=== PATIENT | male | born 1955 | race Caucasian/White ===

== ENCOUNTER 2021-07-31 11:10 | Inpatient (IN) | payer OTHER ==
[~2021-07-31] VITALS: Ht 188 cm; Wt 92.6 kg
[2021-07-31] VITALS (18 sets, daily range): BP systolic 95–112; BP diastolic 47–74
--- NOTE | 2021-07-31 11:30 | NUR ---
Around 1100, patient admitted to ICU by EMS with a blood pressure of 98/47, heart rate of 63, temp 97.6, respiratory rate of 27 and O2 saturation of 97%. No belongings present with patient upon admission. Orders received, will continue to monitor.
[2021-07-31 12:07] LABS: BASE EXCESS ABG 3 mmol/L (-3-3); HCO3 ABG 27 mmol/L (21-28); PCO2 ABG 39 mmHg (35-46); PO2 ABG 91 mmHg (65-108); SAT O2 ABG 97 % (92-99)
[2021-07-31 12:09] LABS: FIO2 ABG 100/AC24 450 100 +8
[2021-07-31] MEDS ORDERED: MIDAZOLAM HCL/PF 5 MG/5 ML VIAL. IVP PRN (12:15)
[2021-07-31] MEDS ORDERED: POLYVINYL ALCOHOL 1.4% OPHTH SOLUTION 15ML BOTTLE. OU PRN (12:15)
[2021-07-31] MEDS ORDERED: VECURONIUM BOLUS 10 MG VIAL. IV PRN (12:15)
[2021-07-31] MEDS ORDERED: IV NORMAL SALINE 500ML BAG 500 ML IV PRN (12:15)
[2021-07-31] MEDS ORDERED: ATROPINE 0.5 MG/5 ML DISP.SYRINGE. IV PRN (12:15)
--- NOTE | 2021-07-31 12:16 | CONS ---
DATE OF CONSULTATION: 07/31/2021 PULMONARY CONSULTATION ATTENDING PHYSICIAN: Lawson Dangelo MD REASON FOR CONSULTATION: Respiratory failure, COVID-19 pneumonia, ARDS. HISTORY OF PRESENT ILLNESS: The patient is a 65-year-old male who has past medical history of pneumonia and possible fibrosis. The patient was brought into [facility] Emergency Room with complaint of shortness of breath and a cough and loss of taste and smell with nausea and vomiting. He was placed on a nonrebreather mask due to severity of hypoxia. He had bilateral infiltrates on his chest x-ray. His BNP was also elevated. The patient left against medical advice at that time. He then returned to the Emergency Department later. He was noted to be severely hypoxic with room air saturation of 61%. The patient was initially tried on noninvasive ventilation and was subsequently intubated. He waited for 24 hours before finding a bed at [facility] ICU. The patient is now transferred to our facility. He was tested positive for COVID. His chest x-ray reviewed, it shows diffuse bilateral interstitial infiltrates. I also reviewed the patient's CT chest, which was done on 07/29. The patient has diffuse bilateral infiltrates. There are areas of emphysematous changes, worse in the upper lobes. There are some ground glass infiltrates. There is some pleural thickening on the right side. There is tiny pleural effusion on the right lower lobe. There is some component of fibrosis. No old x-rays are available on him. Consultation requested for further evaluation and management. His ABGs are pending. PAST MEDICAL HISTORY: Significant for pneumonia. Questionable underlying fibrosis. SURGERIES: None. ALLERGIES: None reported. REVIEW OF SYSTEMS: Unable to obtain from the patient. MEDICATIONS: Upon transfer were reviewed. SOCIAL HISTORY: Unable to obtain from the patient. PHYSICAL EXAMINATION: His vital signs were reviewed. His blood pressure in the 110s. Pulse ox is 98%. Currently sedated on mechanical ventilation. He is on assist control rate of 20, tidal volume 450, 100% FiO2 and 8 of PEEP. Visual exam done due to COVID-19. No paradoxical breathing. He is synchronized with the ventilator. No leg edema. No skin rash. LABORATORY DATA: Reviewed. His white cell count 18.4, hemoglobin 19.1 and platelets are normal. Total protein 5.8. His potassium 5.2, sodium 123. ABGs with a pH of 7.43, pCO2 of 43 and a pO2 of 72. IMPRESSION: 1. Acute hypoxic respiratory failure secondary to COVID-19 pneumonia, acute respiratory distress syndrome and possible underlying fibrosis and emphysema. 2. Abnormal CT chest with diffuse pulmonary infiltrates with some ground glass infiltrates as well as evidence of the emphysema. May have a component of underlying fibrosis as well. No pulmonary embolism seen. 3. Hyponatremia. 4. Suspected underlying severe chronic obstructive pulmonary disease. 5. COVID-19 viral pneumonia. RECOMMENDATIONS: 1. Discussed with respiratory therapist and RN. We will continue with present assist control mode. We will keep the tidal volume low. The patient is at high risk for pneumothorax due to emphysematous blebs, especially in the upper lobes. 2. Follow ABGs and make necessary adjustments. 3. Empiric antibiotics. 4. Dexamethasone. 5. SubQ heparin for DVT prophylaxis. 6. Stress ulcer prophylaxis. 7. The patient is too late for remdesivir. 8. The patient is critically ill. Prognosis is guarded. Chart reviewed, imaging studies reviewed. Total critical care time [address]: Miriam TID: [id number]
[2021-07-31 12:56] LABS: BASO # 0.1 x10^3/uL (0.0-0.2); BASO % 1 % (0-3); EOS % 0 % (0-3); HEMATOCRIT 39.5 % (36.0-47.0); HEMOGLOBIN 13.1 g/dL (12.0-15.5); LYMPH # 0.5 x10^3/uL (1.0-4.8); LYMPH % 3 % (24-48); MEAN CORPUSCULAR HEMOGLOBIN 29 pg (25-35); MEAN CORPUSCULAR HGB CONC 33 g/dL (31-37); MEAN CORPUSCULAR VOLUME 89 fL (79-100); MONO % 7 % (0-9); NEUT # 13.3 x10^3/uL (1.8-7.7); NEUT % 89 % (31-73); PLATELET COUNT 424 x10^3/uL (140-400); RED BLOOD COUNT 4.47 x10^6/uL (3.50-5.40); RED CELL DISTRIBUTION WIDTH 13.5 % (11.5-14.5); WHITE BLOOD COUNT 14.9 x10^3/uL (4.0-11.0)
[2021-07-31 13:21] LABS: CALCIUM 7.6 mg/dL (8.5-10.1); CREATININE 0.8 mg/dL (0.6-1.0); GFR 72.4; POTASSIUM 4.4 mmol/L (3.5-5.1)
[2021-07-31 13:31] LABS: % BANDS 5 % (0-9); % LYMPHS 2 % (24-48); % MONOS 9 % (0-10); % SEGS 84 % (35-66); PLT ESTIMATE INCREASED (ADEQUATE)
[2021-07-31] MEDS: MIDAZOLAM 100mg/100ml NS BAG 100 ML IV PRN (14:24)
[2021-07-31] MEDS: FAMOTIDINE 20 MG/2 ML VIAL IVP SCH ×2 (14:25→20:36)
[2021-07-31] MEDS: HEPARIN for SUB-Q USE 5,000 UNIT/ML VIAL. SQ SCH ×2 (14:25→20:38)
[2021-07-31] MEDS ORDERED: PIP/TAZO PER PHARMACY MC PRN (15:15)
[2021-07-31] MEDS: PROPOFOL 100 ML IV PRN ×2 (15:39→19:57)
[2021-07-31] MEDS: fentaNYL HIGH DOSE PCA 55 ML IV PRN (16:19)
[2021-07-31] MEDS: PIPERACILLIN/TAZOBACTAM 3.375 GM in IV NORMAL SALINE 50ML 50 ML IV SCH (18:22)
[2021-07-31] MEDS ORDERED: FAMOTIDINE 20 MG/2 ML VIAL IVP SCH (21:00)
[2021-08-01] VITALS (35 sets, daily range): BP systolic 91–110; BP diastolic 51–67
[2021-08-01] MEDS: PIPERACILLIN/TAZOBACTAM 3.375 GM in IV NORMAL SALINE 50ML 50 ML IV SCH ×5 (00:30→23:57)
[2021-08-01] MEDS: MIDAZOLAM 100mg/100ml NS BAG 100 ML IV PRN ×3 (00:50→23:55)
[2021-08-01] MEDS: PROPOFOL 100 ML IV PRN ×4 (02:24→20:56)
[2021-08-01] MEDS: HEPARIN for SUB-Q USE 5,000 UNIT/ML VIAL. SQ SCH ×3 (06:08→20:54)
--- NOTE | 2021-08-01 06:22 | RAD ---
Single view chest dated 08/01/2021 6:17 AM: COMPARISON: 07/31/2021 Clinical Indication: Intubation. Findings: Single upright portable exam of the chest was performed. Heart size is mildly enlarged. Endotracheal tube, nasogastric tube and right internal jugular catheter in place, unchanged. Complete opacificatio n the left lung, increased from prior study. There is patchy airspace disease in the right, unchanged . No pneumothorax. IMPRESSION: 1. Complete opacification of the left hemithorax, new from prior study. This could be related to muco us plugging or developing pleural effusion or interval progression of asymmetric airspace disease. Mi lder airspace disease on the right, stable. 2. Stable position of tubes and lines. Electronically signed by: Jose Santos MD (08/01/2021 6:19 AM) XAVIER
[2021-08-01 08:07] LABS: BASE EXCESS ABG 2 mmol/L (-3-3); HCO3 ABG 28 mmol/L (21-28); PCO2 ABG 51 mmHg (35-46); PO2 ABG 105 mmHg (65-108); SAT O2 ABG 98 % (92-99)
[2021-08-01] MEDS: FAMOTIDINE 20 MG/2 ML VIAL IVP SCH ×2 (08:21→20:53)
[2021-08-01] MEDS: DEXAMETHASONE SOD PHOS 4 MG/ML VIAL IVP SCH (08:22)
--- NOTE | 2021-08-01 09:47 | PN ---
DATE: 08/01/2021 SUBJECTIVE: The patient is continued to be sedated on Versed, Precedex and propofol. He is intubated, mechanically ventilated, maintaining his oxygen saturation at 96% on FiO2 of 100%. PHYSICAL EXAMINATION: GENERAL: When I examined him, he looked well and was clearly in no apparent respiratory distress. There is no pallor, jaundice, cyanosis. No lymphadenopathy, no thyromegaly, no jugular venous distention. No lower limb edema. VITAL SIGNS: His heart rate was 62, blood pressure was 98/59, temperature was 98, respiratory rate was 24 and oxygen saturation was 96% on FiO2 of 100%. HEAD, EYES, EARS, NOSE AND THROAT: Normocephalic, atraumatic. He has orotracheal and orogastric tube in place. Has a triple lumen catheter in the right internal jugular vein. HEART: Showed normal first and second heart sounds. No gallop or murmur. CHEST: Shows central trachea, equal bilateral chest expansion air entry, vesicular breath sounds. I could not appreciate any crepitation or rhonchi. ABDOMEN: Distended, soft, nontender. NEUROLOGIC: He is heavily sedated. His intake and output are incompletely recorded. LABORATORY DATA: Showed a white cell count 14,900, hemoglobin 13, hematocrit 39, MCV 89 and platelet count 424,000 with an automated differential showed 89% polymorphs, 3% lymphocytes, 7% monocytes. His chemistry showed his serum sodium has improved further to 131 mEq per liter, potassium 4.4, chloride 95, bicarbonate 29, anion gap of 7, BUN 19, creatinine 0.8. Estimated GFR was 72 mL per minute. His glucose was 131 and calcium was 7.6. His chest x-ray showed the patient has complete opacification of the left hemithorax, new from prior study, this could be related to mucus plugging or developing pleural effusion or interval progression of the asymmetric airspace disease; mild airspace disease on the right side, stable; stable position of the tubes and lines. ASSESSMENT: In summary, this is a 65-year-old male patient with: 1. Acute hypoxic respiratory failure. 2. COVID-19 pneumonia with possible superimposed community-acquired pneumonia. 3. Adult respiratory distress syndrome. 4. Possible underlying emphysema and pulmonary fibrosis. 5. Severe hyponatremia that is improving. 6. Chronic obstructive pulmonary disease. PLAN: Obviously to continue with sedation. Continue with IV antibiotic in the form of piperacillin, tazobactam. Continue with dexamethasone. Continue with heparin for DVT prophylaxis. KWAN DR: Vannessa TID: [id number]
[2021-08-01 09:53] LABS: FIO2 ABG 100% AC 24 400 7
--- NOTE | 2021-08-01 10:20 | PDOC ---
PULMONARY PROGRESS NOTES DATE: 08/01/21 TIME: 10:15 Subjective Remains on assist control mode. Oxygen requirement mildly improved. Sedated Vitals Vital Signs Date Time Temp Pulse Resp B/P (MAP) Pulse Ox O2 Delivery O2 Flow Rate FiO2 08/01/21 07:58 100 Ventilator 08/01/21 06:00 62 24 98/59 08/01/21 04:00 98.0 98.0 Comments Visual exam done due to COVID-19. No paradoxical breathing. No skin rash no leg edema Labs Laboratory Tests Test 07/31/21 11:50 07/31/21 12:45 07/31/21 18:10 08/01/21 07:55 O2 Saturation 97 % (92-99) 98 % (92-99) Arterial Blood pH 7.45 (7.35-7.45) 7.36 (7.35-7.45) Arterial Blood pCO2 at Patient Temp 39 mmHg (35-46) 51 mmHg (35-46) Arterial Blood pO2 at Patient Temp 91 mmHg (65-108) 105 mmHg (65-108) Arterial Blood HCO3 27 mmol/L (21-28) 28 mmol/L (21-28) Arterial Blood Base Excess 3 mmol/L (-3-3) 2 mmol/L (-3-3) FiO2 100/ac24 450 100 +8 100% ac 24 400 7 White Blood Count 14.9 x10^3/uL (4.0-11.0) Red Blood Count 4.47 x10^6/uL (3.50-5.40) Hemoglobin 13.1 g/dL (12.0-15.5) Hematocrit 39.5 % (36.0-47.0) Mean Corpuscular Volume 89 fL (79-100) Mean Corpuscular Hemoglobin 29 pg (25-35) Mean Corpuscular Hemoglobin Concent 33 g/dL (31-37) Red Cell Distribution Width 13.5 % (11.5-14.5) Platelet Count 424 x10^3/uL (140-400) Neutrophils (%) (Auto) 89 % (31-73) Lymphocytes (%) (Auto) 3 % (24-48) Monocytes (%) (Auto) 7 % (0-9) Eosinophils (%) (Auto) 0 % (0-3) Basophils (%) (Auto) 1 % (0-3) Neutrophils # (Auto) 13.3 x10^3/uL (1.8-7.7) Lymphocytes # (Auto) 0.5 x10^3/uL (1.0-4.8) Monocytes # (Auto) 1.0 x10^3/uL (0.0-1.1) Eosinophils # (Auto) 0.0 x10^3/uL (0.0-0.7) Basophils # (Auto) 0.1 x10^3/uL (0.0-0.2) Segmented Neutrophils % 84 % (35-66) Band Neutrophils % 5 % (0-9) Lymphocytes % 2 % (24-48) Monocytes % 9 % (0-10) Platelet Estimate Increased (ADEQUATE) Large Platelets Occ Sodium Level 131 mmol/L (136-145) Potassium Level 4.4 mmol/L (3.5-5.1) Chloride Level 95 mmol/L (98-107) Carbon Dioxide Level 29 mmol/L (21-32) Anion Gap 7 (6-14) Blood Urea Nitrogen 19 mg/dL (7-20) Creatinine 0.8 mg/dL (0.6-1.0) Estimated GFR (Cockcroft-Gault) 72.4 Glucose Level 131 mg/dL (70-99) Calcium Level 7.6 mg/dL (8.5-10.1) Glucose (Fingerstick) 140 mg/dL (70-99) Laboratory Tests Test 07/31/21 11:50 07/31/21 12:45 07/31/21 18:10 08/01/21 07:55 O2 Saturation 97 % (92-99) 98 % (92-99) Arterial Blood pH 7.45 (7.35-7.45) 7.36 (7.35-7.45) Arterial Blood pCO2 at Patient Temp 39 mmHg (35-46) 51 mmHg (35-46) Arterial Blood pO2 at Patient Temp 91 mmHg (65-108) 105 mmHg (65-108) Arterial Blood HCO3 27 mmol/L (21-28) 28 mmol/L (21-28) Arterial Blood Base Excess 3 mmol/L (-3-3) 2 mmol/L (-3-3) FiO2 100/ac24 450 100 +8 100% ac 24 400 7 White Blood Count 14.9 x10^3/uL (4.0-11.0) Red Blood Count 4.47 x10^6/uL (3.50-5.40) Hemoglobin 13.1 g/dL (12.0-15.5) Hematocrit 39.5 % (36.0-47.0) Mean Corpuscular Volume 89 fL (79-100) Mean Corpuscular Hemoglobin 29 pg (25-35) Mean Corpuscular Hemoglobin Concent 33 g/dL (31-37) Red Cell Distribution Width 13.5 % (11.5-14.5) Platelet Count 424 x10^3/uL (140-400) Neutrophils (%) (Auto) 89 % (31-73) Lymphocytes (%) (Auto) 3 % (24-48) Monocytes (%) (Auto) 7 % (0-9) Eosinophils (%) (Auto) 0 % (0-3) Basophils (%) (Auto) 1 % (0-3) Neutrophils # (Auto) 13.3 x10^3/uL (1.8-7.7) Lymphocytes # (Auto) 0.5 x10^3/uL (1.0-4.8) Monocytes # (Auto) 1.0 x10^3/uL (0.0-1.1) Eosinophils # (Auto) 0.0 x10^3/uL (0.0-0.7) Basophils # (Auto) 0.1 x10^3/uL (0.0-0.2) Segmented Neutrophils % 84 % (35-66) Band Neutrophils % 5 % (0-9) Lymphocytes % 2 % (24-48) Monocytes % 9 % (0-10) Platelet Estimate Increased (ADEQUATE) Large Platelets Occ Sodium Level 131 mmol/L (136-145) Potassium Level 4.4 mmol/L (3.5-5.1) Chloride Level 95 mmol/L (98-107) Carbon Dioxide Level 29 mmol/L (21-32) Anion Gap 7 (6-14) Blood Urea Nitrogen 19 mg/dL (7-20) Creatinine 0.8 mg/dL (0.6-1.0) Estimated GFR (Cockcroft-Gault) 72.4 Glucose Level 131 mg/dL (70-99) Calcium Level 7.6 mg/dL (8.5-10.1) Glucose (Fingerstick) 140 mg/dL (70-99) Comments Chest x-ray reviewed 08/01/2019 . There is worsening infiltrates and volume loss in the left lung. Likely combination of parenchymal lung disease and some component of mucous plugging. Impression . 1. Acute hypoxic respiratory failure secondary to COVID-19 pneumonia, acute respiratory distress syndrome and possible underlying fibrosis and emphysema. 2. Abnormal CT chest with diffuse pulmonary infiltrates with some ground glass infiltrates as well as evidence of the emphysema. May have a component of underlying fibrosis as well. No pulmonary embolism seen. May also have pneumatoceles related to COVID-19 3. Hyponatremia. 4. Suspected underlying severe chronic obstructive pulmonary disease. 5. COVID-19 viral pneumonia. Plan . Updated 08/01/2019 1. Discussed with respiratory therapist and RN. We will continue with present assist control mode. We will keep the tidal volume low. The patient is at high risk for pneumothorax due to emphysematous blebs, especially in the upper lobes. 2. Follow ABGs and make necessary adjustments. 3. Empiric antibiotics. 4. Dexamethasone. 5. SubQ heparin for DVT prophylaxis. 6. Stress ulcer prophylaxis. 7. The patient is too late for remdesivir. 8. Empiric antibiotics 9. chest x-ray from today reviewed. There is some component of mucous plugging in addition to the worsening parenchymal infiltrates. We will do tracheal suct ioning. And monitor chest x-rays. May consider bronchoscopy in future Discussed with RN and RT and Dr. Dangelo Total critical care time 30 mi RECOMMENDATIONS: 1. Discussed with respiratory therapist and RN. We will continue with present assist control mode. We will keep the tidal volume low. The patient is at high risk for pneumothorax due to emphysematous blebs, especially in the upper lobes. 2. Follow ABGs and make necessary adjustments. 3. Empiric antibiotics. 4. Dexamethasone. 5. SubQ heparin for DVT prophylaxis. 6. Stress ulcer prophylaxis. 7. The patient is too late for remdesivir. 8. The patient is critically ill. Prognosis is guarded. Chart reviewed, imaging studies reviewed. Total critical care time 39 minutes. MICHELLE KNOWLES MD Aug 01, 2021 10:20
--- NOTE | 2021-08-01 11:35 | NUR ---
SS following for discharge planning. SS reviewed pt chart and discussed with pt RN. Pt is currently on the vent at 90%. COVID19 positive. Pt on IV Decadron and IV Zosyn. Pt on Versed, Propofol, and Fentanyl. Not stable. SS will continue to follow for discharge planning. Addendum: 08/01/21 at 1137 by MARLENA NEELY SS Pt is from home.
--- NOTE | 2021-08-01 11:57 | HP ---
DATE OF SERVICE: 08/01/2021 ADMIT DATE: 07/31/2021 HISTORY OF PRESENT ILLNESS: The patient is a 65-year-old male patient who was seen at the Emergency Room of [facility] on 07/29/2021 with a complaint of shortness of breath. He stated also he has a nonproductive cough, loss of taste and smell together with nausea and vomiting. He was placed on a nonrebreather mask and due to hypoxia, he had bilateral infiltrate with hyponatremia, lactic acidosis and apparently he was also in congestive heart failure with markedly elevated BNP and leukocytosis indicating sepsis. The patient chose to sign against medical advice at that time; however, he returned to the Emergency Department with exacerbation of his symptoms; however, he denied any chest pain. By the time he arrived to the Emergency Room, his oxygen saturation was only 61%. He was again placed on a nonrebreather mask and his oxygen saturation has risen to 92-93%. He was extensively investigated in the Emergency Room and has had lab work and imaging studies. His lab work showed that he has marked leukocytosis with a white cell count of 19,000, thrombocytosis, arterial blood gases. On the showed a pH of 7.45, pCO2 of 31, pO2 of 58, bicarbonate 22 and oxygen saturation was 92% on FiO2 of 100%. On 07/30/2021, arterial blood gas showed a pH of 7.21, a pCO2 of 72, pO2 of 71, bicarbonate 29, oxygen saturation was 89% on FiO2 of 95%. His chemistry showed he has severe hyponatremia with a serum sodium of only 114 mEq per liter with lactic acidosis; however, his TSH and serum cortisol were well within the normal range. Apparently, his condition has steadily worsened and he was intubated and eventually he was transferred to [facility] ICU to continue mechanical ventilation. He has tested positive for COVID and his chest x-ray showed diffuse bilateral interstitial infiltrate. The CT scan of the chest done on 07/29 also showed diffuse bilateral infiltrate. There are areas of edematous changes, worse in the upper lobes. There are some ground glass infiltrates and pleural thickening on the right side. Tiny pleural effusion on the right lower lobe. There is some component of fibrosis; however, there are no old x-rays available for comparison. PAST SURGICAL HISTORY: Significant for chronic obstructive pulmonary disease. FAMILY HISTORY: Noncontributory. SOCIAL HISTORY: He apparently was a heavy smoker and also a heavy alcohol drinker. ALLERGIES: He has no known drug allergies. MEDICATIONS: The patient was on azithromycin 250 mg once a day, Augmentin 875/125 one tablet twice a day. He was also on albuterol sulfate and dexamethasone. He was sent home and he decided to leave against medical advice on 07/29. PHYSICAL EXAMINATION: GENERAL: On arrival to the Emergency Room, he was tachypneic, but there is no pallor, jaundice, cyanosis, no lymphadenopathy, no thyromegaly, no jugular venous distention. No lower limb edema. VITAL SIGNS: His heart rate was 94, blood pressure was 143/81, temperature was 97.3, respiratory rate 24, oxygen saturation was actually 66% on room air, improved to 95% on 15 liters of oxygen. HEAD, EYES, EARS, NOSE, AND THROAT: Normocephalic, atraumatic. NECK: Supple. HEART: Showed normal first and second heart sounds. No gallop, rub or murmur. CHEST: Shows central trachea, equal bilateral chest expansion, air entry, vesicular breath sounds. I could not appreciate any crepitation or rhonchi. ABDOMEN: Distended, soft, nontender. NEUROLOGIC: He was grossly intact. He was initially put on BiPAP machine and he was eventually intubated on 07/30/2021 and was transferred to [facility] ICU. LABORATORY DATA: On admission showed a white cell count was 19,000, hemoglobin 15.9, hematocrit 46, MCV 90 and platelet count 491,000. His arterial blood gases on arrival initially showed a pH of 7.45, pCO2 of 31, pO2 of 58, bicarbonate 22 and oxygen saturation was 92% on FiO2 of 100%. On the day he was transferred to [facility], his pH was 7.43, a pCO2 of 43, pO2 of 80, bicarbonate 29, oxygen saturation was 96% on FiO2 of 80%. His chemistry showed that his sodium has steadily improved from 114-125, potassium was 5.2, chloride 89, bicarbonate 24, anion gap of 12, BUN 18, creatinine 0.8. Estimated GFR was 97 mL per minute. Her glucose was 119 and calcium was 7.2. While in the Emergency Room of [facility], he was treated with ceftriaxone, Zithromax as well as dexamethasone and Lovenox. He was also sedated with propofol, fentanyl and Versed as well as Precedex. He was admitted to the ICU with acute hypoxic respiratory failure, COVID-19 pneumonia, severe hyponatremia, severe protein-calorie malnutrition with serum albumin is only 1.9, questionable underlying chronic obstructive pulmonary disease. VEL/MANUELA DR: Vannessa TID: [id number]
[2021-08-01] MEDS: fentaNYL HIGH DOSE PCA 55 ML IV PRN (17:30)
[2021-08-01] MEDS ORDERED: DEXTROSE 50% 25 GM / 50ML DISP.SYRIN. IV PRN (23:00)
[2021-08-02] VITALS (30 sets, daily range): BP systolic 85–113; BP diastolic 52–65
--- NOTE | 2021-08-02 04:00 | RAD ---
Single view chest dated 08/02/2021 3:56 AM: COMPARISON: 08/01/2021 Clinical Indication: Intubation. Findings: Single upright portable exam of the chest was performed. Endotracheal tube, nasogastric tube and righ t internal jugular catheter in place, unchanged. Heart and mediastinal contours are stable. There is widespread airspace disease throughout both lungs, somewhat increased on the right and somewhat impro rocky on the left. Blunting of left costophrenic sulcus. No pneumothorax. IMPRESSION: 1. Widespread airspace disease, mildly increased on the right and somewhat improved on the left. 2. Stable position of tubes and lines. Electronically signed by: Jose Santos MD (08/02/2021 3:57 AM) [facility]
[2021-08-02] MEDS: PROPOFOL 100 ML IV PRN ×4 (04:30→21:46)
[2021-08-02 05:03] LABS: HEMATOCRIT 40.3 % (36.0-47.0); HEMOGLOBIN 13.3 g/dL (12.0-15.5); RED BLOOD COUNT 4.45 x10^6/uL (3.50-5.40); RED CELL DISTRIBUTION WIDTH 14.1 % (11.5-14.5); WHITE BLOOD COUNT 11.5 x10^3/uL (4.0-11.0)
[2021-08-02] MEDS: HEPARIN for SUB-Q USE 5,000 UNIT/ML VIAL. SQ SCH ×3 (05:49→21:44)
[2021-08-02] MEDS: PIPERACILLIN/TAZOBACTAM 3.375 GM in IV NORMAL SALINE 50ML 50 ML IV SCH ×3 (05:49→18:34)
[2021-08-02 05:52] LABS: ALBUMIN 1.5 g/dL (3.4-5.0); ALBUMIN/GLOBULIN RATIO 0.3 (1.0-1.7); CALCIUM 7.9 mg/dL (8.5-10.1); CREATININE 0.8 mg/dL (0.6-1.0); GFR 72.4; POTASSIUM 4.4 mmol/L (3.5-5.1); TOTAL BILIRUBIN 0.6 mg/dL (0.2-1.0)
[2021-08-02] MEDS: INSULIN LISPRO 300 UNITS/3 ML VIAL. SQ SCH ×3 (06:00→18:00)
[2021-08-02 08:48] LABS: BASE EXCESS ABG 3 mmol/L (-3-3); HCO3 ABG 30 mmol/L (21-28); PCO2 ABG 56 mmHg (35-46); PO2 ABG 79 mmHg (65-108); SAT O2 ABG 95 % (92-99)
[2021-08-02 08:51] LABS: FIO2 ABG 80
[2021-08-02] MEDS: DEXAMETHASONE SOD PHOS 4 MG/ML VIAL IVP SCH (09:43)
[2021-08-02] MEDS: FAMOTIDINE 20 MG/2 ML VIAL IVP SCH ×2 (09:43→21:42)
--- NOTE | 2021-08-02 10:06 | PDOC ---
PULMONARY PROGRESS NOTES DATE: 08/02/21 TIME: 10:05 Subjective Remains on assist control mode. Oxygen requirement mildly improved. Sedated Vitals Vital Signs Date Time Temp Pulse Resp B/P (MAP) Pulse Ox O2 Delivery O2 Flow Rate FiO2 08/02/21 09:02 65 24 101/58 98 Ventilator 08/02/21 07:00 97.7 97.7 Comments Visual exam done due to COVID-19. No paradoxical breathing. No skin rash no leg edema Labs Laboratory Tests Test 07/31/21 11:50 07/31/21 12:45 07/31/21 18:10 08/01/21 07:55 O2 Saturation 97 % (92-99) 98 % (92-99) Arterial Blood pH 7.45 (7.35-7.45) 7.36 (7.35-7.45) Arterial Blood pCO2 at Patient Temp 39 mmHg (35-46) 51 mmHg (35-46) Arterial Blood pO2 at Patient Temp 91 mmHg (65-108) 105 mmHg (65-108) Arterial Blood HCO3 27 mmol/L (21-28) 28 mmol/L (21-28) Arterial Blood Base Excess 3 mmol/L (-3-3) 2 mmol/L (-3-3) FiO2 100/ac24 450 100 +8 100% ac 24 400 7 White Blood Count 14.9 x10^3/uL (4.0-11.0) Red Blood Count 4.47 x10^6/uL (3.50-5.40) Hemoglobin 13.1 g/dL (12.0-15.5) Hematocrit 39.5 % (36.0-47.0) Mean Corpuscular Volume 89 fL (79-100) Mean Corpuscular Hemoglobin 29 pg (25-35) Mean Corpuscular Hemoglobin Concent 33 g/dL (31-37) Red Cell Distribution Width 13.5 % (11.5-14.5) Platelet Count 424 x10^3/uL (140-400) Neutrophils (%) (Auto) 89 % (31-73) Lymphocytes (%) (Auto) 3 % (24-48) Monocytes (%) (Auto) 7 % (0-9) Eosinophils (%) (Auto) 0 % (0-3) Basophils (%) (Auto) 1 % (0-3) Neutrophils # (Auto) 13.3 x10^3/uL (1.8-7.7) Lymphocytes # (Auto) 0.5 x10^3/uL (1.0-4.8) Monocytes # (Auto) 1.0 x10^3/uL (0.0-1.1) Eosinophils # (Auto) 0.0 x10^3/uL (0.0-0.7) Basophils # (Auto) 0.1 x10^3/uL (0.0-0.2) Segmented Neutrophils % 84 % (35-66) Band Neutrophils % 5 % (0-9) Lymphocytes % 2 % (24-48) Monocytes % 9 % (0-10) Platelet Estimate Increased (ADEQUATE) Large Platelets Occ Sodium Level 131 mmol/L (136-145) Potassium Level 4.4 mmol/L (3.5-5.1) Chloride Level 95 mmol/L (98-107) Carbon Dioxide Level 29 mmol/L (21-32) Anion Gap 7 (6-14) Blood Urea Nitrogen 19 mg/dL (7-20) Creatinine 0.8 mg/dL (0.6-1.0) Estimated GFR (Cockcroft-Gault) 72.4 Glucose Level 131 mg/dL (70-99) Calcium Level 7.6 mg/dL (8.5-10.1) Glucose (Fingerstick) 140 mg/dL (70-99) Test 08/02/21 04:56 08/02/21 08:00 White Blood Count 11.5 x10^3/uL (4.0-11.0) Red Blood Count 4.45 x10^6/uL (3.50-5.40) Hemoglobin 13.3 g/dL (12.0-15.5) Hematocrit 40.3 % (36.0-47.0) Mean Corpuscular Volume 91 fL (79-100) Mean Corpuscular Hemoglobin 30 pg (25-35) Mean Corpuscular Hemoglobin Concent 33 g/dL (31-37) Red Cell Distribution Width 14.1 % (11.5-14.5) Platelet Count 399 x10^3/uL (140-400) Sodium Level 136 mmol/L (136-145) Potassium Level 4.4 mmol/L (3.5-5.1) Chloride Level 102 mmol/L (98-107) Carbon Dioxide Level 31 mmol/L (21-32) Anion Gap 3 (6-14) Blood Urea Nitrogen 21 mg/dL (7-20) Creatinine 0.8 mg/dL (0.6-1.0) Estimated GFR (Cockcroft-Gault) 72.4 BUN/Creatinine Ratio 26 (6-20) Glucose Level 97 mg/dL (70-99) Calcium Level 7.9 mg/dL (8.5-10.1) Total Bilirubin 0.6 mg/dL (0.2-1.0) Aspartate Amino Transf (AST/SGOT) 57 U/L (15-37) Alanine Aminotransferase (ALT/SGPT) 39 U/L (14-59) Alkaline Phosphatase 97 U/L (46-116) Total Protein 6.0 g/dL (6.4-8.2) Albumin 1.5 g/dL (3.4-5.0) Albumin/Globulin Ratio 0.3 (1.0-1.7) O2 Saturation 95 % (92-99) Arterial Blood pH 7.34 (7.35-7.45) Arterial Blood pCO2 at Patient Temp 56 mmHg (35-46) Arterial Blood pO2 at Patient Temp 79 mmHg (65-108) Arterial Blood HCO3 30 mmol/L (21-28) Arterial Blood Base Excess 3 mmol/L (-3-3) FiO2 80 Laboratory Tests Test 08/02/21 04:56 08/02/21 08:00 White Blood Count 11.5 x10^3/uL (4.0-11.0) Red Blood Count 4.45 x10^6/uL (3.50-5.40) Hemoglobin 13.3 g/dL (12.0-15.5) Hematocrit 40.3 % (36.0-47.0) Mean Corpuscular Volume 91 fL (79-100) Mean Corpuscular Hemoglobin 30 pg (25-35) Mean Corpuscular Hemoglobin Concent 33 g/dL (31-37) Red Cell Distribution Width 14.1 % (11.5-14.5) Platelet Count 399 x10^3/uL (140-400) Sodium Level 136 mmol/L (136-145) Potassium Level 4.4 mmol/L (3.5-5.1) Chloride Level 102 mmol/L (98-107) Carbon Dioxide Level 31 mmol/L (21-32) Anion Gap 3 (6-14) Blood Urea Nitrogen 21 mg/dL (7-20) Creatinine 0.8 mg/dL (0.6-1.0) Estimated GFR (Cockcroft-Gault) 72.4 BUN/Creatinine Ratio 26 (6-20) Glucose Level 97 mg/dL (70-99) Calcium Level 7.9 mg/dL (8.5-10.1) Total Bilirubin 0.6 mg/dL (0.2-1.0) Aspartate Amino Transf (AST/SGOT) 57 U/L (15-37) Alanine Aminotransferase (ALT/SGPT) 39 U/L (14-59) Alkaline Phosphatase 97 U/L (46-116) Total Protein 6.0 g/dL (6.4-8.2) Albumin 1.5 g/dL (3.4-5.0) Albumin/Globulin Ratio 0.3 (1.0-1.7) O2 Saturation 95 % (92-99) Arterial Blood pH 7.34 (7.35-7.45) Arterial Blood pCO2 at Patient Temp 56 mmHg (35-46) Arterial Blood pO2 at Patient Temp 79 mmHg (65-108) Arterial Blood HCO3 30 mmol/L (21-28) Arterial Blood Base Excess 3 mmol/L (-3-3) FiO2 80 Comments Chest x-ray reviewed 08/02/2021 Diffuse bilateral interstitial infiltrates. There is improved aeration of left upper lobe suggesting resolution of mucous plugging chest x-ray reviewed 08/01/2019 . There is worsening infiltrates and volume loss in the left lung. Likely combination of parenchymal lung disease and some component of mucous plugging. Impression . 1. Acute hypoxic respiratory failure secondary to COVID-19 pneumonia, acute respiratory distress syndrome and possible underlying fibrosis and emphysema. 2. Abnormal CT chest with diffuse pulmonary infiltrates with some ground glass infiltrates as well as evidence of the emphysema. May have a component of underlying fibrosis as well. No pulmonary embolism seen. May also have pneumatoceles related to COVID-19 3. Hyponatremia. 4. Suspected underlying severe chronic obstructive pulmonary disease. 5. COVID-19 viral pneumonia. Plan . Updated 08/02 1. Discussed with respiratory therapist and RN. We will continue with present assist control mode. We will keep the tidal volume low. The patient is at high risk for pneumothorax due to emphysematous blebs, especially in the upper lobes. 2. Follow ABGs and make necessary adjustments. 3. Empiric antibiotics. 4. Dexamethasone. 5. SubQ heparin for DVT prophylaxis. 6. Stress ulcer prophylaxis. 7. The patient is too late for remdesivir. 8. Empiric antibiotics 9. chest x-ray from today reviewed. component of mucous plugging has improved with tracheal suctioning. Bilateral diffuse interstitial infiltrates secondary to COVID pneumonia persist Discussed with RN and RT Updated 08/01/2019 1. Discussed with respiratory therapist and RN. We will continue with present assist control mode. We will keep the tidal volume low. The patient is at high risk for pneumothorax due to emphysematous blebs, especially in the upper lobes. 2. Follow ABGs and make necessary adjustments. 3. Empiric antibiotics. 4. Dexamethasone. 5. SubQ heparin for DVT prophylaxis. 6. Stress ulcer prophylaxis. 7. The patient is too late for remdesivir. 8. Empiric antibiotics 9. chest x-ray from today reviewed. There is some component of mucous plugging in addition to the worsening parenchymal infiltrates. We will do tracheal suctioning. And monitor chest x-rays. May consider bronchoscopy in future Discussed with RN and RT and Dr. Dangelo Total critical care time 30 mi RECOMMENDATIONS: 1. Discussed with respiratory therapist and RN. We will continue with present assist control mode. We will keep the tidal volume low. The patient is at high risk for pneumothorax due to emphysematous blebs, especially in the upper lobes. 2. Follow ABGs and make necessary adjustments. 3. Empiric antibiotics. 4. Dexamethasone. 5. SubQ heparin for DVT prophylaxis. 6. Stress ulcer prophylaxis. 7. The patient is too late for remdesivir. 8. The patient is critically ill. Prognosis is guarded. Chart reviewed, imaging studies reviewed. Total critical care time 39 minutes. MICHELLE KNOWLES MD Aug 02, 2021 10:06
--- NOTE | 2021-08-02 12:49 | PN ---
DATE: 08/02/2021 SUBJECTIVE: The patient continued to be sedated, intubated and mechanically ventilated. He is maintaining his oxygen saturation at 98% on FiO2 of 80%. Nursing staff did not voice any concerns that he had an eventful night. PHYSICAL EXAMINATION: GENERAL: When I examined him, he looked pale, not jaundiced, cyanosis or thyromegaly. No jugular venous distention. No limb edema. VITAL SIGNS: His heart rate was 62, blood pressure was 99/57, temperature was 97.7, respiratory rate was 16 and oxygen saturation was 98% on FiO2 of 80%. HEAD, EYES, EARS, NOSE, AND THROAT: Normocephalic, atraumatic. NECK: Supple. HEART: Normal first and second heart sounds, no gallop or murmur. CHEST: Showed central trachea with good chest expansion with air entry on the right side, reduced chest expansion with air entry on the left side. ABDOMEN: Soft, nontender. NEUROLOGIC: He is heavily sedated. LABORATORY DATA: His intake over the last 24 hours was 721, output was 1725. As of this morning, his white cell count is 11,500, hemoglobin 13, hematocrit 40, MCV 91, and anion gap was 17. His chemistry done this morning showed a serum sodium 136, potassium 4.4, chloride 102, bicarbonate 31, anion gap of 3, BUN 21, creatinine 0.8. Estimated GFR was 72 mL per minute. His glucose was 97, calcium was 7.9. Total bilirubin, AST, ALT, alkaline phosphatase were normal. Total protein was 6, albumin was 1.5. ASSESSMENT: 1. Acute hypoxic respiratory failure. 2. COVID-19 pneumonia with possible superimposed community-acquired pneumonia. 3. Possible underlying emphysema and pulmonary fibrosis. 4. Chronic obstructive pulmonary disease with questionable pulmonary fibrosis. PLAN: To continue with sedation, mechanical ventilation. Continue IV antibiotic. Continue with dexamethasone. Continue with DVT and GI prophylaxis. PARESH/ATTILA DR: Vannessa TID: [id number]
[2021-08-02] MEDS: MIDAZOLAM 100mg/100ml NS BAG 100 ML IV PRN ×2 (13:21→21:45)
--- NOTE | 2021-08-02 16:16 | NUR ---
SS following up with discharge planning. SS reviewed pt chart and discussed with pt RN. Pt is currently on the vent at 80%. COVID19 positive. Pt on IV Zosyn and IV Decadron. Pt on Versed, Propofol, and Fentanyl. Not ready. SS will continue to follow for discharge planning.
[2021-08-02] MEDS: fentaNYL HIGH DOSE PCA 55 ML IV PRN (18:51)
[2021-08-03] VITALS (24 sets, daily range): BP systolic 92–116; BP diastolic 53–70
[2021-08-03] MEDS: PIPERACILLIN/TAZOBACTAM 3.375 GM in IV NORMAL SALINE 50ML 50 ML IV SCH ×5 (01:25→23:40)
[2021-08-03] MEDS: PROPOFOL 100 ML IV PRN ×4 (03:09→22:26)
[2021-08-03 07:50] LABS: ALBUMIN 1.4 g/dL (3.4-5.0); ALBUMIN/GLOBULIN RATIO 0.3 (1.0-1.7); CALCIUM 7.8 mg/dL (8.5-10.1); CREATININE 0.8 mg/dL (0.7-1.3); GFR 97.6; POTASSIUM 4.4 mmol/L (3.5-5.1); TOTAL BILIRUBIN 0.5 mg/dL (0.2-1.0); TOTAL PROTEIN 5.6 g/dL (6.4-8.2)
[2021-08-03] MEDS: INSULIN LISPRO 300 UNITS/3 ML VIAL. SQ SCH ×4 (07:50→17:20)
--- NOTE | 2021-08-03 07:54 | NUR ---
Non administration of 0000 sliding scale insulin. Computer, printer, phone systems were down at the time. Patients blood sugar 107 at 0600. Non administered 0600 S/S insulin at that time also d/t contraindicated by lab value. Will monitor.
[2021-08-03 07:58] LABS: HEMATOCRIT 38.5 % (39.0-53.0); HEMOGLOBIN 12.7 g/dL (13.0-17.5); RED BLOOD COUNT 4.3 x10^6/uL (4.30-5.70); RED CELL DISTRIBUTION WIDTH 13.9 % (11.5-14.5); WHITE BLOOD COUNT 10.4 x10^3/uL (4.0-11.0)
--- NOTE | 2021-08-03 08:13 | RAD ---
Study: XR CHEST 1V Indication: Intubation. Comparison: 08/02/2021 Findings: Endotracheal tube tip is at the clavicles approximate 7 cm above the sabino. Enteric tube tip is to t he right of midline projecting within the stomach. Central venous catheter projects within the SVC. Redemonstration of left more so than right airspace infiltrates. Improved aeration at the infrahilar right lower lung. Slightly less confluent opacification at the subpleural right lung. There is again obscuration of the left costophrenic angle. No pneumothorax. Unchanged cardiomediastinal silhouette. Impression: 1. Support device positioning as above. 2. Similar to mildly improved bilateral airspace opacities. Electronically signed by: DOROTHY CALDERON MD (08/03/2021 8:11 AM) [facility]
[2021-08-03 09:50] LABS: BASE EXCESS ABG 4 mmol/L (-3-3); HCO3 ABG 28 mmol/L (21-28); PCO2 ABG 44 mmHg (35-46); PO2 ABG 92 mmHg (65-108); SAT O2 ABG 97 % (92-99)
--- NOTE | 2021-08-03 10:10 | PDOC ---
PULMONARY PROGRESS NOTES DATE: 08/03/21 TIME: 10:09 Subjective Remains on assist control mode. Oxygen requirement mildly improved. Sedated Vitals Vital Signs Date Time Temp Pulse Resp B/P (MAP) Pulse Ox O2 Delivery O2 Flow Rate FiO2 08/03/21 09:53 99 Ventilator 08/03/21 07:00 58 23 109/59 08/03/21 00:01 98.6 98.6 Comments Visual exam done due to COVID-19. No paradoxical breathing. No skin rash no leg edema Labs Laboratory Tests Test 08/02/21 04:56 08/02/21 08:00 08/02/21 13:12 08/02/21 13:15 White Blood Count 11.5 x10^3/uL (4.0-11.0) Red Blood Count 4.45 x10^6/uL (3.50-5.40) Hemoglobin 13.3 g/dL (12.0-15.5) Hematocrit 40.3 % (36.0-47.0) Mean Corpuscular Volume 91 fL (79-100) Mean Corpuscular Hemoglobin 30 pg (25-35) Mean Corpuscular Hemoglobin Concent 33 g/dL (31-37) Red Cell Distribution Width 14.1 % (11.5-14.5) Platelet Count 399 x10^3/uL (140-400) Sodium Level 136 mmol/L (136-145) Potassium Level 4.4 mmol/L (3.5-5.1) Chloride Level 102 mmol/L (98-107) Carbon Dioxide Level 31 mmol/L (21-32) Anion Gap 3 (6-14) Blood Urea Nitrogen 21 mg/dL (7-20) Creatinine 0.8 mg/dL (0.6-1.0) Estimated GFR (Cockcroft-Gault) 72.4 BUN/Creatinine Ratio 26 (6-20) Glucose Level 97 mg/dL (70-99) Calcium Level 7.9 mg/dL (8.5-10.1) Total Bilirubin 0.6 mg/dL (0.2-1.0) Aspartate Amino Transf (AST/SGOT) 57 U/L (15-37) Alanine Aminotransferase (ALT/SGPT) 39 U/L (14-59) Alkaline Phosphatase 97 U/L (46-116) Total Protein 6.0 g/dL (6.4-8.2) Albumin 1.5 g/dL (3.4-5.0) Albumin/Globulin Ratio 0.3 (1.0-1.7) O2 Saturation 95 % (92-99) Arterial Blood pH 7.34 (7.35-7.45) Arterial Blood pCO2 at Patient Temp 56 mmHg (35-46) Arterial Blood pO2 at Patient Temp 79 mmHg (65-108) Arterial Blood HCO3 30 mmol/L (21-28) Arterial Blood Base Excess 3 mmol/L (-3-3) FiO2 80 Glucose (Fingerstick) 44 mg/dL (70-99) 83 mg/dL (70-99) Test 08/03/21 05:00 08/03/21 05:51 08/03/21 06:00 White Blood Count 10.4 x10^3/uL (4.0-11.0) Red Blood Count 4.30 x10^6/uL (4.30-5.70) Hemoglobin 12.7 g/dL (13.0-17.5) Hematocrit 38.5 % (39.0-53.0) Mean Corpuscular Volume 90 fL (79-100) Mean Corpuscular Hemoglobin 30 pg (25-35) Mean Corpuscular Hemoglobin Concent 33 g/dL (31-37) Red Cell Distribution Width 13.9 % (11.5-14.5) Platelet Count 350 x10^3/uL (140-400) Glucose (Fingerstick) 107 mg/dL (70-99) Sodium Level 143 mmol/L (136-145) Potassium Level 4.4 mmol/L (3.5-5.1) Chloride Level 107 mmol/L (98-107) Carbon Dioxide Level 34 mmol/L (21-32) Anion Gap 2 (6-14) Blood Urea Nitrogen 23 mg/dL (8-26) Creatinine 0.8 mg/dL (0.7-1.3) Estimated GFR (Cockcroft-Gault) 97.6 BUN/Creatinine Ratio 29 (6-20) Glucose Level 102 mg/dL (70-99) Calcium Level 7.8 mg/dL (8.5-10.1) Total Bilirubin 0.5 mg/dL (0.2-1.0) Aspartate Amino Transf (AST/SGOT) 59 U/L (15-37) Alanine Aminotransferase (ALT/SGPT) 50 U/L (16-63) Alkaline Phosphatase 107 U/L (46-116) Total Protein 5.6 g/dL (6.4-8.2) Albumin 1.4 g/dL (3.4-5.0) Albumin/Globulin Ratio 0.3 (1.0-1.7) Laboratory Tests Test 08/02/21 13:12 08/02/21 13:15 08/03/21 05:00 08/03/21 05:51 Glucose (Fingerstick) 44 mg/dL (70-99) 83 mg/dL (70-99) 107 mg/dL (70-99) White Blood Count 10.4 x10^3/uL (4.0-11.0) Red Blood Count 4.30 x10^6/uL (4.30-5.70) Hemoglobin 12.7 g/dL (13.0-17.5) Hematocrit 38.5 % (39.0-53.0) Mean Corpuscular Volume 90 fL (79-100) Mean Corpuscular Hemoglobin 30 pg (25-35) Mean Corpuscular Hemoglobin Concent 33 g/dL (31-37) Red Cell Distribution Width 13.9 % (11.5-14.5) Platelet Count 350 x10^3/uL (140-400) Test 08/03/21 06:00 Sodium Level 143 mmol/L (136-145) Potassium Level 4.4 mmol/L (3.5-5.1) Chloride Level 107 mmol/L (98-107) Carbon Dioxide Level 34 mmol/L (21-32) Anion Gap 2 (6-14) Blood Urea Nitrogen 23 mg/dL (8-26) Creatinine 0.8 mg/dL (0.7-1.3) Estimated GFR (Cockcroft-Gault) 97.6 BUN/Creatinine Ratio 29 (6-20) Glucose Level 102 mg/dL (70-99) Calcium Level 7.8 mg/dL (8.5-10.1) Total Bilirubin 0.5 mg/dL (0.2-1.0) Aspartate Amino Transf (AST/SGOT) 59 U/L (15-37) Alanine Aminotransferase (ALT/SGPT) 50 U/L (16-63) Alkaline Phosphatase 107 U/L (46-116) Total Protein 5.6 g/dL (6.4-8.2) Albumin 1.4 g/dL (3.4-5.0) Albumin/Globulin Ratio 0.3 (1.0-1.7) Comments Chest x-ray reviewed 08/02/2021 Diffuse bilateral interstitial infiltrates. There is improved aeration of left upper lobe suggesting resolution of mucous plugging chest x-ray reviewed 08/01/2019 . There is worsening infiltrates and volume loss in the left lung. Likely combination of parenchymal lung disease and some component of mucous plugging. Impression . 1. Acute hypoxic respiratory failure secondary to COVID-19 pneumonia, acute respiratory distress syndrome and possible underlying fibrosis and emphysema. 2. Abnormal CT chest with diffuse pulmonary infiltrates with some ground glass infiltrates as well as evidence of the emphysema. May have a component of underlying fibrosis as well. No pulmonary embolism seen. May also have pneumatoceles related to COVID-19 3. Hyponatremia. 4. Suspected underlying severe chronic obstructive pulmonary disease. 5. COVID-19 viral pneumonia. Plan . Updated 08/03 1. Discussed with respiratory therapist and RN. We will continue with present assist control mode. We will keep the tidal volume low. The patient is at high risk for pneumothorax due to emphysematous blebs, especially in the upper lobes. 2. Follow ABGs and make necessary adjustments. Currently down to 80% FiO2. 3. Empiric antibiotics. 4. Dexamethasone. 5. SubQ heparin for DVT prophylaxis. 6. Stress ulcer prophylaxis. 7. The patient is too late for remdesivir. 8. Empiric antibiotics 9. chest x-ray from today reviewed 08/03/2021. component of mucous plugging has improved with tracheal suctioning. Bilateral diffuse interstitial infiltrates secondary to COVID pneumonia persist Discussed with RN and RT Updated 08/02 1. Discussed with respiratory therapist and RN. We will continue with present assist control mode. We will keep the tidal volume low. The patient is at high risk for pneumothorax due to emphysematous blebs, especially in the upper lobes. 2. Follow ABGs and make necessary adjustments. 3. Empiric antibiotics. 4. Dexamethasone. 5. SubQ heparin for DVT prophylaxis. 6. Stress ulcer prophylaxis. 7. The patient is too late for remdesivir. 8. Empiric antibiotics 9. chest x-ray from today reviewed. component of mucous plugging has improved with tracheal suctioning. Bilateral diffuse interstitial infiltrates secondary to COVID pneumonia persist Discussed with RN and RT Updated 08/01/2019 1. Discussed with respiratory therapist and RN. We will continue with present assist control mode. We will keep the tidal volume low. The patient is at high risk for pneumothorax due to emphysematous blebs, especially in the upper lobes. 2. Follow ABGs and make necessary adjustments. 3. Empiric antibiotics. 4. Dexamethasone. 5. SubQ heparin for DVT prophylaxis. 6. Stress ulcer prophylaxis. 7. The patient is too late for remdesivir. 8. Empiric antibiotics 9. chest x-ray from today reviewed. There is some component of mucous plugging in addition to the worsening parenchymal infiltrates. We will do tracheal suctioning. And monitor chest x-rays. May consider bronchoscopy in future Discussed with RN and RT and Dr. Dangelo Total critical care time 30 mi RECOMMENDATIONS: 1. Discussed with respiratory therapist and RN. We will continue with present assist control mode. We will keep the tidal volume low. The patient is at high risk for pneumothorax due to emphysematous blebs, especially in the upper lobes. 2. Follow ABGs and make necessary adjustments. 3. Empiric antibiotics. 4. Dexamethasone. 5. SubQ heparin for DVT prophylaxis. 6. Stress ulcer prophylaxis. 7. The patient is too late for remdesivir. 8. The patient is critically ill. Prognosis is guarded. Chart reviewed, imaging studies reviewed. Total critical care time 39 minutes. MICHELLE KNOWLES MD Aug 03, 2021 10:10
[2021-08-03] MEDS: FAMOTIDINE 20 MG/2 ML VIAL IVP SCH ×2 (10:26→20:56)
[2021-08-03] MEDS: HEPARIN for SUB-Q USE 5,000 UNIT/ML VIAL. SQ SCH ×3 (10:27→21:48)
[2021-08-03] MEDS: DEXAMETHASONE SOD PHOS 4 MG/ML VIAL IVP SCH (10:27)
[2021-08-03] MEDS: MIDAZOLAM 100mg/100ml NS BAG 100 ML IV PRN ×2 (10:29→17:40)
[2021-08-03 14:14] LABS: FIO2 ABG 75
--- NOTE | 2021-08-03 15:38 | NUR ---
SS following up with discharge planning. SS reviewed pt chart and discussed with pt RN. Pt is currently on the vent at 75%. COVID19 positive. Pt on IV Zosyn and IV Decadron. Pt on Versed, Propofol, and Fentanyl. Not ready. SS will continue to follow for discharge planning.
--- NOTE | 2021-08-03 16:54 | PN ---
DATE: 08/03/2021 SUBJECTIVE: The patient is continued to be heavily sedated, intubated and mechanically ventilated. He is maintaining his oxygen saturation at 99% on FiO2 of 80%. Nursing staff did not voice any concerns that he had an uneventful night. PHYSICAL EXAMINATION: GENERAL: When I examined him he looked somewhat pale, but no jaundice, cyanosis, no lymphadenopathy, no thyromegaly. No jugular venous distention. No lower limb edema. VITAL SIGNS: His heart rate was 58, blood pressure was 109/59, his temperature was 98.6, respiratory rate was 23 and oxygen saturation was 99% on FiO2 of 80%. HEAD, EYES, EARS, NOSE, AND THROAT: Normocephalic, atraumatic. Has orotracheal and orogastric tube. NECK: Supple. HEART: Normal first and second heart sounds. No gallop or murmur. CHEST: Shows central trachea, good air entry and chest expansion on the right side. Reduced chest expansion and reduced air entry on the left side. ABDOMEN: Scaphoid, soft, nontender. NEUROLOGIC: He is heavily sedated. His intake was 1370, output was 1375. LABORATORY DATA: This morning showed a white cell count 10,400, hemoglobin 13, hematocrit 39, MCV 90 and platelet count 250,000. His chemistry this morning showed a serum sodium of 143, potassium 4.4, chloride 107, bicarbonate 34, anion gap of 2, BUN 23, creatinine 0.8. Estimated GFR was 97 mL per minute. His glucose 102, calcium was 7.8. Total bilirubin, AST, ALT, alkaline phosphatase were normal. Total protein 5.6, albumin was 1.4. His chest x-ray showed that endotracheal tube tip is at the clavicle approximately 7 cm above the sabino. Enteric tube tip to the right of the midline projecting within the stomach. Central venous catheter projects within the superior vena cava. There is redemonstration of the left more so than right airspace infiltrate, improved aeration of the inferior right lower lobe, slight confluent opacification at the subpleural right lung. There is again obscuration of the left costophrenic angle, no pneumothorax, unchanged cardiomediastinal silhouette. ASSESSMENT: 1. Acute hypoxic respiratory failure. 2. COVID-19 pneumonia with possible superimposed community-acquired pneumonia. 3. Possible underlying emphysema and pulmonary fibrosis. 4. Chronic obstructive pulmonary disease with questionable pulmonary fibrosis. PLAN: To continue with sedation. Continue with mechanical ventilation. Continue with IV antibiotic. Continue with dexamethasone. Continue with DVT and GI prophylaxis. ALIZA/LEWIS/ATTILA DR: Vannessa TID: [id number]
[2021-08-03] MEDS: fentaNYL HIGH DOSE PCA 55 ML IV PRN (20:20)
[2021-08-04] VITALS (24 sets, daily range): BP systolic 103–140; BP diastolic 62–77
[2021-08-04] MEDS: PROPOFOL 100 ML IV PRN ×3 (03:03→18:27)
[2021-08-04] MEDS: MIDAZOLAM 100mg/100ml NS BAG 100 ML IV PRN ×2 (03:04→13:15)
[2021-08-04] MEDS: INSULIN LISPRO 300 UNITS/3 ML VIAL. SQ SCH ×5 (06:00→23:39)
[2021-08-04] MEDS: PIPERACILLIN/TAZOBACTAM 3.375 GM in IV NORMAL SALINE 50ML 50 ML IV SCH ×4 (06:30→23:39)
[2021-08-04] MEDS: HEPARIN for SUB-Q USE 5,000 UNIT/ML VIAL. SQ SCH ×3 (06:31→21:32)
[2021-08-04] MEDS: DEXAMETHASONE SOD PHOS 4 MG/ML VIAL IVP SCH (08:02)
[2021-08-04] MEDS: FAMOTIDINE 20 MG/2 ML VIAL IVP SCH ×2 (08:03→21:31)
--- NOTE | 2021-08-04 08:49 | PN ---
DATE: 08/04/2021 SUBJECTIVE: The patient is resting, slightly propped up in bed, in no apparent distress. He continued to be heavily sedated on Precedex, propofol as well as Versed. He is intubated and mechanically ventilated, maintaining his oxygen saturation at 100% on FiO2 of 75%. The nursing staff did not voice any concerns and that he had an uneventful night. PHYSICAL EXAMINATION: GENERAL: When I examined him, there was no pallor, jaundice, cyanosis, no lymphadenopathy, no thyromegaly, no jugular venous distention. No lower limb edema. VITAL SIGNS: His heart rate was 58, blood pressure was 109/67, his temperature was 98.6, respiratory rate 23 and oxygen saturation was 100% on FiO2 of 75%. HEAD, EYES, EARS, NOSE AND THROAT: Head is normocephalic, atraumatic. Has orotracheal and orogastric tube. He has a triple lumen catheter to the right internal jugular vein. HEART: Showed normal first and second heart sounds. No gallop, rub or murmur. CHEST: Clear to auscultation, no crepitation or rhonchi. The air entry is actually much better on the right than left. I could not appreciate any crepitation or rhonchi. ABDOMEN: Distended, soft, nontender. NEUROLOGIC: He was heavily sedated. His intake over the last 24 hours was 875, output was 975. LABORATORY DATA: Has no lab work done this morning. As of yesterday, his serum sodium was 143, potassium 4.4, chloride 107, bicarbonate 34, anion gap of 2, BUN 23, creatinine 0.8. Estimated GFR was 97 mL per minute. His glucose 102, calcium was 7.8. Total bilirubin, AST, ALT, alkaline phosphatase were normal. Total protein 5.6, albumin was 1.4. White cell count was 10,000, hemoglobin 12.7, hematocrit 38.5, MCV 90 and platelet count 350,000. As of yesterday, his pH was 7.43, a pCO2 of 44, pO2 of 92, bicarbonate 28 and oxygen saturation was 97% on FiO2 of 75%. DIAGNOSTIC DATA: His chest x-ray showed similar to mildly improved bilateral airspace opacities. ASSESSMENT: 1. Acute hypoxic respiratory failure. 2. COVID-19 pneumonia with possible superimposed community-acquired pneumonia. 3. Possible underlying emphysema and pulmonary fibrosis. 4. Chronic obstructive pulmonary disease. PLAN: To continue with sedation, mechanical ventilation. Continue IV antibiotic. Continue with dexamethasone. Continue with DVT and GI prophylaxis. ALIZA/BARRY DR: Vannessa TID: [id number]
[2021-08-04 09:10] LABS: BASE EXCESS ABG 5 mmol/L (-3-3); HCO3 ABG 31 mmol/L (21-28); PCO2 ABG 54 mmHg (35-46); PO2 ABG 79 mmHg (65-108); SAT O2 ABG 95 % (92-99)
[2021-08-04 09:21] LABS: FIO2 ABG 75
--- NOTE | 2021-08-04 11:07 | PDOC ---
PULMONARY PROGRESS NOTES DATE: 08/04/21 TIME: 11:06 Subjective Remains on assist control mode. Oxygen requirement mildly improved. Sedated Vitals Vital Signs Date Time Temp Pulse Resp B/P (MAP) Pulse Ox O2 Delivery O2 Flow Rate FiO2 08/04/21 10:00 60 24 111/68 100 Ventilator 08/04/21 08:00 97.9 97.9 Comments Visual exam done due to COVID-19. No paradoxical breathing. No skin rash no leg edema Labs Laboratory Tests Test 08/02/21 13:12 08/02/21 13:15 08/03/21 05:00 08/03/21 05:51 Glucose (Fingerstick) 44 mg/dL (70-99) 83 mg/dL (70-99) 107 mg/dL (70-99) White Blood Count 10.4 x10^3/uL (4.0-11.0) Red Blood Count 4.30 x10^6/uL (4.30-5.70) Hemoglobin 12.7 g/dL (13.0-17.5) Hematocrit 38.5 % (39.0-53.0) Mean Corpuscular Volume 90 fL (79-100) Mean Corpuscular Hemoglobin 30 pg (25-35) Mean Corpuscular Hemoglobin Concent 33 g/dL (31-37) Red Cell Distribution Width 13.9 % (11.5-14.5) Platelet Count 350 x10^3/uL (140-400) Test 08/03/21 06:00 08/03/21 09:40 08/03/21 12:11 08/03/21 17:18 Sodium Level 143 mmol/L (136-145) Potassium Level 4.4 mmol/L (3.5-5.1) Chloride Level 107 mmol/L (98-107) Carbon Dioxide Level 34 mmol/L (21-32) Anion Gap 2 (6-14) Blood Urea Nitrogen 23 mg/dL (8-26) Creatinine 0.8 mg/dL (0.7-1.3) Estimated GFR (Cockcroft-Gault) 97.6 BUN/Creatinine Ratio 29 (6-20) Glucose Level 102 mg/dL (70-99) Calcium Level 7.8 mg/dL (8.5-10.1) Total Bilirubin 0.5 mg/dL (0.2-1.0) Aspartate Amino Transf (AST/SGOT) 59 U/L (15-37) Alanine Aminotransferase (ALT/SGPT) 50 U/L (16-63) Alkaline Phosphatase 107 U/L (46-116) Total Protein 5.6 g/dL (6.4-8.2) Albumin 1.4 g/dL (3.4-5.0) Albumin/Globulin Ratio 0.3 (1.0-1.7) O2 Saturation 97 % (92-99) Arterial Blood pH 7.43 (7.35-7.45) Arterial Blood pCO2 at Patient Temp 44 mmHg (35-46) Arterial Blood pO2 at Patient Temp 92 mmHg (65-108) Arterial Blood HCO3 28 mmol/L (21-28) Arterial Blood Base Excess 4 mmol/L (-3-3) FiO2 75 Glucose (Fingerstick) 104 mg/dL (70-99) 130 mg/dL (70-99) Test 08/04/21 09:00 O2 Saturation 95 % (92-99) Arterial Blood pH 7.38 (7.35-7.45) Arterial Blood pCO2 at Patient Temp 54 mmHg (35-46) Arterial Blood pO2 at Patient Temp 79 mmHg (65-108) Arterial Blood HCO3 31 mmol/L (21-28) Arterial Blood Base Excess 5 mmol/L (-3-3) FiO2 75 Laboratory Tests Test 08/03/21 12:11 08/03/21 17:18 08/04/21 09:00 Glucose (Fingerstick) 104 mg/dL (70-99) 130 mg/dL (70-99) O2 Saturation 95 % (92-99) Arterial Blood pH 7.38 (7.35-7.45) Arterial Blood pCO2 at Patient Temp 54 mmHg (35-46) Arterial Blood pO2 at Patient Temp 79 mmHg (65-108) Arterial Blood HCO3 31 mmol/L (21-28) Arterial Blood Base Excess 5 mmol/L (-3-3) FiO2 75 Comments Chest x-ray reviewed 08/02/2021 Diffuse bilateral interstitial infiltrates. There is improved aeration of left upper lobe suggesting resolution of mucous plugging chest x-ray reviewed 08/01/2019 . There is worsening infiltrates and volume loss in the left lung. Likely combination of parenchymal lung disease and some component of mucous plugging. Impression . 1. Acute hypoxic respiratory failure secondary to COVID-19 pneumonia, acute respiratory distress syndrome and possible underlying fibrosis and emphysema. 2. Abnormal CT chest with diffuse pulmonary infiltrates with some ground glass infiltrates as well as evidence of the emphysema. May have a component of underlying fibrosis as well. No pulmonary embolism seen. May also have pneumatoceles related to COVID-19 3. Hyponatremia. 4. Suspected underlying severe chronic obstructive pulmonary disease. 5. COVID-19 viral pneumonia. Plan . Updated 08/04 1. Discussed with respiratory therapist and RN. We will continue with present assist control mode. We will keep the tidal volume low. The patient is at high risk for pneumothorax due to emphysematous blebs, especially in the upper lobes. 2. Follow ABGs and make necessary adjustments. Currently down to 80% FiO2. 3. Empiric antibiotics. 4. Dexamethasone. 5. SubQ heparin for DVT prophylaxis. 6. Stress ulcer prophylaxis. 7. The patient is too late for remdesivir. 8. Empiric antibiotics 9. chest x-ray from today reviewed 08/03/2021. component of mucous plugging has improved with tracheal suctioning. Bilateral diffuse interstitial infiltrates secondary to COVID pneumonia persist Discussed with RN and RT Updated 08/03 1. Discussed with respiratory therapist and RN. We will continue with present assist control mode. We will keep the tidal volume low. The patient is at high risk for pneumothorax due to emphysematous blebs, especially in the upper lobes. 2. Follow ABGs and make necessary adjustments. Currently down to 80% FiO2. 3. Empiric antibiotics. 4. Dexamethasone. 5. SubQ heparin for DVT prophylaxis. 6. Stress ulcer prophylaxis. 7. The patient is too late for remdesivir. 8. Empiric antibiotics 9. chest x-ray from today reviewed 08/03/2021. component of mucous plugging has improved with tracheal suctioning. Bilateral diffuse interstitial infiltrates secondary to COVID pneumonia persist Discussed with RN and RT Updated 08/02 1. Discussed with respiratory therapist and RN. We will continue with present assist control mode. We will keep the tidal volume low. The patient is at high risk for pneumothorax due to emphysematous blebs, especially in the upper lobes. 2. Follow ABGs and make necessary adjustments. 3. Empiric antibiotics. 4. Dexamethasone. 5. SubQ heparin for DVT prophylaxis. 6. Stress ulcer prophylaxis. 7. The patient is too late for remdesivir. 8. Empiric antibiotics 9. chest x-ray from today reviewed. component of mucous plugging has improved with tracheal suctioning. Bilateral diffuse interstitial infiltrates secondary to COVID pneumonia persist Discussed with RN and RT Updated 08/01/2019 1. Discussed with respiratory therapist and RN. We will continue with present assist control mode. We will keep the tidal volume low. The patient is at high risk for pneumothorax due to emphysematous blebs, especially in the upper lobes. 2. Follow ABGs and make necessary adjustments. 3. Empiric antibiotics. 4. Dexamethasone. 5. SubQ heparin for DVT prophylaxis. 6. Stress ulcer prophylaxis. 7. The patient is too late for remdesivir. 8. Empiric antibiotics 9. chest x-ray from today reviewed. There is some component of mucous plugging in addition to the worsening parenchymal infiltrates. We will do tracheal suctioning. And monitor chest x-rays. May consider bronchoscopy in future Discussed with RN and RT and Dr. Dangelo Total critical care time 30 mi RECOMMENDATIONS: 1. Discussed with respiratory therapist and RN. We will continue with present assist control mode. We will keep the tidal volume low. The patient is at high risk for pneumothorax due to emphysematous blebs, especially in the upper lobes. 2. Follow ABGs and make necessary adjustments. 3. Empiric antibiotics. 4. Dexamethasone. 5. SubQ heparin for DVT prophylaxis. 6. Stress ulcer prophylaxis. 7. The patient is too late for remdesivir. 8. The patient is critically ill. Prognosis is guarded. Chart reviewed, imaging studies reviewed. Total critical care time 39 minutes. MICHELLE KNOWLES MD Aug 04, 2021 11:07
[2021-08-04] MEDS: fentaNYL HIGH DOSE PCA 55 ML IV PRN (21:32)
[2021-08-05] VITALS (24 sets, daily range): BP systolic 105–142; BP diastolic 62–82
[2021-08-05] MEDS: MIDAZOLAM 100mg/100ml NS BAG 100 ML IV PRN ×2 (03:37→13:15)
[2021-08-05] MEDS: PROPOFOL 100 ML IV PRN ×4 (03:38→17:12)
[2021-08-05] MEDS: HEPARIN for SUB-Q USE 5,000 UNIT/ML VIAL. SQ SCH ×3 (05:46→22:14)
[2021-08-05] MEDS: PIPERACILLIN/TAZOBACTAM 3.375 GM in IV NORMAL SALINE 50ML 50 ML IV SCH ×3 (05:46→17:11)
[2021-08-05] MEDS: INSULIN LISPRO 300 UNITS/3 ML VIAL. SQ SCH ×3 (05:46→17:10)
[2021-08-05 06:05] LABS: HEMATOCRIT 38.6 % (39.0-53.0); HEMOGLOBIN 12.6 g/dL (13.0-17.5); RED BLOOD COUNT 4.26 x10^6/uL (4.30-5.70); RED CELL DISTRIBUTION WIDTH 13.8 % (11.5-14.5); WHITE BLOOD COUNT 11.6 x10^3/uL (4.0-11.0)
[2021-08-05 06:18] LABS: ALBUMIN 1.5 g/dL (3.4-5.0); ALBUMIN/GLOBULIN RATIO 0.3 (1.0-1.7); CREATININE 0.7 mg/dL (0.7-1.3); GFR 113.9; POTASSIUM 4.5 mmol/L (3.5-5.1); TOTAL BILIRUBIN 0.4 mg/dL (0.2-1.0); TOTAL PROTEIN 5.9 g/dL (6.4-8.2)
[2021-08-05 08:17] LABS: BASE EXCESS ABG 3 mmol/L (-3-3); HCO3 ABG 28 mmol/L (21-28); PCO2 ABG 47 mmHg (35-46); PO2 ABG 74 mmHg (65-108); SAT O2 ABG 95 % (92-99)
[2021-08-05] MEDS: FAMOTIDINE 20 MG/2 ML VIAL IVP SCH ×2 (08:24→21:10)
[2021-08-05] MEDS: DEXAMETHASONE SOD PHOS 4 MG/ML VIAL IVP SCH (08:24)
[2021-08-05 08:34] LABS: FIO2 ABG 75
--- NOTE | 2021-08-05 09:37 | PDOC ---
PULMONARY PROGRESS NOTES DATE: 08/05/21 TIME: 09:34 Subjective Remains on assist control mode. Oxygen requirement mildly improved. still 75% fio2 and 7 peep Sedated Vitals Vital Signs Date Time Temp Pulse Resp B/P (MAP) Pulse Ox O2 Delivery O2 Flow Rate FiO2 08/05/21 08:20 98 Ventilator 08/05/21 08:00 98.4 62 24 115/67 98.4 Comments Visual exam done due to COVID-19. No paradoxical breathing. No skin rash no leg edema Labs Laboratory Tests Test 08/03/21 09:40 08/03/21 12:11 08/03/21 17:18 08/04/21 09:00 O2 Saturation 97 % (92-99) 95 % (92-99) Arterial Blood pH 7.43 (7.35-7.45) 7.38 (7.35-7.45) Arterial Blood pCO2 at Patient Temp 44 mmHg (35-46) 54 mmHg (35-46) Arterial Blood pO2 at Patient Temp 92 mmHg (65-108) 79 mmHg (65-108) Arterial Blood HCO3 28 mmol/L (21-28) 31 mmol/L (21-28) Arterial Blood Base Excess 4 mmol/L (-3-3) 5 mmol/L (-3-3) FiO2 75 75 Glucose (Fingerstick) 104 mg/dL (70-99) 130 mg/dL (70-99) Test 08/04/21 18:20 08/04/21 23:33 08/05/21 05:45 08/05/21 08:05 Glucose (Fingerstick) 122 mg/dL (70-99) 116 mg/dL (70-99) White Blood Count 11.6 x10^3/uL (4.0-11.0) Red Blood Count 4.26 x10^6/uL (4.30-5.70) Hemoglobin 12.6 g/dL (13.0-17.5) Hematocrit 38.6 % (39.0-53.0) Mean Corpuscular Volume 91 fL (79-100) Mean Corpuscular Hemoglobin 30 pg (25-35) Mean Corpuscular Hemoglobin Concent 33 g/dL (31-37) Red Cell Distribution Width 13.8 % (11.5-14.5) Platelet Count 308 x10^3/uL (140-400) Sodium Level 138 mmol/L (136-145) Potassium Level 4.5 mmol/L (3.5-5.1) Chloride Level 105 mmol/L (98-107) Carbon Dioxide Level 32 mmol/L (21-32) Anion Gap 1 (6-14) Blood Urea Nitrogen 25 mg/dL (8-26) Creatinine 0.7 mg/dL (0.7-1.3) Estimated GFR (Cockcroft-Gault) 113.9 BUN/Creatinine Ratio 36 (6-20) Glucose Level 111 mg/dL (70-99) Calcium Level 8.0 mg/dL (8.5-10.1) Total Bilirubin 0.4 mg/dL (0.2-1.0) Aspartate Amino Transf (AST/SGOT) 59 U/L (15-37) Alanine Aminotransferase (ALT/SGPT) 56 U/L (16-63) Alkaline Phosphatase 111 U/L (46-116) Total Protein 5.9 g/dL (6.4-8.2) Albumin 1.5 g/dL (3.4-5.0) Albumin/Globulin Ratio 0.3 (1.0-1.7) O2 Saturation 95 % (92-99) Arterial Blood pH 7.40 (7.35-7.45) Arterial Blood pCO2 at Patient Temp 47 mmHg (35-46) Arterial Blood pO2 at Patient Temp 74 mmHg (65-108) Arterial Blood HCO3 28 mmol/L (21-28) Arterial Blood Base Excess 3 mmol/L (-3-3) FiO2 75 Laboratory Tests Test 08/04/21 18:20 08/04/21 23:33 08/05/21 05:45 08/05/21 08:05 Glucose (Fingerstick) 122 mg/dL (70-99) 116 mg/dL (70-99) White Blood Count 11.6 x10^3/uL (4.0-11.0) Red Blood Count 4.26 x10^6/uL (4.30-5.70) Hemoglobin 12.6 g/dL (13.0-17.5) Hematocrit 38.6 % (39.0-53.0) Mean Corpuscular Volume 91 fL (79-100) Mean Corpuscular Hemoglobin 30 pg (25-35) Mean Corpuscular Hemoglobin Concent 33 g/dL (31-37) Red Cell Distribution Width 13.8 % (11.5-14.5) Platelet Count 308 x10^3/uL (140-400) Sodium Level 138 mmol/L (136-145) Potassium Level 4.5 mmol/L (3.5-5.1) Chloride Level 105 mmol/L (98-107) Carbon Dioxide Level 32 mmol/L (21-32) Anion Gap 1 (6-14) Blood Urea Nitrogen 25 mg/dL (8-26) Creatinine 0.7 mg/dL (0.7-1.3) Estimated GFR (Cockcroft-Gault) 113.9 BUN/Creatinine Ratio 36 (6-20) Glucose Level 111 mg/dL (70-99) Calcium Level 8.0 mg/dL (8.5-10.1) Total Bilirubin 0.4 mg/dL (0.2-1.0) Aspartate Amino Transf (AST/SGOT) 59 U/L (15-37) Alanine Aminotransferase (ALT/SGPT) 56 U/L (16-63) Alkaline Phosphatase 111 U/L (46-116) Total Protein 5.9 g/dL (6.4-8.2) Albumin 1.5 g/dL (3.4-5.0) Albumin/Globulin Ratio 0.3 (1.0-1.7) O2 Saturation 95 % (92-99) Arterial Blood pH 7.40 (7.35-7.45) Arterial Blood pCO2 at Patient Temp 47 mmHg (35-46) Arterial Blood pO2 at Patient Temp 74 mmHg (65-108) Arterial Blood HCO3 28 mmol/L (21-28) Arterial Blood Base Excess 3 mmol/L (-3-3) FiO2 75 Comments Chest x-ray reviewed 08/02/2021 Diffuse bilateral interstitial infiltrates. There is improved aeration of left upper lobe suggesting resolution of mucous plugging chest x-ray reviewed 08/01/2019 . There is worsening infiltrates and volume loss in the left lung. Likely combination of parenchymal lung disease and some component of mucous plugging. Impression . 1. Acute hypoxic respiratory failure secondary to COVID-19 pneumonia, acute respiratory distress syndrome and possible underlying fibrosis and emphysema. 2. Abnormal CT chest with diffuse pulmonary infiltrates with some ground glass infiltrates as well as evidence of the emphysema. May have a component of underlying fibrosis as well. No pulmonary embolism seen. May also have pneumatoceles related to COVID-19 3. Hyponatremia. 4. Suspected underlying severe chronic obstructive pulmonary disease. 5. COVID-19 viral pneumonia. Plan . Updated 08/05 1. Discussed with respiratory therapist and RN. We will continue with present assist control mode. We will keep the tidal volume low. The patient is at high risk for pneumothorax due to emphysematous blebs, especially in the upper lobes. 2. Follow ABGs and make necessary adjustments. Currently down to 75% FiO2. 3. Empiric antibiotics. 4. Dexamethasone. 5. SubQ heparin for DVT prophylaxis. 6. Stress ulcer prophylaxis. 7. The patient is too late for remdesivir. 8. Empiric antibiotics 9. chest x-ray from today reviewed 08/03/2021. component of mucous plugging has improved with tracheal suctioning. Bilateral diffuse interstitial infiltrates secondary to COVID pneumonia persist Discussed with RN and RT Updated 08/04 1. Discussed with respiratory therapist and RN. We will continue with present assist control mode. We will keep the tidal volume low. The patient is at high risk for pneumothorax due to emphysematous blebs, especially in the upper lobes. 2. Follow ABGs and make necessary adjustments. Currently down to 80% FiO2. 3. Empiric antibiotics. 4. Dexamethasone. 5. SubQ heparin for DVT prophylaxis. 6. Stress ulcer prophylaxis. 7. The patient is too late for remdesivir. 8. Empiric antibiotics 9. chest x-ray from today reviewed 08/03/2021. component of mucous plugging has improved with tracheal suctioning. Bilateral diffuse interstitial infiltrates secondary to COVID pneumonia persist Discussed with RN and RT Updated 08/03 1. Discussed with respiratory therapist and RN. We will continue with present assist control mode. We will keep the tidal volume low. The patient is at high risk for pneumothorax due to emphysematous blebs, especially in the upper lobes. 2. Follow ABGs and make necessary adjustments. Currently down to 80% FiO2. 3. Empiric antibiotics. 4. Dexamethasone. 5. SubQ heparin for DVT prophylaxis. 6. Stress ulcer prophylaxis. 7. The patient is too late for remdesivir. 8. Empiric antibiotics 9. chest x-ray from today reviewed 08/03/2021. component of mucous plugging has improved with tracheal suctioning. Bilateral diffuse interstitial infiltrates secondary to COVID pneumonia persist Discussed with RN and RT Updated 08/02 1. Discussed with respiratory therapist and RN. We will continue with present assist control mode. We will keep the tidal volume low. The patient is at high risk for pneumothorax due to emphysematous blebs, especially in the upper lobes. 2. Follow ABGs and make necessary adjustments. 3. Empiric antibiotics. 4. Dexamethasone. 5. SubQ heparin for DVT prophylaxis. 6. Stress ulcer prophylaxis. 7. The patient is too late for remdesivir. 8. Empiric antibiotics 9. chest x-ray from today reviewed. component of mucous plugging has improved with tracheal suctioning. Bilateral diffuse interstitial infiltrates secondary to COVID pneumonia persist Discussed with RN and RT Updated 08/01/2019 1. Discussed with respiratory therapist and RN. We will continue with present assist control mode. We will keep the tidal volume low. The patient is at high risk for pneumothorax due to emphysematous blebs, especially in the upper lobes. 2. Follow ABGs and make necessary adjustments. 3. Empiric antibiotics. 4. Dexamethasone. 5. SubQ heparin for DVT prophylaxis. 6. Stress ulcer prophylaxis. 7. The patient is too late for remdesivir. 8. Empiric antibiotics 9. chest x-ray from today reviewed. There is some component of mucous plugging in addition to the worsening parenchymal infiltrates. We will do tracheal suctioning. And monitor chest x-rays. May consider bronchoscopy in future Discussed with RN and RT and Dr. Dangelo Total critical care time 30 mi RECOMMENDATIONS: 1. Discussed with respiratory therapist and RN. We will continue with present assist control mode. We will keep the tidal volume low. The patient is at high risk for pneumothorax due to emphysematous blebs, especially in the upper lobes. 2. Follow ABGs and make necessary adjustments. 3. Empiric antibiotics. 4. Dexamethasone. 5. SubQ heparin for DVT prophylaxis. 6. Stress ulcer prophylaxis. 7. The patient is too late for remdesivir. 8. The patient is critically ill. Prognosis is guarded. Chart reviewed, imaging studies reviewed. Total critical care time 39 minutes. MICHELLE KNOWLES MD Aug 05, 2021 09:37
[2021-08-06] VITALS (24 sets, daily range): BP systolic 92–122; BP diastolic 50–72
[2021-08-06] MEDS: PIPERACILLIN/TAZOBACTAM 3.375 GM in IV NORMAL SALINE 50ML 50 ML IV SCH ×4 (00:11→17:52)
[2021-08-06] MEDS: fentaNYL HIGH DOSE PCA 55 ML IV PRN ×2 (00:59→21:36)
[2021-08-06] MEDS: PROPOFOL 100 ML IV PRN ×5 (02:12→20:48)
[2021-08-06] MEDS: MIDAZOLAM 100mg/100ml NS BAG 100 ML IV PRN ×3 (02:12→23:04)
[2021-08-06] MEDS: INSULIN LISPRO 300 UNITS/3 ML VIAL. SQ SCH ×5 (06:00→23:52)
[2021-08-06] MEDS: HEPARIN for SUB-Q USE 5,000 UNIT/ML VIAL. SQ SCH ×3 (06:05→22:11)
--- NOTE | 2021-08-06 06:31 | RAD ---
XR CHEST 1V Clinical Indication: Reason: RF / Comparison: AP chest, 3 days ago. Findings: Endotracheal tube tip is at the level of the clavicles. Enteric tube remains in the stomach. Right IJ central line tip in mid SVC. Left upper lung airspace opacities are worse. Continued obscuration of left hemidiaphragm. Right lung airspace opacities are unchanged. The cardiomediastinal silhouette is probably stable. There is no p neumothorax. Bones appear stable. IMPRESSION: 1. Life support devices as above. 2. Left upper lung airspace opacities are worse. Pulmonary findings are otherwise unchanged. Electronically signed by: Moise Rehman MD (08/06/2021 6:29 AM) [facility]
[2021-08-06] MEDS: FAMOTIDINE 20 MG/2 ML VIAL IVP SCH ×2 (07:55→20:48)
[2021-08-06] MEDS: DEXAMETHASONE SOD PHOS 4 MG/ML VIAL IVP SCH (07:55)
[2021-08-06 09:32] LABS: BASE EXCESS ABG 5 mmol/L (-3-3); HCO3 ABG 31 mmol/L (21-28); PCO2 ABG 55 mmHg (35-46); PO2 ABG 76 mmHg (65-108); SAT O2 ABG 94 % (92-99)
[2021-08-06 09:34] LABS: FIO2 ABG 75
--- NOTE | 2021-08-06 09:59 | PN ---
DATE: 08/05/2021 SUBJECTIVE: The patient is resting, slightly propped up in bed, in no apparent respiratory distress. He is heavily sedated on propofol, Versed and fentanyl. He is maintaining his oxygen saturation at 99% on FiO2 of 75%. Nursing staff did not voice any concerns that he has an uneventful night. PHYSICAL EXAMINATION: GENERAL: When I examined him, there was no pallor, jaundice, cyanosis or thyromegaly. No jugular venous distention. No lower limb edema. VITAL SIGNS: His heart rate was 55, blood pressure is 112/67, temperature was 99.1, respiratory rate 24, and oxygen saturation was 99%. HEAD, EYES, EARS, NOSE AND THROAT: Normocephalic, atraumatic. Has orotracheal and orogastric tube. NECK: Supple. HEART: Normal first and second heart sounds. No gallop, rub or murmur. CHEST: Showed central trachea. Good chest expansion with air entry on the right side. Chest expansion air entry is much less on the left side. ABDOMEN: Soft, nontender. NEUROLOGIC: He was heavily sedated. His intake over the last 24 hours was 1927, output was 1355. LABORATORY DATA: This morning showed a white cell count 11,600, hemoglobin 12.6, hematocrit 38, MCV 91, and platelet count 308,000. Serum sodium 138, potassium 4.5, chloride 105, bicarbonate 32, anion gap of 1, BUN 25, creatinine 0.7. Estimated GFR was 113 mL per minute. His glucose 111, calcium was 8. Total bilirubin, AST, ALT, alkaline phosphatase are normal. His total protein was 5.9, albumin was 1.5. His arterial blood gases still pending at the time of this dictation. As of yesterday, his pH was 7.38, pCO2 of 54, pO2 of 79, bicarbonate of 31, oxygen saturation was 95% on FiO2 of 75%. ASSESSMENT: 1. COVID-19 pneumonia with possible superimposed community-acquired pneumonia. 2. Acute hypoxic respiratory failure. 3. Possible underlying emphysema and pulmonary fibrosis. 4. Chronic obstructive pulmonary disease exacerbation. PLAN: To continue sedation, mechanical ventilation. Continue IV antibiotic. Continue with dexamethasone. Continue with DVT and GI prophylaxis. ALIZA/YOLANDA/GHADA DR: ALIZA/marcio TID: [id number]
--- NOTE | 2021-08-06 10:59 | PDOC ---
PULMONARY PROGRESS NOTES DATE: 08/06/21 TIME: 10:56 Subjective Remains on assist control mode. Oxygen requirement mildly improved. still 75% fio2 and 7 peep Sedated Vitals Vital Signs Date Time Temp Pulse Resp B/P (MAP) Pulse Ox O2 Delivery O2 Flow Rate FiO2 08/06/21 10:00 52 24 98/55 99 Ventilator 08/06/21 08:00 98.4 98.4 Comments Visual exam done due to COVID-19. No paradoxical breathing. No skin rash no leg edema Labs Laboratory Tests Test 08/04/21 18:20 08/04/21 23:33 08/05/21 05:45 08/05/21 08:05 Glucose (Fingerstick) 122 mg/dL (70-99) 116 mg/dL (70-99) White Blood Count 11.6 x10^3/uL (4.0-11.0) Red Blood Count 4.26 x10^6/uL (4.30-5.70) Hemoglobin 12.6 g/dL (13.0-17.5) Hematocrit 38.6 % (39.0-53.0) Mean Corpuscular Volume 91 fL (79-100) Mean Corpuscular Hemoglobin 30 pg (25-35) Mean Corpuscular Hemoglobin Concent 33 g/dL (31-37) Red Cell Distribution Width 13.8 % (11.5-14.5) Platelet Count 308 x10^3/uL (140-400) Sodium Level 138 mmol/L (136-145) Potassium Level 4.5 mmol/L (3.5-5.1) Chloride Level 105 mmol/L (98-107) Carbon Dioxide Level 32 mmol/L (21-32) Anion Gap 1 (6-14) Blood Urea Nitrogen 25 mg/dL (8-26) Creatinine 0.7 mg/dL (0.7-1.3) Estimated GFR (Cockcroft-Gault) 113.9 BUN/Creatinine Ratio 36 (6-20) Glucose Level 111 mg/dL (70-99) Calcium Level 8.0 mg/dL (8.5-10.1) Total Bilirubin 0.4 mg/dL (0.2-1.0) Aspartate Amino Transf (AST/SGOT) 59 U/L (15-37) Alanine Aminotransferase (ALT/SGPT) 56 U/L (16-63) Alkaline Phosphatase 111 U/L (46-116) Total Protein 5.9 g/dL (6.4-8.2) Albumin 1.5 g/dL (3.4-5.0) Albumin/Globulin Ratio 0.3 (1.0-1.7) O2 Saturation 95 % (92-99) Arterial Blood pH 7.40 (7.35-7.45) Arterial Blood pCO2 at Patient Temp 47 mmHg (35-46) Arterial Blood pO2 at Patient Temp 74 mmHg (65-108) Arterial Blood HCO3 28 mmol/L (21-28) Arterial Blood Base Excess 3 mmol/L (-3-3) FiO2 75 Test 08/05/21 17:07 08/05/21 23:40 08/06/21 06:09 08/06/21 09:00 Glucose (Fingerstick) 135 mg/dL (70-99) 118 mg/dL (70-99) 120 mg/dL (70-99) O2 Saturation 94 % (92-99) Arterial Blood pH 7.37 (7.35-7.45) Arterial Blood pCO2 at Patient Temp 55 mmHg (35-46) Arterial Blood pO2 at Patient Temp 76 mmHg (65-108) Arterial Blood HCO3 31 mmol/L (21-28) Arterial Blood Base Excess 5 mmol/L (-3-3) FiO2 75 Laboratory Tests Test 08/05/21 17:07 08/05/21 23:40 08/06/21 06:09 08/06/21 09:00 Glucose (Fingerstick) 135 mg/dL (70-99) 118 mg/dL (70-99) 120 mg/dL (70-99) O2 Saturation 94 % (92-99) Arterial Blood pH 7.37 (7.35-7.45) Arterial Blood pCO2 at Patient Temp 55 mmHg (35-46) Arterial Blood pO2 at Patient Temp 76 mmHg (65-108) Arterial Blood HCO3 31 mmol/L (21-28) Arterial Blood Base Excess 5 mmol/L (-3-3) FiO2 75 Comments Chest x-ray reviewed 08/06/2021. Bilateral diffuse infiltrates, slightly worse in the left upper lobe. Chest x-ray reviewed 08/02/2021 Diffuse bilateral interstitial infiltrates. There is improved aeration of left upper lobe suggesting resolution of mucous plugging chest x-ray reviewed 08/01/2019 . There is worsening infiltrates and volume loss in the left lung. Likely combination of parenchymal lung disease and some component of mucous plugging. Impression . 1. Acute hypoxic respiratory failure secondary to COVID-19 pneumonia, acute respiratory distress syndrome and possible underlying fibrosis and emphysema. 2. Abnormal CT chest with diffuse pulmonary infiltrates with some ground glass infiltrates as well as evidence of the emphysema. May have a component of underlying fibrosis as well. No pulmonary embolism seen. May also have pneumatoceles related to COVID-19 3. Hyponatremia. 4. Suspected underlying severe chronic obstructive pulmonary disease. 5. COVID-19 viral pneumonia. 6. Abnormal chest x-ray with bilateral diffuse infiltrates related to COVID-19 viral pneumonia. Plan . Updated 08/06 1. Discussed with respiratory therapist and RN. We will continue with present assist control mode. We will keep the tidal volume low. The patient is at high risk for pneumothorax due to emphysematous blebs, especially in the upper lobes. 2. Follow ABGs and make necessary adjustments. Wean FiO2 to 70%. 3. Empiric antibiotics. 4. Dexamethasone. 5. SubQ heparin for DVT prophylaxis. 6. Stress ulcer prophylaxis. 7. The patient is too late for remdesivir. 8. Empiric antibiotics 9. Chest x-ray 08/06/2021 shows slight increase in left upper lobe infiltrates. Currently on gram-negative antibiotic coverage. We will monitor closely. Discussed with RN and RT Updated 08/05 1. Discussed with respiratory therapist and RN. We will continue with present assist control mode. We will keep the tidal volume low. The patient is at high risk for pneumothorax due to emphysematous blebs, especially in the upper lobes. 2. Follow ABGs and make necessary adjustments. Currently down to 75% FiO2. 3. Empiric antibiotics. 4. Dexamethasone. 5. SubQ heparin for DVT prophylaxis. 6. Stress ulcer prophylaxis. 7. The patient is too late for remdesivir. 8. Empiric antibiotics 9. chest x-ray from today reviewed 08/03/2021. component of mucous plugging has improved with tracheal suctioning. Bilateral diffuse interstitial infiltrates secondary to COVID pneumonia persist Discussed with RN and RT MICHELLE KNOWLES MD Aug 06, 2021 10:59
[2021-08-06] MEDS ORDERED: VECURONIUM BOLUS 10 MG VIAL. IV ONE (13:34)
[2021-08-06] MEDS: VECURONIUM BOLUS 10 MG VIAL. IV PRN (13:44)
--- NOTE | 2021-08-06 15:15 | NUR ---
SS following up with discharge planning. SS reviewed pt chart and discussed with pt RN. Pt is currently on the vent at 70%. COVID19 positive. Pt on IV Zosyn and IV Decadron. Pt on Versed, Propofol, and Fentanyl. Not ready. SS will continue to follow for discharge planning.
--- NOTE | 2021-08-06 16:25 | PN ---
DATE: 08/06/2021 SUBJECTIVE: The patient continues to be heavily sedated, intubated and mechanically ventilated. He is maintaining his oxygen saturation at 100% on FiO2 of 75%. The nursing staff did not voice any concerns. He stated that he had an uneventful night. PHYSICAL EXAMINATION: GENERAL: When I examined him, he looked somewhat pale, not jaundiced, cyanosed, no lymphadenopathy, no thyromegaly, no jugular venous distention. No limb edema. VITAL SIGNS: His heart rate was 50, blood pressure was 116/71, temperature was 98.2, respiratory rate was 24 and oxygen saturation was 100% on FiO2 75%. HEAD, EYES, EARS, NOSE, AND THROAT: Normocephalic, atraumatic. Has orotracheal and orogastric tube. NECK: Supple. HEART: Showed normal first and second heart sounds. No gallop, rub or murmur. CHEST: Showed central trachea. Good air entry, chest expansion of the right side. Chest expansion, air entry is less on the left side. ABDOMEN: His abdomen is soft, nontender. NEUROLOGIC: He is heavily sedated. His intake over the last 24 hours was 2650, output was 1425. LABORATORY DATA: As of this morning, his blood sugar seems to be well within normal range. His chemistry yesterday was well within normal range and his white cell count was 11,600, hemoglobin 13, hematocrit 39, MCV 91, and platelet count 308,000. ASSESSMENT: 1. Acute hypoxic respiratory failure. 2. COVID-19 pneumonia. 3. Superimposed community-acquired pneumonia. 4. Possible underlying emphysema and pulmonary fibrosis. 5. Chronic obstructive pulmonary disease. PLAN: Plan is to continue with sedation, mechanical ventilation. Continue IV antibiotic. Continue with dexamethasone. Continue with DVT and GI prophylaxis. ALIZA/CHAN/MANUELA DR: Vannessa TID: [id number]
[2021-08-07] VITALS (24 sets, daily range): BP systolic 103–130; BP diastolic 58–73
[2021-08-07] MEDS: PIPERACILLIN/TAZOBACTAM 3.375 GM in IV NORMAL SALINE 50ML 50 ML IV SCH ×3 (00:09→11:20)
[2021-08-07] MEDS: PROPOFOL 100 ML IV PRN ×6 (01:03→21:53)
[2021-08-07] MEDS: INSULIN LISPRO 300 UNITS/3 ML VIAL. SQ SCH (06:00)
[2021-08-07] MEDS: HEPARIN for SUB-Q USE 5,000 UNIT/ML VIAL. SQ SCH ×3 (06:05→21:54)
[2021-08-07] MEDS: DEXAMETHASONE SOD PHOS 4 MG/ML VIAL IVP SCH (07:25)
[2021-08-07] MEDS: FAMOTIDINE 20 MG/2 ML VIAL IVP SCH ×2 (07:25→21:52)
[2021-08-07] MEDS: MIDAZOLAM 100mg/100ml NS BAG 100 ML IV PRN ×2 (07:36→22:03)
[2021-08-07 08:07] LABS: BASE EXCESS ABG 6 mmol/L (-3-3); HCO3 ABG 32 mmol/L (21-28); PCO2 ABG 52 mmHg (35-46); PO2 ABG 65 mmHg (65-108); SAT O2 ABG 93 % (92-99)
[2021-08-07 08:10] LABS: FIO2 ABG 70% ac 24 400 7
--- NOTE | 2021-08-07 08:36 | PN ---
DATE: 08/07/2021 SUBJECTIVE: The patient continued to be heavily sedated, intubated, mechanically ventilated. He is now maintaining his oxygen saturation at 100% on FiO2 of 70%. According to the nursing staff, his blood sugar has been well within normal range and did not require any insulin coverage. PHYSICAL EXAMINATION: GENERAL: When I examined him this morning, he was resting slightly propped up in bed, in no apparent distress. There was no pallor, jaundice, cyanosis. No lymphadenopathy, no thyromegaly, no jugular venous distention. No limb edema. VITAL SIGNS: His heart rate was 45, blood pressure was 109/63, temperature was 99.5, respiratory rate was 24 and oxygen saturation was 100% on FiO2 of 70%. HEAD, EYES, EARS, NOSE AND THROAT: Normocephalic, atraumatic. He has orotracheal and orogastric tube. NECK: Supple. Has a triple lumen catheter to the right internal jugular vein. HEART: Showed normal first and second heart sounds. No gallop, rub or murmur. CHEST: Shows central trachea, equal bilateral chest expansion air entry, vesicular breath sounds. No crepitation or rhonchi. ABDOMEN: Distended, soft, nontender. NEUROLOGIC: He was heavily sedated. His intake was 2600, output was 1525. LABORATORY DATA: His most recent chemistry showed a serum sodium 138, potassium 4.5, chloride 105, bicarbonate 32, anion gap of 1, a BUN of 25, creatinine 0.7. Estimated GFR was 113 mL per minute. His glucose was 111, calcium was 8. Total bilirubin, AST, ALT, alkaline phosphatase were normal. Total protein 5.9, albumin was 1.5. His white cell count was 11,600, hemoglobin 12.6, hematocrit 38.6, MCV 91 and platelet count 308,000. ASSESSMENT: 1. Acute hypoxic respiratory failure. 2. COVID-19 pneumonia. 3. Superimposed community-acquired pneumonia. 4. Possible underlying emphysema and pulmonary fibrosis. 5. Chronic obstructive pulmonary disease. PLAN: To continue sedation, mechanical ventilation. Continue with IV antibiotic. Continue with dexamethasone. Continue with DVT and GI prophylaxis. I will discontinue the Accu-Cheks and sliding scale insulin. ALIZA/TAMANNA DR: Vannessa TID: [id number]
--- NOTE | 2021-08-07 09:26 | PDOC ---
PULMONARY PROGRESS NOTES DATE: 08/07/21 TIME: 09:26 Subjective Sedated, currently on 70% FiO2 7 of PEEP Vitals Vital Signs Date Time Temp Pulse Resp B/P (MAP) Pulse Ox O2 Delivery O2 Flow Rate FiO2 08/07/21 09:00 45 24 115/67 100 Ventilator 08/07/21 08:00 97.9 97.9 Comments Visual exam done due to COVID-19. No paradoxical breathing. No skin rash no leg edema Labs Laboratory Tests Test 08/05/21 17:07 08/05/21 23:40 08/06/21 06:09 08/06/21 09:00 Glucose (Fingerstick) 135 mg/dL (70-99) 118 mg/dL (70-99) 120 mg/dL (70-99) O2 Saturation 94 % (92-99) Arterial Blood pH 7.37 (7.35-7.45) Arterial Blood pCO2 at Patient Temp 55 mmHg (35-46) Arterial Blood pO2 at Patient Temp 76 mmHg (65-108) Arterial Blood HCO3 31 mmol/L (21-28) Arterial Blood Base Excess 5 mmol/L (-3-3) FiO2 75 Test 08/06/21 12:05 08/06/21 16:02 08/06/21 23:45 08/07/21 05:30 Glucose (Fingerstick) 125 mg/dL (70-99) 143 mg/dL (70-99) 110 mg/dL (70-99) 108 mg/dL (70-99) Test 08/07/21 07:55 O2 Saturation 93 % (92-99) Arterial Blood pH 7.40 (7.35-7.45) Arterial Blood pCO2 at Patient Temp 52 mmHg (35-46) Arterial Blood pO2 at Patient Temp 65 mmHg (65-108) Arterial Blood HCO3 32 mmol/L (21-28) Arterial Blood Base Excess 6 mmol/L (-3-3) FiO2 70% ac 24 400 7 Laboratory Tests Test 08/06/21 12:05 08/06/21 16:02 08/06/21 23:45 08/07/21 05:30 Glucose (Fingerstick) 125 mg/dL (70-99) 143 mg/dL (70-99) 110 mg/dL (70-99) 108 mg/dL (70-99) Test 08/07/21 07:55 O2 Saturation 93 % (92-99) Arterial Blood pH 7.40 (7.35-7.45) Arterial Blood pCO2 at Patient Temp 52 mmHg (35-46) Arterial Blood pO2 at Patient Temp 65 mmHg (65-108) Arterial Blood HCO3 32 mmol/L (21-28) Arterial Blood Base Excess 6 mmol/L (-3-3) FiO2 70% ac 24 400 7 Comments Chest x-ray reviewed 08/06/2021. Bilateral diffuse infiltrates, slightly worse in the left upper lobe. Reviewed Impression . 1. Acute hypoxic respiratory failure secondary to COVID-19 pneumonia, acute respiratory distress syndrome and possible underlying fibrosis and emphysema. 2. Abnormal CT chest with diffuse pulmonary infiltrates with some ground glass infiltrates as well as evidence of the emphysema. May have a component of underlying fibrosis as well. No pulmonary embolism seen. May also have pneumatoceles related to COVID-19 3. Hyponatremia. 4. Suspected underlying severe chronic obstructive pulmonary disease. 5. COVID-19 viral pneumonia. 6. Abnormal chest x-ray with bilateral diffuse infiltrates related to COVID-19 viral pneumonia. Plan . Updated 08/07 Labs reviewed ABG noted PaO2 of 65 Dexamethasone Empiric antibiotics, finish course DVT prophylaxis GI prophylaxis Nutritional support When improves will obtain CT chest CCT 30 minutes Updated 08/06 1. Discussed with respiratory therapist and RN. We will continue with present assist control mode. We will keep the tidal volume low. The patient is at high risk for pneumothorax due to emphysematous blebs, especially in the upper lobes. 2. Follow ABGs and make necessary adjustments. Wean FiO2 to 70%. 3. Empiric antibiotics. 4. Dexamethasone. 5. SubQ heparin for DVT prophylaxis. 6. Stress ulcer prophylaxis. 7. The patient is too late for remdesivir. 8. Empiric antibiotics 9. Chest x-ray 08/06/2021 shows slight increase in left upper lobe infiltrates. Currently on gram-negative antibiotic coverage. We will monitor closely. Discussed with RN and RT REBECCA DUGGAN MD Aug 07, 2021 09:26
[2021-08-07] MEDS: fentaNYL HIGH DOSE PCA 55 ML IV PRN (14:28)
[2021-08-08] VITALS (24 sets, daily range): BP systolic 92–131; BP diastolic 56–75
[2021-08-08] MEDS: PROPOFOL 100 ML IV PRN ×4 (02:27→21:53)
[2021-08-08] MEDS: HEPARIN for SUB-Q USE 5,000 UNIT/ML VIAL. SQ SCH ×3 (05:26→21:08)
[2021-08-08 05:42] LABS: HEMATOCRIT 37.8 % (39.0-53.0); HEMOGLOBIN 12.7 g/dL (13.0-17.5); RED BLOOD COUNT 4.16 x10^6/uL (4.30-5.70); RED CELL DISTRIBUTION WIDTH 14.3 % (11.5-14.5); WHITE BLOOD COUNT 7.8 x10^3/uL (4.0-11.0)
[2021-08-08 06:21] LABS: ALBUMIN 1.7 g/dL (3.4-5.0); ALBUMIN/GLOBULIN RATIO 0.5 (1.0-1.7); CALCIUM 7.7 mg/dL (8.5-10.1); CREATININE 0.7 mg/dL (0.7-1.3); GFR 113.9; POTASSIUM 4.3 mmol/L (3.5-5.1); TOTAL BILIRUBIN 0.4 mg/dL (0.2-1.0); TOTAL PROTEIN 5.3 g/dL (6.4-8.2)
--- NOTE | 2021-08-08 06:44 | RAD ---
XR CHEST 1V Clinical Indication: Reason: RF / Comparison: AP chest, 2 days ago. Findings: Endotracheal tube tip is 8.7 cm superior to the sabino. Enteric tube remains in the stomach. Right IJ central line tip in mid SVC. Left lung airspace opacities are mildly improved. Right lung airspace opacities are unchanged. The ca rdiomediastinal silhouette is stable. There is no pneumothorax. Bones appear stable. IMPRESSION: 1. Life support devices as above. 2. Left lung airspace opacities are mildly improved. Right pulmonary opacities are unchanged. Electronically signed by: Moise Rehman MD (08/08/2021 6:42 AM) [facility]
[2021-08-08 08:14] LABS: BASE EXCESS ABG 5 mmol/L (-3-3); HCO3 ABG 30 mmol/L (21-28); PCO2 ABG 47 mmHg (35-46); PO2 ABG 90 mmHg (65-108); SAT O2 ABG 97 % (92-99)
[2021-08-08] MEDS: MIDAZOLAM 100mg/100ml NS BAG 100 ML IV PRN ×2 (08:16→18:47)
[2021-08-08 08:20] LABS: FIO2 ABG 70% ac 24 400 7
[2021-08-08] MEDS: fentaNYL HIGH DOSE PCA 55 ML IV PRN (08:34)
--- NOTE | 2021-08-08 09:39 | PDOC ---
PULMONARY PROGRESS NOTES DATE: 08/08/21 TIME: 09:39 Subjective Patient remains critically ill, currently on 80% FiO2 7 of PEEP Sedated Afebrile Vitals Vital Signs Date Time Temp Pulse Resp B/P (MAP) Pulse Ox O2 Delivery O2 Flow Rate FiO2 08/08/21 09:19 Ventilator 08/08/21 09:00 43 24 92/56 100 08/08/21 08:00 97.8 97.8 Comments Visual exam done due to COVID-19. No paradoxical breathing. No skin rash no leg edema Labs Laboratory Tests Test 08/06/21 12:05 08/06/21 16:02 08/06/21 23:45 08/07/21 05:30 Glucose (Fingerstick) 125 mg/dL (70-99) 143 mg/dL (70-99) 110 mg/dL (70-99) 108 mg/dL (70-99) Test 08/07/21 07:55 08/08/21 05:15 08/08/21 08:15 O2 Saturation 93 % (92-99) 97 % (92-99) Arterial Blood pH 7.40 (7.35-7.45) 7.43 (7.35-7.45) Arterial Blood pCO2 at Patient Temp 52 mmHg (35-46) 47 mmHg (35-46) Arterial Blood pO2 at Patient Temp 65 mmHg (65-108) 90 mmHg (65-108) Arterial Blood HCO3 32 mmol/L (21-28) 30 mmol/L (21-28) Arterial Blood Base Excess 6 mmol/L (-3-3) 5 mmol/L (-3-3) FiO2 70% ac 24 400 7 70% ac 24 400 7 White Blood Count 7.8 x10^3/uL (4.0-11.0) Red Blood Count 4.16 x10^6/uL (4.30-5.70) Hemoglobin 12.7 g/dL (13.0-17.5) Hematocrit 37.8 % (39.0-53.0) Mean Corpuscular Volume 91 fL (79-100) Mean Corpuscular Hemoglobin 30 pg (25-35) Mean Corpuscular Hemoglobin Concent 34 g/dL (31-37) Red Cell Distribution Width 14.3 % (11.5-14.5) Platelet Count 315 x10^3/uL (140-400) Sodium Level 140 mmol/L (136-145) Potassium Level 4.3 mmol/L (3.5-5.1) Chloride Level 104 mmol/L (98-107) Carbon Dioxide Level 34 mmol/L (21-32) Anion Gap 2 (6-14) Blood Urea Nitrogen 24 mg/dL (8-26) Creatinine 0.7 mg/dL (0.7-1.3) Estimated GFR (Cockcroft-Gault) 113.9 BUN/Creatinine Ratio 34 (6-20) Glucose Level 105 mg/dL (70-99) Calcium Level 7.7 mg/dL (8.5-10.1) Total Bilirubin 0.4 mg/dL (0.2-1.0) Aspartate Amino Transf (AST/SGOT) 30 U/L (15-37) Alanine Aminotransferase (ALT/SGPT) 48 U/L (16-63) Alkaline Phosphatase 104 U/L (46-116) Total Protein 5.3 g/dL (6.4-8.2) Albumin 1.7 g/dL (3.4-5.0) Albumin/Globulin Ratio 0.5 (1.0-1.7) Laboratory Tests Test 08/08/21 05:15 08/08/21 08:15 White Blood Count 7.8 x10^3/uL (4.0-11.0) Red Blood Count 4.16 x10^6/uL (4.30-5.70) Hemoglobin 12.7 g/dL (13.0-17.5) Hematocrit 37.8 % (39.0-53.0) Mean Corpuscular Volume 91 fL (79-100) Mean Corpuscular Hemoglobin 30 pg (25-35) Mean Corpuscular Hemoglobin Concent 34 g/dL (31-37) Red Cell Distribution Width 14.3 % (11.5-14.5) Platelet Count 315 x10^3/uL (140-400) Sodium Level 140 mmol/L (136-145) Potassium Level 4.3 mmol/L (3.5-5.1) Chloride Level 104 mmol/L (98-107) Carbon Dioxide Level 34 mmol/L (21-32) Anion Gap 2 (6-14) Blood Urea Nitrogen 24 mg/dL (8-26) Creatinine 0.7 mg/dL (0.7-1.3) Estimated GFR (Cockcroft-Gault) 113.9 BUN/Creatinine Ratio 34 (6-20) Glucose Level 105 mg/dL (70-99) Calcium Level 7.7 mg/dL (8.5-10.1) Total Bilirubin 0.4 mg/dL (0.2-1.0) Aspartate Amino Transf (AST/SGOT) 30 U/L (15-37) Alanine Aminotransferase (ALT/SGPT) 48 U/L (16-63) Alkaline Phosphatase 104 U/L (46-116) Total Protein 5.3 g/dL (6.4-8.2) Albumin 1.7 g/dL (3.4-5.0) Albumin/Globulin Ratio 0.5 (1.0-1.7) O2 Saturation 97 % (92-99) Arterial Blood pH 7.43 (7.35-7.45) Arterial Blood pCO2 at Patient Temp 47 mmHg (35-46) Arterial Blood pO2 at Patient Temp 90 mmHg (65-108) Arterial Blood HCO3 30 mmol/L (21-28) Arterial Blood Base Excess 5 mmol/L (-3-3) FiO2 70% ac 24 400 7 Comments Chest x-ray reviewed 08/06/2021. Bilateral diffuse infiltrates, slightly worse in the left upper lobe. Reviewed Impression . 1. Acute hypoxic respiratory failure secondary to COVID-19 pneumonia, acute respiratory distress syndrome and possible underlying fibrosis and emphysema. 2. Abnormal CT chest with diffuse pulmonary infiltrates with some ground glass infiltrates as well as evidence of the emphysema. May have a component of underlying fibrosis as well. No pulmonary embolism seen. May also have pneumatoceles related to COVID-19 3. Hyponatremia. 4. Suspected underlying severe chronic obstructive pulmonary disease. 5. COVID-19 viral pneumonia. 6. Abnormal chest x-ray with bilateral diffuse infiltrates related to COVID-19 viral pneumonia. Plan . Updated 08/08 Continue current support Prognosis is dismal Labs reviewed Chest x-ray reviewed, no significant change Empiric antibiotics, finished course Nutritional support Dexamethasone CCT 30 minutes Updated 08/07 Labs reviewed ABG noted PaO2 of 65 Dexamethasone Empiric antibiotics, finish course DVT prophylaxis GI prophylaxis Nutritional support When improves will obtain CT chest CCT 30 minutes REBECCA DUGGAN MD Aug 08, 2021 09:39
[2021-08-08] MEDS: FAMOTIDINE 20 MG/2 ML VIAL IVP SCH ×2 (09:47→21:08)
[2021-08-08] MEDS: DEXAMETHASONE SOD PHOS 4 MG/ML VIAL IVP SCH (09:47)
--- NOTE | 2021-08-08 10:45 | PN ---
DATE: 08/08/2021 SUBJECTIVE: The patient continued to be sedated, intubated and mechanically ventilated. He is now maintaining his oxygen saturation is 100% on FiO2 of 70%. The nursing staff did not voice any concerns that he had an eventful night. PHYSICAL EXAMINATION: GENERAL: When I examined him, he was somewhat pale, not jaundiced, cyanosed, no lymphadenopathy, no thyromegaly, no jugular venous distention. No limb edema. VITAL SIGNS: His heart rate was 41, blood pressure was 98/61, temperature 97.8, respiratory rate was 24 and oxygen saturation was 100% on FiO2 of 70%. HEAD, EYES, EARS, NOSE AND THROAT: Normocephalic, atraumatic. He has an orotracheal and orogastric tube. NECK: Supple, with no lymphadenopathy, no thyromegaly. HEART: Showed normal first and second heart sounds. No gallop or murmur. CHEST: Shows central trachea, equal bilateral expansion, air entry, vesicular breath sounds. No crepitation or rhonchi. ABDOMEN: Soft, nontender. NEUROLOGIC: He is heavily sedated. He has an indwelling Berumen catheter. His intake over the last 24 hours was 2600, output was 1690. LABORATORY DATA: This morning showed a white cell count 7800, hemoglobin 13, hematocrit 38, MCV 91, and platelet count 315,000. Serum sodium 140, potassium 4.3, chloride 104, bicarbonate 34, anion gap of 2, BUN 24, creatinine 0.7. Estimated GFR was 113 mL per minute. His glucose 105, calcium was 7.7. Total bilirubin, AST, ALT, alkaline phosphatase were normal. Total protein 5.3, albumin was 1.7. His arterial blood gas this morning showed a pH of 7.43, a pCO2 of 47, pO2 of 90, bicarbonate 30 and oxygen saturation was 97% on FiO2 of 70%. His chest x-ray showed that the endotracheal tube tip is 8.7 cm superior to the sabino. Enteric tube remains in the stomach, right internal jugular central line tip in the mid superior vena cava, left lung airspace opacities are mildly improved, right lung airspace opacities are unchanged. The cardiomediastinal silhouette is stable. There is no pneumothorax. Bones appear stable. ASSESSMENT: 1. Acute hypoxic respiratory failure. 2. COVID-19 pneumonia. 3. Superimposed community-acquired pneumonia. 4. Possible underlying pulmonary fibrosis. 5. Chronic obstructive pulmonary disease. PLAN: To continue with sedation, mechanical ventilation and wean as tolerated. Continue with IV antibiotic. Continue with dexamethasone. Continue with DVT and GI prophylaxis. His blood sugar has been well within normal range and therefore his Accu-Cheks and insulin sliding were discontinued. PLACIDO DR: Vannessa TID: [id number]
--- NOTE | 2021-08-08 14:43 | NUR ---
SS following up with discharge planning. SS reviewed pt chart and discussed with pt RN. Pt is currently on the vent at 60%. COVID19 positive. Pt on IV Decadron. Pt on Versed, Propofol, and Fentanyl. Not ready. SS will continue to follow for discharge planning.
[2021-08-09] VITALS (27 sets, daily range): BP systolic 93–122; BP diastolic 54–77
[2021-08-09] MEDS: PROPOFOL 100 ML IV PRN ×6 (02:24→23:20)
[2021-08-09] MEDS: fentaNYL HIGH DOSE PCA 55 ML IV PRN ×2 (02:28→20:13)
[2021-08-09] MEDS: MIDAZOLAM 100mg/100ml NS BAG 100 ML IV PRN ×2 (05:47→16:23)
[2021-08-09] MEDS: HEPARIN for SUB-Q USE 5,000 UNIT/ML VIAL. SQ SCH ×3 (06:02→21:03)
[2021-08-09 07:36] LABS: BASE EXCESS ABG 2 mmol/L (-3-3); HCO3 ABG 28 mmol/L (21-28); PCO2 ABG 50 mmHg (35-46); PO2 ABG 65 mmHg (65-108); SAT O2 ABG 93 % (92-99)
[2021-08-09 07:42] LABS: FIO2 ABG 60
[2021-08-09] MEDS: DEXAMETHASONE SOD PHOS 4 MG/ML VIAL IVP SCH (09:50)
[2021-08-09] MEDS: FAMOTIDINE 20 MG/2 ML VIAL IVP SCH ×2 (09:50→21:03)
--- NOTE | 2021-08-09 10:08 | PN ---
DATE: 08/09/2021 SUBJECTIVE: The patient has continued to be heavily sedated on fentanyl and Precedex as well as propofol and midazolam. He is now maintaining his oxygen saturation at 98% on FiO2 of 60%. Nursing staff did not voice any concerns that he had an eventful night. PHYSICAL EXAMINATION: GENERAL: When I examined him, he looked well and was clearly in no apparent respiratory distress. There is no pallor, jaundice, cyanosis or thyromegaly. No jugular venous distention. No lower limb edema. VITAL SIGNS: Her heart rate was 59, blood pressure is 104/66, temperature was 97.5, respiratory rate was 24 and oxygen saturation was 98% on FiO2 of 60%. HEAD, EYES, EARS, NOSE, AND THROAT: Normocephalic, atraumatic. Has orotracheal and orogastric tube. NECK: Supple. HEART: Normal first and second heart sounds. No gallop or murmur. CHEST: Shows central trachea with good chest expansion with air entry on the right side more than left. I could not appreciate any crepitation or rhonchi anteriorly. ABDOMEN: Distended, soft, nontender. NEUROLOGIC: He is heavily sedated. His intake over the last 24 hours was 2850, output was 1625. His chemistry and CBC were stable. LABORATORY DATA: His arterial blood gas this morning showed a pH of 7.37, a pCO2 of 50, pO2 of 65, bicarbonate 28 and oxygen saturation was 93% on FiO2 of 60%. ASSESSMENT: 1. Acute hypoxic respiratory failure. 2. COVID-19 pneumonia. 3. Superimposed community-acquired pneumonia. 4. Possible underlying pulmonary fibrosis. 5. Chronic obstructive pulmonary disease. PLAN: 1. Continue sedation, mechanical ventilation and wean as tolerated. 2. Continue IV antibiotics. 3. Continue with dexamethasone. 4. Continue with DVT and GI prophylaxis. Given that his blood sugar has been well within normal range, a decision was made to discontinue his Accu-Cheks and insulin sliding scale. ALIZA/JAN DR: ALIZA/marcio TID: [id number]
--- NOTE | 2021-08-09 11:14 | PDOC ---
PULMONARY PROGRESS NOTES DATE: 08/09/21 TIME: 11:12 Subjective No overnight events patient remains critically ill, currently on 60% FiO2 7 of PEEP Sedated on prop, fent, versed Afebrile Vitals Vital Signs Date Time Temp Pulse Resp B/P (MAP) Pulse Ox O2 Delivery O2 Flow Rate FiO2 08/09/21 10:16 98 Ventilator 08/09/21 09:00 59 24 104/66 08/09/21 08:00 97.5 97.5 Comments Visual exam done due to COVID-19. No paradoxical breathing. No skin rash no leg edema Labs Laboratory Tests Test 08/08/21 05:15 08/08/21 08:15 08/09/21 07:30 White Blood Count 7.8 x10^3/uL (4.0-11.0) Red Blood Count 4.16 x10^6/uL (4.30-5.70) Hemoglobin 12.7 g/dL (13.0-17.5) Hematocrit 37.8 % (39.0-53.0) Mean Corpuscular Volume 91 fL (79-100) Mean Corpuscular Hemoglobin 30 pg (25-35) Mean Corpuscular Hemoglobin Concent 34 g/dL (31-37) Red Cell Distribution Width 14.3 % (11.5-14.5) Platelet Count 315 x10^3/uL (140-400) Sodium Level 140 mmol/L (136-145) Potassium Level 4.3 mmol/L (3.5-5.1) Chloride Level 104 mmol/L (98-107) Carbon Dioxide Level 34 mmol/L (21-32) Anion Gap 2 (6-14) Blood Urea Nitrogen 24 mg/dL (8-26) Creatinine 0.7 mg/dL (0.7-1.3) Estimated GFR (Cockcroft-Gault) 113.9 BUN/Creatinine Ratio 34 (6-20) Glucose Level 105 mg/dL (70-99) Calcium Level 7.7 mg/dL (8.5-10.1) Total Bilirubin 0.4 mg/dL (0.2-1.0) Aspartate Amino Transf (AST/SGOT) 30 U/L (15-37) Alanine Aminotransferase (ALT/SGPT) 48 U/L (16-63) Alkaline Phosphatase 104 U/L (46-116) Total Protein 5.3 g/dL (6.4-8.2) Albumin 1.7 g/dL (3.4-5.0) Albumin/Globulin Ratio 0.5 (1.0-1.7) O2 Saturation 97 % (92-99) 93 % (92-99) Arterial Blood pH 7.43 (7.35-7.45) 7.37 (7.35-7.45) Arterial Blood pCO2 at Patient Temp 47 mmHg (35-46) 50 mmHg (35-46) Arterial Blood pO2 at Patient Temp 90 mmHg (65-108) 65 mmHg (65-108) Arterial Blood HCO3 30 mmol/L (21-28) 28 mmol/L (21-28) Arterial Blood Base Excess 5 mmol/L (-3-3) 2 mmol/L (-3-3) FiO2 70% ac 24 400 7 60 Laboratory Tests Test 08/09/21 07:30 O2 Saturation 93 % (92-99) Arterial Blood pH 7.37 (7.35-7.45) Arterial Blood pCO2 at Patient Temp 50 mmHg (35-46) Arterial Blood pO2 at Patient Temp 65 mmHg (65-108) Arterial Blood HCO3 28 mmol/L (21-28) Arterial Blood Base Excess 2 mmol/L (-3-3) FiO2 60 Comments Chest x-ray reviewed 08/06/2021. Bilateral diffuse infiltrates, slightly worse in the left upper lobe. Reviewed Impression . 1. Acute hypoxic respiratory failure secondary to COVID-19 pneumonia, acute respiratory distress syndrome and possible underlying fibrosis and emphysema. 2. Abnormal CT chest with diffuse pulmonary infiltrates with some ground glass infiltrates as well as evidence of the emphysema. May have a component of underlying fibrosis as well. No pulmonary embolism seen. May also have pneumatoceles related to COVID-19 3. Hyponatremia. 4. Suspected underlying severe chronic obstructive pulmonary disease. 5. COVID-19 viral pneumonia. 6. Abnormal chest x-ray with bilateral diffuse infiltrates related to COVID-19 viral pneumonia. Plan . Updated 08/09 We will continue current vent settings Dexamethasone Empiric antibiotics, finish the course Labs and chest x-ray reviewed Nutritional support DVT GI prophylaxis Updated 08/08 Continue current support Prognosis is dismal Labs reviewed Chest x-ray reviewed, no significant change Empiric antibiotics, finished course Nutritional support Dexamethasone CCT 30 minutes REBECCA DUGGAN MD Aug 09, 2021 11:14
[2021-08-10] VITALS (29 sets, daily range): BP systolic 94–136; BP diastolic 60–77
[2021-08-10] MEDS: PROPOFOL 100 ML IV PRN ×5 (03:09→19:32)
[2021-08-10] MEDS: MIDAZOLAM 100mg/100ml NS BAG 100 ML IV PRN ×3 (03:10→23:27)
[2021-08-10] MEDS: HEPARIN for SUB-Q USE 5,000 UNIT/ML VIAL. SQ SCH ×3 (06:14→21:17)
[2021-08-10 08:25] LABS: BASE EXCESS ABG 1 mmol/L (-3-3); HCO3 ABG 26 mmol/L (21-28); PCO2 ABG 39 mmHg (35-46); PO2 ABG 83 mmHg (65-108); SAT O2 ABG 96 % (92-99)
--- NOTE | 2021-08-10 08:26 | RAD ---
EXAM: Chest, single view. HISTORY: Respiratory failure. COMPARISON: 08/08/2021 FINDINGS: A frontal view of the chest is obtained. There has been interval increase in partially cons olidated lower lobe infiltrate superimposed on bilateral diffuse interstitial infiltrate. There is a small left pleural effusion. The heart is stable in size. There is an endotracheal tube within the mi d trachea. There is a nasogastric tube within the stomach. There is a right internal jugular catheter with the tip overlying expected location of the superior cavoatrial junction. There is no pneumothor ax. IMPRESSION: 1. Slight interval increase in partially consolidated lower lobe infiltrate superimposed on diffuse b ilateral interstitial infiltrate. 2. Support lines and tubes, described above. Electronically signed by: Ellen Castro MD (08/10/2021 8:24 AM) [id number]
[2021-08-10] MEDS: FAMOTIDINE 20 MG/2 ML VIAL IVP SCH ×2 (08:28→21:00)
[2021-08-10] MEDS: DEXAMETHASONE SOD PHOS 4 MG/ML VIAL IVP SCH (08:29)
--- NOTE | 2021-08-10 08:36 | PN ---
DATE: 08/10/2021 SUBJECTIVE: The patient continued to be heavily sedated on midazolam and propofol. Continued to be intubated and mechanically ventilated. He is now maintaining his oxygen saturation at 99% on FiO2 of 60%. The nursing staff did not voice any concerns that he has an eventful night. PHYSICAL EXAMINATION: GENERAL: When I examined him, he looked well with no pallor, jaundice, cyanosis, no lymphadenopathy, no thyromegaly, no jugular venous distention. No lower limb edema. VITAL SIGNS: His heart rate was 46, blood pressure was 97/61, temperature was 98, respiratory rate was 24 and oxygen saturation was 98% on FiO2 of 60%. HEAD, EYES, EARS, NOSE, AND THROAT: Normocephalic, atraumatic. He has orotracheal and orogastric tube. NECK: Supple. HEART: Normal first and second heart sounds, no gallop or murmur. CHEST: Clear to auscultation, no crepitation or rhonchi. With slightly better air entry on the right side. ABDOMEN: Scaphoid, soft, nontender. NEUROLOGIC: He is heavily sedated. His intake over the last 24 hours was 2288, output was 1800. LABORATORY DATA: His most recent lab, white cell count was 7800, hemoglobin 13, hematocrit 38, MCV 91 and platelet count 315,000. His chemistry showed a serum sodium of 140, potassium 4.3, chloride 104, bicarbonate 34, anion gap of 2, BUN 24, creatinine 0.7. Estimated GFR was 113 mL per minute. His glucose 105, calcium was 7.7. Total bilirubin, AST, ALT, alkaline phosphatase were normal. His total protein 5.3, albumin was 1.7. ASSESSMENT: 1. Acute hypoxic respiratory failure. 2. COVID-19 pneumonia. 3. Possible superimposed community-acquired pneumonia. 4. Possible underlying pulmonary fibrosis. 5. Chronic obstructive pulmonary disease. 6. Severe protein-calorie malnutrition. PLAN: To continue with sedation, mechanical ventilation, wean as tolerated. Continue IV antibiotic. Continue with dexamethasone. We will continue with DVT and GI prophylaxis. ALIZA/RODERICK DR: Vannessa TID: [id number]
--- NOTE | 2021-08-10 09:25 | PDOC ---
PULMONARY PROGRESS NOTES DATE: 08/10/21 TIME: 09:24 Subjective Remains critically ill, no overnight events Sedated on prop, fent, versed Afebrile Vitals Vital Signs Date Time Temp Pulse Resp B/P (MAP) Pulse Ox O2 Delivery O2 Flow Rate FiO2 08/10/21 08:15 99 Ventilator 08/10/21 06:00 46 24 97/61 08/10/21 04:00 98.0 98.0 Comments Visual exam done due to COVID-19. No paradoxical breathing. No skin rash no leg edema Labs Laboratory Tests Test 08/09/21 07:30 08/10/21 04:44 08/10/21 08:17 O2 Saturation 93 % (92-99) 96 % (92-99) Arterial Blood pH 7.37 (7.35-7.45) 7.43 (7.35-7.45) Arterial Blood pCO2 at Patient Temp 50 mmHg (35-46) 39 mmHg (35-46) Arterial Blood pO2 at Patient Temp 65 mmHg (65-108) 83 mmHg (65-108) Arterial Blood HCO3 28 mmol/L (21-28) 26 mmol/L (21-28) Arterial Blood Base Excess 2 mmol/L (-3-3) 1 mmol/L (-3-3) FiO2 60 60% vent Triglycerides Level 222 mg/dL (0-150) Laboratory Tests Test 08/10/21 04:44 08/10/21 08:17 Triglycerides Level 222 mg/dL (0-150) O2 Saturation 96 % (92-99) Arterial Blood pH 7.43 (7.35-7.45) Arterial Blood pCO2 at Patient Temp 39 mmHg (35-46) Arterial Blood pO2 at Patient Temp 83 mmHg (65-108) Arterial Blood HCO3 26 mmol/L (21-28) Arterial Blood Base Excess 1 mmol/L (-3-3) FiO2 60% vent Impression . 1. Acute hypoxic respiratory failure secondary to COVID-19 pneumonia, acute respiratory distress syndrome and possible underlying fibrosis and emphysema. 2. Abnormal CT chest with diffuse pulmonary infiltrates with some ground glass infiltrates as well as evidence of the emphysema. May have a component of underlying fibrosis as well. No pulmonary embolism seen. May also have pneumatoceles related to COVID-19 3. Hyponatremia. 4. Suspected underlying severe chronic obstructive pulmonary disease. 5. COVID-19 viral pneumonia. 6. Abnormal chest x-ray with bilateral diffuse infiltrates related to COVID-19 viral pneumonia. Plan . Updated 08/10 ABG noted oxygenating better Continue current support Finish course of antibiotics Nutritional support Chest x-ray reviewed, slightly worse Updated 08/09 We will continue current vent settings Dexamethasone Empiric antibiotics, finish the course Labs and chest x-ray reviewed Nutritional support DVT GI prophylaxis REBECCA DUGGAN MD Aug 10, 2021 09:25
[2021-08-10] MEDS: fentaNYL HIGH DOSE PCA 55 ML IV PRN (13:24)
--- NOTE | 2021-08-10 15:33 | NUR ---
SS following up with discharge planning. SS reviewed pt chart and discussed with pt RN. Pt is currently on the vent at 60%. COVID19 positive. Pt on Versed, Propofol, and Fentanyl. Not ready. SS will continue to follow for discharge planning.
[2021-08-11] VITALS (24 sets, daily range): BP systolic 87–163; BP diastolic 54–94
[2021-08-11] MEDS: PROPOFOL 100 ML IV PRN ×4 (00:30→22:31)
[2021-08-11] MEDS: HEPARIN for SUB-Q USE 5,000 UNIT/ML VIAL. SQ SCH ×3 (05:16→21:11)
[2021-08-11] MEDS: fentaNYL HIGH DOSE PCA 55 ML IV PRN (07:26)
[2021-08-11 08:06] LABS: BASE EXCESS ABG 6 mmol/L (-3-3); HCO3 ABG 33 mmol/L (21-28); PCO2 ABG 54 mmHg (35-46); PO2 ABG 68 mmHg (65-108); SAT O2 ABG 94 % (92-99)
[2021-08-11] MEDS: FAMOTIDINE 20 MG/2 ML VIAL IVP SCH ×2 (08:51→21:11)
[2021-08-11 09:15] LABS: FIO2 ABG 60% VENT
--- NOTE | 2021-08-11 09:26 | PDOC ---
PULMONARY PROGRESS NOTES DATE: 08/11/21 TIME: 09:24 Subjective Discussed with RN Continue current vent settings Sedated on prop, fent, versed Afebrile Vitals Vital Signs Date Time Temp Pulse Resp B/P (MAP) Pulse Ox O2 Delivery O2 Flow Rate FiO2 08/11/21 07:26 97 50.0 08/11/21 06:00 44 24 91/55 Ventilator 08/11/21 04:00 98.1 98.1 Lungs: Crackles Cardiovascular: S1, S2 Abdomen: Soft, Non-tender Extremities: No Edema Skin: Warm Labs Laboratory Tests Test 08/10/21 04:44 08/10/21 08:17 08/11/21 08:00 Triglycerides Level 222 mg/dL (0-150) O2 Saturation 96 % (92-99) 94 % (92-99) Arterial Blood pH 7.43 (7.35-7.45) 7.40 (7.35-7.45) Arterial Blood pCO2 at Patient Temp 39 mmHg (35-46) 54 mmHg (35-46) Arterial Blood pO2 at Patient Temp 83 mmHg (65-108) 68 mmHg (65-108) Arterial Blood HCO3 26 mmol/L (21-28) 33 mmol/L (21-28) Arterial Blood Base Excess 1 mmol/L (-3-3) 6 mmol/L (-3-3) FiO2 60% vent 60% vent Laboratory Tests Test 08/11/21 08:00 O2 Saturation 94 % (92-99) Arterial Blood pH 7.40 (7.35-7.45) Arterial Blood pCO2 at Patient Temp 54 mmHg (35-46) Arterial Blood pO2 at Patient Temp 68 mmHg (65-108) Arterial Blood HCO3 33 mmol/L (21-28) Arterial Blood Base Excess 6 mmol/L (-3-3) FiO2 60% vent Impression . 1. Acute hypoxic respiratory failure secondary to COVID-19 pneumonia, acute respiratory distress syndrome and possible underlying fibrosis and emphysema. 2. Abnormal CT chest with diffuse pulmonary infiltrates with some ground glass infiltrates as well as evidence of the emphysema. May have a component of underlying fibrosis as well. No pulmonary embolism seen. 3. Hyponatremia. 4. Suspected underlying severe chronic obstructive pulmonary disease. 5. COVID-19 viral pneumonia. 6. Abnormal chest x-ray with bilateral diffuse infiltrates related to COVID-19 viral pneumonia. Plan . Updated 08/11 ABG noted oxygenating better, discussed with RT Continue current support Finish course of antibiotics Nutritional support DVT GI prophylaxis May require trach next week REBECCA DUGGAN MD Aug 11, 2021 09:26
[2021-08-11] MEDS: MIDAZOLAM 100mg/100ml NS BAG 100 ML IV PRN ×2 (11:45→22:30)
[2021-08-12] VITALS (24 sets, daily range): BP systolic 97–159; BP diastolic 46–93
[2021-08-12] MEDS: fentaNYL HIGH DOSE PCA 55 ML IV PRN (05:05)
[2021-08-12] MEDS: HEPARIN for SUB-Q USE 5,000 UNIT/ML VIAL. SQ SCH ×3 (05:53→22:14)
[2021-08-12] MEDS: PROPOFOL 100 ML IV PRN ×2 (05:54→18:29)
[2021-08-12 06:01] LABS: HEMATOCRIT 42.1 % (39.0-53.0); HEMOGLOBIN 13.9 g/dL (13.0-17.5); RED BLOOD COUNT 4.66 x10^6/uL (4.30-5.70); RED CELL DISTRIBUTION WIDTH 14.6 % (11.5-14.5); WHITE BLOOD COUNT 13.5 x10^3/uL (4.0-11.0)
[2021-08-12 06:28] LABS: ALBUMIN 2.1 g/dL (3.4-5.0); ALBUMIN/GLOBULIN RATIO 0.5 (1.0-1.7); CREATININE 0.7 mg/dL (0.7-1.3); GFR 113.9; TOTAL BILIRUBIN 0.6 mg/dL (0.2-1.0); TOTAL PROTEIN 6.4 g/dL (6.4-8.2)
[2021-08-12 08:14] LABS: BASE EXCESS ABG 7 mmol/L (-3-3); HCO3 ABG 32 mmol/L (21-28); PCO2 ABG 51 mmHg (35-46); PO2 ABG 98 mmHg (65-108); SAT O2 ABG 98 % (92-99)
[2021-08-12] MEDS: FAMOTIDINE 20 MG/2 ML VIAL IVP SCH ×2 (08:38→20:31)
--- NOTE | 2021-08-12 08:43 | PN ---
DATE: 08/12/2021 SUBJECTIVE: The patient continued to be sedated, intubated and mechanically ventilated. He is now maintaining his oxygen saturation 100% on FiO2 of 60%. Nursing staff stated that they are cutting down on his sedation and that weaning trials can be started. PHYSICAL EXAMINATION: GENERAL: When I examined him, he looked well and was clearly in no apparent respiratory distress. There was no pallor, jaundice, cyanosis or thyromegaly. No jugular venous distention. No limb edema. VITAL SIGNS: His heart rate was 70, blood pressure was 97/46, temperature was 99.3, respiratory rate was 24 and oxygen saturation was 99% on FiO2 of 60%. HEAD, EYES, EARS, NOSE, AND THROAT: Head is normocephalic, atraumatic. Has orotracheal and orogastric tube in place. NECK: Supple. HEART: Normal first and second heart sounds. No gallop or murmur. CHEST: Shows central trachea. Good chest expansion, air entry on the right side, this extended on the left side. ABDOMEN: Soft, nontender. NEUROLOGIC: He was heavily sedated. His intake over the last 24 hours was 2800, output was 1875. LABORATORY DATA: As of this morning, his white cell count was up to 13,500, hemoglobin 14, hematocrit 42, MCV 90 and platelet count 359,000. His chemistry showed a serum sodium 137, potassium 4, chloride 101, bicarbonate 31, anion gap of 5, BUN 28, creatinine 0.7. Estimated GFR was 113 mL per minute. His glucose was 100, calcium was 8. Total bilirubin, AST, ALT were normal. Alkaline phosphatase slightly elevated. Total protein 6.4, albumin was 2.1. ASSESSMENT: 1. Acute hypoxic respiratory failure. 2. COVID-19 pneumonia. 3. Possible superimposed community-acquired pneumonia. 4. Possible underlying pulmonary fibrosis. 5. Chronic obstructive pulmonary disease. 6. Severe protein-calorie malnutrition. PLAN: To continue with sedation, mechanical ventilation, wean as tolerated. Continue with the IV antibiotic. Continue GI and DVT prophylaxis. ALIZA/BARRY DR: Vannessa TID: [id number]
--- NOTE | 2021-08-12 09:19 | PDOC ---
PULMONARY PROGRESS NOTES DATE: 08/12/21 TIME: 09:18 Subjective No overnight events Continue current vent settings currently on 60% 7 of PEEP Discussed with RN, decrease sedation Sedated on prop, fent, versed Afebrile Vitals Vital Signs Date Time Temp Pulse Resp B/P (MAP) Pulse Ox O2 Delivery O2 Flow Rate FiO2 08/12/21 08:18 100 Ventilator 08/12/21 06:00 70 24 97/46 08/12/21 04:00 99.3 99.3 08/11/21 07:56 50.0 Lungs: Crackles Cardiovascular: S1, S2 Abdomen: Soft, Non-tender Extremities: No Edema Skin: Warm Labs Laboratory Tests Test 08/11/21 08:00 08/12/21 00:05 08/12/21 05:20 08/12/21 05:22 O2 Saturation 94 % (92-99) Arterial Blood pH 7.40 (7.35-7.45) Arterial Blood pCO2 at Patient Temp 54 mmHg (35-46) Arterial Blood pO2 at Patient Temp 68 mmHg (65-108) Arterial Blood HCO3 33 mmol/L (21-28) Arterial Blood Base Excess 6 mmol/L (-3-3) FiO2 60% vent Glucose (Fingerstick) 116 mg/dL (70-99) 106 mg/dL (70-99) White Blood Count 13.5 x10^3/uL (4.0-11.0) Red Blood Count 4.66 x10^6/uL (4.30-5.70) Hemoglobin 13.9 g/dL (13.0-17.5) Hematocrit 42.1 % (39.0-53.0) Mean Corpuscular Volume 90 fL (79-100) Mean Corpuscular Hemoglobin 30 pg (25-35) Mean Corpuscular Hemoglobin Concent 33 g/dL (31-37) Red Cell Distribution Width 14.6 % (11.5-14.5) Platelet Count 359 x10^3/uL (140-400) Sodium Level 137 mmol/L (136-145) Potassium Level 4.0 mmol/L (3.5-5.1) Chloride Level 101 mmol/L (98-107) Carbon Dioxide Level 31 mmol/L (21-32) Anion Gap 5 (6-14) Blood Urea Nitrogen 28 mg/dL (8-26) Creatinine 0.7 mg/dL (0.7-1.3) Estimated GFR (Cockcroft-Gault) 113.9 BUN/Creatinine Ratio 40 (6-20) Glucose Level 100 mg/dL (70-99) Calcium Level 8.0 mg/dL (8.5-10.1) Total Bilirubin 0.6 mg/dL (0.2-1.0) Aspartate Amino Transf (AST/SGOT) 31 U/L (15-37) Alanine Aminotransferase (ALT/SGPT) 59 U/L (16-63) Alkaline Phosphatase 135 U/L (46-116) Total Protein 6.4 g/dL (6.4-8.2) Albumin 2.1 g/dL (3.4-5.0) Albumin/Globulin Ratio 0.5 (1.0-1.7) Laboratory Tests Test 08/12/21 00:05 08/12/21 05:20 08/12/21 05:22 Glucose (Fingerstick) 116 mg/dL (70-99) 106 mg/dL (70-99) White Blood Count 13.5 x10^3/uL (4.0-11.0) Red Blood Count 4.66 x10^6/uL (4.30-5.70) Hemoglobin 13.9 g/dL (13.0-17.5) Hematocrit 42.1 % (39.0-53.0) Mean Corpuscular Volume 90 fL (79-100) Mean Corpuscular Hemoglobin 30 pg (25-35) Mean Corpuscular Hemoglobin Concent 33 g/dL (31-37) Red Cell Distribution Width 14.6 % (11.5-14.5) Platelet Count 359 x10^3/uL (140-400) Sodium Level 137 mmol/L (136-145) Potassium Level 4.0 mmol/L (3.5-5.1) Chloride Level 101 mmol/L (98-107) Carbon Dioxide Level 31 mmol/L (21-32) Anion Gap 5 (6-14) Blood Urea Nitrogen 28 mg/dL (8-26) Creatinine 0.7 mg/dL (0.7-1.3) Estimated GFR (Cockcroft-Gault) 113.9 BUN/Creatinine Ratio 40 (6-20) Glucose Level 100 mg/dL (70-99) Calcium Level 8.0 mg/dL (8.5-10.1) Total Bilirubin 0.6 mg/dL (0.2-1.0) Aspartate Amino Transf (AST/SGOT) 31 U/L (15-37) Alanine Aminotransferase (ALT/SGPT) 59 U/L (16-63) Alkaline Phosphatase 135 U/L (46-116) Total Protein 6.4 g/dL (6.4-8.2) Albumin 2.1 g/dL (3.4-5.0) Albumin/Globulin Ratio 0.5 (1.0-1.7) Impression . 1. Acute hypoxic respiratory failure secondary to COVID-19 pneumonia, acute respiratory distress syndrome and possible underlying fibrosis and emphysema. 2. Abnormal CT chest with diffuse pulmonary infiltrates with some ground glass infiltrates as well as evidence of the emphysema. May have a component of underlying fibrosis as well. No pulmonary embolism seen. 3. Hyponatremia. 4. Suspected underlying severe chronic obstructive pulmonary disease. 5. COVID-19 viral pneumonia. 6. Abnormal chest x-ray with bilateral diffuse infiltrates related to COVID-19 viral pneumonia. Plan . Updated 08/12 Creatinine noted to be normal ABG noted oxygenating better, discussed with RT Continue current support Finish course of antibiotics Nutritional support DVT GI prophylaxis May require trach next week REBECCA DUGGAN MD Aug 12, 2021 09:19
[2021-08-12 09:28] LABS: FIO2 ABG 60
[2021-08-12] MEDS ORDERED: STERILE WATER for RESP 1,000 ML BAG. INH PRN (09:45)
[2021-08-12] MEDS: MIDAZOLAM 100mg/100ml NS BAG 100 ML IV PRN (12:30)
--- NOTE | 2021-08-12 22:37 | PN ---
DATE: 08/11/2021 SUBJECTIVE: The patient continued to be paralyzed, continued to be heavily sedated on fentanyl, propofol and Versed. He continued to be intubated and mechanically ventilated, maintaining his oxygen saturation at 99% on FiO2 of 60%. PHYSICAL EXAMINATION: GENERAL: When I examined him, he was pale, not jaundiced or cyanosed. No lymphadenopathy, no thyromegaly, no jugular venous distention. No limb edema. VITAL SIGNS: His heart rate was 44, blood pressure 91/55, temperature 98.1, respiratory rate was 24 and oxygen saturation was 99% on FiO2 of 60%. HEAD, EYES, EARS, NOSE AND THROAT: Normocephalic, atraumatic. NECK: Supple. HEART: Showed normal first and second heart sounds. No gallop or murmur. CHEST: Shows central trachea. Good chest expansion with air entry on the right side. [ chest expansion with air entry on the left side. ABDOMEN: Distended, soft, nontender. NEUROLOGIC: He was heavily sedated. His intake was 3280, output was 2500. LABORATORY DATA: His most recent white cell count was 7800, hemoglobin 12.7, hematocrit 38, MCV 91, and platelet count 315,000. His most recent serum sodium was 140, potassium 4.3, chloride 104, bicarbonate 34, anion gap of 2, BUN 24, creatinine 0.7. Estimated GFR was 113 mL per minute. Glucose 105, calcium was 7.7. Total bilirubin, AST, ALT, alkaline phosphatase were normal. Total protein 5.3, albumin was 1.7. ASSESSMENT: 1. Acute hypoxic respiratory failure. 2. COVID-19 pneumonia. 3. Possible superimposed community-acquired pneumonia. 4. Possible underlying pulmonary fibrosis. 5. Chronic obstructive pulmonary disease. 6. Severe protein-calorie malnutrition. PLAN: To continue with sedation and mechanical ventilation, wean as tolerated. Continue with IV antibiotic. Continue with dexamethasone. Continue with DVT and GI prophylaxis. VEL/ATTILA DR: ALIZA/marcio TID: [id number]
[2021-08-13] VITALS (24 sets, daily range): BP systolic 85–161; BP diastolic 52–96
[2021-08-13] MEDS: PROPOFOL 100 ML IV PRN ×4 (00:35→20:37)
[2021-08-13] MEDS: MIDAZOLAM 100mg/100ml NS BAG 100 ML IV PRN ×2 (02:40→17:48)
[2021-08-13] MEDS: HEPARIN for SUB-Q USE 5,000 UNIT/ML VIAL. SQ SCH ×3 (05:30→22:26)
[2021-08-13 08:07] LABS: BASE EXCESS ABG 5 mmol/L (-3-3); HCO3 ABG 31 mmol/L (21-28); PCO2 ABG 51 mmHg (35-46); PO2 ABG 67 mmHg (65-108); SAT O2 ABG 93 % (92-99)
--- NOTE | 2021-08-13 08:09 | RAD ---
EXAMINATION: Chest radiograph. VIEWS: 1 COMPARISON: 01/08/2022 INDICATION:65 years, Male, respiratory failure. FINDINGS: Normal cardiomediastinal silhouette. Essentially unchanged diffuse bilateral pulmonary infiltrates. N o pleural effusion or pneumothorax. No acute osseous process. Endotracheal tube tip locates approxima tely 7.7 cm proximal to the sabino. Enteric tube tip is off image, presumably in the stomach. Right I J central venous catheter remains unchanged in position. IMPRESSION: Essentially unchanged diffuse bilateral pulmonary infiltrates. Electronically signed by: Luis Matute MD (08/13/2021 8:06 AM) [id number]
[2021-08-13 08:10] LABS: FIO2 ABG 40
[2021-08-13] MEDS: FAMOTIDINE 20 MG/2 ML VIAL IVP SCH ×2 (08:47→20:38)
--- NOTE | 2021-08-13 08:49 | PDOC ---
PULMONARY PROGRESS NOTES DATE: 08/13/21 TIME: 08:49 Subjective Discussed with RN and RT Currently on 40% FiO2, 7 of PEEP Vitals Vital Signs Date Time Temp Pulse Resp B/P (MAP) Pulse Ox O2 Delivery O2 Flow Rate FiO2 08/13/21 07:49 100 Ventilator 08/13/21 07:00 80 27 94/64 08/13/21 04:00 99.9 99.9 Lungs: Crackles Cardiovascular: S1, S2 Abdomen: Soft, Non-tender Extremities: No Edema Skin: Warm Labs Laboratory Tests Test 08/12/21 00:05 08/12/21 05:20 08/12/21 05:22 08/12/21 08:02 Glucose (Fingerstick) 116 mg/dL (70-99) 106 mg/dL (70-99) White Blood Count 13.5 x10^3/uL (4.0-11.0) Red Blood Count 4.66 x10^6/uL (4.30-5.70) Hemoglobin 13.9 g/dL (13.0-17.5) Hematocrit 42.1 % (39.0-53.0) Mean Corpuscular Volume 90 fL (79-100) Mean Corpuscular Hemoglobin 30 pg (25-35) Mean Corpuscular Hemoglobin Concent 33 g/dL (31-37) Red Cell Distribution Width 14.6 % (11.5-14.5) Platelet Count 359 x10^3/uL (140-400) Sodium Level 137 mmol/L (136-145) Potassium Level 4.0 mmol/L (3.5-5.1) Chloride Level 101 mmol/L (98-107) Carbon Dioxide Level 31 mmol/L (21-32) Anion Gap 5 (6-14) Blood Urea Nitrogen 28 mg/dL (8-26) Creatinine 0.7 mg/dL (0.7-1.3) Estimated GFR (Cockcroft-Gault) 113.9 BUN/Creatinine Ratio 40 (6-20) Glucose Level 100 mg/dL (70-99) Calcium Level 8.0 mg/dL (8.5-10.1) Total Bilirubin 0.6 mg/dL (0.2-1.0) Aspartate Amino Transf (AST/SGOT) 31 U/L (15-37) Alanine Aminotransferase (ALT/SGPT) 59 U/L (16-63) Alkaline Phosphatase 135 U/L (46-116) Total Protein 6.4 g/dL (6.4-8.2) Albumin 2.1 g/dL (3.4-5.0) Albumin/Globulin Ratio 0.5 (1.0-1.7) O2 Saturation 98 % (92-99) Arterial Blood pH 7.42 (7.35-7.45) Arterial Blood pCO2 at Patient Temp 51 mmHg (35-46) Arterial Blood pO2 at Patient Temp 98 mmHg (65-108) Arterial Blood HCO3 32 mmol/L (21-28) Arterial Blood Base Excess 7 mmol/L (-3-3) FiO2 60 Test 08/13/21 08:00 O2 Saturation 93 % (92-99) Arterial Blood pH 7.40 (7.35-7.45) Arterial Blood pCO2 at Patient Temp 51 mmHg (35-46) Arterial Blood pO2 at Patient Temp 67 mmHg (65-108) Arterial Blood HCO3 31 mmol/L (21-28) Arterial Blood Base Excess 5 mmol/L (-3-3) FiO2 40 Laboratory Tests Test 08/13/21 08:00 O2 Saturation 93 % (92-99) Arterial Blood pH 7.40 (7.35-7.45) Arterial Blood pCO2 at Patient Temp 51 mmHg (35-46) Arterial Blood pO2 at Patient Temp 67 mmHg (65-108) Arterial Blood HCO3 31 mmol/L (21-28) Arterial Blood Base Excess 5 mmol/L (-3-3) FiO2 40 Impression . 1. Acute hypoxic respiratory failure secondary to COVID-19 pneumonia, acute respiratory distress syndrome and possible underlying fibrosis and emphysema. 2. Abnormal CT chest with diffuse pulmonary infiltrates with some ground glass infiltrates as well as evidence of the emphysema. May have a component of underlying fibrosis as well. No pulmonary embolism seen. 3. Hyponatremia. 4. Suspected underlying severe chronic obstructive pulmonary disease. 5. COVID-19 viral pneumonia. 6. Abnormal chest x-ray with bilateral diffuse infiltrates related to COVID-19 viral pneumonia. Plan . Updated 08/13 Unable to wean, will proceed with tracheotomy tube Creatinine noted to be normal ABG noted, PaO2 67 Continue current support Finish course of antibiotics Nutritional support DVT GI prophylaxis CCT 30 minutes REBECCA DUGGAN MD Aug 13, 2021 08:49
--- NOTE | 2021-08-13 09:11 | PN ---
DATE: 08/13/2021 SUBJECTIVE: The patient continued to be sedated, intubated and mechanically ventilated; however, attempts on cutting down his sedation, he becomes very agitated, restless, fighting the ventilator. PHYSICAL EXAMINATION: GENERAL: When I saw him this morning, he looked well and was clearly in no apparent respiratory distress. There was no pallor, jaundice, cyanosis, no lymphadenopathy, no thyromegaly, no jugular venous distention. No lower limb edema. VITAL SIGNS: His heart rate was 80, blood pressure was 94/64, temperature was 99.9, respiratory rate 27 and oxygen saturation was 100% on FiO2 of 40%. HEAD, EYES, EARS, NOSE AND THROAT: Head is normocephalic, atraumatic. Has orotracheal and orogastric tube. NECK: Supple. HEART: Showed normal first and second heart sounds. No gallop, rub or murmur. CHEST: Clear to auscultation, no crepitation or rhonchi. ABDOMEN: Distended, soft. NEUROLOGIC: He was heavily sedated. His intake was 2550, output was 1500. LABORATORY DATA: Shows mostly stable. His blood gases done this morning showed a pH of 7.40, a pCO2 of 51, pO2 of 67, bicarbonate 31, oxygen saturation was 93% on FiO2 of 40%. DIAGNOSTIC DATA: His chest x-ray showed normal cardiomediastinal silhouette that is essentially unchanged, diffuse bilateral pulmonary infiltrate, no pleural effusion or pneumothorax. No acute osseous process. His endotracheal tube tip located approximately 7.7 cm proximal to the sabino. Enteric tube tip off image, presumably in the stomach. Right internal jugular central venous catheter remains unchanged in position. ASSESSMENT: 1. Acute hypoxic respiratory failure. 2. COVID-19 pneumonia. 3. Presumably superimposed community-acquired pneumonia. 4. Possible underlying pulmonary fibrosis. 5. Chronic obstructive pulmonary disease. 6. Severe protein-calorie malnutrition. PLAN: To continue taking him off sedation and attempt to wean him as tolerated. Continue with IV antibiotic. Continue with dexamethasone. Continue with DVT and GI prophylaxis. ALIZA/BARRY DR: Vannessa TID: [id number]
--- NOTE | 2021-08-13 15:51 | NUR ---
SS following up with discharge planning. SS reviewed pt chart and discussed with pt RN. Pt is currently on the vent at 40%. COVID19 positive. Pt on Versed, Propofol, and Fentanyl. Not ready. SS will continue to follow for discharge planning.
--- NOTE | 2021-08-13 17:05 | NUR ---
Wound/Ostomy Care Wound Type/Assessment: Wound care consult for left 2nd toe PU unsteageable and left lateral plantar foot DTI. Pt is covid positive and intubated at this time. No other wounds noted on head to toe assessment, pt was briefly turned and no wounds noted on his back or buttocks, pt tolerating turning okay, pt left turned to his left side. All wounds cleansed and assessed. Wound care recommendations left in room. Treatment Recommendations/Plan: Cleanse wounds and pat dry. Left 2nd toe: paint with Betadine daily. Left lateral plantar foot: paint with Betadine and cover with foam, change every 2-3 days. Heel-medix boots to bilateral feet. Avoid pt putting pressure on feet, keep feet off end of the bed, elevate legs on pillows. Education provided: intubated, unable to educate Offloading surface/device: heel medix boots, pillows, purple wedge. Recommended Referrals/Tests: n/a Discharge Recommendations for dressings: same as above.
[2021-08-13] MEDS: fentaNYL HIGH DOSE PCA 55 ML IV PRN (17:47)
[2021-08-13] MEDS: DEXMEDETOMIDINE 400 MCG in IV NORMAL SALINE 100ML 96 ML IV PRN (23:07)
[2021-08-14] VITALS (24 sets, daily range): BP systolic 88–151; BP diastolic 60–86
[2021-08-14] MEDS: DEXMEDETOMIDINE 400 MCG in IV NORMAL SALINE 100ML 96 ML IV PRN ×4 (02:17→22:51)
[2021-08-14] MEDS: HEPARIN for SUB-Q USE 5,000 UNIT/ML VIAL. SQ SCH ×3 (06:20→21:10)
[2021-08-14 08:23] LABS: BASE EXCESS ABG 3 mmol/L (-3-3); HCO3 ABG 28 mmol/L (21-28); PCO2 ABG 42 mmHg (35-46); PO2 ABG 75 mmHg (65-108); SAT O2 ABG 95 % (92-99)
[2021-08-14 08:28] LABS: FIO2 ABG 40/AC24 400 40% +7
[2021-08-14] MEDS: FAMOTIDINE 20 MG/2 ML VIAL IVP SCH ×2 (08:32→21:11)
--- NOTE | 2021-08-14 08:42 | PN ---
DATE: 08/14/2021 SUBJECTIVE: The patient is resting, slightly propped up in bed, in no apparent distress. He continued to be sedated, mechanically ventilated, maintaining his oxygen saturation at 99% on FiO2 of 40%. Nursing staff did not voice any concerns that he had an eventful night. PHYSICAL EXAMINATION: GENERAL: When I examined him, he looked well with no pallor, jaundice, cyanosis or thyromegaly. No jugular venous distention. No limb edema. VITAL SIGNS: His heart rate was 87, blood pressure was 140/77, temperature 98.7, respiratory rate was 24 and oxygen saturation was 99% on FiO2 of 40%. HEAD, EYES, EARS, NOSE AND THROAT: Showed he is normocephalic, atraumatic. He has orotracheal and orogastric tube in place. NECK: Supple. HEART: Showed normal first and second heart sounds. No gallop, rub or murmur. CHEST: Shows central trachea with good chest expansion with air entry on the right side. The air entry expansion is much less on the left side. ABDOMEN: Soft, nontender. NEUROLOGIC: He is heavily sedated. His intake was 2525, output 2175. No lab works were done. His chest x-ray yesterday showed that the patient has normal cardiomediastinal silhouette, essentially unchanged, diffuse bilateral pulmonary infiltrate, no pleural effusion or pneumothorax. No acute osseous abnormality. Endotracheal tube tip located approximately 7.7 cm proximal to the sabino. Enteric tube tip is off image, presumably in the stomach. Right internal jugular central venous catheter remains unchanged in position. ASSESSMENT: 1. Acute hypoxic respiratory failure. 2. COVID-19 pneumonia. 3. Presumed superimposed community-acquired pneumonia. 4. Possible underlying pulmonary fibrosis. 5. Chronic obstructive pulmonary disease. 6. Severe protein-calorie malnutrition. PLAN: Continue with mechanical ventilation, wean as tolerated. Continue with IV antibiotic. Continue with DVT and GI prophylaxis. ALIZA/RODERICK BARONE: Vannessa TID: [id number]
--- NOTE | 2021-08-14 14:55 | PDOC2 ---
CONSULT Date of Consult Date of Consult DATE: 08/14/21 TIME: 14:51 Reason for Consult Reason for Consult: Respiratory failure Referring Physician Referring Physician: Dr. Reed Identification/Chief Complaint Chief Complaint none Source Source: Chart review History of Present Illness Reason for Visit: 65 yo M with respiratory failure. Unable to wean at this point. Pt sedated. Past Medical History Pulmonary: COPD Past Surgical History Past Surgical History: No pertinent history Family History Family History: Family History Unknown Social History 1 pack per day ALCOHOL: heavy Current Medications Current Medications Current Medications Dexamethasone Sodium Phosphate (Decadron) 6 mg DAILY IVP Last administered on 08/10/21at 08:29; Start 08/01/21 at 09:00; Stop 08/10/21 at 09:01; Status DC Heparin Sodium (Porcine) (Heparin Sodium) 5,000 unit Q8HRS SQ Last administered on 08/14/21at 13:06; Start 07/31/21 at 14:00 Famotidine (Pepcid Vial) 20 mg BID IVP Last administered on 08/14/21at 08:32; Start 07/31/21 at 14:00 Fentanyl Citrate 30 ml @ 2.5 mls/hr CONT PRN IV SEE PROTOCOL Last administered on 07/31/21at 12:49; Start 07/31/21 at 12:15; Stop 07/31/21 at 16:19; Status DC Midazolam HCl 100 ml @ 1 mls/hr CONT PRN IV SEE PROTOCOL Last administered on 08/13/21at 17:48; Start 07/31/21 at 12:15 Propofol 100 ml @ 3.45 mls/hr CONT PRN IV PER PROTOCOL Last administered on 08/13/21at 20:37; Start 07/31/21 at 12:15 Vecuronium Fowler (Norcuron Bolus) 6 mg PRN 1X PRN IV VENT INDUCTION; Start 07/31/21 at 12:15; Stop 08/01/21 at 12:14; Status DC Glycerin/ Hypromellose/ Polyethylene (Artificial Tears) 1 drop PRN Q1HR PRN OU DRY EYE; Start 07/31/21 at 12:15 Dexmedetomidine HCl 400 mcg/ Sodium Chloride 100 ml @ 5.75 mls/hr CONT PRN IV PER PROTOCOL Last administered on 08/14/21at 09:42; Start 07/31/21 at 12:15 Midazolam HCl (Versed) 5 mg PRN 1X PRN IVP VENT INDUCTION; Start 07/31/21 at 12:15; Stop 08/01/21 at 12:14; Status DC Sodium Chloride 500 ml @ 500 mls/hr 1X PRN PRN IV SEE COMMENTS; Start 07/31/21 at 12:15 Atropine Sulfate (ATROPINE 0.5mg SYRINGE) 0.5 mg PRN Q5MIN PRN IV SEE COMMENTS; Start 07/31/21 at 12:15 Famotidine (Pepcid Vial) 20 mg BID IVP ; Start 07/31/21 at 21:00; Status UNV Piperacillin Sod/ Tazobactam Sod (Zosyn Per Pharmacy) 1 each PRN DAILY PRN MC SEE COMMENTS; Start 07/31/21 at 15:15; Stop 08/08/21 at 12:29; Status DC Piperacillin Sod/ Tazobactam Sod 3.375 gm/Sodium Chloride 50 ml @ 100 mls/hr Q6HRS IV Last administered on 08/07/21at 11:20; Start 07/31/21 at 18:00; Stop 08/07/21 at 17:59; Status DC Fentanyl Citrate 55 ml @ 1 mls/hr CONT PRN IV SEE PROTOCOL Last administered on 08/13/21at 17:47; Start 07/31/21 at 15:45 Insulin Human Lispro (HumaLOG) 0-7 UNITS Q6HRS SQ ; Start 08/02/21 at 06:00; Stop 08/07/21 at 08:09; Status DC Dextrose (Dextrose 50%-Water Syringe) 12.5 gm PRN Q15MIN PRN IV SEE COMMENTS; Start 08/01/21 at 23:00 Vecuronium Fowler (Norcuron Bolus) 6 mg PRN Q6HRS PRN IV VENTILATOR COMPLIANCE Last administered on 08/06/21at 13:44; Start 08/06/21 at 13:45 Vecuronium Fowler (Norcuron Bolus) 10 mg STK-MED ONCE IV ; Start 08/06/21 at 13:34; Stop 08/07/21 at 13:38; Status DC Sterile Water (WATER for RESP) 1,000 ml CONT PRN INH VIA VAPOTHERM DEVICE; Start 08/12/21 at 09:45; Status Cancel Allergies Allergies: Coded Allergies: No Known Drug Allergies (Unverified , 1/18/22) ROS Review of System unobtainable Physical Exam General: No acute distress HEENT: Atraumatic Lungs: Normal air movement Abdomen: Soft Extremities: No clubbing, No cyanosis Vitals VITALS Vital Signs Date Time Temp Pulse Resp B/P (MAP) Pulse Ox O2 Delivery O2 Flow Rate FiO2 08/14/21 14:00 76 24 109/60 100 Ventilator 08/14/21 12:00 98.0 98.0 08/13/21 18:17 50.0 Labs Labs Laboratory Tests Test 08/13/21 08:00 08/14/21 08:00 O2 Saturation 93 % (92-99) 95 % (92-99) Arterial Blood pH 7.40 (7.35-7.45) 7.43 (7.35-7.45) Arterial Blood pCO2 at Patient Temp 51 mmHg (35-46) 42 mmHg (35-46) Arterial Blood pO2 at Patient Temp 67 mmHg (65-108) 75 mmHg (65-108) Arterial Blood HCO3 31 mmol/L (21-28) 28 mmol/L (21-28) Arterial Blood Base Excess 5 mmol/L (-3-3) 3 mmol/L (-3-3) FiO2 40 40/ac24 400 40% +7 Laboratory Tests Test 08/14/21 08:00 O2 Saturation 95 % (92-99) Arterial Blood pH 7.43 (7.35-7.45) Arterial Blood pCO2 at Patient Temp 42 mmHg (35-46) Arterial Blood pO2 at Patient Temp 75 mmHg (65-108) Arterial Blood HCO3 28 mmol/L (21-28) Arterial Blood Base Excess 3 mmol/L (-3-3) FiO2 40/ac24 400 40% +7 Images Images CXR bilateral infiltrates Assessment/Plan Assessment/Plan Respiratory failure ameena follow for possible tracheostomy. Thanks for consult! TERESA ODEN MD Aug 14, 2021 14:55
--- NOTE | 2021-08-14 15:52 | PDOC ---
PULMONARY PROGRESS NOTES DATE: 08/14/21 TIME: 15:51 Subjective Currently on 6 of PEEP decreased from 8 40% FiO2 Discussed with RT and RN Vitals Vital Signs Date Time Temp Pulse Resp B/P (MAP) Pulse Ox O2 Delivery O2 Flow Rate FiO2 08/14/21 15:22 100 Ventilator 08/14/21 14:00 76 24 109/60 08/14/21 12:00 98.0 98.0 08/13/21 18:17 50.0 Lungs: Crackles Cardiovascular: S1, S2 Abdomen: Soft, Non-tender Extremities: No Edema Skin: Warm Labs Laboratory Tests Test 08/13/21 08:00 08/14/21 08:00 O2 Saturation 93 % (92-99) 95 % (92-99) Arterial Blood pH 7.40 (7.35-7.45) 7.43 (7.35-7.45) Arterial Blood pCO2 at Patient Temp 51 mmHg (35-46) 42 mmHg (35-46) Arterial Blood pO2 at Patient Temp 67 mmHg (65-108) 75 mmHg (65-108) Arterial Blood HCO3 31 mmol/L (21-28) 28 mmol/L (21-28) Arterial Blood Base Excess 5 mmol/L (-3-3) 3 mmol/L (-3-3) FiO2 40 40/ac24 400 40% +7 Laboratory Tests Test 08/14/21 08:00 O2 Saturation 95 % (92-99) Arterial Blood pH 7.43 (7.35-7.45) Arterial Blood pCO2 at Patient Temp 42 mmHg (35-46) Arterial Blood pO2 at Patient Temp 75 mmHg (65-108) Arterial Blood HCO3 28 mmol/L (21-28) Arterial Blood Base Excess 3 mmol/L (-3-3) FiO2 40/ac24 400 40% +7 Impression . 1. Acute hypoxic respiratory failure secondary to COVID-19 pneumonia, acute respiratory distress syndrome and possible underlying fibrosis and emphysema. 2. Abnormal CT chest with diffuse pulmonary infiltrates with some ground glass infiltrates as well as evidence of the emphysema. May have a component of underlying fibrosis as well. No pulmonary embolism seen. 3. Hyponatremia. 4. Suspected underlying severe chronic obstructive pulmonary disease. 5. COVID-19 viral pneumonia. 6. Abnormal chest x-ray with bilateral diffuse infiltrates related to COVID-19 viral pneumonia. Plan . Updated 2/[address] Swenson Unable to wean, will proceed with tracheotomy tube Continue current support Finish course of antibiotics Nutritional support DVT GI prophylaxis CCT 30 minutes REBECCA DUGGAN MD Aug 14, 2021 15:52
[2021-08-15] VITALS (25 sets, daily range): BP systolic 83–161; BP diastolic 50–91
[2021-08-15] MEDS: MIDAZOLAM 100mg/100ml NS BAG 100 ML IV PRN ×2 (01:13→17:19)
[2021-08-15] MEDS: DEXMEDETOMIDINE 400 MCG in IV NORMAL SALINE 100ML 96 ML IV PRN ×3 (01:14→16:25)
[2021-08-15] MEDS: HEPARIN for SUB-Q USE 5,000 UNIT/ML VIAL. SQ SCH ×3 (05:47→21:32)
[2021-08-15 06:23] LABS: BASO # 0.1 x10^3/uL (0.0-0.2); BASO % 1 % (0-3); EOS # 0.4 x10^3/uL (0.0-0.7); EOS % 4 % (0-3); HEMATOCRIT 34.6 % (39.0-53.0); HEMOGLOBIN 11.5 g/dL (13.0-17.5); LYMPH # 1.3 x10^3/uL (1.0-4.8); LYMPH % 14 % (24-48); MEAN CORPUSCULAR HEMOGLOBIN 30 pg (25-35); MEAN CORPUSCULAR HGB CONC 33 g/dL (31-37); MEAN CORPUSCULAR VOLUME 90 fL (79-100); MONO # 0.6 x10^3/uL (0.0-1.1); MONO % 7 % (0-9); NEUT # 7.1 x10^3/uL (1.8-7.7); NEUT % 75 % (31-73); PLATELET COUNT 289 x10^3/uL (140-400); RED BLOOD COUNT 3.83 x10^6/uL (4.30-5.70); RED CELL DISTRIBUTION WIDTH 14.2 % (11.5-14.5); WHITE BLOOD COUNT 9.5 x10^3/uL (4.0-11.0)
--- NOTE | 2021-08-15 06:41 | RAD ---
EXAM: CHEST ONE VIEW. HISTORY: Intubated, respiratory failure. COMPARISON: 08/13/2021. FINDINGS: A frontal view of the chest is obtained. An endotracheal tube has its tip 5 cm above the ca jeffrey. A nasogastric tube has its tip below the inferior margin of the view. A right internal jugular central venous catheter has its tip in the superior cavoatrial junction. Interstitial and airspace infiltrates on the left greater than right are not clearly changed. A compo nent of left volume loss is stable. There is no pneumothorax or clear pleural effusion. The heart is mildly enlarged. IMPRESSION: 1. Stable left greater than right infiltrates with left volume loss. Electronically signed by: Elizabeth Alfaro MD (08/15/2021 6:38 AM) [id number]
[2021-08-15 06:54] LABS: ALBUMIN 1.8 g/dL (3.4-5.0); ALBUMIN/GLOBULIN RATIO 0.5 (1.0-1.7); CALCIUM 7.8 mg/dL (8.5-10.1); CREATININE 0.6 mg/dL (0.7-1.3); GFR 136.1; TOTAL BILIRUBIN 0.9 mg/dL (0.2-1.0); TOTAL PROTEIN 5.5 g/dL (6.4-8.2)
[2021-08-15] MEDS: FAMOTIDINE 20 MG/2 ML VIAL IVP SCH ×2 (08:24→21:32)
--- NOTE | 2021-08-15 14:10 | PDOC ---
PROGRESS NOTES Date of Service: DATE: 08/15/21 TIME: 14:08 Subjective Subjective Pt seen in ICU for Dr Dangelo Objective Objective Vital Signs Date Time Temp Pulse Resp B/P (MAP) Pulse Ox O2 Delivery O2 Flow Rate FiO2 08/15/21 11:14 100 Ventilator 08/15/21 10:33 98.7 79 128/65 50.0 98.7 08/15/21 10:00 26 Intake and Output 08/15/21 07:00 Intake Total 1695 ml Output Total 1545 ml Balance 150 ml Intake IV Total 272 ml Tube Feeding 1109 ml Other 314 ml Output Urine Total 1545 ml Physical Exam Physical Exam on vent Abdomen: Soft Extremities: No clubbing, No cyanosis General: No acute distress HEENT: Atraumatic Lungs: Normal air movement Skin: No significant lesion Assessment Assessment ASSESSMENT: 1. Acute hypoxic respiratory failure. 2. COVID-19 pneumonia. 3. Presumed superimposed community-acquired pneumonia. 4. Possible underlying pulmonary fibrosis. 5. Chronic obstructive pulmonary disease. 6. Severe protein-calorie malnutrition. PLAN: Continue with mechanical ventilation, wean as tolerated. Continue with IV antibiotic. Continue with DVT and GI prophylaxis. spoke with RN. labs good Comment Review of Relevant I have reviewed the following items shey (where applicable) has been applied. Labs Laboratory Tests Test 08/15/21 05:40 White Blood Count 9.5 x10^3/uL (4.0-11.0) Red Blood Count 3.83 x10^6/uL (4.30-5.70) Hemoglobin 11.5 g/dL (13.0-17.5) Hematocrit 34.6 % (39.0-53.0) Mean Corpuscular Volume 90 fL (79-100) Mean Corpuscular Hemoglobin 30 pg (25-35) Mean Corpuscular Hemoglobin Concent 33 g/dL (31-37) Red Cell Distribution Width 14.2 % (11.5-14.5) Platelet Count 289 x10^3/uL (140-400) Neutrophils (%) (Auto) 75 % (31-73) Lymphocytes (%) (Auto) 14 % (24-48) Monocytes (%) (Auto) 7 % (0-9) Eosinophils (%) (Auto) 4 % (0-3) Basophils (%) (Auto) 1 % (0-3) Neutrophils # (Auto) 7.1 x10^3/uL (1.8-7.7) Lymphocytes # (Auto) 1.3 x10^3/uL (1.0-4.8) Monocytes # (Auto) 0.6 x10^3/uL (0.0-1.1) Eosinophils # (Auto) 0.4 x10^3/uL (0.0-0.7) Basophils # (Auto) 0.1 x10^3/uL (0.0-0.2) Sodium Level 136 mmol/L (136-145) Potassium Level 4.0 mmol/L (3.5-5.1) Chloride Level 102 mmol/L (98-107) Carbon Dioxide Level 29 mmol/L (21-32) Anion Gap 5 (6-14) Blood Urea Nitrogen 29 mg/dL (8-26) Creatinine 0.6 mg/dL (0.7-1.3) Estimated GFR (Cockcroft-Gault) 136.1 BUN/Creatinine Ratio 48 (6-20) Glucose Level 120 mg/dL (70-99) Calcium Level 7.8 mg/dL (8.5-10.1) Total Bilirubin 0.9 mg/dL (0.2-1.0) Aspartate Amino Transf (AST/SGOT) 18 U/L (15-37) Alanine Aminotransferase (ALT/SGPT) 35 U/L (16-63) Alkaline Phosphatase 127 U/L (46-116) Total Protein 5.5 g/dL (6.4-8.2) Albumin 1.8 g/dL (3.4-5.0) Albumin/Globulin Ratio 0.5 (1.0-1.7) Vitals/I & O Vital Sign - Last 24 Hours 08/14/21 08/14/21 08/14/21 08/14/21 15:00 15:22 16:00 17:00 Temp 98.3 98.3 Pulse 78 82 81 Resp 24 24 24 B/P (MAP) 142/85 149/83 151/82 Pulse Ox 100 100 100 98 O2 Delivery Ventilator Ventilator Ventilator Ventilator 08/14/21 08/14/21 08/14/21 08/14/21 18:00 19:00 20:00 20:00 Pulse 76 73 65 Resp 24 24 24 B/P (MAP) 138/85 130/82 149/82 Pulse Ox 98 90 100 O2 Delivery Ventilator Ventilator Ventilator Mechanical Ventilator 08/14/21 08/14/21 08/14/21 08/14/21 20:16 21:00 22:00 22:30 Temp 98.4 98.4 Pulse 78 78 Resp 24 B/P (MAP) 96/60 107/65 Pulse Ox 99 99 99 98 O2 Delivery Ventilator Ventilator Ventilator Ventilator 08/14/21 08/15/21 08/15/21 08/15/21 23:00 00:00 01:00 01:00 Temp 98.1 98.1 Pulse 77 78 74 Resp 24 24 B/P (MAP) 95/62 161/78 155/91 Pulse Ox 99 99 99 99 O2 Delivery Ventilator Ventilator Ventilator Ventilator 08/15/21 08/15/21 08/15/21 08/15/21 02:00 03:00 04:00 04:00 Pulse 58 56 56 Resp B/P (MAP) 101/55 98/56 92/53 Pulse Ox 99 99 100 99 O2 Delivery Ventilator Ventilator Ventilator Ventilator 08/15/21 08/15/21 08/15/21 08/15/21 05:00 05:58 08:00 08:00 Temp 98.5 98.7 98.5 98.7 Pulse 69 79 69 Resp B/P (MAP) 102/55 128/65 102/55 Pulse Ox 99 99 99 O2 Delivery Ventilator Ventilator Ventilator Mechanical Ventilator 08/15/21 08/15/21 08/15/21 08/15/21 08:27 09:00 10:00 10:33 Temp 98.7 98.7 Pulse 79 79 79 Resp B/P (MAP) 128/65 128/65 128/65 Pulse Ox 99 99 99 99 O2 Delivery Ventilator Ventilator Ventilator O2 Flow Rate 50.0 08/15/21 11:14 Pulse Ox 100 O2 Delivery Ventilator Intake and Output 08/14/21 08/14/21 08/15/21 15:00 23:00 07:00 Intake Total 215 ml 1008 ml 472 ml Output Total 600 ml 500 ml 445 ml Balance -385 ml 508 ml 27 ml Justifications for Admission Other Justification MARY CORDOVA MD Aug 15, 2021 14:10
[2021-08-15 14:14] LABS: BASE EXCESS ABG 4 mmol/L (-3-3); HCO3 ABG 29 mmol/L (21-28); PCO2 ABG 45 mmHg (35-46); PO2 ABG 87 mmHg (65-108); SAT O2 ABG 96 % (92-99)
[2021-08-15] MEDS: fentaNYL HIGH DOSE PCA 55 ML IV PRN (15:05)
--- NOTE | 2021-08-15 15:48 | PDOC ---
PULMONARY PROGRESS NOTES DATE: 08/15/21 TIME: 15:47 Subjective No significant change overnight remains on assist control ventilation 40% FiO2 Discussed with RT and RN Vitals Vital Signs Date Time Temp Pulse Resp B/P (MAP) Pulse Ox O2 Delivery O2 Flow Rate FiO2 08/15/21 15:05 100 50.0 08/15/21 15:00 79 26 128/65 Ventilator 08/15/21 12:00 98.5 98.5 Lungs: Crackles Cardiovascular: S1, S2 Abdomen: Soft, Non-tender Extremities: No Edema Skin: Warm Labs Laboratory Tests Test 08/14/21 08:00 08/15/21 05:40 O2 Saturation 95 % (92-99) Arterial Blood pH 7.43 (7.35-7.45) Arterial Blood pCO2 at Patient Temp 42 mmHg (35-46) Arterial Blood pO2 at Patient Temp 75 mmHg (65-108) Arterial Blood HCO3 28 mmol/L (21-28) Arterial Blood Base Excess 3 mmol/L (-3-3) FiO2 40/ac24 400 40% +7 White Blood Count 9.5 x10^3/uL (4.0-11.0) Red Blood Count 3.83 x10^6/uL (4.30-5.70) Hemoglobin 11.5 g/dL (13.0-17.5) Hematocrit 34.6 % (39.0-53.0) Mean Corpuscular Volume 90 fL (79-100) Mean Corpuscular Hemoglobin 30 pg (25-35) Mean Corpuscular Hemoglobin Concent 33 g/dL (31-37) Red Cell Distribution Width 14.2 % (11.5-14.5) Platelet Count 289 x10^3/uL (140-400) Neutrophils (%) (Auto) 75 % (31-73) Lymphocytes (%) (Auto) 14 % (24-48) Monocytes (%) (Auto) 7 % (0-9) Eosinophils (%) (Auto) 4 % (0-3) Basophils (%) (Auto) 1 % (0-3) Neutrophils # (Auto) 7.1 x10^3/uL (1.8-7.7) Lymphocytes # (Auto) 1.3 x10^3/uL (1.0-4.8) Monocytes # (Auto) 0.6 x10^3/uL (0.0-1.1) Eosinophils # (Auto) 0.4 x10^3/uL (0.0-0.7) Basophils # (Auto) 0.1 x10^3/uL (0.0-0.2) Sodium Level 136 mmol/L (136-145) Potassium Level 4.0 mmol/L (3.5-5.1) Chloride Level 102 mmol/L (98-107) Carbon Dioxide Level 29 mmol/L (21-32) Anion Gap 5 (6-14) Blood Urea Nitrogen 29 mg/dL (8-26) Creatinine 0.6 mg/dL (0.7-1.3) Estimated GFR (Cockcroft-Gault) 136.1 BUN/Creatinine Ratio 48 (6-20) Glucose Level 120 mg/dL (70-99) Calcium Level 7.8 mg/dL (8.5-10.1) Total Bilirubin 0.9 mg/dL (0.2-1.0) Aspartate Amino Transf (AST/SGOT) 18 U/L (15-37) Alanine Aminotransferase (ALT/SGPT) 35 U/L (16-63) Alkaline Phosphatase 127 U/L (46-116) Total Protein 5.5 g/dL (6.4-8.2) Albumin 1.8 g/dL (3.4-5.0) Albumin/Globulin Ratio 0.5 (1.0-1.7) Laboratory Tests Test 08/15/21 05:40 White Blood Count 9.5 x10^3/uL (4.0-11.0) Red Blood Count 3.83 x10^6/uL (4.30-5.70) Hemoglobin 11.5 g/dL (13.0-17.5) Hematocrit 34.6 % (39.0-53.0) Mean Corpuscular Volume 90 fL (79-100) Mean Corpuscular Hemoglobin 30 pg (25-35) Mean Corpuscular Hemoglobin Concent 33 g/dL (31-37) Red Cell Distribution Width 14.2 % (11.5-14.5) Platelet Count 289 x10^3/uL (140-400) Neutrophils (%) (Auto) 75 % (31-73) Lymphocytes (%) (Auto) 14 % (24-48) Monocytes (%) (Auto) 7 % (0-9) Eosinophils (%) (Auto) 4 % (0-3) Basophils (%) (Auto) 1 % (0-3) Neutrophils # (Auto) 7.1 x10^3/uL (1.8-7.7) Lymphocytes # (Auto) 1.3 x10^3/uL (1.0-4.8) Monocytes # (Auto) 0.6 x10^3/uL (0.0-1.1) Eosinophils # (Auto) 0.4 x10^3/uL (0.0-0.7) Basophils # (Auto) 0.1 x10^3/uL (0.0-0.2) Sodium Level 136 mmol/L (136-145) Potassium Level 4.0 mmol/L (3.5-5.1) Chloride Level 102 mmol/L (98-107) Carbon Dioxide Level 29 mmol/L (21-32) Anion Gap 5 (6-14) Blood Urea Nitrogen 29 mg/dL (8-26) Creatinine 0.6 mg/dL (0.7-1.3) Estimated GFR (Cockcroft-Gault) 136.1 BUN/Creatinine Ratio 48 (6-20) Glucose Level 120 mg/dL (70-99) Calcium Level 7.8 mg/dL (8.5-10.1) Total Bilirubin 0.9 mg/dL (0.2-1.0) Aspartate Amino Transf (AST/SGOT) 18 U/L (15-37) Alanine Aminotransferase (ALT/SGPT) 35 U/L (16-63) Alkaline Phosphatase 127 U/L (46-116) Total Protein 5.5 g/dL (6.4-8.2) Albumin 1.8 g/dL (3.4-5.0) Albumin/Globulin Ratio 0.5 (1.0-1.7) Impression . 1. Acute hypoxic respiratory failure secondary to COVID-19 pneumonia, acute respiratory distress syndrome and possible underlying fibrosis and emphysema. 2. Abnormal CT chest with diffuse pulmonary infiltrates with some ground glass infiltrates as well as evidence of the emphysema. May have a component of underlying fibrosis as well. No pulmonary embolism seen. 3. Hyponatremia. 4. Suspected underlying severe chronic obstructive pulmonary disease. 5. COVID-19 viral pneumonia. 6. Abnormal chest x-ray with bilateral diffuse infiltrates related to COVID-19 viral pneumonia. Plan . Updated 08/15 Awaiting trach Discussed with RN and RT Continue current support Finish course of antibiotics Nutritional support DVT GI prophylaxis REBECCA DUGGAN MD Aug 15, 2021 15:48
[2021-08-15 16:08] LABS: FIO2 ABG 40/AC 24 400 6
--- NOTE | 2021-08-15 18:21 | NUR ---
see [facility] for assessment. pt will awaken, move arms noted when lightened-after a while pt tachypnic/Hr 90's. cont on Precedex, fentanyl and Versed as ordered, Hypotensive with sedation, MAP>60. Vent cont at .40 and peep 5-strong cough effort with suction. Keren TF. Abdomen looking distended, remains soft. Good u.o. Remains in Enhanced precautions. Spoke with pt So-sugar. cont plan of care
--- NOTE | 2021-08-15 19:47 | PDOC ---
SURGICAL PROGRESS NOTE DATE: 08/15/21 TIME: 19:45 Subjective Pt intubated and sedated Vital Signs Vital Signs Date Time Temp Pulse Resp B/P (MAP) Pulse Ox O2 Delivery O2 Flow Rate FiO2 08/15/21 18:00 54 26 84/52 99 Ventilator 08/15/21 16:00 98.5 98.5 08/15/21 15:35 40.0 I&O Intake and Output 08/15/21 07:00 Intake Total 1695 ml Output Total 1545 ml Balance 150 ml Intake IV Total 272 ml Tube Feeding 1109 ml Other 314 ml Output Urine Total 1545 ml General: No acute distress HEENT: Other (orally intubated) Labs Laboratory Tests Test 08/14/21 08:00 08/15/21 05:40 08/15/21 08:00 O2 Saturation 95 % (92-99) 96 % (92-99) Arterial Blood pH 7.43 (7.35-7.45) 7.43 (7.35-7.45) Arterial Blood pCO2 at Patient Temp 42 mmHg (35-46) 45 mmHg (35-46) Arterial Blood pO2 at Patient Temp 75 mmHg (65-108) 87 mmHg (65-108) Arterial Blood HCO3 28 mmol/L (21-28) 29 mmol/L (21-28) Arterial Blood Base Excess 3 mmol/L (-3-3) 4 mmol/L (-3-3) FiO2 40/ac24 400 40% +7 40/ac 24 400 6 White Blood Count 9.5 x10^3/uL (4.0-11.0) Red Blood Count 3.83 x10^6/uL (4.30-5.70) Hemoglobin 11.5 g/dL (13.0-17.5) Hematocrit 34.6 % (39.0-53.0) Mean Corpuscular Volume 90 fL (79-100) Mean Corpuscular Hemoglobin 30 pg (25-35) Mean Corpuscular Hemoglobin Concent 33 g/dL (31-37) Red Cell Distribution Width 14.2 % (11.5-14.5) Platelet Count 289 x10^3/uL (140-400) Neutrophils (%) (Auto) 75 % (31-73) Lymphocytes (%) (Auto) 14 % (24-48) Monocytes (%) (Auto) 7 % (0-9) Eosinophils (%) (Auto) 4 % (0-3) Basophils (%) (Auto) 1 % (0-3) Neutrophils # (Auto) 7.1 x10^3/uL (1.8-7.7) Lymphocytes # (Auto) 1.3 x10^3/uL (1.0-4.8) Monocytes # (Auto) 0.6 x10^3/uL (0.0-1.1) Eosinophils # (Auto) 0.4 x10^3/uL (0.0-0.7) Basophils # (Auto) 0.1 x10^3/uL (0.0-0.2) Sodium Level 136 mmol/L (136-145) Potassium Level 4.0 mmol/L (3.5-5.1) Chloride Level 102 mmol/L (98-107) Carbon Dioxide Level 29 mmol/L (21-32) Anion Gap 5 (6-14) Blood Urea Nitrogen 29 mg/dL (8-26) Creatinine 0.6 mg/dL (0.7-1.3) Estimated GFR (Cockcroft-Gault) 136.1 BUN/Creatinine Ratio 48 (6-20) Glucose Level 120 mg/dL (70-99) Calcium Level 7.8 mg/dL (8.5-10.1) Total Bilirubin 0.9 mg/dL (0.2-1.0) Aspartate Amino Transf (AST/SGOT) 18 U/L (15-37) Alanine Aminotransferase (ALT/SGPT) 35 U/L (16-63) Alkaline Phosphatase 127 U/L (46-116) Total Protein 5.5 g/dL (6.4-8.2) Albumin 1.8 g/dL (3.4-5.0) Albumin/Globulin Ratio 0.5 (1.0-1.7) Laboratory Tests Test 08/15/21 05:40 08/15/21 08:00 White Blood Count 9.5 x10^3/uL (4.0-11.0) Red Blood Count 3.83 x10^6/uL (4.30-5.70) Hemoglobin 11.5 g/dL (13.0-17.5) Hematocrit 34.6 % (39.0-53.0) Mean Corpuscular Volume 90 fL (79-100) Mean Corpuscular Hemoglobin 30 pg (25-35) Mean Corpuscular Hemoglobin Concent 33 g/dL (31-37) Red Cell Distribution Width 14.2 % (11.5-14.5) Platelet Count 289 x10^3/uL (140-400) Neutrophils (%) (Auto) 75 % (31-73) Lymphocytes (%) (Auto) 14 % (24-48) Monocytes (%) (Auto) 7 % (0-9) Eosinophils (%) (Auto) 4 % (0-3) Basophils (%) (Auto) 1 % (0-3) Neutrophils # (Auto) 7.1 x10^3/uL (1.8-7.7) Lymphocytes # (Auto) 1.3 x10^3/uL (1.0-4.8) Monocytes # (Auto) 0.6 x10^3/uL (0.0-1.1) Eosinophils # (Auto) 0.4 x10^3/uL (0.0-0.7) Basophils # (Auto) 0.1 x10^3/uL (0.0-0.2) Sodium Level 136 mmol/L (136-145) Potassium Level 4.0 mmol/L (3.5-5.1) Chloride Level 102 mmol/L (98-107) Carbon Dioxide Level 29 mmol/L (21-32) Anion Gap 5 (6-14) Blood Urea Nitrogen 29 mg/dL (8-26) Creatinine 0.6 mg/dL (0.7-1.3) Estimated GFR (Cockcroft-Gault) 136.1 BUN/Creatinine Ratio 48 (6-20) Glucose Level 120 mg/dL (70-99) Calcium Level 7.8 mg/dL (8.5-10.1) Total Bilirubin 0.9 mg/dL (0.2-1.0) Aspartate Amino Transf (AST/SGOT) 18 U/L (15-37) Alanine Aminotransferase (ALT/SGPT) 35 U/L (16-63) Alkaline Phosphatase 127 U/L (46-116) Total Protein 5.5 g/dL (6.4-8.2) Albumin 1.8 g/dL (3.4-5.0) Albumin/Globulin Ratio 0.5 (1.0-1.7) O2 Saturation 96 % (92-99) Arterial Blood pH 7.43 (7.35-7.45) Arterial Blood pCO2 at Patient Temp 45 mmHg (35-46) Arterial Blood pO2 at Patient Temp 87 mmHg (65-108) Arterial Blood HCO3 29 mmol/L (21-28) Arterial Blood Base Excess 4 mmol/L (-3-3) FiO2 40/ac 24 400 6 Problem List Assessment/Plan Respiratory failure will plan trach tomorrow Justicifation of Admission Dx: Justifications for Admission: Justification of Admission Dx: N/A TERESA ODEN MD Aug 15, 2021 19:47
[2021-08-16] VITALS (24 sets, daily range): BP systolic 80–155; BP diastolic 47–86
[2021-08-16] MEDS: DEXMEDETOMIDINE 400 MCG in IV NORMAL SALINE 100ML 96 ML IV PRN ×3 (02:17→23:33)
[2021-08-16] MEDS: MIDAZOLAM 100mg/100ml NS BAG 100 ML IV PRN (02:18)
--- NOTE | 2021-08-16 04:14 | NUR ---
304 patient became very anxious and tachypenic, gave 1 mg iv Ativan as ordered. 318 patient yelled out. nurse entered room. patient initially responsive then became unresponsive agonal breathing. patient then cally to apneic. Code called- see code sheet. daughter called. straight to . Unable to leave message- full Addendum: 08/16/21 at 0439 by JAKUB MULLIGAN RN error wrong chart
[2021-08-16] MEDS: HEPARIN for SUB-Q USE 5,000 UNIT/ML VIAL. SQ SCH ×3 (06:22→21:08)
[2021-08-16 07:50] LABS: BASE EXCESS ABG 3 mmol/L (-3-3); HCO3 ABG 28 mmol/L (21-28); PCO2 ABG 44 mmHg (35-46); PO2 ABG 85 mmHg (65-108); SAT O2 ABG 96 % (92-99)
[2021-08-16] MEDS: FAMOTIDINE 20 MG/2 ML VIAL IVP SCH ×2 (08:31→21:08)
[2021-08-16 09:13] LABS: FIO2 ABG 40/VENT
--- NOTE | 2021-08-16 09:17 | PDOC ---
PULMONARY PROGRESS NOTES DATE: 08/16/21 TIME: 09:16 Subjective Patient scheduled for a tracheotomy no significant change overnight remains on assist control ventilation 40% FiO2 Discussed with RT and RN Vitals Vital Signs Date Time Temp Pulse Resp B/P (MAP) Pulse Ox O2 Delivery O2 Flow Rate FiO2 08/16/21 07:37 99 Ventilator 08/16/21 07:00 58 28 112/65 08/16/21 04:00 98.3 98.3 08/15/21 15:35 40.0 Lungs: Crackles Cardiovascular: S1, S2 Abdomen: Soft, Non-tender Extremities: No Edema Skin: Warm Labs Laboratory Tests Test 08/15/21 05:40 08/15/21 08:00 08/16/21 07:30 White Blood Count 9.5 x10^3/uL (4.0-11.0) Red Blood Count 3.83 x10^6/uL (4.30-5.70) Hemoglobin 11.5 g/dL (13.0-17.5) Hematocrit 34.6 % (39.0-53.0) Mean Corpuscular Volume 90 fL (79-100) Mean Corpuscular Hemoglobin 30 pg (25-35) Mean Corpuscular Hemoglobin Concent 33 g/dL (31-37) Red Cell Distribution Width 14.2 % (11.5-14.5) Platelet Count 289 x10^3/uL (140-400) Neutrophils (%) (Auto) 75 % (31-73) Lymphocytes (%) (Auto) 14 % (24-48) Monocytes (%) (Auto) 7 % (0-9) Eosinophils (%) (Auto) 4 % (0-3) Basophils (%) (Auto) 1 % (0-3) Neutrophils # (Auto) 7.1 x10^3/uL (1.8-7.7) Lymphocytes # (Auto) 1.3 x10^3/uL (1.0-4.8) Monocytes # (Auto) 0.6 x10^3/uL (0.0-1.1) Eosinophils # (Auto) 0.4 x10^3/uL (0.0-0.7) Basophils # (Auto) 0.1 x10^3/uL (0.0-0.2) Sodium Level 136 mmol/L (136-145) Potassium Level 4.0 mmol/L (3.5-5.1) Chloride Level 102 mmol/L (98-107) Carbon Dioxide Level 29 mmol/L (21-32) Anion Gap 5 (6-14) Blood Urea Nitrogen 29 mg/dL (8-26) Creatinine 0.6 mg/dL (0.7-1.3) Estimated GFR (Cockcroft-Gault) 136.1 BUN/Creatinine Ratio 48 (6-20) Glucose Level 120 mg/dL (70-99) Calcium Level 7.8 mg/dL (8.5-10.1) Total Bilirubin 0.9 mg/dL (0.2-1.0) Aspartate Amino Transf (AST/SGOT) 18 U/L (15-37) Alanine Aminotransferase (ALT/SGPT) 35 U/L (16-63) Alkaline Phosphatase 127 U/L (46-116) Total Protein 5.5 g/dL (6.4-8.2) Albumin 1.8 g/dL (3.4-5.0) Albumin/Globulin Ratio 0.5 (1.0-1.7) O2 Saturation 96 % (92-99) 96 % (92-99) Arterial Blood pH 7.43 (7.35-7.45) 7.42 (7.35-7.45) Arterial Blood pCO2 at Patient Temp 45 mmHg (35-46) 44 mmHg (35-46) Arterial Blood pO2 at Patient Temp 87 mmHg (65-108) 85 mmHg (65-108) Arterial Blood HCO3 29 mmol/L (21-28) 28 mmol/L (21-28) Arterial Blood Base Excess 4 mmol/L (-3-3) 3 mmol/L (-3-3) FiO2 40/ac 24 400 6 40/vent Laboratory Tests Test 08/16/21 07:30 O2 Saturation 96 % (92-99) Arterial Blood pH 7.42 (7.35-7.45) Arterial Blood pCO2 at Patient Temp 44 mmHg (35-46) Arterial Blood pO2 at Patient Temp 85 mmHg (65-108) Arterial Blood HCO3 28 mmol/L (21-28) Arterial Blood Base Excess 3 mmol/L (-3-3) FiO2 40/vent Impression . 1. Acute hypoxic respiratory failure secondary to COVID-19 pneumonia, acute respiratory distress syndrome and possible underlying fibrosis and emphysema. 2. Abnormal CT chest with diffuse pulmonary infiltrates with some ground glass infiltrates as well as evidence of the emphysema. May have a component of underlying fibrosis as well. No pulmonary embolism seen. 3. Hyponatremia. 4. Suspected underlying severe chronic obstructive pulmonary disease. 5. COVID-19 viral pneumonia. 6. Abnormal chest x-ray with bilateral diffuse infiltrates related to COVID-19 viral pneumonia. Plan . Updated 2/3 Tracheotomy per surgeon Chest x-ray from yesterday reviewed, no significant change Remains hemodynamically stable Currently on 40% FiO2 5 of PEEP Discussed with RN and RT Continue current support Finish course of antibiotics Nutritional support DVT GI prophylaxis REBECCA DUGGAN MD Aug 16, 2021 09:17
[2021-08-16] MEDS: PROPOFOL 100 ML IV PRN ×3 (09:33→23:30)
--- NOTE | 2021-08-16 09:40 | PDOC ---
PROGRESS NOTES Date of Service: DATE: 08/16/21 TIME: 09:40 Subjective Subjective Seen in ICU for Objective Objective Vital Signs Date Time Temp Pulse Resp B/P (MAP) Pulse Ox O2 Delivery O2 Flow Rate FiO2 08/16/21 09:00 74 28 133/71 99 Ventilator 08/16/21 08:00 98.9 98.9 08/15/21 15:35 40.0 Intake and Output 08/16/21 07:00 Intake Total 1896 ml Output Total 1475 ml Balance 421 ml Intake IV Total 265 ml Tube Feeding 1390 ml Other 241 ml Output Urine Total 1475 ml Physical Exam Physical Exam on vent Abdomen: Soft Extremities: No clubbing, No cyanosis General: No acute distress HEENT: Other (orally intubated) Lungs: Normal air movement Skin: No significant lesion Assessment Assessment ASSESSMENT: 1. Acute hypoxic respiratory failure. 2. COVID-19 pneumonia. 3. Presumed superimposed community-acquired pneumonia. 4. Possible underlying pulmonary fibrosis. 5. Chronic obstructive pulmonary disease. 6. Severe protein-calorie malnutrition. PLAN: Continue with mechanical ventilation, Continue with IV antibiotic. Continue with DVT and GI prophylaxis. spoke with RN. labs good, wbc 9.0 down from 14 Comment Review of Relevant I have reviewed the following items shey (where applicable) has been applied. Labs Laboratory Tests Test 08/16/21 07:30 O2 Saturation 96 % (92-99) Arterial Blood pH 7.42 (7.35-7.45) Arterial Blood pCO2 at Patient Temp 44 mmHg (35-46) Arterial Blood pO2 at Patient Temp 85 mmHg (65-108) Arterial Blood HCO3 28 mmol/L (21-28) Arterial Blood Base Excess 3 mmol/L (-3-3) FiO2 40/vent Vitals/I & O Vital Sign - Last 24 Hours 08/15/21 08/15/21 08/15/21 08/15/21 10:00 10:33 11:00 11:14 Temp 98.7 98.7 Pulse 79 79 79 Resp 26 26 B/P (MAP) 128/65 128/65 128/65 Pulse Ox 99 99 99 100 O2 Delivery Ventilator Ventilator Ventilator O2 Flow Rate 50.0 08/15/21 08/15/21 08/15/21 08/15/21 12:00 13:00 14:00 15:00 Temp 98.5 98.5 Pulse 79 79 79 79 Resp B/P (MAP) 128/65 128/65 128/65 128/65 Pulse Ox 99 99 99 99 O2 Delivery Ventilator Ventilator Ventilator Ventilator 08/15/21 08/15/21 08/15/21 08/15/21 15:05 15:35 16:00 16:14 Temp 98.5 98.5 Pulse 56 B/P (MAP) 83/51 Pulse Ox 100 99 99 99 O2 Delivery Ventilator Ventilator O2 Flow Rate 50.0 40.0 08/15/21 08/15/21 08/15/21 08/15/21 17:00 18:00 19:00 20:00 Temp 98.4 98.4 Pulse 54 54 54 Resp B/P (MAP) 84/51 84/52 84/52 Pulse Ox 99 99 99 O2 Delivery Ventilator Ventilator Ventilator Mechanical Ventilator 08/15/21 08/15/21 08/15/21 08/15/21 20:00 21:00 21:02 22:00 Pulse 54 54 87 Resp B/P (MAP) 83/50 89/51 118/67 Pulse Ox 100 100 99 100 O2 Delivery Ventilator Ventilator Ventilator Ventilator 08/15/21 08/15/21 08/16/21 08/16/21 23:00 23:59 00:20 01:00 Temp 98.3 98.3 Pulse 90 95 65 Resp B/P (MAP) 124/68 126/73 126/73 Pulse Ox 99 98 97 99 O2 Delivery Ventilator Ventilator Ventilator Ventilator 08/16/21 08/16/21 08/16/21 08/16/21 02:00 03:00 04:00 04:00 Temp 98.3 98.3 Pulse 55 52 54 Resp B/P (MAP) 96/51 90/53 90/53 Pulse Ox 99 99 99 99 O2 Delivery Ventilator Ventilator Ventilator Ventilator 08/16/21 08/16/21 08/16/21 08/16/21 05:00 06:00 07:00 07:37 Pulse 54 52 58 Resp B/P (MAP) 84/47 101/62 112/65 Pulse Ox 99 99 98 99 O2 Delivery Ventilator Ventilator Ventilator Ventilator 08/16/21 08/16/21 08:00 09:00 Temp 98.9 98.9 Pulse 62 74 Resp 28 28 B/P (MAP) 93/53 133/71 Pulse Ox 98 99 O2 Delivery Ventilator Ventilator Intake and Output 08/15/21 08/15/21 08/16/21 15:00 23:00 07:00 Intake Total 200 ml 1231 ml 465 ml Output Total 1150 ml 325 ml Balance 200 ml 81 ml 140 ml Justifications for Admission Other Justification MARY CORDOVA MD Aug 16, 2021 09:40
[2021-08-16] MEDS ORDERED: DEXAMETHASONE SOD PHOS 20 MG/5 ML VIAL. IV ONE (12:30)
--- NOTE | 2021-08-16 13:18 | PDOC ---
SURGICAL PROGRESS NOTE DATE: 08/16/21 TIME: 13:16 Subjective d/w nurse Vital Signs Vital Signs Date Time Temp Pulse Resp B/P (MAP) Pulse Ox O2 Delivery O2 Flow Rate FiO2 08/16/21 13:00 58 25 87/48 98 Ventilator 08/16/21 12:00 99.1 99.1 08/15/21 15:35 40.0 I&O Intake and Output 08/16/21 07:00 Intake Total 1896 ml Output Total 1475 ml Balance 421 ml Intake IV Total 265 ml Tube Feeding 1390 ml Other 241 ml Output Urine Total 1475 ml Lungs: Other (vent) Labs Laboratory Tests Test 08/15/21 05:40 08/15/21 08:00 08/16/21 07:30 White Blood Count 9.5 x10^3/uL (4.0-11.0) Red Blood Count 3.83 x10^6/uL (4.30-5.70) Hemoglobin 11.5 g/dL (13.0-17.5) Hematocrit 34.6 % (39.0-53.0) Mean Corpuscular Volume 90 fL (79-100) Mean Corpuscular Hemoglobin 30 pg (25-35) Mean Corpuscular Hemoglobin Concent 33 g/dL (31-37) Red Cell Distribution Width 14.2 % (11.5-14.5) Platelet Count 289 x10^3/uL (140-400) Neutrophils (%) (Auto) 75 % (31-73) Lymphocytes (%) (Auto) 14 % (24-48) Monocytes (%) (Auto) 7 % (0-9) Eosinophils (%) (Auto) 4 % (0-3) Basophils (%) (Auto) 1 % (0-3) Neutrophils # (Auto) 7.1 x10^3/uL (1.8-7.7) Lymphocytes # (Auto) 1.3 x10^3/uL (1.0-4.8) Monocytes # (Auto) 0.6 x10^3/uL (0.0-1.1) Eosinophils # (Auto) 0.4 x10^3/uL (0.0-0.7) Basophils # (Auto) 0.1 x10^3/uL (0.0-0.2) Sodium Level 136 mmol/L (136-145) Potassium Level 4.0 mmol/L (3.5-5.1) Chloride Level 102 mmol/L (98-107) Carbon Dioxide Level 29 mmol/L (21-32) Anion Gap 5 (6-14) Blood Urea Nitrogen 29 mg/dL (8-26) Creatinine 0.6 mg/dL (0.7-1.3) Estimated GFR (Cockcroft-Gault) 136.1 BUN/Creatinine Ratio 48 (6-20) Glucose Level 120 mg/dL (70-99) Calcium Level 7.8 mg/dL (8.5-10.1) Total Bilirubin 0.9 mg/dL (0.2-1.0) Aspartate Amino Transf (AST/SGOT) 18 U/L (15-37) Alanine Aminotransferase (ALT/SGPT) 35 U/L (16-63) Alkaline Phosphatase 127 U/L (46-116) Total Protein 5.5 g/dL (6.4-8.2) Albumin 1.8 g/dL (3.4-5.0) Albumin/Globulin Ratio 0.5 (1.0-1.7) O2 Saturation 96 % (92-99) 96 % (92-99) Arterial Blood pH 7.43 (7.35-7.45) 7.42 (7.35-7.45) Arterial Blood pCO2 at Patient Temp 45 mmHg (35-46) 44 mmHg (35-46) Arterial Blood pO2 at Patient Temp 87 mmHg (65-108) 85 mmHg (65-108) Arterial Blood HCO3 29 mmol/L (21-28) 28 mmol/L (21-28) Arterial Blood Base Excess 4 mmol/L (-3-3) 3 mmol/L (-3-3) FiO2 40/ac 24 400 6 40/vent Laboratory Tests Test 08/16/21 07:30 O2 Saturation 96 % (92-99) Arterial Blood pH 7.42 (7.35-7.45) Arterial Blood pCO2 at Patient Temp 44 mmHg (35-46) Arterial Blood pO2 at Patient Temp 85 mmHg (65-108) Arterial Blood HCO3 28 mmol/L (21-28) Arterial Blood Base Excess 3 mmol/L (-3-3) FiO2 40/vent Problem List trach plan early next week Justicifation of Admission Dx: Justifications for Admission: Justification of Admission Dx: N/A 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
[2021-08-16] MEDS: fentaNYL HIGH DOSE PCA 55 ML IV PRN (13:26)
--- NOTE | 2021-08-16 16:22 | NUR ---
SS following up with discharge planning. SS reviewed pt chart and discussed with pt RN. Pt is currently on the vent at 40%. COVID19 positive. Pt on Versed, Precedex, Fentanyl. and Propofol. Dr. Peralta consulted for Trach. Tentative trach placement scheduled for Friday or Friday. Not ready. SS will continue to follow for discharge planning.
[2021-08-17] VITALS (24 sets, daily range): BP systolic 77–162; BP diastolic 48–96
[2021-08-17] MEDS: ACETAMINOPHEN 650 MG/20.3 ML SOLUTION. PEG PRN (00:24)
[2021-08-17] MEDS: VECURONIUM BOLUS 10 MG VIAL. IV PRN (02:35)
[2021-08-17] MEDS: HEPARIN for SUB-Q USE 5,000 UNIT/ML VIAL. SQ SCH ×3 (05:27→22:01)
--- NOTE | 2021-08-17 06:44 | RAD ---
EXAM: CHEST ONE VIEW. HISTORY: Intubated, respiratory failure. COMPARISON: 08/15/2021. FINDINGS: A frontal view of the chest is obtained. An endotracheal tube has its tip just below the th oracic inlet, 9 cm above the sabino. A nasogastric tube has its tip below the inferior margin of the view. A right internal jugular central venous catheter has its tip in the superior cavoatrial junctio n. Left greater than right interstitial and airspace infiltrates are mildly increased. There is no pneum othorax or clear pleural effusion. The heart is not enlarged. IMPRESSION: 1. Endotracheal tube just below the thoracic inlet. Check placement. 2. Bilateral diffuse infiltrates are mildly increased. Electronically signed by: Elizabeth Alfaro MD (08/17/2021 6:42 AM) [id number]
[2021-08-17] MEDS: PROPOFOL 100 ML IV PRN ×4 (07:37→22:45)
[2021-08-17] MEDS: FAMOTIDINE 20 MG/2 ML VIAL IVP SCH ×2 (07:57→21:09)
--- NOTE | 2021-08-17 08:18 | PDOC ---
PULMONARY PROGRESS NOTES DATE: 08/17/21 TIME: 08:18 Subjective Remains hemodynamically stable no significant change overnight remains on assist control ventilation 40% FiO2 Discussed with RT and RN Vitals Vital Signs Date Time Temp Pulse Resp B/P (MAP) Pulse Ox O2 Delivery O2 Flow Rate FiO2 08/17/21 07:36 97 Ventilator 08/17/21 07:00 75 26 154/83 08/17/21 04:00 98.4 98.4 Lungs: Crackles Cardiovascular: S1, S2 Abdomen: Soft, Non-tender Extremities: No Edema Skin: Warm Labs Laboratory Tests Test 08/15/21 11:12 08/16/21 07:30 Glucose (Fingerstick) 128 mg/dL (70-99) O2 Saturation 96 % (92-99) Arterial Blood pH 7.42 (7.35-7.45) Arterial Blood pCO2 at Patient Temp 44 mmHg (35-46) Arterial Blood pO2 at Patient Temp 85 mmHg (65-108) Arterial Blood HCO3 28 mmol/L (21-28) Arterial Blood Base Excess 3 mmol/L (-3-3) FiO2 40/vent Impression . 1. Acute hypoxic respiratory failure secondary to COVID-19 pneumonia, acute respiratory distress syndrome and possible underlying fibrosis and emphysema. 2. Abnormal CT chest with diffuse pulmonary infiltrates with some ground glass infiltrates as well as evidence of the emphysema. May have a component of underlying fibrosis as well. No pulmonary embolism seen. 3. Hyponatremia. 4. Suspected underlying severe chronic obstructive pulmonary disease. 5. COVID-19 viral pneumonia. 6. Abnormal chest x-ray with bilateral diffuse infiltrates related to COVID-19 viral pneumonia. Plan . Updated 08/17 Tracheotomy per surgeon Chest x-ray from yesterday reviewed, no significant change Remains hemodynamically stable Currently on 40% FiO2 5 of PEEP Discussed with RN and RT Continue current support Finish course of antibiotics Nutritional support DVT GI prophylaxis REBECCA DUGGAN MD Aug 17, 2021 08:18
[2021-08-17] MEDS ORDERED: DEXAMETHASONE SOD PHOS 4 MG/ML VIAL IVP SCH (09:00)
--- NOTE | 2021-08-17 11:20 | PDOC ---
PROGRESS NOTES Date of Service: DATE: 08/17/21 TIME: 11:18 Subjective Subjective seen in ICU for DR Dangelo Objective Objective Vital Signs Date Time Temp Pulse Resp B/P (MAP) Pulse Ox O2 Delivery O2 Flow Rate FiO2 08/17/21 11:10 98 Ventilator 08/17/21 09:00 63 24 162/96 08/17/21 08:00 98.7 98.7 Intake and Output 08/17/21 07:00 Intake Total 2378 ml Output Total 1440 ml Balance 938 ml Intake IV Total 582 ml Tube Feeding 1596 ml Other 200 ml Output Urine Total 1440 ml Physical Exam Physical Exam on vent Abdomen: Soft Extremities: No clubbing, No cyanosis General: No acute distress HEENT: Other (orally intubated) Lungs: Other (vent) Skin: No significant lesion Assessment Assessment ASSESSMENT: 1. Acute hypoxic respiratory failure. 2. COVID-19 pneumonia. 3. Presumed superimposed community-acquired pneumonia. 4. Possible underlying pulmonary fibrosis. 5. Chronic obstructive pulmonary disease. 6. Severe protein-calorie malnutrition. PLAN: pt scheduled for Tracheostomy next week. Continue with mechanical ventilation, Continue with IV antibiotic. Continue with DVT and GI prophylaxis. spoke with RN. labs good, wbc 9.0 down from 14 Comment Review of Relevant I have reviewed the following items shey (where applicable) has been applied. Medications Current Medications Acetaminophen (Tylenol) 650 mg PRN Q6HRS PRN PEG MILD PAIN / TEMP > 100.3'F Last administered on 08/17/21at 00:24; Start 08/17/21 at 00:15 Dexamethasone Sodium Phosphate (Decadron) 6 mg DAILY IVP ; Start 08/17/21 at 09:00; Stop 08/16/21 at 13:31; Status DC Dexamethasone Sodium Phosphate (Decadron) 10 mg 1X ONCE IV ; Start 08/16/21 at 12:30; Stop 08/16/21 at 13:31; Status DC Vitals/I & O Vital Sign - Last 24 Hours 08/16/21 08/16/21 08/16/21 08/16/21 12:00 12:14 13:00 13:26 Temp 99.1 99.1 Pulse 74 58 Resp 26 25 25 B/P (MAP) 139/81 87/48 Pulse Ox 97 97 98 98 O2 Delivery Ventilator Ventilator Ventilator BiPAP/CPAP 08/16/21 08/16/21 08/16/21 08/16/21 13:56 14:00 15:00 15:51 Pulse 74 78 Resp 24 B/P (MAP) 128/78 130/86 Pulse Ox 99 99 99 97 O2 Delivery Ventilator Ventilator Ventilator Ventilator 08/16/21 08/16/21 08/16/21 08/16/21 16:00 17:00 18:00 19:00 Temp 98.9 98.9 Pulse 64 68 76 84 Resp 24 B/P (MAP) 86/49 137/78 145/82 154/80 Pulse Ox 100 99 98 98 O2 Delivery Ventilator Ventilator Ventilator Ventilator 08/16/21 08/16/21 08/16/21 08/16/21 20:00 20:00 20:15 21:00 Temp 98.8 98.8 Pulse 84 77 Resp B/P (MAP) 155/78 92/58 Pulse Ox 98 97 98 O2 Delivery Mechanical Ventilator Ventilator Ventilator Ventilator 08/16/21 08/16/21 08/16/21 08/17/21 22:00 23:00 23:59 00:36 Temp 99.0 99.0 Pulse 83 82 82 Resp B/P (MAP) 145/77 138/74 135/82 Pulse Ox 99 99 99 98 O2 Delivery Ventilator Ventilator Ventilator Ventilator 08/17/21 08/17/21 08/17/21 08/17/21 01:00 02:00 02:18 03:00 Pulse 80 96 74 Resp B/P (MAP) 128/68 114/72 109/52 100/57 Pulse Ox 99 99 99 O2 Delivery Ventilator Ventilator Ventilator 08/17/21 08/17/21 08/17/21 08/17/21 04:00 04:20 05:00 05:56 Temp 98.4 98.4 Pulse 76 77 63 Resp B/P (MAP) 127/65 140/65 125/72 Pulse Ox 99 96 99 99 O2 Delivery Ventilator Ventilator Ventilator Ventilator 08/17/21 08/17/21 08/17/21 08/17/21 07:00 07:36 08:00 08:00 Temp 98.7 98.7 Pulse 75 76 Resp B/P (MAP) 154/83 122/72 Pulse Ox 100 97 93 O2 Delivery Ventilator Ventilator Mechanical Ventilator Ventilator 08/17/21 08/17/21 09:00 11:10 Pulse 63 Resp 24 B/P (MAP) 162/96 Pulse Ox 98 98 O2 Delivery Ventilator Ventilator Intake and Output 08/16/21 08/16/21 08/17/21 15:00 23:00 07:00 Intake Total 230 ml 1285 ml 863 ml Output Total 790 ml 400 ml 250 ml Balance -560 ml 885 ml 613 ml Justifications for Admission Other Justification MARY CORDOVA MD Aug 17, 2021 11:20
[2021-08-17] MEDS: DEXMEDETOMIDINE 400 MCG in IV NORMAL SALINE 100ML 96 ML IV PRN (12:55)
--- NOTE | 2021-08-17 14:02 | PDOC ---
SURGICAL PROGRESS NOTE DATE: 08/17/21 TIME: 14:01 Subjective Pt intubated and sedated Vital Signs Vital Signs Date Time Temp Pulse Resp B/P (MAP) Pulse Ox O2 Delivery O2 Flow Rate FiO2 08/17/21 11:10 98 Ventilator 08/17/21 11:00 80 24 119/68 08/17/21 08:00 98.7 98.7 I&O Intake and Output 08/17/21 07:00 Intake Total 2378 ml Output Total 1440 ml Balance 938 ml Intake IV Total 582 ml Tube Feeding 1596 ml Other 200 ml Output Urine Total 1440 ml General: No acute distress HEENT: Other (orally intubated) Labs Laboratory Tests Test 08/16/21 07:30 O2 Saturation 96 % (92-99) Arterial Blood pH 7.42 (7.35-7.45) Arterial Blood pCO2 at Patient Temp 44 mmHg (35-46) Arterial Blood pO2 at Patient Temp 85 mmHg (65-108) Arterial Blood HCO3 28 mmol/L (21-28) Arterial Blood Base Excess 3 mmol/L (-3-3) FiO2 40/vent Problem List Respiratory failure pt to convert to covid recovery on 08/19. Will plan trach in OR on 08/21. Justicifation of Admission Dx: Justifications for Admission: Justification of Admission Dx: N/A TERESA ODEN MD Aug 17, 2021 14:02
[2021-08-17] MEDS: fentaNYL HIGH DOSE PCA 55 ML IV PRN (15:47)
[2021-08-17] MEDS: MIDAZOLAM 100mg/100ml NS BAG 100 ML IV PRN (18:20)
[2021-08-18] VITALS (24 sets, daily range): BP systolic 73–160; BP diastolic 46–88
[2021-08-18 06:04] LABS: BASO # 0.1 x10^3/uL (0.0-0.2); BASO % 1 % (0-3); EOS # 0.6 x10^3/uL (0.0-0.7); EOS % 8 % (0-3); HEMATOCRIT 36.7 % (39.0-53.0); HEMOGLOBIN 12.2 g/dL (13.0-17.5); LYMPH # 1.2 x10^3/uL (1.0-4.8); LYMPH % 16 % (24-48); MEAN CORPUSCULAR HEMOGLOBIN 30 pg (25-35); MEAN CORPUSCULAR HGB CONC 33 g/dL (31-37); MEAN CORPUSCULAR VOLUME 89 fL (79-100); MONO # 0.5 x10^3/uL (0.0-1.1); MONO % 7 % (0-9); NEUT # 5.4 x10^3/uL (1.8-7.7); NEUT % 68 % (31-73); PLATELET COUNT 320 x10^3/uL (140-400); RED BLOOD COUNT 4.11 x10^6/uL (4.30-5.70); RED CELL DISTRIBUTION WIDTH 14.6 % (11.5-14.5); WHITE BLOOD COUNT 7.9 x10^3/uL (4.0-11.0)
[2021-08-18] MEDS: HEPARIN for SUB-Q USE 5,000 UNIT/ML VIAL. SQ SCH ×3 (06:09→22:19)
[2021-08-18] MEDS: PROPOFOL 100 ML IV PRN ×4 (06:10→22:20)
[2021-08-18 06:13] LABS: CREATININE 0.6 mg/dL (0.7-1.3); GFR 136.1; POTASSIUM 4.3 mmol/L (3.5-5.1)
--- NOTE | 2021-08-18 07:30 | PDOC ---
PULMONARY PROGRESS NOTES DATE: 08/18/21 TIME: 07:30 Subjective No overnight events Remains hemodynamically stable no significant change overnight remains on assist control ventilation 40% FiO2 Discussed with RT and RN Vitals Vital Signs Date Time Temp Pulse Resp B/P (MAP) Pulse Ox O2 Delivery O2 Flow Rate FiO2 08/18/21 07:00 94 26 160/85 100 Ventilator 08/18/21 04:00 99.4 99.4 Lungs: Crackles Cardiovascular: S1, S2 Abdomen: Soft, Non-tender Extremities: No Edema Skin: Warm Labs Laboratory Tests Test 08/18/21 05:30 White Blood Count 7.9 x10^3/uL (4.0-11.0) Red Blood Count 4.11 x10^6/uL (4.30-5.70) Hemoglobin 12.2 g/dL (13.0-17.5) Hematocrit 36.7 % (39.0-53.0) Mean Corpuscular Volume 89 fL (79-100) Mean Corpuscular Hemoglobin 30 pg (25-35) Mean Corpuscular Hemoglobin Concent 33 g/dL (31-37) Red Cell Distribution Width 14.6 % (11.5-14.5) Platelet Count 320 x10^3/uL (140-400) Neutrophils (%) (Auto) 68 % (31-73) Lymphocytes (%) (Auto) 16 % (24-48) Monocytes (%) (Auto) 7 % (0-9) Eosinophils (%) (Auto) 8 % (0-3) Basophils (%) (Auto) 1 % (0-3) Neutrophils # (Auto) 5.4 x10^3/uL (1.8-7.7) Lymphocytes # (Auto) 1.2 x10^3/uL (1.0-4.8) Monocytes # (Auto) 0.5 x10^3/uL (0.0-1.1) Eosinophils # (Auto) 0.6 x10^3/uL (0.0-0.7) Basophils # (Auto) 0.1 x10^3/uL (0.0-0.2) Sodium Level 139 mmol/L (136-145) Potassium Level 4.3 mmol/L (3.5-5.1) Chloride Level 102 mmol/L (98-107) Carbon Dioxide Level 31 mmol/L (21-32) Anion Gap 6 (6-14) Blood Urea Nitrogen 18 mg/dL (8-26) Creatinine 0.6 mg/dL (0.7-1.3) Estimated GFR (Cockcroft-Gault) 136.1 Glucose Level 104 mg/dL (70-99) Calcium Level 8.0 mg/dL (8.5-10.1) Laboratory Tests Test 08/18/21 05:30 White Blood Count 7.9 x10^3/uL (4.0-11.0) Red Blood Count 4.11 x10^6/uL (4.30-5.70) Hemoglobin 12.2 g/dL (13.0-17.5) Hematocrit 36.7 % (39.0-53.0) Mean Corpuscular Volume 89 fL (79-100) Mean Corpuscular Hemoglobin 30 pg (25-35) Mean Corpuscular Hemoglobin Concent 33 g/dL (31-37) Red Cell Distribution Width 14.6 % (11.5-14.5) Platelet Count 320 x10^3/uL (140-400) Neutrophils (%) (Auto) 68 % (31-73) Lymphocytes (%) (Auto) 16 % (24-48) Monocytes (%) (Auto) 7 % (0-9) Eosinophils (%) (Auto) 8 % (0-3) Basophils (%) (Auto) 1 % (0-3) Neutrophils # (Auto) 5.4 x10^3/uL (1.8-7.7) Lymphocytes # (Auto) 1.2 x10^3/uL (1.0-4.8) Monocytes # (Auto) 0.5 x10^3/uL (0.0-1.1) Eosinophils # (Auto) 0.6 x10^3/uL (0.0-0.7) Basophils # (Auto) 0.1 x10^3/uL (0.0-0.2) Sodium Level 139 mmol/L (136-145) Potassium Level 4.3 mmol/L (3.5-5.1) Chloride Level 102 mmol/L (98-107) Carbon Dioxide Level 31 mmol/L (21-32) Anion Gap 6 (6-14) Blood Urea Nitrogen 18 mg/dL (8-26) Creatinine 0.6 mg/dL (0.7-1.3) Estimated GFR (Cockcroft-Gault) 136.1 Glucose Level 104 mg/dL (70-99) Calcium Level 8.0 mg/dL (8.5-10.1) Impression . 1. Acute hypoxic respiratory failure secondary to COVID-19 pneumonia, acute respiratory distress syndrome and possible underlying fibrosis and emphysema. 2. Abnormal CT chest with diffuse pulmonary infiltrates with some ground glass infiltrates as well as evidence of the emphysema. May have a component of underlying fibrosis as well. No pulmonary embolism seen. 3. Hyponatremia. 4. Suspected underlying severe chronic obstructive pulmonary disease. 5. COVID-19 viral pneumonia. 6. Abnormal chest x-ray with bilateral diffuse infiltrates related to COVID-19 viral pneumonia. Plan . Updated / Timing of tracheotomy, per surgeon Continue current support Chest x-ray from yesterday reviewed, no significant change Remains hemodynamically stable Currently on 40% FiO2 5 of PEEP Discussed with RN and RT Finish course of antibiotics Nutritional support DVT GI prophylaxis REBECCA DUGGAN MD Aug 18, 2021 07:30
[2021-08-18] MEDS: FAMOTIDINE 20 MG/2 ML VIAL IVP SCH ×2 (08:59→22:19)
--- NOTE | 2021-08-18 11:45 | PDOC ---
PROGRESS NOTES Date of Service: DATE: 08/18/21 TIME: 11:43 Subjective Subjective Pr seen in ICU for Dr Dangelo Objective Objective Vital Signs Date Time Temp Pulse Resp B/P (MAP) Pulse Ox O2 Delivery O2 Flow Rate FiO2 08/18/21 11:00 101 26 143/83 99 Ventilator 08/18/21 08:00 99.1 99.1 Intake and Output 08/18/21 07:00 Intake Total 2894.6 ml Output Total 1865 ml Balance 1029.6 ml Intake Oral 0 ml IV Total 677.6 ml Tube Feeding 1826 ml Other 391 ml Output Urine Total 1865 ml Physical Exam Physical Exam Pt is on vent Abdomen: Soft Extremities: No clubbing, No cyanosis General: No acute distress HEENT: Other (orally intubated) Lungs: Other (vent) Skin: No significant lesion Assessment Assessment ASSESSMENT: 1. Acute hypoxic respiratory failure. 2. COVID-19 pneumonia. 3. Presumed superimposed community-acquired pneumonia. 4. Possible underlying pulmonary fibrosis. 5. Chronic obstructive pulmonary disease. 6. Severe protein-calorie malnutrition. PLAN: spoke with pts girlfriend at bedside pt scheduled for Tracheostomy next Friday Continue with mechanical ventilation, Continue with IV antibiotic. Continue with DVT and GI prophylaxis. spoke with RN. labs good. Comment Review of Relevant I have reviewed the following items shey (where applicable) has been applied. Labs Laboratory Tests Test 08/18/21 05:30 White Blood Count 7.9 x10^3/uL (4.0-11.0) Red Blood Count 4.11 x10^6/uL (4.30-5.70) Hemoglobin 12.2 g/dL (13.0-17.5) Hematocrit 36.7 % (39.0-53.0) Mean Corpuscular Volume 89 fL (79-100) Mean Corpuscular Hemoglobin 30 pg (25-35) Mean Corpuscular Hemoglobin Concent 33 g/dL (31-37) Red Cell Distribution Width 14.6 % (11.5-14.5) Platelet Count 320 x10^3/uL (140-400) Neutrophils (%) (Auto) 68 % (31-73) Lymphocytes (%) (Auto) 16 % (24-48) Monocytes (%) (Auto) 7 % (0-9) Eosinophils (%) (Auto) 8 % (0-3) Basophils (%) (Auto) 1 % (0-3) Neutrophils # (Auto) 5.4 x10^3/uL (1.8-7.7) Lymphocytes # (Auto) 1.2 x10^3/uL (1.0-4.8) Monocytes # (Auto) 0.5 x10^3/uL (0.0-1.1) Eosinophils # (Auto) 0.6 x10^3/uL (0.0-0.7) Basophils # (Auto) 0.1 x10^3/uL (0.0-0.2) Sodium Level 139 mmol/L (136-145) Potassium Level 4.3 mmol/L (3.5-5.1) Chloride Level 102 mmol/L (98-107) Carbon Dioxide Level 31 mmol/L (21-32) Anion Gap 6 (6-14) Blood Urea Nitrogen 18 mg/dL (8-26) Creatinine 0.6 mg/dL (0.7-1.3) Estimated GFR (Cockcroft-Gault) 136.1 Glucose Level 104 mg/dL (70-99) Calcium Level 8.0 mg/dL (8.5-10.1) Vitals/I & O Vital Sign - Last 24 Hours 08/17/21 08/17/21 08/17/21 08/17/21 12:00 13:00 14:00 15:00 Temp 98.9 98.9 Pulse 80 78 64 58 Resp 26 25 24 26 B/P (MAP) 122/68 122/72 77/48 79/50 Pulse Ox 98 98 99 100 O2 Delivery Ventilator Ventilator Ventilator Ventilator 08/17/21 08/17/21 08/17/21 08/17/21 15:35 15:47 16:00 17:00 Temp 99.0 99.0 Pulse 76 80 Resp 26 24 B/P (MAP) 135/74 139/82 Pulse Ox 97 97 97 99 O2 Delivery Ventilator Ventilator Ventilator Ventilator 08/17/21 08/17/21 08/17/21 08/17/21 17:21 17:43 18:00 19:00 Pulse 79 90 Resp 26 28 30 B/P (MAP) 107/81 144/83 Pulse Ox 97 97 99 92 O2 Delivery Ventilator Ventilator Ventilator Ventilator 08/17/21 08/17/21 08/17/2122 20:00 20:00 20:00 21:00 Temp 99.4 99.4 Pulse 88 88 Resp B/P (MAP) 149/87 134/69 Pulse Ox 94 99 94 O2 Delivery Mechanical Ventilator Ventilator Ventilator Ventilator 08/17/21 08/17/21 08/18/21 08/18/21 22:00 23:00 00:00 00:01 Temp 100.2 100.2 Pulse 78 66 52 Resp B/P (MAP) 111/67 82/54 74/47 Pulse Ox 99 99 99 100 O2 Delivery Ventilator Ventilator Ventilator Ventilator 08/18/21 08/18/21 08/18/21 08/18/21 01:00 02:00 03:00 04:00 Temp 99.4 99.4 Pulse 70 54 89 100 Resp 29 30 B/P (MAP) 84/50 73/47 140/88 119/81 Pulse Ox 98 100 100 100 O2 Delivery Ventilator Ventilator Ventilator Ventilator 08/18/21 08/18/21 08/18/21 08/18/21 04:00 05:00 06:00 07:00 Pulse 95 89 94 Resp B/P (MAP) 135/87 157/75 160/85 Pulse Ox 99 100 100 100 O2 Delivery Ventilator Ventilator Ventilator Ventilator 08/18/21 08/18/21 08/18/21 08/18/21 08:00 08:00 09:00 09:02 Temp 99.1 99.1 Pulse 97 88 Resp 24 B/P (MAP) 148/82 138/69 Pulse Ox 100 98 98 O2 Delivery Mechanical Ventilator Ventilator Ventilator Ventilator 08/18/21 08/18/21 10:00 11:00 Pulse 88 101 Resp B/P (MAP) 138/69 143/83 Pulse Ox 98 99 O2 Delivery Ventilator Ventilator Intake and Output 08/17/21 08/17/21 08/18/21 15:00 23:00 07:00 Intake Total 245 ml 1247 ml 1402.6 ml Output Total 650 ml 725 ml 490 ml Balance -405 ml 522 ml 912.6 ml Justifications for Admission Other Justification MARY CORDOVA MD Aug 18, 2021 11:45
[2021-08-18] MEDS: MIDAZOLAM 100mg/100ml NS BAG 100 ML IV PRN (11:55)
[2021-08-18] MEDS: fentaNYL HIGH DOSE PCA 55 ML IV PRN (17:31)
[2021-08-19] VITALS (27 sets, daily range): BP systolic 72–180; BP diastolic 47–102
[2021-08-19] MEDS: MIDAZOLAM 100mg/100ml NS BAG 100 ML IV PRN (05:45)
[2021-08-19] MEDS: HEPARIN for SUB-Q USE 5,000 UNIT/ML VIAL. SQ SCH ×3 (05:46→21:54)
[2021-08-19] MEDS: PROPOFOL 100 ML IV PRN ×3 (05:46→21:53)
--- NOTE | 2021-08-19 08:37 | PDOC ---
PULMONARY PROGRESS NOTES DATE: 08/19/21 TIME: 08:36 Subjective No overnight events Remains hemodynamically stable no significant change overnight remains on assist control ventilation 40% FiO2 Discussed with RT and RN Vitals Vital Signs Date Time Temp Pulse Resp B/P (MAP) Pulse Ox O2 Delivery O2 Flow Rate FiO2 08/19/21 08:00 Mechanical Ventilator 08/19/21 08:00 98.6 90 26 125/87 99 98.6 Lungs: Crackles Cardiovascular: S1, S2 Abdomen: Soft, Non-tender Extremities: No Edema Skin: Warm Labs Laboratory Tests Test 08/18/21 05:30 White Blood Count 7.9 x10^3/uL (4.0-11.0) Red Blood Count 4.11 x10^6/uL (4.30-5.70) Hemoglobin 12.2 g/dL (13.0-17.5) Hematocrit 36.7 % (39.0-53.0) Mean Corpuscular Volume 89 fL (79-100) Mean Corpuscular Hemoglobin 30 pg (25-35) Mean Corpuscular Hemoglobin Concent 33 g/dL (31-37) Red Cell Distribution Width 14.6 % (11.5-14.5) Platelet Count 320 x10^3/uL (140-400) Neutrophils (%) (Auto) 68 % (31-73) Lymphocytes (%) (Auto) 16 % (24-48) Monocytes (%) (Auto) 7 % (0-9) Eosinophils (%) (Auto) 8 % (0-3) Basophils (%) (Auto) 1 % (0-3) Neutrophils # (Auto) 5.4 x10^3/uL (1.8-7.7) Lymphocytes # (Auto) 1.2 x10^3/uL (1.0-4.8) Monocytes # (Auto) 0.5 x10^3/uL (0.0-1.1) Eosinophils # (Auto) 0.6 x10^3/uL (0.0-0.7) Basophils # (Auto) 0.1 x10^3/uL (0.0-0.2) Sodium Level 139 mmol/L (136-145) Potassium Level 4.3 mmol/L (3.5-5.1) Chloride Level 102 mmol/L (98-107) Carbon Dioxide Level 31 mmol/L (21-32) Anion Gap 6 (6-14) Blood Urea Nitrogen 18 mg/dL (8-26) Creatinine 0.6 mg/dL (0.7-1.3) Estimated GFR (Cockcroft-Gault) 136.1 Glucose Level 104 mg/dL (70-99) Calcium Level 8.0 mg/dL (8.5-10.1) Impression . 1. Acute hypoxic respiratory failure secondary to COVID-19 pneumonia, acute respiratory distress syndrome and possible underlying fibrosis and emphysema. 2. Abnormal CT chest with diffuse pulmonary infiltrates with some ground glass infiltrates as well as evidence of the emphysema. May have a component of underlying fibrosis as well. No pulmonary embolism seen. 3. Hyponatremia. 4. Suspected underlying severe chronic obstructive pulmonary disease. 5. COVID-19 viral pneumonia. 6. Abnormal chest x-ray with bilateral diffuse infiltrates related to COVID-19 viral pneumonia. Plan . Updated 08/19 Discussed with RT and RN, discontinue sedation, attempt spontaneous trials for pressure support Timing of tracheotomy, per surgeon Continue current support Chest x-ray from yesterday reviewed, no significant change Remains hemodynamically stable Currently on 40% FiO2 5 of PEEP Discussed with RN and RT Finish course of antibiotics Nutritional support DVT GI prophylaxis CCT 30 minutes REBECCA DUGGAN MD Aug 19, 2021 08:37
[2021-08-19] MEDS: FAMOTIDINE 20 MG/2 ML VIAL IVP SCH ×2 (08:58→20:50)
--- NOTE | 2021-08-19 11:07 | PDOC ---
PROGRESS NOTES Date of Service: DATE: 08/19/21 TIME: 11:05 Subjective Subjective seen in ICU for ,pt on vent Objective Objective Vital Signs Date Time Temp Pulse Resp B/P (MAP) Pulse Ox O2 Delivery O2 Flow Rate FiO2 08/19/21 10:00 80 29 162/86 98 Ventilator 08/19/21 08:00 98.6 98.6 Intake and Output 08/19/21 07:00 Intake Total 1931.4 ml Output Total 2040 ml Balance -108.6 ml IV Total 275.4 ml Tube Feeding 1266 ml Other 390 ml Output Urine Total 2040 ml Physical Exam Physical Exam Pt is on vent Abdomen: Soft Extremities: No clubbing, No cyanosis General: No acute distress HEENT: Other (orally intubated) Lungs: Other (vent) Skin: No significant lesion Assessment Assessment ASSESSMENT: 1. Acute hypoxic respiratory failure. 2. COVID-19 pneumonia. 3. Presumed superimposed community-acquired pneumonia. 4. Possible underlying pulmonary fibrosis. 5. Chronic obstructive pulmonary disease. 6. Severe protein-calorie malnutrition. PLAN: wean off sedation vent weaning trials. spoke with pts girlfriend at bedside. pt scheduled for Tracheostomy next Friday Continue with mechanical ventilation, Continue with IV antibiotic. Continue with DVT and GI prophylaxis. spoke with RN. labs good. Comment Review of Relevant I have reviewed the following items shey (where applicable) has been applied. Vitals/I & O Vital Sign - Last 24 Hours 08/18/21 08/18/21 08/18/21 08/18/21 11:52 12:00 13:00 14:00 Temp 99.2 99.2 Pulse 98 101 101 Resp 24 24 25 B/P (MAP) 128/83 142/88 150/83 Pulse Ox 98 99 98 99 O2 Delivery Ventilator Ventilator Ventilator Ventilator 08/18/21 08/18/21 08/18/21 08/18/21 14:08 15:00 15:51 16:00 Temp 99.0 99.0 Pulse 92 96 Resp 24 24 B/P (MAP) 142/79 119/74 Pulse Ox 98 99 98 97 O2 Delivery Ventilator Ventilator Ventilator Ventilator 08/18/21 08/18/21 08/18/21 08/18/21 16:55 17:00 17:31 18:00 Pulse 92 91 Resp 24 24 24 B/P (MAP) 138/78 148/80 Pulse Ox 99 99 97 99 O2 Delivery Ventilator Ventilator Ventilator Ventilator 08/18/21 08/18/21 08/18/21 08/18/21 18:01 19:00 19:30 20:00 Pulse 77 Resp 20 26 B/P (MAP) 148/80 Pulse Ox 97 100 100 O2 Delivery Ventilator Ventilator Ventilator Mechanical Ventilator 08/18/21 08/18/21 08/18/21 08/18/21 20:00 21:00 22:00 23:00 Temp 98.1 98.1 Pulse 74 74 74 Resp 27 28 25 B/P (MAP) 148/80 87/56 78/49 Pulse Ox 99 99 99 99 O2 Delivery Ventilator Ventilator Ventilator Ventilator 08/18/21 08/19/21 08/19/21 08/19/21 23:00 00:01 01:00 02:00 Temp 98.4 98.4 Pulse 74 74 66 61 Resp 24 24 24 24 B/P (MAP) 82/46 72/47 81/53 79/49 Pulse Ox 99 99 99 99 O2 Delivery Ventilator Ventilator Ventilator Ventilator 08/19/21 08/19/21 08/19/21 08/19/21 03:00 03:00 04:00 05:00 Temp 99.2 99.2 Pulse 61 61 61 Resp 24 30 24 B/P (MAP) 136/82 112/68 108/64 Pulse Ox 95 100 97 100 O2 Delivery Ventilator Ventilator Ventilator Ventilator 08/19/21 08/19/21 08/19/21 08/19/21 06:00 07:00 08:00 08:00 Temp 98.6 98.6 Pulse 61 80 90 Resp 24 24 26 B/P (MAP) 138/58 117/77 125/87 Pulse Ox 100 98 99 O2 Delivery Ventilator Ventilator Ventilator Mechanical Ventilator 08/19/21 08/19/21 08/19/21 08:55 09:00 10:00 Pulse 80 80 Resp 24 29 B/P (MAP) 155/91 162/86 Pulse Ox 97 98 98 O2 Delivery Ventilator Ventilator Ventilator Intake and Output 08/18/21 08/18/21 08/19/21 15:00 23:00 07:00 Intake Total 843 ml 828.4 ml 260 ml Output Total 820 ml 740 ml 480 ml Balance 23 ml 88.4 ml -220 ml Justifications for Admission Other Justification MARY CORDOVA MDb 6, 2022 11:07
[2021-08-19 11:31] LABS: BASE EXCESS ABG 3 mmol/L (-3-3); HCO3 ABG 27 mmol/L (21-28); PCO2 ABG 39 mmHg (35-46); PO2 ABG 79 mmHg (65-108); SAT O2 ABG 96 % (92-99)
[2021-08-19 11:33] LABS: FIO2 ABG 40 cpap trial
[2021-08-19] MEDS: fentaNYL HIGH DOSE PCA 55 ML IV PRN (18:38)
[2021-08-20] VITALS (23 sets, daily range): BP systolic 94–188; BP diastolic 47–104
[2021-08-20] MEDS: MIDAZOLAM 100mg/100ml NS BAG 100 ML IV PRN (00:41)
[2021-08-20] MEDS: PROPOFOL 100 ML IV PRN (03:08)
[2021-08-20] MEDS: ACETAMINOPHEN 650 MG/20.3 ML SOLUTION. PEG PRN (03:50)
[2021-08-20] MEDS: HEPARIN for SUB-Q USE 5,000 UNIT/ML VIAL. SQ SCH (05:41)
--- NOTE | 2021-08-20 06:03 | RAD ---
XR CHEST 1V Clinical History: Follow-up intubated Technique: AP view of the chest was obtained at 08/20/2021 5:19 AM. Comparison: August 17, 2021. Findings: The heart is top normal limits in size. There is patchy opacification of the lungs bilaterally. The p ortal vessels not well seen. The endotracheal tube and enteric tube are again seen unchanged. The rig ht jugular line is removed. Impression: Diffuse pulmonary infiltrates is moderately improved. Electronically signed by: Khang Arellano III, MD (08/20/2021 6:01 AM) [facility]
--- NOTE | 2021-08-20 08:23 | PDOC ---
PULMONARY PROGRESS NOTES DATE: 08/20/21 TIME: 08:21 Subjective Discussed with RT, continue to wean as tolerated No overnight events Remains hemodynamically stable no significant change overnight remains on assist control ventilation 40% FiO2 Vitals Vital Signs Date Time Temp Pulse Resp B/P (MAP) Pulse Ox O2 Delivery O2 Flow Rate FiO2 08/20/21 07:52 99 Ventilator 08/20/21 06:00 97 21 98/47 08/20/21 05:00 98.8 98.8 08/19/21 21:14 40.0 Lungs: Crackles Cardiovascular: S1, S2 Abdomen: Soft, Non-tender Extremities: No Edema Skin: Warm Labs Laboratory Tests Test 08/19/21 11:20 08/19/21 11:43 O2 Saturation 96 % (92-99) Arterial Blood pH 7.45 (7.35-7.45) Arterial Blood pCO2 at Patient Temp 39 mmHg (35-46) Arterial Blood pO2 at Patient Temp 79 mmHg (65-108) Arterial Blood HCO3 27 mmol/L (21-28) Arterial Blood Base Excess 3 mmol/L (-3-3) FiO2 40 cpap trial Glucose (Fingerstick) 219 mg/dL (70-99) Laboratory Tests Test 08/19/21 11:20 08/19/21 11:43 O2 Saturation 96 % (92-99) Arterial Blood pH 7.45 (7.35-7.45) Arterial Blood pCO2 at Patient Temp 39 mmHg (35-46) Arterial Blood pO2 at Patient Temp 79 mmHg (65-108) Arterial Blood HCO3 27 mmol/L (21-28) Arterial Blood Base Excess 3 mmol/L (-3-3) FiO2 40 cpap trial Glucose (Fingerstick) 219 mg/dL (70-99) Impression . 1. Acute hypoxic respiratory failure secondary to COVID-19 pneumonia, acute respiratory distress syndrome and possible underlying fibrosis and emphysema. 2. Abnormal CT chest with diffuse pulmonary infiltrates with some ground glass infiltrates as well as evidence of the emphysema. May have a component of underlying fibrosis as well. No pulmonary embolism seen. 3. Hyponatremia. 4. Suspected underlying severe chronic obstructive pulmonary disease. 5. COVID-19 viral pneumonia. 6. Abnormal chest x-ray with bilateral diffuse infiltrates related to COVID-19 viral pneumonia. Plan . Updated 08/20 Chest x-ray reviewed, improving infiltrates Discussed with RN and RT Pressure support throughout the day Timing of tracheotomy, per surgeon Continue current support Nutritional support Remains hemodynamically stable Currently on 40% FiO2 5 of PEEP Finish course of antibiotics DVT GI prophylaxis CCT 30 minutes REBECCA DUGGAN MD Aug 20, 2021 08:23
--- NOTE | 2021-08-20 08:33 | PDOC ---
PARKER SANTOS [employer] 08/20/2133: SURGICAL PROGRESS NOTE DATE: 08/20/21 TIME: 08:31 Subjective wean trial today planned did not awaken yesterday with sedation off Vital Signs Vital Signs Date Time Temp Pulse Resp B/P (MAP) Pulse Ox O2 Delivery O2 Flow Rate FiO2 08/20/21 08:21 99 Ventilator 08/20/21 06:00 97 21 98/47 08/20/21 05:00 98.8 98.8 08/19/21 21:14 40.0 I&O Intake and Output 08/20/21 07:00 Intake Total 2869.5 ml Output Total 1491 ml Balance 1378.5 ml IV Total 460.5 ml Tube Feeding 1659 ml Other 750 ml Output Urine Total 1490 ml Stool Total 1 ml General: Other (shifting frequently in bed ) HEENT: Other (vent) Abdomen: Soft Labs Laboratory Tests Test 08/19/21 11:20 08/19/21 11:43 O2 Saturation 96 % (92-99) Arterial Blood pH 7.45 (7.35-7.45) Arterial Blood pCO2 at Patient Temp 39 mmHg (35-46) Arterial Blood pO2 at Patient Temp 79 mmHg (65-108) Arterial Blood HCO3 27 mmol/L (21-28) Arterial Blood Base Excess 3 mmol/L (-3-3) FiO2 40 cpap trial Glucose (Fingerstick) 219 mg/dL (70-99) Laboratory Tests Test 08/19/21 11:20 08/19/21 11:43 O2 Saturation 96 % (92-99) Arterial Blood pH 7.45 (7.35-7.45) Arterial Blood pCO2 at Patient Temp 39 mmHg (35-46) Arterial Blood pO2 at Patient Temp 79 mmHg (65-108) Arterial Blood HCO3 27 mmol/L (21-28) Arterial Blood Base Excess 3 mmol/L (-3-3) FiO2 40 cpap trial Glucose (Fingerstick) 219 mg/dL (70-99) Problem List tentative plan for trach in AM if still requiring Justicifation of Admission Dx: Justifications for Admission: Justification of Admission Dx: N/A TERESA ODEN MD 08/20/212053: SURGICAL PROGRESS NOTE Assessment/Plan Pt seen and examined. Agree with Ms. Santos's note Pt is now extubated. Will hold trach at this time. PARKER SANTOS APRN Aug 20, 2021 08:33 TERESA ODEN MD Aug 20, 2021 20:54
--- NOTE | 2021-08-20 09:25 | PDOC ---
PROGRESS NOTES Date of Service: DATE: 08/20/21 TIME: 09:23 Subjective Subjective Pt seen in ICU for Dr Dangelo Objective Objective Vital Signs Date Time Temp Pulse Resp B/P (MAP) Pulse Ox O2 Delivery O2 Flow Rate FiO2 08/20/21 08:21 99 Ventilator 08/20/21 06:00 97 21 98/47 08/20/21 05:00 98.8 98.8 08/19/21 21:14 40.0 Intake and Output0 08/20/21 07:00 Intake Total 2869.5 ml Output Total 1491 ml Balance 1378.5 ml IV Total 460.5 ml Tube Feeding 1659 ml Other 750 ml Output Urine Total 1490 ml Stool Total 1 ml Physical Exam Physical Exam Pt is on vent Abdomen: Soft Extremities: No clubbing, No cyanosis General: Other (shifting frequently in bed ) HEENT: Other (vent) Lungs: Other (vent) Skin: No significant lesion Assessment Assessment ASSESSMENT: 1. Acute hypoxic respiratory failure. 2. COVID-19 pneumonia. 3. Presumed superimposed community-acquired pneumonia. 4. Possible underlying pulmonary fibrosis. 5. Chronic obstructive pulmonary disease. 6. Severe protein-calorie malnutrition. PLAN: wean off sedation vent weaning trials. spoke with pts girlfriend at bedside. pt scheduled for Tracheostomy Friday Continue with mechanical ventilation, completed IV antibiotic. Continue with DVT and GI prophylaxis. spoke with RN. Comment Review of Relevant I have reviewed the following items shey (where applicable) has been applied. Labs Laboratory Tests Test 08/19/21 11:20 08/19/21 11:43 O2 Saturation 96 % (92-99) Arterial Blood pH 7.45 (7.35-7.45) Arterial Blood pCO2 at Patient Temp 39 mmHg (35-46) Arterial Blood pO2 at Patient Temp 79 mmHg (65-108) Arterial Blood HCO3 27 mmol/L (21-28) Arterial Blood Base Excess 3 mmol/L (-3-3) FiO2 40 cpap trial Glucose (Fingerstick) 219 mg/dL (70-99) Medications Current Medications Heparin Sodium (Porcine) (Heparin Sodium) 5,000 unit Q8HRS SQ ; Start 08/22/21 at 06:00 Vitals/I & O Vital Sign - Last 24 Hours 08/19/21 08/19/21 08/19/21 08/19/21 10:00 11:00 11:14 12:00 Temp 98.9 98.9 Pulse 80 115 118 Resp 29 30 32 B/P (MAP) 162/86 157/99 179/89 Pulse Ox 98 98 99 100 O2 Delivery Ventilator Ventilator Ventilator Ventilator 08/19/21 08/19/21 08/19/21 08/19/21 13:00 13:30 13:45 13:51 Pulse 115 121 107 Resp 33 34 27 B/P (MAP) 172/88 180/75 118/65 Pulse Ox 98 98 99 99 O2 Delivery Ventilator Ventilator 08/19/21 08/19/21 08/19/21 08/19/21 14:00 15:04 15:36 16:00 Temp 99.1 99.1 Pulse 108 108 105 Resp 25 27 24 B/P (MAP) 148/90 131/96 149/102 Pulse Ox 99 100 100 100 O2 Delivery Ventilator Ventilator Ventilator Ventilator 08/19/21 08/19/21 08/19/21 08/19/21 17:00 17:57 18:00 18:38 Pulse 67 67 Resp 24 24 24 B/P (MAP) 132/94 109/69 Pulse Ox 100 100 100 99 O2 Delivery Ventilator Ventilator Ventilator Ventilator 08/19/21 08/19/21 08/19/21 08/19/21 19:00 20:00 20:00 20:00 Temp 98.9 98.9 Pulse 60 63 Resp 24 24 B/P (MAP) 82/50 86/67 Pulse Ox 99 98 99 O2 Delivery Ventilator Mechanical Ventilator Ventilator Ventilator 08/19/21 08/19/21 08/19/21 08/19/21 21:00 21:14 22:00 23:00 Pulse 62 75 66 Resp 24 24 24 B/P (MAP) 100/65 101/61 92/59 Pulse Ox 99 99 99 99 O2 Delivery Ventilator Ventilator Ventilator O2 Flow Rate 40.0 08/19/21 08/20/21 08/20/21 08/20/21 23:59 00:00 01:00 02:00 Temp 99.0 99.0 Pulse 72 65 66 Resp 24 24 25 B/P (MAP) 90/56 94/62 139/62 Pulse Ox 99 99 99 99 O2 Delivery Ventilator Ventilator Ventilator Ventilator 08/20/21 08/20/21 08/20/21 08/20/21 03:00 03:00 04:10 05:00 Temp 98.8 98.8 Pulse 77 79 61 Resp 25 25 26 B/P (MAP) 132/72 131/74 99/65 Pulse Ox 99 100 99 100 O2 Delivery Ventilator Ventilator Ventilator Ventilator 08/20/21 08/20/21 08/20/21 06:00 07:52 08:21 Pulse 97 Resp 21 B/P (MAP) 98/47 Pulse Ox 99 99 99 O2 Delivery Ventilator Ventilator Ventilator Intake and Output 08/19/21 08/19/21 08/20/21 15:00 23:00 07:00 Intake Total 260 ml 1283.5 ml 1326 ml Output Total 781 ml 485 ml 225 ml Balance -521 ml 798.5 ml 1101 ml Justifications for Admission Other Justification MARY CORDOVA MD Aug 20, 2021 09:25
[2021-08-20] MEDS: FAMOTIDINE 20 MG/2 ML VIAL IVP SCH ×2 (09:27→21:02)
--- NOTE | 2021-08-20 15:34 | NUR ---
SS following up with discharge planning. SS reviewed pt chart and discussed with pt RN. Pt extubated today and is currently requiring oxygen at four liters nasal canula. COVID19 recovered. No sedation. PT/OT/ST when medically ready to participate. Not ready. SS will continue to follow for discharge planning.
[2021-08-21] VITALS (13 sets, daily range): BP systolic 131–173; BP diastolic 76–99
[2021-08-21] MEDS ORDERED: fentaNYL PF VIAL 100 MCG/2 ML VIAL IVP PRN ×2 (06:00)
[2021-08-21] MEDS ORDERED: PROCHLORPERAZINE 10 MG/2 ML VIAL. IVP PRN (06:00)
[2021-08-21] MEDS ORDERED: HYDROmorphone 2 MG/ML INJ. IVP PRN (06:00)
[2021-08-21] MEDS ORDERED: MORPHINE SULFATE 2 MG/ML INJ. IVP PRN (06:00)
[2021-08-21] MEDS ORDERED: IV RINGERS,LACTATED 1000ML 1,000 ML IV SCH (06:00)
[2021-08-21 06:11] LABS: CALCIUM 8.7 mg/dL (8.5-10.1); CREATININE 0.7 mg/dL (0.7-1.3); GFR 113.9; POTASSIUM 4.2 mmol/L (3.5-5.1)
[2021-08-21 06:14] LABS: BASO # 0.1 x10^3/uL (0.0-0.2); BASO % 1 % (0-3); EOS # 0.1 x10^3/uL (0.0-0.7); EOS % 1 % (0-3); LYMPH # 0.9 x10^3/uL (1.0-4.8); LYMPH % 9 % (24-48); MEAN CORPUSCULAR HEMOGLOBIN 30 pg (25-35); MEAN CORPUSCULAR HGB CONC 34 g/dL (31-37); MEAN CORPUSCULAR VOLUME 89 fL (79-100); MONO # 0.4 x10^3/uL (0.0-1.1); MONO % 5 % (0-9); NEUT # 7.8 x10^3/uL (1.8-7.7); NEUT % 84 % (31-73); PLATELET COUNT 453 x10^3/uL (140-400); RED BLOOD COUNT 4.63 x10^6/uL (4.30-5.70); RED CELL DISTRIBUTION WIDTH 14.2 % (11.5-14.5); WHITE BLOOD COUNT 9.2 x10^3/uL (4.0-11.0)
--- NOTE | 2021-08-21 08:58 | PDOC ---
PULMONARY PROGRESS NOTES DATE: 08/21/21 TIME: 08:58 Subjective Patient did well yesterday extubated after spontaneous trial Currently somewhat confused Quit tobacco 15 years ago Does not wear oxygen at home Vitals Vital Signs Date Time Temp Pulse Resp B/P (MAP) Pulse Ox O2 Delivery O2 Flow Rate FiO2 08/21/21 06:00 105 30 166/76 (106) 96 Nasal Cannula 4.0 08/21/21 04:00 98.4 98.4 Lungs: Crackles Cardiovascular: S1, S2 Abdomen: Soft, Non-tender Extremities: No Edema Skin: Warm Labs Laboratory Tests Test 08/19/21 11:20 08/19/21 11:43 08/21/21 05:20 O2 Saturation 96 % (92-99) Arterial Blood pH 7.45 (7.35-7.45) Arterial Blood pCO2 at Patient Temp 39 mmHg (35-46) Arterial Blood pO2 at Patient Temp 79 mmHg (65-108) Arterial Blood HCO3 27 mmol/L (21-28) Arterial Blood Base Excess 3 mmol/L (-3-3) FiO2 40 cpap trial Glucose (Fingerstick) 219 mg/dL (70-99) White Blood Count 9.2 x10^3/uL (4.0-11.0) Red Blood Count 4.63 x10^6/uL (4.30-5.70) Hemoglobin 14.0 g/dL (13.0-17.5) Hematocrit 41.0 % (39.0-53.0) Mean Corpuscular Volume 89 fL (79-100) Mean Corpuscular Hemoglobin 30 pg (25-35) Mean Corpuscular Hemoglobin Concent 34 g/dL (31-37) Red Cell Distribution Width 14.2 % (11.5-14.5) Platelet Count 453 x10^3/uL (140-400) Neutrophils (%) (Auto) 84 % (31-73) Lymphocytes (%) (Auto) 9 % (24-48) Monocytes (%) (Auto) 5 % (0-9) Eosinophils (%) (Auto) 1 % (0-3) Basophils (%) (Auto) 1 % (0-3) Neutrophils # (Auto) 7.8 x10^3/uL (1.8-7.7) Lymphocytes # (Auto) 0.9 x10^3/uL (1.0-4.8) Monocytes # (Auto) 0.4 x10^3/uL (0.0-1.1) Eosinophils # (Auto) 0.1 x10^3/uL (0.0-0.7) Basophils # (Auto) 0.1 x10^3/uL (0.0-0.2) Sodium Level 143 mmol/L (136-145) Potassium Level 4.2 mmol/L (3.5-5.1) Chloride Level 102 mmol/L (98-107) Carbon Dioxide Level 27 mmol/L (21-32) Anion Gap 14 (6-14) Blood Urea Nitrogen 16 mg/dL (8-26) Creatinine 0.7 mg/dL (0.7-1.3) Estimated GFR (Cockcroft-Gault) 113.9 Glucose Level 113 mg/dL (70-99) Calcium Level 8.7 mg/dL (8.5-10.1) Laboratory Tests Test 08/21/21 05:20 White Blood Count 9.2 x10^3/uL (4.0-11.0) Red Blood Count 4.63 x10^6/uL (4.30-5.70) Hemoglobin 14.0 g/dL (13.0-17.5) Hematocrit 41.0 % (39.0-53.0) Mean Corpuscular Volume 89 fL (79-100) Mean Corpuscular Hemoglobin 30 pg (25-35) Mean Corpuscular Hemoglobin Concent 34 g/dL (31-37) Red Cell Distribution Width 14.2 % (11.5-14.5) Platelet Count 453 x10^3/uL (140-400) Neutrophils (%) (Auto) 84 % (31-73) Lymphocytes (%) (Auto) 9 % (24-48) Monocytes (%) (Auto) 5 % (0-9) Eosinophils (%) (Auto) 1 % (0-3) Basophils (%) (Auto) 1 % (0-3) Neutrophils # (Auto) 7.8 x10^3/uL (1.8-7.7) Lymphocytes # (Auto) 0.9 x10^3/uL (1.0-4.8) Monocytes # (Auto) 0.4 x10^3/uL (0.0-1.1) Eosinophils # (Auto) 0.1 x10^3/uL (0.0-0.7) Basophils # (Auto) 0.1 x10^3/uL (0.0-0.2) Sodium Level 143 mmol/L (136-145) Potassium Level 4.2 mmol/L (3.5-5.1) Chloride Level 102 mmol/L (98-107) Carbon Dioxide Level 27 mmol/L (21-32) Anion Gap 14 (6-14) Blood Urea Nitrogen 16 mg/dL (8-26) Creatinine 0.7 mg/dL (0.7-1.3) Estimated GFR (Cockcroft-Gault) 113.9 Glucose Level 113 mg/dL (70-99) Calcium Level 8.7 mg/dL (8.5-10.1) Impression . 1. Acute hypoxic respiratory failure secondary to COVID-19 pneumonia, acute respiratory distress syndrome and possible underlying fibrosis and emphysema. 2. Abnormal CT chest with diffuse pulmonary infiltrates with some ground glass infiltrates as well as evidence of the emphysema. May have a component of underlying fibrosis as well. No pulmonary embolism seen. 3. Hyponatremia. 4. Suspected underlying severe chronic obstructive pulmonary disease. 5. COVID-19 viral pneumonia. 6. Abnormal chest x-ray with bilateral diffuse infiltrates related to COVID-19 viral pneumonia. Plan . Updated 08/21 Extubated 08/20 Discussed with significant other at the bedside Continue current support Patient does not wear oxygen at home Patient quit tobacco 15 years ago Nutritional support Finished course of steroids and antibiotics REBECCA DUGGAN MD Aug 21, 2021 08:58
[2021-08-21] MEDS: FAMOTIDINE 20 MG/2 ML VIAL IVP SCH ×2 (09:00→20:56)
--- NOTE | 2021-08-21 09:25 | PDOC ---
PROGRESS NOTES Date of Service: DATE: 08/21/21 TIME: 09:22 Subjective Subjective Seen in ICU for . Pt was extubated yesterday Objective Objective Vital Signs Date Time Temp Pulse Resp B/P (MAP) Pulse Ox O2 Delivery O2 Flow Rate FiO2 08/21/21 06:00 105 30 166/76 (106) 96 Nasal Cannula 4.0 08/21/21 04:00 98.4 98.4 Intake and Output 08/21/21 07:00 Intake Total 1069 ml Output Total 1655 ml Balance -586 ml IV Total 102 ml Tube Feeding 706 ml Other 261 ml Output Urine Total 1655 ml Physical Exam Abdomen: Soft Extremities: No clubbing, No cyanosis General: Other (shifting frequently in bed ) HEENT: Other (vent) Lungs: Other (ventimask) Psych/Mental Status: Other (confused) Skin: No significant lesion Assessment Assessment ASSESSMENT: 1. Acute hypoxic respiratory failure. 2. COVID-19 pneumonia. 3. Presumed superimposed community-acquired pneumonia. 4. Possible underlying pulmonary fibrosis. 5. Chronic obstructive pulmonary disease. 6. Severe protein-calorie malnutrition. PLAN: Pt was extubated 08/20/21. on Ventimask. labs good. spoke with pts girlfriend at bedside. completed IV antibiotic. Continue with DVT and GI prophylaxis. spoke with RN. Comment Review of Relevant I have reviewed the following items shey (where applicable) has been applied. Labs Laboratory Tests Test 08/21/21 05:20 White Blood Count 9.2 x10^3/uL (4.0-11.0) Red Blood Count 4.63 x10^6/uL (4.30-5.70) Hemoglobin 14.0 g/dL (13.0-17.5) Hematocrit 41.0 % (39.0-53.0) Mean Corpuscular Volume 89 fL (79-100) Mean Corpuscular Hemoglobin 30 pg (25-35) Mean Corpuscular Hemoglobin Concent 34 g/dL (31-37) Red Cell Distribution Width 14.2 % (11.5-14.5) Platelet Count 453 x10^3/uL (140-400) Neutrophils (%) (Auto) 84 % (31-73) Lymphocytes (%) (Auto) 9 % (24-48) Monocytes (%) (Auto) 5 % (0-9) Eosinophils (%) (Auto) 1 % (0-3) Basophils (%) (Auto) 1 % (0-3) Neutrophils # (Auto) 7.8 x10^3/uL (1.8-7.7) Lymphocytes # (Auto) 0.9 x10^3/uL (1.0-4.8) Monocytes # (Auto) 0.4 x10^3/uL (0.0-1.1) Eosinophils # (Auto) 0.1 x10^3/uL (0.0-0.7) Basophils # (Auto) 0.1 x10^3/uL (0.0-0.2) Sodium Level 143 mmol/L (136-145) Potassium Level 4.2 mmol/L (3.5-5.1) Chloride Level 102 mmol/L (98-107) Carbon Dioxide Level 27 mmol/L (21-32) Anion Gap 14 (6-14) Blood Urea Nitrogen 16 mg/dL (8-26) Creatinine 0.7 mg/dL (0.7-1.3) Estimated GFR (Cockcroft-Gault) 113.9 Glucose Level 113 mg/dL (70-99) Calcium Level 8.7 mg/dL (8.5-10.1) Medications Current Medications Fentanyl Citrate (Fentanyl 2ml Vial) 25 mcg PRN Q5MIN PRN IVP MILD PAIN 1-3; Start 08/21/21 at 06:00; Stop 08/22/21 at 05:59 Fentanyl Citrate (Fentanyl 2ml Vial) 50 mcg PRN Q5MIN PRN IVP MODERATE PAIN 4- 6; Start 08/21/21 at 06:00; Stop 08/22/21 at 05:59 Heparin Sodium (Porcine) (Heparin Sodium) 5,000 unit Q8HRS SQ ; Start 08/22/21 at 06:00 Hydromorphone HCl (Dilaudid) 0.5 mg PRN Q10MIN PRN IVP SEVERE PAIN 7-10, 2nd CHOICE; Start 08/21/21 at 06:00; Stop 08/22/21 at 05:59 Morphine Sulfate (Morphine Sulfate) 1 mg PRN Q10MIN PRN IVP SEVERE PAIN 7-10; Start 08/21/21 at 06:00; Stop 08/22/21 at 05:59 Prochlorperazine Edisylate (Compazine) 5 mg PACU PRN PRN IVP NAUSEA, MRX1; Start 08/21/21 at 06:00; Stop 08/22/21 at 05:59 Ringer's Solution 1,000 ml @ 30 mls/hr Q24H IV ; Start 08/21/21 at 06:00; Stop 08/21/21 at 17:59 Vitals/I & O Vital Sign - Last 24 Hours 08/20/21 08/20/21 08/20/21 08/20/21 10:00 11:00 11:37 12:00 Temp 99.6 99.6 Pulse 97 97 108 Resp 22 B/P (MAP) 151/94 150/85 172/96 Pulse Ox 98 98 98 99 O2 Delivery Ventilator Ventilator Ventilator C-pap trial 08/20/21 08/20/21 08/20/21 08/20/21 13:00 14:00 15:00 16:00 Temp 99.2 99.2 Pulse 97 97 97 109 Resp 17 18 20 20 B/P (MAP) 188/100 170/88 160/104 172/100 Pulse Ox 99 99 99 100 O2 Delivery C-pap trial Nasal Cannula Nasal Cannula Nasal Cannula O2 Flow Rate 4.0 4.0 4.0 08/20/21 08/20/21 08/20/21 08/20/21 17:00 18:00 19:00 20:00 Temp 98.2 98.2 Pulse 97 104 115 116 Resp 20 20 24 30 B/P (MAP) 161/96 160/96 161/94 (116) 151/81 (104) Pulse Ox 99 98 96 96 O2 Delivery Nasal Cannula Nasal Cannula Nasal Cannula Nasal Cannula O2 Flow Rate 4.0 4.0 4.0 4.0 08/20/21 08/20/21 08/20/21 08/20/21 20:00 21:00 22:00 23:00 Pulse 109 106 110 Resp 30 28 27 B/P (MAP) 145/92 (109) 163/93 (116) 154/94 (114) Pulse Ox 96 99 97 O2 Delivery Nasal Cannula Nasal Cannula Nasal Cannula Nasal Cannula O2 Flow Rate 4.0 4.0 4.0 4.0 08/21/21 08/21/21 08/21/21 08/21/21 00:00 01:00 02:00 03:00 Temp 99.0 99.0 Pulse 99 107 103 107 Resp 23 21 29 30 B/P (MAP) 151/95 (113) 141/96 (111) 140/82 (101) 150/89 (109) Pulse Ox 97 99 98 99 O2 Delivery Nasal Cannula Nasal Cannula Nasal Cannula Nasal Cannula O2 Flow Rate 4.0 4.0 4.0 4.0 08/21/21 08/21/21 08/21/21 04:00 05:00 06:00 Temp 98.4 98.4 Pulse 101 109 105 Resp 28 30 30 B/P (MAP) 156/90 (112) 131/88 (102) 166/76 (106) Pulse Ox 99 96 96 O2 Delivery Nasal Cannula Nasal Cannula Nasal Cannula O2 Flow Rate 4.0 4.0 4.0 Intake and Output 08/20/21 08/20/21 08/21/21 15:00 23:00 07:00 Intake Total 492 ml 577 ml Output Total 700 ml 480 ml 475 ml Balance -208 ml 97 ml -475 ml Justifications for Admission Other Justification MARY CORDOVA MD Aug 21, 2021 09:25
[2021-08-21] MEDS: HEPARIN for SUB-Q USE 5,000 UNIT/ML VIAL. SQ SCH ×2 (16:34→21:27)
[2021-08-22] VITALS (13 sets, daily range): BP systolic 123–189; BP diastolic 71–98
[2021-08-22] MEDS: HEPARIN for SUB-Q USE 5,000 UNIT/ML VIAL. SQ SCH ×3 (05:38→20:57)
[2021-08-22] MEDS: FAMOTIDINE 20 MG/2 ML VIAL IVP SCH ×2 (09:00→20:56)
--- NOTE | 2021-08-22 09:39 | PDOC ---
PULMONARY PROGRESS NOTES DATE: 08/22/21 TIME: 09:38 Subjective Patient knows that he is in the hospital Not short of breath Was not drinking alcohol on a regular basis prior to admission Patient at times is delirious and confused patient did well yesterday extubated after spontaneous trial Currently somewhat confused Quit tobacco 15 years ago Does not wear oxygen at home Vitals Vital Signs Date Time Temp Pulse Resp B/P (MAP) Pulse Ox O2 Delivery O2 Flow Rate FiO2 08/22/21 08:00 99.4 99 32 160/95 (116) 86 Venturi Mask 99.4 08/21/21 07:00 4.0 Lungs: Crackles Cardiovascular: S1, S2 Abdomen: Soft, Non-tender Extremities: No Edema Skin: Warm Labs Laboratory Tests Test 08/21/21 05:20 White Blood Count 9.2 x10^3/uL (4.0-11.0) Red Blood Count 4.63 x10^6/uL (4.30-5.70) Hemoglobin 14.0 g/dL (13.0-17.5) Hematocrit 41.0 % (39.0-53.0) Mean Corpuscular Volume 89 fL (79-100) Mean Corpuscular Hemoglobin 30 pg (25-35) Mean Corpuscular Hemoglobin Concent 34 g/dL (31-37) Red Cell Distribution Width 14.2 % (11.5-14.5) Platelet Count 453 x10^3/uL (140-400) Neutrophils (%) (Auto) 84 % (31-73) Lymphocytes (%) (Auto) 9 % (24-48) Monocytes (%) (Auto) 5 % (0-9) Eosinophils (%) (Auto) 1 % (0-3) Basophils (%) (Auto) 1 % (0-3) Neutrophils # (Auto) 7.8 x10^3/uL (1.8-7.7) Lymphocytes # (Auto) 0.9 x10^3/uL (1.0-4.8) Monocytes # (Auto) 0.4 x10^3/uL (0.0-1.1) Eosinophils # (Auto) 0.1 x10^3/uL (0.0-0.7) Basophils # (Auto) 0.1 x10^3/uL (0.0-0.2) Sodium Level 143 mmol/L (136-145) Potassium Level 4.2 mmol/L (3.5-5.1) Chloride Level 102 mmol/L (98-107) Carbon Dioxide Level 27 mmol/L (21-32) Anion Gap 14 (6-14) Blood Urea Nitrogen 16 mg/dL (8-26) Creatinine 0.7 mg/dL (0.7-1.3) Estimated GFR (Cockcroft-Gault) 113.9 Glucose Level 113 mg/dL (70-99) Calcium Level 8.7 mg/dL (8.5-10.1) Impression . 1. Acute hypoxic respiratory failure secondary to COVID-19 pneumonia, acute respiratory distress syndrome and possible underlying fibrosis and emphysema. 2. Abnormal CT chest with diffuse pulmonary infiltrates with some ground glass infiltrates as well as evidence of the emphysema. May have a component of underlying fibrosis as well. No pulmonary embolism seen. 3. Hyponatremia. 4. Suspected underlying severe chronic obstructive pulmonary disease. 5. COVID-19 viral pneumonia. 6. Abnormal chest x-ray with bilateral diffuse infiltrates related to COVID-19 viral pneumonia. Plan . Updated 08/22 Discussed with ROLAND Khan scheduled, incentive spirometry, speech eval Possible BiPAP Extubated 08/20 Discussed with significant other at the bedside Continue current support Patient does not wear oxygen at home Patient quit tobacco 15 years ago, quit alcohol many years ago Nutritional support Finished course of steroids and antibiotics REBECCA DUGGAN MD Aug 22, 2021 09:39
[2021-08-22] MEDS ORDERED: HALOPERIDOL LACTATE 5 MG/ML VIAL. IVP PRN (10:45)
[2021-08-22] MEDS: HALOPERIDOL LACTATE 5 MG/ML VIAL. IVP SCH ×3 (10:50→20:55)
[2021-08-22] MEDS ORDERED: ACETAMINOPHEN 650 MG SUPP.RECT. PR ONE (11:30)
[2021-08-22] MEDS ORDERED: PIP/TAZO PER PHARMACY MC PRN (11:30)
[2021-08-22] MEDS: PIPERACILLIN/TAZOBACTAM 4.5 GM in IV DEXTROSE 5% 100ML 100 ML IV SCH ×3 (11:45→23:32)
[2021-08-22 12:01] LABS: BILIRUBIN,URINE MODERATE (NEG); COLOR,URINE AMBER; NITRITE,URINE NEGATIVE (NEG); PROTEIN,URINE 30 mg/dL (NEG-TRACE)
[2021-08-22 12:02] LABS: BASO # 0.1 x10^3/uL (0.0-0.2); BASO % 1 % (0-3); EOS % 0 % (0-3); HEMATOCRIT 37.9 % (39.0-53.0); HEMOGLOBIN 12.6 g/dL (13.0-17.5); LYMPH # 0.8 x10^3/uL (1.0-4.8); LYMPH % 7 % (24-48); MEAN CORPUSCULAR HEMOGLOBIN 29 pg (25-35); MEAN CORPUSCULAR HGB CONC 33 g/dL (31-37); MEAN CORPUSCULAR VOLUME 88 fL (79-100); MONO # 0.7 x10^3/uL (0.0-1.1); MONO % 6 % (0-9); NEUT # 10.6 x10^3/uL (1.8-7.7); NEUT % 87 % (31-73); PLATELET COUNT 449 x10^3/uL (140-400); RED BLOOD COUNT 4.32 x10^6/uL (4.30-5.70); RED CELL DISTRIBUTION WIDTH 14.5 % (11.5-14.5); WHITE BLOOD COUNT 12.2 x10^3/uL (4.0-11.0)
[2021-08-22 12:08] LABS: CLARITY,URINE HAZY
--- NOTE | 2021-08-22 12:09 | RAD ---
EXAM: Chest, single view. HISTORY: Increased oxygen demand. COMPARISON: 08/20/2021 FINDINGS: A frontal view of the chest is obtained. There has been interval increase in diffuse inters titial infiltrate. There are stable small pleural effusions. There is a stable cardiac silhouette. Th ere has been removal of a nasogastric tube and endotracheal tube. IMPRESSION: Increased diffuse interstitial infiltrate. Stable small pleural effusions. Electronically signed by: Ellen Castro MD (08/22/2021 12:06 PM) [id number]
[2021-08-22 12:10] LABS: BACTERIA,URINE 0 /HPF (0-FEW)
[2021-08-22 12:11] LABS: AMORPHOUS SEDIMENT,UR PRESENT /HPF
[2021-08-22 12:29] LABS: ALBUMIN 2.4 g/dL (3.4-5.0); ALBUMIN/GLOBULIN RATIO 0.6 (1.0-1.7); CALCIUM 8.4 mg/dL (8.5-10.1); CREATININE 0.7 mg/dL (0.7-1.3); GFR 113.9; POTASSIUM 3.7 mmol/L (3.5-5.1); TOTAL BILIRUBIN 0.9 mg/dL (0.2-1.0); TOTAL PROTEIN 6.4 g/dL (6.4-8.2)
[2021-08-22] MEDS: VANCOMYCIN PER PHARMACY MC PRN (12:43)
--- NOTE | 2021-08-22 12:43 | NUR ---
Pharmacy Vancomycin Dosing Note S:Consulted to monitor and dose vancomycin started 08/22/21. O:JAYY JEFFRIES is a 65 year old M with Sepsis. Height: 6 feet, 2 inches Weight: 96.9 kg [place] Body Weight: 82.20 Adjusted Body Weight: 88.08 Dosing Weight: Actual Other Antibiotics: zosyn 4.5 gm q6hrs LABS: Last BUN: 16 Last Creatinine: 0.7 Creatinine Clearance: > 100 mL/min Last WBC: 12.2 Last Procalcitonin: -- Tmax (past 24 hours): 101.4 Microbiology: 08/22 blood cx pending I/O: 500 / 800 Last dose given 08/22/21 at 1234 Vancomycin Dosing: Loading Dose: 2000 mg x1 Dosing Weight: Actual Target Trough: 15-20 A: Based on: patient's age, weight and renal function. P: 1. Begin Vancomycin 1000 mg IV q8h after initial loading dose. 2. Follow up Trough level on 08/23/21 at 1130 3. Pharmacy will continue to monitor, follow and adjust therapy as needed. VLADIMIR ADIAR RPH, 08/22/21 [id number]
[2021-08-22] MEDS ORDERED: VANCOMYCIN 2 GM in IV NORMAL SALINE 500ML BAG 500 ML IV ONE (13:00)
[2021-08-22] MEDS: IV DEXTROSE 5%-LACT RINGERS 1,000 ML IV SCH (13:34)
--- NOTE | 2021-08-22 14:59 | PN ---
DATE: 08/22/2021 SUBJECTIVE: The patient was successfully extubated yesterday. He is now on Ventimask, maintaining his oxygen saturation at 96% on FiO2 of 50%. He has been nonstop talking according to nursing staff since yesterday. PHYSICAL EXAMINATION: GENERAL: When I examined him, he was pale, not jaundiced or cyanosed, no lymphadenopathy, no thyromegaly, no jugular venous distention. No limb edema. VITAL SIGNS: His heart rate was 99, blood pressure was 160/95, temperature was 99.4, respiratory rate was 32 and oxygen saturation was 91% on FiO2 of 50% by Venturi mask. HEAD, EYES, EARS, NOSE, AND THROAT: Normocephalic, atraumatic. NECK: Supple. HEART: Showed normal first and second heart sounds. No gallop, rub or murmur. CHEST: Showed central trachea, equal bilateral chest expansion, air entry, vesicular breath sounds with bilateral basal crepitation. I could not appreciate any rhonchi. ABDOMEN: Distended, soft, nontender. NEUROLOGIC: He is awake, alert, but confused. All his cranial nerves are intact. He moves extremities without difficulty. His intake is 1069, output was 1655. LABORATORY DATA: As of yesterday showed a white cell count 9200, hemoglobin 14, hematocrit 41, MCV 89 and platelet count 453,000. Serum sodium 143, potassium 4.2, chloride 102, bicarbonate 27, anion gap of 14, BUN 16, creatinine 0.7. Estimated GFR was 113 mL per minute. His calcium was 85. ASSESSMENT: 1. Acute hypoxic respiratory failure. 2. COVID-19 pneumonia. 3. Presumed superimposed community-acquired pneumonia. 4. Possible underlying pulmonary fibrosis. 5. Chronic obstructive pulmonary disease. 6. Severe protein-calorie malnutrition. PLAN: To continue with oxygen supplementation. Continue with DVT and GI prophylaxis. The patient is extremely talkative and confused. He has Haldol 5 mg IV every 8 hours. We will obviously continue with physical, occupational and speech therapy. ALIZA/JAN/MANUELA DR: Vannessa TID: [id number]
[2021-08-22] MEDS: ACETAMINOPHEN 650 MG SUPP.RECT. PR PRN ×2 (16:09→23:32)
--- NOTE | 2021-08-22 17:22 | NUR ---
Wound Care Wound Type/Assessment: Follow up wound assessment for L 2nd toe and L plantar foot. L plantar toe is dark, dry, stable eschar. L plantar foot intact, blood-filled blister, ST III pressure injury. No other wounds present on head to toe inspection. Pictured and measured. present at bedside. Treatment Recommendations/Plan: L 2nd toe/plantar foot: [place] with betadine daily and cover with a foam dressing for protection. Education provided: Educated to wear offloading heel medics boots and turn often to prevent new skin breakdown. Offloading surface/device: ICU bed, heel medics, purple wedge turn Left Recommended Referrals/Tests: NA Discharge Recommendations for dressings: As above
[2021-08-22] MEDS: VANCOMYCIN 1 GM in IV NORMAL SALINE 250ML 250 ML IV SCH (20:53)
[2021-08-23] VITALS (27 sets, daily range): BP systolic 87–187; BP diastolic 63–98
[2021-08-23] MEDS: ACETAMINOPHEN 650 MG SUPP.RECT. PR PRN (00:22)
[2021-08-23] MEDS: IV DEXTROSE 5%-LACT RINGERS 1,000 ML IV SCH ×2 (01:15→13:45)
[2021-08-23] MEDS: VANCOMYCIN 1 GM in IV NORMAL SALINE 250ML 250 ML IV SCH ×3 (03:33→19:57)
[2021-08-23] MEDS: HALOPERIDOL LACTATE 5 MG/ML VIAL. IVP SCH ×3 (05:38→22:00)
[2021-08-23] MEDS: PIPERACILLIN/TAZOBACTAM 4.5 GM in IV DEXTROSE 5% 100ML 100 ML IV SCH ×3 (05:38→19:10)
[2021-08-23] MEDS: HEPARIN for SUB-Q USE 5,000 UNIT/ML VIAL. SQ SCH ×2 (05:39→14:00)
[2021-08-23 07:11] LABS: CREATININE 0.8 mg/dL (0.7-1.3); GFR 97.6
[2021-08-23 08:02] LABS: BASE EXCESS ABG 3 mmol/L (-3-3); HCO3 ABG 26 mmol/L (21-28); PCO2 ABG 37 mmHg (35-46); PO2 ABG 175 mmHg (65-108); SAT O2 ABG 99 % (92-99)
--- NOTE | 2021-08-23 08:04 | RAD ---
EXAMINATION: Chest radiograph. VIEWS: 1 COMPARISON: 08/22/2021 INDICATION:65 years, Male, increased O2 requirement. FINDINGS: Normal cardiomediastinal silhouette. Stable to slightly worsening diffuse bilateral pulmonary infiltr ates. Stable trace bilateral pleural effusions. No pneumothorax. No acute osseous process. IMPRESSION: Stable to slightly worsening diffuse bilateral pulmonary infiltrates. Electronically signed by: Luis Matute MD (08/23/2021 8:02 AM) [id number]
[2021-08-23] MEDS: FAMOTIDINE 20 MG/2 ML VIAL IVP SCH ×2 (09:07→21:01)
--- NOTE | 2021-08-23 10:39 | PDOC ---
PULMONARY PROGRESS NOTES DATE: 08/23/21 TIME: 10:39 Subjective Patient knows that he is in the hospital Not short of breath Was not drinking alcohol on a regular basis prior to admission Patient at times is delirious and confused patient did well yesterday extubated after spontaneous trial Currently somewhat confused Quit tobacco 15 years ago Does not wear oxygen at home Vitals Vital Signs Date Time Temp Pulse Resp B/P (MAP) Pulse Ox O2 Delivery O2 Flow Rate FiO2 08/23/21 10:00 71 30 160/76 (104) 98 BiPAP/CPAP 08/23/21 08:00 100.1 100.1 Lungs: Crackles Cardiovascular: S1, S2 Abdomen: Soft, Non-tender Extremities: No Edema Skin: Warm Labs Laboratory Tests Test 08/22/21 11:35 08/22/21 11:45 08/23/21 04:40 08/23/21 08:00 Urine Collection Type Unknown Urine Color Katiana Urine Clarity Hazy Urine pH 6.0 (<5.0-8.0) Urine Specific [place] >=1.030 (1.000-1.030) Urine Protein 30 mg/dL (NEG-TRACE) Urine Glucose (UA) Negative mg/dL (NEG) Urine Ketones (Stick) >=80 mg/dL (NEG) Urine Blood Negative (NEG) Urine Nitrite Negative (NEG) Urine Bilirubin Moderate (NEG) Urine Urobilinogen Dipstick 1.0 mg/dL (0.2 mg/dL) Urine Leukocyte Esterase Negative (NEG) Urine RBC 1-2 /HPF (0-2) Urine WBC 1-4 /HPF (0-4) Urine Squamous Epithelial Cells Few /LPF Urine Amorphous Sediment Present /HPF Urine Bacteria 0 /HPF (0-FEW) Urine Mucus Marked /LPF White Blood Count 12.2 x10^3/uL (4.0-11.0) Red Blood Count 4.32 x10^6/uL (4.30-5.70) Hemoglobin 12.6 g/dL (13.0-17.5) Hematocrit 37.9 % (39.0-53.0) Mean Corpuscular Volume 88 fL (79-100) Mean Corpuscular Hemoglobin 29 pg (25-35) Mean Corpuscular Hemoglobin Concent 33 g/dL (31-37) Red Cell Distribution Width 14.5 % (11.5-14.5) Platelet Count 449 x10^3/uL (140-400) Neutrophils (%) (Auto) 87 % (31-73) Lymphocytes (%) (Auto) 7 % (24-48) Monocytes (%) (Auto) 6 % (0-9) Eosinophils (%) (Auto) 0 % (0-3) Basophils (%) (Auto) 1 % (0-3) Neutrophils # (Auto) 10.6 x10^3/uL (1.8-7.7) Lymphocytes # (Auto) 0.8 x10^3/uL (1.0-4.8) Monocytes # (Auto) 0.7 x10^3/uL (0.0-1.1) Eosinophils # (Auto) 0.0 x10^3/uL (0.0-0.7) Basophils # (Auto) 0.1 x10^3/uL (0.0-0.2) Sodium Level 145 mmol/L (136-145) Potassium Level 3.7 mmol/L (3.5-5.1) Chloride Level 107 mmol/L (98-107) Carbon Dioxide Level 25 mmol/L (21-32) Anion Gap 13 (6-14) Blood Urea Nitrogen 24 mg/dL (8-26) Creatinine 0.7 mg/dL (0.7-1.3) 0.8 mg/dL (0.7-1.3) Estimated GFR (Cockcroft-Gault) 113.9 97.6 BUN/Creatinine Ratio 34 (6-20) Glucose Level 112 mg/dL (70-99) Lactic Acid Level 1.0 mmol/L (0.4-2.0) Calcium Level 8.4 mg/dL (8.5-10.1) Total Bilirubin 0.9 mg/dL (0.2-1.0) Aspartate Amino Transf (AST/SGOT) 48 U/L (15-37) Alanine Aminotransferase (ALT/SGPT) 49 U/L (16-63) Alkaline Phosphatase 132 U/L (46-116) Total Protein 6.4 g/dL (6.4-8.2) Albumin 2.4 g/dL (3.4-5.0) Albumin/Globulin Ratio 0.6 (1.0-1.7) Procalcitonin 0.17 ng/mL (0.00-0.10) O2 Saturation 99 % (92-99) Arterial Blood pH 7.48 (7.35-7.45) Arterial Blood pCO2 at Patient Temp 37 mmHg (35-46) Arterial Blood pO2 at Patient Temp 175 mmHg (65-108) Arterial Blood HCO3 26 mmol/L (21-28) Arterial Blood Base Excess 3 mmol/L (-3-3) FiO2 100% bipap Laboratory Tests Test 08/22/21 11:35 08/22/21 11:45 08/23/21 04:40 08/23/21 08:00 Urine Collection Type Unknown Urine Color Katiana Urine Clarity Hazy Urine pH 6.0 (<5.0-8.0) Urine Specific [place] >=1.030 (1.000-1.030) Urine Protein 30 mg/dL (NEG-TRACE) Urine Glucose (UA) Negative mg/dL (NEG) Urine Ketones (Stick) >=80 mg/dL (NEG) Urine Blood Negative (NEG) Urine Nitrite Negative (NEG) Urine Bilirubin Moderate (NEG) Urine Urobilinogen Dipstick 1.0 mg/dL (0.2 mg/dL) Urine Leukocyte Esterase Negative (NEG) Urine RBC 1-2 /HPF (0-2) Urine WBC 1-4 /HPF (0-4) Urine Squamous Epithelial Cells Few /LPF Urine Amorphous Sediment Present /HPF Urine Bacteria 0 /HPF (0-FEW) Urine Mucus Marked /LPF White Blood Count 12.2 x10^3/uL (4.0-11.0) Red Blood Count 4.32 x10^6/uL (4.30-5.70) Hemoglobin 12.6 g/dL (13.0-17.5) Hematocrit 37.9 % (39.0-53.0) Mean Corpuscular Volume 88 fL (79-100) Mean Corpuscular Hemoglobin 29 pg (25-35) Mean Corpuscular Hemoglobin Concent 33 g/dL (31-37) Red Cell Distribution Width 14.5 % (11.5-14.5) Platelet Count 449 x10^3/uL (140-400) Neutrophils (%) (Auto) 87 % (31-73) Lymphocytes (%) (Auto) 7 % (24-48) Monocytes (%) (Auto) 6 % (0-9) Eosinophils (%) (Auto) 0 % (0-3) Basophils (%) (Auto) 1 % (0-3) Neutrophils # (Auto) 10.6 x10^3/uL (1.8-7.7) Lymphocytes # (Auto) 0.8 x10^3/uL (1.0-4.8) Monocytes # (Auto) 0.7 x10^3/uL (0.0-1.1) Eosinophils # (Auto) 0.0 x10^3/uL (0.0-0.7) Basophils # (Auto) 0.1 x10^3/uL (0.0-0.2) Sodium Level 145 mmol/L (136-145) Potassium Level 3.7 mmol/L (3.5-5.1) Chloride Level 107 mmol/L (98-107) Carbon Dioxide Level 25 mmol/L (21-32) Anion Gap 13 (6-14) Blood Urea Nitrogen 24 mg/dL (8-26) Creatinine 0.7 mg/dL (0.7-1.3) 0.8 mg/dL (0.7-1.3) Estimated GFR (Cockcroft-Gault) 113.9 97.6 BUN/Creatinine Ratio 34 (6-20) Glucose Level 112 mg/dL (70-99) Lactic Acid Level 1.0 mmol/L (0.4-2.0) Calcium Level 8.4 mg/dL (8.5-10.1) Total Bilirubin 0.9 mg/dL (0.2-1.0) Aspartate Amino Transf (AST/SGOT) 48 U/L (15-37) Alanine Aminotransferase (ALT/SGPT) 49 U/L (16-63) Alkaline Phosphatase 132 U/L (46-116) Total Protein 6.4 g/dL (6.4-8.2) Albumin 2.4 g/dL (3.4-5.0) Albumin/Globulin Ratio 0.6 (1.0-1.7) Procalcitonin 0.17 ng/mL (0.00-0.10) O2 Saturation 99 % (92-99) Arterial Blood pH 7.48 (7.35-7.45) Arterial Blood pCO2 at Patient Temp 37 mmHg (35-46) Arterial Blood pO2 at Patient Temp 175 mmHg (65-108) Arterial Blood HCO3 26 mmol/L (21-28) Arterial Blood Base Excess 3 mmol/L (-3-3) FiO2 100% bipap Impression . 1. Acute hypoxic respiratory failure secondary to COVID-19 pneumonia, acute respiratory distress syndrome and possible underlying fibrosis and emphysema., Extubated 08/20, reintubated 08/[address] chest with diffuse pulmonary infiltrates with some ground glass infiltrates as well as evidence of the emphysema. May have a component of underlying fibrosis as well. No pulmonary embolism seen. From admission early July 3. Hyponatremia. 4. Suspected underlying severe chronic obstructive pulmonary disease. 5. COVID-19 viral pneumonia. 6. Abnormal chest x-ray with bilateral diffuse infiltrates related to COVID-19 viral pneumonia. 7. Patient reintubated 08/23, CODE BLUE see below 8. Abnormal x-ray from 08/15, possible ARDS, possible pulmonary edema, possible aspiration CODE REPORT CODE REPORT This physician respond to CODE BLUE up in ICU. Per nursing report, patient was admitted to the hospital due to COVID-19 infection. Patient was found unresponsive, he was in V. tach, CODE BLUE was activated. Patient was resuscitated per ACLS protocol. Patient was shocked 1 time. He was converted to sinus rhythm, he was still not able to protect his airway, agonal breathing, therefore decision was made to intubate the patient. Patient was intubated by this physician via rapid sequence the patient. Patient was given etomidate 20 mg, 100 mg of succinylcholine IV bolus. Patient was intubated using glide scope assist, ET tube #7 and half. ET tube was secured 24 at the lip, positive color changes on CO2 detector. Post intubation chest x-ray show ET tube in the right place. Plan . Updated 08/23 Patient coded initially saturations started to drop, heart rate started to drop then he went into V. fib, ACLS protocol followed see CODE BLUE sheet Chest x-ray reviewed, will now cover for possible aspiration, pulmonary edema, ARDS Repeat PCR testing for Covid Discussed with and daughter at the bedside Repeat arterial blood gas Echocardiogram ESR Total cumulative critical care time of 30 minutes Updated 08/22 Discussed with ROLAND Khan scheduled, incentive spirometry, speech eval Possible BiPAP Extubated 08/20 Discussed with significant other at the bedside Continue current support Patient does not wear oxygen at home Patient quit tobacco 15 years ago, quit alcohol many years ago Nutritional support Finished course of steroids and antibiotics REBECCA DUGGAN MD Aug 23, 2021 10:39
--- NOTE | 2021-08-23 11:11 | PN ---
DATE: 08/23/2021 SUBJECTIVE: The patient is resting, propped up extremely tachypneic, had an episode of marked desaturation with oxygen saturation dropped down to 70% despite being on BiPAP machine. PHYSICAL EXAMINATION: GENERAL: When I saw him, there was no pallor, jaundice, cyanosis or thyromegaly. No jugular venous distention. No limb edema. VITAL SIGNS: His heart rate was 71, blood pressure was 160/76, temperature was 100.1, respiratory rate was 30 and oxygen saturation was 98% on FiO2 of 70%. HEAD, EYES, EARS, NOSE, AND THROAT: Normocephalic, atraumatic. NECK: Supple. HEART: Showed normal first and second heart sounds. No gallop or murmur. CHEST: Shows central trachea, equal bilateral chest expansion, air entry, vesicular breath sounds with bilateral basal crepitation. I could not appreciate any rhonchi. ABDOMEN: Distended, soft, nontender. NEUROLOGIC: He is awake, alert, seemed to be more lucid today. All his cranial nerves seem to be grossly intact. He moves all extremities without difficulty. His intake over the last 24 hours was 1550, output was 800. LABORATORY DATA: As of yesterday, his white cell count was 12,200, hemoglobin 12.6, hematocrit 37.9, MCV 88 and platelet count of 449,000. His chemistry as of yesterday showed his serum sodium was 145, potassium 3.7, chloride 107, bicarbonate 25, anion gap of 13, BUN 24, creatinine 0.7. Estimated GFR was 113 mL per minute. His glucose 112. Lactic acid was 1, calcium was 8.4. Total bilirubin, AST, ALT, alkaline phosphatase slightly elevated. His total protein was 6.7, albumin was 2.4 and his procalcitonin was 0.17. His blood gases done this morning showed a pH of 7.48, pCO2 of 37, pO2 of 175, bicarbonate 26, oxygen saturation was 99% on FiO2 of 100% on BiPAP machine. His chest x-ray this morning showed that the patient has normal cardiomediastinal silhouette stable to slightly worsening, diffuse bilateral pulmonary infiltrate, stable trace bilateral pleural effusion; no pneumothorax, no acute osseous abnormality. His blood culture has grown gram-positive cocci in clusters in 1 out of 4 bottles anaerobic. ASSESSMENT: 1. Acute hypoxic respiratory failure. The patient is now on BiPAP machine, maintaining his oxygen saturation at 98% on FiO2 of 70%, definitely more tachypneic, afebrile. His chest x-ray showed some worsening. 2. COVID-19 pneumonia. He is off isolation now. 3. Presumed superimposed community-acquired pneumonia, treated with IV antibiotic. 4. Possible underlying pulmonary fibrosis. 5. Chronic obstructive pulmonary disease exacerbation. 6. Severe protein-calorie malnutrition. PLAN: To continue with BiPAP machine. Continue with DVT and GI prophylaxis. Continue with IV antibiotic in the form of vancomycin and Zosyn as his blood culture has grown gram-positive cocci in clusters, 1/4 bottles. Continue with Haldol for restlessness and agitation. I believe this patient probably will require tracheostomy tube placement, he will be intubated again and once that was done, the patient can be transferred to [facility]. ALIZA/JAN DR: Vannessa TID: [id number]
[2021-08-23] MEDS ORDERED: SUCCINYLCHOLINE 200 MG/10 ML VIAL. ONE (11:25)
[2021-08-23] MEDS ORDERED: ETOMIDATE 20 MG/10 ML VIAL. IV ONE ×2 (11:25→12:15)
[2021-08-23] MEDS: MIDAZOLAM 100mg/100ml NS BAG 100 ML IV PRN ×2 (11:30→21:42)
[2021-08-23] MEDS: fentaNYL HIGH DOSE PCA 55 ML IV PRN (11:35)
[2021-08-23 11:43] LABS: BASO # 0.1 x10^3/uL (0.0-0.2); BASO % 1 % (0-3); EOS # 0.2 x10^3/uL (0.0-0.7); EOS % 1 % (0-3); HEMATOCRIT 38.9 % (39.0-53.0); HEMOGLOBIN 12.1 g/dL (13.0-17.5); LYMPH # 4.9 x10^3/uL (1.0-4.8); LYMPH % 22 % (24-48); MEAN CORPUSCULAR HEMOGLOBIN 28 pg (25-35); MEAN CORPUSCULAR HGB CONC 31 g/dL (31-37); MEAN CORPUSCULAR VOLUME 91 fL (79-100); MONO # 1.1 x10^3/uL (0.0-1.1); MONO % 5 % (0-9); NEUT # 16.4 x10^3/uL (1.8-7.7); NEUT % 72 % (31-73); PLATELET COUNT 592 x10^3/uL (140-400); RED BLOOD COUNT 4.26 x10^6/uL (4.30-5.70); RED CELL DISTRIBUTION WIDTH 14.7 % (11.5-14.5); WHITE BLOOD COUNT 22.7 x10^3/uL (4.0-11.0)
[2021-08-23 11:57] LABS: CALCIUM 7.8 mg/dL (8.5-10.1); GFR 75.5
[2021-08-23 12:03] LABS: ALBUMIN 2.2 g/dL (3.4-5.0); ALBUMIN/GLOBULIN RATIO 0.6 (1.0-1.7); MAGNESIUM 2.2 mg/dL (1.8-2.4); TOTAL BILIRUBIN 0.9 mg/dL (0.2-1.0); TOTAL PROTEIN 6.2 g/dL (6.4-8.2)
[2021-08-23 12:05] LABS: VANC TR 13.9 mcg/mL (10.0-20.0)
--- NOTE | 2021-08-23 12:09 | RAD ---
EXAM: Chest, single view. HISTORY: Intubation. Nasogastric tube placement. COMPARISON: 08/23/2021 FINDINGS: A frontal view of the chest is obtained. There is an endotracheal tube within the mid trach ea. There is a nasogastric tube within the proximal stomach with the side-port likely at the gastroes ophageal junction. There is stable diffuse infiltrate and small pleural effusions. There is a stable cardiac silhouette. IMPRESSION: 1. Endotracheal tube within the mid trachea and nasogastric tube within the proximal stomach. The larisa ogastric tube side-port is likely at the gastroesophageal junction. 2. Stable diffuse infiltrate and small pleural effusions. Electronically signed by: Ellen Castro MD (08/23/2021 12:07 PM) [id number]
[2021-08-23] MEDS ORDERED: SUCCINYLCHOLINE 200 MG/10 ML VIAL. IV ONE (12:15)
--- NOTE | 2021-08-23 12:16 | NUR ---
At 0730 patient SPO2 started trending down into the 80's. Went to patients bedside. Patient was alert and responsive. Patients color was found to be dusky and appeared blue and purple around the lips and cheeks. Patients SPO2 quickly dropping at this point and Bipap FiO2 was increased from 50% to 100% patients SPO2 was in the 60's at this point. Patient was in a NSR to bradycardic at this time. Patient coughed very weak and his SPO2 increased to 100%. Began titrating O2 down gradually as patients blood gas looked ok and PO2 was high on gas. Patient was titrated down to 70% FIo2. 1103 Patient's family is at bedside and patient began staring off according to family. Patient SPO2 began to drop quickly and patient went into vfib on the monitor. Patient still had a pulse at this time and was initiating his own breaths. 1105 Patient lost pulse and code blue was initiated. See code blue sheet for full report.
[2021-08-23] MEDS: VECURONIUM BOLUS 10 MG VIAL. IV PRN ×2 (12:21→18:29)
[2021-08-23] MEDS: VANCOMYCIN PER PHARMACY MC PRN (12:21)
--- NOTE | 2021-08-23 12:22 | NUR ---
Pharmacy Vancomycin Dosing Note S: Consulted to monitor and dose vancomycin started 08/22/21. O: JAYY JEFFRIES is a 65 year old M with Sepsis. Other Antibiotics: zosyn 4.5 gm q6hrs LABS: Last BUN: 21 Last Creatinine: 1 Creatinine Clearance: > 100 mL/min Last WBC: 22.7 Last Procalcitonin: 0.17 Tmax (past 24 hours): 100.9 Microbiology: 08/22 blood cx (1/4 bottles) gram positive cocci in clusters I/O: 4401/7064 Drug Levels: Last Trough level: 13.9 on 08/23/21 at 1130 Last dose given 08/23/21 at 0333 Vancomycin Dosing: Dosing Weight: Actual Target Trough: 15-20 A: Based on: patient's trough level and renal function. P: 1. Continue Vancomycin 1000 mg IV q8h. 2. Follow up Trough level as needed. 3. Pharmacy will continue to monitor, follow and adjust therapy as needed. VLADIMIR ADAIR RPH, 08/23/21 [id number]
[2021-08-23] MEDS ORDERED: ATROPINE 1 MG/10 ML DISP.SYRINGE. ONE (12:32)
--- NOTE | 2021-08-23 12:32 | PDOC5 ---
CODE REPORT CODE REPORT This physician respond to CODE BLUE up in ICU. Per nursing report, patient was admitted to the hospital due to COVID-19 infection. Patient was found unresponsive, he was in V. tach, CODE BLUE was activated. Patient was resuscitated per ACLS protocol. Patient was shocked 1 time. He was converted to sinus rhythm, he was still not able to protect his airway, agonal breathing, therefore decision was made to intubate the patient. Patient was intubated by this physician via rapid sequence the patient. Patient was given etomidate 20 mg, 100 mg of succinylcholine IV bolus. Patient was intubated using glide scope assist, ET tube #7 and half. ET tube was secured 24 at the lip, positive color changes on CO2 detector. Post intubation chest x-ray show ET tube in the right place. DORETHA COOK DO Aug 23, 2021 12:32
[2021-08-23] MEDS ORDERED: FUROSEMIDE 40 MG/4 ML VIAL. IVP ONE (12:45)
[2021-08-23 13:22] LABS: BASE EXCESS ABG 0 mmol/L (-3-3); HCO3 ABG 31 mmol/L (21-28); PO2 ABG 134 mmHg (65-108); SAT O2 ABG 98 % (92-99)
[2021-08-23 13:23] LABS: PCO2 ABG 85 mmHg (35-46)
[2021-08-23] MEDS: methylPREDNISolone SOD SUCC PF 125 MG/2 ML VIAL. IV SCH ×2 (14:00→22:05)
--- NOTE | 2021-08-23 15:09 | NUR ---
SS following up with discharge planning. SS reviewed pt chart and discussed with pt RN. Pt intubated this morning and is currently on the vent at 80%. COVID19 recovered. Pt on Versed and Fentanyl. Pt on IV Vancomycin, IV Zosyn, and IV Solu-Medrol. Not stable. SS will continue to follow for discharge planning.
[2021-08-23] MEDS ORDERED: DIGOXIN IV 500 MCG/2 ML AMPUL. IV ONE (15:30)
--- NOTE | 2021-08-23 15:35 | PDOC2 ---
ISIS GARCIA RESEARCH GEOLOGIST 08/23/21 1535: CARDIAC CONSULT DATE OF CONSULT Date of Consult DATE: 08/23/21 TIME: 15:12 REASON FOR CONSULT Reason for Consult: tachycardia, hypotension REFERRING PHYSICIAN Referring Physician: Antolin SOURCE Source: Chart review HISTORY OF PRESENT ILLNESS HISTORY OF PRESENT ILLNESS This is a 65 yo male admitted initially at [facility] ED on 07/29/2021 and noted with hyponatremia. He also was complaining of SOA at that time with nausea and vomiting with anosmia and ageusia. It was then confirmed that he has covid-19. He left AMA at that time time only to come back on 07/31/2021 since he could not breath. He was not progressing and transferred PMC. Further evaluation revealed severe COPD, covid-19 pneumonia, ARDS requiring intubation. He was then extubated on 08/20 and reintubated today after code blue noted with VT shock delivered x1. I evaluated him and presently intubated and in AFIB RVR PAST MEDICAL HISTORY Pulmonary: COPD, Pneumonia PAST SURGICAL HISTORY Past Surgical History: No pertinent history FAMILY HISTORY Family History: Family History Unknown SOCIAL HISTORY Smoke: Quit (heavy use) ALCOHOL: other (hx of heavy ETOH use) CURRENT MEDICATIONS CURRENT MEDICATIONS Current Medications Medications (Trade) Dose Ordered Sig/Kenneth Route PRN Reason Start Time Stop Time Status Last Admin Dose Admin Vancomycin HCl 1 gm/Sodium Chloride 250 ml @ 250 mls/hr Q8H IV 08/22/21 20:00 08/23/21 13:20 Etomidate (Amidate) 20 mg 1X ONCE IV 08/23/21 12:15 08/23/21 12:16 DC 08/23/21 12:21 Succinylcholine Chloride (Anectine) 100 mg 1X ONCE IV 08/23/21 12:15 08/23/21 12:16 DC 08/23/21 12:21 Furosemide (Lasix) 40 mg 1X ONCE IVP 08/23/21 12:45 08/23/21 12:56 DC 08/23/21 13:19 ALLERGIES ALLERGIES: Coded Allergies: No Known Drug Allergies (Unverified , 07/31/21) ROS Review of System unobtainable, intubated PHYSICAL EXAM General: Other (sedated) HEENT: Atraumatic, Mucous membr. moist/pink Lungs: Other (intubated with MC, diminished throughout) Heart: Other (AFIB RVRl distatn heart sounds) Abdomen: Soft Extremities: No cyanosis, No edema Skin: No rashes Psych/Mental Status: Other (sedated) MUSCULOSKELETAL: Osteoarthritic changes both hands VITALS/I&O VITALS/I&O: Vital Signs Date Time Temp Pulse Resp B/P (MAP) Pulse Ox O2 Delivery O2 Flow Rate FiO2 08/23/21 15:00 174 23 187/70 (109) 97 BiPAP/CPAP 08/23/21 12:05 4.0 08/23/21 12:00 99.8 99.8 I & O 08/22/21 08/22/21 08/23/21 15:00 23:00 07:00 Intake Total 882 ml 1575 ml Output Total 150 ml 600 ml 925 ml Balance -150 ml 282 ml 650 ml LABS Lab: Laboratory Tests Test 08/23/21 04:40 08/23/21 08:00 08/23/21 11:30 08/23/21 12:45 Creatinine 0.8 mg/dL (0.7-1.3) 1.0 mg/dL (0.7-1.3) Estimated GFR (Cockcroft-Gault) 97.6 75.5 O2 Saturation 99 % (92-99) Arterial Blood pH 7.48 (7.35-7.45) H Arterial Blood pCO2 at Patient Temp 37 mmHg (35-46) Arterial Blood pO2 at Patient Temp 175 mmHg (65-108) H Arterial Blood HCO3 26 mmol/L (21-28) Arterial Blood Base Excess 3 mmol/L (-3-3) FiO2 100% bipap White Blood Count 22.7 x10^3/uL (4.0-11.0) H Red Blood Count 4.26 x10^6/uL (4.30-5.70) L Hemoglobin 12.1 g/dL (13.0-17.5) L Hematocrit 38.9 % (39.0-53.0) L Mean Corpuscular Volume 91 fL (79-100) Mean Corpuscular Hemoglobin 28 pg (25-35) Mean Corpuscular Hemoglobin Concent 31 g/dL (31-37) Red Cell Distribution Width 14.7 % (11.5-14.5) H Platelet Count 592 x10^3/uL (140-400) H Neutrophils (%) (Auto) 72 % (31-73) Lymphocytes (%) (Auto) 22 % (24-48) L Monocytes (%) (Auto) 5 % (0-9) Eosinophils (%) (Auto) 1 % (0-3) Basophils (%) (Auto) 1 % (0-3) Neutrophils # (Auto) 16.4 x10^3/uL (1.8-7.7) H Lymphocytes # (Auto) 4.9 x10^3/uL (1.0-4.8) H Monocytes # (Auto) 1.1 x10^3/uL (0.0-1.1) Eosinophils # (Auto) 0.2 x10^3/uL (0.0-0.7) Basophils # (Auto) 0.1 x10^3/uL (0.0-0.2) Erythrocyte Sedimentation Rate 68 (0-15) H Sodium Level 151 mmol/L (136-145) H Potassium Level 4.0 mmol/L (3.5-5.1) Chloride Level 111 mmol/L (98-107) H Carbon Dioxide Level 29 mmol/L (21-32) Anion Gap 11 (6-14) Blood Urea Nitrogen 21 mg/dL (8-26) BUN/Creatinine Ratio 21 (6-20) H Glucose Level 191 mg/dL (70-99) H Calcium Level 7.8 mg/dL (8.5-10.1) L Magnesium Level 2.2 mg/dL (1.8-2.4) Total Bilirubin 0.9 mg/dL (0.2-1.0) Aspartate Amino Transferase (AST) 42 U/L (15-37) H Alanine Aminotransferase (ALT) 46 U/L (16-63) Alkaline Phosphatase 133 U/L (46-116) H Total Protein 6.2 g/dL (6.4-8.2) L Albumin 2.2 g/dL (3.4-5.0) L Albumin/Globulin Ratio 0.6 (1.0-1.7) L Vancomycin Level Trough 13.9 mcg/mL (10.0-20.0) Vancomycin Last Dose Date 08/23/21 Vancomycin Last Dose Time 0400 Troponin I High Sensitivity 850 ng/L (4-75) H Test 08/23/21 12:55 O2 Saturation 98 % (92-99) Arterial Blood pH 7.18 (7.35-7.45) *L Arterial Blood pCO2 at Patient Temp 85 mmHg (35-46) *H Arterial Blood pO2 at Patient Temp 134 mmHg (65-108) H Arterial Blood HCO3 31 mmol/L (21-28) H Arterial Blood Base Excess 0 mmol/L (-3-3) Laboratory Tests 08/23/21 11:30 Laboratory Tests 08/23/21 04:40 08/23/21 11:30 ASSESSMENT/PLAN ASSESSMENT/PLAN 1. S/P code blue: cardiac arrest likely from hypoxia associated covid-19 PNA/ARDS s/p reintubation. Could not completely rule out PE. Noted with VT shock x1. Strip reviewed noted with torsades. approximately <3 min to ROSC 2. Acute on chronic respiratory failure with ARDS/PNA/COPD 3. AECOPD 4. Covid-19 Pneumonia: noted+ 07/29/2021 5. Hypernatremia: was hyponatremic upon admission 6. AFIB RVR 7. Inferior STEMI: EKG obtained upon cardiac evaluation. No prior hx of CAD 8. Shock: multifactorial Recommendations 1. Emergent LHC, discussed with lina Callahan and will proceed. 2. ASA 3. stat TTE 4. Perform synchronized CVN x2 with amiodarone drip. AFIB persistent at 120s. Digoxin was also given earlier. 5. Will start on heparin drip post LHC 6. Follow up labs pending, CMP, INR, Mg 7. Will start on pressors per BP trend. IVF. TEDDY ANGLIN MD 08/23/21 6753: CARDIAC CONSULT ASSESSMENT/PLAN ASSESSMENT/PLAN Patient seen and examined. Agree with above nurse practitioner note. 65-year-old critically ill male has been in the hospital for almost 3 weeks for coronavirus pneumonia. He was recently extubated but unfortunately had to be reintubated this morning due to persistent hypoxic respiratory failure. Earlier today he had a cardiac arrest and was appropriately resuscitated. Cardiology was asked to evaluate him due to acute changes in rhythm and elevated troponin. Upon initial EKG evaluation did reveal that he had a ST elevation ND. After discussion with the patient's next of kin he was emergently taken to the catheterization laboratory. 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 There was moderate 50% proximal and 90% mid stenosis appeared to have significant thrombotic burden with ectasia and dilation of the coronary artery. The patient required inotropic support and was also initiated on intra-aortic balloon pump therapy. Multiple attempts were made to traverse the distal thrombotic occlusions and due to the significantly distal nature of these thrombi balloon angioplasty was deferred out of concern for perforation. The more proximal stenosis was not intervened upon due to risk of significant embolic occlusions. Therefore, patient was treated with intravenous anticoagulant and antiplatelet therapy. Discussion was held with the patient's family regarding goals of care and prognosis. Transferred to the ICU and continue to monitor. ISIS GARCIA APRN Aug 23, 2021 15:35 TEDDY ANGLIN MD Aug 23, 2021 18:23
--- NOTE | 2021-08-23 15:50 | EKG ---
[facility] [address] [place] [address] Test Date: 2021-08-23 Test Time: 15:47:15 Pat Name: JAYY JEFFRIES Department: Room: 109 1 Gender: M Non Destructive Testing Supervisor: : 1955 Requested By: TEDDY ANGLIN Order Number: [id number] Reading MD: Teddy Anglin MD Measurements Intervals [facility] Rate: 162 P: NE: QRS: 58 QRSD: 80 T: 83 QT: 286 QTc: 477 Interpretive Statements INFERIOR STEMI PROBABLE ATRIAL FIBRILLATION Electronically Signed On 08-27-2021 8:34:52 SLOOP CAPTAIN by Teddy Anglin MD
--- NOTE | 2021-08-23 15:54 | RAD ---
EXAM: Chest, single view. HISTORY: EKG changes. COMPARISON: 08/23/2021 FINDINGS: Frontal views of the chest are obtained. There is a right PICC with the tip overlying the e xpected location of the superior cavoatrial junction. There is an endotracheal tube within the trache a. There is a nasogastric tube within the proximal stomach. There is an additional catheter overlying the thoracic spine to terminate at T5. There is diffuse infiltrate. There is no pneumothorax. The he art is normal in size. There are epicardial pacing leads. IMPRESSION: 1. Right PICC with the tip overlying expected location of the superior vena cava. 2. Stable diffuse infiltrate in remaining support lines and tubes. Electronically signed by: Ellen Castro MD (08/23/2021 3:52 PM) [id number]
[2021-08-23] MEDS ORDERED: LIDOCAINE 1% Multi-Dose 20 ML VIAL. ONE (16:00)
[2021-08-23] MEDS ORDERED: AMIODARONE 150 MG in IV DEXTROSE 5% 100ML 100 ML IV ONE (16:00)
[2021-08-23] MEDS ORDERED: IODIXANOL 320 MG/ML 100 ML VIAL. ONE ×2 (16:00→17:07)
[2021-08-23] MEDS ORDERED: HEPARIN for ARTERIAL LINE 1,500 ML ONE (16:00)
[2021-08-23] MEDS ORDERED: AMIODARONE 150 MG/3 ML VIAL ONE (16:01)
[2021-08-23] MEDS ORDERED: ASPIRIN CHEWABLE 81 MG TABLET. ONE (16:06)
[2021-08-23] MEDS: AMIODARONE 450 MG in IV DEXTROSE 5% 250 ML IV PRN (16:06)
[2021-08-23] MEDS ORDERED: ASPIRIN CHEWABLE 81 MG TABLET. PO ONE (16:15)
[2021-08-23] MEDS ORDERED: AMIODARONE 150 MG/3 ML VIAL IVP ONE (16:15)
[2021-08-23] MEDS ORDERED: HEPARIN for IV BOLUS 10,000 UNIT/10 ML VIAL. ONE ×2 (16:23→16:47)
[2021-08-23] MEDS ORDERED: VERAPAMIL 5 MG/2 ML VIAL. ONE (16:23)
[2021-08-23] MEDS ORDERED: NITROGLYCERIN 200 MCG/2 ML SYRINGE FOR CATH/VASC LAB. ONE (16:23)
[2021-08-23] MEDS ORDERED: PHENYLEPHRINE in 0.9% NACL PF 1 MG/10 ML SYRINGE. IV ONE (16:41)
[2021-08-23] MEDS ORDERED: PHENYLEPHRINE INJ 50 MG in IV NS 250 ML IV PRN (16:45)
[2021-08-23] MEDS ORDERED: SODIUM BICARB ADULT 8.4% 50 MEQ/50 ML DISP.SYRIN. ONE (17:00)
[2021-08-23] MEDS ORDERED: EPINEPHrine SYRINGE 1 MG/10 ML SYRINGE. ONE (17:00)
[2021-08-23] MEDS ORDERED: NITROGLYCERIN 200 MCG/2 ML SYRINGE FOR CATH/VASC LAB. IART ONE (17:15)
[2021-08-23] MEDS ORDERED: HEPARIN for IV BOLUS 10,000 UNIT/10 ML VIAL. IART ONE (17:15)
[2021-08-23] MEDS ORDERED: HEPARIN for IV BOLUS 10,000 UNIT/10 ML VIAL. INT CAT ONE (17:15)
[2021-08-23] MEDS ORDERED: VERAPAMIL 5 MG/2 ML VIAL. IART ONE (17:15)
[2021-08-23] MEDS ORDERED: IODIXANOL 320 MG/ML 100 ML VIAL. IART ONE (17:15)
[2021-08-23] MEDS ORDERED: TIROFIBAN 12.5MG -0.9% NS 250 ML IV ONE (17:18)
[2021-08-23] MEDS: NOREPINEPHRINE VIAL 8 MG in IV DEXTROSE 5% 250 ML IV PRN ×2 (17:38→21:06)
--- NOTE | 2021-08-23 17:41 | NUR ---
NKDA BUN 21 Cr 1.02 Platelets 592 Blood culture done Y blood culture results Gram Positive Cocci 08/22/21 Order Verified Y Consent signed Y, family Previous PICC placement N Past Medical/Surgical history and current diagnosis reviewed Y Patient Medical /Surgical History Related to PICC line placement Arrhythmias Diabetes Infectious Disease consult Past central line Septicemia/Bacteremia Special considerations for PICC line placement None PICC placement indication Caustic medication class drug usage, long-term antibiotic usage, Poor peripheral intravenous access Brian WATKINS Addendum: 08/23/21 at 1747 by ANA MCKEON RN Amended: Links added.
[2021-08-23] MEDS ORDERED: TIROFIBAN 12.5MG -0.9% NS 250 ML IV PRN (17:45)
--- NOTE | 2021-08-23 17:46 | NUR ---
Procedure: Following complete explanation of the PICC procedure including the indications, risks, and potential complications, informed consent was obtained. The possibility for infection was discussed along with signs, symptoms, and prevention. All the questions were answered. Written and verbal patient education was provided. Hand hygiene performed. Standardized central line checklist was utilized. The patient was placed in the supine position, the arm was prepped with chlorhexidine and patient draped with maximum sterile barrier. 1 mL 1% lidocaine was infiltrated into the skin to provide local anesthesia. A thorough assessment of RIGHT upper extremity completed. Using real-time ultrasound guidance and standardized micro puncture set, the BASILLIC vein was punctured and a peel away sheath was placed using the modified Seldinger technique. A tip location device was used to ensure adequate catheter placement. The catheter was secured using a securement device and an antimicrobial patch was applied directly on the insertion site followed by a transparent dressing. All ports withdraw blood and flush without resistance. Patient tolerated the procedure without apparent complication(s). TRIPLE Lumen Power PICC placement successful and uncomplicated. Placement verified by EKG tip confirmation system and/or chest x-ray. Tip located in the CAJ Complications: NONE Addendum: 08/23/21 at 1747 by ANA MCKEON RN Amended: Links added.
[2021-08-23] MEDS ORDERED: HEPARIN for IV BOLUS 10,000 UNIT/10 ML VIAL. IV ONE (18:30)
--- NOTE | 2021-08-23 18:58 | CARD ---
MR#: [id number] Date of Study: 08/23/2021 Ordering Physician: REBECCA DUGGAN, Referring Physician: Eidlberto PERAZA: Khang Ramos [facility] APPROVED REPORT EXAM: LIMITED Two-dimensional and M-mode echocardiogram with Doppler and color Doppler. Other Information Quality : FairHR: 155bpm Rhythm : Atrial FibrillationTechnically limited study due to Limited study due to other procedures. INDICATION Status post Code Blue. Evaluate ejection fraction. RISK FACTORS S/P Covid 19 infection, COPD 2D DIMENSIONS Left Atrium(2D)4.3 (1.6-4.0cm)IVSd1.2 (0.7-1.1cm) Aortic Root(2D)3.3 (2.0-3.7cm)LVDd3.4 (3.9-5.9cm) LVOT Diameter2.2 (1.8-2.4cm)PWd1.2 (0.7-1.1cm) LVDs3.0 (2.5-4.0cm)FS (%) 11.9 % SV12.1 ml Pulmonary Valve PV Peak Swxnzjmt420.2cm/s Tricuspid Valve TR P. [id number] Peak Gr.26mmHg LEFT VENTRICLE The left ventricle is normal size. There is mild concentric left ventricular hypertrophy. The ejectio n fraction is moderately decreased. LV ejection fraction is 35 to 40%. There is inferior septal hyp okinesis. Diastolic function not assessed due to atrial fibrillation. No left ventricle thrombus note d on this study. There is no ventricular septal defect visualized. There is no left ventricular aneur ysm. There is no mass noted in the left ventricle. RIGHT VENTRICLE The right ventricle is mildly dilated. There is normal right ventricular wall thickness. Systolic fun ction is moderately reduced. ATRIA The left atrium is mildly dilated. The right atrium is mildly dilated. The interatrial septum is inta ct with no evidence for an atrial septal defect or patent foramen ovale as noted on 2-D or Doppler im aging. AORTIC VALVE The aortic valve is thickened but opens well. Doppler and Color Flow revealed no significant aortic r egurgitation. There is no significant aortic valvular stenosis. There is no aortic valvular vegetatio n. MITRAL VALVE The mitral valve is normal in structure and function. There is no evidence of mitral valve prolapse. There is no mitral valve stenosis. Doppler and Color Flow revealed mild mitral valve regurgitation. TRICUSPID VALVE The tricuspid valve is normal in structure and function. Doppler and Color Flow revealed mild tricusp id regurgitation. The PA pressure was estimated at 34 mmHg. There is no tricuspid valve prolapse or v egetation. There is no tricuspid valve stenosis. PULMONIC VALVE The pulmonary valve is normal in structure and function. Doppler and Color Flow revealed no pulmonic valvular regurgitation. There is no pulmonic valvular stenosis. GREAT VESSELS The aortic root is normal in size. The ascending aorta is normal in size. The pulmonary artery is nor mal. IVC is not well visualized. PERICARDIAL EFFUSION There is no pleural effusion. There is no evidence of significant pericardial effusion. Critical Notification Critical Value: No <Conclusion> The left ventricle is normal size. The ejection fraction is moderately decreased. LV ejection fraction is 35 to 40%. There is inferior septal hypokinesis. There is mild concentric left ventricular hypertrophy. Doppler and Color Flow revealed no significant aortic regurgitation. There is no significant aortic valvular stenosis. Doppler and Color Flow revealed mild mitral valve regurgitation. Doppler and Color Flow revealed mild tricuspid regurgitation. The PA pressure was estimated at 34 mmHg. Signed by : Chaparro Alanis MD Electronically Approved : 08/23/2021 18:58:05
[2021-08-23] MEDS: HEPARIN 25,000UTS/250ML PREMIX 250 ML IV PRN (19:17)
--- NOTE | 2021-08-23 20:20 | NUR ---
Pt has returned to sinus rhythm with frequent PVC's. Heart rate in the 80's.
[2021-08-23 20:37] LABS: PROTHROMBIN TIME PATIENT 16.3 SEC (11.7-14.0)
[2021-08-23 20:41] LABS: BASE EXCESS ABG -4 mmol/L (-3-3); HCO3 ABG 24 mmol/L (21-28); PO2 ABG 80 mmHg (65-108); SAT O2 ABG 94 % (92-99)
[2021-08-23 20:42] LABS: FIO2 ABG 100; PCO2 ABG 61 mmHg (35-46)
[2021-08-23 20:48] LABS: ALBUMIN/GLOBULIN RATIO 0.4 (1.0-1.7); CALCIUM 7.6 mg/dL (8.5-10.1); CREATININE 1.1 mg/dL (0.7-1.3); GFR 67.6; MAGNESIUM 1.9 mg/dL (1.8-2.4); POTASSIUM 3.3 mmol/L (3.5-5.1); TOTAL PROTEIN 6.5 g/dL (6.4-8.2)
[2021-08-23] MEDS: POTASSIUM CHLORIDE 20MEQ 100 ML IV SCH ×2 (22:09→23:10)
[2021-08-23] MEDS ORDERED: CLOPIDOGREL BISULFATE 75 MG TABLET PO ONE (22:30)
[2021-08-24] VITALS (24 sets, daily range): BP systolic 81–135; BP diastolic 43–81
[2021-08-24] MEDS: PIPERACILLIN/TAZOBACTAM 4.5 GM in IV DEXTROSE 5% 100ML 100 ML IV SCH ×5 (00:03→23:46)
[2021-08-24] MEDS: POTASSIUM CHLORIDE 20MEQ 100 ML IV SCH ×2 (00:49→02:00)
[2021-08-24] MEDS: AMIODARONE 450 MG in IV DEXTROSE 5% 250 ML IV PRN (01:22)
[2021-08-24] MEDS: HEPARIN for IV BOLUS 10,000 UNIT/10 ML VIAL. IV PRN ×2 (01:49→11:11)
[2021-08-24] MEDS: NOREPINEPHRINE VIAL 8 MG in IV DEXTROSE 5% 250 ML IV PRN (02:08)
[2021-08-24] MEDS: IV DEXTROSE 5%-LACT RINGERS 1,000 ML IV SCH ×2 (02:15→14:45)
[2021-08-24] MEDS: VANCOMYCIN 1 GM in IV NORMAL SALINE 250ML 250 ML IV SCH (04:00)
[2021-08-24] MEDS: methylPREDNISolone SOD SUCC PF 125 MG/2 ML VIAL. IV SCH ×3 (05:56→20:28)
[2021-08-24] MEDS: HALOPERIDOL LACTATE 5 MG/ML VIAL. IVP SCH ×2 (06:00→13:46)
[2021-08-24 06:21] LABS: BASO % 0 % (0-3); EOS % 0 % (0-3); HEMATOCRIT 33.6 % (39.0-53.0); HEMOGLOBIN 10.8 g/dL (13.0-17.5); LYMPH # 0.7 x10^3/uL (1.0-4.8); LYMPH % 4 % (24-48); MEAN CORPUSCULAR HEMOGLOBIN 29 pg (25-35); MEAN CORPUSCULAR HGB CONC 32 g/dL (31-37); MEAN CORPUSCULAR VOLUME 91 fL (79-100); MONO # 0.2 x10^3/uL (0.0-1.1); MONO % 1 % (0-9); NEUT # 15.6 x10^3/uL (1.8-7.7); NEUT % 94 % (31-73); PLATELET COUNT 443 x10^3/uL (140-400); RED BLOOD COUNT 3.69 x10^6/uL (4.30-5.70); RED CELL DISTRIBUTION WIDTH 14.6 % (11.5-14.5); WHITE BLOOD COUNT 16.6 x10^3/uL (4.0-11.0)
[2021-08-24 06:27] LABS: ALBUMIN 1.8 g/dL (3.4-5.0); ALBUMIN/GLOBULIN RATIO 0.5 (1.0-1.7); CALCIUM 7.4 mg/dL (8.5-10.1); CREATININE 1.1 mg/dL (0.7-1.3); GFR 67.6; POTASSIUM 5.1 mmol/L (3.5-5.1); TOTAL BILIRUBIN 0.8 mg/dL (0.2-1.0); TOTAL PROTEIN 5.7 g/dL (6.4-8.2)
[2021-08-24 06:28] LABS: CHOLESTEROL/HDL RATIO 8.4
[2021-08-24] MEDS: FAMOTIDINE 20 MG/2 ML VIAL IVP SCH ×2 (07:24→20:28)
[2021-08-24] MEDS: ASPIRIN CHEWABLE 81 MG TABLET. PO SCH (07:24)
[2021-08-24 07:54] LABS: BASE EXCESS ABG -1 mmol/L (-3-3); HCO3 ABG 26 mmol/L (21-28); PCO2 ABG 57 mmHg (35-46); PO2 ABG 123 mmHg (65-108); SAT O2 ABG 98 % (92-99)
[2021-08-24 07:55] LABS: FIO2 ABG 100
--- NOTE | 2021-08-24 07:58 | PDOC ---
PULMONARY PROGRESS NOTES DATE: 08/24/21 TIME: 07:57 Subjective Patient reintubated on 08/23 Cardiac arrest, EKG showed ST ST segment elevation [place] Currently on intra-aortic balloon pump Percent FiO2 7 of PEEP Vitals Vital Signs Date Time Temp Pulse Resp B/P (MAP) Pulse Ox O2 Delivery O2 Flow Rate FiO2 08/24/21 07:30 98 Ventilator 08/24/21 07:00 52 30 116/49 08/24/21 04:00 98.9 98.9 08/23/21 12:05 4.0 Lungs: Crackles Cardiovascular: S1, S2 Abdomen: Soft, Non-tender Extremities: No Edema Skin: Warm Labs Laboratory Tests Test 08/22/21 11:35 08/22/21 11:45 08/23/21 04:40 08/23/21 08:00 Urine Collection Type Unknown Urine Color Katiana Urine Clarity Hazy Urine pH 6.0 (<5.0-8.0) Urine Specific [place] >=1.030 (1.000-1.030) Urine Protein 30 mg/dL (NEG-TRACE) Urine Glucose (UA) Negative mg/dL (NEG) Urine Ketones (Stick) >=80 mg/dL (NEG) Urine Blood Negative (NEG) Urine Nitrite Negative (NEG) Urine Bilirubin Moderate (NEG) Urine Urobilinogen Dipstick 1.0 mg/dL (0.2 mg/dL) Urine Leukocyte Esterase Negative (NEG) Urine RBC 1-2 /HPF (0-2) Urine WBC 1-4 /HPF (0-4) Urine Squamous Epithelial Cells Few /LPF Urine Amorphous Sediment Present /HPF Urine Bacteria 0 /HPF (0-FEW) Urine Mucus Marked /LPF White Blood Count 12.2 x10^3/uL (4.0-11.0) Red Blood Count 4.32 x10^6/uL (4.30-5.70) Hemoglobin 12.6 g/dL (13.0-17.5) Hematocrit 37.9 % (39.0-53.0) Mean Corpuscular Volume 88 fL (79-100) Mean Corpuscular Hemoglobin 29 pg (25-35) Mean Corpuscular Hemoglobin Concent 33 g/dL (31-37) Red Cell Distribution Width 14.5 % (11.5-14.5) Platelet Count 449 x10^3/uL (140-400) Neutrophils (%) (Auto) 87 % (31-73) Lymphocytes (%) (Auto) 7 % (24-48) Monocytes (%) (Auto) 6 % (0-9) Eosinophils (%) (Auto) 0 % (0-3) Basophils (%) (Auto) 1 % (0-3) Neutrophils # (Auto) 10.6 x10^3/uL (1.8-7.7) Lymphocytes # (Auto) 0.8 x10^3/uL (1.0-4.8) Monocytes # (Auto) 0.7 x10^3/uL (0.0-1.1) Eosinophils # (Auto) 0.0 x10^3/uL (0.0-0.7) Basophils # (Auto) 0.1 x10^3/uL (0.0-0.2) Sodium Level 145 mmol/L (136-145) Potassium Level 3.7 mmol/L (3.5-5.1) Chloride Level 107 mmol/L (98-107) Carbon Dioxide Level 25 mmol/L (21-32) Anion Gap 13 (6-14) Blood Urea Nitrogen 24 mg/dL (8-26) Creatinine 0.7 mg/dL (0.7-1.3) 0.8 mg/dL (0.7-1.3) Estimated GFR (Cockcroft-Gault) 113.9 97.6 BUN/Creatinine Ratio 34 (6-20) Glucose Level 112 mg/dL (70-99) Lactic Acid Level 1.0 mmol/L (0.4-2.0) Calcium Level 8.4 mg/dL (8.5-10.1) Total Bilirubin 0.9 mg/dL (0.2-1.0) Aspartate Amino Transf (AST/SGOT) 48 U/L (15-37) Alanine Aminotransferase (ALT/SGPT) 49 U/L (16-63) Alkaline Phosphatase 132 U/L (46-116) Total Protein 6.4 g/dL (6.4-8.2) Albumin 2.4 g/dL (3.4-5.0) Albumin/Globulin Ratio 0.6 (1.0-1.7) Procalcitonin 0.17 ng/mL (0.00-0.10) O2 Saturation 99 % (92-99) Arterial Blood pH 7.48 (7.35-7.45) Arterial Blood pCO2 at Patient Temp 37 mmHg (35-46) Arterial Blood pO2 at Patient Temp 175 mmHg (65-108) Arterial Blood HCO3 26 mmol/L (21-28) Arterial Blood Base Excess 3 mmol/L (-3-3) FiO2 100% bipap Test 08/23/21 11:30 08/23/21 12:45 08/23/21 12:55 08/23/21 20:20 White Blood Count 22.7 x10^3/uL (4.0-11.0) Red Blood Count 4.26 x10^6/uL (4.30-5.70) Hemoglobin 12.1 g/dL (13.0-17.5) Hematocrit 38.9 % (39.0-53.0) Mean Corpuscular Volume 91 fL (79-100) Mean Corpuscular Hemoglobin 28 pg (25-35) Mean Corpuscular Hemoglobin Concent 31 g/dL (31-37) Red Cell Distribution Width 14.7 % (11.5-14.5) Platelet Count 592 x10^3/uL (140-400) Neutrophils (%) (Auto) 72 % (31-73) Lymphocytes (%) (Auto) 22 % (24-48) Monocytes (%) (Auto) 5 % (0-9) Eosinophils (%) (Auto) 1 % (0-3) Basophils (%) (Auto) 1 % (0-3) Neutrophils # (Auto) 16.4 x10^3/uL (1.8-7.7) Lymphocytes # (Auto) 4.9 x10^3/uL (1.0-4.8) Monocytes # (Auto) 1.1 x10^3/uL (0.0-1.1) Eosinophils # (Auto) 0.2 x10^3/uL (0.0-0.7) Basophils # (Auto) 0.1 x10^3/uL (0.0-0.2) Erythrocyte Sedimentation Rate 68 (0-15) Sodium Level 151 mmol/L (136-145) 147 mmol/L (136-145) Potassium Level 4.0 mmol/L (3.5-5.1) 3.3 mmol/L (3.5-5.1) Chloride Level 111 mmol/L (98-107) 107 mmol/L (98-107) Carbon Dioxide Level 29 mmol/L (21-32) 30 mmol/L (21-32) Anion Gap 11 (6-14) 10 (6-14) Blood Urea Nitrogen 21 mg/dL (8-26) 24 mg/dL (8-26) Creatinine 1.0 mg/dL (0.7-1.3) 1.1 mg/dL (0.7-1.3) Estimated GFR (Cockcroft-Gault) 75.5 67.6 BUN/Creatinine Ratio 21 (6-20) 22 (6-20) Glucose Level 191 mg/dL (70-99) 205 mg/dL (70-99) Calcium Level 7.8 mg/dL (8.5-10.1) 7.6 mg/dL (8.5-10.1) Magnesium Level 2.2 mg/dL (1.8-2.4) 1.9 mg/dL (1.8-2.4) Total Bilirubin 0.9 mg/dL (0.2-1.0) 1.0 mg/dL (0.2-1.0) Aspartate Amino Transf (AST/SGOT) 42 U/L (15-37) 175 U/L (15-37) Alanine Aminotransferase (ALT/SGPT) 46 U/L (16-63) 75 U/L (16-63) Alkaline Phosphatase 133 U/L (46-116) 136 U/L (46-116) Total Protein 6.2 g/dL (6.4-8.2) 6.5 g/dL (6.4-8.2) Albumin 2.2 g/dL (3.4-5.0) 2.0 g/dL (3.4-5.0) Albumin/Globulin Ratio 0.6 (1.0-1.7) 0.4 (1.0-1.7) Vancomycin Level Trough 13.9 mcg/mL (10.0-20.0) Vancomycin Last Dose Date 08/23/21 Vancomycin Last Dose Time 0400 Troponin I High Sensitivity 850 ng/L (4-75) 49859 ng/L (4-75) O2 Saturation 98 % (92-99) Arterial Blood pH 7.18 (7.35-7.45) Arterial Blood pCO2 at Patient Temp 85 mmHg (35-46) Arterial Blood pO2 at Patient Temp 134 mmHg (65-108) Arterial Blood HCO3 31 mmol/L (21-28) Arterial Blood Base Excess 0 mmol/L (-3-3) Prothrombin Time 16.3 SEC (11.7-14.0) Prothromb Time International Ratio 1.3 (0.8-1.1) Test 08/23/21 20:28 08/24/21 01:25 08/24/21 05:30 08/24/21 07:30 O2 Saturation 94 % (92-99) 98 % (92-99) Arterial Blood pH 7.22 (7.35-7.45) 7.28 (7.35-7.45) Arterial Blood pCO2 at Patient Temp 61 mmHg (35-46) 57 mmHg (35-46) Arterial Blood pO2 at Patient Temp 80 mmHg (65-108) 123 mmHg (65-108) Arterial Blood HCO3 24 mmol/L (21-28) 26 mmol/L (21-28) Arterial Blood Base Excess -4 mmol/L (-3-3) -1 mmol/L (-3-3) FiO2 100 100 Heparin Anti-Xa Act, Unfractionated < 0.10 IU/mL (0.30-0.70) White Blood Count 16.6 x10^3/uL (4.0-11.0) Red Blood Count 3.69 x10^6/uL (4.30-5.70) Hemoglobin 10.8 g/dL (13.0-17.5) Hematocrit 33.6 % (39.0-53.0) Mean Corpuscular Volume 91 fL (79-100) Mean Corpuscular Hemoglobin 29 pg (25-35) Mean Corpuscular Hemoglobin Concent 32 g/dL (31-37) Red Cell Distribution Width 14.6 % (11.5-14.5) Platelet Count 443 x10^3/uL (140-400) Neutrophils (%) (Auto) 94 % (31-73) Lymphocytes (%) (Auto) 4 % (24-48) Monocytes (%) (Auto) 1 % (0-9) Eosinophils (%) (Auto) 0 % (0-3) Basophils (%) (Auto) 0 % (0-3) Neutrophils # (Auto) 15.6 x10^3/uL (1.8-7.7) Lymphocytes # (Auto) 0.7 x10^3/uL (1.0-4.8) Monocytes # (Auto) 0.2 x10^3/uL (0.0-1.1) Eosinophils # (Auto) 0.0 x10^3/uL (0.0-0.7) Basophils # (Auto) 0.0 x10^3/uL (0.0-0.2) Sodium Level 146 mmol/L (136-145) Potassium Level 5.1 mmol/L (3.5-5.1) Chloride Level 111 mmol/L (98-107) Carbon Dioxide Level 29 mmol/L (21-32) Anion Gap 6 (6-14) Blood Urea Nitrogen 25 mg/dL (8-26) Creatinine 1.1 mg/dL (0.7-1.3) Estimated GFR (Cockcroft-Gault) 67.6 BUN/Creatinine Ratio 23 (6-20) Glucose Level 178 mg/dL (70-99) Calcium Level 7.4 mg/dL (8.5-10.1) Total Bilirubin 0.8 mg/dL (0.2-1.0) Aspartate Amino Transf (AST/SGOT) 323 U/L (15-37) Alanine Aminotransferase (ALT/SGPT) 85 U/L (16-63) Alkaline Phosphatase 120 U/L (46-116) Total Protein 5.7 g/dL (6.4-8.2) Albumin 1.8 g/dL (3.4-5.0) Albumin/Globulin Ratio 0.5 (1.0-1.7) Triglycerides Level 155 mg/dL (0-150) Cholesterol Level 160 mg/dL (0-200) LDL Cholesterol, Calculated 110 mg/dL (0-100) VLDL Cholesterol, Calculated 31 mg/dL (0-40) Non-HDL Cholesterol Calculated 141 mg/dL (0-129) HDL Cholesterol 19 mg/dL (40-60) Cholesterol/HDL Ratio 8.4 Laboratory Tests Test 08/23/21 08:00 08/23/21 11:30 08/23/21 12:45 08/23/21 12:55 O2 Saturation 99 % (92-99) 98 % (92-99) Arterial Blood pH 7.48 (7.35-7.45) 7.18 (7.35-7.45) Arterial Blood pCO2 at Patient Temp 37 mmHg (35-46) 85 mmHg (35-46) Arterial Blood pO2 at Patient Temp 175 mmHg (65-108) 134 mmHg (65-108) Arterial Blood HCO3 26 mmol/L (21-28) 31 mmol/L (21-28) Arterial Blood Base Excess 3 mmol/L (-3-3) 0 mmol/L (-3-3) FiO2 100% bipap White Blood Count 22.7 x10^3/uL (4.0-11.0) Red Blood Count 4.26 x10^6/uL (4.30-5.70) Hemoglobin 12.1 g/dL (13.0-17.5) Hematocrit 38.9 % (39.0-53.0) Mean Corpuscular Volume 91 fL (79-100) Mean Corpuscular Hemoglobin 28 pg (25-35) Mean Corpuscular Hemoglobin Concent 31 g/dL (31-37) Red Cell Distribution Width 14.7 % (11.5-14.5) Platelet Count 592 x10^3/uL (140-400) Neutrophils (%) (Auto) 72 % (31-73) Lymphocytes (%) (Auto) 22 % (24-48) Monocytes (%) (Auto) 5 % (0-9) Eosinophils (%) (Auto) 1 % (0-3) Basophils (%) (Auto) 1 % (0-3) Neutrophils # (Auto) 16.4 x10^3/uL (1.8-7.7) Lymphocytes # (Auto) 4.9 x10^3/uL (1.0-4.8) Monocytes # (Auto) 1.1 x10^3/uL (0.0-1.1) Eosinophils # (Auto) 0.2 x10^3/uL (0.0-0.7) Basophils # (Auto) 0.1 x10^3/uL (0.0-0.2) Erythrocyte Sedimentation Rate 68 (0-15) Sodium Level 151 mmol/L (136-145) Potassium Level 4.0 mmol/L (3.5-5.1) Chloride Level 111 mmol/L (98-107) Carbon Dioxide Level 29 mmol/L (21-32) Anion Gap 11 (6-14) Blood Urea Nitrogen 21 mg/dL (8-26) Creatinine 1.0 mg/dL (0.7-1.3) Estimated GFR (Cockcroft-Gault) 75.5 BUN/Creatinine Ratio 21 (6-20) Glucose Level 191 mg/dL (70-99) Calcium Level 7.8 mg/dL (8.5-10.1) Magnesium Level 2.2 mg/dL (1.8-2.4) Total Bilirubin 0.9 mg/dL (0.2-1.0) Aspartate Amino Transf (AST/SGOT) 42 U/L (15-37) Alanine Aminotransferase (ALT/SGPT) 46 U/L (16-63) Alkaline Phosphatase 133 U/L (46-116) Total Protein 6.2 g/dL (6.4-8.2) Albumin 2.2 g/dL (3.4-5.0) Albumin/Globulin Ratio 0.6 (1.0-1.7) Vancomycin Level Trough 13.9 mcg/mL (10.0-20.0) Vancomycin Last Dose Date 08/23/21 Vancomycin Last Dose Time 0400 Troponin I High Sensitivity 850 ng/L (4-75) Test 08/23/21 20:20 08/23/21 20:28 08/24/21 01:25 08/24/21 05:30 Prothrombin Time 16.3 SEC (11.7-14.0) Prothromb Time International Ratio 1.3 (0.8-1.1) Sodium Level 147 mmol/L (136-145) 146 mmol/L (136-145) Potassium Level 3.3 mmol/L (3.5-5.1) 5.1 mmol/L (3.5-5.1) Chloride Level 107 mmol/L (98-107) 111 mmol/L (98-107) Carbon Dioxide Level 30 mmol/L (21-32) 29 mmol/L (21-32) Anion Gap 10 (6-14) 6 (6-14) Blood Urea Nitrogen 24 mg/dL (8-26) 25 mg/dL (8-26) Creatinine 1.1 mg/dL (0.7-1.3) 1.1 mg/dL (0.7-1.3) Estimated GFR (Cockcroft-Gault) 67.6 67.6 BUN/Creatinine Ratio 22 (6-20) 23 (6-20) Glucose Level 205 mg/dL (70-99) 178 mg/dL (70-99) Calcium Level 7.6 mg/dL (8.5-10.1) 7.4 mg/dL (8.5-10.1) Magnesium Level 1.9 mg/dL (1.8-2.4) Total Bilirubin 1.0 mg/dL (0.2-1.0) 0.8 mg/dL (0.2-1.0) Aspartate Amino Transf (AST/SGOT) 175 U/L (15-37) 323 U/L (15-37) Alanine Aminotransferase (ALT/SGPT) 75 U/L (16-63) 85 U/L (16-63) Alkaline Phosphatase 136 U/L (46-116) 120 U/L (46-116) Troponin I High Sensitivity 28430 ng/L (4-75) Total Protein 6.5 g/dL (6.4-8.2) 5.7 g/dL (6.4-8.2) Albumin 2.0 g/dL (3.4-5.0) 1.8 g/dL (3.4-5.0) Albumin/Globulin Ratio 0.4 (1.0-1.7) 0.5 (1.0-1.7) O2 Saturation 94 % (92-99) Arterial Blood pH 7.22 (7.35-7.45) Arterial Blood pCO2 at Patient Temp 61 mmHg (35-46) Arterial Blood pO2 at Patient Temp 80 mmHg (65-108) Arterial Blood HCO3 24 mmol/L (21-28) Arterial Blood Base Excess -4 mmol/L (-3-3) FiO2 100 Heparin Anti-Xa Act, Unfractionated < 0.10 IU/mL (0.30-0.70) White Blood Count 16.6 x10^3/uL (4.0-11.0) Red Blood Count 3.69 x10^6/uL (4.30-5.70) Hemoglobin 10.8 g/dL (13.0-17.5) Hematocrit 33.6 % (39.0-53.0) Mean Corpuscular Volume 91 fL (79-100) Mean Corpuscular Hemoglobin 29 pg (25-35) Mean Corpuscular Hemoglobin Concent 32 g/dL (31-37) Red Cell Distribution Width 14.6 % (11.5-14.5) Platelet Count 443 x10^3/uL (140-400) Neutrophils (%) (Auto) 94 % (31-73) Lymphocytes (%) (Auto) 4 % (24-48) Monocytes (%) (Auto) 1 % (0-9) Eosinophils (%) (Auto) 0 % (0-3) Basophils (%) (Auto) 0 % (0-3) Neutrophils # (Auto) 15.6 x10^3/uL (1.8-7.7) Lymphocytes # (Auto) 0.7 x10^3/uL (1.0-4.8) Monocytes # (Auto) 0.2 x10^3/uL (0.0-1.1) Eosinophils # (Auto) 0.0 x10^3/uL (0.0-0.7) Basophils # (Auto) 0.0 x10^3/uL (0.0-0.2) Triglycerides Level 155 mg/dL (0-150) Cholesterol Level 160 mg/dL (0-200) LDL Cholesterol, Calculated 110 mg/dL (0-100) VLDL Cholesterol, Calculated 31 mg/dL (0-40) Non-HDL Cholesterol Calculated 141 mg/dL (0-129) HDL Cholesterol 19 mg/dL (40-60) Cholesterol/HDL Ratio 8.4 Test 08/24/21 07:30 O2 Saturation 98 % (92-99) Arterial Blood pH 7.28 (7.35-7.45) Arterial Blood pCO2 at Patient Temp 57 mmHg (35-46) Arterial Blood pO2 at Patient Temp 123 mmHg (65-108) Arterial Blood HCO3 26 mmol/L (21-28) Arterial Blood Base Excess -1 mmol/L (-3-3) FiO2 100 Impression . 1. Acute hypoxic respiratory failure secondary to COVID-19 pneumonia, acute respiratory distress syndrome and possible underlying fibrosis and emphysema., Extubated 08/20, reintubated 08/23 status post CODE BLUE 2. Abnormal CT chest 3. Hyponatremia. 4. Suspected underlying severe chronic obstructive pulmonary disease. 5. COVID-19 viral pneumonia. 6. Abnormal chest x-ray with bilateral diffuse infiltrates related to COVID-19 viral pneumonia. 7. Patient reintubated 08/23, CODE BLUE see below 8. Abnormal x-ray from 08/15, possible ARDS, possible pulmonary edema, possible aspiration 9. ST elevation [place] status post intra-aortic balloon pump 10. Emergent cardiac catheterization revealing 90% stenotic lesion 11. Echocardiogram revealing ejection fraction of 35 to 40% pulmonary artery pressure of 34 inferior septal wall hypokinesis 12. Bacteremia per cardiology CODE REPORT CODE REPORT This physician respond to CODE BLUE up in ICU. Per nursing report, patient was admitted to the hospital due to COVID-19 infection. Patient was found unresponsive, he was in V. tach, CODE BLUE was activated. Patient was resuscitated per ACLS protocol. Patient was shocked 1 time. He was converted to sinus rhythm, he was still not able to protect his airway, agonal breathing, therefore decision was made to intubate the patient. Patient was intubated by this physician via rapid sequence the patient. Patient was given etomidate 20 mg, 100 mg of succinylcholine IV bolus. Patient was intubated using glide scope assist, ET tube #7 and half. ET tube was secured 24 at the lip, positive color changes on CO2 detector. Post intubation chest x-ray show ET tube in the right place. Plan . Updated to Patient underwent emergent cardiac catheterization CAD: LHC revealed thrombotic distal right posterior descending artery and right posterior lateral artery occlusion. There was moderate 50% proximal and 90% mid stenosis appeared to have significant thrombotic burden with ectasia and dil ation of the coronary artery Continue current support assist-control 100% FiO2 7 of PEEP Continue intra-aortic balloon pump Follow cardiology input Discussed with at the bedside Prognosis is dismal Discontinue Haldol, to avoid cardiac arrhythmias Antibiotics per cardiology Follow-up on cultures Updated 08/23 Patient coded initially saturations started to drop, heart rate started to drop then he went into V. fib, ACLS protocol followed see CODE BLUE sheet Chest x-ray reviewed, will now cover for possible aspiration, pulmonary edema, ARDS Repeat PCR testing for Covid Discussed with and daughter at the bedside Repeat arterial blood gas Echocardiogram ESR Total cumulative critical care time of 30 minutes REBECCA DUGGAN MD Aug 24, 2021 07:57
[2021-08-24] MEDS ORDERED: FUROSEMIDE 40 MG/4 ML VIAL. IVP SCH (09:00)
--- NOTE | 2021-08-24 09:49 | CONS ---
DATE OF CONSULTATION: 08/24/2021 REFERRING PHYSICIAN: Lawson Dangelo MD REASON FOR CONSULTATION: Positive blood cultures. HISTORY OF PRESENT ILLNESS: A 65-year-old male who presented earlier at [facility] on 07/29/2021 and was noted to have hyponatremia, also had complaints of shortness of breath, nausea, vomiting, anosmia and ageusia. COVID-19 was positive. The patient left AMA and came back on 07/31 with worsening shortness of breath. He was intubated on 07/31, currently is intubated. History obtained from chart and medical staff. He was on Zosyn initially along with supportive care per Pulmonary team. On 08/20/2021, he was extubated. He started requiring BiPAP on 08/22/2021. He had AFib with RVR with code torsades to V-fib, was defibrillated, given epinephrine and bicarbonate drip. He was reintubated. 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 He underwent an IABP, currently on pressors, sedation and fentanyl. Blood cultures, 08/22/2021 positive for GPC. The patient is currently on IV vancomycin and Zosyn. ID consultation has been requested for antibiotic management. White count was 22.7, currently 16.6, hemoglobin of 10.8, platelets of 443, creatinine of 1.1. Sodium of 146. LFTs are elevated. Lactate of 1.0. PAST MEDICAL HISTORY: COPD, pneumonia, COVID positive at outside facility. PAST SURGICAL HISTORY: As per HPI. FAMILY HISTORY: As per HPI. SOCIAL HISTORY: Quit smoking, history of heavy use alcohol. CURRENT MEDICATIONS: IV vancomycin and Zosyn. Other medications reviewed in medication list, Levophed. ALLERGIES: No known drug allergies. REVIEW OF SYSTEMS: Unable to obtain. PHYSICAL EXAMINATION: VITAL SIGNS: Temperature 97.9, pulse 57, respiratory rate 31, blood pressure 125/56, oxygen saturation 98% on FiO2 of 100%. GENERAL: Intubated and sedated, opens eyes transiently to verbal stimuli. HEENT: No conjunctival petechia. ETT, OGT tube present. NECK: Supple. LUNGS: Coarse breath sounds in the bases, otherwise clear. HEART: S1, S2, irregular. I could not appreciate any murmurs. ABDOMEN: Soft, nontender, nondistended. Bowel sounds present. GENITOURINARY: Berumen in place. EXTREMITIES: No edema, no cyanosis. Right groin catheter site clean. Right upper extremity PICC line placed on 08/23/2021. DERMATOLOGIC: Warm, dry, no generalized rash. NEUROLOGIC: Unable to assess. PSYCHIATRIC: Unable to assess. MUSCULOSKELETAL: Changes suggestive of DJD. LABORATORY DATA: WBC 16.6 was 22.7, hemoglobin 10.8 was 12.1, platelets of 443. Sodium 146, potassium 5.1, chloride 111, bicarbonate 29, BUN 25, creatinine 1.1, glucose 178. Lactate 1.0. AST 323, ALT 85, alkaline phosphatase 120. Troponin 40,671, albumin 1.8. UA showed moderate bilirubin, 1-4 wbc's, leukocyte esterase negative. Toxicology; vancomycin trough is 13.9. INR 1.3. Heparin antibody less than 0.10. MICRO: Blood culture 2/4 bottles, 08/22/2021, positive for GPC. IMAGING: Chest x-ray shows a right PICC with tip overlying the expected location of the superior vena cava, stable diffuse infiltrates in the remaining support lines and tubes. IMPRESSION: 1. Gram-positive bacteremia, 2/4 bottles, 08/22/2021. 2. Acute hypoxic respiratory failure. 3. COVID-19 pneumonia. 4. Chronic obstructive pulmonary disease with possible underlying pulmonary fibrosis, aspiration pneumonia. 5. Status post code atrial fibrillation with rapid ventricular response, ventricular fibrillation, status post defibrillation, epinephrine, bicarbonate drip, status post cardiac catheterization. IABP placement. 6. Severe protein-calorie malnutrition. 7. Abnormal liver function tests, likely shock liver. 8. Anemia. RECOMMENDATIONS: 1. Discontinue vancomycin as he is requiring more than 3 grams a day. 2. Start daptomycin and Zyvox. 3. Continue Zosyn. 4. Repeat blood cultures in a.m. 5. Follow up GPC in blood cultures. 6. Follow up labs and cultures. 7. Continue supportive care. 8. PICC line was placed on 08/23/2021. 9. If repeat blood cultures are positive, the patient will need PICC line removal. 10. Critically ill. 11. Prognosis is guarded. Discussed with significant other at bedside. Discussed with RN. Thank you, Dr. Dangelo for consulting Infectious Disease to participate in this patient's care. If you have any questions, do not hesitate to contact me. CCT: 35 minutes. UNA/JJOO/MANUELA DR: Diana TID: [id number]
--- NOTE | 2021-08-24 10:25 | PN ---
DATE: 08/24/2021 SUBJECTIVE: The patient has apparently coded yesterday and he was resuscitated per ACLS protocol. He was shocked one time. He was converted to sinus rhythm and he was unable to protect his airways with agonal breathing and therefore he was intubated and put back on mechanical ventilation. He developed tachycardia and was in atrial fibrillation with rapid ventricular response. He was apparently shocked and he was taken to the electronic lab technician where he was found to have totally occluded right coronary artery and attempt to open the coronary artery has failed. He has an intraaortic balloon pump. He is now on a heparin drip. He continued to be sedated with Versed and fentanyl and requires also Levophed, although other vasopressors were discontinued. PHYSICAL EXAMINATION: GENERAL: When I saw him this morning, he was resting flat in bed, continued to be somewhat tachypneic; however, there was no pallor, jaundice, cyanosis. No lymphadenopathy, no thyromegaly, no jugular venous distention. No lower limb edema. VITAL SIGNS: His heart rate was 55, blood pressure was 115/81, temperature was 97.9, respiratory rate 30, and oxygen saturation was 98% on FiO2 of 100%. HEAD, EYES, EARS, NOSE, AND THROAT: Normocephalic, atraumatic. He has orotracheal and orogastric tube in place. NECK: Supple. HEART: Showed normal first and second heart sounds. No gallop, rub or murmur. CHEST: Shows central trachea, equal bilateral expansion, air entry, vesicular breath sounds. No crepitation or rhonchi. ABDOMEN: Distended, soft, nontender. NEUROLOGIC: He was heavily sedated. His intake was 2450, output was 1675. LABORATORY DATA: This morning showed a white cell count of 16,600, hemoglobin 11, hematocrit 33, MCV 91, and platelet count of 443,000. His chemistry this morning showed a serum sodium 146, potassium 5.1, chloride was 111, bicarbonate 29, anion gap of 6, BUN 25, creatinine 1.1. Estimated GFR was 67 mL per minute. His glucose 178, calcium was 7.5. Total bilirubin is normal. AST, ALT, alkaline phosphatase slightly elevated. His total protein was 5.7, albumin was 1.8. His total bilirubin was normal. His serum triglycerides 155. Total cholesterol was 160, LDL was 110, VLDL was 31, HDL was 19 and the ratio was 8.4. He has 2 sets of cardiac enzymes showed initial troponin to be 850, the second was 40,671. His blood culture has grown gram-positive cocci in clusters in 2/4 bottles and he is already on antibiotic and we did consult the Infectious Disease to assist with antibiotic management. ASSESSMENT: 1. In summary, this is a 65-year-old male patient who is status post code blue cardiac arrest, likely from hypoxia associated with COVID. He also has an acute myocardial infarction. He went into ventricular tachycardia, that was shocked and he has also went into atrial fibrillation with rapid ventricular response with return of spontaneous circulation. 2. Acute on chronic hypoxic respiratory failure, acute respiratory distress syndrome, pneumonia and chronic obstructive pulmonary disease. 3. Acute exacerbation of chronic obstructive pulmonary disease. 4. COVID-19 pneumonia. 5. Mild hypernatremia. 6. Atrial fibrillation with rapid ventricular response. 7. Inferior ST elevation myocardial infarction. EKG obtained upon cardiac evaluation. No prior history of coronary artery disease. 8. Shock, multifactorial including cardiogenic as well as septic. The patient underwent emergent left heart catheterization and was basically found to have totally occluded right coronary artery. He apparently has moderate 50%, proximal 90% mid stenosis, appeared to have significant thrombotic burden with ectasia and dilatation of the coronary artery. He has also had thrombotic distal right posterior descending artery and right posterolateral artery occlusion and apparently multiple attempts were made to traverse the distal thrombotic occlusion. Due to the significantly distal nature of these thrombi, balloon angioplasty was deferred out of concern for perforation. The more proximal stenosis was not intervened upon due to risk of significant embolic occlusion and therefore, the patient was treated with intravenous anticoagulant antiplatelet therapy. The patient was transferred to ICU. PLAN: Obviously to continue with IV antibiotic. He is now on daptomycin as well as linezolid and piperacillin/tazobactam. Continue with heparin drip. Continue with Tirofiban drip. Continue with Levophed. His amiodarone drip was discontinued as he has developed bradycardia. He has also what seemed to be seizure activity while in the electronic lab technician and was started on Keppra. His overall prognosis is poor. VEL DR: Vannessa TID: [id number]
[2021-08-24] MEDS: LINEZOLID 600 MG TABLET PO SCH ×2 (10:26→20:28)
[2021-08-24] MEDS: DAPTOmycin (GENERIC) IVPB 520 MG in IV NORMAL SALINE 50ML 50 ML IV SCH (10:37)
--- NOTE | 2021-08-24 11:26 | PDOC ---
ISIS GARCIA [facility] DIRECT[facility] 08/24/21 1125: CARDIO Progress Notes Date and Time Date of Service 08/24/2021 Time of Evaluation 1040 Subjective Subjective: Other (intubated) Vitals Vitals Vital Signs Date Time Temp Pulse Resp B/P (MAP) Pulse Ox O2 Delivery O2 Flow Rate FiO2 08/24/21 10:00 57 30 115/52 98 Ventilator 08/24/21 08:00 97.9 97.9 08/23/21 12:05 4.0 Weight Weight [ ] Input and Output Intake and Output Intake and Output 08/24/21 07:00 Intake Total 2391 ml Output Total 2014 ml Balance 376 ml IV Total 2391 ml Output Urine Total 2015 ml # Bowel Movements 1 Laboratory Labs Laboratory Tests Test 08/23/21 11:30 08/23/21 12:45 08/23/21 12:55 08/23/21 20:20 White Blood Count 22.7 x10^3/uL (4.0-11.0) Red Blood Count 4.26 x10^6/uL (4.30-5.70) Hemoglobin 12.1 g/dL (13.0-17.5) Hematocrit 38.9 % (39.0-53.0) Mean Corpuscular Volume 91 fL (79-100) Mean Corpuscular Hemoglobin 28 pg (25-35) Mean Corpuscular Hemoglobin Concent 31 g/dL (31-37) Red Cell Distribution Width 14.7 % (11.5-14.5) Platelet Count 592 x10^3/uL (140-400) Neutrophils (%) (Auto) 72 % (31-73) Lymphocytes (%) (Auto) 22 % (24-48) Monocytes (%) (Auto) 5 % (0-9) Eosinophils (%) (Auto) 1 % (0-3) Basophils (%) (Auto) 1 % (0-3) Neutrophils # (Auto) 16.4 x10^3/uL (1.8-7.7) Lymphocytes # (Auto) 4.9 x10^3/uL (1.0-4.8) Monocytes # (Auto) 1.1 x10^3/uL (0.0-1.1) Eosinophils # (Auto) 0.2 x10^3/uL (0.0-0.7) Basophils # (Auto) 0.1 x10^3/uL (0.0-0.2) Erythrocyte Sedimentation Rate 68 (0-15) Sodium Level 151 mmol/L (136-145) 147 mmol/L (136-145) Potassium Level 4.0 mmol/L (3.5-5.1) 3.3 mmol/L (3.5-5.1) Chloride Level 111 mmol/L (98-107) 107 mmol/L (98-107) Carbon Dioxide Level 29 mmol/L (21-32) 30 mmol/L (21-32) Anion Gap 11 (6-14) 10 (6-14) Blood Urea Nitrogen 21 mg/dL (8-26) 24 mg/dL (8-26) Creatinine 1.0 mg/dL (0.7-1.3) 1.1 mg/dL (0.7-1.3) Estimated GFR (Cockcroft-Gault) 75.5 67.6 BUN/Creatinine Ratio 21 (6-20) 22 (6-20) Glucose Level 191 mg/dL (70-99) 205 mg/dL (70-99) Calcium Level 7.8 mg/dL (8.5-10.1) 7.6 mg/dL (8.5-10.1) Magnesium Level 2.2 mg/dL (1.8-2.4) 1.9 mg/dL (1.8-2.4) Total Bilirubin 0.9 mg/dL (0.2-1.0) 1.0 mg/dL (0.2-1.0) Aspartate Amino Transf (AST/SGOT) 42 U/L (15-37) 175 U/L (15-37) Alanine Aminotransferase (ALT/SGPT) 46 U/L (16-63) 75 U/L (16-63) Alkaline Phosphatase 133 U/L (46-116) 136 U/L (46-116) Total Protein 6.2 g/dL (6.4-8.2) 6.5 g/dL (6.4-8.2) Albumin 2.2 g/dL (3.4-5.0) 2.0 g/dL (3.4-5.0) Albumin/Globulin Ratio 0.6 (1.0-1.7) 0.4 (1.0-1.7) Vancomycin Level Trough 13.9 mcg/mL (10.0-20.0) Vancomycin Last Dose Date 08/23/21 Vancomycin Last Dose Time 0400 Troponin I High Sensitivity 850 ng/L (4-75) 20498 ng/L (4-75) O2 Saturation 98 % (92-99) Arterial Blood pH 7.18 (7.35-7.45) Arterial Blood pCO2 at Patient Temp 85 mmHg (35-46) Arterial Blood pO2 at Patient Temp 134 mmHg (65-108) Arterial Blood HCO3 31 mmol/L (21-28) Arterial Blood Base Excess 0 mmol/L (-3-3) Prothrombin Time 16.3 SEC (11.7-14.0) Prothromb Time International Ratio 1.3 (0.8-1.1) Test 08/23/21 20:28 08/24/21 01:25 08/24/21 05:30 08/24/21 07:30 O2 Saturation 94 % (92-99) 98 % (92-99) Arterial Blood pH 7.22 (7.35-7.45) 7.28 (7.35-7.45) Arterial Blood pCO2 at Patient Temp 61 mmHg (35-46) 57 mmHg (35-46) Arterial Blood pO2 at Patient Temp 80 mmHg (65-108) 123 mmHg (65-108) Arterial Blood HCO3 24 mmol/L (21-28) 26 mmol/L (21-28) Arterial Blood Base Excess -4 mmol/L (-3-3) -1 mmol/L (-3-3) FiO2 100 100 Heparin Anti-Xa Act, Unfractionated < 0.10 IU/mL (0.30-0.70) White Blood Count 16.6 x10^3/uL (4.0-11.0) Red Blood Count 3.69 x10^6/uL (4.30-5.70) Hemoglobin 10.8 g/dL (13.0-17.5) Hematocrit 33.6 % (39.0-53.0) Mean Corpuscular Volume 91 fL (79-100) Mean Corpuscular Hemoglobin 29 pg (25-35) Mean Corpuscular Hemoglobin Concent 32 g/dL (31-37) Red Cell Distribution Width 14.6 % (11.5-14.5) Platelet Count 443 x10^3/uL (140-400) Neutrophils (%) (Auto) 94 % (31-73) Lymphocytes (%) (Auto) 4 % (24-48) Monocytes (%) (Auto) 1 % (0-9) Eosinophils (%) (Auto) 0 % (0-3) Basophils (%) (Auto) 0 % (0-3) Neutrophils # (Auto) 15.6 x10^3/uL (1.8-7.7) Lymphocytes # (Auto) 0.7 x10^3/uL (1.0-4.8) Monocytes # (Auto) 0.2 x10^3/uL (0.0-1.1) Eosinophils # (Auto) 0.0 x10^3/uL (0.0-0.7) Basophils # (Auto) 0.0 x10^3/uL (0.0-0.2) Sodium Level 146 mmol/L (136-145) Potassium Level 5.1 mmol/L (3.5-5.1) Chloride Level 111 mmol/L (98-107) Carbon Dioxide Level 29 mmol/L (21-32) Anion Gap 6 (6-14) Blood Urea Nitrogen 25 mg/dL (8-26) Creatinine 1.1 mg/dL (0.7-1.3) Estimated GFR (Cockcroft-Gault) 67.6 BUN/Creatinine Ratio 23 (6-20) Glucose Level 178 mg/dL (70-99) Calcium Level 7.4 mg/dL (8.5-10.1) Total Bilirubin 0.8 mg/dL (0.2-1.0) Aspartate Amino Transf (AST/SGOT) 323 U/L (15-37) Alanine Aminotransferase (ALT/SGPT) 85 U/L (16-63) Alkaline Phosphatase 120 U/L (46-116) Total Protein 5.7 g/dL (6.4-8.2) Albumin 1.8 g/dL (3.4-5.0) Albumin/Globulin Ratio 0.5 (1.0-1.7) Triglycerides Level 155 mg/dL (0-150) Cholesterol Level 160 mg/dL (0-200) LDL Cholesterol, Calculated 110 mg/dL (0-100) VLDL Cholesterol, Calculated 31 mg/dL (0-40) Non-HDL Cholesterol Calculated 141 mg/dL (0-129) HDL Cholesterol 19 mg/dL (40-60) Cholesterol/HDL Ratio 8.4 Test 08/24/21 08:24 Heparin Anti-Xa Act, Unfractionated < 0.10 IU/mL (0.30-0.70) Microbiology Micro Microbiology 08/22/21 Blood Culture - Final, Complete Physical Exam HEENT: Neck Supple W Full Motion Chest: Symmetric LUNGS: Other (diminished; intubated with MV) Heart: RRR (SR/SB) Abdomen: Other (soft) Extremities: No Edema, Other (dopllerable pedal pulses) Neurology: other (sedated) Other Exams right groin arteriotomy site intact without swelling or erythema. Catheter intact Assessment Assessment 1. S/P code blue: cardiac arrest likely from hypoxia associated covid-19 PNA/ARDS s/p reintubation. Could not completely rule out PE. Noted with VT shock x1. Strip reviewed noted with torsades. approximately <3 min to ROSC 2. Acute on chronic respiratory failure with ARDS/PNA/COPD 3. AECOPD 4. Covid-19 Pneumonia: noted+ 07/29/2021 5. Hypernatremia: was hyponatremic upon admission. Improved 6. AFIB RVR: converted to SR overnight. Presently SR/SB lowest 40s 7. Inferior STEMI: EKG obtained upon cardiac evaluation. No prior hx of CAD 8. Shock: multifactorial. Gram-positive bacteremia, 2/4 bottles 9. CAD: LHC revealed thrombotic distal right posterior descending artery and right posterior lateral artery occlusion. There was moderate 50% proximal and 90% mid stenosis appeared to have significant thrombotic burden with ectasia and dilation of the coronary artery 10. ICM: EF at 35-40% 11. Bacteremia: Gram-positive bacteremia, 2/4 bottles, 08/22/2021. ID following 12. Shock liver 13. Encephalopathy with possible seizure 14. Acute systolic CHF 15. Black distal phalanx to left 2nd toe: possibly r/t to covid-19 Recommendations 1. Multiple attempts to traverse to distal occlusions but was not able to and eventually deferred due to risk of perforation. The more proximal stenosis was not intervened upon due to risk of significant embolic occlusions. Will have neuro evaluate. Continue heparin drip and antiplatelet therapy and reevaluate for possible intervention next week 3. Continue IABP 1:1 currently. BP stable with levophed 4. Renal function is stable. adequate UOP. Continue lasix therapy 5. Will start amiodarone per OG will check with pulmonary for detention use. 6. Will optimize meds per HF GDMT as tolerated 7. Secondary prevention measures, adjust statin per LFTs 8. Consult neurology 9. Arterial duplex to LLE Justicifation of Admission Dx: Justifications for Admission: Justification of Admission Dx: N/A TEDDY ANGLIN MD 08/24/21 1830: CARDIO Progress Notes Plan Plan Patient seen and examined. Agree with above nurse practitioner note. We will plan for continued aggressive measures and wean vasopressors as tolerated. When vasopressors are weaned off completely we will then remove the balloon pump. Plan for staged PCI of the proximal RCA after neurologic and pulmonary recovery. We will repeat echocardiogram next week depending on patient clinical status. ISIS GARCIA APRN Aug 24, 2021 11:25 TEDDY ANGLIN MD Aug 24, 2021 18:30
[2021-08-24] MEDS ORDERED: CLOPIDOGREL BISULFATE 75 MG TABLET PO ONE (11:30)
--- NOTE | 2021-08-24 12:17 | PDOC2 ---
NEUROLOGY CONSULT Date of Service DOS: DATE: 08/24/21 TIME: 12:09 Reason for Consult Reason for Consult: Postcode, possible seizure activity Referring Physician Referring Physician: Dr. Dangelo Source Source: Caregiver (Significant other, children), Chart review History of Present Illness History of Present Illness The patient is a 65-year-old right-handed male originally admitted on 07/29/2021 with dyspnea, cough, loss of taste, found to have Covid. He was not vaccinated for Covid. He left AGAINST MEDICAL ADVICE, then return on 08/01 with worsening symptoms. He was intubated for 2 weeks with Covid pneumonia, just extubated on 08/20. He was doing fairly well until yesterday when he had respiratory arrest code he then had ventricular tachycardia x1. He was taken to the [facility] where he was diagnosed with inferior ST elevation myocardial infarction. He had thrombotic distal right posterior descending artery and right posterior lateral artery occlusion, moderate 50% and 90% mid stenosis with significant thrombotic burden with ectasia and dilation of the coronary artery, ejection fraction was 35-40%. He also has atrial fibrillation, hyponatremia, bacteremia, shock liver. He was observed to have some possible seizure activity and was started on Keppra. He is on a balloon pump. Past Medical History Cardiovascular: AFIB, CAD Psych: Addictions, Depression Past Surgical History Past Surgical History: Other (Cardiac catheterization) Family History Family History: CAD Social History Social History Has significant other, quit smoking, continues to use alcohol heavily prior to admission, retired Current Medications Current Medications Current Medications Dexamethasone Sodium Phosphate (Decadron) 6 mg DAILY IVP Last administered on 08/10/21at 08:29; Start 08/01/21 at 09:00; Stop 08/10/21 at 09:01; Status DC Heparin Sodium (Porcine) (Heparin Sodium) 5,000 unit Q8HRS SQ Last administered on 08/20/21at 05:41; Start 07/31/21 at 14:00; Stop 08/20/21 at 08:37; Status DC Famotidine (Pepcid Vial) 20 mg BID IVP Last administered on 08/24/21at 07:24; Start 07/31/21 at 14:00 Fentanyl Citrate 30 ml @ 2.5 mls/hr CONT PRN IV SEE PROTOCOL Last administered on 07/31/21at 12:49; Start 07/31/21 at 12:15; Stop 07/31/21 at 16:19; Status DC Midazolam HCl 100 ml @ 1 mls/hr CONT PRN IV SEE PROTOCOL Last administered on 08/23/21at 21:42; Start 07/31/21 at 12:15 Propofol 100 ml @ 3.45 mls/hr CONT PRN IV PER PROTOCOL Last administered on 08/20/21at 03:08; Start 07/31/21 at 12:15 Vecuronium Furman (Norcuron Bolus) 6 mg PRN 1X PRN IV VENT INDUCTION; Start 07/31/21 at 12:15; Stop 08/01/21 at 12:14; Status DC Glycerin/ Hypromellose/ Polyethylene (Artificial Tears) 1 drop PRN Q1HR PRN OU DRY EYE; Start 07/31/21 at 12:15 Dexmedetomidine HCl 400 mcg/ Sodium Chloride 100 ml @ 0 mls/hr CONT PRN IV PER PROTOCOL Last administered on 08/17/21at 12:55; Start 07/31/21 at 12:15 Midazolam HCl (Versed) 5 mg PRN 1X PRN IVP VENT INDUCTION; Start 07/31/21 at 12:15; Stop 08/01/21 at 12:14; Status DC Sodium Chloride 500 ml @ 500 mls/hr 1X PRN PRN IV SEE COMMENTS; Start 07/31/21 at 12:15 Atropine Sulfate (ATROPINE 0.5mg SYRINGE) 0.5 mg PRN Q5MIN PRN IV SEE COMMENTS; Start 07/31/21 at 12:15 Famotidine (Pepcid Vial) 20 mg BID IVP ; Start 07/31/21 at 21:00; Status UNV Piperacillin Sod/ Tazobactam Sod (Zosyn Per Pharmacy) 1 each PRN DAILY PRN MC SEE COMMENTS; Start 07/31/21 at 15:15; Stop 08/08/21 at 12:29; Status DC Piperacillin Sod/ Tazobactam Sod 3.375 gm/Sodium Chloride 50 ml @ 100 mls/hr Q6HRS IV Last administered on 08/07/21at 11:20; Start 07/31/21 at 18:00; Stop 08/07/21 at 17:59; Status DC Fentanyl Citrate 55 ml @ 1 mls/hr CONT PRN IV SEE PROTOCOL Last administered on 08/23/21at 11:35; Start 07/31/21 at 15:45 Insulin Human Lispro (HumaLOG) 0-7 UNITS Q6HRS SQ ; Start 08/02/21 at 06:00; Stop 08/07/21 at 08:09; Status DC Dextrose (Dextrose 50%-Water Syringe) 12.5 gm PRN Q15MIN PRN IV SEE COMMENTS; Start 08/01/21 at 23:00 Vecuronium Furman (Norcuron Bolus) 6 mg PRN Q6HRS PRN IV VENTILATOR COMPLIANCE Last administered on 08/23/21at 18:29; Start 08/06/21 at 13:45 Vecuronium Furman (Norcuron Bolus) 10 mg STK-MED ONCE IV ; Start 08/06/21 at 13:34; Stop 08/07/21 at 13:38; Status DC Sterile Water (WATER for RESP) 1,000 ml CONT PRN INH VIA VAPOTHERM DEVICE; Start 08/12/21 at 09:45; Status Cancel Dexamethasone Sodium Phosphate (Decadron) 6 mg DAILY IVP ; Start 08/17/21 at 09:00; Stop 08/16/21 at 13:31; Status DC Dexamethasone Sodium Phosphate (Decadron) 10 mg 1X ONCE IV ; Start 08/16/21 at 12:30; Stop 08/16/21 at 13:31; Status DC Acetaminophen (Tylenol) 650 mg PRN Q6HRS PRN PEG MILD PAIN / TEMP > 100.3'F Last administered on 08/20/21at 03:50; Start 08/17/21 at 00:15 Heparin Sodium (Porcine) (Heparin Sodium) 5,000 unit Q8HRS SQ Last administered on 08/23/21at 05:39; Start 08/21/21 at 14:00; Stop 08/23/21 at 18:33; Status DC Fentanyl Citrate (Fentanyl 2ml Vial) 25 mcg PRN Q5MIN PRN IVP MILD PAIN 1-3; Start 08/21/21 at 06:00; Stop 08/22/21 at 05:59; Status DC Fentanyl Citrate (Fentanyl 2ml Vial) 50 mcg PRN Q5MIN PRN IVP MODERATE PAIN 4- 6; Start 08/21/21 at 06:00; Stop 08/22/21 at 05:59; Status DC Morphine Sulfate (Morphine Sulfate) 1 mg PRN Q10MIN PRN IVP SEVERE PAIN 7-10; Start 08/21/21 at 06:00; Stop 08/22/21 at 05:59; Status DC Ringer's Solution 1,000 ml @ 30 mls/hr Q24H IV ; Start 08/21/21 at 06:00; Stop 08/21/21 at 17:59; Status DC Hydromorphone HCl (Dilaudid) 0.5 mg PRN Q10MIN PRN IVP SEVERE PAIN 7-10, 2nd CHOICE; Start 08/21/21 at 06:00; Stop 08/22/21 at 05:59; Status DC Prochlorperazine Edisylate (Compazine) 5 mg PACU PRN PRN IVP NAUSEA, MRX1; Start 08/21/21 at 06:00; Stop 08/22/21 at 05:59; Status DC Haloperidol Lactate (Haldol Inj) 5 mg PRN Q8HRS PRN IVP AGITATION; Start 08/22/21 at 10:45; Stop 08/22/21 at 10:45; Status DC Haloperidol Lactate (Haldol Inj) 5 mg Q8HRS IVP Last administered on 08/23/21at 05:38; Start 08/22/21 at 11:00 Acetaminophen (Tylenol Supp) 650 mg Q4H ONCE ID Last administered on 08/22/21at 11:45; Start 08/22/21 at 11:30; Stop 08/22/21 at 11:31; Status DC Vancomycin HCl (Vanco Per Pharmacy) 1 each PRN DAILY PRN MC SEE COMMENTS Last administered on 08/23/21at 12:21; Start 08/22/21 at 11:30; Stop 08/24/21 at 09:14; Status DC Piperacillin Sod/ Tazobactam Sod (Zosyn Per Pharmacy) 1 each PRN DAILY PRN MC SEE COMMENTS; Start 08/22/21 at 11:30 Piperacillin Sod/ Tazobactam Sod 4.5 gm/Dextrose 100 ml @ 200 mls/hr Q6HRS IV Last administered on 08/24/21at 05:56; Start 08/22/21 at 12:00 Vancomycin HCl 2 gm/Sodium Chloride 500 ml @ 250 mls/hr 1X ONCE IV Last administered on 08/22/21at 12:34; Start 08/22/21 at 13:00; Stop 08/22/21 at 14:59; Status DC Acetaminophen (Tylenol Supp) 650 mg PRN Q4HRS PRN ID MILD PAIN / TEMP > 100.3'F Last administered on 08/22/21at 23:32; Start 08/22/21 at 11:45 Dextrose/Lactated Ringer's 1,000 ml @ 80 mls/hr [id number] IV Last administered on 08/23/21at 01:15; Start 08/22/21 at 12:45 Vancomycin HCl 1 gm/Sodium Chloride 250 ml @ 250 mls/hr Q8H IV Last administered on 08/24/21at 04:00; Start 08/22/21 at 20:00; Stop 08/24/21 at 09:14; Status DC Vancomycin HCl (Vancomycin Trough Level) 1 each 1X ONCE MC ; Start 08/23/21 at 11:30; Stop 08/24/21 at 09:14; Status DC Etomidate (Amidate) 20 mg STK-MED ONCE IV ; Start 08/23/21 at 11:25; Stop 08/23/21 at 11:25; Status DC Succinylcholine Chloride (Anectine) 200 mg STK-MED ONCE .ROUTE ; Start 08/23/21 at 11:25; Stop 08/23/21 at 11:26; Status DC Etomidate (Amidate) 20 mg 1X ONCE IV Last administered on 08/23/21at 12:21; Start 08/23/21 at 12:15; Stop 08/23/21 at 12:16; Status DC Succinylcholine Chloride (Anectine) 100 mg 1X ONCE IV Last administered on 08/23/21at 12:21; Start 08/23/21 at 12:15; Stop 08/23/21 at 12:16; Status DC Methylprednisolone Sodium Succinate (SOLU-Medrol 125MG VIAL) 125 mg Q8HRS IV Last administered on 08/24/21at 05:56; Start 08/23/21 at 14:00 Furosemide (Lasix) 40 mg 1X ONCE IVP Last administered on 08/23/21at 13:19; Start 08/23/21 at 12:45; Stop 08/23/21 at 12:56; Status DC Furosemide (Lasix) 40 mg DAILY IVP Last administered on 08/24/21at 07:24; Start 08/24/21 at 09:00; Stop 08/24/21 at 11:24; Status DC Digoxin (Lanoxin) 500 mcg 1X ONCE IV Last administered on 08/23/21at 15:16; Start 08/23/21 at 15:30; Stop 08/23/21 at 15:31; Status DC Amiodarone HCl 150 mg/Dextrose 103 ml @ 600 mls/hr 1X ONCE IV ; Start 08/23/21 at 16:00; Stop 08/23/21 at 16:10; Status DC Amiodarone HCl 450 mg/Dextrose 259 ml @ 33 mls/hr CONT PRN IV SEE I/O RECORD Last administered on 08/24/21at 01:22; Start 08/23/21 at 16:00; Stop 08/24/21 at 15:59 Iodixanol (Visipaque 320) 100 ml STK-MED ONCE .ROUTE ; Start 08/23/21 at 16:00; Stop 08/23/21 at 16:00; Status DC Lidocaine HCl (Lidocaine 1% 20ml Vial) 20 ml STK-MED ONCE .ROUTE ; Start 08/23/21 at 16:00; Stop 08/23/21 at 16:00; Status DC Heparin Sodium/ Sodium Chloride 1,500 ml @ As Directed STK-MED ONCE .ROUTE ; Start 08/23/21 at 16:00; Stop 08/23/21 at 16:00; Status DC Amiodarone HCl (Cordarone) 150 mg STK-MED ONCE .ROUTE ; Start 08/23/21 at 16:01; Stop 08/23/21 at 16:01; Status DC Amiodarone HCl (Cordarone) 150 mg 1X ONCE IVP Last administered on 08/23/21at 16:23; Start 08/23/21 at 16:15; Stop 08/23/21 at 16:16; Status DC Aspirin (Aspirin Chewable) 324 mg 1X ONCE PO Last administered on 08/23/21at 16:07; Start 08/23/21 at 16:15; Stop 08/23/21 at 16:16; Status DC Aspirin (Aspirin Chewable) 81 mg STK-MED ONCE .ROUTE ; Start 08/23/21 at 16:06; Stop 08/23/21 at 16:06; Status DC Heparin Sodium (Porcine) (Heparin Sodium) 10,000 unit STK-MED ONCE .ROUTE ; Start 08/23/21 at 16:23; Stop 08/23/21 at 16:24; Status DC Verapamil HCl (Verapamil) 5 mg STK-MED ONCE .ROUTE ; Start 08/23/21 at 16:23; Stop 08/23/21 at 16:24; Status DC Nitroglycerin (Nitroglycerin) 200 mcg STK-MED ONCE .ROUTE ; Start 08/23/21 at 16:23; Stop 08/23/21 at 16:24; Status DC Aspirin (Aspirin Chewable) 81 mg DAILYWBKFT PO Last administered on 08/24/21at 07:24; Start 08/24/21 at 08:00 Phenylephrine HCl 50 mg/Sodium Chloride 255 ml @ 14.351 mls/ hr CONT PRN IV PER PROTOCOL Last administered on 08/23/21at 16:42; Start 08/23/21 at 16:45 Phenylephrine HCl (PHENYLEPHRINE in 0.9% NACL PF) 1 mg STK-MED ONCE IV ; Start 08/23/21 at 16:41; Stop 08/23/21 at 16:41; Status DC Heparin Sodium (Porcine) (Heparin Sodium) 10,000 unit STK-MED ONCE .ROUTE ; Start 08/23/21 at 16:47; Stop 08/23/21 at 16:47; Status DC Norepinephrine Bitartrate 8 mg/ Dextrose 258 ml @ 18.15 mls/ hr CONT PRN IV PER PROTOCOL Last administered on 08/24/21at 02:08; Start 08/23/21 at 17:00 Iodixanol (Visipaque 320) 100 ml STK-MED ONCE .ROUTE ; Start 08/23/21 at 17:07; Stop 08/23/21 at 17:07; Status DC Nitroglycerin (Nitroglycerin) 200 mcg 1X ONCE IART Last administered on 08/23/21at 16:35; Start 08/23/21 at 17:15; Stop 08/23/21 at 17:16; Status DC Verapamil HCl (Verapamil) 2.5 mg 1X ONCE IART Last administered on 08/23/21at 16:35; Start 08/23/21 at 17:15; Stop 08/23/21 at 17:16; Status DC Heparin Sodium (Porcine) (Heparin Sodium) 2,500 unit 1X ONCE IART Last administered on 08/23/21at 16:42; Start 08/23/21 at 17:15; Stop 08/23/21 at 17:16; Status DC Heparin Sodium/ Sodium Chloride (HEPARIN for ARTERIAL LINE FLUSH) 1,000 unit 1X ONCE IART Last administered on 08/23/21at 17:15; Start 08/23/21 at 17:15; Stop 08/23/21 at 17:16; Status DC Heparin Sodium/ Sodium Chloride (HEPARIN for ARTERIAL LINE FLUSH) 4,000 unit 1X ONCE IV Last administered on 08/23/21at 17:15; Start 08/23/21 at 17:15; Stop 08/23/21 at 17:16; Status DC Iodixanol (Visipaque 320) 100 ml 1X ONCE IART Last administered on 08/23/21at 17:15; Start 08/23/21 at 17:15; Stop 08/23/21 at 17:16; Status DC Heparin Sodium (Porcine) (Heparin Sodium) 5,000 unit 1X ONCE INT CAT Last administered on 08/23/21at 16:52; Start 08/23/21 at 17:15; Stop 08/23/21 at 17:16; Status DC Tirofiban/Sodium Chloride 250 ml @ As Directed STK-MED ONCE IV ; Start 08/23/21 at 17:18; Stop 08/23/21 at 17:18; Status DC Tirofiban/Sodium Chloride 250 ml @ 16.884 mls/ hr CONT PRN IV PER PROTOCOL Last administered on 08/23/21at 17:16; Start 08/23/21 at 17:45; Stop 08/24/21 at 11:44; Status DC Heparin Sodium (Porcine) (Heparin Sodium) 5,000 unit 1X ONCE IV Last administe red on 08/23/21at 17:09; Start 08/23/21 at 18:30; Stop 08/23/21 at 18:31; Status DC Levetiracetam 100 ml @ 400 mls/hr Q12HR IV Last administered on 08/24/21at 07:25; Start 08/23/21 at 21:00 Heparin Sodium/ Dextrose 250 ml @ 11.256 mls/ hr CONT PRN IV PER PROTOCOL Last administered on 08/23/21at 19:17; Start 08/23/21 at 18:45 Heparin Sodium (Porcine) (Heparin Sodium) 2,350 unit PRN Q6HRS PRN IV FOR UFH LEVEL LESS THAN 0.2 Last administered on 08/24/21at 11:11; Start 08/23/21 at 18:45 Clopidogrel Bisulfate (Plavix) 600 mg 1X ONCE PO Last administered on 08/23/21at 22:06; Start 08/23/21 at 22:30; Stop 08/23/21 at 22:31; Status DC Potassium Chloride/Water 100 ml @ 100 mls/hr Q1H IV Last administered on 08/24/21at 02:00; Start 08/23/21 at 22:00; Stop 08/24/21 at 01:59; Status DC Daptomycin 520 mg/ Sodium Chloride 50 ml @ 100 mls/hr Q24H IV Last administered on 08/24/21at 10:37; Start 08/24/21 at 11:00 Linezolid (Zyvox) 600 mg BID PO Last administered on 08/24/21at 10:26; Start 08/24/21 at 10:00 Amiodarone HCl (Cordarone) 200 mg DAILY PO ; Start 08/24/21 at 12:00 Furosemide (Lasix) 40 mg DAILY IVP ; Start 08/25/21 at 09:00 Atorvastatin Calcium (Lipitor) 20 mg QHS PO ; Start 08/24/21 at 21:00 Clopidogrel Bisulfate (Plavix) 75 mg 1X ONCE PO ; Start 08/24/21 at 11:30; Stop 08/24/21 at 11:31; Status UNV Clopidogrel Bisulfate (Plavix) 75 mg DAILYWBKFT PO ; Start 08/24/21 at 12:00 Allergies Allergies: Coded Allergies: No Known Drug Allergies (Unverified , 07/31/21) ROS Review of System Negative for fever, chills, weight loss, shortness of breath, chest pain, indige stion, hematochezia, melena, and dysuria. Full 14-point review of systems is negative. Physical Exam Physical Examination General: Well-developed, well-nourished white male in no acute distress HEENT: Normocephalic andatraumatic. Temporal arteriespulsatile and nontender. Neck: Supple without bruit, no meningismus Musculoskeletal: Stability:see neurologic. Gait exam:see neurologic. Tone:see neurologic.Strength:see neurologic. Neurological: Mental Status:Eyes open slightly to painful stimulation, no response to voice, no understanding of commands. Cranial Nerves:Pupils equal and reactive to light. There is no facial asymmetry.Reflexes:2+ and symmetric with flexor plantar responses. Motor:No withdrawal to pain. Coordination and gait:Not testable. Sensory:Not testable. Vitals VITALS Vital Signs Date Time Temp Pulse Resp B/P (MAP) Pulse Ox O2 Delivery O2 Flow Rate FiO2 08/24/21 11:24 99 Ventilator 08/24/21 11:00 51 30 115/51 08/24/21 08:00 97.9 97.9 08/23/21 12:05 4.0 Labs Labs Laboratory Tests Test 08/23/21 04:40 08/23/21 08:00 08/23/21 11:30 08/23/21 12:45 Creatinine 0.8 mg/dL (0.7-1.3) 1.0 mg/dL (0.7-1.3) Estimated GFR (Cockcroft-Gault) 97.6 75.5 O2 Saturation 99 % (92-99) Arterial Blood pH 7.48 (7.35-7.45) Arterial Blood pCO2 at Patient Temp 37 mmHg (35-46) Arterial Blood pO2 at Patient Temp 175 mmHg (65-108) Arterial Blood HCO3 26 mmol/L (21-28) Arterial Blood Base Excess 3 mmol/L (-3-3) FiO2 100% bipap White Blood Count 22.7 x10^3/uL (4.0-11.0) Red Blood Count 4.26 x10^6/uL (4.30-5.70) Hemoglobin 12.1 g/dL (13.0-17.5) Hematocrit 38.9 % (39.0-53.0) Mean Corpuscular Volume 91 fL (79-100) Mean Corpuscular Hemoglobin 28 pg (25-35) Mean Corpuscular Hemoglobin Concent 31 g/dL (31-37) Red Cell Distribution Width 14.7 % (11.5-14.5) Platelet Count 592 x10^3/uL (140-400) Neutrophils (%) (Auto) 72 % (31-73) Lymphocytes (%) (Auto) 22 % (24-48) Monocytes (%) (Auto) 5 % (0-9) Eosinophils (%) (Auto) 1 % (0-3) Basophils (%) (Auto) 1 % (0-3) Neutrophils # (Auto) 16.4 x10^3/uL (1.8-7.7) Lymphocytes # (Auto) 4.9 x10^3/uL (1.0-4.8) Monocytes # (Auto) 1.1 x10^3/uL (0.0-1.1) Eosinophils # (Auto) 0.2 x10^3/uL (0.0-0.7) Basophils # (Auto) 0.1 x10^3/uL (0.0-0.2) Erythrocyte Sedimentation Rate 68 (0-15) Sodium Level 151 mmol/L (136-145) Potassium Level 4.0 mmol/L (3.5-5.1) Chloride Level 111 mmol/L (98-107) Carbon Dioxide Level 29 mmol/L (21-32) Anion Gap 11 (6-14) Blood Urea Nitrogen 21 mg/dL (8-26) BUN/Creatinine Ratio 21 (6-20) Glucose Level 191 mg/dL (70-99) Calcium Level 7.8 mg/dL (8.5-10.1) Magnesium Level 2.2 mg/dL (1.8-2.4) Total Bilirubin 0.9 mg/dL (0.2-1.0) Aspartate Amino Transf (AST/SGOT) 42 U/L (15-37) Alanine Aminotransferase (ALT/SGPT) 46 U/L (16-63) Alkaline Phosphatase 133 U/L (46-116) Total Protein 6.2 g/dL (6.4-8.2) Albumin 2.2 g/dL (3.4-5.0) Albumin/Globulin Ratio 0.6 (1.0-1.7) Vancomycin Level Trough 13.9 mcg/mL (10.0-20.0) Vancomycin Last Dose Date 08/23/21 Vancomycin Last Dose Time 0400 Troponin I High Sensitivity 850 ng/L (4-75) Test 08/23/21 12:55 08/23/21 20:20 08/23/21 20:28 08/24/21 01:25 O2 Saturation 98 % (92-99) 94 % (92-99) Arterial Blood pH 7.18 (7.35-7.45) 7.22 (7.35-7.45) Arterial Blood pCO2 at Patient Temp 85 mmHg (35-46) 61 mmHg (35-46) Arterial Blood pO2 at Patient Temp 134 mmHg (65-108) 80 mmHg (65-108) Arterial Blood HCO3 31 mmol/L (21-28) 24 mmol/L (21-28) Arterial Blood Base Excess 0 mmol/L (-3-3) -4 mmol/L (-3-3) Prothrombin Time 16.3 SEC (11.7-14.0) Prothromb Time International Ratio 1.3 (0.8-1.1) Sodium Level 147 mmol/L (136-145) Potassium Level 3.3 mmol/L (3.5-5.1) Chloride Level 107 mmol/L (98-107) Carbon Dioxide Level 30 mmol/L (21-32) Anion Gap 10 (6-14) Blood Urea Nitrogen 24 mg/dL (8-26) Creatinine 1.1 mg/dL (0.7-1.3) Estimated GFR (Cockcroft-Gault) 67.6 BUN/Creatinine Ratio 22 (6-20) Glucose Level 205 mg/dL (70-99) Calcium Level 7.6 mg/dL (8.5-10.1) Magnesium Level 1.9 mg/dL (1.8-2.4) Total Bilirubin 1.0 mg/dL (0.2-1.0) Aspartate Amino Transf (AST/SGOT) 175 U/L (15-37) Alanine Aminotransferase (ALT/SGPT) 75 U/L (16-63) Alkaline Phosphatase 136 U/L (46-116) Troponin I High Sensitivity 00739 ng/L (4-75) Total Protein 6.5 g/dL (6.4-8.2) Albumin 2.0 g/dL (3.4-5.0) Albumin/Globulin Ratio 0.4 (1.0-1.7) FiO2 100 Heparin Anti-Xa Act, Unfractionated < 0.10 IU/mL (0.30-0.70) Test 08/24/21 05:30 08/24/21 07:30 08/24/21 08:24 White Blood Count 16.6 x10^3/uL (4.0-11.0) Red Blood Count 3.69 x10^6/uL (4.30-5.70) Hemoglobin 10.8 g/dL (13.0-17.5) Hematocrit 33.6 % (39.0-53.0) Mean Corpuscular Volume 91 fL (79-100) Mean Corpuscular Hemoglobin 29 pg (25-35) Mean Corpuscular Hemoglobin Concent 32 g/dL (31-37) Red Cell Distribution Width 14.6 % (11.5-14.5) Platelet Count 443 x10^3/uL (140-400) Neutrophils (%) (Auto) 94 % (31-73) Lymphocytes (%) (Auto) 4 % (24-48) Monocytes (%) (Auto) 1 % (0-9) Eosinophils (%) (Auto) 0 % (0-3) Basophils (%) (Auto) 0 % (0-3) Neutrophils # (Auto) 15.6 x10^3/uL (1.8-7.7) Lymphocytes # (Auto) 0.7 x10^3/uL (1.0-4.8) Monocytes # (Auto) 0.2 x10^3/uL (0.0-1.1) Eosinophils # (Auto) 0.0 x10^3/uL (0.0-0.7) Basophils # (Auto) 0.0 x10^3/uL (0.0-0.2) Sodium Level 146 mmol/L (136-145) Potassium Level 5.1 mmol/L (3.5-5.1) Chloride Level 111 mmol/L (98-107) Carbon Dioxide Level 29 mmol/L (21-32) Anion Gap 6 (6-14) Blood Urea Nitrogen 25 mg/dL (8-26) Creatinine 1.1 mg/dL (0.7-1.3) Estimated GFR (Cockcroft-Gault) 67.6 BUN/Creatinine Ratio 23 (6-20) Glucose Level 178 mg/dL (70-99) Calcium Level 7.4 mg/dL (8.5-10.1) Total Bilirubin 0.8 mg/dL (0.2-1.0) Aspartate Amino Transf (AST/SGOT) 323 U/L (15-37) Alanine Aminotransferase (ALT/SGPT) 85 U/L (16-63) Alkaline Phosphatase 120 U/L (46-116) Total Protein 5.7 g/dL (6.4-8.2) Albumin 1.8 g/dL (3.4-5.0) Albumin/Globulin Ratio 0.5 (1.0-1.7) Triglycerides Level 155 mg/dL (0-150) Cholesterol Level 160 mg/dL (0-200) LDL Cholesterol, Calculated 110 mg/dL (0-100) VLDL Cholesterol, Calculated 31 mg/dL (0-40) Non-HDL Cholesterol Calculated 141 mg/dL (0-129) HDL Cholesterol 19 mg/dL (40-60) Cholesterol/HDL Ratio 8.4 O2 Saturation 98 % (92-99) Arterial Blood pH 7.28 (7.35-7.45) Arterial Blood pCO2 at Patient Temp 57 mmHg (35-46) Arterial Blood pO2 at Patient Temp 123 mmHg (65-108) Arterial Blood HCO3 26 mmol/L (21-28) Arterial Blood Base Excess -1 mmol/L (-3-3) FiO2 100 Heparin Anti-Xa Act, Unfractionated < 0.10 IU/mL (0.30-0.70) Laboratory Tests Test 08/23/21 12:45 08/23/21 12:55 08/23/21 20:20 08/23/21 20:28 Troponin I High Sensitivity 850 ng/L (4-75) 31710 ng/L (4-75) O2 Saturation 98 % (92-99) 94 % (92-99) Arterial Blood pH 7.18 (7.35-7.45) 7.22 (7.35-7.45) Arterial Blood pCO2 at Patient Temp 85 mmHg (35-46) 61 mmHg (35-46) Arterial Blood pO2 at Patient Temp 134 mmHg (65-108) 80 mmHg (65-108) Arterial Blood HCO3 31 mmol/L (21-28) 24 mmol/L (21-28) Arterial Blood Base Excess 0 mmol/L (-3-3) -4 mmol/L (-3-3) Prothrombin Time 16.3 SEC (11.7-14.0) Prothromb Time International Ratio 1.3 (0.8-1.1) Sodium Level 147 mmol/L (136-145) Potassium Level 3.3 mmol/L (3.5-5.1) Chloride Level 107 mmol/L (98-107) Carbon Dioxide Level 30 mmol/L (21-32) Anion Gap 10 (6-14) Blood Urea Nitrogen 24 mg/dL (8-26) Creatinine 1.1 mg/dL (0.7-1.3) Estimated GFR (Cockcroft-Gault) 67.6 BUN/Creatinine Ratio 22 (6-20) Glucose Level 205 mg/dL (70-99) Calcium Level 7.6 mg/dL (8.5-10.1) Magnesium Level 1.9 mg/dL (1.8-2.4) Total Bilirubin 1.0 mg/dL (0.2-1.0) Aspartate Amino Transf (AST/SGOT) 175 U/L (15-37) Alanine Aminotransferase (ALT/SGPT) 75 U/L (16-63) Alkaline Phosphatase 136 U/L (46-116) Total Protein 6.5 g/dL (6.4-8.2) Albumin 2.0 g/dL (3.4-5.0) Albumin/Globulin Ratio 0.4 (1.0-1.7) FiO2 100 Test 08/24/21 01:25 08/24/21 05:30 08/24/21 07:30 08/24/21 08:24 Heparin Anti-Xa Act, Unfractionated < 0.10 IU/mL (0.30-0.70) < 0.10 IU/mL (0.30-0.70) White Blood Count 16.6 x10^3/uL (4.0-11.0) Red Blood Count 3.69 x10^6/uL (4.30-5.70) Hemoglobin 10.8 g/dL (13.0-17.5) Hematocrit 33.6 % (39.0-53.0) Mean Corpuscular Volume 91 fL (79-100) Mean Corpuscular Hemoglobin 29 pg (25-35) Mean Corpuscular Hemoglobin Concent 32 g/dL (31-37) Red Cell Distribution Width 14.6 % (11.5-14.5) Platelet Count 443 x10^3/uL (140-400) Neutrophils (%) (Auto) 94 % (31-73) Lymphocytes (%) (Auto) 4 % (24-48) Monocytes (%) (Auto) 1 % (0-9) Eosinophils (%) (Auto) 0 % (0-3) Basophils (%) (Auto) 0 % (0-3) Neutrophils # (Auto) 15.6 x10^3/uL (1.8-7.7) Lymphocytes # (Auto) 0.7 x10^3/uL (1.0-4.8) Monocytes # (Auto) 0.2 x10^3/uL (0.0-1.1) Eosinophils # (Auto) 0.0 x10^3/uL (0.0-0.7) Basophils # (Auto) 0.0 x10^3/uL (0.0-0.2) Sodium Level 146 mmol/L (136-145) Potassium Level 5.1 mmol/L (3.5-5.1) Chloride Level 111 mmol/L (98-107) Carbon Dioxide Level 29 mmol/L (21-32) Anion Gap 6 (6-14) Blood Urea Nitrogen 25 mg/dL (8-26) Creatinine 1.1 mg/dL (0.7-1.3) Estimated GFR (Cockcroft-Gault) 67.6 BUN/Creatinine Ratio 23 (6-20) Glucose Level 178 mg/dL (70-99) Calcium Level 7.4 mg/dL (8.5-10.1) Total Bilirubin 0.8 mg/dL (0.2-1.0) Aspartate Amino Transf (AST/SGOT) 323 U/L (15-37) Alanine Aminotransferase (ALT/SGPT) 85 U/L (16-63) Alkaline Phosphatase 120 U/L (46-116) Total Protein 5.7 g/dL (6.4-8.2) Albumin 1.8 g/dL (3.4-5.0) Albumin/Globulin Ratio 0.5 (1.0-1.7) Triglycerides Level 155 mg/dL (0-150) Cholesterol Level 160 mg/dL (0-200) LDL Cholesterol, Calculated 110 mg/dL (0-100) VLDL Cholesterol, Calculated 31 mg/dL (0-40) Non-HDL Cholesterol Calculated 141 mg/dL (0-129) HDL Cholesterol 19 mg/dL (40-60) Cholesterol/HDL Ratio 8.4 O2 Saturation 98 % (92-99) Arterial Blood pH 7.28 (7.35-7.45) Arterial Blood pCO2 at Patient Temp 57 mmHg (35-46) Arterial Blood pO2 at Patient Temp 123 mmHg (65-108) Arterial Blood HCO3 26 mmol/L (21-28) Arterial Blood Base Excess -1 mmol/L (-3-3) FiO2 100 Assessment/Plan Assessment/Plan Impression: Anoxic encephalopathy, CODE BLUE, in the setting of Covid pneumonia with respiratory failure, hyponatremia, atrial fibrillation, multiorgan damage Recommendations: Too unstable to undergo head CT I understand he is going back to the [facility] [employer] [facility] today If he survives, we can check an electroencephalogram next week. Thank you for letting me help with the unfortunate patient's care. DEREK TELLEZ MD Aug 24, 2021 12:16
[2021-08-24] MEDS: fentaNYL HIGH DOSE PCA 55 ML IV PRN (12:57)
[2021-08-24] MEDS: CLOPIDOGREL BISULFATE 75 MG TABLET PO SCH (12:59)
[2021-08-24] MEDS: AMIODARONE HCL 200 MG TABLET. PO SCH (12:59)
--- NOTE | 2021-08-24 15:43 | NUR ---
SS following up with discharge planning. SS reviewed pt chart and discussed with pt RN. Pt is currently on the vent at 100%. COVID19 recovered. Pt on Fentanyl, Versed, and Heparin. Pt on IV Daptomycin, PO Zyvox, IV Zosyn, IV Lasix, IV Keppra, and IV Solu-Medrol. Not stable. SS will continue to follow for discharge planning.
[2021-08-24] MEDS: HEPARIN 25,000UTS/250ML PREMIX 250 ML IV PRN (15:52)
--- NOTE | 2021-08-24 16:00 | RAD ---
MR#: [id number] Date of Study: 08/24/2021 Ordering Physician: ISIS GARCIA, Referring Physician: ISIS GARCIA, Tech: John Balderas MBA, RDMS, RVT, RDCS, RTR APPROVED REPORT Patient Location: OUT-PATIENT Indications PAD VELOCITY AND DOPPLER WAVEFORM ANALYSIS RIGHT cm/secWaveformSeverity LEFT cm/secWaveform Severity dCFA dCFA 108.0 Prof Fem Art. Prof Fem Art. 71.0 Fem Art Prox. Fem Art Prox. 79.0 Fem Art Mid. Fem Art Mid. 96.0 Fem Art Dist. Fem Art Dist. 105.0 Pop Art(Fossa) Pop Art(AK) 94.0 SIEBEL ARCHITECT Prox. SIEBEL ARCHITECT Prox. 90.0 SIEBEL ARCHITECT Dist. SIEBEL ARCHITECT Dist. 112.0 Per Art Mid. Per Art Mid. 76.0 GRACE Prox. GRACE Prox. 72.0 DPA DPA 51 Findings Grayscale images of the left lower extremity arterial vessels demonstrates mild diffuse atheroscleros is. Spectral waveforms are notable for mostly biphasic waveforms without any obvious stenosis noted. Wav eforms are partially distorted due to aortic balloon pump placement but otherwise no focal stenosis i dentified. Critical Notification Critical Value: No <Conclusion> 1. No significant left lower extremity occlusive disease. Signed by : Javier Julian, Electronically Approved : 08/24/2021 15:59:59
[2021-08-24] MEDS: MIDAZOLAM 100mg/100ml NS BAG 100 ML IV PRN (17:50)
--- NOTE | 2021-08-24 18:50 | CARD ---
MR#: [id number] Date of Study: 08/23/2021 Ordering Physician: TEDDY JULIAN, Referring Physician: TEDDY JULIAN, Tech: RT Mehdi(R)() APPROVED REPORT Technologist: Preethi Palacio RT(R)() Nurse: Gala Cedillo RN Procedure(s) performed: FLUORO TIME:31.9 MIN DOSE: 172.54 Gycm Contrast: 197cc Class IV Left heart catheterization, coronary angiography, attempted PCI of the RCA, intra-aortic balloon pump placement [facility] Clinical Frailty Scale [facility] Clinical Frailty Scale: Severely Frail Heart Failure Heart Failure: Yes If Yes, Newly Diagnosed: No If Yes, HF Type: Diastolic Systolic CASE TECHNIQUE During this case, Fluoroscopy and low osmolar contrast were used for imaging. Specimen(s) Removed: N/ A Estimated Blood loss: 15 cc's. PROCEDURE NARRATIVE Clinical information: 65-year-old male who was been admitted to the hospital for several weeks in the setting of coronaviru s pneumonia developed acute tachyarrhythmia and subsequent to further evaluation he was found to have inferior ST elevations and therefore was taken emergently to the cardiac catheterization laboratory. Procedure details: After appropriate informed consent from the family the right wrist and right groin were prepped and d raped in usual sterile fashion. Prior to obtaining arterial access the patient began to have hypoten lacey and required initiation of phenylephrine drip. He was also noted to be tachycardic with heart r ates over 120. Under 1% lidocaine local anesthesia a 6 Salvadorean sheath was placed in the right radial artery. Diagnostic angiography was then performed with a 6 Salvadorean TIG catheter. A left ventricular end-diastolic pressure was obtained with a TIG catheter and a pullback was performed. Findings: Aorta 100/50 LVEDP 20 mmHg No LV to aortic pullback gradient Coronary angiography: Left main is a large-caliber vessel with normal angiographic appearance LAD is a moderate caliber vessel with a proximal 50% stenosis D1 is a small caliber vessel with proximal diffuse 70% stenosis Left circumflex is a small caliber nondominant vessel with mild luminal irregularities RCA is a very large caliber dominant vessel with a proximal 90% stenosis followed by distal embolic o cclusions in the posterior descending and RPL branches. Interventional technique: Heparin and tirofiban were used for anticoagulation. Prior to initiation of the PCI a intervertebral pump was placed through the right groin. Under 1% lidocaine local anesthesia a 8 Salvadorean sheath was placed in the right common femoral artery and a 5 Salvadorean sheath was placed in the right common femora l vein via the modified Seldinger technique. Next, a 7.5 Salvadorean 40 cc intra-aortic balloon pump was placed with one-to-one augmentation. Multiple guide catheters including AL-1, AL 0.75, JR4 did not p rovide adequate support and ultimately a CASH guide catheter was used to engage the right coronary art silvana. A prowater wire was initially unable to traverse the distal RPDA stenosis which was diffusely d iseased and thrombotic. Next there was a significant tortuosity involving access into the RPL branch and after multiple attempts with a Prowater wire, 2.0 mm balloon and a Corsair catheter a Choice PT wire was ultimately able to be wired into the RPL branch using a hairpin technique. Next, despite ef forts with a Prowater and Choice PT wire the distal RPL occlusion could not be traversed. Given risk of perforation further intervention was deferred. The proximal RCA lesion was not stented due to co ncern for lack of outflow. At case completion the catheters and sheaths were removed. Intervertebra l pump counterpulsation was continued and the patient was in critical but stable condition and moved to the ICU on 2 vasopressors. No acute complications. Conclusion 1. Inferior STEMI secondary to embolic occlusion likely in the setting of coronavirus pneumonia 2. Two-vessel coronary artery disease involving the LAD and RCA 3. Acute decompensated systolic and diastolic heart failure with cardiogenic shock requiring initiat ion of inotropic support and successful placement of a 40 cc intra-aortic balloon pump via the right common femoral artery 4. Failed right coronary artery revascularization secondary to excessive thrombotic burden Recommendations 1. Continue anticoagulation with heparin drip 2. Continue antiplatelet therapy with aspirin and Plavix. 3. Depending on patient's neurologic recovery given his critically ill status we will reconsider PCI of the proximal RCA and reevaluation in 48 to 72 hours. Signed by : Teddy Julian, Electronically Approved : 08/24/2021 18:50:09
[2021-08-24] MEDS: ATORVASTATIN CALCIUM 20 MG TABLET PO SCH (20:28)
[2021-08-25] VITALS (24 sets, daily range): BP systolic 97–150; BP diastolic 45–68
[2021-08-25] MEDS: PIPERACILLIN/TAZOBACTAM 4.5 GM in IV DEXTROSE 5% 100ML 100 ML IV SCH ×4 (05:42→23:49)
[2021-08-25] MEDS: methylPREDNISolone SOD SUCC PF 125 MG/2 ML VIAL. IV SCH ×3 (05:42→22:06)
[2021-08-25 06:17] LABS: HEMATOCRIT 28.7 % (39.0-53.0); HEMOGLOBIN 9.5 g/dL (13.0-17.5); RED BLOOD COUNT 3.17 x10^6/uL (4.30-5.70); RED CELL DISTRIBUTION WIDTH 14.2 % (11.5-14.5); WHITE BLOOD COUNT 8.6 x10^3/uL (4.0-11.0)
[2021-08-25 06:35] LABS: ALBUMIN 1.7 g/dL (3.4-5.0); ALBUMIN/GLOBULIN RATIO 0.5 (1.0-1.7); CALCIUM 7.3 mg/dL (8.5-10.1); CREATININE 1.2 mg/dL (0.7-1.3); GFR 61.1; POTASSIUM 3.4 mmol/L (3.5-5.1); TOTAL BILIRUBIN 0.5 mg/dL (0.2-1.0); TOTAL PROTEIN 5.1 g/dL (6.4-8.2)
[2021-08-25] MEDS: FAMOTIDINE 20 MG/2 ML VIAL IVP SCH ×2 (07:56→21:21)
[2021-08-25] MEDS: FUROSEMIDE 40 MG/4 ML VIAL. IVP SCH (07:56)
[2021-08-25] MEDS: AMIODARONE HCL 200 MG TABLET. PO SCH (07:57)
[2021-08-25] MEDS: ASPIRIN CHEWABLE 81 MG TABLET. PO SCH (07:58)
[2021-08-25] MEDS: CLOPIDOGREL BISULFATE 75 MG TABLET PO SCH (07:58)
[2021-08-25] MEDS: MIDAZOLAM 100mg/100ml NS BAG 100 ML IV PRN ×2 (08:02→16:35)
[2021-08-25] MEDS: HEPARIN 25,000UTS/250ML PREMIX 250 ML IV PRN (08:04)
[2021-08-25] MEDS: LINEZOLID 600 MG TABLET PO SCH ×2 (08:04→21:21)
[2021-08-25 08:22] LABS: BASE EXCESS ABG -2 mmol/L (-3-3); HCO3 ABG 25 mmol/L (21-28); PCO2 ABG 53 mmHg (35-46); PO2 ABG 118 mmHg (65-108); SAT O2 ABG 98 % (92-99)
[2021-08-25 08:33] LABS: FIO2 ABG 100/AC30 400 +7
--- NOTE | 2021-08-25 08:51 | RAD ---
EXAM: Chest, single view. HISTORY: Respiratory failure. COMPARISON: 08/23/2021 FINDINGS: Frontal views of the chest are obtained. Similar right PICC with the tip overlying the expe cted location of the superior cavoatrial junction. Similar positioned endotracheal tube within the tr achea. Nasogastric tube terminates outside the field of view likely terminating within the stomach. S imilar diffuse bilateral infiltrates. There is no pneumothorax. Stable cardiac silhouette. No sizable pleural effusion. No acute osseous process. IMPRESSION: 1. Stable support tubes and lines. 2. Similar diffuse airspace disease. Electronically signed by: Lukasz Madrid DO (08/25/2021 8:49 AM) [facility]
--- NOTE | 2021-08-25 09:02 | PN ---
DATE: 08/25/2021 SUBJECTIVE: The patient continues to be intubated and mechanically ventilated and sedated. He is off pressor agents. However, he continued to have intraaortic balloon pump. PHYSICAL EXAMINATION: GENERAL: When I examined him, he was pale, no jaundice, cyanosis or thyromegaly. No jugular venous distention. No limb edema. VITAL SIGNS: His heart rate was 63, blood pressure 144/62, temperature was 97.8, respiratory rate was 30 and oxygen saturation was 100% on FiO2 of 90%. HEAD, EYES, EARS, NOSE, AND THROAT: Showed normocephalic, atraumatic. Has orotracheal and orogastric tube in place. NECK: Supple. HEART: Normal first and second heart sounds. No gallop or murmur. CHEST: Central trachea with equal bilateral chest expansion, air entry, vesicular breath sounds. No crepitation or rhonchi anteriorly. ABDOMEN: Distended, soft, nontender. NEUROLOGIC: He is actually more awake, alert, responding appropriately. He moves all extremities spontaneously. His intake over the last 24 hours was 2400, output was 2000. LABORATORY DATA: As of this morning, his white cell count was 8600, hemoglobin 9.5, hematocrit 28.7, MCV 91, and platelet count 283,000. Serum sodium was 150, potassium 3.4, chloride 113, bicarbonate 29, anion gap of 8, BUN 36, creatinine 1.2. Estimated GFR was 61 mL per minute. His glucose was 155, calcium was 7.3. Total bilirubin is normal. AST, ALT, alkaline phosphatase slightly elevated, but trending down. His CK was 376. Total protein 5.1, albumin was 1.7. ASSESSMENT: 1. Status post code blue cardiac arrest, likely from hypoxia associated with COVID and acute myocardial infarction. He went into ventricular tachycardia that was shocked and he also went into ventricular fibrillation, treated with one round of epinephrine with return of spontaneous circulation. 2. Acute on chronic hypoxic respiratory failure, acute respiratory distress and pneumonia, together with chronic obstructive pulmonary disease. 3. Acute exacerbation of chronic obstructive pulmonary disease. 4. COVID-19 pneumonia. 5. Mild hyponatremia. 6. Atrial fibrillation with rapid ventricular response. 7. Inferior ST segment myocardial infarction. Apparently, the patient has no prior history of coronary artery disease. 8. Shock, multifactorial including cardiogenic as well as septic. 9. The patient underwent emergent left heart catheterization and was found to have occluded right coronary artery. No intervention. Apparently multiple attempts were made to traverse the distal thrombotic occlusion without success due to the significant risk for rupture of the thrombotic, balloon angioplasty was out of concern for perforation. The more proximal stenosis was not intervened upon due to risk of significant embolic occlusion and therefore, the patient was treated with intravenous anticoagulant and antiplatelet therapy. PLAN: 1. To continue obviously with IV antibiotic. He is now on daptomycin as well as linezolid and piperacillin/tazobactam. Continue with heparin drip. 2. Continue with tirofiban drip. 3. He is off now Levophed. Amiodarone drip was discontinued as he became bradycardic. He has also what seems to be seizure disorder for which he was started on Keppra. ALEJANDRO DR: Vannessa TID: [id number]
--- NOTE | 2021-08-25 09:10 | PDOC ---
PULMONARY PROGRESS NOTES DATE: 08/25/21 TIME: 09:02 Subjective Patient remains intubated, and sedated, on heparin drip and IABP 1:1 Status post cardiac arrest/intubated on 08/23/2021 Patient is currently off vasopressors medication No overnight concerns from nursing Vitals Vital Signs Date Time Temp Pulse Resp B/P (MAP) Pulse Ox O2 Delivery O2 Flow Rate FiO2 08/25/21 07:57 63 104/62 08/25/21 07:39 100 Ventilator 08/25/21 07:00 30 08/25/21 04:00 97.8 97.8 Comments Patient remains intubated and sedated, unable to report review of systems at this time. Lungs: Crackles Cardiovascular: S1, S2 Abdomen: Soft, Non-tender Extremities: No Edema Skin: Warm Labs Laboratory Tests Test 08/23/21 11:30 08/23/21 12:45 08/23/21 12:55 08/23/21 20:20 White Blood Count 22.7 x10^3/uL (4.0-11.0) Red Blood Count 4.26 x10^6/uL (4.30-5.70) Hemoglobin 12.1 g/dL (13.0-17.5) Hematocrit 38.9 % (39.0-53.0) Mean Corpuscular Volume 91 fL (79-100) Mean Corpuscular Hemoglobin 28 pg (25-35) Mean Corpuscular Hemoglobin Concent 31 g/dL (31-37) Red Cell Distribution Width 14.7 % (11.5-14.5) Platelet Count 592 x10^3/uL (140-400) Neutrophils (%) (Auto) 72 % (31-73) Lymphocytes (%) (Auto) 22 % (24-48) Monocytes (%) (Auto) 5 % (0-9) Eosinophils (%) (Auto) 1 % (0-3) Basophils (%) (Auto) 1 % (0-3) Neutrophils # (Auto) 16.4 x10^3/uL (1.8-7.7) Lymphocytes # (Auto) 4.9 x10^3/uL (1.0-4.8) Monocytes # (Auto) 1.1 x10^3/uL (0.0-1.1) Eosinophils # (Auto) 0.2 x10^3/uL (0.0-0.7) Basophils # (Auto) 0.1 x10^3/uL (0.0-0.2) Erythrocyte Sedimentation Rate 68 (0-15) Sodium Level 151 mmol/L (136-145) 147 mmol/L (136-145) Potassium Level 4.0 mmol/L (3.5-5.1) 3.3 mmol/L (3.5-5.1) Chloride Level 111 mmol/L (98-107) 107 mmol/L (98-107) Carbon Dioxide Level 29 mmol/L (21-32) 30 mmol/L (21-32) Anion Gap 11 (6-14) 10 (6-14) Blood Urea Nitrogen 21 mg/dL (8-26) 24 mg/dL (8-26) Creatinine 1.0 mg/dL (0.7-1.3) 1.1 mg/dL (0.7-1.3) Estimated GFR (Cockcroft-Gault) 75.5 67.6 BUN/Creatinine Ratio 21 (6-20) 22 (6-20) Glucose Level 191 mg/dL (70-99) 205 mg/dL (70-99) Calcium Level 7.8 mg/dL (8.5-10.1) 7.6 mg/dL (8.5-10.1) Magnesium Level 2.2 mg/dL (1.8-2.4) 1.9 mg/dL (1.8-2.4) Total Bilirubin 0.9 mg/dL (0.2-1.0) 1.0 mg/dL (0.2-1.0) Aspartate Amino Transf (AST/SGOT) 42 U/L (15-37) 175 U/L (15-37) Alanine Aminotransferase (ALT/SGPT) 46 U/L (16-63) 75 U/L (16-63) Alkaline Phosphatase 133 U/L (46-116) 136 U/L (46-116) Total Protein 6.2 g/dL (6.4-8.2) 6.5 g/dL (6.4-8.2) Albumin 2.2 g/dL (3.4-5.0) 2.0 g/dL (3.4-5.0) Albumin/Globulin Ratio 0.6 (1.0-1.7) 0.4 (1.0-1.7) Vancomycin Level Trough 13.9 mcg/mL (10.0-20.0) Vancomycin Last Dose Date 08/23/21 Vancomycin Last Dose Time 0400 Troponin I High Sensitivity 850 ng/L (4-75) 15149 ng/L (4-75) O2 Saturation 98 % (92-99) Arterial Blood pH 7.18 (7.35-7.45) Arterial Blood pCO2 at Patient Temp 85 mmHg (35-46) Arterial Blood pO2 at Patient Temp 134 mmHg (65-108) Arterial Blood HCO3 31 mmol/L (21-28) Arterial Blood Base Excess 0 mmol/L (-3-3) Prothrombin Time 16.3 SEC (11.7-14.0) Prothromb Time International Ratio 1.3 (0.8-1.1) Test 08/23/21 20:28 08/24/21 01:25 08/24/21 05:30 08/24/21 05:50 O2 Saturation 94 % (92-99) Arterial Blood pH 7.22 (7.35-7.45) Arterial Blood pCO2 at Patient Temp 61 mmHg (35-46) Arterial Blood pO2 at Patient Temp 80 mmHg (65-108) Arterial Blood HCO3 24 mmol/L (21-28) Arterial Blood Base Excess -4 mmol/L (-3-3) FiO2 100 Heparin Anti-Xa Act, Unfractionated < 0.10 IU/mL (0.30-0.70) White Blood Count 16.6 x10^3/uL (4.0-11.0) Red Blood Count 3.69 x10^6/uL (4.30-5.70) Hemoglobin 10.8 g/dL (13.0-17.5) Hematocrit 33.6 % (39.0-53.0) Mean Corpuscular Volume 91 fL (79-100) Mean Corpuscular Hemoglobin 29 pg (25-35) Mean Corpuscular Hemoglobin Concent 32 g/dL (31-37) Red Cell Distribution Width 14.6 % (11.5-14.5) Platelet Count 443 x10^3/uL (140-400) Neutrophils (%) (Auto) 94 % (31-73) Lymphocytes (%) (Auto) 4 % (24-48) Monocytes (%) (Auto) 1 % (0-9) Eosinophils (%) (Auto) 0 % (0-3) Basophils (%) (Auto) 0 % (0-3) Neutrophils # (Auto) 15.6 x10^3/uL (1.8-7.7) Lymphocytes # (Auto) 0.7 x10^3/uL (1.0-4.8) Monocytes # (Auto) 0.2 x10^3/uL (0.0-1.1) Eosinophils # (Auto) 0.0 x10^3/uL (0.0-0.7) Basophils # (Auto) 0.0 x10^3/uL (0.0-0.2) Sodium Level 146 mmol/L (136-145) Potassium Level 5.1 mmol/L (3.5-5.1) Chloride Level 111 mmol/L (98-107) Carbon Dioxide Level 29 mmol/L (21-32) Anion Gap 6 (6-14) Blood Urea Nitrogen 25 mg/dL (8-26) Creatinine 1.1 mg/dL (0.7-1.3) Estimated GFR (Cockcroft-Gault) 67.6 BUN/Creatinine Ratio 23 (6-20) Glucose Level 178 mg/dL (70-99) Calcium Level 7.4 mg/dL (8.5-10.1) Total Bilirubin 0.8 mg/dL (0.2-1.0) Aspartate Amino Transf (AST/SGOT) 323 U/L (15-37) Alanine Aminotransferase (ALT/SGPT) 85 U/L (16-63) Alkaline Phosphatase 120 U/L (46-116) Total Protein 5.7 g/dL (6.4-8.2) Albumin 1.8 g/dL (3.4-5.0) Albumin/Globulin Ratio 0.5 (1.0-1.7) Triglycerides Level 155 mg/dL (0-150) Cholesterol Level 160 mg/dL (0-200) LDL Cholesterol, Calculated 110 mg/dL (0-100) VLDL Cholesterol, Calculated 31 mg/dL (0-40) Non-HDL Cholesterol Calculated 141 mg/dL (0-129) HDL Cholesterol 19 mg/dL (40-60) Cholesterol/HDL Ratio 8.4 Coronavirus (COVID-19)(PCR) Positive (NOT DETECTD) Test 08/24/21 07:30 08/24/21 08:24 08/24/21 15:38 08/24/21 21:30 O2 Saturation 98 % (92-99) Arterial Blood pH 7.28 (7.35-7.45) Arterial Blood pCO2 at Patient Temp 57 mmHg (35-46) Arterial Blood pO2 at Patient Temp 123 mmHg (65-108) Arterial Blood HCO3 26 mmol/L (21-28) Arterial Blood Base Excess -1 mmol/L (-3-3) FiO2 100 Heparin Anti-Xa Act, Unfractionated < 0.10 IU/mL (0.30-0.70) 0.30 IU/mL (0.30-0.70) 0.30 IU/mL (0.30-0.70) Test 08/25/21 05:40 08/25/21 08:00 White Blood Count 8.6 x10^3/uL (4.0-11.0) Red Blood Count 3.17 x10^6/uL (4.30-5.70) Hemoglobin 9.5 g/dL (13.0-17.5) Hematocrit 28.7 % (39.0-53.0) Mean Corpuscular Volume 91 fL (79-100) Mean Corpuscular Hemoglobin 30 pg (25-35) Mean Corpuscular Hemoglobin Concent 33 g/dL (31-37) Red Cell Distribution Width 14.2 % (11.5-14.5) Platelet Count 283 x10^3/uL (140-400) Heparin Anti-Xa Act, Unfractionated 0.22 IU/mL (0.30-0.70) Sodium Level 150 mmol/L (136-145) Potassium Level 3.4 mmol/L (3.5-5.1) Chloride Level 113 mmol/L (98-107) Carbon Dioxide Level 29 mmol/L (21-32) Anion Gap 8 (6-14) Blood Urea Nitrogen 36 mg/dL (8-26) Creatinine 1.2 mg/dL (0.7-1.3) Estimated GFR (Cockcroft-Gault) 61.1 BUN/Creatinine Ratio 30 (6-20) Glucose Level 155 mg/dL (70-99) Calcium Level 7.3 mg/dL (8.5-10.1) Total Bilirubin 0.5 mg/dL (0.2-1.0) Aspartate Amino Transf (AST/SGOT) 155 U/L (15-37) Alanine Aminotransferase (ALT/SGPT) 67 U/L (16-63) Alkaline Phosphatase 100 U/L (46-116) Creatine Kinase 376 U/L (39-308) Total Protein 5.1 g/dL (6.4-8.2) Albumin 1.7 g/dL (3.4-5.0) Albumin/Globulin Ratio 0.5 (1.0-1.7) O2 Saturation 98 % (92-99) Arterial Blood pH 7.29 (7.35-7.45) Arterial Blood pCO2 at Patient Temp 53 mmHg (35-46) Arterial Blood pO2 at Patient Temp 118 mmHg (65-108) Arterial Blood HCO3 25 mmol/L (21-28) Arterial Blood Base Excess -2 mmol/L (-3-3) FiO2 100/ac30 400 +7 Laboratory Tests Test 08/24/21 15:38 08/24/21 21:30 08/25/21 05:40 08/25/21 08:00 Heparin Anti-Xa Act, Unfractionated 0.30 IU/mL (0.30-0.70) 0.30 IU/mL (0.30-0.70) 0.22 IU/mL (0.30-0.70) White Blood Count 8.6 x10^3/uL (4.0-11.0) Red Blood Count 3.17 x10^6/uL (4.30-5.70) Hemoglobin 9.5 g/dL (13.0-17.5) Hematocrit 28.7 % (39.0-53.0) Mean Corpuscular Volume 91 fL (79-100) Mean Corpuscular Hemoglobin 30 pg (25-35) Mean Corpuscular Hemoglobin Concent 33 g/dL (31-37) Red Cell Distribution Width 14.2 % (11.5-14.5) Platelet Count 283 x10^3/uL (140-400) Sodium Level 150 mmol/L (136-145) Potassium Level 3.4 mmol/L (3.5-5.1) Chloride Level 113 mmol/L (98-107) Carbon Dioxide Level 29 mmol/L (21-32) Anion Gap 8 (6-14) Blood Urea Nitrogen 36 mg/dL (8-26) Creatinine 1.2 mg/dL (0.7-1.3) Estimated GFR (Cockcroft-Gault) 61.1 BUN/Creatinine Ratio 30 (6-20) Glucose Level 155 mg/dL (70-99) Calcium Level 7.3 mg/dL (8.5-10.1) Total Bilirubin 0.5 mg/dL (0.2-1.0) Aspartate Amino Transf (AST/SGOT) 155 U/L (15-37) Alanine Aminotransferase (ALT/SGPT) 67 U/L (16-63) Alkaline Phosphatase 100 U/L (46-116) Creatine Kinase 376 U/L (39-308) Total Protein 5.1 g/dL (6.4-8.2) Albumin 1.7 g/dL (3.4-5.0) Albumin/Globulin Ratio 0.5 (1.0-1.7) O2 Saturation 98 % (92-99) Arterial Blood pH 7.29 (7.35-7.45) Arterial Blood pCO2 at Patient Temp 53 mmHg (35-46) Arterial Blood pO2 at Patient Temp 118 mmHg (65-108) Arterial Blood HCO3 25 mmol/L (21-28) Arterial Blood Base Excess -2 mmol/L (-3-3) FiO2 100/ac30 400 +7 Impression . 1. Acute hypoxic respiratory failure secondary to COVID-19 pneumonia, acute respiratory distress syndrome and possible underlying fibrosis and emphysema., Extubated 08/20, reintubated 08/23 status post CODE BLUE 2. Abnormal CT chest 3. Hypernatremia 4. Suspected underlying severe chronic obstructive pulmonary disease. 5. COVID-19 viral pneumonia.--- Covid recovered 6. Abnormal chest x-ray with bilateral diffuse infiltrates related to COVID-19 viral pneumonia.--- Covid recovered 7. Patient reintubated 08/23, status post CODE BLUE 8. Abnormal x-ray from 08/15, possible ARDS, possible pulmonary edema, possible aspiration 9. ST elevation CO status post intra-aortic balloon pump--08/23/2021 10. Emergent cardiac catheterization revealing 90% stenotic lesion 11. Echocardiogram revealing ejection fraction of 35 to 40% pulmonary artery pressure of 34 inferior septal wall hypokinesis 12. Bacteremia Staph epidermidis Plan . Updated 08/25/2021 Continue current ventilatory support, assist-control 30/400./6/90% Follow chest x-ray/ABG, make changes as indicated Status post emergent cardiac catheterization with intra-aortic balloon pump 1:1, follow cardiology recommendations, continue heparin drip Cardiac catheterization showed: revealed thrombotic distal right posterior descending artery and right posterior lateral artery occlusion. There was moderate 50% proximal and 90% mid stenosis appeared to have significant thrombotic burden with ectasia and dilation of the coronary artery Continue diuresis per cardiology Continue vasopressor medications as needed to keep systolic blood pressure greater than 90 and MAP greater than 65, patient is currently off pressors at this time. Continue daptomycin, follow infectious disease recommendations in regards to bacteremia Follow neurology recommendations Start tube feeding, consult dietitian for recommendations DVT/GI prophylaxis: Pepcid/heparin drip Critical Care time 35 minutes CODE STATUS: Full Disposition: Overall prognosis/meaningful recovery is poor at this time. Updated to 11 Patient underwent emergent cardiac catheterization CAD: LHC revealed thrombotic distal right posterior descending artery and right posterior lateral artery occlusion. There was moderate 50% proximal and 90% mid stenosis appeared to have significant thrombotic burden with ectasia and dilation of the coronary artery Continue current support assist-control 100% FiO2 7 of PEEP Continue intra-aortic balloon pump Follow cardiology input Discussed with at the bedside Prognosis is dismal Discontinue Haldol, to avoid cardiac arrhythmias Antibiotics per cardiology Follow-up on cultures Updated 08/23 Patient coded initially saturations started to drop, heart rate started to drop then he went into V. fib, ACLS protocol followed see CODE BLUE sheet Chest x-ray reviewed, will now cover for possible aspiration, pulmonary edema, ARDS Repeat PCR testing for Covid Discussed with and daughter at the bedside Repeat arterial blood gas Echocardiogram ESR Total cumulative critical care time of 30 minutes REBECCA DUGGAN MD Aug 25, 2021 09:10
[2021-08-25] MEDS: POTASSIUM CHLORIDE 20MEQ 100 ML IV SCH ×3 (09:48→13:32)
[2021-08-25] MEDS: IV DEXTROSE 5%-LACT RINGERS 1,000 ML IV SCH (09:49)
[2021-08-25] MEDS: fentaNYL HIGH DOSE PCA 55 ML IV PRN (10:53)
[2021-08-25] MEDS: DAPTOmycin (GENERIC) IVPB 520 MG in IV NORMAL SALINE 50ML 50 ML IV SCH (12:44)
--- NOTE | 2021-08-25 13:20 | PDOC ---
Infectious Disease Note Subjective: Subjective Patient intubated/sedated Discussed with RN Vital Signs: Vital Signs Vital Signs Date Time Temp Pulse Resp B/P (MAP) Pulse Ox O2 Delivery O2 Flow Rate FiO2 08/25/21 13:00 60 30 115/53 99 Ventilator 08/25/21 12:00 97.9 97.9 Physical Exam: PHYSICAL EXAM GENERAL: Intubated and sedated, opens eyes transiently to verbal stimuli. Does not follow any commands HEENT: No conjunctival petechia. ETT, OGT tube present. NECK: Supple. LUNGS: Coarse breath sounds in the bases, otherwise clear. HEART: S1, S2, irregular. I could not appreciate any murmurs. ABDOMEN: Soft, nontender, nondistended. Bowel sounds present. GENITOURINARY: Berumen in place. EXTREMITIES: No edema, no cyanosis. Right groin catheter site clean. Right upper extremity PICC line placed on 08/23/2021. DERMATOLOGIC: Warm, dry, no generalized rash. NEUROLOGIC: Unable to assess. Medications: Inpatient Meds: Medications reviewed. Labs: Lab Laboratory Tests Test 08/24/21 15:38 08/24/21 21:30 08/25/21 05:40 08/25/21 08:00 Heparin Anti-Xa Act, Unfractionated 0.30 IU/mL (0.30-0.70) 0.30 IU/mL (0.30-0.70) 0.22 IU/mL (0.30-0.70) White Blood Count 8.6 x10^3/uL (4.0-11.0) Red Blood Count 3.17 x10^6/uL (4.30-5.70) Hemoglobin 9.5 g/dL (13.0-17.5) Hematocrit 28.7 % (39.0-53.0) Mean Corpuscular Volume 91 fL (79-100) Mean Corpuscular Hemoglobin 30 pg (25-35) Mean Corpuscular Hemoglobin Concent 33 g/dL (31-37) Red Cell Distribution Width 14.2 % (11.5-14.5) Platelet Count 283 x10^3/uL (140-400) Sodium Level 150 mmol/L (136-145) Potassium Level 3.4 mmol/L (3.5-5.1) Chloride Level 113 mmol/L (98-107) Carbon Dioxide Level 29 mmol/L (21-32) Anion Gap 8 (6-14) Blood Urea Nitrogen 36 mg/dL (8-26) Creatinine 1.2 mg/dL (0.7-1.3) Estimated GFR (Cockcroft-Gault) 61.1 BUN/Creatinine Ratio 30 (6-20) Glucose Level 155 mg/dL (70-99) Calcium Level 7.3 mg/dL (8.5-10.1) Total Bilirubin 0.5 mg/dL (0.2-1.0) Aspartate Amino Transf (AST/SGOT) 155 U/L (15-37) Alanine Aminotransferase (ALT/SGPT) 67 U/L (16-63) Alkaline Phosphatase 100 U/L (46-116) Creatine Kinase 376 U/L (39-308) Total Protein 5.1 g/dL (6.4-8.2) Albumin 1.7 g/dL (3.4-5.0) Albumin/Globulin Ratio 0.5 (1.0-1.7) O2 Saturation 98 % (92-99) Arterial Blood pH 7.29 (7.35-7.45) Arterial Blood pCO2 at Patient Temp 53 mmHg (35-46) Arterial Blood pO2 at Patient Temp 118 mmHg (65-108) Arterial Blood HCO3 25 mmol/L (21-28) Arterial Blood Base Excess -2 mmol/L (-3-3) FiO2 100/ac30 400 +7 Test 08/25/21 12:15 Heparin Anti-Xa Act, Unfractionated 0.31 IU/mL (0.30-0.70) Objective: Assessment: Fever multifactorial s/p code ,possible aspiration pattern improved 1. Gram-positive bacteremia,MRSE 08/22/2021.Central line removed 2. Acute hypoxic respiratory failure. 3. COVID-19 pneumonia. 4. Chronic obstructive pulmonary disease with possible underlying pulmonary fibrosis, aspiration pneumonia. 5. Status post code atrial fibrillation with rapid ventricular response, ventricular fibrillation, status post defibrillation, epinephrine, bicarbonate drip, status post cardiac catheterization. IABP placement. 6. Severe protein-calorie malnutrition. 7. Abnormal liver function tests, likely shock liver. 8. Anemia. 9. Encephalopathy likely anoxic 10.Electrolyte abn 11.Leucocytosis improving Plan: Plan of Care cont daptomycin,Zyvox,Zosyn. CPK 376 likely multifactorial monitor closely f/u Repeat blood cultures in a.m. Follow up labs and cultures. Continue supportive care. Central lihe had been pulled out earlier during this hosp per staff PICC line was placed on 08/23/2021. If repeat blood cultures are positive, the patient will need PICC line removal. Remvove Groin line if able Critically ill. Prognosis is guarded. Discussed with significant other at bedside Discussed with RN. SOFIA LOWERY MD Aug 25, 2021 13:20
--- NOTE | 2021-08-25 17:12 | PDOC ---
CARDIOLOGY PROGRESS NOTE SUBJECTIVE: No acute events overnight. Patient has been able to tolerate complete weaning of vasopressor support He remains alert and oriented this morning and is responding quite well. FiO2 has been decreased. OBJECTIVE: Vital Signs/I&O: Vital Signs Date Time Temp Pulse Resp B/P (MAP) Pulse Ox O2 Delivery O2 Flow Rate FiO2 08/25/21 16:00 59 30 109/52 98 Ventilator 08/25/21 12:00 97.9 97.9 I & O 08/24/21 08/24/21 08/25/21 15:00 23:00 07:00 Intake Total 640.2 ml 421 ml Output Total 950 ml 215 ml 270 ml Balance -950 ml 425.2 ml 151 ml Objective: In general he is alert and oriented Despite significant sedation he is awake likely due to his alcohol history Head and neck exam is unremarkable Cardiac regular rate and rhythm without any obvious murmurs Lungs are clear to auscultation bilaterally anteriorly although the lung bases are not well auscultated Abdomen is soft nontender Right groin site is clean, dry and intact as well as the right radial artery site No significant lower extremity edema No focal neurologic deficits CURRENT MEDICATIONS: Atorvastatin, aspirin, amiodarone, Plavix and heparin drip DIAGNOSTIC TESTING: Laboratory studies reviewed Labs: Laboratory Tests 08/25/21 05:40 Laboratory Tests Test 08/24/21 21:30 08/25/21 05:40 08/25/21 08:00 08/25/21 12:15 Heparin Anti-Xa Act, Unfractionated 0.30 IU/mL (0.30-0.70) 0.22 IU/mL (0.30-0.70) L 0.31 IU/mL (0.30-0.70) White Blood Count 8.6 x10^3/uL (4.0-11.0) Red Blood Count 3.17 x10^6/uL (4.30-5.70) L Hemoglobin 9.5 g/dL (13.0-17.5) L Hematocrit 28.7 % (39.0-53.0) L Mean Corpuscular Volume 91 fL (79-100) Mean Corpuscular Hemoglobin 30 pg (25-35) Mean Corpuscular Hemoglobin Concent 33 g/dL (31-37) Red Cell Distribution Width 14.2 % (11.5-14.5) Platelet Count 283 x10^3/uL (140-400) Sodium Level 150 mmol/L (136-145) H Potassium Level 3.4 mmol/L (3.5-5.1) L Chloride Level 113 mmol/L (98-107) H Carbon Dioxide Level 29 mmol/L (21-32) Anion Gap 8 (6-14) Blood Urea Nitrogen 36 mg/dL (8-26) H Creatinine 1.2 mg/dL (0.7-1.3) Estimated GFR (Cockcroft-Gault) 61.1 BUN/Creatinine Ratio 30 (6-20) H Glucose Level 155 mg/dL (70-99) H Calcium Level 7.3 mg/dL (8.5-10.1) L Total Bilirubin 0.5 mg/dL (0.2-1.0) Aspartate Amino Transf (AST/SGOT) 155 U/L (15-37) H Alkaline Phosphatase 100 U/L (46-116) Creatine Kinase 376 U/L (39-308) H Total Protein 5.1 g/dL (6.4-8.2) L Albumin 1.7 g/dL (3.4-5.0) L Albumin/Globulin Ratio 0.5 (1.0-1.7) L O2 Saturation 98 % (92-99) Arterial Blood pH 7.29 (7.35-7.45) L Arterial Blood pCO2 at Patient Temp 53 mmHg (35-46) H Arterial Blood pO2 at Patient Temp 118 mmHg (65-108) H Arterial Blood HCO3 25 mmol/L (21-28) Arterial Blood Base Excess -2 mmol/L (-3-3) FiO2 100/ac30 400 +7 ASSESSMENT: 1. COVID-19 pneumonia and respiratory failure 2. Acute inferolateral ST elevation HI 3. Dyslipidemia 4. Alcohol abuse PLAN: 1. We will plan for removal of the intra-aortic balloon pump tomorrow if he has no further hemodynamic instability 2. Continue current medical therapy 3. Once his oxygenation status has been improved we will plan for a repeat c ardiac catheterization to evaluate the right coronary artery and likely 48 to 72 hours. Thank you for this consultation. Discussed with family at bedside and nursing staff. Justicifation of Admission Dx: Justifications for Admission: Justification of Admission Dx: N/A TEDDY ANGLIN MD Aug 25, 2021 17:12
--- NOTE | 2021-08-25 17:48 | PDOC ---
PROGRESS NOTES DOS: DATE: 08/25/21 TIME: 17:48 Plan Anoxic encephalopathy,, atrial fibrillation, multiorgan damage No new clinical seizures S/p CODE BLUE, cardiac arrest, acute on chronic respiratory failure, hyponatremia, A. fib, myocardial infarction, shock, Covid pneumonia, on antibiotics, on Keppra, prognosis guarded, continue medical management. unstable to undergo head CT no new clinical seizures, Thank you for allowing me to take part in this patient's care. Please not hesitate to contact me with questions. Transcribed using dictation device. The dictation could contain irregularities inherent in the voice to text conversion software, which may not be detected during the document review process. Please contact our office in case of any confusion or for any clarification, as needed. Subjective Patient is intubated sedated no new clinical seizures Objective Vital Signs Date Time Temp Pulse Resp B/P (MAP) Pulse Ox O2 Delivery O2 Flow Rate FiO2 08/25/21 17:00 98.1 67 30 150/67 97 Ventilator 98.1 Intake and Output 08/25/21 07:00 Intake Total 1061.2 ml Output Total 1435 ml Balance -373.8 ml IV Total 1061.2 ml Output Urine Total 1435 ml PHYSICAL EXAM Physical Examination General: Well-developed, well-nourished white male in no acute distress HEENT: Normocephalic andatraumatic. Temporal arteriespulsatile and nontender. Neck: Supple without bruit, no meningismus Musculoskeletal: Stability:see neurologic. Gait exam:see neurologic. Tone:see neurologic.Strength:see neurologic. Neurological: Mental Status:Intubated, no response to voice, no understanding of commands. Cranial Nerves:Pupils equal and reactive to light. There is no facial asymmetry.Reflexes:1-2 and symmetric with flexor plantar responses. Motor:No withdrawal to pain. Coordination and gait:Not testable. Sensory:Not testable. Review of Relevant I have reviewed the following items shey (where applicable) has been applied. Labs Laboratory Tests Test 08/23/21 20:20 08/23/21 20:28 08/24/21 01:25 08/24/21 05:30 Prothrombin Time 16.3 SEC (11.7-14.0) Prothromb Time International Ratio 1.3 (0.8-1.1) Sodium Level 147 mmol/L (136-145) 146 mmol/L (136-145) Potassium Level 3.3 mmol/L (3.5-5.1) 5.1 mmol/L (3.5-5.1) Chloride Level 107 mmol/L (98-107) 111 mmol/L (98-107) Carbon Dioxide Level 30 mmol/L (21-32) 29 mmol/L (21-32) Anion Gap 10 (6-14) 6 (6-14) Blood Urea Nitrogen 24 mg/dL (8-26) 25 mg/dL (8-26) Creatinine 1.1 mg/dL (0.7-1.3) 1.1 mg/dL (0.7-1.3) Estimated GFR (Cockcroft-Gault) 67.6 67.6 BUN/Creatinine Ratio 22 (6-20) 23 (6-20) Glucose Level 205 mg/dL (70-99) 178 mg/dL (70-99) Calcium Level 7.6 mg/dL (8.5-10.1) 7.4 mg/dL (8.5-10.1) Magnesium Level 1.9 mg/dL (1.8-2.4) Total Bilirubin 1.0 mg/dL (0.2-1.0) 0.8 mg/dL (0.2-1.0) Aspartate Amino Transf (AST/SGOT) 175 U/L (15-37) 323 U/L (15-37) Alanine Aminotransferase (ALT/SGPT) 75 U/L (16-63) 85 U/L (16-63) Alkaline Phosphatase 136 U/L (46-116) 120 U/L (46-116) Troponin I High Sensitivity 53575 ng/L (4-75) Total Protein 6.5 g/dL (6.4-8.2) 5.7 g/dL (6.4-8.2) Albumin 2.0 g/dL (3.4-5.0) 1.8 g/dL (3.4-5.0) Albumin/Globulin Ratio 0.4 (1.0-1.7) 0.5 (1.0-1.7) O2 Saturation 94 % (92-99) Arterial Blood pH 7.22 (7.35-7.45) Arterial Blood pCO2 at Patient Temp 61 mmHg (35-46) Arterial Blood pO2 at Patient Temp 80 mmHg (65-108) Arterial Blood HCO3 24 mmol/L (21-28) Arterial Blood Base Excess -4 mmol/L (-3-3) FiO2 100 Heparin Anti-Xa Act, Unfractionated < 0.10 IU/mL (0.30-0.70) White Blood Count 16.6 x10^3/uL (4.0-11.0) Red Blood Count 3.69 x10^6/uL (4.30-5.70) Hemoglobin 10.8 g/dL (13.0-17.5) Hematocrit 33.6 % (39.0-53.0) Mean Corpuscular Volume 91 fL (79-100) Mean Corpuscular Hemoglobin 29 pg (25-35) Mean Corpuscular Hemoglobin Concent 32 g/dL (31-37) Red Cell Distribution Width 14.6 % (11.5-14.5) Platelet Count 443 x10^3/uL (140-400) Neutrophils (%) (Auto) 94 % (31-73) Lymphocytes (%) (Auto) 4 % (24-48) Monocytes (%) (Auto) 1 % (0-9) Eosinophils (%) (Auto) 0 % (0-3) Basophils (%) (Auto) 0 % (0-3) Neutrophils # (Auto) 15.6 x10^3/uL (1.8-7.7) Lymphocytes # (Auto) 0.7 x10^3/uL (1.0-4.8) Monocytes # (Auto) 0.2 x10^3/uL (0.0-1.1) Eosinophils # (Auto) 0.0 x10^3/uL (0.0-0.7) Basophils # (Auto) 0.0 x10^3/uL (0.0-0.2) Triglycerides Level 155 mg/dL (0-150) Cholesterol Level 160 mg/dL (0-200) LDL Cholesterol, Calculated 110 mg/dL (0-100) VLDL Cholesterol, Calculated 31 mg/dL (0-40) Non-HDL Cholesterol Calculated 141 mg/dL (0-129) HDL Cholesterol 19 mg/dL (40-60) Cholesterol/HDL Ratio 8.4 Test 08/24/21 05:50 08/24/21 07:30 08/24/21 08:24 08/24/21 15:38 Coronavirus (COVID-19)(PCR) Positive (NOT DETECTD) O2 Saturation 98 % (92-99) Arterial Blood pH 7.28 (7.35-7.45) Arterial Blood pCO2 at Patient Temp 57 mmHg (35-46) Arterial Blood pO2 at Patient Temp 123 mmHg (65-108) Arterial Blood HCO3 26 mmol/L (21-28) Arterial Blood Base Excess -1 mmol/L (-3-3) FiO2 100 Heparin Anti-Xa Act, Unfractionated < 0.10 IU/mL (0.30-0.70) 0.30 IU/mL (0.30-0.70) Test 08/24/21 21:30 08/25/21 05:40 08/25/21 08:00 08/25/21 12:15 Heparin Anti-Xa Act, Unfractionated 0.30 IU/mL (0.30-0.70) 0.22 IU/mL (0.30-0.70) 0.31 IU/mL (0.30-0.70) White Blood Count 8.6 x10^3/uL (4.0-11.0) Red Blood Count 3.17 x10^6/uL (4.30-5.70) Hemoglobin 9.5 g/dL (13.0-17.5) Hematocrit 28.7 % (39.0-53.0) Mean Corpuscular Volume 91 fL (79-100) Mean Corpuscular Hemoglobin 30 pg (25-35) Mean Corpuscular Hemoglobin Concent 33 g/dL (31-37) Red Cell Distribution Width 14.2 % (11.5-14.5) Platelet Count 283 x10^3/uL (140-400) Sodium Level 150 mmol/L (136-145) Potassium Level 3.4 mmol/L (3.5-5.1) Chloride Level 113 mmol/L (98-107) Carbon Dioxide Level 29 mmol/L (21-32) Anion Gap 8 (6-14) Blood Urea Nitrogen 36 mg/dL (8-26) Creatinine 1.2 mg/dL (0.7-1.3) Estimated GFR (Cockcroft-Gault) 61.1 BUN/Creatinine Ratio 30 (6-20) Glucose Level 155 mg/dL (70-99) Calcium Level 7.3 mg/dL (8.5-10.1) Total Bilirubin 0.5 mg/dL (0.2-1.0) Aspartate Amino Transf (AST/SGOT) 155 U/L (15-37) Alanine Aminotransferase (ALT/SGPT) 67 U/L (16-63) Alkaline Phosphatase 100 U/L (46-116) Creatine Kinase 376 U/L (39-308) Total Protein 5.1 g/dL (6.4-8.2) Albumin 1.7 g/dL (3.4-5.0) Albumin/Globulin Ratio 0.5 (1.0-1.7) O2 Saturation 98 % (92-99) Arterial Blood pH 7.29 (7.35-7.45) Arterial Blood pCO2 at Patient Temp 53 mmHg (35-46) Arterial Blood pO2 at Patient Temp 118 mmHg (65-108) Arterial Blood HCO3 25 mmol/L (21-28) Arterial Blood Base Excess -2 mmol/L (-3-3) FiO2 100/ac30 400 +7 Laboratory Tests Test 08/24/21 21:30 08/25/21 05:40 08/25/21 08:00 08/25/21 12:15 Heparin Anti-Xa Act, Unfractionated 0.30 IU/mL (0.30-0.70) 0.22 IU/mL (0.30-0.70) 0.31 IU/mL (0.30-0.70) White Blood Count 8.6 x10^3/uL (4.0-11.0) Red Blood Count 3.17 x10^6/uL (4.30-5.70) Hemoglobin 9.5 g/dL (13.0-17.5) Hematocrit 28.7 % (39.0-53.0) Mean Corpuscular Volume 91 fL (79-100) Mean Corpuscular Hemoglobin 30 pg (25-35) Mean Corpuscular Hemoglobin Concent 33 g/dL (31-37) Red Cell Distribution Width 14.2 % (11.5-14.5) Platelet Count 283 x10^3/uL (140-400) Sodium Level 150 mmol/L (136-145) Potassium Level 3.4 mmol/L (3.5-5.1) Chloride Level 113 mmol/L (98-107) Carbon Dioxide Level 29 mmol/L (21-32) Anion Gap 8 (6-14) Blood Urea Nitrogen 36 mg/dL (8-26) Creatinine 1.2 mg/dL (0.7-1.3) Estimated GFR (Cockcroft-Gault) 61.1 BUN/Creatinine Ratio 30 (6-20) Glucose Level 155 mg/dL (70-99) Calcium Level 7.3 mg/dL (8.5-10.1) Total Bilirubin 0.5 mg/dL (0.2-1.0) Aspartate Amino Transf (AST/SGOT) 155 U/L (15-37) Alanine Aminotransferase (ALT/SGPT) 67 U/L (16-63) Alkaline Phosphatase 100 U/L (46-116) Creatine Kinase 376 U/L (39-308) Total Protein 5.1 g/dL (6.4-8.2) Albumin 1.7 g/dL (3.4-5.0) Albumin/Globulin Ratio 0.5 (1.0-1.7) O2 Saturation 98 % (92-99) Arterial Blood pH 7.29 (7.35-7.45) Arterial Blood pCO2 at Patient Temp 53 mmHg (35-46) Arterial Blood pO2 at Patient Temp 118 mmHg (65-108) Arterial Blood HCO3 25 mmol/L (21-28) Arterial Blood Base Excess -2 mmol/L (-3-3) FiO2 100/ac30 400 +7 Microbiology 08/24/21 Blood Culture - Preliminary, Resulted NO GROWTH AFTER 1 DAY 08/23/21 Respiratory Culture Gram Stain - Final, Complete 08/23/21 Respiratory Culture - Final, Complete Medications Current Medications Dexamethasone Sodium Phosphate (Decadron) 6 mg DAILY IVP Last administered on 08/10/21at 08:29; Start 08/01/21 at 09:00; Stop 08/10/21 at 09:01; Status DC Heparin Sodium (Porcine) (Heparin Sodium) 5,000 unit Q8HRS SQ Last administered on 08/20/21at 05:41; Start 07/31/21 at 14:00; Stop 08/20/21 at 08:37; Status DC Famotidine (Pepcid Vial) 20 mg BID IVP Last administered on 08/25/21at 07:56; Start 07/31/21 at 14:00 Fentanyl Citrate 30 ml @ 2.5 mls/hr CONT PRN IV SEE PROTOCOL Last administered on 07/31/21at 12:49; Start 07/31/21 at 12:15; Stop 07/31/21 at 16:19; Status DC Midazolam HCl 100 ml @ 1 mls/hr CONT PRN IV SEE PROTOCOL Last administered on 08/25/21at 16:35; Start 07/31/21 at 12:15 Propofol 100 ml @ 3.45 mls/hr CONT PRN IV PER PROTOCOL Last administered on 08/20/21at 03:08; Start 07/31/21 at 12:15 Vecuronium Hanalei (Norcuron Bolus) 6 mg PRN 1X PRN IV VENT INDUCTION; Start 07/31/21 at 12:15; Stop 08/01/21 at 12:14; Status DC Glycerin/ Hypromellose/ Polyethylene (Artificial Tears) 1 drop PRN Q1HR PRN OU DRY EYE; Start 07/31/21 at 12:15 Dexmedetomidine HCl 400 mcg/ Sodium Chloride 100 ml @ 0 mls/hr CONT PRN IV PER PROTOCOL Last administered on 08/17/21at 12:55; Start 07/31/21 at 12:15 Midazolam HCl (Versed) 5 mg PRN 1X PRN IVP VENT INDUCTION; Start 07/31/21 at 12:15; Stop 08/01/21 at 12:14; Status DC Sodium Chloride 500 ml @ 500 mls/hr 1X PRN PRN IV SEE COMMENTS; Start 07/31/21 at 12:15 Atropine Sulfate (ATROPINE 0.5mg SYRINGE) 0.5 mg PRN Q5MIN PRN IV SEE COMMENTS; Start 07/31/21 at 12:15 Famotidine (Pepcid Vial) 20 mg BID IVP ; Start 07/31/21 at 21:00; Status UNV Piperacillin Sod/ Tazobactam Sod (Zosyn Per Pharmacy) 1 each PRN DAILY PRN MC SEE COMMENTS; Start 07/31/21 at 15:15; Stop 08/08/21 at 12:29; Status DC Piperacillin Sod/ Tazobactam Sod 3.375 gm/Sodium Chloride 50 ml @ 100 mls/hr Q6HRS IV Last administered on 08/07/21at 11:20; Start 07/31/21 at 18:00; Stop 08/07/21 at 17:59; Status DC Fentanyl Citrate 55 ml @ 1 mls/hr CONT PRN IV SEE PROTOCOL Last administered on 08/25/21at 10:53; Start 07/31/21 at 15:45 Insulin Human Lispro (HumaLOG) 0-7 UNITS Q6HRS SQ ; Start 08/02/21 at 06:00; Stop 08/07/21 at 08:09; Status DC Dextrose (Dextrose 50%-Water Syringe) 12.5 gm PRN Q15MIN PRN IV SEE COMMENTS; Start 08/01/21 at 23:00 Vecuronium Hanalei (Norcuron Bolus) 6 mg PRN Q6HRS PRN IV VENTILATOR COMPLIANCE Last administered on 08/23/21at 18:29; Start 08/06/21 at 13:45 Vecuronium Hanalei (Norcuron Bolus) 10 mg STK-MED ONCE IV ; Start 08/06/21 at 13:34; Stop 08/07/21 at 13:38; Status DC Sterile Water (WATER for RESP) 1,000 ml CONT PRN INH VIA VAPOTHERM DEVICE; Start 08/12/21 at 09:45; Status Cancel Dexamethasone Sodium Phosphate (Decadron) 6 mg DAILY IVP ; Start 08/17/21 at 09:00; Stop 08/16/21 at 13:31; Status DC Dexamethasone Sodium Phosphate (Decadron) 10 mg 1X ONCE IV ; Start 08/16/21 at 12:30; Stop 08/16/21 at 13:31; Status DC Acetaminophen (Tylenol) 650 mg PRN Q6HRS PRN PEG MILD PAIN / TEMP > 100.3'F Last administered on 08/20/21at 03:50; Start 08/17/21 at 00:15 Heparin Sodium (Porcine) (Heparin Sodium) 5,000 unit Q8HRS SQ Last administered on 08/23/21at 05:39; Start 08/21/21 at 14:00; Stop 08/23/21 at 18:33; Status DC Fentanyl Citrate (Fentanyl 2ml Vial) 25 mcg PRN Q5MIN PRN IVP MILD PAIN 1-3; Start 08/21/21 at 06:00; Stop 08/22/21 at 05:59; Status DC Fentanyl Citrate (Fentanyl 2ml Vial) 50 mcg PRN Q5MIN PRN IVP MODERATE PAIN 4- 6; Start 08/21/21 at 06:00; Stop 08/22/21 at 05:59; Status DC Morphine Sulfate (Morphine Sulfate) 1 mg PRN Q10MIN PRN IVP SEVERE PAIN 7-10; Start 08/21/21 at 06:00; Stop 08/22/21 at 05:59; Status DC Ringer's Solution 1,000 ml @ 30 mls/hr Q24H IV ; Start 08/21/21 at 06:00; Stop 08/21/21 at 17:59; Status DC Hydromorphone HCl (Dilaudid) 0.5 mg PRN Q10MIN PRN IVP SEVERE PAIN 7-10, 2nd CHOICE; Start 08/21/21 at 06:00; Stop 08/22/21 at 05:59; Status DC Prochlorperazine Edisylate (Compazine) 5 mg PACU PRN PRN IVP NAUSEA, MRX1; Start 08/21/21 at 06:00; Stop 08/22/21 at 05:59; Status DC Haloperidol Lactate (Haldol Inj) 5 mg PRN Q8HRS PRN IVP AGITATION; Start 08/22/21 at 10:45; Stop 08/22/21 at 10:45; Status DC Haloperidol Lactate (Haldol Inj) 5 mg Q8HRS IVP Last administered on 08/23/21at 05:38; Start 08/22/21 at 11:00; Stop 08/24/21 at 13:52; Status DC Acetaminophen (Tylenol Supp) 650 mg Q4H ONCE SD Last administered on 08/22/21at 11:45; Start 08/22/21 at 11:30; Stop 08/22/21 at 11:31; Status DC Vancomycin HCl (Vanco Per Pharmacy) 1 each PRN DAILY PRN MC SEE COMMENTS Last administered on 08/23/21at 12:21; Start 08/22/21 at 11:30; Stop 08/24/21 at 09:14; Status DC Piperacillin Sod/ Tazobactam Sod (Zosyn Per Pharmacy) 1 each PRN DAILY PRN MC SEE COMMENTS; Start 08/22/21 at 11:30 Piperacillin Sod/ Tazobactam Sod 4.5 gm/Dextrose 100 ml @ 200 mls/hr Q6HRS IV Last administered on 08/25/21at 11:46; Start 08/22/21 at 12:00 Vancomycin HCl 2 gm/Sodium Chloride 500 ml @ 250 mls/hr 1X ONCE IV Last administered on 08/22/21at 12:34; Start 08/22/21 at 13:00; Stop 08/22/21 at 14:59; Status DC Acetaminophen (Tylenol Supp) 650 mg PRN Q4HRS PRN SD MILD PAIN / TEMP > 100.3'F Last administered on 08/22/21at 23:32; Start 08/22/21 at 11:45 Dextrose/Lactated Ringer's 1,000 ml @ 80 mls/hr [id number] IV Last administered on 08/25/21at 09:49; Start 08/22/21 at 12:45 Vancomycin HCl 1 gm/Sodium Chloride 250 ml @ 250 mls/hr Q8H IV Last administered on 08/24/21at 04:00; Start 08/22/21 at 20:00; Stop 08/24/21 at 09:14; Status DC Vancomycin HCl (Vancomycin Trough Level) 1 each 1X ONCE MC ; Start 08/23/21 at 11:30; Stop 08/24/21 at 09:14; Status DC Etomidate (Amidate) 20 mg STK-MED ONCE IV ; Start 08/23/21 at 11:25; Stop 08/23/21 at 11:25; Status DC Succinylcholine Chloride (Anectine) 200 mg STK-MED ONCE .ROUTE ; Start 08/23/21 at 11:25; Stop 08/23/21 at 11:26; Status DC Etomidate (Amidate) 20 mg 1X ONCE IV Last administered on 08/23/21at 12:21; Start 08/23/21 at 12:15; Stop 08/23/21 at 12:16; Status DC Succinylcholine Chloride (Anectine) 100 mg 1X ONCE IV Last administered on 08/23/21at 12:21; Start 08/23/21 at 12:15; Stop 08/23/21 at 12:16; Status DC Methylprednisolone Sodium Succinate (SOLU-Medrol 125MG VIAL) 125 mg Q8HRS IV Last administered on 08/25/21at 14:24; Start 08/23/21 at 14:00 Furosemide (Lasix) 40 mg 1X ONCE IVP Last administered on 08/23/21at 13:19; Start 08/23/21 at 12:45; Stop 08/23/21 at 12:56; Status DC Furosemide (Lasix) 40 mg DAILY IVP Last administered on 08/24/21at 07:24; Start 08/24/21 at 09:00; Stop 08/24/21 at 11:24; Status DC Digoxin (Lanoxin) 500 mcg 1X ONCE IV Last administered on 08/23/21at 15:16; Start 08/23/21 at 15:30; Stop 08/23/21 at 15:31; Status DC Amiodarone HCl 150 mg/Dextrose 103 ml @ 600 mls/hr 1X ONCE IV ; Start 08/23/21 at 16:00; Stop 08/23/21 at 16:10; Status DC Amiodarone HCl 450 mg/Dextrose 259 ml @ 33 mls/hr CONT PRN IV SEE I/O RECORD Last administered on 08/24/21at 01:22; Start 08/23/21 at 16:00; Stop 08/24/21 at 15:59; Status DC Iodixanol (Visipaque 320) 100 ml STK-MED ONCE .ROUTE ; Start 08/23/21 at 16:00; Stop 08/23/21 at 16:00; Status DC Lidocaine HCl (Lidocaine 1% 20ml Vial) 20 ml STK-MED ONCE .ROUTE ; Start 08/23/21 at 16:00; Stop 08/23/21 at 16:00; Status DC Heparin Sodium/ Sodium Chloride 1,500 ml @ As Directed STK-MED ONCE .ROUTE ; Start 08/23/21 at 16:00; Stop 08/23/21 at 16:00; Status DC Amiodarone HCl (Cordarone) 150 mg STK-MED ONCE .ROUTE ; Start 08/23/21 at 16:01; Stop 08/23/21 at 16:01; Status DC Amiodarone HCl (Cordarone) 150 mg 1X ONCE IVP Last administered on 08/23/21at 16:23; Start 08/23/21 at 16:15; Stop 08/23/21 at 16:16; Status DC Aspirin (Aspirin Chewable) 324 mg 1X ONCE PO Last administered on 08/23/21at 16:07; Start 08/23/21 at 16:15; Stop 08/23/21 at 16:16; Status DC Aspirin (Aspirin Chewable) 81 mg STK-MED ONCE .ROUTE ; Start 08/23/21 at 16:06; Stop 08/23/21 at 16:06; Status DC Heparin Sodium (Porcine) (Heparin Sodium) 10,000 unit STK-MED ONCE .ROUTE ; Start 08/23/21 at 16:23; Stop 08/23/21 at 16:24; Status DC Verapamil HCl (Verapamil) 5 mg STK-MED ONCE .ROUTE ; Start 08/23/21 at 16:23; Stop 08/23/21 at 16:24; Status DC Nitroglycerin (Nitroglycerin) 200 mcg STK-MED ONCE .ROUTE ; Start 08/23/21 at 16:23; Stop 08/23/21 at 16:24; Status DC Aspirin (Aspirin Chewable) 81 mg DAILYWBKFT PO Last administered on 08/25/21at 07:58; Start 08/24/21 at 08:00 Phenylephrine HCl 50 mg/Sodium Chloride 255 ml @ 14.351 mls/ hr CONT PRN IV PER PROTOCOL Last administered on 08/23/21at 16:42; Start 08/23/21 at 16:45 Phenylephrine HCl (PHENYLEPHRINE in 0.9% NACL PF) 1 mg STK-MED ONCE IV ; Start 08/23/21 at 16:41; Stop 08/23/21 at 16:41; Status DC Heparin Sodium (Porcine) (Heparin Sodium) 10,000 unit STK-MED ONCE .ROUTE ; Start 08/23/21 at 16:47; Stop 08/23/21 at 16:47; Status DC Norepinephrine Bitartrate 8 mg/ Dextrose 258 ml @ 18.15 mls/ hr CONT PRN IV PER PROTOCOL Last administered on 08/24/21at 02:08; Start 08/23/21 at 17:00 Iodixanol (Visipaque 320) 100 ml STK-MED ONCE .ROUTE ; Start 08/23/21 at 17:07; Stop 08/23/21 at 17:07; Status DC Nitroglycerin (Nitroglycerin) 200 mcg 1X ONCE IART Last administered on 08/23/21at 16:35; Start 08/23/21 at 17:15; Stop 08/23/21 at 17:16; Status DC Verapamil HCl (Verapamil) 2.5 mg 1X ONCE IART Last administered on 08/23/21at 16:35; Start 08/23/21 at 17:15; Stop 08/23/21 at 17:16; Status DC Heparin Sodium (Porcine) (Heparin Sodium) 2,500 unit 1X ONCE IART Last administered on 08/23/21at 16:42; Start 08/23/21 at 17:15; Stop 08/23/21 at 17:16; Status DC Heparin Sodium/ Sodium Chloride (HEPARIN for ARTERIAL LINE FLUSH) 1,000 unit 1X ONCE IART Last administered on 08/23/21at 17:15; Start 08/23/21 at 17:15; Stop 08/23/21 at 17:16; Status DC Heparin Sodium/ Sodium Chloride (HEPARIN for ARTERIAL LINE FLUSH) 4,000 unit 1X ONCE IV Last administered on 08/23/21at 17:15; Start 08/23/21 at 17:15; Stop 08/23/21 at 17:16; Status DC Iodixanol (Visipaque 320) 100 ml 1X ONCE IART Last administered on 08/23/21at 17:15; Start 08/23/21 at 17:15; Stop 08/23/21 at 17:16; Status DC Heparin Sodium (Porcine) (Heparin Sodium) 5,000 unit 1X ONCE INT CAT Last administered on 08/23/21at 16:52; Start 08/23/21 at 17:15; Stop 08/23/21 at 17:16; Status DC Tirofiban/Sodium Chloride 250 ml @ As Directed STK-MED ONCE IV ; Start 08/23/21 at 17:18; Stop 08/23/21 at 17:18; Status DC Tirofiban/Sodium Chloride 250 ml @ 16.884 mls/ hr CONT PRN IV PER PROTOCOL Last administered on 08/23/21at 17:16; Start 08/23/21 at 17:45; Stop 08/24/21 at 11:44; Status DC Heparin Sodium (Porcine) (Heparin Sodium) 5,000 unit 1X ONCE IV Last administered on 08/23/21at 17:09; Start 08/23/21 at 18:30; Stop 08/23/21 at 18:31; Status DC Levetiracetam 100 ml @ 400 mls/hr Q12HR IV Last administered on 08/25/21at 08:00; Start 08/23/21 at 21:00 Heparin Sodium/ Dextrose 250 ml @ 11.256 mls/ hr CONT PRN IV PER PROTOCOL Last administered on 08/25/21at 08:04; Start 08/23/21 at 18:45 Heparin Sodium (Porcine) (Heparin Sodium) 2,350 unit PRN Q6HRS PRN IV FOR UFH LEVEL LESS THAN 0.2 Last administered on 08/24/21at 11:11; Start 08/23/21 at 18:45 Clopidogrel Bisulfate (Plavix) 600 mg 1X ONCE PO Last administered on 08/23/21at 22:06; Start 08/23/21 at 22:30; Stop 08/23/21 at 22:31; Status DC Potassium Chloride/Water 100 ml @ 100 mls/hr Q1H IV Last administered on 08/24/21at 02:00; Start 08/23/21 at 22:00; Stop 08/24/21 at 01:59; Status DC Daptomycin 520 mg/ Sodium Chloride 50 ml @ 100 mls/hr Q24H IV Last administered on 08/25/21at 12:44; Start 08/24/21 at 11:00 Linezolid (Zyvox) 600 mg BID PO Last administered on 08/25/21 08:04; Start 08/24/21 at 10:00 Amiodarone HCl (Cordarone) 200 mg DAILY PO Last administered on 08/25/21at 07:57; Start 08/24/21 at 12:00 Furosemide (Lasix) 40 mg DAILY IVP Last administered on 08/25/21at 07:56; Start 08/25/21 at 09:00 Atorvastatin Calcium (Lipitor) 20 mg QHS PO Last administered on 08/24/21at 20:28; Start 08/24/21 at 21:00 Clopidogrel Bisulfate (Plavix) 75 mg 1X ONCE PO ; Start 08/24/21 at 11:30; Stop 08/24/21 at 11:31; Status UNV Clopidogrel Bisulfate (Plavix) 75 mg DAILYWBKFT PO Last administered on 08/25/21at 07:58; Start 08/24/21 at 12:00 Epinephrine HCl (EPINEPHrine SYRINGE) 1 mg STK-MED ONCE .ROUTE ; Start 08/23/21 at 17:00; Stop 08/24/21 at 12:21; Status DC Sodium Bicarbonate (Sodium Bicarb Adult 8.4% Syr) 50 meq STK-MED ONCE .ROUTE ; Start 08/23/21 at 17:00; Stop 08/24/21 at 12:21; Status DC Potassium Chloride/Water 100 ml @ 100 mls/hr Q1H IV Last administered on 08/25/21at 13:32; Start 08/25/21 at 10:00; Stop 08/25/21 at 12:59; Status DC Vitals/I & O Vital Sign - Last 24 Hours 08/24/21 08/24/21 08/24/21 08/24/21 18:00 19:00 20:00 20:00 Temp 97.6 97.6 Pulse 55 52 54 Resp 30 30 30 B/P (MAP) 96/47 97/46 94/48 Pulse Ox 98 98 100 98 O2 Delivery Ventilator Ventilator Ventilator Ventilator 08/24/21 08/24/21 08/24/21 08/24/21 20:00 21:00 22:00 23:00 Pulse 55 57 50 Resp 30 30 30 B/P (MAP) 99/45 99/55 111/53 Pulse Ox 97 98 98 O2 Delivery Mechanical Ventilator Ventilator Ventilator Ventilator 08/25/21 08/25/21 08/25/21 08/25/21 00:00 00:00 01:00 02:00 Temp 97.7 97.7 Pulse 53 51 54 Resp 30 30 30 B/P (MAP) 97/45 108/49 113/52 Pulse Ox 98 100 97 98 O2 Delivery Ventilator Ventilator Ventilator Ventilator 08/25/21 08/25/21 08/25/21 08/25/21 03:00 03:27 04:00 05:00 Temp 97.8 97.8 Pulse 54 58 Resp 30 30 B/P (MAP) 105/49 132/59 Pulse Ox 98 99 99 100 O2 Delivery Ventilator Ventilator Ventilator Ventilator 08/25/21 08/25/21 08/25/21 08/25/21 05:00 06:00 07:00 07:39 Pulse 61 61 62 Resp 30 30 30 B/P (MAP) 140/67 141/65 144/62 Pulse Ox 99 100 100 100 O2 Delivery Ventilator Ventilator Ventilator Ventilator 08/25/21 08/25/21 08/25/21 08/25/21 07:57 08:00 08:00 09:00 Temp 97.8 97.8 Pulse 63 60 62 Resp 30 34 B/P (MAP) 104/62 122/56 146/64 Pulse Ox 100 96 O2 Delivery Mechanical Ventilator Ventilator Ventilator 08/25/21 08/25/21 08/25/21 08/25/21 10:00 10:00 10:53 11:00 Pulse 64 60 Resp 30 34 B/P (MAP) 146/64 120/52 Pulse Ox 99 100 100 99 O2 Delivery Ventilator Ventilator Ventilator Ventilator 08/25/21 08/25/21 08/25/21 08/25/21 11:27 11:29 12:00 13:00 Temp 97.9 97.9 Pulse 63 60 Resp 30 30 B/P (MAP) 132/60 115/53 Pulse Ox 99 99 97 99 O2 Delivery Ventilator Ventilator Ventilator Ventilator 08/25/21 08/25/21 08/25/21 08/25/21 13:41 14:00 15:00 15:50 Pulse 63 57 Resp 30 30 B/P (MAP) 144/68 103/57 Pulse Ox 97 98 98 97 O2 Delivery Ventilator Ventilator Ventilator Ventilator 08/25/21 08/25/21 16:00 17:00 Temp 98.1 98.1 Pulse 59 67 Resp 30 30 B/P (MAP) 109/52 150/67 Pulse Ox 98 97 O2 Delivery Ventilator Ventilator Intake and Output 08/24/21 08/24/21 08/25/21 15:00 23:00 07:00 Intake Total 640.2 ml 421 ml Output Total 950 ml 215 ml 270 ml Balance -950 ml 425.2 ml 151 ml Justicifation of Admission Dx: Justifications for Admission: Justification of Admission Dx: N/A MICHELLE CISNEROS MD Aug 25, 2021 17:48
[2021-08-25] MEDS: ATORVASTATIN CALCIUM 20 MG TABLET PO SCH (21:21)
[2021-08-26] VITALS (24 sets, daily range): BP systolic 89–151; BP diastolic 48–93
[2021-08-26] MEDS: MIDAZOLAM 100mg/100ml NS BAG 100 ML IV PRN ×3 (01:45→16:44)
[2021-08-26] MEDS: fentaNYL HIGH DOSE PCA 55 ML IV PRN ×2 (01:47→16:43)
[2021-08-26] MEDS: HEPARIN 25,000UTS/250ML PREMIX 250 ML IV PRN (01:48)
[2021-08-26] MEDS: IV DEXTROSE 5%-LACT RINGERS 1,000 ML IV SCH ×2 (04:56→22:03)
[2021-08-26 04:58] LABS: HEMATOCRIT 27.9 % (39.0-53.0); RED BLOOD COUNT 3.07 x10^6/uL (4.30-5.70); RED CELL DISTRIBUTION WIDTH 14.3 % (11.5-14.5); WHITE BLOOD COUNT 7.3 x10^3/uL (4.0-11.0)
[2021-08-26 05:27] LABS: ALBUMIN 1.5 g/dL (3.4-5.0); ALBUMIN/GLOBULIN RATIO 0.4 (1.0-1.7); CALCIUM 7.1 mg/dL (8.5-10.1); CREATININE 1.2 mg/dL (0.7-1.3); GFR 61.1; POTASSIUM 3.4 mmol/L (3.5-5.1); TOTAL BILIRUBIN 0.4 mg/dL (0.2-1.0); TOTAL PROTEIN 5.4 g/dL (6.4-8.2)
--- NOTE | 2021-08-26 06:06 | RAD ---
XR CHEST 1V INDICATION: RF. COMPARISON STUDY: 08/25/2021. FINDINGS: Life Support Devices: Stable endotracheal tube, enteric tube, right PICC. Lungs: Normal lung volume. Stable diffuse bilateral opacities. Pleura: No pleural effusion or pneumothorax. Heart and Mediastinum: Stable cardiomediastinal silhouette and great vessels. Bones and Soft Tissues: Stable regional skeleton and soft tissues. IMPRESSION: 1. Stable life support devices. 2. Stable diffuse bilateral opacities. Electronically signed by: Yifan Samson MD (08/26/2021 6:03 AM) [facility]
[2021-08-26] MEDS: PIPERACILLIN/TAZOBACTAM 4.5 GM in IV DEXTROSE 5% 100ML 100 ML IV SCH ×3 (06:20→18:11)
[2021-08-26] MEDS: methylPREDNISolone SOD SUCC PF 125 MG/2 ML VIAL. IV SCH ×3 (06:22→22:08)
[2021-08-26 08:24] LABS: BASE EXCESS ABG 1 mmol/L (-3-3); HCO3 ABG 27 mmol/L (21-28); PCO2 ABG 51 mmHg (35-46); PO2 ABG 76 mmHg (65-108); SAT O2 ABG 95 % (92-99)
[2021-08-26] MEDS: FAMOTIDINE 20 MG/2 ML VIAL IVP SCH ×2 (08:25→22:08)
[2021-08-26] MEDS: ASPIRIN CHEWABLE 81 MG TABLET. PO SCH (08:26)
[2021-08-26] MEDS: FUROSEMIDE 40 MG/4 ML VIAL. IVP SCH (08:26)
[2021-08-26] MEDS: AMIODARONE HCL 200 MG TABLET. PO SCH (08:26)
[2021-08-26] MEDS: LINEZOLID 600 MG TABLET PO SCH ×2 (08:26→22:04)
[2021-08-26] MEDS: CLOPIDOGREL BISULFATE 75 MG TABLET PO SCH (08:26)
--- NOTE | 2021-08-26 08:52 | PN ---
DATE: 08/26/2021 SUBJECTIVE: The patient continued to be sedated, intubated and mechanically ventilated. He is off Levophed. Continues to have intraaortic balloon pump in place. He remains alert and oriented and responding quite well. His FiO2 is down to 80%. PHYSICAL EXAMINATION: GENERAL: When I examined him, he was somewhat pale, not jaundiced or cyanosed. No lymphadenopathy, no thyromegaly, no jugular venous distention. No limb edema. VITAL SIGNS: His heart rate was 62, blood pressure was 136/73, temperature was 96.5, respiratory rate was 30 and oxygen saturation was 99% on FiO2 of 80%. HEAD, EYES, EARS, NOSE, AND THROAT: Normocephalic, atraumatic. Has orotracheal and orogastric tube. NECK: Supple. HEART: Normal first and second heart sounds. No gallop, rub or murmur. CHEST: Clear to auscultation, no crepitation or rhonchi. ABDOMEN: Distended, soft, nontender. NEUROLOGIC: He was awake, alert, responding appropriately. He moves all extremities without difficulty. His intake over the last 24 hours was 1000, output was 1435. LABORATORY DATA: As of this morning, his white cell count was 7300, hemoglobin 9, hematocrit 27, MCV 91, and platelet count 314,000. His serum sodium was 146, potassium 3.4, chloride 109, bicarbonate 31, anion gap of 6, BUN 35, creatinine was 1.2. Estimated GFR was 61 mL per minute. His glucose 171, calcium was 7.1. Total bilirubin, AST, ALT, alkaline phosphatase are normal. Total protein 5.4, albumin is 1.5. ASSESSMENT: 1. Status post code blue cardiac arrest, likely from hypoxia associated with COVID and acute myocardial infarction. Apparently the patient went into ventricular tachycardia and was shocked and he also went into ventricular fibrillation, treated with one round of epinephrine with return of spontaneous circulation. 2. Acute on chronic hypoxic respiratory failure, acute respiratory distress and pneumonia together with chronic obstructive pulmonary disease exacerbation. 3. Acute exacerbation of chronic obstructive pulmonary disease. 4. COVID-19 pneumonia. 5. Mild . 6. Atrial fibrillation with rapid ventricular response. 7. Inferior ST segment myocardial infarction, apparently the patient has no prior history of coronary artery disease. 8. Shock, multifactorial including cardiogenic as well as septic. 9. The patient underwent emergent left heart catheterization, which was found to have occluded right coronary artery. No intervention. Apparently, multiple attempts were made to traverse the total thrombotic occlusion without success. PLAN: Obviously continue with IV antibiotic. He is now on daptomycin as well as linezolid and piperacillin/tazobactam. Continue with heparin drip. Continue with Tirofiban drip. He is off Levophed. Amiodarone drip was discontinued as he became bradycardic. For his seizure he was started also on Keppra. ALIZA/JAN DR: Vannessa TID: [id number]
[2021-08-26 08:59] LABS: FIO2 ABG 80/AC 30 400 +6
[2021-08-26] MEDS: POTASSIUM CHLORIDE 20MEQ 100 ML IV SCH ×3 (09:04→10:28)
[2021-08-26] MEDS ORDERED: POTASSIUM BICARB 20 MEQ EFFERVESCENT TABLET. PO ONE (10:30)
--- NOTE | 2021-08-26 11:22 | PDOC ---
PULMONARY PROGRESS NOTES DATE: 08/26/21 TIME: 11:20 Subjective Hemodynamically stable overnight Currently on assist control ventilation Patient remains intubated, and sedated, on heparin drip and IABP 1:1 Status post cardiac arrest/intubated on 08/23/2021 Patient is currently off vasopressors medication Vitals Vital Signs Date Time Temp Pulse Resp B/P (MAP) Pulse Ox O2 Delivery O2 Flow Rate FiO2 08/26/21 11:07 92 Ventilator 08/26/21 10:00 68 32 123/63 08/26/21 08:00 97.7 97.7 Comments Patient remains intubated and sedated, unable to report review of systems at this time. Lungs: Crackles Cardiovascular: S1, S2 Abdomen: Soft, Non-tender Extremities: No Edema Skin: Warm Labs Laboratory Tests Test 08/24/21 15:38 08/24/21 21:30 08/25/21 05:40 08/25/21 08:00 Heparin Anti-Xa Act, Unfractionated 0.30 IU/mL (0.30-0.70) 0.30 IU/mL (0.30-0.70) 0.22 IU/mL (0.30-0.70) White Blood Count 8.6 x10^3/uL (4.0-11.0) Red Blood Count 3.17 x10^6/uL (4.30-5.70) Hemoglobin 9.5 g/dL (13.0-17.5) Hematocrit 28.7 % (39.0-53.0) Mean Corpuscular Volume 91 fL (79-100) Mean Corpuscular Hemoglobin 30 pg (25-35) Mean Corpuscular Hemoglobin Concent 33 g/dL (31-37) Red Cell Distribution Width 14.2 % (11.5-14.5) Platelet Count 283 x10^3/uL (140-400) Sodium Level 150 mmol/L (136-145) Potassium Level 3.4 mmol/L (3.5-5.1) Chloride Level 113 mmol/L (98-107) Carbon Dioxide Level 29 mmol/L (21-32) Anion Gap 8 (6-14) Blood Urea Nitrogen 36 mg/dL (8-26) Creatinine 1.2 mg/dL (0.7-1.3) Estimated GFR (Cockcroft-Gault) 61.1 BUN/Creatinine Ratio 30 (6-20) Glucose Level 155 mg/dL (70-99) Calcium Level 7.3 mg/dL (8.5-10.1) Total Bilirubin 0.5 mg/dL (0.2-1.0) Aspartate Amino Transf (AST/SGOT) 155 U/L (15-37) Alanine Aminotransferase (ALT/SGPT) 67 U/L (16-63) Alkaline Phosphatase 100 U/L (46-116) Creatine Kinase 376 U/L (39-308) Total Protein 5.1 g/dL (6.4-8.2) Albumin 1.7 g/dL (3.4-5.0) Albumin/Globulin Ratio 0.5 (1.0-1.7) O2 Saturation 98 % (92-99) Arterial Blood pH 7.29 (7.35-7.45) Arterial Blood pCO2 at Patient Temp 53 mmHg (35-46) Arterial Blood pO2 at Patient Temp 118 mmHg (65-108) Arterial Blood HCO3 25 mmol/L (21-28) Arterial Blood Base Excess -2 mmol/L (-3-3) FiO2 100/ac30 400 +7 Test 08/25/21 12:15 08/25/21 18:35 08/26/21 00:25 08/26/21 04:30 Heparin Anti-Xa Act, Unfractionated 0.31 IU/mL (0.30-0.70) 0.35 IU/mL (0.30-0.70) 0.34 IU/mL (0.30-0.70) White Blood Count 7.3 x10^3/uL (4.0-11.0) Red Blood Count 3.07 x10^6/uL (4.30-5.70) Hemoglobin 9.0 g/dL (13.0-17.5) Hematocrit 27.9 % (39.0-53.0) Mean Corpuscular Volume 91 fL (79-100) Mean Corpuscular Hemoglobin 29 pg (25-35) Mean Corpuscular Hemoglobin Concent 32 g/dL (31-37) Red Cell Distribution Width 14.3 % (11.5-14.5) Platelet Count 314 x10^3/uL (140-400) Sodium Level 146 mmol/L (136-145) Potassium Level 3.4 mmol/L (3.5-5.1) Chloride Level 109 mmol/L (98-107) Carbon Dioxide Level 31 mmol/L (21-32) Anion Gap 6 (6-14) Blood Urea Nitrogen 35 mg/dL (8-26) Creatinine 1.2 mg/dL (0.7-1.3) Estimated GFR (Cockcroft-Gault) 61.1 BUN/Creatinine Ratio 29 (6-20) Glucose Level 171 mg/dL (70-99) Calcium Level 7.1 mg/dL (8.5-10.1) Magnesium Level 2.1 mg/dL (1.8-2.4) Total Bilirubin 0.4 mg/dL (0.2-1.0) Aspartate Amino Transf (AST/SGOT) 71 U/L (15-37) Alanine Aminotransferase (ALT/SGPT) 57 U/L (16-63) Alkaline Phosphatase 99 U/L (46-116) Creatine Kinase 107 U/L (39-308) Total Protein 5.4 g/dL (6.4-8.2) Albumin 1.5 g/dL (3.4-5.0) Albumin/Globulin Ratio 0.4 (1.0-1.7) Test 08/26/21 08:00 O2 Saturation 95 % (92-99) Arterial Blood pH 7.34 (7.35-7.45) Arterial Blood pCO2 at Patient Temp 51 mmHg (35-46) Arterial Blood pO2 at Patient Temp 76 mmHg (65-108) Arterial Blood HCO3 27 mmol/L (21-28) Arterial Blood Base Excess 1 mmol/L (-3-3) FiO2 80/ac 30 400 +6 Laboratory Tests Test 08/25/21 12:15 08/25/21 18:35 08/26/21 00:25 08/26/21 04:30 Heparin Anti-Xa Act, Unfractionated 0.31 IU/mL (0.30-0.70) 0.35 IU/mL (0.30-0.70) 0.34 IU/mL (0.30-0.70) White Blood Count 7.3 x10^3/uL (4.0-11.0) Red Blood Count 3.07 x10^6/uL (4.30-5.70) Hemoglobin 9.0 g/dL (13.0-17.5) Hematocrit 27.9 % (39.0-53.0) Mean Corpuscular Volume 91 fL (79-100) Mean Corpuscular Hemoglobin 29 pg (25-35) Mean Corpuscular Hemoglobin Concent 32 g/dL (31-37) Red Cell Distribution Width 14.3 % (11.5-14.5) Platelet Count 314 x10^3/uL (140-400) Sodium Level 146 mmol/L (136-145) Potassium Level 3.4 mmol/L (3.5-5.1) Chloride Level 109 mmol/L (98-107) Carbon Dioxide Level 31 mmol/L (21-32) Anion Gap 6 (6-14) Blood Urea Nitrogen 35 mg/dL (8-26) Creatinine 1.2 mg/dL (0.7-1.3) Estimated GFR (Cockcroft-Gault) 61.1 BUN/Creatinine Ratio 29 (6-20) Glucose Level 171 mg/dL (70-99) Calcium Level 7.1 mg/dL (8.5-10.1) Magnesium Level 2.1 mg/dL (1.8-2.4) Total Bilirubin 0.4 mg/dL (0.2-1.0) Aspartate Amino Transf (AST/SGOT) 71 U/L (15-37) Alanine Aminotransferase (ALT/SGPT) 57 U/L (16-63) Alkaline Phosphatase 99 U/L (46-116) Creatine Kinase 107 U/L (39-308) Total Protein 5.4 g/dL (6.4-8.2) Albumin 1.5 g/dL (3.4-5.0) Albumin/Globulin Ratio 0.4 (1.0-1.7) Test 08/26/21 08:00 O2 Saturation 95 % (92-99) Arterial Blood pH 7.34 (7.35-7.45) Arterial Blood pCO2 at Patient Temp 51 mmHg (35-46) Arterial Blood pO2 at Patient Temp 76 mmHg (65-108) Arterial Blood HCO3 27 mmol/L (21-28) Arterial Blood Base Excess 1 mmol/L (-3-3) FiO2 80/ac 30 400 +6 Impression . 1. Acute hypoxic respiratory failure secondary to COVID-19 pneumonia, acute respiratory distress syndrome and possible underlying fibrosis and emphysema., Extubated 08/20, reintubated 08/23 status post CODE BLUE 2. Abnormal CT chest 3. Hypernatremia 4. Suspected underlying severe chronic obstructive pulmonary disease. 5. COVID-19 viral pneumonia.--- Covid recovered 6. Abnormal chest x-ray with bilateral diffuse infiltrates related to COVID-19 viral pneumonia.--- Covid recovered 7. Patient reintubated 08/23, status post CODE BLUE 8. Abnormal x-ray from 08/15, possible ARDS, possible pulmonary edema, possible aspiration 9. ST elevation MA status post intra-aortic balloon pump--08/23/2021 10. Emergent cardiac catheterization revealing 90% stenotic lesion 11. Echocardiogram revealing ejection fraction of 35 to 40% pulmonary artery pressure of 34 inferior septal wall hypokinesis 12. Bacteremia Staph epidermidis Plan . Updated 08/26 Continue assist-control ventilation, wean FiO2 down Intra-aortic balloon pump per cardiology Diurese Possible repeat cardiac catheterization in 48 to 72 hours Antibiotics per ID Repeat blood cultures negative Continue heparin drip Discussed with at the bedside, CCT 30 minutes Updated 08/25/2021 Continue current ventilatory support, assist-control 30/400./6/90% Follow chest x-ray/ABG, make changes as indicated Status post emergent cardiac catheterization with intra-aortic balloon pump 1:1, follow cardiology recommendations, continue heparin drip Cardiac catheterization showed: revealed thrombotic distal right posterior descending artery and right posterior lateral artery occlusion. There was moderate 50% proximal and 90% mid stenosis appeared to have significant thrombotic burden with ectasia and dilation of the coronary artery Continue diuresis per cardiology Continue vasopressor medications as needed to keep systolic blood pressure greater than 90 and MAP greater than 65, patient is currently off pressors at this time. Continue daptomycin, follow infectious disease recommendations in regards to bacteremia Follow neurology recommendations Start tube feeding, consult dietitian for recommendations DVT/GI prophylaxis: Pepcid/heparin drip Critical Care time 35 minutes CODE STATUS: Full Disposition: Overall prognosis/meaningful recovery is poor at this time. REBECCA DUGGAN MD Aug 26, 2021 11:22
--- NOTE | 2021-08-26 11:47 | PDOC ---
Infectious Disease Note Subjective: Subjective Patient intubated/sedated Does open eyes to verbal stimuli Discussed with RN Vital Signs: Vital Signs Vital Signs Date Time Temp Pulse Resp B/P (MAP) Pulse Ox O2 Delivery O2 Flow Rate FiO2 08/26/21 11:07 92 Ventilator 08/26/21 11:00 62 30 95/61 08/26/21 08:00 97.7 97.7 Physical Exam: PHYSICAL EXAM GENERAL: Intubated and sedated, opens eyes to verbal stimuli HEENT: No conjunctival petechia. ETT, OGT tube present. NECK: Supple. LUNGS: Coarse breath sounds in the bases, otherwise clear. HEART: S1, S2, irregular. I could not appreciate any murmurs. ABDOMEN: Soft, nontender, nondistended. Bowel sounds present. GENITOURINARY: Berumen in place. EXTREMITIES: Present no cyanosis. Right groin catheter removed, right upper extremity PICC line placed on 08/23/2021. DERMATOLOGIC: Warm, dry, no generalized rash. NEUROLOGIC: Unable to assess. Medications: Inpatient Meds: Medications reviewed. Labs: Lab Laboratory Tests Test 08/25/21 12:15 08/25/21 18:35 08/26/21 00:25 08/26/21 04:30 Heparin Anti-Xa Act, Unfractionated 0.31 IU/mL (0.30-0.70) 0.35 IU/mL (0.30-0.70) 0.34 IU/mL (0.30-0.70) White Blood Count 7.3 x10^3/uL (4.0-11.0) Red Blood Count 3.07 x10^6/uL (4.30-5.70) Hemoglobin 9.0 g/dL (13.0-17.5) Hematocrit 27.9 % (39.0-53.0) Mean Corpuscular Volume 91 fL (79-100) Mean Corpuscular Hemoglobin 29 pg (25-35) Mean Corpuscular Hemoglobin Concent 32 g/dL (31-37) Red Cell Distribution Width 14.3 % (11.5-14.5) Platelet Count 314 x10^3/uL (140-400) Sodium Level 146 mmol/L (136-145) Potassium Level 3.4 mmol/L (3.5-5.1) Chloride Level 109 mmol/L (98-107) Carbon Dioxide Level 31 mmol/L (21-32) Anion Gap 6 (6-14) Blood Urea Nitrogen 35 mg/dL (8-26) Creatinine 1.2 mg/dL (0.7-1.3) Estimated GFR (Cockcroft-Gault) 61.1 BUN/Creatinine Ratio 29 (6-20) Glucose Level 171 mg/dL (70-99) Calcium Level 7.1 mg/dL (8.5-10.1) Magnesium Level 2.1 mg/dL (1.8-2.4) Total Bilirubin 0.4 mg/dL (0.2-1.0) Aspartate Amino Transf (AST/SGOT) 71 U/L (15-37) Alanine Aminotransferase (ALT/SGPT) 57 U/L (16-63) Alkaline Phosphatase 99 U/L (46-116) Creatine Kinase 107 U/L (39-308) Total Protein 5.4 g/dL (6.4-8.2) Albumin 1.5 g/dL (3.4-5.0) Albumin/Globulin Ratio 0.4 (1.0-1.7) Test 08/26/21 08:00 O2 Saturation 95 % (92-99) Arterial Blood pH 7.34 (7.35-7.45) Arterial Blood pCO2 at Patient Temp 51 mmHg (35-46) Arterial Blood pO2 at Patient Temp 76 mmHg (65-108) Arterial Blood HCO3 27 mmol/L (21-28) Arterial Blood Base Excess 1 mmol/L (-3-3) FiO2 80/ac 30 400 +6 Objective: Assessment: Fever multifactorial s/p code ,possible aspiration pattern improved 1. Gram-positive bacteremia,MRSE 08/22/2021.Central line was pulled out 2. Acute hypoxic respiratory failure. 3. COVID-19 pneumonia. 4. Chronic obstructive pulmonary disease with possible underlying pulmonary fibrosis, aspiration pneumonia. 5. Status post code atrial fibrillation with rapid ventricular response, ventricular fibrillation, status post defibrillation, epinephrine, bicarbonate drip, status post cardiac catheterization. IABP placement. 6. Severe protein-calorie malnutrition. 7. Abnormal liver function tests, likely shock liver. 8. Anemia. 9. Encephalopathy likely anoxic 10.Electrolyte abn 11.Leucocytosis improving Plan: Plan of Care cont daptomycin,Zyvox,Zosyn. CPK 376 ,repeat 107 monitor closely f/u Repeat blood cultures neg so far Follow up labs and cultures. Continue supportive care. Central lihe had been pulled out earlier during this hosp per staff PICC line was placed on 08/23/2021. If repeat blood cultures are positive, the patient will need PICC line removal. Remvoe Groin line if able Critically ill. Prognosis guarded. Discussed with [id number] at bedside Discussed with RN. SOFIA LOWERY MD Aug 26, 2021 11:47
[2021-08-26] MEDS: DAPTOmycin (GENERIC) IVPB 520 MG in IV NORMAL SALINE 50ML 50 ML IV SCH (12:57)
--- NOTE | 2021-08-26 15:56 | PDOC ---
CARDIOLOGY PROGRESS NOTE SUBJECTIVE: No acute events overnight. Off vasopressors for more than 24 hours. Vent settings improving. No arrhythmias on tele Discussed with family and nursing at bedside. OBJECTIVE: Vital Signs/I&O: Vital Signs Date Time Temp Pulse Resp B/P (MAP) Pulse Ox O2 Delivery O2 Flow Rate FiO2 08/26/21 15:00 70 30 89/58 97 Ventilator 08/26/21 12:00 98.0 98.0 I & O 08/25/21 08/25/21 08/26/21 15:00 23:00 07:00 Intake Total 1884.5 ml 1867 ml Output Total 1160 ml 400 ml 390 ml Balance -1160 ml 1484.5 ml 1477 ml Objective: GEN.: No apparent distress. Sedated. HEENT: Head is normocephalic, atraumatic NECK: Supple. LUNGS: Clear to auscultation. HEART: RRR, S1, S2 present. Peripheral pulses intact ABDOMEN: Soft, nontender. Positive bowel sounds. EXTREMITIES: Without any cyanosis. Right groin access site is c/d/i. NEUROLOGIC: Sedated. PSYCHIATRIC: Sedated SKIN: No ulcerations CURRENT MEDICATIONS: Lasix 40mg IVP bid. Amiodarone 200mg daily Atorvastatin 40mg daily Plavix 75mg daily ASA 81mg daily Hep gtt DIAGNOSTIC TESTING: labs reviewed. ASSESSMENT: 1. Covid 19 PNA 2. Inferior STEMI with embolic disease. 3. Resp failure 4. Cardiogenic shock requiring IABP -removed today 5 .Dyslipidemia 6. HTN PLAN: 1. IABP removed today. 2. Restart heparin this evening. 3. Discussed with family, when vent settings are at baseline, then we will plan for repeat cardiac cath. Until then continue current meds. Supportive care. Justicifation of Admission Dx: Justifications for Admission: Justification of Admission Dx: N/A TEDDY ANGLIN MD Aug 26, 2021 15:56
--- NOTE | 2021-08-26 19:45 | PDOC ---
PROGRESS NOTES DOS: DATE: 08/26/21 TIME: 19:45 Plan Anoxic encephalopathy,, atrial fibrillation, multiorgan damage No new clinical seizures S/p CODE BLUE, cardiac arrest, acute on chronic respiratory failure, hyponatremia, A. fib, myocardial infarction, shock, Covid pneumonia, on antibiotics, on Keppra, prognosis guarded, continue medical management. unstable to undergo head CT no new clinical seizures, Thank you for allowing me to take part in this patient's care. Please not hesitate to contact me with questions. Transcribed using dictation device. The dictation could contain irregularities inherent in the voice to text conversion software, which may not be detected during the document review process. Please contact our office in case of any confusion or for any clarification, as needed. Subjective Patient is intubated sedated no new clinical seizures Objective Vital Signs Date Time Temp Pulse Resp B/P (MAP) Pulse Ox O2 Delivery O2 Flow Rate FiO2 08/26/21 18:00 68 30 151/90 100 Ventilator 08/26/21 16:00 98.8 98.8 Intake and Output 08/26/21 07:00 Intake Total 3751.5 ml Output Total 1950 ml Balance 1801.5 ml Intake Oral 0 ml IV Total 2759.5 ml Tube Feeding 472 ml Other 520 ml Output Urine Total 1950 ml PHYSICAL EXAM General: Well-developed, well-nourished white male in no acute distress HEENT: Normocephalic andatraumatic. Temporal arteriespulsatile and nontender. Neck: Supple without bruit, no meningismus Musculoskeletal: Stability:see neurologic. Gait exam:see neurologic. Tone:see neurologic.Strength:see neurologic. Neurological: Mental Status:Intubated, no response to voice, no understanding of commands. Cranial Nerves:Pupils equal and reactive to light. There is no facial asymmetry.Reflexes:1-2 and symmetric with flexor plantar responses. Motor:No withdrawal to pain. Coordination and gait:Not testable. Sensory:Not testable. Review of Relevant I have reviewed the following items shey (where applicable) has been applied. Labs Laboratory Tests Test 08/24/21 21:30 08/25/21 05:40 08/25/21 08:00 08/25/21 12:15 Heparin Anti-Xa Act, Unfractionated 0.30 IU/mL (0.30-0.70) 0.22 IU/mL (0.30-0.70) 0.31 IU/mL (0.30-0.70) White Blood Count 8.6 x10^3/uL (4.0-11.0) Red Blood Count 3.17 x10^6/uL (4.30-5.70) Hemoglobin 9.5 g/dL (13.0-17.5) Hematocrit 28.7 % (39.0-53.0) Mean Corpuscular Volume 91 fL (79-100) Mean Corpuscular Hemoglobin 30 pg (25-35) Mean Corpuscular Hemoglobin Concent 33 g/dL (31-37) Red Cell Distribution Width 14.2 % (11.5-14.5) Platelet Count 283 x10^3/uL (140-400) Sodium Level 150 mmol/L (136-145) Potassium Level 3.4 mmol/L (3.5-5.1) Chloride Level 113 mmol/L (98-107) Carbon Dioxide Level 29 mmol/L (21-32) Anion Gap 8 (6-14) Blood Urea Nitrogen 36 mg/dL (8-26) Creatinine 1.2 mg/dL (0.7-1.3) Estimated GFR (Cockcroft-Gault) 61.1 BUN/Creatinine Ratio 30 (6-20) Glucose Level 155 mg/dL (70-99) Calcium Level 7.3 mg/dL (8.5-10.1) Total Bilirubin 0.5 mg/dL (0.2-1.0) Aspartate Amino Transf (AST/SGOT) 155 U/L (15-37) Alanine Aminotransferase (ALT/SGPT) 67 U/L (16-63) Alkaline Phosphatase 100 U/L (46-116) Creatine Kinase 376 U/L (39-308) Total Protein 5.1 g/dL (6.4-8.2) Albumin 1.7 g/dL (3.4-5.0) Albumin/Globulin Ratio 0.5 (1.0-1.7) O2 Saturation 98 % (92-99) Arterial Blood pH 7.29 (7.35-7.45) Arterial Blood pCO2 at Patient Temp 53 mmHg (35-46) Arterial Blood pO2 at Patient Temp 118 mmHg (65-108) Arterial Blood HCO3 25 mmol/L (21-28) Arterial Blood Base Excess -2 mmol/L (-3-3) FiO2 100/ac30 400 +7 Test 08/25/21 18:35 08/26/21 00:25 08/26/21 04:30 08/26/21 08:00 Heparin Anti-Xa Act, Unfractionated 0.35 IU/mL (0.30-0.70) 0.34 IU/mL (0.30-0.70) White Blood Count 7.3 x10^3/uL (4.0-11.0) Red Blood Count 3.07 x10^6/uL (4.30-5.70) Hemoglobin 9.0 g/dL (13.0-17.5) Hematocrit 27.9 % (39.0-53.0) Mean Corpuscular Volume 91 fL (79-100) Mean Corpuscular Hemoglobin 29 pg (25-35) Mean Corpuscular Hemoglobin Concent 32 g/dL (31-37) Red Cell Distribution Width 14.3 % (11.5-14.5) Platelet Count 314 x10^3/uL (140-400) Sodium Level 146 mmol/L (136-145) Potassium Level 3.4 mmol/L (3.5-5.1) Chloride Level 109 mmol/L (98-107) Carbon Dioxide Level 31 mmol/L (21-32) Anion Gap 6 (6-14) Blood Urea Nitrogen 35 mg/dL (8-26) Creatinine 1.2 mg/dL (0.7-1.3) Estimated GFR (Cockcroft-Gault) 61.1 BUN/Creatinine Ratio 29 (6-20) Glucose Level 171 mg/dL (70-99) Calcium Level 7.1 mg/dL (8.5-10.1) Magnesium Level 2.1 mg/dL (1.8-2.4) Total Bilirubin 0.4 mg/dL (0.2-1.0) Aspartate Amino Transf (AST/SGOT) 71 U/L (15-37) Alanine Aminotransferase (ALT/SGPT) 57 U/L (16-63) Alkaline Phosphatase 99 U/L (46-116) Creatine Kinase 107 U/L (39-308) Total Protein 5.4 g/dL (6.4-8.2) Albumin 1.5 g/dL (3.4-5.0) Albumin/Globulin Ratio 0.4 (1.0-1.7) O2 Saturation 95 % (92-99) Arterial Blood pH 7.34 (7.35-7.45) Arterial Blood pCO2 at Patient Temp 51 mmHg (35-46) Arterial Blood pO2 at Patient Temp 76 mmHg (65-108) Arterial Blood HCO3 27 mmol/L (21-28) Arterial Blood Base Excess 1 mmol/L (-3-3) FiO2 80/ac 30 400 +6 Laboratory Tests Test 08/26/21 00:25 08/26/21 04:30 08/26/21 08:00 Heparin Anti-Xa Act, Unfractionated 0.34 IU/mL (0.30-0.70) White Blood Count 7.3 x10^3/uL (4.0-11.0) Red Blood Count 3.07 x10^6/uL (4.30-5.70) Hemoglobin 9.0 g/dL (13.0-17.5) Hematocrit 27.9 % (39.0-53.0) Mean Corpuscular Volume 91 fL (79-100) Mean Corpuscular Hemoglobin 29 pg (25-35) Mean Corpuscular Hemoglobin Concent 32 g/dL (31-37) Red Cell Distribution Width 14.3 % (11.5-14.5) Platelet Count 314 x10^3/uL (140-400) Sodium Level 146 mmol/L (136-145) Potassium Level 3.4 mmol/L (3.5-5.1) Chloride Level 109 mmol/L (98-107) Carbon Dioxide Level 31 mmol/L (21-32) Anion Gap 6 (6-14) Blood Urea Nitrogen 35 mg/dL (8-26) Creatinine 1.2 mg/dL (0.7-1.3) Estimated GFR (Cockcroft-Gault) 61.1 BUN/Creatinine Ratio 29 (6-20) Glucose Level 171 mg/dL (70-99) Calcium Level 7.1 mg/dL (8.5-10.1) Magnesium Level 2.1 mg/dL (1.8-2.4) Total Bilirubin 0.4 mg/dL (0.2-1.0) Aspartate Amino Transf (AST/SGOT) 71 U/L (15-37) Alanine Aminotransferase (ALT/SGPT) 57 U/L (16-63) Alkaline Phosphatase 99 U/L (46-116) Creatine Kinase 107 U/L (39-308) Total Protein 5.4 g/dL (6.4-8.2) Albumin 1.5 g/dL (3.4-5.0) Albumin/Globulin Ratio 0.4 (1.0-1.7) O2 Saturation 95 % (92-99) Arterial Blood pH 7.34 (7.35-7.45) Arterial Blood pCO2 at Patient Temp 51 mmHg (35-46) Arterial Blood pO2 at Patient Temp 76 mmHg (65-108) Arterial Blood HCO3 27 mmol/L (21-28) Arterial Blood Base Excess 1 mmol/L (-3-3) FiO2 80/ac 30 400 +6 Microbiology 08/24/21 Blood Culture - Preliminary, Resulted NO GROWTH AFTER 2 DAYS 08/23/21 Respiratory Culture Gram Stain - Final, Complete 08/23/21 Respiratory Culture - Final, Complete Medications Current Medications Dexamethasone Sodium Phosphate (Decadron) 6 mg DAILY IVP Last administered on 08/10/21at 08:29; Start 08/01/21 at 09:00; Stop 08/10/21 at 09:01; Status DC Heparin Sodium (Porcine) (Heparin Sodium) 5,000 unit Q8HRS SQ Last administered on 08/20/21at 05:41; Start 07/31/21 at 14:00; Stop 08/20/21 at 08:37; Status DC Famotidine (Pepcid Vial) 20 mg BID IVP Last administered on 08/26/21at 08:25; Start 07/31/21 at 14:00 Fentanyl Citrate 30 ml @ 2.5 mls/hr CONT PRN IV SEE PROTOCOL Last administered on 07/31/21at 12:49; Start 07/31/21 at 12:15; Stop 07/31/21 at 16:19; Status DC Midazolam HCl 100 ml @ 1 mls/hr CONT PRN IV SEE PROTOCOL Last administered on 08/26/21at 16:44; Start 07/31/21 at 12:15 Propofol 100 ml @ 3.45 mls/hr CONT PRN IV PER PROTOCOL Last administered on 08/20/21at 03:08; Start 07/31/21 at 12:15 Vecuronium [place] (Norcuron Bolus) 6 mg PRN 1X PRN IV VENT INDUCTION; Start 07/31/21 at 12:15; Stop 08/01/21 at 12:14; Status DC Glycerin/ Hypromellose/ Polyethylene (Artificial Tears) 1 drop PRN Q1HR PRN OU DRY EYE; Start 07/31/21 at 12:15 Dexmedetomidine HCl 400 mcg/ Sodium Chloride 100 ml @ 0 mls/hr CONT PRN IV PER PROTOCOL Last administered on 08/17/21at 12:55; Start 07/31/21 at 12:15 Midazolam HCl (Versed) 5 mg PRN 1X PRN IVP VENT INDUCTION; Start 07/31/21 at 12:15; Stop 08/01/21 at 12:14; Status DC Sodium Chloride 500 ml @ 500 mls/hr 1X PRN PRN IV SEE COMMENTS; Start 07/31/21 at 12:15 Atropine Sulfate (ATROPINE 0.5mg SYRINGE) 0.5 mg PRN Q5MIN PRN IV SEE COMMENTS; Start 07/31/21 at 12:15 Famotidine (Pepcid Vial) 20 mg BID IVP ; Start 07/31/21 at 21:00; Status UNV Piperacillin Sod/ Tazobactam Sod (Zosyn Per Pharmacy) 1 each PRN DAILY PRN MC SEE COMMENTS; Start 07/31/21 at 15:15; Stop 08/08/21 at 12:29; Status DC Piperacillin Sod/ Tazobactam Sod 3.375 gm/Sodium Chloride 50 ml @ 100 mls/hr Q6HRS IV Last administered on 08/07/21at 11:20; Start 07/31/21 at 18:00; Stop 08/07/21 at 17:59; Status DC Fentanyl Citrate 55 ml @ 1 mls/hr CONT PRN IV SEE PROTOCOL Last administered on 08/26/21at 16:43; Start 07/31/21 at 15:45 Insulin Human Lispro (HumaLOG) 0-7 UNITS Q6HRS SQ ; Start 08/02/21 at 06:00; Stop 08/07/21 at 08:09; Status DC Dextrose (Dextrose 50%-Water Syringe) 12.5 gm PRN Q15MIN PRN IV SEE COMMENTS; Start 08/01/21 at 23:00 Vecuronium [place] (Norcuron Bolus) 6 mg PRN Q6HRS PRN IV VENTILATOR COMPLIANCE Last administered on 08/23/21at 18:29; Start 08/06/21 at 13:45 Vecuronium [place] (Norcuron Bolus) 10 mg STK-MED ONCE IV ; Start 08/06/21 at 13:34; Stop 08/07/21 at 13:38; Status DC Sterile Water (WATER for RESP) 1,000 ml CONT PRN INH VIA VAPOTHERM DEVICE; Start 08/12/21 at 09:45; Status Cancel Dexamethasone Sodium Phosphate (Decadron) 6 mg DAILY IVP ; Start 08/17/21 at 09:00; Stop 08/16/21 at 13:31; Status DC Dexamethasone Sodium Phosphate (Decadron) 10 mg 1X ONCE IV ; Start 08/16/21 at 12:30; Stop 08/16/21 at 13:31; Status DC Acetaminophen (Tylenol) 650 mg PRN Q6HRS PRN PEG MILD PAIN / TEMP > 100.3'F Last administered on 08/20/21at 03:50; Start 08/17/21 at 00:15 Heparin Sodium (Porcine) (Heparin Sodium) 5,000 unit Q8HRS SQ Last administered on 08/23/21at 05:39; Start 08/21/21 at 14:00; Stop 08/23/21 at 18:33; Status DC Fentanyl Citrate (Fentanyl 2ml Vial) 25 mcg PRN Q5MIN PRN IVP MILD PAIN 1-3; Start 08/21/21 at 06:00; Stop 08/22/21 at 05:59; Status DC Fentanyl Citrate (Fentanyl 2ml Vial) 50 mcg PRN Q5MIN PRN IVP MODERATE PAIN 4- 6; Start 08/21/21 at 06:00; Stop 08/22/21 at 05:59; Status DC Morphine Sulfate (Morphine Sulfate) 1 mg PRN Q10MIN PRN IVP SEVERE PAIN 7-10; Start 08/21/21 at 06:00; Stop 08/22/21 at 05:59; Status DC Ringer's Solution 1,000 ml @ 30 mls/hr Q24H IV ; Start 08/21/21 at 06:00; Stop 08/21/21 at 17:59; Status DC Hydromorphone HCl (Dilaudid) 0.5 mg PRN Q10MIN PRN IVP SEVERE PAIN 7-10, 2nd CHOICE; Start 08/21/21 at 06:00; Stop 08/22/21 at 05:59; Status DC Prochlorperazine Edisylate (Compazine) 5 mg PACU PRN PRN IVP NAUSEA, MRX1; Start 08/21/21 at 06:00; Stop 08/22/21 at 05:59; Status DC Haloperidol Lactate (Haldol Inj) 5 mg PRN Q8HRS PRN IVP AGITATION; Start 08/22/21 at 10:45; Stop 08/22/21 at 10:45; Status DC Haloperidol Lactate (Haldol Inj) 5 mg Q8HRS IVP Last administered on 08/23/21at 05:38; Start 08/22/21 at 11:00; Stop 08/24/21 at 13:52; Status DC Acetaminophen (Tylenol Supp) 650 mg Q4H ONCE MD Last administered on 08/22/21at 11:45; Start 08/22/21 at 11:30; Stop 08/22/21 at 11:31; Status DC Vancomycin HCl (Vanco Per Pharmacy) 1 each PRN DAILY PRN MC SEE COMMENTS Last administered on 08/23/21at 12:21; Start 08/22/21 at 11:30; Stop 08/24/21 at 09:14; Status DC Piperacillin Sod/ Tazobactam Sod (Zosyn Per Pharmacy) 1 each PRN DAILY PRN MC SEE COMMENTS; Start 08/22/21 at 11:30 Piperacillin Sod/ Tazobactam Sod 4.5 gm/Dextrose 100 ml @ 200 mls/hr Q6HRS IV Last administered on 08/26/21at 18:11; Start 08/22/21 at 12:00 Vancomycin HCl 2 gm/Sodium Chloride 500 ml @ 250 mls/hr 1X ONCE IV Last administered on 08/22/21at 12:34; Start 08/22/21 at 13:00; Stop 08/22/21 at 14:59; Status DC Acetaminophen (Tylenol Supp) 650 mg PRN Q4HRS PRN MD MILD PAIN / TEMP > 100.3'F Last administered on 08/22/21at 23:32; Start 08/22/21 at 11:45 Dextrose/Lactated Ringer's 1,000 ml @ 80 mls/hr [id number] IV Last administered on 08/26/21at 04:56; Start 08/22/21 at 12:45 Vancomycin HCl 1 gm/Sodium Chloride 250 ml @ 250 mls/hr Q8H IV Last administered on 08/24/21at 04:00; Start 08/22/21 at 20:00; Stop 08/24/21 at 09:14; Status DC Vancomycin HCl (Vancomycin Trough Level) 1 each 1X ONCE MC ; Start 08/23/21 at 11:30; Stop 08/24/21 at 09:14; Status DC Etomidate (Amidate) 20 mg STK-MED ONCE IV ; Start 08/23/21 at 11:25; Stop 08/23/21 at 11:25; Status DC Succinylcholine Chloride (Anectine) 200 mg STK-MED ONCE .ROUTE ; Start 08/23/21 at 11:25; Stop 08/23/21 at 11:26; Status DC Etomidate (Amidate) 20 mg 1X ONCE IV Last administered on 08/23/21at 12:21; Start 08/23/21 at 12:15; Stop 08/23/21 at 12:16; Status DC Succinylcholine Chloride (Anectine) 100 mg 1X ONCE IV Last administered on at 12:21; Start 08/23/21 at 12:15; Stop 08/23/21 at 12:16; Status DC Methylprednisolone Sodium Succinate (SOLU-Medrol 125MG VIAL) 125 mg Q8HRS IV Last administered on 08/26/21at 14:54; Start 08/23/21 at 14:00 Furosemide (Lasix) 40 mg 1X ONCE IVP Last administered on 08/23/21at 13:19; Start 08/23/21 at 12:45; Stop 08/23/21 at 12:56; Status DC Furosemide (Lasix) 40 mg DAILY IVP Last administered on 08/24/21at 07:24; Start 08/24/21 at 09:00; Stop 08/24/21 at 11:24; Status DC Digoxin (Lanoxin) 500 mcg 1X ONCE IV Last administered on 08/23/21at 15:16; Start 08/23/21 at 15:30; Stop 08/23/21 at 15:31; Status DC Amiodarone HCl 150 mg/Dextrose 103 ml @ 600 mls/hr 1X ONCE IV ; Start 08/23/21 at 16:00; Stop 08/23/21 at 16:10; Status DC Amiodarone HCl 450 mg/Dextrose 259 ml @ 33 mls/hr CONT PRN IV SEE I/O RECORD Last administered on 08/24/21at 01:22; Start 08/23/21 at 16:00; Stop 08/24/21 at 15:59; Status DC Iodixanol (Visipaque 320) 100 ml STK-MED ONCE .ROUTE ; Start 08/23/21 at 16:00; Stop 08/23/21 at 16:00; Status DC Lidocaine HCl (Lidocaine 1% 20ml Vial) 20 ml STK-MED ONCE .ROUTE ; Start 08/23/21 at 16:00; Stop 08/23/21 at 16:00; Status DC Heparin Sodium/ Sodium Chloride 1,500 ml @ As Directed STK-MED ONCE .ROUTE ; Start 08/23/21 at 16:00; Stop 08/23/21 at 16:00; Status DC Amiodarone HCl (Cordarone) 150 mg STK-MED ONCE .ROUTE ; Start 08/23/21 at 16:01; Stop 08/23/21 at 16:01; Status DC Amiodarone HCl (Cordarone) 150 mg 1X ONCE IVP Last administered on 08/23/21at 16:23; Start 08/23/21 at 16:15; Stop 08/23/21 at 16:16; Status DC Aspirin (Aspirin Chewable) 324 mg 1X ONCE PO Last administered on 08/23/21at 16:07; Start 08/23/21 at 16:15; Stop 08/23/21 at 16:16; Status DC Aspirin (Aspirin Chewable) 81 mg STK-MED ONCE .ROUTE ; Start 08/23/21 at 16:06; Stop 08/23/21 at 16:06; Status DC Heparin Sodium (Porcine) (Heparin Sodium) 10,000 unit STK-MED ONCE .ROUTE ; Start 08/23/21 at 16:23; Stop 08/23/21 at 16:24; Status DC Verapamil HCl (Verapamil) 5 mg STK-MED ONCE .ROUTE ; Start 08/23/21 at 16:23; Stop 08/23/21 at 16:24; Status DC Nitroglycerin (Nitroglycerin) 200 mcg STK-MED ONCE .ROUTE ; Start 08/23/21 at 16:23; Stop 08/23/21 at 16:24; Status DC Aspirin (Aspirin Chewable) 81 mg DAILYWBKFT PO Last administered on 08/26/21at 08:26; Start 08/24/21 at 08:00 Phenylephrine HCl 50 mg/Sodium Chloride 255 ml @ 14.351 mls/ hr CONT PRN IV PER PROTOCOL Last administered on 08/23/21at 16:42; Start 08/23/21 at 16:45 Phenylephrine HCl (PHENYLEPHRINE in 0.9% NACL PF) 1 mg STK-MED ONCE IV ; Start 08/23/21 at 16:41; Stop 08/23/21 at 16:41; Status DC Heparin Sodium (Porcine) (Heparin Sodium) 10,000 unit STK-MED ONCE .ROUTE ; Start 08/23/21 at 16:47; Stop 08/23/21 at 16:47; Status DC Norepinephrine Bitartrate 8 mg/ Dextrose 258 ml @ 18.15 mls/ hr CONT PRN IV PER PROTOCOL Last administered on 08/24/21at 02:08; Start 08/23/21 at 17:00 Iodixanol (Visipaque 320) 100 ml STK-MED ONCE .ROUTE ; Start 08/23/21 at 17:07; Stop 08/23/21 at 17:07; Status DC Nitroglycerin (Nitroglycerin) 200 mcg 1X ONCE IART Last administered on 08/23/21at 16:35; Start 08/23/21 at 17:15; Stop 08/23/21 at 17:16; Status DC Verapamil HCl (Verapamil) 2.5 mg 1X ONCE IART Last administered on 08/23/21at 16:35; Start 08/23/21 at 17:15; Stop 08/23/21 at 17:16; Status DC Heparin Sodium (Porcine) (Heparin Sodium) 2,500 unit 1X ONCE IART Last administered on 08/23/21at 16:42; Start 08/23/21 at 17:15; Stop 08/23/21 at 17:16; Status DC Heparin Sodium/ Sodium Chloride (HEPARIN for ARTERIAL LINE FLUSH) 1,000 unit 1X ONCE IART Last administered on 08/23/21at 17:15; Start 08/23/21 at 17:15; Stop 08/23/21 at 17:16; Status DC Heparin Sodium/ Sodium Chloride (HEPARIN for ARTERIAL LINE FLUSH) 4,000 unit 1X ONCE IV Last administered on 08/23/21at 17:15; Start 08/23/21 at 17:15; Stop 08/23/21 at 17:16; Status DC Iodixanol (Visipaque 320) 100 ml 1X ONCE IART Last administered on 08/23/21at 17:15; Start 08/23/21 at 17:15; Stop 08/23/21 at 17:16; Status DC Heparin Sodium (Porcine) (Heparin Sodium) 5,000 unit 1X ONCE INT CAT Last administered on 08/23/21at 16:52; Start 08/23/21 at 17:15; Stop 08/23/21 at 17:16; Status DC Tirofiban/Sodium Chloride 250 ml @ As Directed STK-MED ONCE IV ; Start 08/23/21 at 17:18; Stop 08/23/21 at 17:18; Status DC Tirofiban/Sodium Chloride 250 ml @ 16.884 mls/ hr CONT PRN IV PER PROTOCOL Last administered on 08/23/21at 17:16; Start 08/23/21 at 17:45; Stop 08/24/21 at 11:44; Status DC Heparin Sodium (Porcine) (Heparin Sodium) 5,000 unit 1X ONCE IV Last administered on 08/23/21at 17:09; Start 08/23/21 at 18:30; Stop 08/23/21 at 18:31; Status DC Levetiracetam 100 ml @ 400 mls/hr Q12HR IV Last administered on 08/26/21at 11:29; Start 08/23/21 at 21:00 Heparin Sodium/ Dextrose 250 ml @ 11.256 mls/ hr CONT PRN IV PER PROTOCOL Last administered on 08/26/21at 01:48; Start 08/23/21 at 18:45 Heparin Sodium (Porcine) (Heparin Sodium) 2,350 unit PRN Q6HRS PRN IV FOR UFH LEVEL LESS THAN 0.2 Last administered on 08/24/21at 11:11; Start 08/23/21 at 18:45 Clopidogrel Bisulfate (Plavix) 600 mg 1X ONCE PO Last administered on 08/23/21at 22:06; Start 08/23/21 at 22:30; Stop 08/23/21 at 22:31; Status DC Potassium Chloride/Water 100 ml @ 100 mls/hr Q1H IV Last administered on 08/24/21at 02:00; Start 08/23/21 at 22:00; Stop 08/24/21 at 01:59; Status DC Daptomycin 520 mg/ Sodium Chloride 50 ml @ 100 mls/hr Q24H IV Last administered on 08/26/21at 12:57; Start 08/24/21 at 11:00 Linezolid (Zyvox) 600 mg BID PO Last administered on 08/26/21 08:26; Start 08/24/21 at 10:00 Amiodarone HCl (Cordarone) 200 mg DAILY PO Last administered on 08/26/21at 08:26; Start 08/24/21 at 12:00 Furosemide (Lasix) 40 mg DAILY IVP Last administered on 08/26/21at 08:26; Start 08/25/21 at 09:00 Atorvastatin Calcium (Lipitor) 20 mg QHS PO Last administered on 08/25/21at 21:21; Start 08/24/21 at 21:00 Clopidogrel Bisulfate (Plavix) 75 mg 1X ONCE PO ; Start 08/24/21 at 11:30; Stop 08/24/21 at 11:31; Status UNV Clopidogrel Bisulfate (Plavix) 75 mg DAILYWBKFT PO Last administered on 08/26/21at 08:26; Start 08/24/21 at 12:00 Epinephrine HCl (EPINEPHrine SYRINGE) 1 mg STK-MED ONCE .ROUTE ; Start 08/23/21 at 17:00; Stop 08/24/21 at 12:21; Status DC Sodium Bicarbonate (Sodium Bicarb Adult 8.4% Syr) 50 meq STK-MED ONCE .ROUTE ; Start 08/23/21 at 17:00; Stop 08/24/21 at 12:21; Status DC Potassium Chloride/Water 100 ml @ 100 mls/hr Q1H IV Last administered on 08/25/21at 13:32; Start 08/25/21 at 10:00; Stop 08/25/21 at 12:59; Status DC Potassium Chloride/Water 100 ml @ 100 mls/hr Q1H IV Last administered on 08/26/21at 10:05; Start 08/26/21 at 09:00; Stop 08/26/21 at 11:59; Status DC Potassium Bicarbonate (Potassium Effervescent Tablet) 60 meq 1X ONCE PO Last administered on 08/26/21at 13:51; Start 08/26/21 at 10:30; Stop 08/26/21 at 10:31; Status DC Vitals/I & O Vital Sign - Last 24 Hours 08/25/21 08/25/21 08/25/21 08/25/21 20:00 20:00 21:00 22:00 Temp 97.5 97.5 Pulse 60 58 54 Resp 30 30 30 B/P (MAP) 102/50 114/48 106/46 Pulse Ox 96 97 96 O2 Delivery Mechanical Ventilator Ventilator Ventilator Ventilator 08/25/21 08/26/21 08/26/21 08/26/21 23:00 00:00 00:07 01:00 Temp 96.9 96.9 Pulse 56 58 58 Resp 30 30 30 B/P (MAP) 120/50 122/52 114/48 Pulse Ox 97 98 97 97 O2 Delivery Ventilator Ventilator Ventilator Ventilator 08/26/21 08/26/21 08/26/21 08/26/21 02:00 03:00 04:00 04:15 Temp 96.5 96.5 Pulse 58 60 60 Resp 30 30 30 B/P (MAP) 120/52 124/52 118/52 Pulse Ox 96 98 97 97 O2 Delivery Ventilator Ventilator Ventilator Ventilator 08/26/21 08/26/21 08/26/21 08/26/21 05:00 06:00 07:00 07:43 Pulse 62 62 66 Resp 30 30 30 B/P (MAP) 136/56 124/62 146/73 Pulse Ox 98 98 99 97 O2 Delivery Ventilator Ventilator Ventilator Ventilator 08/26/21 08/26/21 08/26/21 08/26/21 08:00 08:00 08:26 09:00 Temp 97.7 97.7 Pulse 68 68 73 Resp 30 32 B/P (MAP) 139/72 139/72 130/71 Pulse Ox 100 93 O2 Delivery Ventilator Mechanical Ventilator Ventilator 08/26/21 08/26/21 08/26/21 08/26/21 10:00 11:00 11:07 12:00 Temp 98.0 98.0 Pulse 68 62 63 Resp 32 30 30 B/P (MAP) 123/63 95/61 121/75 Pulse Ox 96 94 92 94 O2 Delivery Ventilator Ventilator Ventilator Ventilator 08/26/21 08/26/21 08/26/21 08/26/21 13:00 13:44 14:00 15:00 Pulse 60 64 70 Resp 30 30 30 B/P (MAP) 90/58 95/61 89/58 Pulse Ox 98 92 97 97 O2 Delivery Ventilator Ventilator Ventilator Ventilator 08/26/21 08/26/21 08/26/21 08/26/21 15:50 16:00 16:43 17:00 Temp 98.8 98.8 Pulse 61 68 Resp 30 30 B/P (MAP) 103/68 145/93 Pulse Ox 97 96 96 100 O2 Delivery Ventilator Ventilator Ventilator Ventilator 08/26/21 08/26/21 08/26/21 17:15 17:29 18:00 Pulse 68 Resp 30 B/P (MAP) 151/90 Pulse Ox 100 100 100 O2 Delivery Ventilator Ventilator Ventilator Intake and Output 08/25/21 08/25/21 08/26/21 15:00 23:00 07:00 Intake Total 1884.5 ml 1867 ml Output Total 1160 ml 400 ml 390 ml Balance -1160 ml 1484.5 ml 1477 ml Justicifation of Admission Dx: Justifications for Admission: Justification of Admission Dx: N/A MICHELLE CISNEROS MD Aug 26, 2021 19:45
[2021-08-26] MEDS: levETIRAcetam 500 MG in IV DEXTROSE 5% 100ML 100 ML IV SCH (21:59)
[2021-08-26] MEDS: ATORVASTATIN CALCIUM 20 MG TABLET PO SCH (22:04)
[2021-08-27] VITALS (24 sets, daily range): BP systolic 99–159; BP diastolic 61–92
[2021-08-27] MEDS: PIPERACILLIN/TAZOBACTAM 4.5 GM in IV DEXTROSE 5% 100ML 100 ML IV SCH ×5 (00:17→23:58)
[2021-08-27] MEDS: HEPARIN for IV BOLUS 10,000 UNIT/10 ML VIAL. IV PRN (01:28)
[2021-08-27] MEDS: MIDAZOLAM 100mg/100ml NS BAG 100 ML IV PRN ×3 (04:17→17:48)
[2021-08-27] MEDS: HEPARIN 25,000UTS/250ML PREMIX 250 ML IV PRN (05:30)
--- NOTE | 2021-08-27 06:02 | RAD ---
XR CHEST 1V INDICATION: RF COMPARISON STUDY: 08/26/2021. FINDINGS: Life Support Devices: Stable endotracheal tube, enteric tube, right PICC. Lungs: Normal lung volume. Stable diffuse bilateral opacities. Pleura: No pleural effusion or pneumothorax. Heart and Mediastinum: Stable cardiomediastinal silhouette and great vessels. Bones and Soft Tissues: Stable regional skeleton and soft tissues. IMPRESSION: 1. Stable life support devices. 2. Stable diffuse bilateral opacities. Electronically signed by: Yifan Samson MD (08/27/2021 6:00 AM) [facility]
[2021-08-27] MEDS: methylPREDNISolone SOD SUCC PF 125 MG/2 ML VIAL. IV SCH ×3 (06:19→21:58)
[2021-08-27] MEDS: ASPIRIN CHEWABLE 81 MG TABLET. PO SCH (08:00)
[2021-08-27 08:11] LABS: BASE EXCESS ABG 5 mmol/L (-3-3); HCO3 ABG 31 mmol/L (21-28); PCO2 ABG 53 mmHg (35-46); PO2 ABG 86 mmHg (65-108); SAT O2 ABG 96 % (92-99)
--- NOTE | 2021-08-27 08:15 | PDOC ---
Infectious Disease Note Subjective Subjective Patient intubated/sedated Does open eyes to verbal stimuli Discussed with ROLAND CERVANTES no n/v/d/ Vital Sign Vital Signs Vital Signs Date Time Temp Pulse Resp B/P (MAP) Pulse Ox O2 Delivery O2 Flow Rate FiO2 08/27/21 08:00 98.1 66 32 128/76 100 Ventilator 98.1 Physical Exam PHYSICAL EXAM GENERAL: Intubated and sedated, opens eyes to verbal stimuli HEENT: No conjunctival petechia. ETT, OGT tube present. NECK: Supple. LUNGS: Coarse breath sounds in the bases, otherwise clear. HEART: S1, S2, irregular. I could not appreciate any murmurs. ABDOMEN: Soft, nontender, nondistended. Bowel sounds present. GENITOURINARY: Berumen in place. EXTREMITIES: Present no cyanosis. Right groin catheter removed, right upper extremity PICC line placed on 08/23/2021. DERMATOLOGIC: Warm, dry, no generalized rash. NEUROLOGIC: Unable to assess. Labs Lab Laboratory Tests Test 08/27/21 00:15 Heparin Anti-Xa Act, Unfractionated 0.14 IU/mL (0.30-0.70) Micro Microbiology 08/24/21 Blood Culture - Preliminary, Resulted NO GROWTH AFTER 2 DAYS 08/23/21 Respiratory Culture Gram Stain - Final, Complete 08/23/21 Respiratory Culture - Final, Complete Objective Assessment Fever multifactorial s/p code ,possible aspiration pattern improved 1. Gram-positive bacteremia,MRSE 08/22/2021.Central line was pulled out 2. Acute hypoxic respiratory failure. 3. COVID-19 pneumonia. 4. Chronic obstructive pulmonary disease with possible underlying pulmonary fibrosis, aspiration pneumonia. 5. Status post code atrial fibrillation with rapid ventricular response, ventricular fibrillation, status post defibrillation, epinephrine, bicarbonate drip, status post cardiac catheterization. IABP placement. 6. Severe protein-calorie malnutrition. 7. Abnormal liver function tests, likely shock liver. 8. Anemia. 9. Encephalopathy likely anoxic 10.Electrolyte abn 11.Leucocytosis improving Plan Plan of Care cont Zyvox,Zosyn. CPK 376 ,repeat 107 monitor closely f/u Repeat blood cultures neg so far Follow up labs and cultures. Continue supportive care. Central lihe had been pulled out earlier during this hosp per staff PICC line was placed on 08/23/2021. If repeat blood cultures are positive, the patient will need PICC line removal. Remvoe Groin line if able Critically ill. Prognosis guarded. Discussed with [id number] at bedside Discussed with RN. BERNARD LOWERY MD Aug 27, 2021 08:15
[2021-08-27] MEDS: LINEZOLID 600 MG TABLET PO SCH ×2 (08:33→22:21)
[2021-08-27] MEDS: CLOPIDOGREL BISULFATE 75 MG TABLET PO SCH (08:33)
[2021-08-27] MEDS: AMIODARONE HCL 200 MG TABLET. PO SCH (08:34)
[2021-08-27] MEDS: FUROSEMIDE 40 MG/4 ML VIAL. IVP SCH (08:34)
[2021-08-27] MEDS: FAMOTIDINE 20 MG/2 ML VIAL IVP SCH ×2 (08:34→22:18)
[2021-08-27] MEDS: levETIRAcetam 500 MG in IV DEXTROSE 5% 100ML 100 ML IV SCH ×2 (08:35→21:57)
[2021-08-27] MEDS: IV DEXTROSE 5%-LACT RINGERS 1,000 ML IV SCH ×2 (08:35→17:38)
[2021-08-27] MEDS: fentaNYL HIGH DOSE PCA 55 ML IV PRN ×3 (08:42→23:58)
[2021-08-27 09:01] LABS: HEMATOCRIT 30.8 % (39.0-53.0); HEMOGLOBIN 9.9 g/dL (13.0-17.5); RED BLOOD COUNT 3.46 x10^6/uL (4.30-5.70); RED CELL DISTRIBUTION WIDTH 14.5 % (11.5-14.5); WHITE BLOOD COUNT 8.2 x10^3/uL (4.0-11.0)
[2021-08-27 09:03] LABS: FIO2 ABG 70
--- NOTE | 2021-08-27 09:15 | PDOC ---
PULMONARY PROGRESS NOTES DATE: 08/27/21 TIME: 09:15 Subjective Hemodynamically stable overnight Currently on assist control ventilation Patient remains intubated, and sedated, on heparin drip and IABP 1:1 Status post cardiac arrest/intubated on 08/23/2021 Patient is currently off vasopressors medication Vitals Vital Signs Date Time Temp Pulse Resp B/P (MAP) Pulse Ox O2 Delivery O2 Flow Rate FiO2 08/27/21 08:42 30 100 Ventilator 08/27/21 08:34 57 128/76 08/27/21 08:00 98.1 98.1 Comments Patient remains intubated and sedated, unable to report review of systems at this time. Lungs: Crackles Cardiovascular: S1, S2 Abdomen: Soft, Non-tender Extremities: No Edema Skin: Warm Labs Laboratory Tests Test 08/25/21 12:15 08/25/21 18:35 08/26/21 00:25 08/26/21 04:30 Heparin Anti-Xa Act, Unfractionated 0.31 IU/mL (0.30-0.70) 0.35 IU/mL (0.30-0.70) 0.34 IU/mL (0.30-0.70) White Blood Count 7.3 x10^3/uL (4.0-11.0) Red Blood Count 3.07 x10^6/uL (4.30-5.70) Hemoglobin 9.0 g/dL (13.0-17.5) Hematocrit 27.9 % (39.0-53.0) Mean Corpuscular Volume 91 fL (79-100) Mean Corpuscular Hemoglobin 29 pg (25-35) Mean Corpuscular Hemoglobin Concent 32 g/dL (31-37) Red Cell Distribution Width 14.3 % (11.5-14.5) Platelet Count 314 x10^3/uL (140-400) Sodium Level 146 mmol/L (136-145) Potassium Level 3.4 mmol/L (3.5-5.1) Chloride Level 109 mmol/L (98-107) Carbon Dioxide Level 31 mmol/L (21-32) Anion Gap 6 (6-14) Blood Urea Nitrogen 35 mg/dL (8-26) Creatinine 1.2 mg/dL (0.7-1.3) Estimated GFR (Cockcroft-Gault) 61.1 BUN/Creatinine Ratio 29 (6-20) Glucose Level 171 mg/dL (70-99) Calcium Level 7.1 mg/dL (8.5-10.1) Magnesium Level 2.1 mg/dL (1.8-2.4) Total Bilirubin 0.4 mg/dL (0.2-1.0) Aspartate Amino Transf (AST/SGOT) 71 U/L (15-37) Alanine Aminotransferase (ALT/SGPT) 57 U/L (16-63) Alkaline Phosphatase 99 U/L (46-116) Creatine Kinase 107 U/L (39-308) Total Protein 5.4 g/dL (6.4-8.2) Albumin 1.5 g/dL (3.4-5.0) Albumin/Globulin Ratio 0.4 (1.0-1.7) Test 08/26/21 08:00 08/27/21 00:15 08/27/21 08:05 08/27/21 08:24 O2 Saturation 95 % (92-99) 96 % (92-99) Arterial Blood pH 7.34 (7.35-7.45) 7.39 (7.35-7.45) Arterial Blood pCO2 at Patient Temp 51 mmHg (35-46) 53 mmHg (35-46) Arterial Blood pO2 at Patient Temp 76 mmHg (65-108) 86 mmHg (65-108) Arterial Blood HCO3 27 mmol/L (21-28) 31 mmol/L (21-28) Arterial Blood Base Excess 1 mmol/L (-3-3) 5 mmol/L (-3-3) FiO2 80/ac 30 400 +6 70 Heparin Anti-Xa Act, Unfractionated 0.14 IU/mL (0.30-0.70) 0.92 IU/mL (0.30-0.70) White Blood Count 8.2 x10^3/uL (4.0-11.0) Red Blood Count 3.46 x10^6/uL (4.30-5.70) Hemoglobin 9.9 g/dL (13.0-17.5) Hematocrit 30.8 % (39.0-53.0) Mean Corpuscular Volume 89 fL (79-100) Mean Corpuscular Hemoglobin 29 pg (25-35) Mean Corpuscular Hemoglobin Concent 32 g/dL (31-37) Red Cell Distribution Width 14.5 % (11.5-14.5) Platelet Count 330 x10^3/uL (140-400) Laboratory Tests Test 08/27/21 00:15 08/27/21 08:05 08/27/21 08:24 Heparin Anti-Xa Act, Unfractionated 0.14 IU/mL (0.30-0.70) 0.92 IU/mL (0.30-0.70) O2 Saturation 96 % (92-99) Arterial Blood pH 7.39 (7.35-7.45) Arterial Blood pCO2 at Patient Temp 53 mmHg (35-46) Arterial Blood pO2 at Patient Temp 86 mmHg (65-108) Arterial Blood HCO3 31 mmol/L (21-28) Arterial Blood Base Excess 5 mmol/L (-3-3) FiO2 70 White Blood Count 8.2 x10^3/uL (4.0-11.0) Red Blood Count 3.46 x10^6/uL (4.30-5.70) Hemoglobin 9.9 g/dL (13.0-17.5) Hematocrit 30.8 % (39.0-53.0) Mean Corpuscular Volume 89 fL (79-100) Mean Corpuscular Hemoglobin 29 pg (25-35) Mean Corpuscular Hemoglobin Concent 32 g/dL (31-37) Red Cell Distribution Width 14.5 % (11.5-14.5) Platelet Count 330 x10^3/uL (140-400) Impression . 1. Acute hypoxic respiratory failure secondary to COVID-19 pneumonia, acute respiratory distress syndrome and possible underlying fibrosis and emphysema., Extubated 08/20, reintubated 08/23 status post CODE BLUE 2. Abnormal CT chest 3. Hypernatremia 4. Suspected underlying severe chronic obstructive pulmonary disease. 5. COVID-19 viral pneumonia.--- Covid recovered 6. Abnormal chest x-ray with bilateral diffuse infiltrates related to COVID-19 viral pneumonia.--- Covid recovered 7. Patient reintubated 08/23, status post CODE BLUE 8. Abnormal x-ray from 08/15, possible ARDS, possible pulmonary edema, possible aspiration 9. ST elevation TN status post intra-aortic balloon pump--08/23/2021 10. Emergent cardiac catheterization revealing 90% stenotic lesion 11. Echocardiogram revealing ejection fraction of 35 to 40% pulmonary artery pressure of 34 inferior septal wall hypokinesis 12. Bacteremia Staph epidermidis Plan . Updated 08/26 Continue assist-control ventilation, wean FiO2 down Intra-aortic balloon pump per cardiology Diurese Possible repeat cardiac catheterization in 48 to 72 hours Antibiotics per ID Repeat blood cultures negative Continue heparin drip Discussed with at the bedside, CCT 30 minutes Updated 08/25/2021 Continue current ventilatory support, assist-control 30/400./6/90% Follow chest x-ray/ABG, make changes as indicated Status post emergent cardiac catheterization with intra-aortic balloon pump 1:1, follow cardiology recommendations, continue heparin drip Cardiac catheterization showed: revealed thrombotic distal right posterior descending artery and right posterior lateral artery occlusion. There was moderate 50% proximal and 90% mid stenosis appeared to have significant thrombotic burden with ectasia and dilation of the coronary artery Continue diuresis per cardiology Continue vasopressor medications as needed to keep systolic blood pressure greater than 90 and MAP greater than 65, patient is currently off pressors at this time. Continue daptomycin, follow infectious disease recommendations in regards to bacteremia Follow neurology recommendations Start tube feeding, consult dietitian for recommendations DVT/GI prophylaxis: Pepcid/heparin drip Critical Care time 35 minutes CODE STATUS: Full Disposition: Overall prognosis/meaningful recovery is poor at this time. REBECCA DUGGAN MD Aug 27, 2021 09:15
[2021-08-27 10:30] LABS: ALBUMIN 1.9 g/dL (3.4-5.0); ALBUMIN/GLOBULIN RATIO 0.5 (1.0-1.7); CALCIUM 8.1 mg/dL (8.5-10.1); CREATININE 1.1 mg/dL (0.7-1.3); GFR 67.6; POTASSIUM 3.9 mmol/L (3.5-5.1); TOTAL BILIRUBIN 0.5 mg/dL (0.2-1.0); TOTAL PROTEIN 5.4 g/dL (6.4-8.2)
[2021-08-27] MEDS: POTASSIUM BICARB 20 MEQ EFFERVESCENT TABLET. PO SCH ×3 (10:40→22:25)
--- NOTE | 2021-08-27 10:48 | PDOC ---
TETO DIAZ [employer] 08/27/21 1048: CARDIO Progress Notes Date and Time Date of Service 08/27/21 Time of Evaluation 1030 Subjective Subjective: Other (intubated ) Vitals Vitals Vital Signs Date Time Temp Pulse Resp B/P (MAP) Pulse Ox O2 Delivery O2 Flow Rate FiO2 08/27/21 08:42 30 100 Ventilator 08/27/21 08:34 57 128/76 08/27/21 08:00 98.1 98.1 Weight Weight [ ] Input and Output Intake and Output Intake and Output 08/27/21 07:00 Intake Total 3102 ml Output Total 2490 ml Balance 612 ml Intake Oral 0 ml IV Total 1412 ml Tube Feeding 1130 ml Other 560 ml Output Urine Total 2490 ml Laboratory Labs Laboratory Tests Test 08/27/21 00:15 08/27/21 08:05 08/27/21 08:24 Heparin Anti-Xa Act, Unfractionated 0.14 IU/mL (0.30-0.70) 0.92 IU/mL (0.30-0.70) O2 Saturation 96 % (92-99) Arterial Blood pH 7.39 (7.35-7.45) Arterial Blood pCO2 at Patient Temp 53 mmHg (35-46) Arterial Blood pO2 at Patient Temp 86 mmHg (65-108) Arterial Blood HCO3 31 mmol/L (21-28) Arterial Blood Base Excess 5 mmol/L (-3-3) FiO2 70 White Blood Count 8.2 x10^3/uL (4.0-11.0) Red Blood Count 3.46 x10^6/uL (4.30-5.70) Hemoglobin 9.9 g/dL (13.0-17.5) Hematocrit 30.8 % (39.0-53.0) Mean Corpuscular Volume 89 fL (79-100) Mean Corpuscular Hemoglobin 29 pg (25-35) Mean Corpuscular Hemoglobin Concent 32 g/dL (31-37) Red Cell Distribution Width 14.5 % (11.5-14.5) Platelet Count 330 x10^3/uL (140-400) Sodium Level 147 mmol/L (136-145) Potassium Level 3.9 mmol/L (3.5-5.1) Chloride Level 107 mmol/L (98-107) Carbon Dioxide Level 33 mmol/L (21-32) Anion Gap 7 (6-14) Blood Urea Nitrogen 33 mg/dL (8-26) Creatinine 1.1 mg/dL (0.7-1.3) Estimated GFR (Cockcroft-Gault) 67.6 BUN/Creatinine Ratio 30 (6-20) Glucose Level 165 mg/dL (70-99) Calcium Level 8.1 mg/dL (8.5-10.1) Total Bilirubin 0.5 mg/dL (0.2-1.0) Aspartate Amino Transf (AST/SGOT) 50 U/L (15-37) Alanine Aminotransferase (ALT/SGPT) 59 U/L (16-63) Alkaline Phosphatase 112 U/L (46-116) Total Protein 5.4 g/dL (6.4-8.2) Albumin 1.9 g/dL (3.4-5.0) Albumin/Globulin Ratio 0.5 (1.0-1.7) Microbiology Micro Microbiology 08/24/21 Blood Culture - Preliminary, Resulted NO GROWTH AFTER 3 DAYS 08/23/21 Respiratory Culture Gram Stain - Final, Complete 08/23/21 Respiratory Culture - Final, Complete Physical Exam HEENT: Other (supple ) Chest: Symmetric LUNGS: Other (MV) Heart: RRR (SR/SB) Abdomen: Other (soft ) Extremities: No Edema, Other (no edema. Eschar to left foot, second toe) Neurology: other Assessment Assessment 1. S/P cardiac arrest; multifactorial. Noted with VT shock x1. approximately <3 min to ROSC 2. Acute on chronic respiratory failure with COVID PNA, ARDS 3. Inferior STEMI with embolic disease. 4. CAD: LHC revealed thrombotic distal right posterior descending artery and right posterior lateral artery occlusion. There was moderate 50% proximal and 90% mid stenosis appeared to have significant thrombotic burden with ectasia and dilation of the coronary artery 5. Cardiogenic shock; improved. IABP removed 6. Acute on chronic systolic CHF, ICM: EF at 35-40% 7. AFIB RVR: presently SR/SB 8. Hypertension; controlled 9. Hyperlipidemia 10. Bacteremia: Gram-positive bacteremia. repeat blood cultures negative so far 11. Shock liver; improved 12. Encephalopathy with possible seizure; on Keppra 13. Black distal phalanx to left 2nd toe: possibly r/t to covid-19 Recommendations Secondary prevention Continue heparin gtt Stain, Plavix therapy Amiodarone for rhythm maintenance HF optimization; continue Lasix Aldactone, losartan. Consider transitioning ARB to Entresto upon discharge No BB with bradycardia Repeat cath in near future Ongoing support, pulmonary optimization Justicifation of Admission Dx: Justifications for Admission: Justification of Admission Dx: N/A TEDDY ANGLIN MD 08/27/21 1903: CARDIO Progress Notes Plan Plan The patient was seen and interviewed as well as examined at the bedside. The chart was reviewed. The case was discussed. Agree with the plan of care. TETO DIAZ APRN Aug 27, 2021 10:48 TEDDY ANGLIN MD Aug 27, 2021 19:03
--- NOTE | 2021-08-27 12:44 | PDOC ---
PROGRESS NOTES Date of Service DATE: 08/27/21 TIME: 12:40 Assessment Patient status post myocardial infarction and cardiac arrest. He had Covid on July 29, 2021. He was on a balloon pump but this has been discontinued. Patient with observed possible seizure activity currently on levetiracetam without any further apparent seizure activity. Patient is currently sedated with midazolam and propofol. He is still able to wake up and opens eyes briefly but does not follow commands. Plan Prognosis is guarded given the series of events that have occurred. I will be able to perform a more valid exam as sedation can be lifted. I will continue to follow. Subjective Nonverbal Objective Vital Signs Date Time Temp Pulse Resp B/P (MAP) Pulse Ox O2 Delivery O2 Flow Rate FiO2 08/27/21 11:30 100 Ventilator 08/27/21 11:00 60 30 123/77 08/27/21 08:00 98.1 98.1 Intake and Output 08/27/21 07:00 Intake Total 3102 ml Output Total 2490 ml Balance 612 ml Intake Oral 0 ml IV Total 1412 ml Tube Feeding 1130 ml Other 560 ml Output Urine Total 2490 ml PHYSICAL EXAM He was intubated, ventilated and heavily sedated. He did awake with noxious stimulation. He was not able to follow commands or look up to command. He had edema of all 4 extremities. He did not respond to visual threat but did seem to blink to loud clap. Nailbed pressure did not provoke a response in the upper extremities. He may have had a hint of withdrawal of the left lower extremity to nailbed pressure. The right toe may have been briefly upgoing to nailbed pressure. Review of Relevant I have reviewed the following items shey (where applicable) has been applied. Labs Laboratory Tests Test 08/25/21 18:35 08/26/21 00:25 08/26/21 04:30 08/26/21 08:00 Heparin Anti-Xa Act, Unfractionated 0.35 IU/mL (0.30-0.70) 0.34 IU/mL (0.30-0.70) White Blood Count 7.3 x10^3/uL (4.0-11.0) Red Blood Count 3.07 x10^6/uL (4.30-5.70) Hemoglobin 9.0 g/dL (13.0-17.5) Hematocrit 27.9 % (39.0-53.0) Mean Corpuscular Volume 91 fL (79-100) Mean Corpuscular Hemoglobin 29 pg (25-35) Mean Corpuscular Hemoglobin Concent 32 g/dL (31-37) Red Cell Distribution Width 14.3 % (11.5-14.5) Platelet Count 314 x10^3/uL (140-400) Sodium Level 146 mmol/L (136-145) Potassium Level 3.4 mmol/L (3.5-5.1) Chloride Level 109 mmol/L (98-107) Carbon Dioxide Level 31 mmol/L (21-32) Anion Gap 6 (6-14) Blood Urea Nitrogen 35 mg/dL (8-26) Creatinine 1.2 mg/dL (0.7-1.3) Estimated GFR (Cockcroft-Gault) 61.1 BUN/Creatinine Ratio 29 (6-20) Glucose Level 171 mg/dL (70-99) Calcium Level 7.1 mg/dL (8.5-10.1) Magnesium Level 2.1 mg/dL (1.8-2.4) Total Bilirubin 0.4 mg/dL (0.2-1.0) Aspartate Amino Transf (AST/SGOT) 71 U/L (15-37) Alanine Aminotransferase (ALT/SGPT) 57 U/L (16-63) Alkaline Phosphatase 99 U/L (46-116) Creatine Kinase 107 U/L (39-308) Total Protein 5.4 g/dL (6.4-8.2) Albumin 1.5 g/dL (3.4-5.0) Albumin/Globulin Ratio 0.4 (1.0-1.7) O2 Saturation 95 % (92-99) Arterial Blood pH 7.34 (7.35-7.45) Arterial Blood pCO2 at Patient Temp 51 mmHg (35-46) Arterial Blood pO2 at Patient Temp 76 mmHg (65-108) Arterial Blood HCO3 27 mmol/L (21-28) Arterial Blood Base Excess 1 mmol/L (-3-3) FiO2 80/ac 30 400 +6 Test 08/27/21 00:15 08/27/21 08:05 08/27/21 08:24 Heparin Anti-Xa Act, Unfractionated 0.14 IU/mL (0.30-0.70) 0.92 IU/mL (0.30-0.70) O2 Saturation 96 % (92-99) Arterial Blood pH 7.39 (7.35-7.45) Arterial Blood pCO2 at Patient Temp 53 mmHg (35-46) Arterial Blood pO2 at Patient Temp 86 mmHg (65-108) Arterial Blood HCO3 31 mmol/L (21-28) Arterial Blood Base Excess 5 mmol/L (-3-3) FiO2 70 White Blood Count 8.2 x10^3/uL (4.0-11.0) Red Blood Count 3.46 x10^6/uL (4.30-5.70) Hemoglobin 9.9 g/dL (13.0-17.5) Hematocrit 30.8 % (39.0-53.0) Mean Corpuscular Volume 89 fL (79-100) Mean Corpuscular Hemoglobin 29 pg (25-35) Mean Corpuscular Hemoglobin Concent 32 g/dL (31-37) Red Cell Distribution Width 14.5 % (11.5-14.5) Platelet Count 330 x10^3/uL (140-400) Sodium Level 147 mmol/L (136-145) Potassium Level 3.9 mmol/L (3.5-5.1) Chloride Level 107 mmol/L (98-107) Carbon Dioxide Level 33 mmol/L (21-32) Anion Gap 7 (6-14) Blood Urea Nitrogen 33 mg/dL (8-26) Creatinine 1.1 mg/dL (0.7-1.3) Estimated GFR (Cockcroft-Gault) 67.6 BUN/Creatinine Ratio 30 (6-20) Glucose Level 165 mg/dL (70-99) Calcium Level 8.1 mg/dL (8.5-10.1) Total Bilirubin 0.5 mg/dL (0.2-1.0) Aspartate Amino Transf (AST/SGOT) 50 U/L (15-37) Alanine Aminotransferase (ALT/SGPT) 59 U/L (16-63) Alkaline Phosphatase 112 U/L (46-116) Total Protein 5.4 g/dL (6.4-8.2) Albumin 1.9 g/dL (3.4-5.0) Albumin/Globulin Ratio 0.5 (1.0-1.7) Laboratory Tests Test 08/27/21 00:15 08/27/21 08:05 08/27/21 08:24 Heparin Anti-Xa Act, Unfractionated 0.14 IU/mL (0.30-0.70) 0.92 IU/mL (0.30-0.70) O2 Saturation 96 % (92-99) Arterial Blood pH 7.39 (7.35-7.45) Arterial Blood pCO2 at Patient Temp 53 mmHg (35-46) Arterial Blood pO2 at Patient Temp 86 mmHg (65-108) Arterial Blood HCO3 31 mmol/L (21-28) Arterial Blood Base Excess 5 mmol/L (-3-3) FiO2 70 White Blood Count 8.2 x10^3/uL (4.0-11.0) Red Blood Count 3.46 x10^6/uL (4.30-5.70) Hemoglobin 9.9 g/dL (13.0-17.5) Hematocrit 30.8 % (39.0-53.0) Mean Corpuscular Volume 89 fL (79-100) Mean Corpuscular Hemoglobin 29 pg (25-35) Mean Corpuscular Hemoglobin Concent 32 g/dL (31-37) Red Cell Distribution Width 14.5 % (11.5-14.5) Platelet Count 330 x10^3/uL (140-400) Sodium Level 147 mmol/L (136-145) Potassium Level 3.9 mmol/L (3.5-5.1) Chloride Level 107 mmol/L (98-107) Carbon Dioxide Level 33 mmol/L (21-32) Anion Gap 7 (6-14) Blood Urea Nitrogen 33 mg/dL (8-26) Creatinine 1.1 mg/dL (0.7-1.3) Estimated GFR (Cockcroft-Gault) 67.6 BUN/Creatinine Ratio 30 (6-20) Glucose Level 165 mg/dL (70-99) Calcium Level 8.1 mg/dL (8.5-10.1) Total Bilirubin 0.5 mg/dL (0.2-1.0) Aspartate Amino Transf (AST/SGOT) 50 U/L (15-37) Alanine Aminotransferase (ALT/SGPT) 59 U/L (16-63) Alkaline Phosphatase 112 U/L (46-116) Total Protein 5.4 g/dL (6.4-8.2) Albumin 1.9 g/dL (3.4-5.0) Albumin/Globulin Ratio 0.5 (1.0-1.7) Microbiology 08/24/21 Blood Culture - Preliminary, Resulted NO GROWTH AFTER 3 DAYS 08/23/21 Respiratory Culture Gram Stain - Final, Complete 08/23/21 Respiratory Culture - Final, Complete Medications Current Medications Dexamethasone Sodium Phosphate (Decadron) 6 mg DAILY IVP Last administered on 08/10/21at 08:29; Start 08/01/21 at 09:00; Stop 08/10/21 at 09:01; Status DC Heparin Sodium (Porcine) (Heparin Sodium) 5,000 unit Q8HRS SQ Last administered on 08/20/21at 05:41; Start 07/31/21 at 14:00; Stop 08/20/21 at 08:37; Status DC Famotidine (Pepcid Vial) 20 mg BID IVP Last administered on 08/27/21at 08:34; Start 07/31/21 at 14:00 Fentanyl Citrate 30 ml @ 2.5 mls/hr CONT PRN IV SEE PROTOCOL Last administered on 07/31/21at 12:49; Start 07/31/21 at 12:15; Stop 07/31/21 at 16:19; Status DC Midazolam HCl 100 ml @ 1 mls/hr CONT PRN IV SEE PROTOCOL Last administered on 08/27/21at 10:39; Start 07/31/21 at 12:15 Propofol 100 ml @ 3.45 mls/hr CONT PRN IV PER PROTOCOL Last administered on 08/20/21at 03:08; Start 07/31/21 at 12:15 Vecuronium [place] (Norcuron Bolus) 6 mg PRN 1X PRN IV VENT INDUCTION; Start 07/31/21 at 12:15; Stop 08/01/21 at 12:14; Status DC Glycerin/ Hypromellose/ Polyethylene (Artificial Tears) 1 drop PRN Q1HR PRN OU DRY EYE; Start 07/31/21 at 12:15 Dexmedetomidine HCl 400 mcg/ Sodium Chloride 100 ml @ 0 mls/hr CONT PRN IV PER PROTOCOL Last administered on 08/17/21at 12:55; Start 07/31/21 at 12:15 Midazolam HCl (Versed) 5 mg PRN 1X PRN IVP VENT INDUCTION; Start 07/31/21 at 12:15; Stop 08/01/21 at 12:14; Status DC Sodium Chloride 500 ml @ 500 mls/hr 1X PRN PRN IV SEE COMMENTS; Start 07/31/21 at 12:15 Atropine Sulfate (ATROPINE 0.5mg SYRINGE) 0.5 mg PRN Q5MIN PRN IV SEE COMMENTS; Start 07/31/21 at 12:15 Famotidine (Pepcid Vial) 20 mg BID IVP ; Start 07/31/21 at 21:00; Status UNV Piperacillin Sod/ Tazobactam Sod (Zosyn Per Pharmacy) 1 each PRN DAILY PRN MC SEE COMMENTS; Start 07/31/21 at 15:15; Stop 08/08/21 at 12:29; Status DC Piperacillin Sod/ Tazobactam Sod 3.375 gm/Sodium Chloride 50 ml @ 100 mls/hr Q6HRS IV Last administered on 08/07/21at 11:20; Start 07/31/21 at 18:00; Stop 08/07/21 at 17:59; Status DC Fentanyl Citrate 55 ml @ 1 mls/hr CONT PRN IV SEE PROTOCOL Last administered on 08/27/21at 08:42; Start 07/31/21 at 15:45 Insulin Human Lispro (HumaLOG) 0-7 UNITS Q6HRS SQ ; Start 08/02/21 at 06:00; Stop 08/07/21 at 08:09; Status DC Dextrose (Dextrose 50%-Water Syringe) 12.5 gm PRN Q15MIN PRN IV SEE COMMENTS; Start 08/01/21 at 23:00 Vecuronium [place] (Norcuron Bolus) 6 mg PRN Q6HRS PRN IV VENTILATOR COMPLIANCE Last administered on 08/23/21at 18:29; Start 08/06/21 at 13:45 Vecuronium [place] (Norcuron Bolus) 10 mg STK-MED ONCE IV ; Start 08/06/21 at 13:34; Stop 08/07/21 at 13:38; Status DC Sterile Water (WATER for RESP) 1,000 ml CONT PRN INH VIA VAPOTHERM DEVICE; Start 08/12/21 at 09:45; Status Cancel Dexamethasone Sodium Phosphate (Decadron) 6 mg DAILY IVP ; Start 08/17/21 at 09:00; Stop 08/16/21 at 13:31; Status DC Dexamethasone Sodium Phosphate (Decadron) 10 mg 1X ONCE IV ; Start 08/16/21 at 12:30; Stop 08/16/21 at 13:31; Status DC Acetaminophen (Tylenol) 650 mg PRN Q6HRS PRN PEG MILD PAIN / TEMP > 100.3'F Last administered on 08/20/21at 03:50; Start 08/17/21 at 00:15 Heparin Sodium (Porcine) (Heparin Sodium) 5,000 unit Q8HRS SQ Last administered on 08/23/21at 05:39; Start 08/21/21 at 14:00; Stop 08/23/21 at 18:33; Status DC Fentanyl Citrate (Fentanyl 2ml Vial) 25 mcg PRN Q5MIN PRN IVP MILD PAIN 1-3; Start 08/21/21 at 06:00; Stop 08/22/21 at 05:59; Status DC Fentanyl Citrate (Fentanyl 2ml Vial) 50 mcg PRN Q5MIN PRN IVP MODERATE PAIN 4- 6; Start 08/21/21 at 06:00; Stop 08/22/21 at 05:59; Status DC Morphine Sulfate (Morphine Sulfate) 1 mg PRN Q10MIN PRN IVP SEVERE PAIN 7-10; Start 08/21/21 at 06:00; Stop 08/22/21 at 05:59; Status DC Ringer's Solution 1,000 ml @ 30 mls/hr Q24H IV ; Start 08/21/21 at 06:00; Stop 08/21/21 at 17:59; Status DC Hydromorphone HCl (Dilaudid) 0.5 mg PRN Q10MIN PRN IVP SEVERE PAIN 7-10, 2nd CHOICE; Start 08/21/21 at 06:00; Stop 08/22/21 at 05:59; Status DC Prochlorperazine Edisylate (Compazine) 5 mg PACU PRN PRN IVP NAUSEA, MRX1; Start 08/21/21 at 06:00; Stop 08/22/21 at 05:59; Status DC Haloperidol Lactate (Haldol Inj) 5 mg PRN Q8HRS PRN IVP AGITATION; Start 08/22/21 at 10:45; Stop 08/22/21 at 10:45; Status DC Haloperidol Lactate (Haldol Inj) 5 mg Q8HRS IVP Last administered on 08/23/21at 05:38; Start 08/22/21 at 11:00; Stop 08/24/21 at 13:52; Status DC Acetaminophen (Tylenol Supp) 650 mg Q4H ONCE MA Last administered on 08/22/21at 11:45; Start 08/22/21 at 11:30; Stop 08/22/21 at 11:31; Status DC Vancomycin HCl (Vanco Per Pharmacy) 1 each PRN DAILY PRN MC SEE COMMENTS Last administered on 08/23/21at 12:21; Start 08/22/21 at 11:30; Stop 08/24/21 at 09:14; Status DC Piperacillin Sod/ Tazobactam Sod (Zosyn Per Pharmacy) 1 each PRN DAILY PRN MC SEE COMMENTS; Start 08/22/21 at 11:30 Piperacillin Sod/ Tazobactam Sod 4.5 gm/Dextrose 100 ml @ 200 mls/hr Q6HRS IV Last administered on 08/27/21at 11:23; Start 08/22/21 at 12:00 Vancomycin HCl 2 gm/Sodium Chloride 500 ml @ 250 mls/hr 1X ONCE IV Last administered on 08/22/21at 12:34; Start 08/22/21 at 13:00; Stop 08/22/21 at 14:59; Status DC Acetaminophen (Tylenol Supp) 650 mg PRN Q4HRS PRN MA MILD PAIN / TEMP > 100.3'F Last administered on 08/22/21at 23:32; Start 08/22/21 at 11:45 Dextrose/Lactated Ringer's 1,000 ml @ 80 mls/hr [id number] IV Last administered on 08/27/21at 08:35; Start 08/22/21 at 12:45 Vancomycin HCl 1 gm/Sodium Chloride 250 ml @ 250 mls/hr Q8H IV Last administered on 08/24/21at 04:00; Start 08/22/21 at 20:00; Stop 08/24/21 at 09:14; Status DC Vancomycin HCl (Vancomycin Trough Level) 1 each 1X ONCE MC ; Start 08/23/21 at 11:30; Stop 08/24/21 at 09:14; Status DC Etomidate (Amidate) 20 mg STK-MED ONCE IV ; Start 08/23/21 at 11:25; Stop 08/23/21 at 11:25; Status DC Succinylcholine Chloride (Anectine) 200 mg STK-MED ONCE .ROUTE ; Start 08/23/21 at 11:25; Stop 08/23/21 at 11:26; Status DC Etomidate (Amidate) 20 mg 1X ONCE IV Last administered on 08/23/21at 12:21; Start 08/23/21 at 12:15; Stop 08/23/21 at 12:16; Status DC Succinylcholine Chloride (Anectine) 100 mg 1X ONCE IV Last administered on 08/23/21at 12:21; Start 08/23/21 at 12:15; Stop 08/23/21 at 12:16; Status DC Methylprednisolone Sodium Succinate (SOLU-Medrol 125MG VIAL) 125 mg Q8HRS IV Last administered on 08/27/21at 06:19; Start 08/23/21 at 14:00 Furosemide (Lasix) 40 mg 1X ONCE IVP Last administered on 08/23/21at 13:19; Start 08/23/21 at 12:45; Stop 08/23/21 at 12:56; Status DC Furosemide (Lasix) 40 mg DAILY IVP Last administered on 08/24/21at 07:24; Start 08/24/21 at 09:00; Stop 08/24/21 at 11:24; Status DC Digoxin (Lanoxin) 500 mcg 1X ONCE IV Last administered on 08/23/21at 15:16; Start 08/23/21 at 15:30; Stop 08/23/21 at 15:31; Status DC Amiodarone HCl 150 mg/Dextrose 103 ml @ 600 mls/hr 1X ONCE IV ; Start 08/23/21 at 16:00; Stop 08/23/21 at 16:10; Status DC Amiodarone HCl 450 mg/Dextrose 259 ml @ 33 mls/hr CONT PRN IV SEE I/O RECORD Last administered on 08/24/21at 01:22; Start 08/23/21 at 16:00; Stop 08/24/21 at 15:59; Status DC Iodixanol (Visipaque 320) 100 ml STK-MED ONCE .ROUTE ; Start 08/23/21 at 16:00; Stop 08/23/21 at 16:00; Status DC Lidocaine HCl (Lidocaine 1% 20ml Vial) 20 ml STK-MED ONCE .ROUTE ; Start 08/14 at 16:00; Stop 08/23/21 at 16:00; Status DC Heparin Sodium/ Sodium Chloride 1,500 ml @ As Directed STK-MED ONCE .ROUTE ; Start 08/23/21 at 16:00; Stop 08/23/21 at 16:00; Status DC Amiodarone HCl (Cordarone) 150 mg STK-MED ONCE .ROUTE ; Start 08/23/21 at 16:01; Stop 08/23/21 at 16:01; Status DC Amiodarone HCl (Cordarone) 150 mg 1X ONCE IVP Last administered on 08/23/21at 1 6:23; Start 08/23/21 at 16:15; Stop 08/23/21 at 16:16; Status DC Aspirin (Aspirin Chewable) 324 mg 1X ONCE PO Last administered on 08/23/21at 16:07; Start 08/23/21 at 16:15; Stop 08/23/21 at 16:16; Status DC Aspirin (Aspirin Chewable) 81 mg STK-MED ONCE .ROUTE ; Start 08/23/21 at 16:06; Stop 08/23/21 at 16:06; Status DC Heparin Sodium (Porcine) (Heparin Sodium) 10,000 unit STK-MED ONCE .ROUTE ; Start 08/23/21 at 16:23; Stop 08/23/21 at 16:24; Status DC Verapamil HCl (Verapamil) 5 mg STK-MED ONCE .ROUTE ; Start 08/23/21 at 16:23; Stop 08/23/21 at 16:24; Status DC Nitroglycerin (Nitroglycerin) 200 mcg STK-MED ONCE .ROUTE ; Start 08/23/21 at 16:23; Stop 08/23/21 at 16:24; Status DC Aspirin (Aspirin Chewable) 81 mg DAILYWBKFT PO Last administered on 08/27/21at 08:00; Start 08/24/21 at 08:00 Phenylephrine HCl 50 mg/Sodium Chloride 255 ml @ 14.351 mls/ hr CONT PRN IV PER PROTOCOL Last administered on 08/23/21at 16:42; Start 08/23/21 at 16:45 Phenylephrine HCl (PHENYLEPHRINE in 0.9% NACL PF) 1 mg STK-MED ONCE IV ; Start 08/23/21 at 16:41; Stop 08/23/21 at 16:41; Status DC Heparin Sodium (Porcine) (Heparin Sodium) 10,000 unit STK-MED ONCE .ROUTE ; Start 08/23/21 at 16:47; Stop 08/23/21 at 16:47; Status DC Norepinephrine Bitartrate 8 mg/ Dextrose 258 ml @ 18.15 mls/ hr CONT PRN IV PER PROTOCOL Last administered on 08/24/21at 02:08; Start 08/23/21 at 17:00 Iodixanol (Visipaque 320) 100 ml STK-MED ONCE .ROUTE ; Start 08/23/21 at 17:07; Stop 08/23/21 at 17:07; Status DC Nitroglycerin (Nitroglycerin) 200 mcg 1X ONCE IART Last administered on 08/23/21at 16:35; Start 08/23/21 at 17:15; Stop 08/23/21 at 17:16; Status DC Verapamil HCl (Verapamil) 2.5 mg 1X ONCE IART Last administered on 08/23/21at 16:35; Start 08/23/21 at 17:15; Stop 08/23/21 at 17:16; Status DC Heparin Sodium (Porcine) (Heparin Sodium) 2,500 unit 1X ONCE IART Last administered on 08/23/21at 16:42; Start 08/23/21 at 17:15; Stop 08/23/21 at 17:16; Status DC Heparin Sodium/ Sodium Chloride (HEPARIN for ARTERIAL LINE FLUSH) 1,000 unit 1X ONCE IART Last administered on 08/23/21at 17:15; Start 08/23/21 at 17:15; Stop 08/23/21 at 17:16; Status DC Heparin Sodium/ Sodium Chloride (HEPARIN for ARTERIAL LINE FLUSH) 4,000 unit 1X ONCE IV Last administered on 08/23/21at 17:15; Start 08/23/21 at 17:15; Stop 08/23/21 at 17:16; Status DC Iodixanol (Visipaque 320) 100 ml 1X ONCE IART Last administered on 08/23/21at 17:15; Start 08/23/21 at 17:15; Stop 08/23/21 at 17:16; Status DC Heparin Sodium (Porcine) (Heparin Sodium) 5,000 unit 1X ONCE INT CAT Last ad ministered on 08/23/21at 16:52; Start 08/23/21 at 17:15; Stop 08/23/21 at 17:16; Status DC Tirofiban/Sodium Chloride 250 ml @ As Directed STK-MED ONCE IV ; Start 08/23/21 at 17:18; Stop 08/23/21 at 17:18; Status DC Tirofiban/Sodium Chloride 250 ml @ 16.884 mls/ hr CONT PRN IV PER PROTOCOL Last administered on 08/23/21at 17:16; Start 08/23/21 at 17:45; Stop 08/24/21 at 11:44; Status DC Heparin Sodium (Porcine) (Heparin Sodium) 5,000 unit 1X ONCE IV Last administered on 08/23/21at 17:09; Start 08/23/21 at 18:30; Stop 08/23/21 at 18:31; Status DC Levetiracetam 100 ml @ 400 mls/hr Q12HR IV Last administered on 08/26/21at 11:29; Start 08/23/21 at 21:00; Stop 08/26/21 at 21:06; Status DC Heparin Sodium/ Dextrose 250 ml @ 11.256 mls/ hr CONT PRN IV PER PROTOCOL Last administered on 08/27/21at 05:30; Start 08/23/21 at 18:45 Heparin Sodium (Porcine) (Heparin Sodium) 2,350 unit PRN Q6HRS PRN IV FOR UFH LEVEL LESS THAN 0.2 Last administered on 08/27/21at 01:28; Start 08/23/21 at 18:45 Clopidogrel Bisulfate (Plavix) 600 mg 1X ONCE PO Last administered on 08/23/21at 22:06; Start 08/23/21 at 22:30; Stop 08/23/21 at 22:31; Status DC Potassium Chloride/Water 100 ml @ 100 mls/hr Q1H IV Last administered on 08/24/21at 02:00; Start 08/23/21 at 22:00; Stop 08/24/21 at 01:59; Status DC Daptomycin 520 mg/ Sodium Chloride 50 ml @ 100 mls/hr Q24H IV Last administered on 08/26/21at 12:57; Start 08/24/21 at 11:00; Stop 08/27/21 at 08:17; Status DC Linezolid (Zyvox) 600 mg BID PO Last administered on 08/27/21at 08:33; Start 08/24/21 at 10:00 Amiodarone HCl (Cordarone) 200 mg DAILY PO Last administered on 08/27/21at 08:34; Start 08/24/21 at 12:00 Furosemide (Lasix) 40 mg DAILY IVP Last administered on 08/27/21at 08:34; Start 08/25/21 at 09:00 Atorvastatin Calcium (Lipitor) 20 mg QHS PO Last administered on 08/26/21at 22:04; Start 08/24/21 at 21:00 Clopidogrel Bisulfate (Plavix) 75 mg 1X ONCE PO ; Start 08/24/21 at 11:30; Stop 08/24/21 at 11:31; Status UNV Clopidogrel Bisulfate (Plavix) 75 mg DAILYWBKFT PO Last administered on 08/27/21at 08:33; Start 08/24/21 at 12:00 Epinephrine HCl (EPINEPHrine SYRINGE) 1 mg STK-MED ONCE .ROUTE ; Start 08/23/21 at 17:00; Stop 08/24/21 at 12:21; Status DC Sodium Bicarbonate (Sodium Bicarb Adult 8.4% Syr) 50 meq STK-MED ONCE .ROUTE ; Start 08/23/21 at 17:00; Stop 08/24/21 at 12:21; Status DC Potassium Chloride/Water 100 ml @ 100 mls/hr Q1H IV Last administered on 08/25/21at 13:32; Start 08/25/21 at 10:00; Stop 08/25/21 at 12:59; Status DC Potassium Chloride/Water 100 ml @ 100 mls/hr Q1H IV Last administered on 08/26/21at 10:05; Start 08/26/21 at 09:00; Stop 08/26/21 at 11:59; Status DC Potassium Bicarbonate (Potassium Effervescent Tablet) 60 meq 1X ONCE PO Last administered on 08/26/21at 13:51; Start 08/26/21 at 10:30; Stop 08/26/21 at 1 0:31; Status DC Levetiracetam 500 mg/Dextrose 105 ml @ 100 mls/hr Q12HR IV Last administered on 08/27/21at 08:35; Start 08/26/21 at 21:30 Potassium Bicarbonate (Potassium Effervescent Tablet) 20 meq TID PO Last administered on 08/27/21at 10:40; Start 08/27/21 at 09:30 Vitals/I & O Vital Sign - Last 24 Hours 08/26/21 08/26/21 08/26/21 08/26/21 13:00 13:44 14:00 15:00 Pulse 60 64 70 Resp 30 30 30 B/P (MAP) 90/58 95/61 89/58 Pulse Ox 98 92 97 97 O2 Delivery Ventilator Ventilator Ventilator Ventilator 08/26/21 08/26/21 08/26/21 08/26/21 15:50 16:00 16:43 17:00 Temp 98.8 98.8 Pulse 61 68 Resp 30 30 B/P (MAP) 103/68 145/93 Pulse Ox 97 96 96 100 O2 Delivery Ventilator Ventilator Ventilator Ventilator 08/26/21 08/26/21 08/26/21 08/26/21 17:15 17:29 18:00 19:00 Pulse 68 62 Resp 30 30 B/P (MAP) 151/90 103/67 Pulse Ox 100 100 100 100 O2 Delivery Ventilator Ventilator Ventilator Ventilator 08/26/21 08/26/21 08/26/21 08/26/21 20:00 20:00 20:18 21:00 Temp 98.4 98.4 Pulse 74 62 Resp 30 30 B/P (MAP) 147/82 105/64 Pulse Ox 100 100 100 O2 Delivery Ventilator Mechanical Ventilator Ventilator Ventilator 08/26/21 08/26/21 08/27/21 08/27/21 22:00 23:00 00:00 00:16 Temp 98.9 98.9 Pulse 62 60 60 Resp 30 30 30 B/P (MAP) 107/67 101/64 106/65 Pulse Ox 100 100 100 100 O2 Delivery Ventilator Ventilator Ventilator Ventilator 08/27/21 08/27/21 08/27/21 08/27/21 01:00 02:00 03:00 04:00 Temp 99.1 99.1 Pulse 60 60 72 68 Resp 30 30 30 30 B/P (MAP) 106/65 116/74 121/75 99/61 Pulse Ox 100 100 100 100 O2 Delivery Ventilator Ventilator Ventilator Ventilator 08/27/21 08/27/21 08/27/2122 04:15 05:00 06:00 07:00 Pulse 59 59 70 Resp 30 30 30 B/P (MAP) 111/69 118/76 130/81 Pulse Ox 100 100 100 93 O2 Delivery Ventilator Ventilator Ventilator Ventilator 08/27/21 08/27/21 08/27/21 08/27/21 08:00 08:00 08:06 08:34 Temp 98.1 98.1 Pulse 66 57 Resp 32 B/P (MAP) 128/76 128/76 Pulse Ox 100 100 O2 Delivery Ventilator Mechanical Ventilator Ventilator 08/27/21 08/27/21 08/27/21 08/27/21 08:42 09:00 09:30 10:00 Pulse 62 59 Resp 30 30 30 30 B/P (MAP) 121/78 116/75 Pulse Ox 100 100 100 100 O2 Delivery Ventilator Ventilator Ventilator Ventilator 08/27/21 08/27/21 11:00 11:30 Pulse 60 Resp 30 B/P (MAP) 123/77 Pulse Ox 100 100 O2 Delivery Ventilator Ventilator Intake and Output 08/26/21 08/26/21 08/27/21 15:00 23:00 07:00 Intake Total 940 ml 1706 ml 456 ml Output Total 1300 ml 625 ml 565 ml Balance -360 ml 1081 ml -109 ml Justicifation of Admission Dx: Justifications for Admission: Justification of Admission Dx: N/A KEKE ARREAGA MD Aug 27, 2021 12:43
[2021-08-27] MEDS: SPIRONOLACTONE 25 MG TABLET PO SCH (14:36)
[2021-08-27] MEDS: LOSARTAN POTASSIUM 25 MG TABLET. PO SCH (14:37)
--- NOTE | 2021-08-27 17:11 | PN ---
DATE: 08/27/2021 SUBJECTIVE: The patient is resting, slightly propped up in bed, continues to be sedated, intubated and mechanically ventilated. His intra-aortic balloon pump was removed. He is off pressors. His blood culture has grown Staphylococcus epidermidis in 4 out of 4 bottles. PHYSICAL EXAMINATION: GENERAL: When I saw him this morning, he looked somewhat pale, but not jaundiced or cyanosed. No lymphadenopathy, no thyromegaly, no jugular venous distention. Mild bilateral lower limb edema. VITAL SIGNS: His heart rate was 67, blood pressure was 128/76, temperature 98.1, respiratory rate was 30 and oxygen saturation was 100% on FiO2 of 65%. HEAD, EYES, EARS, NOSE, AND THROAT: Normocephalic, atraumatic. Has orotracheal and orogastric tube. NECK: Supple. HEART: Showed normal first and second heart sounds. No gallop or murmur. CHEST: Clear to auscultation. No crepitation or rhonchi. ABDOMEN: Distended, soft, nontender. NEUROLOGIC: He is sedated; however, he is moving all extremities without difficulty. His intake was 3750, output was 1950. LABORATORY DATA: His lab workup as of this morning showed white cell count of 8200, hemoglobin 10, hematocrit 30, MCV 89 and platelet count of 330,000. His chemistry showed a serum sodium 146, potassium 3.4, chloride 109, bicarbonate 31, anion gap of 6, BUN 35, creatinine 1.2, estimated GFR was 61 mL per minute, his glucose 171, calcium was 7.1, magnesium was 2.1. Total bilirubin, AST, ALT, alkaline phosphatase were normal. CK was down to 107. Total protein 5.4, albumin was 1.5. ASSESSMENT: 1. Status post code blue cardiac arrest, likely from hypoxia associated with COVID and acute myocardial infarction. Apparently, the patient went into ventricular tachycardia and was shocked and he also went into ventricular fibrillation, treated with one round of epinephrine with return of spontaneous circulation. 2. Acute on chronic hypoxic respiratory failure, acute respiratory distress syndrome together with chronic obstructive pulmonary disease exacerbation. 3. Acute exacerbation of chronic obstructive pulmonary disease, COVID-19 pneumonia. 4. Atrial fibrillation with rapid ventricular response. 5. Inferior ST segment elevation myocardial infarction. 6. Shock, multifactorial including cardiogenic as well as septic. 7. The patient underwent emergent left heart catheterization and was found to have occluded right coronary artery. No intervention was attempted. Apparently, multiple attempts were made to traverse the total thrombotic occlusion without success. Therefore, the patient was treated medically. PLAN: To continue with IV antibiotic as recommended by the Infectious Disease specialist. Continue with heparin drip. His amiodarone drip was discontinued given he had become bradycardic. For his seizure disorder, continue with Keppra. Continue with nutritional support. Continue with mechanical ventilation wean as tolerated. SOHAIL DR: Vannessa TID: [id number]
[2021-08-27] MEDS: ATORVASTATIN CALCIUM 40 MG TABLET. PO SCH (22:21)
[2021-08-28] VITALS (24 sets, daily range): BP systolic 91–163; BP diastolic 55–99
[2021-08-28] MEDS: HEPARIN 25,000UTS/250ML PREMIX 250 ML IV PRN ×2 (01:02→18:24)
[2021-08-28] MEDS: VECURONIUM BOLUS 10 MG VIAL. IV PRN (02:57)
[2021-08-28] MEDS: IV DEXTROSE 5%-LACT RINGERS 1,000 ML IV SCH ×2 (04:45→18:23)
[2021-08-28] MEDS: PIPERACILLIN/TAZOBACTAM 4.5 GM in IV DEXTROSE 5% 100ML 100 ML IV SCH ×4 (06:02→23:58)
[2021-08-28] MEDS: methylPREDNISolone SOD SUCC PF 125 MG/2 ML VIAL. IV SCH ×3 (06:05→21:57)
[2021-08-28] MEDS: MIDAZOLAM 100mg/100ml NS BAG 100 ML IV PRN ×3 (06:33→15:20)
[2021-08-28 06:39] LABS: HEMATOCRIT 33.9 % (39.0-53.0); HEMOGLOBIN 11.2 g/dL (13.0-17.5); RED BLOOD COUNT 3.84 x10^6/uL (4.30-5.70); WHITE BLOOD COUNT 13.8 x10^3/uL (4.0-11.0)
--- NOTE | 2021-08-28 06:47 | RAD ---
XR CHEST 1V INDICATION: RF 109 . COMPARISON STUDY: 08/27/2021. FINDINGS: Life Support Devices: Stable endotracheal tube, enteric tube, right PICC. Lungs: Normal lung volume. Stable diffuse bilateral opacities. Pleura: Stable pleural spaces. Heart and Mediastinum: Stable cardiomediastinal silhouette and great vessels. Bones and Soft Tissues: Stable regional skeleton and soft tissues. IMPRESSION: 1. Stable life support devices. 2. Stable diffuse bilateral opacities. Electronically signed by: Yifan Samson MD (08/28/2021 6:45 AM) [facility]
[2021-08-28] MEDS: SPIRONOLACTONE 25 MG TABLET PO SCH (07:46)
[2021-08-28] MEDS: FAMOTIDINE 20 MG/2 ML VIAL IVP SCH ×2 (07:46→21:58)
[2021-08-28] MEDS: CLOPIDOGREL BISULFATE 75 MG TABLET PO SCH (07:47)
[2021-08-28] MEDS: ASPIRIN CHEWABLE 81 MG TABLET. PO SCH (07:47)
[2021-08-28] MEDS: POTASSIUM BICARB 20 MEQ EFFERVESCENT TABLET. PO SCH ×3 (07:47→21:57)
[2021-08-28] MEDS: LINEZOLID 600 MG TABLET PO SCH ×2 (07:47→21:57)
[2021-08-28] MEDS: AMIODARONE HCL 200 MG TABLET. PO SCH (07:47)
[2021-08-28] MEDS: FUROSEMIDE 40 MG/4 ML VIAL. IVP SCH (07:47)
[2021-08-28] MEDS: LOSARTAN POTASSIUM 25 MG TABLET. PO SCH (07:48)
[2021-08-28] MEDS: PROPOFOL 100 ML IV PRN ×3 (07:50→23:59)
--- NOTE | 2021-08-28 08:11 | PDOC ---
Infectious Disease Note Subjective Subjective Patient intubated/sedated Does open eyes to verbal stimuli Discussed with ROLAND CERVANTES no n/v/d/ Vital Sign Vital Signs Vital Signs Date Time Temp Pulse Resp B/P (MAP) Pulse Ox O2 Delivery O2 Flow Rate FiO2 08/28/21 07:48 75 158/86 08/28/21 06:00 30 100 Ventilator 08/28/21 04:00 98.2 98.2 Physical Exam PHYSICAL EXAM GENERAL: Intubated and sedated, opens eyes to verbal stimuli HEENT: No conjunctival petechia. ETT, OGT tube present. NECK: Supple. LUNGS: Coarse breath sounds in the bases, otherwise clear. HEART: S1, S2, irregular. I could not appreciate any murmurs. ABDOMEN: Soft, nontender, nondistended. Bowel sounds present. GENITOURINARY: Berumen in place. EXTREMITIES: Present no cyanosis. Right groin catheter removed, right upper extremity PICC line placed on 08/23/2021. DERMATOLOGIC: Warm, dry, no generalized rash. NEUROLOGIC: Unable to assess. Labs Lab Laboratory Tests Test 08/27/21 08:24 08/27/21 17:04 08/28/21 06:20 White Blood Count 8.2 x10^3/uL (4.0-11.0) 13.8 x10^3/uL (4.0-11.0) Red Blood Count 3.46 x10^6/uL (4.30-5.70) 3.84 x10^6/uL (4.30-5.70) Hemoglobin 9.9 g/dL (13.0-17.5) 11.2 g/dL (13.0-17.5) Hematocrit 30.8 % (39.0-53.0) 33.9 % (39.0-53.0) Mean Corpuscular Volume 89 fL (79-100) 88 fL (79-100) Mean Corpuscular Hemoglobin 29 pg (25-35) 29 pg (25-35) Mean Corpuscular Hemoglobin Concent 32 g/dL (31-37) 33 g/dL (31-37) Red Cell Distribution Width 14.5 % (11.5-14.5) 14.0 % (11.5-14.5) Platelet Count 330 x10^3/uL (140-400) 405 x10^3/uL (140-400) Heparin Anti-Xa Act, Unfractionated 0.92 IU/mL (0.30-0.70) > 1.10 IU/mL (0.30-0.70) Sodium Level 147 mmol/L (136-145) Potassium Level 3.9 mmol/L (3.5-5.1) Chloride Level 107 mmol/L (98-107) Carbon Dioxide Level 33 mmol/L (21-32) Anion Gap 7 (6-14) Blood Urea Nitrogen 33 mg/dL (8-26) Creatinine 1.1 mg/dL (0.7-1.3) Estimated GFR (Cockcroft-Gault) 67.6 BUN/Creatinine Ratio 30 (6-20) Glucose Level 165 mg/dL (70-99) Calcium Level 8.1 mg/dL (8.5-10.1) Total Bilirubin 0.5 mg/dL (0.2-1.0) Aspartate Amino Transf (AST/SGOT) 50 U/L (15-37) Alanine Aminotransferase (ALT/SGPT) 59 U/L (16-63) Alkaline Phosphatase 112 U/L (46-116) Total Protein 5.4 g/dL (6.4-8.2) Albumin 1.9 g/dL (3.4-5.0) Albumin/Globulin Ratio 0.5 (1.0-1.7) Micro Microbiology 08/24/21 Blood Culture - Preliminary, Resulted NO GROWTH AFTER 2 DAYS 08/23/21 Respiratory Culture Gram Stain - Final, Complete 08/23/21 Respiratory Culture - Final, Complete Objective Assessment Fever multifactorial s/p code ,possible aspiration pattern improved 1. Gram-positive bacteremia,MRSE 08/22/2021.Central line was pulled out 2. Acute hypoxic respiratory failure. 3. COVID-19 pneumonia. 4. Chronic obstructive pulmonary disease with possible underlying pulmonary fibrosis, aspiration pneumonia. 5. Status post code atrial fibrillation with rapid ventricular response, ventricular fibrillation, status post defibrillation, epinephrine, bicarbonate drip, status post cardiac catheterization. IABP placement. 6. Severe protein-calorie malnutrition. 7. Abnormal liver function tests, likely shock liver. 8. Anemia. 9. Encephalopathy likely anoxic 10.Electrolyte abn 11.Leucocytosis improving Plan Plan of Care cont Zyvox,Zosyn. CPK 376 ,repeat 107 monitor closely f/u Repeat blood cultures neg so far Follow up labs and cultures. Continue supportive care. Central lihe had been pulled out earlier during this hosp per staff PICC line was placed on 08/23/2021. If repeat blood cultures are positive, the patient will need PICC line removal. Remvoe Groin line if able Critically ill. Prognosis guarded. Discussed with [id number] at bedside Discussed with RN. BERNARD LOWERY MD Aug 28, 2021 08:11
[2021-08-28 08:29] LABS: BASE EXCESS ABG 8 mmol/L (-3-3); HCO3 ABG 34 mmol/L (21-28); PCO2 ABG 54 mmHg (35-46); PO2 ABG 78 mmHg (65-108); SAT O2 ABG 95 % (92-99)
[2021-08-28 08:37] LABS: FIO2 ABG 65
[2021-08-28 08:43] LABS: CALCIUM 7.9 mg/dL (8.5-10.1); CREATININE 0.9 mg/dL (0.7-1.3); GFR 85.2; POTASSIUM 4.1 mmol/L (3.5-5.1)
[2021-08-28] MEDS: levETIRAcetam 500 MG in IV DEXTROSE 5% 100ML 100 ML IV SCH (09:00)
--- NOTE | 2021-08-28 10:02 | PN ---
DATE: 08/28/2021 SUBJECTIVE: The patient has continued to be sedated. He is on propofol, Versed and fentanyl. He is maintaining his oxygen saturation at 100% on FiO2 of 60%. The nursing staff stated that he was restless this morning and propofol was added. PHYSICAL EXAMINATION: GENERAL: When I saw him, he was sleeping, propped up comfortably, in no apparent distress. He was pale, but not jaundiced or cyanosed. No lymphadenopathy, no thyromegaly, no jugular venous distention. No lower limb edema. VITAL SIGNS: His heart rate was 75, blood pressure was 158/85, temperature was 98.2, respiratory rate was 30 and oxygen saturation was 100%. HEAD, EYES, EARS, NOSE AND THROAT: Normocephalic, atraumatic. He has orotracheal and orogastric tubes. NECK: Supple. HEART: Shows normal first and second heart sounds. No gallop or murmur. CHEST: Shows central trachea, equal bilateral chest expansion, air entry, vesicular breath sounds. No crepitation or rhonchi. ABDOMEN: Distended, soft, nontender. NEUROLOGIC: He was heavily sedated. His intake was 3100, output was 2500. LABORATORY DATA: As of this morning, his serum sodium was 143, potassium 4.1, chloride 102, bicarbonate 35, anion gap of 6, BUN 31, creatinine 0.9. Estimated GFR was 85 mL per minute. His glucose 172, calcium was 7.9. Total bilirubin, AST, ALT, alkaline phosphatase were normal. Total protein 5.4, albumin was 1.9. His white cell count was 13,800; hemoglobin 11; hematocrit 33; MCV 88 and platelet count 405,000. ASSESSMENT: 1. Status post code blue cardiac arrest, likely from hypoxia associated with COVID and acute myocardial infarction. Apparently, the patient went into ventricular tachycardia, it was shocked and he also went into ventricular fibrillation, treated with one round of epinephrine with return of spontaneous circulation. 2. Acute on chronic hypoxic respiratory failure, acute respiratory distress syndrome. 3. Acute exacerbation of chronic obstructive pulmonary disease. 4. COVID-19 pneumonia. 5. Atrial fibrillation with rapid ventricular response. 6. Inferior ST segment elevation myocardial infarction. 7. Shock, multifactorial, including both cardiogenic as well as septic. 8. The patient underwent emergent left heart catheterization and was found to have totally occluded right coronary artery. He apparently is scheduled for another cardiac catheterization on . PLAN: To continue with IV antibiotic as he grew Staphylococcus epidermidis in his blood culture. He is on piperacillin/tazobactam. ALEXANDER DR: Vannessa TID: [id number]
--- NOTE | 2021-08-28 10:20 | PDOC ---
TETO DIAZ [employer] 08/28/21 1020: CARDIO Progress Notes Date and Time Date of Service 08/28/21 Time of Evaluation 1010 Subjective Subjective: Other (intubated ) Vitals Vitals Vital Signs Date Time Temp Pulse Resp B/P (MAP) Pulse Ox O2 Delivery O2 Flow Rate FiO2 08/28/21 10:10 100 Ventilator 08/28/21 09:00 97.8 62 30 105/69 97.8 Weight Weight [ ] Input and Output Intake and Output Intake and Output 08/28/21 07:00 Intake Total 3994.18 ml Output Total 3800 ml Balance 194.18 ml Intake Oral 0 ml IV Total 3525.18 ml Tube Feeding 239 ml Other 230 ml Output Urine Total 3800 ml # Bowel Movements 1 Laboratory Labs Laboratory Tests Test 08/27/21 17:04 08/28/21 06:20 08/28/21 08:30 08/28/21 08:50 Heparin Anti-Xa Act, Unfractionated > 1.10 IU/mL (0.30-0.70) 0.37 IU/mL (0.30-0.70) White Blood Count 13.8 x10^3/uL (4.0-11.0) Red Blood Count 3.84 x10^6/uL (4.30-5.70) Hemoglobin 11.2 g/dL (13.0-17.5) Hematocrit 33.9 % (39.0-53.0) Mean Corpuscular Volume 88 fL (79-100) Mean Corpuscular Hemoglobin 29 pg (25-35) Mean Corpuscular Hemoglobin Concent 33 g/dL (31-37) Red Cell Distribution Width 14.0 % (11.5-14.5) Platelet Count 405 x10^3/uL (140-400) Sodium Level 143 mmol/L (136-145) Potassium Level 4.1 mmol/L (3.5-5.1) Chloride Level 102 mmol/L (98-107) Carbon Dioxide Level 35 mmol/L (21-32) Anion Gap 6 (6-14) Blood Urea Nitrogen 31 mg/dL (8-26) Creatinine 0.9 mg/dL (0.7-1.3) Estimated GFR (Cockcroft-Gault) 85.2 Glucose Level 172 mg/dL (70-99) Calcium Level 7.9 mg/dL (8.5-10.1) O2 Saturation 95 % (92-99) Arterial Blood pH 7.42 (7.35-7.45) Arterial Blood pCO2 at Patient Temp 54 mmHg (35-46) Arterial Blood pO2 at Patient Temp 78 mmHg (65-108) Arterial Blood HCO3 34 mmol/L (21-28) Arterial Blood Base Excess 8 mmol/L (-3-3) FiO2 65 Microbiology Micro Microbiology 08/24/21 Blood Culture - Preliminary, Resulted NO GROWTH AFTER 3 DAYS 08/23/21 Respiratory Culture Gram Stain - Final, Complete 08/23/21 Respiratory Culture - Final, Complete Physical Exam HEENT: Other (supple ) Chest: Symmetric LUNGS: Other (MV) Heart: RRR (SR/SB) Abdomen: Other (soft ) Extremities: No Edema, Other (no edema. Eschar to left foot, second toe) Neurology: other Assessment Assessment 1. S/P cardiac arrest; multifactorial. Noted with VT shock x1. approximately <3 min to ROSC 2. Acute on chronic respiratory failure with COVID PNA, ARDS 3. Inferior STEMI with embolic disease. 4. CAD: LHC revealed thrombotic distal right posterior descending artery and right posterior lateral artery occlusion. There was moderate 50% proximal and 90% mid stenosis appeared to have significant thrombotic burden with ectasia and dilation of the coronary artery 5. Cardiogenic shock; improved. IABP removed 6. Acute on chronic systolic CHF, ICM: EF at 35-40% 7. AFIB RVR: presently SR/SB 8. Hypertension; controlled 9. Hyperlipidemi; statin 10. Bacteremia: Gram-positive bacteremia. repeat blood cultures negative so far 11. Shock liver; improved 12. Encephalopathy with possible seizure; on 13. Black distal phalanx to left 2nd toe: possibly r/t to covid-19 Recommendations Secondary prevention Continue heparin gtt Stain, Plavix therapy Amiodarone for rhythm maintenance HF optimization; continue Lasix, spironolactone, losartan No BB with bradycardia Repeat cath in near future; tentatively on Ongoing support, pulmonary optimization Justicifation of Admission Dx: Justifications for Admission: Justification of Admission Dx: N/A TEDDY ANGLIN MD 08/28/21 1930: CARDIO Progress Notes Plan Plan The patient was seen and interviewed as well as examined at the bedside. The chart was reviewed. The case was discussed. Agree with the plan of care. Plan for a LHC on for re-evaluation and consideration of PCI. TETO DIAZ APRN Aug 28, 2021 10:20 TEDDY ANGLIN MD Aug 28, 2021 19:30
--- NOTE | 2021-08-28 10:42 | PDOC ---
PULMONARY PROGRESS NOTES DATE: 08/28/21 TIME: 10:42 Subjective Patient currently off of pressors, Intra-aortic balloon pump discontinued Vitals Vital Signs Date Time Temp Pulse Resp B/P (MAP) Pulse Ox O2 Delivery O2 Flow Rate FiO2 08/28/21 10:10 100 Ventilator 08/28/21 10:00 62 30 109/73 08/28/21 09:00 97.8 97.8 Comments Patient remains intubated and sedated, unable to report review of systems at this time. Lungs: Crackles Cardiovascular: S1, S2 Abdomen: Soft, Non-tender Extremities: No Edema Skin: Warm Labs Laboratory Tests Test 08/27/21 00:15 08/27/21 08:05 08/27/21 08:24 08/27/21 17:04 Heparin Anti-Xa Act, Unfractionated 0.14 IU/mL (0.30-0.70) 0.92 IU/mL (0.30-0.70) > 1.10 IU/mL (0.30-0.70) O2 Saturation 96 % (92-99) Arterial Blood pH 7.39 (7.35-7.45) Arterial Blood pCO2 at Patient Temp 53 mmHg (35-46) Arterial Blood pO2 at Patient Temp 86 mmHg (65-108) Arterial Blood HCO3 31 mmol/L (21-28) Arterial Blood Base Excess 5 mmol/L (-3-3) FiO2 70 White Blood Count 8.2 x10^3/uL (4.0-11.0) Red Blood Count 3.46 x10^6/uL (4.30-5.70) Hemoglobin 9.9 g/dL (13.0-17.5) Hematocrit 30.8 % (39.0-53.0) Mean Corpuscular Volume 89 fL (79-100) Mean Corpuscular Hemoglobin 29 pg (25-35) Mean Corpuscular Hemoglobin Concent 32 g/dL (31-37) Red Cell Distribution Width 14.5 % (11.5-14.5) Platelet Count 330 x10^3/uL (140-400) Sodium Level 147 mmol/L (136-145) Potassium Level 3.9 mmol/L (3.5-5.1) Chloride Level 107 mmol/L (98-107) Carbon Dioxide Level 33 mmol/L (21-32) Anion Gap 7 (6-14) Blood Urea Nitrogen 33 mg/dL (8-26) Creatinine 1.1 mg/dL (0.7-1.3) Estimated GFR (Cockcroft-Gault) 67.6 BUN/Creatinine Ratio 30 (6-20) Glucose Level 165 mg/dL (70-99) Calcium Level 8.1 mg/dL (8.5-10.1) Total Bilirubin 0.5 mg/dL (0.2-1.0) Aspartate Amino Transf (AST/SGOT) 50 U/L (15-37) Alanine Aminotransferase (ALT/SGPT) 59 U/L (16-63) Alkaline Phosphatase 112 U/L (46-116) Total Protein 5.4 g/dL (6.4-8.2) Albumin 1.9 g/dL (3.4-5.0) Albumin/Globulin Ratio 0.5 (1.0-1.7) Test 08/28/21 06:20 08/28/21 08:30 08/28/21 08:50 White Blood Count 13.8 x10^3/uL (4.0-11.0) Red Blood Count 3.84 x10^6/uL (4.30-5.70) Hemoglobin 11.2 g/dL (13.0-17.5) Hematocrit 33.9 % (39.0-53.0) Mean Corpuscular Volume 88 fL (79-100) Mean Corpuscular Hemoglobin 29 pg (25-35) Mean Corpuscular Hemoglobin Concent 33 g/dL (31-37) Red Cell Distribution Width 14.0 % (11.5-14.5) Platelet Count 405 x10^3/uL (140-400) Sodium Level 143 mmol/L (136-145) Potassium Level 4.1 mmol/L (3.5-5.1) Chloride Level 102 mmol/L (98-107) Carbon Dioxide Level 35 mmol/L (21-32) Anion Gap 6 (6-14) Blood Urea Nitrogen 31 mg/dL (8-26) Creatinine 0.9 mg/dL (0.7-1.3) Estimated GFR (Cockcroft-Gault) 85.2 Glucose Level 172 mg/dL (70-99) Calcium Level 7.9 mg/dL (8.5-10.1) O2 Saturation 95 % (92-99) Arterial Blood pH 7.42 (7.35-7.45) Arterial Blood pCO2 at Patient Temp 54 mmHg (35-46) Arterial Blood pO2 at Patient Temp 78 mmHg (65-108) Arterial Blood HCO3 34 mmol/L (21-28) Arterial Blood Base Excess 8 mmol/L (-3-3) FiO2 65 Heparin Anti-Xa Act, Unfractionated 0.37 IU/mL (0.30-0.70) Laboratory Tests Test 08/27/21 17:04 08/28/21 06:20 08/28/21 08:30 08/28/21 08:50 Heparin Anti-Xa Act, Unfractionated > 1.10 IU/mL (0.30-0.70) 0.37 IU/mL (0.30-0.70) White Blood Count 13.8 x10^3/uL (4.0-11.0) Red Blood Count 3.84 x10^6/uL (4.30-5.70) Hemoglobin 11.2 g/dL (13.0-17.5) Hematocrit 33.9 % (39.0-53.0) Mean Corpuscular Volume 88 fL (79-100) Mean Corpuscular Hemoglobin 29 pg (25-35) Mean Corpuscular Hemoglobin Concent 33 g/dL (31-37) Red Cell Distribution Width 14.0 % (11.5-14.5) Platelet Count 405 x10^3/uL (140-400) Sodium Level 143 mmol/L (136-145) Potassium Level 4.1 mmol/L (3.5-5.1) Chloride Level 102 mmol/L (98-107) Carbon Dioxide Level 35 mmol/L (21-32) Anion Gap 6 (6-14) Blood Urea Nitrogen 31 mg/dL (8-26) Creatinine 0.9 mg/dL (0.7-1.3) Estimated GFR (Cockcroft-Gault) 85.2 Glucose Level 172 mg/dL (70-99) Calcium Level 7.9 mg/dL (8.5-10.1) O2 Saturation 95 % (92-99) Arterial Blood pH 7.42 (7.35-7.45) Arterial Blood pCO2 at Patient Temp 54 mmHg (35-46) Arterial Blood pO2 at Patient Temp 78 mmHg (65-108) Arterial Blood HCO3 34 mmol/L (21-28) Arterial Blood Base Excess 8 mmol/L (-3-3) FiO2 65 Impression . 1. Acute hypoxic respiratory failure secondary to COVID-19 pneumonia, acute respiratory distress syndrome and possible underlying fibrosis and emphysema., Extubated 08/20, reintubated 08/23 status post CODE BLUE 2. Abnormal CT chest 3. Hypernatremia 4. Suspected underlying severe chronic obstructive pulmonary disease. 5. COVID-19 viral pneumonia.--- Covid recovered 6. Abnormal chest x-ray with bilateral diffuse infiltrates related to COVID-19 viral pneumonia.--- Covid recovered 7. Patient reintubated 08/23, status post CODE BLUE 8. Abnormal x-ray from 08/15, possible ARDS, possible pulmonary edema, possible aspiration 9. ST elevation [place] status post intra-aortic balloon pump--08/23/2021 10. Emergent cardiac catheterization revealing 90% stenotic lesion 11. Echocardiogram revealing ejection fraction of 35 to 40% pulmonary artery pressure of 34 inferior septal wall hypokinesis 12. Bacteremia Staph epidermidis Plan . Updated 08/28 Patient to undergo cardiac catheterization per cardiology We will continue current assist control ventilation Continue assist-control ventilation, wean FiO2 down Discontinued intra-aortic balloon pump Diurese Antibiotics per ID Continue heparin drip Discussed with at the bedside, CCT 30 minutes REBECCA DUGGAN MD Aug 28, 2021 10:42
--- NOTE | 2021-08-28 14:57 | PDOC ---
PROGRESS NOTES Date of Service DATE: 08/28/21 TIME: 14:53 Assessment Patient status post myocardial infarction and cardiac arrest. He had Covid on July 29, 2021. He was on a balloon pump but this has been discontinued. Patient with observed possible seizure activity currently on levetiracetam without any further apparent seizure activity. No further report of any seizure activity. Patient is currently sedated with midazolam 10 mg/hour, fentanyl 200 mcg/h and propofol 45 mcg/kg/min. He is still able to wake up slightly and opens eyes briefly but does not follow commands. His movements are more agitated where he seems to rocking the bed from left to right. Protective mittens are still on his hands. Plan Prognosis is guarded given the series of events that have occurred. I will be able to perform a more valid exam as sedation can be lifted. I spoke with the nurse regarding the level of sedation. He will go back to the [facility] potentially on if he is stable to support this. I will continue to follow. Subjective Intubated, sedated and nonverbal. Objective Vital Signs Date Time Temp Pulse Resp B/P (MAP) Pulse Ox O2 Delivery O2 Flow Rate FiO2 08/28/21 13:00 97.6 60 30 119/77 100 Ventilator 97.6 Intake and Output 08/28/21 06:59 Intake Total 3994.18 ml Output Total 3800 ml Balance 194.18 ml Intake Oral 0 ml IV Total 3525.18 ml Tube Feeding 239 ml Other 230 ml Output Urine Total 3800 ml # Bowel Movements 1 PHYSICAL EXAM He was intubated, ventilated and sedated. He did not follow any commands or look up to command. Pupils were 3 mm. The eyes were disconjugate. The face appeared symmetric. Tone was not spastic in the arms. He did have some increased tone in the legs. There was edema of all 4 extremities. He did not appear to respond to nailbed pressure. He did not respond to loud clap or visual threat. Review of Relevant I have reviewed the following items shey (where applicable) has been applied. Labs Laboratory Tests Test 08/27/21 00:15 08/27/21 08:05 08/27/21 08:24 08/27/21 17:04 Heparin Anti-Xa Act, Unfractionated 0.14 IU/mL (0.30-0.70) 0.92 IU/mL (0.30-0.70) > 1.10 IU/mL (0.30-0.70) O2 Saturation 96 % (92-99) Arterial Blood pH 7.39 (7.35-7.45) Arterial Blood pCO2 at Patient Temp 53 mmHg (35-46) Arterial Blood pO2 at Patient Temp 86 mmHg (65-108) Arterial Blood HCO3 31 mmol/L (21-28) Arterial Blood Base Excess 5 mmol/L (-3-3) FiO2 70 White Blood Count 8.2 x10^3/uL (4.0-11.0) Red Blood Count 3.46 x10^6/uL (4.30-5.70) Hemoglobin 9.9 g/dL (13.0-17.5) Hematocrit 30.8 % (39.0-53.0) Mean Corpuscular Volume 89 fL (79-100) Mean Corpuscular Hemoglobin 29 pg (25-35) Mean Corpuscular Hemoglobin Concent 32 g/dL (31-37) Red Cell Distribution Width 14.5 % (11.5-14.5) Platelet Count 330 x10^3/uL (140-400) Sodium Level 147 mmol/L (136-145) Potassium Level 3.9 mmol/L (3.5-5.1) Chloride Level 107 mmol/L (98-107) Carbon Dioxide Level 33 mmol/L (21-32) Anion Gap 7 (6-14) Blood Urea Nitrogen 33 mg/dL (8-26) Creatinine 1.1 mg/dL (0.7-1.3) Estimated GFR (Cockcroft-Gault) 67.6 BUN/Creatinine Ratio 30 (6-20) Glucose Level 165 mg/dL (70-99) Calcium Level 8.1 mg/dL (8.5-10.1) Total Bilirubin 0.5 mg/dL (0.2-1.0) Aspartate Amino Transf (AST/SGOT) 50 U/L (15-37) Alanine Aminotransferase (ALT/SGPT) 59 U/L (16-63) Alkaline Phosphatase 112 U/L (46-116) Total Protein 5.4 g/dL (6.4-8.2) Albumin 1.9 g/dL (3.4-5.0) Albumin/Globulin Ratio 0.5 (1.0-1.7) Test 08/28/21 06:20 08/28/21 08:30 08/28/21 08:50 White Blood Count 13.8 x10^3/uL (4.0-11.0) Red Blood Count 3.84 x10^6/uL (4.30-5.70) Hemoglobin 11.2 g/dL (13.0-17.5) Hematocrit 33.9 % (39.0-53.0) Mean Corpuscular Volume 88 fL (79-100) Mean Corpuscular Hemoglobin 29 pg (25-35) Mean Corpuscular Hemoglobin Concent 33 g/dL (31-37) Red Cell Distribution Width 14.0 % (11.5-14.5) Platelet Count 405 x10^3/uL (140-400) Sodium Level 143 mmol/L (136-145) Potassium Level 4.1 mmol/L (3.5-5.1) Chloride Level 102 mmol/L (98-107) Carbon Dioxide Level 35 mmol/L (21-32) Anion Gap 6 (6-14) Blood Urea Nitrogen 31 mg/dL (8-26) Creatinine 0.9 mg/dL (0.7-1.3) Estimated GFR (Cockcroft-Gault) 85.2 Glucose Level 172 mg/dL (70-99) Calcium Level 7.9 mg/dL (8.5-10.1) O2 Saturation 95 % (92-99) Arterial Blood pH 7.42 (7.35-7.45) Arterial Blood pCO2 at Patient Temp 54 mmHg (35-46) Arterial Blood pO2 at Patient Temp 78 mmHg (65-108) Arterial Blood HCO3 34 mmol/L (21-28) Arterial Blood Base Excess 8 mmol/L (-3-3) FiO2 65 Heparin Anti-Xa Act, Unfractionated 0.37 IU/mL (0.30-0.70) Laboratory Tests Test 08/27/21 17:04 08/28/21 06:20 08/28/21 08:30 08/28/21 08:50 Heparin Anti-Xa Act, Unfractionated > 1.10 IU/mL (0.30-0.70) 0.37 IU/mL (0.30-0.70) White Blood Count 13.8 x10^3/uL (4.0-11.0) Red Blood Count 3.84 x10^6/uL (4.30-5.70) Hemoglobin 11.2 g/dL (13.0-17.5) Hematocrit 33.9 % (39.0-53.0) Mean Corpuscular Volume 88 fL (79-100) Mean Corpuscular Hemoglobin 29 pg (25-35) Mean Corpuscular Hemoglobin Concent 33 g/dL (31-37) Red Cell Distribution Width 14.0 % (11.5-14.5) Platelet Count 405 x10^3/uL (140-400) Sodium Level 143 mmol/L (136-145) Potassium Level 4.1 mmol/L (3.5-5.1) Chloride Level 102 mmol/L (98-107) Carbon Dioxide Level 35 mmol/L (21-32) Anion Gap 6 (6-14) Blood Urea Nitrogen 31 mg/dL (8-26) Creatinine 0.9 mg/dL (0.7-1.3) Estimated GFR (Cockcroft-Gault) 85.2 Glucose Level 172 mg/dL (70-99) Calcium Level 7.9 mg/dL (8.5-10.1) O2 Saturation 95 % (92-99) Arterial Blood pH 7.42 (7.35-7.45) Arterial Blood pCO2 at Patient Temp 54 mmHg (35-46) Arterial Blood pO2 at Patient Temp 78 mmHg (65-108) Arterial Blood HCO3 34 mmol/L (21-28) Arterial Blood Base Excess 8 mmol/L (-3-3) FiO2 65 Microbiology 08/24/21 Blood Culture - Preliminary, Resulted NO GROWTH AFTER 4 DAYS 08/23/21 Respiratory Culture Gram Stain - Final, Complete 08/23/21 Respiratory Culture - Final, Complete Medications Current Medications Dexamethasone Sodium Phosphate (Decadron) 6 mg DAILY IVP Last administered on 08/10/21at 08:29; Start 08/01/21 at 09:00; Stop 08/10/21 at 09:01; Status DC Heparin Sodium (Porcine) (Heparin Sodium) 5,000 unit Q8HRS SQ Last administered on 08/20/21at 05:41; Start 07/31/21 at 14:00; Stop 08/20/21 at 08:37; Status DC Famotidine (Pepcid Vial) 20 mg BID IVP Last administered on 08/28/21at 07:46; Start 07/31/21 at 14:00 Fentanyl Citrate 30 ml @ 2.5 mls/hr CONT PRN IV SEE PROTOCOL Last administered on 07/31/21at 12:49; Start 07/31/21 at 12:15; Stop 07/31/21 at 16:19; Status DC Midazolam HCl 100 ml @ 1 mls/hr CONT PRN IV SEE PROTOCOL Last administered on 08/28/21at 06:33; Start 07/31/21 at 12:15 Propofol 100 ml @ 3.45 mls/hr CONT PRN IV PER PROTOCOL Last administered on 08/28/21at 14:42; Start 07/31/21 at 12:15 Vecuronium [place] (Norcuron Bolus) 6 mg PRN 1X PRN IV VENT INDUCTION; Start 07/31/21 at 12:15; Stop 08/01/21 at 12:14; Status DC Glycerin/ Hypromellose/ Polyethylene (Artificial Tears) 1 drop PRN Q1HR PRN OU DRY EYE; Start 07/31/21 at 12:15 Dexmedetomidine HCl 400 mcg/ Sodium Chloride 100 ml @ 0 mls/hr CONT PRN IV PER PROTOCOL Last administered on 08/17/21at 12:55; Start 07/31/21 at 12:15 Midazolam HCl (Versed) 5 mg PRN 1X PRN IVP VENT INDUCTION; Start 07/31/21 at 12:15; Stop 08/01/21 at 12:14; Status DC Sodium Chloride 500 ml @ 500 mls/hr 1X PRN PRN IV SEE COMMENTS; Start 07/31/21 at 12:15 Atropine Sulfate (ATROPINE 0.5mg SYRINGE) 0.5 mg PRN Q5MIN PRN IV SEE COMMENTS; Start 07/31/21 at 12:15 Famotidine (Pepcid Vial) 20 mg BID IVP ; Start 07/31/21 at 21:00; Status UNV Piperacillin Sod/ Tazobactam Sod (Zosyn Per Pharmacy) 1 each PRN DAILY PRN MC SEE COMMENTS; Start 07/31/21 at 15:15; Stop 08/08/21 at 12:29; Status DC Piperacillin Sod/ Tazobactam Sod 3.375 gm/Sodium Chloride 50 ml @ 100 mls/hr Q6HRS IV Last administered on 08/07/21at 11:20; Start 07/31/21 at 18:00; Stop 08/07/21 at 17:59; Status DC Fentanyl Citrate 55 ml @ 1 mls/hr CONT PRN IV SEE PROTOCOL Last administered on 08/27/21at 23:58; Start 07/31/21 at 15:45 Insulin Human Lispro (HumaLOG) 0-7 UNITS Q6HRS SQ ; Start 08/02/21 at 06:00; Stop 08/07/21 at 08:09; Status DC Dextrose (Dextrose 50%-Water Syringe) 12.5 gm PRN Q15MIN PRN IV SEE COMMENTS; Start 08/01/21 at 23:00 Vecuronium [place] (Norcuron Bolus) 6 mg PRN Q6HRS PRN IV VENTILATOR COMPLIANCE Last administered on 08/28/21at 02:57; Start 08/06/21 at 13:45 Vecuronium [place] (Norcuron Bolus) 10 mg STK-MED ONCE IV ; Start 08/06/21 at 13:34; Stop 08/07/21 at 13:38; Status DC Sterile Water (WATER for RESP) 1,000 ml CONT PRN INH VIA VAPOTHERM DEVICE; Start 08/12/21 at 09:45; Status Cancel Dexamethasone Sodium Phosphate (Decadron) 6 mg DAILY IVP ; Start 08/17/21 at 09:00; Stop 08/16/21 at 13:31; Status DC Dexamethasone Sodium Phosphate (Decadron) 10 mg 1X ONCE IV ; Start 08/16/21 at 12:30; Stop 08/16/21 at 13:31; Status DC Acetaminophen (Tylenol) 650 mg PRN Q6HRS PRN PEG MILD PAIN / TEMP > 100.3'F Last administered on 08/20/21at 03:50; Start 08/17/21 at 00:15 Heparin Sodium (Porcine) (Heparin Sodium) 5,000 unit Q8HRS SQ Last administered on 08/23/21at 05:39; Start 08/21/21 at 14:00; Stop 08/23/21 at 18:33; Status DC Fentanyl Citrate (Fentanyl 2ml Vial) 25 mcg PRN Q5MIN PRN IVP MILD PAIN 1-3; Start 08/21/21 at 06:00; Stop 08/22/21 at 05:59; Status DC Fentanyl Citrate (Fentanyl 2ml Vial) 50 mcg PRN Q5MIN PRN IVP MODERATE PAIN 4- 6; Start 08/21/21 at 06:00; Stop 08/22/21 at 05:59; Status DC Morphine Sulfate (Morphine Sulfate) 1 mg PRN Q10MIN PRN IVP SEVERE PAIN 7-10; Start 08/21/21 at 06:00; Stop 08/22/21 at 05:59; Status DC Ringer's Solution 1,000 ml @ 30 mls/hr Q24H IV ; Start 08/21/21 at 06:00; Stop 08/21/21 at 17:59; Status DC Hydromorphone HCl (Dilaudid) 0.5 mg PRN Q10MIN PRN IVP SEVERE PAIN 7-10, 2nd CHOICE; Start 08/21/21 at 06:00; Stop 08/22/21 at 05:59; Status DC Prochlorperazine Edisylate (Compazine) 5 mg PACU PRN PRN IVP NAUSEA, MRX1; Start 08/21/21 at 06:00; Stop 08/22/21 at 05:59; Status DC Haloperidol Lactate (Haldol Inj) 5 mg PRN Q8HRS PRN IVP AGITATION; Start 08/22/21 at 10:45; Stop 08/22/21 at 10:45; Status DC Haloperidol Lactate (Haldol Inj) 5 mg Q8HRS IVP Last administered on 08/23/21at 05:38; Start 08/22/21 at 11:00; Stop 08/24/21 at 13:52; Status DC Acetaminophen (Tylenol Supp) 650 mg Q4H ONCE NC Last administered on 08/22/21at 11:45; Start 08/22/21 at 11:30; Stop 08/22/21 at 11:31; Status DC Vancomycin HCl (Vanco Per Pharmacy) 1 each PRN DAILY PRN MC SEE COMMENTS Last administered on 08/23/21at 12:21; Start 08/22/21 at 11:30; Stop 08/24/21 at 09:14; Status DC Piperacillin Sod/ Tazobactam Sod (Zosyn Per Pharmacy) 1 each PRN DAILY PRN MC SEE COMMENTS; Start 08/22/21 at 11:30 Piperacillin Sod/ Tazobactam Sod 4.5 gm/Dextrose 100 ml @ 200 mls/hr Q6HRS IV Last administered on 08/28/21at 12:37; Start 08/22/21 at 12:00 Vancomycin HCl 2 gm/Sodium Chloride 500 ml @ 250 mls/hr 1X ONCE IV Last administered on 08/22/21at 12:34; Start 08/22/21 at 13:00; Stop 08/22/21 at 14:59; Status DC Acetaminophen (Tylenol Supp) 650 mg PRN Q4HRS PRN NC MILD PAIN / TEMP > 100.3'F Last administered on 08/22/21at 23:32; Start 08/22/21 at 11:45 Dextrose/Lactated Ringer's 1,000 ml @ 80 mls/hr [id number] IV Last administered on 08/28/21at 04:45; Start 08/22/21 at 12:45 Vancomycin HCl 1 gm/Sodium Chloride 250 ml @ 250 mls/hr Q8H IV Last administered on 08/24/21at 04:00; Start 08/22/21 at 20:00; Stop 08/24/21 at 09:14; Status DC Vancomycin HCl (Vancomycin Trough Level) 1 each 1X ONCE MC ; Start 08/23/21 at 11:30; Stop 08/24/21 at 09:14; Status DC Etomidate (Amidate) 20 mg STK-MED ONCE IV ; Start 08/23/21 at 11:25; Stop 08/23/21 at 11:25; Status DC Succinylcholine Chloride (Anectine) 200 mg STK-MED ONCE .ROUTE ; Start 08/23/21 at 11:25; Stop 08/23/21 at 11:26; Status DC Etomidate (Amidate) 20 mg 1X ONCE IV Last administered on 08/23/21at 12:21; Start 08/23/21 at 12:15; Stop 08/23/21 at 12:16; Status DC Succinylcholine Chloride (Anectine) 100 mg 1X ONCE IV Last administered on 08/23/21at 12:21; Start 08/23/21 at 12:15; Stop 08/23/21 at 12:16; Status DC Methylprednisolone Sodium Succinate (SOLU-Medrol 125MG VIAL) 125 mg Q8HRS IV Last administered on 08/28/21at 14:41; Start 08/23/21 at 14:00 Furosemide (Lasix) 40 mg 1X ONCE IVP Last administered on 08/23/21at 13:19; Start 08/23/21 at 12:45; Stop 08/23/21 at 12:56; Status DC Furosemide (Lasix) 40 mg DAILY IVP Last administered on 08/24/21at 07:24; Start 08/24/21 at 09:00; Stop 08/24/21 at 11:24; Status DC Digoxin (Lanoxin) 500 mcg 1X ONCE IV Last administered on 08/23/21at 15:16; Start 08/23/21 at 15:30; Stop 08/23/21 at 15:31; Status DC Amiodarone HCl 150 mg/Dextrose 103 ml @ 600 mls/hr 1X ONCE IV ; Start 08/23/21 at 16:00; Stop 08/23/21 at 16:10; Status DC Amiodarone HCl 450 mg/Dextrose 259 ml @ 33 mls/hr CONT PRN IV SEE I/O RECORD Last administered on 08/24/21at 01:22; Start 08/23/21 at 16:00; Stop 08/24/21 at 15:59; Status DC Iodixanol (Visipaque 320) 100 ml STK-MED ONCE .ROUTE ; Start 08/23/21 at 16:00; Stop 08/23/21 at 16:00; Status DC Lidocaine HCl (Lidocaine 1% 20ml Vial) 20 ml STK-MED ONCE .ROUTE ; Start 08/23/21 at 16:00; Stop 08/23/21 at 16:00; Status DC Heparin Sodium/ Sodium Chloride 1,500 ml @ As Directed STK-MED ONCE .ROUTE ; Start 08/23/21 at 16:00; Stop 08/23/21 at 16:00; Status DC Amiodarone HCl (Cordarone) 150 mg STK-MED ONCE .ROUTE ; Start 08/23/21 at 16:01; Stop 08/23/21 at 16:01; Status DC Amiodarone HCl (Cordarone) 150 mg 1X ONCE IVP Last administered on 08/23/21at 16:23; Start 08/23/21 at 16:15; Stop 08/23/21 at 16:16; Status DC Aspirin (Aspirin Chewable) 324 mg 1X ONCE PO Last administered on 08/23/21at 16:07; Start 08/23/21 at 16:15; Stop 08/23/21 at 16:16; Status DC Aspirin (Aspirin Chewable) 81 mg STK-MED ONCE .ROUTE ; Start 08/23/21 at 16:06; Stop 08/23/21 at 16:06; Status DC Heparin Sodium (Porcine) (Heparin Sodium) 10,000 unit STK-MED ONCE .ROUTE ; Start 08/23/21 at 16:23; Stop 08/23/21 at 16:24; Status DC Verapamil HCl (Verapamil) 5 mg STK-MED ONCE .ROUTE ; Start 08/23/21 at 16:23; Stop 08/23/21 at 16:24; Status DC Nitroglycerin (Nitroglycerin) 200 mcg STK-MED ONCE .ROUTE ; Start 08/23/21 at 16:23; Stop 08/23/21 at 16:24; Status DC Aspirin (Aspirin Chewable) 81 mg DAILYWBKFT PO Last administered on 08/28/21at 07:47; Start 08/24/21 at 08:00 Phenylephrine HCl 50 mg/Sodium Chloride 255 ml @ 14.351 mls/ hr CONT PRN IV PER PROTOCOL Last administered on 08/23/21at 16:42; Start 08/23/21 at 16:45 Phenylephrine HCl (PHENYLEPHRINE in 0.9% NACL PF) 1 mg STK-MED ONCE IV ; Start 08/23/21 at 16:41; Stop 08/23/21 at 16:41; Status DC Heparin Sodium (Porcine) (Heparin Sodium) 10,000 unit STK-MED ONCE .ROUTE ; Start 08/23/21 at 16:47; Stop 08/23/21 at 16:47; Status DC Norepinephrine Bitartrate 8 mg/ Dextrose 258 ml @ 18.15 mls/ hr CONT PRN IV PER PROTOCOL Last administered on 08/24/21at 02:08; Start 08/23/21 at 17:00 Iodixanol (Visipaque 320) 100 ml STK-MED ONCE .ROUTE ; Start 08/23/21 at 17:07; Stop 08/23/21 at 17:07; Status DC Nitroglycerin (Nitroglycerin) 200 mcg 1X ONCE IART Last administered on 08/23/21at 16:35; Start 08/23/21 at 17:15; Stop 08/23/21 at 17:16; Status DC Verapamil HCl (Verapamil) 2.5 mg 1X ONCE IART Last administered on 08/23/21at 16:35; Start 08/23/21 at 17:15; Stop 08/23/21 at 17:16; Status DC Heparin Sodium (Porcine) (Heparin Sodium) 2,500 unit 1X ONCE IART Last a dministered on 08/23/21at 16:42; Start 08/23/21 at 17:15; Stop 08/23/21 at 17:16; Status DC Heparin Sodium/ Sodium Chloride (HEPARIN for ARTERIAL LINE FLUSH) 1,000 unit 1X ONCE IART Last administered on 08/23/21at 17:15; Start 08/23/21 at 17:15; Stop 08/23/21 at 17:16; Status DC Heparin Sodium/ Sodium Chloride (HEPARIN for ARTERIAL LINE FLUSH) 4,000 unit 1X ONCE IV Last administered on 08/23/21at 17:15; Start 08/23/21 at 17:15; Stop 08/23/21 at 17:16; Status DC Iodixanol (Visipaque 320) 100 ml 1X ONCE IART Last administered on 08/23/21at 17:15; Start 08/23/21 at 17:15; Stop 08/23/21 at 17:16; Status DC Heparin Sodium (Porcine) (Heparin Sodium) 5,000 unit 1X ONCE INT CAT Last administered on 08/23/21at 16:52; Start 08/23/21 at 17:15; Stop 08/23/21 at 1 7:16; Status DC Tirofiban/Sodium Chloride 250 ml @ As Directed STK-MED ONCE IV ; Start 08/23/21 at 17:18; Stop 08/23/21 at 17:18; Status DC Tirofiban/Sodium Chloride 250 ml @ 16.884 mls/ hr CONT PRN IV PER PROTOCOL Last administered on 08/23/21at 17:16; Start 08/23/21 at 17:45; Stop 08/24/21 at 11:44; Status DC Heparin Sodium (Porcine) (Heparin Sodium) 5,000 unit 1X ONCE IV Last administered on 08/23/21at 17:09; Start 08/23/21 at 18:30; Stop 08/23/21 at 18:31; Status DC Levetiracetam 100 ml @ 400 mls/hr Q12HR IV Last administered on 08/26/21at 11:29; Start 08/23/21 at 21:00; Stop 08/26/21 at 21:06; Status DC Heparin Sodium/ Dextrose 250 ml @ 11.256 mls/ hr CONT PRN IV PER PROTOCOL Last administered on 08/28/21at 01:02; Start 08/23/21 at 18:45 Heparin Sodium (Porcine) (Heparin Sodium) 2,350 unit PRN Q6HRS PRN IV FOR UFH LEVEL LESS THAN 0.2 Last administered on 08/27/21at 01:28; Start 08/23/21 at 18:45 Clopidogrel Bisulfate (Plavix) 600 mg 1X ONCE PO Last administered on 08/23/21at 22:06; Start 08/23/21 at 22:30; Stop 08/23/21 at 22:31; Status DC Potassium Chloride/Water 100 ml @ 100 mls/hr Q1H IV Last administered on 08/24at 02:00; Start 08/23/21 at 22:00; Stop 08/24/21 at 01:59; Status DC Daptomycin 520 mg/ Sodium Chloride 50 ml @ 100 mls/hr Q24H IV Last administered on 08/26/21at 12:57; Start 08/24/21 at 11:00; Stop 08/27/21 at 08:17; Status DC Linezolid (Zyvox) 600 mg BID PO Last administered on 08/28/21at 07:47; Start 08/24/21 at 10:00 Amiodarone HCl (Cordarone) 200 mg DAILY PO Last administered on 08/28/21at 07:47; Start 08/24/21 at 12:00 Furosemide (Lasix) 40 mg DAILY IVP Last administered on 08/28/21at 07:47; Start 08/25/21 at 09:00 Atorvastatin Calcium (Lipitor) 20 mg QHS PO Last administered on 08/26/21at 22:04; Start 08/24/21 at 21:00; Stop 08/27/21 at 13:59; Status DC Clopidogrel Bisulfate (Plavix) 75 mg 1X ONCE PO ; Start 08/24/21 at 11:30; Stop 08/24/21 at 11:31; Status UNV Clopidogrel Bisulfate (Plavix) 75 mg DAILYWBKFT PO Last administered on 08/28/21at 07:47; Start 08/24/21 at 12:00 Epinephrine HCl (EPINEPHrine SYRINGE) 1 mg STK-MED ONCE .ROUTE ; Start 08/23/21 at 17:00; Stop 08/24/21 at 12:21; Status DC Sodium Bicarbonate (Sodium Bicarb Adult 8.4% Syr) 50 meq STK-MED ONCE .ROUTE ; Start 08/23/21 at 17:00; Stop 08/24/21 at 12:21; Status DC Potassium Chloride/Water 100 ml @ 100 mls/hr Q1H IV Last administered on 08/25/21at 13:32; Start 08/25/21 at 10:00; Stop 08/25/21 at 12:59; Status DC Potassium Chloride/Water 100 ml @ 100 mls/hr Q1H IV Last administered on 08/26/21at 10:05; Start 08/26/21 at 09:00; Stop 08/26/21 at 11:59; Status DC Potassium Bicarbonate (Potassium Effervescent Tablet) 60 meq 1X ONCE PO Last administered on 08/26/21at 13:51; Start 08/26/21 at 10:30; Stop 08/26/21 at 10:31; Status DC Levetiracetam 500 mg/Dextrose 105 ml @ 100 mls/hr Q12HR IV Last administered on 08/28/21at 09:00; Start 08/26/21 at 21:30; Stop 08/28/21 at 12:27; Status DC Potassium Bicarbonate (Potassium Effervescent Tablet) 20 meq TID PO Last administered on 08/28/21at 14:42; Start 08/27/21 at 09:30 Losartan Potassium (Cozaar) 25 mg DAILY PO Last administered on 08/28/21at 07:48; Start 08/27/21 at 15:00 Spironolactone (Aldactone) 25 mg DAILY PO Last administered on 08/28/21at 07:46; Start 08/27/21 at 15:00 Atorvastatin Calcium (Lipitor) 40 mg QHS PO Last administered on 08/27/21at 22:21; Start 08/27/21 at 21:00 Atropine Sulfate (ATROPINE 1mg SYRINGE) 1 mg STK-MED ONCE .ROUTE ; Start 08/23/21 at 12:32; Stop 08/27/21 at 14:26; Status DC Levetiracetam 100 ml @ 100 mls/hr Q12HR IV ; Start 08/28/21 at 21:00; Status Cancel Levetiracetam (Keppra Oral Soln) 500 mg BID PEG ; Start 08/28/21 at 21:00 Vitals/I & O Vital Sign - Last 24 Hours 08/27/21 08/27/21 08/27/21 08/27/21 15:00 15:44 16:00 17:00 Temp 98.2 98.2 Pulse 55 54 60 Resp 30 30 30 B/P (MAP) 126/78 125/81 159/89 Pulse Ox 100 94 100 100 O2 Delivery Ventilator Ventilator Ventilator Ventilator 08/27/21 08/27/21 08/27/21 08/27/21 17:54 18:00 19:00 20:00 Pulse 70 54 Resp 30 30 B/P (MAP) 113/72 113/72 Pulse Ox 100 100 100 O2 Delivery Ventilator Ventilator Ventilator Mechanical Ventilator 08/27/21 08/27/21 08/27/21 08/27/21 20:00 20:41 21:00 22:00 Temp 98.8 98.8 Pulse 54 54 54 Resp 30 30 30 B/P (MAP) 143/82 141/86 138/82 Pulse Ox 100 100 100 100 O2 Delivery Ventilator Ventilator Ventilator Ventilator 08/27/21 08/27/21 08/28/21 08/28/21 23:00 23:00 00:00 01:00 Temp 98.4 98.4 Pulse 50 52 52 Resp 30 30 30 B/P (MAP) 124/79 134/81 113/70 Pulse Ox 100 100 100 100 O2 Delivery Ventilator Ventilator Ventilator Ventilator 08/28/21 08/28/21 08/28/21 08/28/21 02:00 02:35 03:00 04:00 Temp 98.2 98.2 Pulse 56 60 54 Resp 30 30 30 B/P (MAP) 157/86 119/66 91/55 Pulse Ox 99 96 98 94 O2 Delivery Ventilator Ventilator Ventilator Ventilator 08/28/21 08/28/21 08/28/21 08/28/21 05:10 05:24 06:00 07:00 Pulse 64 62 62 Resp 30 30 30 B/P (MAP) 119/74 142/86 158/86 Pulse Ox 100 100 100 100 O2 Delivery Ventilator Ventilator Ventilator Ventilator 08/28/21 08/28/21 08/28/21 08/28/21 07:47 07:48 08:00 08:00 Pulse 75 75 62 Resp 30 B/P (MAP) 158/86 99/65 Pulse Ox 100 O2 Delivery Ventilator Mechanical Ventilator 08/28/21 08/28/21 08/28/21 08/28/21 08:07 09:00 10:00 10:10 Temp 97.8 97.8 Pulse 62 62 Resp 30 30 B/P (MAP) 105/69 109/73 Pulse Ox 100 100 100 100 O2 Delivery Ventilator Ventilator Ventilator 08/28/21 08/28/21 08/28/21 08/28/21 10:58 12:00 12:05 13:00 Temp 97.6 97.6 Pulse 62 68 60 Resp 30 30 30 B/P (MAP) 111/74 107/69 119/77 Pulse Ox 100 100 99 100 O2 Delivery Ventilator Ventilator Intake and Output 08/27/21 08/27/21 08/28/21 14:59 22:59 06:59 Intake Total 0 ml 1728.18 ml 2266 ml Output Total 2425 ml 535 ml 840 ml Balance -2425 ml 1193.18 ml 1426 ml Justicifation of Admission Dx: Justifications for Admission: Justification of Admission Dx: N/A KEKE ARREAGA MD Aug 28, 2021 14:56
--- NOTE | 2021-08-28 15:46 | NUR ---
SS following up with discharge planning. SS reviewed pt chart and discussed with pt RN. Pt is currently on the vent at 60%. COVID19 recovered. Pt on Fentanyl, Versed, and Propofol. Pt on IV Zosyn and IV Solu-Medrol. Cardiology to attempt to stent RCA on , 08/30/2021. Not ready. SS will continue to follow for discharge planning.
[2021-08-28] MEDS: fentaNYL HIGH DOSE PCA 55 ML IV PRN (19:11)
[2021-08-28] MEDS: ATORVASTATIN CALCIUM 40 MG TABLET. PO SCH (21:57)
[2021-08-28] MEDS: levETIRAcetam 500 MG/5 ML ORAL SOLUTION. PEG SCH (21:57)
[2021-08-29] VITALS (24 sets, daily range): BP systolic 92–172; BP diastolic 55–100
[2021-08-29] MEDS: MIDAZOLAM 100mg/100ml NS BAG 100 ML IV PRN ×3 (01:36→22:52)
[2021-08-29] MEDS: PIPERACILLIN/TAZOBACTAM 4.5 GM in IV DEXTROSE 5% 100ML 100 ML IV SCH ×3 (05:33→18:52)
[2021-08-29] MEDS: methylPREDNISolone SOD SUCC PF 125 MG/2 ML VIAL. IV SCH ×3 (05:33→21:34)
--- NOTE | 2021-08-29 06:03 | RAD ---
XR CHEST 1V INDICATION: RF 109 COMPARISON STUDY: 08/28/2021. FINDINGS: Life Support Devices: Stable endotracheal, enteric tube, right PICC. Lungs: Normal lung volume. Stable diffuse bilateral opacities. Pleura: Small pleural effusion. Heart and Mediastinum: Stable cardiomediastinal silhouette and great vessels. Bones and Soft Tissues: Stable regional skeleton and soft tissues. IMPRESSION: 1. Stable diffuse bilateral opacities. 2. Small pleural effusions. 3. Stable life support devices. Electronically signed by: Yifan Samson MD (08/29/2021 6:00 AM) [facility]
[2021-08-29 06:10] LABS: BASO # 0.1 x10^3/uL (0.0-0.2); BASO % 0 % (0-3); EOS % 0 % (0-3); HEMATOCRIT 35.8 % (39.0-53.0); HEMOGLOBIN 11.7 g/dL (13.0-17.5); LYMPH # 1.2 x10^3/uL (1.0-4.8); LYMPH % 7 % (24-48); MEAN CORPUSCULAR HEMOGLOBIN 29 pg (25-35); MEAN CORPUSCULAR HGB CONC 33 g/dL (31-37); MEAN CORPUSCULAR VOLUME 88 fL (79-100); MONO # 0.8 x10^3/uL (0.0-1.1); MONO % 4 % (0-9); NEUT # 15.8 x10^3/uL (1.8-7.7); NEUT % 89 % (31-73); PLATELET COUNT 409 x10^3/uL (140-400); RED BLOOD COUNT 4.05 x10^6/uL (4.30-5.70); RED CELL DISTRIBUTION WIDTH 14.1 % (11.5-14.5); WHITE BLOOD COUNT 17.8 x10^3/uL (4.0-11.0)
[2021-08-29 06:54] LABS: CALCIUM 7.7 mg/dL (8.5-10.1); GFR 75.5; POTASSIUM 4.1 mmol/L (3.5-5.1)
[2021-08-29 07:29] LABS: BASE EXCESS ABG 8 mmol/L (-3-3); HCO3 ABG 34 mmol/L (21-28); PCO2 ABG 53 mmHg (35-46); PO2 ABG 74 mmHg (65-108); SAT O2 ABG 94 % (92-99)
[2021-08-29 07:33] LABS: FIO2 ABG 60
--- NOTE | 2021-08-29 07:33 | PDOC ---
Infectious Disease Note Subjective Subjective Patient intubated/sedated Does open eyes to verbal stimuli Discussed with ROLAND CERVANTES no n/v/d/ Vital Sign Vital Signs Vital Signs Date Time Temp Pulse Resp B/P (MAP) Pulse Ox O2 Delivery O2 Flow Rate FiO2 08/29/21 07:11 99 Ventilator 08/29/21 06:00 84 31 158/94 08/29/21 04:00 98.4 98.4 08/28/21 19:41 4.0 Physical Exam PHYSICAL EXAM GENERAL: Intubated and sedated, opens eyes to verbal stimuli HEENT: No conjunctival petechia. ETT, OGT tube present. NECK: Supple. LUNGS: Coarse breath sounds in the bases, otherwise clear. HEART: S1, S2, irregular. I could not appreciate any murmurs. ABDOMEN: Soft, nontender, nondistended. Bowel sounds present. GENITOURINARY: Berumen in place. EXTREMITIES: Present no cyanosis. Right groin catheter removed, right upper extremity PICC line placed on 08/23/2021. DERMATOLOGIC: Warm, dry, no generalized rash. NEUROLOGIC: Unable to assess. Labs Lab Laboratory Tests Test 08/28/21 08:30 08/28/21 08:50 08/28/21 15:05 08/28/21 22:00 O2 Saturation 95 % (92-99) Arterial Blood pH 7.42 (7.35-7.45) Arterial Blood pCO2 at Patient Temp 54 mmHg (35-46) Arterial Blood pO2 at Patient Temp 78 mmHg (65-108) Arterial Blood HCO3 34 mmol/L (21-28) Arterial Blood Base Excess 8 mmol/L (-3-3) FiO2 65 Heparin Anti-Xa Act, Unfractionated 0.37 IU/mL (0.30-0.70) 0.24 IU/mL (0.30-0.70) 0.51 IU/mL (0.30-0.70) Test 08/29/21 05:30 White Blood Count 17.8 x10^3/uL (4.0-11.0) Red Blood Count 4.05 x10^6/uL (4.30-5.70) Hemoglobin 11.7 g/dL (13.0-17.5) Hematocrit 35.8 % (39.0-53.0) Mean Corpuscular Volume 88 fL (79-100) Mean Corpuscular Hemoglobin 29 pg (25-35) Mean Corpuscular Hemoglobin Concent 33 g/dL (31-37) Red Cell Distribution Width 14.1 % (11.5-14.5) Platelet Count 409 x10^3/uL (140-400) Neutrophils (%) (Auto) 89 % (31-73) Lymphocytes (%) (Auto) 7 % (24-48) Monocytes (%) (Auto) 4 % (0-9) Eosinophils (%) (Auto) 0 % (0-3) Basophils (%) (Auto) 0 % (0-3) Neutrophils # (Auto) 15.8 x10^3/uL (1.8-7.7) Lymphocytes # (Auto) 1.2 x10^3/uL (1.0-4.8) Monocytes # (Auto) 0.8 x10^3/uL (0.0-1.1) Eosinophils # (Auto) 0.0 x10^3/uL (0.0-0.7) Basophils # (Auto) 0.1 x10^3/uL (0.0-0.2) Heparin Anti-Xa Act, Unfractionated 0.80 IU/mL (0.30-0.70) Sodium Level 142 mmol/L (136-145) Potassium Level 4.1 mmol/L (3.5-5.1) Chloride Level 100 mmol/L (98-107) Carbon Dioxide Level 37 mmol/L (21-32) Anion Gap 5 (6-14) Blood Urea Nitrogen 28 mg/dL (8-26) Creatinine 1.0 mg/dL (0.7-1.3) Estimated GFR (Cockcroft-Gault) 75.5 Glucose Level 186 mg/dL (70-99) Calcium Level 7.7 mg/dL (8.5-10.1) Micro Microbiology 08/24/21 Blood Culture - Preliminary, Resulted NO GROWTH AFTER 2 DAYS 08/23/21 Respiratory Culture Gram Stain - Final, Complete 08/23/21 Respiratory Culture - Final, Complete Objective Assessment Fever multifactorial s/p code ,possible aspiration pattern improved 1. Gram-positive bacteremia,MRSE 08/22/2021.Central line was pulled out 2. Acute hypoxic respiratory failure. 3. COVID-19 pneumonia. 4. Chronic obstructive pulmonary disease with possible underlying pulmonary fibrosis, aspiration pneumonia. 5. Status post code atrial fibrillation with rapid ventricular response, ventricular fibrillation, status post defibrillation, epinephrine, bicarbonate drip, status post cardiac catheterization. IABP placement. 6. Severe protein-calorie malnutrition. 7. Abnormal liver function tests, likely shock liver. 8. Anemia. 9. Encephalopathy likely anoxic 10.Electrolyte abn 11.Leucocytosis improving Plan Plan of Care cont Zyvox,Zosyn. CPK 376 ,repeat 107 monitor closely f/u Repeat blood cultures neg so far Follow up labs and cultures. Continue supportive care. Central lihe had been pulled out earlier during this hosp per staff PICC line was placed on 08/23/2021. If repeat blood cultures are positive, the patient will need PICC line removal. Critically ill. Prognosis guarded. Discussed with RN. BERNARD LOWERY MD Aug 29, 2021 07:33
[2021-08-29] MEDS: fentaNYL HIGH DOSE PCA 55 ML IV PRN ×2 (08:08→19:48)
[2021-08-29] MEDS: PROPOFOL 100 ML IV PRN ×2 (08:09→14:13)
--- NOTE | 2021-08-29 08:17 | PDOC ---
PULMONARY PROGRESS NOTES DATE: 08/29/21 TIME: 08:17 Subjective Sedated, 50% FiO2 5 of PEEP ABG 7.43 PaO2 of 74 Vitals Vital Signs Date Time Temp Pulse Resp B/P (MAP) Pulse Ox O2 Delivery O2 Flow Rate FiO2 08/29/21 07:11 99 Ventilator 08/29/21 06:00 84 31 158/94 08/29/21 04:00 98.4 98.4 08/28/21 19:41 4.0 Comments Patient remains intubated and sedated, unable to report review of systems at this time. Lungs: Crackles Cardiovascular: S1, S2 Abdomen: Soft, Non-tender Extremities: No Edema Skin: Warm Labs Laboratory Tests Test 08/27/21 08:24 08/27/21 17:04 08/28/21 06:20 08/28/21 08:30 White Blood Count 8.2 x10^3/uL (4.0-11.0) 13.8 x10^3/uL (4.0-11.0) Red Blood Count 3.46 x10^6/uL (4.30-5.70) 3.84 x10^6/uL (4.30-5.70) Hemoglobin 9.9 g/dL (13.0-17.5) 11.2 g/dL (13.0-17.5) Hematocrit 30.8 % (39.0-53.0) 33.9 % (39.0-53.0) Mean Corpuscular Volume 89 fL (79-100) 88 fL (79-100) Mean Corpuscular Hemoglobin 29 pg (25-35) 29 pg (25-35) Mean Corpuscular Hemoglobin Concent 32 g/dL (31-37) 33 g/dL (31-37) Red Cell Distribution Width 14.5 % (11.5-14.5) 14.0 % (11.5-14.5) Platelet Count 330 x10^3/uL (140-400) 405 x10^3/uL (140-400) Heparin Anti-Xa Act, Unfractionated 0.92 IU/mL (0.30-0.70) > 1.10 IU/mL (0.30-0.70) Sodium Level 147 mmol/L (136-145) 143 mmol/L (136-145) Potassium Level 3.9 mmol/L (3.5-5.1) 4.1 mmol/L (3.5-5.1) Chloride Level 107 mmol/L (98-107) 102 mmol/L (98-107) Carbon Dioxide Level 33 mmol/L (21-32) 35 mmol/L (21-32) Anion Gap 7 (6-14) 6 (6-14) Blood Urea Nitrogen 33 mg/dL (8-26) 31 mg/dL (8-26) Creatinine 1.1 mg/dL (0.7-1.3) 0.9 mg/dL (0.7-1.3) Estimated GFR (Cockcroft-Gault) 67.6 85.2 BUN/Creatinine Ratio 30 (6-20) Glucose Level 165 mg/dL (70-99) 172 mg/dL (70-99) Calcium Level 8.1 mg/dL (8.5-10.1) 7.9 mg/dL (8.5-10.1) Total Bilirubin 0.5 mg/dL (0.2-1.0) Aspartate Amino Transf (AST/SGOT) 50 U/L (15-37) Alanine Aminotransferase (ALT/SGPT) 59 U/L (16-63) Alkaline Phosphatase 112 U/L (46-116) Total Protein 5.4 g/dL (6.4-8.2) Albumin 1.9 g/dL (3.4-5.0) Albumin/Globulin Ratio 0.5 (1.0-1.7) O2 Saturation 95 % (92-99) Arterial Blood pH 7.42 (7.35-7.45) Arterial Blood pCO2 at Patient Temp 54 mmHg (35-46) Arterial Blood pO2 at Patient Temp 78 mmHg (65-108) Arterial Blood HCO3 34 mmol/L (21-28) Arterial Blood Base Excess 8 mmol/L (-3-3) FiO2 65 Test 08/28/21 08:50 08/28/21 15:05 08/28/21 22:00 08/29/21 05:30 Heparin Anti-Xa Act, Unfractionated 0.37 IU/mL (0.30-0.70) 0.24 IU/mL (0.30-0.70) 0.51 IU/mL (0.30-0.70) 0.80 IU/mL (0.30-0.70) White Blood Count 17.8 x10^3/uL (4.0-11.0) Red Blood Count 4.05 x10^6/uL (4.30-5.70) Hemoglobin 11.7 g/dL (13.0-17.5) Hematocrit 35.8 % (39.0-53.0) Mean Corpuscular Volume 88 fL (79-100) Mean Corpuscular Hemoglobin 29 pg (25-35) Mean Corpuscular Hemoglobin Concent 33 g/dL (31-37) Red Cell Distribution Width 14.1 % (11.5-14.5) Platelet Count 409 x10^3/uL (140-400) Neutrophils (%) (Auto) 89 % (31-73) Lymphocytes (%) (Auto) 7 % (24-48) Monocytes (%) (Auto) 4 % (0-9) Eosinophils (%) (Auto) 0 % (0-3) Basophils (%) (Auto) 0 % (0-3) Neutrophils # (Auto) 15.8 x10^3/uL (1.8-7.7) Lymphocytes # (Auto) 1.2 x10^3/uL (1.0-4.8) Monocytes # (Auto) 0.8 x10^3/uL (0.0-1.1) Eosinophils # (Auto) 0.0 x10^3/uL (0.0-0.7) Basophils # (Auto) 0.1 x10^3/uL (0.0-0.2) Sodium Level 142 mmol/L (136-145) Potassium Level 4.1 mmol/L (3.5-5.1) Chloride Level 100 mmol/L (98-107) Carbon Dioxide Level 37 mmol/L (21-32) Anion Gap 5 (6-14) Blood Urea Nitrogen 28 mg/dL (8-26) Creatinine 1.0 mg/dL (0.7-1.3) Estimated GFR (Cockcroft-Gault) 75.5 Glucose Level 186 mg/dL (70-99) Calcium Level 7.7 mg/dL (8.5-10.1) Test 08/29/21 07:20 O2 Saturation 94 % (92-99) Arterial Blood pH 7.43 (7.35-7.45) Arterial Blood pCO2 at Patient Temp 53 mmHg (35-46) Arterial Blood pO2 at Patient Temp 74 mmHg (65-108) Arterial Blood HCO3 34 mmol/L (21-28) Arterial Blood Base Excess 8 mmol/L (-3-3) FiO2 60 Laboratory Tests Test 08/28/21 08:30 08/28/21 08:50 08/28/21 15:05 08/28/21 22:00 O2 Saturation 95 % (92-99) Arterial Blood pH 7.42 (7.35-7.45) Arterial Blood pCO2 at Patient Temp 54 mmHg (35-46) Arterial Blood pO2 at Patient Temp 78 mmHg (65-108) Arterial Blood HCO3 34 mmol/L (21-28) Arterial Blood Base Excess 8 mmol/L (-3-3) FiO2 65 Heparin Anti-Xa Act, Unfractionated 0.37 IU/mL (0.30-0.70) 0.24 IU/mL (0.30-0.70) 0.51 IU/mL (0.30-0.70) Test 08/29/21 05:30 08/29/21 07:20 White Blood Count 17.8 x10^3/uL (4.0-11.0) Red Blood Count 4.05 x10^6/uL (4.30-5.70) Hemoglobin 11.7 g/dL (13.0-17.5) Hematocrit 35.8 % (39.0-53.0) Mean Corpuscular Volume 88 fL (79-100) Mean Corpuscular Hemoglobin 29 pg (25-35) Mean Corpuscular Hemoglobin Concent 33 g/dL (31-37) Red Cell Distribution Width 14.1 % (11.5-14.5) Platelet Count 409 x10^3/uL (140-400) Neutrophils (%) (Auto) 89 % (31-73) Lymphocytes (%) (Auto) 7 % (24-48) Monocytes (%) (Auto) 4 % (0-9) Eosinophils (%) (Auto) 0 % (0-3) Basophils (%) (Auto) 0 % (0-3) Neutrophils # (Auto) 15.8 x10^3/uL (1.8-7.7) Lymphocytes # (Auto) 1.2 x10^3/uL (1.0-4.8) Monocytes # (Auto) 0.8 x10^3/uL (0.0-1.1) Eosinophils # (Auto) 0.0 x10^3/uL (0.0-0.7) Basophils # (Auto) 0.1 x10^3/uL (0.0-0.2) Heparin Anti-Xa Act, Unfractionated 0.80 IU/mL (0.30-0.70) Sodium Level 142 mmol/L (136-145) Potassium Level 4.1 mmol/L (3.5-5.1) Chloride Level 100 mmol/L (98-107) Carbon Dioxide Level 37 mmol/L (21-32) Anion Gap 5 (6-14) Blood Urea Nitrogen 28 mg/dL (8-26) Creatinine 1.0 mg/dL (0.7-1.3) Estimated GFR (Cockcroft-Gault) 75.5 Glucose Level 186 mg/dL (70-99) Calcium Level 7.7 mg/dL (8.5-10.1) O2 Saturation 94 % (92-99) Arterial Blood pH 7.43 (7.35-7.45) Arterial Blood pCO2 at Patient Temp 53 mmHg (35-46) Arterial Blood pO2 at Patient Temp 74 mmHg (65-108) Arterial Blood HCO3 34 mmol/L (21-28) Arterial Blood Base Excess 8 mmol/L (-3-3) FiO2 60 Impression . 1. Acute hypoxic respiratory failure secondary to COVID-19 pneumonia, acute respiratory distress syndrome and possible underlying fibrosis and emphysema., Extubated 08/20, reintubated 08/23 status post CODE BLUE 2. Abnormal CT chest 3. Hypernatremia 4. Suspected underlying severe chronic obstructive pulmonary disease. 5. COVID-19 viral pneumonia.--- Covid recovered 6. Abnormal chest x-ray with bilateral diffuse infiltrates related to COVID-19 viral pneumonia.--- Covid recovered 7. Patient reintubated 08/23, status post CODE BLUE 8. Abnormal x-ray from 08/15, possible ARDS, possible pulmonary edema, possible aspiration 9. ST elevation [place] status post intra-aortic balloon pump--08/23/2021 10. Emergent cardiac catheterization revealing 90% stenotic lesion 11. Echocardiogram revealing ejection fraction of 35 to 40% pulmonary artery pressure of 34 inferior septal wall hypokinesis 12. Bacteremia Staph epidermidis Plan . Updated 08/29 Discussed with at the bedside Cardiac catheterization tomorrow We will continue current assist control ventilation Continue assist-control ventilation, wean FiO2 down Off of intra-aortic balloon pump and pressors Diurese Antibiotics per ID Continue heparin drip Discussed with at the bedside, CCT 30 minutes REBECCA DUGGAN MD Aug 29, 2021 08:17
[2021-08-29] MEDS: levETIRAcetam 500 MG/5 ML ORAL SOLUTION. PEG SCH ×2 (08:35→21:32)
[2021-08-29] MEDS: FUROSEMIDE 40 MG/4 ML VIAL. IVP SCH (08:37)
[2021-08-29] MEDS: FAMOTIDINE 20 MG/2 ML VIAL IVP SCH ×2 (08:37→21:34)
[2021-08-29] MEDS: ASPIRIN CHEWABLE 81 MG TABLET. PO SCH (08:37)
[2021-08-29] MEDS: AMIODARONE HCL 200 MG TABLET. PO SCH (08:37)
[2021-08-29] MEDS: SPIRONOLACTONE 25 MG TABLET PO SCH (08:37)
[2021-08-29] MEDS: CLOPIDOGREL BISULFATE 75 MG TABLET PO SCH (08:37)
[2021-08-29] MEDS: LINEZOLID 600 MG TABLET PO SCH ×2 (08:37→21:32)
[2021-08-29] MEDS: IV DEXTROSE 5%-LACT RINGERS 1,000 ML IV SCH ×2 (08:38→21:35)
--- NOTE | 2021-08-29 08:58 | PN ---
DATE: 08/29/2021 SUBJECTIVE: The patient is continued to be sedated, intubated and mechanically ventilated. He is off the intraaortic balloon pump as well as vasopressors, maintaining his oxygen saturation at 99% on FiO2 of 55%. PHYSICAL EXAMINATION: GENERAL: When I examined him, he was pale, no jaundice, cyanosis or thyromegaly. No jugular venous distention. No limb edema. VITAL SIGNS: His heart rate was 84, blood pressure was 158/94, temperature 98.4, respiratory rate 31, and oxygen saturation was 99% on FiO2 of 55%. HEAD, EYES, EARS, NOSE, AND THROAT: Normocephalic, atraumatic. Has orotracheal and orogastric tube. NECK: Supple. HEART: Normal first and second heart sounds. No gallop or murmur. CHEST: Showed central trachea, equal bilateral chest expansion, air entry, vesicular breath sounds. I could not appreciate any crepitation or rhonchi anteriorly. ABDOMEN: Distended, soft, nontender, no guarding or rigidity. No organomegaly. All hernial orifice intact. Bowel sounds normal. NEUROLOGIC: He was heavily sedated. His intake over the last 24 hours was 4000, output was 3800. LABORATORY DATA: As of this morning, his white cell count was 17,800, hemoglobin 11.7, hematocrit 35.8, MCV 88 and platelet count of 109,000. His chemistry showed a serum sodium 142, potassium 4.1, chloride 100, bicarbonate 37, anion gap of 5, BUN 28, creatinine 1, estimated GFR was 75 mL per minute. His glucose was 186, calcium was 7.2. His blood gases showed a pH of 7.43, a pCO2 of 53, pO2 of 74, bicarbonate 34 and oxygen saturation was 94% on FiO2 of 60%. His blood culture has grown Staphylococcus epidermidis. ASSESSMENT: 1. Status post code blue cardiac arrest, likely from hypoxia associated with COVID and acute myocardial infarction. Apparently, the patient went into ventricular tachycardia, it was shocked and he also went into ventricular fibrillation, treatment round of epinephrine with return of spontaneous circulation. 2. Acute on chronic hypoxic respiratory failure. 3. Acute respiratory distress syndrome. 4. Acute exacerbation of chronic obstructive pulmonary disease. 5. COVID-19 pneumonia. 6. Atrial fibrillation with rapid ventricular response. 7. Inferior ST segment elevation myocardial infarction. 8. Shock, multifactorial including both cardiogenic as well as septic shock. 9. The patient underwent emergent left heart catheterization and was found to have totally occluded right coronary artery. He apparently is scheduled for another cardiac catheterization tomorrow, , 08/30/2021. PLAN: Obvious to continue with mechanical ventilation, wean as tolerated. Continue with IV antibiotic. Continue with heparin drip. ALEJANDRO DR: Vannessa TID: [id number]
[2021-08-29] MEDS: LOSARTAN POTASSIUM 25 MG TABLET. PO SCH (09:41)
--- NOTE | 2021-08-29 10:37 | PDOC ---
TETO DIAZ SCARF AND ANNEAL OPERATOR 08/29/21 1037: CARDIO Progress Notes Date and Time Date of Service 08/29/21 Time of Evaluation 1030 Subjective Subjective: Other (intubated ) Vitals Vitals Vital Signs Date Time Temp Pulse Resp B/P (MAP) Pulse Ox O2 Delivery O2 Flow Rate FiO2 08/29/21 09:56 100 Ventilator 08/29/21 09:41 71 124/73 08/29/21 06:00 31 08/29/21 04:00 98.4 98.4 08/28/21 19:41 4.0 Weight Weight [ ] Input and Output Intake and Output Intake and Output 08/29/21 07:00 Intake Total 4351.3 ml Output Total 3925 ml Balance 426.3 ml IV Total 3234.3 ml Tube Feeding 657 ml Other 460 ml Output Urine Total 3925 ml Laboratory Labs Laboratory Tests Test 08/28/21 15:05 08/28/21 22:00 08/29/21 05:30 08/29/21 07:20 Heparin Anti-Xa Act, Unfractionated 0.24 IU/mL (0.30-0.70) 0.51 IU/mL (0.30-0.70) 0.80 IU/mL (0.30-0.70) White Blood Count 17.8 x10^3/uL (4.0-11.0) Red Blood Count 4.05 x10^6/uL (4.30-5.70) Hemoglobin 11.7 g/dL (13.0-17.5) Hematocrit 35.8 % (39.0-53.0) Mean Corpuscular Volume 88 fL (79-100) Mean Corpuscular Hemoglobin 29 pg (25-35) Mean Corpuscular Hemoglobin Concent 33 g/dL (31-37) Red Cell Distribution Width 14.1 % (11.5-14.5) Platelet Count 409 x10^3/uL (140-400) Neutrophils (%) (Auto) 89 % (31-73) Lymphocytes (%) (Auto) 7 % (24-48) Monocytes (%) (Auto) 4 % (0-9) Eosinophils (%) (Auto) 0 % (0-3) Basophils (%) (Auto) 0 % (0-3) Neutrophils # (Auto) 15.8 x10^3/uL (1.8-7.7) Lymphocytes # (Auto) 1.2 x10^3/uL (1.0-4.8) Monocytes # (Auto) 0.8 x10^3/uL (0.0-1.1) Eosinophils # (Auto) 0.0 x10^3/uL (0.0-0.7) Basophils # (Auto) 0.1 x10^3/uL (0.0-0.2) Sodium Level 142 mmol/L (136-145) Potassium Level 4.1 mmol/L (3.5-5.1) Chloride Level 100 mmol/L (98-107) Carbon Dioxide Level 37 mmol/L (21-32) Anion Gap 5 (6-14) Blood Urea Nitrogen 28 mg/dL (8-26) Creatinine 1.0 mg/dL (0.7-1.3) Estimated GFR (Cockcroft-Gault) 75.5 Glucose Level 186 mg/dL (70-99) Calcium Level 7.7 mg/dL (8.5-10.1) O2 Saturation 94 % (92-99) Arterial Blood pH 7.43 (7.35-7.45) Arterial Blood pCO2 at Patient Temp 53 mmHg (35-46) Arterial Blood pO2 at Patient Temp 74 mmHg (65-108) Arterial Blood HCO3 34 mmol/L (21-28) Arterial Blood Base Excess 8 mmol/L (-3-3) FiO2 60 Microbiology Micro Microbiology 08/24/21 Blood Culture - Preliminary, Resulted NO GROWTH AFTER 4 DAYS 08/23/21 Respiratory Culture Gram Stain - Final, Complete 08/23/21 Respiratory Culture - Final, Complete Physical Exam HEENT: Other (supple ) Chest: Symmetric LUNGS: Other (MV) Heart: RRR (SR/SB) Abdomen: Other (soft ) Extremities: No Edema, Other (no edema. Eschar to left foot, second toe) Neurology: other (sedated ) Assessment Assessment 1. S/P cardiac arrest; multifactorial. Noted with VT shock x1. approximately <3 min to ROSC. No further arrhythmias 2. Acute on chronic respiratory failure with COVID PNA, ARDS 3. Inferior STEMI with embolic disease. 4. CAD: LHC revealed thrombotic distal right posterior descending artery and right posterior lateral artery occlusion. There was moderate 50% proximal and 90% mid stenosis appeared to have significant thrombotic burden with ectasia and dilation of the coronary artery 5. Cardiogenic shock; improved. IABP removed 6. Acute on chronic systolic CHF, ICM: EF at 35-40% 7. AFIB RVR: presently SR/SB 8. Hypertension; controlled 9. Hyperlipidemi; statin 10. Bacteremia: Gram-positive bacteremia. repeat blood cultures negative 11. Shock liver; improved 12. Encephalopathy with possible seizure; on Keppra 13. Black distal phalanx to left 2nd toe: possibly r/t to covid-19 Recommendations Continue heparin gtt Secondary prevention Amiodarone for rhythm maintenance No BB with bradycardia Plan for a [facility] tomorrow for re-evaluation and consideration of PCI Ongoing support, pulmonary optimization Justicifation of Admission Dx: Justifications for Admission: Justification of Admission Dx: N/A TEDDY ANGLIN MD 08/30/21 0930: CARDIO Progress Notes Plan Plan Late entry for 08/29/21 Pt. seen and examined. Agree with above [facility] SEASON[facility] note. TETO DIAZ APRN Aug 29, 2021 10:37 TEDDY ANGLIN MD Aug 30, 2021 09:30
[2021-08-29] MEDS: POTASSIUM BICARB 20 MEQ EFFERVESCENT TABLET. PO SCH ×3 (10:47→21:33)
[2021-08-29] MEDS: HEPARIN 25,000UTS/250ML PREMIX 250 ML IV PRN (10:48)
--- NOTE | 2021-08-29 14:42 | NUR ---
SS following up with discharge planning. SS reviewed pt chart and discussed with pt RN. Pt is currently on the vent at 50%. COVID19 recovered. Pt on Fentanyl, Versed, Heparin, and Propofol. Pt on IV Zosyn, IV Lasix, and IV Solu-Medrol. Cardiology to attempt to stent RCA on , 08/30/2021. Not ready. SS will continue to follow for discharge planning.
--- NOTE | 2021-08-29 17:24 | NUR ---
Wound Care Wound Type/Assessment: Follow up wound assessment for L 2nd toe and L plantar foot. L plantar toe is dark, dry, stable eschar. L plantar foot intact, dried up blood-filled blister, ST III pressure injury. Right lateral ankle- DTI. No other wounds present on head to toe inspection. Pictured and measured. present at bedside. Treatment Recommendations/Plan: L 2nd toe/plantar foot: [place] with betadine daily and cover with a foam dressing for protection. R lateral ankle- skin prep Education provided: Educated to wear offloading heel medics boots and turn often to prevent new skin breakdown. Offloading surface/device: ICU bed, heel medics, purple wedge turn Left Recommended Referrals/Tests: NA Discharge Recommendations for dressings: As above
[2021-08-29] MEDS: ATORVASTATIN CALCIUM 40 MG TABLET. PO SCH (21:33)
[2021-08-30] VITALS (32 sets, daily range): BP systolic 92–149; BP diastolic 60–95
[2021-08-30] MEDS: PIPERACILLIN/TAZOBACTAM 4.5 GM in IV DEXTROSE 5% 100ML 100 ML IV SCH ×4 (00:44→20:30)
--- NOTE | 2021-08-30 06:07 | RAD ---
XR CHEST 1V INDICATION: RF 109 . COMPARISON STUDY: 08/29/2021. FINDINGS: Life Support Devices: Stable endotracheal tube, enteric tube, right PICC. Lungs: Normal lung volume. Stable diffuse bilateral opacities. Pleura: Stable small bilateral pleural effusion. Heart and Mediastinum: Stable cardiomediastinal silhouette and great vessels. IMPRESSION: 1. Stable diffuse bilateral opacities and small pleural effusions. 2. Stable life support devices. Electronically signed by: Yifan Samson MD (08/30/2021 6:04 AM) [facility]
[2021-08-30] MEDS: methylPREDNISolone SOD SUCC PF 125 MG/2 ML VIAL. IV SCH ×3 (06:50→22:19)
[2021-08-30] MEDS: POTASSIUM BICARB 20 MEQ EFFERVESCENT TABLET. PO SCH ×3 (08:11→22:19)
[2021-08-30] MEDS: ASPIRIN CHEWABLE 81 MG TABLET. PO SCH (08:11)
[2021-08-30] MEDS: LOSARTAN POTASSIUM 25 MG TABLET. PO SCH (08:11)
[2021-08-30] MEDS: CLOPIDOGREL BISULFATE 75 MG TABLET PO SCH (08:11)
[2021-08-30] MEDS: LINEZOLID 600 MG TABLET PO SCH ×2 (08:12→22:20)
[2021-08-30] MEDS: SPIRONOLACTONE 25 MG TABLET PO SCH (08:12)
[2021-08-30] MEDS: AMIODARONE HCL 200 MG TABLET. PO SCH (08:12)
[2021-08-30] MEDS: levETIRAcetam 500 MG/5 ML ORAL SOLUTION. PEG SCH ×2 (08:12→22:19)
[2021-08-30] MEDS: FAMOTIDINE 20 MG/2 ML VIAL IVP SCH ×2 (08:13→22:19)
[2021-08-30] MEDS: IV DEXTROSE 5%-LACT RINGERS 1,000 ML IV SCH ×2 (08:13→20:45)
[2021-08-30] MEDS: FUROSEMIDE 40 MG/4 ML VIAL. IVP SCH (08:13)
[2021-08-30] MEDS: fentaNYL HIGH DOSE PCA 55 ML IV PRN ×2 (08:14→20:32)
[2021-08-30] MEDS: MIDAZOLAM 100mg/100ml NS BAG 100 ML IV PRN ×2 (08:14→18:22)
[2021-08-30 08:21] LABS: BASE EXCESS ABG 8 mmol/L (-3-3); HCO3 ABG 32 mmol/L (21-28); PCO2 ABG 40 mmHg (35-46); PO2 ABG 67 mmHg (65-108); SAT O2 ABG 93 % (92-99)
--- NOTE | 2021-08-30 08:44 | PDOC ---
PULMONARY PROGRESS NOTES DATE: 08/30/21 TIME: 08:44 Subjective Sedated 50 FiO2 and 6 of PEEP Off of pressors Vitals Vital Signs Date Time Temp Pulse Resp B/P (MAP) Pulse Ox O2 Delivery O2 Flow Rate FiO2 08/30/21 08:12 57 139/84 08/30/21 08:03 97 Ventilator 08/30/21 06:00 30 08/30/21 04:00 97.5 97.5 Comments Patient remains intubated and sedated, unable to report review of systems at this time. Lungs: Crackles Cardiovascular: S1, S2 Abdomen: Soft, Non-tender Extremities: No Edema Skin: Warm Labs Laboratory Tests Test 08/28/21 08:50 08/28/21 15:05 08/28/21 22:00 08/29/21 05:30 Heparin Anti-Xa Act, Unfractionated 0.37 IU/mL (0.30-0.70) 0.24 IU/mL (0.30-0.70) 0.51 IU/mL (0.30-0.70) 0.80 IU/mL (0.30-0.70) White Blood Count 17.8 x10^3/uL (4.0-11.0) Red Blood Count 4.05 x10^6/uL (4.30-5.70) Hemoglobin 11.7 g/dL (13.0-17.5) Hematocrit 35.8 % (39.0-53.0) Mean Corpuscular Volume 88 fL (79-100) Mean Corpuscular Hemoglobin 29 pg (25-35) Mean Corpuscular Hemoglobin Concent 33 g/dL (31-37) Red Cell Distribution Width 14.1 % (11.5-14.5) Platelet Count 409 x10^3/uL (140-400) Neutrophils (%) (Auto) 89 % (31-73) Lymphocytes (%) (Auto) 7 % (24-48) Monocytes (%) (Auto) 4 % (0-9) Eosinophils (%) (Auto) 0 % (0-3) Basophils (%) (Auto) 0 % (0-3) Neutrophils # (Auto) 15.8 x10^3/uL (1.8-7.7) Lymphocytes # (Auto) 1.2 x10^3/uL (1.0-4.8) Monocytes # (Auto) 0.8 x10^3/uL (0.0-1.1) Eosinophils # (Auto) 0.0 x10^3/uL (0.0-0.7) Basophils # (Auto) 0.1 x10^3/uL (0.0-0.2) Sodium Level 142 mmol/L (136-145) Potassium Level 4.1 mmol/L (3.5-5.1) Chloride Level 100 mmol/L (98-107) Carbon Dioxide Level 37 mmol/L (21-32) Anion Gap 5 (6-14) Blood Urea Nitrogen 28 mg/dL (8-26) Creatinine 1.0 mg/dL (0.7-1.3) Estimated GFR (Cockcroft-Gault) 75.5 Glucose Level 186 mg/dL (70-99) Calcium Level 7.7 mg/dL (8.5-10.1) Test 08/29/21 07:20 08/29/21 12:50 08/29/21 21:53 08/30/21 04:15 O2 Saturation 94 % (92-99) Arterial Blood pH 7.43 (7.35-7.45) Arterial Blood pCO2 at Patient Temp 53 mmHg (35-46) Arterial Blood pO2 at Patient Temp 74 mmHg (65-108) Arterial Blood HCO3 34 mmol/L (21-28) Arterial Blood Base Excess 8 mmol/L (-3-3) FiO2 60 Heparin Anti-Xa Act, Unfractionated 0.79 IU/mL (0.30-0.70) 0.44 IU/mL (0.30-0.70) 0.30 IU/mL (0.30-0.70) Laboratory Tests Test 08/29/21 12:50 08/29/21 21:53 08/30/21 04:15 Heparin Anti-Xa Act, Unfractionated 0.79 IU/mL (0.30-0.70) 0.44 IU/mL (0.30-0.70) 0.30 IU/mL (0.30-0.70) Impression . 1. Acute hypoxic respiratory failure secondary to COVID-19 pneumonia, acute respiratory distress syndrome and possible underlying fibrosis and emphysema., Extubated 08/20, reintubated 08/23 status post CODE BLUE 2. Abnormal CT chest 3. Hypernatremia 4. Suspected underlying severe chronic obstructive pulmonary disease. 5. COVID-19 viral pneumonia.--- Covid recovered 6. Abnormal chest x-ray with bilateral diffuse infiltrates related to COVID-19 viral pneumonia.--- Covid recovered 7. Patient reintubated 08/23, status post CODE BLUE 8. Abnormal x-ray from 08/15, possible ARDS, possible pulmonary edema, possible aspiration 9. ST elevation [place] status post intra-aortic balloon pump--08/23/2021 10. Emergent cardiac catheterization revealing 90% stenotic lesion 11. Echocardiogram revealing ejection fraction of 35 to 40% pulmonary artery pressure of 34 inferior septal wall hypokinesis 12. Bacteremia Staph epidermidis Plan . Updated 08/30 Awaiting cardiac catheterization Continue current support Off of pressors for now Off of intra-aortic balloon pump and pressors Diurese Antibiotics per ID Continue heparin drip Discussed with at the bedside, CCT 30 minutes REBECCA DUGGAN MD Aug 30, 2021 08:44
[2021-08-30 09:00] LABS: FIO2 ABG 50/AC 30 400 50% +6
--- NOTE | 2021-08-30 10:29 | PN ---
DATE: 08/30/2021 SUBJECTIVE: The patient is resting, slightly propped up in bed, continued to be heavily sedated, intubated and mechanically ventilated. He is apparently scheduled for left heart catheterization and revascularization as he has totally occluded right coronary artery. He is not on any vasopressors. PHYSICAL EXAMINATION: GENERAL: When I examined him, he was pale, not jaundiced, cyanosed or thyromegaly. No jugular venous distention. No limb edema. VITAL SIGNS: His heart rate was 57, blood pressure is 139/84, temperature was 97.5, respiratory rate was 30 and oxygen saturation was 97% on FiO2 of 40%. HEAD, EYES, EARS, NOSE, AND THROAT: Normocephalic, atraumatic. NECK: Supple. HEART: Normal first and second heart sounds. No gallop or murmur. CHEST: Shows central trachea, equal bilateral chest expansion, air entry, vesicular breath sounds. No crepitation or rhonchi. ABDOMEN: Distended, soft, nontender. NEUROLOGIC: He was heavily sedated. His intake over the last 24 hours was 4350, output was 3925 as of this morning. LABORATORY DATA: As of yesterday, his white cell count was 17,800, hemoglobin 11.7, hematocrit 36, MCV 88 and platelet count of 109,000. His chemistry as of yesterday showed a serum sodium 142, potassium 4.1, chloride 100, bicarbonate 37, anion gap of 5, BUN 28, creatinine 1, estimated GFR was 75 mL per minute. His glucose was 186, calcium was 7.7. His blood gas this morning showed a pH of 7.51, pCO2 of 40, pO2 of 67, bicarbonate 32 and oxygen saturation was 93% on FiO2 of 50%. ASSESSMENT: 1. Status post cardiac arrest, likely due to hypoxia associated with COVID-19, acute myocardial infarction. Apparently, the patient went into ventricular tachycardia, shocked and also went into ventricular fibrillation, treated with epinephrine with return of spontaneous circulation. 2. Acute on chronic hypoxic respiratory failure. 3. Acute respiratory distress syndrome. 4. Acute exacerbation of chronic obstructive pulmonary disease. 5. COVID-19 pneumonia. 6. Atrial fibrillation with rapid ventricular response, rate controlled, currently on heparin drip. 7. Inferior segment elevation myocardial infarction. 8. Shock, multifactorial including both cardiogenic as well as septic shock. 9. The patient underwent emergent left heart catheterization and was found to have totally occluded right coronary artery. PLAN: To continue with mechanical ventilation, wean as tolerated. Continue with DVT and GI prophylaxis. Continue with heparin drip. The patient is scheduled for left heart catheterization today. ALEJANDRO DR: Vannessa TID: [id number]
--- NOTE | 2021-08-30 11:55 | PDOC ---
Infectious Disease Note Subjective Subjective Patient intubated/sedated Does open eyes to verbal stimuli Discussed with ROLAND CERVANTES No nausea vomiting diarrhea Vital Sign Vital Signs Vital Signs Date Time Temp Pulse Resp B/P (MAP) Pulse Ox O2 Delivery O2 Flow Rate FiO2 08/30/21 11:03 99 Ventilator 08/30/21 11:00 75 30 144/95 08/30/21 08:00 98.2 98.2 Physical Exam PHYSICAL EXAM GENERAL: Intubated and sedated, opens eyes to verbal stimuli HEENT: No conjunctival petechia. ETT, OGT tube present. NECK: Supple. LUNGS: Coarse breath sounds in the bases, otherwise clear. HEART: S1, S2, irregular. I could not appreciate any murmurs. ABDOMEN: Soft, nontender, nondistended. Bowel sounds present. GENITOURINARY: Berumen in place. EXTREMITIES: Present no cyanosis. Right groin catheter removed, right upper extremity PICC line placed on 08/23/2021. DERMATOLOGIC: Warm, dry, no generalized rash. NEUROLOGIC: Unable to assess. Labs Lab Laboratory Tests Test 08/29/21 12:50 08/29/21 21:53 08/30/21 04:15 08/30/21 08:00 Heparin Anti-Xa Act, Unfractionated 0.79 IU/mL (0.30-0.70) 0.44 IU/mL (0.30-0.70) 0.30 IU/mL (0.30-0.70) O2 Saturation 93 % (92-99) Arterial Blood pH 7.51 (7.35-7.45) Arterial Blood pCO2 at Patient Temp 40 mmHg (35-46) Arterial Blood pO2 at Patient Temp 67 mmHg (65-108) Arterial Blood HCO3 32 mmol/L (21-28) Arterial Blood Base Excess 8 mmol/L (-3-3) FiO2 50/ac 30 400 50% +6 Micro Microbiology 08/24/21 Blood Culture - Preliminary, Resulted NO GROWTH AFTER 2 DAYS 08/23/21 Respiratory Culture Gram Stain - Final, Complete 08/23/21 Respiratory Culture - Final, Complete Objective Assessment Fever multifactorial s/p code ,possible aspiration pattern improved 1. Gram-positive bacteremia,MRSE 08/22/2021.Central line was pulled out 2. Acute hypoxic respiratory failure. 3. COVID-19 pneumonia. 4. Chronic obstructive pulmonary disease with possible underlying pulmonary fibrosis, aspiration pneumonia. 5. Status post code atrial fibrillation with rapid ventricular response, ventricular fibrillation, status post defibrillation, epinephrine, bicarbonate drip, status post cardiac catheterization. IABP placement. 6. Severe protein-calorie malnutrition. 7. Abnormal liver function tests, likely shock liver. 8. Anemia. 9. Encephalopathy likely anoxic 10.Electrolyte abn 11.Leucocytosis improving Plan Plan of Care cont Zyvox,Zosyn. CPK 376 ,repeat 107 monitor closely f/u Repeat blood cultures neg so far Follow up labs and cultures. Continue supportive care. Central lihe had been pulled out earlier during this hosp per staff PICC line was placed on 08/23/2021. If repeat blood cultures are positive, the patient will need PICC line removal. Cath today Discussed with RN. BERNARD LOWERY MD Aug 30, 2021 11:55
[2021-08-30] MEDS ORDERED: NITROGLYCERIN 200 MCG/2 ML SYRINGE FOR CATH/VASC LAB. ONE (12:56)
[2021-08-30] MEDS ORDERED: HEPARIN for IV BOLUS 10,000 UNIT/10 ML VIAL. ONE (12:56)
[2021-08-30] MEDS ORDERED: VERAPAMIL 5 MG/2 ML VIAL. ONE (12:56)
[2021-08-30] MEDS ORDERED: IODIXANOL 320 MG/ML 100 ML VIAL. ONE (12:57)
[2021-08-30] MEDS ORDERED: LIDOCAINE 1% PF 2 ML VIAL. ONE (12:57)
[2021-08-30] MEDS ORDERED: HEPARIN for IV BOLUS 10,000 UNIT/10 ML VIAL. IART ONE (13:00)
[2021-08-30] MEDS ORDERED: VERAPAMIL 5 MG/2 ML VIAL. IART ONE (13:00)
[2021-08-30] MEDS ORDERED: LIDOCAINE 1% PF 2 ML VIAL. INJ ONE (13:00)
[2021-08-30] MEDS ORDERED: IODIXANOL 320 MG/ML 100 ML VIAL. IART ONE (13:00)
[2021-08-30] MEDS ORDERED: NITROGLYCERIN 200 MCG/2 ML SYRINGE FOR CATH/VASC LAB. IART ONE (13:00)
[2021-08-30] MEDS ORDERED: CONTRAST GIVEN. MC PRN (13:15)
[2021-08-30] MEDS: PROPOFOL 100 ML IV PRN ×2 (14:29→18:23)
[2021-08-30] MEDS: HEPARIN 25,000UTS/250ML PREMIX 250 ML IV PRN (14:30)
--- NOTE | 2021-08-30 14:59 | CARD ---
MR#: [id number] Date of Study: 08/30/2021 Ordering Physician: TETO DIAZ, Referring Physician: TETO DIAZ, Tech: RT Summer(R) APPROVED REPORT Technologist: Betty Pretty RT(R) Nurse: Heydi Cabrales RN Procedure(s) performed: FL TIME: 5.2 MINUTES DOSE: 49 Gycm2 CONTRAST: 36 CC'S VISIPAQUE [facility] Intravascular ultrasound of the RCA [facility] Clinical Frailty Scale [facility] Clinical Frailty Scale: Severely Frail Heart Failure Heart Failure: Yes If Yes, Newly Diagnosed: No If Yes, HF Type: Diastolic Systolic If Yes, NYHA Class: Class III CASE TECHNIQUE During this case, Fluoroscopy and low osmolar contrast were used for imaging. Specimen(s) Removed: N/ A Estimated Blood loss: 15 cc's. PROCEDURE NARRATIVE Clinical information: 65-year-old male with recent diagnosis of coronavirus pneumonia was previously taken to the cardiac c atheterization laboratory for a inferior ST elevation CA. He underwent medical therapy due to signif icant thrombus burden. Ultimately, he has been stabilized and down to 50% FiO2 on the ventilator. A repeat cardiac catheterization was undertaken for further evaluation of coronary anatomy. Procedure details: After proper informed consent the right wrist was prepped and draped in usual sterile fashion. Under 1% lidocaine local anesthesia a 6 Georgian sheath was placed in the right radial artery. A 6 Georgian I MA guide catheter was used to obtain a left ventricular end-diastolic pressure and a pullback was per formed. Diagnostic angiography of the right coronary artery was performed. Right coronary angiograp hy revealed patency of the RPDA and RPL and significantly improved blood flow to NEHEMIAH-3. Next a Prow ater wire was placed in the distal RCA. Intravascular ultrasound was then performed. Intravascular ultrasound revealed a ectatic proximal right coronary artery measuring between 5.5 and 6.25 mm. No s ignificant calcific burden was noted. Due to large vessel size a decision was made to defer stenting at this time for continued medical the rapy. After the patient is fully extubated and depending on symptoms could consider PCI. Conclusion 1. Recanalized right coronary artery with brisk blood flow. 2. Residual proximal 70% RCA stenosis with significant ectasia of the RCA measuring up to 6.25 mm. 3. Normal left ventricular filling pressures. Recommendations 1. Continue aspirin, Plavix and heparin drip. 2. Continue plans for extubation. 3. After patient is extubated and stabilized depending on symptoms we will consider high risk PCI wi specialized MegaTron stent given the large vessel size. Signed by : Javier Julian, Electronically Approved : 08/30/2021 14:59:15
--- NOTE | 2021-08-30 22:01 | PDOC ---
PROGRESS NOTES Date of Service DATE: 08/30/21 TIME: 21:57 Assessment Patient continues to be intubated and heavily sedated with Versed, fentanyl and propofol. He periodically will move his head but is not following command. He underwent a cardiac catheterization but a stent was not deployed. He had a cardiopulmonary arrest likely from hypoxia from Covid infection. Plan He is continuing with medical management. Infectious diseases treating underlying infection. Subjective Intubated, ventilated and heavily sedated. He is nonverbal. Objective Vital Signs Date Time Temp Pulse Resp B/P (MAP) Pulse Ox O2 Delivery O2 Flow Rate FiO2 08/30/21 18:00 58 26 133/88 100 Ventilator 08/30/21 16:00 98.0 98.0 Intake and Output 08/30/21 07:00 Intake Total 2308.6 ml Output Total 3430 ml Balance -1121.4 ml IV Total 1228.6 ml Tube Feeding 800 ml Other 280 ml Output Urine Total 3430 ml # Bowel Movements 1 PHYSICAL EXAM His eyes were closed and there was no opening. He would periodically move his head to the left or right. Stimulation produced only a slight amount of alerting. He did not have spontaneous movements of arms or legs at this time. He did not follow commands. Review of Relevant I have reviewed the following items shey (where applicable) has been applied. Labs Laboratory Tests Test 08/28/21 22:00 08/29/21 05:30 08/29/21 07:20 08/29/21 12:50 Heparin Anti-Xa Act, Unfractionated 0.51 IU/mL (0.30-0.70) 0.80 IU/mL (0.30-0.70) 0.79 IU/mL (0.30-0.70) White Blood Count 17.8 x10^3/uL (4.0-11.0) Red Blood Count 4.05 x10^6/uL (4.30-5.70) Hemoglobin 11.7 g/dL (13.0-17.5) Hematocrit 35.8 % (39.0-53.0) Mean Corpuscular Volume 88 fL (79-100) Mean Corpuscular Hemoglobin 29 pg (25-35) Mean Corpuscular Hemoglobin Concent 33 g/dL (31-37) Red Cell Distribution Width 14.1 % (11.5-14.5) Platelet Count 409 x10^3/uL (140-400) Neutrophils (%) (Auto) 89 % (31-73) Lymphocytes (%) (Auto) 7 % (24-48) Monocytes (%) (Auto) 4 % (0-9) Eosinophils (%) (Auto) 0 % (0-3) Basophils (%) (Auto) 0 % (0-3) Neutrophils # (Auto) 15.8 x10^3/uL (1.8-7.7) Lymphocytes # (Auto) 1.2 x10^3/uL (1.0-4.8) Monocytes # (Auto) 0.8 x10^3/uL (0.0-1.1) Eosinophils # (Auto) 0.0 x10^3/uL (0.0-0.7) Basophils # (Auto) 0.1 x10^3/uL (0.0-0.2) Sodium Level 142 mmol/L (136-145) Potassium Level 4.1 mmol/L (3.5-5.1) Chloride Level 100 mmol/L (98-107) Carbon Dioxide Level 37 mmol/L (21-32) Anion Gap 5 (6-14) Blood Urea Nitrogen 28 mg/dL (8-26) Creatinine 1.0 mg/dL (0.7-1.3) Estimated GFR (Cockcroft-Gault) 75.5 Glucose Level 186 mg/dL (70-99) Calcium Level 7.7 mg/dL (8.5-10.1) O2 Saturation 94 % (92-99) Arterial Blood pH 7.43 (7.35-7.45) Arterial Blood pCO2 at Patient Temp 53 mmHg (35-46) Arterial Blood pO2 at Patient Temp 74 mmHg (65-108) Arterial Blood HCO3 34 mmol/L (21-28) Arterial Blood Base Excess 8 mmol/L (-3-3) FiO2 60 Test 08/29/21 21:53 08/30/21 04:15 08/30/21 08:00 08/30/21 13:40 Heparin Anti-Xa Act, Unfractionated 0.44 IU/mL (0.30-0.70) 0.30 IU/mL (0.30-0.70) O2 Saturation 93 % (92-99) Arterial Blood pH 7.51 (7.35-7.45) Arterial Blood pCO2 at Patient Temp 40 mmHg (35-46) Arterial Blood pO2 at Patient Temp 67 mmHg (65-108) Arterial Blood HCO3 32 mmol/L (21-28) Arterial Blood Base Excess 8 mmol/L (-3-3) FiO2 50/ac 30 400 50% +6 Activated Clotting Time 216 sec (92-181) Laboratory Tests Test 08/30/21 04:15 08/30/21 08:00 08/30/21 13:40 Heparin Anti-Xa Act, Unfractionated 0.30 IU/mL (0.30-0.70) O2 Saturation 93 % (92-99) Arterial Blood pH 7.51 (7.35-7.45) Arterial Blood pCO2 at Patient Temp 40 mmHg (35-46) Arterial Blood pO2 at Patient Temp 67 mmHg (65-108) Arterial Blood HCO3 32 mmol/L (21-28) Arterial Blood Base Excess 8 mmol/L (-3-3) FiO2 50/ac 30 400 50% +6 Activated Clotting Time 216 sec (92-181) Microbiology 08/24/21 Blood Culture - Final, Complete NO GROWTH AFTER 5 DAYS 08/23/21 Respiratory Culture Gram Stain - Final, Complete 08/23/21 Respiratory Culture - Final, Complete Medications Current Medications Dexamethasone Sodium Phosphate (Decadron) 6 mg DAILY IVP Last administered on 08/10/21at 08:29; Start 08/01/21 at 09:00; Stop 08/10/21 at 09:01; Status DC Heparin Sodium (Porcine) (Heparin Sodium) 5,000 unit Q8HRS SQ Last administered on 08/20/21at 05:41; Start 07/31/21 at 14:00; Stop 08/20/21 at 08:37; Status DC Famotidine (Pepcid Vial) 20 mg BID IVP Last administered on 08/30/21at 08:13; Start 07/31/21 at 14:00 Fentanyl Citrate 30 ml @ 2.5 mls/hr CONT PRN IV SEE PROTOCOL Last administered on 07/31/21at 12:49; Start 07/31/21 at 12:15; Stop 07/31/21 at 16:19; Status DC Midazolam HCl 100 ml @ 1 mls/hr CONT PRN IV SEE PROTOCOL Last administered on 08/30/21at 18:22; Start 07/31/21 at 12:15 Propofol 100 ml @ 3.45 mls/hr CONT PRN IV PER PROTOCOL Last administered on 08/30/21at 18:23; Start 07/31/21 at 12:15 Vecuronium Adams (Norcuron Bolus) 6 mg PRN 1X PRN IV VENT INDUCTION; Start 07/31/21 at 12:15; Stop 08/01/21 at 12:14; Status DC Glycerin/ Hypromellose/ Polyethylene (Artificial Tears) 1 drop PRN Q1HR PRN OU DRY EYE; Start 07/31/21 at 12:15 Dexmedetomidine HCl 400 mcg/ Sodium Chloride 100 ml @ 0 mls/hr CONT PRN IV PER PROTOCOL Last administered on 08/17/21at 12:55; Start 07/31/21 at 12:15 Midazolam HCl (Versed) 5 mg PRN 1X PRN IVP VENT INDUCTION; Start 07/31/21 at 12:15; Stop 08/01/21 at 12:14; Status DC Sodium Chloride 500 ml @ 500 mls/hr 1X PRN PRN IV SEE COMMENTS; Start 07/31/21 at 12:15 Atropine Sulfate (ATROPINE 0.5mg SYRINGE) 0.5 mg PRN Q5MIN PRN IV SEE COMMENTS; Start 07/31/21 at 12:15 Famotidine (Pepcid Vial) 20 mg BID IVP ; Start 07/31/21 at 21:00; Status UNV Piperacillin Sod/ Tazobactam Sod (Zosyn Per Pharmacy) 1 each PRN DAILY PRN MC SEE COMMENTS; Start 07/31/21 at 15:15; Stop 08/08/21 at 12:29; Status DC Piperacillin Sod/ Tazobactam Sod 3.375 gm/Sodium Chloride 50 ml @ 100 mls/hr Q6HRS IV Last administered on 08/07/21at 11:20; Start 07/31/21 at 18:00; Stop 08/07/21 at 17:59; Status DC Fentanyl Citrate 55 ml @ 1 mls/hr CONT PRN IV SEE PROTOCOL Last administered on 08/30/21at 20:32; Start 07/31/21 at 15:45 Insulin Human Lispro (HumaLOG) 0-7 UNITS Q6HRS SQ ; Start 08/02/21 at 06:00; Stop 08/07/21 at 08:09; Status DC Dextrose (Dextrose 50%-Water Syringe) 12.5 gm PRN Q15MIN PRN IV SEE COMMENTS; Start 08/01/21 at 23:00 Vecuronium Adams (Norcuron Bolus) 6 mg PRN Q6HRS PRN IV VENTILATOR COMPLIANCE Last administered on 08/28/21at 02:57; Start 08/06/21 at 13:45 Vecuronium Adams (Norcuron Bolus) 10 mg STK-MED ONCE IV ; Start 08/06/21 at 13:34; Stop 08/07/21 at 13:38; Status DC Sterile Water (WATER for RESP) 1,000 ml CONT PRN INH VIA VAPOTHERM DEVICE; Start 08/12/21 at 09:45; Status Cancel Dexamethasone Sodium Phosphate (Decadron) 6 mg DAILY IVP ; Start 08/17/21 at 09:00; Stop 08/16/21 at 13:31; Status DC Dexamethasone Sodium Phosphate (Decadron) 10 mg 1X ONCE IV ; Start 08/16/21 at 12:30; Stop 08/16/21 at 13:31; Status DC Acetaminophen (Tylenol) 650 mg PRN Q6HRS PRN PEG MILD PAIN / TEMP > 100.3'F Last administered on 08/20/21at 03:50; Start 08/17/21 at 00:15 Heparin Sodium (Porcine) (Heparin Sodium) 5,000 unit Q8HRS SQ Last administered on 08/23/21at 05:39; Start 08/21/21 at 14:00; Stop 08/23/21 at 18:33; Status DC Fentanyl Citrate (Fentanyl 2ml Vial) 25 mcg PRN Q5MIN PRN IVP MILD PAIN 1-3; Start 08/21/21 at 06:00; Stop 08/22/21 at 05:59; Status DC Fentanyl Citrate (Fentanyl 2ml Vial) 50 mcg PRN Q5MIN PRN IVP MODERATE PAIN 4- 6; Start 08/21/21 at 06:00; Stop 08/22/21 at 05:59; Status DC Morphine Sulfate (Morphine Sulfate) 1 mg PRN Q10MIN PRN IVP SEVERE PAIN 7-10; Start 08/21/21 at 06:00; Stop 08/22/21 at 05:59; Status DC Ringer's Solution 1,000 ml @ 30 mls/hr Q24H IV ; Start 08/21/21 at 06:00; Stop 08/21/21 at 17:59; Status DC Hydromorphone HCl (Dilaudid) 0.5 mg PRN Q10MIN PRN IVP SEVERE PAIN 7-10, 2nd CHOICE; Start 08/21/21 at 06:00; Stop 08/22/21 at 05:59; Status DC Prochlorperazine Edisylate (Compazine) 5 mg PACU PRN PRN IVP NAUSEA, MRX1; Start 08/21/21 at 06:00; Stop 08/22/21 at 05:59; Status DC Haloperidol Lactate (Haldol Inj) 5 mg PRN Q8HRS PRN IVP AGITATION; Start 08/22/21 at 10:45; Stop 08/22/21 at 10:45; Status DC Haloperidol Lactate (Haldol Inj) 5 mg Q8HRS IVP Last administered on 08/23/21at 05:38; Start 08/22/21 at 11:00; Stop 08/24/21 at 13:52; Status DC Acetaminophen (Tylenol Supp) 650 mg Q4H ONCE VT Last administered on 08/22/21at 11:45; Start 08/22/21 at 11:30; Stop 08/22/21 at 11:31; Status DC Vancomycin HCl (Vanco Per Pharmacy) 1 each PRN DAILY PRN MC SEE COMMENTS Last administered on 08/23/21at 12:21; Start 08/22/21 at 11:30; Stop 08/24/21 at 09:14; Status DC Piperacillin Sod/ Tazobactam Sod (Zosyn Per Pharmacy) 1 each PRN DAILY PRN MC SEE COMMENTS; Start 08/22/21 at 11:30 Piperacillin Sod/ Tazobactam Sod 4.5 gm/Dextrose 100 ml @ 200 mls/hr Q6HRS IV Last administered on 08/30/21at 15:26; Start 08/22/21 at 12:00 Vancomycin HCl 2 gm/Sodium Chloride 500 ml @ 250 mls/hr 1X ONCE IV Last administered on 08/22/21at 12:34; Start 08/22/21 at 13:00; Stop 08/22/21 at 14:59; Status DC Acetaminophen (Tylenol Supp) 650 mg PRN Q4HRS PRN VT MILD PAIN / TEMP > 100.3'F Last administered on 08/22/21at 23:32; Start 08/22/21 at 11:45 Dextrose/Lactated Ringer's 1,000 ml @ 80 mls/hr [id number] IV Last administered on 08/30/21at 08:13; Start 08/22/21 at 12:45 Vancomycin HCl 1 gm/Sodium Chloride 250 ml @ 250 mls/hr Q8H IV Last administered on 08/24/21at 04:00; Start 08/22/21 at 20:00; Stop 08/24/21 at 09:14; Status DC Vancomycin HCl (Vancomycin Trough Level) 1 each 1X ONCE MC ; Start 08/23/21 at 11:30; Stop 08/24/21 at 09:14; Status DC Etomidate (Amidate) 20 mg STK-MED ONCE IV ; Start 08/23/21 at 11:25; Stop 08/23/21 at 11:25; Status DC Succinylcholine Chloride (Anectine) 200 mg STK-MED ONCE .ROUTE ; Start 08/23/21 at 11:25; Stop 08/23/21 at 11:26; Status DC Etomidate (Amidate) 20 mg 1X ONCE IV Last administered on 08/23/21at 12:21; Start 08/23/21 at 12:15; Stop 08/23/21 at 12:16; Status DC Succinylcholine Chloride (Anectine) 100 mg 1X ONCE IV Last administered on 08/23/21at 12:21; Start 08/23/21 at 12:15; Stop 08/23/21 at 12:16; Status DC Methylprednisolone Sodium Succinate (SOLU-Medrol 125MG VIAL) 125 mg Q8HRS IV Last administered on 08/30/21at 15:28; Start 08/23/21 at 14:00 Furosemide (Lasix) 40 mg 1X ONCE IVP Last administered on 08/23/21at 13:19; Start 08/23/21 at 12:45; Stop 08/23/21 at 12:56; Status DC Furosemide (Lasix) 40 mg DAILY IVP Last administered on 08/24/21at 07:24; Start 08/24/21 at 09:00; Stop 08/24/21 at 11:24; Status DC Digoxin (Lanoxin) 500 mcg 1X ONCE IV Last administered on 08/23/21at 15:16; Start 08/23/21 at 15:30; Stop 08/23/21 at 15:31; Status DC Amiodarone HCl 150 mg/Dextrose 103 ml @ 600 mls/hr 1X ONCE IV ; Start 08/23/21 at 16:00; Stop 08/23/21 at 16:10; Status DC Amiodarone HCl 450 mg/Dextrose 259 ml @ 33 mls/hr CONT PRN IV SEE I/O RECORD Last administered on 08/24/21at 01:22; Start 08/23/21 at 16:00; Stop 08/24/21 at 15:59; Status DC Iodixanol (Visipaque 320) 100 ml STK-MED ONCE .ROUTE ; Start 08/23/21 at 16:00; Stop 08/23/21 at 16:00; Status DC Lidocaine HCl (Lidocaine 1% 20ml Vial) 20 ml STK-MED ONCE .ROUTE ; Start 08/23/21 at 16:00; Stop 08/23/21 at 16:00; Status DC Heparin Sodium/ Sodium Chloride 1,500 ml @ As Directed STK-MED ONCE .ROUTE ; Start 08/23/21 at 16:00; Stop 08/23/21 at 16:00; Status DC Amiodarone HCl (Cordarone) 150 mg STK-MED ONCE .ROUTE ; Start 08/23/21 at 16:01; Stop 08/23/21 at 16:01; Status DC Amiodarone HCl (Cordarone) 150 mg 1X ONCE IVP Last administered on 08/23/21at 16:23; Start 08/23/21 at 16:15; Stop 08/23/21 at 16:16; Status DC Aspirin (Aspirin Chewable) 324 mg 1X ONCE PO Last administered on 08/23/21at 16:07; Start 08/23/21 at 16:15; Stop 08/23/21 at 16:16; Status DC Aspirin (Aspirin Chewable) 81 mg STK-MED ONCE .ROUTE ; Start 08/23/21 at 16:06; Stop 08/23/21 at 16:06; Status DC Heparin Sodium (Porcine) (Heparin Sodium) 10,000 unit STK-MED ONCE .ROUTE ; Start 08/23/21 at 16:23; Stop 08/23/21 at 16:24; Status DC Verapamil HCl (Verapamil) 5 mg STK-MED ONCE .ROUTE ; Start 08/23/21 at 16:23; Stop 08/23/21 at 16:24; Status DC Nitroglycerin (Nitroglycerin) 200 mcg STK-MED ONCE .ROUTE ; Start 08/23/21 at 16:23; Stop 08/23/21 at 16:24; Status DC Aspirin (Aspirin Chewable) 81 mg DAILYWBKFT PO Last administered on 08/30/21at 08:11; Start 08/24/21 at 08:00 Phenylephrine HCl 50 mg/Sodium Chloride 255 ml @ 14.351 mls/ hr CONT PRN IV PER PROTOCOL Last administered on 08/23/21at 16:42; Start 08/23/21 at 16:45 Phenylephrine HCl (PHENYLEPHRINE in 0.9% NACL PF) 1 mg STK-MED ONCE IV ; Start 08/23/21 at 16:41; Stop 08/23/21 at 16:41; Status DC Heparin Sodium (Porcine) (Heparin Sodium) 10,000 unit STK-MED ONCE .ROUTE ; Start 08/23/21 at 16:47; Stop 08/23/21 at 16:47; Status DC Norepinephrine Bitartrate 8 mg/ Dextrose 258 ml @ 18.15 mls/ hr CONT PRN IV PER PROTOCOL Last administered on 08/24/21at 02:08; Start 08/23/21 at 17:00 Iodixanol (Visipaque 320) 100 ml STK-MED ONCE .ROUTE ; Start 08/23/21 at 17:07; Stop 08/23/21 at 17:07; Status DC Nitroglycerin (Nitroglycerin) 200 mcg 1X ONCE IART Last administered on 08/23/21at 16:35; Start 08/23/21 at 17:15; Stop 08/23/21 at 17:16; Status DC Verapamil HCl (Verapamil) 2.5 mg 1X ONCE IART Last administered on 08/23/21at 16:35; Start 08/23/21 at 17:15; Stop 08/23/21 at 17:16; Status DC Heparin Sodium (Porcine) (Heparin Sodium) 2,500 unit 1X ONCE IART Last administered on 08/23/21at 16:42; Start 08/23/21 at 17:15; Stop 08/23/21 at 17:16; Status DC Heparin Sodium/ Sodium Chloride (HEPARIN for ARTERIAL LINE FLUSH) 1,000 unit 1X ONCE IART Last administered on 08/23/21at 17:15; Start 08/23/21 at 17:15; Stop 08/23/21 at 17:16; Status DC Heparin Sodium/ Sodium Chloride (HEPARIN for ARTERIAL LINE FLUSH) 4,000 unit 1X ONCE IV Last administered on 08/23/21at 17:15; Start 08/23/21 at 17:15; Stop 08/23/21 at 17:16; Status DC Iodixanol (Visipaque 320) 100 ml 1X ONCE IART Last administered on 08/23/21at 17:15; Start 08/23/21 at 17:15; Stop 08/23/21 at 17:16; Status DC Heparin Sodium (Porcine) (Heparin Sodium) 5,000 unit 1X ONCE INT CAT Last administered on 08/23/21at 16:52; Start 08/23/21 at 17:15; Stop 08/23/21 at 17:16; Status DC Tirofiban/Sodium Chloride 250 ml @ As Directed STK-MED ONCE IV ; Start 08/23/21 at 17:18; Stop 08/23/21 at 17:18; Status DC Tirofiban/Sodium Chloride 250 ml @ 16.884 mls/ hr CONT PRN IV PER PROTOCOL Last administered on 08/23/21at 17:16; Start 08/23/21 at 17:45; Stop 08/24/21 at 11:44; Status DC Heparin Sodium (Porcine) (Heparin Sodium) 5,000 unit 1X ONCE IV Last administered on 08/23/21at 17:09; Start 08/23/21 at 18:30; Stop 08/23/21 at 18:31; Status DC Levetiracetam 100 ml @ 400 mls/hr Q12HR IV Last administered on 08/26/21at 11:29; Start 08/23/21 at 21:00; Stop 08/26/21 at 21:06; Status DC Heparin Sodium/ Dextrose 250 ml @ 11.256 mls/ hr CONT PRN IV PER PROTOCOL Last administered on 08/30/21at 14:30; Start 08/23/21 at 18:45 Heparin Sodium (Porcine) (Heparin Sodium) 2,350 unit PRN Q6HRS PRN IV FOR UFH LEVEL LESS THAN 0.2 Last administered on 08/27/21at 01:28; Start 08/23/21 at 18 :45 Clopidogrel Bisulfate (Plavix) 600 mg 1X ONCE PO Last administered on 08/23/21at 22:06; Start 08/23/21 at 22:30; Stop 08/23/21 at 22:31; Status DC Potassium Chloride/Water 100 ml @ 100 mls/hr Q1H IV Last administered on 08/24/21at 02:00; Start 08/23/21 at 22:00; Stop 08/24/21 at 01:59; Status DC Daptomycin 520 mg/ Sodium Chloride 50 ml @ 100 mls/hr Q24H IV Last administer ed on 08/26/21at 12:57; Start 08/24/21 at 11:00; Stop 08/27/21 at 08:17; Status DC Linezolid (Zyvox) 600 mg BID PO Last administered on 08/30/21at 08:12; Start 08/24/21 at 10:00 Amiodarone HCl (Cordarone) 200 mg DAILY PO Last administered on 08/30/21at 08: 12; Start 08/24/21 at 12:00 Furosemide (Lasix) 40 mg DAILY IVP Last administered on 08/30/21at 08:13; Start 08/25/21 at 09:00 Atorvastatin Calcium (Lipitor) 20 mg QHS PO Last administered on 08/26/21at 22:04; Start 08/24/21 at 21:00; Stop 08/27/21 at 13:59; Status DC Clopidogrel Bisulfate (Plavix) 75 mg 1X ONCE PO ; Start 08/24/21 at 11:30; Stop 08/24/21 at 11:31; Status UNV Clopidogrel Bisulfate (Plavix) 75 mg DAILYWBKFT PO Last administered on 08/30/21at 08:11; Start 08/24/21 at 12:00 Epinephrine HCl (EPINEPHrine SYRINGE) 1 mg STK-MED ONCE .ROUTE ; Start 08/23/21 at 17:00; Stop 08/24/21 at 12:21; Status DC Sodium Bicarbonate (Sodium Bicarb Adult 8.4% Syr) 50 meq STK-MED ONCE .ROUTE ; Start 08/23/21 at 17:00; Stop 08/24/21 at 12:21; Status DC Potassium Chloride/Water 100 ml @ 100 mls/hr Q1H IV Last administered on 08/25/21at 13:32; Start 08/25/21 at 10:00; Stop 08/25/21 at 12:59; Status DC Potassium Chloride/Water 100 ml @ 100 mls/hr Q1H IV Last administered on 08/26/21at 10:05; Start 08/26/21 at 09:00; Stop 08/26/21 at 11:59; Status DC Potassium Bicarbonate (Potassium Effervescent Tablet) 60 meq 1X ONCE PO Last administered on 08/26/21at 13:51; Start 08/26/21 at 10:30; Stop 08/26/21 at 10:31; Status DC Levetiracetam 500 mg/Dextrose 105 ml @ 100 mls/hr Q12HR IV Last administered on 08/28/21at 09:00; Start 08/26/21 at 21:30; Stop 08/28/21 at 12:27; Status DC Potassium Bicarbonate (Potassium Effervescent Tablet) 20 meq TID PO Last administered on 08/30/21at 15:28; Start 08/27/21 at 09:30 Losartan Potassium (Cozaar) 25 mg DAILY PO Last administered on 08/30/21at 08:11; Start 08/27/21 at 15:00 Spironolactone (Aldactone) 25 mg DAILY PO Last administered on 08/30/21at 08:12; Start 08/27/21 at 15:00 Atorvastatin Calcium (Lipitor) 40 mg QHS PO Last administered on 08/29/21at 21:33; Start 08/27/21 at 21:00 Atropine Sulfate (ATROPINE 1mg SYRINGE) 1 mg STK-MED ONCE .ROUTE ; Start 08/14 at 12:32; Stop 08/27/21 at 14:26; Status DC Levetiracetam 100 ml @ 100 mls/hr Q12HR IV ; Start 08/28/21 at 21:00; Status Cancel Levetiracetam (Keppra Oral Soln) 500 mg BID PEG Last administered on 08/30/21at 08:12; Start 08/28/21 at 21:00 Heparin Sodium (Porcine) (Heparin Sodium) 10,000 unit STK-MED ONCE .ROUTE ; Start 08/30/21 at 12:56; Stop 08/30/21 at 12:56; Status DC Verapamil HCl (Verapamil) 5 mg STK-MED ONCE .ROUTE ; Start 08/30/21 at 12:56; Stop 08/30/21 at 12:56; Status DC Nitroglycerin (Nitroglycerin) 200 mcg STK-MED ONCE .ROUTE ; Start 08/30/21 at 12:56; Stop 08/30/21 at 12:56; Status DC Iodixanol (Visipaque 320) 100 ml STK-MED ONCE .ROUTE ; Start 08/30/21 at 12:57; Stop 08/30/21 at 12:57; Status DC Lidocaine HCl (Xylocaine-Mpf 1% 2ml Vial) 2 ml STK-MED ONCE .ROUTE ; Start 08/30/21 at 12:57; Stop 08/30/21 at 12:57; Status DC Heparin Sodium/ Sodium Chloride 1,000 ml @ As Directed STK-MED ONCE .ROUTE ; Start 08/30/21 at 12:57; Stop 08/30/21 at 12:57; Status DC Nitroglycerin (Nitroglycerin) 200 mcg 1X ONCE IART Last administered on 08/30/21at 13:34; Start 08/30/21 at 13:00; Stop 08/30/21 at 13:04; Status DC Verapamil HCl (Verapamil) 2.5 mg 1X ONCE IART Last administered on 08/30/21at 13:34; Start 08/30/21 at 13:00; Stop 08/30/21 at 13:04; Status DC Heparin Sodium (Porcine) (Heparin Sodium) 2,500 unit 1X ONCE IART Last administered on 08/30/21at 13:34; Start 08/30/21 at 13:00; Stop 08/30/21 at 13:04; Status DC Heparin Sodium/ Sodium Chloride (HEPARIN for ARTERIAL LINE FLUSH) 1,000 unit 1X ONCE IART Last administered on 08/30/21at 13:00; Start 08/30/21 at 13:00; Stop 08/30/21 at 13:04; Status DC Heparin Sodium/ Sodium Chloride (HEPARIN for ARTERIAL LINE FLUSH) 1,000 unit 1X ONCE IART Last administered on 08/30/21at 13:00; Start 08/30/21 at 13:00; Stop 08/30/21 at 13:04; Status DC Iodixanol (Visipaque 320) 100 ml 1X ONCE IART Last administered on 08/30/21at 13:55; Start 08/30/21 at 13:00; Stop 08/30/21 at 13:04; Status DC Lidocaine HCl (Xylocaine-Mpf 1% 2ml Vial) 2 ml 1X ONCE INJ Last administered on 08/30/21at 13:33; Start 08/30/21 at 13:00; Stop 08/30/21 at 13:04; Status DC Info (CONTRAST GIVEN -- Rx MONITORING) 1 each PRN DAILY PRN MC SEE COMMENTS; Start 08/30/21 at 13:15; Stop 09/01/21 at 13:14 Vitals/I & O Vital Sign - Last 24 Hours 08/29/21 08/29/21 08/29/21 08/30/21 22:00 23:00 23:00 00:00 Pulse 60 66 76 Resp 30 30 30 B/P (MAP) 111/78 153/91 149/95 Pulse Ox 98 100 99 96 O2 Delivery Ventilator Ventilator Ventilator Ventilator 08/30/21 08/30/21 08/30/21 08/30/21 00:00 01:00 02:00 02:00 Temp 97.5 97.5 Pulse 68 68 Resp 30 30 B/P (MAP) 122/76 95/64 Pulse Ox 97 100 98 O2 Delivery Ventilator Ventilator Ventilator 08/30/21 08/30/21 08/30/21 08/30/21 03:00 04:00 04:58 05:00 Temp 97.5 97.5 Pulse 62 60 58 Resp 30 30 30 B/P (MAP) 92/63 107/74 118/81 Pulse Ox 99 99 100 100 O2 Delivery Ventilator Ventilator Ventilator Ventilator 08/30/21 08/30/21 08/30/21 08/30/21 06:00 07:00 08:00 08:00 Temp 98.2 98.2 Pulse 58 60 60 Resp 30 30 30 B/P (MAP) 117/79 141/78 139/84 Pulse Ox 99 98 96 O2 Delivery Ventilator Ventilator Ventilator Mechanical Ventilator 08/30/21 08/30/21 08/30/21 08/30/21 08:03 08:11 08:12 09:00 Pulse 57 57 61 Resp 30 B/P (MAP) 139/84 139/84 109/75 Pulse Ox 97 98 O2 Delivery Ventilator Ventilator 08/30/21 08/30/21 08/30/21 08/30/21 10:00 11:00 11:03 12:00 Pulse 65 75 Resp 30 30 B/P (MAP) 109/76 144/95 Pulse Ox 100 97 99 O2 Delivery Ventilator Ventilator Ventilator Mechanical Ventilator 08/30/21 08/30/21 08/30/21 08/30/21 12:00 13:00 13:34 14:00 Temp 98.4 98.4 Pulse 60 75 62 Resp B/P (MAP) 144/94 93/67 140/88 Pulse Ox 96 97 O2 Delivery Ventilator Ventilator Ventilator 08/30/21 08/30/21 08/30/21 08/30/21 14:04 14:30 14:45 14:59 Pulse 65 67 62 Resp B/P (MAP) 140/88 100/72 Pulse Ox 96 100 98 98 O2 Delivery Ventilator Ventilator Ventilator Ventilator 08/30/21 08/30/21 08/30/21 08/30/21 15:00 15:15 15:30 15:45 Pulse 64 65 62 61 Resp 26 B/P (MAP) 95/66 96/68 96/69 103/71 Pulse Ox 100 100 100 100 O2 Delivery Ventilator Ventilator Ventilator Ventilator 08/30/21 08/30/21 08/30/21 08/30/21 16:00 16:30 17:00 17:30 Temp 98.0 98.0 Pulse 57 58 58 58 Resp 26 B/P (MAP) 114/79 102/71 118/81 130/86 Pulse Ox 100 100 100 100 O2 Delivery Ventilator Ventilator Ventilator Ventilator 08/30/21 18:00 Pulse 58 Resp 26 B/P (MAP) 133/88 Pulse Ox 100 O2 Delivery Ventilator Intake and Output 08/29/21 08/29/21 08/30/21 15:00 23:00 07:00 Intake Total 925 ml 1383.6 ml Output Total 1400 ml 1240 ml 790 ml Balance -1400 ml -315 ml 593.6 ml Justicifation of Admission Dx: Justifications for Admission: Justification of Admission Dx: N/A KEKE ARREAGA MD Aug 30, 2021 22:01
[2021-08-30] MEDS: ATORVASTATIN CALCIUM 40 MG TABLET. PO SCH (22:19)
[2021-08-31] VITALS (24 sets, daily range): BP systolic 76–152; BP diastolic 52–93
[2021-08-31] MEDS: PIPERACILLIN/TAZOBACTAM 4.5 GM in IV DEXTROSE 5% 100ML 100 ML IV SCH ×5 (00:47→23:23)
[2021-08-31] MEDS: PROPOFOL 100 ML IV PRN ×4 (00:50→21:14)
[2021-08-31 03:25] LABS: HEMATOCRIT 35.8 % (39.0-53.0); HEMOGLOBIN 11.4 g/dL (13.0-17.5); RED BLOOD COUNT 3.99 x10^6/uL (4.30-5.70); RED CELL DISTRIBUTION WIDTH 14.6 % (11.5-14.5); WHITE BLOOD COUNT 14.5 x10^3/uL (4.0-11.0)
[2021-08-31 04:55] LABS: ALBUMIN 1.9 g/dL (3.4-5.0); ALBUMIN/GLOBULIN RATIO 0.6 (1.0-1.7); CALCIUM 7.5 mg/dL (8.5-10.1); CREATININE 0.9 mg/dL (0.7-1.3); GFR 85.2; POTASSIUM 4.3 mmol/L (3.5-5.1); TOTAL BILIRUBIN 0.5 mg/dL (0.2-1.0); TOTAL PROTEIN 5.1 g/dL (6.4-8.2)
[2021-08-31] MEDS: methylPREDNISolone SOD SUCC PF 125 MG/2 ML VIAL. IV SCH ×3 (05:42→21:17)
--- NOTE | 2021-08-31 06:15 | RAD ---
XR CHEST 1V INDICATION: RF [id number] COMPARISON STUDY: 08/30/2021. FINDINGS: Life Support Devices: Stable endotracheal tube, enteric tube, right PICC. Lungs: Low lung volume. Stable diffuse bilateral opacities. Pleura: Stable small pleural effusion. Heart and Mediastinum: Stable cardiomediastinal silhouette and great vessels. Bones and Soft Tissues: Stable regional skeleton and soft tissues. IMPRESSION: 1. Stable diffuse bilateral opacities. 2. Stable small pleural effusions. 3. Stable life support devices. Electronically signed by: Yifan Samson MD (08/31/2021 6:13 AM) [facility]
[2021-08-31] MEDS: levETIRAcetam 500 MG/5 ML ORAL SOLUTION. PEG SCH ×2 (07:59→21:17)
[2021-08-31] MEDS: FAMOTIDINE 20 MG/2 ML VIAL IVP SCH ×2 (08:00→21:17)
[2021-08-31] MEDS: FUROSEMIDE 40 MG/4 ML VIAL. IVP SCH (08:00)
[2021-08-31] MEDS: MIDAZOLAM 100mg/100ml NS BAG 100 ML IV PRN ×2 (08:00→18:45)
[2021-08-31] MEDS: LINEZOLID 600 MG TABLET PO SCH ×2 (08:00→21:16)
[2021-08-31] MEDS: ASPIRIN CHEWABLE 81 MG TABLET. PO SCH (08:01)
[2021-08-31] MEDS: POTASSIUM BICARB 20 MEQ EFFERVESCENT TABLET. PO SCH ×3 (08:01→21:16)
[2021-08-31] MEDS: SPIRONOLACTONE 25 MG TABLET PO SCH (08:01)
[2021-08-31] MEDS: LOSARTAN POTASSIUM 25 MG TABLET. PO SCH (08:01)
[2021-08-31] MEDS: CLOPIDOGREL BISULFATE 75 MG TABLET PO SCH (08:01)
[2021-08-31] MEDS: IV DEXTROSE 5%-LACT RINGERS 1,000 ML IV SCH ×2 (08:02→21:16)
[2021-08-31] MEDS: AMIODARONE HCL 200 MG TABLET. PO SCH (08:02)
--- NOTE | 2021-08-31 08:25 | PDOC ---
Infectious Disease Note Subjective Subjective Patient intubated/sedated Does open eyes to verbal stimuli Discussed with ROLAND CERVANTES No nausea vomiting Vital Sign Vital Signs Vital Signs Date Time Temp Pulse Resp B/P (MAP) Pulse Ox O2 Delivery O2 Flow Rate FiO2 08/31/21 08:02 59 103/67 08/31/21 07:00 98 Ventilator 08/31/21 04:00 97.9 97.9 08/30/21 23:00 26 Physical Exam PHYSICAL EXAM GENERAL: Intubated and sedated, opens eyes to verbal stimuli HEENT: No conjunctival petechia. ETT, OGT tube present. NECK: Supple. LUNGS: Coarse breath sounds in the bases, otherwise clear. HEART: S1, S2, irregular. I could not appreciate any murmurs. ABDOMEN: Soft, nontender, nondistended. Bowel sounds present. GENITOURINARY: Berumen in place. EXTREMITIES: Present no cyanosis. Right groin catheter removed, right upper extremity PICC line placed on 08/23/2021. DERMATOLOGIC: Warm, dry, no generalized rash. NEUROLOGIC: Unable to assess. Labs Lab Laboratory Tests Test 08/30/21 13:40 08/30/21 22:00 08/31/21 03:15 Activated Clotting Time 216 sec (92-181) Heparin Anti-Xa Act, Unfractionated 0.60 IU/mL (0.30-0.70) 0.48 IU/mL (0.30-0.70) White Blood Count 14.5 x10^3/uL (4.0-11.0) Red Blood Count 3.99 x10^6/uL (4.30-5.70) Hemoglobin 11.4 g/dL (13.0-17.5) Hematocrit 35.8 % (39.0-53.0) Mean Corpuscular Volume 90 fL (79-100) Mean Corpuscular Hemoglobin 29 pg (25-35) Mean Corpuscular Hemoglobin Concent 32 g/dL (31-37) Red Cell Distribution Width 14.6 % (11.5-14.5) Platelet Count 390 x10^3/uL (140-400) Sodium Level 144 mmol/L (136-145) Potassium Level 4.3 mmol/L (3.5-5.1) Chloride Level 100 mmol/L (98-107) Carbon Dioxide Level 38 mmol/L (21-32) Anion Gap 6 (6-14) Blood Urea Nitrogen 26 mg/dL (8-26) Creatinine 0.9 mg/dL (0.7-1.3) Estimated GFR (Cockcroft-Gault) 85.2 BUN/Creatinine Ratio 29 (6-20) Glucose Level 164 mg/dL (70-99) Calcium Level 7.5 mg/dL (8.5-10.1) Total Bilirubin 0.5 mg/dL (0.2-1.0) Aspartate Amino Transf (AST/SGOT) 22 U/L (15-37) Alanine Aminotransferase (ALT/SGPT) 51 U/L (16-63) Alkaline Phosphatase 87 U/L (46-116) Total Protein 5.1 g/dL (6.4-8.2) Albumin 1.9 g/dL (3.4-5.0) Albumin/Globulin Ratio 0.6 (1.0-1.7) Micro Microbiology 08/24/21 Blood Culture - Preliminary, Resulted NO GROWTH AFTER 2 DAYS 08/23/21 Respiratory Culture Gram Stain - Final, Complete 08/23/21 Respiratory Culture - Final, Complete Objective Assessment Fever multifactorial s/p code ,possible aspiration pattern improved 1. Gram-positive bacteremia,MRSE 08/22/2021.Central line was pulled out 2. Acute hypoxic respiratory failure. 3. COVID-19 pneumonia. 4. Chronic obstructive pulmonary disease with possible underlying pulmonary fibrosis, aspiration pneumonia. 5. Status post code atrial fibrillation with rapid ventricular response, ventricular fibrillation, status post defibrillation, epinephrine, bicarbonate drip, status post cardiac catheterization. IABP placement. 6. Severe protein-calorie malnutrition. 7. Abnormal liver function tests, likely shock liver. 8. Anemia. 9. Encephalopathy likely anoxic 10.Electrolyte abn 11.Leucocytosis improving Plan Plan of Care cont Zyvox,Zosyn. CPK 376 ,repeat 107 monitor closely f/u Repeat blood cultures neg so far Follow up labs and cultures. Continue supportive care. Central lihe had been pulled out earlier during this hosp per staff PICC line was placed on 08/23/2021. If repeat blood cultures are positive, the patient will need PICC line removal. Cath today Discussed with RN. BERNARD LOWERY MD Aug 31, 2021 08:25
[2021-08-31 08:36] LABS: BASE EXCESS ABG 9 mmol/L (-3-3); HCO3 ABG 33 mmol/L (21-28); PCO2 ABG 47 mmHg (35-46); PO2 ABG 73 mmHg (65-108); SAT O2 ABG 94 % (92-99)
[2021-08-31 08:42] LABS: FIO2 ABG 50/VENT
--- NOTE | 2021-08-31 09:55 | PDOC ---
ISIS GARCIA SHOE STAMPER 08/31/21 0955: CARDIO Progress Notes Date and Time Date of Service 08/31/2021 Time of Evaluation 0930 Subjective Subjective: Other (intubated ) Vitals Vitals Vital Signs Date Time Temp Pulse Resp B/P (MAP) Pulse Ox O2 Delivery O2 Flow Rate FiO2 08/31/21 08:30 99 Ventilator 08/31/21 08:02 59 103/67 08/31/21 04:00 97.9 97.9 08/30/21 23:00 26 Weight Weight [ ] Input and Output Intake and Output Intake and Output 08/31/21 07:00 Intake Total 3710.0 ml Output Total 5010 ml Balance -1300.0 ml Intake Oral 49 ml IV Total 2531.0 ml Tube Feeding 1130 ml Other 0 ml Output Urine Total 5010 ml # Bowel Movements 1 Laboratory Labs Laboratory Tests Test 08/30/21 13:40 08/30/21 22:00 08/31/21 03:15 08/31/21 08:00 Activated Clotting Time 216 sec (92-181) Heparin Anti-Xa Act, Unfractionated 0.60 IU/mL (0.30-0.70) 0.48 IU/mL (0.30-0.70) White Blood Count 14.5 x10^3/uL (4.0-11.0) Red Blood Count 3.99 x10^6/uL (4.30-5.70) Hemoglobin 11.4 g/dL (13.0-17.5) Hematocrit 35.8 % (39.0-53.0) Mean Corpuscular Volume 90 fL (79-100) Mean Corpuscular Hemoglobin 29 pg (25-35) Mean Corpuscular Hemoglobin Concent 32 g/dL (31-37) Red Cell Distribution Width 14.6 % (11.5-14.5) Platelet Count 390 x10^3/uL (140-400) Sodium Level 144 mmol/L (136-145) Potassium Level 4.3 mmol/L (3.5-5.1) Chloride Level 100 mmol/L (98-107) Carbon Dioxide Level 38 mmol/L (21-32) Anion Gap 6 (6-14) Blood Urea Nitrogen 26 mg/dL (8-26) Creatinine 0.9 mg/dL (0.7-1.3) Estimated GFR (Cockcroft-Gault) 85.2 BUN/Creatinine Ratio 29 (6-20) Glucose Level 164 mg/dL (70-99) Calcium Level 7.5 mg/dL (8.5-10.1) Total Bilirubin 0.5 mg/dL (0.2-1.0) Aspartate Amino Transf (AST/SGOT) 22 U/L (15-37) Alanine Aminotransferase (ALT/SGPT) 51 U/L (16-63) Alkaline Phosphatase 87 U/L (46-116) Total Protein 5.1 g/dL (6.4-8.2) Albumin 1.9 g/dL (3.4-5.0) Albumin/Globulin Ratio 0.6 (1.0-1.7) O2 Saturation 94 % (92-99) Arterial Blood pH 7.47 (7.35-7.45) Arterial Blood pCO2 at Patient Temp 47 mmHg (35-46) Arterial Blood pO2 at Patient Temp 73 mmHg (65-108) Arterial Blood HCO3 33 mmol/L (21-28) Arterial Blood Base Excess 9 mmol/L (-3-3) FiO2 50/vent Microbiology Micro Microbiology 08/24/21 Blood Culture - Final, Complete NO GROWTH AFTER 5 DAYS 08/23/21 Respiratory Culture Gram Stain - Final, Complete 08/23/21 Respiratory Culture - Final, Complete Physical Exam HEENT: Other (supple ) Chest: Symmetric LUNGS: Other (MV) Heart: RRR (SR no ectopies) Abdomen: Other (soft ) Extremities: No Edema, Other (no edema. Eschar to left foot, second toe) Neurology: other (sedated ) Assessment Assessment 1. S/P code blue: cardiac arrest likely from hypoxia associated covid-19 PNA/ARDS s/p reintubation. Could not completely rule out PE. Noted with VT shock x1. Strip reviewed noted with torsades. approximately <3 min to ROSC 2. Acute on chronic respiratory failure with ARDS/PNA/COPD 3. AECOPD 4. Covid-19 Pneumonia: noted+ 07/29/2021 5. Hypernatremia: was hyponatremic upon admission. Improved 6. AFIB RVR: converted to SR overnight. Presently SR/SB lowest 40s 7. Inferior STEMI: EKG obtained upon cardiac evaluation. No prior hx of CAD 8. Shock: multifactorial. Gram-positive bacteremia, 2/4 bottles 9. CAD: LHC revealed thrombotic distal right posterior descending artery and right posterior lateral artery occlusion. There was moderate 50% proximal and 90% mid stenosis appeared to have significant thrombotic burden with ectasia and dilation of the coronary artery 10. ICM: EF at 35-40% 11. Bacteremia: Gram-positive bacteremia, 2/4 bottles, 08/22/2021. ID following 12. Shock liver 13. Encephalopathy with possible seizure 14. Acute systolic CHF: compensated 15. Black distal phalanx to left 2nd toe: possibly r/t to covid-19. no signif icnat PAD per duplex Recommendations 1. LHC yesterday Recanalized right coronary artery with brisk blood flow. Residual proximal 70% RCA stenosis with significant ectasia of the RCA measuring up to 6.25 mm. After patient is extubated and stabilized depending on symptoms we will consider high risk PCI with specialized MegaTron stent given the large vessel size 2. Off pressors continue DAPT and heparin drip 3. Continue lasix therapy 4. Continue amiodarone 5. Will optimize meds per HF GDMT as tolerated 6. Secondary prevention measures Justicifation of Admission Dx: Justifications for Admission: Justification of Admission Dx: N/A TEDDY ANGLIN MD 09/01/21 1225: CARDIO Progress Notes Plan Plan Late entry for 08/31/21 Pt. seen and examined. Agree with above SENIOR RESEARCH ASSOCIATE note. Supportive care. ISIS GARCIA APRN Aug 31, 2021 09:55 TEDDY ANGLIN MD Sep 01, 2021 12:25
--- NOTE | 2021-08-31 10:10 | PN ---
DATE: 08/31/2021 SUBJECTIVE: The patient is resting, slightly propped up in bed, in no apparent respiratory distress. He continued to be heavily sedated on propofol, Levophed and fentanyl as well as Versed. He is actually off vasopressors. He continues to be on a heparin drip. He apparently went to the engineering laboratory technician yesterday and apparently his catheterization showed a recanalized right coronary artery with brisk blood flow residual proximal 70% right coronary artery stenosis with significant ectasia of the right coronary artery measuring up to 6.25 mm. Normal left ventricular filling pressure. The plan is to continue with aspirin, Plavix and heparin drip. Continue with plans for extubation, after the patient was extubated and stabilized. Depending on symptoms, consideration will be made for high risk PCI with specialized Megatron stent given the large vessel size. PHYSICAL EXAMINATION: GENERAL: When I saw him this morning, he looked pale, not jaundiced or cyanosed or thyromegaly. No jugular venous distention. No limb edema. VITAL SIGNS: His heart rate was 59, blood pressure is 103/67, his temperature was 97.9, respiratory rate was 26 and oxygen saturation was 99% on FiO2 of 50%. HEAD, EYES, EARS, NOSE, AND THROAT: Normocephalic, atraumatic. NECK: Supple. HEART: Showed normal first and second heart sounds. No gallop, rub or murmur. CHEST: Clear to auscultation, no crepitation or rhonchi anteriorly. ABDOMEN: Distended, soft, nontender. NEUROLOGIC: He was heavily sedated. His intake over the last 24 hours was 3400, output was 3430. LABORATORY DATA: As of this morning showed a white cell count of 14,500, hemoglobin 11, hematocrit 36, MCV 90 and platelet count 390,000. His serum sodium was 144, potassium 4.3, chloride 100, bicarbonate 38, anion gap of 6, BUN 26, creatinine was 0.9. Estimated GFR was 85, blood sugar was 164, calcium was 7.5. Total bilirubin, AST, ALT, alkaline phosphatase were normal. Total protein 5.1, albumin was 1.9. His blood gas this morning showed a pH of 7.47, pCO2 of 47, pO2 of 73, bicarbonate 33 and oxygen saturation was 94% on FiO2 of 50%. ASSESSMENT AND PLAN: 1. Status post cardiac arrest, likely due to hypoxia associated with COVID-19 and acute myocardial infarction. Apparently, the patient went into ventricular tachycardia, shocked and also went into ventricular fibrillation, treated with epinephrine with return of spontaneous circulation. 2. Acute on chronic hypoxic respiratory failure. 3. Acute respiratory distress syndrome. 4. Acute exacerbation of chronic obstructive pulmonary disease. 5. COVID-19 pneumonia. 6. Atrial fibrillation with rapid ventricular response, rate controlled, currently on heparin drip. 7. Inferior ST segment elevation myocardial infarction. 8. Shock, multifactorial including both cardiogenic and septic shock. 9. The patient underwent cardiac catheterization second time which showed that there is recanalization of the right coronary artery for which he was started on aspirin, Plavix and continue with heparin drip with a plan to do PCI, which is a high risk procedure apparently because of the large size of the vessel after he gets extubated and becomes stable. PRUDENCIO DR: Vannessa TID: [id number]
--- NOTE | 2021-08-31 10:15 | PDOC ---
PULMONARY PROGRESS NOTES DATE: 08/31/21 TIME: 10:15 Subjective Patient went to cardiac catheterization yesterday. No PCI 50 FiO2 and 6 of PEEP Off of pressors Vitals Vital Signs Date Time Temp Pulse Resp B/P (MAP) Pulse Ox O2 Delivery O2 Flow Rate FiO2 08/31/21 08:30 99 Ventilator 08/31/21 08:02 59 103/67 08/31/21 04:00 97.9 97.9 08/30/21 23:00 26 Comments Patient remains intubated and sedated, unable to report review of systems at this time. Lungs: Crackles Cardiovascular: S1, S2 Abdomen: Soft, Non-tender Extremities: No Edema Skin: Warm Labs Laboratory Tests Test 08/29/21 12:50 08/29/21 21:53 08/30/21 04:15 08/30/21 08:00 Heparin Anti-Xa Act, Unfractionated 0.79 IU/mL (0.30-0.70) 0.44 IU/mL (0.30-0.70) 0.30 IU/mL (0.30-0.70) O2 Saturation 93 % (92-99) Arterial Blood pH 7.51 (7.35-7.45) Arterial Blood pCO2 at Patient Temp 40 mmHg (35-46) Arterial Blood pO2 at Patient Temp 67 mmHg (65-108) Arterial Blood HCO3 32 mmol/L (21-28) Arterial Blood Base Excess 8 mmol/L (-3-3) FiO2 50/ac 30 400 50% +6 Test 08/30/21 13:40 08/30/21 22:00 08/31/21 03:15 08/31/21 08:00 Activated Clotting Time 216 sec (92-181) Heparin Anti-Xa Act, Unfractionated 0.60 IU/mL (0.30-0.70) 0.48 IU/mL (0.30-0.70) White Blood Count 14.5 x10^3/uL (4.0-11.0) Red Blood Count 3.99 x10^6/uL (4.30-5.70) Hemoglobin 11.4 g/dL (13.0-17.5) Hematocrit 35.8 % (39.0-53.0) Mean Corpuscular Volume 90 fL (79-100) Mean Corpuscular Hemoglobin 29 pg (25-35) Mean Corpuscular Hemoglobin Concent 32 g/dL (31-37) Red Cell Distribution Width 14.6 % (11.5-14.5) Platelet Count 390 x10^3/uL (140-400) Sodium Level 144 mmol/L (136-145) Potassium Level 4.3 mmol/L (3.5-5.1) Chloride Level 100 mmol/L (98-107) Carbon Dioxide Level 38 mmol/L (21-32) Anion Gap 6 (6-14) Blood Urea Nitrogen 26 mg/dL (8-26) Creatinine 0.9 mg/dL (0.7-1.3) Estimated GFR (Cockcroft-Gault) 85.2 BUN/Creatinine Ratio 29 (6-20) Glucose Level 164 mg/dL (70-99) Calcium Level 7.5 mg/dL (8.5-10.1) Total Bilirubin 0.5 mg/dL (0.2-1.0) Aspartate Amino Transf (AST/SGOT) 22 U/L (15-37) Alanine Aminotransferase (ALT/SGPT) 51 U/L (16-63) Alkaline Phosphatase 87 U/L (46-116) Total Protein 5.1 g/dL (6.4-8.2) Albumin 1.9 g/dL (3.4-5.0) Albumin/Globulin Ratio 0.6 (1.0-1.7) O2 Saturation 94 % (92-99) Arterial Blood pH 7.47 (7.35-7.45) Arterial Blood pCO2 at Patient Temp 47 mmHg (35-46) Arterial Blood pO2 at Patient Temp 73 mmHg (65-108) Arterial Blood HCO3 33 mmol/L (21-28) Arterial Blood Base Excess 9 mmol/L (-3-3) FiO2 50/vent Laboratory Tests Test 08/30/21 13:40 08/30/21 22:00 08/31/21 03:15 08/31/21 08:00 Activated Clotting Time 216 sec (92-181) Heparin Anti-Xa Act, Unfractionated 0.60 IU/mL (0.30-0.70) 0.48 IU/mL (0.30-0.70) White Blood Count 14.5 x10^3/uL (4.0-11.0) Red Blood Count 3.99 x10^6/uL (4.30-5.70) Hemoglobin 11.4 g/dL (13.0-17.5) Hematocrit 35.8 % (39.0-53.0) Mean Corpuscular Volume 90 fL (79-100) Mean Corpuscular Hemoglobin 29 pg (25-35) Mean Corpuscular Hemoglobin Concent 32 g/dL (31-37) Red Cell Distribution Width 14.6 % (11.5-14.5) Platelet Count 390 x10^3/uL (140-400) Sodium Level 144 mmol/L (136-145) Potassium Level 4.3 mmol/L (3.5-5.1) Chloride Level 100 mmol/L (98-107) Carbon Dioxide Level 38 mmol/L (21-32) Anion Gap 6 (6-14) Blood Urea Nitrogen 26 mg/dL (8-26) Creatinine 0.9 mg/dL (0.7-1.3) Estimated GFR (Cockcroft-Gault) 85.2 BUN/Creatinine Ratio 29 (6-20) Glucose Level 164 mg/dL (70-99) Calcium Level 7.5 mg/dL (8.5-10.1) Total Bilirubin 0.5 mg/dL (0.2-1.0) Aspartate Amino Transf (AST/SGOT) 22 U/L (15-37) Alanine Aminotransferase (ALT/SGPT) 51 U/L (16-63) Alkaline Phosphatase 87 U/L (46-116) Total Protein 5.1 g/dL (6.4-8.2) Albumin 1.9 g/dL (3.4-5.0) Albumin/Globulin Ratio 0.6 (1.0-1.7) O2 Saturation 94 % (92-99) Arterial Blood pH 7.47 (7.35-7.45) Arterial Blood pCO2 at Patient Temp 47 mmHg (35-46) Arterial Blood pO2 at Patient Temp 73 mmHg (65-108) Arterial Blood HCO3 33 mmol/L (21-28) Arterial Blood Base Excess 9 mmol/L (-3-3) FiO2 50/vent Impression . 1. Acute hypoxic respiratory failure secondary to COVID-19 pneumonia, acute respiratory distress syndrome and possible underlying fibrosis and emphysema., Extubated 08/20, reintubated 08/23 status post CODE BLUE 2. Abnormal CT chest 3. Hypernatremia 4. Suspected underlying severe chronic obstructive pulmonary disease. 5. COVID-19 viral pneumonia.--- Covid recovered 6. Abnormal chest x-ray with bilateral diffuse infiltrates related to COVID-19 viral pneumonia.--- Covid recovered 7. Patient reintubated 08/23, status post CODE BLUE 8. Abnormal x-ray from 08/15, possible ARDS, possible pulmonary edema, possible aspiration 9. ST elevation DC status post intra-aortic balloon pump--08/23/2021 10. Emergent cardiac catheterization revealing 90% stenotic lesion 11. Echocardiogram revealing ejection fraction of 35 to 40% pulmonary artery pressure of 34 inferior septal wall hypokinesis 12. Bacteremia Staph epidermidis Cardiac catheterization 08/30 Due to large vessel size a decision was made to defer stenting at this time for continued medical therapy. After the patient is fully extubated and depending on symptoms could consider PCI. Conclusion 1. Recanalized right coronary artery with brisk blood flow. 2. Residual proximal 70% RCA stenosis with significant ectasia of the RCA measuring up to 6.25 mm. 3. Normal left ventricular filling pressures. Recommendations 1. Continue aspirin, Plavix and heparin drip. 2. Continue plans for extubation. 3. After patient is extubated and stabilized depending on symptoms we will consider high risk PCI with specialized MegaTron stent given the large vessel size. Plan . Updated 08/31 Cardiac catheterization report noted, will DC sedation, attempt a spontaneous trials Continue current support, follow cardiology input If patient is not extubated by next week sometime, may require a trach, discussed with at the bedside Patient currently off pressors Continue Zosyn Diurese Updated 08/30 Awaiting cardiac catheterization Continue current support Off of pressors for now Off of intra-aortic balloon pump and pressors Diurese Antibiotics per ID Continue heparin drip Discussed with at the bedside, CCT 30 minutes REBECCA DUGGAN MD Aug 31, 2021 10:15
[2021-08-31] MEDS: fentaNYL HIGH DOSE PCA 55 ML IV PRN ×2 (10:25→23:22)
[2021-08-31] MEDS ORDERED: ALTEPLASE 1MG SYRINGE. INT CAT ONE (10:45)
--- NOTE | 2021-08-31 15:00 | NUR ---
SS following up with discharge planning. SS reviewed pt chart and discussed with pt RN. Pt is currently on the vent at 50%. COVID19 recovered. Pt on IV Zosyn. Pt on Versed, Fentanyl, Propofol, and Heparin. Pt had heart cath on 08/30/2021. Possible need for trach. Not ready. SS will continue to follow for discharge planning.
[2021-08-31] MEDS: ATORVASTATIN CALCIUM 40 MG TABLET. PO SCH (21:16)
[2021-09-01] VITALS (24 sets, daily range): BP systolic 70–173; BP diastolic 46–96
[2021-09-01] MEDS: PROPOFOL 100 ML IV PRN ×4 (02:47→18:33)
[2021-09-01] MEDS: methylPREDNISolone SOD SUCC PF 125 MG/2 ML VIAL. IV SCH ×3 (06:08→22:03)
[2021-09-01] MEDS: PIPERACILLIN/TAZOBACTAM 4.5 GM in IV DEXTROSE 5% 100ML 100 ML IV SCH ×3 (06:09→18:02)
[2021-09-01] MEDS: MIDAZOLAM 100mg/100ml NS BAG 100 ML IV PRN ×2 (06:09→15:36)
--- NOTE | 2021-09-01 06:32 | PDOC ---
PULMONARY PROGRESS NOTES DATE: 09/01/21 TIME: 06:29 Subjective on vent sedated on fentanyl prop versed 40 FiO2 and 5 of PEEP Off of pressors on hep gtt didnt tolerate sbt yesterday Patient went to cardiac catheterization 08/30 No PCI Vitals Vital Signs Date Time Temp Pulse Resp B/P (MAP) Pulse Ox O2 Delivery O2 Flow Rate FiO2 09/01/21 06:00 69 22 106/67 97 Ventilator 09/01/21 04:00 97.7 97.7 Comments ros unable to obtain sedated on vent HEENT: Other (nc at perrl nose clear orally intubated neck no lad no thyromegaly) Lungs: Crackles Cardiovascular: S1, S2 Abdomen: Soft, Non-tender Extremities: No Edema Skin: Warm Labs Laboratory Tests Test 08/30/21 08:00 08/30/21 13:40 08/30/21 22:00 08/31/21 03:15 O2 Saturation 93 % (92-99) Arterial Blood pH 7.51 (7.35-7.45) Arterial Blood pCO2 at Patient Temp 40 mmHg (35-46) Arterial Blood pO2 at Patient Temp 67 mmHg (65-108) Arterial Blood HCO3 32 mmol/L (21-28) Arterial Blood Base Excess 8 mmol/L (-3-3) FiO2 50/ac 30 400 50% +6 Activated Clotting Time 216 sec (92-181) Heparin Anti-Xa Act, Unfractionated 0.60 IU/mL (0.30-0.70) 0.48 IU/mL (0.30-0.70) White Blood Count 14.5 x10^3/uL (4.0-11.0) Red Blood Count 3.99 x10^6/uL (4.30-5.70) Hemoglobin 11.4 g/dL (13.0-17.5) Hematocrit 35.8 % (39.0-53.0) Mean Corpuscular Volume 90 fL (79-100) Mean Corpuscular Hemoglobin 29 pg (25-35) Mean Corpuscular Hemoglobin Concent 32 g/dL (31-37) Red Cell Distribution Width 14.6 % (11.5-14.5) Platelet Count 390 x10^3/uL (140-400) Sodium Level 144 mmol/L (136-145) Potassium Level 4.3 mmol/L (3.5-5.1) Chloride Level 100 mmol/L (98-107) Carbon Dioxide Level 38 mmol/L (21-32) Anion Gap 6 (6-14) Blood Urea Nitrogen 26 mg/dL (8-26) Creatinine 0.9 mg/dL (0.7-1.3) Estimated GFR (Cockcroft-Gault) 85.2 BUN/Creatinine Ratio 29 (6-20) Glucose Level 164 mg/dL (70-99) Calcium Level 7.5 mg/dL (8.5-10.1) Total Bilirubin 0.5 mg/dL (0.2-1.0) Aspartate Amino Transf (AST/SGOT) 22 U/L (15-37) Alanine Aminotransferase (ALT/SGPT) 51 U/L (16-63) Alkaline Phosphatase 87 U/L (46-116) Total Protein 5.1 g/dL (6.4-8.2) Albumin 1.9 g/dL (3.4-5.0) Albumin/Globulin Ratio 0.6 (1.0-1.7) Test 08/31/21 08:00 08/31/21 11:20 08/31/21 18:15 09/01/21 02:10 O2 Saturation 94 % (92-99) Arterial Blood pH 7.47 (7.35-7.45) Arterial Blood pCO2 at Patient Temp 47 mmHg (35-46) Arterial Blood pO2 at Patient Temp 73 mmHg (65-108) Arterial Blood HCO3 33 mmol/L (21-28) Arterial Blood Base Excess 9 mmol/L (-3-3) FiO2 50/vent Heparin Anti-Xa Act, Unfractionated 0.52 IU/mL (0.30-0.70) 0.77 IU/mL (0.30-0.70) 0.53 IU/mL (0.30-0.70) Laboratory Tests Test 08/31/21 08:00 08/31/21 11:20 08/31/21 18:15 09/01/21 02:10 O2 Saturation 94 % (92-99) Arterial Blood pH 7.47 (7.35-7.45) Arterial Blood pCO2 at Patient Temp 47 mmHg (35-46) Arterial Blood pO2 at Patient Temp 73 mmHg (65-108) Arterial Blood HCO3 33 mmol/L (21-28) Arterial Blood Base Excess 9 mmol/L (-3-3) FiO2 50/vent Heparin Anti-Xa Act, Unfractionated 0.52 IU/mL (0.30-0.70) 0.77 IU/mL (0.30-0.70) 0.53 IU/mL (0.30-0.70) Comments 08/31 cxr reviewed 1. Stable diffuse bilateral opacities. 2. Stable small pleural effusions. 3. Stable life support devices. Impression . 1. Acute hypoxic respiratory failure secondary to COVID-19 pneumonia, acute respiratory distress syndrome and possible underlying fibrosis and emphysema., Extubated 08/20, reintubated 08/23 status post CODE BLUE 2. Abnormal CT chest 3. Hypernatremia 4. Suspected underlying severe chronic obstructive pulmonary disease. 5. COVID-19 viral pneumonia.--- Covid recovered 6. Abnormal chest x-ray with bilateral diffuse infiltrates related to COVID-19 viral pneumonia.--- Covid recovered 7. Patient reintubated 08/23, status post CODE BLUE 8. Abnormal x-ray from 08/15, possible ARDS, possible pulmonary edema, possible aspiration 9. ST elevation DC status post intra-aortic balloon pump--08/23/2021 10. Emergent cardiac catheterization revealing 90% stenotic lesion 11. Echocardiogram revealing ejection fraction of 35 to 40% pulmonary artery pressure of 34 inferior septal wall hypokinesis 12. Bacteremia Staph epidermidis Cardiac catheterization 08/30 Due to large vessel size a decision was made to defer stenting at this time for continued medical therapy. After the patient is fully extubated and depending on symptoms could consider PCI. Conclusion 1. Recanalized right coronary artery with brisk blood flow. 2. Residual proximal 70% RCA stenosis with significant ectasia of the RCA measuring up to 6.25 mm. 3. Normal left ventricular filling pressures. Recommendations 1. Continue aspirin, Plavix and heparin drip. 2. Continue plans for extubation. 3. After patient is extubated and stabilized depending on symptoms we will consider high risk PCI with specialized MegaTron stent given the large vessel size. Plan . Updated 09/01 cont vent support setting reviewed, decrease sedation sbt when more awake Cardiac catheterization report noted, Continue current support, follow cardiology input If patient is not extubated by next week sometime, may require a trach, dr roberson discussed with at the bedside Patient currently off pressors Continue Zosyn zyvox per maria isabel Fonsecae monitor k, cr discussed w rn Updated 08/31 Cardiac catheterization report noted, will DC sedation, attempt a spontaneous trials Continue current support, follow cardiology input If patient is not extubated by next week sometime, may require a trach, discussed with at the bedside Patient currently off pressors Continue Zosyn Diurese Updated 08/30 Awaiting cardiac catheterization Continue current support Off of pressors for now Off of intra-aortic balloon pump and pressors Diurese Antibiotics per ID Continue heparin drip Discussed with at the bedside, CCT 30 minutes STACIE BOO MD Sep 01, 2021 06:32
--- NOTE | 2021-09-01 08:17 | PDOC ---
Infectious Disease Note Subjective Subjective Patient intubated/sedated Does open eyes to verbal stimuli Discussed with ROLAND CERVANTES No nausea vomiting diarrhea Vital Sign Vital Signs Vital Signs Date Time Temp Pulse Resp B/P (MAP) Pulse Ox O2 Delivery O2 Flow Rate FiO2 09/01/21 06:35 79/51 09/01/21 06:00 69 22 97 Ventilator 09/01/21 04:00 97.7 97.7 Physical Exam PHYSICAL EXAM GENERAL: Intubated and sedated, opens eyes to verbal stimuli HEENT: No conjunctival petechia. ETT, OGT tube present. NECK: Supple. LUNGS: Coarse breath sounds in the bases, otherwise clear. HEART: S1, S2, irregular. I could not appreciate any murmurs. ABDOMEN: Soft, nontender, nondistended. Bowel sounds present. GENITOURINARY: Berumen in place. EXTREMITIES: Present no cyanosis. Right groin catheter removed, right upper extremity PICC line placed on 08/23/2021. DERMATOLOGIC: Warm, dry, no generalized rash. NEUROLOGIC: Unable to assess. Labs Lab Laboratory Tests Test 08/31/21 11:20 08/31/21 18:15 09/01/21 02:10 Heparin Anti-Xa Act, Unfractionated 0.52 IU/mL (0.30-0.70) 0.77 IU/mL (0.30-0.70) 0.53 IU/mL (0.30-0.70) Micro Microbiology 08/24/21 Blood Culture - Preliminary, Resulted NO GROWTH AFTER 2 DAYS 08/23/21 Respiratory Culture Gram Stain - Final, Complete 08/23/21 Respiratory Culture - Final, Complete Objective Assessment Fever multifactorial s/p code ,possible aspiration pattern improved 1. Gram-positive bacteremia,MRSE 08/22/2021.Central line was pulled out 2. Acute hypoxic respiratory failure. 3. COVID-19 pneumonia. 4. Chronic obstructive pulmonary disease with possible underlying pulmonary fibrosis, aspiration pneumonia. 5. Status post code atrial fibrillation with rapid ventricular response, ventricular fibrillation, status post defibrillation, epinephrine, bicarbonate drip, status post cardiac catheterization. IABP placement. 6. Severe protein-calorie malnutrition. 7. Abnormal liver function tests, likely shock liver. 8. Anemia. 9. Encephalopathy likely anoxic 10.Electrolyte abn 11.Leucocytosis improving Plan Plan of Care cont Zyvox,Zosyn. CPK 376 ,repeat 107 monitor closely f/u Repeat blood cultures neg so far Follow up labs and cultures. Continue supportive care. Central lihe had been pulled out earlier during this hosp per staff PICC line was placed on 08/23/2021. If repeat blood cultures are positive, the patient will need PICC line removal. Cath today Discussed with RN. BERNARD LOWERY MD Sep 01, 2021 08:17
[2021-09-01 08:30] LABS: BASE EXCESS ABG 5 mmol/L (-3-3); HCO3 ABG 31 mmol/L (21-28); PCO2 ABG 49 mmHg (35-46); PO2 ABG 68 mmHg (65-108); SAT O2 ABG 94 % (92-99)
[2021-09-01] MEDS: FUROSEMIDE 40 MG/4 ML VIAL. IVP SCH (08:31)
[2021-09-01] MEDS: FAMOTIDINE 20 MG/2 ML VIAL IVP SCH ×2 (08:32→20:46)
[2021-09-01] MEDS: SPIRONOLACTONE 25 MG TABLET PO SCH (08:32)
[2021-09-01] MEDS: LINEZOLID 600 MG TABLET PO SCH (08:32)
[2021-09-01] MEDS: ASPIRIN CHEWABLE 81 MG TABLET. PO SCH (08:32)
[2021-09-01] MEDS: POTASSIUM BICARB 20 MEQ EFFERVESCENT TABLET. PO SCH ×3 (08:32→20:46)
[2021-09-01] MEDS: levETIRAcetam 500 MG/5 ML ORAL SOLUTION. PEG SCH ×2 (08:32→20:46)
[2021-09-01] MEDS: LOSARTAN POTASSIUM 25 MG TABLET. PO SCH (08:33)
[2021-09-01] MEDS: CLOPIDOGREL BISULFATE 75 MG TABLET PO SCH (08:34)
[2021-09-01] MEDS: AMIODARONE HCL 200 MG TABLET. PO SCH (08:34)
[2021-09-01 08:41] LABS: FIO2 ABG 40% AC 22 400 5
[2021-09-01 09:52] LABS: CALCIUM 7.8 mg/dL (8.5-10.1); CREATININE 0.9 mg/dL (0.7-1.3); GFR 85.2
[2021-09-01 09:53] LABS: POTASSIUM 4.7 mmol/L (3.5-5.1)
[2021-09-01] MEDS: fentaNYL HIGH DOSE PCA 55 ML IV PRN (12:48)
--- NOTE | 2021-09-01 12:51 | PN ---
DATE: 09/01/2021 SUBJECTIVE: The patient is resting, slightly propped up in bed, in no apparent distress. He continued to be heavily sedated on propofol, Levophed, fentanyl as well as Versed. He is off vasopressor. He continues to be on heparin drip. He went to the [facility] 2 days ago and apparently his catheterization showed a recanalized right coronary artery with brisk blood flow and residual proximal 70% right coronary artery stenosis, significant ectasia of the right coronary artery measuring up to 6.25 mm. He has normal left ventricular filling pressure. The plan was to continue with aspirin, Plavix and heparin drip. Continue with plans for extubation after the patient was extubated and stabilized and depending on his symptoms, high risk PCI with specialized Megatron stent will be considered given the large vessel size. OBJECTIVE: GENERAL: On examining him today, he looked pale, but not jaundiced or cyanosis, no lymphadenopathy, no thyromegaly, no jugular venous distention. No lower limb edema. VITAL SIGNS: His heart rate was 76, blood pressure is 141/89, his temperature was 98.1, respiratory rate 22, and oxygen saturation was 100% on FiO2 of 40%. HEAD, EYES, EARS, NOSE, AND THROAT: Normocephalic, atraumatic. Has orotracheal and orogastric tube. NECK: Supple. HEART: Showed normal first and second heart sounds. No gallop, rub or murmur. CHEST: Clear to auscultation, no crepitation or rhonchi. ABDOMEN: Distended, soft, nontender. NEUROLOGIC: He was heavily sedated. His intake was 3700, output was 5000. LABORATORY DATA: His lab work as of yesterday showed a white cell count 14,500, hemoglobin 11, hematocrit 35, MCV 90 and platelet count 390,000. His chemistry this morning showed a serum sodium 139, potassium 4.7, chloride 98, bicarbonate 36, anion gap of 5, BUN 30, creatinine 0.9. Estimated GFR was 85 mL per minute. His glucose 188, calcium was 7.8. His arterial blood gas this morning showed a pH of 7.42, a pCO2 of 49, pO2 of 68, bicarbonate was 31, oxygen saturation was 94% on FiO2 of 40%. ASSESSMENT: 1. The patient is status post cardiac arrest, likely due to hypoxia associated with COVID-19 and acute myocardial infarction, apparently the patient went into ventricular tachycardia, that was shocked and also went into ventricular fibrillation, treated with epinephrine with return of spontaneous circulation. 2. Acute on chronic hypoxic respiratory failure. 3. Acute respiratory distress syndrome. 4. Acute exacerbation of chronic obstructive pulmonary disease. 5. COVID-19 pneumonia. 6. Atrial fibrillation with rapid ventricular response, rate controlled, currently on heparin drip. 7. Inferior ST segment elevation myocardial infarction. 8. Shock, cardiogenic and septic. 9. The patient underwent cardiac catheterization for the second time, which showed that there is recanalization of the right coronary artery for which he was started on aspirin, Plavix and continue with heparin drip with a plan to do a high risk PCI given the large size of the vessel after he is extubated and stabilizes. PLAN: To continue with mechanical ventilation, wean as tolerated. Continue with Keppra for seizure disorder. I will discontinue his dextrose and lactated Ringer. Meanwhile, continue with IV steroids as well as IV antibiotic. PETER DR: Vannessa TID: [id number]
--- NOTE | 2021-09-01 14:14 | PDOC ---
PROGRESS NOTES Date of Service: DATE: 09/01/21 TIME: 14:12 Subjective Subjective Intubated and sedated Objective Objective Vital Signs Date Time Temp Pulse Resp B/P (MAP) Pulse Ox O2 Delivery O2 Flow Rate FiO2 09/01/21 13:25 100 Ventilator 4.0 09/01/21 13:00 70 22 70/46 09/01/21 12:00 98.1 98.1 Intake and Output 09/01/21 07:00 Intake Total 4982.01 ml Output Total 2975 ml Balance 2007.01 ml IV Total 3136.01 ml Tube Feeding 1591 ml Other 255 ml Output Urine Total 2975 ml Physical Exam Abdomen: Soft Heart: Other (AFIB RVRl distatn heart sounds) Extremities: No cyanosis, No edema General: Other (sedated) HEENT: Atraumatic, Mucous membr. moist/pink Lungs: Other (intubated with MC, diminished throughout) Psych/Mental Status: Other (sedated) Skin: No rashes Assessment Assessment 1. S/P code blue: cardiac arrest likely from hypoxia associated covid-19 PNA/ARDS s/p reintubation. Could not completely rule out PE. Telemetry showed 1 brief episode of NSVT. Continue to monitor. 2. Acute on chronic respiratory failure with ARDS/PNA/COPD 3. AECOPD 4. Covid-19 Pneumonia: noted+ 07/29/2021 5. Hypernatremia: was hyponatremic upon admission. Improved 6. AFIB RVR: converted to SR overnight. Presently SR/SB lowest 40s 7. Inferior STEMI: 8. Shock: multifactorial. Gram-positive bacteremia, 2/4 bottles 9. CAD: LHC revealed thrombotic distal right posterior descending artery and right posterior lateral artery occlusion. There was moderate 50% proximal and 90% mid stenosis appeared to have significant thrombotic burden with ectasia and dilation of the coronary artery 10. ICM: EF at 35-40% 11. Bacteremia: Gram-positive bacteremia, 2/4 bottles, 08/22/2021. ID following 12. Shock liver 13. Encephalopathy with possible seizure 14. Acute systolic CHF: compensated 15. Black distal phalanx to left 2nd toe: possibly r/t to covid-19. no significnat PAD per duplex Recommendations 1. Repeat LHC showed recanalized right coronary artery with brisk blood flow. Residual proximal 70% RCA stenosis with significant ectasia of the RCA measuring up to 6.25 mm. After patient is extubated and stabilized depending on symptoms we will consider high risk PCI with specialized MegaTron stent given the large vessel size 2. Off pressors continue DAPT and heparin drip 3. Continue lasix therapy 4. Continue amiodarone 5. Will optimize meds per HF GDMT as tolerated 6. Secondary prevention measures Comment Review of Relevant I have reviewed the following items shey (where applicable) has been applied. Labs Laboratory Tests Test 08/31/21 18:15 09/01/21 02:10 09/01/21 08:10 09/01/21 09:30 Heparin Anti-Xa Act, Unfractionated 0.77 IU/mL (0.30-0.70) 0.53 IU/mL (0.30-0.70) 0.44 IU/mL (0.30-0.70) O2 Saturation 94 % (92-99) Arterial Blood pH 7.42 (7.35-7.45) Arterial Blood pCO2 at Patient Temp 49 mmHg (35-46) Arterial Blood pO2 at Patient Temp 68 mmHg (65-108) Arterial Blood HCO3 31 mmol/L (21-28) Arterial Blood Base Excess 5 mmol/L (-3-3) FiO2 40% ac 22 400 5 Sodium Level 139 mmol/L (136-145) Potassium Level 4.7 mmol/L (3.5-5.1) Chloride Level 98 mmol/L (98-107) Carbon Dioxide Level 36 mmol/L (21-32) Anion Gap 5 (6-14) Blood Urea Nitrogen 30 mg/dL (8-26) Creatinine 0.9 mg/dL (0.7-1.3) Estimated GFR (Cockcroft-Gault) 85.2 Glucose Level 188 mg/dL (70-99) Calcium Level 7.8 mg/dL (8.5-10.1) Triglycerides Level 223 mg/dL (0-150) Microbiology 08/24/21 Blood Culture - Final, Complete NO GROWTH AFTER 5 DAYS 08/23/21 Respiratory Culture Gram Stain - Final, Complete 08/23/21 Respiratory Culture - Final, Complete Medications Current Medications Methylprednisolone Sodium Succinate (SOLU-Medrol 125MG VIAL) 60 mg Q8HRS IV Last administered on 09/01/21at 12:56; Start 09/01/21 at 14:00 Vitals/I & O Vital Sign - Last 24 Hours 08/31/21 08/31/21 08/31/21 08/31/21 15:00 15:45 16:00 16:00 Temp 98.0 98.0 Pulse 68 100 Resp B/P (MAP) 82/55 152/93 Pulse Ox 100 100 98 O2 Delivery Ventilator Ventilator Ventilator Mechanical Ventilator 08/31/21 08/31/21 08/31/21 08/31/21 17:00 17:21 18:00 19:00 Pulse 90 92 86 Resp B/P (MAP) 135/85 148/90 118/70 Pulse Ox 95 96 95 96 O2 Delivery Ventilator Ventilator Ventilator Ventilator 08/31/21 08/31/21 08/31/21 08/31/21 20:00 20:00 20:27 21:00 Temp 97.8 97.8 Pulse 84 84 Resp B/P (MAP) 126/80 116/70 Pulse Ox 97 96 98 O2 Delivery Mechanical Ventilator Ventilator Ventilator Ventilator 08/31/21 08/31/21 08/31/21 08/31/21 22:00 23:00 23:22 23:52 Pulse 76 72 Resp B/P (MAP) 127/78 99/65 Pulse Ox 98 97 O2 Delivery Ventilator Ventilator 09/01/21 09/01/21 09/01/21 09/01/21 00:00 00:22 01:00 02:00 Temp 97.7 97.7 Pulse 80 86 86 Resp B/P (MAP) 152/95 149/90 145/86 Pulse Ox 97 98 98 98 O2 Delivery Ventilator Ventilator Ventilator Ventilator 09/01/21 09/01/21 09/01/21 09/01/21 03:00 04:00 04:22 05:00 Temp 97.7 97.7 Pulse 80 72 75 Resp B/P (MAP) 146/95 124/90 115/76 Pulse Ox 98 98 98 97 O2 Delivery Ventilator Ventilator Ventilator Ventilator 09/01/21 09/01/21 09/01/21 09/01/21 06:00 06:35 08:00 08:00 Temp 98.1 98.1 Pulse 69 70 Resp B/P (MAP) 106/67 79/51 146/94 Pulse Ox 97 99 O2 Delivery Ventilator Mechanical Ventilator Ventilator 09/01/21 09/01/21 09/01/21 09/01/21 08:11 08:33 08:34 09:00 Pulse 74 69 86 Resp 22 B/P (MAP) 156/97 156/97 141/85 Pulse Ox 98 100 O2 Delivery Ventilator Ventilator 09/01/21 09/01/21 09/01/21 09/01/21 09:11 10:00 11:00 12:00 Temp 98.1 98.1 Pulse 81 76 76 Resp 22 22 B/P (MAP) 155/89 141/89 82/54 Pulse Ox 99 100 100 100 O2 Delivery Ventilator Ventilator Ventilator Ventilator 09/01/21 09/01/21 09/01/21 09/01/21 12:01 12:48 13:00 13:25 Pulse 70 Resp 22 B/P (MAP) 70/46 Pulse Ox 100 100 100 100 O2 Delivery Ventilator Ventilator Ventilator Ventilator O2 Flow Rate 4.0 4.0 Intake and Output 08/31/21 08/31/21 09/01/21 15:00 23:00 07:00 Intake Total 230 ml 970 ml 3782.01 ml Output Total 1725 ml 750 ml 500 ml Balance -1495 ml 220 ml 3282.01 ml NICOLA CARRASCO MD Sep 01, 2021 14:14
[2021-09-01] MEDS: ATORVASTATIN CALCIUM 40 MG TABLET. PO SCH (20:46)
[2021-09-01] MEDS: HEPARIN 25,000UTS/250ML PREMIX 250 ML IV PRN (23:13)
[2021-09-02] VITALS (23 sets, daily range): BP systolic 81–176; BP diastolic 55–104
[2021-09-02] MEDS: PIPERACILLIN/TAZOBACTAM 4.5 GM in IV DEXTROSE 5% 100ML 100 ML IV SCH ×4 (00:04→17:55)
[2021-09-02] MEDS: PROPOFOL 100 ML IV PRN ×3 (01:43→19:48)
[2021-09-02] MEDS: fentaNYL HIGH DOSE PCA 55 ML IV PRN ×2 (02:10→17:50)
[2021-09-02] MEDS: MIDAZOLAM 100mg/100ml NS BAG 100 ML IV PRN ×2 (03:20→17:51)
[2021-09-02 05:46] LABS: CALCIUM 7.3 mg/dL (8.5-10.1); CREATININE 0.9 mg/dL (0.7-1.3); GFR 85.2; POTASSIUM 4.2 mmol/L (3.5-5.1)
[2021-09-02 05:47] LABS: BASO % 0 % (0-3); EOS % 0 % (0-3); HEMATOCRIT 34.2 % (39.0-53.0); HEMOGLOBIN 10.8 g/dL (13.0-17.5); LYMPH # 0.8 x10^3/uL (1.0-4.8); LYMPH % 4 % (24-48); MEAN CORPUSCULAR HEMOGLOBIN 29 pg (25-35); MEAN CORPUSCULAR HGB CONC 32 g/dL (31-37); MEAN CORPUSCULAR VOLUME 91 fL (79-100); MONO # 1.1 x10^3/uL (0.0-1.1); MONO % 6 % (0-9); NEUT # 17.8 x10^3/uL (1.8-7.7); NEUT % 90 % (31-73); PLATELET COUNT 378 x10^3/uL (140-400); RED BLOOD COUNT 3.78 x10^6/uL (4.30-5.70); RED CELL DISTRIBUTION WIDTH 14.9 % (11.5-14.5); WHITE BLOOD COUNT 19.8 x10^3/uL (4.0-11.0)
[2021-09-02] MEDS: methylPREDNISolone SOD SUCC PF 125 MG/2 ML VIAL. IV SCH ×3 (05:49→21:57)
--- NOTE | 2021-09-02 06:27 | PDOC ---
PULMONARY PROGRESS NOTES DATE: 09/02/21 TIME: 06:25 Subjective on vent sedated on fentanyl prop versed 40 FiO2 and 5 of PEEP Off pressors on hep gtt Vitals Vital Signs Date Time Temp Pulse Resp B/P (MAP) Pulse Ox O2 Delivery O2 Flow Rate FiO2 09/02/21 06:00 66 22 86/60 99 Ventilator 09/02/21 04:00 99.0 99.0 09/01/21 13:25 4.0 Comments ros unable to obtain sedated on vent HEENT: Other (nc at perrl nose clear orally intubated neck no lad no thyromegaly) Lungs: Crackles Cardiovascular: S1, S2 Abdomen: Soft, Non-tender Extremities: No Edema Skin: Warm Labs Laboratory Tests Test 08/31/21 08:00 08/31/21 11:20 08/31/21 18:15 09/01/21 02:10 O2 Saturation 94 % (92-99) Arterial Blood pH 7.47 (7.35-7.45) Arterial Blood pCO2 at Patient Temp 47 mmHg (35-46) Arterial Blood pO2 at Patient Temp 73 mmHg (65-108) Arterial Blood HCO3 33 mmol/L (21-28) Arterial Blood Base Excess 9 mmol/L (-3-3) FiO2 50/vent Heparin Anti-Xa Act, Unfractionated 0.52 IU/mL (0.30-0.70) 0.77 IU/mL (0.30-0.70) 0.53 IU/mL (0.30-0.70) Test 09/01/21 08:10 09/01/21 09:30 09/02/21 05:25 O2 Saturation 94 % (92-99) Arterial Blood pH 7.42 (7.35-7.45) Arterial Blood pCO2 at Patient Temp 49 mmHg (35-46) Arterial Blood pO2 at Patient Temp 68 mmHg (65-108) Arterial Blood HCO3 31 mmol/L (21-28) Arterial Blood Base Excess 5 mmol/L (-3-3) FiO2 40% ac 22 400 5 Heparin Anti-Xa Act, Unfractionated 0.44 IU/mL (0.30-0.70) 0.32 IU/mL (0.30-0.70) Sodium Level 139 mmol/L (136-145) 143 mmol/L (136-145) Potassium Level 4.7 mmol/L (3.5-5.1) 4.2 mmol/L (3.5-5.1) Chloride Level 98 mmol/L (98-107) 100 mmol/L (98-107) Carbon Dioxide Level 36 mmol/L (21-32) 39 mmol/L (21-32) Anion Gap 5 (6-14) 4 (6-14) Blood Urea Nitrogen 30 mg/dL (8-26) 35 mg/dL (8-26) Creatinine 0.9 mg/dL (0.7-1.3) 0.9 mg/dL (0.7-1.3) Estimated GFR (Cockcroft-Gault) 85.2 85.2 Glucose Level 188 mg/dL (70-99) 166 mg/dL (70-99) Calcium Level 7.8 mg/dL (8.5-10.1) 7.3 mg/dL (8.5-10.1) Triglycerides Level 223 mg/dL (0-150) White Blood Count 19.8 x10^3/uL (4.0-11.0) Red Blood Count 3.78 x10^6/uL (4.30-5.70) Hemoglobin 10.8 g/dL (13.0-17.5) Hematocrit 34.2 % (39.0-53.0) Mean Corpuscular Volume 91 fL (79-100) Mean Corpuscular Hemoglobin 29 pg (25-35) Mean Corpuscular Hemoglobin Concent 32 g/dL (31-37) Red Cell Distribution Width 14.9 % (11.5-14.5) Platelet Count 378 x10^3/uL (140-400) Neutrophils (%) (Auto) 90 % (31-73) Lymphocytes (%) (Auto) 4 % (24-48) Monocytes (%) (Auto) 6 % (0-9) Eosinophils (%) (Auto) 0 % (0-3) Basophils (%) (Auto) 0 % (0-3) Neutrophils # (Auto) 17.8 x10^3/uL (1.8-7.7) Lymphocytes # (Auto) 0.8 x10^3/uL (1.0-4.8) Monocytes # (Auto) 1.1 x10^3/uL (0.0-1.1) Eosinophils # (Auto) 0.0 x10^3/uL (0.0-0.7) Basophils # (Auto) 0.0 x10^3/uL (0.0-0.2) Laboratory Tests Test 09/01/21 08:10 09/01/21 09:30 09/02/21 05:25 O2 Saturation 94 % (92-99) Arterial Blood pH 7.42 (7.35-7.45) Arterial Blood pCO2 at Patient Temp 49 mmHg (35-46) Arterial Blood pO2 at Patient Temp 68 mmHg (65-108) Arterial Blood HCO3 31 mmol/L (21-28) Arterial Blood Base Excess 5 mmol/L (-3-3) FiO2 40% ac 22 400 5 Heparin Anti-Xa Act, Unfractionated 0.44 IU/mL (0.30-0.70) 0.32 IU/mL (0.30-0.70) Sodium Level 139 mmol/L (136-145) 143 mmol/L (136-145) Potassium Level 4.7 mmol/L (3.5-5.1) 4.2 mmol/L (3.5-5.1) Chloride Level 98 mmol/L (98-107) 100 mmol/L (98-107) Carbon Dioxide Level 36 mmol/L (21-32) 39 mmol/L (21-32) Anion Gap 5 (6-14) 4 (6-14) Blood Urea Nitrogen 30 mg/dL (8-26) 35 mg/dL (8-26) Creatinine 0.9 mg/dL (0.7-1.3) 0.9 mg/dL (0.7-1.3) Estimated GFR (Cockcroft-Gault) 85.2 85.2 Glucose Level 188 mg/dL (70-99) 166 mg/dL (70-99) Calcium Level 7.8 mg/dL (8.5-10.1) 7.3 mg/dL (8.5-10.1) Triglycerides Level 223 mg/dL (0-150) White Blood Count 19.8 x10^3/uL (4.0-11.0) Red Blood Count 3.78 x10^6/uL (4.30-5.70) Hemoglobin 10.8 g/dL (13.0-17.5) Hematocrit 34.2 % (39.0-53.0) Mean Corpuscular Volume 91 fL (79-100) Mean Corpuscular Hemoglobin 29 pg (25-35) Mean Corpuscular Hemoglobin Concent 32 g/dL (31-37) Red Cell Distribution Width 14.9 % (11.5-14.5) Platelet Count 378 x10^3/uL (140-400) Neutrophils (%) (Auto) 90 % (31-73) Lymphocytes (%) (Auto) 4 % (24-48) Monocytes (%) (Auto) 6 % (0-9) Eosinophils (%) (Auto) 0 % (0-3) Basophils (%) (Auto) 0 % (0-3) Neutrophils # (Auto) 17.8 x10^3/uL (1.8-7.7) Lymphocytes # (Auto) 0.8 x10^3/uL (1.0-4.8) Monocytes # (Auto) 1.1 x10^3/uL (0.0-1.1) Eosinophils # (Auto) 0.0 x10^3/uL (0.0-0.7) Basophils # (Auto) 0.0 x10^3/uL (0.0-0.2) Comments 08/31 cxr reviewed 1. Stable diffuse bilateral opacities. 2. Stable small pleural effusions. 3. Stable life support devices. Impression . 1. Acute hypoxic respiratory failure secondary to COVID-19 pneumonia, acute respiratory distress syndrome and possible underlying fibrosis and emphysema., Extubated 08/20, reintubated 08/23 status post CODE BLUE 2. Abnormal CT chest 3. Hypernatremia 4. Suspected underlying severe chronic obstructive pulmonary disease. 5. COVID-19 viral pneumonia.--- Covid recovered 6. Abnormal chest x-ray with bilateral diffuse infiltrates related to COVID-19 viral pneumonia.--- Covid recovered 7. Patient reintubated 08/23, status post CODE BLUE 8. Abnormal x-ray from 08/15, possible ARDS, possible pulmonary edema, possible aspiration 9. ST elevation OH status post intra-aortic balloon pump--08/23/2021 10. Emergent cardiac catheterization revealing 90% stenotic lesion 11. Echocardiogram revealing ejection fraction of 35 to 40% pulmonary artery pressure of 34 inferior septal wall hypokinesis 12. Bacteremia Staph epidermidis Cardiac catheterization 08/30 Due to large vessel size a decision was made to defer stenting at this time for continued medical therapy. After the patient is fully extubated and depending on symptoms could consider PCI. Conclusion 1. Recanalized right coronary artery with brisk blood flow. 2. Residual proximal 70% RCA stenosis with significant ectasia of the RCA measuring up to 6.25 mm. 3. Normal left ventricular filling pressures. Recommendations 1. Continue aspirin, Plavix and heparin drip. 2. Continue plans for extubation. 3. After patient is extubated and stabilized depending on symptoms we will consider high risk PCI with specialized MegaTron stent given the large vessel size. Plan . Updated 09/02 cont vent support setting reviewed, decrease sedation sbt when more awake elevate hob Repeat LHC showed recanalized right coronary artery with brisk blood flow. Residual proximal 70% RCA stenosis with significant ectasia of the RCA measuring up to 6.25 mm. After patient is extubated and stabilized depending on symptoms we will consider high risk PCI with specialized MegaTron stent given the large vessel size If patient is not extubated by next week sometime, may require a trachdr roberson discussed with at the bedside Patient currently off pressors Continue Zosyn zyvox per id Diurese monitor k, cr discussed w rn Updated 09/01 cont vent support setting reviewed, decrease sedation sbt when more awake Cardiac catheterization report noted, Continue current support, follow cardiology input If patient is not extubated by next week sometime, may require a dr karol rand discussed with at the bedside Patient currently off pressors Continue Zosyn zyvox per id Diurese monitor k, cr discussed w rn Updated 08/31 Cardiac catheterization report noted, will DC sedation, attempt a spontaneous trials Continue current support, follow cardiology input If patient is not extubated by next week sometime, may require a trach, discu ssed with at the bedside Patient currently off pressors Continue Zosyn Diurese Updated 08/30 Awaiting cardiac catheterization Continue current support Off of pressors for now Off of intra-aortic balloon pump and pressors Diurese Antibiotics per ID Continue heparin drip Discussed with at the bedside, CCT 30 minutes STACIE BOO MD Sep 02, 2021 06:27
[2021-09-02 07:04] LABS: % BANDS 2 % (0-9); % LYMPHS 4 % (24-48); % MONOS 1 % (0-10); % MYELOS 1 % (0-0); % SEGS 92 % (35-66); PLT ESTIMATE ADEQUATE (ADEQUATE)
--- NOTE | 2021-09-02 07:39 | PDOC ---
Infectious Disease Note Subjective Subjective Patient intubated/sedated Does open eyes to verbal stimuli Discussed with ROLAND CERVANTES No nausea vomiting Vital Sign Vital Signs Vital Signs Date Time Temp Pulse Resp B/P (MAP) Pulse Ox O2 Delivery O2 Flow Rate FiO2 09/02/21 06:00 66 22 86/60 99 Ventilator 09/02/21 04:00 99.0 99.0 09/01/21 13:25 4.0 Physical Exam PHYSICAL EXAM GENERAL: Intubated and sedated, opens eyes to verbal stimuli HEENT: No conjunctival petechia. ETT, OGT tube present. NECK: Supple. LUNGS: Coarse breath sounds in the bases, otherwise clear. HEART: S1, S2, irregular. I could not appreciate any murmurs. ABDOMEN: Soft, nontender, nondistended. Bowel sounds present. GENITOURINARY: Berumen in place. EXTREMITIES: Present no cyanosis. Right groin catheter removed, right upper extremity PICC line placed on 08/23/2021. DERMATOLOGIC: Warm, dry, no generalized rash. NEUROLOGIC: Unable to assess. Labs Lab Laboratory Tests Test 09/01/21 08:10 09/01/21 09:30 09/02/21 05:25 O2 Saturation 94 % (92-99) Arterial Blood pH 7.42 (7.35-7.45) Arterial Blood pCO2 at Patient Temp 49 mmHg (35-46) Arterial Blood pO2 at Patient Temp 68 mmHg (65-108) Arterial Blood HCO3 31 mmol/L (21-28) Arterial Blood Base Excess 5 mmol/L (-3-3) FiO2 40% ac 22 400 5 Heparin Anti-Xa Act, Unfractionated 0.44 IU/mL (0.30-0.70) 0.32 IU/mL (0.30-0.70) Sodium Level 139 mmol/L (136-145) 143 mmol/L (136-145) Potassium Level 4.7 mmol/L (3.5-5.1) 4.2 mmol/L (3.5-5.1) Chloride Level 98 mmol/L (98-107) 100 mmol/L (98-107) Carbon Dioxide Level 36 mmol/L (21-32) 39 mmol/L (21-32) Anion Gap 5 (6-14) 4 (6-14) Blood Urea Nitrogen 30 mg/dL (8-26) 35 mg/dL (8-26) Creatinine 0.9 mg/dL (0.7-1.3) 0.9 mg/dL (0.7-1.3) Estimated GFR (Cockcroft-Gault) 85.2 85.2 Glucose Level 188 mg/dL (70-99) 166 mg/dL (70-99) Calcium Level 7.8 mg/dL (8.5-10.1) 7.3 mg/dL (8.5-10.1) Triglycerides Level 223 mg/dL (0-150) White Blood Count 19.8 x10^3/uL (4.0-11.0) Red Blood Count 3.78 x10^6/uL (4.30-5.70) Hemoglobin 10.8 g/dL (13.0-17.5) Hematocrit 34.2 % (39.0-53.0) Mean Corpuscular Volume 91 fL (79-100) Mean Corpuscular Hemoglobin 29 pg (25-35) Mean Corpuscular Hemoglobin Concent 32 g/dL (31-37) Red Cell Distribution Width 14.9 % (11.5-14.5) Platelet Count 378 x10^3/uL (140-400) Neutrophils (%) (Auto) 90 % (31-73) Lymphocytes (%) (Auto) 4 % (24-48) Monocytes (%) (Auto) 6 % (0-9) Eosinophils (%) (Auto) 0 % (0-3) Basophils (%) (Auto) 0 % (0-3) Neutrophils # (Auto) 17.8 x10^3/uL (1.8-7.7) Lymphocytes # (Auto) 0.8 x10^3/uL (1.0-4.8) Monocytes # (Auto) 1.1 x10^3/uL (0.0-1.1) Eosinophils # (Auto) 0.0 x10^3/uL (0.0-0.7) Basophils # (Auto) 0.0 x10^3/uL (0.0-0.2) Segmented Neutrophils % 92 % (35-66) Band Neutrophils % 2 % (0-9) Lymphocytes % 4 % (24-48) Monocytes % 1 % (0-10) Myelocytes % 1 % (0-0) Platelet Estimate Adequate (ADEQUATE) Micro Microbiology 2/11/22 Blood Culture - Preliminary, Resulted NO GROWTH AFTER 2 DAYS 08/23/21 Respiratory Culture Gram Stain - Final, Complete 08/23/21 Respiratory Culture - Final, Complete Objective Assessment Fever multifactorial s/p code ,possible aspiration pattern improved 1. Gram-positive bacteremia,MRSE 08/22/2021.Central line was pulled out 2. Acute hypoxic respiratory failure. 3. COVID-19 pneumonia. 4. Chronic obstructive pulmonary disease with possible underlying pulmonary fibrosis, aspiration pneumonia. 5. Status post code atrial fibrillation with rapid ventricular response, ventricular fibrillation, status post defibrillation, epinephrine, bicarbonate drip, status post cardiac catheterization. IABP placement. 6. Severe protein-calorie malnutrition. 7. Abnormal liver function tests, likely shock liver. 8. Anemia. 9. Encephalopathy likely anoxic 10.Electrolyte abn 11.Leucocytosis improving Plan Plan of Care cont Zyvox,Zosyn. Elevated WBC likely secondary to steroids has been discontinued yesterday We will watch If diarrhea then check C. difficile Discussed with RN. BERNARD LOWERY MD Sep 02, 2021 07:39
[2021-09-02 07:54] LABS: BASE EXCESS ABG 10 mmol/L (-3-3); HCO3 ABG 36 mmol/L (21-28); PCO2 ABG 55 mmHg (35-46); PO2 ABG 79 mmHg (65-108); SAT O2 ABG 95 % (92-99)
[2021-09-02 08:34] LABS: FIO2 ABG 40% AC 22 400 5
[2021-09-02] MEDS: FAMOTIDINE 20 MG/2 ML VIAL IVP SCH ×2 (09:02→20:52)
[2021-09-02] MEDS: ASPIRIN CHEWABLE 81 MG TABLET. PO SCH (10:22)
[2021-09-02] MEDS: CLOPIDOGREL BISULFATE 75 MG TABLET PO SCH (10:22)
[2021-09-02] MEDS: POTASSIUM BICARB 20 MEQ EFFERVESCENT TABLET. PO SCH ×3 (10:22→20:53)
[2021-09-02] MEDS: FUROSEMIDE 40 MG/4 ML VIAL. IVP SCH (10:22)
[2021-09-02] MEDS: LOSARTAN POTASSIUM 25 MG TABLET. PO SCH (10:23)
[2021-09-02] MEDS: AMIODARONE HCL 200 MG TABLET. PO SCH (10:24)
[2021-09-02] MEDS: SPIRONOLACTONE 25 MG TABLET PO SCH (10:25)
--- NOTE | 2021-09-02 12:15 | PDOC ---
PROGRESS NOTES Date of Service: DATE: 09/02/21 TIME: 12:14 Subjective Subjective Remains intubated Objective Objective Vital Signs Date Time Temp Pulse Resp B/P (MAP) Pulse Ox O2 Delivery O2 Flow Rate FiO2 09/02/21 11:36 99 Ventilator 09/02/21 10:24 72 144/99 09/02/21 06:00 22 09/02/21 04:00 99.0 99.0 09/01/21 13:25 4.0 Intake and Output 09/02/21 07:00 Intake Total 3660.58 ml Output Total 2870 ml Balance 790.58 ml IV Total 898.58 ml Tube Feeding 1791 ml Other 971 ml Output Urine Total 2870 ml Gastric Drainage Total 0 ml Physical Exam Abdomen: Soft Heart: Other (AFIB RVRl distatn heart sounds) Extremities: No cyanosis, No edema General: Other (sedated) HEENT: Atraumatic, Mucous membr. moist/pink Lungs: Other (intubated with MC, diminished throughout) Psych/Mental Status: Other (sedated) Skin: No rashes Assessment Assessment 1. S/P code blue: cardiac arrest likely from hypoxia associated covid-19 PNA/ARDS s/p reintubation. Could not completely rule out PE. Telemetry showed 1 brief episode of NSVT. Continue to monitor. 2. Acute on chronic respiratory failure with ARDS/PNA/COPD 3. AECOPD 4. Covid-19 Pneumonia: noted+ 07/29/2021 5. Hypernatremia: was hyponatremic upon admission. Improved 6. AFIB RVR: converted to SR overnight. Presently SR/SB lowest 40s 7. Inferior STEMI: 8. Shock: multifactorial. Gram-positive bacteremia, 2/4 bottles 9. CAD: LHC revealed thrombotic distal right posterior descending artery and right posterior lateral artery occlusion. There was moderate 50% proximal and 90% mid stenosis appeared to have significant thrombotic burden with ectasia and dilation of the coronary artery 10. ICM: EF at 35-40% 11. Bacteremia: Gram-positive bacteremia, 2/4 bottles, 08/22/2021. ID following 12. Shock liver 13. Encephalopathy with possible seizure 14. Acute systolic CHF: compensated 15. Black distal phalanx to left 2nd toe: possibly r/t to covid-19. no significnat PAD per duplex Recommendations 1. Repeat LHC showed recanalized right coronary artery with brisk blood flow. Residual proximal 70% RCA stenosis with significant ectasia of the RCA measuring up to 6.25 mm. After patient is extubated and stabilized depending on symptoms we will consider high risk PCI with specialized MegaTron stent given the large vessel size 2. Off pressors continue DAPT, will discuss with primary behavior clinician tomorrow regarding stopping heparin gtt. 3. Continue lasix therapy 4. Continue amiodarone 5. Will optimize meds per HF GDMT as tolerated 6. Secondary prevention measures Comment Review of Relevant I have reviewed the following items shey (where applicable) has been applied. Labs Laboratory Tests Test 09/02/21 05:25 09/02/21 07:45 White Blood Count 19.8 x10^3/uL (4.0-11.0) Red Blood Count 3.78 x10^6/uL (4.30-5.70) Hemoglobin 10.8 g/dL (13.0-17.5) Hematocrit 34.2 % (39.0-53.0) Mean Corpuscular Volume 91 fL (79-100) Mean Corpuscular Hemoglobin 29 pg (25-35) Mean Corpuscular Hemoglobin Concent 32 g/dL (31-37) Red Cell Distribution Width 14.9 % (11.5-14.5) Platelet Count 378 x10^3/uL (140-400) Neutrophils (%) (Auto) 90 % (31-73) Lymphocytes (%) (Auto) 4 % (24-48) Monocytes (%) (Auto) 6 % (0-9) Eosinophils (%) (Auto) 0 % (0-3) Basophils (%) (Auto) 0 % (0-3) Neutrophils # (Auto) 17.8 x10^3/uL (1.8-7.7) Lymphocytes # (Auto) 0.8 x10^3/uL (1.0-4.8) Monocytes # (Auto) 1.1 x10^3/uL (0.0-1.1) Eosinophils # (Auto) 0.0 x10^3/uL (0.0-0.7) Basophils # (Auto) 0.0 x10^3/uL (0.0-0.2) Segmented Neutrophils % 92 % (35-66) Band Neutrophils % 2 % (0-9) Lymphocytes % 4 % (24-48) Monocytes % 1 % (0-10) Myelocytes % 1 % (0-0) Platelet Estimate Adequate (ADEQUATE) Heparin Anti-Xa Act, Unfractionated 0.32 IU/mL (0.30-0.70) Sodium Level 143 mmol/L (136-145) Potassium Level 4.2 mmol/L (3.5-5.1) Chloride Level 100 mmol/L (98-107) Carbon Dioxide Level 39 mmol/L (21-32) Anion Gap 4 (6-14) Blood Urea Nitrogen 35 mg/dL (8-26) Creatinine 0.9 mg/dL (0.7-1.3) Estimated GFR (Cockcroft-Gault) 85.2 Glucose Level 166 mg/dL (70-99) Calcium Level 7.3 mg/dL (8.5-10.1) O2 Saturation 95 % (92-99) Arterial Blood pH 7.43 (7.35-7.45) Arterial Blood pCO2 at Patient Temp 55 mmHg (35-46) Arterial Blood pO2 at Patient Temp 79 mmHg (65-108) Arterial Blood HCO3 36 mmol/L (21-28) Arterial Blood Base Excess 10 mmol/L (-3-3) FiO2 40% ac 22 400 5 Microbiology 08/24/21 Blood Culture - Final, Complete NO GROWTH AFTER 5 DAYS 08/23/21 Respiratory Culture Gram Stain - Final, Complete 08/23/21 Respiratory Culture - Final, Complete Medications Current Medications Methylprednisolone Sodium Succinate (SOLU-Medrol 125MG VIAL) 60 mg Q8HRS IV Last administered on 09/02/21at 05:49; Start 09/01/21 at 14:00 Vitals/I & O Vital Sign - Last 24 Hours 09/01/21 09/01/21 09/01/21 09/01/21 12:48 13:00 13:25 13:34 Pulse 70 Resp 22 B/P (MAP) 70/46 Pulse Ox 100 100 100 100 O2 Delivery Ventilator Ventilator Ventilator Ventilator O2 Flow Rate 4.0 4.0 09/01/21 09/01/21 09/01/21 09/01/21 14:00 15:00 15:35 16:00 Temp 98.6 98.6 Pulse 75 80 78 Resp 22 B/P (MAP) 118/70 129/81 152/83 Pulse Ox 100 100 100 99 O2 Delivery Ventilator Ventilator Ventilator Ventilator 09/01/21 09/01/21 09/01/21 09/01/21 17:00 17:10 18:00 19:00 Pulse 87 85 72 Resp B/P (MAP) 146/91 173/96 83/58 Pulse Ox 97 96 98 99 O2 Delivery Ventilator Ventilator Ventilator Ventilator 09/01/21 09/01/21 09/01/21 09/01/21 20:00 20:00 20:00 21:00 Temp 97.5 97.5 Pulse 71 66 Resp B/P (MAP) 83/56 76/52 Pulse Ox 99 96 99 O2 Delivery Mechanical Ventilator Ventilator Ventilator Ventilator 09/01/21 09/01/21 09/02/21 09/02/21 22:00 23:00 00:00 00:00 Temp 98.4 98.4 Pulse 64 64 68 Resp B/P (MAP) 79/53 77/51 100/65 Pulse Ox 99 99 99 99 O2 Delivery Ventilator Ventilator Ventilator Ventilator 09/02/21 09/02/21 09/02/21 09/02/21 01:00 02:00 03:00 04:00 Temp 99.0 99.0 Pulse 70 89 78 77 Resp B/P (MAP) 124/78 136/87 151/88 129/80 Pulse Ox 98 99 99 100 O2 Delivery Ventilator Ventilator Ventilator Ventilator 09/02/21 09/02/21 09/02/21 09/02/21 04:00 05:00 05:00 06:00 Pulse 66 66 Resp B/P (MAP) 81/56 86/60 Pulse Ox 99 99 99 99 O2 Delivery Ventilator Ventilator Ventilator Ventilator 09/02/21 09/02/21 09/02/21 09/02/21 07:00 07:51 09:17 10:23 Pulse 78 B/P (MAP) 144/99 Pulse Ox 100 96 O2 Delivery Mechanical Ventilator Ventilator Ventilator 09/02/21 09/02/21 10:24 11:36 Pulse 72 B/P (MAP) 144/99 Pulse Ox 99 O2 Delivery Ventilator Intake and Output 09/01/21 09/01/21 09/02/21 15:00 23:00 07:00 Intake Total 250 ml 1766 ml 1644.58 ml Output Total 2000 ml 570 ml 300 ml Balance -1750 ml 1196 ml 1344.58 ml NICOLA CARRASCO MD Sep 02, 2021 12:15
[2021-09-02] MEDS: levETIRAcetam 500 MG/5 ML ORAL SOLUTION. PEG SCH ×2 (18:02→20:52)
[2021-09-02] MEDS: ATORVASTATIN CALCIUM 40 MG TABLET. PO SCH (20:52)
[2021-09-03] VITALS (24 sets, daily range): BP systolic 84–186; BP diastolic 48–99
[2021-09-03] MEDS: PIPERACILLIN/TAZOBACTAM 4.5 GM in IV DEXTROSE 5% 100ML 100 ML IV SCH ×4 (00:04→17:55)
[2021-09-03] MEDS: MIDAZOLAM 100mg/100ml NS BAG 100 ML IV PRN ×2 (01:52→11:24)
[2021-09-03] MEDS: HEPARIN 25,000UTS/250ML PREMIX 250 ML IV PRN (01:53)
[2021-09-03] MEDS: PROPOFOL 100 ML IV PRN ×3 (02:49→17:56)
[2021-09-03] MEDS: fentaNYL HIGH DOSE PCA 55 ML IV PRN ×2 (03:45→23:10)
[2021-09-03 05:35] LABS: HEMATOCRIT 34.1 % (39.0-53.0); HEMOGLOBIN 10.8 g/dL (13.0-17.5); RED BLOOD COUNT 3.8 x10^6/uL (4.30-5.70); RED CELL DISTRIBUTION WIDTH 14.8 % (11.5-14.5); WHITE BLOOD COUNT 21.6 x10^3/uL (4.0-11.0)
[2021-09-03] MEDS: methylPREDNISolone SOD SUCC PF 125 MG/2 ML VIAL. IV SCH ×3 (05:50→22:04)
[2021-09-03 05:53] LABS: CALCIUM 7.5 mg/dL (8.5-10.1); CREATININE 0.8 mg/dL (0.7-1.3); GFR 97.6; POTASSIUM 4.7 mmol/L (3.5-5.1)
--- NOTE | 2021-09-03 06:57 | PDOC ---
Infectious Disease Note Subjective Subjective Patient intubated/sedated Does open eyes to verbal stimuli Discussed with ROLAND CERVANTES no n/v/d/ Vital Sign Vital Signs Vital Signs Date Time Temp Pulse Resp B/P (MAP) Pulse Ox O2 Delivery O2 Flow Rate FiO2 09/03/21 06:00 67 22 99/55 96 Ventilator 09/03/21 04:00 98.7 98.7 Physical Exam PHYSICAL EXAM GENERAL: Intubated and sedated, opens eyes to verbal stimuli HEENT: No conjunctival petechia. ETT, OGT tube present. NECK: Supple. LUNGS: Coarse breath sounds in the bases, otherwise clear. HEART: S1, S2, irregular. I could not appreciate any murmurs. ABDOMEN: Soft, nontender, nondistended. Bowel sounds present. GENITOURINARY: Berumen in place. EXTREMITIES: Present no cyanosis. Right groin catheter removed, right upper extremity PICC line placed on 08/23/2021. DERMATOLOGIC: Warm, dry, no generalized rash. NEUROLOGIC: Unable to assess. Labs Lab Laboratory Tests Test 09/02/21 07:45 09/03/21 05:25 O2 Saturation 95 % (92-99) Arterial Blood pH 7.43 (7.35-7.45) Arterial Blood pCO2 at Patient Temp 55 mmHg (35-46) Arterial Blood pO2 at Patient Temp 79 mmHg (65-108) Arterial Blood HCO3 36 mmol/L (21-28) Arterial Blood Base Excess 10 mmol/L (-3-3) FiO2 40% ac 22 400 5 White Blood Count 21.6 x10^3/uL (4.0-11.0) Red Blood Count 3.80 x10^6/uL (4.30-5.70) Hemoglobin 10.8 g/dL (13.0-17.5) Hematocrit 34.1 % (39.0-53.0) Mean Corpuscular Volume 90 fL (79-100) Mean Corpuscular Hemoglobin 28 pg (25-35) Mean Corpuscular Hemoglobin Concent 32 g/dL (31-37) Red Cell Distribution Width 14.8 % (11.5-14.5) Platelet Count 378 x10^3/uL (140-400) Sodium Level 142 mmol/L (136-145) Potassium Level 4.7 mmol/L (3.5-5.1) Chloride Level 100 mmol/L (98-107) Carbon Dioxide Level 38 mmol/L (21-32) Anion Gap 4 (6-14) Blood Urea Nitrogen 40 mg/dL (8-26) Creatinine 0.8 mg/dL (0.7-1.3) Estimated GFR (Cockcroft-Gault) 97.6 Glucose Level 163 mg/dL (70-99) Calcium Level 7.5 mg/dL (8.5-10.1) Micro Microbiology 08/24/21 Blood Culture - Preliminary, Resulted NO GROWTH AFTER 2 DAYS 08/23/21 Respiratory Culture Gram Stain - Final, Complete 08/23/21 Respiratory Culture - Final, Complete Objective Assessment Fever multifactorial s/p code ,possible aspiration pattern improved 1. Gram-positive bacteremia,MRSE 08/22/2021.Central line was pulled out 2. Acute hypoxic respiratory failure. 3. COVID-19 pneumonia. 4. Chronic obstructive pulmonary disease with possible underlying pulmonary fibrosis, aspiration pneumonia. 5. Status post code atrial fibrillation with rapid ventricular response, ventricular fibrillation, status post defibrillation, epinephrine, bicarbonate drip, status post cardiac catheterization. IABP placement. 6. Severe protein-calorie malnutrition. 7. Abnormal liver function tests, likely shock liver. 8. Anemia. 9. Encephalopathy likely anoxic 10.Electrolyte abn 11.Leucocytosis improving Plan Plan of Care cont ,Zosyn. supportive care attempt at extubation Discussed with RN. BERNARD LOWERY MD Sep 03, 2021 06:57
[2021-09-03] MEDS: POTASSIUM BICARB 20 MEQ EFFERVESCENT TABLET. PO SCH ×3 (07:59→21:02)
[2021-09-03] MEDS: AMIODARONE HCL 200 MG TABLET. PO SCH (08:02)
[2021-09-03] MEDS: CLOPIDOGREL BISULFATE 75 MG TABLET PO SCH (08:02)
[2021-09-03] MEDS: LOSARTAN POTASSIUM 25 MG TABLET. PO SCH (08:02)
[2021-09-03] MEDS: levETIRAcetam 500 MG/5 ML ORAL SOLUTION. PEG SCH ×2 (08:03→21:02)
[2021-09-03] MEDS: ASPIRIN CHEWABLE 81 MG TABLET. PO SCH (08:03)
[2021-09-03] MEDS: FUROSEMIDE 40 MG/4 ML VIAL. IVP SCH (08:03)
[2021-09-03] MEDS: FAMOTIDINE 20 MG/2 ML VIAL IVP SCH ×2 (08:03→21:03)
[2021-09-03] MEDS: SPIRONOLACTONE 25 MG TABLET PO SCH (08:03)
[2021-09-03 08:33] LABS: BASE EXCESS ABG 10 mmol/L (-3-3); HCO3 ABG 36 mmol/L (21-28); PCO2 ABG 56 mmHg (35-46); PO2 ABG 72 mmHg (65-108); SAT O2 ABG 94 % (92-99)
[2021-09-03 08:35] LABS: FIO2 ABG 40
--- NOTE | 2021-09-03 09:07 | PN ---
DATE: 09/03/2021 SUBJECTIVE: The patient is resting, slightly propped up in bed, in no apparent respiratory distress. He is off sedation. He is maintaining his oxygen saturation at 96% on FiO2 of 40%. PHYSICAL EXAMINATION: GENERAL: When I examined him, he was pale, but no jaundiced, cyanosed. No thyromegaly. No jugular venous distention. No limb edema. VITAL SIGNS: His heart rate was 66, blood pressure was 108/65, temperature was 98.7, respiratory rate 22, and oxygen saturation was 96% on FiO2 of 40%. HEAD, EYES, EARS, NOSE, AND THROAT: Normocephalic, atraumatic. He has orotracheal and orogastric tube in place. NECK: Supple. HEART: Normal first and second heart sounds. No gallop, rub or murmur. CHEST: Shows central trachea, equal bilateral chest expansion, air entry, vesicular breath sounds. I could not appreciate any crepitation or rhonchi anteriorly. ABDOMEN: Distended, soft, nontender. NEUROLOGIC: They have just discontinued his propofol and Versed. His intake over the last 24 hours was 3750, output was 2870. LABORATORY DATA: As of this morning showed a white cell count 21,600, hemoglobin 10, hematocrit 34, MCV 90 and platelet count 378,000. His serum sodium was 142, potassium 4.7, chloride 100, bicarbonate 38, anion gap of 4, BUN 40, creatinine 0.8. Estimated GFR was 97 mL per minute. His glucose 163 and calcium was 7.5. He continues to be on a heparin drip. His blood culture has grown Staphylococcus epidermidis. ASSESSMENT: 1. The patient is status post cardiac arrest, likely due to hypoxia associated with COVID-19, acute myocardial infarction. Apparently, the patient went into ventricular tachycardia, it was shocked and also went into ventricular fibrillation, treated with epinephrine with return of spontaneous circulation. 2. Acute on chronic hypoxic respiratory failure. 3. Acute respiratory distress syndrome. 4. Acute exacerbation of chronic obstructive pulmonary disease. 5. COVID-19 pneumonia. 6. Atrial fibrillation with rapid ventricular response, rate controlled, currently on heparin drip. 7. Inferior ST segment elevation myocardial infarction. 8. Shock, which is cardiogenic and septic. 9. The patient underwent cardiac catheterization for second time, which showed that there is recanalization of the right coronary artery, for which he was started on aspirin, Plavix and continued on heparin drip with a plan to do high risk PCI given the large size of the vessel after he gets extubated and stabilizes. PLAN: To continue with mechanical ventilation, wean as tolerated. Continue with Keppra for seizure disorder. We have continued his dextrose and lactated Ringer, cut down his steroids. His blood sugar seems to be much better controlled after we discontinued his IV fluid and cut down the steroids. VEL DR: Vannessa TID: [id number]
--- NOTE | 2021-09-03 09:14 | PDOC ---
PULMONARY PROGRESS NOTES DATE: 09/03/21 TIME: 09:12 Subjective Patient sedated Currently on assist control ventilation Vitals Vital Signs Date Time Temp Pulse Resp B/P (MAP) Pulse Ox O2 Delivery O2 Flow Rate FiO2 09/03/21 08:02 65 108/65 09/03/21 08:00 97 Ventilator 09/03/21 07:00 22 09/03/21 04:00 98.7 98.7 Comments ros unable to obtain sedated on vent HEENT: Other (nc at perrl nose clear orally intubated neck no lad no thyromegaly) Lungs: Crackles Cardiovascular: S1, S2 Abdomen: Soft, Non-tender Extremities: No Edema Skin: Warm Labs Laboratory Tests Test 09/01/21 09:30 09/02/21 05:25 09/02/21 07:45 09/03/21 05:25 Heparin Anti-Xa Act, Unfractionated 0.44 IU/mL (0.30-0.70) 0.32 IU/mL (0.30-0.70) 0.59 IU/mL (0.30-0.70) Sodium Level 139 mmol/L (136-145) 143 mmol/L (136-145) 142 mmol/L (136-145) Potassium Level 4.7 mmol/L (3.5-5.1) 4.2 mmol/L (3.5-5.1) 4.7 mmol/L (3.5-5.1) Chloride Level 98 mmol/L (98-107) 100 mmol/L (98-107) 100 mmol/L (98-107) Carbon Dioxide Level 36 mmol/L (21-32) 39 mmol/L (21-32) 38 mmol/L (21-32) Anion Gap 5 (6-14) 4 (6-14) 4 (6-14) Blood Urea Nitrogen 30 mg/dL (8-26) 35 mg/dL (8-26) 40 mg/dL (8-26) Creatinine 0.9 mg/dL (0.7-1.3) 0.9 mg/dL (0.7-1.3) 0.8 mg/dL (0.7-1.3) Estimated GFR (Cockcroft-Gault) 85.2 85.2 97.6 Glucose Level 188 mg/dL (70-99) 166 mg/dL (70-99) 163 mg/dL (70-99) Calcium Level 7.8 mg/dL (8.5-10.1) 7.3 mg/dL (8.5-10.1) 7.5 mg/dL (8.5-10.1) Triglycerides Level 223 mg/dL (0-150) White Blood Count 19.8 x10^3/uL (4.0-11.0) 21.6 x10^3/uL (4.0-11.0) Red Blood Count 3.78 x10^6/uL (4.30-5.70) 3.80 x10^6/uL (4.30-5.70) Hemoglobin 10.8 g/dL (13.0-17.5) 10.8 g/dL (13.0-17.5) Hematocrit 34.2 % (39.0-53.0) 34.1 % (39.0-53.0) Mean Corpuscular Volume 91 fL (79-100) 90 fL (79-100) Mean Corpuscular Hemoglobin 29 pg (25-35) 28 pg (25-35) Mean Corpuscular Hemoglobin Concent 32 g/dL (31-37) 32 g/dL (31-37) Red Cell Distribution Width 14.9 % (11.5-14.5) 14.8 % (11.5-14.5) Platelet Count 378 x10^3/uL (140-400) 378 x10^3/uL (140-400) Neutrophils (%) (Auto) 90 % (31-73) Lymphocytes (%) (Auto) 4 % (24-48) Monocytes (%) (Auto) 6 % (0-9) Eosinophils (%) (Auto) 0 % (0-3) Basophils (%) (Auto) 0 % (0-3) Neutrophils # (Auto) 17.8 x10^3/uL (1.8-7.7) Lymphocytes # (Auto) 0.8 x10^3/uL (1.0-4.8) Monocytes # (Auto) 1.1 x10^3/uL (0.0-1.1) Eosinophils # (Auto) 0.0 x10^3/uL (0.0-0.7) Basophils # (Auto) 0.0 x10^3/uL (0.0-0.2) Segmented Neutrophils % 92 % (35-66) Band Neutrophils % 2 % (0-9) Lymphocytes % 4 % (24-48) Monocytes % 1 % (0-10) Myelocytes % 1 % (0-0) Platelet Estimate Adequate (ADEQUATE) O2 Saturation 95 % (92-99) Arterial Blood pH 7.43 (7.35-7.45) Arterial Blood pCO2 at Patient Temp 55 mmHg (35-46) Arterial Blood pO2 at Patient Temp 79 mmHg (65-108) Arterial Blood HCO3 36 mmol/L (21-28) Arterial Blood Base Excess 10 mmol/L (-3-3) FiO2 40% ac 22 400 5 Test 09/03/21 08:00 O2 Saturation 94 % (92-99) Arterial Blood pH 7.43 (7.35-7.45) Arterial Blood pCO2 at Patient Temp 56 mmHg (35-46) Arterial Blood pO2 at Patient Temp 72 mmHg (65-108) Arterial Blood HCO3 36 mmol/L (21-28) Arterial Blood Base Excess 10 mmol/L (-3-3) FiO2 40 Laboratory Tests Test 09/03/21 05:25 09/03/21 08:00 White Blood Count 21.6 x10^3/uL (4.0-11.0) Red Blood Count 3.80 x10^6/uL (4.30-5.70) Hemoglobin 10.8 g/dL (13.0-17.5) Hematocrit 34.1 % (39.0-53.0) Mean Corpuscular Volume 90 fL (79-100) Mean Corpuscular Hemoglobin 28 pg (25-35) Mean Corpuscular Hemoglobin Concent 32 g/dL (31-37) Red Cell Distribution Width 14.8 % (11.5-14.5) Platelet Count 378 x10^3/uL (140-400) Heparin Anti-Xa Act, Unfractionated 0.59 IU/mL (0.30-0.70) Sodium Level 142 mmol/L (136-145) Potassium Level 4.7 mmol/L (3.5-5.1) Chloride Level 100 mmol/L (98-107) Carbon Dioxide Level 38 mmol/L (21-32) Anion Gap 4 (6-14) Blood Urea Nitrogen 40 mg/dL (8-26) Creatinine 0.8 mg/dL (0.7-1.3) Estimated GFR (Cockcroft-Gault) 97.6 Glucose Level 163 mg/dL (70-99) Calcium Level 7.5 mg/dL (8.5-10.1) O2 Saturation 94 % (92-99) Arterial Blood pH 7.43 (7.35-7.45) Arterial Blood pCO2 at Patient Temp 56 mmHg (35-46) Arterial Blood pO2 at Patient Temp 72 mmHg (65-108) Arterial Blood HCO3 36 mmol/L (21-28) Arterial Blood Base Excess 10 mmol/L (-3-3) FiO2 40 Impression . 1. Acute hypoxic respiratory failure secondary to COVID-19 pneumonia, acute respiratory distress syndrome and possible underlying fibrosis and emphysema., Extubated 08/20, reintubated 08/23 status post CODE BLUE 2. Abnormal CT chest 3. Hypernatremia 4. Suspected underlying severe chronic obstructive pulmonary disease. 5. COVID-19 viral pneumonia.--- Covid recovered 6. Abnormal chest x-ray with bilateral diffuse infiltrates related to COVID-19 viral pneumonia.--- Covid recovered 7. Patient reintubated 08/23, status post CODE BLUE 8. Abnormal x-ray from 08/15, possible ARDS, possible pulmonary edema, possible aspiration 9. ST elevation HI status post intra-aortic balloon pump--08/23/2021 10. Emergent cardiac catheterization revealing 90% stenotic lesion 11. Echocardiogram revealing ejection fraction of 35 to 40% pulmonary artery pressure of 34 inferior septal wall hypokinesis 12. Bacteremia Staph epidermidis Cardiac catheterization 08/30 Due to large vessel size a decision was made to defer stenting at this time for continued medical therapy. After the patient is fully extubated and depending on symptoms could consider PCI. Conclusion 1. Recanalized right coronary artery with brisk blood flow. 2. Residual proximal 70% RCA stenosis with significant ectasia of the RCA measuring up to 6.25 mm. 3. Normal left ventricular filling pressures. Recommendations 1. Continue aspirin, Plavix and heparin drip. 2. Continue plans for extubation. 3. After patient is extubated and stabilized depending on symptoms we will consider high risk PCI with specialized MegaTron stent given the large vessel size. Plan . Updated 09/03 Patient too sick to undergo weaning, requires a trach Continue current support Antibiotics per ID Discussed with at the bedside, discussed with Dr. Dangelo. Updated 09/02 cont vent support setting reviewed, decrease sedation sbt when more awake elevate hob Repeat LHC showed recanalized right coronary artery with brisk blood flow. Residual proximal 70% RCA stenosis with significant ectasia of the RCA measuring up to 6.25 mm. After patient is extubated and stabilized depending on symptoms we will consider high risk PCI with specialized MegaTron stent given the large vessel size If patient is not extubated by next week sometime, may require a trach, dr roberson discussed with at the bedside Patient currently off pressors Continue Zosyn zyvox per id Diurese monitor k, cr discussed w REBECCA Campuzano MD Sep 03, 2021 09:13
--- NOTE | 2021-09-03 09:24 | PN ---
DATE: 09/02/2021 SUBJECTIVE: The patient continues to be sedated, intubated and mechanically ventilated. PHYSICAL EXAMINATION: GENERAL: When I examined him, he was pale, but not jaundiced or cyanosed. No thyromegaly. No jugular venous distention. No lower limb edema. VITAL SIGNS: His heart rate was 66, blood pressure was 86/60, temperature was 99, respiratory rate was 22 and oxygen saturation was 99% on FiO2 of 40%. HEAD, EYES, EARS, NOSE AND THROAT: Normocephalic, atraumatic. Has orotracheal and orogastric tube. NECK: Supple. HEART: Normal first and second heart sounds. No gallop, rub or murmur. CHEST: Clear to auscultation, no crepitation or rhonchi. ABDOMEN: Distended, soft, nontender. NEUROLOGIC: He is heavily sedated. GENITOURINARY: He has an indwelling Berumen catheter. His intake over the last 24 hours was 4980, output was 2975. LABORATORY DATA: As of this morning, his white cell count went up to 19,800, hemoglobin 11, hematocrit 34, MCV 91, and platelet count 378,000. His serum sodium was 143, potassium 4.2, chloride 100, bicarbonate 39, anion gap of 4, BUN 35, creatinine 0.9. Estimated GFR was 85 mL per minute. His glucose 166, calcium was 7.3. His arterial blood gas this morning showed a pH of 7.43, a pCO2 of 55, pO2 of 79, bicarbonate 36, and oxygen saturation was 95% on FiO2 of 40%. ASSESSMENT: 1. The patient is status post cardiac arrest, likely due to hypoxia associated with COVID-19 as well as acute myocardial infarction. Apparently, the patient went into ventricular tachycardia, into a shock and also went into ventricular fibrillation, treated with CPR and epinephrine with return of spontaneous circulation. 2. Acute on chronic hypoxic respiratory failure. 3. Acute respiratory distress syndrome. 4. Acute exacerbation of chronic obstructive pulmonary disease. 5. COVID-19 pneumonia. 6. Atrial fibrillation with rapid ventricular response, rate controlled, currently on heparin drip. 7. Inferior ST segment elevation myocardial infarction. 8. Cardiogenic and septic shock. 9. The patient underwent cardiac catheterization for the second time, which showed that there is a recanalization of the right coronary artery for which he was started on aspirin, Plavix and continued on heparin drip with a plan to do a high risk PCI given the large size of the vessel after he gets extubated and stabilized. PLAN: To continue with mechanical ventilation, wean as tolerated. Continue with Keppra for seizure disorder. We will have discontinued his dextrose with lactated Ringer. Meanwhile, continue with IV steroids as well as IV antibiotic. MONICO/KOBE DR: Vannessa TID: [id number]
--- NOTE | 2021-09-03 11:30 | PDOC ---
TETO DIAZ FISH GRADER 09/03/21 1130: CARDIO Progress Notes Date and Time Date of Service 09/03/21 Time of Evaluation 1120 Subjective Subjective: Other (intubated ) Vitals Vitals Vital Signs Date Time Temp Pulse Resp B/P (MAP) Pulse Ox O2 Delivery O2 Flow Rate FiO2 09/03/21 11:00 88 22 140/95 97 Ventilator 09/03/21 08:00 98.0 98.0 Weight Weight [ ] Input and Output Intake and Output Intake and Output 09/03/21 07:00 Intake Total 3285.34 ml Output Total 3005 ml Balance 280.34 ml IV Total 1338.34 ml Tube Feeding 1697 ml Other 250 ml Output Urine Total 3005 ml Gastric Drainage Total 0 ml Laboratory Labs Laboratory Tests Test 09/03/21 05:25 09/03/21 08:00 White Blood Count 21.6 x10^3/uL (4.0-11.0) Red Blood Count 3.80 x10^6/uL (4.30-5.70) Hemoglobin 10.8 g/dL (13.0-17.5) Hematocrit 34.1 % (39.0-53.0) Mean Corpuscular Volume 90 fL (79-100) Mean Corpuscular Hemoglobin 28 pg (25-35) Mean Corpuscular Hemoglobin Concent 32 g/dL (31-37) Red Cell Distribution Width 14.8 % (11.5-14.5) Platelet Count 378 x10^3/uL (140-400) Heparin Anti-Xa Act, Unfractionated 0.59 IU/mL (0.30-0.70) Sodium Level 142 mmol/L (136-145) Potassium Level 4.7 mmol/L (3.5-5.1) Chloride Level 100 mmol/L (98-107) Carbon Dioxide Level 38 mmol/L (21-32) Anion Gap 4 (6-14) Blood Urea Nitrogen 40 mg/dL (8-26) Creatinine 0.8 mg/dL (0.7-1.3) Estimated GFR (Cockcroft-Gault) 97.6 Glucose Level 163 mg/dL (70-99) Calcium Level 7.5 mg/dL (8.5-10.1) O2 Saturation 94 % (92-99) Arterial Blood pH 7.43 (7.35-7.45) Arterial Blood pCO2 at Patient Temp 56 mmHg (35-46) Arterial Blood pO2 at Patient Temp 72 mmHg (65-108) Arterial Blood HCO3 36 mmol/L (21-28) Arterial Blood Base Excess 10 mmol/L (-3-3) FiO2 40 Microbiology Micro Microbiology 08/24/21 Blood Culture - Final, Complete NO GROWTH AFTER 5 DAYS 08/23/21 Respiratory Culture Gram Stain - Final, Complete 08/23/21 Respiratory Culture - Final, Complete Physical Exam HEENT: Other (supple ) Chest: Symmetric LUNGS: Other (MV) Heart: RRR (SR ) Abdomen: Other (soft ) Extremities: No Edema, Other (no edema. Eschar to left foot, second toe) Neurology: other (sedated ) Assessment Assessment 1. S/P cardiac arrest; multifactorial. Noted with VT shock x1. approximately <3 min to ROSC. Tele with brief NSVT, otherwise is SR 2. Acute on chronic respiratory failure with COVID PNA, ARDS. unable to be weaned from vent. trach planned 3. CAD, inferior STEMI with embolic disease. Initial LHC with thrombotic distal right posterior descending artery and right posterior lateral artery occlusion. There was moderate 50% proximal and 90% mid stenosis appeared to have significant thrombotic burden with ectasia and dilation of the coronary artery. Repeat LHC showed recanalized RCA with brisk blood flow. Residual proximal 70% RCA stenosis with significant ectasia of the RCA measuring up to 6.25 mm. 4. Cardiogenic shock; resolved. IABP removed 5. Acute on chronic systolic CHF, ICM: EF at 35-40% 6. AFIB RVR: presently SR/SB 7. Hypertension; controlled 8. Hyperlipidemi; statin 9. Encephalopathy with possible seizure; on Keppra 10. Black distal phalanx to left 2nd toe: possibly r/t to covid-19. no significnat PAD per duplex Recommendations Secondary prevention, DAPT Continue heparin gtt for now. Amiodarone for rhythm maintenance HF optimization with Lasix, spironolactone, losartan No BB with bradycardia Ongoing support, pulmonary optimization Consider high risk PCI with specialized MegaTron stent given the large vessel size once stabilized Justicifation of Admission Dx: Justifications for Admission: Justification of Admission Dx: N/A TEDDY ANGLIN MD 09/03/212128: CARDIO Progress Notes Plan Plan The patient was seen and interviewed as well as examined at the bedside. The chart was reviewed. The case was discussed. Agree with the plan of care. If Trach planned, please notify cardiology for mgmt of antiplatelets and anticoagulants. Thanks TETO DIAZ APRN Sep 03, 2021 11:30 TEDDY ANGLIN MD Sep 03, 2021 21:29
--- NOTE | 2021-09-03 16:14 | NUR ---
SS following up with discharge planning. SS reviewed pt chart and discussed with pt RN. Pt is currently on the vent at 40%. COVID19 recovered. Pt on IV Zosyn, IV Solu-Medrol, and IV Lasix. Pt on Versed, Fentanyl, Propofol, and Heparin. Not ready. Dr. Peralta consulted for Trach. SS will continue to follow for discharge planning.
[2021-09-03] MEDS: ATORVASTATIN CALCIUM 40 MG TABLET. PO SCH (21:02)
[2021-09-04] VITALS (24 sets, daily range): BP systolic 81–177; BP diastolic 51–105
[2021-09-04] MEDS: PIPERACILLIN/TAZOBACTAM 4.5 GM in IV DEXTROSE 5% 100ML 100 ML IV SCH ×5 (00:04→23:58)
[2021-09-04] MEDS: MIDAZOLAM 100mg/100ml NS BAG 100 ML IV PRN ×2 (00:14→18:14)
[2021-09-04] MEDS: HEPARIN 25,000UTS/250ML PREMIX 250 ML IV PRN (05:21)
[2021-09-04] MEDS: PROPOFOL 100 ML IV PRN ×3 (05:21→20:08)
[2021-09-04] MEDS: methylPREDNISolone SOD SUCC PF 125 MG/2 ML VIAL. IV SCH (06:02)
[2021-09-04] MEDS: LOSARTAN POTASSIUM 25 MG TABLET. PO SCH (10:08)
[2021-09-04] MEDS: POTASSIUM BICARB 20 MEQ EFFERVESCENT TABLET. PO SCH ×3 (10:08→21:00)
[2021-09-04] MEDS: CLOPIDOGREL BISULFATE 75 MG TABLET PO SCH (10:08)
[2021-09-04] MEDS: ASPIRIN CHEWABLE 81 MG TABLET. PO SCH (10:08)
--- NOTE | 2021-09-04 10:08 | PN ---
DATE: 09/04/2021 SUBJECTIVE: The patient continues to be sedated on propofol, fentanyl and Versed, although they are being titrated down. His heparin was on hold as Dr. Peralta was consulted for placement of a tracheostomy tube. PHYSICAL EXAMINATION: GENERAL: When I examined him this morning, he was pale, not jaundiced, cyanosed, no lymphadenopathy, no thyromegaly, no jugular venous distention. No limb edema. VITAL SIGNS: Her heart rate was 85, blood pressure was 176/94, temperature was 98.4, respiratory rate was 24 and oxygen saturation was 97% on FiO2 of 40%. HEAD, EYES, EARS, NOSE AND THROAT: Normocephalic, atraumatic. NECK: Supple. HEART: Normal first and second heart sounds. No gallop, rub or murmur. CHEST: Showed central trachea, equal bilateral chest expansion, air entry, vesicular breath sounds. I could not really appreciate any crepitation or rhonchi anteriorly. ABDOMEN: Distended, soft, nontender. NEUROLOGIC: He was heavily sedated. His intake was 3385, output was 3000. LABORATORY DATA: As of yesterday, his white cell count was 21.6, hemoglobin 11, hematocrit 34, MCV 90 and platelet count 378,000. His chemistry showed a serum sodium 142, potassium 4.7, chloride 100, bicarbonate 38, anion gap of 4, BUN of 40, creatinine 0.8. Estimated GFR was 97 mL per minute. His glucose 163, calcium 7.5. ASSESSMENT: 1. The patient is status post cardiac arrest, likely due to hypoxia. He had COVID-19 as well as acute myocardial infarction, apparently the patient went into ventricular tachycardia that was shocked and also went into ventricular fibrillation, treated with CPR and epinephrine with return of spontaneous circulation. 2. Acute on chronic hypoxic respiratory failure. 3. Acute respiratory distress syndrome. 4. Acute exacerbation of chronic obstructive pulmonary disease. 5. COVID-19 pneumonia. 6. Atrial fibrillation with rapid ventricular response, rate controlled, currently on heparin drip. 7. Inferior ST segment elevation myocardial infarction. 8. Cardiogenic and septic shock. 9. The patient underwent cardiac catheterization for the second time, which revealed that the patient has recanalized his right coronary artery for which he was started on aspirin, Plavix and continued to be on heparin drip with a plan to do a high risk PCI and stent deployment given the large size of the vessel after he gets extubated and stabilized. PLAN: Obvious to continue with mechanical ventilation, wean as tolerated. Continue with Keppra for seizure disorder. Continue with his heparin, is on hold as Dr. Peralta was consulted for tracheostomy tube placement. I will contact his son for placement of a gastrostomy tube. I will also cut down his IV steroids further. Meanwhile, we will continue with IV antibiotic. HERBERT DR: Vannessa TID: [id number]
[2021-09-04] MEDS: levETIRAcetam 500 MG/5 ML ORAL SOLUTION. PEG SCH ×2 (10:09→21:00)
[2021-09-04] MEDS: FAMOTIDINE 20 MG/2 ML VIAL IVP SCH ×2 (10:09→20:59)
[2021-09-04] MEDS: AMIODARONE HCL 200 MG TABLET. PO SCH (10:10)
--- NOTE | 2021-09-04 10:29 | PDOC ---
PULMONARY PROGRESS NOTES DATE: 09/04/21 TIME: 10:29 Subjective No overnight events patient sedated Currently on assist control ventilation Vitals Vital Signs Date Time Temp Pulse Resp B/P (MAP) Pulse Ox O2 Delivery O2 Flow Rate FiO2 09/04/21 10:10 82 173/99 09/04/21 08:13 97 Ventilator 09/04/21 06:00 24 09/04/21 04:00 98.4 98.4 Comments ros unable to obtain sedated on vent HEENT: Other (nc at perrl nose clear orally intubated neck no lad no thyromegaly) Lungs: Crackles Cardiovascular: S1, S2 Abdomen: Soft, Non-tender Extremities: No Edema Skin: Warm Labs Laboratory Tests Test 09/03/21 05:25 09/03/21 08:00 White Blood Count 21.6 x10^3/uL (4.0-11.0) Red Blood Count 3.80 x10^6/uL (4.30-5.70) Hemoglobin 10.8 g/dL (13.0-17.5) Hematocrit 34.1 % (39.0-53.0) Mean Corpuscular Volume 90 fL (79-100) Mean Corpuscular Hemoglobin 28 pg (25-35) Mean Corpuscular Hemoglobin Concent 32 g/dL (31-37) Red Cell Distribution Width 14.8 % (11.5-14.5) Platelet Count 378 x10^3/uL (140-400) Heparin Anti-Xa Act, Unfractionated 0.59 IU/mL (0.30-0.70) Sodium Level 142 mmol/L (136-145) Potassium Level 4.7 mmol/L (3.5-5.1) Chloride Level 100 mmol/L (98-107) Carbon Dioxide Level 38 mmol/L (21-32) Anion Gap 4 (6-14) Blood Urea Nitrogen 40 mg/dL (8-26) Creatinine 0.8 mg/dL (0.7-1.3) Estimated GFR (Cockcroft-Gault) 97.6 Glucose Level 163 mg/dL (70-99) Calcium Level 7.5 mg/dL (8.5-10.1) O2 Saturation 94 % (92-99) Arterial Blood pH 7.43 (7.35-7.45) Arterial Blood pCO2 at Patient Temp 56 mmHg (35-46) Arterial Blood pO2 at Patient Temp 72 mmHg (65-108) Arterial Blood HCO3 36 mmol/L (21-28) Arterial Blood Base Excess 10 mmol/L (-3-3) FiO2 40 Impression . 1. Acute hypoxic respiratory failure secondary to COVID-19 pneumonia, acute respiratory distress syndrome and possible underlying fibrosis and emphysema., Extubated 08/20, reintubated 08/23 status post CODE BLUE 2. Abnormal CT chest 3. Hypernatremia 4. Suspected underlying severe chronic obstructive pulmonary disease. 5. COVID-19 viral pneumonia.--- Covid recovered 6. Abnormal chest x-ray with bilateral diffuse infiltrates related to COVID-19 viral pneumonia.--- Covid recovered 7. Patient reintubated 08/23, status post CODE BLUE 8. Abnormal x-ray from 08/15, possible ARDS, possible pulmonary edema, possible aspiration 9. ST elevation NE status post intra-aortic balloon pump--08/23/2021 10. Emergent cardiac catheterization revealing 90% stenotic lesion 11. Echocardiogram revealing ejection fraction of 35 to 40% pulmonary artery pressure of 34 inferior septal wall hypokinesis 12. Bacteremia Staph epidermidis Cardiac catheterization 08/30 Due to large vessel size a decision was made to defer stenting at this time for continued medical therapy. After the patient is fully extubated and depending on symptoms could consider PCI. Conclusion 1. Recanalized right coronary artery with brisk blood flow. 2. Residual proximal 70% RCA stenosis with significant ectasia of the RCA measuring up to 6.25 mm. 3. Normal left ventricular filling pressures. Recommendations 1. Continue aspirin, Plavix and heparin drip. 2. Continue plans for extubation. 3. After patient is extubated and stabilized depending on symptoms we will consider high risk PCI with specialized MegaTron stent given the large vessel size. Plan . Updated 09/04 Discussed with at bedside Trach tomorrow Possible PEG Continue current support Suspect patient will require LTAC, difficult weaning Follow cardiology input Antibiotics per ID Monitor electrolytes CCT of 30 minutes Updated 09/02 cont vent support setting reviewed, decrease sedation sbt when more awake elevate hob Repeat LHC showed recanalized right coronary artery with brisk blood flow. Residual proximal 70% RCA stenosis with significant ectasia of the RCA measuring up to 6.25 mm. After patient is extubated and stabilized depending on symptoms we will consider high risk PCI with specialized MegaTron stent given the large vessel size If patient is not extubated by next week sometime, may require a trach, dr roberson discussed with at the bedside Patient currently off pressors Continue Zosyn zyvox per maria isabel Rust monitor k, cr discussed w REBECCA Campuzano MD Sep 04, 2021 10:29
[2021-09-04] MEDS: FUROSEMIDE 40 MG/4 ML VIAL. IVP SCH (10:50)
--- NOTE | 2021-09-04 11:14 | PDOC ---
TETO DIAZ SAP MANAGER 09/04/21 1114: CARDIO Progress Notes Date and Time Date of Service 09/04/21 Time of Evaluation 1115 Subjective Subjective: Other (intubated ) Vitals Vitals Vital Signs Date Time Temp Pulse Resp B/P (MAP) Pulse Ox O2 Delivery O2 Flow Rate FiO2 09/04/21 10:10 82 173/99 09/04/21 08:13 97 Ventilator 09/04/21 06:00 24 09/04/21 04:00 98.4 98.4 Weight Weight [ ] Input and Output Intake and Output Intake and Output 09/04/21 07:00 Intake Total 2961.83 ml Output Total 4055 ml Balance -1093.17 ml IV Total 1013.83 ml Tube Feeding 1673 ml Other 275 ml Output Urine Total 4055 ml Gastric Drainage Total 0 ml Microbiology Micro Microbiology 08/24/21 Blood Culture - Final, Complete NO GROWTH AFTER 5 DAYS 08/23/21 Respiratory Culture Gram Stain - Final, Complete 08/23/21 Respiratory Culture - Final, Complete Physical Exam HEENT: Other (supple ) Chest: Symmetric LUNGS: Other (MV) Heart: RRR (SR ) Abdomen: Other (soft ) Extremities: Other (no edema. Eschar to left foot, second toe) Neurology: other (sedated ) Assessment Assessment 1. S/P cardiac arrest; multifactorial. Noted with VT shock x1. approximately <3 min to ROSC. Tele with brief NSVT, otherwise is SR 2. Acute on chronic respiratory failure with COVID PNA, ARDS. unable to be weaned from vent. trach planned 3. CAD, inferior STEMI with embolic disease. Initial LHC with thrombotic distal right posterior descending artery and right posterior lateral artery occlusion. There was moderate 50% proximal and 90% mid stenosis appeared to have significant thrombotic burden with ectasia and dilation of the coronary artery. Repeat LHC showed recanalized RCA with brisk blood flow. Residual proximal 70% RCA stenosis with significant ectasia of the RCA measuring up to 6.25 mm. 4. Cardiogenic shock; resolved. IABP removed 5. Acute on chronic systolic CHF, ICM: EF at 35-40% 6. AFIB RVR: presently SR/SB 7. Hypertension; controlled 8. Hyperlipidemi; statin 9. Encephalopathy with possible seizure; on Keppra 10. Black distal phalanx to left 2nd toe: possibly r/t to covid-19. no significnat PAD per duplex Recommendations Will discontinued heparin gtt for planned tracheostomy tomorrow Secondary prevention, continue DAPT Resume heparin when clear from a surgical standpoint Can hold DAPT for PEG placement, following resumption of heparin gtt Continue Amiodarone for rhythm maintenance HF optimization with Lasix, spironolactone, losartan. Add low dose BB, monitor for bradycardia Ongoing support, pulmonary optimization Justicifation of Admission Dx: Justifications for Admission: Justification of Admission Dx: N/A TEDDY ANGLIN MD 09/05/21 0745: CARDIO Progress Notes Plan Plan Late entry for 09/04/2021 Patient seen and examined. Agree with above nurse practitioner note. We will discuss with surgical colleagues and GI colleagues regarding anticoagulation and antiplatelet therapy modification during the perioperative period for the tracheostomy and PEG tube placement. TETO DIAZ APRN Sep 04, 2021 11:14 TEDDY ANGLIN MD Sep 05, 2021 07:45
--- NOTE | 2021-09-04 12:15 | PDOC ---
Infectious Disease Note Subjective: Subjective Patient intubated/sedated Does open eyes to verbal stimuli Discussed with RN Vital Signs: Vital Signs Vital Signs Date Time Temp Pulse Resp B/P (MAP) Pulse Ox O2 Delivery O2 Flow Rate FiO2 09/04/21 10:10 82 173/99 09/04/21 08:13 97 Ventilator 09/04/21 06:00 24 09/04/21 04:00 98.4 98.4 Physical Exam: PHYSICAL EXAM GENERAL: Intubated and sedated, opens eyes to verbal stimuli HEENT: No conjunctival petechia. ETT, OGT tube present. NECK: Supple. LUNGS: Coarse breath sounds in the bases, otherwise clear. HEART: S1, S2, irregular. I could not appreciate any murmurs. ABDOMEN: Soft, nontender, nondistended. Bowel sounds present. GENITOURINARY: Berumen in place. EXTREMITIES: Present no cyanosis. Right groin catheter removed, right upper extremity PICC line placed on 08/23/2021. DERMATOLOGIC: Warm, dry, no generalized rash. NEUROLOGIC: Unable to assess. Medications: Inpatient Meds: Medications reviewed. Objective: Assessment: Fever multifactorial s/p code ,possible aspiration pattern improved MRSE Bacterermia 08/22/2021.Central line was pulled out Acute hypoxic respiratory failure. COVID-19 pneumonia. Chronic obstructive pulmonary disease with possible underlying pulmonary fibrosis, aspiration pneumonia. Status post code atrial fibrillation with rapid ventricular response, ventricular fibrillation, status post defibrillation, epinephrine, bicarbonate drip, status post cardiac catheterization. IABP placement. Severe protein-calorie malnutrition. Abnormal liver function tests, likely shock liver. Anemia. Encephalopathy likely anoxic .Electrolyte abn Leucocytosis on steroids Plan: Plan of Care cont Zosyn. supportive care check c diff pcr local picc line care Discussed with RN. SOFIA LOWERY MD Sep 04, 2021 12:15
--- NOTE | 2021-09-04 12:35 | PDOC2 ---
GI CONSULT Date of Service: DATE: 09/04/21 TIME: 12:07 Reason For Consult: PEG HPI: HPI: 65 y/o male admitted from [facility] on 07/31/21 w/ COVID pneumonia/resp failure. Hospital course complicated by cardiac arrest, left heart cath x 2 w/ CAD/embolic disease - on Plavix, ASA, and Heparin, also possible seizure activity. History from significant other at bedside. Occasional reflux/heartburn after eating late at night. No other chronic GI symptoms. No previous EGD. Has had previous colonoscopy (unclear where performed) that was reportedly normal and also "did the at home kit." No GB, pancreas, or PUD history. Significant other reports he drinks alcohol heavily so she wonders about liver disease. No NSAIDs. PMH: PMH: COPD, depression FH: Family History: CAD Social History: ALCOHOL: heavy ROS: unable to obtain Vitals: Vitals: Vital Signs Date Time Temp Pulse Resp B/P (MAP) Pulse Ox O2 Delivery O2 Flow Rate FiO2 09/04/21 10:10 82 173/99 09/04/21 08:13 97 Ventilator 09/04/21 06:00 24 09/04/21 04:00 98.4 98.4 Allergies: Coded Allergies: No Known Drug Allergies (Unverified , 07/31/21) Medications: see EMR Imaging: Imaging: Echo 08/23 <Conclusion> The left ventricle is normal size. The ejection fraction is moderately decreased. LV ejection fraction is 35 to 40%. There is inferior septal hypokinesis. There is mild concentric left ventricular hypertrophy. Doppler and Color Flow revealed no significant aortic regurgitation. There is no significant aortic valvular stenosis. Doppler and Color Flow revealed mild mitral valve regurgitation. Doppler and Color Flow revealed mild tricuspid regurgitation. The PA pressure was estimated at 34 mmHg. Coronary Arteriogram Conclusion 1. Inferior STEMI secondary to embolic occlusion likely in the setting of coronavirus pneumonia 2. Two-vessel coronary artery disease involving the LAD and RCA 3. Acute decompensated systolic and diastolic heart failure with cardiogenic shock requiring initiation of inotropic support and successful placement of a 40 cc intra-aortic balloon pump via the right common femoral artery 4. Failed right coronary artery revascularization secondary to excessive thrombotic burden Recommendations 1. Continue anticoagulation with heparin drip 2. Continue antiplatelet therapy with aspirin and Plavix. 3. Depending on patient's neurologic recovery given his critically ill status we will reconsider PCI of the proximal RCA and reevaluation in 48 to 72 hours. LE Duplex 08/24 <Conclusion> 1. No significant left lower extremity occlusive disease. Cardiac Cath 08/30 Conclusion 1. Recanalized right coronary artery with brisk blood flow. 2. Residual proximal 70% RCA stenosis with significant ectasia of the RCA measuring up to 6.25 mm. 3. Normal left ventricular filling pressures. Recommendations 1. Continue aspirin, Plavix and heparin drip. 2. Continue plans for extubation. 3. After patient is extubated and stabilized depending on symptoms we will consider high risk PCI with specialized MegaTron stent given the large vessel size. CXR 08/31 IMPRESSION: 1. Stable diffuse bilateral opacities. 2. Stable small pleural effusions. 3. Stable life support devices. PE: GEN: intubated HEENT: some bleeding from IV LUNGS: vent/diminished HEART: RRR ABD: quiet, soft, non-distended, OG feeds EXTREMITY/SKIN: SCDs NEURO/PSYCH: sedated A/P: A/P: COVID (recovered)/resp failure - trach considered S/p cardiac arrest, CAD - heart cath x 2 as above, on ASA, Plavix, Heparin ?seizure/encephalopathy - remains sedated MRSE bacteremia - interval blood cx neg. H/o reflux - on IV H2 heather CRC screen - had previous colonoscopy at some point H/o alcohol misuse -- Discussed PEG procedure and possible risks w/ significant other Zuleyma who reports pt's son London is DPOA and already gave permission for PEG when discussed w/ Dr. Dangelo. However, difficult situation - would need to be off Plavix for ~5 days prior to PEG and 1-2 days after, and also would need to be off Heparin a few hours before procedure. GEORGIA GUILLEN Sep 04, 2021 12:35
[2021-09-04] MEDS: SPIRONOLACTONE 25 MG TABLET PO SCH (13:00)
--- NOTE | 2021-09-04 13:19 | EKG ---
[facility] [address] [place] [address] Test Date: 2021-09-04 Test Time: 13:02:09 Pat Name: JAYY JEFFRIES Department: Room: 109 1 Gender: M Marketing Information Coordinator: PAT : 1955 Requested By: TETO DIAZ Order Number: [id number] Reading MD: Chaparro Alanis Measurements Intervals Freedom Rate: 66 P: 29 ID: [id number] QRS: -35 QRSD: 76 T: 41 QT: 454 QTc: 478 Interpretive Statements SINUS RHYTHM ABNORMAL LEFT AXIS DEVIATION LOW LIMB LEAD VOLTAGE QRS(T) CONTOUR ABNORMALITY CONSISTENT WITH ANTEROLATERAL INFARCT AGE UNDETERMINED CONSISTENT WITH INFERIOR INFARCT AGE UNDETERMINED Electronically Signed On 09-09-2021 18:22:22 FOAM FABRICATOR by Chaparro Alanis
--- NOTE | 2021-09-04 13:35 | PDOC ---
SURGICAL PROGRESS NOTE DATE: 09/04/21 TIME: 13:33 Subjective Pt intubated and sedated Vital Signs Vital Signs Date Time Temp Pulse Resp B/P (MAP) Pulse Ox O2 Delivery O2 Flow Rate FiO2 09/04/21 11:10 97 Ventilator 09/04/21 10:10 82 173/99 09/04/21 06:00 24 09/04/21 04:00 98.4 98.4 I&O Intake and Output 09/04/21 07:00 Intake Total 2961.83 ml Output Total 4055 ml Balance -1093.17 ml IV Total 1013.83 ml Tube Feeding 1673 ml Other 275 ml Output Urine Total 4055 ml Gastric Drainage Total 0 ml General: No acute distress HEENT: Other (orally intubated) Labs Laboratory Tests Test 09/03/21 05:25 09/03/21 08:00 White Blood Count 21.6 x10^3/uL (4.0-11.0) Red Blood Count 3.80 x10^6/uL (4.30-5.70) Hemoglobin 10.8 g/dL (13.0-17.5) Hematocrit 34.1 % (39.0-53.0) Mean Corpuscular Volume 90 fL (79-100) Mean Corpuscular Hemoglobin 28 pg (25-35) Mean Corpuscular Hemoglobin Concent 32 g/dL (31-37) Red Cell Distribution Width 14.8 % (11.5-14.5) Platelet Count 378 x10^3/uL (140-400) Heparin Anti-Xa Act, Unfractionated 0.59 IU/mL (0.30-0.70) Sodium Level 142 mmol/L (136-145) Potassium Level 4.7 mmol/L (3.5-5.1) Chloride Level 100 mmol/L (98-107) Carbon Dioxide Level 38 mmol/L (21-32) Anion Gap 4 (6-14) Blood Urea Nitrogen 40 mg/dL (8-26) Creatinine 0.8 mg/dL (0.7-1.3) Estimated GFR (Cockcroft-Gault) 97.6 Glucose Level 163 mg/dL (70-99) Calcium Level 7.5 mg/dL (8.5-10.1) O2 Saturation 94 % (92-99) Arterial Blood pH 7.43 (7.35-7.45) Arterial Blood pCO2 at Patient Temp 56 mmHg (35-46) Arterial Blood pO2 at Patient Temp 72 mmHg (65-108) Arterial Blood HCO3 36 mmol/L (21-28) Arterial Blood Base Excess 10 mmol/L (-3-3) FiO2 40 Assessment/Plan Respiratory failure TO OR tomorrow for tracheostomy placement R/R/B/A d/w pt's SO at bedside and son on phone. Risks, including, but not limited to: bleeding, infection, damage to surrounding structures, risk of anesthesia. They appear to understand, their questions are answered and they elect to proceed Justicifation of Admission Dx: Justifications for Admission: Justification of Admission Dx: N/A TERESA ODEN MD Sep 04, 2021 13:35
--- NOTE | 2021-09-04 15:37 | NUR ---
SS following up with discharge planning. SS reviewed pt chart and discussed with pt RN. Pt is currently on the vent at 40%. COVID19 recovered. Pt on IV Zosyn, IV Solu-Medrol, and IV Lasix. Pt on Versed, Fentanyl, Propofol, and Heparin. Not ready. Pt scheduled for Trach placement tomorrow. SS will continue to follow for discharge planning.
[2021-09-04] MEDS: methylPREDNISolone SOD SUCC PF 40 MG/ML VIAL. IV SCH ×2 (18:09→22:02)
--- NOTE | 2021-09-04 19:39 | NUR ---
Dr Peralta in late afternoon w consult for trach. Information to SO as well as son [place] Tentative time for procedure [id number] 09/05 . Permit signed and charted. Dr Julian in earlier . Conversation on am procedure and use of anticoagulant when surgery done explained to Zuleyma. Communication w Denise Peralta on meds and suggestions for Rx before ,during ,and after trach placement. Overt oozing DENISE PICC sight observed past 12 H . No dessing change at this time. Area appears o be clotted off.
[2021-09-04] MEDS: ATORVASTATIN CALCIUM 40 MG TABLET. PO SCH (20:59)
[2021-09-04] MEDS: METOPROLOL TART IMMED RELEASE 25 MG TABLET. PO SCH (20:59)
[2021-09-04] MEDS: fentaNYL HIGH DOSE PCA 55 ML IV PRN (21:01)
[2021-09-05] VITALS (29 sets, daily range): BP systolic 59–233; BP diastolic 35–155
[2021-09-05] MEDS: PROPOFOL 100 ML IV PRN (02:44)
--- NOTE | 2021-09-05 03:00 | NUR ---
0200 Pt bp dropped to 76/54 from 176/102 and heart dropped to 45 from 68. All sedation stopped at this time and 250ml fluid bolus given. 0230 blood pressure improving and heart rate back into the 60's.
[2021-09-05 05:41] LABS: HEMATOCRIT 35.9 % (39.0-53.0); HEMOGLOBIN 11.6 g/dL (13.0-17.5); RED BLOOD COUNT 4.05 x10^6/uL (4.30-5.70); RED CELL DISTRIBUTION WIDTH 15.3 % (11.5-14.5); WHITE BLOOD COUNT 29.1 x10^3/uL (4.0-11.0)
[2021-09-05 05:55] LABS: CALCIUM 7.9 mg/dL (8.5-10.1); CREATININE 0.8 mg/dL (0.7-1.3); GFR 97.6; POTASSIUM 5.2 mmol/L (3.5-5.1)
[2021-09-05] MEDS ORDERED: HYDROmorphone 2 MG/ML INJ. IVP PRN (06:00)
[2021-09-05] MEDS ORDERED: fentaNYL PF VIAL 100 MCG/2 ML VIAL IVP PRN ×2 (06:00)
[2021-09-05] MEDS ORDERED: IV RINGERS,LACTATED 1000ML 1,000 ML IV SCH (06:00)
[2021-09-05] MEDS ORDERED: PROCHLORPERAZINE 10 MG/2 ML VIAL. IVP PRN (06:00)
[2021-09-05] MEDS ORDERED: MORPHINE SULFATE 2 MG/ML INJ. IVP PRN (06:00)
--- NOTE | 2021-09-05 06:00 | NUR ---
Pt noted to have dewey blood running from the left side of his mouth and down his chin. Pt suctioned and a large amount of blood suctioned from the back of pts throat. No obvious injury noted to inside of mouth or tongue. Labs have been drawn, awaiting results.
[2021-09-05] MEDS: PIPERACILLIN/TAZOBACTAM 4.5 GM in IV DEXTROSE 5% 100ML 100 ML IV SCH ×3 (06:10→19:39)
[2021-09-05] MEDS: methylPREDNISolone SOD SUCC PF 40 MG/ML VIAL. IV SCH ×3 (06:10→22:07)
[2021-09-05] MEDS: MIDAZOLAM 100mg/100ml NS BAG 100 ML IV PRN ×2 (06:21→21:51)
--- NOTE | 2021-09-05 07:15 | NUR ---
Giving day nurse report, enter room and pt noted to have blood running from right nare and out of mouth. Blood suctioned from back of throat and from right nare. Hemoglobin stable, protime Paty BECKMAN RN will inform doctors of pt condition.
[2021-09-05] MEDS: CLOPIDOGREL BISULFATE 75 MG TABLET PO SCH (08:00)
[2021-09-05] MEDS ORDERED: IV NORMAL SALINE 500ML BAG 500 ML IV ONE (08:00)
[2021-09-05] MEDS: ASPIRIN CHEWABLE 81 MG TABLET. PO SCH (08:00)
[2021-09-05] MEDS: levETIRAcetam 500 MG/5 ML ORAL SOLUTION. PEG SCH ×2 (09:00→21:00)
[2021-09-05] MEDS: SPIRONOLACTONE 25 MG TABLET PO SCH (09:00)
[2021-09-05] MEDS: LOSARTAN POTASSIUM 25 MG TABLET. PO SCH (09:00)
[2021-09-05] MEDS: AMIODARONE HCL 200 MG TABLET. PO SCH (09:00)
[2021-09-05] MEDS: FUROSEMIDE 40 MG/4 ML VIAL. IVP SCH (09:00)
[2021-09-05] MEDS: FAMOTIDINE 20 MG/2 ML VIAL IVP SCH ×2 (09:00→21:08)
[2021-09-05] MEDS: POTASSIUM BICARB 20 MEQ EFFERVESCENT TABLET. PO SCH ×2 (09:00→14:00)
[2021-09-05] MEDS: METOPROLOL TART IMMED RELEASE 25 MG TABLET. PO SCH (09:00)
[2021-09-05] MEDS ORDERED: NOREPINEPHRINE VIAL 8 MG in IV DEXTROSE 5% 250 ML IV SCH (09:30)
--- NOTE | 2021-09-05 10:17 | PDOC ---
Date of Service: DATE: 09/05/21 TIME: 10:12 Subjective: Subjective: Significant other present. Objective: Objective: D/w nurse - nosebleed, NG out, hypotensive - not sure if to proceed w/ tracheostomy today as previously discussed. Vital Signs: Vital Signs Date Time Temp Pulse Resp B/P (MAP) Pulse Ox O2 Delivery O2 Flow Rate FiO2 09/05/21 08:03 99 Ventilator 09/05/21 06:00 75 22 162/96 09/05/21 04:00 98.4 98.4 Labs: Laboratory Tests Test 09/05/21 00:01 09/05/21 05:30 Glucose (Fingerstick) 163 mg/dL White Blood Count 29.1 x10^3/uL Red Blood Count 4.05 x10^6/uL Hemoglobin 11.6 g/dL Hematocrit 35.9 % Mean Corpuscular Volume 89 fL Mean Corpuscular Hemoglobin 29 pg Mean Corpuscular Hemoglobin Concent 32 g/dL Red Cell Distribution Width 15.3 % Platelet Count 346 x10^3/uL Heparin Anti-Xa Act, Unfractionated < 0.10 IU/mL Sodium Level 139 mmol/L Potassium Level 5.2 mmol/L Chloride Level 99 mmol/L Carbon Dioxide Level 32 mmol/L Anion Gap 8 Blood Urea Nitrogen 41 mg/dL Creatinine 0.8 mg/dL Estimated GFR (Cockcroft-Gault) 97.6 Glucose Level 141 mg/dL Calcium Level 7.9 mg/dL Magnesium Level 2.5 mg/dL PE: GEN: intubated HEENT: nose packed, NG out LUNGS: vent/clears HEART: RR ABD: soft, non-distended NEURO/PSYCH: sedated A/P: COVID (recovered)/resp failure, s/p cardiac arrest/CAD, encephalopathy -- Need for anticoagulation problematic for PEG. Less stable today w/ epistaxis, hypotension. Will follow. Justicifation of Admission Dx: Justifications for Admission: Justification of Admission Dx: N/A GEORGIA GUILLEN Sep 05, 2021 10:17
[2021-09-05 10:25] LABS: PROTHROMBIN TIME PATIENT 12.9 SEC (11.7-14.0)
--- NOTE | 2021-09-05 10:49 | PDOC ---
PULMONARY PROGRESS NOTES DATE: 09/05/21 TIME: 10:49 Subjective Hemodynamically unstable Received therapy this morning Short course of CODE BLUE Chest compressions x4 Did not undergo defibrillation Vitals Vital Signs Date Time Temp Pulse Resp B/P (MAP) Pulse Ox O2 Delivery O2 Flow Rate FiO2 09/05/21 08:03 99 Ventilator 09/05/21 06:00 75 22 162/96 09/05/21 04:00 98.4 98.4 Comments ros unable to obtain sedated on vent HEENT: Other (nc at perrl nose clear orally intubated neck no lad no thyromegaly) Lungs: Crackles Cardiovascular: S1, S2 Abdomen: Soft, Non-tender Extremities: No Edema Skin: Warm Labs Laboratory Tests Test 09/05/21 00:01 09/05/21 05:30 Glucose (Fingerstick) 163 mg/dL (70-99) White Blood Count 29.1 x10^3/uL (4.0-11.0) Red Blood Count 4.05 x10^6/uL (4.30-5.70) Hemoglobin 11.6 g/dL (13.0-17.5) Hematocrit 35.9 % (39.0-53.0) Mean Corpuscular Volume 89 fL (79-100) Mean Corpuscular Hemoglobin 29 pg (25-35) Mean Corpuscular Hemoglobin Concent 32 g/dL (31-37) Red Cell Distribution Width 15.3 % (11.5-14.5) Platelet Count 346 x10^3/uL (140-400) Heparin Anti-Xa Act, Unfractionated < 0.10 IU/mL (0.30-0.70) Sodium Level 139 mmol/L (136-145) Potassium Level 5.2 mmol/L (3.5-5.1) Chloride Level 99 mmol/L (98-107) Carbon Dioxide Level 32 mmol/L (21-32) Anion Gap 8 (6-14) Blood Urea Nitrogen 41 mg/dL (8-26) Creatinine 0.8 mg/dL (0.7-1.3) Estimated GFR (Cockcroft-Gault) 97.6 Glucose Level 141 mg/dL (70-99) Calcium Level 7.9 mg/dL (8.5-10.1) Magnesium Level 2.5 mg/dL (1.8-2.4) Laboratory Tests Test 09/05/21 00:01 09/05/21 05:30 Glucose (Fingerstick) 163 mg/dL (70-99) White Blood Count 29.1 x10^3/uL (4.0-11.0) Red Blood Count 4.05 x10^6/uL (4.30-5.70) Hemoglobin 11.6 g/dL (13.0-17.5) Hematocrit 35.9 % (39.0-53.0) Mean Corpuscular Volume 89 fL (79-100) Mean Corpuscular Hemoglobin 29 pg (25-35) Mean Corpuscular Hemoglobin Concent 32 g/dL (31-37) Red Cell Distribution Width 15.3 % (11.5-14.5) Platelet Count 346 x10^3/uL (140-400) Heparin Anti-Xa Act, Unfractionated < 0.10 IU/mL (0.30-0.70) Sodium Level 139 mmol/L (136-145) Potassium Level 5.2 mmol/L (3.5-5.1) Chloride Level 99 mmol/L (98-107) Carbon Dioxide Level 32 mmol/L (21-32) Anion Gap 8 (6-14) Blood Urea Nitrogen 41 mg/dL (8-26) Creatinine 0.8 mg/dL (0.7-1.3) Estimated GFR (Cockcroft-Gault) 97.6 Glucose Level 141 mg/dL (70-99) Calcium Level 7.9 mg/dL (8.5-10.1) Magnesium Level 2.5 mg/dL (1.8-2.4) Impression . 1. Acute hypoxic respiratory failure secondary to COVID-19 pneumonia, acute respiratory distress syndrome and possible underlying fibrosis and emphysema., Extubated 08/20, reintubated 08/23 status post CODE BLUE/semi-CODE BLUE on 09/[address] chest 3. Hypernatremia 4. Suspected underlying severe chronic obstructive pulmonary disease. 5. COVID-19 viral pneumonia.--- Covid recovered 6. Abnormal chest x-ray with bilateral diffuse infiltrates related to COVID-19 viral pneumonia.--- Covid recovered 7. Patient reintubated 08/23, status post CODE BLUE 8. Abnormal x-ray from 08/15, possible ARDS, possible pulmonary edema, possible aspiration 9. ST elevation [place] status post intra-aortic balloon pump--08/23/2021 10. Emergent cardiac catheterization revealing 90% stenotic lesion 11. Echocardiogram revealing ejection fraction of 35 to 40% pulmonary artery pressure of 34 inferior septal wall hypokinesis 12. Bacteremia Staph epidermidis Cardiac catheterization 08/30 Due to large vessel size a decision was made to defer stenting at this time for continued medical therapy. After the patient is fully extubated and depending on symptoms could consider PCI. Conclusion 1. Recanalized right coronary artery with brisk blood flow. 2. Residual proximal 70% RCA stenosis with significant ectasia of the RCA measuring up to 6.25 mm. 3. Normal left ventricular filling pressures. Recommendations 1. Continue aspirin, Plavix and heparin drip. 2. Continue plans for extubation. 3. After patient is extubated and stabilized depending on symptoms we will consider high risk PCI with specialized MegaTron stent given the large vessel size. Plan . Updated 09/05 Patient had a semi-CODE BLUE this morning, trach on hold Now with epistaxis Continue assist-control ventilation Follow cardiology input Antibiotics per ID Monitor labs Discussed with at the bedside CCT 30 minutes Updated 09/04 Discussed with at bedside Trach tomorrow Possible PEG Continue current support Suspect patient will require LTAC, difficult weaning Follow cardiology input Antibiotics per ID Monitor electrolytes CCT of 30 minutes REBECCA DUGGAN MD Sep 05, 2021 10:49
--- NOTE | 2021-09-05 11:08 | PDOC ---
TETO DIAZ TECHNOLOGY PROGRAM MANAGER 09/05/21 1108: CARDIO Progress Notes Date and Time Date of Service 09/05/21 Time of Evaluation 1130 Subjective Subjective: Other (intubated ) Comments: patient with brief episode of bradycardia with loss of pulse. Vitals Vitals Vital Signs Date Time Temp Pulse Resp B/P (MAP) Pulse Ox O2 Delivery O2 Flow Rate FiO2 09/05/21 09:00 51 61/39 09/05/21 08:03 99 Ventilator 09/05/21 06:00 22 09/05/21 04:00 98.4 98.4 Weight Weight [ ] Input and Output Intake and Output Intake and Output 09/05/21 07:00 Intake Total 2640 ml Output Total 5045 ml Balance -2405 ml IV Total 662 ml Tube Feeding 1578 ml Other 400 ml Output Urine Total 4545 ml Stool Total 500 ml Gastric Drainage Total 0 ml Laboratory Labs Laboratory Tests Test 09/05/21 00:01 09/05/21 05:30 Glucose (Fingerstick) 163 mg/dL (70-99) White Blood Count 29.1 x10^3/uL (4.0-11.0) Red Blood Count 4.05 x10^6/uL (4.30-5.70) Hemoglobin 11.6 g/dL (13.0-17.5) Hematocrit 35.9 % (39.0-53.0) Mean Corpuscular Volume 89 fL (79-100) Mean Corpuscular Hemoglobin 29 pg (25-35) Mean Corpuscular Hemoglobin Concent 32 g/dL (31-37) Red Cell Distribution Width 15.3 % (11.5-14.5) Platelet Count 346 x10^3/uL (140-400) Heparin Anti-Xa Act, Unfractionated < 0.10 IU/mL (0.30-0.70) Sodium Level 139 mmol/L (136-145) Potassium Level 5.2 mmol/L (3.5-5.1) Chloride Level 99 mmol/L (98-107) Carbon Dioxide Level 32 mmol/L (21-32) Anion Gap 8 (6-14) Blood Urea Nitrogen 41 mg/dL (8-26) Creatinine 0.8 mg/dL (0.7-1.3) Estimated GFR (Cockcroft-Gault) 97.6 Glucose Level 141 mg/dL (70-99) Calcium Level 7.9 mg/dL (8.5-10.1) Magnesium Level 2.5 mg/dL (1.8-2.4) Microbiology Micro Microbiology 08/24/21 Blood Culture - Final, Complete NO GROWTH AFTER 5 DAYS 08/23/21 Respiratory Culture Gram Stain - Final, Complete 08/23/21 Respiratory Culture - Final, Complete Physical Exam HEENT: Other (supple ) Chest: Symmetric LUNGS: Other (MV) Heart: RRR (SR ) Abdomen: Other (soft ) Extremities: Other (no edema. Eschar to left foot, second toe) Neurology: other (sedated ) Assessment Assessment 1. S/P cardiac arrest; multifactorial. Noted with VT shock x1. approximately <3 min to ROSC. 2. Acute on chronic respiratory failure with COVID PNA, ARDS. unable to be wean ed from vent. trach planned 3. CAD, inferior STEMI with embolic disease. Initial LHC with thrombotic distal right posterior descending artery and right posterior lateral artery occlusion. There was moderate 50% proximal and 90% mid stenosis appeared to have significant thrombotic burden with ectasia and dilation of the coronary artery. Repeat LHC showed recanalized RCA with brisk blood flow. Residual proximal 70% RCA stenosis with significant ectasia of the RCA measuring up to 6.25 mm. 4. Cardiogenic shock; IABP removed. Hypotension this morning. s/p fluid bolus. Levophed initiated 5. Acute on chronic systolic CHF, ICM: EF at 35-40% 6. AFIB RVR: Episode of bradycardia (lowest 31) with brief loss of pulse this morning requiring brief CPR, epi x1. HR now adequate; presently SR 7. Hyperlipidemia; statin 8. Black distal phalanx to left 2nd toe: possibly r/t to covid-19. no sign ificnat PAD per duplex Recommendations Discontinue Metoprolol Hold Lasix EKG, trop level now Repeat trop this afternoon. Resume heparin gtt. Post-pone trach until more stable. Further pending above Ongoing pulmonary optimization Justicifation of Admission Dx: Justifications for Admission: Justification of Admission Dx: N/A TEDDY ANGLIN MD 09/06/21 1032: CARDIO Progress Notes Plan Plan Late entry for 09/05/2021 Patient seen and examined. Agree with above nurse practitioner note. Discussed with family at bedside. Echocardiogram reviewed and consistent with old RCA infarct without any new obvious effusion or significant aneurysmal changes. Troponin is trivially elevated and downtrending again consistent with old infarct rather than any acute insults. Supportive care. Continue work-up for other etiologies including infection versus bleeding. Would favor continuation of aspirin and Plavix at this time TETO DIAZ APRN Sep 05, 2021 11:08 TEDDY ANGLIN MD Sep 06, 2021 10:32
--- NOTE | 2021-09-05 11:57 | PN ---
DATE: 09/05/2021 SUBJECTIVE: The patient apparently had a rough night yesterday, his heparin was discontinued; however, he became bradycardic and hypotensive and pulseless for a short period of time, he required CPR with return of circulation. He has continued to be heavily sedated and he was on Levophed for a short period of time. He received 500 mL bolus of normal saline. PHYSICAL EXAMINATION: GENERAL: When I saw him today, he was resting slightly propped up in bed, in no apparent respiratory distress. He was pale, no jaundice, cyanosis or thyromegaly. No jugular venous distention. No limb edema. VITAL SIGNS: His heart rate was 75, blood pressure was 162/96, temperature 98.4, respiratory rate was 22 and oxygen saturation was 99% on FiO2 of 40%. HEAD, EYES, EARS, NOSE, AND THROAT: Normocephalic, atraumatic. He has nasal packing as he has episodes of epistaxis on both sides, more on the right than left. He has orotracheal and orogastric tube. NECK: Supple. HEART: Normal first and second heart sounds. No gallop, rub or murmur. CHEST: Clear to auscultation, no crepitation or rhonchi. ABDOMEN: Distended, soft, nontender. NEUROLOGIC: He was heavily sedated. His intake over the last 24 hours was 2960, output was 4050. LABORATORY DATA: Lab work this morning showed a white cell count 29,000, hemoglobin 11.6, hematocrit 35.9, MCV 89 and platelet count . His chemistry this morning showed a serum sodium 139, potassium 5.2, chloride 99, bicarbonate 32, anion gap of 8, BUN 41, creatinine 0.8. Estimated GFR was 97, glucose 141, calcium was 7.9, magnesium was 2.5. He is off heparin drip. ASSESSMENT: 1. The patient is status post cardiac arrest, likely due to hypoxia. He had COVID-19 as well as acute myocardial infarction, apparently patient went into ventricular tachycardia that was shocked and also went into ventricular fibrillation, treated with CPR and epinephrine with return of spontaneous circulation. Yesterday he also developed severe bradycardia and hypotension and also period of aystole from where he was successfully resuscitated. 2. Acute on chronic hypoxic respiratory failure. 3. Acute respiratory distress syndrome. 4. Acute exacerbation of chronic obstructive pulmonary disease. 5. COVID-19 pneumonia. 6. Atrial fibrillation with rapid ventricular response that has rate controlled and now currently off heparin drip as well as Plavix and aspirin. 7. Inferior ST segment elevation myocardial infarction. 8. Cardiogenic as well as septic shock. 9. The patient underwent cardiac catheterization for second time, which revealed that the patient has recanalized his right coronary artery for which he was started on aspirin and Plavix and continued on heparin drip with a plan to do a high risk PCI and stent deployment given the large size of his vessel after he gets extubated and stabilized. PLAN: Plan is to obviously continue with mechanical ventilation, sedation. Continue with Keppra for seizure disorder. His heparin was discontinued as well as Plavix and aspirin as he is scheduled for tracheostomy, although Dr. Peralta has no plans to do any surgery today given that he is unstable. ALIZA/JAN DR: Vannessa TID: [id number]
--- NOTE | 2021-09-05 11:58 | EKG ---
[facility] [address] [place] [address] Test Date: 2021-09-05 Test Time: 11:54:11 Pat Name: JAYY JEFFRIES Department: Room: 109 1 Gender: M Set Decorator: PAT : 1955 Requested By: TETO DIAZ Order Number: [id number] Reading MD: Chaparro Alanis Measurements Intervals [place] Rate: 87 P: -28 ME: 134 QRS: -44 QRSD: 80 T: -42 QT: 360 QTc: 434 Interpretive Statements SINUS RHYTHM ABNORMAL LEFT AXIS DEVIATION LOW LIMB LEAD VOLTAGE ST-T WAVE CHANGES CONSISTENT WITH INFERIOR INFARCT PROBABLY OLD Electronically Signed On 09-09-2021 18:05:33 BLOOD TYPER by Chaparro Alanis
--- NOTE | 2021-09-05 12:31 | PDOC ---
SURGICAL PROGRESS NOTE DATE: 09/05/21 TIME: 12:26 Subjective Pt intubated and sedated, pulseless event earlier Vital Signs Vital Signs Date Time Temp Pulse Resp B/P (MAP) Pulse Ox O2 Delivery O2 Flow Rate FiO2 09/05/21 11:49 98 Ventilator 09/05/21 09:00 51 61/39 09/05/21 06:00 22 09/05/21 04:00 98.4 98.4 I&O Intake and Output 09/05/21 07:00 Intake Total 2640 ml Output Total 5045 ml Balance -2405 ml IV Total 662 ml Tube Feeding 1578 ml Other 400 ml Output Urine Total 4545 ml Stool Total 500 ml Gastric Drainage Total 0 ml General: No acute distress HEENT: Other (orally intubated, packed nose from epistaxis) Labs Laboratory Tests Test 09/05/21 00:01 09/05/21 05:30 Glucose (Fingerstick) 163 mg/dL (70-99) White Blood Count 29.1 x10^3/uL (4.0-11.0) Red Blood Count 4.05 x10^6/uL (4.30-5.70) Hemoglobin 11.6 g/dL (13.0-17.5) Hematocrit 35.9 % (39.0-53.0) Mean Corpuscular Volume 89 fL (79-100) Mean Corpuscular Hemoglobin 29 pg (25-35) Mean Corpuscular Hemoglobin Concent 32 g/dL (31-37) Red Cell Distribution Width 15.3 % (11.5-14.5) Platelet Count 346 x10^3/uL (140-400) Prothrombin Time 12.9 SEC (11.7-14.0) Prothromb Time International Ratio 1.0 (0.8-1.1) Heparin Anti-Xa Act, Unfractionated < 0.10 IU/mL (0.30-0.70) Sodium Level 139 mmol/L (136-145) Potassium Level 5.2 mmol/L (3.5-5.1) Chloride Level 99 mmol/L (98-107) Carbon Dioxide Level 32 mmol/L (21-32) Anion Gap 8 (6-14) Blood Urea Nitrogen 41 mg/dL (8-26) Creatinine 0.8 mg/dL (0.7-1.3) Estimated GFR (Cockcroft-Gault) 97.6 Glucose Level 141 mg/dL (70-99) Calcium Level 7.9 mg/dL (8.5-10.1) Magnesium Level 2.5 mg/dL (1.8-2.4) Laboratory Tests Test 09/05/21 00:01 09/05/21 05:30 Glucose (Fingerstick) 163 mg/dL (70-99) White Blood Count 29.1 x10^3/uL (4.0-11.0) Red Blood Count 4.05 x10^6/uL (4.30-5.70) Hemoglobin 11.6 g/dL (13.0-17.5) Hematocrit 35.9 % (39.0-53.0) Mean Corpuscular Volume 89 fL (79-100) Mean Corpuscular Hemoglobin 29 pg (25-35) Mean Corpuscular Hemoglobin Concent 32 g/dL (31-37) Red Cell Distribution Width 15.3 % (11.5-14.5) Platelet Count 346 x10^3/uL (140-400) Prothrombin Time 12.9 SEC (11.7-14.0) Prothromb Time International Ratio 1.0 (0.8-1.1) Heparin Anti-Xa Act, Unfractionated < 0.10 IU/mL (0.30-0.70) Sodium Level 139 mmol/L (136-145) Potassium Level 5.2 mmol/L (3.5-5.1) Chloride Level 99 mmol/L (98-107) Carbon Dioxide Level 32 mmol/L (21-32) Anion Gap 8 (6-14) Blood Urea Nitrogen 41 mg/dL (8-26) Creatinine 0.8 mg/dL (0.7-1.3) Estimated GFR (Cockcroft-Gault) 97.6 Glucose Level 141 mg/dL (70-99) Calcium Level 7.9 mg/dL (8.5-10.1) Magnesium Level 2.5 mg/dL (1.8-2.4) Assessment/Plan respiratory failure will hold trach today, given instability d/w pt's family Justicifation of Admission Dx: Justifications for Admission: Justification of Admission Dx: N/A TERESA ODEN MD Sep 05, 2021 12:31
--- NOTE | 2021-09-05 14:26 | PDOC ---
Infectious Disease Note Subjective: Subjective Patient remains critically ill s/p code blue briefly,chest compression on levophed Intubated d/w RN Vital Signs: Vital Signs Vital Signs Date Time Temp Pulse Resp B/P (MAP) Pulse Ox O2 Delivery O2 Flow Rate FiO2 09/05/21 11:49 98 Ventilator 09/05/21 09:00 51 61/39 09/05/21 06:00 22 09/05/21 04:00 98.4 98.4 Physical Exam: PHYSICAL EXAM GENERAL: Intubated and sedated, HEENT: No conjunctival petechia. ETT, NGT removed LUNGS: Coarse breath sounds in the bases, otherwise clear. HEART: S1, S2, irregular. I could not appreciate any murmurs. ABDOMEN: Soft, nontender, nondistended. Bowel sounds present. GENITOURINARY: Berumen in place. EXTREMITIES: Present no cyanosis. Right groin catheter removed, right upper extremity PICC line placed on 08/23/2021.Lt 2nd digit black DERMATOLOGIC: Warm, dry, no generalized rash. NEUROLOGIC: Unable to assess. Medications: Inpatient Meds: Medications reviewed. Labs: Lab Laboratory Tests Test 09/05/21 00:01 09/05/21 05:30 Glucose (Fingerstick) 163 mg/dL (70-99) White Blood Count 29.1 x10^3/uL (4.0-11.0) Red Blood Count 4.05 x10^6/uL (4.30-5.70) Hemoglobin 11.6 g/dL (13.0-17.5) Hematocrit 35.9 % (39.0-53.0) Mean Corpuscular Volume 89 fL (79-100) Mean Corpuscular Hemoglobin 29 pg (25-35) Mean Corpuscular Hemoglobin Concent 32 g/dL (31-37) Red Cell Distribution Width 15.3 % (11.5-14.5) Platelet Count 346 x10^3/uL (140-400) Prothrombin Time 12.9 SEC (11.7-14.0) Prothromb Time International Ratio 1.0 (0.8-1.1) Heparin Anti-Xa Act, Unfractionated < 0.10 IU/mL (0.30-0.70) Sodium Level 139 mmol/L (136-145) Potassium Level 5.2 mmol/L (3.5-5.1) Chloride Level 99 mmol/L (98-107) Carbon Dioxide Level 32 mmol/L (21-32) Anion Gap 8 (6-14) Blood Urea Nitrogen 41 mg/dL (8-26) Creatinine 0.8 mg/dL (0.7-1.3) Estimated GFR (Cockcroft-Gault) 97.6 Glucose Level 141 mg/dL (70-99) Calcium Level 7.9 mg/dL (8.5-10.1) Magnesium Level 2.5 mg/dL (1.8-2.4) Objective: Assessment: Fever multifactorial s/p code ,possible aspiration pattern improved MRSE Bacterermia 08/22/2021.Central line was pulled out Acute hypoxic respiratory failure. COVID-19 pneumonia. Chronic obstructive pulmonary disease with possible underlying pulmonary fibrosis, aspiration pneumonia. Status post code atrial fibrillation with rapid ventricular response, ventricular fibrillation, status post defibrillation, epinephrine, bicarbonate drip, status post cardiac catheterization. IABP placement. Severe protein-calorie malnutrition. Abnormal liver function tests, likely shock liver. Anemia. Encephalopathy likely anoxic .Electrolyte abn Leucocytosis on steroids, also could be worsening from Bleeds epistaxis Black digit of Lt 2nd toe could be COVID Plan: Plan of Care cont Zosyn.start zyvox NGT removed Trach and Peg on hold supportive care check c diff pcr add vanco po bc and ua, uc local picc line care Critically Ill prognosis poor D/W significant other at bedside Discussed with RN. SOFIA LOWERY MD Sep 05, 2021 14:26
[2021-09-05] MEDS ORDERED: HEPARIN 25,000UTS/250ML PREMIX 250 ML IV PRN (14:45)
[2021-09-05] MEDS ORDERED: HEPARIN for IV BOLUS 10,000 UNIT/10 ML VIAL. IV PRN (14:45)
[2021-09-05] MEDS: fentaNYL HIGH DOSE PCA 55 ML IV PRN (15:32)
--- NOTE | 2021-09-05 15:54 | NUR ---
SS following up with discharge planning. SS reviewed pt chart and discussed with pt RN. Pt is currently on the vent at 40%. Trach and Peg placed on hold due to medical instability. Hypotensive. Pt on Levophed, Propofol, Fentanyl, Versed, and Heparin. Pt on IV Zyvox, IV Solu-Medrol, and IV Lasix. Not ready. SS will continue to follow for discharge planning.
[2021-09-05] MEDS ORDERED: EPINEPHrine SYRINGE 1 MG/10 ML SYRINGE. ONE (17:00)
[2021-09-05] MEDS: VANCOMYCIN 125 MG/2.5 ML ORAL SOLUTION. PO SCH ×2 (17:30→21:00)
[2021-09-05] MEDS: ATORVASTATIN CALCIUM 40 MG TABLET. PO SCH (21:00)
[2021-09-06] VITALS (36 sets, daily range): BP systolic 0–177; BP diastolic 0–106
[2021-09-06] MEDS: PIPERACILLIN/TAZOBACTAM 4.5 GM in IV DEXTROSE 5% 100ML 100 ML IV SCH ×4 (00:13→18:39)
[2021-09-06] MEDS: fentaNYL HIGH DOSE PCA 55 ML IV PRN (04:44)
[2021-09-06 05:21] LABS: BASO # 0.1 x10^3/uL (0.0-0.2); BASO % 0 % (0-3); EOS % 0 % (0-3); HEMATOCRIT 32.6 % (39.0-53.0); HEMOGLOBIN 10.4 g/dL (13.0-17.5); LYMPH # 0.8 x10^3/uL (1.0-4.8); LYMPH % 3 % (24-48); MEAN CORPUSCULAR HEMOGLOBIN 29 pg (25-35); MEAN CORPUSCULAR HGB CONC 32 g/dL (31-37); MEAN CORPUSCULAR VOLUME 90 fL (79-100); MONO # 1.8 x10^3/uL (0.0-1.1); MONO % 6 % (0-9); NEUT # 29.1 x10^3/uL (1.8-7.7); NEUT % 92 % (31-73); PLATELET COUNT 375 x10^3/uL (140-400); RED BLOOD COUNT 3.64 x10^6/uL (4.30-5.70); RED CELL DISTRIBUTION WIDTH 15.5 % (11.5-14.5); WHITE BLOOD COUNT 31.8 x10^3/uL (4.0-11.0)
[2021-09-06 05:37] LABS: ALBUMIN 2.4 g/dL (3.4-5.0); ALBUMIN/GLOBULIN RATIO 0.7 (1.0-1.7); CALCIUM 7.6 mg/dL (8.5-10.1); CREATININE 0.7 mg/dL (0.7-1.3); GFR 113.9; POTASSIUM 4.9 mmol/L (3.5-5.1); TOTAL BILIRUBIN 0.6 mg/dL (0.2-1.0); TOTAL PROTEIN 5.8 g/dL (6.4-8.2)
[2021-09-06] MEDS: methylPREDNISolone SOD SUCC PF 40 MG/ML VIAL. IV SCH ×2 (05:37→20:16)
[2021-09-06] MEDS: PROPOFOL 100 ML IV PRN ×3 (05:37→20:18)
--- NOTE | 2021-09-06 05:48 | PDOC ---
Infectious Disease Note Subjective: Subjective Patient Intubated Was restarted on Levophed this morning when he went into A. fib with RVR Patient had clot removal from nose and mouth Had NG tube inserted on the left nostril today WBC 31K, C. difficile negative On high-dose steroids d/w RN Vital Signs: Vital Signs Vital Signs Date Time Temp Pulse Resp B/P (MAP) Pulse Ox O2 Delivery O2 Flow Rate FiO2 09/06/21 04:44 97 Ventilator 09/06/21 04:00 98.9 80 22 127/77 98.9 09/05/21 16:02 4.0 Physical Exam: PHYSICAL EXAM GENERAL: Intubated HEENT: No conjunctival petechia. ETT present, NGT reinserted LUNGS: Coarse breath sounds in the bases, otherwise clear. HEART: S1, S2, irregular. I could not appreciate any murmurs. ABDOMEN: Soft, nontender, nondistended. Bowel sounds present. GENITOURINARY: Berumen in place. EXTREMITIES: Present no cyanosis. Right groin catheter removed, Right upper extremity PICC line placed on 08/23/2021.Lt 2nd digit black DERMATOLOGIC: Warm, dry, no generalized rash. NEUROLOGIC: Unable to assess. Medications: Inpatient Meds: Medications reviewed. Labs: Lab Laboratory Tests Test 09/05/21 13:25 09/05/21 17:35 09/05/21 22:00 09/06/21 05:10 Troponin I High Sensitivity 2250 ng/L (4-75) 2115 ng/L (4-75) Heparin Anti-Xa Act, Unfractionated 0.58 IU/mL (0.30-0.70) 0.84 IU/mL (0.30-0.70) White Blood Count 31.8 x10^3/uL (4.0-11.0) Red Blood Count 3.64 x10^6/uL (4.30-5.70) Hemoglobin 10.4 g/dL (13.0-17.5) Hematocrit 32.6 % (39.0-53.0) Mean Corpuscular Volume 90 fL (79-100) Mean Corpuscular Hemoglobin 29 pg (25-35) Mean Corpuscular Hemoglobin Concent 32 g/dL (31-37) Red Cell Distribution Width 15.5 % (11.5-14.5) Platelet Count 375 x10^3/uL (140-400) Neutrophils (%) (Auto) 92 % (31-73) Lymphocytes (%) (Auto) 3 % (24-48) Monocytes (%) (Auto) 6 % (0-9) Eosinophils (%) (Auto) 0 % (0-3) Basophils (%) (Auto) 0 % (0-3) Neutrophils # (Auto) 29.1 x10^3/uL (1.8-7.7) Lymphocytes # (Auto) 0.8 x10^3/uL (1.0-4.8) Monocytes # (Auto) 1.8 x10^3/uL (0.0-1.1) Eosinophils # (Auto) 0.0 x10^3/uL (0.0-0.7) Basophils # (Auto) 0.1 x10^3/uL (0.0-0.2) Sodium Level 136 mmol/L (136-145) Potassium Level 4.9 mmol/L (3.5-5.1) Chloride Level 100 mmol/L (98-107) Carbon Dioxide Level 32 mmol/L (21-32) Anion Gap 4 (6-14) Blood Urea Nitrogen 35 mg/dL (8-26) Creatinine 0.7 mg/dL (0.7-1.3) Estimated GFR (Cockcroft-Gault) 113.9 BUN/Creatinine Ratio 50 (6-20) Glucose Level 166 mg/dL (70-99) Calcium Level 7.6 mg/dL (8.5-10.1) Total Bilirubin 0.6 mg/dL (0.2-1.0) Aspartate Amino Transf (AST/SGOT) 49 U/L (15-37) Alanine Aminotransferase (ALT/SGPT) 54 U/L (16-63) Alkaline Phosphatase 95 U/L (46-116) Total Protein 5.8 g/dL (6.4-8.2) Albumin 2.4 g/dL (3.4-5.0) Albumin/Globulin Ratio 0.7 (1.0-1.7) Objective: Assessment: Fever multifactorial s/p code ,possible aspiration resolved MRSE Bacterermia 08/22/2021.Central line was pulled out Acute hypoxic respiratory failure. COVID-19 pneumonia. Chronic obstructive pulmonary disease with possible underlying pulmonary fibrosis, aspiration pneumonia. Status post code atrial fibrillation with rapid ventricular response, ventricular fibrillation, status post defibrillation, epinephrine, bicarbonate drip, status post cardiac catheterization. IABP placement. Severe protein-calorie malnutrition. Abnormal liver function tests, likely shock liver. Anemia. Encephalopathy likely anoxic .Electrolyte abn Leucocytosis on steroids, also could be worsening from Bleeds epistaxis Black digit of Lt 2nd toe could be COVID C. difficile negative on 09/05/2021 Plan: Plan of Care Chest x-ray shows improvement Abdominal exam appears benign No other localizing sign for infection at this time WBC elevated likely from noninfectious etiology cont Zosyn.zyvox NGT removed Trach and Peg on hold supportive care DC p.o. Vanco C. difficile is negative Follow bc UA negative local picc line care Critically Ill prognosis poor D/W significant other and son at bedside Discussed with ROLAND. SOFIA LOWERY MD Sep 06, 2021 05:48
[2021-09-06] MEDS ORDERED: EPINEPHrine SYRINGE 1 MG/10 ML SYRINGE. ONE (07:11)
--- NOTE | 2021-09-06 07:15 | NUR ---
Received report from Trice. Pt rhythm irregular, bigeminy, cally-flipped into afib-RVR 140-160, unable to get blood pressure for short amount of time, see charting. Increased levophed per protocol. Paged Jessica Loco with cardiology, orders to give dig 0.25mcg IVP. Pt converted back to NSR within 15mins of giving digoxin. BP improved, orders per Iesha do not titrate levophed and stop heparin d/t bleeding. Placed left NG, chest xray confirmed placement. Administered home medications.
[2021-09-06] MEDS: ASPIRIN CHEWABLE 81 MG TABLET. PO SCH ×2 (08:00→11:56)
[2021-09-06] MEDS: CLOPIDOGREL BISULFATE 75 MG TABLET PO SCH ×2 (08:00→11:56)
[2021-09-06] MEDS ORDERED: DIGOXIN IV 500 MCG/2 ML AMPUL. IV ONE (08:30)
[2021-09-06] MEDS: AMIODARONE HCL 200 MG TABLET. PO SCH ×2 (08:40→11:56)
[2021-09-06] MEDS: VANCOMYCIN 125 MG/2.5 ML ORAL SOLUTION. PO SCH (08:42)
[2021-09-06] MEDS: levETIRAcetam 500 MG/5 ML ORAL SOLUTION. PEG SCH ×3 (08:42→20:17)
[2021-09-06] MEDS: NOREPINEPHRINE VIAL 8 MG in IV DEXTROSE 5% 250 ML IV PRN ×3 (08:47→21:24)
--- NOTE | 2021-09-06 09:15 | NUR ---
Wound Care: Spoke with RN whom stated patient is too unstable today for wound care, we will check with RN tomorrow.
--- NOTE | 2021-09-06 10:31 | PDOC ---
PULMONARY PROGRESS NOTES DATE: 09/06/21 TIME: 10:30 Subjective Currently on assist control ventilation, Sedated. Vitals Vital Signs Date Time Temp Pulse Resp B/P (MAP) Pulse Ox O2 Delivery O2 Flow Rate FiO2 09/06/21 09:00 64 22 94/61 100 Ventilator 09/06/21 04:00 98.9 98.9 09/05/21 16:02 4.0 Comments ros unable to obtain sedated on vent HEENT: Other (nc at perrl nose clear orally intubated neck no lad no thyromegaly) Lungs: Crackles Cardiovascular: S1, S2 Abdomen: Soft, Non-tender Extremities: No Edema Skin: Warm Labs Laboratory Tests Test 09/05/21 00:01 09/05/21 05:30 09/05/21 08:00 09/05/21 13:25 Glucose (Fingerstick) 163 mg/dL (70-99) White Blood Count 29.1 x10^3/uL (4.0-11.0) Red Blood Count 4.05 x10^6/uL (4.30-5.70) Hemoglobin 11.6 g/dL (13.0-17.5) Hematocrit 35.9 % (39.0-53.0) Mean Corpuscular Volume 89 fL (79-100) Mean Corpuscular Hemoglobin 29 pg (25-35) Mean Corpuscular Hemoglobin Concent 32 g/dL (31-37) Red Cell Distribution Width 15.3 % (11.5-14.5) Platelet Count 346 x10^3/uL (140-400) Prothrombin Time 12.9 SEC (11.7-14.0) Prothromb Time International Ratio 1.0 (0.8-1.1) Heparin Anti-Xa Act, Unfractionated < 0.10 IU/mL (0.30-0.70) Sodium Level 139 mmol/L (136-145) Potassium Level 5.2 mmol/L (3.5-5.1) Chloride Level 99 mmol/L (98-107) Carbon Dioxide Level 32 mmol/L (21-32) Anion Gap 8 (6-14) Blood Urea Nitrogen 41 mg/dL (8-26) Creatinine 0.8 mg/dL (0.7-1.3) Estimated GFR (Cockcroft-Gault) 97.6 Glucose Level 141 mg/dL (70-99) Calcium Level 7.9 mg/dL (8.5-10.1) Magnesium Level 2.5 mg/dL (1.8-2.4) Clostridium difficile Toxin (PCR) Negative (NEGATIVE) Troponin I High Sensitivity 2250 ng/L (4-75) Test 09/05/21 17:35 09/05/21 22:00 09/06/21 05:10 Troponin I High Sensitivity 2115 ng/L (4-75) Heparin Anti-Xa Act, Unfractionated 0.58 IU/mL (0.30-0.70) 0.84 IU/mL (0.30-0.70) White Blood Count 31.8 x10^3/uL (4.0-11.0) Red Blood Count 3.64 x10^6/uL (4.30-5.70) Hemoglobin 10.4 g/dL (13.0-17.5) Hematocrit 32.6 % (39.0-53.0) Mean Corpuscular Volume 90 fL (79-100) Mean Corpuscular Hemoglobin 29 pg (25-35) Mean Corpuscular Hemoglobin Concent 32 g/dL (31-37) Red Cell Distribution Width 15.5 % (11.5-14.5) Platelet Count 375 x10^3/uL (140-400) Neutrophils (%) (Auto) 92 % (31-73) Lymphocytes (%) (Auto) 3 % (24-48) Monocytes (%) (Auto) 6 % (0-9) Eosinophils (%) (Auto) 0 % (0-3) Basophils (%) (Auto) 0 % (0-3) Neutrophils # (Auto) 29.1 x10^3/uL (1.8-7.7) Lymphocytes # (Auto) 0.8 x10^3/uL (1.0-4.8) Monocytes # (Auto) 1.8 x10^3/uL (0.0-1.1) Eosinophils # (Auto) 0.0 x10^3/uL (0.0-0.7) Basophils # (Auto) 0.1 x10^3/uL (0.0-0.2) Sodium Level 136 mmol/L (136-145) Potassium Level 4.9 mmol/L (3.5-5.1) Chloride Level 100 mmol/L (98-107) Carbon Dioxide Level 32 mmol/L (21-32) Anion Gap 4 (6-14) Blood Urea Nitrogen 35 mg/dL (8-26) Creatinine 0.7 mg/dL (0.7-1.3) Estimated GFR (Cockcroft-Gault) 113.9 BUN/Creatinine Ratio 50 (6-20) Glucose Level 166 mg/dL (70-99) Calcium Level 7.6 mg/dL (8.5-10.1) Total Bilirubin 0.6 mg/dL (0.2-1.0) Aspartate Amino Transf (AST/SGOT) 49 U/L (15-37) Alanine Aminotransferase (ALT/SGPT) 54 U/L (16-63) Alkaline Phosphatase 95 U/L (46-116) Total Protein 5.8 g/dL (6.4-8.2) Albumin 2.4 g/dL (3.4-5.0) Albumin/Globulin Ratio 0.7 (1.0-1.7) Laboratory Tests Test 09/05/21 13:25 09/05/21 17:35 09/05/21 22:00 09/06/21 05:10 Troponin I High Sensitivity 2250 ng/L (4-75) 2115 ng/L (4-75) Heparin Anti-Xa Act, Unfractionated 0.58 IU/mL (0.30-0.70) 0.84 IU/mL (0.30-0.70) White Blood Count 31.8 x10^3/uL (4.0-11.0) Red Blood Count 3.64 x10^6/uL (4.30-5.70) Hemoglobin 10.4 g/dL (13.0-17.5) Hematocrit 32.6 % (39.0-53.0) Mean Corpuscular Volume 90 fL (79-100) Mean Corpuscular Hemoglobin 29 pg (25-35) Mean Corpuscular Hemoglobin Concent 32 g/dL (31-37) Red Cell Distribution Width 15.5 % (11.5-14.5) Platelet Count 375 x10^3/uL (140-400) Neutrophils (%) (Auto) 92 % (31-73) Lymphocytes (%) (Auto) 3 % (24-48) Monocytes (%) (Auto) 6 % (0-9) Eosinophils (%) (Auto) 0 % (0-3) Basophils (%) (Auto) 0 % (0-3) Neutrophils # (Auto) 29.1 x10^3/uL (1.8-7.7) Lymphocytes # (Auto) 0.8 x10^3/uL (1.0-4.8) Monocytes # (Auto) 1.8 x10^3/uL (0.0-1.1) Eosinophils # (Auto) 0.0 x10^3/uL (0.0-0.7) Basophils # (Auto) 0.1 x10^3/uL (0.0-0.2) Sodium Level 136 mmol/L (136-145) Potassium Level 4.9 mmol/L (3.5-5.1) Chloride Level 100 mmol/L (98-107) Carbon Dioxide Level 32 mmol/L (21-32) Anion Gap 4 (6-14) Blood Urea Nitrogen 35 mg/dL (8-26) Creatinine 0.7 mg/dL (0.7-1.3) Estimated GFR (Cockcroft-Gault) 113.9 BUN/Creatinine Ratio 50 (6-20) Glucose Level 166 mg/dL (70-99) Calcium Level 7.6 mg/dL (8.5-10.1) Total Bilirubin 0.6 mg/dL (0.2-1.0) Aspartate Amino Transf (AST/SGOT) 49 U/L (15-37) Alanine Aminotransferase (ALT/SGPT) 54 U/L (16-63) Alkaline Phosphatase 95 U/L (46-116) Total Protein 5.8 g/dL (6.4-8.2) Albumin 2.4 g/dL (3.4-5.0) Albumin/Globulin Ratio 0.7 (1.0-1.7) Impression . 1. Acute hypoxic respiratory failure secondary to COVID-19 pneumonia, acute respiratory distress syndrome and possible underlying fibrosis and emphysema., Extubated 08/20, reintubated 08/23 status post CODE BLUE/semi-CODE BLUE on 09/[address] chest 3. Hypernatremia 4. Suspected underlying severe chronic obstructive pulmonary disease. 5. COVID-19 viral pneumonia.--- Covid recovered 6. Abnormal chest x-ray with bilateral diffuse infiltrates related to COVID-19 viral pneumonia.--- Covid recovered 7. Patient reintubated 08/23, status post CODE BLUE 8. Abnormal x-ray from 08/15, possible ARDS, possible pulmonary edema, possible aspiration 9. ST elevation ND status post intra-aortic balloon pump--08/23/2021 10. Emergent cardiac catheterization revealing 90% stenotic lesion 11. Echocardiogram revealing ejection fraction of 35 to 40% pulmonary artery pressure of 34 inferior septal wall hypokinesis 12. Bacteremia Staph epidermidis 13. Necrotic toe left second, suspect related COVID Cardiac catheterization 08/30 Due to large vessel size a decision was made to defer stenting at this time for continued medical therapy. After the patient is fully extubated and depending on symptoms could consider PCI. Conclusion 1. Recanalized right coronary artery with brisk blood flow. 2. Residual proximal 70% RCA stenosis with significant ectasia of the RCA measuring up to 6.25 mm. 3. Normal left ventricular filling pressures. Recommendations 1. Continue aspirin, Plavix and heparin drip. 2. Continue plans for extubation. 3. After patient is extubated and stabilized depending on symptoms we will consider high risk PCI with specialized MegaTron stent given the large vessel size. Plan . Updated 08/16 Continue current support Follow cardiology input Antibiotics per ID, leukocytosis increased today If remains clinically stable we will proceed with trach next week Repeat cultures negative Currently on Solu-Medrol every 12, 40 mg Chest x-ray reviewed, improving CCT 30 minutes, discussed with at the bedside Updated 09/05 Patient had a semi-CODE BLUE this morning, trach on hold Now with epistaxis Continue assist-control ventilation Follow cardiology input Antibiotics per ID Monitor labs Discussed with at the bedside CCT 30 minutes Updated 09/04 Discussed with at bedside Trach tomorrow Possible PEG Continue current support Suspect patient will require LTAC, difficult weaning Follow cardiology input Antibiotics per ID Monitor electrolytes CCT of 30 minutes REBECCA DUGGAN MD Sep 06, 2021 10:31
--- NOTE | 2021-09-06 10:38 | RAD ---
XR CHEST 1V INDICATION: PNEUMONIA, LOW BP, BRADYCARDIA / Spl. Instructions: / History: . COMPARISON STUDY: 08/31/2021. FINDINGS: Life Support Devices: Stable endotracheal tube, enteric tube. Lungs: Normal lung volume. Improving bilateral interstitial opacities. Pleura: Improving trace effusions. Heart and Mediastinum: Stable cardiomediastinal silhouette and great vessels. Bones and Soft Tissues: Stable regional skeleton and soft tissues. IMPRESSION: 1. Stable life support devices. 2. Improving bilateral interstitial opacities. 3. Improving trace pleural effusions. Electronically signed by: Yifan Samson MD (09/06/2021 10:35 AM) [id number]
--- NOTE | 2021-09-06 11:51 | CARD ---
MR#: [id number] Date of Study: 09/05/2021 Ordering Physician: TEDDY ANGLIN, Referring Physician: TEDDY ANGLIN, Tech: Lizet Sierra [facility] APPROVED REPORT EXAM: Two-dimensional and M-mode echocardiogram with Doppler and color Doppler. Other Information Quality : Technically LimitedHR: 76bpm Rhythm : NSR INDICATION Cardiac Disease: CAD RISK FACTORS Hypertension Obesity Hyperlipidemia 2D DIMENSIONS Left Atrium(2D)3.9 (1.6-4.0cm)IVSd1.5 (0.7-1.1cm) LVDd4.7 (3.9-5.9cm)PWd1.3 (0.7-1.1cm) LEFT VENTRICLE The left ventricle is normal size. There is mild concentric left ventricular hypertrophy. Hypokinesis of the mid to distal inferior and posterior smith. The ejection fraction is estimated at 45%. RIGHT VENTRICLE The right ventricle is normal size. There is normal right ventricular wall thickness. The right ventr icular systolic function is normal. ATRIA The left atrium size is normal. The right atrium size is normal. The interatrial septum is intact wit h no evidence for an atrial septal defect or patent foramen ovale as noted on 2-D or Doppler imaging. AORTIC VALVE The aortic valve is normal in structure and function. There is no significant aortic valvular stenosi s. MITRAL VALVE The mitral valve is normal in structure and function. There is no evidence of mitral valve prolapse. There is no mitral valve stenosis. TRICUSPID VALVE The tricuspid valve is normal in structure and function. Doppler and Color Flow revealed no tricuspid valve regurgitation noted. There is no tricuspid valve stenosis. GREAT VESSELS The aortic root is normal in size. PERICARDIAL EFFUSION There is no evidence of significant pericardial effusion. Critical Notification Critical Value: No <Conclusion> Technically difficult study. Hypokinesis of the mid to distal inferior and posterior smith. The ejection fraction is estimated at 45%. There is no evidence of significant pericardial effusion. Signed by : Damon Reyna, Electronically Approved : 09/06/2021 11:50:56
[2021-09-06] MEDS: MIDAZOLAM 100mg/100ml NS BAG 100 ML IV PRN ×2 (11:53→21:24)
[2021-09-06] MEDS: FAMOTIDINE 20 MG/2 ML VIAL IVP SCH ×2 (11:58→20:16)
--- NOTE | 2021-09-06 12:32 | PDOC ---
Date of Service: DATE: 09/06/21 TIME: 12:28 Objective: Objective: D/w nurse - NGT replaced, less bleeding, BP labile, off Heparin, on pressor. C Diff negative 09/05. Vital Signs: Vital Signs Date Time Temp Pulse Resp B/P (MAP) Pulse Ox O2 Delivery O2 Flow Rate FiO2 09/06/21 11:56 64 94/61 09/06/21 09:00 22 100 Ventilator 09/06/21 08:15 98.1 98.1 09/05/21 16:02 4.0 Labs: Laboratory Tests Test 09/05/21 13:25 09/05/21 17:35 09/05/21 22:00 09/06/21 05:10 Troponin I High Sensitivity 2250 ng/L 2115 ng/L Heparin Anti-Xa Act, Unfractionated 0.58 IU/mL 0.84 IU/mL White Blood Count 31.8 x10^3/uL Red Blood Count 3.64 x10^6/uL Hemoglobin 10.4 g/dL Hematocrit 32.6 % Mean Corpuscular Volume 90 fL Mean Corpuscular Hemoglobin 29 pg Mean Corpuscular Hemoglobin Concent 32 g/dL Red Cell Distribution Width 15.5 % Platelet Count 375 x10^3/uL Neutrophils (%) (Auto) 92 % Lymphocytes (%) (Auto) 3 % Monocytes (%) (Auto) 6 % Eosinophils (%) (Auto) 0 % Basophils (%) (Auto) 0 % Neutrophils # (Auto) 29.1 x10^3/uL Lymphocytes # (Auto) 0.8 x10^3/uL Monocytes # (Auto) 1.8 x10^3/uL Eosinophils # (Auto) 0.0 x10^3/uL Basophils # (Auto) 0.1 x10^3/uL Sodium Level 136 mmol/L Potassium Level 4.9 mmol/L Chloride Level 100 mmol/L Carbon Dioxide Level 32 mmol/L Anion Gap 4 Blood Urea Nitrogen 35 mg/dL Creatinine 0.7 mg/dL Estimated GFR (Cockcroft-Gault) 113.9 BUN/Creatinine Ratio 50 Glucose Level 166 mg/dL Calcium Level 7.6 mg/dL Total Bilirubin 0.6 mg/dL Aspartate Amino Transf (AST/SGOT) 49 U/L Alanine Aminotransferase (ALT/SGPT) 54 U/L Alkaline Phosphatase 95 U/L Total Protein 5.8 g/dL Albumin 2.4 g/dL Albumin/Globulin Ratio 0.7 Imaging: CXR 09/06 IMPRESSION: 1. Stable life support devices. 2. Improving bilateral interstitial opacities. 3. Improving trace pleural effusions. PE: GEN: intubated - family present - did not disturb LUNGS: vent ABD: non-distended NEURO/PSYCH: sedated A/P: COVID (recovered)/resp failure, s/p cardiac arrest/CAD, encephalopathy - trach on hold w/ instability -- PEG placement would be complicated - on hold for now. Justicifation of Admission Dx: Justifications for Admission: Justification of Admission Dx: N/A GEORGIA GUILLEN Sep 06, 2021 12:32
--- NOTE | 2021-09-06 12:58 | PN ---
DATE: 09/06/2021 SUBJECTIVE: The patient is resting, slightly propped up in bed, in no apparent respiratory distress. He apparently has an episode of bigeminy bradycardia and in atrial fibrillation with rapid ventricular response, treated with one dose of digoxin 250 mcg IV and he is converted after 10 minutes to sinus rhythm. By the time I saw him, he was actually in sinus rhythm, hemodynamically stable. PHYSICAL EXAMINATION: VITAL SIGNS: His heart rate was 84, blood pressure 149/70, temperature was 98.9, respiratory rate was 22 and oxygen saturation was 99% on FiO2 of 40%. HEAD, EYES, EARS, NOSE, AND THROAT: Normocephalic, atraumatic. He has an orogastric and orotracheal tube in place. NECK: Supple. HEART: Normal first and second heart sounds. No gallop, rub or murmur. CHEST: Showed central trachea, equal bilateral chest expansion, air entry, vesicular breath sounds. I could not appreciate any crepitation or rhonchi. ABDOMEN: Distended, soft, nontender. NEUROLOGIC: He was heavily sedated. His intake over the last 24 hours was 2640, output was 5045. LABORATORY DATA: As of this morning, his white cell count is rising further to 31.8, hemoglobin was 10, hematocrit 33, MCV 90 and platelet count of 375 with automated differential showed 92% polymorphs, 3% lymphocytes and 6% monocytes. His chemistry this morning showed serum sodium 136, potassium 4.9, chloride 100, bicarbonate 32, anion gap of 4, BUN 35, creatinine was 0.7. Estimated GFR was 114 mL per minute. His glucose 166, calcium was 7.6. Total bilirubin, AST, ALT, alkaline phosphatase were normal. His total protein was 5.8, albumin was 2.4. ASSESSMENT: 1. The patient is status post cardiac arrest, likely due to hypoxia. He also had COVID-19 pneumonia as well as acute myocardial infarction. Apparently, the patient went into ventricular tachycardia, was shocked and also went into ventricular fibrillation, treated with CPR and epinephrine with return of spontaneous circulation. This morning, he developed an episode of bradycardia and bigeminy and in atrial fibrillation with rapid ventricular response, that has responded to IV digoxin. He is now in sinus rhythm. 2. [id number] hypoxic respiratory failure. 3. Acute respiratory distress syndrome. 4. Acute exacerbation of chronic obstructive pulmonary disease. 5. COVID-19 pneumonia. 6. Atrial fibrillation with rapid ventricular response that is rate controlled and now he is currently off heparin drip. His Plavix and aspirin on hold also in anticipation of tracheostomy tube placement. 7. Inferior ST segment elevation myocardial infarction. 8. Cardiogenic as well as septic shock. 9. The patient underwent cardiac catheterization for the second time, it has revealed that the patient has recanalized his right coronary artery for which he was started on aspirin, Plavix and continued on heparin drip with a plan to do high risk PCI and stent deployment given the large size of his after he gets extubated and stabilized. PLAN: To continue with mechanical ventilation and sedation. Continue with Keppra for seizure disorder. His heparin was discontinued as well as his Plavix and aspirin in anticipation for tracheostomy. Meanwhile, continue with GI prophylaxis. Continue with DVT prophylaxis with SCDs. Continue with IV antibiotic in the form of linezolid, vancomycin and piperacillin/tazobactam. I will cut down the steroids further to 40 mg twice a day. ESTEPHANIA/MARGE DR: Vannessa TID: [id number]
--- NOTE | 2021-09-06 13:29 | PDOC ---
TETO DIAZ ROOM SERVICE SERVER 09/06/21 1329: CARDIO Progress Notes Date and Time Date of Service 09/06/21 Time of Evaluation 0928 Subjective Subjective: Other (intubated ) Vitals Vitals Vital Signs Date Time Temp Pulse Resp B/P (MAP) Pulse Ox O2 Delivery O2 Flow Rate FiO2 09/06/21 12:30 100 Ventilator 09/06/21 11:56 64 94/61 09/06/21 09:00 22 09/06/21 08:15 98.1 98.1 09/05/21 16:02 4.0 Weight Weight [ ] Input and Output Intake and Output Intake and Output 09/06/21 07:00 Intake Total 2416 ml Output Total 2500 ml Balance -84 ml IV Total 1690 ml Tube Feeding 451 ml Other 275 ml Output Urine Total 2250 ml Stool Total 250 ml Laboratory Labs Laboratory Tests Test 09/05/21 13:25 09/05/21 17:35 09/05/21 22:00 09/06/21 05:10 Troponin I High Sensitivity 2250 ng/L (4-75) 2115 ng/L (4-75) Heparin Anti-Xa Act, Unfractionated 0.58 IU/mL (0.30-0.70) 0.84 IU/mL (0.30-0.70) White Blood Count 31.8 x10^3/uL (4.0-11.0) Red Blood Count 3.64 x10^6/uL (4.30-5.70) Hemoglobin 10.4 g/dL (13.0-17.5) Hematocrit 32.6 % (39.0-53.0) Mean Corpuscular Volume 90 fL (79-100) Mean Corpuscular Hemoglobin 29 pg (25-35) Mean Corpuscular Hemoglobin Concent 32 g/dL (31-37) Red Cell Distribution Width 15.5 % (11.5-14.5) Platelet Count 375 x10^3/uL (140-400) Neutrophils (%) (Auto) 92 % (31-73) Lymphocytes (%) (Auto) 3 % (24-48) Monocytes (%) (Auto) 6 % (0-9) Eosinophils (%) (Auto) 0 % (0-3) Basophils (%) (Auto) 0 % (0-3) Neutrophils # (Auto) 29.1 x10^3/uL (1.8-7.7) Lymphocytes # (Auto) 0.8 x10^3/uL (1.0-4.8) Monocytes # (Auto) 1.8 x10^3/uL (0.0-1.1) Eosinophils # (Auto) 0.0 x10^3/uL (0.0-0.7) Basophils # (Auto) 0.1 x10^3/uL (0.0-0.2) Sodium Level 136 mmol/L (136-145) Potassium Level 4.9 mmol/L (3.5-5.1) Chloride Level 100 mmol/L (98-107) Carbon Dioxide Level 32 mmol/L (21-32) Anion Gap 4 (6-14) Blood Urea Nitrogen 35 mg/dL (8-26) Creatinine 0.7 mg/dL (0.7-1.3) Estimated GFR (Cockcroft-Gault) 113.9 BUN/Creatinine Ratio 50 (6-20) Glucose Level 166 mg/dL (70-99) Calcium Level 7.6 mg/dL (8.5-10.1) Total Bilirubin 0.6 mg/dL (0.2-1.0) Aspartate Amino Transf (AST/SGOT) 49 U/L (15-37) Alanine Aminotransferase (ALT/SGPT) 54 U/L (16-63) Alkaline Phosphatase 95 U/L (46-116) Total Protein 5.8 g/dL (6.4-8.2) Albumin 2.4 g/dL (3.4-5.0) Albumin/Globulin Ratio 0.7 (1.0-1.7) Microbiology Micro Microbiology 08/24/21 Blood Culture - Final, Complete NO GROWTH AFTER 5 DAYS 08/23/21 Respiratory Culture Gram Stain - Final, Complete 08/23/21 Respiratory Culture - Final, Complete Physical Exam HEENT: Other (supple ) Chest: Symmetric LUNGS: Other (MV) Heart: RRR (SR ) Abdomen: Other (soft ) Extremities: Other (no edema. Eschar to left foot, second toe) Neurology: other (sedated ) Assessment Assessment 1. S/P cardiac arrest; multifactorial. Noted with VT shock x1. approximately <3 min to ROSC. 2. Acute on chronic respiratory failure with COVID PNA, ARDS. unable to be weaned from vent. 3. CAD, inferior STEMI with embolic disease. Initial LHC with thrombotic distal right posterior descending artery and right posterior lateral artery occlusion. There was moderate 50% proximal and 90% mid stenosis appeared to have significant thrombotic burden with ectasia and dilation of the coronary artery. Repeat LHC showed recanalized RCA with brisk blood flow. Residual proximal 70% RCA stenosis with significant ectasia of the RCA measuring up to 6.25 mm. 4. Cardiogenic shock; IABP removed. CXR with improvement 5. Acute on chronic systolic CHF, ICM: EF at 35-40%. 6. AFIB RVR: back in AFIB with RVR this morning s/p epi for bradycardia, hypotension. S/p IV Dig. Convert garcia to SR and HR presently near 80. 7. Bradyarrhythmia; episode of bradycardia (lowest 31) with brief loss of pulse 09/05 requiring brief CPR. Echo not significant changes. Trop without significant elevation, trending downward. Mild bradycardia again this morning with hypotension. 7. Hyperlipidemia; statin 8. Black distal phalanx to left 2nd toe: possibly r/t to covid-19. no sig nificnat PAD per duplex 9. Leukocytosis, ? sepsis. Hypotensive requiring pressor support. Case d/w ID Recommendations Resume ASA, Plavix Off heparin Monitor for bleeding, H and H Avoid scheduled AV clara blocking agents Continue Levophed Ongoing support Justicifation of Admission Dx: Justifications for Admission: Justification of Admission Dx: N/A TEDDY ANGLIN MD 09/06/21 1609: CARDIO Progress Notes Plan Plan Pt. seen and examined. 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 Discussed with family at bedside. This does not appear to be a repeat cardiac insult. He needs asa, plavix for now. Hold on trach through weekend. Supportive care. Continue levophed. ABx for possible infection. TETO DIAZ APRN Sep 06, 2021 13:29 TEDDY ANGLIN MD Sep 06, 2021 16:09
--- NOTE | 2021-09-06 15:55 | NUR ---
SS following up with discharge planning. SS reviewed pt chart and discussed with pt RN. Pt is currently on the vent at 40%. Trach and Peg placed on hold due to medical instability. Pt on Levophed, Propofol, Fentanyl, and Versed. Pt on IV Zyvox, IV Solu-Medrol, and IV Zosyn. Not ready. SS will continue to follow for discharge planning.
[2021-09-06] MEDS: ATORVASTATIN CALCIUM 40 MG TABLET. PO SCH (20:17)
--- NOTE | 2021-09-06 21:24 | RAD ---
Exam: Abdomen one view INDICATION: NG tube placement TECHNIQUE: Supine view the abdomen Comparisons: None FINDINGS: Numerous overlying lines and tubes. There is an enteric tube with tip in the left upper quadrant like ly in the stomach. Gas-filled prominent but nondilated loops of small bowel visualized upper abdomen. No suspicious masses or calcifications. IMPRESSION: Enteric tube in the left upper quadrant likely in the stomach. Electronically signed by: Xiomara Morris MD (09/06/2021 9:22 PM) JAVID
[2021-09-07] VITALS (23 sets, daily range): BP systolic 138–204; BP diastolic 75–106
[2021-09-07] MEDS: PIPERACILLIN/TAZOBACTAM 4.5 GM in IV DEXTROSE 5% 100ML 100 ML IV SCH ×4 (01:33→18:00)
[2021-09-07] MEDS: fentaNYL HIGH DOSE PCA 55 ML IV PRN (04:28)
[2021-09-07 05:59] LABS: BASO % 0 % (0-3); EOS % 0 % (0-3); HEMATOCRIT 27.8 % (39.0-53.0); LYMPH # 1.2 x10^3/uL (1.0-4.8); LYMPH % 4 % (24-48); MEAN CORPUSCULAR HEMOGLOBIN 29 pg (25-35); MEAN CORPUSCULAR HGB CONC 32 g/dL (31-37); MEAN CORPUSCULAR VOLUME 90 fL (79-100); MONO # 1.6 x10^3/uL (0.0-1.1); MONO % 5 % (0-9); NEUT # 27.6 x10^3/uL (1.8-7.7); NEUT % 91 % (31-73); PLATELET COUNT 312 x10^3/uL (140-400); RED BLOOD COUNT 3.11 x10^6/uL (4.30-5.70); RED CELL DISTRIBUTION WIDTH 15.4 % (11.5-14.5); WHITE BLOOD COUNT 30.5 x10^3/uL (4.0-11.0)
[2021-09-07 06:11] LABS: CALCIUM 7.8 mg/dL (8.5-10.1); CREATININE 0.8 mg/dL (0.7-1.3); GFR 97.6; MAGNESIUM 2.4 mg/dL (1.8-2.4)
[2021-09-07] MEDS: ASPIRIN CHEWABLE 81 MG TABLET. PO SCH (07:41)
[2021-09-07] MEDS: CLOPIDOGREL BISULFATE 75 MG TABLET PO SCH (07:41)
[2021-09-07] MEDS: AMIODARONE HCL 200 MG TABLET. PO SCH (07:42)
[2021-09-07] MEDS: FAMOTIDINE 20 MG/2 ML VIAL IVP SCH ×2 (07:43→21:22)
[2021-09-07] MEDS: levETIRAcetam 500 MG/5 ML ORAL SOLUTION. PEG SCH ×2 (09:00→21:22)
[2021-09-07] MEDS: methylPREDNISolone SOD SUCC PF 40 MG/ML VIAL. IV SCH ×2 (09:00→21:22)
--- NOTE | 2021-09-07 09:24 | PDOC ---
PULMONARY PROGRESS NOTES DATE: 09/07/21 TIME: 09:24 Subjective No overnight events currently on assist control ventilation, Sedated. Vitals Vital Signs Date Time Temp Pulse Resp B/P (MAP) Pulse Ox O2 Delivery O2 Flow Rate FiO2 09/07/21 07:42 72 164/86 09/07/21 07:19 100 Ventilator 09/07/21 06:00 22 09/07/21 04:58 4.0 09/07/21 04:00 97.9 97.9 Comments ros unable to obtain sedated on vent HEENT: Other (nc at perrl nose clear orally intubated neck no lad no thyromegaly) Lungs: Crackles Cardiovascular: S1, S2 Abdomen: Soft, Non-tender Extremities: No Edema Skin: Warm Labs Laboratory Tests Test 09/05/21 13:25 09/05/21 17:35 09/05/21 22:00 09/06/21 05:10 Troponin I High Sensitivity 2250 ng/L (4-75) 2115 ng/L (4-75) Heparin Anti-Xa Act, Unfractionated 0.58 IU/mL (0.30-0.70) 0.84 IU/mL (0.30-0.70) White Blood Count 31.8 x10^3/uL (4.0-11.0) Red Blood Count 3.64 x10^6/uL (4.30-5.70) Hemoglobin 10.4 g/dL (13.0-17.5) Hematocrit 32.6 % (39.0-53.0) Mean Corpuscular Volume 90 fL (79-100) Mean Corpuscular Hemoglobin 29 pg (25-35) Mean Corpuscular Hemoglobin Concent 32 g/dL (31-37) Red Cell Distribution Width 15.5 % (11.5-14.5) Platelet Count 375 x10^3/uL (140-400) Neutrophils (%) (Auto) 92 % (31-73) Lymphocytes (%) (Auto) 3 % (24-48) Monocytes (%) (Auto) 6 % (0-9) Eosinophils (%) (Auto) 0 % (0-3) Basophils (%) (Auto) 0 % (0-3) Neutrophils # (Auto) 29.1 x10^3/uL (1.8-7.7) Lymphocytes # (Auto) 0.8 x10^3/uL (1.0-4.8) Monocytes # (Auto) 1.8 x10^3/uL (0.0-1.1) Eosinophils # (Auto) 0.0 x10^3/uL (0.0-0.7) Basophils # (Auto) 0.1 x10^3/uL (0.0-0.2) Sodium Level 136 mmol/L (136-145) Potassium Level 4.9 mmol/L (3.5-5.1) Chloride Level 100 mmol/L (98-107) Carbon Dioxide Level 32 mmol/L (21-32) Anion Gap 4 (6-14) Blood Urea Nitrogen 35 mg/dL (8-26) Creatinine 0.7 mg/dL (0.7-1.3) Estimated GFR (Cockcroft-Gault) 113.9 BUN/Creatinine Ratio 50 (6-20) Glucose Level 166 mg/dL (70-99) Calcium Level 7.6 mg/dL (8.5-10.1) Total Bilirubin 0.6 mg/dL (0.2-1.0) Aspartate Amino Transf (AST/SGOT) 49 U/L (15-37) Alanine Aminotransferase (ALT/SGPT) 54 U/L (16-63) Alkaline Phosphatase 95 U/L (46-116) Total Protein 5.8 g/dL (6.4-8.2) Albumin 2.4 g/dL (3.4-5.0) Albumin/Globulin Ratio 0.7 (1.0-1.7) Test 09/07/21 05:30 White Blood Count 30.5 x10^3/uL (4.0-11.0) Red Blood Count 3.11 x10^6/uL (4.30-5.70) Hemoglobin 9.0 g/dL (13.0-17.5) Hematocrit 27.8 % (39.0-53.0) Mean Corpuscular Volume 90 fL (79-100) Mean Corpuscular Hemoglobin 29 pg (25-35) Mean Corpuscular Hemoglobin Concent 32 g/dL (31-37) Red Cell Distribution Width 15.4 % (11.5-14.5) Platelet Count 312 x10^3/uL (140-400) Neutrophils (%) (Auto) 91 % (31-73) Lymphocytes (%) (Auto) 4 % (24-48) Monocytes (%) (Auto) 5 % (0-9) Eosinophils (%) (Auto) 0 % (0-3) Basophils (%) (Auto) 0 % (0-3) Neutrophils # (Auto) 27.6 x10^3/uL (1.8-7.7) Lymphocytes # (Auto) 1.2 x10^3/uL (1.0-4.8) Monocytes # (Auto) 1.6 x10^3/uL (0.0-1.1) Eosinophils # (Auto) 0.0 x10^3/uL (0.0-0.7) Basophils # (Auto) 0.0 x10^3/uL (0.0-0.2) Sodium Level 137 mmol/L (136-145) Potassium Level 5.0 mmol/L (3.5-5.1) Chloride Level 100 mmol/L (98-107) Carbon Dioxide Level 34 mmol/L (21-32) Anion Gap 3 (6-14) Blood Urea Nitrogen 30 mg/dL (8-26) Creatinine 0.8 mg/dL (0.7-1.3) Estimated GFR (Cockcroft-Gault) 97.6 Glucose Level 188 mg/dL (70-99) Calcium Level 7.8 mg/dL (8.5-10.1) Magnesium Level 2.4 mg/dL (1.8-2.4) Laboratory Tests Test 09/07/21 05:30 White Blood Count 30.5 x10^3/uL (4.0-11.0) Red Blood Count 3.11 x10^6/uL (4.30-5.70) Hemoglobin 9.0 g/dL (13.0-17.5) Hematocrit 27.8 % (39.0-53.0) Mean Corpuscular Volume 90 fL (79-100) Mean Corpuscular Hemoglobin 29 pg (25-35) Mean Corpuscular Hemoglobin Concent 32 g/dL (31-37) Red Cell Distribution Width 15.4 % (11.5-14.5) Platelet Count 312 x10^3/uL (140-400) Neutrophils (%) (Auto) 91 % (31-73) Lymphocytes (%) (Auto) 4 % (24-48) Monocytes (%) (Auto) 5 % (0-9) Eosinophils (%) (Auto) 0 % (0-3) Basophils (%) (Auto) 0 % (0-3) Neutrophils # (Auto) 27.6 x10^3/uL (1.8-7.7) Lymphocytes # (Auto) 1.2 x10^3/uL (1.0-4.8) Monocytes # (Auto) 1.6 x10^3/uL (0.0-1.1) Eosinophils # (Auto) 0.0 x10^3/uL (0.0-0.7) Basophils # (Auto) 0.0 x10^3/uL (0.0-0.2) Sodium Level 137 mmol/L (136-145) Potassium Level 5.0 mmol/L (3.5-5.1) Chloride Level 100 mmol/L (98-107) Carbon Dioxide Level 34 mmol/L (21-32) Anion Gap 3 (6-14) Blood Urea Nitrogen 30 mg/dL (8-26) Creatinine 0.8 mg/dL (0.7-1.3) Estimated GFR (Cockcroft-Gault) 97.6 Glucose Level 188 mg/dL (70-99) Calcium Level 7.8 mg/dL (8.5-10.1) Magnesium Level 2.4 mg/dL (1.8-2.4) Impression . 1. Acute hypoxic respiratory failure secondary to COVID-19 pneumonia, acute respiratory distress syndrome and possible underlying fibrosis and emphysema., Extubated 08/20, reintubated 08/23 status post CODE BLUE/semi-CODE BLUE on 09/[address] chest 3. Hypernatremia 4. Suspected underlying severe chronic obstructive pulmonary disease. 5. COVID-19 viral pneumonia.--- Covid recovered 6. Abnormal chest x-ray with bilateral diffuse infiltrates related to COVID-19 viral pneumonia.--- Covid recovered 7. Patient reintubated 08/23, status post CODE BLUE 8. Abnormal x-ray from 08/15, possible ARDS, possible pulmonary edema, possible aspiration 9. ST elevation MA status post intra-aortic balloon pump--08/23/2021 10. Emergent cardiac catheterization revealing 90% stenotic lesion 11. Echocardiogram revealing ejection fraction of 35 to 40% pulmonary artery pressure of 34 inferior septal wall hypokinesis 12. Bacteremia Staph epidermidis 13. Necrotic toe left second, suspect related COVID Cardiac catheterization 08/30 Due to large vessel size a decision was made to defer stenting at this time for continued medical therapy. After the patient is fully extubated and depending on symptoms could consider PCI. Conclusion 1. Recanalized right coronary artery with brisk blood flow. 2. Residual proximal 70% RCA stenosis with significant ectasia of the RCA measuring up to 6.25 mm. 3. Normal left ventricular filling pressures. Recommendations 1. Continue aspirin, Plavix and heparin drip. 2. Continue plans for extubation. 3. After patient is extubated and stabilized depending on symptoms we will consider high risk PCI with specialized MegaTron stent given the large vessel size. Plan . Updated 09/07 Hemodynamically stable ET tube was repositioned today, advanced to 3 cm Continue antibiotics per ID If fever remains stable we will proceed with tracheotomy, need to hold Plavix C. difficile negative So far cultures negative Updated 09/06 Continue current support Follow cardiology input Antibiotics per ID, leukocytosis increased today If remains clinically stable we will proceed with trach next week Repeat cultures negative Currently on Solu-Medrol every 12, 40 mg Chest x-ray reviewed, improving CCT 30 minutes, discussed with at the bedside REBECCA DUGGAN MD Sep 07, 2021 09:24
--- NOTE | 2021-09-07 09:54 | RAD ---
EXAM: XR CHEST 1V 09/07/2021 9:33 AM CLINICAL INDICATION: ET tube placement, OG placement COMPARISON: Chest radiograph 09/06/2021 TECHNIQUE: AP supine view of the chest FINDINGS: A defibrillator pad overlies the chest. A right PICC tip terminates over the lower superio r vena cava. The endotracheal tube terminates 6.8 cm above the sabino. Nasogastric tube has been adva nced and terminates in the gastric body with the sidehole is intragastric. The cardiomediastinal silh ouette is stable. There is no significant change in mild diffuse interstitial opacities, greatest in the bases. Trace right pleural effusion. No pneumothorax. IMPRESSION: 1. The nasogastric tube has been advanced and is now intragastric. 2. The endotracheal tube and right PICC are in appropriate position. 3. No significant change in diffuse bilateral interstitial opacities. Trace right pleural effusion. Electronically signed by: Myesha Weber MD (09/07/2021 9:52 AM) [id number]
--- NOTE | 2021-09-07 10:25 | PN ---
DATE: 09/07/2021 SUBJECTIVE: The patient is resting, slightly propped up in bed, in no apparent respiratory distress. He has no further episode of bradycardia or atrial fibrillation. He is currently on heavily sedated. Continue to be intubated and mechanically ventilated. He is maintaining his oxygen saturation at 100% on FiO2 of 40%. PHYSICAL EXAMINATION: GENERAL: When I examined him, he was pale, but not jaundiced or cyanosed, no lymphadenopathy, no thyromegaly, no jugular venous distention. No lower limb edema. VITAL SIGNS: His heart rate was 66, blood pressure was 151/78, temperature was 97.9, respiratory rate was 22 and oxygen saturation was 100%. HEAD, EYES, EARS, NOSE AND THROAT: Normocephalic, atraumatic. NECK: Supple. HEART: Normal first and second heart sounds. No gallop or murmur. CHEST: Shows central trachea, equal bilateral expansion, air entry, vesicular breath sounds. I could not appreciate any crepitation or rhonchi anteriorly. ABDOMEN: Distended, soft, nontender. NEUROLOGIC: He is heavily sedated. His intake over the last 24 hours was 2400, output was 2500. LABORATORY DATA: His lab work as of this morning showed a white cell count down to 30,000, hemoglobin 9, hematocrit 28, MCV 90 and platelet count 312,000. His chemistry showed a serum sodium 137, potassium 5, chloride 100, bicarbonate 34, anion gap of 3, BUN 30, creatinine 0.8. Estimated GFR was 97 mL per minute. His glucose 188, calcium was 7.8, magnesium 2.4. Total bilirubin, AST, ALT, alkaline phosphatase were normal. Total protein 5.8, albumin was 2.4. ASSESSMENT: 1. The patient is status post cardiac arrest, likely due to hypoxia. He also has COVID-19 pneumonia as well as acute myocardial infarction. Apparently, the patient went into ventricular tachycardia to a shocked and also went into ventricular fibrillation, treated with CPR and epinephrine with return of spontaneous circulation. Yesterday, he developed an episode of bradycardia, bigeminy as well as atrial fibrillation with rapid ventricular response that has responded to IV digoxin. He is now in sinus rhythm. 2. Acute on chronic hypoxic respiratory failure. 3. Acute respiratory distress syndrome. 4. Acute exacerbation of chronic obstructive pulmonary disease. 5. COVID-19 pneumonia. 6. Atrial fibrillation with rapid ventricular response that is rate controlled and now he is off heparin. His Plavix and aspirin are on hold as in anticipation of tracheostomy tube placement. 7. Inferior ST segment elevation myocardial infarction. 8. Cardiogenic as well as septic shock. 9. The patient underwent cardiac catheterization for the second time, has revealed that the patient has recanalized his right coronary artery for which he was started on aspirin, Plavix and continued on heparin with a plan to do a high risk PCI and stent deployment. Given the large size of his coronary artery and this will be done after the patient was extubated, stabilized. PLAN: To continue with mechanical ventilation and sedation. Continue with Keppra for seizure disorder. His heparin was discontinued as well as his Plavix and aspirin in anticipation of the tracheostomy. Meanwhile, continue with gastrointestinal prophylaxis. Continue with deep venous thrombosis prophylaxis with SCDs. Continue with IV antibiotic in the form of linezolid vancomycin and piperacillin/tazobactam. I have cut down his steroids to 40 mg twice a day. PRUDENCIO DR: Vannessa TID: [id number]
[2021-09-07] MEDS: NOREPINEPHRINE VIAL 8 MG in IV DEXTROSE 5% 250 ML IV PRN ×3 (10:32→21:20)
[2021-09-07] MEDS: MIDAZOLAM 100mg/100ml NS BAG 100 ML IV PRN (10:34)
[2021-09-07] MEDS: PROPOFOL 100 ML IV PRN ×3 (10:34→22:06)
--- NOTE | 2021-09-07 11:12 | PDOC ---
Infectious Disease Note Subjective: Subjective Patient Intubated d/w RN on levophed,amiodarone More bleeding from nasal cavity NG tube clogged OGT placed Steroids being tapered off WBC 30K, C. difficile negative Vital Signs: Vital Signs Vital Signs Date Time Temp Pulse Resp B/P (MAP) Pulse Ox O2 Delivery O2 Flow Rate FiO2 09/07/21 08:00 Mechanical Ventilator 09/07/21 07:42 72 164/86 09/07/21 07:19 100 09/07/21 06:00 22 09/07/21 04:58 4.0 09/07/21 04:00 97.9 97.9 Physical Exam: PHYSICAL EXAM GENERAL: Intubated HEENT: No conjunctival petechia. ETT present, OGT present LUNGS: Coarse breath sounds in the bases, otherwise clear. HEART: S1, S2, irregular. I could not appreciate any murmurs. ABDOMEN: Soft, nontender, nondistended. Bowel sounds present. GENITOURINARY: Berumen in place. EXTREMITIES: Present no cyanosis. Right groin catheter removed, Right upper extremity PICC line placed on 08/23/2021.Lt 2nd digit black DERMATOLOGIC: Warm, dry, no generalized rash. NEUROLOGIC: Unable to assess. Medications: Inpatient Meds: Medications reviewed. Labs: Lab Laboratory Tests Test 09/07/21 05:30 White Blood Count 30.5 x10^3/uL (4.0-11.0) Red Blood Count 3.11 x10^6/uL (4.30-5.70) Hemoglobin 9.0 g/dL (13.0-17.5) Hematocrit 27.8 % (39.0-53.0) Mean Corpuscular Volume 90 fL (79-100) Mean Corpuscular Hemoglobin 29 pg (25-35) Mean Corpuscular Hemoglobin Concent 32 g/dL (31-37) Red Cell Distribution Width 15.4 % (11.5-14.5) Platelet Count 312 x10^3/uL (140-400) Neutrophils (%) (Auto) 91 % (31-73) Lymphocytes (%) (Auto) 4 % (24-48) Monocytes (%) (Auto) 5 % (0-9) Eosinophils (%) (Auto) 0 % (0-3) Basophils (%) (Auto) 0 % (0-3) Neutrophils # (Auto) 27.6 x10^3/uL (1.8-7.7) Lymphocytes # (Auto) 1.2 x10^3/uL (1.0-4.8) Monocytes # (Auto) 1.6 x10^3/uL (0.0-1.1) Eosinophils # (Auto) 0.0 x10^3/uL (0.0-0.7) Basophils # (Auto) 0.0 x10^3/uL (0.0-0.2) Sodium Level 137 mmol/L (136-145) Potassium Level 5.0 mmol/L (3.5-5.1) Chloride Level 100 mmol/L (98-107) Carbon Dioxide Level 34 mmol/L (21-32) Anion Gap 3 (6-14) Blood Urea Nitrogen 30 mg/dL (8-26) Creatinine 0.8 mg/dL (0.7-1.3) Estimated GFR (Cockcroft-Gault) 97.6 Glucose Level 188 mg/dL (70-99) Calcium Level 7.8 mg/dL (8.5-10.1) Magnesium Level 2.4 mg/dL (1.8-2.4) Objective: Assessment: Fever multifactorial s/p code ,possible aspiration resolved MRSE Bacterermia 08/22/2021.Central line was pulled out Acute hypoxic respiratory failure. COVID-19 pneumonia. Chronic obstructive pulmonary disease with possible underlying pulmonary fibrosis, aspiration pneumonia. Status post code atrial fibrillation with rapid ventricular response, ventricular fibrillation, status post defibrillation, epinephrine, bicarbonate drip, status post cardiac catheterization. IABP placement. Severe protein-calorie malnutrition. Abnormal liver function tests, likely shock liver. Anemia. Encephalopathy likely anoxic .Electrolyte abn Leucocytosis on steroids, also could be worsening from Bleeds epistaxis Black digit of Lt 2nd toe could be COVID C. difficile negative on 09/05/2021 Plan: Plan of Care cont Zosyn.zyvox NGT clogged, removed Trach and Peg placement on hold C. difficile is negative Follow bc neg so far UA negative local picc line care Critically Ill prognosis poor D/W significant other and son at bedside Discussed with RN. SOFIA LOWERY MD Sep 07, 2021 11:12
--- NOTE | 2021-09-07 11:50 | PDOC ---
Date of Service: DATE: 09/07/21 TIME: 11:44 Objective: Objective: No changes GI-cartagena per nursing. Reviewed notes - on ASA and Plavix, tracheostomy on hold. Pressors. Vital Signs: Vital Signs Date Time Temp Pulse Resp B/P (MAP) Pulse Ox O2 Delivery O2 Flow Rate FiO2 09/07/21 11:00 22 204/106 99 Ventilator 09/07/21 08:00 98.0 98.0 09/07/21 07:42 72 09/07/21 04:58 4.0 Labs: Laboratory Tests Test 09/07/21 05:30 White Blood Count 30.5 x10^3/uL Red Blood Count 3.11 x10^6/uL Hemoglobin 9.0 g/dL Hematocrit 27.8 % Mean Corpuscular Volume 90 fL Mean Corpuscular Hemoglobin 29 pg Mean Corpuscular Hemoglobin Concent 32 g/dL Red Cell Distribution Width 15.4 % Platelet Count 312 x10^3/uL Neutrophils (%) (Auto) 91 % Lymphocytes (%) (Auto) 4 % Monocytes (%) (Auto) 5 % Eosinophils (%) (Auto) 0 % Basophils (%) (Auto) 0 % Neutrophils # (Auto) 27.6 x10^3/uL Lymphocytes # (Auto) 1.2 x10^3/uL Monocytes # (Auto) 1.6 x10^3/uL Eosinophils # (Auto) 0.0 x10^3/uL Basophils # (Auto) 0.0 x10^3/uL Sodium Level 137 mmol/L Potassium Level 5.0 mmol/L Chloride Level 100 mmol/L Carbon Dioxide Level 34 mmol/L Anion Gap 3 Blood Urea Nitrogen 30 mg/dL Creatinine 0.8 mg/dL Estimated GFR (Cockcroft-Gault) 97.6 Glucose Level 188 mg/dL Calcium Level 7.8 mg/dL Magnesium Level 2.4 mg/dL Imaging: CXR 09/07 IMPRESSION: 1. The nasogastric tube has been advanced and is now intragastric. 2. The endotracheal tube and right PICC are in appropriate position. 3. No significant change in diffuse bilateral interstitial opacities. Trace ri ght pleural effusion. PE: GEN: intubated LUNGS: vent HEART: RR ABD: soft, non-distended NEURO/PSYCH: sedated A/P: COVID (recovered)/resp failure, s/p cardiac arrest/CAD, encephalopathy - on Plavix and ASA -- Trach and PEG on hold. Justicifation of Admission Dx: Justifications for Admission: Justification of Admission Dx: N/A GEOR[place]IA GUILLEN Sep 07, 2021 11:50
--- NOTE | 2021-09-07 13:10 | PDOC ---
CARDIOLOGY PROGRESS NOTE SUBJECTIVE: No new events overnight. BP stable. On Levophed. Minimally responsive. Labs, XR reviewed. Family at bedside. OBJECTIVE: Vital Signs/I&O: Vital Signs Date Time Temp Pulse Resp B/P (MAP) Pulse Ox O2 Delivery O2 Flow Rate FiO2 09/07/21 13:01 100 Ventilator 09/07/21 11:00 22 204/106 09/07/21 08:00 98.0 98.0 09/07/21 07:42 72 09/07/21 04:58 4.0 I & O 09/06/21 09/06/21 09/07/21 15:00 23:00 07:00 Intake Total 400 ml 925 ml 837.3 ml Output Total 325 ml 1200 ml 850 ml Balance 75 ml -275 ml -12.7 ml Objective: GEN.: No apparent distress. Sedated. HEENT: Head is normocephalic, atraumatic NECK: Supple. LUNGS: Clear to auscultation. HEART: RRR, S1, S2 present. Peripheral pulses intact ABDOMEN: Soft, nontender. Positive bowel sounds. EXTREMITIES: Without any cyanosis. NEUROLOGIC: Non-focal PSYCHIATRIC: SEdated SKIN: L second toe gangrene. Probably embolic CURRENT MEDICATIONS: asa, plavix, atorvastatin, amiodarone. Levophed DIAGNOSTIC TESTING: Labs reviewed. Labs: Laboratory Tests 09/07/21 05:30 Laboratory Tests Test 09/07/21 05:30 White Blood Count 30.5 x10^3/uL (4.0-11.0) H Red Blood Count 3.11 x10^6/uL (4.30-5.70) L Hemoglobin 9.0 g/dL (13.0-17.5) L Hematocrit 27.8 % (39.0-53.0) L Mean Corpuscular Volume 90 fL (79-100) Mean Corpuscular Hemoglobin 29 pg (25-35) Mean Corpuscular Hemoglobin Concent 32 g/dL (31-37) Red Cell Distribution Width 15.4 % (11.5-14.5) H Platelet Count 312 x10^3/uL (140-400) Neutrophils (%) (Auto) 91 % (31-73) H Lymphocytes (%) (Auto) 4 % (24-48) L Monocytes (%) (Auto) 5 % (0-9) Eosinophils (%) (Auto) 0 % (0-3) Basophils (%) (Auto) 0 % (0-3) Neutrophils # (Auto) 27.6 x10^3/uL (1.8-7.7) H Lymphocytes # (Auto) 1.2 x10^3/uL (1.0-4.8) Monocytes # (Auto) 1.6 x10^3/uL (0.0-1.1) H Eosinophils # (Auto) 0.0 x10^3/uL (0.0-0.7) Basophils # (Auto) 0.0 x10^3/uL (0.0-0.2) Sodium Level 137 mmol/L (136-145) Potassium Level 5.0 mmol/L (3.5-5.1) Chloride Level 100 mmol/L (98-107) Carbon Dioxide Level 34 mmol/L (21-32) H Anion Gap 3 (6-14) L Blood Urea Nitrogen 30 mg/dL (8-26) H Creatinine 0.8 mg/dL (0.7-1.3) Estimated GFR (Cockcroft-Gault) 97.6 Glucose Level 188 mg/dL (70-99) H Calcium Level 7.8 mg/dL (8.5-10.1) L ASSESSMENT: 1. Ischemic CMP 2. INferior STEMI 3. Acute on chronic resp failure. 4. Cardiac arrest. 5. Cardiogenic shock. 6. PAF PLAN: 1. Continue present medications. Would hold trach placement until next week. 2. Ok to stop plavix 3 days prior to trach and then restart when cleared by surgery service. 3. Supportive care. We will follow along. Justicifation of Admission Dx: Justifications for Admission: Justification of Admission Dx: N/A TEDDY ANGLIN MD Sep 07, 2021 13:10
--- NOTE | 2021-09-07 13:19 | NUR ---
[id number] ETT balloon leak earlier. Successful reinflation this time. NG right nare occluded / #16 OG placed w + placement per aspiration/air bolus. KUB pending. ETT leak again w overt volume loss. Sats maintaining 97%, Assist per ROLAND Estrella. Pt unable to pull TV. ETT cuff deflated .Advanced from 24-26 at the lip. X-ray for line verification confirmed "correct" by Dr Garibay. No audible leak at this time. TV 400-490 now. Scant amount bloody oropharyngeal secretions abating after suctioning. Pre medicated w RAAS -3 .
[2021-09-07] MEDS: ATORVASTATIN CALCIUM 40 MG TABLET. PO SCH (21:23)
[2021-09-08] VITALS (33 sets, daily range): BP systolic 73–187; BP diastolic 52–110
[2021-09-08] MEDS: PIPERACILLIN/TAZOBACTAM 4.5 GM in IV DEXTROSE 5% 100ML 100 ML IV SCH ×5 (00:26→23:46)
[2021-09-08] MEDS: MIDAZOLAM 100mg/100ml NS BAG 100 ML IV PRN (02:24)
[2021-09-08 06:11] LABS: HEMATOCRIT 26.1 % (39.0-53.0); HEMOGLOBIN 8.5 g/dL (13.0-17.5); RED BLOOD COUNT 2.94 x10^6/uL (4.30-5.70); RED CELL DISTRIBUTION WIDTH 15.6 % (11.5-14.5); WHITE BLOOD COUNT 27.5 x10^3/uL (4.0-11.0)
[2021-09-08 06:29] LABS: ALBUMIN 2.4 g/dL (3.4-5.0); ALBUMIN/GLOBULIN RATIO 0.8 (1.0-1.7); CALCIUM 7.7 mg/dL (8.5-10.1); CREATININE 0.7 mg/dL (0.7-1.3); GFR 113.9; POTASSIUM 4.7 mmol/L (3.5-5.1); TOTAL BILIRUBIN 0.7 mg/dL (0.2-1.0); TOTAL PROTEIN 5.6 g/dL (6.4-8.2)
[2021-09-08] MEDS: PROPOFOL 100 ML IV PRN ×3 (06:33→18:08)
--- NOTE | 2021-09-08 06:46 | PDOC ---
PULMONARY PROGRESS NOTES DATE: 09/08/21 TIME: 06:45 Subjective on vent peep 5 fio2 40% sedated on propofol versed fentanyl upper ext movement Vitals Vital Signs Date Time Temp Pulse Resp B/P (MAP) Pulse Ox O2 Delivery O2 Flow Rate FiO2 09/08/21 06:00 73 22 165/98 100 Ventilator 09/08/21 04:00 98.4 98.4 Comments ros unable to obtain sedated on vent HEENT: Other (nc at perrl nose clear orally intubated neck no lad no thyromegaly) Lungs: Crackles Cardiovascular: S1, S2 Abdomen: Soft, Non-tender Extremities: No Edema Skin: Warm Labs Laboratory Tests Test 09/07/21 05:30 09/08/21 05:50 White Blood Count 30.5 x10^3/uL (4.0-11.0) 27.5 x10^3/uL (4.0-11.0) Red Blood Count 3.11 x10^6/uL (4.30-5.70) 2.94 x10^6/uL (4.30-5.70) Hemoglobin 9.0 g/dL (13.0-17.5) 8.5 g/dL (13.0-17.5) Hematocrit 27.8 % (39.0-53.0) 26.1 % (39.0-53.0) Mean Corpuscular Volume 90 fL (79-100) 89 fL (79-100) Mean Corpuscular Hemoglobin 29 pg (25-35) 29 pg (25-35) Mean Corpuscular Hemoglobin Concent 32 g/dL (31-37) 33 g/dL (31-37) Red Cell Distribution Width 15.4 % (11.5-14.5) 15.6 % (11.5-14.5) Platelet Count 312 x10^3/uL (140-400) 287 x10^3/uL (140-400) Neutrophils (%) (Auto) 91 % (31-73) Lymphocytes (%) (Auto) 4 % (24-48) Monocytes (%) (Auto) 5 % (0-9) Eosinophils (%) (Auto) 0 % (0-3) Basophils (%) (Auto) 0 % (0-3) Neutrophils # (Auto) 27.6 x10^3/uL (1.8-7.7) Lymphocytes # (Auto) 1.2 x10^3/uL (1.0-4.8) Monocytes # (Auto) 1.6 x10^3/uL (0.0-1.1) Eosinophils # (Auto) 0.0 x10^3/uL (0.0-0.7) Basophils # (Auto) 0.0 x10^3/uL (0.0-0.2) Sodium Level 137 mmol/L (136-145) 140 mmol/L (136-145) Potassium Level 5.0 mmol/L (3.5-5.1) 4.7 mmol/L (3.5-5.1) Chloride Level 100 mmol/L (98-107) 101 mmol/L (98-107) Carbon Dioxide Level 34 mmol/L (21-32) 33 mmol/L (21-32) Anion Gap 3 (6-14) 6 (6-14) Blood Urea Nitrogen 30 mg/dL (8-26) 21 mg/dL (8-26) Creatinine 0.8 mg/dL (0.7-1.3) 0.7 mg/dL (0.7-1.3) Estimated GFR (Cockcroft-Gault) 97.6 113.9 Glucose Level 188 mg/dL (70-99) 168 mg/dL (70-99) Calcium Level 7.8 mg/dL (8.5-10.1) 7.7 mg/dL (8.5-10.1) Magnesium Level 2.4 mg/dL (1.8-2.4) BUN/Creatinine Ratio 30 (6-20) Total Bilirubin 0.7 mg/dL (0.2-1.0) Aspartate Amino Transf (AST/SGOT) 36 U/L (15-37) Alanine Aminotransferase (ALT/SGPT) 48 U/L (16-63) Alkaline Phosphatase 87 U/L (46-116) Total Protein 5.6 g/dL (6.4-8.2) Albumin 2.4 g/dL (3.4-5.0) Albumin/Globulin Ratio 0.8 (1.0-1.7) Triglycerides Level 166 mg/dL (0-150) Laboratory Tests Test 09/08/21 05:50 White Blood Count 27.5 x10^3/uL (4.0-11.0) Red Blood Count 2.94 x10^6/uL (4.30-5.70) Hemoglobin 8.5 g/dL (13.0-17.5) Hematocrit 26.1 % (39.0-53.0) Mean Corpuscular Volume 89 fL (79-100) Mean Corpuscular Hemoglobin 29 pg (25-35) Mean Corpuscular Hemoglobin Concent 33 g/dL (31-37) Red Cell Distribution Width 15.6 % (11.5-14.5) Platelet Count 287 x10^3/uL (140-400) Sodium Level 140 mmol/L (136-145) Potassium Level 4.7 mmol/L (3.5-5.1) Chloride Level 101 mmol/L (98-107) Carbon Dioxide Level 33 mmol/L (21-32) Anion Gap 6 (6-14) Blood Urea Nitrogen 21 mg/dL (8-26) Creatinine 0.7 mg/dL (0.7-1.3) Estimated GFR (Cockcroft-Gault) 113.9 BUN/Creatinine Ratio 30 (6-20) Glucose Level 168 mg/dL (70-99) Calcium Level 7.7 mg/dL (8.5-10.1) Total Bilirubin 0.7 mg/dL (0.2-1.0) Aspartate Amino Transf (AST/SGOT) 36 U/L (15-37) Alanine Aminotransferase (ALT/SGPT) 48 U/L (16-63) Alkaline Phosphatase 87 U/L (46-116) Total Protein 5.6 g/dL (6.4-8.2) Albumin 2.4 g/dL (3.4-5.0) Albumin/Globulin Ratio 0.8 (1.0-1.7) Triglycerides Level 166 mg/dL (0-150) Comments cxr reviewed 1. The nasogastric tube has been advanced and is now intragastric. 2. The endotracheal tube and right PICC are in appropriate position. 3. No significant change in diffuse bilateral interstitial opacities. Trace right pleural effusion. Impression . 1. Acute hypoxic respiratory failure secondary to COVID-19 pneumonia, acute respiratory distress syndrome and possible underlying fibrosis and emphysema., Extubated 08/20, reintubated 08/23 status post CODE BLUE/semi-CODE BLUE on 09/[address] chest 3. Hypernatremia 4. Suspected underlying severe chronic obstructive pulmonary disease. 5. COVID-19 viral pneumonia.--- Covid recovered 6. Abnormal chest x-ray with bilateral diffuse infiltrates related to COVID-19 viral pneumonia.--- Covid recovered 7. Patient reintubated 08/23, status post CODE BLUE 8. Abnormal x-ray from 08/15, possible ARDS, possible pulmonary edema, possible aspiration 9. ST elevation LA status post intra-aortic balloon pump--08/23/2021 10. Emergent cardiac catheterization revealing 90% stenotic lesion 11. Echocardiogram revealing ejection fraction of 35 to 40% pulmonary artery pressure of 34 inferior septal wall hypokinesis 12. Bacteremia Staph epidermidis 13. Necrotic toe left second, suspect related COVID Cardiac catheterization 08/30 Due to large vessel size a decision was made to defer stenting at this time for continued medical therapy. After the patient is fully extubated and depending on symptoms could consider PCI. Conclusion 1. Recanalized right coronary artery with brisk blood flow. 2. Residual proximal 70% RCA stenosis with significant ectasia of the RCA measuring up to 6.25 mm. 3. Normal left ventricular filling pressures. Recommendations 1. Continue aspirin, Plavix and heparin drip. 2. Continue plans for extubation. 3. After patient is extubated and stabilized depending on symptoms we will consider high risk PCI with specialized MegaTron stent given the large vessel size. Plan . 09/08 Updated 09/02 cont vent support setting reviewed, re consult neuro elevate hob Repeat LHC showed recanalized right coronary artery with brisk blood flow. Residual proximal 70% RCA stenosis with significant ectasia of the RCA measuring up to 6.25 mm. Patient currently off pressors no dose change per cardiology abx per id trach next week discussed w rn Updated 09/07 Hemodynamically stable ET tube was repositioned today, advanced to 3 cm Continue antibiotics per ID If fever remains stable we will proceed with tracheotomy, need to hold Plavix C. difficile negative So far cultures negative Updated 09/06 Continue current support Follow cardiology input Antibiotics per ID, leukocytosis increased today If remains clinically stable we will proceed with trach next week Repeat cultures negative Currently on Solu-Medrol every 12, 40 mg Chest x-ray reviewed, improving CCT 30 minutes, discussed with at the bedside STACIE BOO MD Sep 08, 2021 06:46
[2021-09-08] MEDS: CLOPIDOGREL BISULFATE 75 MG TABLET PO SCH (08:00)
[2021-09-08] MEDS: fentaNYL HIGH DOSE PCA 55 ML IV PRN (08:35)
[2021-09-08] MEDS: ASPIRIN CHEWABLE 81 MG TABLET. PO SCH (08:36)
[2021-09-08] MEDS: AMIODARONE HCL 200 MG TABLET. PO SCH (08:36)
[2021-09-08] MEDS: FAMOTIDINE 20 MG/2 ML VIAL IVP SCH ×2 (08:37→22:07)
[2021-09-08] MEDS: methylPREDNISolone SOD SUCC PF 40 MG/ML VIAL. IV SCH ×2 (08:37→22:06)
[2021-09-08] MEDS: levETIRAcetam 500 MG/5 ML ORAL SOLUTION. PEG SCH ×2 (09:56→22:07)
--- NOTE | 2021-09-08 10:04 | PN ---
DATE: 09/08/2021 SUBJECTIVE: The patient is resting, slightly propped up in bed, continued to be heavily sedated on propofol, Versed and fentanyl. He is not on Precedex and Levophed. His blood pressure is high, but apparently the Cardiology team want to keep it on a higher level. Nursing staff concerned that he seemed to be posturing and would like to arrange for a CT scan. Recommended a CT scan of the head to make sure he does not have any stroke before we proceed with tracheostomy and gastrostomy tube placement. PHYSICAL EXAMINATION: GENERAL: When I examined him, he was pale, but not jaundiced or cyanosed, no lymphadenopathy, no thyromegaly, no jugular venous distention. No limb edema. VITAL SIGNS: His heart rate was 65, blood pressure is 178/100, temperature was 98.4, respiratory rate was 22 and oxygen saturation was 99% on FiO2 of 50%. HEAD, EYES, EARS, NOSE, AND THROAT: Normocephalic, atraumatic. He has orotracheal and orogastric tube. NECK: Supple. HEART: Showed normal first and second heart sounds. No gallop or murmur. CHEST: Shows central trachea, equal bilateral chest expansion, air entry, vesicular breath sounds. No crepitation or rhonchi. ABDOMEN: Distended, soft, nontender. NEUROLOGIC: He is heavily sedated. He moves upper extremities and the waist seems to be posturing. He has an indwelling Berumen catheter. His intake was 2100, output was 2375. LABORATORY DATA: This morning showed a white cell count is trending down at 27,500, hemoglobin 8.5, hematocrit 26, MCV 89, platelet count 287,000. Serum sodium was 140, potassium 4.7, chloride 101, bicarbonate 33, anion gap of 6, BUN 21, creatinine 0.7. Estimated GFR was 113 mL per minute. His glucose 168, calcium was 7.7. Total bilirubin, AST, ALT, alkaline phosphatase were normal. Total protein 5.6, albumin was 2.4. His chest x-ray showed nasogastric tube has been advanced and he is now intragastric. The endotracheal tube and right PICC line are in appropriate position. No significant change in diffuse bilateral interstitial opacities. He has trace right sided pleural effusion. ASSESSMENT: 1. The patient is status post cardiac arrest likely due to hypoxia. He also has COVID-19 pneumonia as well as acute myocardial infarction. Apparently, the patient went into ventricular tachycardia, it was shocked and also went into ventricular fibrillation, treated with CPR and epinephrine with return of spontaneous circulation. He also developed an episode of bradycardia, bigeminy as well as atrial fibrillation with rapid ventricular response that has responded to IV digoxin. He is now in sinus rhythm. 2. Acute on chronic hypoxic respiratory failure. 3. Acute respiratory distress syndrome. 4. Acute exacerbation of chronic obstructive pulmonary disease. 5. COVID-19 pneumonia. 6. Atrial fibrillation with rapid ventricular response, rate controlled. He is off heparin. His Plavix was also on hold. He was only on aspirin for the time being in anticipation for tracheostomy and gastrostomy tube placement. 7. Inferior ST segment elevation myocardial infarction. 8. Cardiogenic as well as septic shock. 9. The patient underwent cardiac catheterization for the second time and that has revealed that the patient has recanalized his right coronary artery for which he was started on aspirin and Plavix with a plan to do a high risk PCI and stent deployment. Given the large size of the coronary artery, this will be done after the patient was extubated and stabilized. PLAN: To continue mechanical ventilation and sedation. Continue with Keppra for seizure disorder. His heparin and Plavix was discontinued. Continue the antibiotic. Continue with DVT prophylaxis. Continue GI prophylaxis. PRUDENCIO DR: Vannessa TID: [id number]
--- NOTE | 2021-09-08 11:34 | PDOC ---
Infectious Disease Note Subjective: Subjective Patient Intubated d/w RN on levophed,amiodarone No more bleeding from nasal cavity Just returned from CT Head Steroids being tapered off WBC 30K--> 27 K today Vital Signs: Vital Signs Vital Signs Date Time Temp Pulse Resp B/P (MAP) Pulse Ox O2 Delivery O2 Flow Rate FiO2 09/08/21 11:20 153/106 09/08/21 11:05 70 22 100 Ventilator 09/08/21 08:00 98.5 98.5 Physical Exam: PHYSICAL EXAM GENERAL: Intubated HEENT: No conjunctival petechia. ETT present, OGT present LUNGS: Coarse breath sounds in the bases, otherwise clear. HEART: S1, S2, irregular. I could not appreciate any murmurs. ABDOMEN: Soft, nontender, nondistended. Bowel sounds present. GENITOURINARY: Berumen in place. EXTREMITIES: Present no cyanosis. Right groin catheter removed, Right upper extremity PICC line placed on 08/23/2021.Lt 2nd digit black DERMATOLOGIC: Warm, dry, no generalized rash. NEUROLOGIC: Unable to assess. Medications: Inpatient Meds: Medications reviewed. Labs: Lab Laboratory Tests Test 09/08/21 05:50 White Blood Count 27.5 x10^3/uL (4.0-11.0) Red Blood Count 2.94 x10^6/uL (4.30-5.70) Hemoglobin 8.5 g/dL (13.0-17.5) Hematocrit 26.1 % (39.0-53.0) Mean Corpuscular Volume 89 fL (79-100) Mean Corpuscular Hemoglobin 29 pg (25-35) Mean Corpuscular Hemoglobin Concent 33 g/dL (31-37) Red Cell Distribution Width 15.6 % (11.5-14.5) Platelet Count 287 x10^3/uL (140-400) Sodium Level 140 mmol/L (136-145) Potassium Level 4.7 mmol/L (3.5-5.1) Chloride Level 101 mmol/L (98-107) Carbon Dioxide Level 33 mmol/L (21-32) Anion Gap 6 (6-14) Blood Urea Nitrogen 21 mg/dL (8-26) Creatinine 0.7 mg/dL (0.7-1.3) Estimated GFR (Cockcroft-Gault) 113.9 BUN/Creatinine Ratio 30 (6-20) Glucose Level 168 mg/dL (70-99) Calcium Level 7.7 mg/dL (8.5-10.1) Total Bilirubin 0.7 mg/dL (0.2-1.0) Aspartate Amino Transf (AST/SGOT) 36 U/L (15-37) Alanine Aminotransferase (ALT/SGPT) 48 U/L (16-63) Alkaline Phosphatase 87 U/L (46-116) Total Protein 5.6 g/dL (6.4-8.2) Albumin 2.4 g/dL (3.4-5.0) Albumin/Globulin Ratio 0.8 (1.0-1.7) Triglycerides Level 166 mg/dL (0-150) Objective: Assessment: Fever multifactorial s/p code ,possible aspiration resolved MRSE Bacterermia 08/22/2021.Central line was pulled out Acute hypoxic respiratory failure. COVID-19 pneumonia. Chronic obstructive pulmonary disease with possible underlying pulmonary fibrosis, aspiration pneumonia. Status post code atrial fibrillation with rapid ventricular response, ventricular fibrillation, status post defibrillation, epinephrine, bicarbonate drip, status post cardiac catheterization. IABP placement. Severe protein-calorie malnutrition. Abnormal liver function tests, likely shock liver. Anemia. Encephalopathy likely anoxic .Electrolyte abn Leucocytosis on steroids, also could be worsening from Bleeds epistaxis Black digit of Lt 2nd toe could be COVID C. difficile negative on 09/05/2021 Plan: Plan of Care WBC decreasing slowly at 27K today Cont Zosyn.zyvox NGT clogged, removed,OGT placed Trach and Peg placement on hold C. difficile is negative Follow bc neg so far UA negative F/U CT Head done as pt had seizure like activity during last cardiac cath local picc line care Critically Ill prognosis poor D/W significant othe at bedside Discussed with RN. SOFIA LOWERY MD Sep 08, 2021 11:34
--- NOTE | 2021-09-08 12:43 | PDOC ---
PROGRESS NOTES Date of Service DATE: 09/08/21 TIME: 12:40 Subjective Subjective Patient seen and evaluated. Objective Objective Vital Signs Date Time Temp Pulse Resp B/P (MAP) Pulse Ox O2 Delivery O2 Flow Rate FiO2 09/08/21 11:31 99 Ventilator 09/08/21 11:20 153/106 09/08/21 11:05 70 22 09/08/21 08:00 98.5 98.5 09/07/21 04:58 4.0 Intake and Output 09/08/21 07:00 Intake Total 1959.1 ml Output Total 2955 ml Balance -995.9 ml Intake Oral 0 ml IV Total 1959.1 ml Output Urine Total 2950 ml Gastric Drainage Total 5 ml Physical Exam Physical Exam Visual examination as per Covid guidelines. Assessment Assessment S/P cardiac arrest; multifactorial. Noted with VT shock x1. approximately <3 min to ROSC. Rhythm now stable. Continuing present treatment. Acute on chronic respiratory failure with COVID PNA, ARDS. unable to be weaned from vent. CAD, inferior STEMI with embolic disease. Initial LHC with thrombotic distal right posterior descending artery and right posterior lateral artery occlusion. There was moderate 50% proximal and 90% mid stenosis appeared to have significant thrombotic burden with ectasia and dilation of the coronary artery. Repeat LHC showed recanalized RCA with brisk blood flow. Residual proximal 70% RCA stenosis with significant ectasia of the RCA measuring up to 6.25 mm. Cardiogenic shock; IABP removed. CXR with improvement Acute on chronic systolic CHF, ICM: EF at 35-40%. AFIB RVR. S/p IV Dig. Convert garcia to SR and HR presently near 80. Bradyarrhythmia; episode of bradycardia (lowest 31) with brief loss of pulse / requiring brief CPR. Echo not significant changes. Trop without significant elevation, trending downward. Hyperlipidemia; statin Black distal phalanx to left 2nd toe: possibly r/t to covid-19. no significnat PAD per duplex Leukocytosis, ? sepsis. Hypotensive requiring pressor support. Followed by ID. Comment Review of Relevant I have reviewed the following items shey (where applicable) has been applied. Labs Laboratory Tests Test 09/07/21 05:30 09/08/21 05:50 White Blood Count 30.5 x10^3/uL (4.0-11.0) 27.5 x10^3/uL (4.0-11.0) Red Blood Count 3.11 x10^6/uL (4.30-5.70) 2.94 x10^6/uL (4.30-5.70) Hemoglobin 9.0 g/dL (13.0-17.5) 8.5 g/dL (13.0-17.5) Hematocrit 27.8 % (39.0-53.0) 26.1 % (39.0-53.0) Mean Corpuscular Volume 90 fL (79-100) 89 fL (79-100) Mean Corpuscular Hemoglobin 29 pg (25-35) 29 pg (25-35) Mean Corpuscular Hemoglobin Concent 32 g/dL (31-37) 33 g/dL (31-37) Red Cell Distribution Width 15.4 % (11.5-14.5) 15.6 % (11.5-14.5) Platelet Count 312 x10^3/uL (140-400) 287 x10^3/uL (140-400) Neutrophils (%) (Auto) 91 % (31-73) Lymphocytes (%) (Auto) 4 % (24-48) Monocytes (%) (Auto) 5 % (0-9) Eosinophils (%) (Auto) 0 % (0-3) Basophils (%) (Auto) 0 % (0-3) Neutrophils # (Auto) 27.6 x10^3/uL (1.8-7.7) Lymphocytes # (Auto) 1.2 x10^3/uL (1.0-4.8) Monocytes # (Auto) 1.6 x10^3/uL (0.0-1.1) Eosinophils # (Auto) 0.0 x10^3/uL (0.0-0.7) Basophils # (Auto) 0.0 x10^3/uL (0.0-0.2) Sodium Level 137 mmol/L (136-145) 140 mmol/L (136-145) Potassium Level 5.0 mmol/L (3.5-5.1) 4.7 mmol/L (3.5-5.1) Chloride Level 100 mmol/L (98-107) 101 mmol/L (98-107) Carbon Dioxide Level 34 mmol/L (21-32) 33 mmol/L (21-32) Anion Gap 3 (6-14) 6 (6-14) Blood Urea Nitrogen 30 mg/dL (8-26) 21 mg/dL (8-26) Creatinine 0.8 mg/dL (0.7-1.3) 0.7 mg/dL (0.7-1.3) Estimated GFR (Cockcroft-Gault) 97.6 113.9 Glucose Level 188 mg/dL (70-99) 168 mg/dL (70-99) Calcium Level 7.8 mg/dL (8.5-10.1) 7.7 mg/dL (8.5-10.1) Magnesium Level 2.4 mg/dL (1.8-2.4) BUN/Creatinine Ratio 30 (6-20) Total Bilirubin 0.7 mg/dL (0.2-1.0) Aspartate Amino Transf (AST/SGOT) 36 U/L (15-37) Alanine Aminotransferase (ALT/SGPT) 48 U/L (16-63) Alkaline Phosphatase 87 U/L (46-116) Total Protein 5.6 g/dL (6.4-8.2) Albumin 2.4 g/dL (3.4-5.0) Albumin/Globulin Ratio 0.8 (1.0-1.7) Triglycerides Level 166 mg/dL (0-150) Laboratory Tests Test 09/08/21 05:50 White Blood Count 27.5 x10^3/uL (4.0-11.0) Red Blood Count 2.94 x10^6/uL (4.30-5.70) Hemoglobin 8.5 g/dL (13.0-17.5) Hematocrit 26.1 % (39.0-53.0) Mean Corpuscular Volume 89 fL (79-100) Mean Corpuscular Hemoglobin 29 pg (25-35) Mean Corpuscular Hemoglobin Concent 33 g/dL (31-37) Red Cell Distribution Width 15.6 % (11.5-14.5) Platelet Count 287 x10^3/uL (140-400) Sodium Level 140 mmol/L (136-145) Potassium Level 4.7 mmol/L (3.5-5.1) Chloride Level 101 mmol/L (98-107) Carbon Dioxide Level 33 mmol/L (21-32) Anion Gap 6 (6-14) Blood Urea Nitrogen 21 mg/dL (8-26) Creatinine 0.7 mg/dL (0.7-1.3) Estimated GFR (Cockcroft-Gault) 113.9 BUN/Creatinine Ratio 30 (6-20) Glucose Level 168 mg/dL (70-99) Calcium Level 7.7 mg/dL (8.5-10.1) Total Bilirubin 0.7 mg/dL (0.2-1.0) Aspartate Amino Transf (AST/SGOT) 36 U/L (15-37) Alanine Aminotransferase (ALT/SGPT) 48 U/L (16-63) Alkaline Phosphatase 87 U/L (46-116) Total Protein 5.6 g/dL (6.4-8.2) Albumin 2.4 g/dL (3.4-5.0) Albumin/Globulin Ratio 0.8 (1.0-1.7) Triglycerides Level 166 mg/dL (0-150) Microbiology 09/05/21 Urine Culture - Final, Complete 09/05/21 Blood Culture - Preliminary, Resulted NO GROWTH AFTER 2 DAYS 08/23/21 Respiratory Culture Gram Stain - Final, Complete 08/23/21 Respiratory Culture - Final, Complete Medications Current Medications Dexamethasone Sodium Phosphate (Decadron) 6 mg DAILY IVP Last administered on 08/10/21at 08:29; Start 08/01/21 at 09:00; Stop 08/10/21 at 09:01; Status DC Heparin Sodium (Porcine) (Heparin Sodium) 5,000 unit Q8HRS SQ Last administered on 08/20/21at 05:41; Start 07/31/21 at 14:00; Stop 08/20/21 at 08:37; Status DC Famotidine (Pepcid Vial) 20 mg BID IVP Last administered on 09/08/21at 08:37; Start 07/31/21 at 14:00 Fentanyl Citrate 30 ml @ 2.5 mls/hr CONT PRN IV SEE PROTOCOL Last administered on 07/31/21at 12:49; Start 07/31/21 at 12:15; Stop 07/31/21 at 16:19; Status DC Midazolam HCl 100 ml @ 1 mls/hr CONT PRN IV SEE PROTOCOL Last administered on 09/08/21at 02:24; Start 07/31/21 at 12:15 Propofol 100 ml @ 3.45 mls/hr CONT PRN IV PER PROTOCOL Last administered on 09/08/21at 12:28; Start 07/31/21 at 12:15 Vecuronium Warren (Norcuron Bolus) 6 mg PRN 1X PRN IV VENT INDUCTION; Start 07/31/21 at 12:15; Stop 08/01/21 at 12:14; Status DC Glycerin/ Hypromellose/ Polyethylene (Artificial Tears) 1 drop PRN Q1HR PRN OU DRY EYE; Start 07/31/21 at 12:15 Dexmedetomidine HCl 400 mcg/ Sodium Chloride 100 ml @ 0 mls/hr CONT PRN IV PER PROTOCOL Last administered on 08/17/21at 12:55; Start 07/31/21 at 12:15 Midazolam HCl (Versed) 5 mg PRN 1X PRN IVP VENT INDUCTION; Start 07/31/21 at 12:15; Stop 08/01/21 at 12:14; Status DC Sodium Chloride 500 ml @ 500 mls/hr 1X PRN PRN IV SEE COMMENTS; Start 07/31/21 at 12:15 Atropine Sulfate (ATROPINE 0.5mg SYRINGE) 0.5 mg PRN Q5MIN PRN IV SEE COMMENTS; Start 07/31/21 at 12:15 Famotidine (Pepcid Vial) 20 mg BID IVP ; Start 07/31/21 at 21:00; Status UNV Piperacillin Sod/ Tazobactam Sod (Zosyn Per Pharmacy) 1 each PRN DAILY PRN MC SEE COMMENTS; Start 07/31/21 at 15:15; Stop 08/08/21 at 12:29; Status DC Piperacillin Sod/ Tazobactam Sod 3.375 gm/Sodium Chloride 50 ml @ 100 mls/hr Q6HRS IV Last administered on 08/07/21at 11:20; Start 07/31/21 at 18:00; Stop 08/07/21 at 17:59; Status DC Fentanyl Citrate 55 ml @ 1 mls/hr CONT PRN IV SEE PROTOCOL Last administered on 09/08/21at 08:35; Start 07/31/21 at 15:45 Insulin Human Lispro (HumaLOG) 0-7 UNITS Q6HRS SQ ; Start 08/02/21 at 06:00; Stop 08/07/21 at 08:09; Status DC Dextrose (Dextrose 50%-Water Syringe) 12.5 gm PRN Q15MIN PRN IV SEE COMMENTS; Start 08/01/21 at 23:00 Vecuronium Warren (Norcuron Bolus) 6 mg PRN Q6HRS PRN IV VENTILATOR COMPLIANCE Last administered on 08/28/21at 02:57; Start 08/06/21 at 13:45 Vecuronium Warren (Norcuron Bolus) 10 mg STK-MED ONCE IV ; Start 08/06/21 at 13:34; Stop 08/07/21 at 13:38; Status DC Sterile Water (WATER for RESP) 1,000 ml CONT PRN INH VIA VAPOTHERM DEVICE; Start 08/12/21 at 09:45; Status Cancel Dexamethasone Sodium Phosphate (Decadron) 6 mg DAILY IVP ; Start 08/17/21 at 09:00; Stop 08/16/21 at 13:31; Status DC Dexamethasone Sodium Phosphate (Decadron) 10 mg 1X ONCE IV ; Start 08/16/21 at 12:30; Stop 08/16/21 at 13:31; Status DC Acetaminophen (Tylenol) 650 mg PRN Q6HRS PRN PEG MILD PAIN / TEMP > 100.3'F Last administered on 08/20/21at 03:50; Start 08/17/21 at 00:15 Heparin Sodium (Porcine) (Heparin Sodium) 5,000 unit Q8HRS SQ Last administered on 08/23/21at 05:39; Start 08/21/21 at 14:00; Stop 08/23/21 at 18:33; Status DC Fentanyl Citrate (Fentanyl 2ml Vial) 25 mcg PRN Q5MIN PRN IVP MILD PAIN 1-3; Start 08/21/21 at 06:00; Stop 08/22/21 at 05:59; Status DC Fentanyl Citrate (Fentanyl 2ml Vial) 50 mcg PRN Q5MIN PRN IVP MODERATE PAIN 4- 6; Start 08/21/21 at 06:00; Stop 08/22/21 at 05:59; Status DC Morphine Sulfate (Morphine Sulfate) 1 mg PRN Q10MIN PRN IVP SEVERE PAIN 7-10; Start 08/21/21 at 06:00; Stop 08/22/21 at 05:59; Status DC Ringer's Solution 1,000 ml @ 30 mls/hr Q24H IV ; Start 08/21/21 at 06:00; Stop 08/21/21 at 17:59; Status DC Hydromorphone HCl (Dilaudid) 0.5 mg PRN Q10MIN PRN IVP SEVERE PAIN 7-10, 2nd CHOICE; Start 08/21/21 at 06:00; Stop 08/22/21 at 05:59; Status DC Prochlorperazine Edisylate (Compazine) 5 mg PACU PRN PRN IVP NAUSEA, MRX1; Start 08/21/21 at 06:00; Stop 08/22/21 at 05:59; Status DC Haloperidol Lactate (Haldol Inj) 5 mg PRN Q8HRS PRN IVP AGITATION; Start 08/22/21 at 10:45; Stop 08/22/21 at 10:45; Status DC Haloperidol Lactate (Haldol Inj) 5 mg Q8HRS IVP Last administered on 08/23/21at 05:38; Start 08/22/21 at 11:00; Stop 08/24/21 at 13:52; Status DC Acetaminophen (Tylenol Supp) 650 mg Q4H ONCE MT Last administered on 08/22/21at 11:45; Start 08/22/21 at 11:30; Stop 08/22/21 at 11:31; Status DC Vancomycin HCl (Vanco Per Pharmacy) 1 each PRN DAILY PRN MC SEE COMMENTS Last administered on 08/23/21at 12:21; Start 08/22/21 at 11:30; Stop 08/24/21 at 09:14; Status DC Piperacillin Sod/ Tazobactam Sod (Zosyn Per Pharmacy) 1 each PRN DAILY PRN MC SEE COMMENTS; Start 08/22/21 at 11:30 Piperacillin Sod/ Tazobactam Sod 4.5 gm/Dextrose 100 ml @ 200 mls/hr Q6HRS IV Last administered on 09/08/21at 12:27; Start 08/22/21 at 12:00 Vancomycin HCl 2 gm/Sodium Chloride 500 ml @ 250 mls/hr 1X ONCE IV Last administered on 08/22/21at 12:34; Start 08/22/21 at 13:00; Stop 08/22/21 at 14:59; Status DC Acetaminophen (Tylenol Supp) 650 mg PRN Q4HRS PRN MT MILD PAIN / TEMP > 100.3'F Last administered on 08/22/21at 23:32; Start 08/22/21 at 11:45 Dextrose/Lactated Ringer's 1,000 ml @ 80 mls/hr [id number] IV Last administered on 08/31/21at 21:16; Start 08/22/21 at 12:45; Stop 09/01/21 at 12:01; Status DC Vancomycin HCl 1 gm/Sodium Chloride 250 ml @ 250 mls/hr Q8H IV Last administered on 08/24/21at 04:00; Start 08/22/21 at 20:00; Stop 08/24/21 at 09:14; Status DC Vancomycin HCl (Vancomycin Trough Level) 1 each 1X ONCE MC ; Start 08/23/21 at 11:30; Stop 08/24/21 at 09:14; Status DC Etomidate (Amidate) 20 mg STK-MED ONCE IV ; Start 08/23/21 at 11:25; Stop 08/23/21 at 11:25; Status DC Succinylcholine Chloride (Anectine) 200 mg STK-MED ONCE .ROUTE ; Start 08/23/21 at 11:25; Stop 08/23/21 at 11:26; Status DC Etomidate (Amidate) 20 mg 1X ONCE IV Last administered on 08/23/21at 12:21; Start 08/23/21 at 12:15; Stop 08/23/21 at 12:16; Status DC Succinylcholine Chloride (Anectine) 100 mg 1X ONCE IV Last administered on 08/23/21at 12:21; Start 08/23/21 at 12:15; Stop 08/23/21 at 12:16; Status DC Methylprednisolone Sodium Succinate (SOLU-Medrol 125MG VIAL) 125 mg Q8HRS IV Last administered on 09/01/21at 06:08; Start 08/23/21 at 14:00; Stop 09/01/21 at 12:01; Status DC Furosemide (Lasix) 40 mg 1X ONCE IVP Last administered on 08/23/21at 13:19; Start 08/23/21 at 12:45; Stop 08/23/21 at 12:56; Status DC Furosemide (Lasix) 40 mg DAILY IVP Last administered on 08/24/21at 07:24; Start 08/24/21 at 09:00; Stop 08/24/21 at 11:24; Status DC Digoxin (Lanoxin) 500 mcg 1X ONCE IV Last administered on 08/23/21at 15:16; Start 08/23/21 at 15:30; Stop 08/23/21 at 15:31; Status DC Amiodarone HCl 150 mg/Dextrose 103 ml @ 600 mls/hr 1X ONCE IV ; Start 08/23/21 at 16:00; Stop 08/23/21 at 16:10; Status DC Amiodarone HCl 450 mg/Dextrose 259 ml @ 33 mls/hr CONT PRN IV SEE I/O RECORD Last administered on 08/24/21at 01:22; Start 08/23/21 at 16:00; Stop 08/24/21 at 15:59; Status DC Iodixanol (Visipaque 320) 100 ml STK-MED ONCE .ROUTE ; Start 08/23/21 at 16:00; Stop 08/23/21 at 16:00; Status DC Lidocaine HCl (Lidocaine 1% 20ml Vial) 20 ml STK-MED ONCE .ROUTE ; Start 08/23/21 at 16:00; Stop 08/23/21 at 16:00; Status DC Heparin Sodium/ Sodium Chloride 1,500 ml @ As Directed STK-MED ONCE .ROUTE ; Start 08/23/21 at 16:00; Stop 08/23/21 at 16:00; Status DC Amiodarone HCl (Cordarone) 150 mg STK-MED ONCE .ROUTE ; Start 08/23/21 at 16:01; Stop 08/23/21 at 16:01; Status DC Amiodarone HCl (Cordarone) 150 mg 1X ONCE IVP Last administered on 08/23/21at 16:23; Start 08/23/21 at 16:15; Stop 08/23/21 at 16:16; Status DC Aspirin (Aspirin Chewable) 324 mg 1X ONCE PO Last administered on 08/23/21at 16:07; Start 08/23/21 at 16:15; Stop 08/23/21 at 16:16; Status DC Aspirin (Aspirin Chewable) 81 mg STK-MED ONCE .ROUTE ; Start 08/23/21 at 16:06; Stop 08/23/21 at 16:06; Status DC Heparin Sodium (Porcine) (Heparin Sodium) 10,000 unit STK-MED ONCE .ROUTE ; Start 08/23/21 at 16:23; Stop 08/23/21 at 16:24; Status DC Verapamil HCl (Verapamil) 5 mg STK-MED ONCE .ROUTE ; Start 08/23/21 at 16:23; Stop 08/23/21 at 16:24; Status DC Nitroglycerin (Nitroglycerin) 200 mcg STK-MED ONCE .ROUTE ; Start 08/23/21 at 16:23; Stop 08/23/21 at 16:24; Status DC Aspirin (Aspirin Chewable) 81 mg DAILYWBKFT PO Last administered on 09/08/21at 08:36; Start 08/24/21 at 08:00 Phenylephrine HCl 50 mg/Sodium Chloride 255 ml @ 14.351 mls/ hr CONT PRN IV PER PROTOCOL Last administered on 08/23/21at 16:42; Start 08/23/21 at 16:45 Phenylephrine HCl (PHENYLEPHRINE in 0.9% NACL PF) 1 mg STK-MED ONCE IV ; Start 08/23/21 at 16:41; Stop 08/23/21 at 16:41; Status DC Heparin Sodium (Porcine) (Heparin Sodium) 10,000 unit STK-MED ONCE .ROUTE ; Start 08/23/21 at 16:47; Stop 08/23/21 at 16:47; Status DC Norepinephrine Bitartrate 8 mg/ Dextrose 258 ml @ 18.15 mls/ hr CONT PRN IV PER PROTOCOL Last administered on 09/07/21at 21:20; Start 08/23/21 at 17:00 Iodixanol (Visipaque 320) 100 ml STK-MED ONCE .ROUTE ; Start 08/23/21 at 17:07; Stop 08/23/21 at 17:07; Status DC Nitroglycerin (Nitroglycerin) 200 mcg 1X ONCE IART Last administered on 08/23/21at 16:35; Start 08/23/21 at 17:15; Stop 08/23/21 at 17:16; Status DC Verapamil HCl (Verapamil) 2.5 mg 1X ONCE IART Last administered on 08/23/21at 16:35; Start 08/23/21 at 17:15; Stop 08/23/21 at 17:16; Status DC Heparin Sodium (Porcine) (Heparin Sodium) 2,500 unit 1X ONCE IART Last administered on 08/23/21at 16:42; Start 08/23/21 at 17:15; Stop 08/23/21 at 17:16; Status DC Heparin Sodium/ Sodium Chloride (HEPARIN for ARTERIAL LINE FLUSH) 1,000 unit 1X ONCE IART Last administered on 08/23/21at 17:15; Start 08/23/21 at 17:15; Stop 08/23/21 at 17:16; Status DC Heparin Sodium/ Sodium Chloride (HEPARIN for ARTERIAL LINE FLUSH) 4,000 unit 1X ONCE IV Last administered on 08/23/21at 17:15; Start 08/23/21 at 17:15; Stop 08/23/21 at 17:16; Status DC Iodixanol (Visipaque 320) 100 ml 1X ONCE IART Last administered on 08/23/21at 17:15; Start 08/23/21 at 17:15; Stop 08/23/21 at 17:16; Status DC Heparin Sodium (Porcine) (Heparin Sodium) 5,000 unit 1X ONCE INT CAT Last administered on 08/23/21at 16:52; Start 08/23/21 at 17:15; Stop 08/23/21 at 17:16; Status DC Tirofiban/Sodium Chloride 250 ml @ As Directed STK-MED ONCE IV ; Start 08/23/21 at 17:18; Stop 08/23/21 at 17:18; Status DC Tirofiban/Sodium Chloride 250 ml @ 16.884 mls/ hr CONT PRN IV PER PROTOCOL Last administered on 08/23/21at 17:16; Start 08/23/21 at 17:45; Stop 08/24/21 at 11:44; Status DC Heparin Sodium (Porcine) (Heparin Sodium) 5,000 unit 1X ONCE IV Last administered on 08/23/21at 17:09; Start 08/23/21 at 18:30; Stop 08/23/21 at 18:31 ; Status DC Levetiracetam 100 ml @ 400 mls/hr Q12HR IV Last administered on 08/26/21at 11:29; Start 08/23/21 at 21:00; Stop 08/26/21 at 21:06; Status DC Heparin Sodium/ Dextrose 250 ml @ 11.256 mls/ hr CONT PRN IV PER PROTOCOL Last administered on 09/04/21at 05:21; Start 08/23/21 at 18:45; Stop 09/04/21 at 16:22; Status DC Heparin Sodium (Porcine) (Heparin Sodium) 2,350 unit PRN Q6HRS PRN IV FOR UFH LEVEL LESS THAN 0.2 Last administered on 08/27/21at 01:28; Start 08/23/21 at 18:45; Stop 09/04/21 at 16:22; Status DC Clopidogrel Bisulfate (Plavix) 600 mg 1X ONCE PO Last administered on 08/23/21at 22:06; Start 08/23/21 at 22:30; Stop 08/23/21 at 22:31; Status DC Potassium Chloride/Water 100 ml @ 100 mls/hr Q1H IV Last administered on 08/24/21at 02:00; Start 08/23/21 at 22:00; Stop 08/24/21 at 01:59; Status DC Daptomycin 520 mg/ Sodium Chloride 50 ml @ 100 mls/hr Q24H IV Last administered on 08/26/21at 12:57; Start 08/24/21 at 11:00; Stop 08/27/21 at 08:17; Status DC Linezolid (Zyvox) 600 mg BID PO Last administered on 09/01/21at 08:32; Start 08/24/21 at 10:00; Stop 09/01/21 at 09:30; Status DC Amiodarone HCl (Cordarone) 200 mg DAILY PO Last administered on 09/08/21at 08:36; Start 08/24/21 at 12:00 Furosemide (Lasix) 40 mg DAILY IVP Last administered on 09/04/21at 10:50; Start 08/25/21 at 09:00; Stop 09/05/21 at 17:31; Status DC Atorvastatin Calcium (Lipitor) 20 mg QHS PO Last administered on 08/26/21at 22:04; Start 08/24/21 at 21:00; Stop 08/27/21 at 13:59; Status DC Clopidogrel Bisulfate (Plavix) 75 mg 1X ONCE PO ; Start 08/24/21 at 11:30; Stop 08/24/21 at 11:31; Status UNV Clopidogrel Bisulfate (Plavix) 75 mg DAILYWBKFT PO Last administered on 09/07/21at 07:41; Start 08/24/21 at 12:00 Epinephrine HCl (EPINEPHrine SYRINGE) 1 mg STK-MED ONCE .ROUTE ; Start 08/23/21 at 17:00; Stop 08/24/21 at 12:21; Status DC Sodium Bicarbonate (Sodium Bicarb Adult 8.4% Syr) 50 meq STK-MED ONCE .ROUTE ; Start 08/23/21 at 17:00; Stop 08/24/21 at 12:21; Status DC Potassium Chloride/Water 100 ml @ 100 mls/hr Q1H IV Last administered on 08/25/21at 13:32; Start 08/25/21 at 10:00; Stop 08/25/21 at 12:59; Status DC Potassium Chloride/Water 100 ml @ 100 mls/hr Q1H IV Last administered on 08/26/21at 10:05; Start 08/26/21 at 09:00; Stop 08/26/21 at 11:59; Status DC Potassium Bicarbonate (Potassium Effervescent Tablet) 60 meq 1X ONCE PO Last administered on 08/26/21at 13:51; Start 08/26/21 at 10:30; Stop 08/26/21 at 10:31; Status DC Levetiracetam 500 mg/Dextrose 105 ml @ 100 mls/hr Q12HR IV Last administered on 08/28/21at 09:00; Start 08/26/21 at 21:30; Stop 08/28/21 at 12:27; Status DC Potassium Bicarbonate (Potassium Effervescent Tablet) 20 meq TID PO Last administered on 09/04/21at 21:00; Start 08/27/21 at 09:30; Stop 09/05/21 at 16:54; Status DC Losartan Potassium (Cozaar) 25 mg DAILY PO Last administered on 09/04/21at 10:08; Start 08/27/21 at 15:00; Stop 09/05/21 at 17:07; Status DC Spironolactone (Aldactone) 25 mg DAILY PO Last administered on 09/04/21at 13:00; Start 08/27/21 at 15:00; Stop 09/05/21 at 17:08; Status DC Atorvastatin Calcium (Lipitor) 40 mg QHS PO Last administered on 09/07/21at 21:23; Start 08/27/21 at 21:00 Atropine Sulfate (ATROPINE 1mg SYRINGE) 1 mg STK-MED ONCE .ROUTE ; Start 08/23/21 at 12:32; Stop 08/27/21 at 14:26; Status DC Levetiracetam 100 ml @ 100 mls/hr Q12HR IV ; Start 08/28/21 at 21:00; Status Cancel Levetiracetam (Keppra Oral Soln) 500 mg BID PEG Last administered on 09/08/21at 09:56; Start 08/28/21 at 21:00 Heparin Sodium (Porcine) (Heparin Sodium) 10,000 unit STK-MED ONCE .ROUTE ; Start 08/30/21 at 12:56; Stop 08/30/21 at 12:56; Status DC Verapamil HCl (Verapamil) 5 mg STK-MED ONCE .ROUTE ; Start 08/30/21 at 12:56; Stop 08/30/21 at 12:56; Status DC Nitroglycerin (Nitroglycerin) 200 mcg STK-MED ONCE .ROUTE ; Start 08/30/21 at 12:56; Stop 08/30/21 at 12:56; Status DC Iodixanol (Visipaque 320) 100 ml STK-MED ONCE .ROUTE ; Start 08/30/21 at 12:57; Stop 08/30/21 at 12:57; Status DC Lidocaine HCl (Xylocaine-Mpf 1% 2ml Vial) 2 ml STK-MED ONCE .ROUTE ; Start 08/30/21 at 12:57; Stop 08/30/21 at 12:57; Status DC Heparin Sodium/ Sodium Chloride 1,000 ml @ As Directed STK-MED ONCE .ROUTE ; Start 08/30/21 at 12:57; Stop 08/30/21 at 12:57; Status DC Nitroglycerin (Nitroglycerin) 200 mcg 1X ONCE IART Last administered on 08/30/21at 13:34; Start 08/30/21 at 13:00; Stop 08/30/21 at 13:04; Status DC Verapamil HCl (Verapamil) 2.5 mg 1X ONCE IART Last administered on 08/30/21at 13:34; Start 08/30/21 at 13:00; Stop 08/30/21 at 13:04; Status DC Heparin Sodium (Porcine) (Heparin Sodium) 2,500 unit 1X ONCE IART Last administered on 08/30/21at 13:34; Start 08/30/21 at 13:00; Stop 08/30/21 at 13:04; Status DC Heparin Sodium/ Sodium Chloride (HEPARIN for ARTERIAL LINE FLUSH) 1,000 unit 1X ONCE IART Last administered on 08/30/21at 13:00; Start 08/30/21 at 13:00; Stop 08/30/21 at 13:04; Status DC Heparin Sodium/ Sodium Chloride (HEPARIN for ARTERIAL LINE FLUSH) 1,000 unit 1X ONCE IART Last administered on 08/30/21at 13:00; Start 08/30/21 at 13:00; Stop 08/30/21 at 13:04; Status DC Iodixanol (Visipaque 320) 100 ml 1X ONCE IART Last administered on 08/30/21at 13:55; Start 08/30/21 at 13:00; Stop 08/30/21 at 13:04; Status DC Lidocaine HCl (Xylocaine-Mpf 1% 2ml Vial) 2 ml 1X ONCE INJ Last administered on 08/30/21at 13:33; Start 08/30/21 at 13:00; Stop 08/30/21 at 13:04; Status DC Info (CONTRAST GIVEN -- Rx MONITORING) 1 each PRN DAILY PRN MC SEE COMMENTS; Start 08/30/21 at 13:15; Stop 09/01/21 at 13:14; Status DC Alteplase, Recombinant (Cathflo For Central Catheter Clearance) 1 mg 1X ONCE INT CAT Last administered on 08/31/21at 12:11; Start 08/31/21 at 10:45; Stop 08/31/21 at 10:46; Status DC Methylprednisolone Sodium Succinate (SOLU-Medrol 125MG VIAL) 60 mg Q8HRS IV Last administered on 09/04/21at 06:02; Start 09/01/21 at 14:00; Stop 09/04/21 at 08:19; Status DC Methylprednisolone Sodium Succinate (SOLU-Medrol 40MG VIAL) 40 mg Q8HRS IV Last administered on 09/06/21at 05:37; Start 09/04/21 at 14:00; Stop 09/06/21 at 10:03; Status DC Fentanyl Citrate (Fentanyl 2ml Vial) 25 mcg PRN Q5MIN PRN IVP MILD PAIN 1-3; Start 09/05/21 at 06:00; Stop 09/06/21 at 05:59; Status DC Fentanyl Citrate (Fentanyl 2ml Vial) 50 mcg PRN Q5MIN PRN IVP MODERATE PAIN 4- 6; Start 09/05/21 at 06:00; Stop 09/06/21 at 05:59; Status DC Morphine Sulfate (Morphine Sulfate) 1 mg PRN Q10MIN PRN IVP SEVERE PAIN 7-10; Start 09/05/21 at 06:00; Stop 09/06/21 at 05:59; Status DC Ringer's Solution 1,000 ml @ 30 mls/hr Q24H IV ; Start 09/05/21 at 06:00; Stop 09/05/21 at 17:59; Status DC Hydromorphone HCl (Dilaudid) 0.5 mg PRN Q10MIN PRN IVP SEVERE PAIN 7-10, 2nd CHOICE; Start 09/05/21 at 06:00; Stop 09/06/21 at 05:59; Status DC Prochlorperazine Edisylate (Compazine) 5 mg PACU PRN PRN IVP NAUSEA, MRX1; Start 09/05/21 at 06:00; Stop 09/06/21 at 05:59; Status DC Metoprolol Tartrate (Lopressor) 25 mg BID PO Last administered on 09/04/21at 20:59; Start 09/04/21 at 21:00; Stop 09/05/21 at 17:31; Status DC Norepinephrine Bitartrate 8 mg/ Dextrose 258 ml @ 0 mls/hr CONT IV ; Start 09/05/21 at 09:30; Status UNV Sodium Chloride 500 ml @ 500 mls/hr 1X ONCE IV Last administered on 09/05/21at 08:00; Start 09/05/21 at 08:00; Stop 09/05/21 at 12:11; Status DC Heparin Sodium/ Dextrose 250 ml @ 11.484 mls/ hr CONT PRN IV PER PROTOCOL Last administered on 09/05/21at 15:53; Start 09/05/21 at 14:45 Heparin Sodium (Porcine) (Heparin Sodium) 2,400 unit PRN Q6HRS PRN IV FOR UFH LEVEL LESS THAN 0.2; Start 09/05/21 at 14:45 Linezolid/Dextrose 300 ml @ 300 mls/hr Q12HR IV Last administered on 09/08/21at 09:25; Start 09/05/21 at 21:00 Vancomycin HCl (Vancomycin Oral Solution) 125 mg [id number] PO ; Start 09/05/21 at 17:30; Stop 09/06/21 at 14:59; Status DC Epinephrine HCl (EPINEPHrine SYRINGE) 1 mg STK-MED ONCE .ROUTE ; Start 09/06/21 at 07:11; Stop 09/06/21 at 07:12; Status DC Digoxin (Lanoxin) 250 mcg 1X ONCE IV Last administered on 09/06/21at 08:39; Start 09/06/21 at 08:30; Stop 09/06/21 at 08:31; Status DC Methylprednisolone Sodium Succinate (SOLU-Medrol 40MG VIAL) 40 mg Q12H IV Last administered on 09/08/21at 08:37; Start 09/06/21 at 21:00 Epinephrine HCl (EPINEPHrine SYRINGE) 1 mg STK-MED ONCE .ROUTE ; Start 09/05/21 at 17:00; Stop 09/07/21 at 08:29; Status DC Vitals/I & O Vital Sign - Last 24 Hours 09/07/21 09/07/21 09/07/21 09/07/21 13:00 13:01 14:00 15:00 Resp B/P (MAP) 180/99 188/91 161/88 Pulse Ox 100 O2 Delivery Ventilator Ventilator Ventilator Ventilator 09/07/21 09/07/21 09/07/21 09/07/21 16:00 16:30 17:00 18:11 Temp 98.5 98.5 Resp B/P (MAP) 158/95 171/91 181/99 Pulse Ox 99 99 100 O2 Delivery Ventilator Ventilator Ventilator Ventilator 09/07/21 09/07/21 09/07/21 09/07/21 18:20 19:00 20:00 20:00 Temp 98.4 98.4 Pulse 64 Resp B/P (MAP) 154/80 147/87 Pulse Ox 100 100 100 O2 Delivery Ventilator Ventilator Mechanical Ventilator Ventilator 09/07/21 09/07/21 09/07/21 09/08/21 20:00 22:00 23:00 00:01 Pulse 74 60 Resp B/P (MAP) 198/83 152/79 Pulse Ox 100 100 100 O2 Delivery Ventilator Ventilator Ventilator Mechanical Ventilator 09/08/21 09/08/21 09/08/21 09/08/21 00:01 01:00 01:10 02:00 Temp 98.4 98.4 Pulse 64 64 64 Resp B/P (MAP) 145/80 177/84 184/86 Pulse Ox 100 100 100 100 O2 Delivery Ventilator Ventilator Ventilator Ventilator 09/08/21 09/08/21 09/08/21 09/08/21 02:15 02:30 04:00 04:20 Temp 98.4 98.4 Pulse 70 74 67 Resp B/P (MAP) 181/95 183/101 185/98 Pulse Ox 100 100 100 100 O2 Delivery Ventilator Ventilator Ventilator Ventilator 09/08/21 09/08/21 09/08/21 09/08/21 05:00 06:00 07:16 08:00 Pulse 62 73 65 Resp B/P (MAP) 170/84 165/98 178/100 Pulse Ox 100 100 100 O2 Delivery Ventilator Ventilator Ventilator Mechanical Ventilator 09/08/21 09/08/21 09/08/21 09/08/21 08:00 08:02 08:30 08:35 Temp 98.5 98.5 Pulse 68 Resp B/P (MAP) 174/97 187/110 Pulse Ox 100 99 O2 Delivery Ventilator Ventilator 09/08/21 09/08/21 09/08/21 09/08/21 08:36 08:45 09:00 09:05 Pulse 65 65 Resp B/P (MAP) 178/100 164/87 117/70 Pulse Ox 100 O2 Delivery Ventilator 09/08/21 09/08/21 09/08/21 09/08/21 09:36 09:50 10:00 10:35 Pulse 68 Resp 22 B/P (MAP) 161/85 182/97 Pulse Ox 100 100 O2 Delivery Mechanical Ventilator Ventilator Ventilator 09/08/21 09/08/21 09/08/21 09/08/21 10:50 11:05 11:20 11:31 Pulse 70 Resp 22 B/P (MAP) 163/79 180/85 153/106 Pulse Ox 100 99 O2 Delivery Ventilator Ventilator Intake and Output 09/07/21 09/07/21 09/08/21 15:00 23:00 07:00 Intake Total 0 ml 858 ml 1101.1 ml Output Total 755 ml 750 ml 1450 ml Balance -755 ml 108 ml -348.9 ml Justifications for Admission Other Justification SUNNY MORALES MD Sep 08, 2021 12:43
[2021-09-08] MEDS: NOREPINEPHRINE VIAL 8 MG in IV DEXTROSE 5% 250 ML IV PRN (14:44)
--- NOTE | 2021-09-08 16:20 | RAD ---
Exam: CT head INDICATION: Altered mental status TECHNIQUE: Sequential axial images through the head were obtained without the administration of IV co ntrast. Exposure: One or more of the following in the visualized dose reduction techniques were utilized for this examination: 1. Automated exposure control 2. Adjustment of the MA and/or KV according to patient size 3. Use of iterative of reconstructive technique Comparisons: None FINDINGS: No focal parenchymal lesion or hemorrhage is identified. There is no midline shift or sulcal effaceme nt. Moderate patchy evidence in periventricular white matter. No acute vascular territory infarction is i dentified. Syed-white distinction is preserved. The ventricular system is within normal limits without compression hydrocephalus. The basal cisterns are well maintained. Mild mucosal thickening in the maxillary sinuses and sphenoid sinuses bilaterally. No acute fractures . IMPRESSION: Moderate small vessel ischemic change, technically age indeterminate without recent prior imaging. Electronically signed by: Xiomara Morris MD (09/08/2021 4:18 PM) JAVID
[2021-09-08] MEDS: ATORVASTATIN CALCIUM 40 MG TABLET. PO SCH (22:07)
[2021-09-09] VITALS (37 sets, daily range): BP systolic 78–173; BP diastolic 50–102
[2021-09-09] MEDS: PROPOFOL 100 ML IV PRN ×3 (00:04→18:13)
[2021-09-09] MEDS: MIDAZOLAM 100mg/100ml NS BAG 100 ML IV PRN (01:40)
[2021-09-09] MEDS: PIPERACILLIN/TAZOBACTAM 4.5 GM in IV DEXTROSE 5% 100ML 100 ML IV SCH ×3 (06:00→18:11)
[2021-09-09 06:09] LABS: HEMATOCRIT 26.2 % (39.0-53.0); HEMOGLOBIN 8.6 g/dL (13.0-17.5); RED BLOOD COUNT 2.92 x10^6/uL (4.30-5.70); RED CELL DISTRIBUTION WIDTH 15.6 % (11.5-14.5); WHITE BLOOD COUNT 20.5 x10^3/uL (4.0-11.0)
[2021-09-09 06:28] LABS: ALBUMIN 2.5 g/dL (3.4-5.0); ALBUMIN/GLOBULIN RATIO 0.7 (1.0-1.7); CALCIUM 7.9 mg/dL (8.5-10.1); CREATININE 0.6 mg/dL (0.7-1.3); GFR 136.1; POTASSIUM 4.4 mmol/L (3.5-5.1); TOTAL BILIRUBIN 0.6 mg/dL (0.2-1.0); TOTAL PROTEIN 5.9 g/dL (6.4-8.2)
--- NOTE | 2021-09-09 06:31 | PDOC ---
PULMONARY PROGRESS NOTES DATE: 09/09/21 TIME: 06:29 Subjective on vent peep 5 fio2 40% sedated on propofol versed fentanyl Vitals Vital Signs Date Time Temp Pulse Resp B/P (MAP) Pulse Ox O2 Delivery O2 Flow Rate FiO2 09/09/21 04:55 100 Ventilator 09/09/21 04:15 149/79 09/09/21 04:00 98.8 83 22 98.8 Comments ros unable to obtain sedated on vent HEENT: Other (nc at perrl nose clear orally intubated neck no lad no thyromegaly) Lungs: Crackles Cardiovascular: S1, S2 Abdomen: Soft, Non-tender Extremities: No Edema Skin: Warm Labs Laboratory Tests Test 09/08/21 05:50 09/09/21 05:54 White Blood Count 27.5 x10^3/uL (4.0-11.0) 20.5 x10^3/uL (4.0-11.0) Red Blood Count 2.94 x10^6/uL (4.30-5.70) 2.92 x10^6/uL (4.30-5.70) Hemoglobin 8.5 g/dL (13.0-17.5) 8.6 g/dL (13.0-17.5) Hematocrit 26.1 % (39.0-53.0) 26.2 % (39.0-53.0) Mean Corpuscular Volume 89 fL (79-100) 90 fL (79-100) Mean Corpuscular Hemoglobin 29 pg (25-35) 30 pg (25-35) Mean Corpuscular Hemoglobin Concent 33 g/dL (31-37) 33 g/dL (31-37) Red Cell Distribution Width 15.6 % (11.5-14.5) 15.6 % (11.5-14.5) Platelet Count 287 x10^3/uL (140-400) 236 x10^3/uL (140-400) Sodium Level 140 mmol/L (136-145) Potassium Level 4.7 mmol/L (3.5-5.1) Chloride Level 101 mmol/L (98-107) Carbon Dioxide Level 33 mmol/L (21-32) Anion Gap 6 (6-14) Blood Urea Nitrogen 21 mg/dL (8-26) Creatinine 0.7 mg/dL (0.7-1.3) Estimated GFR (Cockcroft-Gault) 113.9 BUN/Creatinine Ratio 30 (6-20) Glucose Level 168 mg/dL (70-99) Calcium Level 7.7 mg/dL (8.5-10.1) Total Bilirubin 0.7 mg/dL (0.2-1.0) Aspartate Amino Transf (AST/SGOT) 36 U/L (15-37) Alanine Aminotransferase (ALT/SGPT) 48 U/L (16-63) Alkaline Phosphatase 87 U/L (46-116) Total Protein 5.6 g/dL (6.4-8.2) Albumin 2.4 g/dL (3.4-5.0) Albumin/Globulin Ratio 0.8 (1.0-1.7) Triglycerides Level 166 mg/dL (0-150) Laboratory Tests Test 09/09/21 05:54 White Blood Count 20.5 x10^3/uL (4.0-11.0) Red Blood Count 2.92 x10^6/uL (4.30-5.70) Hemoglobin 8.6 g/dL (13.0-17.5) Hematocrit 26.2 % (39.0-53.0) Mean Corpuscular Volume 90 fL (79-100) Mean Corpuscular Hemoglobin 30 pg (25-35) Mean Corpuscular Hemoglobin Concent 33 g/dL (31-37) Red Cell Distribution Width 15.6 % (11.5-14.5) Platelet Count 236 x10^3/uL (140-400) Comments cxr reviewed 1. The nasogastric tube has been advanced and is now intragastric. 2. The endotracheal tube and right PICC are in appropriate position. 3. No significant change in diffuse bilateral interstitial opacities. Trace right pleural effusion. Impression . 1. Acute hypoxic respiratory failure secondary to COVID-19 pneumonia, acute respiratory distress syndrome and possible underlying fibrosis and emphysema., Extubated 08/20, reintubated 08/23 status post CODE BLUE/semi-CODE BLUE on 09/[address] chest 3. Hypernatremia 4. Suspected underlying severe chronic obstructive pulmonary disease. 5. COVID-19 viral pneumonia.--- Covid recovered 6. Abnormal chest x-ray with bilateral diffuse infiltrates related to COVID-19 viral pneumonia.--- Covid recovered 7. Patient reintubated 08/23, status post CODE BLUE 8. Abnormal x-ray from 08/15, possible ARDS, possible pulmonary edema, possible aspiration 9. ST elevation OR status post intra-aortic balloon pump--08/23/2021 10. Emergent cardiac catheterization revealing 90% stenotic lesion 11. Echocardiogram revealing ejection fraction of 35 to 40% pulmonary artery pressure of 34 inferior septal wall hypokinesis 12. Bacteremia Staph epidermidis 13. Necrotic toe left second, suspect related COVID Cardiac catheterization 08/30 Due to large vessel size a decision was made to defer stenting at this time for continued medical therapy. After the patient is fully extubated and depending on symptoms could consider PCI. Conclusion 1. Recanalized right coronary artery with brisk blood flow. 2. Residual proximal 70% RCA stenosis with significant ectasia of the RCA measuring up to 6.25 mm. 3. Normal left ventricular filling pressures. Recommendations 1. Continue aspirin, Plavix and heparin drip. 2. Continue plans for extubation. 3. After patient is extubated and stabilized depending on symptoms we will consider high risk PCI with specialized MegaTron stent given the large vessel size. Plan . 09/09 cont vent support setting reviewed, ct of head no acute abnl elevate hob Repeat LHC showed recanalized right coronary artery with brisk blood flow. Residual proximal 70% RCA stenosis with significant ectasia of the RCA measuring up to 6.25 mm. levo to keep map 60 abx per id trach next week overall prognosis poor discussed w rn 09/08 cont vent support setting reviewed, re consult neuro [facility] Repeat LHC showed recanalized right coronary artery with brisk blood flow. Resid ual proximal 70% RCA stenosis with significant ectasia of the RCA measuring up to 6.25 mm. Patient currently off pressors no dose change per cardiology abx per id trach next week discussed w rn Updated 09/07 Hemodynamically stable ET tube was repositioned today, advanced to 3 cm Continue antibiotics per ID If fever remains stable we will proceed with tracheotomy, need to hold Plavix C. difficile negative So far cultures negative Updated 09/06 Continue current support Follow cardiology input Antibiotics per ID, leukocytosis increased today If remains clinically stable we will proceed with trach next week Repeat cultures negative Currently on Solu-Medrol every 12, 40 mg Chest x-ray reviewed, improving CCT 30 minutes, discussed with at the bedside STACIE BOO MD Sep 09, 2021 06:31
--- NOTE | 2021-09-09 06:47 | NUR ---
I agree with student assessments-Hammad WATKINS Addendum: 09/09/21 at 0648 by HAMMAD DAVEY RN RN Amended: Links added.
[2021-09-09] MEDS: NOREPINEPHRINE VIAL 8 MG in IV DEXTROSE 5% 250 ML IV PRN (07:02)
[2021-09-09] MEDS: CLOPIDOGREL BISULFATE 75 MG TABLET PO SCH (08:00)
[2021-09-09] MEDS: FAMOTIDINE 20 MG/2 ML VIAL IVP SCH ×2 (08:28→20:50)
[2021-09-09] MEDS: methylPREDNISolone SOD SUCC PF 40 MG/ML VIAL. IV SCH ×2 (08:28→20:50)
[2021-09-09] MEDS: levETIRAcetam 500 MG/5 ML ORAL SOLUTION. PEG SCH ×2 (08:29→20:50)
[2021-09-09] MEDS: ASPIRIN CHEWABLE 81 MG TABLET. PO SCH (08:29)
[2021-09-09] MEDS: AMIODARONE HCL 200 MG TABLET. PO SCH (08:29)
--- NOTE | 2021-09-09 08:54 | PN ---
DATE: 09/09/2021 SUBJECTIVE: The patient continued to be heavily sedated on Levophed. Nursing staff did not voice any concerns that he has an uneventful night. He is off the heparin and Plavix. He is now only on aspirin. PHYSICAL EXAMINATION: GENERAL: When I examined him, he was pale, but no jaundice, cyanosis, no lymphadenopathy, no thyromegaly, no jugular venous distention. No limb edema. VITAL SIGNS: His heart rate was 88, blood pressure 167/87, his temperature was 98.8, respiratory rate was 22 and oxygen saturation was 100% on FiO2 of 40%. HEAD, EYES, EARS, NOSE, AND THROAT: Normocephalic, atraumatic. He has orotracheal and orogastric tube. NECK: Supple. HEART: Normal first and second heart sounds. No gallop, rub or murmur. CHEST: Showed central trachea, equal bilateral expansion, air entry, vesicular breath sounds. No crepitation or rhonchi. ABDOMEN: Distended, soft, nontender. NEUROLOGIC: He is heavily sedated. His intake was 1950, output was 2950. LABORATORY DATA: White cell count is coming down nicely at 20,500, hemoglobin 8.6, hematocrit 26, MCV 90 and platelet count 236,000. His chemistry showed a serum sodium 137, potassium 4.4, chloride 100, bicarbonate 31, anion gap of 6, BUN 21, creatinine 0.6. Estimated GFR was 136 mL per minute. His glucose is 150, calcium was 7.9. Total bilirubin, AST, ALT, alkaline phosphatase were normal. Total protein 5.9, albumin was 2.5. ASSESSMENT: 1. The patient is status post cardiac arrest, likely due to hypoxia. He had COVID-19 pneumonia as well as acute myocardial infarction. Apparently, the patient went into ventricular tachycardia, was shocked and also went into ventricular fibrillation, treated with CPR and epinephrine with return of spontaneous circulation. He also developed an episode of bradycardia with bigeminy as well as atrial fibrillation with rapid ventricular response that has responded to IV digoxin. He is now in sinus rhythm. 2. Acute on chronic hypoxic respiratory failure. 3. Acute respiratory distress syndrome. 4. Acute exacerbation of chronic obstructive pulmonary disease. 5. COVID-19 pneumonia. 6. Atrial fibrillation with rapid ventricular response that has rate controlled. He is off heparin. His Plavix was also on hold. He is only on aspirin for the time being in anticipation for tracheostomy tube placement and gastrostomy tube placement. 7. Cardiogenic as well as septic shock. 8. The patient underwent a cardiac catheterization for the second time that has revealed that the patient has recanalized his right coronary artery for which he was started on aspirin and Plavix with a plan to do a high risk PCI and stent deployment when the patient is extubated and stabilized as the right coronary artery size is large. PLAN: To continue with mechanical ventilation, sedation. Continue with Keppra for seizure disorder. Continue heparin and Plavix was discontinued in anticipation for tracheostomy if he remain stable. Meanwhile, continue with DVT prophylaxis and GI prophylaxis. ALEJANDRO DR: Vannessa TID: [id number]
[2021-09-09] MEDS: fentaNYL HIGH DOSE PCA 55 ML IV PRN (11:22)
--- NOTE | 2021-09-09 13:34 | PDOC ---
Infectious Disease Note Subjective: Subjective Patient Intubated Vital Signs: Vital Signs Vital Signs Date Time Temp Pulse Resp B/P (MAP) Pulse Ox O2 Delivery O2 Flow Rate FiO2 09/09/21 12:15 145/81 09/09/21 12:00 98.5 89 22 100 Ventilator 98.5 Physical Exam: PHYSICAL EXAM GENERAL: Intubated HEENT: No conjunctival petechia. ETT present, OGT present LUNGS: Coarse breath sounds in the bases, otherwise clear. HEART: S1, S2, irregular. I could not appreciate any murmurs. ABDOMEN: Soft, nontender, nondistended. Bowel sounds present. GENITOURINARY: Berumen in place. EXTREMITIES: Present no cyanosis. Right groin catheter removed, Right upper extremity PICC line placed on 08/23/2021.Lt 2nd digit black DERMATOLOGIC: Warm, dry, no generalized rash. NEUROLOGIC: Unable to assess. Medications: Inpatient Meds: Medications reviewed. Labs: Lab Laboratory Tests Test 09/09/21 05:54 White Blood Count 20.5 x10^3/uL (4.0-11.0) Red Blood Count 2.92 x10^6/uL (4.30-5.70) Hemoglobin 8.6 g/dL (13.0-17.5) Hematocrit 26.2 % (39.0-53.0) Mean Corpuscular Volume 90 fL (79-100) Mean Corpuscular Hemoglobin 30 pg (25-35) Mean Corpuscular Hemoglobin Concent 33 g/dL (31-37) Red Cell Distribution Width 15.6 % (11.5-14.5) Platelet Count 236 x10^3/uL (140-400) Sodium Level 137 mmol/L (136-145) Potassium Level 4.4 mmol/L (3.5-5.1) Chloride Level 100 mmol/L (98-107) Carbon Dioxide Level 31 mmol/L (21-32) Anion Gap 6 (6-14) Blood Urea Nitrogen 21 mg/dL (8-26) Creatinine 0.6 mg/dL (0.7-1.3) Estimated GFR (Cockcroft-Gault) 136.1 BUN/Creatinine Ratio 35 (6-20) Glucose Level 150 mg/dL (70-99) Calcium Level 7.9 mg/dL (8.5-10.1) Total Bilirubin 0.6 mg/dL (0.2-1.0) Aspartate Amino Transf (AST/SGOT) 51 U/L (15-37) Alanine Aminotransferase (ALT/SGPT) 49 U/L (16-63) Alkaline Phosphatase 106 U/L (46-116) Total Protein 5.9 g/dL (6.4-8.2) Albumin 2.5 g/dL (3.4-5.0) Albumin/Globulin Ratio 0.7 (1.0-1.7) Objective: Assessment: Fever multifactorial s/p code ,possible aspiration resolved MRSE Bacterermia 08/22/2021.Central line was pulled out Acute hypoxic respiratory failure. COVID-19 pneumonia. Chronic obstructive pulmonary disease with possible underlying pulmonary fibrosis, aspiration pneumonia. Status post code atrial fibrillation with rapid ventricular response, ventricular fibrillation, status post defibrillation, epinephrine, bicarbonate drip, status post cardiac catheterization. IABP placement. Severe protein-calorie malnutrition. Abnormal liver function tests, likely shock liver. Anemia. Encephalopathy likely anoxic .Electrolyte abn Leucocytosis on steroids, also could be worsening from Bleeds epistaxis Black digit of Lt 2nd toe could be COVID C. difficile negative on 09/05/2021 Plan: Plan of Care WBC decreasing slowly Cont Zosyn.zyvox NGT clogged, removed,OGT placed Trach planned for tomorrow C. difficile is negative Follow bc neg so far UA negative PICC brake reliner Critically Ill prognosis poor D/W significant other at bedside Discussed with ROLAND. SOFIA LOWERY MD Sep 09, 2021 13:34
--- NOTE | 2021-09-09 13:57 | PDOC ---
PROGRESS NOTES Date of Service DATE: 09/09/21 TIME: 13:54 Subjective Subjective Patient seen and evaluated. Objective Objective Vital Signs Date Time Temp Pulse Resp B/P (MAP) Pulse Ox O2 Delivery O2 Flow Rate FiO2 09/09/21 13:41 100 Ventilator 09/09/21 12:15 145/81 09/09/21 12:00 98.5 89 22 98.5 09/07/21 04:58 4.0 Intake and Output 09/09/21 07:00 Intake Total 2946 ml Output Total 4590 ml Balance -1644 ml IV Total 1900 ml Tube Feeding 796 ml Other 250 ml Output Urine Total 4590 ml Gastric Drainage Total 0 ml Assessment Assessment S/P cardiac arrest; multifactorial. Noted with VT shock x1. approximately <3 min to ROSC. Rhythm now stable. Continuing present treatment. Acute on chronic respiratory failure with COVID PNA, ARDS. unable to be weaned from vent. CAD, inferior STEMI with embolic disease. Initial LHC with thrombotic distal right posterior descending artery and right posterior lateral artery occlusion. There was moderate 50% proximal and 90% mid stenosis appeared to have significant thrombotic burden with ectasia and dilation of the coronary artery. Repeat LHC showed recanalized RCA with brisk blood flow. Residual proximal 70% RCA stenosis with significant ectasia of the RCA measuring up to 6.25 mm. Cardiogenic shock; IABP removed. CXR with improvement Acute on chronic systolic CHF, ICM: EF at 35-40%. AFIB RVR. S/p IV Dig. Convert garcia to SR and HR presently near 76. Bradyarrhythmia; episode of bradycardia (lowest 31) with brief loss of pulse 09/05 requiring brief CPR. Echo not significant changes. Trop without significant elevation, trending downward. Hyperlipidemia; statin Black distal phalanx to left 2nd toe: possibly r/t to covid-19. no significnat PAD per duplex Leukocytosis, ? sepsis. Hypotensive requiring pressor support. Followed by ID. Comment Review of Relevant I have reviewed the following items shey (where applicable) has been applied. Labs Laboratory Tests Test 09/08/21 05:50 09/09/21 05:54 White Blood Count 27.5 x10^3/uL (4.0-11.0) 20.5 x10^3/uL (4.0-11.0) Red Blood Count 2.94 x10^6/uL (4.30-5.70) 2.92 x10^6/uL (4.30-5.70) Hemoglobin 8.5 g/dL (13.0-17.5) 8.6 g/dL (13.0-17.5) Hematocrit 26.1 % (39.0-53.0) 26.2 % (39.0-53.0) Mean Corpuscular Volume 89 fL (79-100) 90 fL (79-100) Mean Corpuscular Hemoglobin 29 pg (25-35) 30 pg (25-35) Mean Corpuscular Hemoglobin Concent 33 g/dL (31-37) 33 g/dL (31-37) Red Cell Distribution Width 15.6 % (11.5-14.5) 15.6 % (11.5-14.5) Platelet Count 287 x10^3/uL (140-400) 236 x10^3/uL (140-400) Sodium Level 140 mmol/L (136-145) 137 mmol/L (136-145) Potassium Level 4.7 mmol/L (3.5-5.1) 4.4 mmol/L (3.5-5.1) Chloride Level 101 mmol/L (98-107) 100 mmol/L (98-107) Carbon Dioxide Level 33 mmol/L (21-32) 31 mmol/L (21-32) Anion Gap 6 (6-14) 6 (6-14) Blood Urea Nitrogen 21 mg/dL (8-26) 21 mg/dL (8-26) Creatinine 0.7 mg/dL (0.7-1.3) 0.6 mg/dL (0.7-1.3) Estimated GFR (Cockcroft-Gault) 113.9 136.1 BUN/Creatinine Ratio 30 (6-20) 35 (6-20) Glucose Level 168 mg/dL (70-99) 150 mg/dL (70-99) Calcium Level 7.7 mg/dL (8.5-10.1) 7.9 mg/dL (8.5-10.1) Total Bilirubin 0.7 mg/dL (0.2-1.0) 0.6 mg/dL (0.2-1.0) Aspartate Amino Transf (AST/SGOT) 36 U/L (15-37) 51 U/L (15-37) Alanine Aminotransferase (ALT/SGPT) 48 U/L (16-63) 49 U/L (16-63) Alkaline Phosphatase 87 U/L (46-116) 106 U/L (46-116) Total Protein 5.6 g/dL (6.4-8.2) 5.9 g/dL (6.4-8.2) Albumin 2.4 g/dL (3.4-5.0) 2.5 g/dL (3.4-5.0) Albumin/Globulin Ratio 0.8 (1.0-1.7) 0.7 (1.0-1.7) Triglycerides Level 166 mg/dL (0-150) Laboratory Tests Test 09/09/21 05:54 White Blood Count 20.5 x10^3/uL (4.0-11.0) Red Blood Count 2.92 x10^6/uL (4.30-5.70) Hemoglobin 8.6 g/dL (13.0-17.5) Hematocrit 26.2 % (39.0-53.0) Mean Corpuscular Volume 90 fL (79-100) Mean Corpuscular Hemoglobin 30 pg (25-35) Mean Corpuscular Hemoglobin Concent 33 g/dL (31-37) Red Cell Distribution Width 15.6 % (11.5-14.5) Platelet Count 236 x10^3/uL (140-400) Sodium Level 137 mmol/L (136-145) Potassium Level 4.4 mmol/L (3.5-5.1) Chloride Level 100 mmol/L (98-107) Carbon Dioxide Level 31 mmol/L (21-32) Anion Gap 6 (6-14) Blood Urea Nitrogen 21 mg/dL (8-26) Creatinine 0.6 mg/dL (0.7-1.3) Estimated GFR (Cockcroft-Gault) 136.1 BUN/Creatinine Ratio 35 (6-20) Glucose Level 150 mg/dL (70-99) Calcium Level 7.9 mg/dL (8.5-10.1) Total Bilirubin 0.6 mg/dL (0.2-1.0) Aspartate Amino Transf (AST/SGOT) 51 U/L (15-37) Alanine Aminotransferase (ALT/SGPT) 49 U/L (16-63) Alkaline Phosphatase 106 U/L (46-116) Total Protein 5.9 g/dL (6.4-8.2) Albumin 2.5 g/dL (3.4-5.0) Albumin/Globulin Ratio 0.7 (1.0-1.7) Microbiology 09/05/21 Urine Culture - Final, Complete 09/05/21 Blood Culture - Preliminary, Resulted NO GROWTH AFTER 3 DAYS 08/23/21 Respiratory Culture Gram Stain - Final, Complete 08/23/21 Respiratory Culture - Final, Complete Medications Current Medications Dexamethasone Sodium Phosphate (Decadron) 6 mg DAILY IVP Last administered on 08/10/21at 08:29; Start 08/01/21 at 09:00; Stop 08/10/21 at 09:01; Status DC Heparin Sodium (Porcine) (Heparin Sodium) 5,000 unit Q8HRS SQ Last administered on 08/20/21at 05:41; Start 07/31/21 at 14:00; Stop 08/20/21 at 08:37; Status DC Famotidine (Pepcid Vial) 20 mg BID IVP Last administered on 09/09/21at 08:28; Start 07/31/21 at 14:00 Fentanyl Citrate 30 ml @ 2.5 mls/hr CONT PRN IV SEE PROTOCOL Last administered on 07/31/21at 12:49; Start 07/31/21 at 12:15; Stop 07/31/21 at 16:19; Status DC Midazolam HCl 100 ml @ 1 mls/hr CONT PRN IV SEE PROTOCOL Last administered on 09/09/21at 01:40; Start 07/31/21 at 12:15 Propofol 100 ml @ 3.45 mls/hr CONT PRN IV PER PROTOCOL Last administered on 09/09/21at 07:02; Start 07/31/21 at 12:15 Vecuronium [place] (Norcuron Bolus) 6 mg PRN 1X PRN IV VENT INDUCTION; Start 07/31/21 at 12:15; Stop 08/01/21 at 12:14; Status DC Glycerin/ Hypromellose/ Polyethylene (Artificial Tears) 1 drop PRN Q1HR PRN OU DRY EYE; Start 07/31/21 at 12:15 Dexmedetomidine HCl 400 mcg/ Sodium Chloride 100 ml @ 0 mls/hr CONT PRN IV PER PROTOCOL Last administered on 08/17/21at 12:55; Start 07/31/21 at 12:15 Midazolam HCl (Versed) 5 mg PRN 1X PRN IVP VENT INDUCTION; Start 07/31/21 at 12:15; Stop 08/01/21 at 12:14; Status DC Sodium Chloride 500 ml @ 500 mls/hr 1X PRN PRN IV SEE COMMENTS; Start 07/31/21 at 12:15 Atropine Sulfate (ATROPINE 0.5mg SYRINGE) 0.5 mg PRN Q5MIN PRN IV SEE COMMENTS; Start 07/31/21 at 12:15 Famotidine (Pepcid Vial) 20 mg BID IVP ; Start 07/31/21 at 21:00; Status UNV Piperacillin Sod/ Tazobactam Sod (Zosyn Per Pharmacy) 1 each PRN DAILY PRN MC SEE COMMENTS; Start 07/31/21 at 15:15; Stop 08/08/21 at 12:29; Status DC Piperacillin Sod/ Tazobactam Sod 3.375 gm/Sodium Chloride 50 ml @ 100 mls/hr Q6HRS IV Last administered on 08/07/21at 11:20; Start 07/31/21 at 18:00; Stop 08/07/21 at 17:59; Status DC Fentanyl Citrate 55 ml @ 1 mls/hr CONT PRN IV SEE PROTOCOL Last administered on 09/09/21at 11:22; Start 07/31/21 at 15:45 Insulin Human Lispro (HumaLOG) 0-7 UNITS Q6HRS SQ ; Start 08/02/21 at 06:00; Stop 08/07/21 at 08:09; Status DC Dextrose (Dextrose 50%-Water Syringe) 12.5 gm PRN Q15MIN PRN IV SEE COMMENTS; Start 08/01/21 at 23:00 Vecuronium [place] (Norcuron Bolus) 6 mg PRN Q6HRS PRN IV VENTILATOR COMPLIANCE Last administered on 08/28/21at 02:57; Start 08/06/21 at 13:45 Vecuronium [place] (Norcuron Bolus) 10 mg STK-MED ONCE IV ; Start 08/06/21 at 13:34; Stop 08/07/21 at 13:38; Status DC Sterile Water (WATER for RESP) 1,000 ml CONT PRN INH VIA VAPOTHERM DEVICE; Start 08/12/21 at 09:45; Status Cancel Dexamethasone Sodium Phosphate (Decadron) 6 mg DAILY IVP ; Start 08/17/21 at 09:00; Stop 08/16/21 at 13:31; Status DC Dexamethasone Sodium Phosphate (Decadron) 10 mg 1X ONCE IV ; Start 08/16/21 at 12:30; Stop 08/16/21 at 13:31; Status DC Acetaminophen (Tylenol) 650 mg PRN Q6HRS PRN PEG MILD PAIN / TEMP > 100.3'F Last administered on 08/20/21at 03:50; Start 08/17/21 at 00:15 Heparin Sodium (Porcine) (Heparin Sodium) 5,000 unit Q8HRS SQ Last administered on 08/23/21at 05:39; Start 08/21/21 at 14:00; Stop 08/23/21 at 18:33; Status DC Fentanyl Citrate (Fentanyl 2ml Vial) 25 mcg PRN Q5MIN PRN IVP MILD PAIN 1-3; Start 08/21/21 at 06:00; Stop 08/22/21 at 05:59; Status DC Fentanyl Citrate (Fentanyl 2ml Vial) 50 mcg PRN Q5MIN PRN IVP MODERATE PAIN 4- 6; Start 08/21/21 at 06:00; Stop 08/22/21 at 05:59; Status DC Morphine Sulfate (Morphine Sulfate) 1 mg PRN Q10MIN PRN IVP SEVERE PAIN 7-10; Start 08/21/21 at 06:00; Stop 08/22/21 at 05:59; Status DC Ringer's Solution 1,000 ml @ 30 mls/hr Q24H IV ; Start 08/21/21 at 06:00; Stop 08/21/21 at 17:59; Status DC Hydromorphone HCl (Dilaudid) 0.5 mg PRN Q10MIN PRN IVP SEVERE PAIN 7-10, 2nd CHOICE; Start 08/21/21 at 06:00; Stop 08/22/21 at 05:59; Status DC Prochlorperazine Edisylate (Compazine) 5 mg PACU PRN PRN IVP NAUSEA, MRX1; Start 08/21/21 at 06:00; Stop 08/22/21 at 05:59; Status DC Haloperidol Lactate (Haldol Inj) 5 mg PRN Q8HRS PRN IVP AGITATION; Start 08/22/21 at 10:45; Stop 08/22/21 at 10:45; Status DC Haloperidol Lactate (Haldol Inj) 5 mg Q8HRS IVP Last administered on 08/23/21at 05:38; Start 08/22/21 at 11:00; Stop 08/24/21 at 13:52; Status DC Acetaminophen (Tylenol Supp) 650 mg Q4H ONCE UT Last administered on 08/22/21at 11:45; Start 08/22/21 at 11:30; Stop 08/22/21 at 11:31; Status DC Vancomycin HCl (Vanco Per Pharmacy) 1 each PRN DAILY PRN MC SEE COMMENTS Last administered on 08/23/21at 12:21; Start 08/22/21 at 11:30; Stop 08/24/21 at 09:14; Status DC Piperacillin Sod/ Tazobactam Sod (Zosyn Per Pharmacy) 1 each PRN DAILY PRN MC SEE COMMENTS; Start 08/22/21 at 11:30 Piperacillin Sod/ Tazobactam Sod 4.5 gm/Dextrose 100 ml @ 200 mls/hr Q6HRS IV Last administered on 09/09/21at 11:43; Start 08/22/21 at 12:00 Vancomycin HCl 2 gm/Sodium Chloride 500 ml @ 250 mls/hr 1X ONCE IV Last administered on 08/22/21at 12:34; Start 08/22/21 at 13:00; Stop 08/22/21 at 14:59; Status DC Acetaminophen (Tylenol Supp) 650 mg PRN Q4HRS PRN UT MILD PAIN / TEMP > 100.3'F Last administered on 08/22/21at 23:32; Start 08/22/21 at 11:45 Dextrose/Lactated Ringer's 1,000 ml @ 80 mls/hr [id number] IV Last administered on 08/31/21at 21:16; Start 08/22/21 at 12:45; Stop 09/01/21 at 12:01; Status DC Vancomycin HCl 1 gm/Sodium Chloride 250 ml @ 250 mls/hr Q8H IV Last administered on 08/24/21at 04:00; Start 08/22/21 at 20:00; Stop 08/24/21 at 09:14; Status DC Vancomycin HCl (Vancomycin Trough Level) 1 each 1X ONCE MC ; Start 08/23/21 at 11:30; Stop 08/24/21 at 09:14; Status DC Etomidate (Amidate) 20 mg STK-MED ONCE IV ; Start 08/23/21 at 11:25; Stop 08/23/21 at 11:25; Status DC Succinylcholine Chloride (Anectine) 200 mg STK-MED ONCE .ROUTE ; Start 08/23/21 at 11:25; Stop 08/23/21 at 11:26; Status DC Etomidate (Amidate) 20 mg 1X ONCE IV Last administered on 08/23/21at 12:21; Start 08/23/21 at 12:15; Stop 08/23/21 at 12:16; Status DC Succinylcholine Chloride (Anectine) 100 mg 1X ONCE IV Last administered on 08/23/21at 12:21; Start 08/23/21 at 12:15; Stop 08/23/21 at 12:16; Status DC Methylprednisolone Sodium Succinate (SOLU-Medrol 125MG VIAL) 125 mg Q8HRS IV Last administered on 09/01/21at 06:08; Start 08/23/21 at 14:00; Stop 09/01/21 at 12:01; Status DC Furosemide (Lasix) 40 mg 1X ONCE IVP Last administered on 08/23/21at 13:19; Start 08/23/21 at 12:45; Stop 08/23/21 at 12:56; Status DC Furosemide (Lasix) 40 mg DAILY IVP Last administered on 08/24/21at 07:24; Start 08/24/21 at 09:00; Stop 08/24/21 at 11:24; Status DC Digoxin (Lanoxin) 500 mcg 1X ONCE IV Last administered on 08/23/21at 15:16; Start 08/23/21 at 15:30; Stop 08/23/21 at 15:31; Status DC Amiodarone HCl 150 mg/Dextrose 103 ml @ 600 mls/hr 1X ONCE IV ; Start 08/23/21 at 16:00; Stop 08/23/21 at 16:10; Status DC Amiodarone HCl 450 mg/Dextrose 259 ml @ 33 mls/hr CONT PRN IV SEE I/O RECORD Last administered on 08/24/21at 01:22; Start 08/23/21 at 16:00; Stop 08/24/21 at 15:59; Status DC Iodixanol (Visipaque 320) 100 ml STK-MED ONCE .ROUTE ; Start 08/23/21 at 16:00; Stop 08/23/21 at 16:00; Status DC Lidocaine HCl (Lidocaine 1% 20ml Vial) 20 ml STK-MED ONCE .ROUTE ; Start 08/23/21 at 16:00; Stop 08/23/21 at 16:00; Status DC Heparin Sodium/ Sodium Chloride 1,500 ml @ As Directed STK-MED ONCE .ROUTE ; Start 08/23/21 at 16:00; Stop 08/23/21 at 16:00; Status DC Amiodarone HCl (Cordarone) 150 mg STK-MED ONCE .ROUTE ; Start 08/23/21 at 16:01; Stop 08/23/21 at 16:01; Status DC Amiodarone HCl (Cordarone) 150 mg 1X ONCE IVP Last administered on 08/23/21at 16:23; Start 08/23/21 at 16:15; Stop 08/23/21 at 16:16; Status DC Aspirin (Aspirin Chewable) 324 mg 1X ONCE PO Last administered on 08/23/21at 16:07; Start 08/23/21 at 16:15; Stop 08/23/21 at 16:16; Status DC Aspirin (Aspirin Chewable) 81 mg STK-MED ONCE .ROUTE ; Start 08/23/21 at 16:06; Stop 08/23/21 at 16:06; Status DC Heparin Sodium (Porcine) (Heparin Sodium) 10,000 unit STK-MED ONCE .ROUTE ; Sta rt 08/23/21 at 16:23; Stop 08/23/21 at 16:24; Status DC Verapamil HCl (Verapamil) 5 mg STK-MED ONCE .ROUTE ; Start 08/23/21 at 16:23; Stop 08/23/21 at 16:24; Status DC Nitroglycerin (Nitroglycerin) 200 mcg STK-MED ONCE .ROUTE ; Start 08/23/21 at 16:23; Stop 08/23/21 at 16:24; Status DC Aspirin (Aspirin Chewable) 81 mg DAILYWBKFT PO Last administered on 09/09/21at 08:29; Start 08/24/21 at 08:00 Phenylephrine HCl 50 mg/Sodium Chloride 255 ml @ 14.351 mls/ hr CONT PRN IV PER PROTOCOL Last administered on 08/23/21at 16:42; Start 08/23/21 at 16:45 Phenylephrine HCl (PHENYLEPHRINE in 0.9% NACL PF) 1 mg STK-MED ONCE IV ; Start 08/23/21 at 16:41; Stop 08/23/21 at 16:41; Status DC Heparin Sodium (Porcine) (Heparin Sodium) 10,000 unit STK-MED ONCE .ROUTE ; Start 08/23/21 at 16:47; Stop 08/23/21 at 16:47; Status DC Norepinephrine Bitartrate 8 mg/ Dextrose 258 ml @ 18.15 mls/ hr CONT PRN IV PER PROTOCOL Last administered on 09/09/21at 07:02; Start 08/23/21 at 17:00 Iodixanol (Visipaque 320) 100 ml STK-MED ONCE .ROUTE ; Start 08/23/21 at 17:07; Stop 08/23/21 at 17:07; Status DC Nitroglycerin (Nitroglycerin) 200 mcg 1X ONCE IART Last administered on 08/23/21at 16:35; Start 08/23/21 at 17:15; Stop 08/23/21 at 17:16; Status DC Verapamil HCl (Verapamil) 2.5 mg 1X ONCE IART Last administered on 08/23/21at 16:35; Start 08/23/21 at 17:15; Stop 08/23/21 at 17:16; Status DC Heparin Sodium (Porcine) (Heparin Sodium) 2,500 unit 1X ONCE IART Last administered on 08/23/21at 16:42; Start 08/23/21 at 17:15; Stop 08/23/21 at 17 :16; Status DC Heparin Sodium/ Sodium Chloride (HEPARIN for ARTERIAL LINE FLUSH) 1,000 unit 1X ONCE IART Last administered on 08/23/21at 17:15; Start 08/23/21 at 17:15; Stop 08/23/21 at 17:16; Status DC Heparin Sodium/ Sodium Chloride (HEPARIN for ARTERIAL LINE FLUSH) 4,000 unit 1X ONCE IV Last administered on 08/23/21at 17:15; Start 08/23/21 at 17:15; Stop 08/23/21 at 17:16; Status DC Iodixanol (Visipaque 320) 100 ml 1X ONCE IART Last administered on 08/23/21at 17:15; Start 08/23/21 at 17:15; Stop 08/23/21 at 17:16; Status DC Heparin Sodium (Porcine) (Heparin Sodium) 5,000 unit 1X ONCE INT CAT Last administered on 08/23/21at 16:52; Start 08/23/21 at 17:15; Stop 08/23/21 at 17:16; Status DC Tirofiban/Sodium Chloride 250 ml @ As Directed STK-MED ONCE IV ; Start 08/23/21 at 17:18; Stop 08/23/21 at 17:18; Status DC Tirofiban/Sodium Chloride 250 ml @ 16.884 mls/ hr CONT PRN IV PER PROTOCOL Last administered on 08/23/21at 17:16; Start 08/23/21 at 17:45; Stop 08/24/21 at 11:44; Status DC Heparin Sodium (Porcine) (Heparin Sodium) 5,000 unit 1X ONCE IV Last administered on 08/23/21at 17:09; Start 08/23/21 at 18:30; Stop 08/23/21 at 18:31; Status DC Levetiracetam 100 ml @ 400 mls/hr Q12HR IV Last administered on 08/26/21at 11:29; Start 08/23/21 at 21:00; Stop 08/26/21 at 21:06; Status DC Heparin Sodium/ Dextrose 250 ml @ 11.256 mls/ hr CONT PRN IV PER PROTOCOL Last administered on 09/04/21at 05:21; Start 08/23/21 at 18:45; Stop 09/04/21 at 16:22; Status DC Heparin Sodium (Porcine) (Heparin Sodium) 2,350 unit PRN Q6HRS PRN IV FOR UFH LEVEL LESS THAN 0.2 Last administered on 08/27/21at 01:28; Start 08/23/21 at 18:45; Stop 09/04/21 at 16:22; Status DC Clopidogrel Bisulfate (Plavix) 600 mg 1X ONCE PO Last administered on 08/23/21at 22:06; Start 08/23/21 at 22:30; Stop 08/23/21 at 22:31; Status DC Potassium Chloride/Water 100 ml @ 100 mls/hr Q1H IV Last administered on 08/24/21at 02:00; Start 08/23/21 at 22:00; Stop 08/24/21 at 01:59; Status DC Daptomycin 520 mg/ Sodium Chloride 50 ml @ 100 mls/hr Q24H IV Last administered on 08/26/21at 12:57; Start 08/24/21 at 11:00; Stop 08/27/21 at 08:17; Status DC Linezolid (Zyvox) 600 mg BID PO Last administered on 09/01/21at 08:32; Start 08/24/21 at 10:00; Stop 09/01/21 at 09:30; Status DC Amiodarone HCl (Cordarone) 200 mg DAILY PO Last administered on 09/09/21at 08:29; Start 08/24/21 at 12:00 Furosemide (Lasix) 40 mg DAILY IVP Last administered on 09/04/21at 10:50; Start 08/25/21 at 09:00; Stop 09/05/21 at 17:31; Status DC Atorvastatin Calcium (Lipitor) 20 mg QHS PO Last administered on 08/26/21at 22:04; Start 08/24/21 at 21:00; Stop 08/27/21 at 13:59; Status DC Clopidogrel Bisulfate (Plavix) 75 mg 1X ONCE PO ; Start 08/24/21 at 11:30; Stop 08/24/21 at 11:31; Status UNV Clopidogrel Bisulfate (Plavix) 75 mg DAILYWBKFT PO Last administered on 09/07/21at 07:41; Start 08/24/21 at 12:00 Epinephrine HCl (EPINEPHrine SYRINGE) 1 mg STK-MED ONCE .ROUTE ; Start 08/23/21 at 17:00; Stop 08/24/21 at 12:21; Status DC Sodium Bicarbonate (Sodium Bicarb Adult 8.4% Syr) 50 meq STK-MED ONCE .ROUTE ; Start 08/23/21 at 17:00; Stop 08/24/21 at 12:21; Status DC Potassium Chloride/Water 100 ml @ 100 mls/hr Q1H IV Last administered on 08/25/21at 13:32; Start 08/25/21 at 10:00; Stop 08/25/21 at 12:59; Status DC Potassium Chloride/Water 100 ml @ 100 mls/hr Q1H IV Last administered on 08/26/21at 10:05; Start 08/26/21 at 09:00; Stop 08/26/21 at 11:59; Status DC Potassium Bicarbonate (Potassium Effervescent Tablet) 60 meq 1X ONCE PO Last administered on 08/26/21at 13:51; Start 08/26/21 at 10:30; Stop 08/26/21 at 10:31; Status DC Levetiracetam 500 mg/Dextrose 105 ml @ 100 mls/hr Q12HR IV Last administered on 08/28/21at 09:00; Start 08/26/21 at 21:30; Stop 08/28/21 at 12:27; Status DC Potassium Bicarbonate (Potassium Effervescent Tablet) 20 meq TID PO Last administered on 09/04/21at 21:00; Start 08/27/21 at 09:30; Stop 09/05/21 at 16:54; Status DC Losartan Potassium (Cozaar) 25 mg DAILY PO Last administered on 09/04/21at 10:08; Start 08/27/21 at 15:00; Stop 09/05/21 at 17:07; Status DC Spironolactone (Aldactone) 25 mg DAILY PO Last administered on 09/04/21at 13:00; Start 08/27/21 at 15:00; Stop 09/05/21 at 17:08; Status DC Atorvastatin Calcium (Lipitor) 40 mg QHS PO Last administered on 09/08/21at 22:07; Start 08/27/21 at 21:00 Atropine Sulfate (ATROPINE 1mg SYRINGE) 1 mg STK-MED ONCE .ROUTE ; Start 08/23/21 at 12:32; Stop 08/27/21 at 14:26; Status DC Levetiracetam 100 ml @ 100 mls/hr Q12HR IV ; Start 08/28/21 at 21:00; Status Cancel Levetiracetam (Keppra Oral Soln) 500 mg BID PEG Last administered on 09/09/21at 08:29; Start 08/28/21 at 21:00 Heparin Sodium (Porcine) (Heparin Sodium) 10,000 unit STK-MED ONCE .ROUTE ; Start 08/30/21 at 12:56; Stop 08/30/21 at 12:56; Status DC Verapamil HCl (Verapamil) 5 mg STK-MED ONCE .ROUTE ; Start 08/30/21 at 12:56; Stop 08/30/21 at 12:56; Status DC Nitroglycerin (Nitroglycerin) 200 mcg STK-MED ONCE .ROUTE ; Start 08/30/21 at 12:56; Stop 08/30/21 at 12:56; Status DC Iodixanol (Visipaque 320) 100 ml STK-MED ONCE .ROUTE ; Start 08/30/21 at 12:57; Stop 08/30/21 at 12:57; Status DC Lidocaine HCl (Xylocaine-Mpf 1% 2ml Vial) 2 ml STK-MED ONCE .ROUTE ; Start 08/30/21 at 12:57; Stop 08/30/21 at 12:57; Status DC Heparin Sodium/ Sodium Chloride 1,000 ml @ As Directed STK-MED ONCE .ROUTE ; Start 08/30/21 at 12:57; Stop 08/30/21 at 12:57; Status DC Nitroglycerin (Nitroglycerin) 200 mcg 1X ONCE IART Last administered on 08/30/21at 13:34; Start 08/30/21 at 13:00; Stop 08/30/21 at 13:04; Status DC Verapamil HCl (Verapamil) 2.5 mg 1X ONCE IART Last administered on 08/30/21at 13:34; Start 08/30/21 at 13:00; Stop 08/30/21 at 13:04; Status DC Heparin Sodium (Porcine) (Heparin Sodium) 2,500 unit 1X ONCE IART Last administered on 08/30/21at 13:34; Start 08/30/21 at 13:00; Stop 08/30/21 at 13:04; Status DC Heparin Sodium/ Sodium Chloride (HEPARIN for ARTERIAL LINE FLUSH) 1,000 unit 1X ONCE IART Last administered on 08/30/21at 13:00; Start 08/30/21 at 13:00; Stop 08/30/21 at 13:04; Status DC Heparin Sodium/ Sodium Chloride (HEPARIN for ARTERIAL LINE FLUSH) 1,000 unit 1X ONCE IART Last administered on 08/30/21at 13:00; Start 08/30/21 at 13:00; Stop 08/30/21 at 13:04; Status DC Iodixanol (Visipaque 320) 100 ml 1X ONCE IART Last administered on 08/30/21at 13:55; Start 08/30/21 at 13:00; Stop 08/30/21 at 13:04; Status DC Lidocaine HCl (Xylocaine-Mpf 1% 2ml Vial) 2 ml 1X ONCE INJ Last administered on 08/30/21at 13:33; Start 08/30/21 at 13:00; Stop 08/30/21 at 13:04; Status DC Info (CONTRAST GIVEN -- Rx MONITORING) 1 each PRN DAILY PRN MC SEE COMMENTS; Start 08/30/21 at 13:15; Stop 09/01/21 at 13:14; Status DC Alteplase, Recombinant (Cathflo For Central Catheter Clearance) 1 mg 1X ONCE INT CAT Last administered on 08/31/21at 12:11; Start 08/31/21 at 10:45; Stop 08/31/21 at 10:46; Status DC Methylprednisolone Sodium Succinate (SOLU-Medrol 125MG VIAL) 60 mg Q8HRS IV Last administered on 09/04/21at 06:02; Start 09/01/21 at 14:00; Stop 09/04/21 at 08:19; Status DC Methylprednisolone Sodium Succinate (SOLU-Medrol 40MG VIAL) 40 mg Q8HRS IV Last administered on 09/06/21at 05:37; Start 09/04/21 at 14:00; Stop 09/06/21 at 10:03; Status DC Fentanyl Citrate (Fentanyl 2ml Vial) 25 mcg PRN Q5MIN PRN IVP MILD PAIN 1-3; Start 09/05/21 at 06:00; Stop 09/06/21 at 05:59; Status DC Fentanyl Citrate (Fentanyl 2ml Vial) 50 mcg PRN Q5MIN PRN IVP MODERATE PAIN 4- 6; Start 09/05/21 at 06:00; Stop 09/06/21 at 05:59; Status DC Morphine Sulfate (Morphine Sulfate) 1 mg PRN Q10MIN PRN IVP SEVERE PAIN 7-10; Start 09/05/21 at 06:00; Stop 09/06/21 at 05:59; Status DC Ringer's Solution 1,000 ml @ 30 mls/hr Q24H IV ; Start 09/05/21 at 06:00; Stop 09/05/21 at 17:59; Status DC Hydromorphone HCl (Dilaudid) 0.5 mg PRN Q10MIN PRN IVP SEVERE PAIN 7-10, 2nd CHOICE; Start 09/05/21 at 06:00; Stop 09/06/21 at 05:59; Status DC Prochlorperazine Edisylate (Compazine) 5 mg PACU PRN PRN IVP NAUSEA, MRX1; Start 09/05/21 at 06:00; Stop 09/06/21 at 05:59; Status DC Metoprolol Tartrate (Lopressor) 25 mg BID PO Last administered on 09/04/21at 20:59; Start 09/04/21 at 21:00; Stop 09/05/21 at 17:31; Status DC Norepinephrine Bitartrate 8 mg/ Dextrose 258 ml @ 0 mls/hr CONT IV ; Start 09/05/21 at 09:30; Status UNV Sodium Chloride 500 ml @ 500 mls/hr 1X ONCE IV Last administered on 09/05/21at 08:00; Start 09/05/21 at 08:00; Stop 09/05/21 at 12:11; Status DC Heparin Sodium/ Dextrose 250 ml @ 11.484 mls/ hr CONT PRN IV PER PROTOCOL Last administered on 09/05/21at 15:53; Start 09/05/21 at 14:45 Heparin Sodium (Porcine) (Heparin Sodium) 2,400 unit PRN Q6HRS PRN IV FOR UFH LEVEL LESS THAN 0.2; Start 09/05/21 at 14:45 Linezolid/Dextrose 300 ml @ 300 mls/hr Q12HR IV Last administered on 09/09/21at 08:54; Start 09/05/21 at 21:00 Vancomycin HCl (Vancomycin Oral Solution) 125 mg [id number] PO ; Start 09/05/21 at 17:30; Stop 09/06/21 at 14:59; Status DC Epinephrine HCl (EPINEPHrine SYRINGE) 1 mg STK-MED ONCE .ROUTE ; Start 09/06/21 at 07:11; Stop 09/06/21 at 07:12; Status DC Digoxin (Lanoxin) 250 mcg 1X ONCE IV Last administered on 09/06/21at 08:39; Start 09/06/21 at 08:30; Stop 09/06/21 at 08:31; Status DC Methylprednisolone Sodium Succinate (SOLU-Medrol 40MG VIAL) 40 mg Q12H IV Last administered on 09/09/21at 08:28; Start 09/06/21 at 21:00 Epinephrine HCl (EPINEPHrine SYRINGE) 1 mg STK-MED ONCE .ROUTE ; Start 09/05/21 at 17:00; Stop 09/07/21 at 08:29; Status DC Vitals/I & O Vital Sign - Last 24 Hours 09/08/21 09/08/21 09/08/21 09/08/21 14:00 15:00 15:15 15:39 Pulse 77 77 Resp B/P (MAP) 150/96 162/100 119/73 Pulse Ox 98 99 100 O2 Delivery Ventilator Ventilator Ventilator 09/08/21 09/08/21 09/08/21 09/08/21 16:00 16:50 17:00 17:15 Temp 98.1 98.1 Pulse 63 Resp 22 B/P (MAP) 86/56 76/55 73/52 85/57 Pulse Ox 99 O2 Delivery Ventilator 09/08/21 09/08/21 09/08/21 09/08/21 17:50 18:12 19:00 20:00 Temp 97.7 97.7 Pulse 58 60 58 Resp B/P (MAP) 96/70 105/71 112/78 Pulse Ox 100 99 100 100 O2 Delivery Ventilator Ventilator Ventilator Ventilator 09/08/21 09/08/21 09/08/21 09/08/21 20:00 20:52 21:00 22:00 Pulse 62 62 Resp B/P (MAP) 114/70 113/77 Pulse Ox 100 100 100 O2 Delivery Mechanical Ventilator Ventilator Ventilator Ventilator 09/08/21 09/09/21 09/09/21 09/09/21 23:00 00:00 00:07 00:45 Temp 97.7 97.7 Pulse 66 65 Resp B/P (MAP) 119/78 148/94 164/86 Pulse Ox 100 100 100 O2 Delivery Ventilator Ventilator Ventilator 09/09/21 09/09/21 09/09/21 09/09/21 01:00 02:00 02:45 03:00 Pulse 70 69 82 Resp B/P (MAP) 149/90 164/92 173/91 162/86 Pulse Ox 100 100 100 O2 Delivery Ventilator Ventilator Ventilator 09/09/21 09/09/21 09/09/21 09/09/21 04:00 04:15 04:55 05:00 Temp 98.8 98.8 Pulse 83 78 Resp B/P (MAP) 161/90 149/79 150/71 Pulse Ox 100 100 100 O2 Delivery Ventilator Ventilator Ventilator 09/09/21 09/09/21 09/09/21 09/09/21 05:45 06:00 07:00 07:58 Pulse 86 88 Resp B/P (MAP) 159/85 144/85 167/87 Pulse Ox 100 100 100 O2 Delivery Ventilator Ventilator Ventilator 09/09/21 09/09/21 09/09/21 09/09/21 08:00 08:00 08:29 09:00 Temp 98.1 98.1 Pulse 66 80 79 Resp B/P (MAP) 165/93 153/83 155/96 Pulse Ox 100 100 O2 Delivery Ventilator Mechanical Ventilator Ventilator 09/09/21 09/09/21 09/09/21 09/09/21 09:35 10:00 11:00 11:17 Pulse 81 79 Resp B/P (MAP) 165/87 155/90 166/102 Pulse Ox 100 100 100 O2 Delivery Ventilator Ventilator Ventilator 09/09/21 09/09/21 09/09/21 09/09/21 11:32 11:52 12:00 12:15 Temp 98.5 98.5 Pulse 89 B/P (MAP) 118/73 167/99 145/81 Pulse Ox 100 100 O2 Delivery Ventilator Ventilator 09/09/21 13:41 Pulse Ox 100 O2 Delivery Ventilator Intake and Output 09/08/21 09/08/21 09/09/21 15:00 23:00 07:00 Intake Total 400 ml 792 ml 1754 ml Output Total 1490 ml 1650 ml 1450 ml Balance -1090 ml -858 ml 304 ml Justifications for Admission Other Justification SUNNY MORALES MD Sep 09, 2021 13:57
--- NOTE | 2021-09-09 13:58 | PDOC ---
SURGICAL PROGRESS NOTE DATE: 09/09/21 TIME: 13:57 Subjective Pt intubated and sedated, spontaneous movement Vital Signs Vital Signs Date Time Temp Pulse Resp B/P (MAP) Pulse Ox O2 Delivery O2 Flow Rate FiO2 09/09/21 13:41 100 Ventilator 09/09/21 12:15 145/81 09/09/21 12:00 98.5 89 22 98.5 I&O Intake and Output 09/09/21 07:00 Intake Total 2946 ml Output Total 4590 ml Balance -1644 ml IV Total 1900 ml Tube Feeding 796 ml Other 250 ml Output Urine Total 4590 ml Gastric Drainage Total 0 ml General: No acute distress HEENT: Other (orally intubated) Labs Laboratory Tests Test 09/08/21 05:50 09/09/21 05:54 White Blood Count 27.5 x10^3/uL (4.0-11.0) 20.5 x10^3/uL (4.0-11.0) Red Blood Count 2.94 x10^6/uL (4.30-5.70) 2.92 x10^6/uL (4.30-5.70) Hemoglobin 8.5 g/dL (13.0-17.5) 8.6 g/dL (13.0-17.5) Hematocrit 26.1 % (39.0-53.0) 26.2 % (39.0-53.0) Mean Corpuscular Volume 89 fL (79-100) 90 fL (79-100) Mean Corpuscular Hemoglobin 29 pg (25-35) 30 pg (25-35) Mean Corpuscular Hemoglobin Concent 33 g/dL (31-37) 33 g/dL (31-37) Red Cell Distribution Width 15.6 % (11.5-14.5) 15.6 % (11.5-14.5) Platelet Count 287 x10^3/uL (140-400) 236 x10^3/uL (140-400) Sodium Level 140 mmol/L (136-145) 137 mmol/L (136-145) Potassium Level 4.7 mmol/L (3.5-5.1) 4.4 mmol/L (3.5-5.1) Chloride Level 101 mmol/L (98-107) 100 mmol/L (98-107) Carbon Dioxide Level 33 mmol/L (21-32) 31 mmol/L (21-32) Anion Gap 6 (6-14) 6 (6-14) Blood Urea Nitrogen 21 mg/dL (8-26) 21 mg/dL (8-26) Creatinine 0.7 mg/dL (0.7-1.3) 0.6 mg/dL (0.7-1.3) Estimated GFR (Cockcroft-Gault) 113.9 136.1 BUN/Creatinine Ratio 30 (6-20) 35 (6-20) Glucose Level 168 mg/dL (70-99) 150 mg/dL (70-99) Calcium Level 7.7 mg/dL (8.5-10.1) 7.9 mg/dL (8.5-10.1) Total Bilirubin 0.7 mg/dL (0.2-1.0) 0.6 mg/dL (0.2-1.0) Aspartate Amino Transf (AST/SGOT) 36 U/L (15-37) 51 U/L (15-37) Alanine Aminotransferase (ALT/SGPT) 48 U/L (16-63) 49 U/L (16-63) Alkaline Phosphatase 87 U/L (46-116) 106 U/L (46-116) Total Protein 5.6 g/dL (6.4-8.2) 5.9 g/dL (6.4-8.2) Albumin 2.4 g/dL (3.4-5.0) 2.5 g/dL (3.4-5.0) Albumin/Globulin Ratio 0.8 (1.0-1.7) 0.7 (1.0-1.7) Triglycerides Level 166 mg/dL (0-150) Laboratory Tests Test 09/09/21 05:54 White Blood Count 20.5 x10^3/uL (4.0-11.0) Red Blood Count 2.92 x10^6/uL (4.30-5.70) Hemoglobin 8.6 g/dL (13.0-17.5) Hematocrit 26.2 % (39.0-53.0) Mean Corpuscular Volume 90 fL (79-100) Mean Corpuscular Hemoglobin 30 pg (25-35) Mean Corpuscular Hemoglobin Concent 33 g/dL (31-37) Red Cell Distribution Width 15.6 % (11.5-14.5) Platelet Count 236 x10^3/uL (140-400) Sodium Level 137 mmol/L (136-145) Potassium Level 4.4 mmol/L (3.5-5.1) Chloride Level 100 mmol/L (98-107) Carbon Dioxide Level 31 mmol/L (21-32) Anion Gap 6 (6-14) Blood Urea Nitrogen 21 mg/dL (8-26) Creatinine 0.6 mg/dL (0.7-1.3) Estimated GFR (Cockcroft-Gault) 136.1 BUN/Creatinine Ratio 35 (6-20) Glucose Level 150 mg/dL (70-99) Calcium Level 7.9 mg/dL (8.5-10.1) Total Bilirubin 0.6 mg/dL (0.2-1.0) Aspartate Amino Transf (AST/SGOT) 51 U/L (15-37) Alanine Aminotransferase (ALT/SGPT) 49 U/L (16-63) Alkaline Phosphatase 106 U/L (46-116) Total Protein 5.9 g/dL (6.4-8.2) Albumin 2.5 g/dL (3.4-5.0) Albumin/Globulin Ratio 0.7 (1.0-1.7) Assessment/Plan Respiratory failure will tentatively plan trach placement tomorrow. d/w pt's SO Justicifation of Admission Dx: Justifications for Admission: Justification of Admission Dx: N/A TERESA ODEN MD Sep 09, 2021 13:58
[2021-09-09] MEDS: ATORVASTATIN CALCIUM 40 MG TABLET. PO SCH (20:50)
[2021-09-10] VITALS (36 sets, daily range): BP systolic 69–185; BP diastolic 49–104
[2021-09-10] MEDS: PIPERACILLIN/TAZOBACTAM 4.5 GM in IV DEXTROSE 5% 100ML 100 ML IV SCH ×2 (00:05→05:32)
[2021-09-10] MEDS: PROPOFOL 100 ML IV PRN ×6 (01:10→23:22)
[2021-09-10] MEDS: MIDAZOLAM 100mg/100ml NS BAG 100 ML IV PRN ×2 (03:28→13:54)
[2021-09-10] MEDS: VECURONIUM BOLUS 10 MG VIAL. IV PRN (05:33)
[2021-09-10 06:47] LABS: HEMATOCRIT 27.3 % (39.0-53.0); HEMOGLOBIN 8.7 g/dL (13.0-17.5); RED BLOOD COUNT 3.06 x10^6/uL (4.30-5.70)
[2021-09-10 06:51] LABS: WHITE BLOOD COUNT 41.9 x10^3/uL (4.0-11.0)
[2021-09-10 07:07] LABS: CALCIUM 7.9 mg/dL (8.5-10.1); CREATININE 0.6 mg/dL (0.7-1.3); GFR 136.1; MAGNESIUM 1.9 mg/dL (1.8-2.4)
[2021-09-10] MEDS: CLOPIDOGREL BISULFATE 75 MG TABLET PO SCH (08:00)
[2021-09-10] MEDS: FAMOTIDINE 20 MG/2 ML VIAL IVP SCH (08:07)
[2021-09-10] MEDS: methylPREDNISolone SOD SUCC PF 40 MG/ML VIAL. IV SCH (08:07)
--- NOTE | 2021-09-10 08:36 | PN ---
DATE: 09/10/2021 No dictation, ALIZA/JAN DR: Vannessa TID: [id number]
--- NOTE | 2021-09-10 08:48 | PDOC ---
PULMONARY PROGRESS NOTES DATE: 09/10/21 TIME: 08:48 Subjective No overnight events Currently on assist control ventilation Vitals Vital Signs Date Time Temp Pulse Resp B/P (MAP) Pulse Ox O2 Delivery O2 Flow Rate FiO2 09/10/21 08:00 Mechanical Ventilator 09/10/21 08:00 100.9 110 22 116/68 93 100.9 Comments ros unable to obtain sedated on vent HEENT: Other (nc at perrl nose clear orally intubated neck no lad no thyromegaly) Lungs: Crackles Cardiovascular: S1, S2 Abdomen: Soft, Non-tender Extremities: No Edema Skin: Warm Labs Laboratory Tests Test 09/09/21 05:54 09/09/21 17:18 09/10/21 05:20 09/10/21 05:30 White Blood Count 20.5 x10^3/uL (4.0-11.0) 41.9 x10^3/uL (4.0-11.0) Red Blood Count 2.92 x10^6/uL (4.30-5.70) 3.06 x10^6/uL (4.30-5.70) Hemoglobin 8.6 g/dL (13.0-17.5) 8.7 g/dL (13.0-17.5) Hematocrit 26.2 % (39.0-53.0) 27.3 % (39.0-53.0) Mean Corpuscular Volume 90 fL (79-100) 89 fL (79-100) Mean Corpuscular Hemoglobin 30 pg (25-35) 29 pg (25-35) Mean Corpuscular Hemoglobin Concent 33 g/dL (31-37) 32 g/dL (31-37) Red Cell Distribution Width 15.6 % (11.5-14.5) 16.0 % (11.5-14.5) Platelet Count 236 x10^3/uL (140-400) 270 x10^3/uL (140-400) Sodium Level 137 mmol/L (136-145) 139 mmol/L (136-145) Potassium Level 4.4 mmol/L (3.5-5.1) 4.0 mmol/L (3.5-5.1) Chloride Level 100 mmol/L (98-107) 101 mmol/L (98-107) Carbon Dioxide Level 31 mmol/L (21-32) 28 mmol/L (21-32) Anion Gap 6 (6-14) 10 (6-14) Blood Urea Nitrogen 21 mg/dL (8-26) 21 mg/dL (8-26) Creatinine 0.6 mg/dL (0.7-1.3) 0.6 mg/dL (0.7-1.3) Estimated GFR (Cockcroft-Gault) 136.1 136.1 BUN/Creatinine Ratio 35 (6-20) Glucose Level 150 mg/dL (70-99) 125 mg/dL (70-99) Calcium Level 7.9 mg/dL (8.5-10.1) 7.9 mg/dL (8.5-10.1) Total Bilirubin 0.6 mg/dL (0.2-1.0) Aspartate Amino Transf (AST/SGOT) 51 U/L (15-37) Alanine Aminotransferase (ALT/SGPT) 49 U/L (16-63) Alkaline Phosphatase 106 U/L (46-116) Total Protein 5.9 g/dL (6.4-8.2) Albumin 2.5 g/dL (3.4-5.0) Albumin/Globulin Ratio 0.7 (1.0-1.7) Glucose (Fingerstick) 142 mg/dL (70-99) Magnesium Level 1.9 mg/dL (1.8-2.4) Laboratory Tests Test 09/09/21 17:18 09/10/21 05:20 09/10/21 05:30 Glucose (Fingerstick) 142 mg/dL (70-99) White Blood Count 41.9 x10^3/uL (4.0-11.0) Red Blood Count 3.06 x10^6/uL (4.30-5.70) Hemoglobin 8.7 g/dL (13.0-17.5) Hematocrit 27.3 % (39.0-53.0) Mean Corpuscular Volume 89 fL (79-100) Mean Corpuscular Hemoglobin 29 pg (25-35) Mean Corpuscular Hemoglobin Concent 32 g/dL (31-37) Red Cell Distribution Width 16.0 % (11.5-14.5) Platelet Count 270 x10^3/uL (140-400) Sodium Level 139 mmol/L (136-145) Potassium Level 4.0 mmol/L (3.5-5.1) Chloride Level 101 mmol/L (98-107) Carbon Dioxide Level 28 mmol/L (21-32) Anion Gap 10 (6-14) Blood Urea Nitrogen 21 mg/dL (8-26) Creatinine 0.6 mg/dL (0.7-1.3) Estimated GFR (Cockcroft-Gault) 136.1 Glucose Level 125 mg/dL (70-99) Calcium Level 7.9 mg/dL (8.5-10.1) Magnesium Level 1.9 mg/dL (1.8-2.4) Impression . 1. Acute hypoxic respiratory failure secondary to COVID-19 pneumonia, acute respiratory distress syndrome and possible underlying fibrosis and emphysema., Extubated 08/20, reintubated 08/23 status post CODE BLUE/semi-CODE BLUE on 09/[address] chest 3. Hypernatremia 4. Suspected underlying severe chronic obstructive pulmonary disease. 5. COVID-19 viral pneumonia.--- Covid recovered 6. Abnormal chest x-ray with bilateral diffuse infiltrates related to COVID-19 viral pneumonia.--- Covid recovered 7. Patient reintubated 08/23, status post CODE BLUE 8. Abnormal x-ray from 08/15, possible ARDS, possible pulmonary edema, possible aspiration 9. ST elevation MS status post intra-aortic balloon pump--08/23/2021 10. Emergent cardiac catheterization revealing 90% stenotic lesion 11. Echocardiogram revealing ejection fraction of 35 to 40% pulmonary artery pressure of 34 inferior septal wall hypokinesis 12. Bacteremia Staph epidermidis 13. Necrotic toe left second, suspect related COVID 14. Leukocytosis Cardiac catheterization 08/30 Due to large vessel size a decision was made to defer stenting at this time for continued medical therapy. After the patient is fully extubated and depending on symptoms could consider PCI. Conclusion 1. Recanalized right coronary artery with brisk blood flow. 2. Residual proximal 70% RCA stenosis with significant ectasia of the RCA francisco suring up to 6.25 mm. 3. Normal left ventricular filling pressures. Recommendations 1. Continue aspirin, Plavix and heparin drip. 2. Continue plans for extubation. 3. After patient is extubated and stabilized depending on symptoms we will consider high risk PCI with specialized MegaTron stent given the large vessel size. Plan . Updated 09/10 Tracheotomy placed on hold because of leukocytosis Decrease steroids Antibiotics per ID Discussed with at the bedside ABG noted Blood cultures after 4 days negative 09/09 cont vent support setting reviewed, ct of head no acute abnl elevate hob Repeat LHC showed recanalized right coronary artery with brisk blood flow. Residual proximal 70% RCA stenosis with significant ectasia of the RCA measuring up to 6.25 mm. levo to keep map 60 abx per id trach next week overall prognosis poor discussed w george 09/08 cont vent support setting reviewed, re consult neuro elevate [facility] Repeat LHC showed recanalized right coronary artery with brisk blood flow. Residual proximal 70% RCA stenosis with significant ectasia of the RCA measuring up to 6.25 mm. Patient currently off pressors no dose change per cardiology abx per id trach next week discussed w REBECCA Campuzano MD Sep 10, 2021 08:48
[2021-09-10 09:14] LABS: BASE EXCESS ABG 4 mmol/L (-3-3); HCO3 ABG 28 mmol/L (21-28); PCO2 ABG 42 mmHg (35-46); PO2 ABG 64 mmHg (65-108); SAT O2 ABG 92 % (92-99)
--- NOTE | 2021-09-10 09:18 | PN ---
DATE: 09/10/2021 SUBJECTIVE: The patient has continued to be sedated on propofol, Versed and fentanyl. He is also on Levophed. His oxygen requirement has increased and did required paralytic agent at point of time overnight and this morning, his white cell count has dramatically risen from 20.5 up to 41.9. PHYSICAL EXAMINATION: GENERAL: When I examined him, he was pale, not jaundiced, cyanosed, no lymphadenopathy, no thyromegaly, no jugular venous distention. No lower limb edema. VITAL SIGNS: His heart rate was 110, blood pressure was 133/82, temperature was 99, respiratory rate 22, and oxygen saturation was 95% on FiO2 of 40%. HEAD, EYES, EARS, NOSE, AND THROAT: Showed normocephalic, atraumatic. Has orotracheal and orogastric tube. NECK: Supple. HEART: Normal first and second heart sounds. No gallop, rub or murmur. CHEST: Clear to auscultation, no crepitation or rhonchi. ABDOMEN: Distended, soft, nontender. NEUROLOGIC: He is heavily sedated. His intake over the last 24 hours was 2900, output was 4600. LABORATORY DATA: As of this morning, his white cell count was 41.9, hemoglobin 8.7, hematocrit 27, MCV 89 and platelet count 270,000. His chemistry showed a serum sodium 138, potassium 4, chloride 101, bicarbonate 28, anion gap of 10, BUN 21, creatinine 0.6. Estimated GFR was 136 mL per minute. His glucose was 125, calcium was 7.9, magnesium was 1.9. ASSESSMENT: 1. The patient is status post cardiac arrest, likely due to hypoxemia as he had COVID-19 pneumonia as well as acute inferior wall myocardial infarction. Apparently, the patient went into ventricular tachycardia and was shocked and also went into ventricular fibrillation, treated with CPR and epinephrine with return of spontaneous circulation. He also developed an episode of bradycardia with bigeminy as well as atrial fibrillation with rapid ventricular response that has responded to IV digoxin. He is now in sinus rhythm. 2. Acute on chronic hypoxic respiratory failure. 3. Acute respiratory distress syndrome. 4. Acute exacerbation of chronic obstructive pulmonary disease. 5. COVID-19 pneumonia. 6. Atrial fibrillation with rapid ventricular response that is rate controlled. He is off heparin. His Plavix was also on hold. He is only on aspirin for the time being in anticipation of tracheostomy tube placement and gastrostomy tube placement. 7. Cardiogenic as well as septic shock. 8. The patient underwent cardiac catheterization for second time which showed that he has recanalized his right coronary artery for which he was started on aspirin and Plavix with a high risk PCI and stent deployment given the large size of the coronary artery. 9. The patient was scheduled for tracheostomy tube placement as well as PEG tube placement; however, he is somewhat unstable and his white cell count has dramatically risen to almost 42,000. PLAN: Obviously to continue sedation, mechanical ventilation. Continue with Keppra for seizure disorder. Continue with aspirin as heparin and Plavix were discontinued. Continue with DVT and GI prophylaxis. ALIZA/JAN DR: Vannessa TID: [id number]
--- NOTE | 2021-09-10 09:26 | RAD ---
XR CHEST 1V History: Hypoxia Comparison: 09/07/2021 Technique: Portable AP chest radiograph. FINDINGS/ IMPRESSION: Tubes and lines: Endotracheal tube tip projects 6.5 cm above the sabino. Gastric tube courses below t he left diaphragm into the expected region stomach. Lungs and pleura: Diffuse left greater than right bilateral lung opacities appear similar to comparis on. Small left pleural effusion. No pneumothorax. Cardiac silhouette and pulmonary vasculature: Unchanged. Osseous structures and other: No acute findings. Electronically signed by: Raphael Gallagher MD (09/10/2021 9:23 AM) [id number]
--- NOTE | 2021-09-10 09:54 | PDOC ---
PROGRESS NOTES Date of Service DATE: 09/10/21 TIME: 09:49 Assessment Anoxic encephalopathy, CODE BLUE, 08/23,, in the setting of Covid pneumonia with respiratory failure, hyponatremia, atrial fibrillation, multiorgan damage, cardiogenic as well as septic shock He is on levetiracetam for seizures Plan Not brain , very poor prognosis, continuing full supportive care Subjective None Objective Vital Signs Date Time Temp Pulse Resp B/P (MAP) Pulse Ox O2 Delivery O2 Flow Rate FiO2 09/10/21 09:15 76/50 09/10/21 09:06 94 Ventilator 09/10/21 09:00 101 22 09/10/21 08:00 100.9 100.9 Intake and Output 09/10/21 07:00 Intake Total 3319 ml Output Total 3100 ml Balance 219 ml IV Total 1661 ml Tube Feeding 1383 ml Other 275 ml Output Urine Total 3100 ml PHYSICAL EXAM Sedated and paralyzed PERRL. No spontaneous extraocular movement CN: no focal findings. Muscle tone: normal. Muscle strength: Not tested DTR: Not testable Plantar reflex: Silent Gait: not examined in bed. Sensory exam: Not testable Cerebellar: Not testable Review of Relevant I have reviewed the following items shey (where applicable) has been applied. Labs Laboratory Tests Test 09/09/21 05:54 09/09/21 17:18 09/10/21 05:20 09/10/21 05:30 White Blood Count 20.5 x10^3/uL (4.0-11.0) 41.9 x10^3/uL (4.0-11.0) Red Blood Count 2.92 x10^6/uL (4.30-5.70) 3.06 x10^6/uL (4.30-5.70) Hemoglobin 8.6 g/dL (13.0-17.5) 8.7 g/dL (13.0-17.5) Hematocrit 26.2 % (39.0-53.0) 27.3 % (39.0-53.0) Mean Corpuscular Volume 90 fL (79-100) 89 fL (79-100) Mean Corpuscular Hemoglobin 30 pg (25-35) 29 pg (25-35) Mean Corpuscular Hemoglobin Concent 33 g/dL (31-37) 32 g/dL (31-37) Red Cell Distribution Width 15.6 % (11.5-14.5) 16.0 % (11.5-14.5) Platelet Count 236 x10^3/uL (140-400) 270 x10^3/uL (140-400) Sodium Level 137 mmol/L (136-145) 139 mmol/L (136-145) Potassium Level 4.4 mmol/L (3.5-5.1) 4.0 mmol/L (3.5-5.1) Chloride Level 100 mmol/L (98-107) 101 mmol/L (98-107) Carbon Dioxide Level 31 mmol/L (21-32) 28 mmol/L (21-32) Anion Gap 6 (6-14) 10 (6-14) Blood Urea Nitrogen 21 mg/dL (8-26) 21 mg/dL (8-26) Creatinine 0.6 mg/dL (0.7-1.3) 0.6 mg/dL (0.7-1.3) Estimated GFR (Cockcroft-Gault) 136.1 136.1 BUN/Creatinine Ratio 35 (6-20) Glucose Level 150 mg/dL (70-99) 125 mg/dL (70-99) Calcium Level 7.9 mg/dL (8.5-10.1) 7.9 mg/dL (8.5-10.1) Total Bilirubin 0.6 mg/dL (0.2-1.0) Aspartate Amino Transf (AST/SGOT) 51 U/L (15-37) Alanine Aminotransferase (ALT/SGPT) 49 U/L (16-63) Alkaline Phosphatase 106 U/L (46-116) Total Protein 5.9 g/dL (6.4-8.2) Albumin 2.5 g/dL (3.4-5.0) Albumin/Globulin Ratio 0.7 (1.0-1.7) Glucose (Fingerstick) 142 mg/dL (70-99) Magnesium Level 1.9 mg/dL (1.8-2.4) Laboratory Tests Test 09/09/21 17:18 09/10/21 05:20 09/10/21 05:30 Glucose (Fingerstick) 142 mg/dL (70-99) White Blood Count 41.9 x10^3/uL (4.0-11.0) Red Blood Count 3.06 x10^6/uL (4.30-5.70) Hemoglobin 8.7 g/dL (13.0-17.5) Hematocrit 27.3 % (39.0-53.0) Mean Corpuscular Volume 89 fL (79-100) Mean Corpuscular Hemoglobin 29 pg (25-35) Mean Corpuscular Hemoglobin Concent 32 g/dL (31-37) Red Cell Distribution Width 16.0 % (11.5-14.5) Platelet Count 270 x10^3/uL (140-400) Sodium Level 139 mmol/L (136-145) Potassium Level 4.0 mmol/L (3.5-5.1) Chloride Level 101 mmol/L (98-107) Carbon Dioxide Level 28 mmol/L (21-32) Anion Gap 10 (6-14) Blood Urea Nitrogen 21 mg/dL (8-26) Creatinine 0.6 mg/dL (0.7-1.3) Estimated GFR (Cockcroft-Gault) 136.1 Glucose Level 125 mg/dL (70-99) Calcium Level 7.9 mg/dL (8.5-10.1) Magnesium Level 1.9 mg/dL (1.8-2.4) Microbiology 09/05/21 Urine Culture - Final, Complete 09/05/21 Blood Culture - Preliminary, Resulted NO GROWTH AFTER 4 DAYS 08/23/21 Respiratory Culture Gram Stain - Final, Complete 08/23/21 Respiratory Culture - Final, Complete Medications Current Medications Dexamethasone Sodium Phosphate (Decadron) 6 mg DAILY IVP Last administered on 08/10/21at 08:29; Start 08/01/21 at 09:00; Stop 08/10/21 at 09:01; Status DC Heparin Sodium (Porcine) (Heparin Sodium) 5,000 unit Q8HRS SQ Last administered on 08/20/21at 05:41; Start 07/31/21 at 14:00; Stop 08/20/21 at 08:37; Status DC Famotidine (Pepcid Vial) 20 mg BID IVP Last administered on 09/10/21at 08:07; Start 07/31/21 at 14:00 Fentanyl Citrate 30 ml @ 2.5 mls/hr CONT PRN IV SEE PROTOCOL Last administered on 07/31/21at 12:49; Start 07/31/21 at 12:15; Stop 07/31/21 at 16:19; Status DC Midazolam HCl 100 ml @ 1 mls/hr CONT PRN IV SEE PROTOCOL Last administered on 09/10/21at 03:28; Start 07/31/21 at 12:15 Propofol 100 ml @ 3.45 mls/hr CONT PRN IV PER PROTOCOL Last administered on 09/10/21at 05:33; Start 07/31/21 at 12:15 Vecuronium Curtis (Norcuron Bolus) 6 mg PRN 1X PRN IV VENT INDUCTION; Start 07/31/21 at 12:15; Stop 08/01/21 at 12:14; Status DC Glycerin/ Hypromellose/ Polyethylene (Artificial Tears) 1 drop PRN Q1HR PRN OU DRY EYE; Start 07/31/21 at 12:15 Dexmedetomidine HCl 400 mcg/ Sodium Chloride 100 ml @ 0 mls/hr CONT PRN IV PER PROTOCOL Last administered on 08/17/21at 12:55; Start 07/31/21 at 12:15 Midazolam HCl (Versed) 5 mg PRN 1X PRN IVP VENT INDUCTION; Start 07/31/21 at 12:15; Stop 08/01/21 at 12:14; Status DC Sodium Chloride 500 ml @ 500 mls/hr 1X PRN PRN IV SEE COMMENTS; Start 07/31/21 at 12:15 Atropine Sulfate (ATROPINE 0.5mg SYRINGE) 0.5 mg PRN Q5MIN PRN IV SEE COMMENTS; Start 07/31/21 at 12:15 Famotidine (Pepcid Vial) 20 mg BID IVP ; Start 07/31/21 at 21:00; Status UNV Piperacillin Sod/ Tazobactam Sod (Zosyn Per Pharmacy) 1 each PRN DAILY PRN MC SEE COMMENTS; Start 07/31/21 at 15:15; Stop 08/08/21 at 12:29; Status DC Piperacillin Sod/ Tazobactam Sod 3.375 gm/Sodium Chloride 50 ml @ 100 mls/hr Q6HRS IV Last administered on 08/07/21at 11:20; Start 07/31/21 at 18:00; Stop 08/07/21 at 17:59; Status DC Fentanyl Citrate 55 ml @ 1 mls/hr CONT PRN IV SEE PROTOCOL Last administered on 09/09/21at 11:22; Start 07/31/21 at 15:45 Insulin Human Lispro (HumaLOG) 0-7 UNITS Q6HRS SQ ; Start 08/02/21 at 06:00; Stop 08/07/21 at 08:09; Status DC Dextrose (Dextrose 50%-Water Syringe) 12.5 gm PRN Q15MIN PRN IV SEE COMMENTS; Start 08/01/21 at 23:00 Vecuronium Curtis (Norcuron Bolus) 6 mg PRN Q6HRS PRN IV VENTILATOR COMPLIANCE Last administered on 09/10/21at 05:33; Start 08/06/21 at 13:45 Vecuronium Curtis (Norcuron Bolus) 10 mg STK-MED ONCE IV ; Start 08/06/21 at 13:34; Stop 08/07/21 at 13:38; Status DC Sterile Water (WATER for RESP) 1,000 ml CONT PRN INH VIA VAPOTHERM DEVICE; Start 08/12/21 at 09:45; Status Cancel Dexamethasone Sodium Phosphate (Decadron) 6 mg DAILY IVP ; Start 08/17/21 at 09:00; Stop 08/16/21 at 13:31; Status DC Dexamethasone Sodium Phosphate (Decadron) 10 mg 1X ONCE IV ; Start 08/16/21 at 12:30; Stop 08/16/21 at 13:31; Status DC Acetaminophen (Tylenol) 650 mg PRN Q6HRS PRN PEG MILD PAIN / TEMP > 100.3'F Last administered on 08/20/21at 03:50; Start 08/17/21 at 00:15 Heparin Sodium (Porcine) (Heparin Sodium) 5,000 unit Q8HRS SQ Last administered on 08/23/21at 05:39; Start 08/21/21 at 14:00; Stop 08/23/21 at 18:33; Status DC Fentanyl Citrate (Fentanyl 2ml Vial) 25 mcg PRN Q5MIN PRN IVP MILD PAIN 1-3; Start 08/21/21 at 06:00; Stop 08/22/21 at 05:59; Status DC Fentanyl Citrate (Fentanyl 2ml Vial) 50 mcg PRN Q5MIN PRN IVP MODERATE PAIN 4- 6; Start 08/21/21 at 06:00; Stop 08/22/21 at 05:59; Status DC Morphine Sulfate (Morphine Sulfate) 1 mg PRN Q10MIN PRN IVP SEVERE PAIN 7-10; Start 08/21/21 at 06:00; Stop 08/22/21 at 05:59; Status DC Ringer's Solution 1,000 ml @ 30 mls/hr Q24H IV ; Start 08/21/21 at 06:00; Stop 08/21/21 at 17:59; Status DC Hydromorphone HCl (Dilaudid) 0.5 mg PRN Q10MIN PRN IVP SEVERE PAIN 7-10, 2nd CHOICE; Start 08/21/21 at 06:00; Stop 08/22/21 at 05:59; Status DC Prochlorperazine Edisylate (Compazine) 5 mg PACU PRN PRN IVP NAUSEA, MRX1; Start 08/21/21 at 06:00; Stop 08/22/21 at 05:59; Status DC Haloperidol Lactate (Haldol Inj) 5 mg PRN Q8HRS PRN IVP AGITATION; Start 08/22/21 at 10:45; Stop 08/22/21 at 10:45; Status DC Haloperidol Lactate (Haldol Inj) 5 mg Q8HRS IVP Last administered on 08/23/21at 05:38; Start 08/22/21 at 11:00; Stop 08/24/21 at 13:52; Status DC Acetaminophen (Tylenol Supp) 650 mg Q4H ONCE OK Last administered on 08/22/21at 11:45; Start 08/22/21 at 11:30; Stop 08/22/21 at 11:31; Status DC Vancomycin HCl (Vanco Per Pharmacy) 1 each PRN DAILY PRN MC SEE COMMENTS Last administered on 08/23/21at 12:21; Start 08/22/21 at 11:30; Stop 08/24/21 at 09:14; Status DC Piperacillin Sod/ Tazobactam Sod (Zosyn Per Pharmacy) 1 each PRN DAILY PRN MC SEE COMMENTS; Start 08/22/21 at 11:30 Piperacillin Sod/ Tazobactam Sod 4.5 gm/Dextrose 100 ml @ 200 mls/hr Q6HRS IV Last administered on 09/10/21at 05:32; Start 08/22/21 at 12:00; Stop 09/10/21 at 08:13; Status DC Vancomycin HCl 2 gm/Sodium Chloride 500 ml @ 250 mls/hr 1X ONCE IV Last administered on 08/22/21at 12:34; Start 08/22/21 at 13:00; Stop 08/22/21 at 14:59; Status DC Acetaminophen (Tylenol Supp) 650 mg PRN Q4HRS PRN OK MILD PAIN / TEMP > 100.3'F Last administered on 08/22/21at 23:32; Start 08/22/21 at 11:45 Dextrose/Lactated Ringer's 1,000 ml @ 80 mls/hr [id number] IV Last administered on 08/31/21at 21:16; Start 08/22/21 at 12:45; Stop 09/01/21 at 12:01; Status DC Vancomycin HCl 1 gm/Sodium Chloride 250 ml @ 250 mls/hr Q8H IV Last administered on 08/24/21at 04:00; Start 08/22/21 at 20:00; Stop 08/24/21 at 09:14; Status DC Vancomycin HCl (Vancomycin Trough Level) 1 each 1X ONCE MC ; Start 08/23/21 at 11:30; Stop 08/24/21 at 09:14; Status DC Etomidate (Amidate) 20 mg STK-MED ONCE IV ; Start 08/23/21 at 11:25; Stop 08/23/21 at 11:25; Status DC Succinylcholine Chloride (Anectine) 200 mg STK-MED ONCE .ROUTE ; Start 08/23/21 at 11:25; Stop 08/23/21 at 11:26; Status DC Etomidate (Amidate) 20 mg 1X ONCE IV Last administered on 08/23/21at 12:21; Start 08/23/21 at 12:15; Stop 08/23/21 at 12:16; Status DC Succinylcholine Chloride (Anectine) 100 mg 1X ONCE IV Last administered on 08/23/21at 12:21; Start 08/23/21 at 12:15; Stop 08/23/21 at 12:16; Status DC Methylprednisolone Sodium Succinate (SOLU-Medrol 125MG VIAL) 125 mg Q8HRS IV Last administered on 09/01/21at 06:08; Start 08/23/21 at 14:00; Stop 09/01/21 at 12:01; Status DC Furosemide (Lasix) 40 mg 1X ONCE IVP Last administered on 08/23/21at 13:19; Start 08/23/21 at 12:45; Stop 08/23/21 at 12:56; Status DC Furosemide (Lasix) 40 mg DAILY IVP Last administered on 08/24/21at 07:24; Start 08/24/21 at 09:00; Stop 08/24/21 at 11:24; Status DC Digoxin (Lanoxin) 500 mcg 1X ONCE IV Last administered on 08/23/21at 15:16; Start 08/23/21 at 15:30; Stop 08/23/21 at 15:31; Status DC Amiodarone HCl 150 mg/Dextrose 103 ml @ 600 mls/hr 1X ONCE IV ; Start 08/23/21 at 16:00; Stop 08/23/21 at 16:10; Status DC Amiodarone HCl 450 mg/Dextrose 259 ml @ 33 mls/hr CONT PRN IV SEE I/O RECORD Last administered on 08/24/21at 01:22; Start 08/23/21 at 16:00; Stop 08/24/21 at 15:59; Status DC Iodixanol (Visipaque 320) 100 ml STK-MED ONCE .ROUTE ; Start 08/23/21 at 16:00; Stop 08/23/21 at 16:00; Status DC Lidocaine HCl (Lidocaine 1% 20ml Vial) 20 ml STK-MED ONCE .ROUTE ; Start 08/23/21 at 16:00; Stop 08/23/21 at 16:00; Status DC Heparin Sodium/ Sodium Chloride 1,500 ml @ As Directed STK-MED ONCE .ROUTE ; Start 08/23/21 at 16:00; Stop 08/23/21 at 16:00; Status DC Amiodarone HCl (Cordarone) 150 mg STK-MED ONCE .ROUTE ; Start 08/23/21 at 16:01; Stop 08/23/21 at 16:01; Status DC Amiodarone HCl (Cordarone) 150 mg 1X ONCE IVP Last administered on 08/23/21at 16:23; Start 08/23/21 at 16:15; Stop 08/23/21 at 16:16; Status DC Aspirin (Aspirin Chewable) 324 mg 1X ONCE PO Last administered on 08/23/21at 16:07; Start 08/23/21 at 16:15; Stop 08/23/21 at 16:16; Status DC Aspirin (Aspirin Chewable) 81 mg STK-MED ONCE .ROUTE ; Start 08/23/21 at 16:06; Stop 08/23/21 at 16:06; Status DC Heparin Sodium (Porcine) (Heparin Sodium) 10,000 unit STK-MED ONCE .ROUTE ; Start 08/23/21 at 16:23; Stop 08/23/21 at 16:24; Status DC Verapamil HCl (Verapamil) 5 mg STK-MED ONCE .ROUTE ; Start 08/23/21 at 16:23; Stop 08/23/21 at 16:24; Status DC Nitroglycerin (Nitroglycerin) 200 mcg STK-MED ONCE .ROUTE ; Start 08/23/21 at 16:23; Stop 08/23/21 at 16:24; Status DC Aspirin (Aspirin Chewable) 81 mg DAILYWBKFT PO Last administered on 09/09/21at 08:29; Start 08/24/21 at 08:00 Phenylephrine HCl 50 mg/Sodium Chloride 255 ml @ 14.351 mls/ hr CONT PRN IV PER PROTOCOL Last administered on 08/23/21at 16:42; Start 08/23/21 at 16:45 Phenylephrine HCl (PHENYLEPHRINE in 0.9% NACL PF) 1 mg STK-MED ONCE IV ; Start 08/23/21 at 16:41; Stop 08/23/21 at 16:41; Status DC Heparin Sodium (Porcine) (Heparin Sodium) 10,000 unit STK-MED ONCE .ROUTE ; Start 08/23/21 at 16:47; Stop 08/23/21 at 16:47; Status DC Norepinephrine Bitartrate 8 mg/ Dextrose 258 ml @ 18.15 mls/ hr CONT PRN IV PER PROTOCOL Last administered on 09/09/21at 07:02; Start 08/23/21 at 17:00 Iodixanol (Visipaque 320) 100 ml STK-MED ONCE .ROUTE ; Start 08/23/21 at 17:07; Stop 08/23/21 at 17:07; Status DC Nitroglycerin (Nitroglycerin) 200 mcg 1X ONCE IART Last administered on 08/23/21at 16:35; Start 08/23/21 at 17:15; Stop 08/23/21 at 17:16; Status DC Verapamil HCl (Verapamil) 2.5 mg 1X ONCE IART Last administered on 08/23/21at 16:35; Start 08/23/21 at 17:15; Stop 08/23/21 at 17:16; Status DC Heparin Sodium (Porcine) (Heparin Sodium) 2,500 unit 1X ONCE IART Last adminis tered on 08/23/21at 16:42; Start 08/23/21 at 17:15; Stop 08/23/21 at 17:16; Status DC Heparin Sodium/ Sodium Chloride (HEPARIN for ARTERIAL LINE FLUSH) 1,000 unit 1X ONCE IART Last administered on 08/23/21at 17:15; Start 08/23/21 at 17:15; Stop 08/23/21 at 17:16; Status DC Heparin Sodium/ Sodium Chloride (HEPARIN for ARTERIAL LINE FLUSH) 4,000 unit 1X ONCE IV Last administered on 08/23/21at 17:15; Start 08/23/21 at 17:15; Stop 08/23/21 at 17:16; Status DC Iodixanol (Visipaque 320) 100 ml 1X ONCE IART Last administered on 08/23/21at 17:15; Start 08/23/21 at 17:15; Stop 08/23/21 at 17:16; Status DC Heparin Sodium (Porcine) (Heparin Sodium) 5,000 unit 1X ONCE INT CAT Last administered on 08/23/21at 16:52; Start 08/23/21 at 17:15; Stop 08/23/21 at 17:16; Status DC Tirofiban/Sodium Chloride 250 ml @ As Directed STK-MED ONCE IV ; Start 08/23/21 at 17:18; Stop 08/23/21 at 17:18; Status DC Tirofiban/Sodium Chloride 250 ml @ 16.884 mls/ hr CONT PRN IV PER PROTOCOL Last administered on 08/23/21at 17:16; Start 08/23/21 at 17:45; Stop 08/24/21 at 11:44; Status DC Heparin Sodium (Porcine) (Heparin Sodium) 5,000 unit 1X ONCE IV Last a dministered on 08/23/21at 17:09; Start 08/23/21 at 18:30; Stop 08/23/21 at 18:31; Status DC Levetiracetam 100 ml @ 400 mls/hr Q12HR IV Last administered on 08/26/21at 11:29; Start 08/23/21 at 21:00; Stop 08/26/21 at 21:06; Status DC Heparin Sodium/ Dextrose 250 ml @ 11.256 mls/ hr CONT PRN IV PER PROTOCOL Last administered on 09/04/21at 05:21; Start 08/23/21 at 18:45; Stop 09/04/21 at 16:22; Status DC Heparin Sodium (Porcine) (Heparin Sodium) 2,350 unit PRN Q6HRS PRN IV FOR UFH LEVEL LESS THAN 0.2 Last administered on 08/27/21at 01:28; Start 08/23/21 at 18:45; Stop 09/04/21 at 16:22; Status DC Clopidogrel Bisulfate (Plavix) 600 mg 1X ONCE PO Last administered on 08/23/21at 22:06; Start 08/23/21 at 22:30; Stop 08/23/21 at 22:31; Status DC Potassium Chloride/Water 100 ml @ 100 mls/hr Q1H IV Last administered on 08/24/21at 02:00; Start 08/23/21 at 22:00; Stop 08/24/21 at 01:59; Status DC Daptomycin 520 mg/ Sodium Chloride 50 ml @ 100 mls/hr Q24H IV Last administered on 08/26/21at 12:57; Start 08/24/21 at 11:00; Stop 08/27/21 at 08:17; Status DC Linezolid (Zyvox) 600 mg BID PO Last administered on 09/01/21at 08:32; Start 08/24/21 at 10:00; Stop 09/01/21 at 09:30; Status DC Amiodarone HCl (Cordarone) 200 mg DAILY PO Last administered on 09/09/21at 08:29 ; Start 08/24/21 at 12:00 Furosemide (Lasix) 40 mg DAILY IVP Last administered on 09/04/21at 10:50; Start 08/25/21 at 09:00; Stop 09/05/21 at 17:31; Status DC Atorvastatin Calcium (Lipitor) 20 mg QHS PO Last administered on 08/26/21at 22:04; Start 08/24/21 at 21:00; Stop 08/27/21 at 13:59; Status DC Clopidogrel Bisulfate (Plavix) 75 mg 1X ONCE PO ; Start 08/24/21 at 11:30; Stop 08/24/21 at 11:31; Status UNV Clopidogrel Bisulfate (Plavix) 75 mg DAILYWBKFT PO Last administered on 09/07/21at 07:41; Start 08/24/21 at 12:00 Epinephrine HCl (EPINEPHrine SYRINGE) 1 mg STK-MED ONCE .ROUTE ; Start 08/23/21 at 17:00; Stop 08/24/21 at 12:21; Status DC Sodium Bicarbonate (Sodium Bicarb Adult 8.4% Syr) 50 meq STK-MED ONCE .ROUTE ; Start 08/23/21 at 17:00; Stop 08/24/21 at 12:21; Status DC Potassium Chloride/Water 100 ml @ 100 mls/hr Q1H IV Last administered on 08/25/21at 13:32; Start 08/25/21 at 10:00; Stop 08/25/21 at 12:59; Status DC Potassium Chloride/Water 100 ml @ 100 mls/hr Q1H IV Last administered on 08/26at 10:05; Start 08/26/21 at 09:00; Stop 08/26/21 at 11:59; Status DC Potassium Bicarbonate (Potassium Effervescent Tablet) 60 meq 1X ONCE PO Last administered on 08/26/21at 13:51; Start 08/26/21 at 10:30; Stop 08/26/21 at 10:31; Status DC Levetiracetam 500 mg/Dextrose 105 ml @ 100 mls/hr Q12HR IV Last administered on 08/28/21at 09:00; Start 08/26/21 at 21:30; Stop 08/28/21 at 12:27; Status DC Potassium Bicarbonate (Potassium Effervescent Tablet) 20 meq TID PO Last administered on 09/04/21at 21:00; Start 08/27/21 at 09:30; Stop 09/05/21 at 16:54; Status DC Losartan Potassium (Cozaar) 25 mg DAILY PO Last administered on 09/04/21at 10:08; Start 08/27/21 at 15:00; Stop 09/05/21 at 17:07; Status DC Spironolactone (Aldactone) 25 mg DAILY PO Last administered on 09/04/21at 13:00; Start 08/27/21 at 15:00; Stop 09/05/21 at 17:08; Status DC Atorvastatin Calcium (Lipitor) 40 mg QHS PO Last administered on 09/09/21at 20:50; Start 08/27/21 at 21:00 Atropine Sulfate (ATROPINE 1mg SYRINGE) 1 mg STK-MED ONCE .ROUTE ; Start 08/23/21 at 12:32; Stop 08/27/21 at 14:26; Status DC Levetiracetam 100 ml @ 100 mls/hr Q12HR IV ; Start 08/28/21 at 21:00; Status Cancel Levetiracetam (Keppra Oral Soln) 500 mg BID PEG Last administered on 09/09/21at 20:50; Start 08/28/21 at 21:00 Heparin Sodium (Porcine) (Heparin Sodium) 10,000 unit STK-MED ONCE .ROUTE ; Start 08/30/21 at 12:56; Stop 08/30/21 at 12:56; Status DC Verapamil HCl (Verapamil) 5 mg STK-MED ONCE .ROUTE ; Start 08/30/21 at 12:56; Stop 08/30/21 at 12:56; Status DC Nitroglycerin (Nitroglycerin) 200 mcg STK-MED ONCE .ROUTE ; Start 08/30/21 at 12:56; Stop 08/30/21 at 12:56; Status DC Iodixanol (Visipaque 320) 100 ml STK-MED ONCE .ROUTE ; Start 08/30/21 at 12:57; Stop 08/30/21 at 12:57; Status DC Lidocaine HCl (Xylocaine-Mpf 1% 2ml Vial) 2 ml STK-MED ONCE .ROUTE ; Start 08/30/21 at 12:57; Stop 08/30/21 at 12:57; Status DC Heparin Sodium/ Sodium Chloride 1,000 ml @ As Directed STK-MED ONCE .ROUTE ; Start 08/30/21 at 12:57; Stop 08/30/21 at 12:57; Status DC Nitroglycerin (Nitroglycerin) 200 mcg 1X ONCE IART Last administered on 08/30/21at 13:34; Start 08/30/21 at 13:00; Stop 08/30/21 at 13:04; Status DC Verapamil HCl (Verapamil) 2.5 mg 1X ONCE IART Last administered on 08/30/21at 13:34; Start 08/30/21 at 13:00; Stop 08/30/21 at 13:04; Status DC Heparin Sodium (Porcine) (Heparin Sodium) 2,500 unit 1X ONCE IART Last administered on 08/30/21at 13:34; Start 08/30/21 at 13:00; Stop 08/30/21 at 13:04; Status DC Heparin Sodium/ Sodium Chloride (HEPARIN for ARTERIAL LINE FLUSH) 1,000 unit 1X ONCE IART Last administered on 08/30/21at 13:00; Start 08/30/21 at 13:00; Stop 08/30/21 at 13:04; Status DC Heparin Sodium/ Sodium Chloride (HEPARIN for ARTERIAL LINE FLUSH) 1,000 unit 1X ONCE IART Last administered on 08/30/21at 13:00; Start 08/30/21 at 13:00; Stop 08/30/21 at 13:04; Status DC Iodixanol (Visipaque 320) 100 ml 1X ONCE IART Last administered on 08/30/21at 13:55; Start 08/30/21 at 13:00; Stop 08/30/21 at 13:04; Status DC Lidocaine HCl (Xylocaine-Mpf 1% 2ml Vial) 2 ml 1X ONCE INJ Last administered on 08/30/21at 13:33; Start 08/30/21 at 13:00; Stop 08/30/21 at 13:04; Status DC Info (CONTRAST GIVEN -- Rx MONITORING) 1 each PRN DAILY PRN MC SEE COMMENTS; Start 08/30/21 at 13:15; Stop 09/01/21 at 13:14; Status DC Alteplase, Recombinant (Cathflo For Central Catheter Clearance) 1 mg 1X ONCE INT CAT Last administered on 08/31/21at 12:11; Start 08/31/21 at 10:45; Stop 08/31/21 at 10:46; Status DC Methylprednisolone Sodium Succinate (SOLU-Medrol 125MG VIAL) 60 mg Q8HRS IV Last administered on 09/04/21at 06:02; Start 09/01/21 at 14:00; Stop 09/04/21 at 08:19; Status DC Methylprednisolone Sodium Succinate (SOLU-Medrol 40MG VIAL) 40 mg Q8HRS IV Last administered on 09/06/21at 05:37; Start 09/04/21 at 14:00; Stop 09/06/21 at 10 :03; Status DC Fentanyl Citrate (Fentanyl 2ml Vial) 25 mcg PRN Q5MIN PRN IVP MILD PAIN 1-3; Start 09/05/21 at 06:00; Stop 09/06/21 at 05:59; Status DC Fentanyl Citrate (Fentanyl 2ml Vial) 50 mcg PRN Q5MIN PRN IVP MODERATE PAIN 4- 6; Start 09/05/21 at 06:00; Stop 09/06/21 at 05:59; Status DC Morphine Sulfate (Morphine Sulfate) 1 mg PRN Q10MIN PRN IVP SEVERE PAIN 7-10; Start 09/05/21 at 06:00; Stop 09/06/21 at 05:59; Status DC Ringer's Solution 1,000 ml @ 30 mls/hr Q24H IV ; Start 09/05/21 at 06:00; Stop 09/05/21 at 17:59; Status DC Hydromorphone HCl (Dilaudid) 0.5 mg PRN Q10MIN PRN IVP SEVERE PAIN 7-10, 2nd CHOICE; Start 09/05/21 at 06:00; Stop 09/06/21 at 05:59; Status DC Prochlorperazine Edisylate (Compazine) 5 mg PACU PRN PRN IVP NAUSEA, MRX1; Start 09/05/21 at 06:00; Stop 09/06/21 at 05:59; Status DC Metoprolol Tartrate (Lopressor) 25 mg BID PO Last administered on 09/04/21at 20:59; Start 09/04/21 at 21:00; Stop 09/05/21 at 17:31; Status DC Norepinephrine Bitartrate 8 mg/ Dextrose 258 ml @ 0 mls/hr CONT IV ; Start 09/05/21 at 09:30; Status UNV Sodium Chloride 500 ml @ 500 mls/hr 1X ONCE IV Last administered on 09/05/21at 08:00; Start 09/05/21 at 08:00; Stop 09/05/21 at 12:11; Status DC Heparin Sodium/ Dextrose 250 ml @ 11.484 mls/ hr CONT PRN IV PER PROTOCOL Last administered on 09/05/21at 15:53; Start 09/05/21 at 14:45 Heparin Sodium (Porcine) (Heparin Sodium) 2,400 unit PRN Q6HRS PRN IV FOR UFH LEVEL LESS THAN 0.2; Start 09/05/21 at 14:45 Linezolid/Dextrose 300 ml @ 300 mls/hr Q12HR IV Last administered on 09/10/21at 08:08; Start 09/05/21 at 21:00 Vancomycin HCl (Vancomycin Oral Solution) 125 mg [id number] PO ; Start 09/05/21 at 17:30; Stop 09/06/21 at 14:59; Status DC Epinephrine HCl (EPINEPHrine SYRINGE) 1 mg STK-MED ONCE .ROUTE ; Start 09/06/21 at 07:11; Stop 09/06/21 at 07:12; Status DC Digoxin (Lanoxin) 250 mcg 1X ONCE IV Last administered on 09/06/21at 08:39; Start 09/06/21 at 08:30; Stop 09/06/21 at 08:31; Status DC Methylprednisolone Sodium Succinate (SOLU-Medrol 40MG VIAL) 40 mg Q12H IV Last administered on 09/10/21at 08:07; Start 09/06/21 at 21:00 Epinephrine HCl (EPINEPHrine SYRINGE) 1 mg STK-MED ONCE .ROUTE ; Start 09/05/21 at 17:00; Stop 09/07/21 at 08:29; Status DC Meropenem 500 mg/ Sodium Chloride 50 ml @ 100 mls/hr Q6HRS IV ; Start 09/10/21 at 12:00 Daptomycin 550 mg/ Sodium Chloride 50 ml @ 100 mls/hr Q24H IV ; Start 09/10/21 at 09:00 Vitals/I & O Vital Sign - Last 24 Hours 09/09/21 09/09/21 09/09/21 09/09/21 10:00 11:00 11:17 11:32 Pulse 81 79 Resp 22 22 B/P (MAP) 165/87 155/90 166/102 118/73 Pulse Ox 100 100 O2 Delivery Ventilator Ventilator 09/09/21 09/09/21 09/09/21 09/09/21 11:52 12:00 12:15 13:00 Temp 98.5 98.5 Pulse 89 84 Resp 22 22 B/P (MAP) 167/99 145/81 158/81 Pulse Ox 100 100 99 O2 Delivery Ventilator Ventilator Ventilator 09/09/21 09/09/21 09/09/21 09/09/21 13:41 14:11 14:55 15:10 Pulse 70 91 Resp B/P (MAP) 157/93 173/91 158/98 Pulse Ox 100 99 97 O2 Delivery Ventilator Ventilator Ventilator 09/09/21 09/09/21 09/09/21 09/09/21 15:41 16:48 17:00 17:29 Temp 98.2 98.2 Pulse 80 82 Resp B/P (MAP) 157/89 138/89 Pulse Ox 100 98 97 98 O2 Delivery Ventilator Ventilator Ventilator Ventilator 09/09/21 09/09/21 09/09/21 09/09/21 17:37 17:50 18:00 18:20 Pulse 62 Resp B/P (MAP) 78/50 85/58 88/53 78/51 Pulse Ox 100 O2 Delivery Ventilator 09/09/21 09/09/21 09/09/21 09/09/21 18:33 19:00 20:00 20:00 Temp 97.7 97.7 Pulse 56 62 Resp B/P (MAP) 100/57 104/63 114/69 Pulse Ox 99 99 O2 Delivery Ventilator Ventilator Mechanical Ventilator 09/09/21 09/09/21 09/09/21 09/09/21 21:00 21:13 21:45 22:00 Pulse 67 66 Resp B/P (MAP) 105/53 170/75 159/89 Pulse Ox 99 100 100 O2 Delivery Ventilator Ventilator Ventilator 09/09/21 09/09/21 09/10/21 09/10/21 23:00 23:39 00:01 00:30 Temp 98.7 98.7 Pulse 84 79 Resp B/P (MAP) 162/93 169/89 175/101 Pulse Ox 100 100 100 O2 Delivery Ventilator Ventilator Ventilator 09/10/21 09/10/21 09/10/21 09/10/21 00:45 01:00 01:45 02:00 Pulse 86 62 Resp B/P (MAP) 159/104 136/81 86/57 100/61 Pulse Ox 99 91 91 O2 Delivery Ventilator Ventilator 09/10/21 09/10/21 09/10/2109/10/22 03:00 04:00 04:15 04:45 Temp 98.7 98.7 Pulse 63 67 Resp B/P (MAP) 108/70 106/65 185/91 Pulse Ox 95 93 94 95 O2 Delivery Ventilator Ventilator Ventilator 09/10/21 09/10/21 09/10/21 09/10/21 05:00 05:15 06:00 07:00 Temp 99.0 99.0 Pulse 99 107 110 Resp B/P (MAP) 150/84 149/89 133/82 Pulse Ox 97 88 98 95 O2 Delivery Ventilator Ventilator Ventilator 09/10/21 09/10/21 09/10/21 09/10/21 08:00 08:00 09:00 09:06 Temp 100.9 100.9 Pulse 110 101 Resp B/P (MAP) 116/68 69/49 Pulse Ox 93 94 94 O2 Delivery Ventilator Mechanical Ventilator Ventilator Ventilator 09/10/21 09:15 B/P (MAP) 76/50 Intake and Output 09/09/21 09/09/21 09/10/21 15:00 23:00 07:00 Intake Total 650 ml 1404 ml 1265 ml Output Total 1250 ml 1025 ml 825 ml Balance -600 ml 379 ml [address] head 09/08/2021 4:18 PM FINDINGS: No focal parenchymal lesion or hemorrhage is identified. There is no midline shift or sulcal effacement. Moderate patchy evidence in periventricular white matter. No acute vascular territory infarction is identified. Syed-white distinction is preserved. The ventricular system is within normal limits without compression hydrocephalus. The basal cisterns are well maintained. Mild mucosal thickening in the maxillary sinuses and sphenoid sinuses bilaterally. No acute fractures. IMPRESSION: Moderate small vessel ischemic change, technically age indeterminate without r ecent prior imaging. Justicifation of Admission Dx: Justifications for Admission: Justification of Admission Dx: N/A DEREK TELLEZ MD Sep 10, 2021 09:54
[2021-09-10] MEDS: DAPTOmycin (GENERIC) IVPB 550 MG in IV NORMAL SALINE 50ML 50 ML IV SCH (09:56)
--- NOTE | 2021-09-10 10:15 | PDOC ---
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/10/21 1015: CARDIO Progress Notes Date and Time Date of Service 09/10/21 Time of Evaluation 1015 Subjective Subjective: Other (intubated ) Vitals Vitals Vital Signs Date Time Temp Pulse Resp B/P (MAP) Pulse Ox O2 Delivery O2 Flow Rate FiO2 09/10/21 10:00 98 22 168/95 96 Ventilator 09/10/21 08:00 100.9 100.9 Weight Weight [ ] Input and Output Intake and Output Intake and Output 09/10/21 07:00 Intake Total 3319 ml Output Total 3100 ml Balance 219 ml IV Total 1661 ml Tube Feeding 1383 ml Other 275 ml Output Urine Total 3100 ml Laboratory Labs Laboratory Tests Test 09/09/21 17:18 09/10/21 05:20 09/10/21 05:30 Glucose (Fingerstick) 142 mg/dL (70-99) White Blood Count 41.9 x10^3/uL (4.0-11.0) Red Blood Count 3.06 x10^6/uL (4.30-5.70) Hemoglobin 8.7 g/dL (13.0-17.5) Hematocrit 27.3 % (39.0-53.0) Mean Corpuscular Volume 89 fL (79-100) Mean Corpuscular Hemoglobin 29 pg (25-35) Mean Corpuscular Hemoglobin Concent 32 g/dL (31-37) Red Cell Distribution Width 16.0 % (11.5-14.5) Platelet Count 270 x10^3/uL (140-400) Sodium Level 139 mmol/L (136-145) Potassium Level 4.0 mmol/L (3.5-5.1) Chloride Level 101 mmol/L (98-107) Carbon Dioxide Level 28 mmol/L (21-32) Anion Gap 10 (6-14) Blood Urea Nitrogen 21 mg/dL (8-26) Creatinine 0.6 mg/dL (0.7-1.3) Estimated GFR (Cockcroft-Gault) 136.1 Glucose Level 125 mg/dL (70-99) Calcium Level 7.9 mg/dL (8.5-10.1) Magnesium Level 1.9 mg/dL (1.8-2.4) Microbiology Micro Microbiology 09/05/21 Urine Culture - Final, Complete 09/05/21 Blood Culture - Preliminary, Resulted NO GROWTH AFTER 4 DAYS 08/23/21 Respiratory Culture Gram Stain - Final, Complete 08/23/21 Respiratory Culture - Final, Complete Physical Exam HEENT: Other (supple ) Chest: Symmetric LUNGS: Other (MV) Heart: RRR (SR ) Abdomen: Other (soft ) Extremities: Other (no edema. Eschar to left foot, second toe) Neurology: other (sedated ) Assessment Assessment 1. S/P cardiac arrest; multifactorial. Noted with VT shock x1. approximately <3 min to ROSC. 2. Acute on chronic respiratory failure with COVID PNA, ARDS. unable to be weaned from vent. Trach planned. 3. CAD, inferior STEMI with embolic disease. Repeat LHC showed recanalized RCA with brisk blood flow. Residual proximal 70% RCA stenosis with significant ectasia of the RCA 4. Cardiogenic shock; IABP removed. 5. Acute on chronic systolic CHF, ICM: EF at 35-40%. 6. AFIB RVR: presently SR. 7. Bradyarrhythmia; episode of bradycardia (lowest 31) with brief loss of pulse 09/05 requiring brief CPR and recurrent bradycardia 09/06 with associated hypotension. No absence of pulse. Echo without significant changes. Trop without significant elevation, trending downward. No further episodes over weekend. 7. Hyperlipidemia; statin 8. Black distal phalanx to left 2nd toe: possibly r/t to covid-19. no significnat PAD per duplex 9. Leukocytosis, ? sepsis. WBC increased. trach on hold. Remains of pressor support. as per ID Recommendations Avoid AV clara blocking agents Amiodarone for rhythm maintenance Continue ASA/statin. Plavix on hold for trach Supportive care Justicifation of Admission Dx: Justifications for Admission: Justification of Admission Dx: N/A TEDDY ANGLIN MD 09/10/21 1710: CARDIO Progress Notes Plan Plan Patient seen and examined. Agree with above nurse practitioner note. Discussed with family at bedside. Stable from a cardiac standpoint. Continue to down titrate Levophed as blood pressure allows. Await resolution of elevated white blood cell count which is likely reactive. Cannot rule out secondary to consolidative process in the lung although patient has been on antibiotics for several weeks. Supportive care. TETO DIAZ APRN Sep 10, 2021 10:15 TEDDY ANGLIN MD Sep 10, 2021 17:10
--- NOTE | 2021-09-10 10:34 | RAD ---
CT CHEST_ABDOMEN_ AND PELVIS WITHOUT CONTRAST History: Leukocytosis. Comparison: CTA chest 07/29/2021. Technique: CT of the chest, abdomen and pelvis with intravenous contrast. Findings: Chest: Devices: Endotracheal tube terminates in the upper thoracic trachea. Right upper extremity PICC termi nates at the cavoatrial junction. Gastric tube terminates within the stomach. Pulmonary arteries: Unremarkable. Aorta and great vessels: No aneurysm of the aortic arch or thoracic aorta is seen. Mild atherosclerot ic calcification. Heart: The heart is normal in size. There is no pericardial effusion. Moderate to heavy coronary milad ry calcification. Thyroid: No significant abnormalities. Mediastinum and akua: No mediastinal masses or adenopathy is seen. Esophagus: The visualized esophagus is normal. Airways, Lungs, Pleura: Moderate emphysematous change and mild subpleural fibrotic change. Left lower lobe airspace consolidation. Diffuse bilateral groundglass opacity and prominence of the interlobula r septa Soft tissue and osseous: No acute findings. Abdomen/Pelvis: General abdomen: No ascites. No free air. Liver : Normal in size and attenuation. No masses seen. Gallbladder/Biliary Tree: Distended gallbladder without stones or wall thickening. No intrahepatic or extrahepatic biliary ductal dilatation. Pancreas: Normal. Spleen: Normal in size and attenuation. Adrenal glands: Normal. Kidneys: Bilateral perinephric fat stranding. No nephrolithiasis or hydronephrosis. No renal masses i dentified. Gastrointestinal: Stomach is decompressed by a gastric tube. Unremarkable small bowel. Normal appendi x. No colonic wall thickening or pericolonic inflammatory changes. Indwelling rectal tube. Lymph nodes: No lymphadenopathy. Vessels: Fusiform infrarenal aortic aneurysm measuring 3.4 cm diameter by approximately 4 cm length. Pelvic Organs: Unremarkable reproductive organs. No pelvic masses. Bladder is decompressed by Berumen c atheter. Soft tissues: Minimal anasarca. Bones: No acute or aggressive lesions. Impression: 1. Left lower lobe airspace consolidation superimposed on diffuse groundglass opacity with emphysema tous and fibrotic change. Findings suspected to represent multifocal infectious process. 2. Infrarenal aortic aneurysm measuring 3.4 cm diameter. 3. Distended gallbladder without wall thickening. Correlate for right upper quadrant symptoms, consi mega acalculous cholecystitis in the setting of prolonged illness. ------ Exposure: One or more of the following individualized dose reduction techniques were utilized for thi s examination: 1. Automated exposure control 2. Adjustment of the mA and/or kV according to patient size 3. Use of iterative reconstruction technique. Electronically signed by: Raphael Gallagher MD (09/10/2021 10:32 AM) [id number]
[2021-09-10] MEDS: fentaNYL HIGH DOSE PCA 55 ML IV PRN (10:43)
[2021-09-10] MEDS: ASPIRIN CHEWABLE 81 MG TABLET. PO SCH (11:14)
[2021-09-10] MEDS: levETIRAcetam 500 MG/5 ML ORAL SOLUTION. PEG SCH ×2 (11:14→20:46)
[2021-09-10] MEDS: AMIODARONE HCL 200 MG TABLET. PO SCH (11:15)
[2021-09-10] MEDS: MEROPENEM 500 MG in IV NORMAL SALINE 50ML 50 ML IV SCH ×3 (11:49→23:21)
[2021-09-10] MEDS: NOREPINEPHRINE VIAL 8 MG in IV DEXTROSE 5% 250 ML IV PRN ×2 (11:49→13:49)
--- NOTE | 2021-09-10 12:22 | PDOC ---
Infectious Disease Note Subjective Subjective Patient Intubated ROS ROS no n/v black stool Vital Sign Vital Signs Vital Signs Date Time Temp Pulse Resp B/P (MAP) Pulse Ox O2 Delivery O2 Flow Rate FiO2 09/10/21 12:03 96 Ventilator 09/10/21 12:00 97.6 70 22 82/54 97.6 Physical Exam PHYSICAL EXAM GENERAL: Intubated HEENT: No conjunctival petechia. ETT present, OGT present LUNGS: Coarse breath sounds in the bases, otherwise clear. HEART: S1, S2, irregular. I could not appreciate any murmurs. ABDOMEN: Soft, nontender, nondistended. Bowel sounds present. GENITOURINARY: Berumen in place. EXTREMITIES: Present no cyanosis. Right groin catheter removed, Right upper extremity PICC line placed on 08/23/2021.Lt 2nd digit black DERMATOLOGIC: Warm, dry, no generalized rash. NEUROLOGIC: Unable to assess. Labs Lab Laboratory Tests Test 09/09/21 17:18 09/10/21 05:20 09/10/21 05:30 Glucose (Fingerstick) 142 mg/dL (70-99) White Blood Count 41.9 x10^3/uL (4.0-11.0) Red Blood Count 3.06 x10^6/uL (4.30-5.70) Hemoglobin 8.7 g/dL (13.0-17.5) Hematocrit 27.3 % (39.0-53.0) Mean Corpuscular Volume 89 fL (79-100) Mean Corpuscular Hemoglobin 29 pg (25-35) Mean Corpuscular Hemoglobin Concent 32 g/dL (31-37) Red Cell Distribution Width 16.0 % (11.5-14.5) Platelet Count 270 x10^3/uL (140-400) Sodium Level 139 mmol/L (136-145) Potassium Level 4.0 mmol/L (3.5-5.1) Chloride Level 101 mmol/L (98-107) Carbon Dioxide Level 28 mmol/L (21-32) Anion Gap 10 (6-14) Blood Urea Nitrogen 21 mg/dL (8-26) Creatinine 0.6 mg/dL (0.7-1.3) Estimated GFR (Cockcroft-Gault) 136.1 Glucose Level 125 mg/dL (70-99) Calcium Level 7.9 mg/dL (8.5-10.1) Magnesium Level 1.9 mg/dL (1.8-2.4) Micro Microbiology 08/24/21 Blood Culture - Preliminary, Resulted NO GROWTH AFTER 2 DAYS 08/23/21 Respiratory Culture Gram Stain - Final, Complete 08/23/21 Respiratory Culture - Final, Complete Objective Assessment Fever multifactorial s/p code ,possible aspiration pattern improved 1. Gram-positive bacteremia,MRSE 08/22/2021.Central line was pulled out 2. Acute hypoxic respiratory failure. 3. COVID-19 pneumonia. 4. Chronic obstructive pulmonary disease with possible underlying pulmonary fibrosis, aspiration pneumonia. 5. Status post code atrial fibrillation with rapid ventricular response, ventricular fibrillation, status post defibrillation, epinephrine, bicarbonate drip, status post cardiac catheterization. IABP placement. 6. Severe protein-calorie malnutrition. 7. Abnormal liver function tests, likely shock liver. 8. Anemia. 9. Encephalopathy likely anoxic 10.Electrolyte abn 11.Leucocytosis improving Plan Plan of Care Cont .zyvox , meropenem, martha, NGT clogged, removed,OGT placed Trach planned for tomorrow C. 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 d/w BERNARD LOWERY MD Sep 10, 2021 12:22
[2021-09-10 12:35] LABS: FIO2 ABG 40% AC 22 400 5
--- NOTE | 2021-09-10 12:39 | PDOC ---
Date of Service: DATE: 09/10/21 TIME: 12:32 Objective: Objective: D/w nurse - last dose of Plavix Fri 09/07, continued on ASA, remains on pressors. Trach held today for elevated WBC. Dark stool in rectal tube - d/w Dr. Barreto. Vital Signs: Vital Signs Date Time Temp Pulse Resp B/P (MAP) Pulse Ox O2 Delivery O2 Flow Rate FiO2 09/10/21 12:03 96 Ventilator 09/10/21 12:00 97.6 70 22 82/54 97.6 Labs: Laboratory Tests Test 09/09/21 17:18 09/10/21 05:20 09/10/21 05:30 Glucose (Fingerstick) 142 mg/dL White Blood Count 41.9 x10^3/uL Red Blood Count 3.06 x10^6/uL Hemoglobin 8.7 g/dL Hematocrit 27.3 % Mean Corpuscular Volume 89 fL Mean Corpuscular Hemoglobin 29 pg Mean Corpuscular Hemoglobin Concent 32 g/dL Red Cell Distribution Width 16.0 % Platelet Count 270 x10^3/uL Sodium Level 139 mmol/L Potassium Level 4.0 mmol/L Chloride Level 101 mmol/L Carbon Dioxide Level 28 mmol/L Anion Gap 10 Blood Urea Nitrogen 21 mg/dL Creatinine 0.6 mg/dL Estimated GFR (Cockcroft-Gault) 136.1 Glucose Level 125 mg/dL Calcium Level 7.9 mg/dL Magnesium Level 1.9 mg/dL PE: GEN: intubated LUNGS: vent HEART: RRR ABD: soft, rectal tube w/ dark black-greenish watery contents NEURO/PSYCH: sedated A/P: COVID (recovered)/resp failure, s/p cardiac arrest/CAD, anoxic encephalopathy (very poor prognosis per neuro)- Plavix held Leukocytosis - worse Anemia - Hgb stable, BUN normal Epistaxis - last week/resolved Dark stools -- Can change to PPI from H2 heather, will review all w/ Dr. Brock. Justicifation of Admission Dx: Justifications for Admission: Justification of Admission Dx: N/A GEORGIA GUILLEN Sep 10, 2021 12:38
--- NOTE | 2021-09-10 16:16 | NUR ---
SS following up with discharge planning. SS reviewed pt chart and discussed with pt RN. Pt is currently on the vent at 40%. Trach currently on hold due to medical instability. COVID19 recovered. WBC doubled. Pt on IV Meropenem, IV Daptomycin, and IV Zyvox. CT today. Pt on Levophed, Versed, Fentanyl, and Propofol. Not stable. SS will continue to follow for discharge planning.
[2021-09-10] MEDS: PANTOPRAZOLE IV PUSH 40 MG VIAL. IVP SCH (16:50)
[2021-09-10] MEDS: ATORVASTATIN CALCIUM 40 MG TABLET. PO SCH (20:46)
[2021-09-11] VITALS (26 sets, daily range): BP systolic 98–152; BP diastolic 58–78
[2021-09-11] MEDS: MIDAZOLAM 100mg/100ml NS BAG 100 ML IV PRN ×2 (01:57→13:41)
[2021-09-11] MEDS: NOREPINEPHRINE VIAL 8 MG in IV DEXTROSE 5% 250 ML IV PRN ×2 (01:57→13:16)
[2021-09-11] MEDS: PROPOFOL 100 ML IV PRN ×5 (03:59→22:33)
[2021-09-11] MEDS: MEROPENEM 500 MG in IV NORMAL SALINE 50ML 50 ML IV SCH ×4 (05:31→23:55)
[2021-09-11 06:28] LABS: BASO % 0 % (0-3); EOS # 0.1 x10^3/uL (0.0-0.7); EOS % 0 % (0-3); HEMATOCRIT 21.3 % (39.0-53.0); HEMOGLOBIN 7.2 g/dL (13.0-17.5); LYMPH # 0.8 x10^3/uL (1.0-4.8); LYMPH % 3 % (24-48); MEAN CORPUSCULAR HEMOGLOBIN 29 pg (25-35); MEAN CORPUSCULAR HGB CONC 34 g/dL (31-37); MEAN CORPUSCULAR VOLUME 87 fL (79-100); MONO # 0.8 x10^3/uL (0.0-1.1); MONO % 3 % (0-9); NEUT # 26.6 x10^3/uL (1.8-7.7); NEUT % 94 % (31-73); PLATELET COUNT 214 x10^3/uL (140-400); RED BLOOD COUNT 2.46 x10^6/uL (4.30-5.70); RED CELL DISTRIBUTION WIDTH 16.1 % (11.5-14.5); WHITE BLOOD COUNT 28.3 x10^3/uL (4.0-11.0)
[2021-09-11 06:40] LABS: ALBUMIN/GLOBULIN RATIO 0.6 (1.0-1.7); CALCIUM 7.9 mg/dL (8.5-10.1); CREATININE 0.6 mg/dL (0.7-1.3); GFR 136.1; POTASSIUM 3.3 mmol/L (3.5-5.1); TOTAL BILIRUBIN 0.4 mg/dL (0.2-1.0); TOTAL PROTEIN 5.2 g/dL (6.4-8.2)
[2021-09-11] MEDS ORDERED: POTASSIUM BICARB 20 MEQ EFFERVESCENT TABLET. PEG ONE (07:15)
[2021-09-11] MEDS: CLOPIDOGREL BISULFATE 75 MG TABLET PO SCH (07:17)
[2021-09-11] MEDS: levETIRAcetam 500 MG/5 ML ORAL SOLUTION. PEG SCH ×2 (07:35→21:01)
[2021-09-11] MEDS: AMIODARONE HCL 200 MG TABLET. PO SCH (07:36)
[2021-09-11] MEDS: PANTOPRAZOLE IV PUSH 40 MG VIAL. IVP SCH ×2 (07:36→16:49)
[2021-09-11] MEDS: ASPIRIN CHEWABLE 81 MG TABLET. PO SCH (07:36)
--- NOTE | 2021-09-11 08:30 | PDOC ---
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[employer] 09/11/21 0829: CARDIO Progress Notes Date and Time Date of Service 09/11/21 Time of Evaluation 1110 Subjective Subjective: Other (intubated ) Vitals Vitals Vital Signs Date Time Temp Pulse Resp B/P (MAP) Pulse Ox O2 Delivery O2 Flow Rate FiO2 09/11/21 07:36 81 101/60 09/11/21 07:00 22 100 Ventilator 09/11/21 04:00 97.6 97.6 Weight Weight [ ] Input and Output Intake and Output Intake and Output 09/11/21 06:59 Intake Total 3482 ml Output Total 2550 ml Balance 932 ml IV Total 2017 ml Tube Feeding 1215 ml Other 250 ml Output Urine Total 2550 ml Gastric Drainage Total 0 ml Laboratory Labs Laboratory Tests Test 09/10/21 09:00 09/11/21 06:00 O2 Saturation 92 % (92-99) Arterial Blood pH 7.44 (7.35-7.45) Arterial Blood pCO2 at Patient Temp 42 mmHg (35-46) Arterial Blood pO2 at Patient Temp 64 mmHg (65-108) Arterial Blood HCO3 28 mmol/L (21-28) Arterial Blood Base Excess 4 mmol/L (-3-3) FiO2 40% ac 22 400 5 White Blood Count 28.3 x10^3/uL (4.0-11.0) Red Blood Count 2.46 x10^6/uL (4.30-5.70) Hemoglobin 7.2 g/dL (13.0-17.5) Hematocrit 21.3 % (39.0-53.0) Mean Corpuscular Volume 87 fL (79-100) Mean Corpuscular Hemoglobin 29 pg (25-35) Mean Corpuscular Hemoglobin Concent 34 g/dL (31-37) Red Cell Distribution Width 16.1 % (11.5-14.5) Platelet Count 214 x10^3/uL (140-400) Neutrophils (%) (Auto) 94 % (31-73) Lymphocytes (%) (Auto) 3 % (24-48) Monocytes (%) (Auto) 3 % (0-9) Eosinophils (%) (Auto) 0 % (0-3) Basophils (%) (Auto) 0 % (0-3) Neutrophils # (Auto) 26.6 x10^3/uL (1.8-7.7) Lymphocytes # (Auto) 0.8 x10^3/uL (1.0-4.8) Monocytes # (Auto) 0.8 x10^3/uL (0.0-1.1) Eosinophils # (Auto) 0.1 x10^3/uL (0.0-0.7) Basophils # (Auto) 0.0 x10^3/uL (0.0-0.2) Sodium Level 137 mmol/L (136-145) Potassium Level 3.3 mmol/L (3.5-5.1) Chloride Level 102 mmol/L (98-107) Carbon Dioxide Level 33 mmol/L (21-32) Anion Gap 2 (6-14) Blood Urea Nitrogen 17 mg/dL (8-26) Creatinine 0.6 mg/dL (0.7-1.3) Estimated GFR (Cockcroft-Gault) 136.1 BUN/Creatinine Ratio 28 (6-20) Glucose Level 149 mg/dL (70-99) Calcium Level 7.9 mg/dL (8.5-10.1) Total Bilirubin 0.4 mg/dL (0.2-1.0) Aspartate Amino Transf (AST/SGOT) 39 U/L (15-37) Alanine Aminotransferase (ALT/SGPT) 40 U/L (16-63) Alkaline Phosphatase 105 U/L (46-116) Total Protein 5.2 g/dL (6.4-8.2) Albumin 2.0 g/dL (3.4-5.0) Albumin/Globulin Ratio 0.6 (1.0-1.7) Microbiology Micro Microbiology 09/05/21 Urine Culture - Final, Complete 09/05/21 Blood Culture - Final, Complete NO GROWTH AFTER 5 DAYS 08/23/21 Respiratory Culture Gram Stain - Final, Complete 08/23/21 Respiratory Culture - Final, Complete Physical Exam HEENT: Other (supple ) Chest: Symmetric LUNGS: Other (MV) Heart: RRR (SR ) Abdomen: Other (soft ) Extremities: Other (no edema. Eschar to left foot, second toe) Neurology: other (sedated ) Assessment Assessment 1. S/P cardiac arrest; multifactorial. Noted with VT shock x1. approximately <3 min to ROSC. 2. Acute on chronic respiratory failure with COVID PNA, ARDS. unable to be weaned from vent. Trach planned on . 3. CAD, inferior STEMI with embolic disease. Repeat LHC showed recanalized RCA with brisk blood flow. Residual proximal 70% RCA stenosis with significant e ctasia of the RCA 4. Cardiogenic shock; IABP removed. 5. Acute on chronic systolic CHF, ICM: EF at 35-40%. 6. AFIB RVR: presently SR. 7. Bradyarrhythmia; episode of bradycardia (lowest 31) with brief loss of pulse 09/05 requiring brief CPR and recurrent bradycardia 09/06 with associated hypotension. No absence of pulse. Echo without significant changes. Trop without significant elevation, trending downward. No further episodes over weekend. 7. Hyperlipidemia; statin 8. Black distal phalanx to left 2nd toe: possibly r/t to covid-19. no significnat PAD per duplex 9. Leukocytosis, ? sepsis. Remains of pressor support. WBC better. BC 09/05 negative 10. Anemia; hgb drift to 7.2. no obvious bleeding Recommendations Avoid AV clara blocking agents Amiodarone for rhythm maintenance Titrate off pressor support as able Continue ASA/statin. Plavix on hold for trach No heparin with anemia Monitor H and H. Transfuse as warranted Ongoing support Justicifation of Admission Dx: Justifications for Admission: Justification of Admission Dx: N/A TEDDY ANGLIN MD 09/11/21 1635: CARDIO Progress Notes Plan Plan Patient seen and examined. Agree with above nurse practitioner note. Case discussed with nursing at bedside and the patient's family. Continue aspirin only. We will withhold heparin drip given the anemia. Await tracheostomy placement and PEG tube placement. Supportive care. TETO DIAZ APRN Sep 11, 2021 08:29 TEDDY ANGLIN MD Sep 11, 2021 16:35
--- NOTE | 2021-09-11 08:34 | PDOC ---
PROGRESS NOTES Date of Service DATE: 09/11/21 TIME: 08:32 Assessment Anoxic encephalopathy, CODE BLUE, 08/23,, in the setting of Covid pneumonia with respiratory failure, hyponatremia, atrial fibrillation, multiorgan damage, cardiogenic as well as septic shock He is on levetiracetam for seizures Plan Not brain , very poor prognosis, continuing full supportive care Try lifting sedation Subjective None Objective Vital Signs Date Time Temp Pulse Resp B/P (MAP) Pulse Ox O2 Delivery O2 Flow Rate FiO2 09/11/21 08:00 98.0 65 22 117/67 100 Ventilator 98.0 Intake and Output 09/11/21 07:00 Intake Total 3482 ml Output Total 2550 ml Balance 932 ml IV Total 2017 ml Tube Feeding 1215 ml Other 250 ml Output Urine Total 2550 ml Gastric Drainage Total 0 ml PHYSICAL EXAM Sedated on vent PERRL. No spontaneous extraocular movement CN: no focal findings. Muscle tone: normal. Muscle strength: Not tested DTR: Not testable Plantar reflex: Silent Gait: not examined in bed. Sensory exam: Not testable Cerebellar: Not testable Review of Relevant I have reviewed the following items shey (where applicable) has been applied. Labs Laboratory Tests Test 09/09/21 17:18 09/10/21 05:20 09/10/21 05:30 09/10/21 09:00 Glucose (Fingerstick) 142 mg/dL (70-99) White Blood Count 41.9 x10^3/uL (4.0-11.0) Red Blood Count 3.06 x10^6/uL (4.30-5.70) Hemoglobin 8.7 g/dL (13.0-17.5) Hematocrit 27.3 % (39.0-53.0) Mean Corpuscular Volume 89 fL (79-100) Mean Corpuscular Hemoglobin 29 pg (25-35) Mean Corpuscular Hemoglobin Concent 32 g/dL (31-37) Red Cell Distribution Width 16.0 % (11.5-14.5) Platelet Count 270 x10^3/uL (140-400) Sodium Level 139 mmol/L (136-145) Potassium Level 4.0 mmol/L (3.5-5.1) Chloride Level 101 mmol/L (98-107) Carbon Dioxide Level 28 mmol/L (21-32) Anion Gap 10 (6-14) Blood Urea Nitrogen 21 mg/dL (8-26) Creatinine 0.6 mg/dL (0.7-1.3) Estimated GFR (Cockcroft-Gault) 136.1 Glucose Level 125 mg/dL (70-99) Calcium Level 7.9 mg/dL (8.5-10.1) Magnesium Level 1.9 mg/dL (1.8-2.4) O2 Saturation 92 % (92-99) Arterial Blood pH 7.44 (7.35-7.45) Arterial Blood pCO2 at Patient Temp 42 mmHg (35-46) Arterial Blood pO2 at Patient Temp 64 mmHg (65-108) Arterial Blood HCO3 28 mmol/L (21-28) Arterial Blood Base Excess 4 mmol/L (-3-3) FiO2 40% ac 22 400 5 Test 09/11/21 06:00 White Blood Count 28.3 x10^3/uL (4.0-11.0) Red Blood Count 2.46 x10^6/uL (4.30-5.70) Hemoglobin 7.2 g/dL (13.0-17.5) Hematocrit 21.3 % (39.0-53.0) Mean Corpuscular Volume 87 fL (79-100) Mean Corpuscular Hemoglobin 29 pg (25-35) Mean Corpuscular Hemoglobin Concent 34 g/dL (31-37) Red Cell Distribution Width 16.1 % (11.5-14.5) Platelet Count 214 x10^3/uL (140-400) Neutrophils (%) (Auto) 94 % (31-73) Lymphocytes (%) (Auto) 3 % (24-48) Monocytes (%) (Auto) 3 % (0-9) Eosinophils (%) (Auto) 0 % (0-3) Basophils (%) (Auto) 0 % (0-3) Neutrophils # (Auto) 26.6 x10^3/uL (1.8-7.7) Lymphocytes # (Auto) 0.8 x10^3/uL (1.0-4.8) Monocytes # (Auto) 0.8 x10^3/uL (0.0-1.1) Eosinophils # (Auto) 0.1 x10^3/uL (0.0-0.7) Basophils # (Auto) 0.0 x10^3/uL (0.0-0.2) Sodium Level 137 mmol/L (136-145) Potassium Level 3.3 mmol/L (3.5-5.1) Chloride Level 102 mmol/L (98-107) Carbon Dioxide Level 33 mmol/L (21-32) Anion Gap 2 (6-14) Blood Urea Nitrogen 17 mg/dL (8-26) Creatinine 0.6 mg/dL (0.7-1.3) Estimated GFR (Cockcroft-Gault) 136.1 BUN/Creatinine Ratio 28 (6-20) Glucose Level 149 mg/dL (70-99) Calcium Level 7.9 mg/dL (8.5-10.1) Total Bilirubin 0.4 mg/dL (0.2-1.0) Aspartate Amino Transf (AST/SGOT) 39 U/L (15-37) Alanine Aminotransferase (ALT/SGPT) 40 U/L (16-63) Alkaline Phosphatase 105 U/L (46-116) Total Protein 5.2 g/dL (6.4-8.2) Albumin 2.0 g/dL (3.4-5.0) Albumin/Globulin Ratio 0.6 (1.0-1.7) Laboratory Tests Test 09/10/21 09:00 09/11/21 06:00 O2 Saturation 92 % (92-99) Arterial Blood pH 7.44 (7.35-7.45) Arterial Blood pCO2 at Patient Temp 42 mmHg (35-46) Arterial Blood pO2 at Patient Temp 64 mmHg (65-108) Arterial Blood HCO3 28 mmol/L (21-28) Arterial Blood Base Excess 4 mmol/L (-3-3) FiO2 40% ac 22 400 5 White Blood Count 28.3 x10^3/uL (4.0-11.0) Red Blood Count 2.46 x10^6/uL (4.30-5.70) Hemoglobin 7.2 g/dL (13.0-17.5) Hematocrit 21.3 % (39.0-53.0) Mean Corpuscular Volume 87 fL (79-100) Mean Corpuscular Hemoglobin 29 pg (25-35) Mean Corpuscular Hemoglobin Concent 34 g/dL (31-37) Red Cell Distribution Width 16.1 % (11.5-14.5) Platelet Count 214 x10^3/uL (140-400) Neutrophils (%) (Auto) 94 % (31-73) Lymphocytes (%) (Auto) 3 % (24-48) Monocytes (%) (Auto) 3 % (0-9) Eosinophils (%) (Auto) 0 % (0-3) Basophils (%) (Auto) 0 % (0-3) Neutrophils # (Auto) 26.6 x10^3/uL (1.8-7.7) Lymphocytes # (Auto) 0.8 x10^3/uL (1.0-4.8) Monocytes # (Auto) 0.8 x10^3/uL (0.0-1.1) Eosinophils # (Auto) 0.1 x10^3/uL (0.0-0.7) Basophils # (Auto) 0.0 x10^3/uL (0.0-0.2) Sodium Level 137 mmol/L (136-145) Potassium Level 3.3 mmol/L (3.5-5.1) Chloride Level 102 mmol/L (98-107) Carbon Dioxide Level 33 mmol/L (21-32) Anion Gap 2 (6-14) Blood Urea Nitrogen 17 mg/dL (8-26) Creatinine 0.6 mg/dL (0.7-1.3) Estimated GFR (Cockcroft-Gault) 136.1 BUN/Creatinine Ratio 28 (6-20) Glucose Level 149 mg/dL (70-99) Calcium Level 7.9 mg/dL (8.5-10.1) Total Bilirubin 0.4 mg/dL (0.2-1.0) Aspartate Amino Transf (AST/SGOT) 39 U/L (15-37) Alanine Aminotransferase (ALT/SGPT) 40 U/L (16-63) Alkaline Phosphatase 105 U/L (46-116) Total Protein 5.2 g/dL (6.4-8.2) Albumin 2.0 g/dL (3.4-5.0) Albumin/Globulin Ratio 0.6 (1.0-1.7) Microbiology 09/05/21 Urine Culture - Final, Complete 09/05/21 Blood Culture - Final, Complete NO GROWTH AFTER 5 DAYS 08/23/21 Respiratory Culture Gram Stain - Final, Complete 08/23/21 Respiratory Culture - Final, Complete Medications Current Medications Dexamethasone Sodium Phosphate (Decadron) 6 mg DAILY IVP Last administered on 08/10/21at 08:29; Start 08/01/21 at 09:00; Stop 08/10/21 at 09:01; Status DC Heparin Sodium (Porcine) (Heparin Sodium) 5,000 unit Q8HRS SQ Last administered on 08/20/21at 05:41; Start 07/31/21 at 14:00; Stop 08/20/21 at 08:37; Status DC Famotidine (Pepcid Vial) 20 mg BID IVP Last administered on 09/10/21at 08:07; Start 07/31/21 at 14:00; Stop 09/10/21 at 12:40; Status DC Fentanyl Citrate 30 ml @ 2.5 mls/hr CONT PRN IV SEE PROTOCOL Last administered on 07/31/21at 12:49; Start 07/31/21 at 12:15; Stop 07/31/21 at 16:19; Status DC Midazolam HCl 100 ml @ 1 mls/hr CONT PRN IV SEE PROTOCOL Last administered on 09/11/21at 01:57; Start 07/31/21 at 12:15 Propofol 100 ml @ 3.45 mls/hr CONT PRN IV PER PROTOCOL Last administered on 09/11/21at 07:52; Start 07/31/21 at 12:15 Vecuronium [place] (Norcuron Bolus) 6 mg PRN 1X PRN IV VENT INDUCTION; Start 07/31/21 at 12:15; Stop 08/01/21 at 12:14; Status DC Glycerin/ Hypromellose/ Polyethylene (Artificial Tears) 1 drop PRN Q1HR PRN OU DRY EYE; Start 07/31/21 at 12:15 Dexmedetomidine HCl 400 mcg/ Sodium Chloride 100 ml @ 0 mls/hr CONT PRN IV PER PROTOCOL Last administered on 08/17/21at 12:55; Start 07/31/21 at 12:15 Midazolam HCl (Versed) 5 mg PRN 1X PRN IVP VENT INDUCTION; Start 07/31/21 at 12:15; Stop 08/01/21 at 12:14; Status DC Sodium Chloride 500 ml @ 500 mls/hr 1X PRN PRN IV SEE COMMENTS Last administered on 09/10/21at 17:16; Start 07/31/21 at 12:15 Atropine Sulfate (ATROPINE 0.5mg SYRINGE) 0.5 mg PRN Q5MIN PRN IV SEE COMMENTS; Start 07/31/21 at 12:15 Famotidine (Pepcid Vial) 20 mg BID IVP ; Start 07/31/21 at 21:00; Status UNV Piperacillin Sod/ Tazobactam Sod (Zosyn Per Pharmacy) 1 each PRN DAILY PRN MC SEE COMMENTS; Start 07/31/21 at 15:15; Stop 08/08/21 at 12:29; Status DC Piperacillin Sod/ Tazobactam Sod 3.375 gm/Sodium Chloride 50 ml @ 100 mls/hr Q6HRS IV Last administered on 08/07/21at 11:20; Start 07/31/21 at 18:00; Stop 08/07/21 at 17:59; Status DC Fentanyl Citrate 55 ml @ 1 mls/hr CONT PRN IV SEE PROTOCOL Last administered on 09/10/21at 10:43; Start 07/31/21 at 15:45 Insulin Human Lispro (HumaLOG) 0-7 UNITS Q6HRS SQ ; Start 08/02/21 at 06:00; Stop 08/07/21 at 08:09; Status DC Dextrose (Dextrose 50%-Water Syringe) 12.5 gm PRN Q15MIN PRN IV SEE COMMENTS; Start 08/01/21 at 23:00 Vecuronium [place] (Norcuron Bolus) 6 mg PRN Q6HRS PRN IV VENTILATOR COMPLIANCE Last administered on 09/10/21at 05:33; Start 08/06/21 at 13:45 Vecuronium [place] (Norcuron Bolus) 10 mg STK-MED ONCE IV ; Start 08/06/21 at 13:34; Stop 08/07/21 at 13:38; Status DC Sterile Water (WATER for RESP) 1,000 ml CONT PRN INH VIA VAPOTHERM DEVICE; Start 08/12/21 at 09:45; Status Cancel Dexamethasone Sodium Phosphate (Decadron) 6 mg DAILY IVP ; Start 08/17/21 at 09:00; Stop 08/16/21 at 13:31; Status DC Dexamethasone Sodium Phosphate (Decadron) 10 mg 1X ONCE IV ; Start 08/16/21 at 12:30; Stop 08/16/21 at 13:31; Status DC Acetaminophen (Tylenol) 650 mg PRN Q6HRS PRN PEG MILD PAIN / TEMP > 100.3'F Last administered on 08/20/21at 03:50; Start 08/17/21 at 00:15 Heparin Sodium (Porcine) (Heparin Sodium) 5,000 unit Q8HRS SQ Last administered on 08/23/21at 05:39; Start 08/21/21 at 14:00; Stop 08/23/21 at 18:33; Status DC Fentanyl Citrate (Fentanyl 2ml Vial) 25 mcg PRN Q5MIN PRN IVP MILD PAIN 1-3; Start 08/21/21 at 06:00; Stop 08/22/21 at 05:59; Status DC Fentanyl Citrate (Fentanyl 2ml Vial) 50 mcg PRN Q5MIN PRN IVP MODERATE PAIN 4- 6; Start 08/21/21 at 06:00; Stop 08/22/21 at 05:59; Status DC Morphine Sulfate (Morphine Sulfate) 1 mg PRN Q10MIN PRN IVP SEVERE PAIN 7-10; Start 08/21/21 at 06:00; Stop 08/22/21 at 05:59; Status DC Ringer's Solution 1,000 ml @ 30 mls/hr Q24H IV ; Start 08/21/21 at 06:00; Stop 08/21/21 at 17:59; Status DC Hydromorphone HCl (Dilaudid) 0.5 mg PRN Q10MIN PRN IVP SEVERE PAIN 7-10, 2nd CHOICE; Start 08/21/21 at 06:00; Stop 08/22/21 at 05:59; Status DC Prochlorperazine Edisylate (Compazine) 5 mg PACU PRN PRN IVP NAUSEA, MRX1; Start 08/21/21 at 06:00; Stop 08/22/21 at 05:59; Status DC Haloperidol Lactate (Haldol Inj) 5 mg PRN Q8HRS PRN IVP AGITATION; Start 08/22/21 at 10:45; Stop 08/22/21 at 10:45; Status DC Haloperidol Lactate (Haldol Inj) 5 mg Q8HRS IVP Last administered on 08/23/21at 05:38; Start 08/22/21 at 11:00; Stop 08/24/21 at 13:52; Status DC Acetaminophen (Tylenol Supp) 650 mg Q4H ONCE MI Last administered on 08/22/21at 11:45; Start 08/22/21 at 11:30; Stop 08/22/21 at 11:31; Status DC Vancomycin HCl (Vanco Per Pharmacy) 1 each PRN DAILY PRN MC SEE COMMENTS Last administered on 08/23/21at 12:21; Start 08/22/21 at 11:30; Stop 08/24/21 at 09:14; Status DC Piperacillin Sod/ Tazobactam Sod (Zosyn Per Pharmacy) 1 each PRN DAILY PRN MC SEE COMMENTS; Start 08/22/21 at 11:30; Stop 09/10/21 at 11:37; Status DC Piperacillin Sod/ Tazobactam Sod 4.5 gm/Dextrose 100 ml @ 200 mls/hr Q6HRS IV Last administered on 09/10/21at 05:32; Start 08/22/21 at 12:00; Stop 09/10/21 at 08:13; Status DC Vancomycin HCl 2 gm/Sodium Chloride 500 ml @ 250 mls/hr 1X ONCE IV Last administered on 08/22/21at 12:34; Start 08/22/21 at 13:00; Stop 08/22/21 at 14:59; Status DC Acetaminophen (Tylenol Supp) 650 mg PRN Q4HRS PRN MI MILD PAIN / TEMP > 100.3'F Last administered on 08/22/21at 23:32; Start 08/22/21 at 11:45 Dextrose/Lactated Ringer's 1,000 ml @ 80 mls/hr [id number] IV Last administered on 08/31/21at 21:16; Start 08/22/21 at 12:45; Stop 09/01/21 at 12:01; Status DC Vancomycin HCl 1 gm/Sodium Chloride 250 ml @ 250 mls/hr Q8H IV Last administered on 08/24/21at 04:00; Start 08/22/21 at 20:00; Stop 08/24/21 at 09:14; Status DC Vancomycin HCl (Vancomycin Trough Level) 1 each 1X ONCE MC ; Start 08/23/21 at 11:30; Stop 08/24/21 at 09:14; Status DC Etomidate (Amidate) 20 mg STK-MED ONCE IV ; Start 08/23/21 at 11:25; Stop 08/23/21 at 11:25; Status DC Succinylcholine Chloride (Anectine) 200 mg STK-MED ONCE .ROUTE ; Start 08/23/21 at 11:25; Stop 08/23/21 at 11:26; Status DC Etomidate (Amidate) 20 mg 1X ONCE IV Last administered on 08/23/21at 12:21; Start 08/23/21 at 12:15; Stop 08/23/21 at 12:16; Status DC Succinylcholine Chloride (Anectine) 100 mg 1X ONCE IV Last administered on 08/23/21at 12:21; Start 08/23/21 at 12:15; Stop 08/23/21 at 12:16; Status DC Methylprednisolone Sodium Succinate (SOLU-Medrol 125MG VIAL) 125 mg Q8HRS IV Last administered on 09/01/21at 06:08; Start 08/23/21 at 14:00; Stop 09/01/21 at 12:01; Status DC Furosemide (Lasix) 40 mg 1X ONCE IVP Last administered on 08/23/21at 13:19; Start 08/23/21 at 12:45; Stop 08/23/21 at 12:56; Status DC Furosemide (Lasix) 40 mg DAILY IVP Last administered on 08/24/21at 07:24; Start 08/24/21 at 09:00; Stop 08/24/21 at 11:24; Status DC Digoxin (Lanoxin) 500 mcg 1X ONCE IV Last administered on 08/23/21at 15:16; Start 08/23/21 at 15:30; Stop 08/23/21 at 15:31; Status DC Amiodarone HCl 150 mg/Dextrose 103 ml @ 600 mls/hr 1X ONCE IV ; Start 08/23/21 at 16:00; Stop 08/23/21 at 16:10; Status DC Amiodarone HCl 450 mg/Dextrose 259 ml @ 33 mls/hr CONT PRN IV SEE I/O RECORD Last administered on 08/24/21at 01:22; Start 08/23/21 at 16:00; Stop 08/24/21 at 15:59; Status DC Iodixanol (Visipaque 320) 100 ml STK-MED ONCE .ROUTE ; Start 08/23/21 at 16:00; Stop 08/23/21 at 16:00; Status DC Lidocaine HCl (Lidocaine 1% 20ml Vial) 20 ml STK-MED ONCE .ROUTE ; Start 08/23/21 at 16:00; Stop 08/23/21 at 16:00; Status DC Heparin Sodium/ Sodium Chloride 1,500 ml @ As Directed STK-MED ONCE .ROUTE ; Start 08/23/21 at 16:00; Stop 08/23/21 at 16:00; Status DC Amiodarone HCl (Cordarone) 150 mg STK-MED ONCE .ROUTE ; Start 08/23/21 at 16:01; Stop 08/23/21 at 16:01; Status DC Amiodarone HCl (Cordarone) 150 mg 1X ONCE IVP Last administered on 08/23/21at 16:23; Start 08/23/21 at 16:15; Stop 08/23/21 at 16:16; Status DC Aspirin (Aspirin Chewable) 324 mg 1X ONCE PO Last administered on 08/23/21at 16:07; Start 08/23/21 at 16:15; Stop 08/23/21 at 16:16; Status DC Aspirin (Aspirin Chewable) 81 mg STK-MED ONCE .ROUTE ; Start 08/23/21 at 16:06; Stop 08/23/21 at 16:06; Status DC Heparin Sodium (Porcine) (Heparin Sodium) 10,000 unit STK-MED ONCE .ROUTE ; Start 08/23/21 at 16:23; Stop 08/23/21 at 16:24; Status DC Verapamil HCl (Verapamil) 5 mg STK-MED ONCE .ROUTE ; Start 08/23/21 at 16:23; Stop 08/23/21 at 16:24; Status DC Nitroglycerin (Nitroglycerin) 200 mcg STK-MED ONCE .ROUTE ; Start 08/23/21 at 16:23; Stop 08/23/21 at 16:24; Status DC Aspirin (Aspirin Chewable) 81 mg DAILYWBKFT PO Last administered on 09/11/21at 07:36; Start 08/24/21 at 08:00 Phenylephrine HCl 50 mg/Sodium Chloride 255 ml @ 14.351 mls/ hr CONT PRN IV PER PROTOCOL Last administered on 08/23/21at 16:42; Start 08/23/21 at 16:45 Phenylephrine HCl (PHENYLEPHRINE in 0.9% NACL PF) 1 mg STK-MED ONCE IV ; Start 08/23/21 at 16:41; Stop 08/23/21 at 16:41; Status DC Heparin Sodium (Porcine) (Heparin Sodium) 10,000 unit STK-MED ONCE .ROUTE ; Start 08/23/21 at 16:47; Stop 08/23/21 at 16:47; Status DC Norepinephrine Bitartrate 8 mg/ Dextrose 258 ml @ 18.15 mls/ hr CONT PRN IV PER PROTOCOL Last administered on 09/11/21at 01:57; Start 08/23/21 at 17:00 Iodixanol (Visipaque 320) 100 ml STK-MED ONCE .ROUTE ; Start 08/23/21 at 17:07; Stop 08/23/21 at 17:07; Status DC Nitroglycerin (Nitroglycerin) 200 mcg 1X ONCE IART Last administered on 08/23/21at 16:35; Start 08/23/21 at 17:15; Stop 08/23/21 at 17:16; Status DC Verapamil HCl (Verapamil) 2.5 mg 1X ONCE IART Last administered on 08/23/21at 16:35; Start 08/23/21 at 17:15; Stop 08/23/21 at 17:16; Status DC Heparin Sodium (Porcine) (Heparin Sodium) 2,500 unit 1X ONCE IART Last administered on 08/23/21at 16:42; Start 08/23/21 at 17:15; Stop 08/23/21 at 17:16; Status DC Heparin Sodium/ Sodium Chloride (HEPARIN for ARTERIAL LINE FLUSH) 1,000 unit 1X ONCE IART Last administered on 08/23/21at 17:15; Start 08/23/21 at 17:15; Stop 08/23/21 at 17:16; Status DC Heparin Sodium/ Sodium Chloride (HEPARIN for ARTERIAL LINE FLUSH) 4,000 unit 1X ONCE IV Last administered on 08/23/21at 17:15; Start 08/23/21 at 17:15; Stop 08/23/21 at 17:16; Status DC Iodixanol (Visipaque 320) 100 ml 1X ONCE IART Last administered on 08/23/21at 17:15; Start 08/23/21 at 17:15; Stop 08/23/21 at 17:16; Status DC Heparin Sodium (Porcine) (Heparin Sodium) 5,000 unit 1X ONCE INT CAT Last administered on 08/23/21at 16:52; Start 08/23/21 at 17:15; Stop 08/23/21 at 17:16; Status DC Tirofiban/Sodium Chloride 250 ml @ As Directed STK-MED ONCE IV ; Start 08/23/21 at 17:18; Stop 08/23/21 at 17:18; Status DC Tirofiban/Sodium Chloride 250 ml @ 16.884 mls/ hr CONT PRN IV PER PROTOCOL Last administered on 08/23/21at 17:16; Start 08/23/21 at 17:45; Stop 08/24/21 at 11:44; Status DC Heparin Sodium (Porcine) (Heparin Sodium) 5,000 unit 1X ONCE IV Last administered on 08/23/21at 17:09; Start 08/23/21 at 18:30; Stop 08/23/21 at 18:31 ; Status DC Levetiracetam 100 ml @ 400 mls/hr Q12HR IV Last administered on 08/26/21at 11:29; Start 08/23/21 at 21:00; Stop 08/26/21 at 21:06; Status DC Heparin Sodium/ Dextrose 250 ml @ 11.256 mls/ hr CONT PRN IV PER PROTOCOL Last administered on 09/04/21at 05:21; Start 08/23/21 at 18:45; Stop 09/04/21 at 16:22; Status DC Heparin Sodium (Porcine) (Heparin Sodium) 2,350 unit PRN Q6HRS PRN IV FOR UFH LEVEL LESS THAN 0.2 Last administered on 08/27/21at 01:28; Start 08/23/21 at 18:45; Stop 09/04/21 at 16:22; Status DC Clopidogrel Bisulfate (Plavix) 600 mg 1X ONCE PO Last administered on 08/23/21at 22:06; Start 08/23/21 at 22:30; Stop 08/23/21 at 22:31; Status DC Potassium Chloride/Water 100 ml @ 100 mls/hr Q1H IV Last administered on 08/24/21at 02:00; Start 08/23/21 at 22:00; Stop 08/24/21 at 01:59; Status DC Daptomycin 520 mg/ Sodium Chloride 50 ml @ 100 mls/hr Q24H IV Last administered on 08/26/21at 12:57; Start 08/24/21 at 11:00; Stop 08/27/21 at 08:17; Status DC Linezolid (Zyvox) 600 mg BID PO Last administered on 09/01/21at 08:32; Start 08/24/21 at 10:00; Stop 09/01/21 at 09:30; Status DC Amiodarone HCl (Cordarone) 200 mg DAILY PO Last administered on 09/11/21at 07:36; Start 08/24/21 at 12:00 Furosemide (Lasix) 40 mg DAILY IVP Last administered on 09/04/21at 10:50; Start 08/25/21 at 09:00; Stop 09/05/21 at 17:31; Status DC Atorvastatin Calcium (Lipitor) 20 mg QHS PO Last administered on 08/26/21at 22:04; Start 08/24/21 at 21:00; Stop 08/27/21 at 13:59; Status DC Clopidogrel Bisulfate (Plavix) 75 mg 1X ONCE PO ; Start 08/24/21 at 11:30; Stop 08/24/21 at 11:31; Status UNV Clopidogrel Bisulfate (Plavix) 75 mg DAILYWBKFT PO Last administered on 09/07/21at 07:41; Start 08/24/21 at 12:00 Epinephrine HCl (EPINEPHrine SYRINGE) 1 mg STK-MED ONCE .ROUTE ; Start 08/23/21 at 17:00; Stop 08/24/21 at 12:21; Status DC Sodium Bicarbonate (Sodium Bicarb Adult 8.4% Syr) 50 meq STK-MED ONCE .ROUTE ; Start 08/23/21 at 17:00; Stop 08/24/21 at 12:21; Status DC Potassium Chloride/Water 100 ml @ 100 mls/hr Q1H IV Last administered on 08/25/21at 13:32; Start 08/25/21 at 10:00; Stop 08/25/21 at 12:59; Status DC Potassium Chloride/Water 100 ml @ 100 mls/hr Q1H IV Last administered on 08/26/21at 10:05; Start 08/26/21 at 09:00; Stop 08/26/21 at 11:59; Status DC Potassium Bicarbonate (Potassium Effervescent Tablet) 60 meq 1X ONCE PO Last administered on 08/26/21at 13:51; Start 08/26/21 at 10:30; Stop 08/26/21 at 10:31; Status DC Levetiracetam 500 mg/Dextrose 105 ml @ 100 mls/hr Q12HR IV Last administered on 08/28/21at 09:00; Start 08/26/21 at 21:30; Stop 08/28/21 at 12:27; Status DC Potassium Bicarbonate (Potassium Effervescent Tablet) 20 meq TID PO Last administered on 09/04/21at 21:00; Start 08/27/21 at 09:30; Stop 09/05/21 at 16:54; Status DC Losartan Potassium (Cozaar) 25 mg DAILY PO Last administered on 09/04/21at 10:08; Start 08/27/21 at 15:00; Stop 09/05/21 at 17:07; Status DC Spironolactone (Aldactone) 25 mg DAILY PO Last administered on 09/04/21at 13:00; Start 08/27/21 at 15:00; Stop 09/05/21 at 17:08; Status DC Atorvastatin Calcium (Lipitor) 40 mg QHS PO Last administered on 09/10/21at 20:46; Start 08/27/21 at 21:00 Atropine Sulfate (ATROPINE 1mg SYRINGE) 1 mg STK-MED ONCE .ROUTE ; Start 08/23/21 at 12:32; Stop 08/27/21 at 14:26; Status DC Levetiracetam 100 ml @ 100 mls/hr Q12HR IV ; Start 08/28/21 at 21:00; Status Cancel Levetiracetam (Keppra Oral Soln) 500 mg BID PEG Last administered on 09/11/21at 07:35; Start 08/28/21 at 21:00 Heparin Sodium (Porcine) (Heparin Sodium) 10,000 unit STK-MED ONCE .ROUTE ; Start 08/30/21 at 12:56; Stop 08/30/21 at 12:56; Status DC Verapamil HCl (Verapamil) 5 mg STK-MED ONCE .ROUTE ; Start 08/30/21 at 12:56; Stop 08/30/21 at 12:56; Status DC Nitroglycerin (Nitroglycerin) 200 mcg STK-MED ONCE .ROUTE ; Start 08/30/21 at 12:56; Stop 08/30/21 at 12:56; Status DC Iodixanol (Visipaque 320) 100 ml STK-MED ONCE .ROUTE ; Start 08/30/21 at 12:57; Stop 08/30/21 at 12:57; Status DC Lidocaine HCl (Xylocaine-Mpf 1% 2ml Vial) 2 ml STK-MED ONCE .ROUTE ; Start 08/30/21 at 12:57; Stop 08/30/21 at 12:57; Status DC Heparin Sodium/ Sodium Chloride 1,000 ml @ As Directed STK-MED ONCE .ROUTE ; Start 08/30/21 at 12:57; Stop 08/30/21 at 12:57; Status DC Nitroglycerin (Nitroglycerin) 200 mcg 1X ONCE IART Last administered on 08/30/21at 13:34; Start 08/30/21 at 13:00; Stop 08/30/21 at 13:04; Status DC Verapamil HCl (Verapamil) 2.5 mg 1X ONCE IART Last administered on 08/30/21at 13:34; Start 08/30/21 at 13:00; Stop 08/30/21 at 13:04; Status DC Heparin Sodium (Porcine) (Heparin Sodium) 2,500 unit 1X ONCE IART Last administered on 08/30/21at 13:34; Start 08/30/21 at 13:00; Stop 08/30/21 at 13:04; Status DC Heparin Sodium/ Sodium Chloride (HEPARIN for ARTERIAL LINE FLUSH) 1,000 unit 1X ONCE IART Last administered on 08/30/21at 13:00; Start 08/30/21 at 13:00; Stop 08/30/21 at 13:04; Status DC Heparin Sodium/ Sodium Chloride (HEPARIN for ARTERIAL LINE FLUSH) 1,000 unit 1X ONCE IART Last administered on 08/30/21at 13:00; Start 08/30/21 at 13:00; Stop 08/30/21 at 13:04; Status DC Iodixanol (Visipaque 320) 100 ml 1X ONCE IART Last administered on 08/30/21at 13:55; Start 08/30/21 at 13:00; Stop 08/30/21 at 13:04; Status DC Lidocaine HCl (Xylocaine-Mpf 1% 2ml Vial) 2 ml 1X ONCE INJ Last administered on 08/30/21at 13:33; Start 08/30/21 at 13:00; Stop 08/30/21 at 13:04; Status DC Info (CONTRAST GIVEN -- Rx MONITORING) 1 each PRN DAILY PRN MC SEE COMMENTS; Start 08/30/21 at 13:15; Stop 09/01/21 at 13:14; Status DC Alteplase, Recombinant (Cathflo For Central Catheter Clearance) 1 mg 1X ONCE INT CAT Last administered on 08/31/21at 12:11; Start 08/31/21 at 10:45; Stop 08/31/21 at 10:46; Status DC Methylprednisolone Sodium Succinate (SOLU-Medrol 125MG VIAL) 60 mg Q8HRS IV Last administered on 09/04/21at 06:02; Start 09/01/21 at 14:00; Stop 09/04/21 at 08:19; Status DC Methylprednisolone Sodium Succinate (SOLU-Medrol 40MG VIAL) 40 mg Q8HRS IV Last administered on 09/06/21at 05:37; Start 09/04/21 at 14:00; Stop 09/06/21 at 10:03; Status DC Fentanyl Citrate (Fentanyl 2ml Vial) 25 mcg PRN Q5MIN PRN IVP MILD PAIN 1-3; Start 09/05/21 at 06:00; Stop 09/06/21 at 05:59; Status DC Fentanyl Citrate (Fentanyl 2ml Vial) 50 mcg PRN Q5MIN PRN IVP MODERATE PAIN 4- 6; Start 09/05/21 at 06:00; Stop 09/06/21 at 05:59; Status DC Morphine Sulfate (Morphine Sulfate) 1 mg PRN Q10MIN PRN IVP SEVERE PAIN 7-10; Start 09/05/21 at 06:00; Stop 09/06/21 at 05:59; Status DC Ringer's Solution 1,000 ml @ 30 mls/hr Q24H IV ; Start 09/05/21 at 06:00; Stop 09/05/21 at 17:59; Status DC Hydromorphone HCl (Dilaudid) 0.5 mg PRN Q10MIN PRN IVP SEVERE PAIN 7-10, 2nd CHOICE; Start 09/05/21 at 06:00; Stop 09/06/21 at 05:59; Status DC Prochlorperazine Edisylate (Compazine) 5 mg PACU PRN PRN IVP NAUSEA, MRX1; Start 09/05/21 at 06:00; Stop 09/06/21 at 05:59; Status DC Metoprolol Tartrate (Lopressor) 25 mg BID PO Last administered on 09/04/21at 20:59; Start 09/04/21 at 21:00; Stop 09/05/21 at 17:31; Status DC Norepinephrine Bitartrate 8 mg/ Dextrose 258 ml @ 0 mls/hr CONT IV ; Start 09/05/21 at 09:30; Status UNV Sodium Chloride 500 ml @ 500 mls/hr 1X ONCE IV Last administered on 09/05/21at 08:00; Start 09/05/21 at 08:00; Stop 09/05/21 at 12:11; Status DC Heparin Sodium/ Dextrose 250 ml @ 11.484 mls/ hr CONT PRN IV PER PROTOCOL Last administered on 09/05/21at 15:53; Start 09/05/21 at 14:45 Heparin Sodium (Porcine) (Heparin Sodium) 2,400 unit PRN Q6HRS PRN IV FOR UFH LEVEL LESS THAN 0.2; Start 09/05/21 at 14:45 Linezolid/Dextrose 300 ml @ 300 mls/hr Q12HR IV Last administered on 09/11/21at 07:35; Start 09/05/21 at 21:00 Vancomycin HCl (Vancomycin Oral Solution) 125 mg [id number] PO ; Start 09/05/21 at 17:30; Stop 09/06/21 at 14:59; Status DC Epinephrine HCl (EPINEPHrine SYRINGE) 1 mg STK-MED ONCE .ROUTE ; Start 09/06/21 at 07:11; Stop 09/06/21 at 07:12; Status DC Digoxin (Lanoxin) 250 mcg 1X ONCE IV Last administered on 09/06/21at 08:39; Start 09/06/21 at 08:30; Stop 09/06/21 at 08:31; Status DC Methylprednisolone Sodium Succinate (SOLU-Medrol 40MG VIAL) 40 mg Q12H IV Last administered on 09/10/21at 08:07; Start 09/06/21 at 21:00; Stop 09/10/21 at 13:16; Status DC Epinephrine HCl (EPINEPHrine SYRINGE) 1 mg STK-MED ONCE .ROUTE ; Start 09/05/21 at 17:00; Stop 09/07/21 at 08:29; Status DC Meropenem 500 mg/ Sodium Chloride 50 ml @ 100 mls/hr Q6HRS IV Last administered on 09/11/21at 05:31; Start 09/10/21 at 12:00 Daptomycin 550 mg/ Sodium Chloride 50 ml @ 100 mls/hr Q24H IV Last administered on 09/10/21at 09:56; Start 09/10/21 at 09:00 Pantoprazole Sodium (PROTONIX VIAL for IV PUSH) 40 mg BIDAC IVP Last administered on 09/11/21at 07:36; Start 09/10/21 at 16:30 Potassium Bicarbonate (Potassium Effervescent Tablet) 40 meq 1X ONCE PEG Last administered on 09/11/21at 07:36; Start 09/11/21 at 07:15; Stop 09/11/21 at 07:22; Status DC Vitals/I & O Vital Sign - Last 24 Hours 09/10/21 09/10/21 09/10/21 09/10/21 09:00 09:06 09:15 09:30 Pulse 101 Resp 22 B/P (MAP) 69/49 76/50 136/87 Pulse Ox 94 94 O2 Delivery Ventilator Ventilator 09/10/21 09/10/21 09/10/21 09/10/21 10:00 10:15 10:50 11:05 Pulse 98 79 Resp 22 22 B/P (MAP) 168/95 127/79 77/49 76/52 Pulse Ox 96 93 O2 Delivery Ventilator Ventilator 09/10/21 09/10/21 09/10/21 09/10/21 11:15 11:15 11:30 12:00 Temp 97.6 97.6 Pulse 74 70 Resp 22 B/P (MAP) 76/52 80/54 83/56 82/54 Pulse Ox 96 O2 Delivery Ventilator 09/10/21 09/10/21 09/10/21 09/10/21 12:03 12:15 13:00 14:00 Pulse 63 78 Resp 22 22 B/P (MAP) 91/55 88/56 102/61 Pulse Ox 96 94 98 O2 Delivery Ventilator Ventilator Ventilator 09/10/21 09/10/21 09/10/2122 15:00 16:00 16:39 17:00 Temp 98.6 98.6 Pulse 77 68 81 Resp B/P (MAP) 98/63 132/77 104/71 Pulse Ox 98 96 96 97 O2 Delivery Ventilator Ventilator Ventilator Ventilator 09/10/21 09/10/21 09/10/21 09/10/21 18:00 19:00 19:30 20:00 Temp 97.6 97.6 Pulse 81 79 77 Resp B/P (MAP) 112/71 104/72 113/67 Pulse Ox 98 97 100 O2 Delivery Ventilator Ventilator Mechanical Ventilator Ventilator 09/10/21 09/10/21 09/10/21 09/10/21 20:00 21:00 22:00 23:00 Pulse 79 81 74 Resp B/P (MAP) 128/73 117/69 150/68 Pulse Ox 100 99 99 98 O2 Delivery Ventilator Ventilator Ventilator Ventilator 09/10/21 09/11/21 09/11/21 09/11/21 23:15 00:00 00:01 01:00 Temp 97.3 97.3 Pulse 71 72 Resp B/P (MAP) 135/71 104/64 113/65 Pulse Ox 98 99 98 O2 Delivery Ventilator Ventilator Ventilator 09/11/21 09/11/21 09/11/21 09/11/21 02:00 03:00 03:15 04:00 Temp 97.6 97.6 Pulse 72 67 66 Resp B/P (MAP) 134/73 152/63 106/61 146/71 Pulse Ox 99 98 100 O2 Delivery Ventilator Ventilator Ventilator 09/11/21 09/11/21 09/11/21 09/11/21 04:00 05:00 06:00 07:00 Pulse 81 82 81 Resp B/P (MAP) 103/60 109/70 98/65 Pulse Ox 99 99 100 100 O2 Delivery Ventilator Ventilator Ventilator Ventilator 09/11/21 09/11/21 07:36 08:00 Temp 98.0 98.0 Pulse 81 65 Resp B/P (MAP) 101/60 117/67 Pulse Ox 100 O2 Delivery Ventilator Intake and Output 09/10/21 09/10/21 09/11/21 15:00 23:00 07:00 Intake Total 650 ml 1077 ml 1755 ml Output Total 300 ml 675 ml 1575 ml Balance 350 ml 402 ml 180 ml Justicifation of Admission Dx: Justifications for Admission: Justification of Admission Dx: N/A DEREK TELLEZ MD Sep 11, 2021 08:34
[2021-09-11] MEDS: DAPTOmycin (GENERIC) IVPB 550 MG in IV NORMAL SALINE 50ML 50 ML IV SCH (09:43)
--- NOTE | 2021-09-11 09:48 | PN ---
DATE: 09/11/2021 SUBJECTIVE: The patient continued to be heavily sedated on Levophed, intubated and mechanically ventilated. His white cell count is coming down from 42,000 to down 28,000. However, his hemoglobin also has dropped down and hematocrit are 7.2 and 21.3. PHYSICAL EXAMINATION: GENERAL: On examining him, he was pale, not jaundiced, cyanosed or thyromegaly. No jugular venous distention. No limb edema. VITAL SIGNS: His heart rate was 65, blood pressure was 117/67, his temperature was 98, respiratory rate was 22 and his oxygen saturation was 100% on FiO2 of 40%. HEAD, EYES, EARS, NOSE, AND THROAT: Normocephalic, atraumatic. Has orotracheal and orogastric tube. NECK: Supple. HEART: Normal first and second heart sounds. No gallop, rub or murmur. CHEST: Showed central trachea, equal bilateral expansion, air entry, vesicular breath sounds. I could not appreciate any crepitation or rhonchi anteriorly. ABDOMEN: Distended, soft, nontender. NEUROLOGIC: He is heavily sedated. His intake was 3300, output was 3100. LABORATORY DATA: As of this morning, his white cell count is down to 28.3, hemoglobin 7.2, hematocrit 21.3, MCV 87 and platelet count 214,000. His chemistry showed a serum sodium 137, potassium 3.3, chloride 102, bicarbonate 33, anion gap of 2, BUN 17, creatinine 0.6. Estimated GFR was 136 mL per minute. His glucose 149, calcium was 7.9. Total bilirubin, AST, ALT, alkaline phosphatase were normal. Total protein 5.2, albumin 2. ASSESSMENT: 1. The patient is status post cardiac arrest, likely to hypoxia. He had COVID-19 pneumonia as well as acute inferior wall myocardial infarction. Apparently, the patient went into ventricular tachycardia with shocked and went into ventricular fibrillation, treated with CPR and epinephrine with return of spontaneous circulation. He also developed an episode of bradycardia and bigeminy as well as atrial fibrillation with rapid ventricular response that has responded very well to IV digoxin. He continues to be in sinus rhythm. 2. Acute on chronic hypoxic respiratory failure. 3. Acute respiratory distress syndrome. 4. Acute exacerbation of chronic obstructive pulmonary disease. 5. COVID-19 pneumonia. 6. Atrial fibrillation with rapid ventricular response that is rate controlled. He is off heparin. His Plavix was also put on hold. He is only on aspirin for the time being in anticipation of tracheostomy tube placement as well as gastrostomy tube placement. 7. Cardiogenic as well as septic shock, has resolved. 8. The patient underwent cardiac catheterization for the second time, which showed the patient has recanalized his right coronary artery for which he was started on oral aspirin and Plavix with high risk PCI and stent deployment given the large size of the coronary artery. 9. The patient was scheduled for tracheostomy tube placement as well as PEG tube placement. PLAN: To continue with sedation, mechanical ventilation. Continue with Keppra for seizure disorder. Continue with aspirin as his heparin and Plavix are discontinued. Continue with DVT and GI prophylaxis. PRUDENCIO DR: Vannessa TID: [id number]
--- NOTE | 2021-09-11 10:18 | PDOC ---
PULMONARY PROGRESS NOTES DATE: 09/11/21 TIME: 10:14 Subjective No overnight events Currently on assist control ventilation Vitals Vital Signs Date Time Temp Pulse Resp B/P (MAP) Pulse Ox O2 Delivery O2 Flow Rate FiO2 09/11/21 10:00 68 22 101/58 100 Ventilator 09/11/21 08:00 98.0 98.0 Comments ros unable to obtain sedated on vent HEENT: Other (nc at perrl nose clear orally intubated neck no lad no thyromegaly) Lungs: Clear Cardiovascular: S1, S2 Abdomen: Soft, Non-tender Extremities: No Edema Skin: Warm Labs Laboratory Tests Test 09/09/21 17:18 09/10/21 05:20 09/10/21 05:30 09/10/21 09:00 Glucose (Fingerstick) 142 mg/dL (70-99) White Blood Count 41.9 x10^3/uL (4.0-11.0) Red Blood Count 3.06 x10^6/uL (4.30-5.70) Hemoglobin 8.7 g/dL (13.0-17.5) Hematocrit 27.3 % (39.0-53.0) Mean Corpuscular Volume 89 fL (79-100) Mean Corpuscular Hemoglobin 29 pg (25-35) Mean Corpuscular Hemoglobin Concent 32 g/dL (31-37) Red Cell Distribution Width 16.0 % (11.5-14.5) Platelet Count 270 x10^3/uL (140-400) Sodium Level 139 mmol/L (136-145) Potassium Level 4.0 mmol/L (3.5-5.1) Chloride Level 101 mmol/L (98-107) Carbon Dioxide Level 28 mmol/L (21-32) Anion Gap 10 (6-14) Blood Urea Nitrogen 21 mg/dL (8-26) Creatinine 0.6 mg/dL (0.7-1.3) Estimated GFR (Cockcroft-Gault) 136.1 Glucose Level 125 mg/dL (70-99) Calcium Level 7.9 mg/dL (8.5-10.1) Magnesium Level 1.9 mg/dL (1.8-2.4) O2 Saturation 92 % (92-99) Arterial Blood pH 7.44 (7.35-7.45) Arterial Blood pCO2 at Patient Temp 42 mmHg (35-46) Arterial Blood pO2 at Patient Temp 64 mmHg (65-108) Arterial Blood HCO3 28 mmol/L (21-28) Arterial Blood Base Excess 4 mmol/L (-3-3) FiO2 40% ac 22 400 5 Test 09/11/21 06:00 White Blood Count 28.3 x10^3/uL (4.0-11.0) Red Blood Count 2.46 x10^6/uL (4.30-5.70) Hemoglobin 7.2 g/dL (13.0-17.5) Hematocrit 21.3 % (39.0-53.0) Mean Corpuscular Volume 87 fL (79-100) Mean Corpuscular Hemoglobin 29 pg (25-35) Mean Corpuscular Hemoglobin Concent 34 g/dL (31-37) Red Cell Distribution Width 16.1 % (11.5-14.5) Platelet Count 214 x10^3/uL (140-400) Neutrophils (%) (Auto) 94 % (31-73) Lymphocytes (%) (Auto) 3 % (24-48) Monocytes (%) (Auto) 3 % (0-9) Eosinophils (%) (Auto) 0 % (0-3) Basophils (%) (Auto) 0 % (0-3) Neutrophils # (Auto) 26.6 x10^3/uL (1.8-7.7) Lymphocytes # (Auto) 0.8 x10^3/uL (1.0-4.8) Monocytes # (Auto) 0.8 x10^3/uL (0.0-1.1) Eosinophils # (Auto) 0.1 x10^3/uL (0.0-0.7) Basophils # (Auto) 0.0 x10^3/uL (0.0-0.2) Sodium Level 137 mmol/L (136-145) Potassium Level 3.3 mmol/L (3.5-5.1) Chloride Level 102 mmol/L (98-107) Carbon Dioxide Level 33 mmol/L (21-32) Anion Gap 2 (6-14) Blood Urea Nitrogen 17 mg/dL (8-26) Creatinine 0.6 mg/dL (0.7-1.3) Estimated GFR (Cockcroft-Gault) 136.1 BUN/Creatinine Ratio 28 (6-20) Glucose Level 149 mg/dL (70-99) Calcium Level 7.9 mg/dL (8.5-10.1) Total Bilirubin 0.4 mg/dL (0.2-1.0) Aspartate Amino Transf (AST/SGOT) 39 U/L (15-37) Alanine Aminotransferase (ALT/SGPT) 40 U/L (16-63) Alkaline Phosphatase 105 U/L (46-116) Total Protein 5.2 g/dL (6.4-8.2) Albumin 2.0 g/dL (3.4-5.0) Albumin/Globulin Ratio 0.6 (1.0-1.7) Laboratory Tests Test 09/11/21 06:00 White Blood Count 28.3 x10^3/uL (4.0-11.0) Red Blood Count 2.46 x10^6/uL (4.30-5.70) Hemoglobin 7.2 g/dL (13.0-17.5) Hematocrit 21.3 % (39.0-53.0) Mean Corpuscular Volume 87 fL (79-100) Mean Corpuscular Hemoglobin 29 pg (25-35) Mean Corpuscular Hemoglobin Concent 34 g/dL (31-37) Red Cell Distribution Width 16.1 % (11.5-14.5) Platelet Count 214 x10^3/uL (140-400) Neutrophils (%) (Auto) 94 % (31-73) Lymphocytes (%) (Auto) 3 % (24-48) Monocytes (%) (Auto) 3 % (0-9) Eosinophils (%) (Auto) 0 % (0-3) Basophils (%) (Auto) 0 % (0-3) Neutrophils # (Auto) 26.6 x10^3/uL (1.8-7.7) Lymphocytes # (Auto) 0.8 x10^3/uL (1.0-4.8) Monocytes # (Auto) 0.8 x10^3/uL (0.0-1.1) Eosinophils # (Auto) 0.1 x10^3/uL (0.0-0.7) Basophils # (Auto) 0.0 x10^3/uL (0.0-0.2) Sodium Level 137 mmol/L (136-145) Potassium Level 3.3 mmol/L (3.5-5.1) Chloride Level 102 mmol/L (98-107) Carbon Dioxide Level 33 mmol/L (21-32) Anion Gap 2 (6-14) Blood Urea Nitrogen 17 mg/dL (8-26) Creatinine 0.6 mg/dL (0.7-1.3) Estimated GFR (Cockcroft-Gault) 136.1 BUN/Creatinine Ratio 28 (6-20) Glucose Level 149 mg/dL (70-99) Calcium Level 7.9 mg/dL (8.5-10.1) Total Bilirubin 0.4 mg/dL (0.2-1.0) Aspartate Amino Transf (AST/SGOT) 39 U/L (15-37) Alanine Aminotransferase (ALT/SGPT) 40 U/L (16-63) Alkaline Phosphatase 105 U/L (46-116) Total Protein 5.2 g/dL (6.4-8.2) Albumin 2.0 g/dL (3.4-5.0) Albumin/Globulin Ratio 0.6 (1.0-1.7) Comments CT chest abdomen and pelvis reviewed. Dated 09/10/2021 Impression: 1. Left lower lobe airspace consolidation superimposed on diffuse groundglass opacity with emphysematous and fibrotic change. Findings suspected to represent multifocal infectious process. 2. Infrarenal aortic aneurysm measuring 3.4 cm diameter. 3. Distended gallbladder without wall thickening. Correlate for right upper quadrant symptoms, consider acalculous cholecystitis in the setting of prolonged illness. Impression . 1. Acute hypoxic respiratory failure secondary to COVID-19 pneumonia, acute respiratory distress syndrome and possible underlying fibrosis and emphysema., Extubated 08/20, reintubated 08/23 status post CODE BLUE/semi-CODE BLUE on 09/[address] chest. Reviewed dated 09/10/2021. Left lower lobe consolidation versus atelectasis. Evidence of possible mild fibrosis. There is evidence of pneumatoceles related to Covid. 3. Recent marked leukocytosis. Possible leukemoid reaction versus acalculous cholecystitis. Currently trending down. Initiated on broad-spectrum antibiotic per infectious disease. 4. Suspected underlying severe chronic obstructive pulmonary disease. 5. COVID-19 viral pneumonia.--- Covid recovered 6. Abnormal chest x-ray with bilateral diffuse infiltrates related to COVID-19 viral pneumonia.--- Covid recovered 7. Patient reintubated 08/23, status post CODE BLUE 8. Abnormal x-ray from 08/15, possible ARDS, possible pulmonary edema, possible aspiration 9. ST elevation MD status post intra-aortic balloon pump--08/23/2021 10. Emergent cardiac catheterization revealing 90% stenotic lesion 11. Echocardiogram revealing ejection fraction of 35 to 40% pulmonary artery pressure of 34 inferior septal wall hypokinesis 12. Bacteremia Staph epidermidis 13. Necrotic toe left second, suspect related COVID Cardiac catheterization 08/30 Due to large vessel size a decision was made to defer stenting at this time for continued medical therapy. After the patient is fully extubated and depending on symptoms could consider PCI. Conclusion 1. Recanalized right coronary artery with brisk blood flow. 2. Residual proximal 70% RCA stenosis with significant ectasia of the RCA measuring up to 6.25 mm. 3. Normal left ventricular filling pressures. Recommendations 1. Continue aspirin, Plavix and heparin drip. 2. Continue plans for extubation. 3. After patient is extubated and stabilized depending on symptoms we will consider high risk PCI with specialized MegaTron stent given the large vessel size. Plan . Updated 09/11 Continue present assist-control mode. Oxygen requirement is at 40%. Tracheotomy placed on hold because of leukocytosis. Trending down. Hopefully trach later this week Off steroids Broad-spectrum antibiotics per ID Discussed with at the bedside ABG noted Blood cultures after 4 days negative. C. difficile negative I doubt left lower lobe atelectasis/consolidation is the etiology for marked leukocytosis. Discussed with RN RT and discussed with patient's at the bedside. Critical care time 30 minutes Updated 09/10 Tracheotomy placed on hold because of leukocytosis Decrease steroids Antibiotics per ID Discussed with at the bedside ABG noted Blood cultures after 4 days negative 09/09 cont vent support setting reviewed, ct of head no acute abnl elevate hob Repeat LHC showed recanalized right coronary artery with brisk blood flow. Residual proximal 70% RCA stenosis with significant ectasia of the RCA measuring up to 6.25 mm. levo to keep map 60 abx per id trach next week overall prognosis poor discussed w rn 09/08 cont vent support setting reviewed, re consult neuro elevate hob Repeat LHC showed recanalized right coronary artery with brisk blood flow. Residual proximal 70% RCA stenosis with significant ectasia of the RCA measuring up to 6.25 mm. Patient currently off pressors no dose change per cardiology abx per id trach next week discussed w MICHELLE Lujan MD Sep 11, 2021 10:18
--- NOTE | 2021-09-11 11:14 | PDOC ---
Infectious Disease Note Subjective: Subjective Patient Intubated Vital Signs: Vital Signs Vital Signs Date Time Temp Pulse Resp B/P (MAP) Pulse Ox O2 Delivery O2 Flow Rate FiO2 09/11/21 11:00 68 22 101/61 99 Ventilator 09/11/21 08:00 98.0 98.0 Physical Exam: PHYSICAL EXAM GENERAL: Intubated HEENT: No conjunctival petechia. ETT present, OGT present LUNGS: Coarse breath sounds in the bases, otherwise clear. HEART: S1, S2, irregular. I could not appreciate any murmurs. ABDOMEN: Soft, nontender, nondistended. Bowel sounds present. GENITOURINARY: Berumen in place. EXTREMITIES: Present no cyanosis. Right groin catheter removed, Right upper extremity PICC line placed on 08/23/2021.Lt 2nd digit black DERMATOLOGIC: Warm, dry, no generalized rash. NEUROLOGIC: Unable to assess. Medications: Inpatient Meds: Medications reviewed. Labs: Lab Laboratory Tests Test 09/11/21 06:00 White Blood Count 28.3 x10^3/uL (4.0-11.0) Red Blood Count 2.46 x10^6/uL (4.30-5.70) Hemoglobin 7.2 g/dL (13.0-17.5) Hematocrit 21.3 % (39.0-53.0) Mean Corpuscular Volume 87 fL (79-100) Mean Corpuscular Hemoglobin 29 pg (25-35) Mean Corpuscular Hemoglobin Concent 34 g/dL (31-37) Red Cell Distribution Width 16.1 % (11.5-14.5) Platelet Count 214 x10^3/uL (140-400) Neutrophils (%) (Auto) 94 % (31-73) Lymphocytes (%) (Auto) 3 % (24-48) Monocytes (%) (Auto) 3 % (0-9) Eosinophils (%) (Auto) 0 % (0-3) Basophils (%) (Auto) 0 % (0-3) Neutrophils # (Auto) 26.6 x10^3/uL (1.8-7.7) Lymphocytes # (Auto) 0.8 x10^3/uL (1.0-4.8) Monocytes # (Auto) 0.8 x10^3/uL (0.0-1.1) Eosinophils # (Auto) 0.1 x10^3/uL (0.0-0.7) Basophils # (Auto) 0.0 x10^3/uL (0.0-0.2) Sodium Level 137 mmol/L (136-145) Potassium Level 3.3 mmol/L (3.5-5.1) Chloride Level 102 mmol/L (98-107) Carbon Dioxide Level 33 mmol/L (21-32) Anion Gap 2 (6-14) Blood Urea Nitrogen 17 mg/dL (8-26) Creatinine 0.6 mg/dL (0.7-1.3) Estimated GFR (Cockcroft-Gault) 136.1 BUN/Creatinine Ratio 28 (6-20) Glucose Level 149 mg/dL (70-99) Calcium Level 7.9 mg/dL (8.5-10.1) Total Bilirubin 0.4 mg/dL (0.2-1.0) Aspartate Amino Transf (AST/SGOT) 39 U/L (15-37) Alanine Aminotransferase (ALT/SGPT) 40 U/L (16-63) Alkaline Phosphatase 105 U/L (46-116) Total Protein 5.2 g/dL (6.4-8.2) Albumin 2.0 g/dL (3.4-5.0) Albumin/Globulin Ratio 0.6 (1.0-1.7) Micro PATIENT: JAYY JEFFRIES ACCOUNT: [id number] : 1955 LOCATION: [address] [place] [address] AGE: 65 SEX: M EXAM STATUS: ADM IN ORD. PHYSICIAN: SOFIA LOWERY MD REASON: Leukocytosis PROCEDURE: CT CHEST ABDOMEN PELVIS WO CT CHEST_ABDOMEN_ AND PELVIS WITHOUT CONTRAST History: Leukocytosis. Comparison: CTA chest 07/29/2021. Technique: CT of the chest, abdomen and pelvis with intravenous contrast. Findings: Chest: Devices: Endotracheal tube terminates in the upper thoracic trachea. Right upper extremity PICC terminates at the cavoatrial junction. Gastric tube terminates within the stomach. Pulmonary arteries: Unremarkable. Aorta and great vessels: No aneurysm of the aortic arch or thoracic aorta is seen. Mild atherosclerotic calcification. Heart: The heart is normal in size. There is no pericardial effusion. Moderate to heavy coronary artery calcification. Thyroid: No significant abnormalities. Mediastinum and akua: No mediastinal masses or adenopathy is seen. Esophagus: The visualized esophagus is normal. Airways, Lungs, Pleura: Moderate emphysematous change and mild subpleural fibrotic change. Left lower lobe airspace consolidation. Diffuse bilateral groundglass opacity and prominence of the interlobular septa Soft tissue and osseous: No acute findings. Abdomen/Pelvis: General abdomen: No ascites. No free air. Liver : Normal in size and attenuation. No masses seen. Gallbladder/Biliary Tree: Distended gallbladder without stones or wall thickening. No intrahepatic or extrahepatic biliary ductal dilatation. Pancreas: Normal. Spleen: Normal in size and attenuation. Adrenal glands: Normal. Kidneys: Bilateral perinephric fat stranding. No nephrolithiasis or hydronephrosis. No renal masses identified. Gastrointestinal: Stomach is decompressed by a gastric tube. Unremarkable small bowel. Normal appendix. No colonic wall thickening or pericolonic inflammatory changes. Indwelling rectal tube. Lymph nodes: No lymphadenopathy. Vessels: Fusiform infrarenal aortic aneurysm measuring 3.4 cm diameter by approximately 4 cm length. Pelvic Organs: Unremarkable reproductive organs. No pelvic masses. Bladder is decompressed by Berumen catheter. Soft tissues: Minimal anasarca. Bones: No acute or aggressive lesions. Impression: 1. Left lower lobe airspace consolidation superimposed on diffuse groundglass opacity with emphysematous and fibrotic change. Findings suspected to represent multifocal infectious process. 2. Infrarenal aortic aneurysm measuring 3.4 cm diameter. 3. Distended gallbladder without wall thickening. Correlate for right upper quadrant symptoms, consider acalculous cholecystitis in the setting of prolonged illness. Objective: Assessment: Fever multifactorial s/p code ,possible aspiration resolved MRSE Bacterermia 08/22/2021.Central line was pulled out Acute hypoxic respiratory failure. COVID-19 pneumonia. Chronic obstructive pulmonary disease with possible underlying pulmonary fibrosis, aspiration pneumonia. Status post code atrial fibrillation with rapid ventricular response, ventricular fibrillation, status post defibrillation, epinephrine, bicarbonate drip, status post cardiac catheterization. IABP placement. Severe protein-calorie malnutrition. Abnormal liver function tests, likely shock liver. Anemia. Encephalopathy likely anoxic .Electrolyte abn Leucocytosis on steroids, also could be worsening from Bleeds epistaxis now with leukemoid reaction. CT head, chest, abdomen pelvis nonrevealing Black digit of Lt 2nd toe could be COVID C. difficile negative on 09/05/2021 Plan: Plan of Care Patient remains afebrile Cont Dapto ,zyvox , meropenem, WBC decreased down to 28K CT C/A/P 09/10 reviewed C. 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 SOFIA LOWERY MD Sep 11, 2021 11:14
[2021-09-11] MEDS: fentaNYL HIGH DOSE PCA 55 ML IV PRN (11:29)
--- NOTE | 2021-09-11 11:49 | PDOC ---
Date of Service: DATE: 09/11/21 TIME: 11:44 Subjective: Subjective: present, says he's better than yesterday. Objective: Objective: D/w nurse - Hgb drop, no significant rectal tube output, plans for trach Thurs. Vital Signs: Vital Signs Date Time Temp Pulse Resp B/P (MAP) Pulse Ox O2 Delivery O2 Flow Rate FiO2 09/11/21 11:00 68 22 101/61 99 Ventilator 09/11/21 08:00 98.0 98.0 Labs: Laboratory Tests Test 09/11/21 06:00 White Blood Count 28.3 x10^3/uL Red Blood Count 2.46 x10^6/uL Hemoglobin 7.2 g/dL Hematocrit 21.3 % Mean Corpuscular Volume 87 fL Mean Corpuscular Hemoglobin 29 pg Mean Corpuscular Hemoglobin Concent 34 g/dL Red Cell Distribution Width 16.1 % Platelet Count 214 x10^3/uL Neutrophils (%) (Auto) 94 % Lymphocytes (%) (Auto) 3 % Monocytes (%) (Auto) 3 % Eosinophils (%) (Auto) 0 % Basophils (%) (Auto) 0 % Neutrophils # (Auto) 26.6 x10^3/uL Lymphocytes # (Auto) 0.8 x10^3/uL Monocytes # (Auto) 0.8 x10^3/uL Eosinophils # (Auto) 0.1 x10^3/uL Basophils # (Auto) 0.0 x10^3/uL Sodium Level 137 mmol/L Potassium Level 3.3 mmol/L Chloride Level 102 mmol/L Carbon Dioxide Level 33 mmol/L Anion Gap 2 Blood Urea Nitrogen 17 mg/dL Creatinine 0.6 mg/dL Estimated GFR (Cockcroft-Gault) 136.1 BUN/Creatinine Ratio 28 Glucose Level 149 mg/dL Calcium Level 7.9 mg/dL Total Bilirubin 0.4 mg/dL Aspartate Amino Transf (AST/SGOT) 39 U/L Alanine Aminotransferase (ALT/SGPT) 40 U/L Alkaline Phosphatase 105 U/L Total Protein 5.2 g/dL Albumin 2.0 g/dL Albumin/Globulin Ratio 0.6 BLOOD CULTURE Final NO GROWTH AFTER 5 DAYS PE: GEN: intubated LUNGS: vent/clear HEART: RRR ABD: soft, non-distended, watery blackish output in rectal tube NEURO/PSYCH: sedated A/P: COVID (recovered)/resp failure, s/p cardiac arrest/CAD, anoxic encephalopathy - Plavix held, ?on Heparin Anemia - drift in Hgb, on IV PPI Dark stools -- Following along. Justicifation of Admission Dx: Justifications for Admission: Justification of Admission Dx: N/A GEORGIA GUILLEN Sep 11, 2021 11:49
[2021-09-11 14:13] LABS: HEMATOCRIT 22.7 % (39.0-53.0); HEMOGLOBIN 7.6 g/dL (13.0-17.5); RED BLOOD COUNT 2.53 x10^6/uL (4.30-5.70); WHITE BLOOD COUNT 28.1 x10^3/uL (4.0-11.0)
--- NOTE | 2021-09-11 15:22 | NUR ---
SS following up with discharge planning. SS reviewed pt chart and discussed with pt RN. Pt is currently on the vent at 40%. Tentative trach scheduled for , 09/13/2021. COVID19 recovered. Pt on IV Meropenem, IV Daptomycin, and IV Zyvox. Pt on Levophed, Versed, Fentanyl, and Propofol. Not stable. SS will continue to follow for discharge planning.
--- NOTE | 2021-09-11 15:42 | PDOC ---
SURGICAL PROGRESS NOTE DATE: 09/11/21 TIME: 15:41 Subjective Pt intubated and sedated, appears more stable Vital Signs Vital Signs Date Time Temp Pulse Resp B/P (MAP) Pulse Ox O2 Delivery O2 Flow Rate FiO2 09/11/21 15:00 86 22 119/73 98 Ventilator 09/11/21 12:00 98.6 98.6 I&O Intake and Output 09/11/21 07:00 Intake Total 3482 ml Output Total 2550 ml Balance 932 ml IV Total 2017 ml Tube Feeding 1215 ml Other 250 ml Output Urine Total 2550 ml Gastric Drainage Total 0 ml General: No acute distress HEENT: Other (orally intubated) Labs Laboratory Tests Test 09/09/21 17:18 09/10/21 05:20 09/10/21 05:30 09/10/21 09:00 Glucose (Fingerstick) 142 mg/dL (70-99) White Blood Count 41.9 x10^3/uL (4.0-11.0) Red Blood Count 3.06 x10^6/uL (4.30-5.70) Hemoglobin 8.7 g/dL (13.0-17.5) Hematocrit 27.3 % (39.0-53.0) Mean Corpuscular Volume 89 fL (79-100) Mean Corpuscular Hemoglobin 29 pg (25-35) Mean Corpuscular Hemoglobin Concent 32 g/dL (31-37) Red Cell Distribution Width 16.0 % (11.5-14.5) Platelet Count 270 x10^3/uL (140-400) Sodium Level 139 mmol/L (136-145) Potassium Level 4.0 mmol/L (3.5-5.1) Chloride Level 101 mmol/L (98-107) Carbon Dioxide Level 28 mmol/L (21-32) Anion Gap 10 (6-14) Blood Urea Nitrogen 21 mg/dL (8-26) Creatinine 0.6 mg/dL (0.7-1.3) Estimated GFR (Cockcroft-Gault) 136.1 Glucose Level 125 mg/dL (70-99) Calcium Level 7.9 mg/dL (8.5-10.1) Magnesium Level 1.9 mg/dL (1.8-2.4) O2 Saturation 92 % (92-99) Arterial Blood pH 7.44 (7.35-7.45) Arterial Blood pCO2 at Patient Temp 42 mmHg (35-46) Arterial Blood pO2 at Patient Temp 64 mmHg (65-108) Arterial Blood HCO3 28 mmol/L (21-28) Arterial Blood Base Excess 4 mmol/L (-3-3) FiO2 40% ac 22 400 5 Test 09/11/21 06:00 09/11/21 13:45 White Blood Count 28.3 x10^3/uL (4.0-11.0) 28.1 x10^3/uL (4.0-11.0) Red Blood Count 2.46 x10^6/uL (4.30-5.70) 2.53 x10^6/uL (4.30-5.70) Hemoglobin 7.2 g/dL (13.0-17.5) 7.6 g/dL (13.0-17.5) Hematocrit 21.3 % (39.0-53.0) 22.7 % (39.0-53.0) Mean Corpuscular Volume 87 fL (79-100) 90 fL (79-100) Mean Corpuscular Hemoglobin 29 pg (25-35) 30 pg (25-35) Mean Corpuscular Hemoglobin Concent 34 g/dL (31-37) 34 g/dL (31-37) Red Cell Distribution Width 16.1 % (11.5-14.5) 17.0 % (11.5-14.5) Platelet Count 214 x10^3/uL (140-400) 208 x10^3/uL (140-400) Neutrophils (%) (Auto) 94 % (31-73) Lymphocytes (%) (Auto) 3 % (24-48) Monocytes (%) (Auto) 3 % (0-9) Eosinophils (%) (Auto) 0 % (0-3) Basophils (%) (Auto) 0 % (0-3) Neutrophils # (Auto) 26.6 x10^3/uL (1.8-7.7) Lymphocytes # (Auto) 0.8 x10^3/uL (1.0-4.8) Monocytes # (Auto) 0.8 x10^3/uL (0.0-1.1) Eosinophils # (Auto) 0.1 x10^3/uL (0.0-0.7) Basophils # (Auto) 0.0 x10^3/uL (0.0-0.2) Sodium Level 137 mmol/L (136-145) Potassium Level 3.3 mmol/L (3.5-5.1) Chloride Level 102 mmol/L (98-107) Carbon Dioxide Level 33 mmol/L (21-32) Anion Gap 2 (6-14) Blood Urea Nitrogen 17 mg/dL (8-26) Creatinine 0.6 mg/dL (0.7-1.3) Estimated GFR (Cockcroft-Gault) 136.1 BUN/Creatinine Ratio 28 (6-20) Glucose Level 149 mg/dL (70-99) Calcium Level 7.9 mg/dL (8.5-10.1) Total Bilirubin 0.4 mg/dL (0.2-1.0) Aspartate Amino Transf (AST/SGOT) 39 U/L (15-37) Alanine Aminotransferase (ALT/SGPT) 40 U/L (16-63) Alkaline Phosphatase 105 U/L (46-116) Total Protein 5.2 g/dL (6.4-8.2) Albumin 2.0 g/dL (3.4-5.0) Albumin/Globulin Ratio 0.6 (1.0-1.7) Laboratory Tests Test 09/11/21 06:00 09/11/21 13:45 White Blood Count 28.3 x10^3/uL (4.0-11.0) 28.1 x10^3/uL (4.0-11.0) Red Blood Count 2.46 x10^6/uL (4.30-5.70) 2.53 x10^6/uL (4.30-5.70) Hemoglobin 7.2 g/dL (13.0-17.5) 7.6 g/dL (13.0-17.5) Hematocrit 21.3 % (39.0-53.0) 22.7 % (39.0-53.0) Mean Corpuscular Volume 87 fL (79-100) 90 fL (79-100) Mean Corpuscular Hemoglobin 29 pg (25-35) 30 pg (25-35) Mean Corpuscular Hemoglobin Concent 34 g/dL (31-37) 34 g/dL (31-37) Red Cell Distribution Width 16.1 % (11.5-14.5) 17.0 % (11.5-14.5) Platelet Count 214 x10^3/uL (140-400) 208 x10^3/uL (140-400) Neutrophils (%) (Auto) 94 % (31-73) Lymphocytes (%) (Auto) 3 % (24-48) Monocytes (%) (Auto) 3 % (0-9) Eosinophils (%) (Auto) 0 % (0-3) Basophils (%) (Auto) 0 % (0-3) Neutrophils # (Auto) 26.6 x10^3/uL (1.8-7.7) Lymphocytes # (Auto) 0.8 x10^3/uL (1.0-4.8) Monocytes # (Auto) 0.8 x10^3/uL (0.0-1.1) Eosinophils # (Auto) 0.1 x10^3/uL (0.0-0.7) Basophils # (Auto) 0.0 x10^3/uL (0.0-0.2) Sodium Level 137 mmol/L (136-145) Potassium Level 3.3 mmol/L (3.5-5.1) Chloride Level 102 mmol/L (98-107) Carbon Dioxide Level 33 mmol/L (21-32) Anion Gap 2 (6-14) Blood Urea Nitrogen 17 mg/dL (8-26) Creatinine 0.6 mg/dL (0.7-1.3) Estimated GFR (Cockcroft-Gault) 136.1 BUN/Creatinine Ratio 28 (6-20) Glucose Level 149 mg/dL (70-99) Calcium Level 7.9 mg/dL (8.5-10.1) Total Bilirubin 0.4 mg/dL (0.2-1.0) Aspartate Amino Transf (AST/SGOT) 39 U/L (15-37) Alanine Aminotransferase (ALT/SGPT) 40 U/L (16-63) Alkaline Phosphatase 105 U/L (46-116) Total Protein 5.2 g/dL (6.4-8.2) Albumin 2.0 g/dL (3.4-5.0) Albumin/Globulin Ratio 0.6 (1.0-1.7) Assessment/Plan respiratory failure tentatively plan trach on d/w SO Justicifation of Admission Dx: Justifications for Admission: Justification of Admission Dx: N/A TERESA ODEN MD Sep 11, 2021 15:42
[2021-09-11] MEDS: ATORVASTATIN CALCIUM 40 MG TABLET. PO SCH (21:00)
[2021-09-12] VITALS (24 sets, daily range): BP systolic 83–149; BP diastolic 49–86
[2021-09-12] MEDS: NOREPINEPHRINE VIAL 8 MG in IV DEXTROSE 5% 250 ML IV PRN ×2 (03:40→17:14)
[2021-09-12] MEDS: PROPOFOL 100 ML IV PRN ×4 (05:39→21:36)
[2021-09-12] MEDS: MEROPENEM 500 MG in IV NORMAL SALINE 50ML 50 ML IV SCH ×3 (05:40→17:39)
[2021-09-12 06:16] LABS: BASO % 0 % (0-3); EOS # 0.3 x10^3/uL (0.0-0.7); EOS % 1 % (0-3); HEMATOCRIT 21.5 % (39.0-53.0); LYMPH # 0.5 x10^3/uL (1.0-4.8); LYMPH % 3 % (24-48); MEAN CORPUSCULAR HEMOGLOBIN 30 pg (25-35); MEAN CORPUSCULAR HGB CONC 33 g/dL (31-37); MEAN CORPUSCULAR VOLUME 93 fL (79-100); MONO # 0.5 x10^3/uL (0.0-1.1); MONO % 2 % (0-9); NEUT # 18.7 x10^3/uL (1.8-7.7); NEUT % 94 % (31-73); PLATELET COUNT 170 x10^3/uL (140-400); RED BLOOD COUNT 2.31 x10^6/uL (4.30-5.70); RED CELL DISTRIBUTION WIDTH 17.6 % (11.5-14.5)
[2021-09-12 06:45] LABS: ALBUMIN 1.8 g/dL (3.4-5.0); ALBUMIN/GLOBULIN RATIO 0.5 (1.0-1.7); CALCIUM 7.7 mg/dL (8.5-10.1); CREATININE 0.6 mg/dL (0.7-1.3); GFR 136.1; POTASSIUM 4.1 mmol/L (3.5-5.1); TOTAL BILIRUBIN 0.5 mg/dL (0.2-1.0); TOTAL PROTEIN 5.4 g/dL (6.4-8.2)
[2021-09-12] MEDS: PANTOPRAZOLE IV PUSH 40 MG VIAL. IVP SCH ×2 (07:30→16:52)
[2021-09-12] MEDS: CLOPIDOGREL BISULFATE 75 MG TABLET PO SCH (07:46)
[2021-09-12] MEDS: ASPIRIN CHEWABLE 81 MG TABLET. PO SCH (08:00)
--- NOTE | 2021-09-12 09:10 | PDOC ---
PROGRESS NOTES Date of Service DATE: 09/12/21 TIME: 09:09 Assessment Anoxic encephalopathy, CODE NORMA, 08/23, in the setting of Covid pneumonia with respiratory failure, hyponatremia, atrial fibrillation, multiorgan damage, cardiogenic as well as septic shock He is on levetiracetam for seizures Plan I discussed with patient's significant other, his neurological prognosis is poor, but it is difficult to have a valid exam with the sedation. She is still planning on tracheostomy tomorrow Subjective None Objective Vital Signs Date Time Temp Pulse Resp B/P (MAP) Pulse Ox O2 Delivery O2 Flow Rate FiO2 09/12/21 08:46 91 Ventilator 09/12/21 08:00 100.7 93 22 149/75 100.7 Intake and Output 09/12/21 07:00 Intake Total 3044 ml Output Total 1315 ml Balance 1729 ml IV Total 1566 ml Tube Feeding 1203 ml Other 275 ml Output Urine Total 1275 ml Gastric Drainage Total 40 ml PHYSICAL EXAM Sedated on vent PERRL. No spontaneous extraocular movement CN: no focal findings. Muscle tone: normal. Muscle strength: Not tested DTR: Not testable Plantar reflex: Silent Gait: not examined in bed. Sensory exam: Not testable Cerebellar: Not testable Review of Relevant I have reviewed the following items shey (where applicable) has been applied. Labs Laboratory Tests Test 09/11/21 06:00 09/11/21 13:45 09/12/21 05:50 White Blood Count 28.3 x10^3/uL (4.0-11.0) 28.1 x10^3/uL (4.0-11.0) 20.0 x10^3/uL (4.0-11.0) Red Blood Count 2.46 x10^6/uL (4.30-5.70) 2.53 x10^6/uL (4.30-5.70) 2.31 x10^6/uL (4.30-5.70) Hemoglobin 7.2 g/dL (13.0-17.5) 7.6 g/dL (13.0-17.5) 7.0 g/dL (13.0-17.5) Hematocrit 21.3 % (39.0-53.0) 22.7 % (39.0-53.0) 21.5 % (39.0-53.0) Mean Corpuscular Volume 87 fL (79-100) 90 fL (79-100) 93 fL (79-100) Mean Corpuscular Hemoglobin 29 pg (25-35) 30 pg (25-35) 30 pg (25-35) Mean Corpuscular Hemoglobin Concent 34 g/dL (31-37) 34 g/dL (31-37) 33 g/dL (31-37) Red Cell Distribution Width 16.1 % (11.5-14.5) 17.0 % (11.5-14.5) 17.6 % (11.5-14.5) Platelet Count 214 x10^3/uL (140-400) 208 x10^3/uL (140-400) 170 x10^3/uL (140-400) Neutrophils (%) (Auto) 94 % (31-73) 94 % (31-73) Lymphocytes (%) (Auto) 3 % (24-48) 3 % (24-48) Monocytes (%) (Auto) 3 % (0-9) 2 % (0-9) Eosinophils (%) (Auto) 0 % (0-3) 1 % (0-3) Basophils (%) (Auto) 0 % (0-3) 0 % (0-3) Neutrophils # (Auto) 26.6 x10^3/uL (1.8-7.7) 18.7 x10^3/uL (1.8-7.7) Lymphocytes # (Auto) 0.8 x10^3/uL (1.0-4.8) 0.5 x10^3/uL (1.0-4.8) Monocytes # (Auto) 0.8 x10^3/uL (0.0-1.1) 0.5 x10^3/uL (0.0-1.1) Eosinophils # (Auto) 0.1 x10^3/uL (0.0-0.7) 0.3 x10^3/uL (0.0-0.7) Basophils # (Auto) 0.0 x10^3/uL (0.0-0.2) 0.0 x10^3/uL (0.0-0.2) Sodium Level 137 mmol/L (136-145) 139 mmol/L (136-145) Potassium Level 3.3 mmol/L (3.5-5.1) 4.1 mmol/L (3.5-5.1) Chloride Level 102 mmol/L (98-107) 100 mmol/L (98-107) Carbon Dioxide Level 33 mmol/L (21-32) 33 mmol/L (21-32) Anion Gap 2 (6-14) 6 (6-14) Blood Urea Nitrogen 17 mg/dL (8-26) 14 mg/dL (8-26) Creatinine 0.6 mg/dL (0.7-1.3) 0.6 mg/dL (0.7-1.3) Estimated GFR (Cockcroft-Gault) 136.1 136.1 BUN/Creatinine Ratio 28 (6-20) 23 (6-20) Glucose Level 149 mg/dL (70-99) 112 mg/dL (70-99) Calcium Level 7.9 mg/dL (8.5-10.1) 7.7 mg/dL (8.5-10.1) Total Bilirubin 0.4 mg/dL (0.2-1.0) 0.5 mg/dL (0.2-1.0) Aspartate Amino Transf (AST/SGOT) 39 U/L (15-37) 42 U/L (15-37) Alanine Aminotransferase (ALT/SGPT) 40 U/L (16-63) 42 U/L (16-63) Alkaline Phosphatase 105 U/L (46-116) 112 U/L (46-116) Total Protein 5.2 g/dL (6.4-8.2) 5.4 g/dL (6.4-8.2) Albumin 2.0 g/dL (3.4-5.0) 1.8 g/dL (3.4-5.0) Albumin/Globulin Ratio 0.6 (1.0-1.7) 0.5 (1.0-1.7) Laboratory Tests Test 09/11/21 13:45 09/12/21 05:50 White Blood Count 28.1 x10^3/uL (4.0-11.0) 20.0 x10^3/uL (4.0-11.0) Red Blood Count 2.53 x10^6/uL (4.30-5.70) 2.31 x10^6/uL (4.30-5.70) Hemoglobin 7.6 g/dL (13.0-17.5) 7.0 g/dL (13.0-17.5) Hematocrit 22.7 % (39.0-53.0) 21.5 % (39.0-53.0) Mean Corpuscular Volume 90 fL (79-100) 93 fL (79-100) Mean Corpuscular Hemoglobin 30 pg (25-35) 30 pg (25-35) Mean Corpuscular Hemoglobin Concent 34 g/dL (31-37) 33 g/dL (31-37) Red Cell Distribution Width 17.0 % (11.5-14.5) 17.6 % (11.5-14.5) Platelet Count 208 x10^3/uL (140-400) 170 x10^3/uL (140-400) Neutrophils (%) (Auto) 94 % (31-73) Lymphocytes (%) (Auto) 3 % (24-48) Monocytes (%) (Auto) 2 % (0-9) Eosinophils (%) (Auto) 1 % (0-3) Basophils (%) (Auto) 0 % (0-3) Neutrophils # (Auto) 18.7 x10^3/uL (1.8-7.7) Lymphocytes # (Auto) 0.5 x10^3/uL (1.0-4.8) Monocytes # (Auto) 0.5 x10^3/uL (0.0-1.1) Eosinophils # (Auto) 0.3 x10^3/uL (0.0-0.7) Basophils # (Auto) 0.0 x10^3/uL (0.0-0.2) Sodium Level 139 mmol/L (136-145) Potassium Level 4.1 mmol/L (3.5-5.1) Chloride Level 100 mmol/L (98-107) Carbon Dioxide Level 33 mmol/L (21-32) Anion Gap 6 (6-14) Blood Urea Nitrogen 14 mg/dL (8-26) Creatinine 0.6 mg/dL (0.7-1.3) Estimated GFR (Cockcroft-Gault) 136.1 BUN/Creatinine Ratio 23 (6-20) Glucose Level 112 mg/dL (70-99) Calcium Level 7.7 mg/dL (8.5-10.1) Total Bilirubin 0.5 mg/dL (0.2-1.0) Aspartate Amino Transf (AST/SGOT) 42 U/L (15-37) Alanine Aminotransferase (ALT/SGPT) 42 U/L (16-63) Alkaline Phosphatase 112 U/L (46-116) Total Protein 5.4 g/dL (6.4-8.2) Albumin 1.8 g/dL (3.4-5.0) Albumin/Globulin Ratio 0.5 (1.0-1.7) Microbiology 09/05/21 Urine Culture - Final, Complete 09/05/21 Blood Culture - Final, Complete NO GROWTH AFTER 5 DAYS 08/23/21 Respiratory Culture Gram Stain - Final, Complete 08/23/21 Respiratory Culture - Final, Complete Medications Current Medications Dexamethasone Sodium Phosphate (Decadron) 6 mg DAILY IVP Last administered on 08/10/21at 08:29; Start 08/01/21 at 09:00; Stop 08/10/21 at 09:01; Status DC Heparin Sodium (Porcine) (Heparin Sodium) 5,000 unit Q8HRS SQ Last administered on 08/20/21at 05:41; Start 07/31/21 at 14:00; Stop 08/20/21 at 08:37; Status DC Famotidine (Pepcid Vial) 20 mg BID IVP Last administered on 09/10/21at 08:07; Start 07/31/21 at 14:00; Stop 09/10/21 at 12:40; Status DC Fentanyl Citrate 30 ml @ 2.5 mls/hr CONT PRN IV SEE PROTOCOL Last administered on 07/31/21at 12:49; Start 07/31/21 at 12:15; Stop 07/31/21 at 16:19; Status DC Midazolam HCl 100 ml @ 1 mls/hr CONT PRN IV SEE PROTOCOL Last administered on 09/11/21at 13:41; Start 07/31/21 at 12:15 Propofol 100 ml @ 3.45 mls/hr CONT PRN IV PER PROTOCOL Last administered on 09/12/21at 05:39; Start 07/31/21 at 12:15 Vecuronium [place] (Norcuron Bolus) 6 mg PRN 1X PRN IV VENT INDUCTION; Start 07/31/21 at 12:15; Stop 08/01/21 at 12:14; Status DC Glycerin/ Hypromellose/ Polyethylene (Artificial Tears) 1 drop PRN Q1HR PRN OU DRY EYE; Start 07/31/21 at 12:15 Dexmedetomidine HCl 400 mcg/ Sodium Chloride 100 ml @ 0 mls/hr CONT PRN IV PER PROTOCOL Last administered on 08/17/21at 12:55; Start 07/31/21 at 12:15 Midazolam HCl (Versed) 5 mg PRN 1X PRN IVP VENT INDUCTION; Start 07/31/21 at 12:15; Stop 08/01/21 at 12:14; Status DC Sodium Chloride 500 ml @ 500 mls/hr 1X PRN PRN IV SEE COMMENTS Last administered on 09/10/21at 17:16; Start 07/31/21 at 12:15 Atropine Sulfate (ATROPINE 0.5mg SYRINGE) 0.5 mg PRN Q5MIN PRN IV SEE COMMENTS; Start 07/31/21 at 12:15 Famotidine (Pepcid Vial) 20 mg BID IVP ; Start 07/31/21 at 21:00; Status UNV Piperacillin Sod/ Tazobactam Sod (Zosyn Per Pharmacy) 1 each PRN DAILY PRN MC SEE COMMENTS; Start 07/31/21 at 15:15; Stop 08/08/21 at 12:29; Status DC Piperacillin Sod/ Tazobactam Sod 3.375 gm/Sodium Chloride 50 ml @ 100 mls/hr Q6HRS IV Last administered on 08/07/21at 11:20; Start 07/31/21 at 18:00; Stop 08/07/21 at 17:59; Status DC Fentanyl Citrate 55 ml @ 1 mls/hr CONT PRN IV SEE PROTOCOL Last administered on 09/11/21at 11:29; Start 07/31/21 at 15:45 Insulin Human Lispro (HumaLOG) 0-7 UNITS Q6HRS SQ ; Start 08/02/21 at 06:00; Stop 08/07/21 at 08:09; Status DC Dextrose (Dextrose 50%-Water Syringe) 12.5 gm PRN Q15MIN PRN IV SEE COMMENTS; Start 08/01/21 at 23:00 Vecuronium [place] (Norcuron Bolus) 6 mg PRN Q6HRS PRN IV VENTILATOR COMPLIANCE Last administered on 09/10/21at 05:33; Start 08/06/21 at 13:45 Vecuronium [place] (Norcuron Bolus) 10 mg STK-MED ONCE IV ; Start 08/06/21 at 13:34; Stop 08/07/21 at 13:38; Status DC Sterile Water (WATER for RESP) 1,000 ml CONT PRN INH VIA VAPOTHERM DEVICE; Start 08/12/21 at 09:45; Status Cancel Dexamethasone Sodium Phosphate (Decadron) 6 mg DAILY IVP ; Start 08/17/21 at 09:00; Stop 08/16/21 at 13:31; Status DC Dexamethasone Sodium Phosphate (Decadron) 10 mg 1X ONCE IV ; Start 08/16/21 at 12:30; Stop 08/16/21 at 13:31; Status DC Acetaminophen (Tylenol) 650 mg PRN Q6HRS PRN PEG MILD PAIN / TEMP > 100.3'F Last administered on 08/20/21at 03:50; Start 08/17/21 at 00:15 Heparin Sodium (Porcine) (Heparin Sodium) 5,000 unit Q8HRS SQ Last administered on 08/23/21at 05:39; Start 08/21/21 at 14:00; Stop 08/23/21 at 18:33; Status DC Fentanyl Citrate (Fentanyl 2ml Vial) 25 mcg PRN Q5MIN PRN IVP MILD PAIN 1-3; Start 08/21/21 at 06:00; Stop 08/22/21 at 05:59; Status DC Fentanyl Citrate (Fentanyl 2ml Vial) 50 mcg PRN Q5MIN PRN IVP MODERATE PAIN 4- 6; Start 08/21/21 at 06:00; Stop 08/22/21 at 05:59; Status DC Morphine Sulfate (Morphine Sulfate) 1 mg PRN Q10MIN PRN IVP SEVERE PAIN 7-10; Start 08/21/21 at 06:00; Stop 08/22/21 at 05:59; Status DC Ringer's Solution 1,000 ml @ 30 mls/hr Q24H IV ; Start 08/21/21 at 06:00; Stop 08/21/21 at 17:59; Status DC Hydromorphone HCl (Dilaudid) 0.5 mg PRN Q10MIN PRN IVP SEVERE PAIN 7-10, 2nd CHOICE; Start 08/21/21 at 06:00; Stop 08/22/21 at 05:59; Status DC Prochlorperazine Edisylate (Compazine) 5 mg PACU PRN PRN IVP NAUSEA, MRX1; Start 08/21/21 at 06:00; Stop 08/22/21 at 05:59; Status DC Haloperidol Lactate (Haldol Inj) 5 mg PRN Q8HRS PRN IVP AGITATION; Start 08/22/21 at 10:45; Stop 08/22/21 at 10:45; Status DC Haloperidol Lactate (Haldol Inj) 5 mg Q8HRS IVP Last administered on 08/23/21at 05:38; Start 08/22/21 at 11:00; Stop 08/24/21 at 13:52; Status DC Acetaminophen (Tylenol Supp) 650 mg Q4H ONCE [place] Last administered on 08/22/21at 11:45; Start 08/22/21 at 11:30; Stop 08/22/21 at 11:31; Status DC Vancomycin HCl (Vanco Per Pharmacy) 1 each PRN DAILY PRN MC SEE COMMENTS Last administered on 08/23/21at 12:21; Start 08/22/21 at 11:30; Stop 08/24/21 at 09:14; Status DC Piperacillin Sod/ Tazobactam Sod (Zosyn Per Pharmacy) 1 each PRN DAILY PRN MC SEE COMMENTS; Start 08/22/21 at 11:30; Stop 09/10/21 at 11:37; Status DC Piperacillin Sod/ Tazobactam Sod 4.5 gm/Dextrose 100 ml @ 200 mls/hr Q6HRS IV Last administered on 09/10/21at 05:32; Start 08/22/21 at 12:00; Stop 09/10/21 at 08:13; Status DC Vancomycin HCl 2 gm/Sodium Chloride 500 ml @ 250 mls/hr 1X ONCE IV Last administered on 08/22/21at 12:34; Start 08/22/21 at 13:00; Stop 08/22/21 at 14:59; Status DC Acetaminophen (Tylenol Supp) 650 mg PRN Q4HRS PRN [place] MILD PAIN / TEMP > 100.3'F Last administered on 08/22/21at 23:32; Start 08/22/21 at 11:45 Dextrose/Lactated Ringer's 1,000 ml @ 80 mls/hr [id number] IV Last administered on 08/31/21at 21:16; Start 08/22/21 at 12:45; Stop 09/01/21 at 12:01; Status DC Vancomycin HCl 1 gm/Sodium Chloride 250 ml @ 250 mls/hr Q8H IV Last administered on 08/24/21at 04:00; Start 08/22/21 at 20:00; Stop 08/24/21 at 09:14; Status DC Vancomycin HCl (Vancomycin Trough Level) 1 each 1X ONCE MC ; Start 08/23/21 at 11:30; Stop 08/24/21 at 09:14; Status DC Etomidate (Amidate) 20 mg STK-MED ONCE IV ; Start 08/23/21 at 11:25; Stop 08/23/21 at 11:25; Status DC Succinylcholine Chloride (Anectine) 200 mg STK-MED ONCE .ROUTE ; Start 08/23/21 at 11:25; Stop 08/23/21 at 11:26; Status DC Etomidate (Amidate) 20 mg 1X ONCE IV Last administered on 08/23/21at 12:21; Start 08/23/21 at 12:15; Stop 08/23/21 at 12:16; Status DC Succinylcholine Chloride (Anectine) 100 mg 1X ONCE IV Last administered on 08/23/21at 12:21; Start 08/23/21 at 12:15; Stop 08/23/21 at 12:16; Status DC Methylprednisolone Sodium Succinate (SOLU-Medrol 125MG VIAL) 125 mg Q8HRS IV Last administered on 09/01/21at 06:08; Start 08/23/21 at 14:00; Stop 09/01/21 at 12:01; Status DC Furosemide (Lasix) 40 mg 1X ONCE IVP Last administered on 08/23/21at 13:19; Start 08/23/21 at 12:45; Stop 08/23/21 at 12:56; Status DC Furosemide (Lasix) 40 mg DAILY IVP Last administered on 08/24/21at 07:24; Start 08/24/21 at 09:00; Stop 08/24/21 at 11:24; Status DC Digoxin (Lanoxin) 500 mcg 1X ONCE IV Last administered on 08/23/21at 15:16; Start 08/23/21 at 15:30; Stop 08/23/21 at 15:31; Status DC Amiodarone HCl 150 mg/Dextrose 103 ml @ 600 mls/hr 1X ONCE IV ; Start 08/23/21 at 16:00; Stop 08/23/21 at 16:10; Status DC Amiodarone HCl 450 mg/Dextrose 259 ml @ 33 mls/hr CONT PRN IV SEE I/O RECORD Last administered on 08/24/21at 01:22; Start 08/23/21 at 16:00; Stop 08/24/21 at 15:59; Status DC Iodixanol (Visipaque 320) 100 ml STK-MED ONCE .ROUTE ; Start 08/23/21 at 16:00; Stop 08/23/21 at 16:00; Status DC Lidocaine HCl (Lidocaine 1% 20ml Vial) 20 ml STK-MED ONCE .ROUTE ; Start 08/23/21 at 16:00; Stop 08/23/21 at 16:00; Status DC Heparin Sodium/ Sodium Chloride 1,500 ml @ As Directed STK-MED ONCE .ROUTE ; Start 08/23/21 at 16:00; Stop 08/23/21 at 16:00; Status DC Amiodarone HCl (Cordarone) 150 mg STK-MED ONCE .ROUTE ; Start 08/23/21 at 16:01; Stop 08/23/21 at 16:01; Status DC Amiodarone HCl (Cordarone) 150 mg 1X ONCE IVP Last administered on 08/23/21at 16:23; Start 08/23/21 at 16:15; Stop 08/23/21 at 16:16; Status DC Aspirin (Aspirin Chewable) 324 mg 1X ONCE PO Last administered on 08/23/21at 16:07; Start 08/23/21 at 16:15; Stop 08/23/21 at 16:16; Status DC Aspirin (Aspirin Chewable) 81 mg STK-MED ONCE .ROUTE ; Start 08/23/21 at 16:06; Stop 08/23/21 at 16:06; Status DC Heparin Sodium (Porcine) (Heparin Sodium) 10,000 unit STK-MED ONCE .ROUTE ; Start 08/23/21 at 16:23; Stop 08/23/21 at 16:24; Status DC Verapamil HCl (Verapamil) 5 mg STK-MED ONCE .ROUTE ; Start 08/23/21 at 16:23; S top 08/23/21 at 16:24; Status DC Nitroglycerin (Nitroglycerin) 200 mcg STK-MED ONCE .ROUTE ; Start 08/23/21 at 16:23; Stop 08/23/21 at 16:24; Status DC Aspirin (Aspirin Chewable) 81 mg DAILYWBKFT PO Last administered on 09/11/21at 07:36; Start 08/24/21 at 08:00 Phenylephrine HCl 50 mg/Sodium Chloride 255 ml @ 14.351 mls/ hr CONT PRN IV PER PROTOCOL Last administered on 08/23/21at 16:42; Start 08/23/21 at 16:45 Phenylephrine HCl (PHENYLEPHRINE in 0.9% NACL PF) 1 mg STK-MED ONCE IV ; Start 08/23/21 at 16:41; Stop 08/23/21 at 16:41; Status DC Heparin Sodium (Porcine) (Heparin Sodium) 10,000 unit STK-MED ONCE .ROUTE ; Start 08/23/21 at 16:47; Stop 08/23/21 at 16:47; Status DC Norepinephrine Bitartrate 8 mg/ Dextrose 258 ml @ 18.15 mls/ hr CONT PRN IV PER PROTOCOL Last administered on 09/12/21at 03:40; Start 08/23/21 at 17:00 Iodixanol (Visipaque 320) 100 ml STK-MED ONCE .ROUTE ; Start 08/23/21 at 17:07; Stop 08/23/21 at 17:07; Status DC Nitroglycerin (Nitroglycerin) 200 mcg 1X ONCE IART Last administered on 08/23/21at 16:35; Start 08/23/21 at 17:15; Stop 08/23/21 at 17:16; Status DC Verapamil HCl (Verapamil) 2.5 mg 1X ONCE IART Last administered on 08/23/21at 16:35; Start 08/23/21 at 17:15; Stop 08/23/21 at 17:16; Status DC Heparin Sodium (Porcine) (Heparin Sodium) 2,500 unit 1X ONCE IART Last administered on 08/23/21at 16:42; Start 08/23/21 at 17:15; Stop 08/23/21 at 17:16; Status DC Heparin Sodium/ Sodium Chloride (HEPARIN for ARTERIAL LINE FLUSH) 1,000 unit 1X ONCE IART Last administered on 08/23/21at 17:15; Start 08/23/21 at 17:15; Stop 08/23/21 at 17:16; Status DC Heparin Sodium/ Sodium Chloride (HEPARIN for ARTERIAL LINE FLUSH) 4,000 unit 1X ONCE IV Last administered on 08/23/21at 17:15; Start 08/23/21 at 17:15; Stop 08/23/21 at 17:16; Status DC Iodixanol (Visipaque 320) 100 ml 1X ONCE IART Last administered on 08/23/21at 17:15; Start 08/23/21 at 17:15; Stop 08/23/21 at 17:16; Status DC Heparin Sodium (Porcine) (Heparin Sodium) 5,000 unit 1X ONCE INT CAT Last administered on 08/23/21at 16:52; Start 08/23/21 at 17:15; Stop 08/23/21 at 17:16; Status DC Tirofiban/Sodium Chloride 250 ml @ As Directed STK-MED ONCE IV ; Start 08/23/21 at 17:18; Stop 08/23/21 at 17:18; Status DC Tirofiban/Sodium Chloride 250 ml @ 16.884 mls/ hr CONT PRN IV PER PROTOCOL Last administered on 08/23/21at 17:16; Start 08/23/21 at 17:45; Stop 08/24/21 at 11:44; Status DC Heparin Sodium (Porcine) (Heparin Sodium) 5,000 unit 1X ONCE IV Last administered on 08/23/21at 17:09; Start 08/23/21 at 18:30; Stop 08/23/21 at 18:31; Status DC Levetiracetam 100 ml @ 400 mls/hr Q12HR IV Last administered on 08/26/21at 11:29; Start 08/23/21 at 21:00; Stop 08/26/21 at 21:06; Status DC Heparin Sodium/ Dextrose 250 ml @ 11.256 mls/ hr CONT PRN IV PER PROTOCOL Last administered on 09/04/21at 05:21; Start 08/23/21 at 18:45; Stop 09/04/21 at 16:22; Status DC Heparin Sodium (Porcine) (Heparin Sodium) 2,350 unit PRN Q6HRS PRN IV FOR UFH LEVEL LESS THAN 0.2 Last administered on 08/27/21at 01:28; Start 08/23/21 at 18:45; Stop 09/04/21 at 16:22; Status DC Clopidogrel Bisulfate (Plavix) 600 mg 1X ONCE PO Last administered on 08/23/21at 22:06; Start 08/23/21 at 22:30; Stop 08/23/21 at 22:31; Status DC Potassium Chloride/Water 100 ml @ 100 mls/hr Q1H IV Last administered on 08/24/21at 02:00; Start 08/23/21 at 22:00; Stop 08/24/21 at 01:59; Status DC Daptomycin 520 mg/ Sodium Chloride 50 ml @ 100 mls/hr Q24H IV Last administered on 08/26/21at 12:57; Start 08/24/21 at 11:00; Stop 08/27/21 at 08:17; Status DC Linezolid (Zyvox) 600 mg BID PO Last administered on 09/01/21at 08:32; Start 08/24/21 at 10:00; Stop 09/01/21 at 09:30; Status DC Amiodarone HCl (Cordarone) 200 mg DAILY PO Last administered on 09/11/21at 07:36; Start 08/24/21 at 12:00 Furosemide (Lasix) 40 mg DAILY IVP Last administered on 09/04/21at 10:50; Start 08/25/21 at 09:00; Stop 09/05/21 at 17:31; Status DC Atorvastatin Calcium (Lipitor) 20 mg QHS PO Last administered on 08/26/21at 22:04; Start 08/24/21 at 21:00; Stop 08/27/21 at 13:59; Status DC Clopidogrel Bisulfate (Plavix) 75 mg 1X ONCE PO ; Start 08/24/21 at 11:30; Stop 08/24/21 at 11:31; Status UNV Clopidogrel Bisulfate (Plavix) 75 mg DAILYWBKFT PO Last administered on 09/07/21at 07:41; Start 08/24/21 at 12:00 Epinephrine HCl (EPINEPHrine SYRINGE) 1 mg STK-MED ONCE .ROUTE ; Start 08/23/21 at 17:00; Stop 08/24/21 at 12:21; Status DC Sodium Bicarbonate (Sodium Bicarb Adult 8.4% Syr) 50 meq STK-MED ONCE .ROUTE ; Start 08/23/21 at 17:00; Stop 08/24/21 at 12:21; Status DC Potassium Chloride/Water 100 ml @ 100 mls/hr Q1H IV Last administered on 08/25/21at 13:32; Start 08/25/21 at 10:00; Stop 08/25/21 at 12:59; Status DC Potassium Chloride/Water 100 ml @ 100 mls/hr Q1H IV Last administered on 08/26/21at 10:05; Start 08/26/21 at 09:00; Stop 08/26/21 at 11:59; Status DC Potassium Bicarbonate (Potassium Effervescent Tablet) 60 meq 1X ONCE PO Last administered on 08/26/21at 13:51; Start 08/26/21 at 10:30; Stop 08/26/21 at 10:31; Status DC Levetiracetam 500 mg/Dextrose 105 ml @ 100 mls/hr Q12HR IV Last administered on 08/28/21at 09:00; Start 08/26/21 at 21:30; Stop 08/28/21 at 12:27; Status DC Potassium Bicarbonate (Potassium Effervescent Tablet) 20 meq TID PO Last administered on 09/04/21at 21:00; Start 08/27/21 at 09:30; Stop 09/05/21 at 16:54; Status DC Losartan Potassium (Cozaar) 25 mg DAILY PO Last administered on 09/04/21at 10:08; Start 08/27/21 at 15:00; Stop 09/05/21 at 17:07; Status DC Spironolactone (Aldactone) 25 mg DAILY PO Last administered on 09/04/21at 13:00; Start 08/27/21 at 15:00; Stop 09/05/21 at 17:08; Status DC Atorvastatin Calcium (Lipitor) 40 mg QHS PO Last administered on 09/11/21at 21:00; Start 08/27/21 at 21:00 Atropine Sulfate (ATROPINE 1mg SYRINGE) 1 mg STK-MED ONCE .ROUTE ; Start 08/23/21 at 12:32; Stop 08/27/21 at 14:26; Status DC Levetiracetam 100 ml @ 100 mls/hr Q12HR IV ; Start 08/28/21 at 21:00; Status Cancel Levetiracetam (Keppra Oral Soln) 500 mg BID PEG Last administered on 09/11/21at 21:01; Start 08/28/21 at 21:00 Heparin Sodium (Porcine) (Heparin Sodium) 10,000 unit STK-MED ONCE .ROUTE ; S tart 08/30/21 at 12:56; Stop 08/30/21 at 12:56; Status DC Verapamil HCl (Verapamil) 5 mg STK-MED ONCE .ROUTE ; Start 08/30/21 at 12:56; Stop 08/30/21 at 12:56; Status DC Nitroglycerin (Nitroglycerin) 200 mcg STK-MED ONCE .ROUTE ; Start 08/30/21 at 12:56; Stop 08/30/21 at 12:56; Status DC Iodixanol (Visipaque 320) 100 ml STK-MED ONCE .ROUTE ; Start 08/30/21 at 12:57; Stop 08/30/21 at 12:57; Status DC Lidocaine HCl (Xylocaine-Mpf 1% 2ml Vial) 2 ml STK-MED ONCE .ROUTE ; Start 08/30/21 at 12:57; Stop 08/30/21 at 12:57; Status DC Heparin Sodium/ Sodium Chloride 1,000 ml @ As Directed STK-MED ONCE .ROUTE ; Start 08/30/21 at 12:57; Stop 08/30/21 at 12:57; Status DC Nitroglycerin (Nitroglycerin) 200 mcg 1X ONCE IART Last administered on 08/30/21at 13:34; Start 08/30/21 at 13:00; Stop 08/30/21 at 13:04; Status DC Verapamil HCl (Verapamil) 2.5 mg 1X ONCE IART Last administered on 08/30/21at 13:34; Start 08/30/21 at 13:00; Stop 08/30/21 at 13:04; Status DC Heparin Sodium (Porcine) (Heparin Sodium) 2,500 unit 1X ONCE IART Last administered on 08/30/21at 13:34; Start 08/30/21 at 13:00; Stop 08/30/21 at 13:04; Status DC Heparin Sodium/ Sodium Chloride (HEPARIN for ARTERIAL LINE FLUSH) 1,000 unit 1X ONCE IART Last administered on 08/30/21at 13:00; Start 08/30/21 at 13:00; Stop 08/30/21 at 13:04; Status DC Heparin Sodium/ Sodium Chloride (HEPARIN for ARTERIAL LINE FLUSH) 1,000 unit 1X ONCE IART Last administered on 08/30/21at 13:00; Start 08/30/21 at 13:00; Stop 08/30/21 at 13:04; Status DC Iodixanol (Visipaque 320) 100 ml 1X ONCE IART Last administered on 08/30/21at 13:55; Start 08/30/21 at 13:00; Stop 08/30/21 at 13:04; Status DC Lidocaine HCl (Xylocaine-Mpf 1% 2ml Vial) 2 ml 1X ONCE INJ Last administered on 08/30/21at 13:33; Start 08/30/21 at 13:00; Stop 08/30/21 at 13:04; Status DC Info (CONTRAST GIVEN -- Rx MONITORING) 1 each PRN DAILY PRN MC SEE COMMENTS; Start 08/30/21 at 13:15; Stop 09/01/21 at 13:14; Status DC Alteplase, Recombinant (Cathflo For Central Catheter Clearance) 1 mg 1X ONCE INT CAT Last administered on 08/31/21at 12:11; Start 08/31/21 at 10:45; Stop 08/31/21 at 10:46; Status DC Methylprednisolone Sodium Succinate (SOLU-Medrol 125MG VIAL) 60 mg Q8HRS IV Last administered on 09/04/21at 06:02; Start 09/01/21 at 14:00; Stop 09/04/21 at 08:19; Status DC Methylprednisolone Sodium Succinate (SOLU-Medrol 40MG VIAL) 40 mg Q8HRS IV Last administered on 09/06/21at 05:37; Start 09/04/21 at 14:00; Stop 09/06/21 at 10:03; Status DC Fentanyl Citrate (Fentanyl 2ml Vial) 25 mcg PRN Q5MIN PRN IVP MILD PAIN 1-3; Start 09/05/21 at 06:00; Stop 09/06/21 at 05:59; Status DC Fentanyl Citrate (Fentanyl 2ml Vial) 50 mcg PRN Q5MIN PRN IVP MODERATE PAIN 4- 6; Start 09/05/21 at 06:00; Stop 09/06/21 at 05:59; Status DC Morphine Sulfate (Morphine Sulfate) 1 mg PRN Q10MIN PRN IVP SEVERE PAIN 7-10; Start 09/05/21 at 06:00; Stop 09/06/21 at 05:59; Status DC Ringer's Solution 1,000 ml @ 30 mls/hr Q24H IV ; Start 09/05/21 at 06:00; Stop 09/05/21 at 17:59; Status DC Hydromorphone HCl (Dilaudid) 0.5 mg PRN Q10MIN PRN IVP SEVERE PAIN 7-10, 2nd CHOICE; Start 09/05/21 at 06:00; Stop 09/06/21 at 05:59; Status DC Prochlorperazine Edisylate (Compazine) 5 mg PACU PRN PRN IVP NAUSEA, MRX1; Start 09/05/21 at 06:00; Stop 09/06/21 at 05:59; Status DC Metoprolol Tartrate (Lopressor) 25 mg BID PO Last administered on 09/04/21at 20:59; Start 09/04/21 at 21:00; Stop 09/05/21 at 17:31; Status DC Norepinephrine Bitartrate 8 mg/ Dextrose 258 ml @ 0 mls/hr CONT IV ; Start 09/05/21 at 09:30; Status UNV Sodium Chloride 500 ml @ 500 mls/hr 1X ONCE IV Last administered on 09/05/21at 08:00; Start 09/05/21 at 08:00; Stop 09/05/21 at 12:11; Status DC Heparin Sodium/ Dextrose 250 ml @ 11.484 mls/ hr CONT PRN IV PER PROTOCOL Last administered on 09/05/21at 15:53; Start 09/05/21 at 14:45; Stop 09/11/21 at 14:42; Status DC Heparin Sodium (Porcine) (Heparin Sodium) 2,400 unit PRN Q6HRS PRN IV FOR UFH LEVEL LESS THAN 0.2; Start 09/05/21 at 14:45; Stop 09/11/21 at 14:42; Status DC Linezolid/Dextrose 300 ml @ 300 mls/hr Q12HR IV Last administered on 09/11/21at 21:01; Start 09/05/21 at 21:00 Vancomycin HCl (Vancomycin Oral Solution) 125 mg [id number] PO ; Start 09/05/21 at 17:30; Stop 09/06/21 at 14:59; Status DC Epinephrine HCl (EPINEPHrine SYRINGE) 1 mg STK-MED ONCE .ROUTE ; Start 09/06/21 at 07:11; Stop 09/06/21 at 07:12; Status DC Digoxin (Lanoxin) 250 mcg 1X ONCE IV Last administered on 09/06/21at 08:39; Start 09/06/21 at 08:30; Stop 09/06/21 at 08:31; Status DC Methylprednisolone Sodium Succinate (SOLU-Medrol 40MG VIAL) 40 mg Q12H IV Last administered on 09/10/21at 08:07; Start 09/06/21 at 21:00; Stop 09/10/21 at 13:16; Status DC Epinephrine HCl (EPINEPHrine SYRINGE) 1 mg STK-MED ONCE .ROUTE ; Start 09/05/21 at 17:00; Stop 09/07/21 at 08:29; Status DC Meropenem 500 mg/ Sodium Chloride 50 ml @ 100 mls/hr Q6HRS IV Last administered on 09/12/21at 05:40; Start 09/10/21 at 12:00 Daptomycin 550 mg/ Sodium Chloride 50 ml @ 100 mls/hr Q24H IV Last administered on 09/11/21at 09:43; Start 09/10/21 at 09:00 Pantoprazole Sodium (PROTONIX VIAL for IV PUSH) 40 mg BIDAC IVP Last administered on 09/11/21at 16:49; Start 09/10/21 at 16:30 Potassium Bicarbonate (Potassium Effervescent Tablet) 40 meq 1X ONCE PEG Last administered on 09/11/21at 07:36; Start 09/11/21 at 07:15; Stop 09/11/21 at 07:22; Status DC Fentanyl Citrate (Fentanyl 2ml Vial) 25 mcg PRN Q5MIN PRN IVP MILD PAIN 1-3; Start 09/13/21 at 06:00; Stop 09/14/21 at 05:59 Fentanyl Citrate (Fentanyl 2ml Vial) 50 mcg PRN Q5MIN PRN IVP MODERATE PAIN 4- 6; Start 09/13/21 at 06:00; Stop 09/14/21 at 05:59 Morphine Sulfate (Morphine Sulfate) 1 mg PRN Q10MIN PRN IVP SEVERE PAIN 7-10; Start 09/13/21 at 06:00; Stop 09/14/21 at 05:59 Ringer's Solution 1,000 ml @ 30 mls/hr Q24H IV ; Start 09/13/21 at 06:00; Stop 09/13/21 at 17:59 Hydromorphone HCl (Dilaudid) 0.5 mg PRN Q10MIN PRN IVP SEVERE PAIN 7-10, 2nd CHOICE; Start 09/13/21 at 06:00; Stop 09/14/21 at 05:59 Prochlorperazine Edisylate (Compazine) 5 mg PACU PRN PRN IVP NAUSEA, MRX1; Start 09/13/21 at 06:00; Stop 09/14/21 at 05:59 Vitals/I & O Vital Sign - Last 24 Hours 09/11/21 09/11/21 09/11/21 09/11/21 09:12 10:00 11:00 11:53 Pulse 68 68 B/P (MAP) 101/58 101/61 Pulse Ox 100 100 99 100 O2 Delivery Ventilator Ventilator Ventilator Ventilator 09/11/21 09/11/21 09/11/21 09/11/21 12:00 13:00 14:00 15:00 Temp 98.6 98.6 Pulse 78 86 85 86 B/P (MAP) 127/69 131/66 129/73 119/73 Pulse Ox 99 98 98 98 O2 Delivery Ventilator Ventilator Ventilator Ventilator 09/11/21 09/11/21 09/11/21 09/11/21 16:00 16:01 17:00 18:00 Temp 98.4 98.4 Pulse 93 88 91 B/P (MAP) 129/73 131/75 139/74 Pulse Ox 98 97 98 98 O2 Delivery Ventilator Ventilator Ventilator Ventilator 09/11/21 09/11/21 09/11/21 09/11/21 19:00 19:50 20:00 20:00 Temp 98.2 98.2 Pulse 93 92 B/P (MAP) 140/78 121/71 Pulse Ox 98 98 99 O2 Delivery Ventilator Ventilator Mechanical Ventilator Ventilator 09/11/21 09/11/21 09/11/21 09/11/21 21:00 22:00 23:00 23:59 Pulse 89 87 95 84 Resp B/P (MAP) 119/58 145/68 133/78 107/60 Pulse Ox 98 98 98 95 O2 Delivery Ventilator Ventilator Ventilator Ventilator 09/12/21 09/12/21 09/12/21 09/12/21 00:25 01:21 02:10 03:00 Temp 98.3 98.3 Pulse 91 87 86 Resp B/P (MAP) 108/62 139/69 137/71 Pulse Ox 95 95 98 95 O2 Delivery Ventilator Ventilator Ventilator Ventilator 09/12/21 09/12/21 09/12/21 09/12/21 04:00 04:05 05:00 06:00 Temp 98.9 98.9 Pulse 73 90 85 Resp B/P (MAP) 101/57 125/68 132/67 Pulse Ox 96 95 96 98 O2 Delivery Ventilator Ventilator Ventilator Ventilator 09/12/21 09/12/21 09/12/21 09/12/21 07:00 08:00 08:00 08:46 Temp 100.7 100.7 Pulse 90 93 Resp B/P (MAP) 147/69 149/75 Pulse Ox 93 93 91 O2 Delivery Ventilator Mechanical Ventilator Ventilator Ventilator l Intake and Output 09/11/21 09/11/21 09/12/21 15:00 23:00 07:00 Intake Total 650 ml 1619 ml 775 ml Output Total 475 ml 500 ml 340 ml Balance 175 ml 1119 ml 435 ml Justicifation of Admission Dx: Justifications for Admission: Justification of Admission Dx: N/A DEREK TELLEZ MD Sep 12, 2021 09:10
--- NOTE | 2021-09-12 09:37 | RAD ---
AP chest. HISTORY: Decreased lung sounds, patient on ventilator AP view was taken of the chest. Endotracheal tube is unchanged at the level clavicles. NG tube extend s into the stomach. There is consolidation the left lower lobe with mild worsening compared to the pr ior study from September 10. There are mild diffuse right lung infiltrates with mild worsening. Right PICC line extends to the superior vena cava. IMPRESSION: 1. Mild worsening left lower lobe consolidating infiltrate. 2. Mild worsening mild hazy right lung infiltrates. 3. Endotracheal tube, NG tube and PICC line unchanged. Electronically signed by: Erasto Jack MD (09/12/2021 9:35 AM) [facility]
--- NOTE | 2021-09-12 10:12 | PDOC ---
G I PROGRESS NOTE Subjective Sedated on ventilator. Objective Still has rectal tube. Physical Exam Lungs coarse bilaterally. "Jerking" respirations. RRR Abdomen soft, not distended. Less dark stools in rectal tube. Review of Relevant I have reviewed the following items shey (where applicable) has been applied. Labs Laboratory Tests Test 09/11/21 06:00 09/11/21 13:45 09/12/21 05:50 White Blood Count 28.3 x10^3/uL (4.0-11.0) 28.1 x10^3/uL (4.0-11.0) 20.0 x10^3/uL (4.0-11.0) Red Blood Count 2.46 x10^6/uL (4.30-5.70) 2.53 x10^6/uL (4.30-5.70) 2.31 x10^6/uL (4.30-5.70) Hemoglobin 7.2 g/dL (13.0-17.5) 7.6 g/dL (13.0-17.5) 7.0 g/dL (13.0-17.5) Hematocrit 21.3 % (39.0-53.0) 22.7 % (39.0-53.0) 21.5 % (39.0-53.0) Mean Corpuscular Volume 87 fL (79-100) 90 fL (79-100) 93 fL (79-100) Mean Corpuscular Hemoglobin 29 pg (25-35) 30 pg (25-35) 30 pg (25-35) Mean Corpuscular Hemoglobin Concent 34 g/dL (31-37) 34 g/dL (31-37) 33 g/dL (31-37) Red Cell Distribution Width 16.1 % (11.5-14.5) 17.0 % (11.5-14.5) 17.6 % (11.5-14.5) Platelet Count 214 x10^3/uL (140-400) 208 x10^3/uL (140-400) 170 x10^3/uL (140-400) Neutrophils (%) (Auto) 94 % (31-73) 94 % (31-73) Lymphocytes (%) (Auto) 3 % (24-48) 3 % (24-48) Monocytes (%) (Auto) 3 % (0-9) 2 % (0-9) Eosinophils (%) (Auto) 0 % (0-3) 1 % (0-3) Basophils (%) (Auto) 0 % (0-3) 0 % (0-3) Neutrophils # (Auto) 26.6 x10^3/uL (1.8-7.7) 18.7 x10^3/uL (1.8-7.7) Lymphocytes # (Auto) 0.8 x10^3/uL (1.0-4.8) 0.5 x10^3/uL (1.0-4.8) Monocytes # (Auto) 0.8 x10^3/uL (0.0-1.1) 0.5 x10^3/uL (0.0-1.1) Eosinophils # (Auto) 0.1 x10^3/uL (0.0-0.7) 0.3 x10^3/uL (0.0-0.7) Basophils # (Auto) 0.0 x10^3/uL (0.0-0.2) 0.0 x10^3/uL (0.0-0.2) Sodium Level 137 mmol/L (136-145) 139 mmol/L (136-145) Potassium Level 3.3 mmol/L (3.5-5.1) 4.1 mmol/L (3.5-5.1) Chloride Level 102 mmol/L (98-107) 100 mmol/L (98-107) Carbon Dioxide Level 33 mmol/L (21-32) 33 mmol/L (21-32) Anion Gap 2 (6-14) 6 (6-14) Blood Urea Nitrogen 17 mg/dL (8-26) 14 mg/dL (8-26) Creatinine 0.6 mg/dL (0.7-1.3) 0.6 mg/dL (0.7-1.3) Estimated GFR (Cockcroft-Gault) 136.1 136.1 BUN/Creatinine Ratio 28 (6-20) 23 (6-20) Glucose Level 149 mg/dL (70-99) 112 mg/dL (70-99) Calcium Level 7.9 mg/dL (8.5-10.1) 7.7 mg/dL (8.5-10.1) Total Bilirubin 0.4 mg/dL (0.2-1.0) 0.5 mg/dL (0.2-1.0) Aspartate Amino Transf (AST/SGOT) 39 U/L (15-37) 42 U/L (15-37) Alanine Aminotransferase (ALT/SGPT) 40 U/L (16-63) 42 U/L (16-63) Alkaline Phosphatase 105 U/L (46-116) 112 U/L (46-116) Total Protein 5.2 g/dL (6.4-8.2) 5.4 g/dL (6.4-8.2) Albumin 2.0 g/dL (3.4-5.0) 1.8 g/dL (3.4-5.0) Albumin/Globulin Ratio 0.6 (1.0-1.7) 0.5 (1.0-1.7) Laboratory Tests Test 09/11/21 13:45 09/12/21 05:50 White Blood Count 28.1 x10^3/uL (4.0-11.0) 20.0 x10^3/uL (4.0-11.0) Red Blood Count 2.53 x10^6/uL (4.30-5.70) 2.31 x10^6/uL (4.30-5.70) Hemoglobin 7.6 g/dL (13.0-17.5) 7.0 g/dL (13.0-17.5) Hematocrit 22.7 % (39.0-53.0) 21.5 % (39.0-53.0) Mean Corpuscular Volume 90 fL (79-100) 93 fL (79-100) Mean Corpuscular Hemoglobin 30 pg (25-35) 30 pg (25-35) Mean Corpuscular Hemoglobin Concent 34 g/dL (31-37) 33 g/dL (31-37) Red Cell Distribution Width 17.0 % (11.5-14.5) 17.6 % (11.5-14.5) Platelet Count 208 x10^3/uL (140-400) 170 x10^3/uL (140-400) Neutrophils (%) (Auto) 94 % (31-73) Lymphocytes (%) (Auto) 3 % (24-48) Monocytes (%) (Auto) 2 % (0-9) Eosinophils (%) (Auto) 1 % (0-3) Basophils (%) (Auto) 0 % (0-3) Neutrophils # (Auto) 18.7 x10^3/uL (1.8-7.7) Lymphocytes # (Auto) 0.5 x10^3/uL (1.0-4.8) Monocytes # (Auto) 0.5 x10^3/uL (0.0-1.1) Eosinophils # (Auto) 0.3 x10^3/uL (0.0-0.7) Basophils # (Auto) 0.0 x10^3/uL (0.0-0.2) Sodium Level 139 mmol/L (136-145) Potassium Level 4.1 mmol/L (3.5-5.1) Chloride Level 100 mmol/L (98-107) Carbon Dioxide Level 33 mmol/L (21-32) Anion Gap 6 (6-14) Blood Urea Nitrogen 14 mg/dL (8-26) Creatinine 0.6 mg/dL (0.7-1.3) Estimated GFR (Cockcroft-Gault) 136.1 BUN/Creatinine Ratio 23 (6-20) Glucose Level 112 mg/dL (70-99) Calcium Level 7.7 mg/dL (8.5-10.1) Total Bilirubin 0.5 mg/dL (0.2-1.0) Aspartate Amino Transf (AST/SGOT) 42 U/L (15-37) Alanine Aminotransferase (ALT/SGPT) 42 U/L (16-63) Alkaline Phosphatase 112 U/L (46-116) Total Protein 5.4 g/dL (6.4-8.2) Albumin 1.8 g/dL (3.4-5.0) Albumin/Globulin Ratio 0.5 (1.0-1.7) Microbiology 09/05/21 Urine Culture - Final, Complete 09/05/21 Blood Culture - Final, Complete NO GROWTH AFTER 5 DAYS 08/23/21 Respiratory Culture Gram Stain - Final, Complete 08/23/21 Respiratory Culture - Final, Complete Hemoglobin low but stable. Medications Vitals/I & O Vital Sign - Last 24 Hours 09/11/21 09/11/21 09/11/21 3/1/22 11:00 11:53 12:00 13:00 Temp 98.6 98.6 Pulse 68 78 86 Resp B/P (MAP) 101/61 127/69 131/66 Pulse Ox 99 100 99 98 O2 Delivery Ventilator Ventilator Ventilator Ventilator 09/11/21 09/11/21 09/11/21 09/11/21 14:00 15:00 16:00 16:01 Temp 98.4 98.4 Pulse 85 86 93 B/P (MAP) 129/73 119/73 129/73 Pulse Ox 98 98 98 97 O2 Delivery Ventilator Ventilator Ventilator Ventilator 09/11/21 09/11/21 09/11/21 09/11/21 17:00 18:00 19:00 19:50 Pulse 88 91 93 B/P (MAP) 131/75 139/74 140/78 Pulse Ox 98 98 98 98 O2 Delivery Ventilator Ventilator Ventilator Ventilator 09/11/21 09/11/21 09/11/21 09/11/21 20:00 20:00 21:00 22:00 Temp 98.2 98.2 Pulse 92 89 87 Resp B/P (MAP) 121/71 119/58 145/68 Pulse Ox 99 98 98 O2 Delivery Mechanical Ventilator Ventilator Ventilator Ventilator 09/11/21 09/11/21 09/12/21 09/12/21 23:00 23:59 00:25 01:21 Pulse 95 84 91 Resp B/P (MAP) 133/78 107/60 108/62 Pulse Ox 98 95 95 95 O2 Delivery Ventilator Ventilator Ventilator Ventilator 09/12/21 09/12/21 09/12/21 09/12/21 02:10 03:00 04:00 04:05 Temp 98.3 98.9 98.3 98.9 Pulse 87 86 73 Resp B/P (MAP) 139/69 137/71 101/57 Pulse Ox 98 95 96 95 O2 Delivery Ventilator Ventilator Ventilator Ventilator 09/12/21 09/12/21 09/12/21 09/12/21 05:00 06:00 07:00 08:00 Pulse 90 85 90 Resp B/P (MAP) 125/68 132/67 147/69 Pulse Ox 96 98 93 O2 Delivery Ventilator Ventilator Ventilator Mechanical Ventilator 09/12/21 09/12/21 09/12/21 09/12/21 08:00 08:46 09:00 09:42 Temp 100.7 100.7 100.7 100.7 Pulse 93 101 101 Resp 22 22 22 B/P (MAP) 149/75 145/71 145/86 Pulse Ox 93 91 91 O2 Delivery Ventilator Ventilator Ventilator 09/12/21 09:42 Temp 100.7 100.7 Pulse 101 Resp 22 B/P (MAP) 145/86 Intake and Output 09/11/21 09/11/21 09/12/21 15:00 23:00 07:00 Intake Total 650 ml 1619 ml 775 ml Output Total 475 ml 500 ml 340 ml Balance 175 ml 1119 ml 435 ml Assessment OP dysphagia/neurologic sequelae of code/anoxic encephalopathy. Doesn't seem much chance for functional recovery. SO seems not to fully grasp. Melena seems to be clearing some. Plan of Care Note Continue as now. Post-trach will consider PEG. Justicifation of Admission Dx: Justifications for Admission: Justification of Admission Dx: N/A MANUEL WARD MD Sep 12, 2021 10:12
--- NOTE | 2021-09-12 10:34 | PDOC ---
TETO DIAZ ESCROW SECRETARY 09/12/21 1034: CARDIO Progress Notes Date and Time Date of Service 09/12/21 Time of Evaluation 1030 Subjective Subjective: Other (intubated ) Vitals Vitals Vital Signs Date Time Temp Pulse Resp B/P (MAP) Pulse Ox O2 Delivery O2 Flow Rate FiO2 09/12/21 09:42 100.7 101 22 145/86 100.7 09/12/21 09:00 91 Ventilator Weight Weight [ ] Input and Output Intake and Output Intake and Output 09/12/21 07:00 Intake Total 3044 ml Output Total 1315 ml Balance 1729 ml IV Total 1566 ml Tube Feeding 1203 ml Other 275 ml Output Urine Total 1275 ml Gastric Drainage Total 40 ml Laboratory Labs Laboratory Tests Test 09/11/21 13:45 09/12/21 05:50 White Blood Count 28.1 x10^3/uL (4.0-11.0) 20.0 x10^3/uL (4.0-11.0) Red Blood Count 2.53 x10^6/uL (4.30-5.70) 2.31 x10^6/uL (4.30-5.70) Hemoglobin 7.6 g/dL (13.0-17.5) 7.0 g/dL (13.0-17.5) Hematocrit 22.7 % (39.0-53.0) 21.5 % (39.0-53.0) Mean Corpuscular Volume 90 fL (79-100) 93 fL (79-100) Mean Corpuscular Hemoglobin 30 pg (25-35) 30 pg (25-35) Mean Corpuscular Hemoglobin Concent 34 g/dL (31-37) 33 g/dL (31-37) Red Cell Distribution Width 17.0 % (11.5-14.5) 17.6 % (11.5-14.5) Platelet Count 208 x10^3/uL (140-400) 170 x10^3/uL (140-400) Neutrophils (%) (Auto) 94 % (31-73) Lymphocytes (%) (Auto) 3 % (24-48) Monocytes (%) (Auto) 2 % (0-9) Eosinophils (%) (Auto) 1 % (0-3) Basophils (%) (Auto) 0 % (0-3) Neutrophils # (Auto) 18.7 x10^3/uL (1.8-7.7) Lymphocytes # (Auto) 0.5 x10^3/uL (1.0-4.8) Monocytes # (Auto) 0.5 x10^3/uL (0.0-1.1) Eosinophils # (Auto) 0.3 x10^3/uL (0.0-0.7) Basophils # (Auto) 0.0 x10^3/uL (0.0-0.2) Sodium Level 139 mmol/L (136-145) Potassium Level 4.1 mmol/L (3.5-5.1) Chloride Level 100 mmol/L (98-107) Carbon Dioxide Level 33 mmol/L (21-32) Anion Gap 6 (6-14) Blood Urea Nitrogen 14 mg/dL (8-26) Creatinine 0.6 mg/dL (0.7-1.3) Estimated GFR (Cockcroft-Gault) 136.1 BUN/Creatinine Ratio 23 (6-20) Glucose Level 112 mg/dL (70-99) Calcium Level 7.7 mg/dL (8.5-10.1) Total Bilirubin 0.5 mg/dL (0.2-1.0) Aspartate Amino Transf (AST/SGOT) 42 U/L (15-37) Alanine Aminotransferase (ALT/SGPT) 42 U/L (16-63) Alkaline Phosphatase 112 U/L (46-116) Total Protein 5.4 g/dL (6.4-8.2) Albumin 1.8 g/dL (3.4-5.0) Albumin/Globulin Ratio 0.5 (1.0-1.7) Microbiology Micro Microbiology 09/05/21 Urine Culture - Final, Complete 09/05/21 Blood Culture - Final, Complete NO GROWTH AFTER 5 DAYS 08/23/21 Respiratory Culture Gram Stain - Final, Complete 08/23/21 Respiratory Culture - Final, Complete Physical Exam HEENT: Other (supple ) Chest: Symmetric LUNGS: Other (MV) Heart: RRR (SR ) Abdomen: Other (soft ) Extremities: Other (no edema. Eschar to left foot, second toe) Neurology: other (sedated ) Assessment Assessment 1. S/P cardiac arrest; multifactorial. Noted with VT shock x1. approximately <3 min to ROSC. 2. Acute on chronic respiratory failure with COVID PNA, ARDS. unable to be weaned from vent. CXR with worsening consolidation, PNA 3. CAD, inferior STEMI with embolic disease. Repeat LHC showed recanalized RCA with brisk blood flow. Residual proximal 70% RCA stenosis with significant ectasia of the RCA 4. Cardiogenic shock; IABP removed. 5. Acute on chronic systolic CHF, ICM: EF at 35-40%. 6. AFIB RVR: presently SR. 7. Bradyarrhythmia; resolved. 8. Hyperlipidemia; statin 9. Black distal phalanx to left 2nd toe: possibly r/t to covid-19. no si gnificnat PAD per duplex 10. Leukocytosis, fevers, sepsis. CT abdomen/pelvis with gallbladder distention. US planned. Remains of pressor support. 11. Anemia; hgb drift to 7.0. s/p transfusion Recommendations Continue aspirin only Withhold resumption of heparin drip given the anemia requiring transfusion. Amiodarone for rhythm maintenance Pressor support as warranted Continue ASA/statin. Await tracheostomy placement and PEG tube placement Ongoing support Justicifation of Admission Dx: Justifications for Admission: Justification of Admission Dx: N/A TEDDY ANGLIN MD 09/12/21 1658: CARDIO Progress Notes Plan Plan Patient seen and examined. Agree with above nurse practitioner note. Discussed with at bedside. Stable from a cardiac standpoint but unfortunately has had worsening respiratory status with increasing oxygen requirements likely in the setting of a new infection. Family currently is not interested in any palliative care and would like full aggressive measures. Continue supportive care for now. TETO DIAZ APRN Sep 12, 2021 10:34 TEDDY ANGLIN MD Sep 12, 2021 16:58
[2021-09-12 10:50] LABS: BASE EXCESS ABG 8 mmol/L (-3-3); HCO3 ABG 34 mmol/L (21-28); PCO2 ABG 55 mmHg (35-46); PO2 ABG 48 mmHg (65-108); SAT O2 ABG 83 % (92-99)
[2021-09-12 10:51] LABS: FIO2 ABG 40% AC 22 400 5
[2021-09-12] MEDS: AMIODARONE HCL 200 MG TABLET. PO SCH (10:58)
[2021-09-12] MEDS: levETIRAcetam 500 MG/5 ML ORAL SOLUTION. PEG SCH ×2 (10:58→21:35)
[2021-09-12] MEDS: DAPTOmycin (GENERIC) IVPB 550 MG in IV NORMAL SALINE 50ML 50 ML IV SCH (10:59)
--- NOTE | 2021-09-12 11:04 | PDOC ---
PULMONARY PROGRESS NOTES DATE: 09/12/21 TIME: 11:01 Subjective Remains on assist control mode. Continues to have fever. Increased oxygen requirement. Vitals Vital Signs Date Time Temp Pulse Resp B/P (MAP) Pulse Ox O2 Delivery O2 Flow Rate FiO2 09/12/21 10:00 100 22 140/69 96 Ventilator 09/12/21 09:42 100.7 100.7 Comments ros unable to obtain sedated on vent HEENT: Other (nc at perrl nose clear orally intubated neck no lad no thyromegaly) Lungs: Clear Cardiovascular: S1, S2 Abdomen: Soft, Non-tender Extremities: No Edema Skin: Warm Labs Laboratory Tests Test 09/11/21 06:00 09/11/21 13:45 09/12/21 05:50 09/12/21 10:48 White Blood Count 28.3 x10^3/uL (4.0-11.0) 28.1 x10^3/uL (4.0-11.0) 20.0 x10^3/uL (4.0-11.0) Red Blood Count 2.46 x10^6/uL (4.30-5.70) 2.53 x10^6/uL (4.30-5.70) 2.31 x10^6/uL (4.30-5.70) Hemoglobin 7.2 g/dL (13.0-17.5) 7.6 g/dL (13.0-17.5) 7.0 g/dL (13.0-17.5) Hematocrit 21.3 % (39.0-53.0) 22.7 % (39.0-53.0) 21.5 % (39.0-53.0) Mean Corpuscular Volume 87 fL (79-100) 90 fL (79-100) 93 fL (79-100) Mean Corpuscular Hemoglobin 29 pg (25-35) 30 pg (25-35) 30 pg (25-35) Mean Corpuscular Hemoglobin Concent 34 g/dL (31-37) 34 g/dL (31-37) 33 g/dL (31-37) Red Cell Distribution Width 16.1 % (11.5-14.5) 17.0 % (11.5-14.5) 17.6 % (11.5-14.5) Platelet Count 214 x10^3/uL (140-400) 208 x10^3/uL (140-400) 170 x10^3/uL (140-400) Neutrophils (%) (Auto) 94 % (31-73) 94 % (31-73) Lymphocytes (%) (Auto) 3 % (24-48) 3 % (24-48) Monocytes (%) (Auto) 3 % (0-9) 2 % (0-9) Eosinophils (%) (Auto) 0 % (0-3) 1 % (0-3) Basophils (%) (Auto) 0 % (0-3) 0 % (0-3) Neutrophils # (Auto) 26.6 x10^3/uL (1.8-7.7) 18.7 x10^3/uL (1.8-7.7) Lymphocytes # (Auto) 0.8 x10^3/uL (1.0-4.8) 0.5 x10^3/uL (1.0-4.8) Monocytes # (Auto) 0.8 x10^3/uL (0.0-1.1) 0.5 x10^3/uL (0.0-1.1) Eosinophils # (Auto) 0.1 x10^3/uL (0.0-0.7) 0.3 x10^3/uL (0.0-0.7) Basophils # (Auto) 0.0 x10^3/uL (0.0-0.2) 0.0 x10^3/uL (0.0-0.2) Sodium Level 137 mmol/L (136-145) 139 mmol/L (136-145) Potassium Level 3.3 mmol/L (3.5-5.1) 4.1 mmol/L (3.5-5.1) Chloride Level 102 mmol/L (98-107) 100 mmol/L (98-107) Carbon Dioxide Level 33 mmol/L (21-32) 33 mmol/L (21-32) Anion Gap 2 (6-14) 6 (6-14) Blood Urea Nitrogen 17 mg/dL (8-26) 14 mg/dL (8-26) Creatinine 0.6 mg/dL (0.7-1.3) 0.6 mg/dL (0.7-1.3) Estimated GFR (Cockcroft-Gault) 136.1 136.1 BUN/Creatinine Ratio 28 (6-20) 23 (6-20) Glucose Level 149 mg/dL (70-99) 112 mg/dL (70-99) Calcium Level 7.9 mg/dL (8.5-10.1) 7.7 mg/dL (8.5-10.1) Total Bilirubin 0.4 mg/dL (0.2-1.0) 0.5 mg/dL (0.2-1.0) Aspartate Amino Transf (AST/SGOT) 39 U/L (15-37) 42 U/L (15-37) Alanine Aminotransferase (ALT/SGPT) 40 U/L (16-63) 42 U/L (16-63) Alkaline Phosphatase 105 U/L (46-116) 112 U/L (46-116) Total Protein 5.2 g/dL (6.4-8.2) 5.4 g/dL (6.4-8.2) Albumin 2.0 g/dL (3.4-5.0) 1.8 g/dL (3.4-5.0) Albumin/Globulin Ratio 0.6 (1.0-1.7) 0.5 (1.0-1.7) O2 Saturation 83 % (92-99) Arterial Blood pH 7.41 (7.35-7.45) Arterial Blood pCO2 at Patient Temp 55 mmHg (35-46) Arterial Blood pO2 at Patient Temp 48 mmHg (65-108) Arterial Blood HCO3 34 mmol/L (21-28) Arterial Blood Base Excess 8 mmol/L (-3-3) FiO2 40% ac 22 400 5 Laboratory Tests Test 09/11/21 13:45 09/12/21 05:50 09/12/21 10:48 White Blood Count 28.1 x10^3/uL (4.0-11.0) 20.0 x10^3/uL (4.0-11.0) Red Blood Count 2.53 x10^6/uL (4.30-5.70) 2.31 x10^6/uL (4.30-5.70) Hemoglobin 7.6 g/dL (13.0-17.5) 7.0 g/dL (13.0-17.5) Hematocrit 22.7 % (39.0-53.0) 21.5 % (39.0-53.0) Mean Corpuscular Volume 90 fL (79-100) 93 fL (79-100) Mean Corpuscular Hemoglobin 30 pg (25-35) 30 pg (25-35) Mean Corpuscular Hemoglobin Concent 34 g/dL (31-37) 33 g/dL (31-37) Red Cell Distribution Width 17.0 % (11.5-14.5) 17.6 % (11.5-14.5) Platelet Count 208 x10^3/uL (140-400) 170 x10^3/uL (140-400) Neutrophils (%) (Auto) 94 % (31-73) Lymphocytes (%) (Auto) 3 % (24-48) Monocytes (%) (Auto) 2 % (0-9) Eosinophils (%) (Auto) 1 % (0-3) Basophils (%) (Auto) 0 % (0-3) Neutrophils # (Auto) 18.7 x10^3/uL (1.8-7.7) Lymphocytes # (Auto) 0.5 x10^3/uL (1.0-4.8) Monocytes # (Auto) 0.5 x10^3/uL (0.0-1.1) Eosinophils # (Auto) 0.3 x10^3/uL (0.0-0.7) Basophils # (Auto) 0.0 x10^3/uL (0.0-0.2) Sodium Level 139 mmol/L (136-145) Potassium Level 4.1 mmol/L (3.5-5.1) Chloride Level 100 mmol/L (98-107) Carbon Dioxide Level 33 mmol/L (21-32) Anion Gap 6 (6-14) Blood Urea Nitrogen 14 mg/dL (8-26) Creatinine 0.6 mg/dL (0.7-1.3) Estimated GFR (Cockcroft-Gault) 136.1 BUN/Creatinine Ratio 23 (6-20) Glucose Level 112 mg/dL (70-99) Calcium Level 7.7 mg/dL (8.5-10.1) Total Bilirubin 0.5 mg/dL (0.2-1.0) Aspartate Amino Transf (AST/SGOT) 42 U/L (15-37) Alanine Aminotransferase (ALT/SGPT) 42 U/L (16-63) Alkaline Phosphatase 112 U/L (46-116) Total Protein 5.4 g/dL (6.4-8.2) Albumin 1.8 g/dL (3.4-5.0) Albumin/Globulin Ratio 0.5 (1.0-1.7) O2 Saturation 83 % (92-99) Arterial Blood pH 7.41 (7.35-7.45) Arterial Blood pCO2 at Patient Temp 55 mmHg (35-46) Arterial Blood pO2 at Patient Temp 48 mmHg (65-108) Arterial Blood HCO3 34 mmol/L (21-28) Arterial Blood Base Excess 8 mmol/L (-3-3) FiO2 40% ac 22 400 5 Comments Chest x-ray reviewed 09/12/2021. Diffuse bilateral interstitial infiltrates. Increased volume loss left lower lo be. CT chest abdomen and pelvis reviewed. Dated 09/10/2021 Impression: 1. Left lower lobe airspace consolidation superimposed on diffuse groundglass opacity with emphysematous and fibrotic change. Findings suspected to represent multifocal infectious process. 2. Infrarenal aortic aneurysm measuring 3.4 cm diameter. 3. Distended gallbladder without wall thickening. Correlate for right upper quadrant symptoms, consider acalculous cholecystitis in the setting of prolonged illness. Impression . 1. Acute hypoxic respiratory failure secondary to COVID-19 pneumonia, acute respiratory distress syndrome and possible underlying fibrosis and emphysema., Extubated 08/20, reintubated 08/23 status post CODE BLUE/semi-CODE BLUE on 09/[address] chest. Reviewed dated 09/10/2021. Left lower lobe consolidation versus atelectasis. Evidence of possible mild fibrosis. There is evidence of pneumatoceles related to Covid. 3. New sepsis. Continues to have fever. White cell count trending down. CT chest with left lower lobe consolidation, doubt the source of fever. CT abdomen with acalculous cholecystitis. Could be the source. 4. Suspected underlying severe chronic obstructive pulmonary disease. 5. COVID-19 viral pneumonia.--- Covid recovered 6. Abnormal chest x-ray with bilateral diffuse infiltrates related to COVID-19 viral pneumonia.--- Covid recovered 7. Patient reintubated 08/23, status post CODE BLUE 8. Abnormal x-ray from 08/15, possible ARDS, possible pulmonary edema, possible aspiration 9. ST elevation PR status post intra-aortic balloon pump--08/23/2021 10. Emergent cardiac catheterization revealing 90% stenotic lesion 11. Echocardiogram revealing ejection fraction of 35 to 40% pulmonary artery pressure of 34 inferior septal wall hypokinesis 12. Bacteremia Staph epidermidis 13. Necrotic toe left second, suspect related COVID Cardiac catheterization 08/30 Due to large vessel size a decision was made to defer stenting at this time for continued medical therapy. After the patient is fully extubated and depending on symptoms could consider PCI. Conclusion 1. Recanalized right coronary artery with brisk blood flow. 2. Residual proximal 70% RCA stenosis with significant ectasia of the RCA measuring up to 6.25 mm. 3. Normal left ventricular filling pressures. Recommendations 1. Continue aspirin, Plavix and heparin drip. 2. Continue plans for extubation. 3. After patient is extubated and stabilized depending on symptoms we will consider high risk PCI with specialized MegaTron stent given the large vessel size. Plan . Updated 09/12 Continue present assist-control mode. Oxygen requirement has increased. We will increase the FiO2 to 50%. This is likely secondary to new sepsis and ARDS along with suspected left lower lobe pneumonia. Tracheotomy placed on hold because of leukocytosis. Trending down. Hopefully trach later this week Off steroids Broad-spectrum antibiotics per ID Discussed with at the bedside ABG noted Blood cultures after 4 days negative. C. difficile negative I doubt left lower lobe atelectasis/consolidation is the etiology for marked leukocytosis. Acalculous cholecystitis could be the source. Follow GI recommendations. Discussed with RN RT Will reach out to the son about addressing the goals of care again. Critical care time 30 minutes Updated 09/11 Continue present assist-control mode. Oxygen requirement is at 40%. Tracheotomy placed on hold because of leukocytosis. Trending down. Hopefully trach later this week Off steroids Broad-spectrum antibiotics per ID Discussed with at the bedside ABG noted Blood cultures after 4 days negative. C. difficile negative I doubt left lower lobe atelectasis/consolidation is the etiology for marked leukocytosis. Discussed with RN RT and discussed with patient's at the bedside. Critical care time 30 minutes Updated 09/10 Tracheotomy placed on hold because of leukocytosis Decrease steroids Antibiotics per ID Discussed with at the bedside ABG noted Blood cultures after 4 days negative 09/09 cont vent support setting reviewed, ct of head no acute abnl elevate hob Repeat LHC showed recanalized right coronary artery with brisk blood flow. Residual proximal 70% RCA stenosis with significant ectasia of the RCA measuring up to 6.25 mm. levo to keep map 60 abx per id trach next week overall prognosis poor discussed w george 09/08 cont vent support setting reviewed, re consult neuro elevate hob Repeat LHC showed recanalized right coronary artery with brisk blood flow. Residual proximal 70% RCA stenosis with significant ectasia of the RCA measuring up to 6.25 mm. Patient currently off pressors no dose change per cardiology abx per id trach next week discussed w MICHELLE Lujan MD Sep 12, 2021 11:04
--- NOTE | 2021-09-12 11:20 | PDOC ---
Infectious Disease Note Subjective: Subjective Patient Intubated febrile at 100.7 Vital Signs: Vital Signs Vital Signs Date Time Temp Pulse Resp B/P (MAP) Pulse Ox O2 Delivery O2 Flow Rate FiO2 09/12/21 11:00 102 22 121/62 98 Ventilator 09/12/21 09:42 100.7 100.7 Physical Exam: PHYSICAL EXAM GENERAL: Intubated HEENT: No conjunctival petechia. ETT present, OGT present LUNGS: Coarse breath sounds in the bases, otherwise clear. HEART: S1, S2, irregular. I could not appreciate any murmurs. ABDOMEN: Soft, nontender, nondistended. Bowel sounds present. GENITOURINARY: Berumen in place. EXTREMITIES: Present no cyanosis. Right groin catheter removed, Right upper extremity PICC line placed on 08/23/2021.Lt 2nd digit black DERMATOLOGIC: Warm, dry, no generalized rash. NEUROLOGIC: Unable to assess. Medications: Inpatient Meds: Medications reviewed. Labs: Lab Laboratory Tests Test 09/11/21 13:45 09/12/21 05:50 09/12/21 10:48 White Blood Count 28.1 x10^3/uL (4.0-11.0) 20.0 x10^3/uL (4.0-11.0) Red Blood Count 2.53 x10^6/uL (4.30-5.70) 2.31 x10^6/uL (4.30-5.70) Hemoglobin 7.6 g/dL (13.0-17.5) 7.0 g/dL (13.0-17.5) Hematocrit 22.7 % (39.0-53.0) 21.5 % (39.0-53.0) Mean Corpuscular Volume 90 fL (79-100) 93 fL (79-100) Mean Corpuscular Hemoglobin 30 pg (25-35) 30 pg (25-35) Mean Corpuscular Hemoglobin Concent 34 g/dL (31-37) 33 g/dL (31-37) Red Cell Distribution Width 17.0 % (11.5-14.5) 17.6 % (11.5-14.5) Platelet Count 208 x10^3/uL (140-400) 170 x10^3/uL (140-400) Neutrophils (%) (Auto) 94 % (31-73) Lymphocytes (%) (Auto) 3 % (24-48) Monocytes (%) (Auto) 2 % (0-9) Eosinophils (%) (Auto) 1 % (0-3) Basophils (%) (Auto) 0 % (0-3) Neutrophils # (Auto) 18.7 x10^3/uL (1.8-7.7) Lymphocytes # (Auto) 0.5 x10^3/uL (1.0-4.8) Monocytes # (Auto) 0.5 x10^3/uL (0.0-1.1) Eosinophils # (Auto) 0.3 x10^3/uL (0.0-0.7) Basophils # (Auto) 0.0 x10^3/uL (0.0-0.2) Sodium Level 139 mmol/L (136-145) Potassium Level 4.1 mmol/L (3.5-5.1) Chloride Level 100 mmol/L (98-107) Carbon Dioxide Level 33 mmol/L (21-32) Anion Gap 6 (6-14) Blood Urea Nitrogen 14 mg/dL (8-26) Creatinine 0.6 mg/dL (0.7-1.3) Estimated GFR (Cockcroft-Gault) 136.1 BUN/Creatinine Ratio 23 (6-20) Glucose Level 112 mg/dL (70-99) Calcium Level 7.7 mg/dL (8.5-10.1) Total Bilirubin 0.5 mg/dL (0.2-1.0) Aspartate Amino Transf (AST/SGOT) 42 U/L (15-37) Alanine Aminotransferase (ALT/SGPT) 42 U/L (16-63) Alkaline Phosphatase 112 U/L (46-116) Total Protein 5.4 g/dL (6.4-8.2) Albumin 1.8 g/dL (3.4-5.0) Albumin/Globulin Ratio 0.5 (1.0-1.7) O2 Saturation 83 % (92-99) Arterial Blood pH 7.41 (7.35-7.45) Arterial Blood pCO2 at Patient Temp 55 mmHg (35-46) Arterial Blood pO2 at Patient Temp 48 mmHg (65-108) Arterial Blood HCO3 34 mmol/L (21-28) Arterial Blood Base Excess 8 mmol/L (-3-3) FiO2 40% ac 22 400 5 Micro PATIENT: JAYY JEFFRIES ACCOUNT: [id number] : 1955 LOCATION: [facility] AGE: 65 SEX: M EXAM STATUS: ADM IN ORD. PHYSICIAN: SOFIA LOWERY MD REASON: Leukocytosis PROCEDURE: CT CHEST ABDOMEN PELVIS WO CT CHEST_ABDOMEN_ AND PELVIS WITHOUT CONTRAST History: Leukocytosis. Comparison: CTA chest 07/29/2021. Technique: CT of the chest, abdomen and pelvis with intravenous contrast. Findings: Chest: Devices: Endotracheal tube terminates in the upper thoracic trachea. Right upper extremity PICC terminates at the cavoatrial junction. Gastric tube terminates within the stomach. Pulmonary arteries: Unremarkable. Aorta and great vessels: No aneurysm of the aortic arch or thoracic aorta is seen. Mild atherosclerotic calcification. Heart: The heart is normal in size. There is no pericardial effusion. Moderate to heavy coronary artery calcification. Thyroid: No significant abnormalities. Mediastinum and akua: No mediastinal masses or adenopathy is seen. Esophagus: The visualized esophagus is normal. Airways, Lungs, Pleura: Moderate emphysematous change and mild subpleural fibrotic change. Left lower lobe airspace consolidation. Diffuse bilateral groundglass opacity and prominence of the interlobular septa Soft tissue and osseous: No acute findings. Abdomen/Pelvis: General abdomen: No ascites. No free air. Liver : Normal in size and attenuation. No masses seen. Gallbladder/Biliary Tree: Distended gallbladder without stones or wall thickening. No intrahepatic or extrahepatic biliary ductal dilatation. Pancreas: Normal. Spleen: Normal in size and attenuation. Adrenal glands: Normal. Kidneys: Bilateral perinephric fat stranding. No nephrolithiasis or hydronephrosis. No renal masses identified. Gastrointestinal: Stomach is decompressed by a gastric tube. Unremarkable small bowel. Normal appendix. No colonic wall thickening or pericolonic inflammatory changes. Indwelling rectal tube. Lymph nodes: No lymphadenopathy. Vessels: Fusiform infrarenal aortic aneurysm measuring 3.4 cm diameter by approximately 4 cm length. Pelvic Organs: Unremarkable reproductive organs. No pelvic masses. Bladder is decompressed by Berumen catheter. Soft tissues: Minimal anasarca. Bones: No acute or aggressive lesions. Impression: 1. Left lower lobe airspace consolidation superimposed on diffuse groundglass opacity with emphysematous and fibrotic change. Findings suspected to represent multifocal infectious process. 2. Infrarenal aortic aneurysm measuring 3.4 cm diameter. 3. Distended gallbladder without wall thickening. Correlate for right upper quadrant symptoms, consider acalculous cholecystitis in the setting of prolonged illness. Objective: Assessment: Fever again MRSE Bacterermia 08/22/2021.Central line was pulled out Acute hypoxic respiratory failure. COVID-19 pneumonia. Chronic obstructive pulmonary disease with possible underlying pulmonary fibrosis, aspiration pneumonia. Status post code atrial fibrillation with rapid ventricular response, ventricular fibrillation, status post defibrillation, epinephrine, bicarbonate drip, status post cardiac catheterization. IABP placement. Severe protein-calorie malnutrition. Abnormal liver function tests, likely shock liver.GB distention on CT A/P Anemia. Encephalopathy likely anoxic .Electrolyte abn Leucocytosis on steroids, also could be worsening from Bleeds epistaxis now with leukemoid reaction. CT head, chest, abdomen pelvis nonrevealing Black digit of Lt 2nd toe could be COVID C. difficile negative on 09/05/2021 CT A/P Distended gallbladder without wall thickening. Plan: Plan of Care Cont Dapto ,zyvox , meropenem, WBC decreased down to 20K,could also have a reactive component as he has anemia HB dropping CT C/A/P 09/10 reviewed, GB distended C. difficile negative Follow bc neg so far UA negative PICC line repairer tower Awaiting trach Agree with gen surgery to evaluate for GB distention as he has fevers now Critically Ill prognosis very poor D/W Dr Caldera D/W SOFIA Lynne MD Sep 12, 2021 11:20
--- NOTE | 2021-09-12 11:34 | PN ---
DATE: 09/12/2021 SUBJECTIVE: The patient continued to be heavily sedated, intubated, on Levophed. Continued to have episodes of hypoxia. He is febrile again and he dropped his H and H down to 7 and 21. PHYSICAL EXAMINATION: GENERAL: When I examined him this morning, he was pale, but not jaundiced, cyanosed. No lymphadenopathy, no thyromegaly, no jugular venous distention. No lower limb edema. VITAL SIGNS: His heart rate was 101, blood pressure was 145/86, temperature 100.7, respiratory rate was 22 and oxygen saturation was 88-91% on FiO2 of 40%. HEAD, EYES, EARS, NOSE, AND THROAT: Normocephalic and atraumatic. Has orotracheal and orogastric tube. NECK: Supple. HEART: Normal first and second heart sounds. No gallop, rub or murmur. CHEST: Shows central trachea, equal bilateral chest expansion, air entry, vesicular breath sounds. No crepitation or rhonchi. ABDOMEN: Distended, soft, nontender. NEUROLOGIC: He is heavily sedated. His intake was 3480, output was 2550. LABORATORY DATA: As of this morning, his white cell count is down to 20,000, hemoglobin 7, hematocrit 21, MCV 93, and platelet count of 170,000. His chemistry showed a serum sodium to be 139, potassium 4.1, chloride 100, bicarbonate 33, anion gap of 6, BUN 14, creatinine 0.6. Estimated GFR was 136 mL per minute. His glucose was 112, calcium was 7.7. Total bilirubin, AST, ALT, alkaline phosphatase were normal. Total protein 5.4, albumin was 1.8. His chest x-ray done this morning showed that the patient has mild worsening of the left lower lobe consolidating infiltrate, mild worsening of the right lung infiltrate. Endotracheal tube, NG tube and PICC line are unchanged. ASSESSMENT AND PLAN: 1. The patient is status post cardiac arrest, likely due to hypoxia. He had also COVID-19 pneumonia as well as acute inferior wall myocardial infarction. Apparently, the patient went into ventricular tachycardia and shocked and went into ventricular fibrillation, treated with CPR and epinephrine with return of spontaneous circulation. He has been unstable since then. He has episodes of bradycardia and bigeminy as well as atrial fibrillation with rapid ventricular response that has responded well to digoxin, although he continues to be in sinus rhythm. He is afebrile. He has marked leukocytosis. He has continuous fever despite antibiotic and has also dropped his H and H and requiring blood transfusion. He is hypoxic. 2. Acute on chronic hypoxic respiratory failure. 3. Acute respiratory distress syndrome. 4. Acute exacerbation of chronic obstructive pulmonary disease. 5. COVID-19 pneumonia. 6. Atrial fibrillation with rapid ventricular response that is rate controlled. He is off heparin. His Plavix was also put on hold. He is only on aspirin for the time being in anticipation of tracheostomy tube placement as well as gastrostomy tube placement, although it is doubtful that the patient would be stable enough to have this done, although he is tentatively scheduled for that tomorrow. The patient has developed cardiogenic as well as septic shock that has resolved. 7. The patient underwent cardiac catheterization for the second time, which showed that the patient has recanalized his right coronary artery for which he was started on aspirin and Plavix with a plan to do a high risk percutaneous coronary intervention and stent deployment given the large size of artery once the patient is stable, although that also is doubtful. 8. The patient was scheduled for tracheostomy tube tomorrow, although given how unstable he is that remains doubtful. We have discussed with his or his girlfriend that he is very unstable and if he is planning only to at home, there is no reason for him to have to go and ____ the tracheostomy and gastrostomy tube placement only to go home to . CARO DR: Vannessa TID: [id number]
--- NOTE | 2021-09-12 12:54 | PDOC ---
SURGICAL PROGRESS NOTE DATE: 09/12/21 TIME: 12:52 Subjective Pt intubated and sedated Vital Signs Vital Signs Date Time Temp Pulse Resp B/P (MAP) Pulse Ox O2 Delivery O2 Flow Rate FiO2 09/12/21 12:39 96 Ventilator 09/12/21 11:00 102 22 121/62 09/12/21 09:42 100.7 100.7 I&O Intake and Output 09/12/21 07:00 Intake Total 3044 ml Output Total 1315 ml Balance 1729 ml IV Total 1566 ml Tube Feeding 1203 ml Other 275 ml Output Urine Total 1275 ml Gastric Drainage Total 40 ml General: No acute distress HEENT: Other (orally intubated) Labs Laboratory Tests Test 09/11/21 06:00 09/11/21 13:45 09/12/21 05:50 09/12/21 10:48 White Blood Count 28.3 x10^3/uL (4.0-11.0) 28.1 x10^3/uL (4.0-11.0) 20.0 x10^3/uL (4.0-11.0) Red Blood Count 2.46 x10^6/uL (4.30-5.70) 2.53 x10^6/uL (4.30-5.70) 2.31 x10^6/uL (4.30-5.70) Hemoglobin 7.2 g/dL (13.0-17.5) 7.6 g/dL (13.0-17.5) 7.0 g/dL (13.0-17.5) Hematocrit 21.3 % (39.0-53.0) 22.7 % (39.0-53.0) 21.5 % (39.0-53.0) Mean Corpuscular Volume 87 fL (79-100) 90 fL (79-100) 93 fL (79-100) Mean Corpuscular Hemoglobin 29 pg (25-35) 30 pg (25-35) 30 pg (25-35) Mean Corpuscular Hemoglobin Concent 34 g/dL (31-37) 34 g/dL (31-37) 33 g/dL (31-37) Red Cell Distribution Width 16.1 % (11.5-14.5) 17.0 % (11.5-14.5) 17.6 % (11.5-14.5) Platelet Count 214 x10^3/uL (140-400) 208 x10^3/uL (140-400) 170 x10^3/uL (140-400) Neutrophils (%) (Auto) 94 % (31-73) 94 % (31-73) Lymphocytes (%) (Auto) 3 % (24-48) 3 % (24-48) Monocytes (%) (Auto) 3 % (0-9) 2 % (0-9) Eosinophils (%) (Auto) 0 % (0-3) 1 % (0-3) Basophils (%) (Auto) 0 % (0-3) 0 % (0-3) Neutrophils # (Auto) 26.6 x10^3/uL (1.8-7.7) 18.7 x10^3/uL (1.8-7.7) Lymphocytes # (Auto) 0.8 x10^3/uL (1.0-4.8) 0.5 x10^3/uL (1.0-4.8) Monocytes # (Auto) 0.8 x10^3/uL (0.0-1.1) 0.5 x10^3/uL (0.0-1.1) Eosinophils # (Auto) 0.1 x10^3/uL (0.0-0.7) 0.3 x10^3/uL (0.0-0.7) Basophils # (Auto) 0.0 x10^3/uL (0.0-0.2) 0.0 x10^3/uL (0.0-0.2) Sodium Level 137 mmol/L (136-145) 139 mmol/L (136-145) Potassium Level 3.3 mmol/L (3.5-5.1) 4.1 mmol/L (3.5-5.1) Chloride Level 102 mmol/L (98-107) 100 mmol/L (98-107) Carbon Dioxide Level 33 mmol/L (21-32) 33 mmol/L (21-32) Anion Gap 2 (6-14) 6 (6-14) Blood Urea Nitrogen 17 mg/dL (8-26) 14 mg/dL (8-26) Creatinine 0.6 mg/dL (0.7-1.3) 0.6 mg/dL (0.7-1.3) Estimated GFR (Cockcroft-Gault) 136.1 136.1 BUN/Creatinine Ratio 28 (6-20) 23 (6-20) Glucose Level 149 mg/dL (70-99) 112 mg/dL (70-99) Calcium Level 7.9 mg/dL (8.5-10.1) 7.7 mg/dL (8.5-10.1) Total Bilirubin 0.4 mg/dL (0.2-1.0) 0.5 mg/dL (0.2-1.0) Aspartate Amino Transf (AST/SGOT) 39 U/L (15-37) 42 U/L (15-37) Alanine Aminotransferase (ALT/SGPT) 40 U/L (16-63) 42 U/L (16-63) Alkaline Phosphatase 105 U/L (46-116) 112 U/L (46-116) Total Protein 5.2 g/dL (6.4-8.2) 5.4 g/dL (6.4-8.2) Albumin 2.0 g/dL (3.4-5.0) 1.8 g/dL (3.4-5.0) Albumin/Globulin Ratio 0.6 (1.0-1.7) 0.5 (1.0-1.7) O2 Saturation 83 % (92-99) Arterial Blood pH 7.41 (7.35-7.45) Arterial Blood pCO2 at Patient Temp 55 mmHg (35-46) Arterial Blood pO2 at Patient Temp 48 mmHg (65-108) Arterial Blood HCO3 34 mmol/L (21-28) Arterial Blood Base Excess 8 mmol/L (-3-3) FiO2 40% ac 22 400 5 Laboratory Tests Test 09/11/21 13:45 09/12/21 05:50 09/12/21 10:48 White Blood Count 28.1 x10^3/uL (4.0-11.0) 20.0 x10^3/uL (4.0-11.0) Red Blood Count 2.53 x10^6/uL (4.30-5.70) 2.31 x10^6/uL (4.30-5.70) Hemoglobin 7.6 g/dL (13.0-17.5) 7.0 g/dL (13.0-17.5) Hematocrit 22.7 % (39.0-53.0) 21.5 % (39.0-53.0) Mean Corpuscular Volume 90 fL (79-100) 93 fL (79-100) Mean Corpuscular Hemoglobin 30 pg (25-35) 30 pg (25-35) Mean Corpuscular Hemoglobin Concent 34 g/dL (31-37) 33 g/dL (31-37) Red Cell Distribution Width 17.0 % (11.5-14.5) 17.6 % (11.5-14.5) Platelet Count 208 x10^3/uL (140-400) 170 x10^3/uL (140-400) Neutrophils (%) (Auto) 94 % (31-73) Lymphocytes (%) (Auto) 3 % (24-48) Monocytes (%) (Auto) 2 % (0-9) Eosinophils (%) (Auto) 1 % (0-3) Basophils (%) (Auto) 0 % (0-3) Neutrophils # (Auto) 18.7 x10^3/uL (1.8-7.7) Lymphocytes # (Auto) 0.5 x10^3/uL (1.0-4.8) Monocytes # (Auto) 0.5 x10^3/uL (0.0-1.1) Eosinophils # (Auto) 0.3 x10^3/uL (0.0-0.7) Basophils # (Auto) 0.0 x10^3/uL (0.0-0.2) Sodium Level 139 mmol/L (136-145) Potassium Level 4.1 mmol/L (3.5-5.1) Chloride Level 100 mmol/L (98-107) Carbon Dioxide Level 33 mmol/L (21-32) Anion Gap 6 (6-14) Blood Urea Nitrogen 14 mg/dL (8-26) Creatinine 0.6 mg/dL (0.7-1.3) Estimated GFR (Cockcroft-Gault) 136.1 BUN/Creatinine Ratio 23 (6-20) Glucose Level 112 mg/dL (70-99) Calcium Level 7.7 mg/dL (8.5-10.1) Total Bilirubin 0.5 mg/dL (0.2-1.0) Aspartate Amino Transf (AST/SGOT) 42 U/L (15-37) Alanine Aminotransferase (ALT/SGPT) 42 U/L (16-63) Alkaline Phosphatase 112 U/L (46-116) Total Protein 5.4 g/dL (6.4-8.2) Albumin 1.8 g/dL (3.4-5.0) Albumin/Globulin Ratio 0.5 (1.0-1.7) O2 Saturation 83 % (92-99) Arterial Blood pH 7.41 (7.35-7.45) Arterial Blood pCO2 at Patient Temp 55 mmHg (35-46) Arterial Blood pO2 at Patient Temp 48 mmHg (65-108) Arterial Blood HCO3 34 mmol/L (21-28) Arterial Blood Base Excess 8 mmol/L (-3-3) FiO2 40% ac 22 400 5 I have reviewed the following CT with concern for biliary disease Assessment/Plan respiratory failure will check US to evaluate for cholecystitis. PIPPDA not indicated given overall pt instability if remains with concern for cholecystitis, will ask IR to evaluate plan trach tomorrow d/w pulm and ID. Justicifation of Admission Dx: Justifications for Admission: Justification of Admission Dx: N/A TERESA ODEN MD Sep 12, 2021 12:54
[2021-09-12] MEDS: MICAFUNGIN 100 MG in IV DEXTROSE 5% 100ML 100 ML IV SCH (14:19)
--- NOTE | 2021-09-12 15:45 | RAD ---
US ABDOMEN LIMITED History: Acalculous cholecystitis Comparison: CT chest abdomen and pelvis 09/10/2021 Technique: Sonographic examination of the right upper quadrant of the abdomen. Findings: Pancreas: Visualized portions unremarkable. Liver: The liver measures 14.2 cm. Liver echotexture is normal. No focal hepatic lesions. Hepatopet al flow in the portal vein. Gallbladder: No gallstones, wall thickening or pericholecystic fluid. Bile ducts: The common duct measures 6 mm. Right kidney: 13.1 cm length. No mass or hydronephrosis. Aorta/IVC: Visualized portions are unremarkable. Other: No ascites. Impression: 1. No evidence of acute cholecystitis. Electronically signed by: Raphael Gallagher MD (09/12/2021 3:42 PM) [id number]
--- NOTE | 2021-09-12 15:54 | NUR ---
SS following up with discharge planning. SS reviewed pt chart and discussed with pt RN. Pt is currently on the vent at 60%. Tentative trach when medically stable. COVID19 recovered. Pt on IV Micafungin, IV Meropenem, IV Daptomycin, and IV Zyvox. Pt on Levophed, Versed, Fentanyl, and Propofol. Not stable. SS will continue to follow for discharge planning.
[2021-09-12] MEDS: fentaNYL HIGH DOSE PCA 55 ML IV PRN (16:10)
[2021-09-12] MEDS: MIDAZOLAM 100mg/100ml NS BAG 100 ML IV PRN (17:10)
[2021-09-12] MEDS: ATORVASTATIN CALCIUM 40 MG TABLET. PO SCH (21:35)
[2021-09-13] VITALS (23 sets, daily range): BP systolic 86–151; BP diastolic 49–76
[2021-09-13] MEDS: MEROPENEM 500 MG in IV NORMAL SALINE 50ML 50 ML IV SCH ×4 (00:20→17:40)
[2021-09-13] MEDS: PROPOFOL 100 ML IV PRN ×6 (00:33→22:43)
[2021-09-13] MEDS: NOREPINEPHRINE VIAL 8 MG in IV DEXTROSE 5% 250 ML IV PRN (05:30)
[2021-09-13] MEDS ORDERED: MORPHINE SULFATE 2 MG/ML INJ. IVP PRN (06:00)
[2021-09-13] MEDS ORDERED: IV RINGERS,LACTATED 1000ML 1,000 ML IV SCH (06:00)
[2021-09-13] MEDS ORDERED: PROCHLORPERAZINE 10 MG/2 ML VIAL. IVP PRN (06:00)
[2021-09-13] MEDS ORDERED: HYDROmorphone 2 MG/ML INJ. IVP PRN (06:00)
[2021-09-13] MEDS ORDERED: fentaNYL PF VIAL 100 MCG/2 ML VIAL IVP PRN ×2 (06:00)
[2021-09-13 07:09] LABS: BASO % 0 % (0-3); EOS # 0.3 x10^3/uL (0.0-0.7); EOS % 2 % (0-3); HEMATOCRIT 23.7 % (39.0-53.0); HEMOGLOBIN 7.6 g/dL (13.0-17.5); LYMPH # 0.3 x10^3/uL (1.0-4.8); LYMPH % 3 % (24-48); MEAN CORPUSCULAR HEMOGLOBIN 29 pg (25-35); MEAN CORPUSCULAR HGB CONC 32 g/dL (31-37); MEAN CORPUSCULAR VOLUME 91 fL (79-100); MONO # 0.3 x10^3/uL (0.0-1.1); MONO % 2 % (0-9); NEUT # 12.2 x10^3/uL (1.8-7.7); NEUT % 92 % (31-73); PLATELET COUNT 139 x10^3/uL (140-400); RED CELL DISTRIBUTION WIDTH 16.8 % (11.5-14.5); WHITE BLOOD COUNT 13.2 x10^3/uL (4.0-11.0)
[2021-09-13 07:17] LABS: ALBUMIN 1.6 g/dL (3.4-5.0); ALBUMIN/GLOBULIN RATIO 0.4 (1.0-1.7); CALCIUM 7.9 mg/dL (8.5-10.1); CREATININE 0.5 mg/dL (0.7-1.3); GFR 167.9; POTASSIUM 3.7 mmol/L (3.5-5.1); TOTAL BILIRUBIN 0.4 mg/dL (0.2-1.0); TOTAL PROTEIN 5.4 g/dL (6.4-8.2)
[2021-09-13] MEDS: CLOPIDOGREL BISULFATE 75 MG TABLET PO SCH (08:00)
[2021-09-13] MEDS: ASPIRIN CHEWABLE 81 MG TABLET. PO SCH ×2 (08:00→15:11)
[2021-09-13 08:01] LABS: BASE EXCESS ABG 8 mmol/L (-3-3); HCO3 ABG 33 mmol/L (21-28); PCO2 ABG 53 mmHg (35-46); PO2 ABG 91 mmHg (65-108); SAT O2 ABG 96 % (92-99)
[2021-09-13 08:05] LABS: FIO2 ABG 60
[2021-09-13 09:27] LABS: % BANDS 5 % (0-9); % EOS 4 % (0-5); % LYMPHS 2 % (24-48); % MONOS 1 % (0-10); % SEGS 88 % (35-66)
[2021-09-13 09:28] LABS: PLT ESTIMATE DECREASED (ADEQUATE)
[2021-09-13] MEDS: PANTOPRAZOLE IV PUSH 40 MG VIAL. IVP SCH ×2 (09:45→17:40)
[2021-09-13] MEDS: AMIODARONE HCL 200 MG TABLET. PO SCH (09:46)
[2021-09-13] MEDS: levETIRAcetam 500 MG/5 ML ORAL SOLUTION. PEG SCH ×2 (09:46→21:24)
[2021-09-13] MEDS ORDERED: BUPIVACAINE-EPI 0.25%-1:200000 MPF 30 ML VIAL. ONE (09:46)
[2021-09-13] MEDS ORDERED: SURGICEL FIBRILLAR 1X2 EACH. ONE (09:46)
[2021-09-13] MEDS: DAPTOmycin (GENERIC) IVPB 550 MG in IV NORMAL SALINE 50ML 50 ML IV SCH (09:47)
--- NOTE | 2021-09-13 10:01 | PDOC ---
Date of Service: DATE: 09/13/21 TIME: 09:57 Objective: Objective: D/w nurse - might have to postpone trach for instability, had 200-400cc black- green stools yesterday and less output today. S/p 1 unit pRBCs yesterday. Vital Signs: Vital Signs Date Time Temp Pulse Resp B/P (MAP) Pulse Ox O2 Delivery O2 Flow Rate FiO2 09/13/21 09:46 71 102/56 09/13/21 09:00 22 100 Ventilator 09/13/21 08:00 99.1 99.1 09/12/21 16:40 4.0 Labs: Laboratory Tests Test 09/12/21 10:48 09/13/21 06:30 09/13/21 07:50 O2 Saturation 83 % 96 % Arterial Blood pH 7.41 7.42 Arterial Blood pCO2 at Patient Temp 55 mmHg 53 mmHg Arterial Blood pO2 at Patient Temp 48 mmHg 91 mmHg Arterial Blood HCO3 34 mmol/L 33 mmol/L Arterial Blood Base Excess 8 mmol/L 8 mmol/L FiO2 40% ac 22 400 5 60 White Blood Count 13.2 x10^3/uL Red Blood Count 2.60 x10^6/uL Hemoglobin 7.6 g/dL Hematocrit 23.7 % Mean Corpuscular Volume 91 fL Mean Corpuscular Hemoglobin 29 pg Mean Corpuscular Hemoglobin Concent 32 g/dL Red Cell Distribution Width 16.8 % Platelet Count 139 x10^3/uL Neutrophils (%) (Auto) 92 % Lymphocytes (%) (Auto) 3 % Monocytes (%) (Auto) 2 % Eosinophils (%) (Auto) 2 % Basophils (%) (Auto) 0 % Neutrophils # (Auto) 12.2 x10^3/uL Lymphocytes # (Auto) 0.3 x10^3/uL Monocytes # (Auto) 0.3 x10^3/uL Eosinophils # (Auto) 0.3 x10^3/uL Basophils # (Auto) 0.0 x10^3/uL Segmented Neutrophils % 88 % Band Neutrophils % 5 % Lymphocytes % 2 % Monocytes % 1 % Eosinophils % 4 % Platelet Estimate Decreased Sodium Level 140 mmol/L Potassium Level 3.7 mmol/L Chloride Level 101 mmol/L Carbon Dioxide Level 33 mmol/L Anion Gap 6 Blood Urea Nitrogen 15 mg/dL Creatinine 0.5 mg/dL Estimated GFR (Cockcroft-Gault) 167.9 BUN/Creatinine Ratio 30 Glucose Level 113 mg/dL Calcium Level 7.9 mg/dL Total Bilirubin 0.4 mg/dL Aspartate Amino Transf (AST/SGOT) 41 U/L Alanine Aminotransferase (ALT/SGPT) 44 U/L Alkaline Phosphatase 118 U/L Creatine Kinase 198 U/L Total Protein 5.4 g/dL Albumin 1.6 g/dL Albumin/Globulin Ratio 0.4 Imaging: C/A/P CT 09/10 Impression: 1. Left lower lobe airspace consolidation superimposed on diffuse groundglass opacity with emphysematous and fibrotic change. Findings suspected to represent multifocal infectious process. 2. Infrarenal aortic aneurysm measuring 3.4 cm diameter. 3. Distended gallbladder without wall thickening. Correlate for right upper quadrant symptoms, consider acalculous cholecystitis in the setting of prolonged illness. CXR 09/12 IMPRESSION: 1. Mild worsening left lower lobe consolidating infiltrate. 2. Mild worsening mild hazy right lung infiltrates. 3. Endotracheal tube, NG tube and PICC line unchanged. Abd US 09/12 Impression: 1. No evidence of acute cholecystitis. PE: GEN: family present, intubated LUNGS: vent HEART: RR ABD: soft, rectal tube w/ thin black-green output NEURO/PSYCH: sedated A/P: COVID (recovered)/resp failure, s/p cardiac arrest/CAD, anoxic encephalopathy Anemia - required transfusion, on IV PPI Dark stools -- Following along, possible PEG after trach. Justicifation of Admission Dx: Justifications for Admission: Justification of Admission Dx: N/A GEORGIA GUILLEN Sep 13, 2021 10:01
--- NOTE | 2021-09-13 10:43 | PDOC ---
PULMONARY PROGRESS NOTES DATE: 09/13/21 TIME: 10:41 Subjective Remains on assist control mode. Fever curve improved. Oxygen requirement has improved. Vitals Vital Signs Date Time Temp Pulse Resp B/P (MAP) Pulse Ox O2 Delivery O2 Flow Rate FiO2 09/13/21 09:46 71 102/56 09/13/21 09:00 22 100 Ventilator 09/13/21 08:00 99.1 99.1 09/12/21 16:40 4.0 Comments ros unable to obtain sedated on vent HEENT: Other (nc at perrl nose clear orally intubated neck no lad no thyromegaly) Lungs: Clear Cardiovascular: S1, S2 Abdomen: Soft, Non-tender Extremities: No Edema Skin: Warm Labs Laboratory Tests Test 09/11/21 13:45 09/12/21 05:50 09/12/21 10:48 09/13/21 06:30 White Blood Count 28.1 x10^3/uL (4.0-11.0) 20.0 x10^3/uL (4.0-11.0) 13.2 x10^3/uL (4.0-11.0) Red Blood Count 2.53 x10^6/uL (4.30-5.70) 2.31 x10^6/uL (4.30-5.70) 2.60 x10^6/uL (4.30-5.70) Hemoglobin 7.6 g/dL (13.0-17.5) 7.0 g/dL (13.0-17.5) 7.6 g/dL (13.0-17.5) Hematocrit 22.7 % (39.0-53.0) 21.5 % (39.0-53.0) 23.7 % (39.0-53.0) Mean Corpuscular Volume 90 fL (79-100) 93 fL (79-100) 91 fL (79-100) Mean Corpuscular Hemoglobin 30 pg (25-35) 30 pg (25-35) 29 pg (25-35) Mean Corpuscular Hemoglobin Concent 34 g/dL (31-37) 33 g/dL (31-37) 32 g/dL (31-37) Red Cell Distribution Width 17.0 % (11.5-14.5) 17.6 % (11.5-14.5) 16.8 % (11.5-14.5) Platelet Count 208 x10^3/uL (140-400) 170 x10^3/uL (140-400) 139 x10^3/uL (140-400) Neutrophils (%) (Auto) 94 % (31-73) 92 % (31-73) Lymphocytes (%) (Auto) 3 % (24-48) 3 % (24-48) Monocytes (%) (Auto) 2 % (0-9) 2 % (0-9) Eosinophils (%) (Auto) 1 % (0-3) 2 % (0-3) Basophils (%) (Auto) 0 % (0-3) 0 % (0-3) Neutrophils # (Auto) 18.7 x10^3/uL (1.8-7.7) 12.2 x10^3/uL (1.8-7.7) Lymphocytes # (Auto) 0.5 x10^3/uL (1.0-4.8) 0.3 x10^3/uL (1.0-4.8) Monocytes # (Auto) 0.5 x10^3/uL (0.0-1.1) 0.3 x10^3/uL (0.0-1.1) Eosinophils # (Auto) 0.3 x10^3/uL (0.0-0.7) 0.3 x10^3/uL (0.0-0.7) Basophils # (Auto) 0.0 x10^3/uL (0.0-0.2) 0.0 x10^3/uL (0.0-0.2) Sodium Level 139 mmol/L (136-145) 140 mmol/L (136-145) Potassium Level 4.1 mmol/L (3.5-5.1) 3.7 mmol/L (3.5-5.1) Chloride Level 100 mmol/L (98-107) 101 mmol/L (98-107) Carbon Dioxide Level 33 mmol/L (21-32) 33 mmol/L (21-32) Anion Gap 6 (6-14) 6 (6-14) Blood Urea Nitrogen 14 mg/dL (8-26) 15 mg/dL (8-26) Creatinine 0.6 mg/dL (0.7-1.3) 0.5 mg/dL (0.7-1.3) Estimated GFR (Cockcroft-Gault) 136.1 167.9 BUN/Creatinine Ratio 23 (6-20) 30 (6-20) Glucose Level 112 mg/dL (70-99) 113 mg/dL (70-99) Calcium Level 7.7 mg/dL (8.5-10.1) 7.9 mg/dL (8.5-10.1) Total Bilirubin 0.5 mg/dL (0.2-1.0) 0.4 mg/dL (0.2-1.0) Aspartate Amino Transf (AST/SGOT) 42 U/L (15-37) 41 U/L (15-37) Alanine Aminotransferase (ALT/SGPT) 42 U/L (16-63) 44 U/L (16-63) Alkaline Phosphatase 112 U/L (46-116) 118 U/L (46-116) Total Protein 5.4 g/dL (6.4-8.2) 5.4 g/dL (6.4-8.2) Albumin 1.8 g/dL (3.4-5.0) 1.6 g/dL (3.4-5.0) Albumin/Globulin Ratio 0.5 (1.0-1.7) 0.4 (1.0-1.7) O2 Saturation 83 % (92-99) Arterial Blood pH 7.41 (7.35-7.45) Arterial Blood pCO2 at Patient Temp 55 mmHg (35-46) Arterial Blood pO2 at Patient Temp 48 mmHg (65-108) Arterial Blood HCO3 34 mmol/L (21-28) Arterial Blood Base Excess 8 mmol/L (-3-3) FiO2 40% ac 22 400 5 Segmented Neutrophils % 88 % (35-66) Band Neutrophils % 5 % (0-9) Lymphocytes % 2 % (24-48) Monocytes % 1 % (0-10) Eosinophils % 4 % (0-5) Platelet Estimate Decreased (ADEQUATE) Creatine Kinase 198 U/L (39-308) Test 09/13/21 07:50 O2 Saturation 96 % (92-99) Arterial Blood pH 7.42 (7.35-7.45) Arterial Blood pCO2 at Patient Temp 53 mmHg (35-46) Arterial Blood pO2 at Patient Temp 91 mmHg (65-108) Arterial Blood HCO3 33 mmol/L (21-28) Arterial Blood Base Excess 8 mmol/L (-3-3) FiO2 60 Laboratory Tests Test 09/12/21 10:48 09/13/21 06:30 09/13/21 07:50 O2 Saturation 83 % (92-99) 96 % (92-99) Arterial Blood pH 7.41 (7.35-7.45) 7.42 (7.35-7.45) Arterial Blood pCO2 at Patient Temp 55 mmHg (35-46) 53 mmHg (35-46) Arterial Blood pO2 at Patient Temp 48 mmHg (65-108) 91 mmHg (65-108) Arterial Blood HCO3 34 mmol/L (21-28) 33 mmol/L (21-28) Arterial Blood Base Excess 8 mmol/L (-3-3) 8 mmol/L (-3-3) FiO2 40% ac 22 400 5 60 White Blood Count 13.2 x10^3/uL (4.0-11.0) Red Blood Count 2.60 x10^6/uL (4.30-5.70) Hemoglobin 7.6 g/dL (13.0-17.5) Hematocrit 23.7 % (39.0-53.0) Mean Corpuscular Volume 91 fL (79-100) Mean Corpuscular Hemoglobin 29 pg (25-35) Mean Corpuscular Hemoglobin Concent 32 g/dL (31-37) Red Cell Distribution Width 16.8 % (11.5-14.5) Platelet Count 139 x10^3/uL (140-400) Neutrophils (%) (Auto) 92 % (31-73) Lymphocytes (%) (Auto) 3 % (24-48) Monocytes (%) (Auto) 2 % (0-9) Eosinophils (%) (Auto) 2 % (0-3) Basophils (%) (Auto) 0 % (0-3) Neutrophils # (Auto) 12.2 x10^3/uL (1.8-7.7) Lymphocytes # (Auto) 0.3 x10^3/uL (1.0-4.8) Monocytes # (Auto) 0.3 x10^3/uL (0.0-1.1) Eosinophils # (Auto) 0.3 x10^3/uL (0.0-0.7) Basophils # (Auto) 0.0 x10^3/uL (0.0-0.2) Segmented Neutrophils % 88 % (35-66) Band Neutrophils % 5 % (0-9) Lymphocytes % 2 % (24-48) Monocytes % 1 % (0-10) Eosinophils % 4 % (0-5) Platelet Estimate Decreased (ADEQUATE) Sodium Level 140 mmol/L (136-145) Potassium Level 3.7 mmol/L (3.5-5.1) Chloride Level 101 mmol/L (98-107) Carbon Dioxide Level 33 mmol/L (21-32) Anion Gap 6 (6-14) Blood Urea Nitrogen 15 mg/dL (8-26) Creatinine 0.5 mg/dL (0.7-1.3) Estimated GFR (Cockcroft-Gault) 167.9 BUN/Creatinine Ratio 30 (6-20) Glucose Level 113 mg/dL (70-99) Calcium Level 7.9 mg/dL (8.5-10.1) Total Bilirubin 0.4 mg/dL (0.2-1.0) Aspartate Amino Transf (AST/SGOT) 41 U/L (15-37) Alanine Aminotransferase (ALT/SGPT) 44 U/L (16-63) Alkaline Phosphatase 118 U/L (46-116) Creatine Kinase 198 U/L (39-308) Total Protein 5.4 g/dL (6.4-8.2) Albumin 1.6 g/dL (3.4-5.0) Albumin/Globulin Ratio 0.4 (1.0-1.7) Comments Chest x-ray reviewed 09/12/2021. Diffuse bilateral interstitial infiltrates. Increased volume loss left lower lobe. CT chest abdomen and pelvis reviewed. Dated 09/10/2021 Impression: 1. Left lower lobe airspace consolidation superimposed on diffuse groundglass opacity with emphysematous and fibrotic change. Findings suspected to represent multifocal infectious process. 2. Infrarenal aortic aneurysm measuring 3.4 cm diameter. 3. Distended gallbladder without wall thickening. Correlate for right upper quadrant symptoms, consider acalculous cholecystitis in the setting of prolonged illness. Impression . 1. Acute hypoxic respiratory failure secondary to COVID-19 pneumonia, acute respiratory distress syndrome and possible underlying fibrosis and emphysema., Extubated 08/20, reintubated 08/23 status post CODE BLUE/semi-CODE BLUE on 09/[address] chest. Reviewed dated 09/10/2021. Left lower lobe consolidation versus atelectasis. Evidence of possible mild fibrosis. There is evidence of pneumatoceles related to Covid. 3. New sepsis. Continues to have fever. White cell count trending down. CT chest with left lower lobe consolidation, doubt the source of fever. CT abdomen with acalculous cholecystitis. Could be the source. 4. Suspected underlying severe chronic obstructive pulmonary disease. 5. COVID-19 viral pneumonia.--- Covid recovered 6. Abnormal chest x-ray with bilateral diffuse infiltrates related to COVID-19 viral pneumonia.--- Covid recovered 7. Patient reintubated 08/23, status post CODE BLUE 8. Abnormal x-ray from 08/15, possible ARDS, possible pulmonary edema, possible aspiration 9. ST elevation VA status post intra-aortic balloon pump--08/23/2021 10. Emergent cardiac catheterization revealing 90% stenotic lesion 11. Echocardiogram revealing ejection fraction of 35 to 40% pulmonary artery pressure of 34 inferior septal wall hypokinesis 12. Bacteremia Staph epidermidis 13. Necrotic toe left second, suspect related COVID Cardiac catheterization 08/30 Due to large vessel size a decision was made to defer stenting at this time for continued medical therapy. After the patient is fully extubated and depending on symptoms could consider PCI. Conclusion 1. Recanalized right coronary artery with brisk blood flow. 2. Residual proximal 70% RCA stenosis with significant ectasia of the RCA measuring up to 6.25 mm. 3. Normal left ventricular filling pressures. Recommendations 1. Continue aspirin, Plavix and heparin drip. 2. Continue plans for extubation. 3. After patient is extubated and stabilized depending on symptoms we will consider high risk PCI with specialized MegaTron stent given the large vessel size. Plan . Updated 09/13 Continue present assist-control mode. Oxygen requirement has improved. We will continue on 50% FiO2. secondary new sepsis and ARDS along with suspected left lower lobe pneumonia. Tracheotomy scheduled for today. Clinically improving. Off steroids Broad-spectrum antibiotics per ID ABG noted Blood cultures negative. C. difficile negative I doubt left lower lobe atelectasis/consolidation is the etiology for marked leukocytosis. Acalculous cholecystitis could be the source. Follow GI recommendations. Discussed with RN RT Discussed with surgery Dr. Miller Proceed with tracheostomy today. Updated 09/12 Continue present assist-control mode. Oxygen requirement has increased. We will increase the FiO2 to 50%. This is likely secondary to new sepsis and ARDS along with suspected left lower lobe pneumonia. Tracheotomy placed on hold because of leukocytosis. Trending down. Hopefully trach later this week Off steroids Broad-spectrum antibiotics per ID Discussed with at the bedside ABG noted Blood cultures after 4 days negative. C. difficile negative I doubt left lower lobe atelectasis/consolidation is the etiology for marked leukocytosis. Acalculous cholecystitis could be the source. Follow GI recommendations. Discussed with RN RT Will reach out to the son about addressing the goals of care again. Critical care time 30 minutes MICHELLE KNOWLES MD Sep 13, 2021 10:43
--- NOTE | 2021-09-13 10:51 | PDOC ---
SURGICAL PROGRESS NOTE DATE: 09/13/21 TIME: 10:50 Subjective Pre-Op Note 65 yo M with respiratory failure. TO OR for tracheostomy placement. R/R/B/a d/w pt's SO. Risks, including, but not limited to: bleeding, infection, damage to surrounding structures, risk of anesthesia. She appears to understand, her questions are answered and she elects to proceed. Vital Signs Vital Signs Date Time Temp Pulse Resp B/P (MAP) Pulse Ox O2 Delivery O2 Flow Rate FiO2 09/13/21 09:46 71 102/56 09/13/21 09:00 22 100 Ventilator 09/13/21 08:00 99.1 99.1 09/12/21 16:40 4.0 I&O Intake and Output 09/13/21 06:59 Intake Total 4495 ml Output Total 3570 ml Balance 925 ml IV Total 1091 ml Tube Feeding 1991 ml Blood Product 455 ml Blood Product IV Normal Saline Flush 308 ml Other 650 ml Output Urine Total 3550 ml Gastric Drainage Total 20 ml Labs Laboratory Tests Test 09/11/21 13:45 09/12/21 05:50 09/12/21 10:48 09/13/21 06:30 White Blood Count 28.1 x10^3/uL (4.0-11.0) 20.0 x10^3/uL (4.0-11.0) 13.2 x10^3/uL (4.0-11.0) Red Blood Count 2.53 x10^6/uL (4.30-5.70) 2.31 x10^6/uL (4.30-5.70) 2.60 x10^6/uL (4.30-5.70) Hemoglobin 7.6 g/dL (13.0-17.5) 7.0 g/dL (13.0-17.5) 7.6 g/dL (13.0-17.5) Hematocrit 22.7 % (39.0-53.0) 21.5 % (39.0-53.0) 23.7 % (39.0-53.0) Mean Corpuscular Volume 90 fL (79-100) 93 fL (79-100) 91 fL (79-100) Mean Corpuscular Hemoglobin 30 pg (25-35) 30 pg (25-35) 29 pg (25-35) Mean Corpuscular Hemoglobin Concent 34 g/dL (31-37) 33 g/dL (31-37) 32 g/dL (31-37) Red Cell Distribution Width 17.0 % (11.5-14.5) 17.6 % (11.5-14.5) 16.8 % (11.5-14.5) Platelet Count 208 x10^3/uL (140-400) 170 x10^3/uL (140-400) 139 x10^3/uL (140-400) Neutrophils (%) (Auto) 94 % (31-73) 92 % (31-73) Lymphocytes (%) (Auto) 3 % (24-48) 3 % (24-48) Monocytes (%) (Auto) 2 % (0-9) 2 % (0-9) Eosinophils (%) (Auto) 1 % (0-3) 2 % (0-3) Basophils (%) (Auto) 0 % (0-3) 0 % (0-3) Neutrophils # (Auto) 18.7 x10^3/uL (1.8-7.7) 12.2 x10^3/uL (1.8-7.7) Lymphocytes # (Auto) 0.5 x10^3/uL (1.0-4.8) 0.3 x10^3/uL (1.0-4.8) Monocytes # (Auto) 0.5 x10^3/uL (0.0-1.1) 0.3 x10^3/uL (0.0-1.1) Eosinophils # (Auto) 0.3 x10^3/uL (0.0-0.7) 0.3 x10^3/uL (0.0-0.7) Basophils # (Auto) 0.0 x10^3/uL (0.0-0.2) 0.0 x10^3/uL (0.0-0.2) Sodium Level 139 mmol/L (136-145) 140 mmol/L (136-145) Potassium Level 4.1 mmol/L (3.5-5.1) 3.7 mmol/L (3.5-5.1) Chloride Level 100 mmol/L (98-107) 101 mmol/L (98-107) Carbon Dioxide Level 33 mmol/L (21-32) 33 mmol/L (21-32) Anion Gap 6 (6-14) 6 (6-14) Blood Urea Nitrogen 14 mg/dL (8-26) 15 mg/dL (8-26) Creatinine 0.6 mg/dL (0.7-1.3) 0.5 mg/dL (0.7-1.3) Estimated GFR (Cockcroft-Gault) 136.1 167.9 BUN/Creatinine Ratio 23 (6-20) 30 (6-20) Glucose Level 112 mg/dL (70-99) 113 mg/dL (70-99) Calcium Level 7.7 mg/dL (8.5-10.1) 7.9 mg/dL (8.5-10.1) Total Bilirubin 0.5 mg/dL (0.2-1.0) 0.4 mg/dL (0.2-1.0) Aspartate Amino Transf (AST/SGOT) 42 U/L (15-37) 41 U/L (15-37) Alanine Aminotransferase (ALT/SGPT) 42 U/L (16-63) 44 U/L (16-63) Alkaline Phosphatase 112 U/L (46-116) 118 U/L (46-116) Total Protein 5.4 g/dL (6.4-8.2) 5.4 g/dL (6.4-8.2) Albumin 1.8 g/dL (3.4-5.0) 1.6 g/dL (3.4-5.0) Albumin/Globulin Ratio 0.5 (1.0-1.7) 0.4 (1.0-1.7) O2 Saturation 83 % (92-99) Arterial Blood pH 7.41 (7.35-7.45) Arterial Blood pCO2 at Patient Temp 55 mmHg (35-46) Arterial Blood pO2 at Patient Temp 48 mmHg (65-108) Arterial Blood HCO3 34 mmol/L (21-28) Arterial Blood Base Excess 8 mmol/L (-3-3) FiO2 40% ac 22 400 5 Segmented Neutrophils % 88 % (35-66) Band Neutrophils % 5 % (0-9) Lymphocytes % 2 % (24-48) Monocytes % 1 % (0-10) Eosinophils % 4 % (0-5) Platelet Estimate Decreased (ADEQUATE) Creatine Kinase 198 U/L (39-308) Test 09/13/21 07:50 O2 Saturation 96 % (92-99) Arterial Blood pH 7.42 (7.35-7.45) Arterial Blood pCO2 at Patient Temp 53 mmHg (35-46) Arterial Blood pO2 at Patient Temp 91 mmHg (65-108) Arterial Blood HCO3 33 mmol/L (21-28) Arterial Blood Base Excess 8 mmol/L (-3-3) FiO2 60 Laboratory Tests Test 09/13/21 06:30 09/13/21 07:50 White Blood Count 13.2 x10^3/uL (4.0-11.0) Red Blood Count 2.60 x10^6/uL (4.30-5.70) Hemoglobin 7.6 g/dL (13.0-17.5) Hematocrit 23.7 % (39.0-53.0) Mean Corpuscular Volume 91 fL (79-100) Mean Corpuscular Hemoglobin 29 pg (25-35) Mean Corpuscular Hemoglobin Concent 32 g/dL (31-37) Red Cell Distribution Width 16.8 % (11.5-14.5) Platelet Count 139 x10^3/uL (140-400) Neutrophils (%) (Auto) 92 % (31-73) Lymphocytes (%) (Auto) 3 % (24-48) Monocytes (%) (Auto) 2 % (0-9) Eosinophils (%) (Auto) 2 % (0-3) Basophils (%) (Auto) 0 % (0-3) Neutrophils # (Auto) 12.2 x10^3/uL (1.8-7.7) Lymphocytes # (Auto) 0.3 x10^3/uL (1.0-4.8) Monocytes # (Auto) 0.3 x10^3/uL (0.0-1.1) Eosinophils # (Auto) 0.3 x10^3/uL (0.0-0.7) Basophils # (Auto) 0.0 x10^3/uL (0.0-0.2) Segmented Neutrophils % 88 % (35-66) Band Neutrophils % 5 % (0-9) Lymphocytes % 2 % (24-48) Monocytes % 1 % (0-10) Eosinophils % 4 % (0-5) Platelet Estimate Decreased (ADEQUATE) Sodium Level 140 mmol/L (136-145) Potassium Level 3.7 mmol/L (3.5-5.1) Chloride Level 101 mmol/L (98-107) Carbon Dioxide Level 33 mmol/L (21-32) Anion Gap 6 (6-14) Blood Urea Nitrogen 15 mg/dL (8-26) Creatinine 0.5 mg/dL (0.7-1.3) Estimated GFR (Cockcroft-Gault) 167.9 BUN/Creatinine Ratio 30 (6-20) Glucose Level 113 mg/dL (70-99) Calcium Level 7.9 mg/dL (8.5-10.1) Total Bilirubin 0.4 mg/dL (0.2-1.0) Aspartate Amino Transf (AST/SGOT) 41 U/L (15-37) Alanine Aminotransferase (ALT/SGPT) 44 U/L (16-63) Alkaline Phosphatase 118 U/L (46-116) Creatine Kinase 198 U/L (39-308) Total Protein 5.4 g/dL (6.4-8.2) Albumin 1.6 g/dL (3.4-5.0) Albumin/Globulin Ratio 0.4 (1.0-1.7) O2 Saturation 96 % (92-99) Arterial Blood pH 7.42 (7.35-7.45) Arterial Blood pCO2 at Patient Temp 53 mmHg (35-46) Arterial Blood pO2 at Patient Temp 91 mmHg (65-108) Arterial Blood HCO3 33 mmol/L (21-28) Arterial Blood Base Excess 8 mmol/L (-3-3) FiO2 60 Justicifation of Admission Dx: Justifications for Admission: Justification of Admission Dx: N/A TERESA ODEN MD Sep 13, 2021 10:51
[2021-09-13] MEDS ORDERED: fentaNYL PF VIAL 100 MCG/2 ML VIAL ONE (11:04)
--- NOTE | 2021-09-13 11:06 | PN ---
DATE: 09/13/2021 SUBJECTIVE: The patient is resting, slightly propped up in bed, in no apparent respiratory distress. He is heavily sedated, intubated and mechanically ventilated. He is on FiO2 of 50% with oxygen saturation at 99%. PHYSICAL EXAMINATION: GENERAL: When I examined him, he was pale, but no jaundiced or cyanosed. No thyromegaly. No jugular venous distention. No lower limb edema. VITAL SIGNS: His heart rate was 71, blood pressure was 102/56, temperature was 99.1, respiratory rate 22, and oxygen saturation was 100% on FiO2 of 50%. HEAD, EYES, EARS, NOSE, AND THROAT: Normocephalic, atraumatic. NECK: Supple. HEART: Normal first and second heart sounds. No gallop or murmur. CHEST: Shows central trachea, equal bilateral chest expansion, air entry, vesicular breath sounds. I could not appreciate any crepitation or rhonchi anteriorly. ABDOMEN: Distended, soft, nontender. NEUROLOGIC: He is heavily sedated. His intake was 3000, output was 1315. LABORATORY DATA: As of this morning, his serum sodium was 140, potassium 3.7, chloride 101, bicarbonate 33, anion gap of 6, BUN 15, creatinine 0.5, estimated GFR was 167 mL per minute, his glucose 113, calcium was 7.9. Total bilirubin, AST, ALT were normal. Alkaline phosphatase slightly elevated. His CK was 198. Total protein 5.4, albumin was 1.6. His white cell count is down to 13,200, hemoglobin 7.6, hematocrit 23.7, MCV 91, and platelet count of 139,000 with a manual differential showed 92% polymorphs, 3% lymphocytes and 2% monocytes. His arterial blood gases done this morning showed a pH of 7.42, a pCO2 of 53, pO2 of 91, bicarbonate 33, anion gap of 8 and oxygen saturation was 96% on FiO2 60%. His chest x-ray as of yesterday showed mild worsening of the left lower lobe consolidating infiltrate, mild worsening of mild hazy right lung infiltrate. Endotracheal tube, NG tube and PICC lines are unchanged. He did have abdominal ultrasound, which showed no evidence of acute cholecystitis. ASSESSMENT: 1. The patient is status post cardiac arrest, likely due to hypoxia. He had also COVID-19 pneumonia as well as acute inferior wall myocardial infarction. Apparently, the patient went into ventricular tachycardia and shock and went into ventricular fibrillation, treated with CPR and epinephrine with return of spontaneous circulation and has been stable since then, has episodes of bradycardia and bigeminy as well as atrial fibrillation with rapid ventricular response that has responded to digoxin, although he continues to be in sinus rhythm. He had a low-grade fever yesterday. He has marked leukocytosis that is actually improving. He also continues to drop his hemoglobin and hematocrit. He did receive 1 unit of packed RBCs yesterday. 2. Acute on chronic hypoxic respiratory failure. 3. Acute respiratory distress syndrome. 4. Acute exacerbation of chronic obstructive pulmonary disease. 5. COVID-19 pneumonia. 6. Atrial fibrillation with rapid ventricular response that is rate controlled. He is off heparin and his Plavix was also discontinued. He is only on baby aspirin for the time being in anticipation of tracheostomy tube placement as well as gastrostomy tube placement. 7. The patient has undergone cardiac catheterization for the second time, which revealed that the patient has recanalized his right coronary artery for which he was started on Plavix and aspirin. 8. The patient is scheduled for tracheostomy tube placement today. PLAN: Obviously to continue with mechanical ventilation, wean as tolerated. Continue with IV antibiotic. Continue with DVT and GI prophylaxis. I will repeat his labs at least H and H this afternoon, his H and H might drop again and we will transfuse him if hemoglobin is 7 or less than 7. ALIZA/HAYLEE BARONE: Vannessa TID: [id number]
--- NOTE | 2021-09-13 11:20 | PDOC ---
TETO DIAZ PRODUCE CLERK 09/13/21 1120: CARDIO Progress Notes Date and Time Date of Service 09/13/21 Time of Evaluation 1210 Subjective Subjective: Other (mechanical vent ) Vitals Vitals Vital Signs Date Time Temp Pulse Resp B/P (MAP) Pulse Ox O2 Delivery O2 Flow Rate FiO2 09/13/21 09:46 71 102/56 09/13/21 09:00 22 100 Ventilator 09/13/21 08:00 99.1 99.1 09/12/21 16:40 4.0 Weight Weight [ ] Input and Output Intake and Output Intake and Output 09/13/21 07:00 Intake Total 4495 ml Output Total 3570 ml Balance 925 ml IV Total 1091 ml Tube Feeding 1991 ml Blood Product 455 ml Blood Product IV Normal Saline Flush 308 ml Other 650 ml Output Urine Total 3550 ml Gastric Drainage Total 20 ml Laboratory Labs Laboratory Tests Test 09/13/21 06:30 09/13/21 07:50 White Blood Count 13.2 x10^3/uL (4.0-11.0) Red Blood Count 2.60 x10^6/uL (4.30-5.70) Hemoglobin 7.6 g/dL (13.0-17.5) Hematocrit 23.7 % (39.0-53.0) Mean Corpuscular Volume 91 fL (79-100) Mean Corpuscular Hemoglobin 29 pg (25-35) Mean Corpuscular Hemoglobin Concent 32 g/dL (31-37) Red Cell Distribution Width 16.8 % (11.5-14.5) Platelet Count 139 x10^3/uL (140-400) Neutrophils (%) (Auto) 92 % (31-73) Lymphocytes (%) (Auto) 3 % (24-48) Monocytes (%) (Auto) 2 % (0-9) Eosinophils (%) (Auto) 2 % (0-3) Basophils (%) (Auto) 0 % (0-3) Neutrophils # (Auto) 12.2 x10^3/uL (1.8-7.7) Lymphocytes # (Auto) 0.3 x10^3/uL (1.0-4.8) Monocytes # (Auto) 0.3 x10^3/uL (0.0-1.1) Eosinophils # (Auto) 0.3 x10^3/uL (0.0-0.7) Basophils # (Auto) 0.0 x10^3/uL (0.0-0.2) Segmented Neutrophils % 88 % (35-66) Band Neutrophils % 5 % (0-9) Lymphocytes % 2 % (24-48) Monocytes % 1 % (0-10) Eosinophils % 4 % (0-5) Platelet Estimate Decreased (ADEQUATE) Sodium Level 140 mmol/L (136-145) Potassium Level 3.7 mmol/L (3.5-5.1) Chloride Level 101 mmol/L (98-107) Carbon Dioxide Level 33 mmol/L (21-32) Anion Gap 6 (6-14) Blood Urea Nitrogen 15 mg/dL (8-26) Creatinine 0.5 mg/dL (0.7-1.3) Estimated GFR (Cockcroft-Gault) 167.9 BUN/Creatinine Ratio 30 (6-20) Glucose Level 113 mg/dL (70-99) Calcium Level 7.9 mg/dL (8.5-10.1) Total Bilirubin 0.4 mg/dL (0.2-1.0) Aspartate Amino Transf (AST/SGOT) 41 U/L (15-37) Alanine Aminotransferase (ALT/SGPT) 44 U/L (16-63) Alkaline Phosphatase 118 U/L (46-116) Creatine Kinase 198 U/L (39-308) Total Protein 5.4 g/dL (6.4-8.2) Albumin 1.6 g/dL (3.4-5.0) Albumin/Globulin Ratio 0.4 (1.0-1.7) O2 Saturation 96 % (92-99) Arterial Blood pH 7.42 (7.35-7.45) Arterial Blood pCO2 at Patient Temp 53 mmHg (35-46) Arterial Blood pO2 at Patient Temp 91 mmHg (65-108) Arterial Blood HCO3 33 mmol/L (21-28) Arterial Blood Base Excess 8 mmol/L (-3-3) FiO2 60 Microbiology Micro Microbiology 09/05/21 Urine Culture - Final, Complete 09/05/21 Blood Culture - Final, Complete NO GROWTH AFTER 5 DAYS 08/23/21 Respiratory Culture Gram Stain - Final, Complete 08/23/21 Respiratory Culture - Final, Complete Physical Exam HEENT: Other (supple, tracheostomy ) Chest: Symmetric LUNGS: Other (MV) Heart: RRR (SR ) Abdomen: Other (soft ) Extremities: Other (no edema. Eschar to left foot, second toe) Neurology: other (sedated ) Assessment Assessment 1. S/P cardiac arrest; multifactorial. Noted with VT shock x1. approximately <3 min to ROSC. 2. Acute on chronic respiratory failure with COVID PNA, ARDS. unable to be weaned from vent. CXR with worsening consolidation, PNA. s/p tracheostomy 3. CAD, inferior STEMI with embolic disease. Repeat LHC showed recanalized RCA with brisk blood flow. Residual proximal 70% RCA stenosis with significant ectasia of the RCA 4. Cardiogenic shock; IABP removed. 5. Acute on chronic systolic CHF, ICM: EF at 35-40%. 6. AFIB RVR: presently SR. 7. Bradyarrhythmia; resolved. Avoid AV clara blocking agents 8. Hyperlipidemia; statin 9. Black distal phalanx to left 2nd toe: possibly r/t to covid-19. no significnat PAD per duplex 10. Leukocytosis, fevers, sepsis. CT abdomen/pelvis with gallbladder distention, but US without evidence of cholecystitis. Remains of pressor support. 11. Anemia; hgb drift to 7.0. s/p transfusion. hgb 7.6 Recommendations Aspirin, statin therapy Plavix on hold, awaiting PEG tube placement Will continue to withhold resumption of heparin drip given anemia Amiodarone for rhythm maintenance Pressor support as warranted Ongoing support Justicifation of Admission Dx: Justifications for Admission: Justification of Admission Dx: N/A TEDDY ANGLIN MD 09/13/21 1716: CARDIO Progress Notes Plan Plan Pt. seen and examined. Agree with above CLOTHING WORKER note. Supportive care. Patient now in afib intermittently, expected given current clinical situation. Hold anticoagulation given anemia. Discussed with nursing staff and at bedside. TETO DIAZ APRN Sep 13, 2021 11:20 TEDDY ANGLIN MD Sep 13, 2021 17:16
--- NOTE | 2021-09-13 11:33 | NUR ---
SS following up with discharge planning. SS reviewed pt chart and discussed with pt RN. Pt is currently on the vent at 50%. Trach today. COVID19 recovered. Pt on IV Micafungin, IV Meropenem, IV Daptomycin, and IV Zyvox. Pt on Levophed, Versed, Fentanyl, and Propofol. GI following for possible PEG. Not ready. SS will continue to follow for discharge planning.
--- NOTE | 2021-09-13 12:37 | PDOC ---
Infectious Disease Note Subjective: Subjective Patient underwent trach placement temp pattern improved Vital Signs: Vital Signs Vital Signs Date Time Temp Pulse Resp B/P (MAP) Pulse Ox O2 Delivery O2 Flow Rate FiO2 09/13/21 12:30 97 Ventilator 09/13/21 12:11 99.7 69 22 97/57 99.7 09/12/21 16:40 4.0 Physical Exam: PHYSICAL EXAM GENERAL: Intubated HEENT: No conjunctival petechia. ETT present, OGT present LUNGS: Coarse breath sounds in the bases, otherwise clear. HEART: S1, S2, irregular. I could not appreciate any murmurs. ABDOMEN: Soft, nontender, nondistended. Bowel sounds present. GENITOURINARY: Berumen in place. EXTREMITIES: Present no cyanosis. Right groin catheter removed, Right upper extremity PICC line placed on 08/23/2021.Lt 2nd digit black DERMATOLOGIC: Warm, dry, no generalized rash. NEUROLOGIC: Unable to assess. Medications: Inpatient Meds: Medications reviewed. Labs: Lab Laboratory Tests Test 09/13/21 06:30 09/13/21 07:50 White Blood Count 13.2 x10^3/uL (4.0-11.0) Red Blood Count 2.60 x10^6/uL (4.30-5.70) Hemoglobin 7.6 g/dL (13.0-17.5) Hematocrit 23.7 % (39.0-53.0) Mean Corpuscular Volume 91 fL (79-100) Mean Corpuscular Hemoglobin 29 pg (25-35) Mean Corpuscular Hemoglobin Concent 32 g/dL (31-37) Red Cell Distribution Width 16.8 % (11.5-14.5) Platelet Count 139 x10^3/uL (140-400) Neutrophils (%) (Auto) 92 % (31-73) Lymphocytes (%) (Auto) 3 % (24-48) Monocytes (%) (Auto) 2 % (0-9) Eosinophils (%) (Auto) 2 % (0-3) Basophils (%) (Auto) 0 % (0-3) Neutrophils # (Auto) 12.2 x10^3/uL (1.8-7.7) Lymphocytes # (Auto) 0.3 x10^3/uL (1.0-4.8) Monocytes # (Auto) 0.3 x10^3/uL (0.0-1.1) Eosinophils # (Auto) 0.3 x10^3/uL (0.0-0.7) Basophils # (Auto) 0.0 x10^3/uL (0.0-0.2) Segmented Neutrophils % 88 % (35-66) Band Neutrophils % 5 % (0-9) Lymphocytes % 2 % (24-48) Monocytes % 1 % (0-10) Eosinophils % 4 % (0-5) Platelet Estimate Decreased (ADEQUATE) Sodium Level 140 mmol/L (136-145) Potassium Level 3.7 mmol/L (3.5-5.1) Chloride Level 101 mmol/L (98-107) Carbon Dioxide Level 33 mmol/L (21-32) Anion Gap 6 (6-14) Blood Urea Nitrogen 15 mg/dL (8-26) Creatinine 0.5 mg/dL (0.7-1.3) Estimated GFR (Cockcroft-Gault) 167.9 BUN/Creatinine Ratio 30 (6-20) Glucose Level 113 mg/dL (70-99) Calcium Level 7.9 mg/dL (8.5-10.1) Total Bilirubin 0.4 mg/dL (0.2-1.0) Aspartate Amino Transf (AST/SGOT) 41 U/L (15-37) Alanine Aminotransferase (ALT/SGPT) 44 U/L (16-63) Alkaline Phosphatase 118 U/L (46-116) Creatine Kinase 198 U/L (39-308) Total Protein 5.4 g/dL (6.4-8.2) Albumin 1.6 g/dL (3.4-5.0) Albumin/Globulin Ratio 0.4 (1.0-1.7) O2 Saturation 96 % (92-99) Arterial Blood pH 7.42 (7.35-7.45) Arterial Blood pCO2 at Patient Temp 53 mmHg (35-46) Arterial Blood pO2 at Patient Temp 91 mmHg (65-108) Arterial Blood HCO3 33 mmol/L (21-28) Arterial Blood Base Excess 8 mmol/L (-3-3) FiO2 60 Micro PATIENT: JAYY JEFFRIES ACCOUNT: [id number] : 1955 LOCATION: [facility] ICU AGE: 65 SEX: M EXAM STATUS: ADM IN ORD. PHYSICIAN: SOFIA LOWERY MD REASON: Leukocytosis PROCEDURE: CT CHEST ABDOMEN PELVIS WO CT CHEST_ABDOMEN_ AND PELVIS WITHOUT CONTRAST History: Leukocytosis. Comparison: CTA chest 07/29/2021. Technique: CT of the chest, abdomen and pelvis with intravenous contrast. Findings: Chest: Devices: Endotracheal tube terminates in the upper thoracic trachea. Right upper extremity PICC terminates at the cavoatrial junction. Gastric tube terminates within the stomach. Pulmonary arteries: Unremarkable. Aorta and great vessels: No aneurysm of the aortic arch or thoracic aorta is seen. Mild atherosclerotic calcification. Heart: The heart is normal in size. There is no pericardial effusion. Moderate to heavy coronary artery calcification. Thyroid: No significant abnormalities. Mediastinum and akua: No mediastinal masses or adenopathy is seen. Esophagus: The visualized esophagus is normal. Airways, Lungs, Pleura: Moderate emphysematous change and mild subpleural fibrotic change. Left lower lobe airspace consolidation. Diffuse bilateral groundglass opacity and prominence of the interlobular septa Soft tissue and osseous: No acute findings. Abdomen/Pelvis: General abdomen: No ascites. No free air. Liver : Normal in size and attenuation. No masses seen. Gallbladder/Biliary Tree: Distended gallbladder without stones or wall thickening. No intrahepatic or extrahepatic biliary ductal dilatation. Pancreas: Normal. Spleen: Normal in size and attenuation. Adrenal glands: Normal. Kidneys: Bilateral perinephric fat stranding. No nephrolithiasis or hydronephrosis. No renal masses identified. Gastrointestinal: Stomach is decompressed by a gastric tube. Unremarkable small bowel. Normal appendix. No colonic wall thickening or pericolonic inflammatory changes. Indwelling rectal tube. Lymph nodes: No lymphadenopathy. Vessels: Fusiform infrarenal aortic aneurysm measuring 3.4 cm diameter by approximately 4 cm length. Pelvic Organs: Unremarkable reproductive organs. No pelvic masses. Bladder is decompressed by Berumen catheter. Soft tissues: Minimal anasarca. Bones: No acute or aggressive lesions. Impression: 1. Left lower lobe airspace consolidation superimposed on diffuse groundglass opacity with emphysematous and fibrotic change. Findings suspected to represent multifocal infectious process. 2. Infrarenal aortic aneurysm measuring 3.4 cm diameter. 3. Distended gallbladder without wall thickening. Correlate for right upper quadrant symptoms, consider acalculous cholecystitis in the setting of prolonged illness. Objective: Assessment: Fever again MRSE Bacterermia 08/22/2021.Central line was pulled out Acute hypoxic respiratory failure. COVID-19 pneumonia. Chronic obstructive pulmonary disease with possible underlying pulmonary fibrosis, aspiration pneumonia. Status post code atrial fibrillation with rapid ventricular response, ventricular fibrillation, status post defibrillation, epinephrine, bicarbonate drip, status post cardiac catheterization. IABP placement. Severe protein-calorie malnutrition. Abnormal liver function tests, likely shock liver.GB distention on CT A/P Anemia. Encephalopathy likely anoxic .Electrolyte abn Leucocytosis on steroids, also could be worsening from Bleeds epistaxis now with leukemoid reaction. CT head, chest, abdomen pelvis nonrevealing Black digit of Lt 2nd toe could be COVID C. difficile negative on 09/05/2021 CT A/P Distended gallbladder without wall thickening. U/S neg for cholecystitis Plan: Plan of Care Cont Dapto ,zyvox , meropenem,micafungin WBC decreasing,could also have a reactive component as he has anemia HB dropping CT C/A/P 09/10 reviewed, GB distended C. 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
[2021-09-13] MEDS: MICAFUNGIN 100 MG in IV DEXTROSE 5% 100ML 100 ML IV SCH (13:09)
--- NOTE | 2021-09-13 13:31 | PDOC ---
PROGRESS NOTES Date of Service DATE: 09/13/21 TIME: 13:27 Assessment Anoxic encephalopathy, CODE BLUE, 08/23, in the setting of Covid pneumonia with respiratory failure, hyponatremia, atrial fibrillation, multiorgan damage, cardiogenic as well as septic shock He is on levetiracetam for seizures Status-post tracheostomy on 09/13 Plan I discussed with patient's significant other, his neurological prognosis is poor Subjective None Objective Vital Signs Date Time Temp Pulse Resp B/P (MAP) Pulse Ox O2 Delivery O2 Flow Rate FiO2 09/13/21 13:00 68 22 98/54 100 Ventilator 09/13/21 12:11 99.7 99.7 09/12/21 16:40 4.0 Intake and Output 09/13/21 07:00 Intake Total 4495 ml Output Total 3570 ml Balance 925 ml IV Total 1091 ml Tube Feeding 1991 ml Blood Product 455 ml Blood Product IV Normal Saline Flush 308 ml Other 650 ml Output Urine Total 3550 ml Gastric Drainage Total 20 ml PHYSICAL EXAM Sedated on vent PERRL. No spontaneous extraocular movement CN: no focal findings. Muscle tone: normal. Muscle strength: Not tested DTR: Not testable Plantar reflex: Silent Gait: not examined in bed. Sensory exam: Not testable Cerebellar: Not testable Review of Relevant I have reviewed the following items shey (where applicable) has been applied. Labs Laboratory Tests Test 09/11/21 13:45 09/12/21 05:50 09/12/21 10:48 09/13/21 06:30 White Blood Count 28.1 x10^3/uL (4.0-11.0) 20.0 x10^3/uL (4.0-11.0) 13.2 x10^3/uL (4.0-11.0) Red Blood Count 2.53 x10^6/uL (4.30-5.70) 2.31 x10^6/uL (4.30-5.70) 2.60 x10^6/uL (4.30-5.70) Hemoglobin 7.6 g/dL (13.0-17.5) 7.0 g/dL (13.0-17.5) 7.6 g/dL (13.0-17.5) Hematocrit 22.7 % (39.0-53.0) 21.5 % (39.0-53.0) 23.7 % (39.0-53.0) Mean Corpuscular Volume 90 fL (79-100) 93 fL (79-100) 91 fL (79-100) Mean Corpuscular Hemoglobin 30 pg (25-35) 30 pg (25-35) 29 pg (25-35) Mean Corpuscular Hemoglobin Concent 34 g/dL (31-37) 33 g/dL (31-37) 32 g/dL (31-37) Red Cell Distribution Width 17.0 % (11.5-14.5) 17.6 % (11.5-14.5) 16.8 % (11.5-14.5) Platelet Count 208 x10^3/uL (140-400) 170 x10^3/uL (140-400) 139 x10^3/uL (140-400) Neutrophils (%) (Auto) 94 % (31-73) 92 % (31-73) Lymphocytes (%) (Auto) 3 % (24-48) 3 % (24-48) Monocytes (%) (Auto) 2 % (0-9) 2 % (0-9) Eosinophils (%) (Auto) 1 % (0-3) 2 % (0-3) Basophils (%) (Auto) 0 % (0-3) 0 % (0-3) Neutrophils # (Auto) 18.7 x10^3/uL (1.8-7.7) 12.2 x10^3/uL (1.8-7.7) Lymphocytes # (Auto) 0.5 x10^3/uL (1.0-4.8) 0.3 x10^3/uL (1.0-4.8) Monocytes # (Auto) 0.5 x10^3/uL (0.0-1.1) 0.3 x10^3/uL (0.0-1.1) Eosinophils # (Auto) 0.3 x10^3/uL (0.0-0.7) 0.3 x10^3/uL (0.0-0.7) Basophils # (Auto) 0.0 x10^3/uL (0.0-0.2) 0.0 x10^3/uL (0.0-0.2) Sodium Level 139 mmol/L (136-145) 140 mmol/L (136-145) Potassium Level 4.1 mmol/L (3.5-5.1) 3.7 mmol/L (3.5-5.1) Chloride Level 100 mmol/L (98-107) 101 mmol/L (98-107) Carbon Dioxide Level 33 mmol/L (21-32) 33 mmol/L (21-32) Anion Gap 6 (6-14) 6 (6-14) Blood Urea Nitrogen 14 mg/dL (8-26) 15 mg/dL (8-26) Creatinine 0.6 mg/dL (0.7-1.3) 0.5 mg/dL (0.7-1.3) Estimated GFR (Cockcroft-Gault) 136.1 167.9 BUN/Creatinine Ratio 23 (6-20) 30 (6-20) Glucose Level 112 mg/dL (70-99) 113 mg/dL (70-99) Calcium Level 7.7 mg/dL (8.5-10.1) 7.9 mg/dL (8.5-10.1) Total Bilirubin 0.5 mg/dL (0.2-1.0) 0.4 mg/dL (0.2-1.0) Aspartate Amino Transf (AST/SGOT) 42 U/L (15-37) 41 U/L (15-37) Alanine Aminotransferase (ALT/SGPT) 42 U/L (16-63) 44 U/L (16-63) Alkaline Phosphatase 112 U/L (46-116) 118 U/L (46-116) Total Protein 5.4 g/dL (6.4-8.2) 5.4 g/dL (6.4-8.2) Albumin 1.8 g/dL (3.4-5.0) 1.6 g/dL (3.4-5.0) Albumin/Globulin Ratio 0.5 (1.0-1.7) 0.4 (1.0-1.7) O2 Saturation 83 % (92-99) Arterial Blood pH 7.41 (7.35-7.45) Arterial Blood pCO2 at Patient Temp 55 mmHg (35-46) Arterial Blood pO2 at Patient Temp 48 mmHg (65-108) Arterial Blood HCO3 34 mmol/L (21-28) Arterial Blood Base Excess 8 mmol/L (-3-3) FiO2 40% ac 22 400 5 Segmented Neutrophils % 88 % (35-66) Band Neutrophils % 5 % (0-9) Lymphocytes % 2 % (24-48) Monocytes % 1 % (0-10) Eosinophils % 4 % (0-5) Platelet Estimate Decreased (ADEQUATE) Creatine Kinase 198 U/L (39-308) Test 09/13/21 07:50 O2 Saturation 96 % (92-99) Arterial Blood pH 7.42 (7.35-7.45) Arterial Blood pCO2 at Patient Temp 53 mmHg (35-46) Arterial Blood pO2 at Patient Temp 91 mmHg (65-108) Arterial Blood HCO3 33 mmol/L (21-28) Arterial Blood Base Excess 8 mmol/L (-3-3) FiO2 60 Laboratory Tests Test 09/13/21 06:30 09/13/21 07:50 White Blood Count 13.2 x10^3/uL (4.0-11.0) Red Blood Count 2.60 x10^6/uL (4.30-5.70) Hemoglobin 7.6 g/dL (13.0-17.5) Hematocrit 23.7 % (39.0-53.0) Mean Corpuscular Volume 91 fL (79-100) Mean Corpuscular Hemoglobin 29 pg (25-35) Mean Corpuscular Hemoglobin Concent 32 g/dL (31-37) Red Cell Distribution Width 16.8 % (11.5-14.5) Platelet Count 139 x10^3/uL (140-400) Neutrophils (%) (Auto) 92 % (31-73) Lymphocytes (%) (Auto) 3 % (24-48) Monocytes (%) (Auto) 2 % (0-9) Eosinophils (%) (Auto) 2 % (0-3) Basophils (%) (Auto) 0 % (0-3) Neutrophils # (Auto) 12.2 x10^3/uL (1.8-7.7) Lymphocytes # (Auto) 0.3 x10^3/uL (1.0-4.8) Monocytes # (Auto) 0.3 x10^3/uL (0.0-1.1) Eosinophils # (Auto) 0.3 x10^3/uL (0.0-0.7) Basophils # (Auto) 0.0 x10^3/uL (0.0-0.2) Segmented Neutrophils % 88 % (35-66) Band Neutrophils % 5 % (0-9) Lymphocytes % 2 % (24-48) Monocytes % 1 % (0-10) Eosinophils % 4 % (0-5) Platelet Estimate Decreased (ADEQUATE) Sodium Level 140 mmol/L (136-145) Potassium Level 3.7 mmol/L (3.5-5.1) Chloride Level 101 mmol/L (98-107) Carbon Dioxide Level 33 mmol/L (21-32) Anion Gap 6 (6-14) Blood Urea Nitrogen 15 mg/dL (8-26) Creatinine 0.5 mg/dL (0.7-1.3) Estimated GFR (Cockcroft-Gault) 167.9 BUN/Creatinine Ratio 30 (6-20) Glucose Level 113 mg/dL (70-99) Calcium Level 7.9 mg/dL (8.5-10.1) Total Bilirubin 0.4 mg/dL (0.2-1.0) Aspartate Amino Transf (AST/SGOT) 41 U/L (15-37) Alanine Aminotransferase (ALT/SGPT) 44 U/L (16-63) Alkaline Phosphatase 118 U/L (46-116) Creatine Kinase 198 U/L (39-308) Total Protein 5.4 g/dL (6.4-8.2) Albumin 1.6 g/dL (3.4-5.0) Albumin/Globulin Ratio 0.4 (1.0-1.7) O2 Saturation 96 % (92-99) Arterial Blood pH 7.42 (7.35-7.45) Arterial Blood pCO2 at Patient Temp 53 mmHg (35-46) Arterial Blood pO2 at Patient Temp 91 mmHg (65-108) Arterial Blood HCO3 33 mmol/L (21-28) Arterial Blood Base Excess 8 mmol/L (-3-3) FiO2 60 Microbiology 09/05/21 Urine Culture - Final, Complete 09/05/21 Blood Culture - Final, Complete NO GROWTH AFTER 5 DAYS 08/23/21 Respiratory Culture Gram Stain - Final, Complete 08/23/21 Respiratory Culture - Final, Complete Medications Current Medications Dexamethasone Sodium Phosphate (Decadron) 6 mg DAILY IVP Last administered on 08/10/21at 08:29; Start 08/01/21 at 09:00; Stop 08/10/21 at 09:01; Status DC Heparin Sodium (Porcine) (Heparin Sodium) 5,000 unit Q8HRS SQ Last administered on 08/20/21at 05:41; Start 07/31/21 at 14:00; Stop 08/20/21 at 08:37; Status DC Famotidine (Pepcid Vial) 20 mg BID IVP Last administered on 09/10/21at 08:07; Start 07/31/21 at 14:00; Stop 09/10/21 at 12:40; Status DC Fentanyl Citrate 30 ml @ 2.5 mls/hr CONT PRN IV SEE PROTOCOL Last administered on 07/31/21at 12:49; Start 07/31/21 at 12:15; Stop 07/31/21 at 16:19; Status DC Midazolam HCl 100 ml @ 1 mls/hr CONT PRN IV SEE PROTOCOL Last administered on 09/12/21at 17:10; Start 07/31/21 at 12:15 Propofol 100 ml @ 3.45 mls/hr CONT PRN IV PER PROTOCOL Last administered on 09/13/21at 09:41; Start 07/31/21 at 12:15 Vecuronium Roberts (Norcuron Bolus) 6 mg PRN 1X PRN IV VENT INDUCTION; Start 07/31/21 at 12:15; Stop 08/01/21 at 12:14; Status DC Glycerin/ Hypromellose/ Polyethylene (Artificial Tears) 1 drop PRN Q1HR PRN OU DRY EYE; Start 07/31/21 at 12:15 Dexmedetomidine HCl 400 mcg/ Sodium Chloride 100 ml @ 0 mls/hr CONT PRN IV PER PROTOCOL Last administered on 08/17/21at 12:55; Start 07/31/21 at 12:15 Midazolam HCl (Versed) 5 mg PRN 1X PRN IVP VENT INDUCTION; Start 07/31/21 at 12:15; Stop 08/01/21 at 12:14; Status DC Sodium Chloride 500 ml @ 500 mls/hr 1X PRN PRN IV SEE COMMENTS Last administered on 09/10/21at 17:16; Start 07/31/21 at 12:15 Atropine Sulfate (ATROPINE 0.5mg SYRINGE) 0.5 mg PRN Q5MIN PRN IV SEE COMMENTS; Start 07/31/21 at 12:15 Famotidine (Pepcid Vial) 20 mg BID IVP ; Start 07/31/21 at 21:00; Status UNV Piperacillin Sod/ Tazobactam Sod (Zosyn Per Pharmacy) 1 each PRN DAILY PRN MC S EE COMMENTS; Start 07/31/21 at 15:15; Stop 08/08/21 at 12:29; Status DC Piperacillin Sod/ Tazobactam Sod 3.375 gm/Sodium Chloride 50 ml @ 100 mls/hr Q6HRS IV Last administered on 08/07/21at 11:20; Start 07/31/21 at 18:00; Stop 08/07/21 at 17:59; Status DC Fentanyl Citrate 55 ml @ 1 mls/hr CONT PRN IV SEE PROTOCOL Last administered on 09/12/21at 16:10; Start 07/31/21 at 15:45 Insulin Human Lispro (HumaLOG) 0-7 UNITS Q6HRS SQ ; Start 08/02/21 at 06:00; Stop 08/07/21 at 08:09; Status DC Dextrose (Dextrose 50%-Water Syringe) 12.5 gm PRN Q15MIN PRN IV SEE COMMENTS; Start 08/01/21 at 23:00 Vecuronium Roberts (Norcuron Bolus) 6 mg PRN Q6HRS PRN IV VENTILATOR COMPLIANCE Last administered on 09/10/21at 05:33; Start 08/06/21 at 13:45 Vecuronium Roberts (Norcuron Bolus) 10 mg STK-MED ONCE IV ; Start 08/06/21 at 13:34; Stop 08/07/21 at 13:38; Status DC Sterile Water (WATER for RESP) 1,000 ml CONT PRN INH VIA VAPOTHERM DEVICE; Start 08/12/21 at 09:45; Status Cancel Dexamethasone Sodium Phosphate (Decadron) 6 mg DAILY IVP ; Start 08/17/21 at 09:00; Stop 08/16/21 at 13:31; Status DC Dexamethasone Sodium Phosphate (Decadron) 10 mg 1X ONCE IV ; Start 08/16/21 at 12:30; Stop 08/16/21 at 13:31; Status DC Acetaminophen (Tylenol) 650 mg PRN Q6HRS PRN PEG MILD PAIN / TEMP > 100.3'F Last administered on 08/20/21at 03:50; Start 08/17/21 at 00:15 Heparin Sodium (Porcine) (Heparin Sodium) 5,000 unit Q8HRS SQ Last administered on 08/23/21at 05:39; Start 08/21/21 at 14:00; Stop 08/23/21 at 18:33; Status DC Fentanyl Citrate (Fentanyl 2ml Vial) 25 mcg PRN Q5MIN PRN IVP MILD PAIN 1-3; Start 08/21/21 at 06:00; Stop 08/22/21 at 05:59; Status DC Fentanyl Citrate (Fentanyl 2ml Vial) 50 mcg PRN Q5MIN PRN IVP MODERATE PAIN 4- 6; Start 08/21/21 at 06:00; Stop 08/22/21 at 05:59; Status DC Morphine Sulfate (Morphine Sulfate) 1 mg PRN Q10MIN PRN IVP SEVERE PAIN 7-10; Start 08/21/21 at 06:00; Stop 08/22/21 at 05:59; Status DC Ringer's Solution 1,000 ml @ 30 mls/hr Q24H IV ; Start 08/21/21 at 06:00; Stop 08/21/21 at 17:59; Status DC Hydromorphone HCl (Dilaudid) 0.5 mg PRN Q10MIN PRN IVP SEVERE PAIN 7-10, 2nd CHOICE; Start 08/21/21 at 06:00; Stop 08/22/21 at 05:59; Status DC Prochlorperazine Edisylate (Compazine) 5 mg PACU PRN PRN IVP NAUSEA, MRX1; Start 08/21/21 at 06:00; Stop 08/22/21 at 05:59; Status DC Haloperidol Lactate (Haldol Inj) 5 mg PRN Q8HRS PRN IVP AGITATION; Start 08/22/21 at 10:45; Stop 08/22/21 at 10:45; Status DC Haloperidol Lactate (Haldol Inj) 5 mg Q8HRS IVP Last administered on 08/23/21at 05:38; Start 08/22/21 at 11:00; Stop 08/24/21 at 13:52; Status DC Acetaminophen (Tylenol Supp) 650 mg Q4H ONCE AR Last administered on 08/22/21at 11:45; Start 08/22/21 at 11:30; Stop 08/22/21 at 11:31; Status DC Vancomycin HCl (Vanco Per Pharmacy) 1 each PRN DAILY PRN MC SEE COMMENTS Last administered on 08/23/21at 12:21; Start 08/22/21 at 11:30; Stop 08/24/21 at 09:14; Status DC Piperacillin Sod/ Tazobactam Sod (Zosyn Per Pharmacy) 1 each PRN DAILY PRN MC SEE COMMENTS; Start 08/22/21 at 11:30; Stop 09/10/21 at 11:37; Status DC Piperacillin Sod/ Tazobactam Sod 4.5 gm/Dextrose 100 ml @ 200 mls/hr Q6HRS IV Last administered on 09/10/21at 05:32; Start 08/22/21 at 12:00; Stop 09/10/21 at 08:13; Status DC Vancomycin HCl 2 gm/Sodium Chloride 500 ml @ 250 mls/hr 1X ONCE IV Last administered on 08/22/21at 12:34; Start 08/22/21 at 13:00; Stop 08/22/21 at 14:59; Status DC Acetaminophen (Tylenol Supp) 650 mg PRN Q4HRS PRN AR MILD PAIN / TEMP > 100.3'F Last administered on 08/22/21at 23:32; Start 08/22/21 at 11:45 Dextrose/Lactated Ringer's 1,000 ml @ 80 mls/hr [id number] IV Last administered on 08/31/21at 21:16; Start 08/22/21 at 12:45; Stop 09/01/21 at 12:01; Status DC Vancomycin HCl 1 gm/Sodium Chloride 250 ml @ 250 mls/hr Q8H IV Last administered on 08/24/21at 04:00; Start 08/22/21 at 20:00; Stop 08/24/21 at 09:14; Status DC Vancomycin HCl (Vancomycin Trough Level) 1 each 1X ONCE MC ; Start 08/23/21 at 11:30; Stop 08/24/21 at 09:14; Status DC Etomidate (Amidate) 20 mg STK-MED ONCE IV ; Start 08/23/21 at 11:25; Stop 08/23/21 at 11:25; Status DC Succinylcholine Chloride (Anectine) 200 mg STK-MED ONCE .ROUTE ; Start 08/23/21 at 11:25; Stop 08/23/21 at 11:26; Status DC Etomidate (Amidate) 20 mg 1X ONCE IV Last administered on 08/23/21at 12:21; Start 08/23/21 at 12:15; Stop 08/23/21 at 12:16; Status DC Succinylcholine Chloride (Anectine) 100 mg 1X ONCE IV Last administered on 08/23/21at 12:21; Start 08/23/21 at 12:15; Stop 08/23/21 at 12:16; Status DC Methylprednisolone Sodium Succinate (SOLU-Medrol 125MG VIAL) 125 mg Q8HRS IV Last administered on 09/01/21at 06:08; Start 08/23/21 at 14:00; Stop 09/01/21 at 12:01; Status DC Furosemide (Lasix) 40 mg 1X ONCE IVP Last administered on 08/23/21at 13:19; Start 08/23/21 at 12:45; Stop 08/23/21 at 12:56; Status DC Furosemide (Lasix) 40 mg DAILY IVP Last administered on 08/24/21at 07:24; Start 08/24/21 at 09:00; Stop 08/24/21 at 11:24; Status DC Digoxin (Lanoxin) 500 mcg 1X ONCE IV Last administered on 08/23/21at 15:16; Start 08/23/21 at 15:30; Stop 08/23/21 at 15:31; Status DC Amiodarone HCl 150 mg/Dextrose 103 ml @ 600 mls/hr 1X ONCE IV ; Start 08/23/21 at 16:00; Stop 08/23/21 at 16:10; Status DC Amiodarone HCl 450 mg/Dextrose 259 ml @ 33 mls/hr CONT PRN IV SEE I/O RECORD Last administered on 08/24/21at 01:22; Start 08/23/21 at 16:00; Stop 08/24/21 at 15:59; Status DC Iodixanol (Visipaque 320) 100 ml STK-MED ONCE .ROUTE ; Start 08/23/21 at 16:00; Stop 08/23/21 at 16:00; Status DC Lidocaine HCl (Lidocaine 1% 20ml Vial) 20 ml STK-MED ONCE .ROUTE ; Start 08/23/21 at 16:00; Stop 08/23/21 at 16:00; Status DC Heparin Sodium/ Sodium Chloride 1,500 ml @ As Directed STK-MED ONCE .ROUTE ; Start 08/23/21 at 16:00; Stop 08/23/21 at 16:00; Status DC Amiodarone HCl (Cordarone) 150 mg STK-MED ONCE .ROUTE ; Start 08/23/21 at 16:01; Stop 08/23/21 at 16:01; Status DC Amiodarone HCl (Cordarone) 150 mg 1X ONCE IVP Last administered on 08/23/21at 16:23; Start 08/23/21 at 16:15; Stop 08/23/21 at 16:16; Status DC Aspirin (Aspirin Chewable) 324 mg 1X ONCE PO Last administered on 08/23/21at 16:07; Start 08/23/21 at 16:15; Stop 08/23/21 at 16:16; Status DC Aspirin (Aspirin Chewable) 81 mg STK-MED ONCE .ROUTE ; Start 08/23/21 at 16:06; Stop 08/23/21 at 16:06; Status DC Heparin Sodium (Porcine) (Heparin Sodium) 10,000 unit STK-MED ONCE .ROUTE ; Start 08/23/21 at 16:23; Stop 08/23/21 at 16:24; Status DC Verapamil HCl (Verapamil) 5 mg STK-MED ONCE .ROUTE ; Start 08/23/21 at 16:23; Stop 08/23/21 at 16:24; Status DC Nitroglycerin (Nitroglycerin) 200 mcg STK-MED ONCE .ROUTE ; Start 08/23/21 at 16:23; Stop 08/23/21 at 16:24; Status DC Aspirin (Aspirin Chewable) 81 mg DAILYWBKFT PO Last administered on 09/11/21at 07:36; Start 08/24/21 at 08:00 Phenylephrine HCl 50 mg/Sodium Chloride 255 ml @ 14.351 mls/ hr CONT PRN IV PER PROTOCOL Last administered on 08/23/21at 16:42; Start 08/23/21 at 16:45 Phenylephrine HCl (PHENYLEPHRINE in 0.9% NACL PF) 1 mg STK-MED ONCE IV ; Start 08/23/21 at 16:41; Stop 08/23/21 at 16:41; Status DC Heparin Sodium (Porcine) (Heparin Sodium) 10,000 unit STK-MED ONCE .ROUTE ; Start 08/23/21 at 16:47; Stop 08/23/21 at 16:47; Status DC Norepinephrine Bitartrate 8 mg/ Dextrose 258 ml @ 18.15 mls/ hr CONT PRN IV PER PROTOCOL Last administered on 09/13/21at 05:30; Start 08/23/21 at 17:00 Iodixanol (Visipaque 320) 100 ml STK-MED ONCE .ROUTE ; Start 08/23/21 at 17:07; Stop 08/23/21 at 17:07; Status DC Nitroglycerin (Nitroglycerin) 200 mcg 1X ONCE IART Last administered on 08/23/21at 16:35; Start 08/23/21 at 17:15; Stop 08/23/21 at 17:16; Status DC Verapamil HCl (Verapamil) 2.5 mg 1X ONCE IART Last administered on 08/23/21at 16:35; Start 08/23/21 at 17:15; Stop 08/23/21 at 17:16; Status DC Heparin Sodium (Porcine) (Heparin Sodium) 2,500 unit 1X ONCE IART Last administered on 08/23/21at 16:42; Start 08/23/21 at 17:15; Stop 08/23/21 at 17:16; Status DC Heparin Sodium/ Sodium Chloride (HEPARIN for ARTERIAL LINE FLUSH) 1,000 unit 1X ONCE IART Last administered on 08/23/21at 17:15; Start 08/23/21 at 17:15; Stop 08/23/21 at 17:16; Status DC Heparin Sodium/ Sodium Chloride (HEPARIN for ARTERIAL LINE FLUSH) 4,000 unit 1X ONCE IV Last administered on 08/23/21at 17:15; Start 08/23/21 at 17:15; Stop 08/23/21 at 17:16; Status DC Iodixanol (Visipaque 320) 100 ml 1X ONCE IART Last administered on 08/23/21at 17:15; Start 08/23/21 at 17:15; Stop 08/23/21 at 17:16; Status DC Heparin Sodium (Porcine) (Heparin Sodium) 5,000 unit 1X ONCE INT CAT Last administered on 08/23/21at 16:52; Start 08/23/21 at 17:15; Stop 08/23/21 at 17:16; Status DC Tirofiban/Sodium Chloride 250 ml @ As Directed STK-MED ONCE IV ; Start 08/23/21 at 17:18; Stop 08/23/21 at 17:18; Status DC Tirofiban/Sodium Chloride 250 ml @ 16.884 mls/ hr CONT PRN IV PER PROTOCOL Last administered on 08/23/21at 17:16; Start 08/23/21 at 17:45; Stop 08/24/21 at 11:44; Status DC Heparin Sodium (Porcine) (Heparin Sodium) 5,000 unit 1X ONCE IV Last administered on 08/23/21at 17:09; Start 08/23/21 at 18:30; Stop 08/23/21 at 18:31; Status DC Levetiracetam 100 ml @ 400 mls/hr Q12HR IV Last administered on 08/26/21at 11:29; Start 08/23/21 at 21:00; Stop 08/26/21 at 21:06; Status DC Heparin Sodium/ Dextrose 250 ml @ 11.256 mls/ hr CONT PRN IV PER PROTOCOL Last administered on 09/04/21at 05:21; Start 08/23/21 at 18:45; Stop 09/04/21 at 16:22; Status DC Heparin Sodium (Porcine) (Heparin Sodium) 2,350 unit PRN Q6HRS PRN IV FOR UFH LEVEL LESS THAN 0.2 Last administered on 08/27/21at 01:28; Start 08/23/21 at 18:45; Stop 09/04/21 at 16:22; Status DC Clopidogrel Bisulfate (Plavix) 600 mg 1X ONCE PO Last administered on 08/23/21at 22:06; Start 08/23/21 at 22:30; Stop 08/23/21 at 22:31; Status DC Potassium Chloride/Water 100 ml @ 100 mls/hr Q1H IV Last administered on 08/24/21at 02:00; Start 08/23/21 at 22:00; Stop 08/24/21 at 01:59; Status DC Daptomycin 520 mg/ Sodium Chloride 50 ml @ 100 mls/hr Q24H IV Last administered on 08/26/21at 12:57; Start 08/24/21 at 11:00; Stop 08/27/21 at 08:17; Status DC Linezolid (Zyvox) 600 mg BID PO Last administered on 09/01/21at 08:32; Start 08/24/21 at 10:00; Stop 09/01/21 at 09:30; Status DC Amiodarone HCl (Cordarone) 200 mg DAILY PO Last administered on 09/13/21at 09:46; Start 08/24/21 at 12:00 Furosemide (Lasix) 40 mg DAILY IVP Last administered on 09/04/21at 10:50; Start 08/25/21 at 09:00; Stop 09/05/21 at 17:31; Status DC Atorvastatin Calcium (Lipitor) 20 mg QHS PO Last administered on 08/26/21at 22:0 4; Start 08/24/21 at 21:00; Stop 08/27/21 at 13:59; Status DC Clopidogrel Bisulfate (Plavix) 75 mg 1X ONCE PO ; Start 08/24/21 at 11:30; Stop 08/24/21 at 11:31; Status UNV Clopidogrel Bisulfate (Plavix) 75 mg DAILYWBKFT PO Last administered on 09/07/21at 07:41; Start 08/24/21 at 12:00 Epinephrine HCl (EPINEPHrine SYRINGE) 1 mg STK-MED ONCE .ROUTE ; Start 08/23/21 at 17:00; Stop 08/24/21 at 12:21; Status DC Sodium Bicarbonate (Sodium Bicarb Adult 8.4% Syr) 50 meq STK-MED ONCE .ROUTE ; Start 08/23/21 at 17:00; Stop 08/24/21 at 12:21; Status DC Potassium Chloride/Water 100 ml @ 100 mls/hr Q1H IV Last administered on 08/25/21at 13:32; Start 08/25/21 at 10:00; Stop 08/25/21 at 12:59; Status DC Potassium Chloride/Water 100 ml @ 100 mls/hr Q1H IV Last administered on 08/26/21at 10:05; Start 08/26/21 at 09:00; Stop 08/26/21 at 11:59; Status DC Potassium Bicarbonate (Potassium Effervescent Tablet) 60 meq 1X ONCE PO Last administered on 08/26/21at 13:51; Start 08/26/21 at 10:30; Stop 08/26/21 at 10:31; Status DC Levetiracetam 500 mg/Dextrose 105 ml @ 100 mls/hr Q12HR IV Last administered on 08/28/21at 09:00; Start 08/26/21 at 21:30; Stop 08/28/21 at 12:27; Status DC Potassium Bicarbonate (Potassium Effervescent Tablet) 20 meq TID PO Last administered on 09/04/21at 21:00; Start 08/27/21 at 09:30; Stop 09/05/21 at 16:54; Status DC Losartan Potassium (Cozaar) 25 mg DAILY PO Last administered on 09/04/21at 10:08; Start 08/27/21 at 15:00; Stop 09/05/21 at 17:07; Status DC Spironolactone (Aldactone) 25 mg DAILY PO Last administered on 09/04/21at 13:00; Start 08/27/21 at 15:00; Stop 09/05/21 at 17:08; Status DC Atorvastatin Calcium (Lipitor) 40 mg QHS PO Last administered on 09/12/21at 21:35; Start 08/27/21 at 21:00 Atropine Sulfate (ATROPINE 1mg SYRINGE) 1 mg STK-MED ONCE .ROUTE ; Start 08/23/21 at 12:32; Stop 08/27/21 at 14:26; Status DC Levetiracetam 100 ml @ 100 mls/hr Q12HR IV ; Start 08/28/21 at 21:00; Status Cancel Levetiracetam (Keppra Oral Soln) 500 mg BID PEG Last administered on 09/13/21at 09:46; Start 08/28/21 at 21:00 Heparin Sodium (Porcine) (Heparin Sodium) 10,000 unit STK-MED ONCE .ROUTE ; Start 08/30/21 at 12:56; Stop 08/30/21 at 12:56; Status DC Verapamil HCl (Verapamil) 5 mg STK-MED ONCE .ROUTE ; Start 08/30/21 at 12:56; Stop 08/30/21 at 12:56; Status DC Nitroglycerin (Nitroglycerin) 200 mcg STK-MED ONCE .ROUTE ; Start 08/30/21 at 12:56; Stop 08/30/21 at 12:56; Status DC Iodixanol (Visipaque 320) 100 ml STK-MED ONCE .ROUTE ; Start 08/30/21 at 12:57; Stop 08/30/21 at 12:57; Status DC Lidocaine HCl (Xylocaine-Mpf 1% 2ml Vial) 2 ml STK-MED ONCE .ROUTE ; Start 08/30/21 at 12:57; Stop 08/30/21 at 12:57; Status DC Heparin Sodium/ Sodium Chloride 1,000 ml @ As Directed STK-MED ONCE .ROUTE ; Start 08/30/21 at 12:57; Stop 08/30/21 at 12:57; Status DC Nitroglycerin (Nitroglycerin) 200 mcg 1X ONCE IART Last administered on 08/30/21at 13:34; Start 08/30/21 at 13:00; Stop 08/30/21 at 13:04; Status DC Verapamil HCl (Verapamil) 2.5 mg 1X ONCE IART Last administered on 08/30/21at 13:34; Start 08/30/21 at 13:00; Stop 08/30/21 at 13:04; Status DC Heparin Sodium (Porcine) (Heparin Sodium) 2,500 unit 1X ONCE IART Last administered on 08/30/21at 13:34; Start 08/30/21 at 13:00; Stop 08/30/21 at 13:04; Status DC Heparin Sodium/ Sodium Chloride (HEPARIN for ARTERIAL LINE FLUSH) 1,000 unit 1X ONCE IART Last administered on 08/30/21at 13:00; Start 08/30/21 at 13:00; Stop 08/30/21 at 13:04; Status DC Heparin Sodium/ Sodium Chloride (HEPARIN for ARTERIAL LINE FLUSH) 1,000 unit 1X ONCE IART Last administered on 08/30/21at 13:00; Start 08/30/21 at 13:00; Stop 08/30/21 at 13:04; Status DC Iodixanol (Visipaque 320) 100 ml 1X ONCE IART Last administered on 08/30/21at 13:55; Start 08/30/21 at 13:00; Stop 08/30/21 at 13:04; Status DC Lidocaine HCl (Xylocaine-Mpf 1% 2ml Vial) 2 ml 1X ONCE INJ Last administered on 08/30/21at 13:33; Start 08/30/21 at 13:00; Stop 08/30/21 at 13:04; Status DC Info (CONTRAST GIVEN -- Rx MONITORING) 1 each PRN DAILY PRN MC SEE COMMENTS; Start 08/30/21 at 13:15; Stop 09/01/21 at 13:14; Status DC Alteplase, Recombinant (Cathflo For Central Catheter Clearance) 1 mg 1X ONCE INT CAT Last administered on 08/31/21at 12:11; Start 08/31/21 at 10:45; Stop 08/31/21 at 10:46; Status DC Methylprednisolone Sodium Succinate (SOLU-Medrol 125MG VIAL) 60 mg Q8HRS IV Last administered on 09/04/21at 06:02; Start 09/01/21 at 14:00; Stop 09/04/21 at 08:19; Status DC Methylprednisolone Sodium Succinate (SOLU-Medrol 40MG VIAL) 40 mg Q8HRS IV Last administered on 09/06/21at 05:37; Start 09/04/21 at 14:00; Stop 09/06/21 at 10:03; Status DC Fentanyl Citrate (Fentanyl 2ml Vial) 25 mcg PRN Q5MIN PRN IVP MILD PAIN 1-3; Start 09/05/21 at 06:00; Stop 09/06/21 at 05:59; Status DC Fentanyl Citrate (Fentanyl 2ml Vial) 50 mcg PRN Q5MIN PRN IVP MODERATE PAIN 4- 6; Start 09/05/21 at 06:00; Stop 09/06/21 at 05:59; Status DC Morphine Sulfate (Morphine Sulfate) 1 mg PRN Q10MIN PRN IVP SEVERE PAIN 7-10; Start 09/05/21 at 06:00; Stop 09/06/21 at 05:59; Status DC Ringer's Solution 1,000 ml @ 30 mls/hr Q24H IV ; Start 09/05/21 at 06:00; Stop 09/05/21 at 17:59; Status DC Hydromorphone HCl (Dilaudid) 0.5 mg PRN Q10MIN PRN IVP SEVERE PAIN 7-10, 2nd CHOICE; Start 09/05/21 at 06:00; Stop 09/06/21 at 05:59; Status DC Prochlorperazine Edisylate (Compazine) 5 mg PACU PRN PRN IVP NAUSEA, MRX1; Start 09/05/21 at 06:00; Stop 09/06/21 at 05:59; Status DC Metoprolol Tartrate (Lopressor) 25 mg BID PO Last administered on 09/04/21at 20:59; Start 09/04/21 at 21:00; Stop 09/05/21 at 17:31; Status DC Norepinephrine Bitartrate 8 mg/ Dextrose 258 ml @ 0 mls/hr CONT IV ; Start 09/05/21 at 09:30; Status UNV Sodium Chloride 500 ml @ 500 mls/hr 1X ONCE IV Last administered on 09/05/21at 08:00; Start 09/05/21 at 08:00; Stop 09/05/21 at 12:11; Status DC Heparin Sodium/ Dextrose 250 ml @ 11.484 mls/ hr CONT PRN IV PER PROTOCOL Last administered on 09/05/21at 15:53; Start 09/05/21 at 14:45; Stop 09/11/21 at 14:42; Status DC Heparin Sodium (Porcine) (Heparin Sodium) 2,400 unit PRN Q6HRS PRN IV FOR UFH LEVEL LESS THAN 0.2; Start 09/05/21 at 14:45; Stop 09/11/21 at 14:42; Status DC Linezolid/Dextrose 300 ml @ 300 mls/hr Q12HR IV Last administered on 09/13/21at 09:47; Start 09/05/21 at 21:00 Vancomycin HCl (Vancomycin Oral Solution) 125 mg [id number] PO ; Start 09/05/21 at 17:30; Stop 09/06/21 at 14:59; Status DC Epinephrine HCl (EPINEPHrine SYRINGE) 1 mg STK-MED ONCE .ROUTE ; Start 09/06/21 at 07:11; Stop 09/06/21 at 07:12; Status DC Digoxin (Lanoxin) 250 mcg 1X ONCE IV Last administered on 09/06/21at 08:39; Start 09/06/21 at 08:30; Stop 09/06/21 at 08:31; Status DC Methylprednisolone Sodium Succinate (SOLU-Medrol 40MG VIAL) 40 mg Q12H IV Last administered on 09/10/21at 08:07; Start 09/06/21 at 21:00; Stop 09/10/21 at 13:16; Status DC Epinephrine HCl (EPINEPHrine SYRINGE) 1 mg STK-MED ONCE .ROUTE ; Start 09/05/21 at 17:00; Stop 09/07/21 at 08:29; Status DC Meropenem 500 mg/ Sodium Chloride 50 ml @ 100 mls/hr Q6HRS IV Last administered on 09/13/21at 12:29; Start 09/10/21 at 12:00 Daptomycin 550 mg/ Sodium Chloride 50 ml @ 100 mls/hr Q24H IV Last ad ministered on 09/13/21at 09:47; Start 09/10/21 at 09:00 Pantoprazole Sodium (PROTONIX VIAL for IV PUSH) 40 mg BIDAC IVP Last admi nistered on 09/13/21at 09:45; Start 09/10/21 at 16:30 Potassium Bicarbonate (Potassium Effervescent Tablet) 40 meq 1X ONCE PEG Last administered on 09/11/21at 07:36; Start 09/11/21 at 07:15; Stop 09/11/21 at 07:22; Status DC Fentanyl Citrate (Fentanyl 2ml Vial) 25 mcg PRN Q5MIN PRN IVP MILD PAIN 1-3; Start 09/13/21 at 06:00; Stop 09/14/21 at 05:59 Fentanyl Citrate (Fentanyl 2ml Vial) 50 mcg PRN Q5MIN PRN IVP MODERATE PAIN 4- 6; Start 09/13/21 at 06:00; Stop 09/14/21 at 05:59 Morphine Sulfate (Morphine Sulfate) 1 mg PRN Q10MIN PRN IVP SEVERE PAIN 7-10; Start 09/13/21 at 06:00; Stop 09/14/21 at 05:59 Ringer's Solution 1,000 ml @ 30 mls/hr Q24H IV ; Start 09/13/21 at 06:00; Stop 09/13/21 at 17:59 Hydromorphone HCl (Dilaudid) 0.5 mg PRN Q10MIN PRN IVP SEVERE PAIN 7-10, 2nd CHOICE; Start 09/13/21 at 06:00; Stop 09/14/21 at 05:59 Prochlorperazine Edisylate (Compazine) 5 mg PACU PRN PRN IVP NAUSEA, MRX1; Start 09/13/21 at 06:00; Stop 09/14/21 at 05:59 Micafungin Sodium 100 mg/Dextrose 100 ml @ 100 mls/hr Q24H IV Last admini stered on 09/13/21at 13:09; Start 09/12/21 at 14:00 Cellulose (Surgicel Fibrillar 1x2) 1 each STK-MED ONCE .ROUTE ; Start 09/13/21 at 09:46; Stop 09/13/21 at 09:47; Status DC Bupivacaine HCl/ Epinephrine Bitart (Sensorcaine-Epi 0.25%-1:379506 Mpf) 30 ml STK-MED ONCE .ROUTE ; Start 09/13/21 at 09:46; Stop 09/13/21 at 09:47; Status DC Fentanyl Citrate (Fentanyl 2ml Vial) 100 mcg STK-MED ONCE .ROUTE ; Start 09/13/21 at 11:04; Stop 09/13/21 at 11:04; Status DC Vitals/I & O Vital Sign - Last 24 Hours 09/12/21 09/12/21 09/12/21 09/12/21 14:00 15:00 16:00 16:10 Temp 99.2 99.2 Pulse 82 85 70 Resp B/P (MAP) 83/53 91/56 94/62 Pulse Ox 98 98 99 98 O2 Delivery Ventilator Ventilator Ventilator O2 Flow Rate 4.0 09/12/21 09/12/21 09/12/21 09/12/21 16:28 16:40 17:00 18:00 Pulse 66 70 Resp B/P (MAP) 94/58 91/58 Pulse Ox 96 96 97 97 O2 Delivery Ventilator Ventilator Ventilator O2 Flow Rate 4.0 09/12/21 09/12/21 09/12/21 09/12/21 19:00 20:00 20:00 20:13 Temp 98.6 98.6 Pulse 64 62 Resp B/P (MAP) 99/64 105/61 Pulse Ox 99 99 99 O2 Delivery Ventilator Mechanical Ventilator Ventilator Ventilator 09/12/21 09/12/21 09/12/21 09/13/21 21:00 22:00 23:00 00:01 Temp 98.7 98.7 Pulse 62 60 60 60 Resp 22 B/P (MAP) 101/59 104/49 108/65 107/65 Pulse Ox 99 100 100 100 O2 Delivery Ventilator Ventilator Ventilator Ventilator 09/13/21 09/13/21 09/13/21 09/13/21 00:20 01:00 02:00 03:00 Pulse 61 60 60 Resp B/P (MAP) 107/66 109/65 112/68 Pulse Ox 99 100 100 100 O2 Delivery Ventilator Ventilator Ventilator Ventilator 09/13/21 09/13/21 09/13/21 09/13/21 04:00 04:15 05:00 06:00 Temp 98.9 98.9 Pulse 67 76 76 Resp B/P (MAP) 151/76 143/73 122/59 Pulse Ox 100 99 97 97 O2 Delivery Ventilator Ventilator Ventilator Ventilator 09/13/21 09/13/21 09/13/21 09/13/21 07:00 07:46 08:00 08:00 Temp 99.1 99.1 Pulse 73 71 Resp B/P (MAP) 113/58 130/70 Pulse Ox 100 100 100 O2 Delivery Ventilator Ventilator Ventilator Mechanical Ventilator 09/13/21 09/13/21 09/13/21 09/13/21 09:00 09:46 11:37 12:11 Temp 99.7 99.7 Pulse 71 71 77 69 Resp B/P (MAP) 102/56 102/56 115/61 97/57 Pulse Ox 100 98 98 O2 Delivery Ventilator Ventilator Ventilator 09/13/21 09/13/21 12:30 13:00 Pulse 68 Resp B/P (MAP) 98/54 Pulse Ox 97 100 O2 Delivery Ventilator Ventilator Intake and Output 09/12/21 09/12/21 09/13/21 15:00 23:00 07:00 Intake Total 558 ml 3273 ml 664 ml Output Total 445 ml 2325 ml 800 ml Balance 113 ml 948 ml -136 ml Justicifation of Admission Dx: Justifications for Admission: Justification of Admission Dx: N/A DEREK TELLEZ MD Sep 13, 2021 13:31
--- NOTE | 2021-09-13 17:15 | PDOC4 ---
OPERATIVE NOTE Date: Date: Sep 13, 2021 Pre-Op Diagnosis: Respiratory failure Post-Op Diagnosis: same Procedure Performed: Tracheostomy (specifically 8 Shiley) Surgeon: Obey Oden Anesthesia Type: GETA Blood Loss: 10 Specimans Obtained: none Findings: Normal anatomy Complications: none Operative Note: After obtaining informed consent, patient was taken to OR, induced under GETA and prepped in the usual fashion. Vertical incision made with cautery. Trachea identified and 3 0 PDS placed in 1 st tracheal ring. 2nd ring was opened with trap door incision made with 15 blade and metzenbaum. Tracheostomy placed under direct vision. End tidal CO2 detected and patient successfully oxygenated and ventilated. Surgicel placed in wound. Tracheostomy secured with 3 0 nylon. Patient tolerated procedure well and sent to ICU in stable condition. All counts correct. Wound class is 3. TERESA ODEN MD Sep 13, 2021 17:15
[2021-09-13] MEDS: fentaNYL HIGH DOSE PCA 55 ML IV PRN (17:37)
[2021-09-13] MEDS: MIDAZOLAM 100mg/100ml NS BAG 100 ML IV PRN (17:38)
[2021-09-13] MEDS ORDERED: DIGOXIN IV 500 MCG/2 ML AMPUL. IV ONE (21:15)
[2021-09-13] MEDS: ATORVASTATIN CALCIUM 40 MG TABLET. PO SCH (21:24)
[2021-09-13 23:32] LABS: HEMATOCRIT 20.2 % (39.0-53.0); RED BLOOD COUNT 2.25 x10^6/uL (4.30-5.70); RED CELL DISTRIBUTION WIDTH 16.8 % (11.5-14.5); WHITE BLOOD COUNT 10.4 x10^3/uL (4.0-11.0)
[2021-09-13 23:36] LABS: HEMOGLOBIN 6.8 g/dL (13.0-17.5)
[2021-09-13 23:44] LABS: CALCIUM 7.8 mg/dL (8.5-10.1); CREATININE 0.6 mg/dL (0.7-1.3); GFR 136.1; MAGNESIUM 1.9 mg/dL (1.8-2.4); POTASSIUM 3.4 mmol/L (3.5-5.1)
[2021-09-14] VITALS (28 sets, daily range): BP systolic 98–137; BP diastolic 51–78
[2021-09-14] MEDS: MEROPENEM 500 MG in IV NORMAL SALINE 50ML 50 ML IV SCH ×4 (00:19→16:51)
[2021-09-14] MEDS: ACETAMINOPHEN 650 MG/20.3 ML SOLUTION. PEG PRN (00:36)
[2021-09-14] MEDS: NOREPINEPHRINE VIAL 8 MG in IV DEXTROSE 5% 250 ML IV PRN (01:11)
[2021-09-14] MEDS: PROPOFOL 100 ML IV PRN ×4 (03:15→16:51)
[2021-09-14 06:03] LABS: HEMATOCRIT 23.2 % (39.0-53.0); HEMOGLOBIN 7.7 g/dL (13.0-17.5); RED BLOOD COUNT 2.6 x10^6/uL (4.30-5.70); RED CELL DISTRIBUTION WIDTH 15.3 % (11.5-14.5)
[2021-09-14 06:21] LABS: ALBUMIN 1.4 g/dL (3.4-5.0); ALBUMIN/GLOBULIN RATIO 0.4 (1.0-1.7); CALCIUM 8.3 mg/dL (8.5-10.1); CREATININE 0.5 mg/dL (0.7-1.3); GFR 167.9; TOTAL BILIRUBIN 0.4 mg/dL (0.2-1.0)
[2021-09-14 06:30] LABS: POTASSIUM 3.2 mmol/L (3.5-5.1)
[2021-09-14] MEDS ORDERED: POTASSIUM BICARB 20 MEQ EFFERVESCENT TABLET. PO ONE ×2 (07:00→14:45)
[2021-09-14] MEDS: levETIRAcetam 500 MG/5 ML ORAL SOLUTION. PEG SCH ×2 (08:02→21:05)
[2021-09-14] MEDS: PANTOPRAZOLE IV PUSH 40 MG VIAL. IVP SCH ×2 (08:03→16:54)
[2021-09-14] MEDS: ASPIRIN CHEWABLE 81 MG TABLET. PO SCH (08:03)
[2021-09-14] MEDS: AMIODARONE HCL 200 MG TABLET. PO SCH (08:03)
--- NOTE | 2021-09-14 08:31 | PDOC ---
PROGRESS NOTES Date of Service DATE: 09/14/21 TIME: 08:30 Assessment Anoxic encephalopathy, CODE BLUE, 08/23, in the setting of Covid pneumonia with respiratory failure, hyponatremia, atrial fibrillation, multiorgan damage, cardiogenic as well as septic shock He is on levetiracetam for seizures Status-post tracheostomy on 09/13 Plan Will follow at intervals Subjective None Objective Vital Signs Date Time Temp Pulse Resp B/P (MAP) Pulse Ox O2 Delivery O2 Flow Rate FiO2 09/14/21 08:03 67 119/64 09/14/21 07:00 22 40 Ventilator 09/14/21 05:18 98.5 98.5 09/13/21 18:07 4.0 Intake and Output 09/14/21 07:00 Intake Total 4038.0 ml Output Total 1800 ml Balance 2238.0 ml IV Total 2557.0 ml Tube Feeding 956 ml Blood Product IV Normal Saline Flush 400 ml Other 125 ml Output Urine Total 1800 ml Gastric Drainage Total 0 ml PHYSICAL EXAM Sedated on vent PERRL. No spontaneous extraocular movement CN: no focal findings. Muscle tone: normal. Muscle strength: Not tested DTR: Not testable Plantar reflex: Silent Gait: not examined in bed. Sensory exam: Not testable Cerebellar: Not testable Review of Relevant I have reviewed the following items shey (where applicable) has been applied. Labs Laboratory Tests Test 09/12/21 10:48 09/13/21 06:30 09/13/21 07:50 09/13/21 23:25 O2 Saturation 83 % (92-99) 96 % (92-99) Arterial Blood pH 7.41 (7.35-7.45) 7.42 (7.35-7.45) Arterial Blood pCO2 at Patient Temp 55 mmHg (35-46) 53 mmHg (35-46) Arterial Blood pO2 at Patient Temp 48 mmHg (65-108) 91 mmHg (65-108) Arterial Blood HCO3 34 mmol/L (21-28) 33 mmol/L (21-28) Arterial Blood Base Excess 8 mmol/L (-3-3) 8 mmol/L (-3-3) FiO2 40% ac 22 400 5 60 White Blood Count 13.2 x10^3/uL (4.0-11.0) 10.4 x10^3/uL (4.0-11.0) Red Blood Count 2.60 x10^6/uL (4.30-5.70) 2.25 x10^6/uL (4.30-5.70) Hemoglobin 7.6 g/dL (13.0-17.5) 6.8 g/dL (13.0-17.5) Hematocrit 23.7 % (39.0-53.0) 20.2 % (39.0-53.0) Mean Corpuscular Volume 91 fL (79-100) 90 fL (79-100) Mean Corpuscular Hemoglobin 29 pg (25-35) 30 pg (25-35) Mean Corpuscular Hemoglobin Concent 32 g/dL (31-37) 34 g/dL (31-37) Red Cell Distribution Width 16.8 % (11.5-14.5) 16.8 % (11.5-14.5) Platelet Count 139 x10^3/uL (140-400) 127 x10^3/uL (140-400) Neutrophils (%) (Auto) 92 % (31-73) Lymphocytes (%) (Auto) 3 % (24-48) Monocytes (%) (Auto) 2 % (0-9) Eosinophils (%) (Auto) 2 % (0-3) Basophils (%) (Auto) 0 % (0-3) Neutrophils # (Auto) 12.2 x10^3/uL (1.8-7.7) Lymphocytes # (Auto) 0.3 x10^3/uL (1.0-4.8) Monocytes # (Auto) 0.3 x10^3/uL (0.0-1.1) Eosinophils # (Auto) 0.3 x10^3/uL (0.0-0.7) Basophils # (Auto) 0.0 x10^3/uL (0.0-0.2) Segmented Neutrophils % 88 % (35-66) Band Neutrophils % 5 % (0-9) Lymphocytes % 2 % (24-48) Monocytes % 1 % (0-10) Eosinophils % 4 % (0-5) Platelet Estimate Decreased (ADEQUATE) Sodium Level 140 mmol/L (136-145) 139 mmol/L (136-145) Potassium Level 3.7 mmol/L (3.5-5.1) 3.4 mmol/L (3.5-5.1) Chloride Level 101 mmol/L (98-107) 99 mmol/L (98-107) Carbon Dioxide Level 33 mmol/L (21-32) 35 mmol/L (21-32) Anion Gap 6 (6-14) 5 (6-14) Blood Urea Nitrogen 15 mg/dL (8-26) 12 mg/dL (8-26) Creatinine 0.5 mg/dL (0.7-1.3) 0.6 mg/dL (0.7-1.3) Estimated GFR (Cockcroft-Gault) 167.9 136.1 BUN/Creatinine Ratio 30 (6-20) Glucose Level 113 mg/dL (70-99) 148 mg/dL (70-99) Calcium Level 7.9 mg/dL (8.5-10.1) 7.8 mg/dL (8.5-10.1) Total Bilirubin 0.4 mg/dL (0.2-1.0) Aspartate Amino Transf (AST/SGOT) 41 U/L (15-37) Alanine Aminotransferase (ALT/SGPT) 44 U/L (16-63) Alkaline Phosphatase 118 U/L (46-116) Creatine Kinase 198 U/L (39-308) Total Protein 5.4 g/dL (6.4-8.2) Albumin 1.6 g/dL (3.4-5.0) Albumin/Globulin Ratio 0.4 (1.0-1.7) Magnesium Level 1.9 mg/dL (1.8-2.4) Test 09/14/21 05:50 White Blood Count 8.0 x10^3/uL (4.0-11.0) Red Blood Count 2.60 x10^6/uL (4.30-5.70) Hemoglobin 7.7 g/dL (13.0-17.5) Hematocrit 23.2 % (39.0-53.0) Mean Corpuscular Volume 90 fL (79-100) Mean Corpuscular Hemoglobin 30 pg (25-35) Mean Corpuscular Hemoglobin Concent 33 g/dL (31-37) Red Cell Distribution Width 15.3 % (11.5-14.5) Platelet Count 119 x10^3/uL (140-400) Sodium Level 142 mmol/L (136-145) Potassium Level 3.2 mmol/L (3.5-5.1) Chloride Level 102 mmol/L (98-107) Carbon Dioxide Level 33 mmol/L (21-32) Anion Gap 7 (6-14) Blood Urea Nitrogen 12 mg/dL (8-26) Creatinine 0.5 mg/dL (0.7-1.3) Estimated GFR (Cockcroft-Gault) 167.9 BUN/Creatinine Ratio 24 (6-20) Glucose Level 106 mg/dL (70-99) Calcium Level 8.3 mg/dL (8.5-10.1) Total Bilirubin 0.4 mg/dL (0.2-1.0) Aspartate Amino Transf (AST/SGOT) 50 U/L (15-37) Alanine Aminotransferase (ALT/SGPT) 46 U/L (16-63) Alkaline Phosphatase 113 U/L (46-116) Total Protein 5.0 g/dL (6.4-8.2) Albumin 1.4 g/dL (3.4-5.0) Albumin/Globulin Ratio 0.4 (1.0-1.7) Laboratory Tests Test 09/13/21 23:25 09/14/21 05:50 White Blood Count 10.4 x10^3/uL (4.0-11.0) 8.0 x10^3/uL (4.0-11.0) Red Blood Count 2.25 x10^6/uL (4.30-5.70) 2.60 x10^6/uL (4.30-5.70) Hemoglobin 6.8 g/dL (13.0-17.5) 7.7 g/dL (13.0-17.5) Hematocrit 20.2 % (39.0-53.0) 23.2 % (39.0-53.0) Mean Corpuscular Volume 90 fL (79-100) 90 fL (79-100) Mean Corpuscular Hemoglobin 30 pg (25-35) 30 pg (25-35) Mean Corpuscular Hemoglobin Concent 34 g/dL (31-37) 33 g/dL (31-37) Red Cell Distribution Width 16.8 % (11.5-14.5) 15.3 % (11.5-14.5) Platelet Count 127 x10^3/uL (140-400) 119 x10^3/uL (140-400) Sodium Level 139 mmol/L (136-145) 142 mmol/L (136-145) Potassium Level 3.4 mmol/L (3.5-5.1) 3.2 mmol/L (3.5-5.1) Chloride Level 99 mmol/L (98-107) 102 mmol/L (98-107) Carbon Dioxide Level 35 mmol/L (21-32) 33 mmol/L (21-32) Anion Gap 5 (6-14) 7 (6-14) Blood Urea Nitrogen 12 mg/dL (8-26) 12 mg/dL (8-26) Creatinine 0.6 mg/dL (0.7-1.3) 0.5 mg/dL (0.7-1.3) Estimated GFR (Cockcroft-Gault) 136.1 167.9 Glucose Level 148 mg/dL (70-99) 106 mg/dL (70-99) Calcium Level 7.8 mg/dL (8.5-10.1) 8.3 mg/dL (8.5-10.1) Magnesium Level 1.9 mg/dL (1.8-2.4) BUN/Creatinine Ratio 24 (6-20) Total Bilirubin 0.4 mg/dL (0.2-1.0) Aspartate Amino Transf (AST/SGOT) 50 U/L (15-37) Alanine Aminotransferase (ALT/SGPT) 46 U/L (16-63) Alkaline Phosphatase 113 U/L (46-116) Total Protein 5.0 g/dL (6.4-8.2) Albumin 1.4 g/dL (3.4-5.0) Albumin/Globulin Ratio 0.4 (1.0-1.7) Microbiology 09/05/21 Urine Culture - Final, Complete 09/05/21 Blood Culture - Final, Complete NO GROWTH AFTER 5 DAYS 08/23/21 Respiratory Culture Gram Stain - Final, Complete 08/23/21 Respiratory Culture - Final, Complete Medications Current Medications Dexamethasone Sodium Phosphate (Decadron) 6 mg DAILY IVP Last administered on 08/10/21at 08:29; Start 08/01/21 at 09:00; Stop 08/10/21 at 09:01; Status DC Heparin Sodium (Porcine) (Heparin Sodium) 5,000 unit Q8HRS SQ Last administered on 08/20/21at 05:41; Start 07/31/21 at 14:00; Stop 08/20/21 at 08:37; Status DC Famotidine (Pepcid Vial) 20 mg BID IVP Last administered on 09/10/21at 08:07; Start 07/31/21 at 14:00; Stop 09/10/21 at 12:40; Status DC Fentanyl Citrate 30 ml @ 2.5 mls/hr CONT PRN IV SEE PROTOCOL Last administered on 07/31/21at 12:49; Start 07/31/21 at 12:15; Stop 07/31/21 at 16:19; Status DC Midazolam HCl 100 ml @ 1 mls/hr CONT PRN IV SEE PROTOCOL Last administered on 09/13/21at 17:38; Start 07/31/21 at 12:15 Propofol 100 ml @ 3.45 mls/hr CONT PRN IV PER PROTOCOL Last administered on 09/14/21at 08:09; Start 07/31/21 at 12:15 Vecuronium [place] (Norcuron Bolus) 6 mg PRN 1X PRN IV VENT INDUCTION; Start 07/31/21 at 12:15; Stop 08/01/21 at 12:14; Status DC Glycerin/ Hypromellose/ Polyethylene (Artificial Tears) 1 drop PRN Q1HR PRN OU DRY EYE; Start 07/31/21 at 12:15 Dexmedetomidine HCl 400 mcg/ Sodium Chloride 100 ml @ 0 mls/hr CONT PRN IV PER PROTOCOL Last administered on 08/17/21at 12:55; Start 07/31/21 at 12:15 Midazolam HCl (Versed) 5 mg PRN 1X PRN IVP VENT INDUCTION; Start 07/31/21 at 12:15; Stop 08/01/21 at 12:14; Status DC Sodium Chloride 500 ml @ 500 mls/hr 1X PRN PRN IV SEE COMMENTS Last administered on 09/10/21at 17:16; Start 07/31/21 at 12:15 Atropine Sulfate (ATROPINE 0.5mg SYRINGE) 0.5 mg PRN Q5MIN PRN IV SEE COMMENTS; Start 07/31/21 at 12:15 Famotidine (Pepcid Vial) 20 mg BID IVP ; Start 07/31/21 at 21:00; Status UNV Piperacillin Sod/ Tazobactam Sod (Zosyn Per Pharmacy) 1 each PRN DAILY PRN MC SEE COMMENTS; Start 07/31/21 at 15:15; Stop 08/08/21 at 12:29; Status DC Piperacillin Sod/ Tazobactam Sod 3.375 gm/Sodium Chloride 50 ml @ 100 mls/hr Q6HRS IV Last administered on 08/07/21at 11:20; Start 07/31/21 at 18:00; Stop 08/07/21 at 17:59; Status DC Fentanyl Citrate 55 ml @ 1 mls/hr CONT PRN IV SEE PROTOCOL Last administered on 09/13/21at 17:37; Start 07/31/21 at 15:45 Insulin Human Lispro (HumaLOG) 0-7 UNITS Q6HRS SQ ; Start 08/02/21 at 06:00; Stop 08/07/21 at 08:09; Status DC Dextrose (Dextrose 50%-Water Syringe) 12.5 gm PRN Q15MIN PRN IV SEE COMMENTS; Start 08/01/21 at 23:00 Vecuronium [place] (Norcuron Bolus) 6 mg PRN Q6HRS PRN IV VENTILATOR COMPLIANCE Last administered on 09/10/21at 05:33; Start 08/06/21 at 13:45 Vecuronium [place] (Norcuron Bolus) 10 mg STK-MED ONCE IV ; Start 08/06/21 at 13:34; Stop 08/07/21 at 13:38; Status DC Sterile Water (WATER for RESP) 1,000 ml CONT PRN INH VIA VAPOTHERM DEVICE; Start 08/12/21 at 09:45; Status Cancel Dexamethasone Sodium Phosphate (Decadron) 6 mg DAILY IVP ; Start 08/17/21 at 09:00; Stop 08/16/21 at 13:31; Status DC Dexamethasone Sodium Phosphate (Decadron) 10 mg 1X ONCE IV ; Start 08/16/21 at 12:30; Stop 08/16/21 at 13:31; Status DC Acetaminophen (Tylenol) 650 mg PRN Q6HRS PRN PEG MILD PAIN / TEMP > 100.3'F Last administered on 09/14/21at 00:36; Start 08/17/21 at 00:15 Heparin Sodium (Porcine) (Heparin Sodium) 5,000 unit Q8HRS SQ Last administered on 08/23/21at 05:39; Start 08/21/21 at 14:00; Stop 08/23/21 at 18:33; Status DC Fentanyl Citrate (Fentanyl 2ml Vial) 25 mcg PRN Q5MIN PRN IVP MILD PAIN 1-3; Start 08/21/21 at 06:00; Stop 08/22/21 at 05:59; Status DC Fentanyl Citrate (Fentanyl 2ml Vial) 50 mcg PRN Q5MIN PRN IVP MODERATE PAIN 4- 6; Start 08/21/21 at 06:00; Stop 08/22/21 at 05:59; Status DC Morphine Sulfate (Morphine Sulfate) 1 mg PRN Q10MIN PRN IVP SEVERE PAIN 7-10; Start 08/21/21 at 06:00; Stop 08/22/21 at 05:59; Status DC Ringer's Solution 1,000 ml @ 30 mls/hr Q24H IV ; Start 08/21/21 at 06:00; Stop 08/21/21 at 17:59; Status DC Hydromorphone HCl (Dilaudid) 0.5 mg PRN Q10MIN PRN IVP SEVERE PAIN 7-10, 2nd CHOICE; Start 08/21/21 at 06:00; Stop 08/22/21 at 05:59; Status DC Prochlorperazine Edisylate (Compazine) 5 mg PACU PRN PRN IVP NAUSEA, MRX1; Start 08/21/21 at 06:00; Stop 08/22/21 at 05:59; Status DC Haloperidol Lactate (Haldol Inj) 5 mg PRN Q8HRS PRN IVP AGITATION; Start 08/22/21 at 10:45; Stop 08/22/21 at 10:45; Status DC Haloperidol Lactate (Haldol Inj) 5 mg Q8HRS IVP Last administered on 08/23/21at 05:38; Start 08/22/21 at 11:00; Stop 08/24/21 at 13:52; Status DC Acetaminophen (Tylenol Supp) 650 mg Q4H ONCE ID Last administered on 08/22/21at 11:45; Start 08/22/21 at 11:30; Stop 08/22/21 at 11:31; Status DC Vancomycin HCl (Vanco Per Pharmacy) 1 each PRN DAILY PRN MC SEE COMMENTS Last administered on 08/23/21at 12:21; Start 08/22/21 at 11:30; Stop 08/24/21 at 09:14; Status DC Piperacillin Sod/ Tazobactam Sod (Zosyn Per Pharmacy) 1 each PRN DAILY PRN MC SEE COMMENTS; Start 08/22/21 at 11:30; Stop 09/10/21 at 11:37; Status DC Piperacillin Sod/ Tazobactam Sod 4.5 gm/Dextrose 100 ml @ 200 mls/hr Q6HRS IV Last administered on 09/10/21at 05:32; Start 08/22/21 at 12:00; Stop 09/10/21 at 08:13; Status DC Vancomycin HCl 2 gm/Sodium Chloride 500 ml @ 250 mls/hr 1X ONCE IV Last administered on 08/22/21at 12:34; Start 08/22/21 at 13:00; Stop 08/22/21 at 14:59; Status DC Acetaminophen (Tylenol Supp) 650 mg PRN Q4HRS PRN ID MILD PAIN / TEMP > 100.3'F Last administered on 08/22/21at 23:32; Start 08/22/21 at 11:45 Dextrose/Lactated Ringer's 1,000 ml @ 80 mls/hr [id number] IV Last administered on 08/31/21at 21:16; Start 08/22/21 at 12:45; Stop 09/01/21 at 12:01; Status DC Vancomycin HCl 1 gm/Sodium Chloride 250 ml @ 250 mls/hr Q8H IV Last administered on 08/24/21at 04:00; Start 08/22/21 at 20:00; Stop 08/24/21 at 09:14; Status DC Vancomycin HCl (Vancomycin Trough Level) 1 each 1X ONCE MC ; Start 08/23/21 at 11:30; Stop 08/24/21 at 09:14; Status DC Etomidate (Amidate) 20 mg STK-MED ONCE IV ; Start 08/23/21 at 11:25; Stop 08/23/21 at 11:25; Status DC Succinylcholine Chloride (Anectine) 200 mg STK-MED ONCE .ROUTE ; Start 08/23/21 at 11:25; Stop 08/23/21 at 11:26; Status DC Etomidate (Amidate) 20 mg 1X ONCE IV Last administered on 08/23/21at 12:21; Start 08/23/21 at 12:15; Stop 08/23/21 at 12:16; Status DC Succinylcholine Chloride (Anectine) 100 mg 1X ONCE IV Last administered on 08/23/21at 12:21; Start 08/23/21 at 12:15; Stop 08/23/21 at 12:16; Status DC Methylprednisolone Sodium Succinate (SOLU-Medrol 125MG VIAL) 125 mg Q8HRS IV Last administered on 09/01/21at 06:08; Start 08/23/21 at 14:00; Stop 09/01/21 at 12:01; Status DC Furosemide (Lasix) 40 mg 1X ONCE IVP Last administered on 08/23/21at 13:19; Start 08/23/21 at 12:45; Stop 08/23/21 at 12:56; Status DC Furosemide (Lasix) 40 mg DAILY IVP Last administered on 08/24/21at 07:24; Start 08/24/21 at 09:00; Stop 08/24/21 at 11:24; Status DC Digoxin (Lanoxin) 500 mcg 1X ONCE IV Last administered on 08/23/21at 15:16; Start 08/23/21 at 15:30; Stop 08/23/21 at 15:31; Status DC Amiodarone HCl 150 mg/Dextrose 103 ml @ 600 mls/hr 1X ONCE IV ; Start 08/23/21 at 16:00; Stop 08/23/21 at 16:10; Status DC Amiodarone HCl 450 mg/Dextrose 259 ml @ 33 mls/hr CONT PRN IV SEE I/O RECORD Last administered on 08/24/21at 01:22; Start 08/23/21 at 16:00; Stop 08/24/21 at 15:59; Status DC Iodixanol (Visipaque 320) 100 ml STK-MED ONCE .ROUTE ; Start 08/23/21 at 16:00; Stop 08/23/21 at 16:00; Status DC Lidocaine HCl (Lidocaine 1% 20ml Vial) 20 ml STK-MED ONCE .ROUTE ; Start 08/23/21 at 16:00; Stop 08/23/21 at 16:00; Status DC Heparin Sodium/ Sodium Chloride 1,500 ml @ As Directed STK-MED ONCE .ROUTE ; Start 08/23/21 at 16:00; Stop 08/23/21 at 16:00; Status DC Amiodarone HCl (Cordarone) 150 mg STK-MED ONCE .ROUTE ; Start 08/23/21 at 16:01; Stop 08/23/21 at 16:01; Status DC Amiodarone HCl (Cordarone) 150 mg 1X ONCE IVP Last administered on 08/23/21at 16:23; Start 08/23/21 at 16:15; Stop 08/23/21 at 16:16; Status DC Aspirin (Aspirin Chewable) 324 mg 1X ONCE PO Last administered on 08/23/21at 16:07; Start 08/23/21 at 16:15; Stop 08/23/21 at 16:16; Status DC Aspirin (Aspirin Chewable) 81 mg STK-MED ONCE .ROUTE ; Start 08/23/21 at 16:06; Stop 08/23/21 at 16:06; Status DC Heparin Sodium (Porcine) (Heparin Sodium) 10,000 unit STK-MED ONCE .ROUTE ; Start 08/23/21 at 16:23; Stop 08/23/21 at 16:24; Status DC Verapamil HCl (Verapamil) 5 mg STK-MED ONCE .ROUTE ; Start 08/23/21 at 16:23; Stop 08/23/21 at 16:24; Status DC Nitroglycerin (Nitroglycerin) 200 mcg STK-MED ONCE .ROUTE ; Start 08/23/21 at 16:23; Stop 08/23/21 at 16:24; Status DC Aspirin (Aspirin Chewable) 81 mg DAILYWBKFT PO Last administered on 09/14/21at 08:03; Start 08/24/21 at 08:00 Phenylephrine HCl 50 mg/Sodium Chloride 255 ml @ 14.351 mls/ hr CONT PRN IV PER PROTOCOL Last administered on 08/23/21at 16:42; Start 08/23/21 at 16:45 Phenylephrine HCl (PHENYLEPHRINE in 0.9% NACL PF) 1 mg STK-MED ONCE IV ; Start 08/23/21 at 16:41; Stop 08/23/21 at 16:41; Status DC Heparin Sodium (Porcine) (Heparin Sodium) 10,000 unit STK-MED ONCE .ROUTE ; Start 08/23/21 at 16:47; Stop 08/23/21 at 16:47; Status DC Norepinephrine Bitartrate 8 mg/ Dextrose 258 ml @ 18.15 mls/ hr CONT PRN IV PER PROTOCOL Last administered on 09/14/21at 01:11; Start 08/23/21 at 17:00 Iodixanol (Visipaque 320) 100 ml STK-MED ONCE .ROUTE ; Start 08/23/21 at 17:07; Stop 08/23/21 at 17:07; Status DC Nitroglycerin (Nitroglycerin) 200 mcg 1X ONCE IART Last administered on 08/23/21at 16:35; Start 08/23/21 at 17:15; Stop 08/23/21 at 17:16; Status DC Verapamil HCl (Verapamil) 2.5 mg 1X ONCE IART Last administered on 08/23/21at 16:35; Start 08/23/21 at 17:15; Stop 08/23/21 at 17:16; Status DC Heparin Sodium (Porcine) (Heparin Sodium) 2,500 unit 1X ONCE IART Last administered on 08/23/21at 16:42; Start 08/23/21 at 17:15; Stop 08/23/21 at 17:16; Status DC Heparin Sodium/ Sodium Chloride (HEPARIN for ARTERIAL LINE FLUSH) 1,000 unit 1X ONCE IART Last administered on 08/23/21at 17:15; Start 08/23/21 at 17:15; Stop 08/23/21 at 17:16; Status DC Heparin Sodium/ Sodium Chloride (HEPARIN for ARTERIAL LINE FLUSH) 4,000 unit 1X ONCE IV Last administered on 08/23/21at 17:15; Start 08/23/21 at 17:15; Stop 08/23/21 at 17:16; Status DC Iodixanol (Visipaque 320) 100 ml 1X ONCE IART Last administered on 08/23/21at 17:15; Start 08/23/21 at 17:15; Stop 08/23/21 at 17:16; Status DC Heparin Sodium (Porcine) (Heparin Sodium) 5,000 unit 1X ONCE INT CAT Last administered on 08/23/21at 16:52; Start 08/23/21 at 17:15; Stop 08/23/21 at 17:16; Status DC Tirofiban/Sodium Chloride 250 ml @ As Directed STK-MED ONCE IV ; Start 08/23/21 at 17:18; Stop 08/23/21 at 17:18; Status DC Tirofiban/Sodium Chloride 250 ml @ 16.884 mls/ hr CONT PRN IV PER PROTOCOL Last administered on 08/23/21at 17:16; Start 08/23/21 at 17:45; Stop 08/24/21 at 11:44; Status DC Heparin Sodium (Porcine) (Heparin Sodium) 5,000 unit 1X ONCE IV Last administered on 08/23/21at 17:09; Start 08/23/21 at 18:30; Stop 08/23/21 at 18:31; Status DC Levetiracetam 100 ml @ 400 mls/hr Q12HR IV Last administered on 08/26/21at 11:29; Start 08/23/21 at 21:00; Stop 08/26/21 at 21:06; Status DC Heparin Sodium/ Dextrose 250 ml @ 11.256 mls/ hr CONT PRN IV PER PROTOCOL Last administered on 09/04/21at 05:21; Start 08/23/21 at 18:45; Stop 09/04/21 at 16:22; Status DC Heparin Sodium (Porcine) (Heparin Sodium) 2,350 unit PRN Q6HRS PRN IV FOR UFH LEVEL LESS THAN 0.2 Last administered on 08/27/21at 01:28; Start 08/23/21 at 18:45; Stop 09/04/21 at 16:22; Status DC Clopidogrel Bisulfate (Plavix) 600 mg 1X ONCE PO Last administered on 08/23/21at 22:06; Start 08/23/21 at 22:30; Stop 08/23/21 at 22:31; Status DC Potassium Chloride/Water 100 ml @ 100 mls/hr Q1H IV Last administered on 08/24/21at 02:00; Start 08/23/21 at 22:00; Stop 08/24/21 at 01:59; Status DC Daptomycin 520 mg/ Sodium Chloride 50 ml @ 100 mls/hr Q24H IV Last administered on 08/26/21at 12:57; Start 08/24/21 at 11:00; Stop 08/27/21 at 08:17; Status DC Linezolid (Zyvox) 600 mg BID PO Last administered on 09/01/21at 08:32; Start 08/24/21 at 10:00; Stop 09/01/21 at 09:30; Status DC Amiodarone HCl (Cordarone) 200 mg DAILY PO Last administered on 09/14/21at 08:03; Start 08/24/21 at 12:00 Furosemide (Lasix) 40 mg DAILY IVP Last administered on 09/04/21at 10:50; Start 08/25/21 at 09:00; Stop 09/05/21 at 17:31; Status DC Atorvastatin Calcium (Lipitor) 20 mg QHS PO Last administered on 08/26/21at 22:04; Start 08/24/21 at 21:00; Stop 08/27/21 at 13:59; Status DC Clopidogrel Bisulfate (Plavix) 75 mg 1X ONCE PO ; Start 08/24/21 at 11:30; Stop 08/24/21 at 11:31; Status UNV Clopidogrel Bisulfate (Plavix) 75 mg DAILYWBKFT PO Last administered on 09/07/21at 07:41; Start 08/24/21 at 12:00; Stop 09/13/21 at 13:53; Status DC Epinephrine HCl (EPINEPHrine SYRINGE) 1 mg STK-MED ONCE .ROUTE ; Start 08/23/21 at 17:00; Stop 08/24/21 at 12:21; Status DC Sodium Bicarbonate (Sodium Bicarb Adult 8.4% Syr) 50 meq STK-MED ONCE .ROUTE ; Start 08/23/21 at 17:00; Stop 08/24/21 at 12:21; Status DC Potassium Chloride/Water 100 ml @ 100 mls/hr Q1H IV Last administered on 08/25/21at 13:32; Start 08/25/21 at 10:00; Stop 08/25/21 at 12:59; Status DC Potassium Chloride/Water 100 ml @ 100 mls/hr Q1H IV Last administered on 08/26/21at 10:05; Start 08/26/21 at 09:00; Stop 08/26/21 at 11:59; Status DC Potassium Bicarbonate (Potassium Effervescent Tablet) 60 meq 1X ONCE PO Last administered on 08/26/21at 13:51; Start 08/26/21 at 10:30; Stop 08/26/21 at 10:31; Status DC Levetiracetam 500 mg/Dextrose 105 ml @ 100 mls/hr Q12HR IV Last administered on 08/28/21at 09:00; Start 08/26/21 at 21:30; Stop 08/28/21 at 12:27; Status DC Potassium Bicarbonate (Potassium Effervescent Tablet) 20 meq TID PO Last administered on 09/04/21at 21:00; Start 08/27/21 at 09:30; Stop 09/05/21 at 16:54; Status DC Losartan Potassium (Cozaar) 25 mg DAILY PO Last administered on 09/04/21at 10:08; Start 08/27/21 at 15:00; Stop 09/05/21 at 17:07; Status DC Spironolactone (Aldactone) 25 mg DAILY PO Last administered on 09/04/21at 13:00; Start 08/27/21 at 15:00; Stop 09/05/21 at 17:08; Status DC Atorvastatin Calcium (Lipitor) 40 mg QHS PO Last administered on 09/13/21at 21:24; Start 08/27/21 at 21:00 Atropine Sulfate (ATROPINE 1mg SYRINGE) 1 mg STK-MED ONCE .ROUTE ; Start 08/23/21 at 12:32; Stop 08/27/21 at 14:26; Status DC Levetiracetam 100 ml @ 100 mls/hr Q12HR IV ; Start 08/28/21 at 21:00; Status Cancel Levetiracetam (Keppra Oral Soln) 500 mg BID PEG Last administered on 09/14/21at 08:02; Start 08/28/21 at 21:00 Heparin Sodium (Porcine) (Heparin Sodium) 10,000 unit STK-MED ONCE .ROUTE ; Start 08/30/21 at 12:56; Stop 08/30/21 at 12:56; Status DC Verapamil HCl (Verapamil) 5 mg STK-MED ONCE .ROUTE ; Start 08/30/21 at 12:56; Stop 08/30/21 at 12:56; Status DC Nitroglycerin (Nitroglycerin) 200 mcg STK-MED ONCE .ROUTE ; Start 08/30/21 at 12:56; Stop 08/30/21 at 12:56; Status DC Iodixanol (Visipaque 320) 100 ml STK-MED ONCE .ROUTE ; Start 08/30/21 at 12:57; Stop 08/30/21 at 12:57; Status DC Lidocaine HCl (Xylocaine-Mpf 1% 2ml Vial) 2 ml STK-MED ONCE .ROUTE ; Start 08/30/21 at 12:57; Stop 08/30/21 at 12:57; Status DC Heparin Sodium/ Sodium Chloride 1,000 ml @ As Directed STK-MED ONCE .ROUTE ; Start 08/30/21 at 12:57; Stop 08/30/21 at 12:57; Status DC Nitroglycerin (Nitroglycerin) 200 mcg 1X ONCE IART Last administered on 08/30/21at 13:34; Start 08/30/21 at 13:00; Stop 08/30/21 at 13:04; Status DC Verapamil HCl (Verapamil) 2.5 mg 1X ONCE IART Last administered on 08/30/21at 13:34; Start 08/30/21 at 13:00; Stop 08/30/21 at 13:04; Status DC Heparin Sodium (Porcine) (Heparin Sodium) 2,500 unit 1X ONCE IART Last administered on 08/30/21at 13:34; Start 08/30/21 at 13:00; Stop 08/30/21 at 13:04; Status DC Heparin Sodium/ Sodium Chloride (HEPARIN for ARTERIAL LINE FLUSH) 1,000 unit 1X ONCE IART Last administered on 08/30/21at 13:00; Start 08/30/21 at 13:00; Stop 08/30/21 at 13:04; Status DC Heparin Sodium/ Sodium Chloride (HEPARIN for ARTERIAL LINE FLUSH) 1,000 unit 1X ONCE IART Last administered on 08/30/21at 13:00; Start 08/30/21 at 13:00; Stop 08/30/21 at 13:04; Status DC Iodixanol (Visipaque 320) 100 ml 1X ONCE IART Last administered on 08/30/21at 13:55; Start 08/30/21 at 13:00; Stop 08/30/21 at 13:04; Status DC Lidocaine HCl (Xylocaine-Mpf 1% 2ml Vial) 2 ml 1X ONCE INJ Last administered on 08/30/21at 13:33; Start 08/30/21 at 13:00; Stop 08/30/21 at 13:04; Status DC Info (CONTRAST GIVEN -- Rx MONITORING) 1 each PRN DAILY PRN MC SEE COMMENTS; Start 08/30/21 at 13:15; Stop 09/01/21 at 13:14; Status DC Alteplase, Recombinant (Cathflo For Central Catheter Clearance) 1 mg 1X ONCE INT CAT Last administered on 08/31/21at 12:11; Start 08/31/21 at 10:45; Stop 08/31/21 at 10:46; Status DC Methylprednisolone Sodium Succinate (SOLU-Medrol 125MG VIAL) 60 mg Q8HRS IV Last administered on 09/04/21at 06:02; Start 09/01/21 at 14:00; Stop 09/04/21 at 08:19; Status DC Methylprednisolone Sodium Succinate (SOLU-Medrol 40MG VIAL) 40 mg Q8HRS IV Last administered on 09/06/21at 05:37; Start 09/04/21 at 14:00; Stop 09/06/21 at 10:03; Status DC Fentanyl Citrate (Fentanyl 2ml Vial) 25 mcg PRN Q5MIN PRN IVP MILD PAIN 1-3; Start 09/05/21 at 06:00; Stop 09/06/21 at 05:59; Status DC Fentanyl Citrate (Fentanyl 2ml Vial) 50 mcg PRN Q5MIN PRN IVP MODERATE PAIN 4- 6; Start 09/05/21 at 06:00; Stop 09/06/21 at 05:59; Status DC Morphine Sulfate (Morphine Sulfate) 1 mg PRN Q10MIN PRN IVP SEVERE PAIN 7-10; Start 09/05/21 at 06:00; Stop 09/06/21 at 05:59; Status DC Ringer's Solution 1,000 ml @ 30 mls/hr Q24H IV ; Start 09/05/21 at 06:00; Stop 09/05/21 at 17:59; Status DC Hydromorphone HCl (Dilaudid) 0.5 mg PRN Q10MIN PRN IVP SEVERE PAIN 7-10, 2nd CHOICE; Start 09/05/21 at 06:00; Stop 09/06/21 at 05:59; Status DC Prochlorperazine Edisylate (Compazine) 5 mg PACU PRN PRN IVP NAUSEA, MRX1; Start 09/05/21 at 06:00; Stop 09/06/21 at 05:59; Status DC Metoprolol Tartrate (Lopressor) 25 mg BID PO Last administered on 09/04/21at 20:59; Start 09/04/21 at 21:00; Stop 09/05/21 at 17:31; Status DC Norepinephrine Bitartrate 8 mg/ Dextrose 258 ml @ 0 mls/hr CONT IV ; Start 09/05/21 at 09:30; Status UNV Sodium Chloride 500 ml @ 500 mls/hr 1X ONCE IV Last administered on 09/05/21at 08:00; Start 09/05/21 at 08:00; Stop 09/05/21 at 12:11; Status DC Heparin Sodium/ Dextrose 250 ml @ 11.484 mls/ hr CONT PRN IV PER PROTOCOL Last administered on 09/05/21at 15:53; Start 09/05/21 at 14:45; Stop 09/11/21 at 14:42; Status DC Heparin Sodium (Porcine) (Heparin Sodium) 2,400 unit PRN Q6HRS PRN IV FOR UFH LEVEL LESS THAN 0.2; Start 09/05/21 at 14:45; Stop 09/11/21 at 14:42; Status DC Linezolid/Dextrose 300 ml @ 300 mls/hr Q12HR IV Last administered on 09/14/21at 08:08; Start 09/05/21 at 21:00 Vancomycin HCl (Vancomycin Oral Solution) 125 mg [id number] PO ; Start 09/05/21 at 17:30; Stop 09/06/21 at 14:59; Status DC Epinephrine HCl (EPINEPHrine SYRINGE) 1 mg STK-MED ONCE .ROUTE ; Start 09/06/21 at 07:11; Stop 09/06/21 at 07:12; Status DC Digoxin (Lanoxin) 250 mcg 1X ONCE IV Last administered on 09/06/21at 08:39; Start 09/06/21 at 08:30; Stop 09/06/21 at 08:31; Status DC Methylprednisolone Sodium Succinate (SOLU-Medrol 40MG VIAL) 40 mg Q12H IV Last administered on 09/10/21at 08:07; Start 09/06/21 at 21:00; Stop 09/10/21 at 13:16; Status DC Epinephrine HCl (EPINEPHrine SYRINGE) 1 mg STK-MED ONCE .ROUTE ; Start 09/05/21 at 17:00; Stop 09/07/21 at 08:29; Status DC Meropenem 500 mg/ Sodium Chloride 50 ml @ 100 mls/hr Q6HRS IV Last adm inistered on 09/14/21at 05:32; Start 09/10/21 at 12:00 Daptomycin 550 mg/ Sodium Chloride 50 ml @ 100 mls/hr Q24H IV Last admini stered on 09/13/21at 09:47; Start 09/10/21 at 09:00 Pantoprazole Sodium (PROTONIX VIAL for IV PUSH) 40 mg BIDAC IVP Last administ ered on 09/14/21at 08:03; Start 09/10/21 at 16:30 Potassium Bicarbonate (Potassium Effervescent Tablet) 40 meq 1X ONCE PEG Last administered on 09/11/21at 07:36; Start 09/11/21 at 07:15; Stop 09/11/21 at 07:22; Status DC Fentanyl Citrate (Fentanyl 2ml Vial) 25 mcg PRN Q5MIN PRN IVP MILD PAIN 1-3; Start 09/13/21 at 06:00; Stop 09/14/21 at 06:00; Status DC Fentanyl Citrate (Fentanyl 2ml Vial) 50 mcg PRN Q5MIN PRN IVP MODERATE PAIN 4- 6; Start 09/13/21 at 06:00; Stop 09/14/21 at 06:00; Status DC Morphine Sulfate (Morphine Sulfate) 1 mg PRN Q10MIN PRN IVP SEVERE PAIN 7-10; Start 09/13/21 at 06:00; Stop 09/14/21 at 06:00; Status DC Ringer's Solution 1,000 ml @ 30 mls/hr Q24H IV ; Start 09/13/21 at 06:00; Stop 09/13/21 at 17:59; Status DC Hydromorphone HCl (Dilaudid) 0.5 mg PRN Q10MIN PRN IVP SEVERE PAIN 7-10, 2nd CHOICE; Start 09/13/21 at 06:00; Stop 09/14/21 at 06:00; Status DC Prochlorperazine Edisylate (Compazine) 5 mg PACU PRN PRN IVP NAUSEA, MRX1; Start 09/13/21 at 06:00; Stop 09/14/21 at 06:00; Status DC Micafungin Sodium 100 mg/Dextrose 100 ml @ 100 mls/hr Q24H IV Last administered on 09/13/21at 13:09; Start 09/12/21 at 14:00 Cellulose (Surgicel Fibrillar 1x2) 1 each STK-MED ONCE .ROUTE ; Start 09/13/21 at 09:46; Stop 09/13/21 at 09:47; Status DC Bupivacaine HCl/ Epinephrine Bitart (Sensorcaine-Epi 0.25%-1:[id number] Mpf) 30 ml STK-MED ONCE .ROUTE ; Start 09/13/21 at 09:46; Stop 09/13/21 at 09:47; Status DC Fentanyl Citrate (Fentanyl 2ml Vial) 100 mcg STK-MED ONCE .ROUTE ; Start 09/13/21 at 11:04; Stop 09/13/21 at 11:04; Status DC Digoxin (Lanoxin) 500 mcg 1X ONCE IV Last administered on 09/13/21at 21:25; Start 09/13/21 at 21:15; Stop 09/13/21 at 21:16; Status DC Potassium Bicarbonate (Potassium Effervescent Tablet) 40 meq 1X ONCE PO Last administered on 09/14/21at 08:03; Start 09/14/21 at 07:00; Stop 09/14/21 at 07:01; Status DC Vitals/I & O Vital Sign - Last 24 Hours 09/13/21 09/13/21 09/13/21 09/13/21 09:00 09:46 11:37 12:11 Temp 99.7 99.7 Pulse 71 71 77 69 Resp B/P (MAP) 102/56 102/56 115/61 97/57 Pulse Ox 100 98 98 O2 Delivery Ventilator Ventilator Ventilator 09/13/21 09/13/21 09/13/21 09/13/21 12:30 13:00 14:00 15:00 Pulse 68 69 77 Resp B/P (MAP) 98/54 93/56 106/62 Pulse Ox 97 100 99 100 O2 Delivery Ventilator Ventilator Ventilator Ventilator 09/13/21 09/13/21 09/13/21 09/13/21 15:50 16:00 17:00 17:37 Temp 99.2 99.2 Pulse 102 98 Resp B/P (MAP) 93/53 88/54 Pulse Ox 100 98 96 96 O2 Delivery Ventilator Ventilator Ventilator O2 Flow Rate 4.0 09/13/21 09/13/21 09/13/21 09/13/21 18:00 18:03 18:07 19:00 Pulse 95 118 Resp B/P (MAP) 98/58 87/49 Pulse Ox 97 97 97 97 O2 Delivery Ventilator Ventilator Ventilator O2 Flow Rate 4.0 09/13/21 09/13/21 09/13/21 09/13/21 20:00 20:00 20:00 20:00 Temp 99.9 99.9 Pulse 114 112 B/P (MAP) 90/55 86/54 Pulse Ox 97 96 97 O2 Delivery Ventilator Ventilator Ventilator Mechanical Ventilator 09/13/21 09/13/21 09/13/21 09/13/21 21:00 21:25 22:00 22:00 Pulse 92 95 76 B/P (MAP) 90/55 98/58 111/56 Pulse Ox 97 97 96 O2 Delivery Ventilator Ventilator Ventilator 09/13/21 09/14/21 09/14/21 09/14/21 23:00 00:00 00:01 01:00 Temp 100.1 100.1 Pulse 121 96 B/P (MAP) 115/61 101/56 Pulse Ox 97 97 100 O2 Delivery Ventilator Ventilator Mechanical Ventilator Ventilator 09/14/21 09/14/21 09/14/21 09/14/21 01:00 01:53 02:00 02:00 Temp 99.0 99.4 99.4 99.0 99.4 99.4 Pulse 92 81 77 81 Resp B/P (MAP) 101/56 98/51 116/68 104/57 Pulse Ox 100 100 O2 Delivery Ventilator Ventilator 09/14/21 09/14/21 09/14/21 09/14/21 02:07 03:00 03:00 04:00 Temp 99.4 99.0 98.8 99.4 99.0 98.8 Pulse 99 77 75 67 Resp B/P (MAP) 99/53 121/71 121/71 118/67 Pulse Ox 100 100 O2 Delivery Ventilator Ventilator 09/14/21 09/14/21 09/14/21 09/14/21 04:00 04:11 05:00 05:18 Temp 98.8 98.5 98.8 98.5 Pulse 69 66 67 Resp 22 B/P (MAP) 122/68 108/62 103/56 Pulse Ox 100 100 O2 Delivery Ventilator Ventilator 09/14/21 09/14/21 09/14/21 06:00 07:00 08:03 Pulse 64 67 67 Resp B/P (MAP) 102/62 119/64 119/64 Pulse Ox 100 40 O2 Delivery Ventilator Ventilator Intake and Output 09/13/21 09/13/21 09/14/21 15:00 23:00 07:00 Intake Total 250 ml 2287 ml 1501.0 ml Output Total 300 ml 925 ml 575 ml Balance -50 ml 1362 ml 926.0 ml Justicifation of Admission Dx: Justifications for Admission: Justification of Admission Dx: N/A DEREK TELLEZ MD Sep 14, 2021 08:31
[2021-09-14] MEDS: DAPTOmycin (GENERIC) IVPB 550 MG in IV NORMAL SALINE 50ML 50 ML IV SCH (08:32)
[2021-09-14 08:49] LABS: BASE EXCESS ABG 8 mmol/L (-3-3); HCO3 ABG 33 mmol/L (21-28); PCO2 ABG 51 mmHg (35-46); PO2 ABG 72 mmHg (65-108); SAT O2 ABG 94 % (92-99)
--- NOTE | 2021-09-14 09:25 | PDOC ---
SURGICAL PROGRESS NOTE DATE: 09/14/21 TIME: 09:23 Subjective Pt sedated, stable Vital Signs Vital Signs Date Time Temp Pulse Resp B/P (MAP) Pulse Ox O2 Delivery O2 Flow Rate FiO2 09/14/21 08:15 100 Ventilator 09/14/21 08:03 67 119/64 09/14/21 08:00 98.3 22 98.3 09/13/21 18:07 4.0 I&O Intake and Output 09/14/21 07:00 Intake Total 4038.0 ml Output Total 1800 ml Balance 2238.0 ml IV Total 2557.0 ml Tube Feeding 956 ml Blood Product IV Normal Saline Flush 400 ml Other 125 ml Output Urine Total 1800 ml Gastric Drainage Total 0 ml General: No acute distress HEENT: Other (trach intact without bleeding) Labs Laboratory Tests Test 09/12/21 10:48 09/13/21 06:30 09/13/21 07:50 09/13/21 23:25 O2 Saturation 83 % (92-99) 96 % (92-99) Arterial Blood pH 7.41 (7.35-7.45) 7.42 (7.35-7.45) Arterial Blood pCO2 at Patient Temp 55 mmHg (35-46) 53 mmHg (35-46) Arterial Blood pO2 at Patient Temp 48 mmHg (65-108) 91 mmHg (65-108) Arterial Blood HCO3 34 mmol/L (21-28) 33 mmol/L (21-28) Arterial Blood Base Excess 8 mmol/L (-3-3) 8 mmol/L (-3-3) FiO2 40% ac 22 400 5 60 White Blood Count 13.2 x10^3/uL (4.0-11.0) 10.4 x10^3/uL (4.0-11.0) Red Blood Count 2.60 x10^6/uL (4.30-5.70) 2.25 x10^6/uL (4.30-5.70) Hemoglobin 7.6 g/dL (13.0-17.5) 6.8 g/dL (13.0-17.5) Hematocrit 23.7 % (39.0-53.0) 20.2 % (39.0-53.0) Mean Corpuscular Volume 91 fL (79-100) 90 fL (79-100) Mean Corpuscular Hemoglobin 29 pg (25-35) 30 pg (25-35) Mean Corpuscular Hemoglobin Concent 32 g/dL (31-37) 34 g/dL (31-37) Red Cell Distribution Width 16.8 % (11.5-14.5) 16.8 % (11.5-14.5) Platelet Count 139 x10^3/uL (140-400) 127 x10^3/uL (140-400) Neutrophils (%) (Auto) 92 % (31-73) Lymphocytes (%) (Auto) 3 % (24-48) Monocytes (%) (Auto) 2 % (0-9) Eosinophils (%) (Auto) 2 % (0-3) Basophils (%) (Auto) 0 % (0-3) Neutrophils # (Auto) 12.2 x10^3/uL (1.8-7.7) Lymphocytes # (Auto) 0.3 x10^3/uL (1.0-4.8) Monocytes # (Auto) 0.3 x10^3/uL (0.0-1.1) Eosinophils # (Auto) 0.3 x10^3/uL (0.0-0.7) Basophils # (Auto) 0.0 x10^3/uL (0.0-0.2) Segmented Neutrophils % 88 % (35-66) Band Neutrophils % 5 % (0-9) Lymphocytes % 2 % (24-48) Monocytes % 1 % (0-10) Eosinophils % 4 % (0-5) Platelet Estimate Decreased (ADEQUATE) Sodium Level 140 mmol/L (136-145) 139 mmol/L (136-145) Potassium Level 3.7 mmol/L (3.5-5.1) 3.4 mmol/L (3.5-5.1) Chloride Level 101 mmol/L (98-107) 99 mmol/L (98-107) Carbon Dioxide Level 33 mmol/L (21-32) 35 mmol/L (21-32) Anion Gap 6 (6-14) 5 (6-14) Blood Urea Nitrogen 15 mg/dL (8-26) 12 mg/dL (8-26) Creatinine 0.5 mg/dL (0.7-1.3) 0.6 mg/dL (0.7-1.3) Estimated GFR (Cockcroft-Gault) 167.9 136.1 BUN/Creatinine Ratio 30 (6-20) Glucose Level 113 mg/dL (70-99) 148 mg/dL (70-99) Calcium Level 7.9 mg/dL (8.5-10.1) 7.8 mg/dL (8.5-10.1) Total Bilirubin 0.4 mg/dL (0.2-1.0) Aspartate Amino Transf (AST/SGOT) 41 U/L (15-37) Alanine Aminotransferase (ALT/SGPT) 44 U/L (16-63) Alkaline Phosphatase 118 U/L (46-116) Creatine Kinase 198 U/L (39-308) Total Protein 5.4 g/dL (6.4-8.2) Albumin 1.6 g/dL (3.4-5.0) Albumin/Globulin Ratio 0.4 (1.0-1.7) Magnesium Level 1.9 mg/dL (1.8-2.4) Test 09/14/21 05:50 White Blood Count 8.0 x10^3/uL (4.0-11.0) Red Blood Count 2.60 x10^6/uL (4.30-5.70) Hemoglobin 7.7 g/dL (13.0-17.5) Hematocrit 23.2 % (39.0-53.0) Mean Corpuscular Volume 90 fL (79-100) Mean Corpuscular Hemoglobin 30 pg (25-35) Mean Corpuscular Hemoglobin Concent 33 g/dL (31-37) Red Cell Distribution Width 15.3 % (11.5-14.5) Platelet Count 119 x10^3/uL (140-400) Sodium Level 142 mmol/L (136-145) Potassium Level 3.2 mmol/L (3.5-5.1) Chloride Level 102 mmol/L (98-107) Carbon Dioxide Level 33 mmol/L (21-32) Anion Gap 7 (6-14) Blood Urea Nitrogen 12 mg/dL (8-26) Creatinine 0.5 mg/dL (0.7-1.3) Estimated GFR (Cockcroft-Gault) 167.9 BUN/Creatinine Ratio 24 (6-20) Glucose Level 106 mg/dL (70-99) Calcium Level 8.3 mg/dL (8.5-10.1) Magnesium Level 2.1 mg/dL (1.8-2.4) Total Bilirubin 0.4 mg/dL (0.2-1.0) Aspartate Amino Transf (AST/SGOT) 50 U/L (15-37) Alanine Aminotransferase (ALT/SGPT) 46 U/L (16-63) Alkaline Phosphatase 113 U/L (46-116) Total Protein 5.0 g/dL (6.4-8.2) Albumin 1.4 g/dL (3.4-5.0) Albumin/Globulin Ratio 0.4 (1.0-1.7) Laboratory Tests Test 09/13/21 23:25 09/14/21 05:50 White Blood Count 10.4 x10^3/uL (4.0-11.0) 8.0 x10^3/uL (4.0-11.0) Red Blood Count 2.25 x10^6/uL (4.30-5.70) 2.60 x10^6/uL (4.30-5.70) Hemoglobin 6.8 g/dL (13.0-17.5) 7.7 g/dL (13.0-17.5) Hematocrit 20.2 % (39.0-53.0) 23.2 % (39.0-53.0) Mean Corpuscular Volume 90 fL (79-100) 90 fL (79-100) Mean Corpuscular Hemoglobin 30 pg (25-35) 30 pg (25-35) Mean Corpuscular Hemoglobin Concent 34 g/dL (31-37) 33 g/dL (31-37) Red Cell Distribution Width 16.8 % (11.5-14.5) 15.3 % (11.5-14.5) Platelet Count 127 x10^3/uL (140-400) 119 x10^3/uL (140-400) Sodium Level 139 mmol/L (136-145) 142 mmol/L (136-145) Potassium Level 3.4 mmol/L (3.5-5.1) 3.2 mmol/L (3.5-5.1) Chloride Level 99 mmol/L (98-107) 102 mmol/L (98-107) Carbon Dioxide Level 35 mmol/L (21-32) 33 mmol/L (21-32) Anion Gap 5 (6-14) 7 (6-14) Blood Urea Nitrogen 12 mg/dL (8-26) 12 mg/dL (8-26) Creatinine 0.6 mg/dL (0.7-1.3) 0.5 mg/dL (0.7-1.3) Estimated GFR (Cockcroft-Gault) 136.1 167.9 Glucose Level 148 mg/dL (70-99) 106 mg/dL (70-99) Calcium Level 7.8 mg/dL (8.5-10.1) 8.3 mg/dL (8.5-10.1) Magnesium Level 1.9 mg/dL (1.8-2.4) 2.1 mg/dL (1.8-2.4) BUN/Creatinine Ratio 24 (6-20) Total Bilirubin 0.4 mg/dL (0.2-1.0) Aspartate Amino Transf (AST/SGOT) 50 U/L (15-37) Alanine Aminotransferase (ALT/SGPT) 46 U/L (16-63) Alkaline Phosphatase 113 U/L (46-116) Total Protein 5.0 g/dL (6.4-8.2) Albumin 1.4 g/dL (3.4-5.0) Albumin/Globulin Ratio 0.4 (1.0-1.7) Assessment/Plan s/p trach cont care per pulm and primary will sign off, but please call for questions Justicifation of Admission Dx: Justifications for Admission: Justification of Admission Dx: N/A TERESA ODEN MD Sep 14, 2021 09:24
--- NOTE | 2021-09-14 09:28 | PN ---
DATE: 09/14/2021 SUBJECTIVE: The patient is resting, slightly propped up in bed, in no apparent distress. He has continued to be heavily sedated on propofol, Versed and fentanyl. He is also on a small dose of Levophed. He did drop his H and H down to 6.8 and 20. He did receive 1 unit of packed RBCs. PHYSICAL EXAMINATION: GENERAL: When I examined him this morning, he was pale, no jaundiced, cyanosed. No thyromegaly. No jugular venous distention. No lower limb edema. VITAL SIGNS: His heart rate was 70, blood pressure was 117/73, temperature was 98.3, respiratory rate 22, and oxygen saturation was 100% on FiO2 of 40%. HEAD, EYES, EARS, NOSE, AND THROAT: Normocephalic, atraumatic. NECK: Supple with tracheostomy tube in place. HEART: Normal first and second heart sounds. No gallop, rub or murmur. CHEST: Shows central trachea, equal bilateral chest expansion, air entry, vesicular breath sounds. No crepitation or rhonchi. ABDOMEN: Distended, soft, nontender. NEUROLOGIC: He continued to be heavily sedated. His intake was 4500, output was 3570. LABORATORY DATA: As of this morning, his white cell count was 8000, hemoglobin 7.7, hematocrit 23, MCV 90 and platelet count of 119,000. His chemistry showed a serum sodium of 142, potassium 3.2, chloride 102, bicarbonate 33, anion gap of 7, BUN 12, creatinine 0.5. Estimated GFR was 167 mL per minute. Her glucose 106, calcium was 8.3, magnesium was 2.1. Total bilirubin, AST, ALT, alkaline phosphatase were normal. Her total protein was 5, albumin was 1.4. His arterial blood gas showed a pH of 7.4, pCO2 of 50, pO2 of 72. ASSESSMENT: 1. The patient is status post cardiac arrest, likely due to hypoxia. He also has COVID-19 pneumonia as well as acute inferior wall myocardial infarction. Apparently, the patient went into ventricular tachycardia and it was shocked and went into ventricular fibrillation, treated with CPR and epinephrine with return of spontaneous circulation. The patient has continued to have episodes of bradycardia, bigeminy as well as atrial fibrillation with rapid ventricular response that responded well to digoxin. 2. Acute on chronic hypoxic respiratory failure. 3. Has leukocytosis that is actually improving. He also has continued to have anemia, for which he received multiple units of packed RBCs. 4. Acute respiratory distress syndrome. 5. Acute exacerbation of chronic obstructive pulmonary disease. 6. COVID-19 pneumonia. 7. Atrial fibrillation with rapid ventricular response that is rate controlled. He is off heparin as well as Plavix. He is only on a baby aspirin. 8. The patient has undergone cardiac catheterization for a second time, which showed that he has recanalized his right coronary artery, for which he is started on Plavix and aspirin. 9. The patient has had tracheostomy tube placed successfully yesterday. He probably needs an NG tube as he continued to have orogastric tube that probably will fall off immediately as soon as he gets off sedation. PLAN: To continue with mechanical ventilation, wean as tolerated. Continue with IV antibiotic. Continue with DVT and GI prophylaxis. Continue to monitor his H and H and transfuse him as needed. We will consult the case management to see if the patient qualifies to be transferred to [facility] probably at the beginning of next week. VEL DR: Vannessa TID: [id number]
[2021-09-14 10:03] LABS: FIO2 ABG 40
--- NOTE | 2021-09-14 10:31 | NUR ---
SS following up with discharge planning. SS reviewed pt chart and discussed with pt RN. Pt is currently on the vent at 40%. Trach placement on 09/13/2021. COVID19 recovered. Pt on IV Micafungin, IV Meropenem, IV Daptomycin, and IV Zyvox. Pt on Levophed, Versed, Fentanyl, and Propofol. Tentative PEG placement next week. Not ready. LTACH referral requested. SS met with pt's family in room and discussed discharge planning and LTACH facilities. Pt's family requesting [facility], ; fax [phone]. Referral phoned and faxed as requested and pt clinically accepted at [facility] pending insurance approval. SS will continue to follow for discharge planning.
--- NOTE | 2021-09-14 10:48 | NUR ---
Wound Care Wound Type/Assessment: Follow up wound assessment for L 2nd toe and L plantar foot. L plantar toe is dark, dry, stable eschar. L plantar foot has small scab, Right lateral ankle- small scab. Pictured and measured. Unable to turn at this time for full skin inspection. present at bedside. Treatment Recommendations/Plan: L 2nd toe/plantar foot: [place] with betadine daily and cover with a foam dressing for protection. R lateral ankle- skin prep Education provided: Educated to wear offloading heel medics boots and turn often to prevent new skin breakdown. Offloading surface/device: ICU bed, heel medics, purple wedge turn Left Recommended Referrals/Tests: NA Discharge Recommendations for dressings: As above
--- NOTE | 2021-09-14 11:51 | PDOC ---
PULMONARY PROGRESS NOTES DATE: 09/14/21 TIME: 11:48 Subjective Remains on assist control mode. Fever curve improved. Oxygen requirement has improved. Status post tracheostomy 09/13/2021 Vitals Vital Signs Date Time Temp Pulse Resp B/P (MAP) Pulse Ox O2 Delivery O2 Flow Rate FiO2 09/14/21 11:00 99 22 101/63 40 Ventilator 09/14/21 08:00 98.3 98.3 09/13/21 18:07 4.0 Comments ros unable to obtain sedated on vent HEENT: Other (nc at perrl nose clear orally intubated neck no lad no thyromegaly) Lungs: Clear Cardiovascular: S1, S2 Abdomen: Soft, Non-tender Extremities: No Edema Skin: Warm Labs Laboratory Tests Test 09/13/21 06:30 09/13/21 07:50 09/13/21 23:25 09/14/21 05:50 White Blood Count 13.2 x10^3/uL (4.0-11.0) 10.4 x10^3/uL (4.0-11.0) 8.0 x10^3/uL (4.0-11.0) Red Blood Count 2.60 x10^6/uL (4.30-5.70) 2.25 x10^6/uL (4.30-5.70) 2.60 x10^6/uL (4.30-5.70) Hemoglobin 7.6 g/dL (13.0-17.5) 6.8 g/dL (13.0-17.5) 7.7 g/dL (13.0-17.5) Hematocrit 23.7 % (39.0-53.0) 20.2 % (39.0-53.0) 23.2 % (39.0-53.0) Mean Corpuscular Volume 91 fL (79-100) 90 fL (79-100) 90 fL (79-100) Mean Corpuscular Hemoglobin 29 pg (25-35) 30 pg (25-35) 30 pg (25-35) Mean Corpuscular Hemoglobin Concent 32 g/dL (31-37) 34 g/dL (31-37) 33 g/dL (31-37) Red Cell Distribution Width 16.8 % (11.5-14.5) 16.8 % (11.5-14.5) 15.3 % (11.5-14.5) Platelet Count 139 x10^3/uL (140-400) 127 x10^3/uL (140-400) 119 x10^3/uL (140-400) Neutrophils (%) (Auto) 92 % (31-73) Lymphocytes (%) (Auto) 3 % (24-48) Monocytes (%) (Auto) 2 % (0-9) Eosinophils (%) (Auto) 2 % (0-3) Basophils (%) (Auto) 0 % (0-3) Neutrophils # (Auto) 12.2 x10^3/uL (1.8-7.7) Lymphocytes # (Auto) 0.3 x10^3/uL (1.0-4.8) Monocytes # (Auto) 0.3 x10^3/uL (0.0-1.1) Eosinophils # (Auto) 0.3 x10^3/uL (0.0-0.7) Basophils # (Auto) 0.0 x10^3/uL (0.0-0.2) Segmented Neutrophils % 88 % (35-66) Band Neutrophils % 5 % (0-9) Lymphocytes % 2 % (24-48) Monocytes % 1 % (0-10) Eosinophils % 4 % (0-5) Platelet Estimate Decreased (ADEQUATE) Sodium Level 140 mmol/L (136-145) 139 mmol/L (136-145) 142 mmol/L (136-145) Potassium Level 3.7 mmol/L (3.5-5.1) 3.4 mmol/L (3.5-5.1) 3.2 mmol/L (3.5-5.1) Chloride Level 101 mmol/L (98-107) 99 mmol/L (98-107) 102 mmol/L (98-107) Carbon Dioxide Level 33 mmol/L (21-32) 35 mmol/L (21-32) 33 mmol/L (21-32) Anion Gap 6 (6-14) 5 (6-14) 7 (6-14) Blood Urea Nitrogen 15 mg/dL (8-26) 12 mg/dL (8-26) 12 mg/dL (8-26) Creatinine 0.5 mg/dL (0.7-1.3) 0.6 mg/dL (0.7-1.3) 0.5 mg/dL (0.7-1.3) Estimated GFR (Cockcroft-Gault) 167.9 136.1 167.9 BUN/Creatinine Ratio 30 (6-20) 24 (6-20) Glucose Level 113 mg/dL (70-99) 148 mg/dL (70-99) 106 mg/dL (70-99) Calcium Level 7.9 mg/dL (8.5-10.1) 7.8 mg/dL (8.5-10.1) 8.3 mg/dL (8.5-10.1) Total Bilirubin 0.4 mg/dL (0.2-1.0) 0.4 mg/dL (0.2-1.0) Aspartate Amino Transf (AST/SGOT) 41 U/L (15-37) 50 U/L (15-37) Alanine Aminotransferase (ALT/SGPT) 44 U/L (16-63) 46 U/L (16-63) Alkaline Phosphatase 118 U/L (46-116) 113 U/L (46-116) Creatine Kinase 198 U/L (39-308) Total Protein 5.4 g/dL (6.4-8.2) 5.0 g/dL (6.4-8.2) Albumin 1.6 g/dL (3.4-5.0) 1.4 g/dL (3.4-5.0) Albumin/Globulin Ratio 0.4 (1.0-1.7) 0.4 (1.0-1.7) O2 Saturation 96 % (92-99) Arterial Blood pH 7.42 (7.35-7.45) Arterial Blood pCO2 at Patient Temp 53 mmHg (35-46) Arterial Blood pO2 at Patient Temp 91 mmHg (65-108) Arterial Blood HCO3 33 mmol/L (21-28) Arterial Blood Base Excess 8 mmol/L (-3-3) FiO2 60 Magnesium Level 1.9 mg/dL (1.8-2.4) 2.1 mg/dL (1.8-2.4) Test 09/14/21 08:00 O2 Saturation 94 % (92-99) Arterial Blood pH 7.43 (7.35-7.45) Arterial Blood pCO2 at Patient Temp 51 mmHg (35-46) Arterial Blood pO2 at Patient Temp 72 mmHg (65-108) Arterial Blood HCO3 33 mmol/L (21-28) Arterial Blood Base Excess 8 mmol/L (-3-3) FiO2 40 Laboratory Tests Test 09/13/21 23:25 09/14/21 05:50 09/14/21 08:00 White Blood Count 10.4 x10^3/uL (4.0-11.0) 8.0 x10^3/uL (4.0-11.0) Red Blood Count 2.25 x10^6/uL (4.30-5.70) 2.60 x10^6/uL (4.30-5.70) Hemoglobin 6.8 g/dL (13.0-17.5) 7.7 g/dL (13.0-17.5) Hematocrit 20.2 % (39.0-53.0) 23.2 % (39.0-53.0) Mean Corpuscular Volume 90 fL (79-100) 90 fL (79-100) Mean Corpuscular Hemoglobin 30 pg (25-35) 30 pg (25-35) Mean Corpuscular Hemoglobin Concent 34 g/dL (31-37) 33 g/dL (31-37) Red Cell Distribution Width 16.8 % (11.5-14.5) 15.3 % (11.5-14.5) Platelet Count 127 x10^3/uL (140-400) 119 x10^3/uL (140-400) Sodium Level 139 mmol/L (136-145) 142 mmol/L (136-145) Potassium Level 3.4 mmol/L (3.5-5.1) 3.2 mmol/L (3.5-5.1) Chloride Level 99 mmol/L (98-107) 102 mmol/L (98-107) Carbon Dioxide Level 35 mmol/L (21-32) 33 mmol/L (21-32) Anion Gap 5 (6-14) 7 (6-14) Blood Urea Nitrogen 12 mg/dL (8-26) 12 mg/dL (8-26) Creatinine 0.6 mg/dL (0.7-1.3) 0.5 mg/dL (0.7-1.3) Estimated GFR (Cockcroft-Gault) 136.1 167.9 Glucose Level 148 mg/dL (70-99) 106 mg/dL (70-99) Calcium Level 7.8 mg/dL (8.5-10.1) 8.3 mg/dL (8.5-10.1) Magnesium Level 1.9 mg/dL (1.8-2.4) 2.1 mg/dL (1.8-2.4) BUN/Creatinine Ratio 24 (6-20) Total Bilirubin 0.4 mg/dL (0.2-1.0) Aspartate Amino Transf (AST/SGOT) 50 U/L (15-37) Alanine Aminotransferase (ALT/SGPT) 46 U/L (16-63) Alkaline Phosphatase 113 U/L (46-116) Total Protein 5.0 g/dL (6.4-8.2) Albumin 1.4 g/dL (3.4-5.0) Albumin/Globulin Ratio 0.4 (1.0-1.7) O2 Saturation 94 % (92-99) Arterial Blood pH 7.43 (7.35-7.45) Arterial Blood pCO2 at Patient Temp 51 mmHg (35-46) Arterial Blood pO2 at Patient Temp 72 mmHg (65-108) Arterial Blood HCO3 33 mmol/L (21-28) Arterial Blood Base Excess 8 mmol/L (-3-3) FiO2 40 Comments Chest x-ray reviewed 09/12/2021. Diffuse bilateral interstitial infiltrates. Increased volume loss left lower lobe. CT chest abdomen and pelvis reviewed. Dated 09/10/2021 Impression: 1. Left lower lobe airspace consolidation superimposed on diffuse groundglass opacity with emphysematous and fibrotic change. Findings suspected to represent multifocal infectious process. 2. Infrarenal aortic aneurysm measuring 3.4 cm diameter. 3. Distended gallbladder without wall thickening. Correlate for right upper quadrant symptoms, consider acalculous cholecystitis in the setting of prolonged illness. Impression . 1. Acute hypoxic respiratory failure secondary to COVID-19 pneumonia, acute respiratory distress syndrome and possible underlying fibrosis and emphysema., Extubated 08/20, reintubated 08/23 status post CODE BLUE/semi-CODE BLUE on 09/05. Status post tracheostomy 09/13/[address] chest. Reviewed dated 09/10/2021. Left lower lobe consolidation versus atelectasis. Evidence of possible mild fibrosis. There is evidence of pneumatoceles related to Covid. 3. New sepsis. Continues to have fever. White cell count trending down. CT chest with left lower lobe consolidation, doubt the source of fever. CT abdomen with acalculous cholecystitis. Could be the source. 4. Suspected underlying severe chronic obstructive pulmonary disease. 5. COVID-19 viral pneumonia.--- Covid recovered 6. Abnormal chest x-ray with bilateral diffuse infiltrates related to COVID-19 viral pneumonia.--- Covid recovered 7. Patient reintubated 08/23, status post CODE BLUE 8. Abnormal x-ray from 08/15, possible ARDS, possible pulmonary edema, possible aspiration 9. ST elevation PA status post intra-aortic balloon pump--08/23/2021 10. Emergent cardiac catheterization revealing 90% stenotic lesion 11. Echocardiogram revealing ejection fraction of 35 to 40% pulmonary artery pressure of 34 inferior septal wall hypokinesis 12. MRSA bacteremia, lines removed. 13. Necrotic toe left second, suspect related COVID Cardiac catheterization 08/30 Due to large vessel size a decision was made to defer stenting at this time for continued medical therapy. After the patient is fully extubated and depending on symptoms could consider PCI. Conclusion 1. Recanalized right coronary artery with brisk blood flow. 2. Residual proximal 70% RCA stenosis with significant ectasia of the RCA measuring up to 6.25 mm. 3. Normal left ventricular filling pressures. Recommendations 1. Continue aspirin, Plavix and heparin drip. 2. Continue plans for extubation. 3. After patient is extubated and stabilized depending on symptoms we will consider high risk PCI with specialized MegaTron stent given the large vessel size. Plan . Updated 09/14 Continue present assist-control mode. Oxygen requirement has improved. Patient developed new sepsis , has clinically improved. Status post tracheostomy 09/13/2021 Will wean off sedation and start weaning in the next 24 hours. Off steroids Broad-spectrum antibiotics per ID. Leukocytosis is resolved. ABG noted Blood cultures negative. C. difficile negative I doubt left lower lobe atelectasis/consolidation is the etiology for marked le ukocytosis. Acalculous cholecystitis could be the source. Follow GI recommendations. Discussed with RN RT Discussed with surgery Dr. Miller Discussed with in detail. Explained to her that patient will be transferred next week to LTAC. PEG will be placed next week prior to transfer Updated 09/13 Continue present assist-control mode. Oxygen requirement has improved. We will continue on 50% FiO2. secondary new sepsis and ARDS along with suspected left lower lobe pneumonia. Tracheotomy scheduled for today. Clinically improving. Off steroids Broad-spectrum antibiotics per ID ABG noted Blood cultures negative. C. difficile negative I doubt left lower lobe atelectasis/consolidation is the etiology for marked leukocytosis. Acalculous cholecystitis could be the source. Follow GI recommendations. Discussed with RN RT Discussed with surgery Dr. Miller Proceed with tracheostomy today. Updated 09/12 Continue present assist-control mode. Oxygen requirement has increased. We will increase the FiO2 to 50%. This is likely secondary to new sepsis and ARDS along with suspected left lower lobe pneumonia. Tracheotomy placed on hold because of leukocytosis. Trending down. Hopefully trach later this week Off steroids Broad-spectrum antibiotics per ID Discussed with at the bedside ABG noted Blood cultures after 4 days negative. C. difficile negative I doubt left lower lobe atelectasis/consolidation is the etiology for marked leukocytosis. Acalculous cholecystitis could be the source. Follow GI recommendations. Discussed with RN RT Will reach out to the son about addressing the goals of care again. Critical care time 30 minutes MICHELLE KNOWLES MD Sep 14, 2021 11:51
--- NOTE | 2021-09-14 12:16 | PDOC ---
Date of Service: DATE: 09/14/21 TIME: 12:12 Objective: Objective: D/w nurse - tolerating tube feeds. Vital Signs: Vital Signs Date Time Temp Pulse Resp B/P (MAP) Pulse Ox O2 Delivery O2 Flow Rate FiO2 09/14/21 11:00 99 22 101/63 40 Ventilator 09/14/21 08:00 98.3 98.3 09/13/21 18:07 4.0 Labs: Laboratory Tests Test 09/13/21 23:25 09/14/21 05:50 09/14/21 08:00 White Blood Count 10.4 x10^3/uL 8.0 x10^3/uL Red Blood Count 2.25 x10^6/uL 2.60 x10^6/uL Hemoglobin 6.8 g/dL 7.7 g/dL Hematocrit 20.2 % 23.2 % Mean Corpuscular Volume 90 fL 90 fL Mean Corpuscular Hemoglobin 30 pg 30 pg Mean Corpuscular Hemoglobin Concent 34 g/dL 33 g/dL Red Cell Distribution Width 16.8 % 15.3 % Platelet Count 127 x10^3/uL 119 x10^3/uL Sodium Level 139 mmol/L 142 mmol/L Potassium Level 3.4 mmol/L 3.2 mmol/L Chloride Level 99 mmol/L 102 mmol/L Carbon Dioxide Level 35 mmol/L 33 mmol/L Anion Gap 5 7 Blood Urea Nitrogen 12 mg/dL 12 mg/dL Creatinine 0.6 mg/dL 0.5 mg/dL Estimated GFR (Cockcroft-Gault) 136.1 167.9 Glucose Level 148 mg/dL 106 mg/dL Calcium Level 7.8 mg/dL 8.3 mg/dL Magnesium Level 1.9 mg/dL 2.1 mg/dL BUN/Creatinine Ratio 24 Total Bilirubin 0.4 mg/dL Aspartate Amino Transf (AST/SGOT) 50 U/L Alanine Aminotransferase (ALT/SGPT) 46 U/L Alkaline Phosphatase 113 U/L Total Protein 5.0 g/dL Albumin 1.4 g/dL Albumin/Globulin Ratio 0.4 O2 Saturation 94 % Arterial Blood pH 7.43 Arterial Blood pCO2 at Patient Temp 51 mmHg Arterial Blood pO2 at Patient Temp 72 mmHg Arterial Blood HCO3 33 mmol/L Arterial Blood Base Excess 8 mmol/L FiO2 40 PE: GEN: chronically ill HEENT: trach LUNGS: vent/clear HEART: RRR ABD: soft, tube feeds @ 40, rectal tube less black - now liquid dark brown NEURO/PSYCH: sedated A/P: Resp failure s/p trach CAD, anoxic encephalopathy Anemia - better with transfusion Dark stools - resolving -- ?PEG Friday - will check w/ Dr. Brock. Justicifation of Admission Dx: Justifications for Admission: Justification of Admission Dx: N/A GEORGIA GUILLEN Sep 14, 2021 12:16
--- NOTE | 2021-09-14 12:26 | PDOC ---
Infectious Disease Note Subjective Subjective Patient underwent trach placement temp pattern improved ROS ROS no n/v/d/ Vital Sign Vital Signs Vital Signs Date Time Temp Pulse Resp B/P (MAP) Pulse Ox O2 Delivery O2 Flow Rate FiO2 09/14/21 11:00 99 22 101/63 40 Ventilator 09/14/21 08:00 98.3 98.3 09/13/21 18:07 4.0 Physical Exam PHYSICAL EXAM GENERAL: Intubated HEENT: No conjunctival petechia. ETT present, OGT present LUNGS: Coarse breath sounds in the bases, otherwise clear. HEART: S1, S2, irregular. I could not appreciate any murmurs. ABDOMEN: Soft, nontender, nondistended. Bowel sounds present. GENITOURINARY: Berumen in place. EXTREMITIES: Present no cyanosis. Right groin catheter removed, Right upper extremity PICC line placed on 08/23/2021.Lt 2nd digit black DERMATOLOGIC: Warm, dry, no generalized rash. NEUROLOGIC: Unable to assess. Labs Lab Laboratory Tests Test 09/13/21 23:25 09/14/21 05:50 09/14/21 08:00 White Blood Count 10.4 x10^3/uL (4.0-11.0) 8.0 x10^3/uL (4.0-11.0) Red Blood Count 2.25 x10^6/uL (4.30-5.70) 2.60 x10^6/uL (4.30-5.70) Hemoglobin 6.8 g/dL (13.0-17.5) 7.7 g/dL (13.0-17.5) Hematocrit 20.2 % (39.0-53.0) 23.2 % (39.0-53.0) Mean Corpuscular Volume 90 fL (79-100) 90 fL (79-100) Mean Corpuscular Hemoglobin 30 pg (25-35) 30 pg (25-35) Mean Corpuscular Hemoglobin Concent 34 g/dL (31-37) 33 g/dL (31-37) Red Cell Distribution Width 16.8 % (11.5-14.5) 15.3 % (11.5-14.5) Platelet Count 127 x10^3/uL (140-400) 119 x10^3/uL (140-400) Sodium Level 139 mmol/L (136-145) 142 mmol/L (136-145) Potassium Level 3.4 mmol/L (3.5-5.1) 3.2 mmol/L (3.5-5.1) Chloride Level 99 mmol/L (98-107) 102 mmol/L (98-107) Carbon Dioxide Level 35 mmol/L (21-32) 33 mmol/L (21-32) Anion Gap 5 (6-14) 7 (6-14) Blood Urea Nitrogen 12 mg/dL (8-26) 12 mg/dL (8-26) Creatinine 0.6 mg/dL (0.7-1.3) 0.5 mg/dL (0.7-1.3) Estimated GFR (Cockcroft-Gault) 136.1 167.9 Glucose Level 148 mg/dL (70-99) 106 mg/dL (70-99) Calcium Level 7.8 mg/dL (8.5-10.1) 8.3 mg/dL (8.5-10.1) Magnesium Level 1.9 mg/dL (1.8-2.4) 2.1 mg/dL (1.8-2.4) BUN/Creatinine Ratio 24 (6-20) Total Bilirubin 0.4 mg/dL (0.2-1.0) Aspartate Amino Transf (AST/SGOT) 50 U/L (15-37) Alanine Aminotransferase (ALT/SGPT) 46 U/L (16-63) Alkaline Phosphatase 113 U/L (46-116) Total Protein 5.0 g/dL (6.4-8.2) Albumin 1.4 g/dL (3.4-5.0) Albumin/Globulin Ratio 0.4 (1.0-1.7) O2 Saturation 94 % (92-99) Arterial Blood pH 7.43 (7.35-7.45) Arterial Blood pCO2 at Patient Temp 51 mmHg (35-46) Arterial Blood pO2 at Patient Temp 72 mmHg (65-108) Arterial Blood HCO3 33 mmol/L (21-28) Arterial Blood Base Excess 8 mmol/L (-3-3) FiO2 40 Micro Microbiology 08/24/21 Blood Culture - Preliminary, Resulted NO GROWTH AFTER 2 DAYS 08/23/21 Respiratory Culture Gram Stain - Final, Complete 2/10/22 Respiratory Culture - Final, Complete Objective Assessment Fever multifactorial s/p code ,possible aspiration pattern improved 1. Gram-positive bacteremia,MRSE 08/22/2021.Central line was pulled out 2. Acute hypoxic respiratory failure. 3. COVID-19 pneumonia. 4. Chronic obstructive pulmonary disease with possible underlying pulmonary fibrosis, aspiration pneumonia. 5. Status post code atrial fibrillation with rapid ventricular response, ventricular fibrillation, status post defibrillation, epinephrine, bicarbonate drip, status post cardiac catheterization. IABP placement. 6. Severe protein-calorie malnutrition. 7. Abnormal liver function tests, likely shock liver. 8. Anemia. 9. Encephalopathy likely anoxic 10.Electrolyte abn 11.Leucocytosis improving Plan Plan of Care Cont Dapto ,zyvox , meropenem,micafungin WBC decreasing,could also have a reactive component as he has anemia HB dropping CT C/A/P 09/10 reviewed, GB distended C. 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
--- NOTE | 2021-09-14 13:23 | PDOC ---
ISIS GARCIA [employer] 09/14/21 1323: CARDIO Progress Notes Date and Time Date of Service 09/14/2021 Time of Evaluation 1250 Subjective Subjective: Other (mechanical vent ) Vitals Vitals Vital Signs Date Time Temp Pulse Resp B/P (MAP) Pulse Ox O2 Delivery O2 Flow Rate FiO2 09/14/21 13:00 76 22 130/69 100 Ventilator 09/14/21 12:00 100.1 100.1 09/13/21 18:07 4.0 Weight Weight [ ] Input and Output Intake and Output Intake and Output 09/14/21 07:00 Intake Total 4038.0 ml Output Total 1800 ml Balance 2238.0 ml IV Total 2557.0 ml Tube Feeding 956 ml Blood Product IV Normal Saline Flush 400 ml Other 125 ml Output Urine Total 1800 ml Gastric Drainage Total 0 ml Laboratory Labs Laboratory Tests Test 09/13/21 23:25 09/14/21 05:50 09/14/21 08:00 White Blood Count 10.4 x10^3/uL (4.0-11.0) 8.0 x10^3/uL (4.0-11.0) Red Blood Count 2.25 x10^6/uL (4.30-5.70) 2.60 x10^6/uL (4.30-5.70) Hemoglobin 6.8 g/dL (13.0-17.5) 7.7 g/dL (13.0-17.5) Hematocrit 20.2 % (39.0-53.0) 23.2 % (39.0-53.0) Mean Corpuscular Volume 90 fL (79-100) 90 fL (79-100) Mean Corpuscular Hemoglobin 30 pg (25-35) 30 pg (25-35) Mean Corpuscular Hemoglobin Concent 34 g/dL (31-37) 33 g/dL (31-37) Red Cell Distribution Width 16.8 % (11.5-14.5) 15.3 % (11.5-14.5) Platelet Count 127 x10^3/uL (140-400) 119 x10^3/uL (140-400) Sodium Level 139 mmol/L (136-145) 142 mmol/L (136-145) Potassium Level 3.4 mmol/L (3.5-5.1) 3.2 mmol/L (3.5-5.1) Chloride Level 99 mmol/L (98-107) 102 mmol/L (98-107) Carbon Dioxide Level 35 mmol/L (21-32) 33 mmol/L (21-32) Anion Gap 5 (6-14) 7 (6-14) Blood Urea Nitrogen 12 mg/dL (8-26) 12 mg/dL (8-26) Creatinine 0.6 mg/dL (0.7-1.3) 0.5 mg/dL (0.7-1.3) Estimated GFR (Cockcroft-Gault) 136.1 167.9 Glucose Level 148 mg/dL (70-99) 106 mg/dL (70-99) Calcium Level 7.8 mg/dL (8.5-10.1) 8.3 mg/dL (8.5-10.1) Magnesium Level 1.9 mg/dL (1.8-2.4) 2.1 mg/dL (1.8-2.4) BUN/Creatinine Ratio 24 (6-20) Total Bilirubin 0.4 mg/dL (0.2-1.0) Aspartate Amino Transf (AST/SGOT) 50 U/L (15-37) Alanine Aminotransferase (ALT/SGPT) 46 U/L (16-63) Alkaline Phosphatase 113 U/L (46-116) Total Protein 5.0 g/dL (6.4-8.2) Albumin 1.4 g/dL (3.4-5.0) Albumin/Globulin Ratio 0.4 (1.0-1.7) O2 Saturation 94 % (92-99) Arterial Blood pH 7.43 (7.35-7.45) Arterial Blood pCO2 at Patient Temp 51 mmHg (35-46) Arterial Blood pO2 at Patient Temp 72 mmHg (65-108) Arterial Blood HCO3 33 mmol/L (21-28) Arterial Blood Base Excess 8 mmol/L (-3-3) FiO2 40 Microbiology Micro Microbiology 09/05/21 Urine Culture - Final, Complete 09/05/21 Blood Culture - Final, Complete NO GROWTH AFTER 5 DAYS 08/23/21 Respiratory Culture Gram Stain - Final, Complete 08/23/21 Respiratory Culture - Final, Complete Physical Exam HEENT: Other (supple, tracheostomy ) Chest: Symmetric LUNGS: Other (MV with tracheostomy) Heart: RRR (SR ) Abdomen: Other (soft ) Extremities: Other (Bilateral UE and LE pitting edema . Eschar to left foot, second toe) Neurology: other (sedated ) Assessment Assessment 1. S/P cardiac arrest; multifactorial. Noted with VT shock x1. approximately <3 min to ROSC. 2. Acute on chronic respiratory failure with COVID PNA, ARDS. unable to be weaned from vent. CXR with worsening consolidation, PNA. s/p tracheostomy 3. CAD, inferior STEMI with embolic disease. Repeat LHC showed recanalized RCA with brisk blood flow. Residual proximal 70% RCA stenosis with significant ectasia of the RCA 4. Cardiogenic shock; IABP removed. 5. Acute on chronic systolic CHF, ICM: EF at 35-40%. 6. AFIB RVR: presently SR. 7. Bradyarrhythmia; resolved. Avoid AV clara blocking agents 8. Hyperlipidemia; statin 9. Black distal phalanx to left 2nd toe: possibly r/t to covid-19. no significnat PAD per duplex 10. Leukocytosis, fevers, sepsis. CT abdomen/pelvis with gallbladder distention, but US without evidence of cholecystitis. Remains of pressor suppor t. 11. Anemia; S/P PRBC Recommendations Aspirin, statin therapy Plavix on hold, awaiting PEG tube placement. Lasix x1. Replace K Will continue to withhold resumption of heparin drip given anemia Amiodarone for rhythm maintenance Continue levophed Ongoing support Justicifation of Admission Dx: Justifications for Admission: Justification of Admission Dx: N/A TEDDY ANGLIN MD 09/14/21 1643: CARDIO Progress Notes Plan Plan The patient was seen and interviewed as well as examined at the bedside. The chart was reviewed. The case was discussed. Agree with the plan of care. ISIS GARCIA APRN Sep 14, 2021 13:23 TEDDY ANGLIN MD Sep 14, 2021 16:43
[2021-09-14] MEDS: MICAFUNGIN 100 MG in IV DEXTROSE 5% 100ML 100 ML IV SCH (13:51)
[2021-09-14] MEDS ORDERED: FUROSEMIDE 40 MG/4 ML VIAL. IVP ONE (14:00)
[2021-09-14 14:03] LABS: CALCIUM 8.5 mg/dL (8.5-10.1); CREATININE 0.6 mg/dL (0.7-1.3); GFR 136.1; POTASSIUM 3.7 mmol/L (3.5-5.1)
[2021-09-14] MEDS: MIDAZOLAM 100mg/100ml NS BAG 100 ML IV PRN (20:48)
[2021-09-14] MEDS: fentaNYL HIGH DOSE PCA 55 ML IV PRN (20:49)
[2021-09-14] MEDS: ATORVASTATIN CALCIUM 40 MG TABLET. PO SCH (21:05)
[2021-09-15] VITALS (29 sets, daily range): BP systolic 91–121; BP diastolic 57–72
[2021-09-15] MEDS: MEROPENEM 500 MG in IV NORMAL SALINE 50ML 50 ML IV SCH ×4 (00:32→17:36)
--- NOTE | 2021-09-15 04:00 | NUR ---
Trach care done. Pt has a #8 Shiley with a non-disposable cuff. Pt has been in SR most of the night but goes into multiple rhythms when cares are done. HR has been as high as 158 tonight.
[2021-09-15] MEDS: PROPOFOL 100 ML IV PRN ×4 (05:29→20:31)
[2021-09-15 06:15] LABS: BASO % 1 % (0-3); EOS # 0.3 x10^3/uL (0.0-0.7); EOS % 6 % (0-3); HEMATOCRIT 35.3 % (39.0-53.0); HEMOGLOBIN 11.5 g/dL (13.0-17.5); LYMPH # 0.4 x10^3/uL (1.0-4.8); LYMPH % 9 % (24-48); MEAN CORPUSCULAR HEMOGLOBIN 29 pg (25-35); MEAN CORPUSCULAR HGB CONC 33 g/dL (31-37); MEAN CORPUSCULAR VOLUME 89 fL (79-100); MONO # 0.2 x10^3/uL (0.0-1.1); MONO % 4 % (0-9); NEUT # 3.8 x10^3/uL (1.8-7.7); NEUT % 80 % (31-73); PLATELET COUNT 81 x10^3/uL (140-400); RED BLOOD COUNT 3.94 x10^6/uL (4.30-5.70); RED CELL DISTRIBUTION WIDTH 15.7 % (11.5-14.5); WHITE BLOOD COUNT 4.8 x10^3/uL (4.0-11.0)
[2021-09-15 06:36] LABS: ALBUMIN 1.3 g/dL (3.4-5.0); ALBUMIN/GLOBULIN RATIO 0.3 (1.0-1.7); CALCIUM 8.2 mg/dL (8.5-10.1); CREATININE 0.5 mg/dL (0.7-1.3); GFR 167.9; MAGNESIUM 1.8 mg/dL (1.8-2.4); POTASSIUM 3.7 mmol/L (3.5-5.1); TOTAL BILIRUBIN 0.4 mg/dL (0.2-1.0); TOTAL PROTEIN 5.5 g/dL (6.4-8.2)
[2021-09-15] MEDS: AMIODARONE HCL 200 MG TABLET. PO SCH (08:13)
[2021-09-15] MEDS: PANTOPRAZOLE IV PUSH 40 MG VIAL. IVP SCH ×2 (08:13→17:35)
[2021-09-15] MEDS: ASPIRIN CHEWABLE 81 MG TABLET. PO SCH (08:14)
[2021-09-15] MEDS: levETIRAcetam 500 MG/5 ML ORAL SOLUTION. PEG SCH ×2 (08:14→21:11)
--- NOTE | 2021-09-15 08:31 | PN ---
DATE: 09/15/2021 SUBJECTIVE: The patient is continued to be sedated and intubated and mechanically ventilated. The nursing staff are concerned about his platelet count dropping down. His platelets are trending down from high of 592 down to 81,000. He is on 3 antibiotics as well as micafungin that all caused thrombocytopenia. PHYSICAL EXAMINATION: GENERAL: When I examined him, he looked pale, but no jaundice, cyanosis or thyromegaly. No jugular venous distention. No limb edema. VITAL SIGNS: His heart rate was 104, blood pressure was 95/61, temperature 98.8, respiratory rate 22, and oxygen saturation was 100% on FiO2 of 40%. HEAD, EYES, EARS, NOSE, AND THROAT: Normocephalic, atraumatic. NECK: Supple. HEART: Normal first and second heart sounds. No gallop or murmur. CHEST: Shows central trachea, equal bilateral expansion, air entry, vesicular breath sounds. No crepitation or rhonchi. ABDOMEN: Distended, soft, nontender. NEUROLOGIC: He is heavily sedated. His intake was 4000, output was 1800. LABORATORY DATA: As of this morning, his white cell count is down to 4800, hemoglobin 11.5, hematocrit 35, MCV 89 and platelet count of 81,000. His chemistry showed a serum sodium of 140, potassium 3.7, chloride 99, bicarbonate 35, anion gap of 6, BUN 12, creatinine 0.5. Estimated GFR was 167 mL per minute. Her glucose is 109, calcium was 8.2, magnesium was 1.8. Total bilirubin is normal. AST, ALT, alkaline phosphatase slightly elevated. Total protein was 5.5, albumin was 1.3. Serum triglycerides slightly high at 342. ASSESSMENT: 1. The patient is status post cardiac arrest, likely due to hypoxia. He also has COVID-19 pneumonia as well as acute inferior wall myocardial infarction. Apparently, the patient went into ventricular tachycardia and it was shocked and went into ventricular fibrillation through the CPR and epinephrine with return of spontaneous circulation. He continues to have episodes of bradycardia and bigeminy as well as atrial fibrillation with rapid ventricular response, responded to digoxin. 2. Acute on chronic hypoxic respiratory failure. 3. Has leukocytosis that is actually improving. In fact, his white cell count has normalized. He also continued to have anemia, although his hemoglobin and hematocrit actually is trending upward. 4. Thrombocytopenia with his platelets steadily dropping. Today, platelet count is 81,000. He is on daptomycin, linezolid and micafungin. They all caused thrombocytopenia. 5. Acute respiratory distress syndrome. 6. Acute exacerbation of chronic obstructive pulmonary disease. 7. COVID-19 pneumonia. 8. Atrial fibrillation with rapid ventricular response that is rate controlled. He is off heparin as well as Plavix. He is only on baby aspirin. 9. The patient has undergone cardiac catheterization for a second time which showed the patient has recanalized his right coronary artery for which he is initially started on Plavix and aspirin. 10. The patient has a tracheostomy tube placed successfully. He continued to have orogastric tube for tube feeding for now. PLAN: To continue with mechanical ventilation, wean as tolerated. Continue with IV antibiotic. Continue with DVT and GI prophylaxis. Continue to monitor his H and H and transfuse as needed. ALEJANDRO DR: Vannessa TID: [id number]
[2021-09-15 08:50] LABS: BASE EXCESS ABG 9 mmol/L (-3-3); HCO3 ABG 35 mmol/L (21-28); PCO2 ABG 53 mmHg (35-46); PO2 ABG 91 mmHg (65-108); SAT O2 ABG 96 % (92-99)
[2021-09-15] MEDS: DAPTOmycin (GENERIC) IVPB 550 MG in IV NORMAL SALINE 50ML 50 ML IV SCH (09:28)
--- NOTE | 2021-09-15 09:36 | PDOC ---
PROGRESS NOTES Date of Service: DATE: 09/15/21 TIME: 09:36 Subjective Subjective s/p tracheostomy, on vent/AC mode Objective Objective Vital Signs Date Time Temp Pulse Resp B/P (MAP) Pulse Ox O2 Delivery O2 Flow Rate FiO2 09/15/21 08:13 104 95/61 09/15/21 07:00 22 100 Ventilator 09/15/21 04:00 98.8 98.8 Intake and Output 09/15/21 07:00 Intake Total 3933.1 ml Output Total 3240 ml Balance 693.1 ml Intake Oral 0 ml IV Total 1834.1 ml Tube Feeding 1524 ml Other 575 ml Output Urine Total 2940 ml Stool Total 300 ml Gastric Drainage Total 0 ml Physical Exam Abdomen: Soft Heart: Other (AFIB RVRl distatn heart sounds) Extremities: No cyanosis, No edema General: No acute distress HEENT: Other (trach intact without bleeding) Lungs: Other (intubated with MC, diminished throughout) Psych/Mental Status: Other (sedated) Skin: No rashes Assessment Assessment 1. S/P cardiac arrest; multifactorial. Noted with VT shock x1. approximately <3 min to ROSC. 2. Acute on chronic respiratory failure with COVID PNA, ARDS. unable to be weaned from vent. CXR with worsening consolidation, PNA. s/p tracheostomy 3. CAD, inferior STEMI with embolic disease. Repeat LHC showed recanalized RCA with brisk blood flow. Residual proximal 70% RCA stenosis with significant ectasia of the RCA 4. Cardiogenic shock; IABP removed. 5. Acute on chronic systolic CHF, ICM: EF at 35-40%. 6. AFIB RVR: presently SR. telemetry showed few episodes of atrial fibrillation 7. Bradyarrhythmia; resolved. Avoid AV clara blocking agents 8. Hyperlipidemia; statin 9. Black distal phalanx to left 2nd toe: possibly r/t to covid-19. no si gnificnat PAD per duplex 10. Leukocytosis, fevers, sepsis. CT abdomen/pelvis with gallbladder distention, but US without evidence of cholecystitis. Remains of pressor support. 11. Anemia; S/P PRBC Recommendations Aspirin, statin therapy Plavix on hold, awaiting PEG tube placement. Will continue to withhold resumption of heparin drip given anemia Amiodarone for rhythm maintenance Continue levophed Ongoing support Comment Review of Relevant I have reviewed the following items shey (where applicable) has been applied. Labs Laboratory Tests Test 09/14/21 13:30 09/14/21 16:58 09/15/21 06:00 Hemoglobin 8.4 g/dL (13.0-17.5) 11.5 g/dL (13.0-17.5) Sodium Level 140 mmol/L (136-145) 140 mmol/L (136-145) Potassium Level 3.7 mmol/L (3.5-5.1) 3.7 mmol/L (3.5-5.1) Chloride Level 100 mmol/L (98-107) 99 mmol/L (98-107) Carbon Dioxide Level 34 mmol/L (21-32) 35 mmol/L (21-32) Anion Gap 6 (6-14) 6 (6-14) Blood Urea Nitrogen 11 mg/dL (8-26) 12 mg/dL (8-26) Creatinine 0.6 mg/dL (0.7-1.3) 0.5 mg/dL (0.7-1.3) Estimated GFR (Cockcroft-Gault) 136.1 167.9 Glucose Level 107 mg/dL (70-99) 109 mg/dL (70-99) Calcium Level 8.5 mg/dL (8.5-10.1) 8.2 mg/dL (8.5-10.1) Glucose (Fingerstick) 90 mg/dL (70-99) White Blood Count 4.8 x10^3/uL (4.0-11.0) Red Blood Count 3.94 x10^6/uL (4.30-5.70) Hematocrit 35.3 % (39.0-53.0) Mean Corpuscular Volume 89 fL (79-100) Mean Corpuscular Hemoglobin 29 pg (25-35) Mean Corpuscular Hemoglobin Concent 33 g/dL (31-37) Red Cell Distribution Width 15.7 % (11.5-14.5) Platelet Count 81 x10^3/uL (140-400) Neutrophils (%) (Auto) 80 % (31-73) Lymphocytes (%) (Auto) 9 % (24-48) Monocytes (%) (Auto) 4 % (0-9) Eosinophils (%) (Auto) 6 % (0-3) Basophils (%) (Auto) 1 % (0-3) Neutrophils # (Auto) 3.8 x10^3/uL (1.8-7.7) Lymphocytes # (Auto) 0.4 x10^3/uL (1.0-4.8) Monocytes # (Auto) 0.2 x10^3/uL (0.0-1.1) Eosinophils # (Auto) 0.3 x10^3/uL (0.0-0.7) Basophils # (Auto) 0.0 x10^3/uL (0.0-0.2) Prothrombin Time 13.0 SEC (11.7-14.0) Prothromb Time International Ratio 1.0 (0.8-1.1) BUN/Creatinine Ratio 24 (6-20) Magnesium Level 1.8 mg/dL (1.8-2.4) Total Bilirubin 0.4 mg/dL (0.2-1.0) Aspartate Amino Transf (AST/SGOT) 61 U/L (15-37) Alanine Aminotransferase (ALT/SGPT) 58 U/L (16-63) Alkaline Phosphatase 225 U/L (46-116) Total Protein 5.5 g/dL (6.4-8.2) Albumin 1.3 g/dL (3.4-5.0) Albumin/Globulin Ratio 0.3 (1.0-1.7) Triglycerides Level 342 mg/dL (0-150) Microbiology 09/05/21 Urine Culture - Final, Complete 09/05/21 Blood Culture - Final, Complete NO GROWTH AFTER 5 DAYS 08/23/21 Respiratory Culture Gram Stain - Final, Complete 08/23/21 Respiratory Culture - Final, Complete Medications Current Medications Furosemide (Lasix) 40 mg 1X ONCE IVP Last administered on 09/14/21at 14:33; Start 09/14/21 at 14:00; Stop 09/14/21 at 14:01; Status DC Potassium Bicarbonate (Potassium Effervescent Tablet) 40 meq 1X ONCE PO Last administered on 09/14/21at 14:32; Start 09/14/21 at 14:45; Stop 09/14/21 at 14:46; Status DC Ringer's Solution 1,000 ml @ 50 mls/hr Q20H IV ; Start 09/17/21 at 07:00; Stop 09/17/21 at 18:59 Vitals/I & O Vital Sign - Last 24 Hours 09/14/21 09/14/21 09/14/21 09/14/21 10:00 11:00 12:00 12:05 Temp 100.1 100.1 Pulse 67 99 86 Resp B/P (MAP) 98/60 101/63 118/70 Pulse Ox 100 100 100 99 O2 Delivery Ventilator Ventilator Ventilator Ventilator 09/14/21 09/14/21 09/14/21 09/14/21 13:00 14:00 15:00 16:00 Temp 99.3 100.0 99.3 100.0 Pulse 76 76 76 76 Resp B/P (MAP) 130/69 119/66 115/69 115/62 Pulse Ox 100 100 100 100 O2 Delivery Ventilator Ventilator Ventilator Ventilator 09/14/21 09/14/21 09/14/21 09/14/21 16:23 17:00 18:00 18:17 Pulse 78 82 Resp B/P (MAP) 124/73 137/78 Pulse Ox 98 100 100 100 O2 Delivery Ventilator Ventilator Ventilator Ventilator 09/14/21 09/14/21 09/14/21 09/14/21 19:00 20:00 20:00 20:58 Temp 97.9 97.9 Pulse 74 76 B/P (MAP) 105/58 115/60 Pulse Ox 100 100 100 O2 Delivery Ventilator Mechanical Ventilator Ventilator Ventilator 09/14/21 09/14/21 09/14/21 09/15/21 21:00 22:05 23:00 00:00 Pulse 76 78 74 Resp B/P (MAP) 105/61 116/64 98/61 Pulse Ox 100 100 100 O2 Delivery Ventilator Ventilator Ventilator Mechanical Ventilator 09/15/21 09/15/21 09/15/21 09/15/21 00:00 00:17 01:05 02:00 Temp 99.1 99.1 Pulse 74 74 71 Resp B/P (MAP) 101/61 100/59 98/59 Pulse Ox 100 100 100 100 O2 Delivery Ventilator Ventilator Ventilator Ventilator 09/15/21 09/15/21 09/15/21 09/15/21 02:36 03:00 04:00 04:00 Temp 98.8 98.8 Pulse 70 90 Resp B/P (MAP) 105/61 97/58 Pulse Ox 100 100 100 O2 Delivery Ventilator Ventilator Mechanical Ventilator Ventilator 09/15/21 09/15/21 09/15/21 09/15/21 05:00 05:24 06:00 07:00 Pulse 102 108 104 Resp B/P (MAP) 102/62 105/67 95/61 Pulse Ox 100 100 100 100 O2 Delivery Ventilator Ventilator Ventilator Ventilator 09/15/21 08:13 Pulse 104 B/P (MAP) 95/61 Intake and Output 09/14/21 09/14/21 09/15/21 15:00 23:00 07:00 Intake Total 600 ml 1659.1 ml 1674 ml Output Total 1000 ml 1425 ml 815 ml Balance -400 ml 234.1 ml 859 ml NICOLA CARRASCO MD Sep 15, 2021 09:36
--- NOTE | 2021-09-15 10:29 | PDOC ---
PULMONARY PROGRESS NOTES DATE: 09/15/21 TIME: 10:25 Subjective Remains on assist control mode. Fever curve improved. Oxygen requirement has improved. Status post tracheostomy 09/13/2021 Had short run of V. tach. Vitals Vital Signs Date Time Temp Pulse Resp B/P (MAP) Pulse Ox O2 Delivery O2 Flow Rate FiO2 09/15/21 10:00 104 22 93/69 100 Ventilator 09/15/21 08:00 99.2 99.2 Comments ros unable to obtain sedated on vent HEENT: Other (nc at perrl nose clear orally intubated neck no lad no thyromegaly) Lungs: Clear Cardiovascular: S1, S2 Abdomen: Soft, Non-tender Extremities: No Edema Skin: Warm Labs Laboratory Tests Test 09/13/21 23:25 09/14/21 05:50 09/14/21 08:00 09/14/21 13:30 White Blood Count 10.4 x10^3/uL (4.0-11.0) 8.0 x10^3/uL (4.0-11.0) Red Blood Count 2.25 x10^6/uL (4.30-5.70) 2.60 x10^6/uL (4.30-5.70) Hemoglobin 6.8 g/dL (13.0-17.5) 7.7 g/dL (13.0-17.5) 8.4 g/dL (13.0-17.5) Hematocrit 20.2 % (39.0-53.0) 23.2 % (39.0-53.0) Mean Corpuscular Volume 90 fL (79-100) 90 fL (79-100) Mean Corpuscular Hemoglobin 30 pg (25-35) 30 pg (25-35) Mean Corpuscular Hemoglobin Concent 34 g/dL (31-37) 33 g/dL (31-37) Red Cell Distribution Width 16.8 % (11.5-14.5) 15.3 % (11.5-14.5) Platelet Count 127 x10^3/uL (140-400) 119 x10^3/uL (140-400) Sodium Level 139 mmol/L (136-145) 142 mmol/L (136-145) 140 mmol/L (136-145) Potassium Level 3.4 mmol/L (3.5-5.1) 3.2 mmol/L (3.5-5.1) 3.7 mmol/L (3.5-5.1) Chloride Level 99 mmol/L (98-107) 102 mmol/L (98-107) 100 mmol/L (98-107) Carbon Dioxide Level 35 mmol/L (21-32) 33 mmol/L (21-32) 34 mmol/L (21-32) Anion Gap 5 (6-14) 7 (6-14) 6 (6-14) Blood Urea Nitrogen 12 mg/dL (8-26) 12 mg/dL (8-26) 11 mg/dL (8-26) Creatinine 0.6 mg/dL (0.7-1.3) 0.5 mg/dL (0.7-1.3) 0.6 mg/dL (0.7-1.3) Estimated GFR (Cockcroft-Gault) 136.1 167.9 136.1 Glucose Level 148 mg/dL (70-99) 106 mg/dL (70-99) 107 mg/dL (70-99) Calcium Level 7.8 mg/dL (8.5-10.1) 8.3 mg/dL (8.5-10.1) 8.5 mg/dL (8.5-10.1) Magnesium Level 1.9 mg/dL (1.8-2.4) 2.1 mg/dL (1.8-2.4) BUN/Creatinine Ratio 24 (6-20) Total Bilirubin 0.4 mg/dL (0.2-1.0) Aspartate Amino Transf (AST/SGOT) 50 U/L (15-37) Alanine Aminotransferase (ALT/SGPT) 46 U/L (16-63) Alkaline Phosphatase 113 U/L (46-116) Total Protein 5.0 g/dL (6.4-8.2) Albumin 1.4 g/dL (3.4-5.0) Albumin/Globulin Ratio 0.4 (1.0-1.7) O2 Saturation 94 % (92-99) Arterial Blood pH 7.43 (7.35-7.45) Arterial Blood pCO2 at Patient Temp 51 mmHg (35-46) Arterial Blood pO2 at Patient Temp 72 mmHg (65-108) Arterial Blood HCO3 33 mmol/L (21-28) Arterial Blood Base Excess 8 mmol/L (-3-3) FiO2 40 Test 09/14/21 16:58 09/15/21 06:00 Glucose (Fingerstick) 90 mg/dL (70-99) White Blood Count 4.8 x10^3/uL (4.0-11.0) Red Blood Count 3.94 x10^6/uL (4.30-5.70) Hemoglobin 11.5 g/dL (13.0-17.5) Hematocrit 35.3 % (39.0-53.0) Mean Corpuscular Volume 89 fL (79-100) Mean Corpuscular Hemoglobin 29 pg (25-35) Mean Corpuscular Hemoglobin Concent 33 g/dL (31-37) Red Cell Distribution Width 15.7 % (11.5-14.5) Platelet Count 81 x10^3/uL (140-400) Neutrophils (%) (Auto) 80 % (31-73) Lymphocytes (%) (Auto) 9 % (24-48) Monocytes (%) (Auto) 4 % (0-9) Eosinophils (%) (Auto) 6 % (0-3) Basophils (%) (Auto) 1 % (0-3) Neutrophils # (Auto) 3.8 x10^3/uL (1.8-7.7) Lymphocytes # (Auto) 0.4 x10^3/uL (1.0-4.8) Monocytes # (Auto) 0.2 x10^3/uL (0.0-1.1) Eosinophils # (Auto) 0.3 x10^3/uL (0.0-0.7) Basophils # (Auto) 0.0 x10^3/uL (0.0-0.2) Prothrombin Time 13.0 SEC (11.7-14.0) Prothromb Time International Ratio 1.0 (0.8-1.1) Sodium Level 140 mmol/L (136-145) Potassium Level 3.7 mmol/L (3.5-5.1) Chloride Level 99 mmol/L (98-107) Carbon Dioxide Level 35 mmol/L (21-32) Anion Gap 6 (6-14) Blood Urea Nitrogen 12 mg/dL (8-26) Creatinine 0.5 mg/dL (0.7-1.3) Estimated GFR (Cockcroft-Gault) 167.9 BUN/Creatinine Ratio 24 (6-20) Glucose Level 109 mg/dL (70-99) Calcium Level 8.2 mg/dL (8.5-10.1) Magnesium Level 1.8 mg/dL (1.8-2.4) Total Bilirubin 0.4 mg/dL (0.2-1.0) Aspartate Amino Transf (AST/SGOT) 61 U/L (15-37) Alanine Aminotransferase (ALT/SGPT) 58 U/L (16-63) Alkaline Phosphatase 225 U/L (46-116) Total Protein 5.5 g/dL (6.4-8.2) Albumin 1.3 g/dL (3.4-5.0) Albumin/Globulin Ratio 0.3 (1.0-1.7) Triglycerides Level 342 mg/dL (0-150) Laboratory Tests Test 09/14/21 13:30 09/14/21 16:58 09/15/21 06:00 Hemoglobin 8.4 g/dL (13.0-17.5) 11.5 g/dL (13.0-17.5) Sodium Level 140 mmol/L (136-145) 140 mmol/L (136-145) Potassium Level 3.7 mmol/L (3.5-5.1) 3.7 mmol/L (3.5-5.1) Chloride Level 100 mmol/L (98-107) 99 mmol/L (98-107) Carbon Dioxide Level 34 mmol/L (21-32) 35 mmol/L (21-32) Anion Gap 6 (6-14) 6 (6-14) Blood Urea Nitrogen 11 mg/dL (8-26) 12 mg/dL (8-26) Creatinine 0.6 mg/dL (0.7-1.3) 0.5 mg/dL (0.7-1.3) Estimated GFR (Cockcroft-Gault) 136.1 167.9 Glucose Level 107 mg/dL (70-99) 109 mg/dL (70-99) Calcium Level 8.5 mg/dL (8.5-10.1) 8.2 mg/dL (8.5-10.1) Glucose (Fingerstick) 90 mg/dL (70-99) White Blood Count 4.8 x10^3/uL (4.0-11.0) Red Blood Count 3.94 x10^6/uL (4.30-5.70) Hematocrit 35.3 % (39.0-53.0) Mean Corpuscular Volume 89 fL (79-100) Mean Corpuscular Hemoglobin 29 pg (25-35) Mean Corpuscular Hemoglobin Concent 33 g/dL (31-37) Red Cell Distribution Width 15.7 % (11.5-14.5) Platelet Count 81 x10^3/uL (140-400) Neutrophils (%) (Auto) 80 % (31-73) Lymphocytes (%) (Auto) 9 % (24-48) Monocytes (%) (Auto) 4 % (0-9) Eosinophils (%) (Auto) 6 % (0-3) Basophils (%) (Auto) 1 % (0-3) Neutrophils # (Auto) 3.8 x10^3/uL (1.8-7.7) Lymphocytes # (Auto) 0.4 x10^3/uL (1.0-4.8) Monocytes # (Auto) 0.2 x10^3/uL (0.0-1.1) Eosinophils # (Auto) 0.3 x10^3/uL (0.0-0.7) Basophils # (Auto) 0.0 x10^3/uL (0.0-0.2) Prothrombin Time 13.0 SEC (11.7-14.0) Prothromb Time International Ratio 1.0 (0.8-1.1) BUN/Creatinine Ratio 24 (6-20) Magnesium Level 1.8 mg/dL (1.8-2.4) Total Bilirubin 0.4 mg/dL (0.2-1.0) Aspartate Amino Transf (AST/SGOT) 61 U/L (15-37) Alanine Aminotransferase (ALT/SGPT) 58 U/L (16-63) Alkaline Phosphatase 225 U/L (46-116) Total Protein 5.5 g/dL (6.4-8.2) Albumin 1.3 g/dL (3.4-5.0) Albumin/Globulin Ratio 0.3 (1.0-1.7) Triglycerides Level 342 mg/dL (0-150) Comments Chest x-ray reviewed 09/12/2021. Diffuse bilateral interstitial infiltrates. Increased volume loss left lower lobe. CT chest abdomen and pelvis reviewed. Dated 09/10/2021 Impression: 1. Left lower lobe airspace consolidation superimposed on diffuse groundglass opacity with emphysematous and fibrotic change. Findings suspected to represent multifocal infectious process. 2. Infrarenal aortic aneurysm measuring 3.4 cm diameter. 3. Distended gallbladder without wall thickening. Correlate for right upper quadrant symptoms, consider acalculous cholecystitis in the setting of prolonged illness. Impression . 1. Acute hypoxic respiratory failure secondary to COVID-19 pneumonia, acute respiratory distress syndrome and possible underlying fibrosis and emphysema., Extubated 08/20, reintubated 08/23 status post CODE BLUE/semi-CODE BLUE on 09/05. S tatus post tracheostomy 09/13/[address] chest. Reviewed dated 09/10/2021. Left lower lobe consolidation versus atelectasis. Evidence of possible mild fibrosis. There is evidence of pneumatoceles related to Covid. 3. New sepsis. Continues to have fever. White cell count trending down. CT chest with left lower lobe consolidation, doubt the source of fever. CT abdomen with acalculous cholecystitis. Could be the source. 4. Suspected underlying severe chronic obstructive pulmonary disease. 5. COVID-19 viral pneumonia.--- Covid recovered 6. Abnormal chest x-ray with bilateral diffuse infiltrates related to COVID-19 viral pneumonia.--- Covid recovered 7. Patient reintubated 08/23, status post CODE BLUE 8. Abnormal x-ray from 08/15, possible ARDS, possible pulmonary edema, possible aspiration 9. ST elevation MS status post intra-aortic balloon pump--08/23/2021 10. Emergent cardiac catheterization revealing 90% stenotic lesion 11. Echocardiogram revealing ejection fraction of 35 to 40% pulmonary artery pressure of 34 inferior septal wall hypokinesis 12. MRSA bacteremia, lines removed. 13. Necrotic toe left second, suspect related COVID Cardiac catheterization 08/30 Due to large vessel size a decision was made to defer stenting at this time for continued medical therapy. After the patient is fully extubated and depending on symptoms could consider PCI. Conclusion 1. Recanalized right coronary artery with brisk blood flow. 2. Residual proximal 70% RCA stenosis with significant ectasia of the RCA measuring up to 6.25 mm. 3. Normal left ventricular filling pressures. Recommendations 1. Continue aspirin, Plavix and heparin drip. 2. Continue plans for extubation. 3. After patient is extubated and stabilized depending on symptoms we will consider high risk PCI with specialized MegaTron stent given the large vessel size. Plan . Updated 09/15 Continue present assist-control mode. Oxygen requirement has improved. Patient developed new sepsis , has clinically improved. Status post tracheostomy 09/13/2021 Will wean off sedation and start weaning in the next 24 hours. Off steroids Broad-spectrum antibiotics per ID. Leukocytosis is resolved. ABG noted Blood cultures negative. C. difficile negative I doubt left lower lobe atelectasis/consolidation is the etiology for marked leukocytosis. Acalculous cholecystitis could be the source. Follow GI recommendations. Discussed with RN RT Discussed with surgery Dr. Miller Discussed with in detail. Explained to her that patient will be transferred next week to LTAC. PEG will be placed next week prior to transfer Updated 09/14 Continue present assist-control mode. Oxygen requirement has improved. Patient developed new sepsis , has clinically improved. Status post tracheostomy 09/13/2021 Will wean off sedation and start weaning in the next 24 hours. Off steroids Broad-spectrum antibiotics per ID. Leukocytosis is resolved. ABG noted Blood cultures negative. C. difficile negative I doubt left lower lobe atelectasis/consolidation is the etiology for marked leukocytosis. Acalculous cholecystitis could be the source. Follow GI recommendations. Discussed with RN RT Discussed with surgery Dr. Miller Discussed with in detail. Explained to her that patient will be transfe rred next week to LTAC. PEG will be placed next week prior to transfer MICHELLE KNOWLES MD Sep 15, 2021 10:29
[2021-09-15 10:37] LABS: FIO2 ABG 40
--- NOTE | 2021-09-15 12:52 | PDOC ---
Infectious Disease Note Subjective Subjective Patient is sedated on the ventilator ROS ROS No nausea vomiting diarrhea or fever Vital Sign Vital Signs Vital Signs Date Time Temp Pulse Resp B/P (MAP) Pulse Ox O2 Delivery O2 Flow Rate FiO2 09/15/21 12:00 99.2 75 22 96/62 100 Ventilator 99.2 Physical Exam PHYSICAL EXAM GENERAL: Intubated through trach HEENT: No conjunctival petechia. OGT present LUNGS: Coarse breath sounds in the bases, otherwise clear. HEART: S1, S2, irregular. I could not appreciate any murmurs. ABDOMEN: Soft, nontender, nondistended. Bowel sounds present. GENITOURINARY: Berumen in place. EXTREMITIES: Present no cyanosis. Right groin catheter removed, Right upper extremity PICC line placed on 08/23/2021.Lt 2nd digit black DERMATOLOGIC: Warm, dry, no generalized rash. NEUROLOGIC: Unable to assess. Labs Lab Laboratory Tests Test 09/14/21 13:30 09/14/21 16:58 09/15/21 06:00 09/15/21 08:40 Hemoglobin 8.4 g/dL (13.0-17.5) 11.5 g/dL (13.0-17.5) Sodium Level 140 mmol/L (136-145) 140 mmol/L (136-145) Potassium Level 3.7 mmol/L (3.5-5.1) 3.7 mmol/L (3.5-5.1) Chloride Level 100 mmol/L (98-107) 99 mmol/L (98-107) Carbon Dioxide Level 34 mmol/L (21-32) 35 mmol/L (21-32) Anion Gap 6 (6-14) 6 (6-14) Blood Urea Nitrogen 11 mg/dL (8-26) 12 mg/dL (8-26) Creatinine 0.6 mg/dL (0.7-1.3) 0.5 mg/dL (0.7-1.3) Estimated GFR (Cockcroft-Gault) 136.1 167.9 Glucose Level 107 mg/dL (70-99) 109 mg/dL (70-99) Calcium Level 8.5 mg/dL (8.5-10.1) 8.2 mg/dL (8.5-10.1) Glucose (Fingerstick) 90 mg/dL (70-99) White Blood Count 4.8 x10^3/uL (4.0-11.0) Red Blood Count 3.94 x10^6/uL (4.30-5.70) Hematocrit 35.3 % (39.0-53.0) Mean Corpuscular Volume 89 fL (79-100) Mean Corpuscular Hemoglobin 29 pg (25-35) Mean Corpuscular Hemoglobin Concent 33 g/dL (31-37) Red Cell Distribution Width 15.7 % (11.5-14.5) Platelet Count 81 x10^3/uL (140-400) Neutrophils (%) (Auto) 80 % (31-73) Lymphocytes (%) (Auto) 9 % (24-48) Monocytes (%) (Auto) 4 % (0-9) Eosinophils (%) (Auto) 6 % (0-3) Basophils (%) (Auto) 1 % (0-3) Neutrophils # (Auto) 3.8 x10^3/uL (1.8-7.7) Lymphocytes # (Auto) 0.4 x10^3/uL (1.0-4.8) Monocytes # (Auto) 0.2 x10^3/uL (0.0-1.1) Eosinophils # (Auto) 0.3 x10^3/uL (0.0-0.7) Basophils # (Auto) 0.0 x10^3/uL (0.0-0.2) Prothrombin Time 13.0 SEC (11.7-14.0) Prothromb Time International Ratio 1.0 (0.8-1.1) BUN/Creatinine Ratio 24 (6-20) Magnesium Level 1.8 mg/dL (1.8-2.4) Total Bilirubin 0.4 mg/dL (0.2-1.0) Aspartate Amino Transf (AST/SGOT) 61 U/L (15-37) Alanine Aminotransferase (ALT/SGPT) 58 U/L (16-63) Alkaline Phosphatase 225 U/L (46-116) Total Protein 5.5 g/dL (6.4-8.2) Albumin 1.3 g/dL (3.4-5.0) Albumin/Globulin Ratio 0.3 (1.0-1.7) Triglycerides Level 342 mg/dL (0-150) O2 Saturation 96 % (92-99) Arterial Blood pH 7.43 (7.35-7.45) Arterial Blood pCO2 at Patient Temp 53 mmHg (35-46) Arterial Blood pO2 at Patient Temp 91 mmHg (65-108) Arterial Blood HCO3 35 mmol/L (21-28) Arterial Blood Base Excess 9 mmol/L (-3-3) FiO2 40 Test 09/15/21 11:51 Glucose (Fingerstick) 119 mg/dL (70-99) Micro Microbiology 08/24/21 Blood Culture - Preliminary, Resulted NO GROWTH AFTER 2 DAYS 08/23/21 Respiratory Culture Gram Stain - Final, Complete 08/23/21 Respiratory Culture - Final, Complete Objective Assessment Fever multifactorial s/p code ,possible aspiration pattern improved 1. Gram-positive bacteremia,MRSE 08/22/2021.Central line was pulled out 2. Acute hypoxic respiratory failure. 3. COVID-19 pneumonia. 4. Chronic obstructive pulmonary disease with possible underlying pulmonary fibrosis, aspiration pneumonia. 5. Status post code atrial fibrillation with rapid ventricular response, ventricular fibrillation, status post defibrillation, epinephrine, bicarbonate drip, status post cardiac catheterization. IABP placement. 6. Severe protein-calorie malnutrition. 7. Abnormal liver function tests, likely shock liver. 8. Anemia. 9. Encephalopathy likely anoxic 10.Electrolyte abn 11.Leucocytosis improving Plan Plan of Care Cont Dapto ,, meropenem,micafungin WBC decreasing,could also have a reactive component as he has anemia HB dropping CT C/A/P 09/10 reviewed, GB distended C. 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
[2021-09-15] MEDS: MICAFUNGIN 100 MG in IV DEXTROSE 5% 100ML 100 ML IV SCH (13:37)
[2021-09-15] MEDS: ATORVASTATIN CALCIUM 40 MG TABLET. PO SCH (21:11)
[2021-09-15] MEDS: fentaNYL HIGH DOSE PCA 55 ML IV PRN (21:12)
[2021-09-16] VITALS (30 sets, daily range): BP systolic 90–129; BP diastolic 58–83
[2021-09-16] MEDS: MEROPENEM 500 MG in IV NORMAL SALINE 50ML 50 ML IV SCH ×5 (00:16→23:35)
[2021-09-16] MEDS: PROPOFOL 100 ML IV PRN ×4 (01:50→23:37)
[2021-09-16 05:56] LABS: HEMATOCRIT 22.9 % (39.0-53.0); HEMOGLOBIN 7.6 g/dL (13.0-17.5); RED BLOOD COUNT 2.58 x10^6/uL (4.30-5.70); RED CELL DISTRIBUTION WIDTH 15.7 % (11.5-14.5); WHITE BLOOD COUNT 6.3 x10^3/uL (4.0-11.0)
[2021-09-16 05:59] LABS: CALCIUM 8.5 mg/dL (8.5-10.1); CREATININE 0.7 mg/dL (0.7-1.3); GFR 113.9; POTASSIUM 3.7 mmol/L (3.5-5.1)
[2021-09-16 08:21] LABS: BASE EXCESS ABG 8 mmol/L (-3-3); HCO3 ABG 33 mmol/L (21-28); PCO2 ABG 54 mmHg (35-46); PO2 ABG 97 mmHg (65-108); SAT O2 ABG 97 % (92-99)
--- NOTE | 2021-09-16 08:23 | PDOC ---
PROGRESS NOTES Date of Service: DATE: 09/16/21 TIME: 08:22 Subjective Subjective s/p trach, AC mode on Levophed drip Objective Objective Vital Signs Date Time Temp Pulse Resp B/P (MAP) Pulse Ox O2 Delivery O2 Flow Rate FiO2 09/16/21 08:07 100 Ventilator 09/16/21 07:00 70 22 99/63 09/16/21 04:00 98.6 98.6 Intake and Output 09/16/21 07:00 Intake Total 3802.95 ml Output Total 1510 ml Balance 2292.95 ml IV Total 1444.95 ml Tube Feeding 1693 ml Other 665 ml Output Urine Total 1510 ml Gastric Drainage Total 0 ml Physical Exam Abdomen: Soft Heart: Other (AFIB RVRl distatn heart sounds) Extremities: No cyanosis, No edema General: No acute distress HEENT: Other (trach intact without bleeding) Lungs: Other (intubated with MC, diminished throughout) Psych/Mental Status: Other (sedated) Skin: No rashes Assessment Assessment 1. S/P cardiac arrest; multifactorial. Noted with VT shock x1. approximately <3 min to ROSC. 2. Acute on chronic respiratory failure with COVID PNA, ARDS. unable to be weaned from vent. CXR with worsening consolidation, PNA. s/p tracheostomy 3. CAD, inferior STEMI with embolic disease. Repeat LHC showed recanalized RCA with brisk blood flow. Residual proximal 70% RCA stenosis with significant ectasia of the RCA 4. Cardiogenic shock; IABP removed. 5. Acute on chronic systolic CHF, ICM: EF at 35-40%. 6. AFIB RVR: presently SR. telemetry showed few episodes of atrial fibrillation 7. Bradyarrhythmia; resolved. Avoid AV clara blocking agents 8. Hyperlipidemia; statin 9. Black distal phalanx to left 2nd toe: possibly r/t to covid-19. no significnat PAD per duplex 10. Leukocytosis, fevers, sepsis. CT abdomen/pelvis with gallbladder distention, but US without evidence of cholecystitis. Remains of pressor support. 11. Anemia; S/P PRBC Recommendations Aspirin, statin therapy Amiodarone for rhythm maintenance Continue levophed Pulmonary team following Plan for PEG placement and possible transfer to [facility] Comment Review of Relevant I have reviewed the following items shey (where applicable) has been applied. Labs Laboratory Tests Test 09/15/21 08:40 09/15/21 11:51 09/15/21 17:42 09/16/21 05:40 O2 Saturation 96 % (92-99) Arterial Blood pH 7.43 (7.35-7.45) Arterial Blood pCO2 at Patient Temp 53 mmHg (35-46) Arterial Blood pO2 at Patient Temp 91 mmHg (65-108) Arterial Blood HCO3 35 mmol/L (21-28) Arterial Blood Base Excess 9 mmol/L (-3-3) FiO2 40 Glucose (Fingerstick) 119 mg/dL (70-99) 101 mg/dL (70-99) White Blood Count 6.3 x10^3/uL (4.0-11.0) Red Blood Count 2.58 x10^6/uL (4.30-5.70) Hemoglobin 7.6 g/dL (13.0-17.5) Hematocrit 22.9 % (39.0-53.0) Mean Corpuscular Volume 89 fL (79-100) Mean Corpuscular Hemoglobin 30 pg (25-35) Mean Corpuscular Hemoglobin Concent 33 g/dL (31-37) Red Cell Distribution Width 15.7 % (11.5-14.5) Platelet Count 101 x10^3/uL (140-400) Sodium Level 137 mmol/L (136-145) Potassium Level 3.7 mmol/L (3.5-5.1) Chloride Level 97 mmol/L (98-107) Carbon Dioxide Level 34 mmol/L (21-32) Anion Gap 6 (6-14) Blood Urea Nitrogen 14 mg/dL (8-26) Creatinine 0.7 mg/dL (0.7-1.3) Estimated GFR (Cockcroft-Gault) 113.9 Glucose Level 112 mg/dL (70-99) Calcium Level 8.5 mg/dL (8.5-10.1) Microbiology 09/05/21 Urine Culture - Final, Complete 09/05/21 Blood Culture - Final, Complete NO GROWTH AFTER 5 DAYS 08/23/21 Respiratory Culture Gram Stain - Final, Complete 08/23/21 Respiratory Culture - Final, Complete Medications Current Medications Ringer's Solution 1,000 ml @ 50 mls/hr Q20H IV ; Start 09/17/21 at 07:00; Stop 09/17/21 at 18:59 Vitals/I & O Vital Sign - Last 24 Hours 09/15/21 09/15/21 09/15/21 09/15/21 09:00 10:00 11:00 11:25 Pulse 104 104 76 Resp B/P (MAP) 100/64 93/69 91/60 Pulse Ox 100 100 100 100 O2 Delivery Ventilator Ventilator Ventilator Ventilator 09/15/21 09/15/21 09/15/21 09/15/21 12:00 12:00 13:00 14:00 Temp 99.2 99.2 Pulse 75 75 71 Resp B/P (MAP) 96/62 98/62 100/62 Pulse Ox 100 100 100 O2 Delivery Mechanical Ventilator Ventilator Ventilator Ventilator 09/15/21 09/15/21 09/15/21 09/15/21 15:00 15:45 16:00 16:00 Temp 99.5 99.5 Pulse 72 74 Resp B/P (MAP) 113/62 121/72 Pulse Ox 100 98 100 O2 Delivery Ventilator Ventilator Ventilator Mechanical Ventilator 09/15/21 09/15/21 09/15/21 09/15/21 17:00 18:00 19:00 19:30 Pulse 68 68 68 68 Resp B/P (MAP) 102/60 98/61 99/62 99/59 Pulse Ox 100 100 100 100 O2 Delivery Ventilator Ventilator Ventilator Ventilator 09/15/21 09/15/21 09/15/21 09/15/21 20:00 20:00 20:30 21:00 Temp 98.3 98.3 Pulse 68 68 68 Resp B/P (MAP) 101/65 93/57 98/60 Pulse Ox 100 100 100 O2 Delivery Ventilator Mechanical Ventilator Ventilator Ventilator 09/15/21 09/15/21 09/15/21 09/15/21 21:12 21:30 21:42 21:53 Pulse 70 Resp B/P (MAP) 116/64 Pulse Ox 100 100 100 98 O2 Delivery Ventilator Ventilator Ventilator Ventilator 09/15/21 09/15/21 09/15/21 09/15/21 22:00 22:30 23:00 23:30 Pulse 70 70 69 64 Resp B/P (MAP) 105/64 95/59 92/59 109/64 Pulse Ox 100 100 100 100 O2 Delivery Ventilator Ventilator Ventilator Ventilator 09/16/21 09/16/21 09/16/21 09/16/21 00:00 00:00 00:00 00:30 Temp 98.5 98.5 Pulse 66 66 B/P (MAP) 96/65 96/65 Pulse Ox 98 100 100 O2 Delivery Mechanical Ventilator Ventilator Ventilator Ventilator 09/16/21 09/16/21 09/16/21 09/16/21 01:00 01:30 02:00 02:30 Pulse 70 68 72 70 Resp B/P (MAP) 114/69 96/62 112/72 110/66 Pulse Ox 100 100 100 100 O2 Delivery Ventilator Ventilator Ventilator Ventilator 09/16/21 09/16/21 09/16/21 09/16/21 03:00 03:30 04:00 04:00 Temp 98.6 98.6 Pulse 68 68 66 Resp B/P (MAP) 101/62 98/62 99/66 Pulse Ox 100 100 100 O2 Delivery Ventilator Ventilator Ventilator Mechanical Ventilator 09/16/21 09/16/21 09/16/21 09/16/21 04:00 04:30 05:00 05:30 Pulse 70 70 68 Resp B/P (MAP) 101/61 109/70 114/66 Pulse Ox 100 100 100 100 O2 Delivery Ventilator Ventilator Ventilator Ventilator 09/16/21 09/16/21 09/16/21 06:00 07:00 08:07 Pulse 72 70 Resp B/P (MAP) 108/64 99/63 Pulse Ox 100 100 100 O2 Delivery Ventilator Ventilator Ventilator Intake and Output 09/15/21 09/15/21 09/16/21 15:00 23:00 07:00 Intake Total 764.65 ml 1826.2 ml 1212.1 ml Output Total 385 ml 400 ml 725 ml Balance 379.65 ml 1426.2 ml 487.1 ml NICOLA CARRASCO MD Sep 16, 2021 08:23
[2021-09-16 08:32] LABS: FIO2 ABG 40% AC 22 400 5
--- NOTE | 2021-09-16 09:25 | PN ---
DATE: 09/16/2021 SUBJECTIVE: The patient is resting, slightly propped up in bed, continued to be heavily sedated, also on Levophed. He is maintaining his oxygen saturation at 99% on FiO2 of 35%. PHYSICAL EXAMINATION: GENERAL: When I examined him, he was pale, not jaundiced, cyanosed. No thyromegaly. No jugular venous distention. No limb edema. VITAL SIGNS: His heart rate was 70, blood pressure was 99/63, temperature was 98.6, respiratory rate was 22 and oxygen saturation was 100%. HEAD, EYES, EARS, NOSE AND THROAT: Normocephalic, atraumatic. He has orogastric tube in place. NECK: Supple with a tracheostomy tube in place. HEART: Showed normal first and second heart sounds. No gallop, rub or murmur. CHEST: Clear to auscultation. No crepitation or rhonchi anteriorly. ABDOMEN: Distended, soft, nontender. NEUROLOGIC: He is heavily sedated. His intake over the last 24 hours was 3900, output was 3240. LABORATORY DATA: As of this morning, his white cell count was 6300, hemoglobin 7.6, hematocrit 22.9, MCV 89 and platelet count of 101,000. His chemistry showed a serum sodium 137, potassium 3.7, chloride 97, bicarbonate 34, anion gap of 6, BUN 14, creatinine 0.7. Estimated GFR was 113 mL per minute. His glucose 112, calcium was 8.5. His arterial blood gases this morning showed a pH of 7.41, pCO2 of 54, pO2 of 97, bicarbonate 33 and oxygen saturation was 97% on FiO2 of 40%. ASSESSMENT: 1. The patient is status post cardiac arrest, likely due to hypoxia. Also, has COVID-19 pneumonia as well as acute inferior wall myocardial infarction. Apparently, the patient went into ventricular tachycardia, it was shocked, then went into ventricular fibrillation, treated with CPR and epinephrine with return of spontaneous circulation. He continues to have episodes of bradycardia, bigeminy as well as atrial fibrillation with rapid ventricular response; however, he is mostly in sinus rhythm. 2. Acute on chronic hypoxic respiratory failure. 3. Has leukocytosis. This is actually improving. In fact, his white cell count has finally normalized. He also continued to have anemia, although his hemoglobin and hematocrit went up to 11 and now down again. 4. Thrombocytopenia with a platelet count steadily dropping. His most recent platelet count went up to 101,000. He is on daptomycin, linezolid and micafungin. All of them can cause thrombocytopenia. 5. Acute respiratory distress syndrome. 6. Acute exacerbation of chronic obstructive pulmonary disease. 7. COVID-19 pneumonia. 8. Atrial fibrillation with rapid ventricular response that is rate controlled. He is off heparin as well as Plavix. He is on a baby aspirin. 9. The patient has undergone cardiac catheterization for a second time and that showed the patient has recanalized his right coronary artery, for which he is initially started on Plavix and aspirin. 10. The patient has a tracheostomy tube placed successfully. He continued to have orogastric tube for tube feeding for now. 11. His right upper extremity is markedly swollen and he has also a PICC line in that extremity. I will arrange for him to have venous Doppler ultrasound, although unfortunately he is not a candidate for anticoagulation given that he is losing blood. PLAN: To continue mechanical ventilation, wean as tolerated. Continue with IV antibiotic. Continue with DVT and GI prophylaxis. Continue to monitor his H and H and transfuse him as needed. He will eventually need a gastrostomy tube and transferred to [facility]. VEL DR: Vannessa TID: [id number]
--- NOTE | 2021-09-16 09:32 | PDOC ---
PULMONARY PROGRESS NOTES DATE: 09/16/21 TIME: 09:30 Subjective Remains on assist control mode. Versed has been off. Not awake. Still on fentanyl and propofol. Oxygen requirement has improved. Status post tracheostomy 09/13/2021 Had short run of V. tach. Vitals Vital Signs Date Time Temp Pulse Resp B/P (MAP) Pulse Ox O2 Delivery O2 Flow Rate FiO2 09/16/21 08:26 Ventilator 09/16/21 08:07 100 09/16/21 07:00 70 22 99/63 09/16/21 04:00 98.6 98.6 Comments ros unable to obtain sedated on vent HEENT: Other (nc at perrl nose clear orally intubated neck no lad no thyromegaly) Lungs: Clear Cardiovascular: S1, S2 Abdomen: Soft, Non-tender Extremities: No Edema Skin: Warm Labs Laboratory Tests Test 09/14/21 13:30 09/14/21 16:58 09/15/21 06:00 09/15/21 08:40 Hemoglobin 8.4 g/dL (13.0-17.5) 11.5 g/dL (13.0-17.5) Sodium Level 140 mmol/L (136-145) 140 mmol/L (136-145) Potassium Level 3.7 mmol/L (3.5-5.1) 3.7 mmol/L (3.5-5.1) Chloride Level 100 mmol/L (98-107) 99 mmol/L (98-107) Carbon Dioxide Level 34 mmol/L (21-32) 35 mmol/L (21-32) Anion Gap 6 (6-14) 6 (6-14) Blood Urea Nitrogen 11 mg/dL (8-26) 12 mg/dL (8-26) Creatinine 0.6 mg/dL (0.7-1.3) 0.5 mg/dL (0.7-1.3) Estimated GFR (Cockcroft-Gault) 136.1 167.9 Glucose Level 107 mg/dL (70-99) 109 mg/dL (70-99) Calcium Level 8.5 mg/dL (8.5-10.1) 8.2 mg/dL (8.5-10.1) Glucose (Fingerstick) 90 mg/dL (70-99) White Blood Count 4.8 x10^3/uL (4.0-11.0) Red Blood Count 3.94 x10^6/uL (4.30-5.70) Hematocrit 35.3 % (39.0-53.0) Mean Corpuscular Volume 89 fL (79-100) Mean Corpuscular Hemoglobin 29 pg (25-35) Mean Corpuscular Hemoglobin Concent 33 g/dL (31-37) Red Cell Distribution Width 15.7 % (11.5-14.5) Platelet Count 81 x10^3/uL (140-400) Neutrophils (%) (Auto) 80 % (31-73) Lymphocytes (%) (Auto) 9 % (24-48) Monocytes (%) (Auto) 4 % (0-9) Eosinophils (%) (Auto) 6 % (0-3) Basophils (%) (Auto) 1 % (0-3) Neutrophils # (Auto) 3.8 x10^3/uL (1.8-7.7) Lymphocytes # (Auto) 0.4 x10^3/uL (1.0-4.8) Monocytes # (Auto) 0.2 x10^3/uL (0.0-1.1) Eosinophils # (Auto) 0.3 x10^3/uL (0.0-0.7) Basophils # (Auto) 0.0 x10^3/uL (0.0-0.2) Prothrombin Time 13.0 SEC (11.7-14.0) Prothromb Time International Ratio 1.0 (0.8-1.1) BUN/Creatinine Ratio 24 (6-20) Magnesium Level 1.8 mg/dL (1.8-2.4) Total Bilirubin 0.4 mg/dL (0.2-1.0) Aspartate Amino Transf (AST/SGOT) 61 U/L (15-37) Alanine Aminotransferase (ALT/SGPT) 58 U/L (16-63) Alkaline Phosphatase 225 U/L (46-116) Total Protein 5.5 g/dL (6.4-8.2) Albumin 1.3 g/dL (3.4-5.0) Albumin/Globulin Ratio 0.3 (1.0-1.7) Triglycerides Level 342 mg/dL (0-150) O2 Saturation 96 % (92-99) Arterial Blood pH 7.43 (7.35-7.45) Arterial Blood pCO2 at Patient Temp 53 mmHg (35-46) Arterial Blood pO2 at Patient Temp 91 mmHg (65-108) Arterial Blood HCO3 35 mmol/L (21-28) Arterial Blood Base Excess 9 mmol/L (-3-3) FiO2 40 Test 09/15/21 11:51 09/15/21 17:42 09/16/21 05:40 09/16/21 08:15 Glucose (Fingerstick) 119 mg/dL (70-99) 101 mg/dL (70-99) White Blood Count 6.3 x10^3/uL (4.0-11.0) Red Blood Count 2.58 x10^6/uL (4.30-5.70) Hemoglobin 7.6 g/dL (13.0-17.5) Hematocrit 22.9 % (39.0-53.0) Mean Corpuscular Volume 89 fL (79-100) Mean Corpuscular Hemoglobin 30 pg (25-35) Mean Corpuscular Hemoglobin Concent 33 g/dL (31-37) Red Cell Distribution Width 15.7 % (11.5-14.5) Platelet Count 101 x10^3/uL (140-400) Sodium Level 137 mmol/L (136-145) Potassium Level 3.7 mmol/L (3.5-5.1) Chloride Level 97 mmol/L (98-107) Carbon Dioxide Level 34 mmol/L (21-32) Anion Gap 6 (6-14) Blood Urea Nitrogen 14 mg/dL (8-26) Creatinine 0.7 mg/dL (0.7-1.3) Estimated GFR (Cockcroft-Gault) 113.9 Glucose Level 112 mg/dL (70-99) Calcium Level 8.5 mg/dL (8.5-10.1) O2 Saturation 97 % (92-99) Arterial Blood pH 7.41 (7.35-7.45) Arterial Blood pCO2 at Patient Temp 54 mmHg (35-46) Arterial Blood pO2 at Patient Temp 97 mmHg (65-108) Arterial Blood HCO3 33 mmol/L (21-28) Arterial Blood Base Excess 8 mmol/L (-3-3) FiO2 40% ac 22 400 5 Laboratory Tests Test 09/15/21 11:51 09/15/21 17:42 3/6/22 05:40 09/16/21 08:15 Glucose (Fingerstick) 119 mg/dL (70-99) 101 mg/dL (70-99) White Blood Count 6.3 x10^3/uL (4.0-11.0) Red Blood Count 2.58 x10^6/uL (4.30-5.70) Hemoglobin 7.6 g/dL (13.0-17.5) Hematocrit 22.9 % (39.0-53.0) Mean Corpuscular Volume 89 fL (79-100) Mean Corpuscular Hemoglobin 30 pg (25-35) Mean Corpuscular Hemoglobin Concent 33 g/dL (31-37) Red Cell Distribution Width 15.7 % (11.5-14.5) Platelet Count 101 x10^3/uL (140-400) Sodium Level 137 mmol/L (136-145) Potassium Level 3.7 mmol/L (3.5-5.1) Chloride Level 97 mmol/L (98-107) Carbon Dioxide Level 34 mmol/L (21-32) Anion Gap 6 (6-14) Blood Urea Nitrogen 14 mg/dL (8-26) Creatinine 0.7 mg/dL (0.7-1.3) Estimated GFR (Cockcroft-Gault) 113.9 Glucose Level 112 mg/dL (70-99) Calcium Level 8.5 mg/dL (8.5-10.1) O2 Saturation 97 % (92-99) Arterial Blood pH 7.41 (7.35-7.45) Arterial Blood pCO2 at Patient Temp 54 mmHg (35-46) Arterial Blood pO2 at Patient Temp 97 mmHg (65-108) Arterial Blood HCO3 33 mmol/L (21-28) Arterial Blood Base Excess 8 mmol/L (-3-3) FiO2 40% ac 22 400 5 Comments Chest x-ray reviewed 09/12/2021. Diffuse bilateral interstitial infiltrates. Increased volume loss left lower lo be. CT chest abdomen and pelvis reviewed. Dated 09/10/2021 Impression: 1. Left lower lobe airspace consolidation superimposed on diffuse groundglass opacity with emphysematous and fibrotic change. Findings suspected to represent multifocal infectious process. 2. Infrarenal aortic aneurysm measuring 3.4 cm diameter. 3. Distended gallbladder without wall thickening. Correlate for right upper quadrant symptoms, consider acalculous cholecystitis in the setting of prolonged illness. Impression . 1. Acute hypoxic respiratory failure secondary to COVID-19 pneumonia, acute respiratory distress syndrome and possible underlying fibrosis and emphysema., Extubated 08/20, reintubated 08/23 status post CODE BLUE/semi-CODE BLUE on 09/05. Status post tracheostomy 09/13/[address] chest. Reviewed dated 09/10/2021. Left lower lobe consolidation versus atelectasis. Evidence of possible mild fibrosis. There is evidence of pneumatoceles related to Covid. 3. New sepsis. Continues to have fever. White cell count trending down. CT chest with left lower lobe consolidation, doubt the source of fever. CT abdomen with acalculous cholecystitis. Could be the source. 4. Suspected underlying severe chronic obstructive pulmonary disease. 5. COVID-19 viral pneumonia.--- Covid recovered 6. Abnormal chest x-ray with bilateral diffuse infiltrates related to COVID-19 viral pneumonia.--- Covid recovered 7. Patient reintubated 08/23, status post CODE BLUE 8. Abnormal x-ray from 08/15, possible ARDS, possible pulmonary edema, possible aspiration 9. ST elevation [place] status post intra-aortic balloon pump--08/23/2021 10. Emergent cardiac catheterization revealing 90% stenotic lesion 11. Echocardiogram revealing ejection fraction of 35 to 40% pulmonary artery pressure of 34 inferior septal wall hypokinesis 12. MRSA bacteremia, lines removed. 13. Necrotic toe left second, suspect related COVID 14. Anemia Cardiac catheterization 08/30 Due to large vessel size a decision was made to defer stenting at this time for continued medical therapy. After the patient is fully extubated and depending on symptoms could consider PCI. Conclusion 1. Recanalized right coronary artery with brisk blood flow. 2. Residual proximal 70% RCA stenosis with significant ectasia of the RCA measuring up to 6.25 mm. 3. Normal left ventricular filling pressures. Recommendations 1. Continue aspirin, Plavix and heparin drip. 2. Continue plans for extubation. 3. After patient is extubated and stabilized depending on symptoms we will consider high risk PCI with specialized MegaTron stent given the large vessel size. Plan . Updated 09/16 Continue present assist-control mode. Oxygen requirement has improved. Patient developed new sepsis , has clinically improved. Status post tracheostomy 09/13/2021 Off Versed. Not fully awake. We will wean fentanyl and assess for improvement in mental status. Off steroids Broad-spectrum antibiotics per ID. Leukocytosis is resolved. ABG noted Blood cultures negative. C. difficile negative I doubt left lower lobe atelectasis/consolidation is the etiology for marked leukocytosis. Acalculous cholecystitis could be the source. Follow GI recommendations. Discussed with RN RT Discussed with at the bedside today. Explained to her that patient will be transferred next week to LTAC. PEG will be placed next week prior to transfer Updated 09/15 Continue present assist-control mode. Oxygen requirement has improved. Patient developed new sepsis , has clinically improved. Status post tracheostomy 09/13/2021 Will wean off sedation and start weaning in the next 24 hours. Off steroids Broad-spectrum antibiotics per ID. Leukocytosis is resolved. ABG noted Blood cultures negative. C. difficile negative I doubt left lower lobe atelectasis/consolidation is the etiology for marked leukocytosis. Acalculous cholecystitis could be the source. Follow GI recommendations. Discussed with RN RT Discussed with surgery Dr. Miller Discussed with in detail. Explained to her that patient will be transferred next week to LTAC. PEG will be placed next week prior to transfer Updated 09/14 Continue present assist-control mode. Oxygen requirement has improved. Patient developed new sepsis , has clinically improved. Status post tracheostomy 09/13/2021 Will wean off sedation and start weaning in the next 24 hours. Off steroids Broad-spectrum antibiotics per ID. Leukocytosis is resolved. ABG noted Blood cultures negative. C. difficile negative I doubt left lower lobe atelectasis/consolidation is the etiology for marked leukocytosis. Acalculous cholecystitis could be the source. Follow GI recommendations. Discussed with RN RT Discussed with surgery Dr. Miller Discussed with in detail. Explained to her that patient will be transferred next week to LTAC. PEG will be placed next week prior to transfer MICHELLE KNOWLES MD Sep 16, 2021 09:32
[2021-09-16] MEDS: ASPIRIN CHEWABLE 81 MG TABLET. PO SCH (09:46)
[2021-09-16] MEDS: DAPTOmycin (GENERIC) IVPB 550 MG in IV NORMAL SALINE 50ML 50 ML IV SCH (09:46)
[2021-09-16] MEDS: AMIODARONE HCL 200 MG TABLET. PO SCH (09:46)
[2021-09-16] MEDS: PANTOPRAZOLE IV PUSH 40 MG VIAL. IVP SCH ×2 (09:47→17:20)
[2021-09-16] MEDS: levETIRAcetam 500 MG/5 ML ORAL SOLUTION. PEG SCH ×2 (09:47→20:23)
--- NOTE | 2021-09-16 12:30 | PDOC ---
Infectious Disease Note Subjective: Subjective Patient is sedated on the ventilator Vital Signs: Vital Signs Vital Signs Date Time Temp Pulse Resp B/P (MAP) Pulse Ox O2 Delivery O2 Flow Rate FiO2 09/16/21 11:59 100 Ventilator 09/16/21 11:00 74 22 99/62 09/16/21 08:00 98.8 98.8 Physical Exam: PHYSICAL EXAM GENERAL: Intubated through trach HEENT: No conjunctival petechia. OGT present Neck trach present LUNGS: Coarse breath sounds in the bases, otherwise clear. HEART: S1, S2, irregular. no murmurs. ABDOMEN: Soft, nontender, nondistended. Bowel sounds present. GENITOURINARY: Berumen in place. EXTREMITIES: Present no cyanosis. Right groin catheter removed, Right upper extremity PICC line placed on 08/23/2021.Lt 2nd digit black DERMATOLOGIC: Warm, dry, no generalized rash. NEUROLOGIC: Unable to assess. Medications: Inpatient Meds: Medications reviewed. Labs: Lab Laboratory Tests Test 09/15/21 17:42 09/16/21 05:40 09/16/21 08:15 Glucose (Fingerstick) 101 mg/dL (70-99) White Blood Count 6.3 x10^3/uL (4.0-11.0) Red Blood Count 2.58 x10^6/uL (4.30-5.70) Hemoglobin 7.6 g/dL (13.0-17.5) Hematocrit 22.9 % (39.0-53.0) Mean Corpuscular Volume 89 fL (79-100) Mean Corpuscular Hemoglobin 30 pg (25-35) Mean Corpuscular Hemoglobin Concent 33 g/dL (31-37) Red Cell Distribution Width 15.7 % (11.5-14.5) Platelet Count 101 x10^3/uL (140-400) Sodium Level 137 mmol/L (136-145) Potassium Level 3.7 mmol/L (3.5-5.1) Chloride Level 97 mmol/L (98-107) Carbon Dioxide Level 34 mmol/L (21-32) Anion Gap 6 (6-14) Blood Urea Nitrogen 14 mg/dL (8-26) Creatinine 0.7 mg/dL (0.7-1.3) Estimated GFR (Cockcroft-Gault) 113.9 Glucose Level 112 mg/dL (70-99) Calcium Level 8.5 mg/dL (8.5-10.1) O2 Saturation 97 % (92-99) Arterial Blood pH 7.41 (7.35-7.45) Arterial Blood pCO2 at Patient Temp 54 mmHg (35-46) Arterial Blood pO2 at Patient Temp 97 mmHg (65-108) Arterial Blood HCO3 33 mmol/L (21-28) Arterial Blood Base Excess 8 mmol/L (-3-3) FiO2 40% ac 22 400 5 Micro PATIENT: JAYY JEFFRIES ACCOUNT: [id number] : 1955 LOCATION: [facility] ICU AGE: 65 SEX: M EXAM STATUS: ADM IN ORD. PHYSICIAN: SOFIA LOWERY MD REASON: Leukocytosis PROCEDURE: CT CHEST ABDOMEN PELVIS WO CT CHEST_ABDOMEN_ AND PELVIS WITHOUT CONTRAST History: Leukocytosis. Comparison: CTA chest 07/29/2021. Technique: CT of the chest, abdomen and pelvis with intravenous contrast. Findings: Chest: Devices: Endotracheal tube terminates in the upper thoracic trachea. Right upper extremity PICC terminates at the cavoatrial junction. Gastric tube terminates within the stomach. Pulmonary arteries: Unremarkable. Aorta and great vessels: No aneurysm of the aortic arch or thoracic aorta is seen. Mild atherosclerotic calcification. Heart: The heart is normal in size. There is no pericardial effusion. Moderate to heavy coronary artery calcification. Thyroid: No significant abnormalities. Mediastinum and akua: No mediastinal masses or adenopathy is seen. Esophagus: The visualized esophagus is normal. Airways, Lungs, Pleura: Moderate emphysematous change and mild subpleural fibrotic change. Left lower lobe airspace consolidation. Diffuse bilateral groundglass opacity and prominence of the interlobular septa Soft tissue and osseous: No acute findings. Abdomen/Pelvis: General abdomen: No ascites. No free air. Liver : Normal in size and attenuation. No masses seen. Gallbladder/Biliary Tree: Distended gallbladder without stones or wall thickening. No intrahepatic or extrahepatic biliary ductal dilatation. Pancreas: Normal. Spleen: Normal in size and attenuation. Adrenal glands: Normal. Kidneys: Bilateral perinephric fat stranding. No nephrolithiasis or hydronephrosis. No renal masses identified. Gastrointestinal: Stomach is decompressed by a gastric tube. Unremarkable small bowel. Normal appendix. No colonic wall thickening or pericolonic inflammatory changes. Indwelling rectal tube. Lymph nodes: No lymphadenopathy. Vessels: Fusiform infrarenal aortic aneurysm measuring 3.4 cm diameter by approximately 4 cm length. Pelvic Organs: Unremarkable reproductive organs. No pelvic masses. Bladder is decompressed by Berumen catheter. Soft tissues: Minimal anasarca. Bones: No acute or aggressive lesions. Impression: 1. Left lower lobe airspace consolidation superimposed on diffuse groundglass opacity with emphysematous and fibrotic change. Findings suspected to represent multifocal infectious process. 2. Infrarenal aortic aneurysm measuring 3.4 cm diameter. 3. Distended gallbladder without wall thickening. Correlate for right upper quadrant symptoms, consider acalculous cholecystitis in the setting of prolonged illness. Objective: Assessment: Fever resolved MRSE Bacterermia 08/22/2021.Central line was pulled out Acute hypoxic respiratory failure. COVID-19 pneumonia. Chronic obstructive pulmonary disease with possible underlying pulmonary fibrosis, aspiration pneumonia. Status post code atrial fibrillation with rapid ventricular response, ventricular fibrillation, status post defibrillation, epinephrine, bicarbonate drip, status post cardiac catheterization. IABP placement. Severe protein-calorie malnutrition. Abnormal liver function tests, likely shock liver.GB distention on CT A/P Anemia. Encephalopathy likely anoxic .Electrolyte abn Leucocytosis on steroids, also could be worsening from Bleeds epistaxis now with leukemoid reaction. CT head, chest, abdomen pelvis nonrevealing, Black digit of Lt 2nd toe could be COVID C. difficile negative on 09/05/2021 CT A/P Distended gallbladder without wall thickening. U/S neg for cholecystitis Plan: Plan of Care Cont Dapto , meropenem,micafungin WBC improved CT C/A/P 09/10 reviewed, GB distended,US neg for cholecystitis C. 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
[2021-09-16] MEDS: MICAFUNGIN 100 MG in IV DEXTROSE 5% 100ML 100 ML IV SCH (15:11)
[2021-09-16] MEDS: ATORVASTATIN CALCIUM 40 MG TABLET. PO SCH (20:22)
[2021-09-17] VITALS (25 sets, daily range): BP systolic 99–166; BP diastolic 58–111
[2021-09-17] MEDS: MEROPENEM 500 MG in IV NORMAL SALINE 50ML 50 ML IV SCH ×4 (05:21→23:44)
[2021-09-17] MEDS ORDERED: IV RINGERS,LACTATED 1000ML 1,000 ML IV SCH (07:00)
[2021-09-17 07:05] LABS: CALCIUM 8.6 mg/dL (8.5-10.1); CREATININE 0.7 mg/dL (0.7-1.3); GFR 113.9; POTASSIUM 3.4 mmol/L (3.5-5.1)
[2021-09-17] MEDS: ASPIRIN CHEWABLE 81 MG TABLET. PO SCH (08:13)
[2021-09-17] MEDS: AMIODARONE HCL 200 MG TABLET. PO SCH (08:14)
[2021-09-17] MEDS: levETIRAcetam 500 MG/5 ML ORAL SOLUTION. PEG SCH ×2 (08:14→20:47)
[2021-09-17] MEDS: PANTOPRAZOLE IV PUSH 40 MG VIAL. IVP SCH ×2 (08:14→17:40)
--- NOTE | 2021-09-17 08:58 | PDOC ---
PROGRESS NOTES Date of Service DATE: 09/17/21 TIME: 08:57 Assessment Anoxic encephalopathy, CODE BLUE, 08/23, in the setting of Covid pneumonia with respiratory failure, hyponatremia, atrial fibrillation, multiorgan damage, cardiogenic as well as septic shock He is on levetiracetam for seizures Status-post tracheostomy on 09/13 Plan Will follow at intervals Discussed with significant other Subjective None Objective Vital Signs Date Time Temp Pulse Resp B/P (MAP) Pulse Ox O2 Delivery O2 Flow Rate FiO2 09/17/21 08:42 100 Ventilator 09/17/21 08:14 79 141/74 09/17/21 06:00 22 09/17/21 04:00 98.6 98.6 Intake and Output 09/17/21 07:00 Intake Total 3652 ml Output Total 2125 ml Balance 1527 ml IV Total 1319 ml Tube Feeding 2053 ml Other 280 ml Output Urine Total 2125 ml Gastric Drainage Total 0 ml PHYSICAL EXAM Sedated on vent PERRL. No spontaneous extraocular movement CN: no focal findings. Muscle tone: normal. Muscle strength: Not tested DTR: Not testable Plantar reflex: Silent Gait: not examined in bed. Sensory exam: Not testable Cerebellar: Not testable Review of Relevant I have reviewed the following items shey (where applicable) has been applied. Labs Laboratory Tests Test 09/15/21 11:51 09/15/21 17:42 09/16/21 05:40 09/16/21 08:15 Glucose (Fingerstick) 119 mg/dL (70-99) 101 mg/dL (70-99) White Blood Count 6.3 x10^3/uL (4.0-11.0) Red Blood Count 2.58 x10^6/uL (4.30-5.70) Hemoglobin 7.6 g/dL (13.0-17.5) Hematocrit 22.9 % (39.0-53.0) Mean Corpuscular Volume 89 fL (79-100) Mean Corpuscular Hemoglobin 30 pg (25-35) Mean Corpuscular Hemoglobin Concent 33 g/dL (31-37) Red Cell Distribution Width 15.7 % (11.5-14.5) Platelet Count 101 x10^3/uL (140-400) Sodium Level 137 mmol/L (136-145) Potassium Level 3.7 mmol/L (3.5-5.1) Chloride Level 97 mmol/L (98-107) Carbon Dioxide Level 34 mmol/L (21-32) Anion Gap 6 (6-14) Blood Urea Nitrogen 14 mg/dL (8-26) Creatinine 0.7 mg/dL (0.7-1.3) Estimated GFR (Cockcroft-Gault) 113.9 Glucose Level 112 mg/dL (70-99) Calcium Level 8.5 mg/dL (8.5-10.1) O2 Saturation 97 % (92-99) Arterial Blood pH 7.41 (7.35-7.45) Arterial Blood pCO2 at Patient Temp 54 mmHg (35-46) Arterial Blood pO2 at Patient Temp 97 mmHg (65-108) Arterial Blood HCO3 33 mmol/L (21-28) Arterial Blood Base Excess 8 mmol/L (-3-3) FiO2 40% ac 22 400 5 Test 09/16/21 14:10 09/17/21 06:28 09/17/21 08:30 Hemoglobin 7.2 g/dL (13.0-17.5) 7.5 g/dL (13.0-17.5) Prothrombin Time 13.0 SEC (11.7-14.0) Prothromb Time International Ratio 1.0 (0.8-1.1) Sodium Level 140 mmol/L (136-145) Potassium Level 3.4 mmol/L (3.5-5.1) Chloride Level 100 mmol/L (98-107) Carbon Dioxide Level 36 mmol/L (21-32) Anion Gap 4 (6-14) Blood Urea Nitrogen 13 mg/dL (8-26) Creatinine 0.7 mg/dL (0.7-1.3) Estimated GFR (Cockcroft-Gault) 113.9 Glucose Level 123 mg/dL (70-99) Calcium Level 8.6 mg/dL (8.5-10.1) Laboratory Tests Test 09/16/21 14:10 09/17/21 06:28 09/17/21 08:30 Hemoglobin 7.2 g/dL (13.0-17.5) 7.5 g/dL (13.0-17.5) Prothrombin Time 13.0 SEC (11.7-14.0) Prothromb Time International Ratio 1.0 (0.8-1.1) Sodium Level 140 mmol/L (136-145) Potassium Level 3.4 mmol/L (3.5-5.1) Chloride Level 100 mmol/L (98-107) Carbon Dioxide Level 36 mmol/L (21-32) Anion Gap 4 (6-14) Blood Urea Nitrogen 13 mg/dL (8-26) Creatinine 0.7 mg/dL (0.7-1.3) Estimated GFR (Cockcroft-Gault) 113.9 Glucose Level 123 mg/dL (70-99) Calcium Level 8.6 mg/dL (8.5-10.1) Microbiology 09/05/21 Urine Culture - Final, Complete 09/05/21 Blood Culture - Final, Complete NO GROWTH AFTER 5 DAYS 08/23/21 Respiratory Culture Gram Stain - Final, Complete 08/23/21 Respiratory Culture - Final, Complete Medications Current Medications Dexamethasone Sodium Phosphate (Decadron) 6 mg DAILY IVP Last administered on 08/10/21at 08:29; Start 08/01/21 at 09:00; Stop 08/10/21 at 09:01; Status DC Heparin Sodium (Porcine) (Heparin Sodium) 5,000 unit Q8HRS SQ Last administered on 08/20/21at 05:41; Start 07/31/21 at 14:00; Stop 08/20/21 at 08:37; Status DC Famotidine (Pepcid Vial) 20 mg BID IVP Last administered on 09/10/21at 08:07; Start 07/31/21 at 14:00; Stop 09/10/21 at 12:40; Status DC Fentanyl Citrate 30 ml @ 2.5 mls/hr CONT PRN IV SEE PROTOCOL Last administered on 07/31/21at 12:49; Start 07/31/21 at 12:15; Stop 07/31/21 at 16:19; Status DC Midazolam HCl 100 ml @ 1 mls/hr CONT PRN IV SEE PROTOCOL Last administered on 09/14/21at 20:48; Start 07/31/21 at 12:15 Propofol 100 ml @ 3.45 mls/hr CONT PRN IV PER PROTOCOL Last administered on 09/16/21at 23:37; Start 07/31/21 at 12:15 Vecuronium [place] (Norcuron Bolus) 6 mg PRN 1X PRN IV VENT INDUCTION; Start 07/31/21 at 12:15; Stop 08/01/21 at 12:14; Status DC Glycerin/ Hypromellose/ Polyethylene (Artificial Tears) 1 drop PRN Q1HR PRN OU DRY EYE; Start 07/31/21 at 12:15 Dexmedetomidine HCl 400 mcg/ Sodium Chloride 100 ml @ 0 mls/hr CONT PRN IV PER PROTOCOL Last administered on 08/17/21at 12:55; Start 07/31/21 at 12:15 Midazolam HCl (Versed) 5 mg PRN 1X PRN IVP VENT INDUCTION; Start 07/31/21 at 12:15; Stop 08/01/21 at 12:14; Status DC Sodium Chloride 500 ml @ 500 mls/hr 1X PRN PRN IV SEE COMMENTS Last administered on 09/10/21at 17:16; Start 07/31/21 at 12:15 Atropine Sulfate (ATROPINE 0.5mg SYRINGE) 0.5 mg PRN Q5MIN PRN IV SEE COMMENTS; Start 07/31/21 at 12:15 Famotidine (Pepcid Vial) 20 mg BID IVP ; Start 07/31/21 at 21:00; Status UNV Piperacillin Sod/ Tazobactam Sod (Zosyn Per Pharmacy) 1 each PRN DAILY PRN MC SEE COMMENTS; Start 07/31/21 at 15:15; Stop 08/08/21 at 12:29; Status DC Piperacillin Sod/ Tazobactam Sod 3.375 gm/Sodium Chloride 50 ml @ 100 mls/hr Q6HRS IV Last administered on 08/07/21at 11:20; Start 07/31/21 at 18:00; Stop 08/07/21 at 17:59; Status DC Fentanyl Citrate 55 ml @ 1 mls/hr CONT PRN IV SEE PROTOCOL Last administered on 09/15/21at 21:12; Start 07/31/21 at 15:45 Insulin Human Lispro (HumaLOG) 0-7 UNITS Q6HRS SQ ; Start 08/02/21 at 06:00; Stop 08/07/21 at 08:09; Status DC Dextrose (Dextrose 50%-Water Syringe) 12.5 gm PRN Q15MIN PRN IV SEE COMMENTS; Start 08/01/21 at 23:00 Vecuronium [place] (Norcuron Bolus) 6 mg PRN Q6HRS PRN IV VENTILATOR COMPLIANCE Last administered on 09/10/21at 05:33; Start 08/06/21 at 13:45 Vecuronium [place] (Norcuron Bolus) 10 mg STK-MED ONCE IV ; Start 08/06/21 at 13:34; Stop 08/07/21 at 13:38; Status DC Sterile Water (WATER for RESP) 1,000 ml CONT PRN INH VIA VAPOTHERM DEVICE; Start 08/12/21 at 09:45; Status Cancel Dexamethasone Sodium Phosphate (Decadron) 6 mg DAILY IVP ; Start 08/17/21 at 09:00; Stop 08/16/21 at 13:31; Status DC Dexamethasone Sodium Phosphate (Decadron) 10 mg 1X ONCE IV ; Start 08/16/21 at 12:30; Stop 08/16/21 at 13:31; Status DC Acetaminophen (Tylenol) 650 mg PRN Q6HRS PRN PEG MILD PAIN / TEMP > 100.3'F Last administered on 09/14/21at 00:36; Start 08/17/21 at 00:15 Heparin Sodium (Porcine) (Heparin Sodium) 5,000 unit Q8HRS SQ Last administered on 08/23/21at 05:39; Start 08/21/21 at 14:00; Stop 08/23/21 at 18:33; Status DC Fentanyl Citrate (Fentanyl 2ml Vial) 25 mcg PRN Q5MIN PRN IVP MILD PAIN 1-3; Start 08/21/21 at 06:00; Stop 08/22/21 at 05:59; Status DC Fentanyl Citrate (Fentanyl 2ml Vial) 50 mcg PRN Q5MIN PRN IVP MODERATE PAIN 4- 6; Start 08/21/21 at 06:00; Stop 08/22/21 at 05:59; Status DC Morphine Sulfate (Morphine Sulfate) 1 mg PRN Q10MIN PRN IVP SEVERE PAIN 7-10; Start 08/21/21 at 06:00; Stop 08/22/21 at 05:59; Status DC Ringer's Solution 1,000 ml @ 30 mls/hr Q24H IV ; Start 08/21/21 at 06:00; Stop 08/21/21 at 17:59; Status DC Hydromorphone HCl (Dilaudid) 0.5 mg PRN Q10MIN PRN IVP SEVERE PAIN 7-10, 2nd CHOICE; Start 08/21/21 at 06:00; Stop 08/22/21 at 05:59; Status DC Prochlorperazine Edisylate (Compazine) 5 mg PACU PRN PRN IVP NAUSEA, MRX1; Start 08/21/21 at 06:00; Stop 08/22/21 at 05:59; Status DC Haloperidol Lactate (Haldol Inj) 5 mg PRN Q8HRS PRN IVP AGITATION; Start 08/22/21 at 10:45; Stop 08/22/21 at 10:45; Status DC Haloperidol Lactate (Haldol Inj) 5 mg Q8HRS IVP Last administered on 08/23/21at 05:38; Start 08/22/21 at 11:00; Stop 08/24/21 at 13:52; Status DC Acetaminophen (Tylenol Supp) 650 mg Q4H ONCE PA Last administered on 08/22/21at 11:45; Start 08/22/21 at 11:30; Stop 08/22/21 at 11:31; Status DC Vancomycin HCl (Vanco Per Pharmacy) 1 each PRN DAILY PRN MC SEE COMMENTS Last administered on 08/23/21at 12:21; Start 08/22/21 at 11:30; Stop 08/24/21 at 09:14; Status DC Piperacillin Sod/ Tazobactam Sod (Zosyn Per Pharmacy) 1 each PRN DAILY PRN MC SEE COMMENTS; Start 08/22/21 at 11:30; Stop 09/10/21 at 11:37; Status DC Piperacillin Sod/ Tazobactam Sod 4.5 gm/Dextrose 100 ml @ 200 mls/hr Q6HRS IV Last administered on 09/10/21at 05:32; Start 08/22/21 at 12:00; Stop 09/10/21 at 08:13; Status DC Vancomycin HCl 2 gm/Sodium Chloride 500 ml @ 250 mls/hr 1X ONCE IV Last administered on 08/22/21at 12:34; Start 08/22/21 at 13:00; Stop 08/22/21 at 14:59; Status DC Acetaminophen (Tylenol Supp) 650 mg PRN Q4HRS PRN PA MILD PAIN / TEMP > 100.3'F Last administered on 08/22/21at 23:32; Start 08/22/21 at 11:45 Dextrose/Lactated Ringer's 1,000 ml @ 80 mls/hr [id number] IV Last administered on 08/31/21at 21:16; Start 08/22/21 at 12:45; Stop 09/01/21 at 12:01; Status DC Vancomycin HCl 1 gm/Sodium Chloride 250 ml @ 250 mls/hr Q8H IV Last administered on 08/24/21at 04:00; Start 08/22/21 at 20:00; Stop 08/24/21 at 09:14; Status DC Vancomycin HCl (Vancomycin Trough Level) 1 each 1X ONCE MC ; Start 08/23/21 at 11:30; Stop 08/24/21 at 09:14; Status DC Etomidate (Amidate) 20 mg STK-MED ONCE IV ; Start 08/23/21 at 11:25; Stop 08/23/21 at 11:25; Status DC Succinylcholine Chloride (Anectine) 200 mg STK-MED ONCE .ROUTE ; Start 08/23/21 at 11:25; Stop 08/23/21 at 11:26; Status DC Etomidate (Amidate) 20 mg 1X ONCE IV Last administered on 08/23/21at 12:21; Start 08/23/21 at 12:15; Stop 08/23/21 at 12:16; Status DC Succinylcholine Chloride (Anectine) 100 mg 1X ONCE IV Last administered on 08/23/21at 12:21; Start 08/23/21 at 12:15; Stop 08/23/21 at 12:16; Status DC Methylprednisolone Sodium Succinate (SOLU-Medrol 125MG VIAL) 125 mg Q8HRS IV Last administered on 09/01/21at 06:08; Start 08/23/21 at 14:00; Stop 09/01/21 at 12:01; Status DC Furosemide (Lasix) 40 mg 1X ONCE IVP Last administered on 08/23/21at 13:19; Start 08/23/21 at 12:45; Stop 08/23/21 at 12:56; Status DC Furosemide (Lasix) 40 mg DAILY IVP Last administered on 08/24/21at 07:24; Start 08/24/21 at 09:00; Stop 08/24/21 at 11:24; Status DC Digoxin (Lanoxin) 500 mcg 1X ONCE IV Last administered on 08/23/21at 15:16; Start 08/23/21 at 15:30; Stop 08/23/21 at 15:31; Status DC Amiodarone HCl 150 mg/Dextrose 103 ml @ 600 mls/hr 1X ONCE IV ; Start 08/23/21 at 16:00; Stop 08/23/21 at 16:10; Status DC Amiodarone HCl 450 mg/Dextrose 259 ml @ 33 mls/hr CONT PRN IV SEE I/O RECORD Last administered on 08/24/21at 01:22; Start 08/23/21 at 16:00; Stop 08/24/21 at 15:59; Status DC Iodixanol (Visipaque 320) 100 ml STK-MED ONCE .ROUTE ; Start 08/23/21 at 16:00; Stop 08/23/21 at 16:00; Status DC Lidocaine HCl (Lidocaine 1% 20ml Vial) 20 ml STK-MED ONCE .ROUTE ; Start 08/23/21 at 16:00; Stop 08/23/21 at 16:00; Status DC Heparin Sodium/ Sodium Chloride 1,500 ml @ As Directed STK-MED ONCE .ROUTE ; Start 08/23/21 at 16:00; Stop 08/23/21 at 16:00; Status DC Amiodarone HCl (Cordarone) 150 mg STK-MED ONCE .ROUTE ; Start 08/23/21 at 16:01; Stop 08/23/21 at 16:01; Status DC Amiodarone HCl (Cordarone) 150 mg 1X ONCE IVP Last administered on 08/23/21at 16:23; Start 08/23/21 at 16:15; Stop 08/23/21 at 16:16; Status DC Aspirin (Aspirin Chewable) 324 mg 1X ONCE PO Last administered on 08/23/21at 16:07; Start 08/23/21 at 16:15; Stop 08/23/21 at 16:16; Status DC Aspirin (Aspirin Chewable) 81 mg STK-MED ONCE .ROUTE ; Start 08/23/21 at 16:06; Stop 08/23/21 at 16:06; Status DC Heparin Sodium (Porcine) (Heparin Sodium) 10,000 unit STK-MED ONCE .ROUTE ; Start 08/23/21 at 16:23; Stop 08/23/21 at 16:24; Status DC Verapamil HCl (Verapamil) 5 mg STK-MED ONCE .ROUTE ; Start 08/23/21 at 16:23; Stop 08/23/21 at 16:24; Status DC Nitroglycerin (Nitroglycerin) 200 mcg STK-MED ONCE .ROUTE ; Start 08/23/21 at 16:23; Stop 08/23/21 at 16:24; Status DC Aspirin (Aspirin Chewable) 81 mg DAILYWBKFT PO Last administered on 09/17/21at 08:13; Start 08/24/21 at 08:00 Phenylephrine HCl 50 mg/Sodium Chloride 255 ml @ 14.351 mls/ hr CONT PRN IV PER PROTOCOL Last administered on 08/23/21at 16:42; Start 08/23/21 at 16:45 Phenylephrine HCl (PHENYLEPHRINE in 0.9% NACL PF) 1 mg STK-MED ONCE IV ; Start 08/23/21 at 16:41; Stop 08/23/21 at 16:41; Status DC Heparin Sodium (Porcine) (Heparin Sodium) 10,000 unit STK-MED ONCE .ROUTE ; Start 08/23/21 at 16:47; Stop 08/23/21 at 16:47; Status DC Norepinephrine Bitartrate 8 mg/ Dextrose 258 ml @ 18.15 mls/ hr CONT PRN IV PER PROTOCOL Last administered on 09/14/21at 01:11; Start 08/23/21 at 17:00 Iodixanol (Visipaque 320) 100 ml STK-MED ONCE .ROUTE ; Start 08/23/21 at 17:07; Stop 08/23/21 at 17:07; Status DC Nitroglycerin (Nitroglycerin) 200 mcg 1X ONCE IART Last administered on 08/23/21at 16:35; Start 08/23/21 at 17:15; Stop 08/23/21 at 17:16; Status DC Verapamil HCl (Verapamil) 2.5 mg 1X ONCE IART Last administered on 08/23/21at 16:35; Start 08/23/21 at 17:15; Stop 08/23/21 at 17:16; Status DC Heparin Sodium (Porcine) (Heparin Sodium) 2,500 unit 1X ONCE IART Last administered on 08/23/21at 16:42; Start 08/23/21 at 17:15; Stop 08/23/21 at 17:16; Status DC Heparin Sodium/ Sodium Chloride (HEPARIN for ARTERIAL LINE FLUSH) 1,000 unit 1X ONCE IART Last administered on 08/23/21at 17:15; Start 08/23/21 at 17:15; Stop 08/23/21 at 17:16; Status DC Heparin Sodium/ Sodium Chloride (HEPARIN for ARTERIAL LINE FLUSH) 4,000 unit 1X ONCE IV Last administered on 08/23/21at 17:15; Start 08/23/21 at 17:15; Stop 08/23/21 at 17:16; Status DC Iodixanol (Visipaque 320) 100 ml 1X ONCE IART Last administered on 08/23/21at 17:15; Start 08/23/21 at 17:15; Stop 08/23/21 at 17:16; Status DC Heparin Sodium (Porcine) (Heparin Sodium) 5,000 unit 1X ONCE INT CAT Last administered on 08/23/21at 16:52; Start 08/23/21 at 17:15; Stop 08/23/21 at 17:16; Status DC Tirofiban/Sodium Chloride 250 ml @ As Directed STK-MED ONCE IV ; Start 08/23/21 at 17:18; Stop 08/23/21 at 17:18; Status DC Tirofiban/Sodium Chloride 250 ml @ 16.884 mls/ hr CONT PRN IV PER PROTOCOL Last administered on 08/23/21at 17:16; Start 08/23/21 at 17:45; Stop 08/24/21 at 11:44; Status DC Heparin Sodium (Porcine) (Heparin Sodium) 5,000 unit 1X ONCE IV Last administered on 08/23/21at 17:09; Start 08/23/21 at 18:30; Stop 08/23/21 at 18:31; Status DC Levetiracetam 100 ml @ 400 mls/hr Q12HR IV Last administered on 08/26/21at 11:29; Start 08/23/21 at 21:00; Stop 08/26/21 at 21:06; Status DC Heparin Sodium/ Dextrose 250 ml @ 11.256 mls/ hr CONT PRN IV PER PROTOCOL Last administered on 09/04/21at 05:21; Start 08/23/21 at 18:45; Stop 09/04/21 at 16:22; Status DC Heparin Sodium (Porcine) (Heparin Sodium) 2,350 unit PRN Q6HRS PRN IV FOR UFH LEVEL LESS THAN 0.2 Last administered on 08/27/21at 01:28; Start 08/23/21 at 18:45; Stop 09/04/21 at 16:22; Status DC Clopidogrel Bisulfate (Plavix) 600 mg 1X ONCE PO Last administered on 08/23/21at 22:06; Start 08/23/21 at 22:30; Stop 08/23/21 at 22:31; Status DC Potassium Chloride/Water 100 ml @ 100 mls/hr Q1H IV Last administered on 08/24/21at 02:00; Start 08/23/21 at 22:00; Stop 08/24/21 at 01:59; Status DC Daptomycin 520 mg/ Sodium Chloride 50 ml @ 100 mls/hr Q24H IV Last administered on 08/26/21at 12:57; Start 08/24/21 at 11:00; Stop 08/27/21 at 08:17; Status DC Linezolid (Zyvox) 600 mg BID PO Last administered on 09/01/21at 08:32; Start 08/24/21 at 10:00; Stop 09/01/21 at 09:30; Status DC Amiodarone HCl (Cordarone) 200 mg DAILY PO Last administered on 09/17/21at 08:14; Start 08/24/21 at 12:00 Furosemide (Lasix) 40 mg DAILY IVP Last administered on 09/04/21at 10:50; Start 08/25/21 at 09:00; Stop 09/05/21 at 17:31; Status DC Atorvastatin Calcium (Lipitor) 20 mg QHS PO Last administered on 08/26/21at 2 2:04; Start 08/24/21 at 21:00; Stop 08/27/21 at 13:59; Status DC Clopidogrel Bisulfate (Plavix) 75 mg 1X ONCE PO ; Start 08/24/21 at 11:30; Stop 08/24/21 at 11:31; Status UNV Clopidogrel Bisulfate (Plavix) 75 mg DAILYWBKFT PO Last administered on at 07:41; Start 08/24/21 at 12:00; Stop 09/13/21 at 13:53; Status DC Epinephrine HCl (EPINEPHrine SYRINGE) 1 mg STK-MED ONCE .ROUTE ; Start 08/23/21 at 17:00; Stop 08/24/21 at 12:21; Status DC Sodium Bicarbonate (Sodium Bicarb Adult 8.4% Syr) 50 meq STK-MED ONCE .ROUTE ; Start 08/23/21 at 17:00; Stop 08/24/21 at 12:21; Status DC Potassium Chloride/Water 100 ml @ 100 mls/hr Q1H IV Last administered on 08/25/21at 13:32; Start 08/25/21 at 10:00; Stop 08/25/21 at 12:59; Status DC Potassium Chloride/Water 100 ml @ 100 mls/hr Q1H IV Last administered on 08/26/21at 10:05; Start 08/26/21 at 09:00; Stop 08/26/21 at 11:59; Status DC Potassium Bicarbonate (Potassium Effervescent Tablet) 60 meq 1X ONCE PO Last administered on 08/26/21at 13:51; Start 08/26/21 at 10:30; Stop 08/26/21 at 10:31; Status DC Levetiracetam 500 mg/Dextrose 105 ml @ 100 mls/hr Q12HR IV Last administered on 08/28/21at 09:00; Start 08/26/21 at 21:30; Stop 08/28/21 at 12:27; Status DC Potassium Bicarbonate (Potassium Effervescent Tablet) 20 meq TID PO Last administered on 09/04/21at 21:00; Start 08/27/21 at 09:30; Stop 09/05/21 at 16:54; Status DC Losartan Potassium (Cozaar) 25 mg DAILY PO Last administered on 09/04/21at 10:08; Start 08/27/21 at 15:00; Stop 09/05/21 at 17:07; Status DC Spironolactone (Aldactone) 25 mg DAILY PO Last administered on 09/04/21at 13:00; Start 08/27/21 at 15:00; Stop 09/05/21 at 17:08; Status DC Atorvastatin Calcium (Lipitor) 40 mg QHS PO Last administered on 09/16/21at 20:22; Start 08/27/21 at 21:00 Atropine Sulfate (ATROPINE 1mg SYRINGE) 1 mg STK-MED ONCE .ROUTE ; Start 08/23/21 at 12:32; Stop 08/27/21 at 14:26; Status DC Levetiracetam 100 ml @ 100 mls/hr Q12HR IV ; Start 08/28/21 at 21:00; Status Cancel Levetiracetam (Keppra Oral Soln) 500 mg BID PEG Last administered on 09/17/21at 08:14; Start 08/28/21 at 21:00 Heparin Sodium (Porcine) (Heparin Sodium) 10,000 unit STK-MED ONCE .ROUTE ; Start 08/30/21 at 12:56; Stop 08/30/21 at 12:56; Status DC Verapamil HCl (Verapamil) 5 mg STK-MED ONCE .ROUTE ; Start 08/30/21 at 12:56; Stop 08/30/21 at 12:56; Status DC Nitroglycerin (Nitroglycerin) 200 mcg STK-MED ONCE .ROUTE ; Start 08/30/21 at 12:56; Stop 08/30/21 at 12:56; Status DC Iodixanol (Visipaque 320) 100 ml STK-MED ONCE .ROUTE ; Start 08/30/21 at 12:57; Stop 08/30/21 at 12:57; Status DC Lidocaine HCl (Xylocaine-Mpf 1% 2ml Vial) 2 ml STK-MED ONCE .ROUTE ; Start 08/30/21 at 12:57; Stop 08/30/21 at 12:57; Status DC Heparin Sodium/ Sodium Chloride 1,000 ml @ As Directed STK-MED ONCE .ROUTE ; Start 08/30/21 at 12:57; Stop 08/30/21 at 12:57; Status DC Nitroglycerin (Nitroglycerin) 200 mcg 1X ONCE IART Last administered on 08/30/21at 13:34; Start 08/30/21 at 13:00; Stop 08/30/21 at 13:04; Status DC Verapamil HCl (Verapamil) 2.5 mg 1X ONCE IART Last administered on 08/30/21at 13:34; Start 08/30/21 at 13:00; Stop 08/30/21 at 13:04; Status DC Heparin Sodium (Porcine) (Heparin Sodium) 2,500 unit 1X ONCE IART Last administered on 08/30/21at 13:34; Start 08/30/21 at 13:00; Stop 08/30/21 at 13:04; Status DC Heparin Sodium/ Sodium Chloride (HEPARIN for ARTERIAL LINE FLUSH) 1,000 unit 1X ONCE IART Last administered on 08/30/21at 13:00; Start 08/30/21 at 13:00; Stop 08/30/21 at 13:04; Status DC Heparin Sodium/ Sodium Chloride (HEPARIN for ARTERIAL LINE FLUSH) 1,000 unit 1X ONCE IART Last administered on 08/30/21at 13:00; Start 08/30/21 at 13:00; Stop 08/30/21 at 13:04; Status DC Iodixanol (Visipaque 320) 100 ml 1X ONCE IART Last administered on 08/30/21at 13:55; Start 08/30/21 at 13:00; Stop 08/30/21 at 13:04; Status DC Lidocaine HCl (Xylocaine-Mpf 1% 2ml Vial) 2 ml 1X ONCE INJ Last administered on 08/30/21at 13:33; Start 08/30/21 at 13:00; Stop 08/30/21 at 13:04; Status DC Info (CONTRAST GIVEN -- Rx MONITORING) 1 each PRN DAILY PRN MC SEE COMMENTS; Start 08/30/21 at 13:15; Stop 09/01/21 at 13:14; Status DC Alteplase, Recombinant (Cathflo For Central Catheter Clearance) 1 mg 1X ONCE INT CAT Last administered on 08/31/21at 12:11; Start 08/31/21 at 10:45; Stop 08/31/21 at 10:46; Status DC Methylprednisolone Sodium Succinate (SOLU-Medrol 125MG VIAL) 60 mg Q8HRS IV Last administered on 09/04/21at 06:02; Start 09/01/21 at 14:00; Stop 09/04/21 at 08:19; Status DC Methylprednisolone Sodium Succinate (SOLU-Medrol 40MG VIAL) 40 mg Q8HRS IV Last administered on 09/06/21at 05:37; Start 09/04/21 at 14:00; Stop 09/06/21 at 10:03; Status DC Fentanyl Citrate (Fentanyl 2ml Vial) 25 mcg PRN Q5MIN PRN IVP MILD PAIN 1-3; Start 09/05/21 at 06:00; Stop 09/06/21 at 05:59; Status DC Fentanyl Citrate (Fentanyl 2ml Vial) 50 mcg PRN Q5MIN PRN IVP MODERATE PAIN 4- 6; Start 09/05/21 at 06:00; Stop 09/06/21 at 05:59; Status DC Morphine Sulfate (Morphine Sulfate) 1 mg PRN Q10MIN PRN IVP SEVERE PAIN 7-10; Start 09/05/21 at 06:00; Stop 09/06/21 at 05:59; Status DC Ringer's Solution 1,000 ml @ 30 mls/hr Q24H IV ; Start 09/05/21 at 06:00; Stop 09/05/21 at 17:59; Status DC Hydromorphone HCl (Dilaudid) 0.5 mg PRN Q10MIN PRN IVP SEVERE PAIN 7-10, 2nd CHOICE; Start 09/05/21 at 06:00; Stop 09/06/21 at 05:59; Status DC Prochlorperazine Edisylate (Compazine) 5 mg PACU PRN PRN IVP NAUSEA, MRX1; Start 09/05/21 at 06:00; Stop 09/06/21 at 05:59; Status DC Metoprolol Tartrate (Lopressor) 25 mg BID PO Last administered on 09/04/21at 20:59; Start 09/04/21 at 21:00; Stop 09/05/21 at 17:31; Status DC Norepinephrine Bitartrate 8 mg/ Dextrose 258 ml @ 0 mls/hr CONT IV ; Start 09/05/21 at 09:30; Status UNV Sodium Chloride 500 ml @ 500 mls/hr 1X ONCE IV Last administered on 09/05/21at 08:00; Start 09/05/21 at 08:00; Stop 09/05/21 at 12:11; Status DC Heparin Sodium/ Dextrose 250 ml @ 11.484 mls/ hr CONT PRN IV PER PROTOCOL Last administered on 09/05/21at 15:53; Start 09/05/21 at 14:45; Stop 09/11/21 at 14:42; Status DC Heparin Sodium (Porcine) (Heparin Sodium) 2,400 unit PRN Q6HRS PRN IV FOR UFH LEVEL LESS THAN 0.2; Start 09/05/21 at 14:45; Stop 09/11/21 at 14:42; Status DC Linezolid/Dextrose 300 ml @ 300 mls/hr Q12HR IV Last administered on 09/15/21at 08:12; Start 09/05/21 at 21:00; Stop 09/15/21 at 12:54; Status DC Vancomycin HCl (Vancomycin Oral Solution) 125 mg [id number] PO ; Start 09/05/21 at 17:30; Stop 09/06/21 at 14:59; Status DC Epinephrine HCl (EPINEPHrine SYRINGE) 1 mg STK-MED ONCE .ROUTE ; Start 09/06/21 at 07:11; Stop 09/06/21 at 07:12; Status DC Digoxin (Lanoxin) 250 mcg 1X ONCE IV Last administered on 09/06/21at 08:39; Start 09/06/21 at 08:30; Stop 09/06/21 at 08:31; Status DC Methylprednisolone Sodium Succinate (SOLU-Medrol 40MG VIAL) 40 mg Q12H IV Last administered on 09/10/21at 08:07; Start 09/06/21 at 21:00; Stop 09/10/21 at 13:16; Status DC Epinephrine HCl (EPINEPHrine SYRINGE) 1 mg STK-MED ONCE .ROUTE ; Start 09/05/21 at 17:00; Stop 09/07/21 at 08:29; Status DC Meropenem 500 mg/ Sodium Chloride 50 ml @ 100 mls/hr Q6HRS IV Last administered on 09/17/21at 05:21; Start 09/10/21 at 12:00 Daptomycin 550 mg/ Sodium Chloride 50 ml @ 100 mls/hr Q24H IV Last administered on 09/16/21at 09:46; Start 09/10/21 at 09:00 Pantoprazole Sodium (PROTONIX VIAL for IV PUSH) 40 mg BIDAC IVP Last administered on 09/17/21at 08:14; Start 09/10/21 at 16:30 Potassium Bicarbonate (Potassium Effervescent Tablet) 40 meq 1X ONCE PEG Last administered on 09/11/21at 07:36; Start 09/11/21 at 07:15; Stop 09/11/21 at 07:22; Status DC Fentanyl Citrate (Fentanyl 2ml Vial) 25 mcg PRN Q5MIN PRN IVP MILD PAIN 1-3; Start 09/13/21 at 06:00; Stop 09/14/21 at 06:00; Status DC Fentanyl Citrate (Fentanyl 2ml Vial) 50 mcg PRN Q5MIN PRN IVP MODERATE PAIN 4-6; Start 09/13/21 at 06:00; Stop 09/14/21 at 06:00; Status DC Morphine Sulfate (Morphine Sulfate) 1 mg PRN Q10MIN PRN IVP SEVERE PAIN 7-10; Start 09/13/21 at 06:00; Stop 09/14/21 at 06:00; Status DC Ringer's Solution 1,000 ml @ 30 mls/hr Q24H IV ; Start 09/13/21 at 06:00; Stop 09/13/21 at 17:59; Status DC Hydromorphone HCl (Dilaudid) 0.5 mg PRN Q10MIN PRN IVP SEVERE PAIN 7-10, 2nd CH OICE; Start 09/13/21 at 06:00; Stop 09/14/21 at 06:00; Status DC Prochlorperazine Edisylate (Compazine) 5 mg PACU PRN PRN IVP NAUSEA, MRX1; Start 09/13/21 at 06:00; Stop 09/14/21 at 06:00; Status DC Micafungin Sodium 100 mg/Dextrose 100 ml @ 100 mls/hr Q24H IV Last administered on 09/16/21at 15:11; Start 09/12/21 at 14:00 Cellulose (Surgicel Fibrillar 1x2) 1 each STK-MED ONCE .ROUTE ; Start 09/13/21 at 09:46; Stop 09/13/21 at 09:47; Status DC Bupivacaine HCl/ Epinephrine Bitart (Sensorcaine-Epi 0.25%-1:024194 Mpf) 30 ml STK-MED ONCE .ROUTE ; Start 09/13/21 at 09:46; Stop 09/13/21 at 09:47; Status DC Fentanyl Citrate (Fentanyl 2ml Vial) 100 mcg STK-MED ONCE .ROUTE ; Start 09/13/21 at 11:04; Stop 09/13/21 at 11:04; Status DC Digoxin (Lanoxin) 500 mcg 1X ONCE IV Last administered on 09/13/21at 21:25; Start 09/13/21 at 21:15; Stop 09/13/21 at 21:16; Status DC Potassium Bicarbonate (Potassium Effervescent Tablet) 40 meq 1X ONCE PO Last administered on 09/14/21at 08:03; Start 09/14/21 at 07:00; Stop 09/14/21 at 07:01; Status DC Furosemide (Lasix) 40 mg 1X ONCE IVP Last administered on 09/14/21at 14:33; Start 09/14/21 at 14:00; Stop 09/14/21 at 14:01; Status DC Potassium Bicarbonate (Potassium Effervescent Tablet) 40 meq 1X ONCE PO Last administered on 09/14/21at 14:32; Start 09/14/21 at 14:45; Stop 09/14/21 at 14:46; Status DC Ringer's Solution 1,000 ml @ 50 mls/hr Q20H IV ; Start 09/17/21 at 07:00; Stop 09/17/21 at 18:59 Vitals/I & O Vital Sign - Last 24 Hours 09/16/21 09/16/21 09/16/21 09/16/21 09:00 09:46 09:46 10:00 Pulse 70 74 72 Resp B/P (MAP) 109/65 129/79 129/79 Pulse Ox 100 99 99 O2 Delivery Ventilator Ventilator Ventilator 09/16/21 09/16/21 09/16/21 09/16/21 11:00 11:59 12:00 12:00 Temp 99.6 99.6 Pulse 74 68 Resp B/P (MAP) 99/62 94/61 Pulse Ox 100 100 100 O2 Delivery Ventilator Ventilator Mechanical Ventilator Ventilator 09/16/21 09/16/21 09/16/21 09/16/21 13:00 14:00 15:00 15:28 Pulse 74 68 70 Resp B/P (MAP) 99/62 127/77 110/63 Pulse Ox 100 100 100 100 O2 Delivery Ventilator Ventilator Ventilator Ventilator 09/16/21 09/16/21 09/16/21 09/16/21 16:00 16:00 17:00 18:00 Temp 98.8 98.8 Pulse 68 68 70 Resp B/P (MAP) 111/67 117/83 108/63 Pulse Ox 100 100 100 O2 Delivery Ventilator Mechanical Ventilator Ventilator Ventilator 09/16/21 09/16/21 09/16/21 09/16/21 19:00 20:00 20:00 20:04 Temp 98.2 98.2 Pulse 66 67 Resp B/P (MAP) 99/58 101/65 Pulse Ox 100 100 100 O2 Delivery Ventilator Mechanical Ventilator Ventilator Ventilator 09/16/21 09/16/21 09/16/21 09/17/21 21:00 22:00 23:00 00:00 Temp 98.6 98.6 Pulse 70 68 67 69 Resp B/P (MAP) 114/67 101/64 103/64 111/65 Pulse Ox 100 100 100 100 O2 Delivery Ventilator Ventilator Ventilator Ventilator 09/17/21 09/17/21 09/17/21 09/17/21 00:00 00:12 01:00 02:00 Pulse 68 68 Resp B/P (MAP) 101/62 115/74 Pulse Ox 100 100 100 O2 Delivery Mechanical Ventilator Ventilator Ventilator Ventilator 09/17/21 09/17/21 09/17/21 09/17/21 03:00 04:00 04:00 04:06 Temp 98.6 98.6 Pulse 67 71 Resp B/P (MAP) 113/69 103/63 Pulse Ox 100 100 100 O2 Delivery Ventilator Ventilator Mechanical Ventilator Ventilator 09/17/21 09/17/21 09/17/21 09/17/21 05:00 06:00 08:14 08:42 Pulse 70 74 79 Resp B/P (MAP) 121/69 126/77 141/74 Pulse Ox 98 99 100 O2 Delivery Ventilator Ventilator Ventilator Intake and Output 09/16/21 09/16/21 09/17/21 15:00 23:00 07:00 Intake Total 380 ml 1749 ml 1523 ml Output Total 1020 ml 530 ml 575 ml Balance -640 ml 1219 ml 948 ml Justicifation of Admission Dx: Justifications for Admission: Justification of Admission Dx: N/A DEREK TELLEZ MD Sep 17, 2021 08:57
[2021-09-17 09:00] LABS: BASE EXCESS ABG 11 mmol/L (-3-3); HCO3 ABG 36 mmol/L (21-28); PCO2 ABG 51 mmHg (35-46); PO2 ABG 80 mmHg (65-108); SAT O2 ABG 95 % (92-99)
[2021-09-17 09:03] LABS: FIO2 ABG 35
--- NOTE | 2021-09-17 09:37 | PN ---
DATE: 09/17/2021 SUBJECTIVE: The patient is continued to be heavily sedated, on mechanical ventilation through tracheostomy tube. He is apparently scheduled for gastrostomy tube placement this morning. He is now n.p.o. PHYSICAL EXAMINATION: GENERAL: When I saw him, he looked well and was clearly in no apparent respiratory distress, pale, but no jaundice, cyanosis or thyromegaly. No jugular venous distention. No limb edema. VITAL SIGNS: His heart rate was 79, blood pressure was 141/74, temperature was 98.6, respiratory rate 22, and oxygen saturation was 100% on FiO2 of 35%. HEAD, EYES, EARS, NOSE, AND THROAT: Normocephalic, atraumatic. NECK: Supple, with tracheostomy tube in place. HEART: Showed normal first and second heart sounds. No gallop or murmur. CHEST: Clear to auscultation, no crepitation or rhonchi. ABDOMEN: Distended, soft, nontender. NEUROLOGIC: He was heavily sedated. EXTREMITIES: His right upper extremity is swollen; however, we did actually abdominal ultrasound, which showed no evidence of acute cholecystitis. His intake over the last 24 hours was 3800, output was 1500. LABORATORY DATA: As of this morning, his hemoglobin is stable at 7.5. His chemistry showed a serum sodium 140, potassium 3.4, chloride 100, bicarbonate 36, anion gap of 4, BUN 13, creatinine 0.7. Estimated GFR was 113 mL per minute. His glucose is 123, calcium was 8.6. His arterial blood gas showed a pH of 7.47, pCO2 of 51, pO2 of 80, bicarbonate 36 and oxygen saturation was 95% on FiO2 of 35%. ASSESSMENT: 1. The patient is status post cardiac arrest, likely due to hypoxia, COVID-19 pneumonia and acute inferior wall myocardial infarction. He apparently went into ventricular tachycardia that was shocked and then went into ventricular fibrillation, treated with CPR and epinephrine with return of spontaneous circulation, continued to have episodes of bradycardia, bigeminy as well as atrial fibrillation with rapid ventricular response; however, he is mostly in sinus rhythm. 2. Acute on chronic hypoxic respiratory failure. 3. Has marked leukocytosis that is improving. In fact, his white cell count is finally normalized. He also continued to have anemia and this morning, hemoglobin is 7.5. 4. Thrombocytopenia with a platelet count that is steadily dropping, his most recent platelet count went up to 101,000. He is on daptomycin, linezolid and micafungin and all of them can cause thrombocytopenia. 5. Acute respiratory distress syndrome. 6. Acute exacerbation of chronic obstructive pulmonary disease. 7. COVID-19 pneumonia. 8. Atrial fibrillation with rapid ventricular response, rate controlled. He is off his heparin as well as Plavix. 9. The patient has undergone cardiac catheterization for a second time and that showed the patient has recanalized his right coronary artery which he was started on Plavix and aspirin. 10. The patient has had a tracheostomy tube placed successfully and he is scheduled today for gastrostomy tube placement. 11. His right upper extremity is markedly swollen and has a PICC line in that extremity. I will arrange for venous Doppler ultrasound to rule out the possibility of right upper extremity DVT. ALEJANDRO DR: Vannessa TID: [id number]
[2021-09-17] MEDS: fentaNYL HIGH DOSE PCA 55 ML IV PRN (09:52)
--- NOTE | 2021-09-17 10:09 | PDOC ---
PULMONARY PROGRESS NOTES DATE: 09/17/21 TIME: 10:03 Subjective Remains on assist control mode. Still on fentanyl and propofol. Oxygen requirement has improved. Status post tracheostomy 09/13/2021 Peg placement today. family present and supportive Vitals Vital Signs Date Time Temp Pulse Resp B/P (MAP) Pulse Ox O2 Delivery O2 Flow Rate FiO2 09/17/21 09:52 99 Ventilator 09/17/21 08:14 79 141/74 09/17/21 06:00 22 09/17/21 04:00 98.6 98.6 Comments ros unable to obtain sedated on vent HEENT: Other (nc at perrl nose clear orally intubated neck no lad no thyromegaly) Lungs: Clear Cardiovascular: S1, S2 Abdomen: Soft, Non-tender Extremities: No Edema Skin: Warm Labs Laboratory Tests Test 09/15/21 11:51 09/15/21 17:42 09/16/21 05:40 09/16/21 08:15 Glucose (Fingerstick) 119 mg/dL (70-99) 101 mg/dL (70-99) White Blood Count 6.3 x10^3/uL (4.0-11.0) Red Blood Count 2.58 x10^6/uL (4.30-5.70) Hemoglobin 7.6 g/dL (13.0-17.5) Hematocrit 22.9 % (39.0-53.0) Mean Corpuscular Volume 89 fL (79-100) Mean Corpuscular Hemoglobin 30 pg (25-35) Mean Corpuscular Hemoglobin Concent 33 g/dL (31-37) Red Cell Distribution Width 15.7 % (11.5-14.5) Platelet Count 101 x10^3/uL (140-400) Sodium Level 137 mmol/L (136-145) Potassium Level 3.7 mmol/L (3.5-5.1) Chloride Level 97 mmol/L (98-107) Carbon Dioxide Level 34 mmol/L (21-32) Anion Gap 6 (6-14) Blood Urea Nitrogen 14 mg/dL (8-26) Creatinine 0.7 mg/dL (0.7-1.3) Estimated GFR (Cockcroft-Gault) 113.9 Glucose Level 112 mg/dL (70-99) Calcium Level 8.5 mg/dL (8.5-10.1) O2 Saturation 97 % (92-99) Arterial Blood pH 7.41 (7.35-7.45) Arterial Blood pCO2 at Patient Temp 54 mmHg (35-46) Arterial Blood pO2 at Patient Temp 97 mmHg (65-108) Arterial Blood HCO3 33 mmol/L (21-28) Arterial Blood Base Excess 8 mmol/L (-3-3) FiO2 40% ac 22 400 5 Test 09/16/21 14:10 09/17/21 06:28 09/17/21 08:30 09/17/21 08:45 Hemoglobin 7.2 g/dL (13.0-17.5) 7.5 g/dL (13.0-17.5) Prothrombin Time 13.0 SEC (11.7-14.0) Prothromb Time International Ratio 1.0 (0.8-1.1) Sodium Level 140 mmol/L (136-145) Potassium Level 3.4 mmol/L (3.5-5.1) Chloride Level 100 mmol/L (98-107) Carbon Dioxide Level 36 mmol/L (21-32) Anion Gap 4 (6-14) Blood Urea Nitrogen 13 mg/dL (8-26) Creatinine 0.7 mg/dL (0.7-1.3) Estimated GFR (Cockcroft-Gault) 113.9 Glucose Level 123 mg/dL (70-99) Calcium Level 8.6 mg/dL (8.5-10.1) O2 Saturation 95 % (92-99) Arterial Blood pH 7.47 (7.35-7.45) Arterial Blood pCO2 at Patient Temp 51 mmHg (35-46) Arterial Blood pO2 at Patient Temp 80 mmHg (65-108) Arterial Blood HCO3 36 mmol/L (21-28) Arterial Blood Base Excess 11 mmol/L (-3-3) FiO2 35 Laboratory Tests Test 09/16/21 14:10 09/17/21 06:28 09/17/21 08:30 09/17/21 08:45 Hemoglobin 7.2 g/dL (13.0-17.5) 7.5 g/dL (13.0-17.5) Prothrombin Time 13.0 SEC (11.7-14.0) Prothromb Time International Ratio 1.0 (0.8-1.1) Sodium Level 140 mmol/L (136-145) Potassium Level 3.4 mmol/L (3.5-5.1) Chloride Level 100 mmol/L (98-107) Carbon Dioxide Level 36 mmol/L (21-32) Anion Gap 4 (6-14) Blood Urea Nitrogen 13 mg/dL (8-26) Creatinine 0.7 mg/dL (0.7-1.3) Estimated GFR (Cockcroft-Gault) 113.9 Glucose Level 123 mg/dL (70-99) Calcium Level 8.6 mg/dL (8.5-10.1) O2 Saturation 95 % (92-99) Arterial Blood pH 7.47 (7.35-7.45) Arterial Blood pCO2 at Patient Temp 51 mmHg (35-46) Arterial Blood pO2 at Patient Temp 80 mmHg (65-108) Arterial Blood HCO3 36 mmol/L (21-28) Arterial Blood Base Excess 11 mmol/L (-3-3) FiO2 35 Comments Chest x-ray reviewed 09/12/2021. Diffuse bilateral interstitial infiltrates. Increased volume loss left lower lobe. CT chest abdomen and pelvis reviewed. Dated 09/10/2021 Impression: 1. Left lower lobe airspace consolidation superimposed on diffuse groundglass opacity with emphysematous and fibrotic change. Findings suspected to represent multifocal infectious process. 2. Infrarenal aortic aneurysm measuring 3.4 cm diameter. 3. Distended gallbladder without wall thickening. Correlate for right upper quadrant symptoms, consider acalculous cholecystitis in the setting of prolonged illness. Impression . 1. Acute hypoxic respiratory failure secondary to COVID-19 pneumonia, acute respiratory distress syndrome and possible underlying fibrosis and emphysema., Extubated 08/20, reintubated 08/23 status post CODE BLUE/semi-CODE BLUE on 09/05. Status post tracheostomy 09/13/[address] chest. Reviewed dated 09/10/2021. Left lower lobe consolidation versus atelectasis. Evidence of possible mild fibrosis. There is evidence of pneumatoceles related to Covid. 3. New sepsis. Continues to have fever. White cell count trending down. CT chest with left lower lobe consolidation, doubt the source of fever. CT abdomen with acalculous cholecystitis. Could be the source. 4. Suspected underlying severe chronic obstructive pulmonary disease. 5. COVID-19 viral pneumonia.--- Covid recovered 6. Abnormal chest x-ray with bilateral diffuse infiltrates related to COVID-19 viral pneumonia.--- Covid recovered 7. Patient reintubated 08/23, status post CODE BLUE 8. Abnormal x-ray from 08/15, possible ARDS, possible pulmonary edema, possible aspiration 9. ST elevation DE status post intra-aortic balloon pump--08/23/2021 10. Emergent cardiac catheterization revealing 90% stenotic lesion 11. Echocardiogram revealing ejection fraction of 35 to 40% pulmonary artery pressure of 34 inferior septal wall hypokinesis 12. MRSA bacteremia, lines removed. 13. Necrotic toe left second, suspect related COVID 14. Anemia Cardiac catheterization 08/30 Due to large vessel size a decision was made to defer stenting at this time for continued medical therapy. After the patient is fully extubated and depending on symptoms could consider PCI. Conclusion 1. Recanalized right coronary artery with brisk blood flow. 2. Residual proximal 70% RCA stenosis with significant ectasia of the RCA measuring up to 6.25 mm. 3. Normal left ventricular filling pressures. Recommendations 1. Continue aspirin, Plavix and heparin drip. 2. Continue plans for extubation. 3. After patient is extubated and stabilized depending on symptoms we will consider high risk PCI with specialized MegaTron stent given the large vessel size. Plan . Updated 09/17 Continue present assist-control mode. Oxygen requirement has improved. Patient developed new sepsis , has clinically improved. Status post tracheostomy 09/13/2021 Off Versed. Not fully awake. continue to wean fentanyl and assess for improvement in mental status. Off steroids Broad-spectrum antibiotics per ID. Leukocytosis is resolved. ABG noted Blood cultures negative. C. difficile negative I doubt left lower lobe atelectasis/consolidation is the etiology for marked leukocytosis. Acalculous cholecystitis could be the source. Follow GI recommendations. Discussed with RN RT Discussed with at the bedside today. PEG tube today anticipate LTAC following insurance approval Updated 09/16 Continue present assist-control mode. Oxygen requirement has improved. Patient developed new sepsis , has clinically improved. Status post tracheostomy 09/13/2021 Off Versed. Not fully awake. We will wean fentanyl and assess for improvement in mental status. Off steroids Broad-spectrum antibiotics per ID. Leukocytosis is resolved. ABG noted Blood cultures negative. C. difficile negative I doubt left lower lobe atelectasis/consolidation is the etiology for marked leukocytosis. Acalculous cholecystitis could be the source. Follow GI recommendations. Discussed with RN RT Discussed with at the bedside today. Explained to her that patient will be transferred next week to LTAC. PEG will be placed next week prior to transfer MICHELLE KNOWLES MD Sep 17, 2021 10:09
--- NOTE | 2021-09-17 10:19 | NUR ---
SS following up with discharge planning. SS reviewed pt chart and discussed with pt RN. Pt is currently on the vent at 35%. COVID19 recovered. Pt on Fentanyl and Propofol. Pt on IV Daptomycin, IV Micafungin, and IV Meropenem. Pt had trach on 09/13/2021. Tentative PEG placement scheduled for today. Pt accepted at [facility], ; fax [phone], pending insurance approval. Clinical updates phoned and faxed to [facility]. SS will continue to follow for discharge planning.
[2021-09-17] MEDS: POTASSIUM CHLORIDE 20MEQ 100 ML IV SCH ×2 (12:00→14:39)
[2021-09-17] MEDS ORDERED: METOPROLOL IV PUSH 5 MG/5 ML VIAL. IVP ONE (12:15)
--- NOTE | 2021-09-17 12:18 | PDOC ---
TETO DIAZ [employer]UE AND [employer] MANAGER 09/17/21 1217: CARDIO Progress Notes Date and Time Date of Service 09/17/21 Time of Evaluation 1215 Subjective Subjective: Other (mechanical vent ) Vitals Vitals Vital Signs Date Time Temp Pulse Resp B/P (MAP) Pulse Ox O2 Delivery O2 Flow Rate FiO2 09/17/21 11:37 100 Ventilator 09/17/21 08:14 79 141/74 09/17/21 06:00 22 09/17/21 04:00 98.6 98.6 Weight Weight [ ] Input and Output Intake and Output Intake and Output 09/17/21 07:00 Intake Total 3652 ml Output Total 2125 ml Balance 1527 ml IV Total 1319 ml Tube Feeding 2053 ml Other 280 ml Output Urine Total 2125 ml Gastric Drainage Total 0 ml Laboratory Labs Laboratory Tests Test 09/16/21 14:10 09/17/21 06:28 09/17/21 08:30 09/17/21 08:45 Hemoglobin 7.2 g/dL (13.0-17.5) 7.5 g/dL (13.0-17.5) Prothrombin Time 13.0 SEC (11.7-14.0) Prothromb Time International Ratio 1.0 (0.8-1.1) Sodium Level 140 mmol/L (136-145) Potassium Level 3.4 mmol/L (3.5-5.1) Chloride Level 100 mmol/L (98-107) Carbon Dioxide Level 36 mmol/L (21-32) Anion Gap 4 (6-14) Blood Urea Nitrogen 13 mg/dL (8-26) Creatinine 0.7 mg/dL (0.7-1.3) Estimated GFR (Cockcroft-Gault) 113.9 Glucose Level 123 mg/dL (70-99) Calcium Level 8.6 mg/dL (8.5-10.1) O2 Saturation 95 % (92-99) Arterial Blood pH 7.47 (7.35-7.45) Arterial Blood pCO2 at Patient Temp 51 mmHg (35-46) Arterial Blood pO2 at Patient Temp 80 mmHg (65-108) Arterial Blood HCO3 36 mmol/L (21-28) Arterial Blood Base Excess 11 mmol/L (-3-3) FiO2 35 Microbiology Micro Microbiology 09/05/21 Urine Culture - Final, Complete 09/05/21 Blood Culture - Final, Complete NO GROWTH AFTER 5 DAYS 08/23/21 Respiratory Culture Gram Stain - Final, Complete 08/23/21 Respiratory Culture - Final, Complete Physical Exam HEENT: Other (supple, tracheostomy ) Chest: Symmetric LUNGS: Other (MV with tracheostomy) Heart: irregularly irregular (AFIB with RVR) Abdomen: Other (soft ) Extremities: Other (Bilateral UE and LE pitting edema . Eschar to left foot, second toe) Neurology: other (sedated ) Assessment Assessment 1. S/P cardiac arrest; multifactorial. Noted with VT shock x1. approximately <3 min to ROSC. 2. Acute on chronic respiratory failure with COVID PNA, ARDS. unable to be weaned from vent. CXR with worsening consolidation, PNA. s/p tracheostomy 3. CAD, inferior STEMI with embolic disease. Repeat LHC showed recanalized RCA with brisk blood flow. Residual proximal 70% RCA stenosis with significant ectasia of the RCA 4. Cardiogenic shock; IABP removed. 5. Acute on chronic systolic CHF, ICM: EF at 35-40%. 6. AFIB RVR: Had been maintaining SR, but converted back to AFIB with RVR this morning. 7. Bradyarrhythmia; resolved. Avoid AV clara blocking agents 8. Hyperlipidemia; statin 9. Black distal phalanx to left 2nd toe: possibly r/t to covid-19. no significnat PAD per duplex 10. Leukocytosis, fevers, sepsis. CT abdomen/pelvis with gallbladder distention, but US without evidence of cholecystitis. Remains of pressor hager pport. 11. Anemia; s/p transfusion. hgb 7.5 Recommendations Metoprolol IVP x1 Continue Amiodarone for rhythm maintenance Aspirin, statin therapy Plavix on hold, awaiting PEG tube placement Ongoing support Justicifation of Admission Dx: Justifications for Admission: Justification of Admission Dx: N/A TEDDY ANGLIN MD 09/17/21 1730: CARDIO Progress Notes Plan Plan The patient was seen and interviewed as well as examined at the bedside. The chart was reviewed. The case was discussed. Agree with the plan of care. TETO DIAZ APRN Sep 17, 2021 12:17 TEDDY ANGLIN MD Sep 17, 2021 17:30
--- NOTE | 2021-09-17 13:49 | PDOC ---
Infectious Disease Note Subjective: Subjective On ventilator Awaiting PEG tube placement Vital Signs: Vital Signs Vital Signs Date Time Temp Pulse Resp B/P (MAP) Pulse Ox O2 Delivery O2 Flow Rate FiO2 09/17/21 13:27 100 Ventilator 09/17/21 08:14 79 141/74 09/17/21 06:00 22 09/17/21 04:00 98.6 98.6 Physical Exam: PHYSICAL EXAM GENERAL: Intubated through trach HEENT: No conjunctival petechia. OGT present Neck trach present LUNGS: Coarse breath sounds in the bases, otherwise clear. HEART: S1, S2, irregular. no murmurs. ABDOMEN: Soft, nontender, nondistended. Bowel sounds present. GENITOURINARY: Berumen in place. EXTREMITIES: Present no cyanosis. Right groin catheter removed, Right upper extremity PICC line placed on 08/23/2021.Lt 2nd digit black DERMATOLOGIC: Warm, dry, no generalized rash. NEUROLOGIC: Unable to assess. Medications: Inpatient Meds: Medications reviewed. Labs: Lab Laboratory Tests Test 09/16/21 14:10 09/17/21 06:28 09/17/21 08:30 09/17/21 08:45 Hemoglobin 7.2 g/dL (13.0-17.5) 7.5 g/dL (13.0-17.5) Prothrombin Time 13.0 SEC (11.7-14.0) Prothromb Time International Ratio 1.0 (0.8-1.1) Sodium Level 140 mmol/L (136-145) Potassium Level 3.4 mmol/L (3.5-5.1) Chloride Level 100 mmol/L (98-107) Carbon Dioxide Level 36 mmol/L (21-32) Anion Gap 4 (6-14) Blood Urea Nitrogen 13 mg/dL (8-26) Creatinine 0.7 mg/dL (0.7-1.3) Estimated GFR (Cockcroft-Gault) 113.9 Glucose Level 123 mg/dL (70-99) Calcium Level 8.6 mg/dL (8.5-10.1) O2 Saturation 95 % (92-99) Arterial Blood pH 7.47 (7.35-7.45) Arterial Blood pCO2 at Patient Temp 51 mmHg (35-46) Arterial Blood pO2 at Patient Temp 80 mmHg (65-108) Arterial Blood HCO3 36 mmol/L (21-28) Arterial Blood Base Excess 11 mmol/L (-3-3) FiO2 35 Micro PATIENT: JAYY JEFFRIES ACCOUNT: [id number] : 1955 LOCATION: [facility] ICU AGE: 65 SEX: M EXAM STATUS: ADM IN ORD. PHYSICIAN: SOFIA LOWERY MD REASON: Leukocytosis PROCEDURE: CT CHEST ABDOMEN PELVIS WO CT CHEST_ABDOMEN_ AND PELVIS WITHOUT CONTRAST History: Leukocytosis. Comparison: CTA chest 07/29/2021. Technique: CT of the chest, abdomen and pelvis with intravenous contrast. Findings: Chest: Devices: Endotracheal tube terminates in the upper thoracic trachea. Right upper extremity PICC terminates at the cavoatrial junction. Gastric tube terminates within the stomach. Pulmonary arteries: Unremarkable. Aorta and great vessels: No aneurysm of the aortic arch or thoracic aorta is seen. Mild atherosclerotic calcification. Heart: The heart is normal in size. There is no pericardial effusion. Moderate to heavy coronary artery calcification. Thyroid: No significant abnormalities. Mediastinum and akua: No mediastinal masses or adenopathy is seen. Esophagus: The visualized esophagus is normal. Airways, Lungs, Pleura: Moderate emphysematous change and mild subpleural fib rotic change. Left lower lobe airspace consolidation. Diffuse bilateral groundglass opacity and prominence of the interlobular septa Soft tissue and osseous: No acute findings. Abdomen/Pelvis: General abdomen: No ascites. No free air. Liver : Normal in size and attenuation. No masses seen. Gallbladder/Biliary Tree: Distended gallbladder without stones or wall thickening. No intrahepatic or extrahepatic biliary ductal dilatation. Pancreas: Normal. Spleen: Normal in size and attenuation. Adrenal glands: Normal. Kidneys: Bilateral perinephric fat stranding. No nephrolithiasis or hydronephrosis. No renal masses identified. Gastrointestinal: Stomach is decompressed by a gastric tube. Unremarkable small bowel. Normal appendix. No colonic wall thickening or pericolonic inflammatory changes. Indwelling rectal tube. Lymph nodes: No lymphadenopathy. Vessels: Fusiform infrarenal aortic aneurysm measuring 3.4 cm diameter by approximately 4 cm length. Pelvic Organs: Unremarkable reproductive organs. No pelvic masses. Bladder is decompressed by Berumen catheter. Soft tissues: Minimal anasarca. Bones: No acute or aggressive lesions. Impression: 1. Left lower lobe airspace consolidation superimposed on diffuse groundglass opacity with emphysematous and fibrotic change. Findings suspected to represent multifocal infectious process. 2. Infrarenal aortic aneurysm measuring 3.4 cm diameter. 3. Distended gallbladder without wall thickening. Correlate for right upper quadrant symptoms, consider acalculous cholecystitis in the setting of prolonged illness. Objective: Assessment: Fever resolved MRSE Bacterermia 08/22/2021.Central line was pulled out Acute hypoxic respiratory failure. COVID-19 pneumonia. Chronic obstructive pulmonary disease with possible underlying pulmonary fibrosis, aspiration pneumonia. Status post code atrial fibrillation with rapid ventricular response, ventricular fibrillation, status post defibrillation, epinephrine, bicarbonate drip, status post cardiac catheterization. IABP placement. Severe protein-calorie malnutrition. Abnormal liver function tests, likely shock liver.GB distention on CT A/P Anemia. Encephalopathy likely anoxic .Electrolyte abn Leucocytosis on steroids, also could be worsening from Bleeds epistaxis now with leukemoid reaction. CT head, chest, abdomen pelvis nonrevealing, Black digit of Lt 2nd toe could be COVID C. difficile negative on 09/05/2021 CT A/P Distended gallbladder without wall thickening. U/S neg for cholecystitis Plan: Plan of Care Cont Dapto , meropenem,micafungin September [address] C/A/P 09/10 reviewed, GB distended,US neg for cholecystitis C. 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
[2021-09-17] MEDS: MICAFUNGIN 100 MG in IV DEXTROSE 5% 100ML 100 ML IV SCH (14:00)
[2021-09-17] MEDS: DAPTOmycin (GENERIC) IVPB 550 MG in IV NORMAL SALINE 50ML 50 ML IV SCH (14:31)
[2021-09-17] MEDS: PROPOFOL 100 ML IV PRN ×3 (14:32→23:50)
--- NOTE | 2021-09-17 15:42 | PDOC4 ---
PROCEDURE Procedure EGD/PEG Indication: OP dysphagia. Meds; ventilator control. Findings: E--Normal G--Normal D--Normal bulb. --20F g-tube placed uneventfully. Re-scoped briefly, confirming good position. Keren. well. IMP: Successful PEG. REC: Please no AC's, ASA for 2 full days. OK for meds, water per G-tube today. If no issues, start feedings in AM. MANUEL WARD MD Sep 17, 2021 15:42
[2021-09-17] MEDS: ATORVASTATIN CALCIUM 40 MG TABLET. PO SCH (20:47)
[2021-09-18] VITALS (22 sets, daily range): BP systolic 126–179; BP diastolic 65–91
[2021-09-18] MEDS: PROPOFOL 100 ML IV PRN ×3 (05:30→20:37)
[2021-09-18] MEDS: MEROPENEM 500 MG in IV NORMAL SALINE 50ML 50 ML IV SCH ×3 (05:31→20:01)
[2021-09-18 06:21] LABS: ALBUMIN 1.5 g/dL (3.4-5.0); ALBUMIN/GLOBULIN RATIO 0.3 (1.0-1.7); CALCIUM 8.4 mg/dL (8.5-10.1); CREATININE 0.6 mg/dL (0.7-1.3); GFR 136.1; POTASSIUM 3.8 mmol/L (3.5-5.1); TOTAL BILIRUBIN 0.5 mg/dL (0.2-1.0); TOTAL PROTEIN 5.8 g/dL (6.4-8.2)
[2021-09-18 06:59] LABS: BASO % 0 % (0-3); EOS # 0.4 x10^3/uL (0.0-0.7); EOS % 6 % (0-3); HEMATOCRIT 23.1 % (39.0-53.0); HEMOGLOBIN 7.6 g/dL (13.0-17.5); LYMPH # 0.6 x10^3/uL (1.0-4.8); LYMPH % 8 % (24-48); MEAN CORPUSCULAR HEMOGLOBIN 29 pg (25-35); MEAN CORPUSCULAR HGB CONC 33 g/dL (31-37); MEAN CORPUSCULAR VOLUME 88 fL (79-100); MONO # 0.3 x10^3/uL (0.0-1.1); MONO % 4 % (0-9); NEUT # 6.1 x10^3/uL (1.8-7.7); NEUT % 83 % (31-73); PLATELET COUNT 147 x10^3/uL (140-400); RED BLOOD COUNT 2.62 x10^6/uL (4.30-5.70); RED CELL DISTRIBUTION WIDTH 15.8 % (11.5-14.5); WHITE BLOOD COUNT 7.4 x10^3/uL (4.0-11.0)
[2021-09-18 08:26] LABS: BASE EXCESS ABG 7 mmol/L (-3-3); HCO3 ABG 31 mmol/L (21-28); PCO2 ABG 43 mmHg (35-46); PO2 ABG 75 mmHg (65-108); SAT O2 ABG 95 % (92-99)
[2021-09-18 08:28] LABS: FIO2 ABG 35
--- NOTE | 2021-09-18 09:09 | PN ---
DATE: 09/18/2021 SUBJECTIVE: The patient is resting, slightly propped up in bed, in no apparent respiratory distress. He continued to be heavily sedated on mechanical ventilation. He apparently underwent gastrostomy tube placement successfully and we started giving his medication through it, although he was not started on tube feeding yet. PHYSICAL EXAMINATION: GENERAL: When I examined him, he was pale, but not jaundiced, cyanosed or thyromegaly. No jugular venous distention. No lower limb edema. VITAL SIGNS: His heart rate was 96, blood pressure is 148/81, temperature 98.1, respiratory rate 25, and oxygen saturation was 97% on FiO2 of 40%. HEAD, EYES, EARS, NOSE, AND THROAT: Normocephalic, atraumatic. NECK: Supple, with tracheostomy tube in place. HEART: Showed normal first and second heart sounds. No gallop, rub or murmur. CHEST: Shows central trachea, equal bilateral chest expansion, air entry, vesicular breath sounds. I could not really appreciate any crepitation or rhonchi. ABDOMEN: Distended, soft with gastrostomy tube in place. There is no guarding or rigidity. No organomegaly. All hernial orifice intact. Bowel sounds normal. NEUROLOGIC: He continued to be heavily sedated. His intake over the last 24 hours was 3650, output was 2125. LABORATORY DATA: His lab work as of this morning showed a white cell count 7.4, hemoglobin 7.6, hematocrit 23, MCV 88 and platelet count of 147,000. His chemistry showed a serum sodium 141, potassium 3.8, chloride 101, bicarbonate 34, anion gap of 6, BUN 14, creatinine 0.6. Estimated GFR was 136 mL per minute. His glucose 104, calcium was 8.4. Total bilirubin is normal. AST, ALT, alkaline phosphatase slightly elevated. Total protein 5.8, albumin was 1.5. His arterial blood gas this morning showed a pH of 7.48, pCO2 of 43, pO2 of 75, bicarbonate 31, oxygen saturation was 95% on FiO2 of 35%. ASSESSMENT: 1. The patient is status post cardiac arrest, likely due to hypoxia, COVID-19 pneumonia and acute inferior wall myocardial infarction. He apparently went into ventricular tachycardia, was shocked and then went into ventricular fibrillation, had a CPR and epinephrine with return of spontaneous circulation. He continues to have episodes of bradycardia, bigeminy as well as atrial fibrillation with rapid ventricular response, although he is mostly in sinus rhythm. 2. Acute on chronic hypoxic respiratory failure. 3. He has marked leukocytosis that is improving. In fact, his white cell count is fine. It has finally normalized. He has also continued to have anemia; however, his H and H has been stable around 7.5-7.6 g/dL. 4. Thrombocytopenia with a platelet count at steadily dropping, most recent platelet count of 201,000. He is on daptomycin, linezolid and micafungin and all of them can cause thrombocytopenia. 5. Acute respiratory distress syndrome. 6. Acute exacerbation of chronic obstructive pulmonary disease. 7. COVID-19 pneumonia. 8. Atrial fibrillation with rapid ventricular response, rate controlled. He is off his heparin as well as Plavix. 9. The patient has undergone cardiac catheterization for the second time and did show that he has recanalization of his right coronary artery for which he was started on Plavix and aspirin. 10. The patient has had a tracheostomy tube placed successfully and has a gastrostomy tube also placed successfully. 11. His right upper extremity is markedly swollen; however, he has a PICC line in that extremity. PLAN: To continue with mechanical ventilation. Continue to wean as tolerated. Continue nutritional support. If he was accepted at [facility], he would be discharged there. PRUDENCIO DR: Vannessa TID: [id number]
[2021-09-18] MEDS: DAPTOmycin (GENERIC) IVPB 550 MG in IV NORMAL SALINE 50ML 50 ML IV SCH (09:15)
[2021-09-18] MEDS: ACETAMINOPHEN 650 MG/20.3 ML SOLUTION. PEG PRN ×2 (09:16→10:28)
[2021-09-18] MEDS: PANTOPRAZOLE IV PUSH 40 MG VIAL. IVP SCH (09:17)
[2021-09-18] MEDS: AMIODARONE HCL 200 MG TABLET. PO SCH ×2 (09:17→10:28)
[2021-09-18] MEDS: ASPIRIN CHEWABLE 81 MG TABLET. PO SCH ×2 (09:17→10:27)
[2021-09-18] MEDS: levETIRAcetam 500 MG/5 ML ORAL SOLUTION. PEG SCH ×2 (09:19→21:28)
--- NOTE | 2021-09-18 10:37 | PDOC ---
Date of Service: DATE: 09/18/21 TIME: 10:33 Subjective: Subjective: present, requests suctioning. Objective: Objective: D/w nurse - PEG functioning, no concerns. Vital Signs: Vital Signs Date Time Temp Pulse Resp B/P (MAP) Pulse Ox O2 Delivery O2 Flow Rate FiO2 09/18/21 10:28 95 179/80 09/18/21 07:30 97 Ventilator 09/18/21 06:00 25 09/18/21 04:00 98.1 98.1 09/17/21 15:18 4.0 Imaging: EGD/PEG 09/17 Findings: E--Normal G--Normal D--Normal bulb. --20F g-tube placed uneventfully. Re-scoped briefly, confirming good position. Keren. well. IMP: Successful PEG. REC: Please no AC's, ASA for 2 full days. OK for meds, water per G-tube today. If no issues, start feedings in AM. PE: GEN: chronically ill LUNGS: trach/vent HEART: RRR ABD: soft, PEG site clean/dry, gauze removed from under bumper, loosened a bit NEURO/PSYCH: sedated A/P: Resp failure s/p trach and PEG Anemia - stable CAD, anoxic encephalopathy -- Okay to start PEG feeds. Justicifation of Admission Dx: Justifications for Admission: Justification of Admission Dx: N/A GEORGIA GUILLEN Sep 18, 2021 10:37
--- NOTE | 2021-09-18 10:39 | PDOC ---
PULMONARY PROGRESS NOTES DATE: 09/18/21 TIME: 10:37 Subjective Remains on assist control mode. Patient developed A. fib with RVR yesterday. Patient also had increased blood pressure. Could be in pain post PEG. Fentanyl dose was increased. Oxygen requirement has improved. Status post tracheostomy 09/13/2021 Vitals Vital Signs Date Time Temp Pulse Resp B/P (MAP) Pulse Ox O2 Delivery O2 Flow Rate FiO2 09/18/21 10:28 95 179/80 09/18/21 07:30 97 Ventilator 09/18/21 06:00 25 09/18/21 04:00 98.1 98.1 09/17/21 15:18 4.0 Comments ros unable to obtain sedated on vent HEENT: Other (nc at perrl nose clear orally intubated neck no lad no thyromegaly) Lungs: Clear Cardiovascular: S1, S2 Abdomen: Soft, Non-tender Extremities: No Edema Skin: Warm Labs Laboratory Tests Test 09/16/21 14:10 09/17/21 06:28 09/17/21 08:30 09/17/21 08:45 Hemoglobin 7.2 g/dL (13.0-17.5) 7.5 g/dL (13.0-17.5) Prothrombin Time 13.0 SEC (11.7-14.0) Prothromb Time International Ratio 1.0 (0.8-1.1) Sodium Level 140 mmol/L (136-145) Potassium Level 3.4 mmol/L (3.5-5.1) Chloride Level 100 mmol/L (98-107) Carbon Dioxide Level 36 mmol/L (21-32) Anion Gap 4 (6-14) Blood Urea Nitrogen 13 mg/dL (8-26) Creatinine 0.7 mg/dL (0.7-1.3) Estimated GFR (Cockcroft-Gault) 113.9 Glucose Level 123 mg/dL (70-99) Calcium Level 8.6 mg/dL (8.5-10.1) Magnesium Level 1.8 mg/dL (1.8-2.4) O2 Saturation 95 % (92-99) Arterial Blood pH 7.47 (7.35-7.45) Arterial Blood pCO2 at Patient Temp 51 mmHg (35-46) Arterial Blood pO2 at Patient Temp 80 mmHg (65-108) Arterial Blood HCO3 36 mmol/L (21-28) Arterial Blood Base Excess 11 mmol/L (-3-3) FiO2 35 Test 09/18/21 05:50 09/18/21 07:30 White Blood Count 7.4 x10^3/uL (4.0-11.0) Red Blood Count 2.62 x10^6/uL (4.30-5.70) Hemoglobin 7.6 g/dL (13.0-17.5) Hematocrit 23.1 % (39.0-53.0) Mean Corpuscular Volume 88 fL (79-100) Mean Corpuscular Hemoglobin 29 pg (25-35) Mean Corpuscular Hemoglobin Concent 33 g/dL (31-37) Red Cell Distribution Width 15.8 % (11.5-14.5) Platelet Count 147 x10^3/uL (140-400) Neutrophils (%) (Auto) 83 % (31-73) Lymphocytes (%) (Auto) 8 % (24-48) Monocytes (%) (Auto) 4 % (0-9) Eosinophils (%) (Auto) 6 % (0-3) Basophils (%) (Auto) 0 % (0-3) Neutrophils # (Auto) 6.1 x10^3/uL (1.8-7.7) Lymphocytes # (Auto) 0.6 x10^3/uL (1.0-4.8) Monocytes # (Auto) 0.3 x10^3/uL (0.0-1.1) Eosinophils # (Auto) 0.4 x10^3/uL (0.0-0.7) Basophils # (Auto) 0.0 x10^3/uL (0.0-0.2) Sodium Level 141 mmol/L (136-145) Potassium Level 3.8 mmol/L (3.5-5.1) Chloride Level 101 mmol/L (98-107) Carbon Dioxide Level 34 mmol/L (21-32) Anion Gap 6 (6-14) Blood Urea Nitrogen 14 mg/dL (8-26) Creatinine 0.6 mg/dL (0.7-1.3) Estimated GFR (Cockcroft-Gault) 136.1 BUN/Creatinine Ratio 23 (6-20) Glucose Level 104 mg/dL (70-99) Calcium Level 8.4 mg/dL (8.5-10.1) Total Bilirubin 0.5 mg/dL (0.2-1.0) Aspartate Amino Transf (AST/SGOT) 67 U/L (15-37) Alanine Aminotransferase (ALT/SGPT) 82 U/L (16-63) Alkaline Phosphatase 135 U/L (46-116) Total Protein 5.8 g/dL (6.4-8.2) Albumin 1.5 g/dL (3.4-5.0) Albumin/Globulin Ratio 0.3 (1.0-1.7) O2 Saturation 95 % (92-99) Arterial Blood pH 7.48 (7.35-7.45) Arterial Blood pCO2 at Patient Temp 43 mmHg (35-46) Arterial Blood pO2 at Patient Temp 75 mmHg (65-108) Arterial Blood HCO3 31 mmol/L (21-28) Arterial Blood Base Excess 7 mmol/L (-3-3) FiO2 35 Laboratory Tests Test 09/18/21 05:50 09/18/21 07:30 White Blood Count 7.4 x10^3/uL (4.0-11.0) Red Blood Count 2.62 x10^6/uL (4.30-5.70) Hemoglobin 7.6 g/dL (13.0-17.5) Hematocrit 23.1 % (39.0-53.0) Mean Corpuscular Volume 88 fL (79-100) Mean Corpuscular Hemoglobin 29 pg (25-35) Mean Corpuscular Hemoglobin Concent 33 g/dL (31-37) Red Cell Distribution Width 15.8 % (11.5-14.5) Platelet Count 147 x10^3/uL (140-400) Neutrophils (%) (Auto) 83 % (31-73) Lymphocytes (%) (Auto) 8 % (24-48) Monocytes (%) (Auto) 4 % (0-9) Eosinophils (%) (Auto) 6 % (0-3) Basophils (%) (Auto) 0 % (0-3) Neutrophils # (Auto) 6.1 x10^3/uL (1.8-7.7) Lymphocytes # (Auto) 0.6 x10^3/uL (1.0-4.8) Monocytes # (Auto) 0.3 x10^3/uL (0.0-1.1) Eosinophils # (Auto) 0.4 x10^3/uL (0.0-0.7) Basophils # (Auto) 0.0 x10^3/uL (0.0-0.2) Sodium Level 141 mmol/L (136-145) Potassium Level 3.8 mmol/L (3.5-5.1) Chloride Level 101 mmol/L (98-107) Carbon Dioxide Level 34 mmol/L (21-32) Anion Gap 6 (6-14) Blood Urea Nitrogen 14 mg/dL (8-26) Creatinine 0.6 mg/dL (0.7-1.3) Estimated GFR (Cockcroft-Gault) 136.1 BUN/Creatinine Ratio 23 (6-20) Glucose Level 104 mg/dL (70-99) Calcium Level 8.4 mg/dL (8.5-10.1) Total Bilirubin 0.5 mg/dL (0.2-1.0) Aspartate Amino Transf (AST/SGOT) 67 U/L (15-37) Alanine Aminotransferase (ALT/SGPT) 82 U/L (16-63) Alkaline Phosphatase 135 U/L (46-116) Total Protein 5.8 g/dL (6.4-8.2) Albumin 1.5 g/dL (3.4-5.0) Albumin/Globulin Ratio 0.3 (1.0-1.7) O2 Saturation 95 % (92-99) Arterial Blood pH 7.48 (7.35-7.45) Arterial Blood pCO2 at Patient Temp 43 mmHg (35-46) Arterial Blood pO2 at Patient Temp 75 mmHg (65-108) Arterial Blood HCO3 31 mmol/L (21-28) Arterial Blood Base Excess 7 mmol/L (-3-3) FiO2 35 Comments Chest x-ray reviewed 09/12/2021. Diffuse bilateral interstitial infiltrates. Increased volume loss left lower lobe. CT chest abdomen and pelvis reviewed. Dated 09/10/2021 Impression: 1. Left lower lobe airspace consolidation superimposed on diffuse groundglass opacity with emphysematous and fibrotic change. Findings suspected to represent multifocal infectious process. 2. Infrarenal aortic aneurysm measuring 3.4 cm diameter. 3. Distended gallbladder without wall thickening. Correlate for right upper quadrant symptoms, consider acalculous cholecystitis in the setting of prolonged illness. Impression . 1. Acute hypoxic respiratory failure secondary to COVID-19 pneumonia, acute respiratory distress syndrome and possible underlying fibrosis and emphysema., Extubated 08/20, reintubated 08/23 status post CODE BLUE/semi-CODE BLUE on 09/05. Status post tracheostomy 09/13/[address] chest. Reviewed dated 09/10/2021. Left lower lobe consolidation versus atelectasis. Evidence of possible mild fibrosis. There is evidence of pneumatoceles related to Covid. 3. New sepsis. Continues to have fever. White cell count trending down. CT chest with left lower lobe consolidation, doubt the source of fever. CT abdomen with acalculous cholecystitis. Could be the source. 4. Suspected underlying severe chronic obstructive pulmonary disease. 5. COVID-19 viral pneumonia.--- Covid recovered 6. Abnormal chest x-ray with bilateral diffuse infiltrates related to COVID-19 viral pneumonia.--- Covid recovered 7. Patient reintubated 08/23, status post CODE BLUE 8. Abnormal x-ray from 08/15, possible ARDS, possible pulmonary edema, possible aspiration 9. ST elevation [place] status post intra-aortic balloon pump--08/23/2021 10. Emergent cardiac catheterization revealing 90% stenotic lesion 11. Echocardiogram revealing ejection fraction of 35 to 40% pulmonary artery pressure of 34 inferior septal wall hypokinesis 12. MRSA bacteremia, lines removed. 13. Necrotic toe left second, suspect related COVID 14. Anemia Cardiac catheterization 08/30 Due to large vessel size a decision was made to defer stenting at this time for continued medical therapy. After the patient is fully extubated and depending on symptoms could consider PCI. Conclusion 1. Recanalized right coronary artery with brisk blood flow. 2. Residual proximal 70% RCA stenosis with significant ectasia of the RCA measuring up to 6.25 mm. 3. Normal left ventricular filling pressures. Recommendations 1. Continue aspirin, Plavix and heparin drip. 2. Continue plans for extubation. 3. After patient is extubated and stabilized depending on symptoms we will consider high risk PCI with specialized MegaTron stent given the large vessel size. Plan . Updated 09/18 Continue present assist-control mode. Oxygen requirement has improved. Patient developed new sepsis , has clinically improved. Status post tracheostomy 09/13/2021 Off Versed. On low-dose propofol and fentanyl. Off steroids Broad-spectrum antibiotics per ID. Leukocytosis is resolved. ABG noted Blood cultures negative. C. difficile negative Follow GI recommendations post PEG. Discussed with RN RT Discussed with at the bedside today. anticipate LTAC following insurance approval Updated 09/17 Continue present assist-control mode. Oxygen requirement has improved. Patient developed new sepsis , has clinically improved. Status post tracheostomy 09/13/2021 Off Versed. Not fully awake. continue to wean fentanyl and assess for improvement in mental status. Off steroids Broad-spectrum antibiotics per ID. Leukocytosis is resolved. ABG noted Blood cultures negative. C. difficile negative I doubt left lower lobe atelectasis/consolidation is the etiology for marked leukocytosis. Acalculous cholecystitis could be the source. Follow GI recommendations. Discussed with RN RT Discussed with at the bedside today. PEG tube today anticipate LTAC following insurance approval Updated 09/16 Continue present assist-control mode. Oxygen requirement has improved. Patient developed new sepsis , has clinically improved. Status post tracheostomy 09/13/2021 Off Versed. Not fully awake. We will wean fentanyl and assess for improvement in mental status. Off steroids Broad-spectrum antibiotics per ID. Leukocytosis is resolved. ABG noted Blood cultures negative. C. difficile negative I doubt left lower lobe atelectasis/consolidation is the etiology for marked leukocytosis. Acalculous cholecystitis could be the source. Follow GI recommendations. Discussed with RN RT Discussed with at the bedside today. Explained to her that patient will be transferred next week to LTAC. PEG will be placed next week prior to transfer MICHELLE KNOWLES MD Sep 18, 2021 10:39
--- NOTE | 2021-09-18 11:22 | NUR ---
SS following up with discharge planning. SS reviewed pt chart and discussed with pt RN. Pt is currently on the vent at 35%. Trach placed on 09/13/2021. Peg placed on 09/17/2021. COVID19 recovered. Pt on Fentanyl and Propofol. Pt on IV Daptomycin, IV Micafungin, and IV Meropenem. Pt accepted at [facility], ; fax [phone], pending insurance approval. Clinical updates phoned and faxed to [facility]. Packet and ambulance form placed on the chart. Pt's RN and pt's spouse notified. SS will continue to follow for discharge planning.
--- NOTE | 2021-09-18 12:20 | PDOC ---
ISIS GARCIA BRIMMER BLOCKER 09/18/21 1220: CARDIO Progress Notes Date and Time Date of Service 09/18/2021 Time of Evaluation 1145 Subjective Subjective: Other (unobtainable) Vitals Vitals Vital Signs Date Time Temp Pulse Resp B/P (MAP) Pulse Ox O2 Delivery O2 Flow Rate FiO2 09/18/21 10:28 95 179/80 09/18/21 07:30 97 Ventilator 09/18/21 06:00 25 09/18/21 04:00 98.1 98.1 09/17/21 15:18 4.0 Weight Weight [ ] Input and Output Intake and Output Intake and Output 09/18/21 07:00 Intake Total 366 ml Output Total 1805 ml Balance -1439 ml IV Total 266 ml Tube Feeding 100 ml Output Urine Total 1805 ml Laboratory Labs Laboratory Tests Test 09/18/21 05:50 09/18/21 07:30 White Blood Count 7.4 x10^3/uL (4.0-11.0) Red Blood Count 2.62 x10^6/uL (4.30-5.70) Hemoglobin 7.6 g/dL (13.0-17.5) Hematocrit 23.1 % (39.0-53.0) Mean Corpuscular Volume 88 fL (79-100) Mean Corpuscular Hemoglobin 29 pg (25-35) Mean Corpuscular Hemoglobin Concent 33 g/dL (31-37) Red Cell Distribution Width 15.8 % (11.5-14.5) Platelet Count 147 x10^3/uL (140-400) Neutrophils (%) (Auto) 83 % (31-73) Lymphocytes (%) (Auto) 8 % (24-48) Monocytes (%) (Auto) 4 % (0-9) Eosinophils (%) (Auto) 6 % (0-3) Basophils (%) (Auto) 0 % (0-3) Neutrophils # (Auto) 6.1 x10^3/uL (1.8-7.7) Lymphocytes # (Auto) 0.6 x10^3/uL (1.0-4.8) Monocytes # (Auto) 0.3 x10^3/uL (0.0-1.1) Eosinophils # (Auto) 0.4 x10^3/uL (0.0-0.7) Basophils # (Auto) 0.0 x10^3/uL (0.0-0.2) Sodium Level 141 mmol/L (136-145) Potassium Level 3.8 mmol/L (3.5-5.1) Chloride Level 101 mmol/L (98-107) Carbon Dioxide Level 34 mmol/L (21-32) Anion Gap 6 (6-14) Blood Urea Nitrogen 14 mg/dL (8-26) Creatinine 0.6 mg/dL (0.7-1.3) Estimated GFR (Cockcroft-Gault) 136.1 BUN/Creatinine Ratio 23 (6-20) Glucose Level 104 mg/dL (70-99) Calcium Level 8.4 mg/dL (8.5-10.1) Total Bilirubin 0.5 mg/dL (0.2-1.0) Aspartate Amino Transf (AST/SGOT) 67 U/L (15-37) Alanine Aminotransferase (ALT/SGPT) 82 U/L (16-63) Alkaline Phosphatase 135 U/L (46-116) Total Protein 5.8 g/dL (6.4-8.2) Albumin 1.5 g/dL (3.4-5.0) Albumin/Globulin Ratio 0.3 (1.0-1.7) O2 Saturation 95 % (92-99) Arterial Blood pH 7.48 (7.35-7.45) Arterial Blood pCO2 at Patient Temp 43 mmHg (35-46) Arterial Blood pO2 at Patient Temp 75 mmHg (65-108) Arterial Blood HCO3 31 mmol/L (21-28) Arterial Blood Base Excess 7 mmol/L (-3-3) FiO2 35 Microbiology Micro Microbiology 09/05/21 Urine Culture - Final, Complete 09/05/21 Blood Culture - Final, Complete NO GROWTH AFTER 5 DAYS 08/23/21 Respiratory Culture Gram Stain - Final, Complete 08/23/21 Respiratory Culture - Final, Complete Physical Exam HEENT: Other (supple, tracheostomy ) Chest: Symmetric LUNGS: Other (MV with tracheostomy) Heart: RRR (SR) Abdomen: Other (PEG in place, soft) Extremities: Other (Bilateral UE and LE pitting edema . Eschar to left foot, second toe) Neurology: other (lethargic) Assessment Assessment 1. S/P cardiac arrest; multifactorial. Noted with VT shock x1. approximately <3 min to ROSC. 2. Acute on chronic respiratory failure with COVID PNA, ARDS. unable to be weaned from vent. CXR with worsening consolidation, PNA. s/p tracheostomy 3. CAD, inferior STEMI with embolic disease. Repeat LHC showed recanalized RCA with brisk blood flow. Residual proximal 70% RCA stenosis with significant ectasia of the RCA 4. Cardiogenic shock; IABP removed. improved 5. Acute on chronic systolic CHF, ICM: EF at 35-40%. improved 6. AFIB RVR: maintaining SR 7. Bradyarrhythmia; resolved. 8. Hyperlipidemia; statin 9. Black distal phalanx to left 2nd toe: possibly r/t to covid-19. no signi ficant PAD per duplex 10. Leukocytosis, fevers, sepsis. CT abdomen/pelvis with gallbladder distention, but US without evidence of cholecystitis. 11. Anemia; s/p transfusion. hgb 7.6 12. HTN: labile Recommendations Lowdose coreg and monitor rhythm for bradycardia. Start lisinopril. lasix x1 Continue Amiodarone for rhythm maintenance Aspirin, Statin therapy. Will consider restarting plavix tomorrow if H/H remains stable. Ongoing support Secondary prevention measures Justicifation of Admission Dx: Justifications for Admission: Justification of Admission Dx: N/A TEDDY ANGLIN MD 09/19/21 1202: CARDIO Progress Notes Plan Plan Late entry for 09/18/21 Pt. seen and examined. Agree with above RAILS DEVELOPER note. Supportive care. ISIS GARCIA APRN Sep 18, 2021 12:20 TEDDY ANGLIN MD Sep 19, 2021 12:02
[2021-09-18] MEDS ORDERED: FUROSEMIDE 40 MG/4 ML VIAL. IVP ONE ×2 (12:30→20:00)
--- NOTE | 2021-09-18 12:39 | PDOC ---
Infectious Disease Note Subjective: Subjective On ventilator underwent peg tube placement Patient developed A. fib with RVR yesterday. Vital Signs: Vital Signs Vital Signs Date Time Temp Pulse Resp B/P (MAP) Pulse Ox O2 Delivery O2 Flow Rate FiO2 09/18/21 11:45 98 Ventilator 09/18/21 10:28 95 179/80 09/18/21 06:00 25 09/18/21 04:00 98.1 98.1 09/17/21 15:18 4.0 Physical Exam: PHYSICAL EXAM GENERAL: Intubated through trach HEENT: No conjunctival petechia. OGT present Neck trach present LUNGS: Coarse breath sounds in the bases, otherwise clear. HEART: S1, S2, irregular. no murmurs. ABDOMEN: Soft, nontender, nondistended. Bowel sounds present.Peg tube + GENITOURINARY: Berumen in place. EXTREMITIES: edema + no cyanosis. Right upper extremity PICC line placed on 08/23/2021.Lt 2nd digit black DERMATOLOGIC: Warm, dry, no generalized rash. NEUROLOGIC: Unable to assess. Medications: Inpatient Meds: Medications reviewed. Labs: Lab Laboratory Tests Test 09/18/21 05:50 09/18/21 07:30 White Blood Count 7.4 x10^3/uL (4.0-11.0) Red Blood Count 2.62 x10^6/uL (4.30-5.70) Hemoglobin 7.6 g/dL (13.0-17.5) Hematocrit 23.1 % (39.0-53.0) Mean Corpuscular Volume 88 fL (79-100) Mean Corpuscular Hemoglobin 29 pg (25-35) Mean Corpuscular Hemoglobin Concent 33 g/dL (31-37) Red Cell Distribution Width 15.8 % (11.5-14.5) Platelet Count 147 x10^3/uL (140-400) Neutrophils (%) (Auto) 83 % (31-73) Lymphocytes (%) (Auto) 8 % (24-48) Monocytes (%) (Auto) 4 % (0-9) Eosinophils (%) (Auto) 6 % (0-3) Basophils (%) (Auto) 0 % (0-3) Neutrophils # (Auto) 6.1 x10^3/uL (1.8-7.7) Lymphocytes # (Auto) 0.6 x10^3/uL (1.0-4.8) Monocytes # (Auto) 0.3 x10^3/uL (0.0-1.1) Eosinophils # (Auto) 0.4 x10^3/uL (0.0-0.7) Basophils # (Auto) 0.0 x10^3/uL (0.0-0.2) Sodium Level 141 mmol/L (136-145) Potassium Level 3.8 mmol/L (3.5-5.1) Chloride Level 101 mmol/L (98-107) Carbon Dioxide Level 34 mmol/L (21-32) Anion Gap 6 (6-14) Blood Urea Nitrogen 14 mg/dL (8-26) Creatinine 0.6 mg/dL (0.7-1.3) Estimated GFR (Cockcroft-Gault) 136.1 BUN/Creatinine Ratio 23 (6-20) Glucose Level 104 mg/dL (70-99) Calcium Level 8.4 mg/dL (8.5-10.1) Total Bilirubin 0.5 mg/dL (0.2-1.0) Aspartate Amino Transf (AST/SGOT) 67 U/L (15-37) Alanine Aminotransferase (ALT/SGPT) 82 U/L (16-63) Alkaline Phosphatase 135 U/L (46-116) Total Protein 5.8 g/dL (6.4-8.2) Albumin 1.5 g/dL (3.4-5.0) Albumin/Globulin Ratio 0.3 (1.0-1.7) O2 Saturation 95 % (92-99) Arterial Blood pH 7.48 (7.35-7.45) Arterial Blood pCO2 at Patient Temp 43 mmHg (35-46) Arterial Blood pO2 at Patient Temp 75 mmHg (65-108) Arterial Blood HCO3 31 mmol/L (21-28) Arterial Blood Base Excess 7 mmol/L (-3-3) FiO2 35 Micro PATIENT: JAYY JEFFRIES ACCOUNT: [id number] : 1955 LOCATION: [address] [place] [address] AGE: 65 SEX: M EXAM STATUS: ADM IN ORD. PHYSICIAN: SOFIA LOWERY MD REASON: Leukocytosis PROCEDURE: CT CHEST ABDOMEN PELVIS WO CT CHEST_ABDOMEN_ AND PELVIS WITHOUT CONTRAST History: Leukocytosis. Comparison: CTA chest 07/29/2021. Technique: CT of the chest, abdomen and pelvis with intravenous contrast. Findings: Chest: Devices: Endotracheal tube terminates in the upper thoracic trachea. Right upper extremity PICC terminates at the cavoatrial junction. Gastric tube terminates within the stomach. Pulmonary arteries: Unremarkable. Aorta and great vessels: No aneurysm of the aortic arch or thoracic aorta is seen. Mild atherosclerotic calcification. Heart: The heart is normal in size. There is no pericardial effusion. Moderate to heavy coronary artery calcification. Thyroid: No significant abnormalities. Mediastinum and akua: No mediastinal masses or adenopathy is seen. Esophagus: The visualized esophagus is normal. Airways, Lungs, Pleura: Moderate emphysematous change and mild subpleural fibrotic change. Left lower lobe airspace consolidation. Diffuse bilateral groundglass opacity and prominence of the interlobular septa Soft tissue and osseous: No acute findings. Abdomen/Pelvis: General abdomen: No ascites. No free air. Liver : Normal in size and attenuation. No masses seen. Gallbladder/Biliary Tree: Distended gallbladder without stones or wall thickening. No intrahepatic or extrahepatic biliary ductal dilatation. Pancreas: Normal. Spleen: Normal in size and attenuation. Adrenal glands: Normal. Kidneys: Bilateral perinephric fat stranding. No nephrolithiasis or hydronephrosis. No renal masses identified. Gastrointestinal: Stomach is decompressed by a gastric tube. Unremarkable small bowel. Normal appendix. No colonic wall thickening or pericolonic inflammatory changes. Indwelling rectal tube. Lymph nodes: No lymphadenopathy. Vessels: Fusiform infrarenal aortic aneurysm measuring 3.4 cm diameter by approximately 4 cm length. Pelvic Organs: Unremarkable reproductive organs. No pelvic masses. Bladder is decompressed by Berumen catheter. Soft tissues: Minimal anasarca. Bones: No acute or aggressive lesions. Impression: 1. Left lower lobe airspace consolidation superimposed on diffuse groundglass opacity with emphysematous and fibrotic change. Findings suspected to represent multifocal infectious process. 2. Infrarenal aortic aneurysm measuring 3.4 cm diameter. 3. Distended gallbladder without wall thickening. Correlate for right upper quadrant symptoms, consider acalculous cholecystitis in the setting of prolonged illness. Objective: Assessment: Fever resolved MRSE Bacterermia 08/22/2021.Central line was pulled out Acute hypoxic respiratory failure. COVID-19 pneumonia. Chronic obstructive pulmonary disease with possible underlying pulmonary fibrosis, aspiration pneumonia. Status post code atrial fibrillation with rapid ventricular response, ventricular fibrillation, status post defibrillation, epinephrine, bicarbonate drip, status post cardiac catheterization. IABP placement. Severe protein-calorie malnutrition. Abnormal liver function tests, likely shock liver.GB distention on CT A/P Anemia. Encephalopathy likely anoxic .Electrolyte abn Leucocytosis on steroids, also could be worsening from Bleeds epistaxis now with leukemoid reaction. CT head, chest, abdomen pelvis nonrevealing, Black digit of Lt 2nd toe could be COVID C. difficile negative on 09/05/2021 CT A/P Distended gallbladder without wall thickening. U/S neg for cholecystitis s/p trach 09/13 s/p peg 09/17 Plan: Plan of Care Cont Dapto , meropenem,micafungin Sep 10 C. 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
[2021-09-18] MEDS: MICAFUNGIN 100 MG in IV DEXTROSE 5% 100ML 100 ML IV SCH (14:00)
[2021-09-18] MEDS: LANSOPRAZOLE 30 MG TAB.RAP.DR FT SCH (16:30)
[2021-09-18] MEDS: CARVEDILOL 3.125 MG TABLET. PO SCH (17:00)
[2021-09-18] MEDS: ATORVASTATIN CALCIUM 40 MG TABLET. PO SCH (21:28)
[2021-09-19] VITALS (24 sets, daily range): BP systolic 118–148; BP diastolic 66–92
[2021-09-19] MEDS: MEROPENEM 500 MG in IV NORMAL SALINE 50ML 50 ML IV SCH ×4 (00:17→17:16)
[2021-09-19] MEDS: PROPOFOL 100 ML IV PRN ×2 (03:05→07:36)
[2021-09-19 08:19] LABS: BASE EXCESS ABG 11 mmol/L (-3-3); HCO3 ABG 35 mmol/L (21-28); PCO2 ABG 43 mmHg (35-46); PO2 ABG 98 mmHg (65-108); SAT O2 ABG 97 % (92-99)
[2021-09-19 08:21] LABS: FIO2 ABG 35
[2021-09-19] MEDS: fentaNYL HIGH DOSE PCA 55 ML IV PRN (08:58)
--- NOTE | 2021-09-19 08:59 | PDOC ---
PROGRESS NOTES Date of Service DATE: 09/19/21 TIME: 08:56 Assessment Anoxic encephalopathy, CODE BLUE, 08/23, in the setting of Covid pneumonia with respiratory failure, hyponatremia, atrial fibrillation, multiorgan damage including shock liver, distended gallbladder, black digit of the left second toe, cardiogenic as well as septic shock He is on levetiracetam for seizures Status-post tracheostomy on 09/13, PEG on 09/17 Plan Will follow at intervals Subjective None Objective Vital Signs Date Time Temp Pulse Resp B/P (MAP) Pulse Ox O2 Delivery O2 Flow Rate FiO2 09/19/21 07:45 100 Ventilator 09/19/21 06:00 82 22 147/88 09/19/21 04:00 98.9 98.9 Intake and Output 09/19/21 07:00 Intake Total 241 ml Output Total 2720 ml Balance -2479 ml Intake Oral 0 ml IV Total 241 ml Output Urine Total 2720 ml PHYSICAL EXAM Sedated on vent PERRL. No spontaneous extraocular movement CN: no focal findings. Muscle tone: normal. Muscle strength: Not tested DTR: Not testable Plantar reflex: Silent Gait: not examined in bed. Sensory exam: Not testable Cerebellar: Not testable Review of Relevant I have reviewed the following items shey (where applicable) has been applied. Labs Laboratory Tests Test 09/18/21 05:50 09/18/21 07:30 09/19/21 07:45 White Blood Count 7.4 x10^3/uL (4.0-11.0) Red Blood Count 2.62 x10^6/uL (4.30-5.70) Hemoglobin 7.6 g/dL (13.0-17.5) Hematocrit 23.1 % (39.0-53.0) Mean Corpuscular Volume 88 fL (79-100) Mean Corpuscular Hemoglobin 29 pg (25-35) Mean Corpuscular Hemoglobin Concent 33 g/dL (31-37) Red Cell Distribution Width 15.8 % (11.5-14.5) Platelet Count 147 x10^3/uL (140-400) Neutrophils (%) (Auto) 83 % (31-73) Lymphocytes (%) (Auto) 8 % (24-48) Monocytes (%) (Auto) 4 % (0-9) Eosinophils (%) (Auto) 6 % (0-3) Basophils (%) (Auto) 0 % (0-3) Neutrophils # (Auto) 6.1 x10^3/uL (1.8-7.7) Lymphocytes # (Auto) 0.6 x10^3/uL (1.0-4.8) Monocytes # (Auto) 0.3 x10^3/uL (0.0-1.1) Eosinophils # (Auto) 0.4 x10^3/uL (0.0-0.7) Basophils # (Auto) 0.0 x10^3/uL (0.0-0.2) Sodium Level 141 mmol/L (136-145) Potassium Level 3.8 mmol/L (3.5-5.1) Chloride Level 101 mmol/L (98-107) Carbon Dioxide Level 34 mmol/L (21-32) Anion Gap 6 (6-14) Blood Urea Nitrogen 14 mg/dL (8-26) Creatinine 0.6 mg/dL (0.7-1.3) Estimated GFR (Cockcroft-Gault) 136.1 BUN/Creatinine Ratio 23 (6-20) Glucose Level 104 mg/dL (70-99) Calcium Level 8.4 mg/dL (8.5-10.1) Total Bilirubin 0.5 mg/dL (0.2-1.0) Aspartate Amino Transf (AST/SGOT) 67 U/L (15-37) Alanine Aminotransferase (ALT/SGPT) 82 U/L (16-63) Alkaline Phosphatase 135 U/L (46-116) Total Protein 5.8 g/dL (6.4-8.2) Albumin 1.5 g/dL (3.4-5.0) Albumin/Globulin Ratio 0.3 (1.0-1.7) O2 Saturation 95 % (92-99) 97 % (92-99) Arterial Blood pH 7.48 (7.35-7.45) 7.53 (7.35-7.45) Arterial Blood pCO2 at Patient Temp 43 mmHg (35-46) 43 mmHg (35-46) Arterial Blood pO2 at Patient Temp 75 mmHg (65-108) 98 mmHg (65-108) Arterial Blood HCO3 31 mmol/L (21-28) 35 mmol/L (21-28) Arterial Blood Base Excess 7 mmol/L (-3-3) 11 mmol/L (-3-3) FiO2 35 35 Laboratory Tests Test 09/19/21 07:45 O2 Saturation 97 % (92-99) Arterial Blood pH 7.53 (7.35-7.45) Arterial Blood pCO2 at Patient Temp 43 mmHg (35-46) Arterial Blood pO2 at Patient Temp 98 mmHg (65-108) Arterial Blood HCO3 35 mmol/L (21-28) Arterial Blood Base Excess 11 mmol/L (-3-3) FiO2 35 Microbiology 09/05/21 Urine Culture - Final, Complete 09/05/21 Blood Culture - Final, Complete NO GROWTH AFTER 5 DAYS 08/23/21 Respiratory Culture Gram Stain - Final, Complete 08/23/21 Respiratory Culture - Final, Complete Medications Current Medications Dexamethasone Sodium Phosphate (Decadron) 6 mg DAILY IVP Last administered on 08/10/21at 08:29; Start 08/01/21 at 09:00; Stop 08/10/21 at 09:01; Status DC Heparin Sodium (Porcine) (Heparin Sodium) 5,000 unit Q8HRS SQ Last administered on 08/20/21at 05:41; Start 07/31/21 at 14:00; Stop 08/20/21 at 08:37; Status DC Famotidine (Pepcid Vial) 20 mg BID IVP Last administered on 09/10/21at 08:07; Start 07/31/21 at 14:00; Stop 09/10/21 at 12:40; Status DC Fentanyl Citrate 30 ml @ 2.5 mls/hr CONT PRN IV SEE PROTOCOL Last administered on 07/31/21at 12:49; Start 07/31/21 at 12:15; Stop 07/31/21 at 16:19; Status DC Midazolam HCl 100 ml @ 1 mls/hr CONT PRN IV SEE PROTOCOL Last administered on 09/14/21at 20:48; Start 07/31/21 at 12:15 Propofol 100 ml @ 3.45 mls/hr CONT PRN IV PER PROTOCOL Last administered on 09/19/21at 07:36; Start 07/31/21 at 12:15 Vecuronium [place] (Norcuron Bolus) 6 mg PRN 1X PRN IV VENT INDUCTION; Start 07/31/21 at 12:15; Stop 08/01/21 at 12:14; Status DC Glycerin/ Hypromellose/ Polyethylene (Artificial Tears) 1 drop PRN Q1HR PRN OU DRY EYE; Start 07/31/21 at 12:15 Dexmedetomidine HCl 400 mcg/ Sodium Chloride 100 ml @ 0 mls/hr CONT PRN IV PER PROTOCOL Last administered on 08/17/21at 12:55; Start 07/31/21 at 12:15 Midazolam HCl (Versed) 5 mg PRN 1X PRN IVP VENT INDUCTION; Start 07/31/21 at 12:15; Stop 08/01/21 at 12:14; Status DC Sodium Chloride 500 ml @ 500 mls/hr 1X PRN PRN IV SEE COMMENTS Last administered on 09/10/21at 17:16; Start 07/31/21 at 12:15 Atropine Sulfate (ATROPINE 0.5mg SYRINGE) 0.5 mg PRN Q5MIN PRN IV SEE COMMENTS; Start 07/31/21 at 12:15 Famotidine (Pepcid Vial) 20 mg BID IVP ; Start 07/31/21 at 21:00; Status UNV Piperacillin Sod/ Tazobactam Sod (Zosyn Per Pharmacy) 1 each PRN DAILY PRN MC SEE COMMENTS; Start 07/31/21 at 15:15; Stop 08/08/21 at 12:29; Status DC Piperacillin Sod/ Tazobactam Sod 3.375 gm/Sodium Chloride 50 ml @ 100 mls/hr Q6HRS IV Last administered on 08/07/21at 11:20; Start 07/31/21 at 18:00; Stop 08/07/21 at 17:59; Status DC Fentanyl Citrate 55 ml @ 1 mls/hr CONT PRN IV SEE PROTOCOL Last administered on 09/17/21at 09:52; Start 07/31/21 at 15:45 Insulin Human Lispro (HumaLOG) 0-7 UNITS Q6HRS SQ ; Start 08/02/21 at 06:00; Stop 08/07/21 at 08:09; Status DC Dextrose (Dextrose 50%-Water Syringe) 12.5 gm PRN Q15MIN PRN IV SEE COMMENTS; Start 08/01/21 at 23:00 Vecuronium [place] (Norcuron Bolus) 6 mg PRN Q6HRS PRN IV VENTILATOR COMPLIANCE Last administered on 09/10/21at 05:33; Start 08/06/21 at 13:45 Vecuronium [place] (Norcuron Bolus) 10 mg STK-MED ONCE IV ; Start 08/06/21 at 13:34; Stop 08/07/21 at 13:38; Status DC Sterile Water (WATER for RESP) 1,000 ml CONT PRN INH VIA VAPOTHERM DEVICE; Start 08/12/21 at 09:45; Status Cancel Dexamethasone Sodium Phosphate (Decadron) 6 mg DAILY IVP ; Start 08/17/21 at 09:00; Stop 08/16/21 at 13:31; Status DC Dexamethasone Sodium Phosphate (Decadron) 10 mg 1X ONCE IV ; Start 08/16/21 at 12:30; Stop 08/16/21 at 13:31; Status DC Acetaminophen (Tylenol) 650 mg PRN Q6HRS PRN PEG MILD PAIN / TEMP > 100.3'F Last administered on 09/18/21at 10:28; Start 08/17/21 at 00:15 Heparin Sodium (Porcine) (Heparin Sodium) 5,000 unit Q8HRS SQ Last administered on 08/23/21at 05:39; Start 08/21/21 at 14:00; Stop 08/23/21 at 18:33; Status DC Fentanyl Citrate (Fentanyl 2ml Vial) 25 mcg PRN Q5MIN PRN IVP MILD PAIN 1-3; Start 08/21/21 at 06:00; Stop 08/22/21 at 05:59; Status DC Fentanyl Citrate (Fentanyl 2ml Vial) 50 mcg PRN Q5MIN PRN IVP MODERATE PAIN 4- 6; Start 08/21/21 at 06:00; Stop 08/22/21 at 05:59; Status DC Morphine Sulfate (Morphine Sulfate) 1 mg PRN Q10MIN PRN IVP SEVERE PAIN 7-10; Start 08/21/21 at 06:00; Stop 08/22/21 at 05:59; Status DC Ringer's Solution 1,000 ml @ 30 mls/hr Q24H IV ; Start 08/21/21 at 06:00; Stop 08/21/21 at 17:59; Status DC Hydromorphone HCl (Dilaudid) 0.5 mg PRN Q10MIN PRN IVP SEVERE PAIN 7-10, 2nd CHOICE; Start 08/21/21 at 06:00; Stop 08/22/21 at 05:59; Status DC Prochlorperazine Edisylate (Compazine) 5 mg PACU PRN PRN IVP NAUSEA, MRX1; Start 08/21/21 at 06:00; Stop 08/22/21 at 05:59; Status DC Haloperidol Lactate (Haldol Inj) 5 mg PRN Q8HRS PRN IVP AGITATION; Start 08/22/21 at 10:45; Stop 08/22/21 at 10:45; Status DC Haloperidol Lactate (Haldol Inj) 5 mg Q8HRS IVP Last administered on 08/23/21at 05:38; Start 08/22/21 at 11:00; Stop 08/24/21 at 13:52; Status DC Acetaminophen (Tylenol Supp) 650 mg Q4H ONCE [place] Last administered on 08/22/21at 11:45; Start 08/22/21 at 11:30; Stop 08/22/21 at 11:31; Status DC Vancomycin HCl (Vanco Per Pharmacy) 1 each PRN DAILY PRN MC SEE COMMENTS Last administered on 08/23/21at 12:21; Start 08/22/21 at 11:30; Stop 08/24/21 at 09:14; Status DC Piperacillin Sod/ Tazobactam Sod (Zosyn Per Pharmacy) 1 each PRN DAILY PRN MC SEE COMMENTS; Start 08/22/21 at 11:30; Stop 09/10/21 at 11:37; Status DC Piperacillin Sod/ Tazobactam Sod 4.5 gm/Dextrose 100 ml @ 200 mls/hr Q6HRS IV Last administered on 09/10/21at 05:32; Start 08/22/21 at 12:00; Stop 09/10/21 at 08:13; Status DC Vancomycin HCl 2 gm/Sodium Chloride 500 ml @ 250 mls/hr 1X ONCE IV Last administered on 08/22/21at 12:34; Start 08/22/21 at 13:00; Stop 08/22/21 at 14:59; Status DC Acetaminophen (Tylenol Supp) 650 mg PRN Q4HRS PRN [place] MILD PAIN / TEMP > 100.3'F Last administered on 08/22/21at 23:32; Start 08/22/21 at 11:45 Dextrose/Lactated Ringer's 1,000 ml @ 80 mls/hr [id number] IV Last administered on 08/31/21at 21:16; Start 08/22/21 at 12:45; Stop 09/01/21 at 12:01; Status DC Vancomycin HCl 1 gm/Sodium Chloride 250 ml @ 250 mls/hr Q8H IV Last administered on 08/24/21at 04:00; Start 08/22/21 at 20:00; Stop 08/24/21 at 09:14; Status DC Vancomycin HCl (Vancomycin Trough Level) 1 each 1X ONCE MC ; Start 08/23/21 at 11:30; Stop 08/24/21 at 09:14; Status DC Etomidate (Amidate) 20 mg STK-MED ONCE IV ; Start 08/23/21 at 11:25; Stop 08/23/21 at 11:25; Status DC Succinylcholine Chloride (Anectine) 200 mg STK-MED ONCE .ROUTE ; Start 08/23/21 at 11:25; Stop 08/23/21 at 11:26; Status DC Etomidate (Amidate) 20 mg 1X ONCE IV Last administered on 08/23/21at 12:21; Start 08/23/21 at 12:15; Stop 08/23/21 at 12:16; Status DC Succinylcholine Chloride (Anectine) 100 mg 1X ONCE IV Last administered on 08/23/21at 12:21; Start 08/23/21 at 12:15; Stop 08/23/21 at 12:16; Status DC Methylprednisolone Sodium Succinate (SOLU-Medrol 125MG VIAL) 125 mg Q8HRS IV Last administered on 09/01/21at 06:08; Start 08/23/21 at 14:00; Stop 09/01/21 at 12:01; Status DC Furosemide (Lasix) 40 mg 1X ONCE IVP Last administered on 08/23/21at 13:19; Start 08/23/21 at 12:45; Stop 08/23/21 at 12:56; Status DC Furosemide (Lasix) 40 mg DAILY IVP Last administered on 08/24/21at 07:24; Start 08/24/21 at 09:00; Stop 08/24/21 at 11:24; Status DC Digoxin (Lanoxin) 500 mcg 1X ONCE IV Last administered on 08/23/21at 15:16; Start 08/23/21 at 15:30; Stop 08/23/21 at 15:31; Status DC Amiodarone HCl 150 mg/Dextrose 103 ml @ 600 mls/hr 1X ONCE IV ; Start 08/23/21 at 16:00; Stop 08/23/21 at 16:10; Status DC Amiodarone HCl 450 mg/Dextrose 259 ml @ 33 mls/hr CONT PRN IV SEE I/O RECORD Last administered on 08/24/21at 01:22; Start 08/23/21 at 16:00; Stop 08/24/21 at 15:59; Status DC Iodixanol (Visipaque 320) 100 ml STK-MED ONCE .ROUTE ; Start 08/23/21 at 16:00; Stop 08/23/21 at 16:00; Status DC Lidocaine HCl (Lidocaine 1% 20ml Vial) 20 ml STK-MED ONCE .ROUTE ; Start 08/23/21 at 16:00; Stop 08/23/21 at 16:00; Status DC Heparin Sodium/ Sodium Chloride 1,500 ml @ As Directed STK-MED ONCE .ROUTE ; Start 08/23/21 at 16:00; Stop 08/23/21 at 16:00; Status DC Amiodarone HCl (Cordarone) 150 mg STK-MED ONCE .ROUTE ; Start 08/23/21 at 16:01; Stop 08/23/21 at 16:01; Status DC Amiodarone HCl (Cordarone) 150 mg 1X ONCE IVP Last administered on 08/23/21at 16:23; Start 08/23/21 at 16:15; Stop 08/23/21 at 16:16; Status DC Aspirin (Aspirin Chewable) 324 mg 1X ONCE PO Last administered on 08/23/21at 16:07; Start 08/23/21 at 16:15; Stop 08/23/21 at 16:16; Status DC Aspirin (Aspirin Chewable) 81 mg STK-MED ONCE .ROUTE ; Start 08/23/21 at 16:06; Stop 08/23/21 at 16:06; Status DC Heparin Sodium (Porcine) (Heparin Sodium) 10,000 unit STK-MED ONCE .ROUTE ; St art 08/23/21 at 16:23; Stop 08/23/21 at 16:24; Status DC Verapamil HCl (Verapamil) 5 mg STK-MED ONCE .ROUTE ; Start 08/23/21 at 16:23; Stop 08/23/21 at 16:24; Status DC Nitroglycerin (Nitroglycerin) 200 mcg STK-MED ONCE .ROUTE ; Start 08/23/21 at 16:23; Stop 08/23/21 at 16:24; Status DC Aspirin (Aspirin Chewable) 81 mg DAILYWBKFT PO Last administered on 09/18/21at 10:27; Start 08/24/21 at 08:00 Phenylephrine HCl 50 mg/Sodium Chloride 255 ml @ 14.351 mls/ hr CONT PRN IV PER PROTOCOL Last administered on 08/23/21at 16:42; Start 08/23/21 at 16:45 Phenylephrine HCl (PHENYLEPHRINE in 0.9% NACL PF) 1 mg STK-MED ONCE IV ; Start 08/23/21 at 16:41; Stop 08/23/21 at 16:41; Status DC Heparin Sodium (Porcine) (Heparin Sodium) 10,000 unit STK-MED ONCE .ROUTE ; Start 08/23/21 at 16:47; Stop 08/23/21 at 16:47; Status DC Norepinephrine Bitartrate 8 mg/ Dextrose 258 ml @ 18.15 mls/ hr CONT PRN IV PER PROTOCOL Last administered on 09/14/21at 01:11; Start 08/23/21 at 17:00 Iodixanol (Visipaque 320) 100 ml STK-MED ONCE .ROUTE ; Start 08/23/21 at 17:07; Stop 08/23/21 at 17:07; Status DC Nitroglycerin (Nitroglycerin) 200 mcg 1X ONCE IART Last administered on 08/23/21at 16:35; Start 08/23/21 at 17:15; Stop 08/23/21 at 17:16; Status DC Verapamil HCl (Verapamil) 2.5 mg 1X ONCE IART Last administered on 08/23/21at 16:35; Start 08/23/21 at 17:15; Stop 08/23/21 at 17:16; Status DC Heparin Sodium (Porcine) (Heparin Sodium) 2,500 unit 1X ONCE IART Last administered on 08/23/21at 16:42; Start 08/23/21 at 17:15; Stop 08/23/21 at 17: 16; Status DC Heparin Sodium/ Sodium Chloride (HEPARIN for ARTERIAL LINE FLUSH) 1,000 unit 1X ONCE IART Last administered on 08/23/21at 17:15; Start 08/23/21 at 17:15; Stop 08/23/21 at 17:16; Status DC Heparin Sodium/ Sodium Chloride (HEPARIN for ARTERIAL LINE FLUSH) 4,000 unit 1X ONCE IV Last administered on 08/23/21at 17:15; Start 08/23/21 at 17:15; Stop 08/23/21 at 17:16; Status DC Iodixanol (Visipaque 320) 100 ml 1X ONCE IART Last administered on 08/23/21at 17:15; Start 08/23/21 at 17:15; Stop 08/23/21 at 17:16; Status DC Heparin Sodium (Porcine) (Heparin Sodium) 5,000 unit 1X ONCE INT CAT Last administered on 08/23/21at 16:52; Start 08/23/21 at 17:15; Stop 08/23/21 at 17:16; Status DC Tirofiban/Sodium Chloride 250 ml @ As Directed STK-MED ONCE IV ; Start 08/23/21 at 17:18; Stop 08/23/21 at 17:18; Status DC Tirofiban/Sodium Chloride 250 ml @ 16.884 mls/ hr CONT PRN IV PER PROTOCOL Last administered on 08/23/21at 17:16; Start 08/23/21 at 17:45; Stop 08/24/21 at 11:44; Status DC Heparin Sodium (Porcine) (Heparin Sodium) 5,000 unit 1X ONCE IV Last administered on 08/23/21at 17:09; Start 08/23/21 at 18:30; Stop 08/23/21 at 18:31; Status DC Levetiracetam 100 ml @ 400 mls/hr Q12HR IV Last administered on 08/26/21at 11:29; Start 08/23/21 at 21:00; Stop 08/26/21 at 21:06; Status DC Heparin Sodium/ Dextrose 250 ml @ 11.256 mls/ hr CONT PRN IV PER PROTOCOL Last administered on 09/04/21at 05:21; Start 08/23/21 at 18:45; Stop 09/04/21 at 16:22; Status DC Heparin Sodium (Porcine) (Heparin Sodium) 2,350 unit PRN Q6HRS PRN IV FOR UFH LEVEL LESS THAN 0.2 Last administered on 08/27/21at 01:28; Start 08/23/21 at 18:45; Stop 09/04/21 at 16:22; Status DC Clopidogrel Bisulfate (Plavix) 600 mg 1X ONCE PO Last administered on 08/23/21at 22:06; Start 08/23/21 at 22:30; Stop 08/23/21 at 22:31; Status DC Potassium Chloride/Water 100 ml @ 100 mls/hr Q1H IV Last administered on 08/24/21at 02:00; Start 08/23/21 at 22:00; Stop 08/24/21 at 01:59; Status DC Daptomycin 520 mg/ Sodium Chloride 50 ml @ 100 mls/hr Q24H IV Last administered on 08/26/21at 12:57; Start 08/24/21 at 11:00; Stop 08/27/21 at 08:17; Status DC Linezolid (Zyvox) 600 mg BID PO Last administered on 09/01/21at 08:32; Start 08/24/21 at 10:00; Stop 09/01/21 at 09:30; Status DC Amiodarone HCl (Cordarone) 200 mg DAILY PO Last administered on 09/18/21at 10:28; Start 08/24/21 at 12:00 Furosemide (Lasix) 40 mg DAILY IVP Last administered on 09/04/21at 10:50; Start 08/25/21 at 09:00; Stop 09/05/21 at 17:31; Status DC Atorvastatin Calcium (Lipitor) 20 mg QHS PO Last administered on 08/26/21at 22:04; Start 08/24/21 at 21:00; Stop 08/27/21 at 13:59; Status DC Clopidogrel Bisulfate (Plavix) 75 mg 1X ONCE PO ; Start 08/24/21 at 11:30; Stop 08/24/21 at 11:31; Status UNV Clopidogrel Bisulfate (Plavix) 75 mg DAILYWBKFT PO Last administered on 09/07/21at 07:41; Start 08/24/21 at 12:00; Stop 09/13/21 at 13:53; Status DC Epinephrine HCl (EPINEPHrine SYRINGE) 1 mg STK-MED ONCE .ROUTE ; Start 08/23/21 at 17:00; Stop 08/24/21 at 12:21; Status DC Sodium Bicarbonate (Sodium Bicarb Adult 8.4% Syr) 50 meq STK-MED ONCE .ROUTE ; Start 08/23/21 at 17:00; Stop 08/24/21 at 12:21; Status DC Potassium Chloride/Water 100 ml @ 100 mls/hr Q1H IV Last administered on 08/25/21at 13:32; Start 08/25/21 at 10:00; Stop 08/25/21 at 12:59; Status DC Potassium Chloride/Water 100 ml @ 100 mls/hr Q1H IV Last administered on 08/26/21at 10:05; Start 08/26/21 at 09:00; Stop 08/26/21 at 11:59; Status DC Potassium Bicarbonate (Potassium Effervescent Tablet) 60 meq 1X ONCE PO Last administered on 08/26/21at 13:51; Start 08/26/21 at 10:30; Stop 08/26/21 at 10:31; Status DC Levetiracetam 500 mg/Dextrose 105 ml @ 100 mls/hr Q12HR IV Last administered on 08/28/21at 09:00; Start 08/26/21 at 21:30; Stop 08/28/21 at 12:27; Status DC Potassium Bicarbonate (Potassium Effervescent Tablet) 20 meq TID PO Last administered on 09/04/21at 21:00; Start 08/27/21 at 09:30; Stop 09/05/21 at 16:54; Status DC Losartan Potassium (Cozaar) 25 mg DAILY PO Last administered on 09/04/21at 10:08; Start 08/27/21 at 15:00; Stop 09/05/21 at 17:07; Status DC Spironolactone (Aldactone) 25 mg DAILY PO Last administered on 09/04/21at 13:00; Start 08/27/21 at 15:00; Stop 09/05/21 at 17:08; Status DC Atorvastatin Calcium (Lipitor) 40 mg QHS PO Last administered on 09/18/21at 21:2 8; Start 08/27/21 at 21:00 Atropine Sulfate (ATROPINE 1mg SYRINGE) 1 mg STK-MED ONCE .ROUTE ; Start 08/23/21 at 12:32; Stop 08/27/21 at 14:26; Status DC Levetiracetam 100 ml @ 100 mls/hr Q12HR IV ; Start 08/28/21 at 21:00; Status Cancel Levetiracetam (Keppra Oral Soln) 500 mg BID PEG Last administered on 09/18/21at 21:28; Start 08/28/21 at 21:00 Heparin Sodium (Porcine) (Heparin Sodium) 10,000 unit STK-MED ONCE .ROUTE ; Start 08/30/21 at 12:56; Stop 08/30/21 at 12:56; Status DC Verapamil HCl (Verapamil) 5 mg STK-MED ONCE .ROUTE ; Start 08/30/21 at 12:56; Stop 08/30/21 at 12:56; Status DC Nitroglycerin (Nitroglycerin) 200 mcg STK-MED ONCE .ROUTE ; Start 08/30/21 at 12:56; Stop 08/30/21 at 12:56; Status DC Iodixanol (Visipaque 320) 100 ml STK-MED ONCE .ROUTE ; Start 08/30/21 at 12:57; Stop 08/30/21 at 12:57; Status DC Lidocaine HCl (Xylocaine-Mpf 1% 2ml Vial) 2 ml STK-MED ONCE .ROUTE ; Start 08/30/21 at 12:57; Stop 08/30/21 at 12:57; Status DC Heparin Sodium/ Sodium Chloride 1,000 ml @ As Directed STK-MED ONCE .ROUTE ; Start 08/30/21 at 12:57; Stop 08/30/21 at 12:57; Status DC Nitroglycerin (Nitroglycerin) 200 mcg 1X ONCE IART Last administered on 08/30/21at 13:34; Start 08/30/21 at 13:00; Stop 08/30/21 at 13:04; Status DC Verapamil HCl (Verapamil) 2.5 mg 1X ONCE IART Last administered on 08/30/21at 13:34; Start 08/30/21 at 13:00; Stop 08/30/21 at 13:04; Status DC Heparin Sodium (Porcine) (Heparin Sodium) 2,500 unit 1X ONCE IART Last administered on 08/30/21at 13:34; Start 08/30/21 at 13:00; Stop 08/30/21 at 13:04; Status DC Heparin Sodium/ Sodium Chloride (HEPARIN for ARTERIAL LINE FLUSH) 1,000 unit 1X ONCE IART Last administered on 08/30/21at 13:00; Start 08/30/21 at 13:00; Stop 08/30/21 at 13:04; Status DC Heparin Sodium/ Sodium Chloride (HEPARIN for ARTERIAL LINE FLUSH) 1,000 unit 1X ONCE IART Last administered on 08/30/21at 13:00; Start 08/30/21 at 13:00; Stop 08/30/21 at 13:04; Status DC Iodixanol (Visipaque 320) 100 ml 1X ONCE IART Last administered on 08/30/21at 13:55; Start 08/30/21 at 13:00; Stop 08/30/21 at 13:04; Status DC Lidocaine HCl (Xylocaine-Mpf 1% 2ml Vial) 2 ml 1X ONCE INJ Last administered on 08/30/21at 13:33; Start 08/30/21 at 13:00; Stop 08/30/21 at 13:04; Status DC Info (CONTRAST GIVEN -- Rx MONITORING) 1 each PRN DAILY PRN MC SEE COMMENTS; Start 08/30/21 at 13:15; Stop 09/01/21 at 13:14; Status DC Alteplase, Recombinant (Cathflo For Central Catheter Clearance) 1 mg 1X ONCE INT CAT Last administered on 08/31/21at 12:11; Start 08/31/21 at 10:45; Stop 08/31/21 at 10:46; Status DC Methylprednisolone Sodium Succinate (SOLU-Medrol 125MG VIAL) 60 mg Q8HRS IV Last administered on 09/04/21at 06:02; Start 09/01/21 at 14:00; Stop 09/04/21 at 08:19; Status DC Methylprednisolone Sodium Succinate (SOLU-Medrol 40MG VIAL) 40 mg Q8HRS IV Last administered on 09/06/21at 05:37; Start 09/04/21 at 14:00; Stop 09/06/21 at 10:03; Status DC Fentanyl Citrate (Fentanyl 2ml Vial) 25 mcg PRN Q5MIN PRN IVP MILD PAIN 1-3; Start 09/05/21 at 06:00; Stop 09/06/21 at 05:59; Status DC Fentanyl Citrate (Fentanyl 2ml Vial) 50 mcg PRN Q5MIN PRN IVP MODERATE PAIN 4- 6; Start 09/05/21 at 06:00; Stop 09/06/21 at 05:59; Status DC Morphine Sulfate (Morphine Sulfate) 1 mg PRN Q10MIN PRN IVP SEVERE PAIN 7-10; Start 09/05/21 at 06:00; Stop 09/06/21 at 05:59; Status DC Ringer's Solution 1,000 ml @ 30 mls/hr Q24H IV ; Start 09/05/21 at 06:00; Stop 09/05/21 at 17:59; Status DC Hydromorphone HCl (Dilaudid) 0.5 mg PRN Q10MIN PRN IVP SEVERE PAIN 7-10, 2nd CHOICE; Start 09/05/21 at 06:00; Stop 09/06/21 at 05:59; Status DC Prochlorperazine Edisylate (Compazine) 5 mg PACU PRN PRN IVP NAUSEA, MRX1; Start 09/05/21 at 06:00; Stop 09/06/21 at 05:59; Status DC Metoprolol Tartrate (Lopressor) 25 mg BID PO Last administered on 09/04/21at 20:59; Start 09/04/21 at 21:00; Stop 09/05/21 at 17:31; Status DC Norepinephrine Bitartrate 8 mg/ Dextrose 258 ml @ 0 mls/hr CONT IV ; Start 09/05/21 at 09:30; Status UNV Sodium Chloride 500 ml @ 500 mls/hr 1X ONCE IV Last administered on 09/05/21at 08:00; Start 09/05/21 at 08:00; Stop 09/05/21 at 12:11; Status DC Heparin Sodium/ Dextrose 250 ml @ 11.484 mls/ hr CONT PRN IV PER PROTOCOL Last administered on 09/05/21at 15:53; Start 09/05/21 at 14:45; Stop 09/11/21 at 14:42; Status DC Heparin Sodium (Porcine) (Heparin Sodium) 2,400 unit PRN Q6HRS PRN IV FOR UFH LEVEL LESS THAN 0.2; Start 09/05/21 at 14:45; Stop 09/11/21 at 14:42; Status DC Linezolid/Dextrose 300 ml @ 300 mls/hr Q12HR IV Last administered on 09/15/21at 08:12; Start 09/05/21 at 21:00; Stop 09/15/21 at 12:54; Status DC Vancomycin HCl (Vancomycin Oral Solution) 125 mg [id number] PO ; Start 09/05/21 at 17:30; Stop 09/06/21 at 14:59; Status DC Epinephrine HCl (EPINEPHrine SYRINGE) 1 mg STK-MED ONCE .ROUTE ; Start 09/06/21 at 07:11; Stop 09/06/21 at 07:12; Status DC Digoxin (Lanoxin) 250 mcg 1X ONCE IV Last administered on 09/06/21at 08:39; Start 09/06/21 at 08:30; Stop 09/06/21 at 08:31; Status DC Methylprednisolone Sodium Succinate (SOLU-Medrol 40MG VIAL) 40 mg Q12H IV Last administered on 09/10/21at 08:07; Start 09/06/21 at 21:00; Stop 09/10/21 at 13:16; Status DC Epinephrine HCl (EPINEPHrine SYRINGE) 1 mg STK-MED ONCE .ROUTE ; Start 09/05/21 at 17:00; Stop 09/07/21 at 08:29; Status DC Meropenem 500 mg/ Sodium Chloride 50 ml @ 100 mls/hr Q6HRS IV Last administered on 09/19/21at 06:27; Start 09/10/21 at 12:00 Daptomycin 550 mg/ Sodium Chloride 50 ml @ 100 mls/hr Q24H IV Last administered on 09/18/21at 09:15; Start 09/10/21 at 09:00 Pantoprazole Sodium (PROTONIX VIAL for IV PUSH) 40 mg BIDAC IVP Last administered on 09/18/21at 09:17; Start 09/10/21 at 16:30; Stop 09/18/21 at 10:38; Status DC Potassium Bicarbonate (Potassium Effervescent Tablet) 40 meq 1X ONCE PEG Last administered on 09/11/21at 07:36; Start 09/11/21 at 07:15; Stop 09/11/21 at 07:22; Status DC Fentanyl Citrate (Fentanyl 2ml Vial) 25 mcg PRN Q5MIN PRN IVP MILD PAIN 1-3; Start 09/13/21 at 06:00; Stop 09/14/21 at 06:00; Status DC Fentanyl Citrate (Fentanyl 2ml Vial) 50 mcg PRN Q5MIN PRN IVP MODERATE PAIN 4- 6; Start 09/13/21 at 06:00; Stop 09/14/21 at 06:00; Status DC Morphine Sulfate (Morphine Sulfate) 1 mg PRN Q10MIN PRN IVP SEVERE PAIN 7-10; Start 09/13/21 at 06:00; Stop 09/14/21 at 06:00; Status DC Ringer's Solution 1,000 ml @ 30 mls/hr Q24H IV ; Start 09/13/21 at 06:00; Stop 09/13/21 at 17:59; Status DC Hydromorphone HCl (Dilaudid) 0.5 mg PRN Q10MIN PRN IVP SEVERE PAIN 7-10, 2nd CHOICE; Start 09/13/21 at 06:00; Stop 09/14/21 at 06:00; Status DC Prochlorperazine Edisylate (Compazine) 5 mg PACU PRN PRN IVP NAUSEA, MRX1; Start 09/13/21 at 06:00; Stop 09/14/21 at 06:00; Status DC Micafungin Sodium 100 mg/Dextrose 100 ml @ 100 mls/hr Q24H IV Last administered on 09/18/21at 14:00; Start 09/12/21 at 14:00 Cellulose (Surgicel Fibrillar 1x2) 1 each STK-MED ONCE .ROUTE ; Start 09/13/21 at 09:46; Stop 09/13/21 at 09:47; Status DC Bupivacaine HCl/ Epinephrine Bitart (Sensorcaine-Epi 0.25%-1:[id number] Mpf) 30 ml STK-MED ONCE .ROUTE ; Start 09/13/21 at 09:46; Stop 09/13/21 at 09:47; Status DC Fentanyl Citrate (Fentanyl 2ml Vial) 100 mcg STK-MED ONCE .ROUTE ; Start 09/13/21 at 11:04; Stop 09/13/21 at 11:04; Status DC Digoxin (Lanoxin) 500 mcg 1X ONCE IV Last administered on 09/13/21at 21:25; Start 09/13/21 at 21:15; Stop 09/13/21 at 21:16; Status DC Potassium Bicarbonate (Potassium Effervescent Tablet) 40 meq 1X ONCE PO Last administered on 09/14/21at 08:03; Start 09/14/21 at 07:00; Stop 09/14/21 at 07:01; Status DC Furosemide (Lasix) 40 mg 1X ONCE IVP Last administered on 09/14/21 14:33; Start 09/14/21 at 14:00; Stop 09/14/21 at 14:01; Status DC Potassium Bicarbonate (Potassium Effervescent Tablet) 40 meq 1X ONCE PO Last administered on 09/14/21 14:32; Start 09/14/21 at 14:45; Stop 09/14/21 at 14:46; Status DC Ringer's Solution 1,000 ml @ 50 mls/hr Q20H IV ; Start 09/17/21 at 07:00; Stop 09/17/21 at 18:59; Status DC Potassium Chloride/Water 100 ml @ 100 mls/hr Q1H IV Last administered on 09/17/21 12:00; Start 09/17/21 at 11:00; Stop 09/17/21 at 12:59; Status DC Metoprolol Tartrate (Lopressor Vial) 5 mg 1X ONCE IVP Last administered on 09/17/21at 14:35; Start 09/17/21 at 12:15; Stop 09/17/21 at 12:16; Status DC Lansoprazole (Prevacid) 30 mg BIDBFRMEAL FT Last administered on 09/18/21at 16:30; Start 09/18/21 at 16:30 Carvedilol (Coreg) 3.125 mg BIDWMEALS PO Last administered on 09/18/21 17:00; Start 09/18/21 at 17:00 Lisinopril (Prinivil) 5 mg DAILY PO ; Start 09/19/21 at 09:00 Furosemide (Lasix) 40 mg 1X ONCE IVP ; Start 09/18/21 at 12:30; Stop 09/18/21 at 12:31; Status Cancel Furosemide (Lasix) 40 mg 1X ONCE IVP Last administered on 09/18/21at 19:59; Start 09/18/21 at 20:00; Stop 09/18/21 at 20:01; Status DC Vitals/I & O Vital Sign - Last 24 Hours 09/18/21 09/18/21 09/18/21 09/18/21 09:00 09:17 10:00 10:28 Temp 98.1 98.1 Pulse 96 96 94 95 B/P (MAP) 150/90 154/81 154/80 179/80 Pulse Ox 96 94 O2 Delivery Ventilator Ventilator 09/18/21 09/18/21 09/18/21 09/18/21 11:00 11:45 12:00 12:00 Temp 99.0 99.0 Pulse 98 94 B/P (MAP) 179/90 169/91 Pulse Ox 98 98 98 O2 Delivery Ventilator Ventilator Ventilator Mechanical Ventilator 09/18/21 09/18/21 09/18/21 09/18/21 13:00 15:00 15:50 16:00 Pulse 92 90 86 B/P (MAP) 153/80 126/75 133/78 Pulse Ox 97 97 97 97 O2 Delivery Ventilator Ventilator Ventilator Ventilator 09/18/21 09/18/21 09/18/21 09/18/21 16:00 17:00 17:00 17:35 Temp 98.6 98.6 Pulse 88 82 B/P (MAP) 162/89 142/80 Pulse Ox 97 100 O2 Delivery Mechanical Ventilator Ventilator Ventilator 09/18/21 09/18/21 09/18/21 09/18/21 18:00 19:00 20:00 20:00 Temp 98.8 98.8 Pulse 86 86 82 Resp B/P (MAP) 151/86 141/86 149/80 Pulse Ox 100 99 100 O2 Delivery Ventilator Ventilator Ventilator Mechanical Ventilator 09/18/21 09/18/21 09/18/21 09/18/21 20:30 21:00 22:00 23:00 Pulse 82 80 82 Resp 22 B/P (MAP) 157/87 137/81 147/83 Pulse Ox 100 98 98 98 O2 Delivery Ventilator Ventilator Ventilator Ventilator 09/19/21 09/19/21 09/19/21 09/19/21 00:00 00:00 00:00 01:00 Temp 99.2 99.2 Pulse 78 76 Resp B/P (MAP) 132/71 135/77 Pulse Ox 98 100 98 O2 Delivery Ventilator Ventilator Mechanical Ventilator Ventilator 09/19/21 09/19/21 09/19/21 09/19/21 02:00 03:00 04:00 04:00 Temp 98.9 98.9 Pulse 78 80 76 Resp 23 B/P (MAP) 144/87 142/86 140/92 Pulse Ox 99 98 99 O2 Delivery Ventilator Ventilator Ventilator Mechanical Ventilator 09/19/21 09/19/21 09/19/21 09/19/21 04:00 05:00 06:00 07:45 Pulse 78 82 Resp B/P (MAP) 137/91 147/88 Pulse Ox 100 100 100 100 O2 Delivery Ventilator Ventilator Ventilator Ventilator Intake and Output 09/18/21 09/18/21 09/19/21 15:00 23:00 07:00 Intake Total 0 ml 241 ml Output Total 425 ml 1450 ml 845 ml Balance -425 ml -1450 ml -604 ml Justicifation of Admission Dx: Justifications for Admission: Justification of Admission Dx: N/A DEREK TELLEZ MD Sep 19, 2021 08:59
[2021-09-19] MEDS: ASPIRIN CHEWABLE 81 MG TABLET. PO SCH (09:20)
[2021-09-19] MEDS: levETIRAcetam 500 MG/5 ML ORAL SOLUTION. PEG SCH ×2 (09:20→21:43)
[2021-09-19] MEDS: LANSOPRAZOLE 30 MG TAB.RAP.DR FT SCH ×2 (09:20→17:14)
[2021-09-19] MEDS: LISINOPRIL 5 MG TABLET. PO SCH (09:21)
[2021-09-19] MEDS: CARVEDILOL 3.125 MG TABLET. PO SCH ×2 (09:21→17:15)
[2021-09-19] MEDS: AMIODARONE HCL 200 MG TABLET. PO SCH (09:22)
--- NOTE | 2021-09-19 09:22 | PDOC ---
Date of Service: DATE: 09/19/21 TIME: 09:19 Subjective: Subjective: says he's opening his eyes and she can tell he knows what's going on. Objective: Objective: D/w nurse - PEG functioning, tolerating tube feeds. Reviewed chart - plans to DC to [facility] pending insurance approval. Vital Signs: Vital Signs Date Time Temp Pulse Resp B/P (MAP) Pulse Ox O2 Delivery O2 Flow Rate FiO2 09/19/21 08:58 100 4.0 09/19/21 07:45 Ventilator 09/19/21 06:00 82 22 147/88 09/19/21 04:00 98.9 98.9 Labs: Laboratory Tests Test 09/19/21 07:45 O2 Saturation 97 % Arterial Blood pH 7.53 Arterial Blood pCO2 at Patient Temp 43 mmHg Arterial Blood pO2 at Patient Temp 98 mmHg Arterial Blood HCO3 35 mmol/L Arterial Blood Base Excess 11 mmol/L FiO2 35 PE: GEN: chronically ill/NAD LUNGS: trach/vent HEART: RRR ABD: soft, non-tender, PEG in place, feeds @ 20cc/hr NEURO/PSYCH: eyes open A/P: Resp failure s/p trach and PEG -- PEG functioning, tolerating feeds. Awaiting DC. Justicifation of Admission Dx: Justifications for Admission: Justification of Admission Dx: N/A GEORGIA GUILLEN Sep 19, 2021 09:22
[2021-09-19] MEDS: DAPTOmycin (GENERIC) IVPB 550 MG in IV NORMAL SALINE 50ML 50 ML IV SCH (09:27)
--- NOTE | 2021-09-19 10:49 | PDOC ---
PULMONARY PROGRESS NOTES DATE: 09/19/21 TIME: 10:46 Subjective Patient remains on current ventilatory support, and assist-control mode at 35% Status post tracheostomy 09/13/2021 No overnight concerns, afebrile Vitals Vital Signs Date Time Temp Pulse Resp B/P (MAP) Pulse Ox O2 Delivery O2 Flow Rate FiO2 09/19/21 09:22 83 118/76 09/19/21 08:58 100 4.0 09/19/21 07:45 Ventilator 09/19/21 06:00 22 09/19/21 04:00 98.9 98.9 Comments ros unable to obtain sedated on vent HEENT: Other (nc at perrl nose clear orally intubated neck no lad no thyromegaly) Lungs: Clear Cardiovascular: S1, S2 Abdomen: Soft, Non-tender Extremities: No Edema Skin: Warm Labs Laboratory Tests Test 09/18/21 05:50 09/18/21 07:30 09/19/21 07:45 White Blood Count 7.4 x10^3/uL (4.0-11.0) Red Blood Count 2.62 x10^6/uL (4.30-5.70) Hemoglobin 7.6 g/dL (13.0-17.5) Hematocrit 23.1 % (39.0-53.0) Mean Corpuscular Volume 88 fL (79-100) Mean Corpuscular Hemoglobin 29 pg (25-35) Mean Corpuscular Hemoglobin Concent 33 g/dL (31-37) Red Cell Distribution Width 15.8 % (11.5-14.5) Platelet Count 147 x10^3/uL (140-400) Neutrophils (%) (Auto) 83 % (31-73) Lymphocytes (%) (Auto) 8 % (24-48) Monocytes (%) (Auto) 4 % (0-9) Eosinophils (%) (Auto) 6 % (0-3) Basophils (%) (Auto) 0 % (0-3) Neutrophils # (Auto) 6.1 x10^3/uL (1.8-7.7) Lymphocytes # (Auto) 0.6 x10^3/uL (1.0-4.8) Monocytes # (Auto) 0.3 x10^3/uL (0.0-1.1) Eosinophils # (Auto) 0.4 x10^3/uL (0.0-0.7) Basophils # (Auto) 0.0 x10^3/uL (0.0-0.2) Sodium Level 141 mmol/L (136-145) Potassium Level 3.8 mmol/L (3.5-5.1) Chloride Level 101 mmol/L (98-107) Carbon Dioxide Level 34 mmol/L (21-32) Anion Gap 6 (6-14) Blood Urea Nitrogen 14 mg/dL (8-26) Creatinine 0.6 mg/dL (0.7-1.3) Estimated GFR (Cockcroft-Gault) 136.1 BUN/Creatinine Ratio 23 (6-20) Glucose Level 104 mg/dL (70-99) Calcium Level 8.4 mg/dL (8.5-10.1) Total Bilirubin 0.5 mg/dL (0.2-1.0) Aspartate Amino Transf (AST/SGOT) 67 U/L (15-37) Alanine Aminotransferase (ALT/SGPT) 82 U/L (16-63) Alkaline Phosphatase 135 U/L (46-116) Total Protein 5.8 g/dL (6.4-8.2) Albumin 1.5 g/dL (3.4-5.0) Albumin/Globulin Ratio 0.3 (1.0-1.7) O2 Saturation 95 % (92-99) 97 % (92-99) Arterial Blood pH 7.48 (7.35-7.45) 7.53 (7.35-7.45) Arterial Blood pCO2 at Patient Temp 43 mmHg (35-46) 43 mmHg (35-46) Arterial Blood pO2 at Patient Temp 75 mmHg (65-108) 98 mmHg (65-108) Arterial Blood HCO3 31 mmol/L (21-28) 35 mmol/L (21-28) Arterial Blood Base Excess 7 mmol/L (-3-3) 11 mmol/L (-3-3) FiO2 35 35 Laboratory Tests Test 09/19/21 07:45 O2 Saturation 97 % (92-99) Arterial Blood pH 7.53 (7.35-7.45) Arterial Blood pCO2 at Patient Temp 43 mmHg (35-46) Arterial Blood pO2 at Patient Temp 98 mmHg (65-108) Arterial Blood HCO3 35 mmol/L (21-28) Arterial Blood Base Excess 11 mmol/L (-3-3) FiO2 35 Comments Chest x-ray reviewed 09/12/2021. Diffuse bilateral interstitial infiltrates. Increased volume loss left lower lobe. CT chest abdomen and pelvis reviewed. Dated 09/10/2021 Impression: 1. Left lower lobe airspace consolidation superimposed on diffuse groundglass opacity with emphysematous and fibrotic change. Findings suspected to represent multifocal infectious process. 2. Infrarenal aortic aneurysm measuring 3.4 cm diameter. 3. Distended gallbladder without wall thickening. Correlate for right upper quadrant symptoms, consider acalculous cholecystitis in the setting of prolonged illness. Impression . 1. Acute hypoxic respiratory failure secondary to COVID-19 pneumonia, acute respiratory distress syndrome and possible underlying fibrosis and emphysema., Extubated 08/20, reintubated 08/23 status post CODE BLUE/semi-CODE BLUE on 09/05. Status post tracheostomy 09/13/[address] chest. Reviewed dated 09/10/2021. Left lower lobe consolidation versus atelectasis. Evidence of possible mild fibrosis. There is evidence of pneumatoceles related to Covid. 3. New sepsis. Continues to have fever. White cell count trending down. CT chest with left lower lobe consolidation, doubt the source of fever. CT abdomen with acalculous cholecystitis. Could be the source. 4. Suspected underlying severe chronic obstructive pulmonary disease. 5. COVID-19 viral pneumonia.--- Covid recovered 6. Abnormal chest x-ray with bilateral diffuse infiltrates related to COVID-19 viral pneumonia.--- Covid recovered 7. Patient reintubated 08/23, status post CODE BLUE 8. Abnormal x-ray from 08/15, possible ARDS, possible pulmonary edema, possible aspiration 9. ST elevation NH status post intra-aortic balloon pump--08/23/2021 10. Emergent cardiac catheterization revealing 90% stenotic lesion 11. Echocardiogram revealing ejection fraction of 35 to 40% pulmonary artery pressure of 34 inferior septal wall hypokinesis 12. MRSA bacteremia, lines removed. 13. Necrotic toe left second, suspect related COVID 14. Anemia Cardiac catheterization 08/30 Due to large vessel size a decision was made to defer stenting at this time for continued medical therapy. After the patient is fully extubated and depending on symptoms could consider PCI. Conclusion 1. Recanalized right coronary artery with brisk blood flow. 2. Residual proximal 70% RCA stenosis with significant ectasia of the RCA measuring up to 6.25 mm. 3. Normal left ventricular filling pressures. Recommendations 1. Continue aspirin, Plavix and heparin drip. 2. Continue plans for extubation. 3. After patient is extubated and stabilized depending on symptoms we will consider high risk PCI with specialized MegaTron stent given the large vessel size. Plan . Updated 09/19/2021 Continue current ventilatory support, currently on assist control mode, plan for CPAP trial once discontinuation of sedation--22/400/5/35% Status post tracheostomy and PEG tube placement Bronchodilators DC propofol, decrease dose of fentanyl Continue antibiotics per infectious disease Follow cardiology recommendations Awaiting insurance approval for discharge to LTAC--[facility] DVT/GI prophylaxis: Lovenox/Pepcid Discussed with RN and RT Full code Updated 09/18 Continue present assist-control mode. Oxygen requirement has improved. Patient developed new sepsis , has clinically improved. Status post tracheostomy 09/13/2021 Off Versed. On low-dose propofol and fentanyl. Off steroids Broad-spectrum antibiotics per ID. Leukocytosis is resolved. ABG noted Blood cultures negative. C. difficile negative Follow GI recommendations post PEG. Discussed with RN RT Discussed with at the bedside today. anticipate LTAC following insurance approval Updated 09/17 Continue present assist-control mode. Oxygen requirement has improved. Patient developed new sepsis , has clinically improved. Status post tracheostomy 09/13/2021 Off Versed. Not fully awake. continue to wean fentanyl and assess for improvement in mental status. Off steroids Broad-spectrum antibiotics per ID. Leukocytosis is resolved. ABG noted Blood cultures negative. C. difficile negative I doubt left lower lobe atelectasis/consolidation is the etiology for marked leukocytosis. Acalculous cholecystitis could be the source. Follow GI recommendations. Discussed with RN RT Discussed with at the bedside today. PEG tube today anticipate LTAC following insurance approval MICHELLE KNOWLES MD Sep 19, 2021 10:49
[2021-09-19] MEDS: FAMOTIDINE 20 MG TABLET. PO SCH ×2 (11:00→13:44)
--- NOTE | 2021-09-19 11:33 | PDOC ---
CARDIO Progress Notes Date and Time Date of Service 09/18/2021 Time of Evaluation 1115 Subjective Subjective: Other (unobtainable) Vitals Vitals Vital Signs Date Time Temp Pulse Resp B/P (MAP) Pulse Ox O2 Delivery O2 Flow Rate FiO2 09/19/21 09:22 83 118/76 09/19/21 08:58 100 4.0 09/19/21 07:45 Ventilator 09/19/21 06:00 22 09/19/21 04:00 98.9 98.9 Weight Weight [ ] Input and Output Intake and Output Intake and Output 09/19/21 07:00 Intake Total 241 ml Output Total 2720 ml Balance -2479 ml Intake Oral 0 ml IV Total 241 ml Output Urine Total 2720 ml Laboratory Labs Laboratory Tests Test 09/19/21 07:45 O2 Saturation 97 % (92-99) Arterial Blood pH 7.53 (7.35-7.45) Arterial Blood pCO2 at Patient Temp 43 mmHg (35-46) Arterial Blood pO2 at Patient Temp 98 mmHg (65-108) Arterial Blood HCO3 35 mmol/L (21-28) Arterial Blood Base Excess 11 mmol/L (-3-3) FiO2 35 Microbiology Micro Microbiology 09/05/21 Urine Culture - Final, Complete 09/05/21 Blood Culture - Final, Complete NO GROWTH AFTER 5 DAYS 08/23/21 Respiratory Culture Gram Stain - Final, Complete 08/23/21 Respiratory Culture - Final, Complete Physical Exam HEENT: Other (supple, tracheostomy, tracking with eyes) Chest: Symmetric LUNGS: Other (MV with tracheostomy) Heart: RRR (SR) Abdomen: Other (PEG in place, soft) Extremities: Other (Bilateral UE and LE pitting edema . Eschar to left foot, second toe) Neurology: other (lethargic) Assessment Assessment 1. S/P cardiac arrest; multifactorial. Noted with VT shock x1. approximately <3 min to ROSC. 2. Acute on chronic respiratory failure with COVID PNA, ARDS. unable to be weaned from vent. CXR with worsening consolidation, PNA. s/p tracheostomy 3. CAD, inferior STEMI with embolic disease. Repeat LHC showed recanalized RCA with brisk blood flow. Residual proximal 70% RCA stenosis with significant ectasia of the RCA 4. Cardiogenic shock; IABP removed. improved 5. Acute on chronic systolic CHF, ICM: EF at 35-40%. improved 6. AFIB RVR: maintaining SR 7. Bradyarrhythmia; resolved. 8. Hyperlipidemia; statin 9. Black distal phalanx to left 2nd toe: possibly r/t to covid-19. no significant PAD per duplex 10. Leukocytosis, fevers, sepsis. CT abdomen/pelvis with gallbladder distention, but US without evidence of cholecystitis. 11. Anemia; s/p transfusion. hgb 7.6 12. HTN: better controlled Recommendations Continue low dose coreg and lisinopril. No bradycardia so far. BMP and CBC today. Lasix PRN Continue Amiodarone for rhythm maintenance Aspirin, Statin therapy. Will consider restarting plavix pending H/H Ongoing support Secondary prevention measures Justicifation of Admission Dx: Justifications for Admission: Justification of Admission Dx: N/A ISIS GARCIA APRN Sep 19, 2021 11:33
[2021-09-19 11:58] LABS: HEMATOCRIT 23.5 % (39.0-53.0); HEMOGLOBIN 7.6 g/dL (13.0-17.5); RED BLOOD COUNT 2.68 x10^6/uL (4.30-5.70); RED CELL DISTRIBUTION WIDTH 15.9 % (11.5-14.5); WHITE BLOOD COUNT 11.2 x10^3/uL (4.0-11.0)
[2021-09-19 12:14] LABS: CALCIUM 8.2 mg/dL (8.5-10.1); CREATININE 0.6 mg/dL (0.7-1.3); GFR 136.1
[2021-09-19] MEDS ORDERED: POTASSIUM BICARB 20 MEQ EFFERVESCENT TABLET. PEG ONE (13:00)
--- NOTE | 2021-09-19 13:14 | PN ---
DATE: 09/19/2021 SUBJECTIVE: The patient continued to be sedated on mechanical ventilation. He is now on propofol and fentanyl. Most of his medication was given through his feeding tube; however, he is on IV antibiotic in the form of meropenem, micafungin as well as daptomycin. PHYSICAL EXAMINATION: GENERAL: When I saw him this morning, he looked well and was clearly in no apparent respiratory distress. He was pale, no jaundice, cyanosis or thyromegaly. No jugular venous distention. No limb edema. VITAL SIGNS: His heart rate was 84, blood pressure is 118/76, temperature was 98.9, respiratory rate was 22 and oxygen saturation was 100% on 4 liters of oxygen by nasal cannula. HEAD, EYES, EARS, NOSE, AND THROAT: Normocephalic, atraumatic. NECK: Supple. HEART: Normal first and second heart sounds. No gallop or murmur. CHEST: Shows central trachea, equal bilateral expansion, air entry, vesicular breath sounds. I could not appreciate any crepitation or rhonchi. ABDOMEN: Distended, soft with gastrostomy tube in place. There is no guarding or rigidity. No organomegaly. All hernial orifice intact. Bowel sounds normal. NEUROLOGIC: He is heavily sedated. His intake over the last 24 hours was 366, output was 1800. LABORATORY DATA: As of yesterday showed a white cell count 7400, hemoglobin 7.6, hematocrit 23, MCV 88 and platelet count of 147,000. Serum sodium 141, potassium 3.8, chloride 101, bicarbonate 34, anion gap of 6, BUN 14, creatinine 0.6. Estimated GFR was 136 mL per minute. His glucose is 104, calcium was 8.4. Total bilirubin is normal. AST, ALT, alkaline phosphatase are slightly elevated. His total protein is 5.8, albumin was 1.5. His arterial blood gas this morning showed a pH of 7.53, pCO2 of 43, pO2 of 98, bicarbonate 35 and oxygen saturation was 97% on FiO2 of 35%. ASSESSMENT: 1. The patient is status post cardiac arrest, likely due to hypoxia, COVID-19 pneumonia and acute inferior wall myocardial infarction. He apparently went into ventricular tachycardia, was shocked and then entered into ventricular fibrillation, treated with CPR and epinephrine with return of spontaneous circulation. He continued to have episodes of bradycardia, bigeminy as well as atrial fibrillation with rapid ventricular response, although he is mostly in sinus rhythm. 2. Acute on chronic hypoxic respiratory failure, he failed a weaning trial, he underwent tracheostomy tube placement successfully as well as percutaneous endoscopic gastrostomy tube successfully. 3. He has marked leukocytosis that is improving; however, he continued to be anemic with stable hemoglobin and hematocrit. 4. Thrombocytopenia with a platelet count that has steadily dropped, the most recent platelet count went up to 147,000. 5. Acute respiratory distress syndrome. 6. Acute exacerbation of chronic obstructive pulmonary disease. 7. COVID-19 pneumonia. 8. Atrial fibrillation with rapid ventricular response, rate controlled. He is off his heparin as well as Plavix. 9. The patient has undergone cardiac catheterization for the second time and it did show that the patient has recanalized his right coronary artery for which he was started on Plavix and aspirin. 10. The patient has tracheostomy tube placed successfully as well as gastrostomy tube. He is now on tube feeding and water flushes. Most of his medications are given through his gastrostomy tube except his IV antibiotic. 11. His right upper extremity is markedly swollen; however, he has a PICC line in that extremity. PLAN: To continue with mechanical ventilation, wean as tolerated. Continue nutritional support through the gastrostomy tube. Continue with IV antibiotic. Continue with sedation. BRUNILDA DR: Vannessa TID: [id number]
--- NOTE | 2021-09-19 13:22 | PDOC ---
Infectious Disease Note Subjective: Subjective Remains on ventilator afebrile Vital Signs: Vital Signs Vital Signs Date Time Temp Pulse Resp B/P (MAP) Pulse Ox O2 Delivery O2 Flow Rate FiO2 09/19/21 13:03 97 Ventilator 09/19/21 09:22 83 118/76 09/19/21 08:58 4.0 09/19/21 06:00 22 09/19/21 04:00 98.9 98.9 Physical Exam: PHYSICAL EXAM GENERAL: Intubated through trach HEENT: No conjunctival petechia. OGT present Neck trach present LUNGS: Coarse breath sounds in the bases, otherwise clear. HEART: S1, S2, irregular. no murmurs. ABDOMEN: Soft, nontender, nondistended. Bowel sounds present.Peg tube + GENITOURINARY: Berumen in place. EXTREMITIES: edema + no cyanosis. Right upper extremity PICC line placed on 08/23/2021.Lt 2nd digit black DERMATOLOGIC: Warm, dry, no generalized rash. NEUROLOGIC: Unable to assess. Medications: Inpatient Meds: Medications reviewed. Labs: Lab Laboratory Tests Test 09/19/21 07:45 09/19/21 11:45 O2 Saturation 97 % (92-99) Arterial Blood pH 7.53 (7.35-7.45) Arterial Blood pCO2 at Patient Temp 43 mmHg (35-46) Arterial Blood pO2 at Patient Temp 98 mmHg (65-108) Arterial Blood HCO3 35 mmol/L (21-28) Arterial Blood Base Excess 11 mmol/L (-3-3) FiO2 35 White Blood Count 11.2 x10^3/uL (4.0-11.0) Red Blood Count 2.68 x10^6/uL (4.30-5.70) Hemoglobin 7.6 g/dL (13.0-17.5) Hematocrit 23.5 % (39.0-53.0) Mean Corpuscular Volume 88 fL (79-100) Mean Corpuscular Hemoglobin 28 pg (25-35) Mean Corpuscular Hemoglobin Concent 33 g/dL (31-37) Red Cell Distribution Width 15.9 % (11.5-14.5) Platelet Count 196 x10^3/uL (140-400) Sodium Level 141 mmol/L (136-145) Potassium Level 3.0 mmol/L (3.5-5.1) Chloride Level 99 mmol/L (98-107) Carbon Dioxide Level 35 mmol/L (21-32) Anion Gap 7 (6-14) Blood Urea Nitrogen 15 mg/dL (8-26) Creatinine 0.6 mg/dL (0.7-1.3) Estimated GFR (Cockcroft-Gault) 136.1 Glucose Level 113 mg/dL (70-99) Calcium Level 8.2 mg/dL (8.5-10.1) Micro PATIENT: JAYY JEFFRIES ACCOUNT: [id number] : 1955 LOCATION: [address] [place] [address] AGE: 65 SEX: M EXAM STATUS: ADM IN ORD. PHYSICIAN: SOFIA LOWERY MD REASON: Leukocytosis PROCEDURE: CT CHEST ABDOMEN PELVIS WO CT CHEST_ABDOMEN_ AND PELVIS WITHOUT CONTRAST History: Leukocytosis. Comparison: CTA chest 07/29/2021. Technique: CT of the chest, abdomen and pelvis with intravenous contrast. Findings: Chest: Devices: Endotracheal tube terminates in the upper thoracic trachea. Right upper extremity PICC terminates at the cavoatrial junction. Gastric tube terminates within the stomach. Pulmonary arteries: Unremarkable. Aorta and great vessels: No aneurysm of the aortic arch or thoracic aorta is seen. Mild atherosclerotic calcification. Heart: The heart is normal in size. There is no pericardial effusion. Moderate to heavy coronary artery calcification. Thyroid: No significant abnormalities. Mediastinum and akua: No mediastinal masses or adenopathy is seen. Esophagus: The visualized esophagus is normal. Airways, Lungs, Pleura: Moderate emphysematous change and mild subpleural fibrotic change. Left lower lobe airspace consolidation. Diffuse bilateral groundglass opacity and prominence of the interlobular septa Soft tissue and osseous: No acute findings. Abdomen/Pelvis: General abdomen: No ascites. No free air. Liver : Normal in size and attenuation. No masses seen. Gallbladder/Biliary Tree: Distended gallbladder without stones or wall thickening. No intrahepatic or extrahepatic biliary ductal dilatation. Pancreas: Normal. Spleen: Normal in size and attenuation. Adrenal glands: Normal. Kidneys: Bilateral perinephric fat stranding. No nephrolithiasis or hydronephros is. No renal masses identified. Gastrointestinal: Stomach is decompressed by a gastric tube. Unremarkable small bowel. Normal appendix. No colonic wall thickening or pericolonic inflammatory changes. Indwelling rectal tube. Lymph nodes: No lymphadenopathy. Vessels: Fusiform infrarenal aortic aneurysm measuring 3.4 cm diameter by approximately 4 cm length. Pelvic Organs: Unremarkable reproductive organs. No pelvic masses. Bladder is decompressed by Berumen catheter. Soft tissues: Minimal anasarca. Bones: No acute or aggressive lesions. Impression: 1. Left lower lobe airspace consolidation superimposed on diffuse groundglass opacity with emphysematous and fibrotic change. Findings suspected to represent multifocal infectious process. 2. Infrarenal aortic aneurysm measuring 3.4 cm diameter. 3. Distended gallbladder without wall thickening. Correlate for right upper quadrant symptoms, consider acalculous cholecystitis in the setting of prolonged illness. Objective: Assessment: Fever resolved MRSE Bacterermia 08/22/2021.Central line was pulled out Acute hypoxic respiratory failure. COVID-19 pneumonia. Chronic obstructive pulmonary disease with possible underlying pulmonary fibrosis, aspiration pneumonia. Status post code atrial fibrillation with rapid ventricular response, ventricular fibrillation, status post defibrillation, epinephrine, bicarbonate drip, status post cardiac catheterization. IABP placement. Severe protein-calorie malnutrition. Abnormal liver function tests, likely shock liver.GB distention on CT A/P Anemia. Encephalopathy likely anoxic .Electrolyte abn Leucocytosis on steroids, also could be worsening from Bleeds epistaxis now with leukemoid reaction. CT head, chest, abdomen pelvis nonrevealing, Black digit of Lt 2nd toe could be COVID C. difficile negative on 09/05/2021 CT A/P Distended gallbladder without wall thickening. U/S neg for cholecystitis s/p trach 09/13 s/p peg 09/17 Plan: Plan of Care Cont meropenem Sep 10 DC Micafungin and daptomycin C. 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
[2021-09-19] MEDS: ENOXAPARIN 40 MG/0.4 ML SYRINGE. SQ SCH (13:44)
[2021-09-19] MEDS: MICAFUNGIN 100 MG in IV DEXTROSE 5% 100ML 100 ML IV SCH (14:00)
[2021-09-19] MEDS: ATORVASTATIN CALCIUM 40 MG TABLET. PO SCH (21:44)
[2021-09-20] VITALS (13 sets, daily range): BP systolic 116–142; BP diastolic 70–93
[2021-09-20] MEDS: MEROPENEM 500 MG in IV NORMAL SALINE 50ML 50 ML IV SCH ×3 (01:37→12:00)
[2021-09-20 06:13] LABS: HEMATOCRIT 21.7 % (39.0-53.0); HEMOGLOBIN 7.2 g/dL (13.0-17.5); RED BLOOD COUNT 2.49 x10^6/uL (4.30-5.70); WHITE BLOOD COUNT 9.8 x10^3/uL (4.0-11.0)
[2021-09-20 06:27] LABS: ALBUMIN 1.4 g/dL (3.4-5.0); ALBUMIN/GLOBULIN RATIO 0.3 (1.0-1.7); CALCIUM 8.4 mg/dL (8.5-10.1); CREATININE 0.5 mg/dL (0.7-1.3); GFR 167.9; TOTAL BILIRUBIN 0.4 mg/dL (0.2-1.0); TOTAL PROTEIN 5.6 g/dL (6.4-8.2)
[2021-09-20 06:34] LABS: POTASSIUM 2.9 mmol/L (3.5-5.1)
[2021-09-20] MEDS: LANSOPRAZOLE 30 MG TAB.RAP.DR FT SCH (07:30)
[2021-09-20] MEDS: POTASSIUM CHLORIDE 20MEQ 100 ML IV SCH ×3 (07:30→09:00)
[2021-09-20] MEDS: CARVEDILOL 3.125 MG TABLET. PO SCH (08:00)
[2021-09-20 08:21] LABS: BASE EXCESS ABG 12 mmol/L (-3-3); HCO3 ABG 35 mmol/L (21-28); PCO2 ABG 41 mmHg (35-46); PO2 ABG 100 mmHg (65-108); SAT O2 ABG 97 % (92-99)
[2021-09-20 08:43] LABS: FIO2 ABG 35% AC 22 400 5
--- NOTE | 2021-09-20 09:41 | PN ---
DATE: 09/20/2021 SUBJECTIVE: The patient is resting, slightly propped up in bed, in no apparent distress. He is awake, alert, opens eyes, tracks and responds appropriately, continued to be on mechanical ventilation, maintaining his oxygen saturation at 99% on FiO2 of 35%. He is only on minimal dose of fentanyl. Apparently, his insurance authorized transfer to [facility]; however, they have no beds today. PHYSICAL EXAMINATION: GENERAL: When I examined him, he was pale, not jaundiced or cyanosed. No thyromegaly. No jugular venous distention. No lower limb edema. VITAL SIGNS: His heart rate was 72, blood pressure was 127/81, temperature was 98.9, respiratory rate was 22 and oxygen saturation was 99% on FiO2 of 35%. HEAD, EYES, EARS, NOSE, AND THROAT: Showed he is normocephalic, atraumatic. NECK: Supple. HEART: Showed normal first and second heart sounds. No gallop or murmur. CHEST: Clear to auscultation, no crepitation or rhonchi. ABDOMEN: Distended, soft, nontender. NEUROLOGIC: He is definitely more awake, alert, responding appropriately. He has marked critical illness myopathy, has an indwelling Berumen catheter. His intake over the last 24 hours was incompletely recorded, output was 2720. LABORATORY DATA: As of this morning showed a white cell count 9800, hemoglobin 7.2, hematocrit 22, MCV 87 and platelet count 227,000. Serum sodium was 142, potassium 2.9, chloride 102, bicarbonate 37, anion gap of 3, BUN 18, creatinine 0.5, estimated GFR was 167 mL per minute. His glucose 127, calcium was 8.4. Total bilirubin is normal. AST, ALT, alkaline phosphatase are elevated, but trending down. Total protein 5.6, albumin was 1.4. His blood gas this morning showed pH of 7.55, pCO2 of 41, pO2 of 100, bicarbonate 35, anion gap of 12 and oxygen saturation was 97% on FiO2 of 35%. ASSESSMENT: 1. The patient is status post cardiac arrest, likely due to hypoxia, COVID-19 pneumonia as well as acute inferior wall myocardial infarction and went in ventricular tachycardia, it was shocked and then entered into ventricular fibrillation, treated with CPR and epinephrine with return of spontaneous circulation. He continued to have episodes of bradycardia, bigeminy as well as atrial fibrillation with rapid ventricular response, although he is mostly in sinus rhythm. 2. Acute on chronic hypoxic respiratory failure. He failed multiple weaning trials and therefore, he underwent tracheostomy tube placement successfully as well as percutaneous gastrostomy tube placement successfully. 3. He has marked leukocytosis that is improving; however, he continued to be anemic with stable hemoglobin and hematocrit. 4. Thrombocytopenia with a platelet count that steadily dropped. Most recent platelet count up to 147,000. 5. Acute respiratory distress syndrome. 6. Acute exacerbation of chronic obstructive pulmonary disease. 7. COVID-19 pneumonia. 8. Atrial fibrillation with rapid ventricular response, rate controlled. He is off his heparin as well as Plavix. 9. The patient has undergone cardiac catheterization the second time. It did show that the patient has recanalized his right coronary artery, for which he was started on Plavix and aspirin. 10. The patient has tracheostomy tube placed successfully as well as gastrostomy tube. He is now on tube feeding and water flushes. Most of his medications are given through his gastrostomy tube except his IV antibiotic. 11. His right upper extremity is markedly swollen; however, he has a PICC line in that extremity. PLAN: Continue with mechanical ventilation and wean as tolerated. Continue with nutrition support through the gastrostomy tube. Continue IV antibiotic. Continue with sedation. DVT and GI prophylaxis. His insurance has authorized the transfer to [facility]; however, no beds are available, therefore to discharge him today. ALEXANDER DR: Vannessa TID: [id number]
--- NOTE | 2021-09-20 09:55 | PDOC ---
PULMONARY PROGRESS NOTES DATE: 09/20/21 TIME: 09:52 Subjective Patient is currently on pressure support of 16--tolerating well Status post tracheostomy and PEG placement No overnight concerns Vitals Vital Signs Date Time Temp Pulse Resp B/P (MAP) Pulse Ox O2 Delivery O2 Flow Rate FiO2 09/20/21 08:15 99 Ventilator 09/20/21 06:00 72 22 137/81 09/20/21 04:00 98.9 98.9 09/19/21 09:28 4.0 Comments Unable to obtain review of systems secondary to current clinical state, tracheostomy HEENT: Other (trach midline ) Lungs: Clear Cardiovascular: S1, S2 Abdomen: Soft, Non-tender Extremities: No Edema Skin: Warm Labs Laboratory Tests Test 09/19/21 07:45 09/19/21 11:45 09/20/21 06:00 09/20/21 08:05 O2 Saturation 97 % (92-99) 97 % (92-99) Arterial Blood pH 7.53 (7.35-7.45) 7.55 (7.35-7.45) Arterial Blood pCO2 at Patient Temp 43 mmHg (35-46) 41 mmHg (35-46) Arterial Blood pO2 at Patient Temp 98 mmHg (65-108) 100 mmHg (65-108) Arterial Blood HCO3 35 mmol/L (21-28) 35 mmol/L (21-28) Arterial Blood Base Excess 11 mmol/L (-3-3) 12 mmol/L (-3-3) FiO2 35 35% ac 22 400 5 White Blood Count 11.2 x10^3/uL (4.0-11.0) 9.8 x10^3/uL (4.0-11.0) Red Blood Count 2.68 x10^6/uL (4.30-5.70) 2.49 x10^6/uL (4.30-5.70) Hemoglobin 7.6 g/dL (13.0-17.5) 7.2 g/dL (13.0-17.5) Hematocrit 23.5 % (39.0-53.0) 21.7 % (39.0-53.0) Mean Corpuscular Volume 88 fL (79-100) 87 fL (79-100) Mean Corpuscular Hemoglobin 28 pg (25-35) 29 pg (25-35) Mean Corpuscular Hemoglobin Concent 33 g/dL (31-37) 33 g/dL (31-37) Red Cell Distribution Width 15.9 % (11.5-14.5) 16.0 % (11.5-14.5) Platelet Count 196 x10^3/uL (140-400) 227 x10^3/uL (140-400) Sodium Level 141 mmol/L (136-145) 142 mmol/L (136-145) Potassium Level 3.0 mmol/L (3.5-5.1) 2.9 mmol/L (3.5-5.1) Chloride Level 99 mmol/L (98-107) 102 mmol/L (98-107) Carbon Dioxide Level 35 mmol/L (21-32) 37 mmol/L (21-32) Anion Gap 7 (6-14) 3 (6-14) Blood Urea Nitrogen 15 mg/dL (8-26) 18 mg/dL (8-26) Creatinine 0.6 mg/dL (0.7-1.3) 0.5 mg/dL (0.7-1.3) Estimated GFR (Cockcroft-Gault) 136.1 167.9 Glucose Level 113 mg/dL (70-99) 127 mg/dL (70-99) Calcium Level 8.2 mg/dL (8.5-10.1) 8.4 mg/dL (8.5-10.1) BUN/Creatinine Ratio 36 (6-20) Total Bilirubin 0.4 mg/dL (0.2-1.0) Aspartate Amino Transf (AST/SGOT) 54 U/L (15-37) Alanine Aminotransferase (ALT/SGPT) 75 U/L (16-63) Alkaline Phosphatase 134 U/L (46-116) Total Protein 5.6 g/dL (6.4-8.2) Albumin 1.4 g/dL (3.4-5.0) Albumin/Globulin Ratio 0.3 (1.0-1.7) Laboratory Tests Test 09/19/21 11:45 09/20/21 06:00 09/20/21 08:05 White Blood Count 11.2 x10^3/uL (4.0-11.0) 9.8 x10^3/uL (4.0-11.0) Red Blood Count 2.68 x10^6/uL (4.30-5.70) 2.49 x10^6/uL (4.30-5.70) Hemoglobin 7.6 g/dL (13.0-17.5) 7.2 g/dL (13.0-17.5) Hematocrit 23.5 % (39.0-53.0) 21.7 % (39.0-53.0) Mean Corpuscular Volume 88 fL (79-100) 87 fL (79-100) Mean Corpuscular Hemoglobin 28 pg (25-35) 29 pg (25-35) Mean Corpuscular Hemoglobin Concent 33 g/dL (31-37) 33 g/dL (31-37) Red Cell Distribution Width 15.9 % (11.5-14.5) 16.0 % (11.5-14.5) Platelet Count 196 x10^3/uL (140-400) 227 x10^3/uL (140-400) Sodium Level 141 mmol/L (136-145) 142 mmol/L (136-145) Potassium Level 3.0 mmol/L (3.5-5.1) 2.9 mmol/L (3.5-5.1) Chloride Level 99 mmol/L (98-107) 102 mmol/L (98-107) Carbon Dioxide Level 35 mmol/L (21-32) 37 mmol/L (21-32) Anion Gap 7 (6-14) 3 (6-14) Blood Urea Nitrogen 15 mg/dL (8-26) 18 mg/dL (8-26) Creatinine 0.6 mg/dL (0.7-1.3) 0.5 mg/dL (0.7-1.3) Estimated GFR (Cockcroft-Gault) 136.1 167.9 Glucose Level 113 mg/dL (70-99) 127 mg/dL (70-99) Calcium Level 8.2 mg/dL (8.5-10.1) 8.4 mg/dL (8.5-10.1) BUN/Creatinine Ratio 36 (6-20) Total Bilirubin 0.4 mg/dL (0.2-1.0) Aspartate Amino Transf (AST/SGOT) 54 U/L (15-37) Alanine Aminotransferase (ALT/SGPT) 75 U/L (16-63) Alkaline Phosphatase 134 U/L (46-116) Total Protein 5.6 g/dL (6.4-8.2) Albumin 1.4 g/dL (3.4-5.0) Albumin/Globulin Ratio 0.3 (1.0-1.7) O2 Saturation 97 % (92-99) Arterial Blood pH 7.55 (7.35-7.45) Arterial Blood pCO2 at Patient Temp 41 mmHg (35-46) Arterial Blood pO2 at Patient Temp 100 mmHg (65-108) Arterial Blood HCO3 35 mmol/L (21-28) Arterial Blood Base Excess 12 mmol/L (-3-3) FiO2 35% ac 22 400 5 Comments Chest x-ray reviewed 09/12/2021. Diffuse bilateral interstitial infiltrates. Increased volume loss left lower lobe. CT chest abdomen and pelvis reviewed. Dated 09/10/2021 Impression: 1. Left lower lobe airspace consolidation superimposed on diffuse groundglass opacity with emphysematous and fibrotic change. Findings suspected to represent multifocal infectious process. 2. Infrarenal aortic aneurysm measuring 3.4 cm diameter. 3. Distended gallbladder without wall thickening. Correlate for right upper quadrant symptoms, consider acalculous cholecystitis in the setting of prolonged illness. Impression . 1. Acute hypoxic respiratory failure secondary to COVID-19 pneumonia, acute respiratory distress syndrome and possible underlying fibrosis and emphysema., Extubated 08/20, reintubated 08/23 status post CODE BLUE/semi-CODE BLUE on 09/05. Status post tracheostomy 09/13/[address] chest. Reviewed dated 09/10/2021. Left lower lobe consolidation versus atelectasis. Evidence of possible mild fibrosis. There is evidence of pneumatoceles related to Covid. 3. New sepsis. Continues to have fever. White cell count trending down. CT chest with left lower lobe consolidation, doubt the source of fever. CT abdomen with acalculous cholecystitis. Could be the source. 4. Suspected underlying severe chronic obstructive pulmonary disease. 5. COVID-19 viral pneumonia.--- Covid recovered 6. Abnormal chest x-ray with bilateral diffuse infiltrates related to COVID-19 viral pneumonia.--- Covid recovered 7. Patient reintubated 08/23, status post CODE BLUE 8. Abnormal x-ray from 2/2, possible ARDS, possible pulmonary edema, possible aspiration 9. ST elevation MD status post intra-aortic balloon pump--08/23/2021 10. Emergent cardiac catheterization revealing 90% stenotic lesion 11. Echocardiogram revealing ejection fraction of 35 to 40% pulmonary artery pressure of 34 inferior septal wall hypokinesis 12. MRSA bacteremia, lines removed. 13. Necrotic toe left second, suspect related COVID 14. Anemia Cardiac catheterization 08/30 Due to large vessel size a decision was made to defer stenting at this time for continued medical therapy. After the patient is fully extubated and depending on symptoms could consider PCI. Conclusion 1. Recanalized right coronary artery with brisk blood flow. 2. Residual proximal 70% RCA stenosis with significant ectasia of the RCA measuring up to 6.25 mm. 3. Normal left ventricular filling pressures. Recommendations 1. Continue aspirin, Plavix and heparin drip. 2. Continue plans for extubation. 3. After patient is extubated and stabilized depending on symptoms we will consider high risk PCI with specialized MegaTron stent given the large vessel size. Plan . Updated 09/20/2021 Continue current ventilatory support, currently on pressure support, reduce port from 16-14 Status post tracheostomy and PEG tube placement Bronchodilators Continue antibiotics per infectious disease Hypokalemia per PCP Follow cardiology recommendations Social work following [facility] DVT/GI prophylaxis: Lovenox/Pepcid Discussed with RN and RT Full code Critical care time 30 minutes Updated 09/19/2021 Continue current ventilatory support, currently on assist control mode, plan for CPAP trial once discontinuation of sedation--22/400/5/35% Status post tracheostomy and PEG tube placement Bronchodilators DC propofol, decrease dose of fentanyl Continue antibiotics per infectious disease Follow cardiology recommendations Awaiting insurance approval for discharge to LT[facility]--[facility] DVT/GI prophylaxis: Lovenox/Pepcid Discussed with RN and RT Full code Updated 09/18 Continue present assist-control mode. Oxygen requirement has improved. Patient developed new sepsis , has clinically improved. Status post tracheostomy 09/13/2021 Off Versed. On low-dose propofol and fentanyl. Off steroids Broad-spectrum antibiotics per ID. Leukocytosis is resolved. ABG noted Blood cultures negative. C. difficile negative Follow GI recommendations post PEG. Discussed with RN RT Discussed with at the bedside today. anticipate LTAC following insurance approval Updated 09/17 Continue present assist-control mode. Oxygen requirement has improved. Patient developed new sepsis , has clinically improved. Status post tracheostomy 09/13/2021 Off Versed. Not fully awake. continue to wean fentanyl and assess for improvement in mental status. Off steroids Broad-spectrum antibiotics per ID. Leukocytosis is resolved. ABG noted Blood cultures negative. C. difficile negative I doubt left lower lobe atelectasis/consolidation is the etiology for marked leukocytosis. Acalculous cholecystitis could be the source. Follow GI recommendations. Discussed with RN RT Discussed with at the bedside today. PEG tube today anticipate LTAC following insurance approval MICHELLE KNOWLES MD Sep 20, 2021 09:55
--- NOTE | 2021-09-20 09:55 | NUR ---
SS following up with discharge planning. SS reviewed pt chart and discussed with pt RN. Pt is currently on the vent at 35%. Trach placed on 09/13/2021. Peg placed on 09/17/2021. COVID19 recovered. Pt on Fentanyl. Pt on IV Meropenem. Pt accepted at [facility], ; fax [phone]. Insurance approval received. Discharge orders and clinical updates phoned and faxed to [facility]. Packet and ambulance form placed on the chart. Pt will discharge today and go to [facility] between 1230 and 1300 via [facility] transport. Pt's RN and pt's spouse notified.
[2021-09-20] MEDS ORDERED: POTASSIUM CHLORIDE 20MEQ 100 ML IV SCH (10:00)
--- NOTE | 2021-09-20 10:28 | PDOC ---
ISIS GARCIA BARRELHEAD INSPECTOR 09/20/21 1028: CARDIO Progress Notes Date and Time Date of Service 09/20/2021 Time of Evaluation 1020 Subjective Subjective: Other (unobtainable) Vitals Vitals Vital Signs Date Time Temp Pulse Resp B/P (MAP) Pulse Ox O2 Delivery O2 Flow Rate FiO2 09/20/21 08:15 99 Ventilator 09/20/21 06:00 72 22 137/81 09/20/21 04:00 98.9 98.9 09/19/21 09:28 4.0 Weight Weight [ ] Input and Output Intake and Output Intake and Output 09/20/21 07:00 Intake Total 1666 ml Output Total 820 ml Balance 846 ml Intake Oral 0 ml IV Total 210 ml Tube Feeding 828 ml Other 628 ml Output Urine Total 820 ml Laboratory Labs Laboratory Tests Test 09/19/21 11:45 09/20/21 06:00 09/20/21 08:05 White Blood Count 11.2 x10^3/uL (4.0-11.0) 9.8 x10^3/uL (4.0-11.0) Red Blood Count 2.68 x10^6/uL (4.30-5.70) 2.49 x10^6/uL (4.30-5.70) Hemoglobin 7.6 g/dL (13.0-17.5) 7.2 g/dL (13.0-17.5) Hematocrit 23.5 % (39.0-53.0) 21.7 % (39.0-53.0) Mean Corpuscular Volume 88 fL (79-100) 87 fL (79-100) Mean Corpuscular Hemoglobin 28 pg (25-35) 29 pg (25-35) Mean Corpuscular Hemoglobin Concent 33 g/dL (31-37) 33 g/dL (31-37) Red Cell Distribution Width 15.9 % (11.5-14.5) 16.0 % (11.5-14.5) Platelet Count 196 x10^3/uL (140-400) 227 x10^3/uL (140-400) Sodium Level 141 mmol/L (136-145) 142 mmol/L (136-145) Potassium Level 3.0 mmol/L (3.5-5.1) 2.9 mmol/L (3.5-5.1) Chloride Level 99 mmol/L (98-107) 102 mmol/L (98-107) Carbon Dioxide Level 35 mmol/L (21-32) 37 mmol/L (21-32) Anion Gap 7 (6-14) 3 (6-14) Blood Urea Nitrogen 15 mg/dL (8-26) 18 mg/dL (8-26) Creatinine 0.6 mg/dL (0.7-1.3) 0.5 mg/dL (0.7-1.3) Estimated GFR (Cockcroft-Gault) 136.1 167.9 Glucose Level 113 mg/dL (70-99) 127 mg/dL (70-99) Calcium Level 8.2 mg/dL (8.5-10.1) 8.4 mg/dL (8.5-10.1) BUN/Creatinine Ratio 36 (6-20) Total Bilirubin 0.4 mg/dL (0.2-1.0) Aspartate Amino Transf (AST/SGOT) 54 U/L (15-37) Alanine Aminotransferase (ALT/SGPT) 75 U/L (16-63) Alkaline Phosphatase 134 U/L (46-116) Total Protein 5.6 g/dL (6.4-8.2) Albumin 1.4 g/dL (3.4-5.0) Albumin/Globulin Ratio 0.3 (1.0-1.7) O2 Saturation 97 % (92-99) Arterial Blood pH 7.55 (7.35-7.45) Arterial Blood pCO2 at Patient Temp 41 mmHg (35-46) Arterial Blood pO2 at Patient Temp 100 mmHg (65-108) Arterial Blood HCO3 35 mmol/L (21-28) Arterial Blood Base Excess 12 mmol/L (-3-3) FiO2 35% ac 22 400 5 Microbiology Micro Microbiology 09/05/21 Urine Culture - Final, Complete 09/05/21 Blood Culture - Final, Complete NO GROWTH AFTER 5 DAYS 08/23/21 Respiratory Culture Gram Stain - Final, Complete 08/23/21 Respiratory Culture - Final, Complete Physical Exam HEENT: Other (supple, tracheostomy, tracking with eyes) Chest: Symmetric LUNGS: Other (MV with tracheostomy) Heart: RRR (SR) Abdomen: Other (PEG in place, soft) Extremities: Other (Bilateral UE and LE pitting edema . Eschar to left foot, second toe) Neurology: other (lethargic) Assessment Assessment 1. S/P cardiac arrest; multifactorial. Noted with VT shock x1. approximately <3 min to ROSC. 2. Acute on chronic respiratory failure with COVID PNA, ARDS. unable to be weaned from vent. CXR with worsening consolidation, PNA. s/p tracheostomy 3. CAD, inferior STEMI with embolic disease. Repeat LHC showed recanalized RCA with brisk blood flow. Residual proximal 70% RCA stenosis with significant ectasia of the RCA 4. Cardiogenic shock; IABP removed. improved 5. Acute on chronic systolic CHF, ICM: EF at 35-40%. improved 6. AFIB RVR: maintaining SR 7. Bradyarrhythmia; resolved. 8. Hyperlipidemia; statin 9. Black distal phalanx to left 2nd toe: possibly r/t to covid-19. no significant PAD per duplex 10. Leukocytosis, fevers, sepsis. CT abdomen/pelvis with gallbladder distention, but US without evidence of cholecystitis. Now leukopenic. Per PCP 11. Anemia; s/p transfusion. hgb 7.2 12. HTN: better controlled Recommendations Continue low dose coreg and lisinopril. No bradycardia so far. Lasix PRN Continue Amiodarone for rhythm maintenance Aspirin, Statin therapy. No plavix for now with persistent anemia. Will transfuse today 1U, lasix after Ongoing support Secondary prevention measures Justicifation of Admission Dx: Justifications for Admission: Justification of Admission Dx: N/A TEDDY ANGLIN MD 09/20/21 1425: CARDIO Progress Notes Plan Plan The patient was seen and interviewed as well as examined at the bedside. The chart was reviewed. The case was discussed. Agree with the plan of care. ISIS GARCIA APRN Sep 20, 2021 10:28 TEDDY ANGLIN MD Sep 20, 2021 14:25
[2021-09-20] MEDS ORDERED: POTASSIUM BICARB 20 MEQ EFFERVESCENT TABLET. PEG ONE ×2 (10:30→11:00)
--- NOTE | 2021-09-20 10:36 | PDOC ---
Date of Service: DATE: 09/20/21 TIME: 10:34 Subjective: Subjective: says to go to [facility] today, no issues w/ PEG she's aware of, tube feeds currently held to give potassium. Objective: Vital Signs: Vital Signs Date Time Temp Pulse Resp B/P (MAP) Pulse Ox O2 Delivery O2 Flow Rate FiO2 09/20/21 08:15 99 Ventilator 09/20/21 06:00 72 22 137/81 09/20/21 04:00 98.9 98.9 09/19/21 09:28 4.0 Labs: Laboratory Tests Test 09/19/21 11:45 09/20/21 06:00 09/20/21 08:05 White Blood Count 11.2 x10^3/uL 9.8 x10^3/uL Red Blood Count 2.68 x10^6/uL 2.49 x10^6/uL Hemoglobin 7.6 g/dL 7.2 g/dL Hematocrit 23.5 % 21.7 % Mean Corpuscular Volume 88 fL 87 fL Mean Corpuscular Hemoglobin 28 pg 29 pg Mean Corpuscular Hemoglobin Concent 33 g/dL 33 g/dL Red Cell Distribution Width 15.9 % 16.0 % Platelet Count 196 x10^3/uL 227 x10^3/uL Sodium Level 141 mmol/L 142 mmol/L Potassium Level 3.0 mmol/L 2.9 mmol/L Chloride Level 99 mmol/L 102 mmol/L Carbon Dioxide Level 35 mmol/L 37 mmol/L Anion Gap 7 3 Blood Urea Nitrogen 15 mg/dL 18 mg/dL Creatinine 0.6 mg/dL 0.5 mg/dL Estimated GFR (Cockcroft-Gault) 136.1 167.9 Glucose Level 113 mg/dL 127 mg/dL Calcium Level 8.2 mg/dL 8.4 mg/dL BUN/Creatinine Ratio 36 Total Bilirubin 0.4 mg/dL Aspartate Amino Transf (AST/SGOT) 54 U/L Alanine Aminotransferase (ALT/SGPT) 75 U/L Alkaline Phosphatase 134 U/L Total Protein 5.6 g/dL Albumin 1.4 g/dL Albumin/Globulin Ratio 0.3 O2 Saturation 97 % Arterial Blood pH 7.55 Arterial Blood pCO2 at Patient Temp 41 mmHg Arterial Blood pO2 at Patient Temp 100 mmHg Arterial Blood HCO3 35 mmol/L Arterial Blood Base Excess 12 mmol/L FiO2 35% ac 22 400 5 PE: GEN: chronically ill LUNGS: trach/vent ABD: soft, PEG in place NEURO/PSYCH: eyes open A/P: Resp failure s/p trach and PEG -- Plans to DC to [facility]. Justicifation of Admission Dx: Justifications for Admission: Justification of Admission Dx: N/A GEORGIA GUILLEN Sep 20, 2021 10:36
[2021-09-20] MEDS: ENOXAPARIN 40 MG/0.4 ML SYRINGE. SQ SCH (11:00)
[2021-09-20] MEDS ORDERED: FUROSEMIDE 40 MG/4 ML VIAL. IVP ONE (11:00)
[2021-09-20] MEDS: levETIRAcetam 500 MG/5 ML ORAL SOLUTION. PEG SCH (11:03)
[2021-09-20] MEDS: FAMOTIDINE 20 MG TABLET. PO SCH (11:04)
[2021-09-20] MEDS: LISINOPRIL 5 MG TABLET. PO SCH (11:05)
--- NOTE | 2021-09-20 11:45 | NUR ---
Adan Anderson [employer] stated he wanted an order for 1 unit PRBC to be given, pt does not have current type and screen, is not actively bleeding and hgb above 7 and hemodynamically stable. pt is scheduled for transport across the parking lot to [facility] at [address]. Called Dr Dangelo and spoke with him, he stated not to hold up transfer for blood and that he would order type and screen over there once admitted.
--- NOTE | 2021-09-20 14:30 | NUR ---
Informed to administer Lasix after blood infused. Blood order as well as lasix DC'd as noted in earlier documentation. Questions on sed/med infusion per [facility] pharmacist answered. Transfer to [facility] via amb cart + ventilator. All potassium supplements given prior to transfer. Informed by [facility] staff "repeat lab " will be done on admission there. Condition stable. Aware /opens eyes and tracks,attempts conversation. Informed on Passe-Meur valve use. Very weak, PROM per [facility] daily
--- NOTE | 2021-09-26 13:36 | DS ---
DATE OF DISCHARGE: 09/20/2021 HOSPITAL COURSE: The patient is a 65-year-old male patient who was seen initially in the Emergency Room of [facility] on 07/29/2021 with a complaint of shortness of breath. He stated also he has a nonproductive cough, loss of taste and smell together with nausea and vomiting. He was placed on nonrebreather mask and due to hypoxia and he had bilateral infiltrate with hyponatremia, lactic acidosis and apparently he was also in congestive heart failure with markedly elevated BNP and leukocytosis, indicating sepsis. He chose to sign against medical advice at that time; however, he returned to the Emergency Department with exacerbation of his symptoms; however, he denied any chest pain. By the time, he arrived to the Emergency Room, his oxygen saturation was only 61%. He was again placed on nonrebreather mask and his oxygen saturation has risen to 92-93%. He was extensively investigated in the Emergency Room, has had lab work and imaging studies. Lab work showed that he has marked leukocytosis with a white cell count of 19,000, thrombocytosis. His arterial blood gases on 07/29 showed a pH of 7.45, pCO2 of 31, pO2 of 58 and his chemistry showed severe hyponatremia with serum sodium is down to 114 mEq per liter with lactic acidosis; however, his TSH and serum cortisol were well within normal range. Apparently, his confusion has steadily worsened and he was intubated and eventually he was transferred to [facility] ICU to continue mechanical ventilation. He has tested positive for COVID and his chest x-ray showed diffuse bilateral interstitial infiltrate. CT scan of the chest done on 07/29 also showed that diffuse bilateral infiltrate. There are areas of edematous changes, worse in the upper lobes. There are some ground glass infiltrates and pleural thickening on the right side. Basically, the patient has had very prolonged course in the ICU and he was complicated by pneumothorax. He was high risk for pneumothorax due to emphysematous blebs especially in the upper lobes and he was treated with IV antibiotic and steroids together with remdesivir and eventually he was extubated and on the same day unfortunately, he developed inferior wall infarction and also septic shock. He was diagnosed with inferior wall infarction, was taken to the [facility] where he was found to have occluded right coronary artery for which he was started on heparin, Plavix and aspirin. While on the ventilator, he continued to have episodes of sinus bradycardia, bigeminy as well as atrial fibrillation with rapid ventricular response and eventually as he continued to be unable to be weaned off the ventilator, he underwent tracheostomy tube placement and gastrostomy tube placement and decision was made too. Once stabilized, he was transferred to [facility] to continue with mechanical ventilation. Continue with nutritional support, IV antibiotic and to hopefully start the process of physical and occupational therapy. On the day of discharge, the patient was resting slightly propped up in bed, in no apparent respiratory distress. He was awake, alert, opens eyes, tracks and responds appropriately. He continued to be on mechanical ventilation, maintaining his oxygen saturation at 99% on FiO2 of 35%. He is on minimal dose of fentanyl and his Versed and propofol has been discontinued. He is off all vasopressors. PHYSICAL EXAMINATION: GENERAL: When I examined him, he was pale, but not jaundiced, cyanosed, no lymphadenopathy, no thyromegaly, no jugular venous distention. No lower limb edema. VITAL SIGNS: His heart rate was 72, blood pressure was 127/81, temperature was 98.9, respiratory rate was 22 and oxygen saturation was 99% on FiO2 of 35%. HEAD, EYES, EARS, NOSE, AND THROAT: Normocephalic, atraumatic. NECK: Supple, with tracheostomy tube in place. HEART: Showed normal first and second heart sounds. No gallop, rub or murmur. CHEST: Clear to auscultation. No crepitation or rhonchi. ABDOMEN: Distended, soft with gastrostomy tube in place. NEUROLOGIC: He is definitely more awake, responding appropriately. He has marked critical illness myopathy. He has also an indwelling Breumen catheter. His intake over the last 24 hours was incompletely recorded. However, his output was 2720. LABORATORY DATA: His lab work on the day of discharge showed that his white cell count was 9800, hemoglobin 7.2, hematocrit 21, MCV 87 and platelet count 227,000. His chemistry showed a serum sodium 142, potassium 2.9. chloride 102, bicarbonate 37, anion gap of 3, BUN 18, creatinine 0.5. Estimated GFR was 167 mL per minute. His glucose 127, calcium was 8.4. Total bilirubin normal. AST, ALT, alkaline phosphatase slightly elevated. Total protein 5.6, albumin was 1.4. DISCHARGE MEDICATIONS: He was transferred to [facility] to continue on furosemide 40 mg IV, levetiracetam 500 mg IV twice a day, Plavix 75 mg once a day. He is on famotidine 20 mg IV twice a day, potassium, furosemide, Protonix 3.125 mg twice a day, lansoprazole 30 mg twice a day. He was on meropenem 1 gram IV every 6 hours. FINAL DISCHARGE DIAGNOSES: 1. The patient is status post cardiac arrest, likely due to hypoxia, COVID-19 pneumonia as well as acute inferior wall myocardial infarction. The patient went into ventricular tachycardia and was shocked and entered into ventricular fibrillation, treated with CPR and epinephrine with return of spontaneous circulation. He continues to have episodes of bradycardia and bigeminy as well as atrial fibrillation with rapid ventricular response, although he is mostly in sinus rhythm. 2. Acute on chronic hypoxic respiratory failure. The patient has failed multiple weaning trials and therefore, he underwent tracheostomy tube placement successfully as well as percutaneous gastrostomy tube placement successfully. 3. He has marked leukocytosis that is improving; however, he continued to have anemia, although his hemoglobin and hematocrit has stabilized. 4. Thrombocytopenia with a platelet count, has steadily dropped. Most recent platelet count was 147,000. 5. Acute respiratory distress syndrome. 6. Acute exacerbation of chronic obstructive pulmonary disease. 7. COVID-19 pneumonia. 8. Atrial fibrillation with rapid ventricular response, rate controlled. He is off his heparin as well as Plavix. 9. The patient had undergone cardiac catheterization for the second time, it did show that the patient has recanalized his right coronary artery for which he was started on Plavix and aspirin. 10. The patient has a tracheostomy tube placed successfully as well as gastrostomy tube and therefore, the patient was transferred to [facility] to continue with mechanical ventilation, wean as tolerated. Continue nutritional support, the gastrostomy tube. We will start the process of physical, occupational and speech therapy. PRUDENCIO DR: Vannessa TID: [id number]
== END 2021-09-20 12:40 | DRG 3 ==
LOC: 1 WEST ICU 11:10 → EDSEX 11:10
PROVIDERS: ADMIT Internal Medicine; ATTEND Internal Medicine
PROC: 5A1955Z Respiratory Ventilation, Greater than 96 Consecutive Hours (ICD-10-PCS; principal; 2021-07-31)
PROC: 02HV33Z Insertion of Infusion Device into Superior Vena Cava, Percutaneous Approach (ICD-10-PCS; 2021-08-02)
PROC: 5A09357 Assistance with Respiratory Ventilation, Less than 24 Consecutive Hours, Continuous Positive Airway Pressure (ICD-10-PCS; 2021-08-22)
PROC: 5A02210 Assistance with Cardiac Output using Balloon Pump, Continuous (ICD-10-PCS; 2021-08-23)
PROC: B2111ZZ Fluoroscopy of Multiple Coronary Arteries using Low Osmolar Contrast (ICD-10-PCS; 2021-08-23)
PROC: 4A023N7 Measurement of Cardiac Sampling and Pressure, Left Heart, Percutaneous Approach (ICD-10-PCS; 2021-08-23)
PROC: 02JA3ZZ Inspection of Heart, Percutaneous Approach (ICD-10-PCS; 2021-08-23)
PROC: 5A12012 Performance of Cardiac Output, Single, Manual (ICD-10-PCS; 2021-08-23)
PROC: 0BH17EZ Insertion of Endotracheal Airway into Trachea, Via Natural or Artificial Opening (ICD-10-PCS; 2021-08-23)
PROC: 5A09357 Assistance with Respiratory Ventilation, Less than 24 Consecutive Hours, Continuous Positive Airway Pressure (ICD-10-PCS; 2021-08-23)
PROC: 4A023N7 Measurement of Cardiac Sampling and Pressure, Left Heart, Percutaneous Approach (ICD-10-PCS; 2021-08-30)
PROC: B215YZZ Fluoroscopy of Left Heart using Other Contrast (ICD-10-PCS; 2021-08-30)
PROC: B211YZZ Fluoroscopy of Multiple Coronary Arteries using Other Contrast (ICD-10-PCS; 2021-08-30)
PROC: B240ZZ3 Ultrasonography of Single Coronary Artery, Intravascular (ICD-10-PCS; 2021-08-30)
PROC: 30233N1 Transfusion of Nonautologous Red Blood Cells into Peripheral Vein, Percutaneous Approach (ICD-10-PCS; 2021-09-12)
PROC: 0B110F4 Bypass Trachea to Cutaneous with Tracheostomy Device, Open Approach (ICD-10-PCS; 2021-09-13)
PROC: 0DH63UZ Insertion of Feeding Device into Stomach, Percutaneous Approach (ICD-10-PCS; 2021-09-17)
PROC: 5A09357 Assistance with Respiratory Ventilation, Less than 24 Consecutive Hours, Continuous Positive Airway Pressure (ICD-10-PCS; 2021-09-19)
PROC: 5A09357 Assistance with Respiratory Ventilation, Less than 24 Consecutive Hours, Continuous Positive Airway Pressure (ICD-10-PCS; 2021-09-20)
DX: A41.89 Other specified sepsis (principal); U07.1 COVID-19; J12.82 Pneumonia due to coronavirus disease 2019; J96.01 Acute respiratory failure with hypoxia; E43 Unspecified severe protein-calorie malnutrition; I21.19 ST elevation (STEMI) myocardial infarction involving other coronary artery of inferior wall; I46.9 Cardiac arrest, cause unspecified; I49.01 Ventricular fibrillation; I50.23 Acute on chronic systolic (congestive) heart failure; J96.21 Acute and chronic respiratory failure with hypoxia; K72.00 Acute and subacute hepatic failure without coma; R57.0 Cardiogenic shock; E87.0 Hyperosmolality and hypernatremia; E87.1 Hypo-osmolality and hyponatremia; G93.1 Anoxic brain damage, not elsewhere classified; I47.2 Ventricular tachycardia; K92.1 Melena; B95.62 Methicillin resistant Staphylococcus aureus infection as the cause of diseases classified elsewhere; B95.7 Other staphylococcus as the cause of diseases classified elsewhere; B96.89 Other specified bacterial agents as the cause of diseases classified elsewhere; D64.9 Anemia, unspecified; D69.6 Thrombocytopenia, unspecified; D75.839 Thrombocytosis, unspecified; E78.5 Hyperlipidemia, unspecified; F10.10 Alcohol abuse, uncomplicated; F32.A Depression, unspecified; I11.0 Hypertensive heart disease with heart failure; I25.10 Atherosclerotic heart disease of native coronary artery without angina pectoris; I25.2 Old myocardial infarction; I25.5 Ischemic cardiomyopathy; I48.0 Paroxysmal atrial fibrillation; J43.9 Emphysema, unspecified; J98.4 Other disorders of lung; K21.9 Gastro-esophageal reflux disease without esophagitis; K81.9 Cholecystitis, unspecified; K82.8 Other specified diseases of gallbladder; R04.0 Epistaxis; Z82.49 Family history of ischemic heart disease and other diseases of the circulatory system; Z87.891 Personal history of nicotine dependence; Z95.5 Presence of coronary angioplasty implant and graft; Z68.26 Body mass index [BMI] 26.0-26.9, adult
CPT/HCPCS: 33967; 36415; 36430; 36569; 36600; 37252; 43246; 70450; 71045; 71250; 74018; 74176; 76705; 80048; 80053; 80061; 80202; 81001; 82550; 82565; 82805; 82962; 83605; 83735; 84145; 84478; 84484; 85007; 85018; 85025; 85027; 85347; 85520; 85610; 85651; 86850; 86900; 86901; 86920; 87040; 87070; 87077; 87086; 87186; 87493; 93005; 93306; 93454; 93458; 93926; 94002; 94003; 94640; 94660; A4618; A4930; A6402; A7521; A7526; C1725; C1753; C1894; C9113; J0171; J0282; J0330; J0461; J0878; J1100; J1160; J1630; J1644; J1650; J1815; J1940; J1953; J2020; J2185; J2248; J2250; J2370; J2543; J2704; J2920; J2930; J2997; J3010; J3370; J3480; J3490; J7040; J7050; J7060; J7121; P9016; Q9967; U0003; C8929; G0378; J3246; J7030

== ENCOUNTER → 2021-11-12 | Day surgery (SDC) | payer OTHER ==
[~2021-11-12] VITALS: Ht 182.9 cm; Wt 77.0 kg
[~2021-11-12] MED LIST: AMIO200T53 PO; ASPI-886 PO; ATOR40TA59 PO; CLOP75TA PO; IV RINGERS,LACTATED 1000ML 1,000 ML IV SCH; LEVE500T56 PO; LIDOCAINE 2% PF 5 ML VIAL. ONE; PANT20TA2 PO; PROPOFOL 10 MG/ML (20ML) VIAL. IV ONE
[2021-11-12 13:24] VITALS: BP 149/83
--- NOTE | 2021-11-12 13:43 | PDOC1 ---
History and Physical Date of Admission Date of Admission DATE: 11/12/21 TIME: 13:38 Identification/Chief Complaint Chief Complaint Remove PEG. Source Source: Chart review, Patient History of Present Illness History of Present Illness 65 y/o male who had PEG placed after arrest. Since has recovered ability to swallow and no longer using g-tube. Would like removed. Past Medical History Cardiovascular: AFIB, CAD Pulmonary: COPD, Pneumonia Psych: Addictions, Depression Past Surgical History Past Surgical History: Other (tracheostomy) Family History Family History: Family History Unknown Social History Smoke: No ALCOHOL: other (heavy in the past) Drugs: None Allergies Allergies: Coded Allergies: No Known Drug Allergies (Unverified , 11/12/21) ROS Review of System Otherwise negative. Physical Exam General: Alert, Oriented X3, Cooperative, No acute distress Lungs: Clear to auscultation Heart: S1S2, RRR, no gallops, no murmurs Abdomen: Normal bowel sounds, Soft, No tenderness, No hepatosplenomegaly, No masses, Other (g-tube present; site OK) Rectal Exam: not examined Extremities: No cyanosis, No edema Skin: No significant lesion Neuro: Normal speech, Strength at 5/5 X4 ext, Normal tone, Sensation intact, Cranial nerves 3-12 NL, Reflexes 2+ Psych/Mental Status: Mental status NL, Mood NL Vitals Vitals See nursing record. VTE Prophylaxis Ordered VTE Prophylaxis Devices: No VTE Pharmacological Prophylaxi: No Assessment/Plan Assessment/Plan IMP: OP dysphagia, resolved. REC: EGD/de-PEG. MANUEL WARD MD November 12, 2021 13:43
--- NOTE | 2021-11-12 13:58 | PDOC4 ---
PROCEDURE Procedure EGD/remove PEG Indication: Prior PEG, no longer using. Meds: per anesthesia Findings: E--Healed reflux, uncertain grade. G--Normal save g-tube in body. D--Normal to second portion. --G-tube cut and removed orally. Keren. well. IMP: GERD Successful de-PEG. REC: Continue current meds. Resume diet. 4x4 over stoma prn; typically with close w/in 24 hours. Can f/u with me prn. MANUEL WARD MD November 12, 2021 13:58
[2021-11-12 14:13] VITALS: BP 125/78
== END | disposition home or self-care (01) ==
LOC: ENDOS 13:03
PROVIDERS: ATTEND Internal Medicine Gastroenterology
DX: Z43.1 Encounter for attention to gastrostomy (principal); K21.00 Gastro-esophageal reflux disease with esophagitis, without bleeding; K31.89 Other diseases of stomach and duodenum; I25.10 Atherosclerotic heart disease of native coronary artery without angina pectoris; I48.91 Unspecified atrial fibrillation; J44.9 Chronic obstructive pulmonary disease, unspecified; F32.9 Major depressive disorder, single episode, unspecified; Z79.82 Long term (current) use of aspirin; Z79.899 Other long term (current) drug therapy; Z98.890 Other specified postprocedural states; Z72.89 Other problems related to lifestyle
CPT/HCPCS: 43247; J2704